=== PATIENT | female | born 1970 | race Caucasian/White ===

== ENCOUNTER → 2018-03-03 11:11 | Outpatient (CLI) | payer MEDICAID, SELFPAY ==
[2018-03-03 12:26] LABS: Absolute Lymphocyte Count 2.77 X10^3/ul (0.83-4.51); Absolute Neutrophil Count 4.1 X10^3/uL (2.0-7.7); Basophil# 0.03 X10^3/uL; Basophil% 0.4 % (0-1); Eosinophils% 2.6 % (0-5); Hematocrit 44.7 % (37-47); Lymphocyte # 2.77 X10^3/ul (4.0); Mean Corp Hgb Conc 33.6 g/gl (32-36); Mean Corpuscular Hgb 34.4 pg (27.0-32.0); Mean Corpuscular Volume 102.5 fL (81-99); Mean Platelet Vol. 11.5 fl (6.2-12.0); Monocyte# 0.61 X10^3/uL; Monocyte% 7.9 % (0-10); Neutrophil # 4.08 X10^3/uL (2.7-7.7); Platelet Count 214 K/mm3 (150-450); RBC Distribution Width CV 12.7 % (11.6-14.6); RBC Distribution Width SD 47.1 fl (35.1-43.9); Red Blood Count 4.36 M/mm3 (4.2-5.4); White Blood Count 7.7 K/mm3 (4.4-11.0)
[2018-03-03 12:33] LABS: POSITIVE COUNT NO; POSITIVE DIFFERENTIAL NO; POSITIVE MORPHOLOGY NO
[2018-03-03 12:40] LABS: Color, Urine Yellow (Yellow); Glucose, Dipstick Normal (Normal); Ketone-Dipstick Negative (Negative); Leukocyte Esterase-Dipstick 25 /ul (Negative); Nitrite-Dipstick Negative (Negative); Occult Blood-Urine 10 /ul (Negative); Protein-Dipstick 15 mg/dl (Negative); Urine Bilirubin Dipstick Negative (Negative); Urine Clarity Clear (Clear); Urine Urobilinogen Normal (Normal); Urine pH 6.5 (5.0 - 8.0)
[2018-03-03 12:42] LABS: ALB/GLOB Ratio 0.9 RATIO (0.9-2.4); AST(SGOT) 17 U/L (15-37); Alanine Aminotransfer ALT/SGPT 16 U/L (13-56); Albumin, Serum 3.7 g/dL (3.2-5.0); Alkaline Phosphatase 80 U/L (45-117); Anion Gap 7 (5-15); BUN 15 mg/dL (7-18); Calcium,Total 9.1 mg/dL (8.5-10.1); Chloride 106 mmol/L (98-107); Cholesterol 137 mg/dL (200); EST Glomerular Filtration Rate 63 mL/min (>60); Est Glom Filt Rate - Afr Amer 76 mL/min (>60); Glucose 70 mg/dL (74-106); High Density Lipoprotein 46 mg/dL; Potassium 3.8 mmol/L (3.5-5.1); Protein, Total 7.7 g/dL (6.4-8.2); Sodium Level 142 mmol/L (136-145); Triglycerides 150 mg/dL; Very Low Density Lipoprotein 30 mg/dL (5-40)
[2018-03-03 14:18] LABS: Chlamydia Trachomatis by PCR Negative (Negative); Neisserai gonorrhoeae by PCR Negative (Negative); Probe Check PASS; Sample Adequacy Control PASS; Specimen Processing Control PASS
[2018-03-04 08:13] LABS: HEPATITIS B SURFACE AG Negative (Negative); Hepatitis A AB, Total Negative (Negative); Hepatitis A IgM Antibody Negative (Negative); Hepatitis B Core AB IgM Negative (Negative); Hepatitis B Core Ab Total Positive (Negative); Hepatitis C Ab <0.1 s/co ratio (0.0-0.9)
[2018-03-04 08:40] LABS: Hep B Surface Antibodies Reactive (.)
[2018-03-10 03:58] LABS: Rapid Plasmin Reagin (RPR) NONREACTIVE (NONREACTIVE)
== END ==
PROVIDERS: Family Provider Internal Medicine Infectious Disease; PCP Internal Medicine Infectious Disease; Visit Provider Internal Medicine Infectious Disease
DX: E78.5 Hyperlipidemia, unspecified (principal); B20 Human immunodeficiency virus [HIV] disease
CPT/HCPCS: 36415; 80053; 80061; 81002; 85025; 86592; 86704; 86705; 86706; 86708; 86709; 86803; 87340; 87491; 87536; 87591

== ENCOUNTER 2018-09-16 10:51 | Emergency (ER) | payer MEDICAID, SELFPAY ==
[2018-09-16 10:52] VITALS: BP 101/75; PULSE 96; RESP 14; TEMP 37.9; O2SAT 98
--- NOTE | 2018-09-16 11:05 | EKG12_ITS ---
Test Reason : NAUSEA Blood Pressure : / mmHG Vent. Rate : 112 BPM Atrial Rate : 112 BPM P-R Int : 130 ms QRS Dur : 076 ms QT Int : 324 ms P-R-T Axes : 086 091 090 degrees QTc Int : 442 ms Sinus tachycardia Rightward axis Borderline ECG Confirmed by VINNY CHAUDHRY, ISABELLE ([id number]), fan mail editor LEIDY FRANKLIN ([id number]) on 09/18/2018 2:12:20 PM Referred By: Confirmed By:ISABELLE CASILLAS MD
--- NOTE | 2018-09-16 11:05 | RAD_ITS ---
STUDY: X-RAY CHEST REASON FOR EXAM: Female, 48 years old. Cough TECHNIQUE: Single AP portable view of the chest. COMPARISON: None. FINDINGS: The lungs are clear but hyper expanded. There is no demonstrated pleural abnormality. Normal size heart. Normal mediastinum and vianey. Normal visualized pulmonary arteries. Normal visualized aortic arch and descending thoracic aorta. Normal visualized thoracic spine. Normal visualized ribs, clavicles, and shoulders. There is no demonstrated abnormality of the visualized soft tissue structures of the upper abdomen. RAD/Chest 1 View (Portable) IMPRESSION: No airspace consolidation or pleural effusion. Hyperinflation can suggest chronic obstructive airway disease. Electronically Signed: Dharmesh Cho MD at 11:38 EST , Service support ,
--- NOTE | 2018-09-16 11:07 | ED.VISSUMM ---
- ER Visit Summary Date of Service: 09/16/18 Chief Complaint: Flulike symptoms History of Present Illness: The patient is a 48 F presenting with flulike symptoms. Patient states she has been ill since Tuesday. She has had subjective fever, chills. She has a productive cough. She has nausea with no vomiting. She has diffuse myalgias. She denies shortness of breath. She has chest pain only when she coughs. She also complains of right ear pain. She does have sick contacts. She is HIV positive with undetectable viral load per patient. Physical Examination: Vitals are stable. Temperature 100.3. Alert no acute distress. HEENT exam is unremarkable. TMs obscured by cerumen bilaterally Neck is supple. No meningismus Lungs are clear and equal bilaterally. Heart is regular rate and rhythm. Abdomen is soft nontender nondistended. Extremities are unremarkable. Skin is warm and dry. No rash Remainder of exam is unremarkable. Emergency Department Course and Treatment: Patient was given IV fluids, Zofran, Tylenol. EKG sinus tachycardia rate of 112. CBC normal except white count 3.8, platelet 102. Patient is advised of this finding and need for follow-up. Chemistries unremarkable. Troponin negative. Chest x-ray shows no airspace consolidation or pleural effusion. Hyperinflation can suggest chronic obstructive airway disease. Influenza A positive. On reevaluation, patient is resting comfortably. She is given a prescription for Tessalon Perles. She is advised to follow-up with her primary care physician. Advised return to ED if worsening complaints. Disposition: Discharge home Impression: Influenza This note was generated with [employer] dictation software. It may contain incorrect words, spelling, and punctuation that were not noted in review of the chart prior to signing ED Disposition - Plan for ED Patient: Instructions: ED Flu Prescriptions: Benzonatate [Tessalon Perle] 200 mg PO TID PRN PRN #20 capsule PRN Reason: Cough Referrals: Epi Mcdonald MD [Primary Care Provider] -
[2018-09-16] MEDS: 0.9% Normal Saline 1,000 ML 1000 ML IV (11:16)
[2018-09-16] MEDS: Ondansetron 4 MG/2 ML Vial IV (11:17)
[2018-09-16] MEDS: Ibuprofen 600 MG Tablet PO (11:43)
[2018-09-16 11:44] LABS: Absolute Neutrophil Count 2.8 X10^3/uL (2.0-7.7); Basophil# 0.01 X10^3/uL; Basophil% 0.3 % (0-1); Eosinophil# 0.02 X10^3/uL; Eosinophils% 0.5 % (0-5); Hematocrit 44.7 % (37-47); Hemoglobin 14.7 g/dl (12.0-15.0); Lymphocyte % 15.9 % (19-41); Mean Corp Hgb Conc 32.9 g/gl (32-36); Mean Corpuscular Hgb 33.9 pg (27.0-32.0); Monocyte% 10.6 % (0-10); Neutrophil # 2.75 X10^3/uL (2.7-7.7); Neutrophil % 72.7 % (47-70); Platelet Count 102 K/mm3 (150-450); RBC Distribution Width CV 13.4 % (11.6-14.6); RBC Distribution Width SD 50.4 fl (35.1-43.9); Red Blood Count 4.34 M/mm3 (4.2-5.4); White Blood Count 3.8 K/mm3 (4.4-11.0)
[2018-09-16 11:45] LABS: Differential Indicated SCAN CRITERIA MET; POSITIVE COUNT NO; POSITIVE DIFFERENTIAL YES; POSITIVE MORPHOLOGY NO
[2018-09-16 11:50] LABS: Anion Gap 6 (5-15); BUN 19 mg/dL (7-18); BUN/Creat Ratio 19.3 RATIO (10-20); Calcium,Total 8.1 mg/dL (8.5-10.1); Chloride 109 mmol/L (98-107); Creatinine, Serum 0.98 mg/dL (0.55-1.02); EST Glomerular Filtration Rate 63 mL/min (>60); Est Glom Filt Rate - Afr Amer 77 mL/min (>60); Estimated Creatinine Clearance 57.57 ml/min; Glucose 93 mg/dL (74-106); Potassium 3.8 mmol/L (3.5-5.1); Sodium Level 138 mmol/L (136-145)
[2018-09-16 11:53] LABS: Differential Comment SCANNED
--- NOTE | 2018-09-16 11:56 | ED.RN ---
pos flu a called from the lab. dr tripp aware
--- NOTE | 2018-09-16 12:06 | ED.DEP ---
ED Disposition - Plan for ED Patient: Instructions: ED Flu Prescriptions: Benzonatate [Tessalon Perle] 200 mg PO TID PRN PRN #20 capsule PRN Reason: Cough Referrals: Epi Mcdonald MD [Primary Care Provider] -
[2018-09-16 12:31] VITALS: BP 102/66; PULSE 100; PULSE 101; RESP 16; TEMP 37.6; O2SAT 97; O2SAT 98
== END 2018-09-16 12:35 | disposition home or self-care (01) ==
PROVIDERS: Emergency Provider Emergency Medicine; Family Provider Internal Medicine Infectious Disease; PCP Internal Medicine Infectious Disease
DX: J11.1 Influenza due to unidentified influenza virus with other respiratory manifestations (principal); Z72.0 Tobacco use; Z21 Asymptomatic human immunodeficiency virus [HIV] infection status
CPT/HCPCS: 71045; 80048; 84484; 85025; 87804; 93005; 96361; 96374; 99285; J7030; J2405

== ENCOUNTER 2018-11-25 13:11 | Emergency (ER) | payer MEDICAID, SELFPAY ==
[2018-11-25 13:12] VITALS: BP 105/80; PULSE 110; RESP 16; TEMP 36.7; O2SAT 100; BMI 19.2
--- NOTE | 2018-11-25 13:41 | RAD_ITS ---
STUDY: X-RAY - LEFT SHOULDER REASON FOR EXAM: Female, 48 years old. Fall. Pain and swelling. TECHNIQUE: 4 view(s) of the shoulder. COMPARISON: None. FINDINGS: Normal glenohumeral articulation. Normal acromioclavicular joint. Normal acromion. Normal humeral head and visualized proximal humerus. There is acute distal clavicle fracture with inferior angulation of the distal fragment. The soft tissue structures are unremarkable. Normal visualized pulmonary apex. RAD/Shoulder min 2 Views IMPRESSION: Distal clavicle fracture. Electronically Signed: Bruce Plummer MD at 15:07 EDT , Service support ,
--- NOTE | 2018-11-25 14:25 | ED.DCSUM_ITS ---
- ER Visit Summary Date of Service: 11/25/18 Chief Complaint: Fall History of Present Illness: The patient is a 48 F presenting after fall. Patient states this occurred last night. She states she tripped on uneven sidewalk and fell onto her left shoulder. She does not believe she hit her head or lost consciousness. She was drinking at the time. She tried no medications at home. She is not on anticoagulants. She denies headache. She complains of left shoulder pain that is worse with movement. Denies other complaints. Physical Examination: Vitals are stable. Patient is afebrile. Alert no acute distress. HEENT exam is unremarkable. No evidence of head trauma Neck is supple. Nontender Lungs are clear and equal bilaterally. Heart is regular rate and rhythm. Abdomen is soft nontender nondistended. Extremities left shoulder ecchymosis and painful range of motion. No deformity. NVID. Skin is warm and dry. No focal neurologic deficit. Remainder of exam is unremarkable. Emergency Department Course and Treatment: Left shoulder x-ray shows distal clavicle fracture. Patient was given a sling. She is given prescription for Naprosyn. Advised to follow-up with her primary care physician. Advised return to ED for worsening complaints Disposition: Discharge home Impression: Left distal clavicle fracture This note was generated with [employer] dictation software. It may contain incorrect words, spelling, and punctuation that were not noted in review of the chart prior to signing ED Disposition - Plan for ED Patient: Disposition: Home or Assisted Living Instructions: ED Fx Clavicle Prescriptions: Naproxen [Naprosyn] 500 mg PO BID PRN #20 tablet Referrals: Epi Mcdonald MD [Primary Care Provider] - Ranjith Thompson MD [STAFF PHYSICIAN] -
--- NOTE | 2018-11-25 15:06 | ED.DEP ---
ED Disposition - Plan for ED Patient: Instructions: ED Fx Clavicle Prescriptions: Naproxen [Naprosyn] 500 mg PO BID PRN #20 tablet Referrals: Epi Mcdonald MD [Primary Care Provider] -
--- NOTE | 2018-11-25 15:09 | ED.DEP ---
ED Disposition - Plan for ED Patient: Instructions: ED Fx Clavicle Prescriptions: Naproxen [Naprosyn] 500 mg PO BID PRN #20 tablet Referrals: Epi Mcdonald MD [Primary Care Provider] - Ranjith Thompson MD [STAFF PHYSICIAN] -
[2018-11-25 15:17] VITALS: RESP 18
== END 2018-11-25 15:18 | disposition home or self-care (01) ==
LOC: ED 14:05
PROVIDERS: Emergency Provider Emergency Medicine; Family Provider Internal Medicine Infectious Disease; PCP Internal Medicine Infectious Disease
DX: S42.032A Displaced fracture of lateral end of left clavicle, initial encounter for closed fracture (principal); W18.09XA Striking against other object with subsequent fall, initial encounter; Y93.9 Activity, unspecified; Y92.480 Sidewalk as the place of occurrence of the external cause; Y99.9 Unspecified external cause status; Z72.0 Tobacco use
CPT/HCPCS: 73030; 99283

== ENCOUNTER → 2019-01-24 10:10 | Outpatient (CLI) | payer MEDICAID, SELFPAY ==
[2019-01-24 11:29] LABS: Hematocrit 45.3 % (37-47); Hemoglobin 14.9 g/dl (12.0-15.0); Mean Corp Hgb Conc 32.9 g/gl (32-36); Mean Corpuscular Hgb 33.3 pg (27.0-32.0); Mean Corpuscular Volume 101.3 fL (81-99); Mean Platelet Vol. 11.5 fl (6.2-12.0); Platelet Count 174 K/mm3 (150-450); RBC Distribution Width CV 12.7 % (11.6-14.6); RBC Distribution Width SD 46.9 fl (35.1-43.9); Red Blood Count 4.47 M/mm3 (4.2-5.4); White Blood Count 4.8 K/mm3 (4.4-11.0)
[2019-01-24 11:31] LABS: Scan Indicated on CBC? Y/N NO
[2019-01-24 12:00] LABS: AST(SGOT) 20 U/L (15-37); Alanine Aminotransfer ALT/SGPT 16 U/L (13-56); Albumin, Serum 3.6 g/dL (3.2-5.0); Alkaline Phosphatase 76 U/L (45-117); Anion Gap 4 (5-15); BUN 11 mg/dL (7-18); BUN/Creat Ratio 10.1 RATIO (10-20); Bilirubin, Direct 0.07 mg/dL (0.00-0.30); Calcium,Total 8.9 mg/dL (8.5-10.1); Chloride 108 mmol/L (98-107); Creatinine, Serum 1.09 mg/dL (0.55-1.02); EST Glomerular Filtration Rate 56 mL/min (>60); Est Glom Filt Rate - Afr Amer 68 mL/min (>60); Globulin 3.8 g/dL (2.2-4.2); Glucose 62 mg/dL (74-106); Potassium 4.2 mmol/L (3.5-5.1); Protein, Total 7.4 g/dL (6.4-8.2); Sodium Level 141 mmol/L (136-145)
[2019-01-26 18:10] LABS: HIV-1 RNA by PCR, Quant. < 20 copies/mL (.)
[2019-01-27 08:13] LABS: Absolute CD4 Helper 846 /uL (359-1519); Basophils (Absolute) 0 x10E3/uL (0.0-0.2); CD4/CD8 Ratio 1.61 (0.92-3.72); Eosinophils 3 % (Not Estab.); Eosinophils (Absolute) 0.1 x10E3/uL (0.0-0.4); Hematocrit 43.9 % (34.0-46.6); Immature Granulocytes 0 % (Not Estab.); Immature Granulocytes Absolute 0 x10E3/uL (0.0-0.1); Lymphs 40 % (Not Estab.); Lymphs (Absolute) 1.8 x10E3/uL (0.7-3.1); MCH 34.4 pg (26.6-33.0); MCHC 34.2 g/dL (31.5-35.7); MCV 101 fL (79-97); Monocytes 8 % (Not Estab.); Monocytes (Absolute) 0.4 x10E3/uL (0.1-0.9); Neutrophils 49 % (Not Estab.); Neutrophils (Absolute) 2.2 x10E3/uL (1.4-7.0); Percent % CD8 Pos. Lymph. 29.2 % (12.0-35.5); Platelets 217 x10E3/uL (150-450); QNTFERON TB Mitogen Value > 10.00 IU/mL (.); QNTFERON TB Nil Value 0.05 IU/mL (.); QNTFERON TB1+ Ag Value 0.03 IU/mL (.); QNTFERON TB2+ Ag Value 0.02 IU/mL (.); RBC Count 4.36 x10E6/uL (3.77-5.28); RDW 13.1 % (12.3-15.4); WBC Count 4.6 x10E3/uL (3.4-10.8)
[2019-01-28 14:00] LABS: QNTIFERON TB Positive Criteria Negative (Negative)
== END ==
PROVIDERS: Family Provider Internal Medicine Infectious Disease; PCP Internal Medicine Infectious Disease; Referring Provider Internal Medicine Infectious Disease; Visit Provider Internal Medicine Infectious Disease
DX: B20 Human immunodeficiency virus [HIV] disease (principal)
CPT/HCPCS: 36415; 80048; 80076; 85027; 86360; 86480; 87536

== ENCOUNTER 2019-05-15 11:37 | Emergency (ER) | payer MEDICAID, SELFPAY ==
[2019-05-15 11:38] VITALS: BP 106/82; PULSE 89; RESP 16; TEMP 36.6; O2SAT 99; BMI 21.0
--- NOTE | 2019-05-15 12:13 | EKG12_ITS ---
Test Reason : GEN ILLNESS Blood Pressure : / mmHG Vent. Rate : 070 BPM Atrial Rate : 070 BPM P-R Int : 144 ms QRS Dur : 084 ms QT Int : 412 ms P-R-T Axes : 072 070 057 degrees QTc Int : 444 ms Normal sinus rhythm Normal ECG Confirmed by NELSON BLOUNT ([id number]), copy editor JASON MCCLENDON ([id number]) on 05/21/2019 8:56:51 AM Referred By: JOSUÉ Confirmed By:NELSON BLOUNT
--- NOTE | 2019-05-15 12:13 | ED.VIS.GEN ---
History of Present Illness Chief Complaint: General Illness Informant: Patient Onset: Today Timing: Continuous Current Severity: Moderate Maximum Severity: Moderate Narrative: Patient is HIV positive, she woke up this morning with a slight headache, she had dry mouth weak and felt slightly lightheaded. She denies any fever or chills, she has a chronic cough but she has no shortness of breath. She has no abdominal pain, nausea or vomiting. She denies any chest pain. She took ibuprofen and now her headache is gone but she still has dry mouth and wants this evaluated. Past Medical History - Allergies and Home Meds Allergies/Adverse Reactions: Allergies No Known Allergies Allergy (Verified 05/15/19 11:38) Primary Care Physician: Epi Mcdonald MD [STAFF PHYSICIAN] - Past Medical History: - - HIV Smoking Status: Current some day smoker Review of Systems All systems negative except as indicated General: Denies: Fever Eyes: Denies: Visual changes - left Cardiovascular: Denies: Chest pain Respiratory: Reports: Cough. Denies: Dyspnea, Sputum Gastrointestinal: Denies: Abdominal pain, Nausea, Vomiting Musculoskeletal: Denies: Myalgias, Neck pain Skin: Denies: Rash Neurological: Reports: - - Headache which is now gone Hematologic: Denies: Easy bruising Physical Exam Vital Signs/Narrative: Vital Signs Temp Pulse Resp BP Pulse Ox 05/15/19 11:38 97.8 F 89 16 106/82 H 99 General: Well nourished Eyes: Perrl, EOMI ENT: Moist mucous membranes Cardiovascular: Regular rate, Regular rhythm Respiratory: No distress, CTA bilaterally Abdomen: Soft, Nontender Back: Nontender, Normal Inspection Extremities: Nontender, No edema Skin: Normal color Neurological: Alert, Oriented x3, Cranial nerves II-XII grossly intact, Normal Strength, Normal Sensation Diagnostic/Tx/Re-eval - Rhythm Strip Rhythm Strip: Sinus Rhythm Rate: 70 Ectopy: None - EKG Initial EKG Interpretation: Sinus Rhythm, No Acute Injury Pattern, - - Normal NE normal QTC intervals. No ischemic changes Interpreted by emergency doctor - Medical Decision Making She has a normal work-up she is hydrated. I reevaluated her, initially she did not tell me about this and I did not evaluate her mouth but after I did does have widespread decay, she has some gingivitis. I encouraged brushing I do not see a reason for antibiotics. Discharge stable condition ED Disposition - Plan for ED Patient: Disposition: Home or Assisted Living Diagnosis: Dehydration Instructions: Dehydration Referrals: Epi Mcdonald MD [STAFF PHYSICIAN] - 3-5 Days
--- NOTE | 2019-05-15 12:15 | RAD_ITS ---
STUDY: X-RAY CHEST REASON FOR EXAM: Female, 49 years old. Cough TECHNIQUE: Single AP portable view of the chest. COMPARISON: 09/16/2018 FINDINGS: The lungs are clear and expanded. There is no demonstrated pleural abnormality. Normal size heart. Normal mediastinum and vianey. Normal visualized pulmonary arteries. Normal visualized aortic arch and descending thoracic aorta. Normal visualized thoracic spine. Normal visualized ribs, clavicles, and shoulders. There is no demonstrated abnormality of the visualized soft tissue structures of the upper abdomen. RAD/Chest 1 View (Portable) IMPRESSION: Normal x-ray examination of the chest. Electronically Signed: Maldonado Maynard MD at 12:42 EDT Tel , Service support ,
[2019-05-15] MEDS: 0.9% Normal Saline 1,000 ML 1000 ML IV (12:39)
[2019-05-15 12:41] LABS: Absolute Lymphocyte Count 1.35 X10^3/uL (0.83-4.51); Absolute Neutrophil Count 4.1 X10^3/uL (2.0-7.7); Basophil# 0.04 X10^3/uL; Basophil% 0.7 % (0-1); Eosinophil# 0.09 X10^3/uL; Eosinophils% 1.5 % (0-5); Hemoglobin 13.5 g/dL (12.0-15.0); Lymphocyte # 1.35 X10^3/ul (4.0); Lymphocyte % 22.8 % (19-41); Mean Corp Hgb Conc 32.9 g/dL (32-36); Mean Corpuscular Volume 103.3 fL (81-99); Mean Platelet Vol. 10.9 fl (6.2-12.0); Monocyte# 0.28 X10^3/uL; Monocyte% 4.7 % (0-10); NRBC Flagged by Analyzer 0 % (0-5); Neutrophil # 4.13 X10^3/uL (2.7-7.7); Platelet Count 153 K/mm3 (150-450); RBC Distribution Width CV 12.4 % (11.6-14.6); RBC Distribution Width SD 47.2 fl (35.1-43.9); Red Blood Count 3.97 M/mm3 (4.2-5.4); White Blood Count 5.9 K/mm3 (4.4-11.0)
[2019-05-15 12:58] LABS: AST(SGOT) 17 U/L (15-37); Alanine Aminotransfer ALT/SGPT 17 U/L (13-56); Albumin, Serum 3.7 g/dL (3.2-5.0); Alkaline Phosphatase 75 U/L (45-117); Anion Gap 7 (5-15); BUN 12 mg/dL (7-18); BUN/Creat Ratio 13.8 RATIO (10-20); Calcium,Total 8.9 mg/dL (8.5-10.1); Chloride 104 mmol/L (98-107); Creatinine, Serum 0.87 mg/dL (0.55-1.02); EST Glomerular Filtration Rate 73 mL/min (>60); Est Glom Filt Rate - Afr Amer 88 mL/min (>60); Estimated Creatinine Clearance 60.51 ml/min; Globulin 3.6 g/dL (2.2-4.2); Glucose 97 mg/dL (74-106); Potassium 3.6 mmol/L (3.5-5.1); Protein, Total 7.3 g/dL (6.4-8.2); Sodium Level 140 mmol/L (136-145)
[2019-05-15 13:38] VITALS: RESP 16
== END 2019-05-15 14:10 | disposition home or self-care (01) ==
PROVIDERS: Emergency Provider Emergency Medicine; Family Provider Nurse Practitioner Primary Care; PCP Nurse Practitioner Primary Care
DX: E86.0 Dehydration (principal); Z21 Asymptomatic human immunodeficiency virus [HIV] infection status; F17.200 Nicotine dependence, unspecified, uncomplicated
CPT/HCPCS: 71045; 80053; 84484; 85025; 93005; 99283; J7030; A4216

== ENCOUNTER → 2019-08-17 13:26 | Outpatient (CLI) | payer MEDICAID, SELFPAY ==
[2019-08-17 14:28] LABS: Hematocrit 42.6 % (37-47); Hemoglobin 14.2 g/dL (12.0-15.0); Mean Corp Hgb Conc 33.3 g/dL (32-36); Mean Corpuscular Hgb 34.3 pg (27.0-32.0); Mean Corpuscular Volume 102.9 fL (81-99); Mean Platelet Vol. 10.9 fl (6.2-12.0); Platelet Count 203 K/mm3 (150-450); RBC Distribution Width CV 11.9 % (11.6-14.6); RBC Distribution Width SD 45.8 fl (35.1-43.9); Red Blood Count 4.14 M/mm3 (4.2-5.4); White Blood Count 5.3 K/mm3 (4.4-11.0)
[2019-08-17 14:47] LABS: Color, Urine Yellow (Yellow); Glucose, Dipstick Normal (Normal); Ketone-Dipstick Negative (Negative); Leukocyte Esterase-Dipstick Negative /ul (Negative); Nitrite-Dipstick Negative (Negative); Occult Blood-Urine 10 /ul (Negative); Protein-Dipstick 15 mg/dl (Negative); Specific Gravity, Urine 1.015 (1.002-1.030); Urine Bilirubin Dipstick Negative (Negative); Urine Clarity Clear (Clear); Urine Urobilinogen Normal (Normal)
[2019-08-17 15:00] LABS: AST(SGOT) 20 U/L (15-37); Alanine Aminotransfer ALT/SGPT 19 U/L (13-56); Albumin, Serum 3.8 g/dL (3.2-5.0); Alkaline Phosphatase 91 U/L (45-117); Anion Gap 3 (5-15); BUN 16 mg/dL (7-18); Bilirubin, Direct 0.13 mg/dL (0.00-0.30); Calcium,Total 9.1 mg/dL (8.5-10.1); Chloride 107 mmol/L (98-107); Creatinine, Serum 1.07 mg/dL (0.55-1.02); EST Glomerular Filtration Rate 57 mL/min (>60); Est Glom Filt Rate - Afr Amer 69 mL/min (>60); Globulin 3.5 g/dL (2.2-4.2); Glucose 87 mg/dL (74-106); Potassium 3.9 mmol/L (3.5-5.1); Protein, Total 7.3 g/dL (6.4-8.2); Sodium Level 139 mmol/L (136-145)
[2019-08-18 12:07] LABS: Absolute CD4 Helper 941 /uL (359-1519); Basophils (Absolute) 0.1 x10E3/uL (0.0-0.2); Eosinophils 2 % (Not Estab.); Eosinophils (Absolute) 0.1 x10E3/uL (0.0-0.4); Hematocrit 43.1 % (34.0-46.6); Hemoglobin 13.8 g/dL (11.1-15.9); Immature Granulocytes 0 % (Not Estab.); Lymphs 36 % (Not Estab.); Lymphs (Absolute) 1.9 x10E3/uL (0.7-3.1); MCH 32.5 pg (26.6-33.0); MCV 102 fL (79-97); Monocytes 7 % (Not Estab.); Monocytes (Absolute) 0.3 x10E3/uL (0.1-0.9); Neutrophils 54 % (Not Estab.); Neutrophils (Absolute) 2.8 x10E3/uL (1.4-7.0); Percent % CD4 Pos. Lymph. 49.5 % (30.8-58.5); Platelets 212 x10E3/uL (150-450); RBC Count 4.24 x10E6/uL (3.77-5.28); RDW 11.8 % (11.7-15.4); WBC Count 5.1 x10E3/uL (3.4-10.8)
[2019-08-18 17:44] LABS: Immature Granulocytes Absolute 0 x10E3/uL (0.0-0.1)
[2019-08-22 13:53] LABS: HIV-1 RNA by PCR, Quant. < 20 copies/mL (.)
== END ==
PROVIDERS: PCP Nurse Practitioner Primary Care; Referring Provider Internal Medicine Infectious Disease; Visit Provider Internal Medicine Infectious Disease
DX: B20 Human immunodeficiency virus [HIV] disease (principal)
CPT/HCPCS: 36415; 80048; 80076; 81002; 85027; 86361; 87536

== ENCOUNTER → 2020-09-24 12:28 | Outpatient (CLI) | payer MEDICAID, SELFPAY ==
[2020-09-24 13:45] LABS: Hematocrit 43.7 % (37-47); Hemoglobin 14.4 g/dL (12.0-15.0); Mean Corpuscular Hgb 34.7 pg (27.0-32.0); Mean Corpuscular Volume 105.3 fL (81-99); Mean Platelet Vol. 11.6 fl (6.2-12.0); Platelet Count 212 K/mm3 (150-450); RBC Distribution Width CV 12.2 % (11.6-14.6); RBC Distribution Width SD 48.2 fl (35.1-43.9); Red Blood Count 4.15 M/mm3 (4.2-5.4); White Blood Count 5.6 K/mm3 (4.4-11.0)
[2020-09-24 14:06] LABS: Anion Gap 4 (5-15); BUN 8 mg/dL (7-18); BUN/Creat Ratio 8.3 RATIO (10-20); Calcium,Total 8.9 mg/dL (8.5-10.1); Chloride 109 mmol/L (98-107); Creatinine, Serum 0.96 mg/dL (0.55-1.02); EST Glomerular Filtration Rate 64 mL/min (>60); Est Glom Filt Rate - Afr Amer 78 mL/min (>60); Glucose 88 mg/dL (74-106); Potassium 3.5 mmol/L (3.5-5.1); Sodium Level 144 mmol/L (136-145)
[2020-09-26 16:09] LABS: Absolute CD4 Helper 823 /uL (359-1519); Basophils (Absolute) 0.1 x10E3/uL (0.0-0.2); Eosinophils 2 % (Not Estab.); Eosinophils (Absolute) 0.1 x10E3/uL (0.0-0.4); Hematocrit 43.6 % (34.0-46.6); Hemoglobin 14.5 g/dL (11.1-15.9); Immature Granulocytes 0 % (Not Estab.); Immature Granulocytes Absolute 0 x10E3/uL (0.0-0.1); Lymphs 31 % (Not Estab.); Lymphs (Absolute) 1.7 x10E3/uL (0.7-3.1); MCH 34.4 pg (26.6-33.0); MCHC 33.3 g/dL (31.5-35.7); MCV 103 fL (79-97); Monocytes 7 % (Not Estab.); Monocytes (Absolute) 0.4 x10E3/uL (0.1-0.9); Neutrophils 59 % (Not Estab.); Neutrophils (Absolute) 3.2 x10E3/uL (1.4-7.0); Percent % CD4 Pos. Lymph. 48.4 % (30.8-58.5); Platelets 211 x10E3/uL (150-450); RBC Count 4.22 x10E6/uL (3.77-5.28); RDW 12.2 % (11.7-15.4); WBC Count 5.5 x10E3/uL (3.4-10.8)
[2020-09-27 14:45] LABS: HIV-1 RNA by PCR, Quant. < 20 copies/mL (.)
== END ==
PROVIDERS: PCP Family Medicine; Visit Provider Internal Medicine Infectious Disease
DX: B20 Human immunodeficiency virus [HIV] disease (principal)
CPT/HCPCS: 36415; 80048; 85027; 86361; 87536

== ENCOUNTER → 2022-01-26 | Outpatient (CLI) | payer MEDICAID, SELFPAY ==
[2022-01-26 13:15] LABS: AST(SGOT) 16 U/L (15-37); Alanine Aminotransfer ALT/SGPT 18 U/L (13-56); Albumin, Serum 3.6 g/dL (3.2-5.0); Alkaline Phosphatase 58 U/L (45-117); Anion Gap 5 (5-15); BUN 10 mg/dL (7-18); Calcium,Total 8.8 mg/dL (8.5-10.1); Chloride 107 mmol/L (98-107); Cholesterol 137 mg/dL (200); EST Glomerular Filtration Rate 62 mL/min (>60); Est Glom Filt Rate - Afr Amer 74 mL/min (>60); Globulin 3.5 g/dL (2.2-4.2); Glucose 73 mg/dL (74-106); High Density Lipoprotein 59 mg/dL; Potassium 3.9 mmol/L (3.5-5.1); Protein, Total 7.1 g/dL (6.4-8.2); Sodium Level 140 mmol/L (136-145); Triglycerides 112 mg/dL; Very Low Density Lipoprotein 22 mg/dL (5-40)
[2022-01-26 14:58] LABS: Absolute Lymphocyte Count 2.67 X10^3/uL (0.83-4.51); Absolute Neutrophil Count 3.9 X10^3/uL (2.0-7.7); Basophil# 0.05 X10^3/uL; Basophil% 0.7 % (0-1); Eosinophil# 0.24 X10^3/uL; Eosinophils% 3.3 % (0-5); Hematocrit 40.5 % (37-47); Hemoglobin 13.6 g/dL (12.0-15.0); Lymphocyte # 2.67 X10^3/ul (0.83-4.51); Lymphocyte % 36.6 % (19-41); Mean Corp Hgb Conc 33.6 g/dL (32-36); Mean Corpuscular Hgb 35.2 pg (27.0-32.0); Mean Corpuscular Volume 104.9 fL (81-99); Mean Platelet Vol. 11.2 fl (6.2-12.0); Monocyte% 5.5 % (0-10); NRBC Flagged by Analyzer 0 % (0-5); Neutrophil # 3.91 X10^3/uL (2.7-7.7); Neutrophil % 53.6 % (47-70); Platelet Count 213 K/mm3 (150-450); RBC Distribution Width CV 12.8 % (11.6-14.6); RBC Distribution Width SD 49.5 fl (35.1-43.9); Red Blood Count 3.86 M/mm3 (4.2-5.4); White Blood Count 7.3 K/mm3 (4.4-11.0)
[2022-01-26 20:06] LABS: Chlamydia Trachomatis by PCR Negative (Negative); Neisserai gonorrhoeae by PCR Negative (Negative); Probe Check PASS; Sample Adequacy Control PASS; Specimen Processing Control PASS
[2022-01-27 08:20] LABS: Hepatitis C Antibody Non-Reactive (Nonreactive); Syphilis Antibodies Non-reactive
[2022-01-29 20:23] LABS: HIV-1 RNA by PCR, Quant. < 20 copies/mL (.)
== END | disposition home or self-care (01) ==
PROVIDERS: PCP Family Medicine; Visit Provider Internal Medicine Infectious Disease
DX: B20 Human immunodeficiency virus [HIV] disease (principal)
CPT/HCPCS: 36415; 80053; 80061; 85025; 86780; 86803; 87491; 87536; 87591

== ENCOUNTER 2022-03-18 09:48 | Emergency (ER) | payer MEDICAID, SELFPAY ==
[2022-03-18 09:48] VITALS: BP 150/89; PULSE 90; RESP 18; TEMP 36.6; O2SAT 100
--- NOTE | 2022-03-18 09:59 | EDS_ITS ---
HPI History of Present Illness Chief Complaint: Cold Sx Detail of Chief Complaint: Cough and cold symptoms for 3 days Informant: patient Narrative Narrative: Patient presents the emergency department complaint of cough and congestion for the last 3 days. Cough is productive of green sputum at times. She denies fever although she has had sweats. Patient complains of some body aches. She denies headache. She did have a sore throat but that is now resolved. Patient has had the COVID-vaccine and 2 boosters. 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 She denies chest pain or dyspnea. Prior similar symptoms: Yes [facility] Medical History (Updated 03/18/22 @ 11:[address] Chris Castillo, DO) HIV (human immunodeficiency virus infection) Home Medications naproxen 500 mg tablet 500 mg PO BID PRN #20 tabs 11/25/18 [Rx Last Taken Unknown] doxycycline monohydrate 100 mg capsule 100 mg PO BID #20 CAPSULES 03/18/22 [Rx Last Taken Unknown] Allergy/AdvReac Type Severity Reaction Status Date / Time house dust Allergy Shortness Verified 03/18/22 09:52 of breath Social History Smoking Status: Current every day smoker tobacco type: cigarettes ROS ROS ED Review of Systems ROS Unobtainable: other Constitutional Constitutional ED: Reports lethargy; Denies chills, fever(s), sweats or weight loss Eyes Eyes: Denies blurry vision, change in vision or diplopia ENT ENT ED: Denies rhinorrhea or sore throat Cardiovascular Cardiovascular: Denies chest pain, orthopnea or racing heartbeat Respiratory/Chest Respiratory/Chest: Reports cough and sputum; Denies dyspnea, dyspnea on exertion or orthopnea Gastrointestinal Gastrointestinal: Denies abdominal pain, diarrhea, nausea or vomiting Genitourinary Genitourinary ED: Denies dysuria, hematuria or urinary frequency Musculoskeletal Musculoskeletal: Reports myalgias; Denies arthralgias, back pain or neck pain Integumentary Denies abscess, Abrasions or rash Neurologic Neurologic: Denies headache(s) or weakness Psychiatric Psychiatric: Denies anxiety, depression or suicidal thoughts Endocrine Endocrinology: Denies polydipsia, polyphagia or polyuria Hematologic/Lymphatic Hematologic/Lymphatic: Denies easy bleeding, easy bruising or lymphadenopathy Allergic/Immunologic Allergic/Immunologic ED: Denies mouth swelling, tongue swelling or urticaria EXAM Physical Exam Const Vital Signs: 03/18/22 09:48 03/18/22 10:14 Temperature 97.9 F Temperature Source Temporal Pulse Rate 90 Respiratory Rate 18 Respiratory Pattern Normal Blood Pressure 150/89 H Blood Pressure Mean 109 Pulse Ox 100 Oxygen Delivery Method Room Air Positive well nourished and well developed General Appearance ED: well developed and NAD HEENT Reports TM's clear and moist mucous membranes normocephalic and atraumatic; Negative for trauma or tenderness Tympanic Membrane ED: Yes TM's clear Eyes PERRL and EOMs intact bilaterally General Eye ED: Negative for pale conjunctiva or scleral icterus Neck no lymphadenopathy, supple and no JVD General: Negative for tenderness Chest Wall inspection of chest normal and palpation of chest normal Chest: Negative for tenderness Resp normal respiratory effort and clear to auscultation bilaterally Effort and Inspection: Negative for respiratory distress or pain with movement Auscultation: Negative for rhonchi, wheezes or diminished lung sounds Cardio regular rate, regular rhythm, S1 normal heart sound, S2 normal heart sound and no murmurs Peripheral Pulses: pulses 2+ throughout GI normal to inspection, nondistended, normoactive bowel sounds, soft to palpation, non-tender, non-distended and no masses Back/Spine no CVA tenderness and no thoracic nor lumbar tenderness Extremity normal to inspection General Extremety ED: Negative for edema General Extremity: Negative for edema Neuro oriented x3, CN's II-XII intact bilaterally, no sensory deficits noted and gait normal Sensorium / Orientation: awake, alert, oriented to person, oriented to place and oriented to time Motor Exam: strength 5/5 throughout and strength abnormal Psych mental status grossly normal Skin no rashes or lesions noted and no wounds MDM MDM MDM Narrative Medical decision making narrative: Patient had a COVID-19 test that was negative. At this point given that she is got colored sputum and cough with history of smoking will cover with doxycycline for 10 days. Patient advised to follow-up with primary care physician in 3 to 5 days. She is to return if increasing shortness of breath or condition worsen anyway. Lab Data Attestation: I reviewed the patient's lab results. Radiography Diagnostic Testing: Clinical Impression(s) from Imaging Studies Chest X-Ray 03/18/22 10:20 IMPRESSION: Hyperinflation. Electronically Signed: Elier Meyer MD at 11:00 EDT , Chest x-ray obtained interpreted by myself as no acute disease process. Radiology in agreement. Discharge Plan Triage Chief Complaint: Cold Sx ED Provider: Chris Castillo Dx/Rx/DC Orders Clinical Impression: Bronchitis Instructions: ED Upper Resp Infec Abx Tx Prescriptions: New doxycycline monohydrate 100 mg capsule 100 mg PO BID Qty: 20 0RF No Action naproxen 500 MG tablet 500 mg PO BID PRN Qty: 20 0RF Primary Care Provider: Segundo Pedro Referrals: Segundo Pedro MD [Primary Care Provider] - 3-5 Days Disposition Disposition: Home, Self Care
--- NOTE | 2022-03-18 10:20 | RAD_ITS ---
STUDY: X-RAY CHEST REASON FOR EXAM: Female, 52 years old. Cough and chest congestion for 2 months. TECHNIQUE: Single AP portable view of the chest. COMPARISON: Comparison is made with prior study dated 05/15/2019. FINDINGS: Hyperinflation. The lungs are clear. There is no demonstrated pleural abnormality. Normal size heart. Normal mediastinum and vianey. Normal visualized pulmonary arteries. Normal visualized aortic arch and descending thoracic aorta. Normal visualized thoracic spine. Normal visualized ribs, clavicles, and shoulders. There is no demonstrated abnormality of the visualized soft tissue structures of the upper abdomen. RAD/Chest 1 View (Portable) IMPRESSION: Hyperinflation. Electronically Signed: Elier Meyer MD at 11:00 EDT ,
[2022-03-18 11:26] VITALS: BP 127/69; PULSE 81; RESP 15; O2SAT 98
== END 2022-03-18 11:28 | disposition home or self-care (01) ==
PROVIDERS: Emergency Provider Emergency Medicine; PCP Family Medicine; Visit Provider Emergency Medicine
DX: J40 Bronchitis, not specified as acute or chronic (principal); Z21 Asymptomatic human immunodeficiency virus [HIV] infection status; F17.210 Nicotine dependence, cigarettes, uncomplicated
CPT/HCPCS: 71045; 87811; 99282

== ENCOUNTER → 2022-08-24 | Outpatient (CLI) | payer MEDICAID, SELFPAY ==
--- NOTE | 2022-08-24 13:25 | CT_ITS ---
STUDY: LOW DOSE CT LUNG CANCER SCREENING REASON FOR EXAM: Female, 52 years old. Lung cancer screening -- and gt;20 pk yr hx;current smoker;asymptomatic. COPD. RADIATION DOSAGE (If Supplied By Facility): CTDIvol = ( 2.34 ) mGy, DLP = ( 80.19 ) mGycm TECHNIQUE: No contrast was administered. Low dose technique was utilized (average mAS-38 and kVp 120). 1.25 mm axial source images with a slice interval of 1.25-mm were reconstructed in lung windows. 2.5 mm axial source images with a slice interval of 2.5-mm were reconstructed in lung windows. 5.0 mm axial source images with a slice interval of 5.0-mm were reconstructed in soft tissue windows. COMPARISON: None. Bilateral breast implants. NODULES: No suspicious nodules are seen. Emphysema: Hyperinflation. Emphysematous changes. Mild degree of linear scarring in the anterior medial aspect of the right middle lobe and lingular segment of the left upper lobe. Mild linear scarring at the lung bases. Endobronchial lesion: Unremarkable. Aorta: Mild atherosclerotic plaque formation of the aortic arch. CORONARY ARTERIES: Coronary artery calcification is not seen. Heart: Unremarkable Pulmonary artery: Unremarkable Mediastinal nodes: Unremarkable Other chest and abdominal findings: CT/Low Dose CT Lung Screening IMPRESSION: Lung-RADS category 2 - Continue annual screening with LDCT in 12 months. IMPORTANT NOTES FOR USE: ACR Lung-RADS Version 1.1 Assessment Categories Release Date: 2018 Category: Coded 0-4 bases on nodule(s) with highest degree of suspicion. Negative screen is defined as categories 1 and 2; a positive screen is defined as categories 3 and 4. Category 3 and 4A nodules that are unchanged on interval CT should be coded as category 2, and individuals returned to screening in 12 months. Category 4X: Category 3 or 4 nodules with additional imaging findings that increase the suspicion of lung cancer, such as spiculation, GGN that doubles in size in 1 year, enlarged lymph notes, etc. Category Modifiers: S (significant finding unrelated to lung cancer) Electronically Signed: Elier Meyer MD at 14:27 EST ,
== END | disposition home or self-care (01) ==
LOC: CT 13:24
PROVIDERS: PCP Family Medicine; Referring Provider Nurse Practitioner Family; Visit Provider Nurse Practitioner Family
DX: Z12.2 Encounter for screening for malignant neoplasm of respiratory organs (principal); Z87.891 Personal history of nicotine dependence
CPT/HCPCS: 71271

== ENCOUNTER → 2022-08-25 | Outpatient (CLI) | payer MEDICAID, SELFPAY ==
[2022-08-25 16:40] LABS: Syphilis Antibodies Non-reactive
[2022-08-25 16:45] LABS: Chlamydia Trachomatis by PCR Negative (Negative); Neisserai gonorrhoeae by PCR Negative (Negative); Probe Check PASS; Sample Adequacy Control PASS; Specimen Processing Control PASS
[2022-08-27 14:09] LABS: Absolute CD4 Helper 1469 /uL (359-1519); Basophils (Absolute) 0.1 x10E3/uL (0.0-0.2); Eosinophils 2 % (Not Estab.); Eosinophils (Absolute) 0.1 x10E3/uL (0.0-0.4); Hematocrit 40.8 % (34.0-46.6); Hemoglobin 13.8 g/dL (11.1-15.9); Immature Granulocytes 0 % (Not Estab.); Lymphs 40 % (Not Estab.); Lymphs (Absolute) 2.7 x10E3/uL (0.7-3.1); MCH 34.3 pg (26.6-33.0); MCHC 33.8 g/dL (31.5-35.7); MCV 102 fL (79-97); Monocytes 5 % (Not Estab.); Monocytes (Absolute) 0.3 x10E3/uL (0.1-0.9); Neutrophils 52 % (Not Estab.); Neutrophils (Absolute) 3.5 x10E3/uL (1.4-7.0); Percent % CD4 Pos. Lymph. 54.4 % (30.8-58.5); Platelets 192 x10E3/uL (150-450); RBC Count 4.02 x10E6/uL (3.77-5.28); RDW 12.3 % (11.7-15.4); WBC Count 6.7 x10E3/uL (3.4-10.8)
[2022-08-27 18:09] LABS: Immature Granulocytes Absolute 0 x10E3/uL (0.0-0.1)
[2022-08-29 10:37] LABS: HIV-1 RNA by PCR, Quant. < 20 copies/mL (.)
== END | disposition home or self-care (01) ==
LOC: PAVLAB 14:41
PROVIDERS: PCP Family Medicine; Referring Provider Internal Medicine Infectious Disease; Visit Provider Internal Medicine Infectious Disease
DX: B20 Human immunodeficiency virus [HIV] disease (principal)
CPT/HCPCS: 36415; 86361; 86780; 87491; 87536; 87591

== ENCOUNTER → 2023-08-23 | Outpatient (CLI) | payer MEDICAID, SELFPAY ==
[2023-08-23 14:45] LABS: Syphilis Antibodies Non-reactive
--- OUTSIDE RECORDS SUMMARY | 2023-08-23 16:11 | XMS RPT_ITS | CCD ---
Author Name Unknown Address [address] [place] [address] Organization [facility] Care Team Providers Care Design Engineer Agricultural Equipment Name Role Phone Prudencio Pedro MD Primary Care Provider JACQUELYN LERMA Referring Unavailable BRUCE HUGO Attending Unavailable PRUDENCIO PEDRO Primary Care Unavailab PRUDENCIO Pineda Primary Care Unavailab BRUCE Jaime Referring Unavailable PRUDENCIO PEDRO Primary Care Unavailab PRUDENCIO Pineda Primary Care Unavailab PRUDENCIO Pineda Referring Unavailab PRUDENCIO Pineda Primary Care Unavailab PRUDENCIO Pineda Primary Care Unavailab PRUDENCIO Pineda Referring Unavailab PRUDENCIO Pineda Primary Care Unavailab JUDITH Hernandez Attending Unavailable PRUDENCIO PEDRO Primary Care Unavailab PRUDENCIO Pineda Referring Unavailab JUDITH Hernandez Referring Unavailable PRUDENCIO PEDRO Primary Care Unavailab PRUDENCIO Pineda Primary Care Unavailab PRUDENCIO Pineda Referring Unavailab PRUDENCIO Pineda Primary Care Unavailab PRUDENCIO Pineda Attending Unavailab PRUDENCIO Pineda Primary Care Unavailab JUDITH Hernandez Attending Unavailable PRUDENCIO PEDRO Primary Care Unavailab PRUDENCIO Pineda Primary Care Unavailab PRUDENCIO Pineda Referring Unavailab PRUDENCIO Pineda Primary Care Unavailab PRUDENCIO Pineda Referring Unavailab PRUDENCIO Pineda Primary Care Unavailab PRUDENCIO Pineda Primary Care Unavailab PRUDENCIO Pineda Primary Care Unavailab PRUDENCIO Pineda Referring Unavailab PRUDENCIO Pineda Primary Care Unavailab PRUDENCIO Pineda Primary Care Unavailab PRUDENCIO iPneda Primary Care Unavailab le PODLOGYUMIKO, DIAMOND Referring Unavailable PRUDENCIO PEDRO Primary Care Unavailab le PLOTMICHAEL ANNEL Attending Unavailable PRUDENCIO PEDRO Primary Care Unavailab PRUDENCIO Pineda Primary Care Unavailab le PODLOGAR, DIAMOND Attending Unavailable PRUDENCIO PEDRO Primary Care Unavailab le PODLOGAR, DIAMOND Attending Unavailable PRUDENCIO PEDRO Primary Care Unavailab PRUDENCIO Pineda Attending Unavailab PRUDENCIO Pineda Primary Care Unavailab PRUDENCIO Pineda Attending Unavailab PRUDENCIO Pineda Primary Care Unavailab le KNOBLEJACQUELYN Attending Unavailable PRUDENCIO PEDRO Primary Care Unavailab le KNOBLEJACQUELYN Referring Unavailable PRUDENCIO PEDRO Primary Care Unavailab le Allergies Allergy Classification Reported Allergen(s) Allergy Type Date of Onset Reaction(s) Facility (20 sources) House Dust Mite; Translations: [HOUSE DUST MITE] Propensity to adverse reactions to drug 1 Other: See Comments [facility] (20 sources) montelukast; Translations: [MONTELUKAST] Drug Allergy 2 Other: See Comments [facility] Work Phone: Medications Current Medications Medication Drug Class(es) Dates Sig (Normalized) Sig (Original) [id number] 200 actuat albuterol 0.09 mg/actuat metered dose inhaler (20 sources) beta2-Adrenergic Agonist Start: 02-18-2022 End: 09-22-2023 take 2 puff(s) by inhalation every four hours as needed albuterol HFA (VENTOLIN HFA) 90 mcg/actuation inhaler Indications: Persistent cough , Suspected COVID-19 virus infection Inhale 2 Puffs as instructed every 4 hours as needed. 1 Each 3 06/24/2023 09/22/2023 Active Completed/Discontinued Medications Medication Drug Class(es) Dates Sig (Normalized) Sig (Original) 8 hr acetaminophen 650 mg extended release oral tablet (10 sources) Start: 04-20-2023 take 1 tablet by mouth every eight hours as needed acetaminophen (TYLENOL 8 HOUR) 650 mg CR tablet Take 1 tablet by mouth every 8 hours as needed. 90 Each 0 04/20/2023 Active Problems Active Problems Problem Classification Problem Date Documented Da te Episodic/Chronic Anxiety disorders (20 sources) Anxiety; Translations: [Anxiety disorder, unspecified] 11-06-2019 Chronic Chronic obstructive pulmonary disease and bronchiectasis (20 sources) Chronic obstructive lung disease; Translations: [Chronic obstructive pulmonary disease, unspecified] Onset: 3 Chronic Coma; stupor; and brain damage (1 source) Daytime somnolence; Translations: [Somnolence] Episodic Disorders of teeth and jaw (1 source) Gingivitis; Translations: [Chronic gingivitis, plaque induced] Chronic Genitourinary symptoms and ill-defined conditions (2 sources) Polyuria; Translations: [Polyuria] Episodic HIV infection (20 sources) Human immunodeficiency virus infection; Translations: [Human immunodeficiency virus [HIV] disease] Onset: 0 12-05-2020 Chronic Immunizations and screening for infectious disease (5 sources) Suspected disease caused by 2019-nCoV; Translations: [Suspected COVID-19 virus infection] Episodic Inflammatory diseases of female pelvic organs (1 source) Bacterial vaginosis; Translations: [Acute vaginitis] Episodic Malaise and fatigue (1 source) Fatigue; Translations: [Other fatigue] Episodic Nutritional deficiencies (3 sources) Vitamin D deficiency; Translations: [Vitamin D deficiency, unspecified] Onset: 3 Chronic Other circulatory disease (1 source) Respiratory symptom; Translations: [Other specified symptoms and signs involving the circulatory and respiratory systems] Episodic Other eye disorders (1 source) Discharge from eye; Translations: [Other specified disorders of eye and adnexa] Episodic Other female genital disorders (3 sources) Vaginal discharge; Translations: [Other specified noninflammatory disorders of vagina] Episodic Other female genital disorders (1 source) Pruritus of vagina; Translations: [Other specified noninflammatory disorders of vagina] 03-14-2023 Episodic Other gastrointestinal disorders (2 sources) Loose stool; Translations: [Other fecal abnormalities] Episodic Other injuries and conditions due to external causes (1 source) Abrasion and/or friction burn of multiple sites; Translations: [Unspecified multiple injuries, initial encounter] Episodic Other lower respiratory disease (3 sources) Persistent cough; Translations: [Persistent cough] Episodic Other non-traumatic joint disorders (2 sources) Pain of left wrist; Translations: [Pain in left wrist] 05-09-2023 Episodic Other non-traumatic joint disorders (2 sources) Pain in left shoulder; Translations: [Pain in joint, shoulder region] Onset: 3 06-13-2023 Episodic Other nutritional; endocrine; and metabolic disorders (1 source) Excessive thirst; Translations: [Polydipsia] Episodic Other screening for suspected conditions (not mental disorders or infectious disease) (14 sources) Patient encounter status; Translations: [Encounter for screening mammogram for malignant neoplasm of breast] Onset: 3 Episodic Other upper respiratory disease (2 sources) Seasonal allergy; Translations: [Other seasonal allergic rhinitis] Chronic Residual codes; unclassified (4 sources) Tobacco use and exposure - finding; Translations: [Tobacco use] Episodic Residual codes; unclassified (1 source) Lack of access to transportation; Translations: [Lack of access to transportation] Episodic Spondylosis; intervertebral disc disorders; other back problems (1 source) Acute back pain with sciatica; Translations: [Lumbago with sciatica, right side] Episodic Substance-related disorders (20 sources) Smoker; Translations: [Nicotine dependence, unspecified, uncomplicated] Onset: 3 Chronic Viral infection (2 sources) Viral disease; Translations: [Viral infection, unspecified] Episodic Past or Other Problems Problem Classification Problem Date Documented Da te Episodic/Chronic Chronic obstructive pulmonary disease and bronchiectasis (20 sources) Bronchitis; Translations: [Bronchitis, not specified as acute or chronic] Onset: 09-02-2022 09-02-2022 Episodic E Codes: Fall (1 source) Unspecified fall, initial encounter; Translations: [Fall, initial encounter] Onset: 04-18-2023 Episodic E Codes: Natural/environment (8 sources) Cat bite - wound; Translations: [Bitten by cat, initial encounter] Onset: 09-02-2022 Episodic Fluid and electrolyte disorders (20 sources) Dehydration; Translations: [Dehydration] Onset: 09-02-2022 09-02-2022 Episodic Fracture of upper limb (2 sources) Closed fracture of left wrist; Translations: [Fracture of unspecified carpal bone, left wrist, initial encounter for closed fracture] Onset: 05-09-2023 05-09-2023 Episodic Other injuries and conditions due to external causes (1 source) Unspecified injury of left wrist, hand and finger(s), initial encounter; Translations: [Injury of left wrist, initial encounter] Onset: 04-18-2023 Episodic Other lower respiratory disease (20 sources) Cough; Translations: [Acute cough] Onset: 03-24-2022 Episodic Other lower respiratory disease (2 sources) Productive cough ; Translations: [Productive cough] Onset: 04-13-2023 05-31-2023 Episodic Other lower respiratory disease (1 source) Pleurodynia; Translations: [Rib pain on left side] Onset: 04-18-2023 Episodic Other non-traumatic joint disorders (1 source) Pain in left wrist; Translations: [Pain in left wrist] Onset: 05-09-2023 Episodic Other skin disorders (1 source) Rash and other nonspecific skin eruption; Translations: [Rash of both hands] Onset: 03-01-2023 Episodic Other upper respiratory disease (1 source) Nasal congestion; Translations: [Sinus congestion] Onset: 04-13-2023 Episodic Residual codes; unclassified (1 source) Contact with and (suspected) exposure to other hazardous, chiefly nonmedicinal, chemicals; Translations: [Chemical exposure] Onset: 03-01-2023 Episodic Residual codes; unclassified (1 source) Tobacco use; Translations: [Tobacco use] Onset: 09-02-2022 Episodic Results Test Name Value Interpretation Reference Range Facil ity Vital Signs Date Time Vital Sign Value Performing Clinician [facility] 06-13-2023 10:03-0500 Body temperature 97.3 [degF] Louie MANNING Work Phone: [facility] 06-13-2023 10:03-0500 Body weight 54.88 kg Louie MANNING Work Phone: [facility] 06-13-2023 10:03-0500 Diastolic blood pressure 78 mm[Hg] Louie MANNING Work Phone: [facility] 06-13-2023 10:03-0500 Heart rate 77 /min Krislyn Aberegg PA Work Phone: [facility] 06-13-2023 10:03-0500 Respiratory rate 18 /min Krislyn Aberegg PA Work Phone: [facility] 06-13-2023 10:03-0500 SaO2% (BldA) [Mass fraction] 100 % Krislyn Aberegg PA Work Phone: [facility] 06-13-2023 10:03-0500 Systolic blood pressure 106 mm[Hg] Krislyjacqui Aberegg PA Work Phone: [facility] 03-30-2023 15:34-0400 Body temperature 98.71 [degF] Rob Pendlebury FLAT CUTTER.FLAT BREAKDOWN PROCESSOR Work Phone: [facility] 03-30-2023 15:34-0400 Body weight 54.07 kg [facility] FLAT CUTTER.FLAT BREAKDOWN PROCESSOR Work Phone: [facility] 03-30-2023 15:34-0400 Diastolic blood pressure 88 mm[Hg] Rob Pendlebury FLAT CUTTER.FLAT BREAKDOWN PROCESSOR Work Phone: [facility] 03-30-2023 15:34-0400 Heart rate 84 /min Rob Pendlebury FLAT CUTTER.FLAT BREAKDOWN PROCESSOR Work Phone: [facility] 03-30-2023 15:34-0400 Respiratory rate 18 /min Rob Pendlebury FLAT CUTTER.FLAT BREAKDOWN PROCESSOR Work Phone: [facility] 03-30-2023 15:34-0400 SaO2% (BldA) [Mass fraction] 100 % Rob [facility] FLAT CUTTER.FLAT BREAKDOWN PROCESSOR Work Phone: [facility] 03-30-2023 15:34-0400 Systolic blood pressure 125 mm[Hg] Rob Pendlebury FLAT CUTTER.FLAT BREAKDOWN PROCESSOR Work Phone: [facility] 03-14-2023 11:35-0400 Body weight 54.88 kg Judith Cassidy MD Work Phone: [facility] 03-14-2023 11:35-0400 Diastolic blood pressure 80 mm[Hg] Judith Cassidy MD Work Phone: [facility] 03-14-2023 11:35-0400 Heart rate 66 /min Judith Cassidy MD Work Phone: [facility] 03-14-2023 11:35-0400 Respiratory rate 15 /min Judith Cassidy MD Work Phone: [facility] 03-14-2023 11:35-0400 SaO2% (BldA) [Mass fraction] 100 % Judith Cassidy MD Work Phone: [facility] 03-14-2023 11:35-0400 Systolic blood pressure 122 mm[Hg] Judith Cassidy MD Work Phone: [facility] 02-16-2023 14:34-0400 Body temperature 97.39 [degF] Pam Athy PA-C Work Phone: [facility] 02-16-2023 14:34-0400 Body weight 55.25 kg Pam Athy PA-C Work Phone: [facility] 02-16-2023 14:34-0400 Diastolic blood pressure 64 mm[Hg] Pam Athy PA-C Work Phone: [facility] 02-16-2023 14:34-0400 Heart rate 87 /min Pam Athy PA-C Work Phone: [facility] 02-16-2023 14:34-0400 Respiratory rate 18 /min Pam Athy PA-C Work Phone: [facility] 02-16-2023 14:34-0400 SaO2% (BldA) [Mass fraction] 99 % Pam Athy PA-C Work Phone: [facility] 02-16-2023 14:34-0400 Systolic blood pressure 100 mm[Hg] Pam Athy PA-C Work Phone: [facility] 11-17-2022 14:32-0400 Body weight 56.97 kg Diamond Bright APRN.CNP Work Phone: [facility] 11-17-2022 14:32-0400 Diastolic blood pressure 88 mm[Hg] Diamond Podlogar FLAT CUTTER.FLAT BREAKDOWN PROCESSOR Work Phone: [facility] 11-17-2022 14:32-0400 Heart rate 86 /min Diamond Podlogar FLAT CUTTER.FLAT BREAKDOWN PROCESSOR Work Phone: [facility] 11-17-2022 14:32-0400 Respiratory rate 18 /min Diamond Podlogar FLAT CUTTER.FLAT BREAKDOWN PROCESSOR Work Phone: [facility] 11-17-2022 14:32-0400 SaO2% (BldA) [Mass fraction] 100 % Diamond Podlogar FLAT CUTTER.FLAT BREAKDOWN PROCESSOR Work Phone: [facility] 11-17-2022 14:32-0400 Systolic blood pressure 128 mm[Hg] Diamond Podlogar FLAT CUTTER.FLAT BREAKDOWN PROCESSOR Work Phone: [facility] 11-05-2022 14:29-0400 Body temperature 98.6 [degF] Mana Praisler-Wood FLAT CUTTER.FLAT BREAKDOWN PROCESSOR Work Phone: [facility] 11-05-2022 14:29-0400 Body weight 56.06 kg Mana Praisler-Wood FLAT CUTTER.FLAT BREAKDOWN PROCESSOR Work Phone: [facility] 11-05-2022 14:29-0400 Diastolic blood pressure 72 mm[Hg] Mana Praisler-Wood FLAT CUTTER.FLAT BREAKDOWN PROCESSOR Work Phone: [facility] 11-05-2022 14:29-0400 Heart rate 84 /min Mana Praisler-Wood FLAT CUTTER.FLAT BREAKDOWN PROCESSOR Work Phone: [facility] 11-05-2022 14:29-0400 Respiratory rate 18 /min Mana Praisler-Wood FLAT CUTTER.FLAT BREAKDOWN PROCESSOR Work Phone: [facility] 11-05-2022 14:29-0400 SaO2% (BldA) [Mass fraction] 97 % Mana Praisler-Wood FLAT CUTTER.FLAT BREAKDOWN PROCESSOR Work Phone: [facility] 11-05-2022 14:29-0400 Systolic blood pressure 112 mm[Hg] Mana Ribeiro FLAT CUTTER.FLAT BREAKDOWN PROCESSOR Work Phone: [facility] 11-01-2022 13:25-0400 Body temperature 97 [degF] Pam Athy PA-C Work Phone: [facility] 11-01-2022 13:25-0400 Body weight 58.24 kg Pam Athy PA-C Work Phone: [facility] 11-01-2022 13:25-0400 Diastolic blood pressure 80 mm[Hg] Pam Athy PA-C Work Phone: [facility] 11-01-2022 13:25-0400 Heart rate 85 /min Pam Athy PA-C Work Phone: [facility] 11-01-2022 13:25-0400 Respiratory rate 21 /min Pam Athy PA-C Work Phone: [facility] 11-01-2022 13:25-0400 SaO2% (BldA) [Mass fraction] 97 % Pam Athy PA-C Work Phone: [facility] 11-01-2022 13:25-0400 Systolic blood pressure 122 mm[Hg] Pam Athy PA-C Work Phone: [facility] 09-07-2022 11:48-0500 Body temperature 97 [degF] Rob Pendlynne FLAT CUTTER.FLAT BREAKDOWN PROCESSOR Work Phone: [facility] 09-07-2022 11:48-0500 Body weight 56.52 kg Robjessica Chirinos FLAT CUTTER.FLAT BREAKDOWN PROCESSOR Work Phone: [facility] 09-07-2022 11:48-0500 Diastolic blood pressure 80 mm[Hg] Rob Pendlebury FLAT CUTTER.FLAT BREAKDOWN PROCESSOR Work Phone: [facility] 09-07-2022 11:48-0500 Heart rate 90 /min Rob Pendlebury FLAT CUTTER.FLAT BREAKDOWN PROCESSOR Work Phone: [facility] 09-07-2022 11:48-0500 Respiratory rate 18 /min Rob Pendlebury FLAT CUTTER.FLAT BREAKDOWN PROCESSOR Work Phone: [facility] 09-07-2022 11:48-0500 SaO2% (BldA) [Mass fraction] 98 % Rob Chirinos FLAT CUTTER.FLAT BREAKDOWN PROCESSOR Work Phone: [facility] 09-07-2022 11:48-0500 Systolic blood pressure 122 mm[Hg] Rob Chirinos FLAT CUTTER.FLAT BREAKDOWN PROCESSOR Work Phone: [facility] 09-02-2022 14:53-0500 Body height 154.9 cm Prudencio Pedro MD Work Phone: [facility] 09-02-2022 14:53-0500 Body temperature 97 [degF] Prudencio Pedro MD Work Phone: [facility] 09-02-2022 14:53-0500 Body weight 56.97 kg Prudencio Pedro MD Work Phone: [facility] 09-02-2022 14:53-0500 Diastolic blood pressure 82 mm[Hg] Prudencio Pedro MD Work Phone: [facility] 09-02-2022 14:53-0500 Heart rate 90 /min Prudencio Pedro MD Work Phone: [facility] 09-02-2022 14:53-0500 Systolic blood pressure 104 mm[Hg] Prudencio Pedro MD Work Phone: [facility] 08-18-2022 09:17-0500 Body temperature 98.1 [degF] Diamond Ojedalogyumiko FLAT CUTTER.FLAT BREAKDOWN PROCESSOR Work Phone: [facility] 08-18-2022 09:17-0500 Body weight 57.15 kg Diamond Podlogyumiko FLAT CUTTER.FLAT BREAKDOWN PROCESSOR Work Phone: [facility] 08-18-2022 09:17-0500 Diastolic blood pressure 82 mm[Hg] Diamond Podlogar FLAT CUTTER.FLAT BREAKDOWN PROCESSOR Work Phone: [facility] 08-18-2022 09:17-0500 Heart rate 83 /min Diamond Ojedalogyumiko FLAT CUTTER.FLAT BREAKDOWN PROCESSOR Work Phone: [facility] 08-18-2022 09:17-0500 Respiratory rate 18 /min Diamond Podlogar FLAT CUTTER.FLAT BREAKDOWN PROCESSOR Work Phone: [facility] 08-18-2022 09:17-0500 SaO2% (BldA) [Mass fraction] 100 % Diamond Podlogar FLAT CUTTER.FLAT BREAKDOWN PROCESSOR Work Phone: [facility] 08-18-2022 09:17-0500 Systolic blood pressure 116 mm[Hg] Diamond Podlogar FLAT CUTTER.FLAT BREAKDOWN PROCESSOR Work Phone: [facility] 08-09-2022 09:21-0500 Body weight 56.34 kg Gem Wilder FLAT CUTTER.CNM Work Phone: [facility] 08-09-2022 09:21-0500 Diastolic blood pressure 60 mm[Hg] Gem Wilder FLAT CUTTER.CNM Work Phone: [facility] 08-09-2022 09:21-0500 Systolic blood pressure 90 mm[Hg] Gem Wilder FLAT CUTTER.CNM Work Phone: [facility] 08-02-2022 09:39-0500 Body height 157.4 cm Diamond Podlogar FLAT CUTTER.FLAT BREAKDOWN PROCESSOR Work Phone: [facility] 08-02-2022 09:39-0500 Body weight 56.79 kg Diamond Podlogar FLAT CUTTER.FLAT BREAKDOWN PROCESSOR Work Phone: [facility] 08-02-2022 09:39-0500 Diastolic blood pressure 78 mm[Hg] Diamond Podlogar FLAT CUTTER.FLAT BREAKDOWN PROCESSOR Work Phone: [facility] 08-02-2022 09:39-0500 Heart rate 70 /min Diamond Podlogar FLAT CUTTER.FLAT BREAKDOWN PROCESSOR Work Phone: [facility] 08-02-2022 09:39-0500 Respiratory rate 16 /min Diamond Podlogar FLAT CUTTER.FLAT BREAKDOWN PROCESSOR Work Phone: [facility] 08-02-2022 09:39-0500 SaO2% (BldA) [Mass fraction] 100 % Diamond Podlogar FLAT CUTTER.FLAT BREAKDOWN PROCESSOR Work Phone: [facility] 08-02-2022 09:39-0500 Systolic blood pressure 124 mm[Hg] Diamond Bright APRN.FLAT BREAKDOWN PROCESSOR Work Phone: [facility] 07-30-2022 08:21-0500 Body temperature 97.11 [degF] Sulma Lane APRN.FLAT BREAKDOWN PROCESSOR Work Phone: [facility] 07-30-2022 08:21-0500 Body weight 56.[address] APRN.FLAT BREAKDOWN PROCESSOR Work Phone: [facility] 07-30-2022 08:21-0500 Diastolic blood pressure 72 mm[Hg] Sulma Lane APRN.FLAT BREAKDOWN PROCESSOR Work Phone: [facility] 07-30-2022 08:21-0500 Heart rate 90 /min Sulma Lane APRN.FLAT BREAKDOWN PROCESSOR Work Phone: [facility] 07-30-2022 08:21-0500 Respiratory rate 18 /min Sulma Lane APRN.FLAT BREAKDOWN PROCESSOR Work Phone: [facility] 07-30-2022 08:21-0500 SaO2% (BldA) [Mass fraction] 98 % Sulma Lane APRN.FLAT BREAKDOWN PROCESSOR Work Phone: [facility] 07-30-2022 08:21-0500 Systolic blood pressure 114 mm[Hg] Sulma Lane APRN.FLAT BREAKDOWN PROCESSOR Work Phone: [facility] 07-20-2022 09:15-0500 Body height 160 cm Pulm Wstr Work Phone: [facility] 07-20-2022 09:15-0500 Body weight 55.79 kg Pulm Wstr Work Phone: [facility] 07-20-2022 09:15-0500 Heart rate 90 /min Pulm Wstr Work Phone: [facility] 07-20-2022 09:15-0500 Respiratory rate 14 /min Pulm Wstr Work Phone: [facility] 07-20-2022 09:15-0500 SaO2% (BldA) [Mass fraction] 100 % Pulm Wstr Work Phone: [facility] 07-06-2022 16:29-0500 Body temperature 97.39 [degF] Prasanth Pablo FLAT CUTTER.FLAT BREAKDOWN PROCESSOR Work Phone: [facility] 07-06-2022 16:29-0500 Body weight 56.25 kg Prasanth Pablo FLAT CUTTER.FLAT BREAKDOWN PROCESSOR Work Phone: [facility] 07-06-2022 16:29-0500 Diastolic blood pressure 68 mm[Hg] Prasanth Pablo FLAT CUTTER.FLAT BREAKDOWN PROCESSOR Work Phone: [facility] 07-06-2022 16:29-0500 Heart rate 96 /min Prasanth Pablo FLAT CUTTER.FLAT BREAKDOWN PROCESSOR Work Phone: [facility] 07-06-2022 16:29-0500 Respiratory rate 16 /min Prasanth Pablo FLAT CUTTER.FLAT BREAKDOWN PROCESSOR Work Phone: [facility] 07-06-2022 16:29-0500 SaO2% (BldA) [Mass fraction] 98 % Prasanth Pablo FLAT CUTTER.FLAT BREAKDOWN PROCESSOR Work Phone: [facility] 07-06-2022 16:29-0500 Systolic blood pressure 110 mm[Hg] Prasanth Pablo FLAT CUTTER.FLAT BREAKDOWN PROCESSOR Work Phone: [facility] 07-05-2022 12:06-0500 Body temperature 98.01 [degF] Diamond Podlogar FLAT CUTTER.FLAT BREAKDOWN PROCESSOR Work Phone: [facility] 07-05-2022 12:06-0500 Body weight 56.25 kg Diamond Podlogar FLAT CUTTER.FLAT BREAKDOWN PROCESSOR Work Phone: [facility] 07-05-2022 12:06-0500 Diastolic blood pressure 92 mm[Hg] Diamond Podlogar FLAT CUTTER.FLAT BREAKDOWN PROCESSOR Work Phone: [facility] 07-05-2022 12:06-0500 Heart rate 97 /min Diamond Podlogar FLAT CUTTER.FLAT BREAKDOWN PROCESSOR Work Phone: [facility] 07-05-2022 12:06-0500 Respiratory rate 16 /min Diamond Podlogar FLAT CUTTER.FLAT BREAKDOWN PROCESSOR Work Phone: [facility] 07-05-2022 12:06-0500 SaO2% (BldA) [Mass fraction] 98 % Diamond Podlogar FLAT CUTTER.FLAT BREAKDOWN PROCESSOR Work Phone: [facility] 07-05-2022 12:06-0500 Systolic blood pressure 118 mm[Hg] Diamond Podlogar FLAT CUTTER.FLAT BREAKDOWN PROCESSOR Work Phone: [facility] 06-29-2022 16:05-0500 Body temperature 96.8 [degF] Prudencio Pedro MD Work Phone: [facility] 06-29-2022 16:05-0500 Body weight 56.16 kg Prudencio Pedro MD Work Phone: [facility] 06-29-2022 16:05-0500 Diastolic blood pressure 66 mm[Hg] Prudecnio Pedro MD Work Phone: [facility] 06-29-2022 16:05-0500 Heart rate 90 /min Prudencio Pedro MD Work Phone: [facility] 06-29-2022 16:05-0500 Respiratory rate 16 /min Prudencio Pedro MD Work Phone: [facility] 06-29-2022 16:05-0500 SaO2% (BldA) [Mass fraction] 99 % Prudencio Pedro MD Work Phone: [facility] 06-29-2022 16:05-0500 Systolic blood pressure 104 mm[Hg] Prudencio Pedro MD Work Phone: [facility] 04-09-2022 11:39-0400 Body temperature 97.59 [degF] Diamond Podlogar FLAT CUTTER.FLAT BREAKDOWN PROCESSOR Work Phone: [facility] 04-09-2022 11:39-0400 Body weight 53.71 kg Diamond Podlogar FLAT CUTTER.FLAT BREAKDOWN PROCESSOR Work Phone: [facility] 04-09-2022 11:39-0400 Diastolic blood pressure 90 mm[Hg] Diamond Podlogar FLAT CUTTER.FLAT BREAKDOWN PROCESSOR Work Phone: [facility] 04-09-2022 11:39-0400 Heart rate 92 /min Diamond Podlogar FLAT CUTTER.FLAT BREAKDOWN PROCESSOR Work Phone: [facility] 04-09-2022 11:39-0400 Respiratory rate 18 /min Diamond Podlogar FLAT CUTTER.FLAT BREAKDOWN PROCESSOR Work Phone: [facility] 04-09-2022 11:39-0400 SaO2% (BldA) [Mass fraction] 100 % Diamond Podlogar FLAT CUTTER.FLAT BREAKDOWN PROCESSOR Work Phone: [facility] 04-09-2022 11:39-0400 Systolic blood pressure 112 mm[Hg] Diamond Podlogar FLAT CUTTER.FLAT BREAKDOWN PROCESSOR Work Phone: [facility] 02-18-2022 10:00-0400 Body weight 53.16 kg Prudencio Pedro MD Work Phone: [facility] 02-18-2022 10:00-0400 Diastolic blood pressure 76 mm[Hg] Prudencio Pedro MD Work Phone: [facility] 02-18-2022 10:00-0400 Heart rate 94 /min Prudencio Pedro MD Work Phone: [facility] 02-18-2022 10:00-0400 Respiratory rate 18 /min Prudencio Pedro MD Work Phone: [facility] 02-18-2022 10:00-0400 SaO2% (BldA) [Mass fraction] 100 % Prudencio Pedro MD Work Phone: [facility] 02-18-2022 10:00-0400 Systolic blood pressure 116 mm[Hg] Prudencio Pedro MD Work Phone: [facility] 01-26-2022 11:03-0400 Body temperature 97.9 [degF] Diamond Podlogar FLAT CUTTER.FLAT BREAKDOWN PROCESSOR Work Phone: [facility] 01-26-2022 11:03-0400 Body weight 52.44 kg Diamond Podlogar FLAT CUTTER.FLAT BREAKDOWN PROCESSOR Work Phone: [facility] 01-26-2022 11:03-0400 Diastolic blood pressure 86 mm[Hg] Diamond Podlogar FLAT CUTTER.FLAT BREAKDOWN PROCESSOR Work Phone: [facility] 01-26-2022 11:03-0400 Heart rate 85 /min Diamond Podlogar FLAT CUTTER.FLAT BREAKDOWN PROCESSOR Work Phone: [facility] 01-26-2022 11:03-0400 Respiratory rate 16 /min Diamond Podlogar FLAT CUTTER.FLAT BREAKDOWN PROCESSOR Work Phone: [facility] 01-26-2022 11:03-0400 SaO2% (BldA) [Mass fraction] 97 % Diamond Podlogar FLAT CUTTER.FLAT BREAKDOWN PROCESSOR Work Phone: [facility] 01-26-2022 11:03-0400 Systolic blood pressure 104 mm[Hg] Diamond Podlogar FLAT CUTTER.FLAT BREAKDOWN PROCESSOR Work Phone: [facility] Encounters Encounter Date Encounter Type Care Provider Facility Start: 06-27-2023 Refill Prudencio Pedro MD Work Phone: [facility] Procedures Date Procedure Procedure Detail Performing Clinician Start: 05-17-2023 Digital breast tomosynthesis unilateral Prudencio Pedro MD Work Phone: Start: 05-17-2023 Us breast uni real t matteo with image limited Prudencio Pedro MD Work Phone: Start: 05-09-2023 Radex wrist complete minimum 3 views Bruce Hugo MD Work Phone: Start: 03-30-2023 COVID & INFLUENZA A/ B NAAT, ROUTINE Rob Chirinos FLAT CUTTER.FLAT BREAKDOWN PROCESSOR Work Phone: Start: 02-16-2023 Urnls dip stick/tabl et rgnt auto w/o microscopy Pam Garibay PA-C Work Phone: Start: 02-16-2023 BACTERIAL VAGINOSIS NAAT Pam Garibay PA-C Work Phone: Start: 02-16-2023 Iadna trichomonas vaginalis amplified probe tech Pam Garibay PA-C Work Phone: Start: 10-19-2022 Us breast uni real t matteo with image limited Prudencio Pedro MD Work Phone: Start: 10-19-2022 Digital breast tomosynthesis unilateral Prudencio Pedro MD Work Phone: Start: 09-13-2022 End: 09-13-2022 Mammography Bulk Order Provider Start: 07-20-2022 Brncdilat rspse spmt ry pre&post-brncdilat admn Prudencio Pedro MD Work Phone: Start: 06-29-2022 PFIZER-BIONTECH COVI D-19 BIVALENT BOOSTER VACCINE, AGE 12+ YR Prudencio Pedro MD Work Phone: Start: 06-29-2022 Urnls dip stick/tabl et rgnt auto w/o microscopy Prudencio Pedro MD Work Phone: Start: 01-26-2022 Lipid 1996 panel - S david or Plasma Rob Chirinos APRN.FLAT BREAKDOWN PROCESSOR Work Phone: Start: 05-10-2019 Adult depression scr eening assessment Prudencio Pedro MD Work Phone: Start: 03-12-2019 Mammography Segundo Pedro MD Work Phone: Plan of Treatment Date Care Activity Detail Author Start: 07-06-2032 Urine microalbumin profile [facility] Start: 01-26-2027 Lipid 1996 panel - S david or Plasma Lipid Screening [facility] Start: 01-26-2027 LIPID SCREEN LIPID SCREEN [facility] Start: 08-02-2025 DIABETES SCREEN DIABETES SCREEN [facility] Start: 08-02-2025 Diabetes Screening Diabetes Screenin g [facility] Start: 04-18-2024 Annual PCP Team [employer] reginald Disease Visit Annual PCP Team Chronic Disease Visit [facility] Start: 03-12-2024 HPV TESTING HPV TESTING [facility] Start: 03-12-2024 PAP TESTING PAP TESTING [facility] Start: 03-01-2024 ANNUAL PCP TEAM SEASONING SPRAYER REGINALD DISEASE VISIT ANNUAL PCP TEAM CHRONIC DISEASE VISIT [facility] Start: 11-18-2023 ANNUAL PCP TEAM SEASONING SPRAYER REGINALD DISEASE VISIT ANNUAL PCP TEAM CHRONIC DISEASE VISIT [facility] Start: 09-13-2023 Mammography [facility] Start: 09-02-2023 ANNUAL PCP TEAM SEASONING SPRAYER REGINALD DISEASE VISIT ANNUAL PCP TEAM CHRONIC DISEASE VISIT [facility] Start: 04-20-2023 End: 11-18-2023 ANALAI DIAGNOSTIC RIGHT ANALIA DIAGNOSTIC RIGHT Radiology Routine Abnormal mammogram Expected: 04/20/2023, Expires: 11/18/2023 [facility] Work Phone: Immunizations Immunization Date Immunization Notes Care Provider Fa steven 08-02-2022 pneumococcal (PCV20) vaccine, 20 valent (PREVNAR 20) Diamond Ojedalogyumiko FLAT CUTTER.FLAT BREAKDOWN PROCESSOR Work Phone: [facility] 08-02-2022 pneumococcal Conjuga te, unspecified formulation Diamond Ojedalogyumiko FLAT CUTTER.FLAT BREAKDOWN PROCESSOR Work Phone: [facility] Work Phone: 07-06-2022 tetanus toxoid, redu maximus diphtheria toxoid, and acellular pertussis vaccine, adsorbed Prasanth Shah FLAT CUTTER.FLAT BREAKDOWN PROCESSOR Work Phone: [facility] Work Phone: 06-29-2022 COVID-19 booster vaccine, age 12+ yr, bivalent ([employer]ER[employer]ION[employer] [place]) Prudencio Pedro MD Work Phone: [facility] 05-28-2022 influenza, injectabl e, quadrivalent, preservative free [address]ma [address] FLAT CUTTER.FLAT BREAKDOWN PROCESSOR Work Phone: [facility] 05-28-2022 influenza virus vaccine, unspecified formulation Rob Chirinos FLAT CUTTER.FLAT BREAKDOWN PROCESSOR Work Phone: [facility] 04-22-2021 influenza, injectabl e, quadrivalent, preservative free [address]ma [address] FLAT CUTTER.FLAT BREAKDOWN PROCESSOR Work Phone: [facility] 04-24-2020 influenza, injectabl e, quadrivalent, preservative free Prudencio Pedro MD Work Phone: [facility] Work Phone: 04-24-2020 pneumococcal conjuga te vaccine, 13 theresa Pedro MD Work Phone: [facility] Work Phone: 05-10-2019 influenza, injectabl e, quadrivalent, contains preservative Prudencio Pedro MD Work Phone: [facility] 12-26-2014 pneumococcal polysaccharide vaccine, 23 theresa Pedro MD Work Phone: [facility] Payers Date Payer Category Payer Medicaid [employer] [place] [id number] 2017-Present [phone] [address] [address] [place] [address] Medicaid [id number] 2017 Medicaid [id number] 2017 Medicaid [id number] Social History Date Type Detail Facility Start: 11-12-2017 End: 05-09-2023 Tobacco smoking status NMIS Smokes tobacco daily [facility] Start: 11-12-2017 End: 11-17-2022 Cigarettes smoked current (pack per day) - Reported 1 [facility] Work Phone: Start: 11-12-2017 End: 05-09-2023 Tobacco use and exposure Smokeless tobacco non-user [facility] Start: 02-20-2020 End: 06-13-2023 Alcohol intake Ex-drinker (finding) [facility] Start: 1970 Sex Assigned At Not on file [facility] Start: 01-16-2022 End: 02-18-2022 Exposure to SARS-CoV-2 (event) Not sure [facility] History of tobacco use Cigarette Smoker [facility] Work Phone: Start: 03-28-2022 End: 04-07-2022 Exposure to SARS-CoV-2 (event) Yes [facility] Start: 09-09-2022 Tobacco Comment Currently smok ing approx 0.5 PPD [facility] Start: 11-17-2022 End: 02-16-2023 Tobacco use panel [facility] Work Phone: Adult Depression Screening Assessment 0 [facility] Work Phone: Clinical Notes 01-26-2022 to 06-27-2023 Telephone Encounter - Maximino Barroso APRN.CNP - 06/27/2023 10:12 AM ESTTelephone Encounter - Paula Boston RN - 06/27/2023 9:09 AM Louie Yang PA - 06/13/2023 10:11 AM EST Note Date & Type Note Facility 06-27-2023 Miscellaneous Notes The following approved medication requests have been transmitted electronically. Requested Prescriptions Pending Prescriptions Disp Refills cetirizine (ZYRTEC) 10 mg tablet 30 tablet 2 Sig: Take 1 tablet by mouth once daily. Maximino Barroso APRN.CNP Patient has been identified by name and date of : Yes, Provider Dr Pedro Date 06/27/23 Time 0910. Patient phones for refill(s): Requested Prescriptions Pending Prescriptions Disp Refills cetirizine (ZYRTEC) 10 mg tablet 30 tablet 2 Sig: Take 1 tablet by mouth once daily. Date of last office visit in primary care: 04/18/2023 Date of next office visit in primary care: 08/02/2023 Last 2 Encounter Wt Readings: Date: Wt: 06/13/2023 54.9 kg (121 lb) 04/18/2023 51.7 kg (114 lb) Previous labs/tests for medication: Blood Pressure: BUN (mg/dL) Date Value 08/02/2022 13 Sodium (mmol/L) Date Value 08/02/2022 140 Last 1 Encounter BP Readings: Date: BP: 06/13/2023 106/78 Liver Function: ALT (U/L) Date Value 08/02/2022 9 AST (U/L) Date Value 08/02/2022 19 Please advise. Thank you. Paula Boston, EDWARD. documented in this encounter [facility] 06-24-2023 Miscellaneous Notes EUGENE 03/14/23 Patient phones requesting refills as follows: Requested Prescriptions Pending Prescriptions Disp Refills albuterol HFA (VENTOLIN HFA) 90 mcg/actuation inhaler 1 Each 3 Sig: Inhale 2 Puffs as instructed every 4 hours as needed. Please review and advise. Elba Bass LPN documented in this encounter [facility] 06-13-2023 Note HNO ID: [id number] Author: Lidia Mi RT(R) Service: Radiology Author Type: Technologist Type: Progress Notes Filed: 06/13/2023 10:56 AM Note Text: Radiology Service Progress Note PATIENT NAME: Tracy Vazquez DATE OF SERVICE: June 13, 2023 TIME: 10:45 AM PATIENT IDENTITY VERIFICATION COMPLETED USING TWO (2) IDENTIFIERS: Name and Date of confirmed by patient verbally. FALL SCREENING: Has the patient had 2 falls in the last year or 1 fall with injury or currently using an Ambulatory Assistive Device (Walker, Cane, Wheelchair, Crutches, etc.)? No PATIENT GENDER DATA: Female. status: : No status: NO. PATIENT RELEVANT IMPLANT DATA REVIEWED: Yes RADIOLOGY DEPARTMENT: General X-ray: Exam(s) Completed: Upper Extremity X-Ray(s): Shoulder, AP / TRUE AP / AXILLARY left PERIPHERAL IV DATA: Not applicable SIGNED BY: RT Penny(R) June 13, 2023 10:45 AM [facility] 06-13-2023 Note HNO ID: [id number] Author: Louie Monzon PA Service: ? Author Type: Physician Revenue Integrity Analyst Type: Progress Notes Filed: 06/13/2023 11:23 AM Note Text: This note was created using NoteWriter. Subjective Tracy Vazquez is a 53 year old female. HPI 53-year-old female presents for left shoulder pain. Patient has been having left shoulder pain for the past month and a half after a fall. She states that she tripped and fell on 04/18/2023. She fell onto her left side. She had a broken wrist. States that her her shoulder has been hurting since then, but she has never had it evaluated. No initial XRs were done of the shoulder. Pain is worse with movement. She states she has injured and dislocated the shoulder in the past. She has never had surgery on the shoulder. No numbness or tingling in the arm. Still able to move it. Khube-ykod-napigdot. She has been taking Tylenol. She does not like to take NSAIDs due to her HIV medication. 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 Mcdonald-ID Persistent cough 07/2022 Tobacco use disorder PAST SURGICAL HISTORY Procedure Laterality Date BREAST AUGMENTATION W/PROSTHETIC IMPLANT Bilateral 1995 under the muscle ALLERGIES House Dust Mite and Singulair [Montelukast] MEDICATIONS guaiFENesin (MUCINEX) 600 mg 12 hr tablet Take 1 tablet by mouth two times a day. acetaminophen (TYLENOL 8 HOUR) 650 mg CR tablet Take 1 tablet by mouth every 8 hours as needed. cholecalciferol (VITAMIN D-3) 50 mcg (2,000 unit) tablet Take 2,000 Units by mouth once daily. buPROPion SR (WELLBUTRIN SR) 150 mg 12 hr tablet Take 1 tablet by mouth twice daily. (Patient not taking: Reported on 03/01/2023) lansoprazole (PREVACID) 15 mg capsule Take 1 capsule by mouth daily before breakfast. 1/2 hr before meal. (Patient not taking: Reported on 05/09/2023) albuterol HFA (VENTOLIN HFA) 90 mcg/actuation inhaler Inhale 2 Puffs as instructed every 4 hours as needed. efygyvamhyq-ojwnmyyxsnlss-tzfwcc vir alafenamide (BIKTARVY) 50-200-25 mg per tablet Take 1 tablet by mouth once daily. FAMILY HISTORY Problem Relation Age of Onset Emphysema Mother other (lung cancer) Mother Cancer Father prostate Breast Cancer Maternal Aunt Bipolar disorder Sister other (mental health) Maternal Grandmother No Known Problems Maternal Grandfather Breast Cancer Paternal Grandmother Social History Tobacco Use Smoking status: Every Day Packs/day: 1.00 Years: 38.00 Additional pack years: 0.00 Total pack years: 38.00 Types: Cigarettes Smokeless tobacco: Never Vaping Use Vaping Use: Never used Substance Use Topics Alcohol use: Not Currently Drug use: Not Currently Types: Marijuana, LSD, Crack Cocaine Comment: past hx Review of Systems Constitutional: Negative for chills and fever. HENT: Negative for congestion, ear pain and sore throat. Respiratory: Negative for cough and shortness of breath. Cardiovascular: Negative for chest pain. Gastrointestinal: Negative for diarrhea and vomiting. Musculoskeletal: Positive for arthralgias. Objective BP 106/78 Pulse 77 Temp 36.3 ?C (97.3 ?F) Resp 18 Wt 54.9 kg (121 lb) SpO2 100% BMI 22.86 kg/m? Physical Exam Vitals and nursing note reviewed. Constitutional: General: She is not in acute distress. Appearance: Normal appearance. She is not toxic-appearing. HENT: Nose: Nose normal. Mouth/Throat: Mouth: Mucous membranes are moist. Eyes: Conjunctiva/sclera: Conjunctivae normal. Cardiovascular: Rate and Rhythm: Normal rate and regular rhythm. Pulmonary: Effort: Pulmonary effort is normal. Breath sounds: Normal breath sounds. Musculoskeletal: Left shoulder: Tenderness and bony tenderness present. No swelling or deformity. Decreased range of motion. Normal pulse. Comments: Forward flexion to approximately 120 degrees with pain. Abduction to 90 degrees with pain. Tenderness over glenohumeral joint and posterior left shoulder. Normal sensation left upper extremity. Normal ROM elbow, wrist. Pulses intact. Skin: General: Skin is warm and dry. Neurological: Mental Status: She is alert. Assessment and Plan ASSESSMENT/PLAN: 1. Acute pain of left shoulder - ICD9: 719.41, ICD10: M25.512 - XR SHOULDER GENERAL 3V OR MORE AP/TRUE AP/OTHER LEFT -XR reveals no acute radiographic abnormality. -Discussed with patient possible rotator cuff injury. Recommend follow-up with orthopedics. Continue Tylenol, rest, ice. - CONSULT TO ORTHOPAEDICS Diagnosis and treatment plan were discussed and questions were answered to the patient's satisfaction. Pt acknowledged understanding of concepts and follow up plan. Specific signs and symptom (more content not included)... [facility] 06-13-2023 History of Presen t illness Narrative This note was created using Healthrageousriter. Subjective Tracy Vazquez is a 53 year old female. HPI 53-year-old female presents for left shoulder pain. Patient has been having left shoulder pain for the past month and a half after a fall. She states that she tripped and fell on 04/18/2023. She fell onto her left side. She had a broken wrist. States that her her shoulder has been hurting since then, but she has never had it evaluated. No initial XRs were done of the shoulder. Pain is worse with movement. She states she has injured and dislocated the shoulder in the past. She has never had surgery on the shoulder. No numbness or tingling in the arm. Still able to move it. Stfzp-qlmz-qcwxxpwb. She has been taking Tylenol. She does not like to take NSAIDs due to her HIV medication. PAST MEDICAL HISTORY Diagnosis Date Allergies On immunotherapy Anxiety Brain aneurysm Reprots from taking LSD- no surgery for this Emphysema lung (HCC) GERD (gastroesophageal reflux disease) Hepatitis B reports she is clear HIV (human immunodeficiency virus infection) (HCC) 2009 Dr. Mcdonald-ID Persistent cough 07/2022 Tobacco use disorder PAST SURGICAL HISTORY Procedure Laterality Date BREAST AUGMENTATION W/PROSTHETIC IMPLANT Bilateral 1995 under the muscle ALLERGIES House Dust Mite and Singulair [Montelukast] MEDICATIONS guaiFENesin (MUCINEX) 600 mg 12 hr tablet Take 1 tablet by mouth two times a day. acetaminophen (TYLENOL 8 HOUR) 650 mg CR tablet Take 1 tablet by mouth every 8 hours as needed. cholecalciferol (VITAMIN D-3) 50 mcg (2,000 unit) tablet Take 2,000 Units by mouth once daily. buPROPion SR (WELLBUTRIN SR) 150 mg 12 hr tablet Take 1 tablet by mouth twice daily. (Patient not taking: Reported on 03/01/2023) lansoprazole (PREVACID) 15 mg capsule Take 1 capsule by mouth daily before breakfast. 1/2 hr before meal. (Patient not taking: Reported on 05/09/2023) albuterol HFA (VENTOLIN HFA) 90 mcg/actuation inhaler Inhale 2 Puffs as instructed every 4 hours as needed. evxaahjppto-pyatjjzaaomzp-iaakat vir alafenamide (BIKTARVY) 50-200-25 mg per tablet Take 1 tablet by mouth once daily. FAMILY HISTORY Problem Relation Age of Onset Emphysema Mother other (lung cancer) Mother Cancer Father prostate Breast Cancer Maternal Aunt Bipolar disorder Sister other (mental health) Maternal Grandmother No Known Problems Maternal Grandfather Breast Cancer Paternal Grandmother Social History Tobacco Use Smoking status: Every Day Packs/day: 1.00 Years: 38.00 Additional pack years: 0.00 Total pack years: 38.00 Types: Cigarettes Smokeless tobacco: Never Vaping Use Vaping Use: Never used Substance Use Topics Alcohol use: Not Currently Drug use: Not Currently Types: Marijuana, LSD, Crack Cocaine Comment: past hx Review of Systems Constitutional: Negative for chills and fever. HENT: Negative for congestion, ear pain and sore throat. Respiratory: Negative for cough and shortness of breath. Cardiovascular: Negative for chest pain. Gastrointestinal: Negative for diarrhea and vomiting. Musculoskeletal: Positive for arthralgias. Objective BP 106/78 Pulse 77 Temp 36.3 C (97.3 F) Resp 18 Wt 54.9 kg (121 lb) SpO2 100% BMI 22.86 kg/m Physical Exam Vitals and nursing note reviewed. Constitutional: General: She is not in acute distress. Appearance: Normal appearance. She is not toxic-appearing. HENT: Nose: Nose normal. Mouth/Throat: Mouth: Mucous membranes are moist. Eyes: Conjunctiva/sclera: Conjunctivae normal. Cardiovascular: Rate and Rhythm: Normal rate and regular rhythm. Pulmonary: Effort: Pulmonary effort is normal. Breath sounds: Normal breath sounds. Musculoskeletal: Left shoulder: Tenderness and bony tenderness present. No swelling or deformity. Decreased range of motion. Normal pulse. Comments: Forward flexion to approximately 120 degrees with pain. Abduction to 90 degrees with pain. Tenderness over glenohumeral joint and posterior left shoulder. Normal sensation left upper extremity. Normal ROM elbow, wrist. Pulses intact. Skin: General: Skin is warm and dry. Neurological: Mental Status: She is alert. Assessment and Plan ASSESSMENT/PLAN: 1. Acute pain of left shoulder - ICD9: 719.41, ICD10: M25.512 - XR SHOULDER GENERAL 3V OR MORE AP/TRUE AP/OTHER LEFT -XR reveals no acute radiographic abnormality. -Discussed with patient possible rotator cuff injury. Recommend follow-up with orthopedics. Continue Tylenol, rest, ice. - CONSULT TO ORTHOPAEDICS Diagnosis and treatment plan were discussed and questions were answered to the patient's satisfaction. Pt acknowledged understanding of concepts and follow up plan. Specific signs and symptoms that would indicate the need for higher level of care were discussed in detail warranting prompt ER evaluation. KERRI Fragoso documented in this encounter [facility] 05-31-2023 Miscellaneous Notes Patient called stating pharmacy does not have her prescription yet. Advised patient that refill request has been routed to Dr. Cassidy. Dr. Cassidy is seeing patients and will fill medication at her earliest convenience. Patient verbalized understanding. Donna Cassidy LPN Patient has been identified by name and date of : Yes Requested Prescriptions Pending Prescriptions Disp Refills guaiFENesin (MUCINEX) 600 mg 12 hr tablet 40 tablet 0 Sig: Take 2 tablets by mouth two times a day for 10 days. RX INSTRUCTIONS: Patient aware RX will be sent to pharmacy. No need to notify patient. Venecia Gusman MA documented in this encounter [facility] 05-18-2023 Miscellaneous Notes Pt was notified of results & instructions from provider, pt voiced understanding. Pt was transferred to scheduling. Abigail August LPN Patient telephoned. Message left for patient to call office back and ask for triage nurse. Shraddha Cuevas LPN Mammogram and US shows <0.5 cm irregular lesion in right breast which is probably benign. Recommend repeat diagnostic mammogram and US in 6 months to monitor progression. documented in this encounter [facility] 05-17-2023 Note HNO ID: [id number] Author: Gem Saxena RDMS Service: ? Author Type: Retail Banker Type: Progress Notes Filed: 05/17/2023 2:55 PM Note Text: Radiology Service Progress Note PATIENT NAME: Tracy Vazquez DATE OF SERVICE: May 17, 2023 TIME: 2:55 PM PATIENT IDENTITY VERIFICATION COMPLETED USING TWO (2) IDENTIFIERS: Name and Date of confirmed by patient verbally. FALL SCREENING: Has the patient had 2 falls in the last year or 1 fall with injury or currently using an Ambulatory Assistive Device (Walker, Cane, Wheelchair, Crutches, etc.)? No PATIENT GENDER DATA: Female PATIENT RELEVANT IMPLANT DATA REVIEWED: Not Applicable RADIOLOGY DEPARTMENT: Ultrasound PERIPHERAL IV DATA: Not applicable SIGNED BY: Gem Saxena RDMS RVT May 17, 2023 2:55 PM [facility] 05-17-2023 Note HNO ID: [id number] Author: Maria Del Carmen Mendez Mammo Tech Service: ? Author Type: Mortar Carrier Type: Progress Notes Filed: 05/17/2023 9:18 AM Note Text: Radiology Service Progress Note PATIENT NAME: Tracy Vazquez DATE OF SERVICE: May 17, 2023 TIME: 8:53 AM PATIENT IDENTITY VERIFICATION COMPLETED USING TWO (2) IDENTIFIERS: Name and Date of confirmed by patient verbally. FALL SCREENING: Has the patient had 2 falls in the last year or 1 fall with injury or currently using an Ambulatory Assistive Device (Walker, Cane, Wheelchair, Crutches, etc.)? No PATIENT GENDER DATA: Female. status: : No status: NO. PATIENT RELEVANT IMPLANT DATA REVIEWED: Not Applicable RADIOLOGY DEPARTMENT: Mammography PERIPHERAL IV DATA: Not applicable SIGNED BY: Gabino Tan May 17, 2023 8:53 AM [facility] 05-17-2023 History of Presen t illness Narrative Radiology Service Progress Note PATIENT NAME: Tracy Vazquez DATE OF SERVICE: May 17, 2023 TIME: 2:55 PM PATIENT IDENTITY VERIFICATION COMPLETED USING TWO (2) IDENTIFIERS: Name and Date of confirmed by patient verbally. FALL SCREENING: Has the patient had 2 falls in the last year or 1 fall with injury or currently using an Ambulatory Assistive Device (Walker, Cane, Wheelchair, Crutches, etc.)? No PATIENT GENDER DATA: Female PATIENT RELEVANT IMPLANT DATA REVIEWED: Not Applicable RADIOLOGY DEPARTMENT: Ultrasound PERIPHERAL IV DATA: Not applicable SIGNED BY: Gem Saxena RDMS RVT May 17, 2023 2:55 PM documented in this encounter [facility] 05-17-2023 History of Presen t illness Narrative Radiology Service Progress Note PATIENT NAME: Tracy Vazquez DATE OF SERVICE: May 17, 2023 TIME: 8:53 AM PATIENT IDENTITY VERIFICATION COMPLETED USING TWO (2) IDENTIFIERS: Name and Date of confirmed by patient verbally. FALL SCREENING: Has the patient had 2 falls in the last year or 1 fall with injury or currently using an Ambulatory Assistive Device (Walker, Cane, Wheelchair, Crutches, etc.)? No PATIENT GENDER DATA: Female. status: : No status: NO. PATIENT RELEVANT IMPLANT DATA REVIEWED: Not Applicable RADIOLOGY DEPARTMENT: Mammography PERIPHERAL IV DATA: Not applicable SIGNED BY: Gabino Tan May 17, 2023 8:53 AM documented in this encounter [facility] 05-09-2023 Note HNO ID: [id number] Author: Bruce Hugo MD Service: ? Author Type: Physician Type: Progress Notes Filed: 05/24/2023 4:36 PM Note Text: Bruce Hugo MD Department of Orthopaedics Orthopaedics [address] [facility] [address] Dept: [phone] Dept May 09, 2023 CHIEF COMPLAINT: New and Fracture of the Left Wrist HPI Patient here today for a left wrist fracture. Injury happened 3 weeks ago when she tripped on the sidewalk while walking to the store. She denies any pain today. Arrives with brace on the wrist. She is right hand dominant. 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 ASSESSMENT: M25.532 Left wrist pain (primary encounter diagnosis) S62.102A Closed fracture of left wrist, initial encounter PLAN: Her original images are suggestive of a small cortical break. She has some mild tenderness in that location but otherwise is doing well. Follow-up films difficult to tell any signs of fracture. I would let her participate in activities as tolerated and yet use her brace if and when she feels necessary. FOLLOW UP INSTRUCTIONS: As needed OBJECTIVE: Ms. Tracy Vazquez is a pleasant 53 year old in no apparent distress. Gen:There were no vitals taken for this visit. nl development, non obese, no deformities ENT: Normocephalic, normal hearing, moist mucosa CV: Pulses:Radial= 2+ and symmetric, capillary refill < 2 secs, no peripheral edema/varicosities Skin: no rash, bruising or lesions. Good turgor. Psych: cooperative and appropriate, alert and oriented x 3, good mood and affect. Musculoskeletal: No swelling. Very mild tenderness over the radial styloid/metaphysis. Good range of motion. IMAGING: IMPRESSION: No acute osseous abnormality. Product Craftsman: REJI Transcribe Date/Time: May 11 2023 12:02P Dictated by : DEMETRIUS COYLE DO This examination was interpreted and the report reviewed and electronically signed by: DEMETRIUS COYLE DO on May 11 2023 12:06PM EST Results-Findings * * *Final Report* * * DATE OF EXAM: May 09 2023 1:22PM WRX [id number] - XR WRIST 3V PA/LAT/OBL LT / PROCEDURE REASON: Pain in left wrist * * * * Physician Interpretation * * * * EXAMINATION: XR WRIST 3V PA/LAT/OBL LT PATIENT/TECHNOLOGIST PROVIDED HISTORY: Follow up after left wrist injury. CLINICAL INFORMATION: 53 years old Female with Pain in left wrist TECHNIQUE: XR WRIST 3V PA/LAT/OBL LT Laterality: LEFT Number of different views (projections): 3 COMPARISON: Radiographs 04/18/2023 RESULT: Previously reported fracture along the lateral radial metaphysis is not visualized on the current exam. No other fracture identified. Osteopenia. Mild degenerative change 1st CMC joint. Joint spaces are otherwise maintained. 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 Mcdonald-ID Persistent cough 07/2022 Tobacco use disorder Past Surgical History: PAST SURGICAL HISTORY Procedure Laterality Date BREAST AUGMENTATION W/PROSTHETIC IMPLANT Bilateral 1995 under the muscle Family History: FAMILY HISTORY Problem Relation Age of Onset Emphysema Mother other (lung cancer) Mother Cancer Father prostate Breast Cancer Maternal Aunt Bipolar disorder Sister other (mental health) Maternal Grandmother No Known Problems Maternal Grandfather Breast Cancer Paternal Grandmother Social History: Social History Tobacco Use Smoking status: Every Day Packs/day: 1.00 Years: 38.00 Additional pack years: 0.00 Total pack years: 38.00 Types: Cigarettes Smokeless tobacco: Never Vaping Use Vaping Use: Never used Substance Use Topics Alcohol use: Not Currently Drug use: Not Currently Types: Marijuana, LSD, Crack Cocaine Comment: past hx Medications: Current Outpatient Medications Medication Sig acetaminophen (TYLENOL 8 HOUR) 650 mg CR tablet Take 1 tablet by mouth every 8 hours as needed. cholecalciferol (VITAMIN D-3) 50 mcg (2,000 unit) tablet Take 2,000 Units by mouth once daily. cetirizine (ZYRTEC) 10 mg tablet Take 1 tablet by mouth once daily. albuterol HFA (VENTOLIN HFA) 90 mcg/actuation inhaler Inhale 2 Puffs as instructed every 4 hours as needed. lonzsthkpbp-bplapufmgmvrj-tlbbyn vir alafenamide (BIKTARVY) 50-200-25 mg per tablet Take 1 tablet by mouth once daily. buPROPion SR (WELLBUTRIN SR) 150 mg 12 hr tablet Take 1 tablet by mouth twice daily. (Patient not taking: Reported on 03/01/2023) lansoprazole (PREVACID) 15 mg capsule Take 1 capsule by mouth daily before breakfast. 1/2 hr before meal. (Patient not taking: Reported on 05/09/2023) No current facility-admin (more content not included)... [facility] 05-09-2023 Note HNO ID: [id number] Author: Glenis Wick RT(R) Service: ? Author Type: Mortar Carrier Type: Progress Notes Filed: 05/09/2023 1:20 PM Note Text: Radiology Service Progress Note PATIENT NAME: Tracy Vazquez DATE OF SERVICE: May 09, 2023 TIME: 1:12 PM PATIENT IDENTITY VERIFICATION COMPLETED USING TWO (2) IDENTIFIERS: Name and Date of confirmed by patient verbally. FALL SCREENING: Has the patient had 2 falls in the last year or 1 fall with injury or currently using an Ambulatory Assistive Device (Walker, Cane, Wheelchair, Crutches, etc.)? No PATIENT GENDER DATA: Female. status: : No status: NO. PATIENT RELEVANT IMPLANT DATA REVIEWED: Yes RADIOLOGY DEPARTMENT: General X-ray: Exam(s) Completed: Upper Extremity X-Ray(s): Wrist, left PERIPHERAL IV DATA: Not applicable SIGNED BY: RT Mayra(R) May 09, 2023 1:12 PM [facility] 05-09-2023 History of Presen t illness Narrative Bruce Hugo MD Department of Orthopaedics Orthopaedics [address] [place] [address] Dept: [phone] Dept May 09, 2023 CHIEF COMPLAINT: New and Fracture of the Left Wrist HPI Patient here today for a left wrist fracture. Injury happened 3 weeks ago when she tripped on the sidewalk while walking to the store. She denies any pain today. Arrives with brace on the wrist. She is right hand dominant. 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 ASSESSMENT: M25.532 Left wrist pain (primary encounter diagnosis) S62.102A Closed fracture of left wrist, initial encounter PLAN: Her original images are suggestive of a small cortical break. She has some mild tenderness in that location but otherwise is doing well. Follow-up films difficult to tell any signs of fracture. I would let her participate in activities as tolerated and yet use her brace if and when she feels necessary. FOLLOW UP INSTRUCTIONS: As needed OBJECTIVE: Ms. Tracy Vazquez is a pleasant 53 year old in no apparent distress. Gen:There were no vitals taken for this visit. nl development, non obese, no deformities ENT: Normocephalic, normal hearing, moist mucosa CV: Pulses:Radial= 2+ and symmetric, capillary refill < 2 secs, no peripheral edema/varicosities Skin: no rash, bruising or lesions. Good turgor. Psych: cooperative and appropriate, alert and oriented x 3, good mood and affect. Musculoskeletal: No swelling. Very mild tenderness over the radial styloid/metaphysis. Good range of motion. IMAGING: IMPRESSION: No acute osseous abnormality. Product Craftsman: REJI Transcribe Date/Time: May 11 2023 12:02P Dictated by : DEMETRIUS COYLE DO This examination was interpreted and the report reviewed and electronically signed by: DEMETRIUS COYLE DO on May 11 2023 12:06PM EST Results-Findings * * *Final Report* * * DATE OF EXAM: May 09 2023 1:22PM WRX [id number] - XR WRIST 3V PA/LAT/OBL LT / PROCEDURE REASON: Pain in left wrist * * * * Physician Interpretation * * * * EXAMINATION: XR WRIST 3V PA/LAT/OBL LT PATIENT/TECHNOLOGIST PROVIDED HISTORY: Follow up after left wrist injury. CLINICAL INFORMATION: 53 years old Female with Pain in left wrist TECHNIQUE: XR WRIST 3V PA/LAT/OBL LT Laterality: LEFT Number of different views (projections): 3 COMPARISON: Radiographs 04/18/2023 RESULT: Previously reported fracture along the lateral radial metaphysis is not visualized on the current exam. No other fracture identified. Osteopenia. Mild degenerative change 1st CMC joint. Joint spaces are otherwise maintained. 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 Mcdonald-ID Persistent cough 07/2022 Tobacco use disorder Past Surgical History: PAST SURGICAL HISTORY Procedure Laterality Date BREAST AUGMENTATION W/PROSTHETIC IMPLANT Bilateral 1995 under the muscle Family History: FAMILY HISTORY Problem Relation Age of Onset Emphysema Mother other (lung cancer) Mother Cancer Father prostate Breast Cancer Maternal Aunt Bipolar disorder Sister other (mental health) Maternal Grandmother No Known Problems Maternal Grandfather Breast Cancer Paternal Grandmother Social History: Social History Tobacco Use Smoking status: Every Day Packs/day: 1.00 Years: 38.00 Additional pack years: 0.00 Total pack years: 38.00 Types: Cigarettes Smokeless tobacco: Never Vaping Use Vaping Use: Never used Substance Use Topics Alcohol use: Not Currently Drug use: Not Currently Types: Marijuana, LSD, Crack Cocaine Comment: past hx Medications: Current Outpatient Medications Medication Sig acetaminophen (TYLENOL 8 HOUR) 650 mg CR tablet Take 1 tablet by mouth every 8 hours as needed. cholecalciferol (VITAMIN D-3) 50 mcg (2,000 unit) tablet Take 2,000 Units by mouth once daily. cetirizine (ZYRTEC) 10 mg tablet Take 1 tablet by mouth once daily. albuterol HFA (VENTOLIN HFA) 90 mcg/actuation inhaler Inhale 2 Puffs as instructed every 4 hours as needed. djlwouzryrk-vsxdayisvfdsn-lutoha vir alafenamide (BIKTARVY) 50-200-25 mg per tablet Take 1 tablet by mouth once daily. buPROPion SR (WELLBUTRIN SR) 150 mg 12 hr tablet Take 1 tablet by mouth twice daily. (Patient not taking: Reported on 03/01/2023) lansoprazole (PREVACID) 15 mg capsule Take 1 capsule by mouth daily before breakfast. 1/2 hr before meal. (Patient not taking: Reported on 05/09/2023) No current facility-administered medications for this visit. Allergies: House Dust Mite and Singulair [Montelukast] ROS: General (negative for fatigue, malaise, weight loss/gain) HEENT (negative for headache, earache, recent vision changes, sinus pain, sore throat) Respiratory (no recent shortness of breath, hemoptysis) CV (negative for chest tightness, palpitations) Musculoskeletal (see HPI) Psych (no depression, anxiety) REFERRING PHYSICIAN: Consultation requested by Jacquelyn Lerma for an opinion regarding wrist injury. My final recommendations will be communicated back to the requesting physician by way of shared Medical record or letter to requesting physician via [place] mail. Jacquelyn Lerma [address] [id number] Prudencio Pedro MD [address] [facility] [address] Bruce Hugo MD documented in this encounter [facility] 04-18-2023 Note HNO ID: [id number] Author: Glenis Wick RT(R) Service: ? Author Type: Mortar Carrier Type: Progress Notes Filed: 04/18/2023 9:36 AM Note Text: Radiology Service Progress Note PATIENT NAME: Tracy Vazquez DATE OF SERVICE: April 18, 2023 TIME: 9:22 AM PATIENT IDENTITY VERIFICATION COMPLETED USING TWO (2) IDENTIFIERS: Name and Date of confirmed by patient verbally. FALL SCREENING: Has the patient had 2 falls in the last year or 1 fall with injury or currently using an Ambulatory Assistive Device (Walker, Cane, Wheelchair, Crutches, etc.)? No PATIENT GENDER DATA: Female. status: : No status: NO. PATIENT RELEVANT IMPLANT DATA REVIEWED: Yes RADIOLOGY DEPARTMENT: General X-ray: Exam(s) Completed: Rib X-Ray: Left Upper Extremity X-Ray(s): Wrist, left PERIPHERAL IV DATA: Not applicable SIGNED BY: RT Mayra(R) April 18, 2023 9:22 AM [facility] 04-18-2023 Note HNO ID: [id number] Author: Jacquelyn Lerma APRN.FLAT BREAKDOWN PROCESSOR Service: ? Author Type: Nurse Practitioner Type: Progress Notes Filed: 04/18/2023 11:57 AM Note Text: Chief Complaint Patient presents with: Wrist Pain: Left wrist X 2 days after fall rib pain: X 2 days after fall HPI Tracy Vazquez is a 53 year old female who presents here today for Above Complaints.. Patient presents for fall. Patient tripped on elevated sidewalk on Tuesday and landed on her left side. Patient reports left rib and wrist pain. Patient reports hitting her head but had no LOC and denies headache, dizziness, changes in vision. Past medical history, appointments, medications, allergies reviewed. Previous Medical History PAST MEDICAL HISTORY Diagnosis Date Allergies On immunotherapy Anxiety Brain aneurysm Reprots from taking LSD- no surgery for this Emphysema lung (HCC) GERD (gastroesophageal reflux disease) Hepatitis B reports she is clear HIV (human immunodeficiency virus infection) ([facility]) 2009 Dr. Mcdonald-ID Persistent cough 07/2022 Tobacco use disorder Previous Surgical History PAST SURGICAL HISTORY Procedure Laterality Date BREAST AUGMENTATION W/PROSTHETIC IMPLANT Bilateral 1995 under the muscle Family History FAMILY HISTORY Problem Relation Age of Onset Emphysema Mother other (lung cancer) Mother Cancer Father prostate Breast Cancer Maternal Aunt Bipolar disorder Sister other (mental health) Maternal Grandmother No Known Problems Maternal Grandfather Breast Cancer Paternal Grandmother Patient Allergies ALLERGIES Allergen Reactions House Dust Mite Other: See Comments Itchy eyes Singulair [Monteluk* Other: See Comments Had nightmares Current Medications Current Outpatient Medications on File Prior to Visit Medication Sig cholecalciferol (VITAMIN D-3) 50 mcg (2,000 unit) tablet Take 2,000 Units by mouth once daily. cetirizine (ZYRTEC) 10 mg tablet Take 1 tablet by mouth once daily. buPROPion SR (WELLBUTRIN SR) 150 mg 12 hr tablet Take 1 tablet by mouth twice daily. (Patient not taking: Reported on 03/01/2023) lansoprazole (PREVACID) 15 mg capsule Take 1 capsule by mouth daily before breakfast. 1/2 hr before meal. albuterol HFA (VENTOLIN HFA) 90 mcg/actuation inhaler Inhale 2 Puffs as instructed every 4 hours as needed. ancvxcijryv-dezuwkgqkrzet-bpzgpg vir alafenamide (BIKTARVY) 50-200-25 mg per tablet Take 1 tablet by mouth once daily. No current facility-administered medications on file prior to visit. Social History Social History Tobacco Use Smoking status: Every Day Packs/day: 2.00 Years: 38.00 Additional pack years: 0.00 Total pack years: 76.00 Types: Cigarettes Smokeless tobacco: Never Tobacco comments: Currently smoking approx 0.5 PPD Substance Use Topics Alcohol use: Not Currently Drug use: Not Currently Types: Marijuana, LSD, Crack Cocaine Comment: past hx Review of Symptoms REVIEW OF SYSTEMS SEE HPI EXAM: BP 110/76 Pulse 76 Resp 16 Wt 51.7 kg (114 lb) BMI 21.54 kg/m? General Appearance: Well appearing, alert, in no acute distress, well-hydrated, well nourished.. Head: Normocephalic, no masses, lesions, tenderness or abnormalities. Extremities: Positive findings: joint location: on left wrist pain, swelling, painful movement, and loss of ROM. Pain with making fist. Health Maintenance List Hepatitis B Vaccine(1 of 3 - 3-dose series) Never done Meningococcal Conjugate Vaccine(1 - Risk 2-dose series) Never done Hepatitis A Vaccine(1 of 2 - Risk 2-dose series) Never done Shingrix Vaccine(1 of 2) Never done Colorectal Cancer Screening Never done Lung Cancer Screening Never done Covid-19 Vaccine(6 - Pfizer risk series) due on 08/24/2022 Influenza Vaccine(1) due on 03/18/2023 Mammogram Screening due on 09/13/2023 Pap Testing due on 03/12/2024 HPV Testing due on 03/12/2024 Annual PCP Team Chronic Disease Visit due on 04/13/2024 Diabetes Screening due on 08/02/2025 Lipid Screening due on 01/26/2027 DTaP,Tdap,Td Vaccine(2 - Td or Tdap) due on 07/06/2032 Alpha-1 Antitrypsin Deficiency Screening Completed Spirometry Completed Depression Assessment Completed Hepatitis C Screening Completed Pneumococcal Vaccine Completed HPV Vaccine Aged Out MMR Vaccine Discontinued ASSESSMENT/PLAN: 1. Fall, initial encounter - ICD9: E888.9, ICD10: W19.XXXA (primary diagnosis) - XR WRIST GENERAL 3V PA/LAT/OBL LEFT - XR RIBS 2V AP/OBL LEFT - XR RIBS 2V AP/OBL LEFT - XR WRIST GENERAL 3V PA/LAT/OBL LEFT 2. Rib pain on left side - ICD9: 786.50, ICD10: R07.81 - Chest X-ray today. - XR RIBS 2V AP/OBL LEFT - XR RIBS 2V AP/OBL LEFT 3. Injury of left wrist, initial encounter - ICD9: 959.3, ICD10: S69.92XA - XR WRIST GENERAL 3V PA/LAT/OBL LEFT - XR WRIST GENERAL 3V PA/LAT/OBL LEFT Jacquelyn Lerma, DARIUS.FLAT BREAKDOWN PROCESSOR Patient was notified to return to office as her xray showed a left wrist fr (more content not included)... [facility] 04-13-2023 Note HNO ID: [id number] Author: Glenis Wick RT(R) Service: ? Author Type: Mortar Carrier Type: Progress Notes Filed: 04/13/2023 5:07 PM Note Text: Radiology Service Progress Note PATIENT NAME: Tracy Vazquez DATE OF SERVICE: April 13, 2023 TIME: 4:58 PM PATIENT IDENTITY VERIFICATION COMPLETED USING TWO (2) IDENTIFIERS: Name and Date of confirmed by patient verbally. FALL SCREENING: Has the patient had 2 falls in the last year or 1 fall with injury or currently using an Ambulatory Assistive Device (Walker, Cane, Wheelchair, Crutches, etc.)? No PATIENT GENDER DATA: Female. status: : No status: NO. PATIENT RELEVANT IMPLANT DATA REVIEWED: Yes RADIOLOGY DEPARTMENT: General X-ray: Exam(s) Completed: Chest X-Ray PERIPHERAL IV DATA: Not applicable SIGNED BY: RT Mayra(R) April 13, 2023 4:58 PM [facility] 04-13-2023 Note HNO ID: [id number] Author: Prudencio Pedro MD Service: ? Author Type: Physician Type: Progress Notes Filed: 04/14/2023 11:29 AM Note Text: Chief Complaint Patient presents with: Cough: HPI Tracy Vazquez is a 53 year old female who presents here today for Above Complaints.. Patient has been evaluated by pulmonology and in on 03/14 and 02/27 for bronchitis and viral illness. Treated with Z pack and then with 7 days of levaquin which she finished 2 days ago. Since finishing her 2nd round of abx her fatigue has improved and is coughing less, but still brings up clear sputum with her cough. Phlegm production increased. Taking nyquil and dayquil OTC for symptoms. Using albuterol inhaler about once per week for wheezing. Admits to chest congestion and chest pain with coughing, ear pain, frontal sinus pressure. Denies fever/chills, SOB, sore throat, lymphadenopathy. Still smoking 1/2 pack per day. Not ready to quit smoking. Past medical history, appointments, medications, allergies reviewed. Previous Medical History PAST MEDICAL HISTORY Diagnosis Date Allergies On immunotherapy Anxiety Brain aneurysm Reprots from taking LSD- no surgery for this Emphysema lung (HCC) GERD (gastroesophageal reflux disease) Hepatitis B reports she is clear HIV (human immunodeficiency virus infection) ([facility]) 2009 Dr. Mcdonald-ID Persistent cough 07/2022 Tobacco use disorder Previous Surgical History PAST SURGICAL HISTORY Procedure Laterality Date BREAST AUGMENTATION W/PROSTHETIC IMPLANT Bilateral 1995 under the muscle Family History FAMILY HISTORY Problem Relation Age of Onset Emphysema Mother other (lung cancer) Mother Cancer Father prostate Breast Cancer Maternal Aunt Bipolar disorder Sister other (mental health) Maternal Grandmother No Known Problems Maternal Grandfather Breast Cancer Paternal Grandmother Patient Allergies ALLERGIES Allergen Reactions House Dust Mite Other: See Comments Itchy eyes Singulair [Monteluk* Other: See Comments Had nightmares Current Medications Current Outpatient Medications on File Prior to Visit Medication Sig azithromycin (ZITHROMAX) 250 mg tablet Take 2 tablets on first day then one daily for 4 more days (Patient not taking: Reported on 03/30/2023) cholecalciferol (VITAMIN D-3) 50 mcg (2,000 unit) tablet Take 2,000 Units by mouth once daily. cetirizine (ZYRTEC) 10 mg tablet Take 1 tablet by mouth once daily. nicotine (NICODERM) 21 mg/24 hr Apply 1 Patch as directed every 24 hours. (Patient not taking: Reported on 01/04/2023) Lactobacillus acidophilus (FLORAJEN ACIDOPHILUS) 20 billion cell cap Take 1 capsule by mouth once daily. (Patient not taking: Reported on 11/01/2022) buPROPion SR (WELLBUTRIN SR) 150 mg 12 hr tablet Take 1 tablet by mouth twice daily. (Patient not taking: Reported on 03/01/2023) cholecalciferol, Vitamin D3, (VITAMIN D3) 1,250 mcg (50,000 unit) cap capsule Take 1 capsule by mouth one time a week. (Patient not taking: Reported on 03/01/2023) lansoprazole (PREVACID) 15 mg capsule Take 1 capsule by mouth daily before breakfast. 1/2 hr before meal. albuterol HFA (VENTOLIN HFA) 90 mcg/actuation inhaler Inhale 2 Puffs as instructed every 4 hours as needed. tbhwxisxjgj-fwzajxwdcxfgf-vptnio vir alafenamide (BIKTARVY) 50-200-25 mg per tablet Take 1 tablet by mouth once daily. No current facility-administered medications on file prior to visit. Social History Social History Tobacco Use Smoking status: Every Day Packs/day: 2.00 Years: 38.00 Additional pack years: 0.00 Total pack years: 76.00 Types: Cigarettes Smokeless tobacco: Never Tobacco comments: Currently smoking approx 0.5 PPD Substance Use Topics Alcohol use: Not Currently Drug use: Not Currently Types: Marijuana, LSD, Crack Cocaine Comment: past hx Review of Symptoms REVIEW OF SYSTEMS GENERAL: No weight loss, malaise or fevers RESPIRATORY: See HPI CARDIOVASCULAR: Negative for chest pain, leg swelling, hypertension, CHF or palpitations GI: No nausea, vomiting, or diarrhea SKIN: Negative for lesions, rash, and itching EXAM: BP 100/78 Pulse 79 Temp 36.4 ?C (97.6 ?F) Resp 16 Wt 54.4 kg (120 lb) SpO2 98% BMI 22.67 kg/m? General Appearance: Well appearing, alert, in no acute distress, well-hydrated, well nourished.. Skin: Skin color, texture, turgor normal, no suspicious rashes or lesions. Head: Normocephalic, no masses, lesions, tenderness or abnormalities. Eyes: Anicteric sclera. Pupils are equally round and reactive to light. Extraocular movements are intact. . Ears: External ears normal, canals clear. Oropharynx: Lips, mucosa, and tongue normal, teeth and gums normal, oropharynx normal. Neck: Supple, no adenopathy; thyroid symmetric, normal size, no bruits. Lungs: Lungs clear to auscultation. No wheezing, rhonchi, rales.. Heart: RRR without murmur, gallop, or rubs. (more content not included)... [facility] 04-05-2023 Miscellaneous Notes Patient calling and states Z pack given at [facility] 03/14 was not helpful. She was seen in on 03/30 and viral panel negative. She does not have a fever. Cough is productive of thick whitish sputum and she c/o of chest discomfort from forceful coughing. Asking if an additional course of ATB could be called to [facility] [place]? Elba Bass LPN documented in this encounter [facility] 03-31-2023 Miscellaneous Notes Pt notified of results with verbalizes understanding. Ephraim Lara LPN Left message for patient to return call. Azalea Betancourt LPN ----- Message from Mana Ribeiro APRN.FLAT BREAKDOWN PROCESSOR sent at 03/31/2023 7:11 AM EDT ----- Please advise patient the COVID and flu test was negative. documented in this encounter [facility] 03-30-2023 Note HNO ID: [id number] Author: Rob Chirinos APRN.FLAT BREAKDOWN PROCESSOR Service: ? Author Type: Nurse Practitioner Type: Progress Notes Filed: 03/30/2023 3:59 PM Note Text: Subjective HPI Nontoxic-appearing female presents urgent care chief complaint loose stools. Duration of symptoms 5 days. Associated symptoms loose stool in the morning. States she does have some transient nausea and cramping throughout the day. This did resolve. Presents today due to loose stools for the last 5 days in the morning. Has not taken any OTC medication. States only 1 loose stool a day. No blood. Overall feels well. 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 Denies any fever cough chest pain shortness of breath pleuritic pain hemoptysis or rashes. Past medical history prescription medications allergies reviewed. .Patient presents with: Nausea: With diarrhea x5 days PAST MEDICAL HISTORY Diagnosis Date Allergies On immunotherapy Anxiety Brain aneurysm Reprots from taking LSD- no surgery for this Emphysema lung (HCC) GERD (gastroesophageal reflux disease) Hepatitis B reports she is clear HIV (human immunodeficiency virus infection) (HCC) 2009 Dr. Mcdonald-ID Persistent cough 07/2022 Tobacco use disorder PAST SURGICAL HISTORY Procedure Laterality Date BREAST AUGMENTATION W/PROSTHETIC IMPLANT Bilateral 1995 under the muscle ALLERGIES House Dust Mite and Singulair [Montelukast] MEDICATIONS cholecalciferol (VITAMIN D-3) 50 mcg (2,000 unit) tablet Take 2,000 Units by mouth once daily. cetirizine (ZYRTEC) 10 mg tablet Take 1 tablet by mouth once daily. albuterol HFA (VENTOLIN HFA) 90 mcg/actuation inhaler Inhale 2 Puffs as instructed every 4 hours as needed. vhszqpbjpkc-okjlbbfoonhih-iuayqp vir alafenamide (BIKTARVY) 50-200-25 mg per tablet Take 1 tablet by mouth once daily. azithromycin (ZITHROMAX) 250 mg tablet Take 2 tablets on first day then one daily for 4 more days (Patient not taking: Reported on 03/30/2023) nicotine (NICODERM) 21 mg/24 hr Apply 1 Patch as directed every 24 hours. (Patient not taking: Reported on 01/04/2023) Lactobacillus acidophilus (FLORAJEN ACIDOPHILUS) 20 billion cell cap Take 1 capsule by mouth once daily. (Patient not taking: Reported on 11/01/2022) buPROPion SR (WELLBUTRIN SR) 150 mg 12 hr tablet Take 1 tablet by mouth twice daily. (Patient not taking: Reported on 03/01/2023) cholecalciferol, Vitamin D3, (VITAMIN D3) 1,250 mcg (50,000 unit) cap capsule Take 1 capsule by mouth one time a week. (Patient not taking: Reported on 03/01/2023) lansoprazole (PREVACID) 15 mg capsule Take 1 capsule by mouth daily before breakfast. 1/2 hr before meal. FAMILY HISTORY Problem Relation Age of Onset Emphysema Mother other (lung cancer) Mother Cancer Father prostate Breast Cancer Maternal Aunt Bipolar disorder Sister other (mental health) Maternal Grandmother No Known Problems Maternal Grandfather Breast Cancer Paternal Grandmother Social History Tobacco Use Smoking status: Every Day Packs/day: 2.00 Years: 38.00 Additional pack years: 0.00 Total pack years: 76.00 Types: Cigarettes Smokeless tobacco: Never Tobacco comments: Currently smoking approx 0.5 PPD Substance Use Topics Alcohol use: Not Currently Drug use: Not Currently Types: Marijuana, LSD, Crack Cocaine Comment: past hx BP 125/88 Pulse 84 Temp 37.1 ?C (98.7 ?F) Resp 18 Wt 54.1 kg (119 lb 3.2 oz) SpO2 100% BMI 22.52 kg/m? Review of Systems Constitutional: Negative for chills, fever and malaise/fatigue. HENT: Negative for congestion, ear discharge, ear pain, sinus pain and sore throat. Eyes: Negative for blurred vision, pain, discharge and redness. Respiratory: Negative for cough, hemoptysis, sputum production, shortness of breath, wheezing and stridor. Cardiovascular: Negative for chest pain. Gastrointestinal: Positive for diarrhea and nausea. Negative for abdominal pain and vomiting. Musculoskeletal: Negative for myalgias. Skin: Negative for itching and rash. Neurological: Negative for dizziness and headaches. Objective Physical Exam Constitutional: General: She is not in acute distress. Appearance: She is not diaphoretic. HENT: Head: Normocephalic. Jaw: No trismus, tenderness, swelling or pain on movement. Mouth/Throat: Mouth: Mucous membranes are moist. Pharynx: Oropharynx is clear. Uvula midline. No pharyngeal swelling, oropharyngeal exudate, posterior oropharyngeal erythema or uvula swelling. Eyes: Conjunctiva/sclera: Conjunctivae normal. Pupils: Pupils are equal, round, and reactive to light. Cardiovascular: Rate and Rhythm: Normal rate and regular rhythm. Heart sounds: Normal heart sounds. Pulmonary: Effort: Pulmonary effort is normal. No tachypnea, accessory muscle usage or respiratory distress. Breath sounds: Normal breath sounds. No stridor. No wheezing, rhonchi or rales. Abdominal: General: There is no distens (more content not included)... [facility] 03-30-2023 History of Presen t illness Narrative Subjective HPI Nontoxic-appearing female presents urgent care chief complaint loose stools. Duration of symptoms 5 days. Associated symptoms loose stool in the morning. States she does have some transient nausea and cramping throughout the day. This did resolve. Presents today due to loose stools for the last 5 days in the morning. Has not taken any OTC medication. States only 1 loose stool a day. No blood. Overall feels well. 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 Denies any fever cough chest pain shortness of breath pleuritic pain hemoptysis or rashes. Past medical history prescription medications allergies reviewed. .Patient presents with: Nausea: With diarrhea x5 days PAST MEDICAL HISTORY Diagnosis Date Allergies On immunotherapy Anxiety Brain aneurysm Reprots from taking LSD- no surgery for this Emphysema lung (HCC) GERD (gastroesophageal reflux disease) Hepatitis B reports she is clear HIV (human immunodeficiency virus infection) ([facility]) 2009 Dr. Mcdonald-ID Persistent cough 07/2022 Tobacco use disorder PAST SURGICAL HISTORY Procedure Laterality Date BREAST AUGMENTATION W/PROSTHETIC IMPLANT Bilateral 1995 under the muscle ALLERGIES House Dust Mite and Singulair [Montelukast] MEDICATIONS cholecalciferol (VITAMIN D-3) 50 mcg (2,000 unit) tablet Take 2,000 Units by mouth once daily. cetirizine (ZYRTEC) 10 mg tablet Take 1 tablet by mouth once daily. albuterol HFA (VENTOLIN HFA) 90 mcg/actuation inhaler Inhale 2 Puffs as instructed every 4 hours as needed. zcfdfqckldy-bazfpuqkgroyd-lihrnw vir alafenamide (BIKTARVY) 50-200-25 mg per tablet Take 1 tablet by mouth once daily. azithromycin (ZITHROMAX) 250 mg tablet Take 2 tablets on first day then one daily for 4 more days (Patient not taking: Reported on 03/30/2023) nicotine (NICODERM) 21 mg/24 hr Apply 1 Patch as directed every 24 hours. (Patient not taking: Reported on 01/04/2023) Lactobacillus acidophilus (FLORAJEN ACIDOPHILUS) 20 billion cell cap Take 1 capsule by mouth once daily. (Patient not taking: Reported on 11/01/2022) buPROPion SR (WELLBUTRIN SR) 150 mg 12 hr tablet Take 1 tablet by mouth twice daily. (Patient not taking: Reported on 03/01/2023) cholecalciferol, Vitamin D3, (VITAMIN D3) 1,250 mcg (50,000 unit) cap capsule Take 1 capsule by mouth one time a week. (Patient not taking: Reported on 03/01/2023) lansoprazole (PREVACID) 15 mg capsule Take 1 capsule by mouth daily before breakfast. 1/2 hr before meal. FAMILY HISTORY Problem Relation Age of Onset Emphysema Mother other (lung cancer) Mother Cancer Father prostate Breast Cancer Maternal Aunt Bipolar disorder Sister other (mental health) Maternal Grandmother No Known Problems Maternal Grandfather Breast Cancer Paternal Grandmother Social History Tobacco Use Smoking status: Every Day Packs/day: 2.00 Years: 38.00 Additional pack years: 0.00 Total pack years: 76.00 Types: Cigarettes Smokeless tobacco: Never Tobacco comments: Currently smoking approx 0.5 PPD Substance Use Topics Alcohol use: Not Currently Drug use: Not Currently Types: Marijuana, LSD, Crack Cocaine Comment: past hx BP 125/88 Pulse 84 Temp 37.1 C (98.7 F) Resp 18 Wt 54.1 kg (119 lb 3.2 oz) SpO2 100% BMI 22.52 kg/m Review of Systems Constitutional: Negative for chills, fever and malaise/fatigue. HENT: Negative for congestion, ear discharge, ear pain, sinus pain and sore throat. Eyes: Negative for blurred vision, pain, discharge and redness. Respiratory: Negative for cough, hemoptysis, sputum production, shortness of breath, wheezing and stridor. Cardiovascular: Negative for chest pain. Gastrointestinal: Positive for diarrhea and nausea. Negative for abdominal pain and vomiting. Musculoskeletal: Negative for myalgias. Skin: Negative for itching and rash. Neurological: Negative for dizziness and headaches. Objective Physical Exam Constitutional: General: She is not in acute distress. Appearance: She is not diaphoretic. HENT: Head: Normocephalic. Jaw: No trismus, tenderness, swelling or pain on movement. Mouth/Throat: Mouth: Mucous membranes are moist. Pharynx: Oropharynx is clear. Uvula midline. No pharyngeal swelling, oropharyngeal exudate, posterior oropharyngeal erythema or uvula swelling. Eyes: Conjunctiva/sclera: Conjunctivae normal. Pupils: Pupils are equal, round, and reactive to light. Cardiovascular: Rate and Rhythm: Normal rate and regular rhythm. Heart sounds: Normal heart sounds. Pulmonary: Effort: Pulmonary effort is normal. No tachypnea, accessory muscle usage or respiratory distress. Breath sounds: Normal breath sounds. No stridor. No wheezing, rhonchi or rales. Abdominal: General: There is no distension. Palpations: Abdomen is soft. Tenderness: There is no abdominal tenderness. There is no guarding or rebound. Musculoskeletal: Cervical back: Normal range of motion and neck supple. No edema, erythema, rigidity or tenderness. No pain with movement. Normal range of motion. Lymphadenopathy: Cervical: No cervical adenopathy. Skin: General: Skin is warm and dry. Neurological: Mental Status: She is alert and oriented to person, place, and time. ASSESSMENT/PLAN: 1. Viral illness - ICD9: 079.99, ICD10: B34.9 (primary diagnosis) - COVID & INFLUENZA A/B NAAT, ROUTINE 2. Loose stools - ICD9: 787.7, ICD10: R19.5 Patient diagnosed with loose stools. Suspicious of viral etiology at this time. No evidence of acute abdomen. Treat conservatively at this time. Patient was educated on supportive therapies. Patient will follow up with primary care provider as needed. Patient was instructed to immediately proceed to emergency room for any new, worsening, or symptoms lasting longer than anticipated. The patient's clinical presentation is otherwise unremarkable at this time. Based on exam and clinical finding, the patient is stable for discharge. Plan of care was discussed with patient. Patient verbalizes understanding and agrees to plan of care. This note was generated using [employer] software. It may contain errors in wording, punctuation, or spelling. Rob Chirinos APRN.ANALILIA documented in this encounter [facility] 03-14-2023 Miscellaneous Notes Left detailed message on identified voicemail. The following approved medication requests have been transmitted electronically. Requested Prescriptions Signed Prescriptions Disp Refills miconazole (MONISTAT) 2 % vaginal cream 54 g 0 Sig: Use 1 Applicator vaginally daily at bedtime for 7 days. Authorizing Provider: ILIANA ALBARADO Pharmacy Information Pharmacy Address [phone] [place] [address] Rx sent To be evaluated in office if symptoms worsen or do not improve Pt stopped in the office and reports that she was treated for BV through [facility] on 02/17/23 and is now on another antibiotic for bronchitis. Pt is now having yeast sxs for the past couple days and does not have money to purchase Monistat 7. She is asking that something be sent into her pharmacy. [facility]. Please advise. Frances Armijo LPN documented in this encounter [facility] 03-14-2023 Note HNO ID: [id number] Author: Judith Cassidy MD Service: ? Author Type: Physician Type: Progress Notes Filed: 03/14/2023 5:07 PM Note Text: . [facility] [place] Note Patient name: Tracy Vazquez PCP: Prudencio Pedro MD CC: follow-up COPD HPI: Tracy Vazquez 53 year old female current 40 pack year smoker with PMH significant for HIV, GERD, Hep B, history of crack cocaine use, atopy on IT and emphysema. PFTs only significant for small airways obstruction that responds to albuterol. Current therapy with as needed albuterol. She has chronic bronchitis. Tends to cough up phlegm more in the mornings. It is thick and difficult to expectorate. She has been using liquid Mucinex. Sputum is normally clear in color but more recently has noted some discoloration. No fevers or chills. No chest pain. No significant shortness of breath or wheezing. She continues to smoke about a pack a day. She did not tolerate nicotine patches as it caused dizziness. No recent ED visits or hospitalization. Had more trouble with her allergies this season. She continues on immunotherapy and has been using vbph-nmj-qdyeuqu antihistamine but she has not been using her nasal spray. DATA: Labs: Component Ref Range AND Units 6 mo ago Alpha 1 Antitrypsin 90 - 200 mg/dL 134 PAST MEDICAL HISTORY Diagnosis Date Allergies On immunotherapy Anxiety Brain aneurysm Reprots from taking LSD- no surgery for this Emphysema lung (HCC) GERD (gastroesophageal reflux disease) Hepatitis B reports she is clear HIV (human immunodeficiency virus infection) ([facility]) 2009 Dr. Mcdonald-ID Persistent cough 07/2022 Tobacco use disorder ALLERGIES Allergen Reactions House Dust Mite Other: See Comments Itchy eyes Singulair [Monteluk* Other: See Comments Had nightmares azithromycin (ZITHROMAX) 250 mg tablet Take 2 tablets on first day then one daily for 4 more days cholecalciferol (VITAMIN D-3) 50 mcg (2,000 unit) tablet Take 2,000 Units by mouth once daily. triamcinolone acetonide (KENALOG) 0.1 % cream Apply 1 application to affected area twice daily for 14 days. Apply sparingly to area for rash/itching. cetirizine (ZYRTEC) 10 mg tablet Take 1 tablet by mouth once daily. nicotine (NICODERM) 21 mg/24 hr Apply 1 Patch as directed every 24 hours. (Patient not taking: Reported on 01/04/2023) Lactobacillus acidophilus (FLORAJEN ACIDOPHILUS) 20 billion cell cap Take 1 capsule by mouth once daily. (Patient not taking: Reported on 11/01/2022) buPROPion SR (WELLBUTRIN SR) 150 mg 12 hr tablet Take 1 tablet by mouth twice daily. (Patient not taking: Reported on 03/01/2023) cholecalciferol, Vitamin D3, (VITAMIN D3) 1,250 mcg (50,000 unit) cap capsule Take 1 capsule by mouth one time a week. (Patient not taking: Reported on 03/01/2023) lansoprazole (PREVACID) 15 mg capsule Take 1 capsule by mouth daily before breakfast. 1/2 hr before meal. albuterol HFA (VENTOLIN HFA) 90 mcg/actuation inhaler Inhale 2 Puffs as instructed every 4 hours as needed. phtpchzlkom-bmeizqnuxnfkf-buemuy vir alafenamide (BIKTARVY) 50-200-25 mg per tablet Take 1 tablet by mouth once daily. Social History Tobacco Use Smoking status: Every Day Packs/day: 2.00 Years: 38.00 Additional pack years: 0.00 Total pack years: 76.00 Types: Cigarettes Smokeless tobacco: Never Tobacco comments: Currently smoking approx 0.5 PPD Substance Use Topics Alcohol use: Not Currently Drug use: Not Currently Types: Marijuana, LSD, Crack Cocaine Comment: past hx FAMILY HISTORY Problem Relation Age of Onset Emphysema Mother other (lung cancer) Mother Cancer Father prostate Breast Cancer Maternal Aunt Bipolar disorder Sister other (mental health) Maternal Grandmother No Known Problems Maternal Grandfather Breast Cancer Paternal Grandmother PAST SURGICAL HISTORY Procedure Laterality Date BREAST AUGMENTATION W/PROSTHETIC IMPLANT Bilateral 1995 under the muscle [facility], Social history, family history and surgical history reviewed and updated in EMR REVIEW OF SYSTEMS: CONSTITUTIONAL: No fevers, chills, nightsweats, unintended weight loss HEENT: Positive nasal congestion/sinus symptoms, problematic allergy problems. CARDIOVASCULAR: No chest pain, dyspnea, palpitations, orthopnea, PND, edema. PULM: See HPI GI: No dysphagia/odynophagia, problematic reflux NEURO: No new balance problems, peripheral weakness/paresthesias or numbness of concern. PSY: No concerns regarding depression, anxiety INTEGUMENTARY: No new skin changes, rashes, eczema PHYSICAL EXAMINATION: BP 122/80 Pulse 66 Resp 15 Wt 121 lb (54.9kg) SpO2 100% General Appearance: Appears older than actual age, NAD. Skin: Skin color, texture, turgor normal, no suspicious rashes or lesions. Head: Normocephalic, no masses, lesions, tenderness or abnormalities. Eyes: Sclera, conjunctiva normal. Oropharynx: Po (more content not included)... [facility] 03-14-2023 History of Presen t illness Narrative Images from the original note were not included. . [facility] [place] Note Patient name: Tracy Vazquez PCP: Prudencio Pedro MD CC: follow-up COPD HPI: Tracy Vazquez 53 year old female current 40 pack year smoker with PMH significant for HIV, GERD, Hep B, history of crack cocaine use, atopy on IT and emphysema. PFTs only significant for small airways obstruction that responds to albuterol. Current therapy with as needed albuterol. She has chronic bronchitis. Tends to cough up phlegm more in the mornings. It is thick and difficult to expectorate. She has been using liquid Mucinex. Sputum is normally clear in color but more recently has noted some discoloration. No fevers or chills. No chest pain. No significant shortness of breath or wheezing. She continues to smoke about a pack a day. She did not tolerate nicotine patches as it caused dizziness. No recent ED visits or hospitalization. Had more trouble with her allergies this season. She continues on immunotherapy and has been using ztnc-ryi-vfwdzos antihistamine but she has not been using her nasal spray. DATA: Labs: Component Ref Range & Units 6 mo ago Alpha 1 Antitrypsin 90 - 200 mg/dL 134 PAST MEDICAL HISTORY Diagnosis Date Allergies On immunotherapy Anxiety Brain aneurysm Reprots from taking LSD- no surgery for this Emphysema lung (HCC) GERD (gastroesophageal reflux disease) Hepatitis B reports she is clear HIV (human immunodeficiency virus infection) ([facility]) 2009 Dr. Mcdonald-ID Persistent cough 07/2022 Tobacco use disorder ALLERGIES Allergen Reactions House Dust Mite Other: See Comments Itchy eyes Singulair [Monteluk* Other: See Comments Had nightmares azithromycin (ZITHROMAX) 250 mg tablet Take 2 tablets on first day then one daily for 4 more days cholecalciferol (VITAMIN D-3) 50 mcg (2,000 unit) tablet Take 2,000 Units by mouth once daily. triamcinolone acetonide (KENALOG) 0.1 % cream Apply 1 application to affected area twice daily for 14 days. Apply sparingly to area for rash/itching. cetirizine (ZYRTEC) 10 mg tablet Take 1 tablet by mouth once daily. nicotine (NICODERM) 21 mg/24 hr Apply 1 Patch as directed every 24 hours. (Patient not taking: Reported on 01/04/2023) Lactobacillus acidophilus (FLORAJEN ACIDOPHILUS) 20 billion cell cap Take 1 capsule by mouth once daily. (Patient not taking: Reported on 11/01/2022) buPROPion SR (WELLBUTRIN SR) 150 mg 12 hr tablet Take 1 tablet by mouth twice daily. (Patient not taking: Reported on 03/01/2023) cholecalciferol, Vitamin D3, (VITAMIN D3) 1,250 mcg (50,000 unit) cap capsule Take 1 capsule by mouth one time a week. (Patient not taking: Reported on 03/01/2023) lansoprazole (PREVACID) 15 mg capsule Take 1 capsule by mouth daily before breakfast. 1/2 hr before meal. albuterol HFA (VENTOLIN HFA) 90 mcg/actuation inhaler Inhale 2 Puffs as instructed every 4 hours as needed. rxpdyfpcjyv-uxrfdbzrlvwuv-vwpibh vir alafenamide (BIKTARVY) 50-200-25 mg per tablet Take 1 tablet by mouth once daily. Social History Tobacco Use Smoking status: Every Day Packs/day: 2.00 Years: 38.00 Additional pack years: 0.00 Total pack years: 76.00 Types: Cigarettes Smokeless tobacco: Never Tobacco comments: Currently smoking approx 0.5 PPD Substance Use Topics Alcohol use: Not Currently Drug use: Not Currently Types: Marijuana, LSD, Crack Cocaine Comment: past hx FAMILY HISTORY Problem Relation Age of Onset Emphysema Mother other (lung cancer) Mother Cancer Father prostate Breast Cancer Maternal Aunt Bipolar disorder Sister other (mental health) Maternal Grandmother No Known Problems Maternal Grandfather Breast Cancer Paternal Grandmother PAST SURGICAL HISTORY Procedure Laterality Date BREAST AUGMENTATION W/PROSTHETIC IMPLANT Bilateral 1995 under the muscle PMH, Social history, family history and surgical history reviewed and updated in EMR REVIEW OF SYSTEMS: CONSTITUTIONAL: No fevers, chills, nightsweats, unintended weight loss HEENT: Positive nasal congestion/sinus symptoms, problematic allergy problems. CARDIOVASCULAR: No chest pain, dyspnea, palpitations, orthopnea, PND, edema. PULM: See HPI GI: No dysphagia/odynophagia, problematic reflux NEURO: No new balance problems, peripheral weakness/paresthesias or numbness of concern. PSY: No concerns regarding depression, anxiety INTEGUMENTARY: No new skin changes, rashes, eczema PHYSICAL EXAMINATION: BP 122/80 Pulse 66 Resp 15 Wt 121 lb (54.9kg) SpO2 100% General Appearance: Appears older than actual age, NAD. Skin: Skin color, texture, turgor normal, no suspicious rashes or lesions. Head: Normocephalic, no masses, lesions, tenderness or abnormalities. Eyes: Sclera, conjunctiva normal. Oropharynx: Poor dentition, no thrush. Lungs: Not labored, normal to percussion, no wheezes or crackles. Heart: RRR, no murmur. Extremities: No edema, no clubbing. Assessment/Plan: Chronic bronchitis -Chronic bronchitis related to her persistent smoking, allergies -Recent change in character of phlegm may be related to acute bronchitis. Symptoms prescription for antibiotic but she does not need oral steroids at this time Emphysema, centrilobular -Smoking cessation strongly encouraged -Continue albuterol as needed -Update pulmonary function testing at next visit Cigarette smoker -Current smoker with sequelae of emphysema -Smoking cessation strongly encouraged -Patient enrolled in lung cancer screening program through [facility]. Due for CT in August Judith Cassidy MD [facility] [place] documented in this encounter [facility] 03-01-2023 Note HNO ID: [id number] Author: Prudencio Pedro MD Service: ? Author Type: Physician Type: Progress Notes Filed: 03/02/2023 8:20 AM Note Text: Chief Complaint Patient presents with: Derm Problem: Patient c/o irritation, burning and peeeling skin to Bilateral hands due to chemicals used at work. Reports Rx medications aren't helping and angelo. Reports [facility] had prescribed something that had helped unsure what it was. HPI Tracy Vazquez is a 53 year old female who presents here today for Above Complaints.. Patient here today for complaint of itching/burning rash on backs of her hands which started about 5 days ago. 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 Has tried trimacinolone lotion and ammonium lactate lotion prescribed at previous OV without much improvement. Had similar rash back in 02/2020 which was related to using bleach to clean around her home and frequent hand washing. Still washing hands frequently with palmolive dish soap. Denies use of alcohol to clean her hands. Past medical history, appointments, medications, allergies reviewed. Previous Medical History PAST MEDICAL HISTORY Diagnosis Date Allergies On immunotherapy Anxiety Brain aneurysm Reprots from taking LSD- no surgery for this Emphysema lung (HCC) GERD (gastroesophageal reflux disease) Hepatitis B reports she is clear HIV (human immunodeficiency virus infection) ([facility]) 2009 Dr. Mcdonald-ID Persistent cough 07/2022 Tobacco use disorder Previous Surgical History PAST SURGICAL HISTORY Procedure Laterality Date BREAST AUGMENTATION W/PROSTHETIC IMPLANT Bilateral 1995 under the muscle Family History FAMILY HISTORY Problem Relation Age of Onset Emphysema Mother other (lung cancer) Mother Cancer Father prostate Breast Cancer Maternal Aunt Bipolar disorder Sister other (mental health) Maternal Grandmother No Known Problems Maternal Grandfather Breast Cancer Paternal Grandmother Patient Allergies ALLERGIES Allergen Reactions House Dust Mite Other: See Comments Itchy eyes Singulair [Monteluk* Other: See Comments Had nightmares Current Medications Current Outpatient Medications on File Prior to Visit Medication Sig cholecalciferol (VITAMIN D-3) 50 mcg (2,000 unit) tablet Take 2,000 Units by mouth once daily. cetirizine (ZYRTEC) 10 mg tablet Take 1 tablet by mouth once daily. albuterol HFA (VENTOLIN HFA) 90 mcg/actuation inhaler Inhale 2 Puffs as instructed every 4 hours as needed. alxsujbjgsw-olmxqrcawioxs-krlkuj vir alafenamide (BIKTARVY) 50-200-25 mg per tablet Take 1 tablet by mouth once daily. clotrimazole (LOTRIMIN) 1 % cream Apply to affected area twice daily for 14 days. (Patient not taking: Reported on 03/01/2023) nicotine (NICODERM) 21 mg/24 hr Apply 1 Patch as directed every 24 hours. (Patient not taking: Reported on 01/04/2023) Lactobacillus acidophilus (FLORAJEN ACIDOPHILUS) 20 billion cell cap Take 1 capsule by mouth once daily. (Patient not taking: Reported on 11/01/2022) buPROPion SR (WELLBUTRIN SR) 150 mg 12 hr tablet Take 1 tablet by mouth twice daily. (Patient not taking: Reported on 03/01/2023) cholecalciferol, Vitamin D3, (VITAMIN D3) 1,250 mcg (50,000 unit) cap capsule Take 1 capsule by mouth one time a week. (Patient not taking: Reported on 03/01/2023) lansoprazole (PREVACID) 15 mg capsule Take 1 capsule by mouth daily before breakfast. 1/2 hr before meal. No current facility-administered medications on file prior to visit. Social History Social History Tobacco Use Smoking status: Every Day Packs/day: 2.00 Years: 38.00 Additional pack years: 0.00 Total pack years: 76.00 Types: Cigarettes Smokeless tobacco: Never Tobacco comments: Currently smoking approx 0.5 PPD Substance Use Topics Alcohol use: Not Currently Drug use: Not Currently Types: Marijuana, LSD, Crack Cocaine Comment: past hx Review of Symptoms REVIEW OF SYSTEMS GENERAL: No weight loss, malaise or fevers SKIN: See HPI EXAM: BP 110/64 Pulse (!) 57 Resp 16 Wt 55 kg (121 lb 3.2 oz) SpO2 97% BMI 22.90 kg/m? General Appearance: Well appearing, alert, in no acute distress, well-hydrated, well nourished.. Skin: dorsum of hands and wrists appear dry/cracked without bleeding. Faint red macular rash present as well. Health Maintenance List HEPATITIS B(1 of 3 - 3-dose series) Never done MENINGOCOCCAL CONJUGATE(1 - Risk 2-dose series) Never done HEPATITIS A(1 of 2 - Risk 2-dose series) Never done SHINGRIX VACCINE(1 of 2) Never done COLORECTAL CANCER SCREENING Never done LUNG CANCER SCREENING Never done COVID-19 VACCINE(6 - Pfizer risk series) due on 08/24/2022 INFLUENZA(1) due on 03/18/2023 MAMMOGRAM due on 09/13/2023 ANNUAL PCP TEAM CHRONIC DISEASE VISIT due on 11/18/2023 PAP TESTING due on 03/12/2024 HPV TESTING due on 03/12/2024 DIABET (more content not included)... [facility] 02-21-2023 Miscellaneous Notes EUGENE 11/17/22 NOV 08/02/22 Roxane Lan MA Patient has been identified by name and date of : Yes Last office visit in this department: 11/17/2022 RX INSTRUCTIONS: Patient aware RX will be sent to pharmacy. No need to notify patient. Patient phones requesting refills as follows: Requested Prescriptions Pending Prescriptions Disp Refills cetirizine (ZYRTEC) 10 mg tablet 30 tablet 2 Sig: Take 1 tablet by mouth once daily. Please review and advise. Stephenie Lafleur documented in this encounter [facility] 02-17-2023 Miscellaneous Notes Pt made aware. Azalea Betancourt LPN Please let patient know she tested positive for bacterial vaginosis. This is not an STD. It is an overgrowth of bacteria. Metronidazole sent to [facility] [place]. Please take all of this medication. Do not drink alcohol while taking this medication. documented in this encounter [facility] 02-16-2023 Note HNO ID: [id number] Author: Pam Garibay PA-C Service: ? Author Type: Physician Revenue Integrity Analyst Type: Progress Notes Filed: 02/16/2023 3:51 PM Note Text: This note was created using Healthrageousriter. Subjective Tracy Vazquez is a 53 year old female. HPI Presents with vaginal discharge over the past 2 weeks. She states she has had thin watery malodorous discharge. She has had some creamy or white discharge the past couple days. Having some pain vaginally. She is having some urinary frequency and urgency. Review of Systems Gastrointestinal: Negative. Genitourinary: Positive for frequency, vaginal discharge and vaginal pain. Negative for dysuria, hematuria and vaginal bleeding. Musculoskeletal: Negative. All other systems reviewed and are negative. PAST MEDICAL HISTORY Diagnosis Date Allergies On immunotherapy Anxiety Brain aneurysm Reprots from taking LSD- no surgery for this Emphysema lung ([facility]) GERD (gastroesophageal reflux disease) Hepatitis B reports she is clear HIV (human immunodeficiency virus infection) ([facility]) 2009 Dr. Mcdonald-ID Persistent cough 07/2022 Tobacco use disorder Current Outpatient Medications Medication Sig Dispense Refill clotrimazole (LOTRIMIN) 1 % cream Apply to affected area twice daily for 14 days. 12 g 0 nicotine (NICODERM) 21 mg/24 hr Apply 1 Patch as directed every 24 hours. (Patient not taking: Reported on 01/04/2023) 42 Patch 0 Lactobacillus acidophilus (FLORAJEN ACIDOPHILUS) 20 billion cell cap Take 1 capsule by mouth once daily. (Patient not taking: Reported on 11/01/2022) 30 capsule 0 buPROPion SR (WELLBUTRIN SR) 150 mg 12 hr tablet Take 1 tablet by mouth twice daily. 60 tablet 2 cholecalciferol, Vitamin D3, (VITAMIN D3) 1,250 mcg (50,000 unit) cap capsule Take 1 capsule by mouth one time a week. 12 capsule 0 lansoprazole (PREVACID) 15 mg capsule Take 1 capsule by mouth daily before breakfast. 1/2 hr before meal. 30 capsule 2 albuterol HFA (VENTOLIN HFA) 90 mcg/actuation inhaler Inhale 2 Puffs as instructed every 4 hours as needed. 1 Inhaler 1 ldqvgqwzavf-igvhomjbtberw-yxryup vir alafenamide (BIKTARVY) 50-200-25 mg per tablet Take 1 tablet by mouth once daily. No current facility-administered medications for this visit. PAST SURGICAL HISTORY Procedure Laterality Date BREAST AUGMENTATION W/PROSTHETIC IMPLANT Bilateral 1995 under the muscle FAMILY HISTORY Problem Relation Age of Onset Emphysema Mother other (lung cancer) Mother Cancer Father prostate Breast Cancer Maternal Aunt Bipolar disorder Sister other (mental health) Maternal Grandmother No Known Problems Maternal Grandfather Breast Cancer Paternal Grandmother Social History Tobacco Use Smoking status: Every Day Packs/day: 2.00 Years: 38.00 Total pack years: 76.00 Types: Cigarettes Smokeless tobacco: Never Tobacco comments: Currently smoking approx 0.5 PPD Substance Use Topics Alcohol use: Not Currently Drug use: Not Currently Types: Marijuana, LSD, Crack Cocaine Comment: past hx Objective BP 100/64 Pulse 87 Temp 36.3 ?C (97.4 ?F) Resp 18 Wt 55.2 kg (121 lb 12.8 oz) SpO2 99% BMI 23.01 kg/m? Physical Exam Vitals reviewed. Constitutional: Appearance: Normal appearance. HENT: Head: Normocephalic and atraumatic. Abdominal: General: Abdomen is flat. Palpations: Abdomen is soft. Tenderness: There is no abdominal tenderness. There is no right CVA tenderness or left CVA tenderness. Skin: General: Skin is warm and dry. Neurological: Mental Status: She is alert. Assessment and Plan ASSESSMENT/PLAN: 1. Vaginal discharge - ICD9: 623.5, ICD10: N89.8 (primary diagnosis) Self swab obtained for BV and yeast. We will treat as indicated. - BACTERIAL VAGINOSIS NAAT - DESTINEE/TRICHOMONAS NAAT 2. Urinary frequency - ICD9: 788.41, ICD10: R35.0 Trace blood present, will send for culture. - UA DIP, URINE (POC) - URINE CULTURE Pam Garibay PA-C [facility] 02-16-2023 History of Presen t illness Narrative This note was created using NoteWriter. Subjective Tracy Vazquez is a 53 year old female. HPI Presents with vaginal discharge over the past 2 weeks. She states she has had thin watery malodorous discharge. She has had some creamy or white discharge the past couple days. Having some pain vaginally. She is having some urinary frequency and urgency. Review of Systems Gastrointestinal: Negative. Genitourinary: Positive for frequency, vaginal discharge and vaginal pain. Negative for dysuria, hematuria and vaginal bleeding. Musculoskeletal: Negative. All other systems reviewed and are negative. PAST MEDICAL HISTORY Diagnosis Date Allergies On immunotherapy Anxiety Brain aneurysm Reprots from taking LSD- no surgery for this Emphysema lung ([facility]) GERD (gastroesophageal reflux disease) Hepatitis B reports she is clear HIV (human immunodeficiency virus infection) ([facility]) 2009 Dr. Mcdonald-ID Persistent cough 07/2022 Tobacco use disorder Current Outpatient Medications Medication Sig Dispense Refill clotrimazole (LOTRIMIN) 1 % cream Apply to affected area twice daily for 14 days. 12 g 0 nicotine (NICODERM) 21 mg/24 hr Apply 1 Patch as directed every 24 hours. (Patient not taking: Reported on 01/04/2023) 42 Patch 0 Lactobacillus acidophilus (FLORAJEN ACIDOPHILUS) 20 billion cell cap Take 1 capsule by mouth once daily. (Patient not taking: Reported on 11/01/2022) 30 capsule 0 buPROPion SR (WELLBUTRIN SR) 150 mg 12 hr tablet Take 1 tablet by mouth twice daily. 60 tablet 2 cholecalciferol, Vitamin D3, (VITAMIN D3) 1,250 mcg (50,000 unit) cap capsule Take 1 capsule by mouth one time a week. 12 capsule 0 lansoprazole (PREVACID) 15 mg capsule Take 1 capsule by mouth daily before breakfast. 1/2 hr before meal. 30 capsule 2 albuterol HFA (VENTOLIN HFA) 90 mcg/actuation inhaler Inhale 2 Puffs as instructed every 4 hours as needed. 1 Inhaler 1 wolexrryyog-ntsxcrpqjsrlo-ixxqgg vir alafenamide (BIKTARVY) 50-200-25 mg per tablet Take 1 tablet by mouth once daily. No current facility-administered medications for this visit. PAST SURGICAL HISTORY Procedure Laterality Date BREAST AUGMENTATION W/PROSTHETIC IMPLANT Bilateral 1995 under the muscle FAMILY HISTORY Problem Relation Age of Onset Emphysema Mother other (lung cancer) Mother Cancer Father prostate Breast Cancer Maternal Aunt Bipolar disorder Sister other (mental health) Maternal Grandmother No Known Problems Maternal Grandfather Breast Cancer Paternal Grandmother Social History Tobacco Use Smoking status: Every Day Packs/day: 2.00 Years: 38.00 Total pack years: 76.00 Types: Cigarettes Smokeless tobacco: Never Tobacco comments: Currently smoking approx 0.5 PPD Substance Use Topics Alcohol use: Not Currently Drug use: Not Currently Types: Marijuana, LSD, Crack Cocaine Comment: past hx Objective BP 100/64 Pulse 87 Temp 36.3 C (97.4 F) Resp 18 Wt 55.2 kg (121 lb 12.8 oz) SpO2 99% BMI 23.01 kg/m Physical Exam Vitals reviewed. Constitutional: Appearance: Normal appearance. HENT: Head: Normocephalic and atraumatic. Abdominal: General: Abdomen is flat. Palpations: Abdomen is soft. Tenderness: There is no abdominal tenderness. There is no right CVA tenderness or left CVA tenderness. Skin: General: Skin is warm and dry. Neurological: Mental Status: She is alert. Assessment and Plan ASSESSMENT/PLAN: 1. Vaginal discharge - ICD9: 623.5, ICD10: N89.8 (primary diagnosis) Self swab obtained for BV and yeast. We will treat as indicated. - BACTERIAL VAGINOSIS NAAT - DESTINEE/TRICHOMONAS NAAT 2. Urinary frequency - ICD9: 788.41, ICD10: R35.0 Trace blood present, will send for culture. - UA DIP, URINE (POC) - URINE CULTURE Pam Garibay PA-C documented in this encounter [facility] 02-15-2023 Note HNO ID: [id number] Author: Louie Monzon PA Service: ? Author Type: Physician Revenue Integrity Analyst Type: Progress Notes Filed: 02/15/2023 1:57 PM Note Text: This note was created using Healthrageousriter. Subjective Tracy Vazquez is a 53 year old female. HPI 53-year-old female presents for rash on right arm. Patient states that she noticed a small ringlike rash on her right arm this morning. She is unsure if she slept wrong and has a ring) or is ringworm. She states that her cat had ringworm a few months ago. She denies any fevers. She states the rash does not itch or burn. No pain. No fevers. No rash anywhere else. No other complaints PAST MEDICAL HISTORY Diagnosis Date Allergies On immunotherapy Anxiety Brain aneurysm Reprots from taking LSD- no surgery for this Emphysema lung ([facility]) GERD (gastroesophageal reflux disease) Hepatitis B reports she is clear HIV (human immunodeficiency virus infection) (HCC) 2009 Dr. Mcdonald-ID Persistent cough 07/2022 Tobacco use disorder PAST SURGICAL HISTORY Procedure Laterality Date BREAST AUGMENTATION W/PROSTHETIC IMPLANT Bilateral 1995 under the muscle ALLERGIES House Dust Mite and Singulair [Montelukast] MEDICATIONS cholecalciferol, Vitamin D3, (VITAMIN D3) 1,250 mcg (50,000 unit) cap capsule Take 1 capsule by mouth one time a week. lansoprazole (PREVACID) 15 mg capsule Take 1 capsule by mouth daily before breakfast. 1/2 hr before meal. albuterol HFA (VENTOLIN HFA) 90 mcg/actuation inhaler Inhale 2 Puffs as instructed every 4 hours as needed. zucxmvljkwv-ejquqjlkplilf-gkflbw vir alafenamide (BIKTARVY) 50-200-25 mg per tablet Take 1 tablet by mouth once daily. clotrimazole (LOTRIMIN) 1 % cream Apply to affected area twice daily for 7 days. nicotine (NICODERM) 21 mg/24 hr Apply 1 Patch as directed every 24 hours. (Patient not taking: Reported on 01/04/2023) Lactobacillus acidophilus (FLORAJEN ACIDOPHILUS) 20 billion cell cap Take 1 capsule by mouth once daily. (Patient not taking: Reported on 11/01/2022) buPROPion SR (WELLBUTRIN SR) 150 mg 12 hr tablet Take 1 tablet by mouth twice daily. FAMILY HISTORY Problem Relation Age of Onset Emphysema Mother other (lung cancer) Mother Cancer Father prostate Breast Cancer Maternal Aunt Bipolar disorder Sister other (mental health) Maternal Grandmother No Known Problems Maternal Grandfather Breast Cancer Paternal Grandmother Social History Tobacco Use Smoking status: Every Day Packs/day: 2.00 Years: 38.00 Total pack years: 76.00 Types: Cigarettes Smokeless tobacco: Never Tobacco comments: Currently smoking approx 0.5 PPD Substance Use Topics Alcohol use: Not Currently Drug use: Not Currently Types: Marijuana, LSD, Crack Cocaine Comment: past hx Review of Systems Constitutional: Negative for chills and fever. HENT: Negative for congestion, ear pain and sore throat. Respiratory: Negative for cough and shortness of breath. Cardiovascular: Negative for chest pain. Gastrointestinal: Negative for diarrhea and vomiting. Skin: Positive for rash. Objective BP 110/76 Pulse 89 Temp 36.6 ?C (97.9 ?F) (Tympanic) Resp 18 Wt 55.4 kg (122 lb 3.2 oz) SpO2 97% BMI 23.09 kg/m? Physical Exam Vitals and nursing note reviewed. Constitutional: General: She is not in acute distress. Appearance: Normal appearance. She is not toxic-appearing. Cardiovascular: Rate and Rhythm: Normal rate and regular rhythm. Pulmonary: Effort: Pulmonary effort is normal. Breath sounds: Normal breath sounds. Skin: General: Skin is warm and dry. Findings: Rash present. Comments: Small ringlike erythematous rash over right upper arm. No fluctuance or abscess. Neurological: Mental Status: She is alert. Assessment and Plan ASSESSMENT/PLAN: 1. Rash - ICD9: 782.1, ICD10: R21 -Suspect tinea corporis. -Rx for clotrimazole. Diagnosis and treatment plan were discussed and questions were answered to the patient's satisfaction. Pt acknowledged understanding of concepts and follow up plan. Specific signs and symptoms that would indicate the need for higher level of care were discussed in detail warranting prompt ER evaluation. KERRI Fragoso [facility] 01-05-2023 Miscellaneous Notes PATIENT NOTIFIED OF SAME. Please notify of negative covid test. Continue comfort measures for symptoms as you would for a cold. Any worsening symptoms follow up with PCP or ER. Mara Kaiser APRN.CNP documented in this encounter [facility] 01-04-2023 Note HNO ID: [id number] Author: Pam Garibay PA-C Service: ? Author Type: Physician Revenue Integrity Analyst Type: Progress Notes Filed: 01/04/2023 11:28 AM Note Text: This note was created using Healthrageousriter. Subjective Tracy Vazquez is a 52 year old female. HPI Patient presents with 2 days of chest congestion and postnasal drip. She denies a fever. No chest pain. Denies any wheezing. She does have a history of emphysema. Has felt short of breath off and on, none now. No diarrhea or vomiting. No ear pain. She would like to be tested for COVID and flu. Denies body aches or chills. Her sputum has been clear. She has a history of HIV. Review of Systems Constitutional: Negative. HENT: Positive for congestion, postnasal drip and rhinorrhea. Negative for ear pain and sore throat. Respiratory: Positive for cough. Negative for chest tightness and wheezing. Cardiovascular: Negative for chest pain. Gastrointestinal: Negative. Genitourinary: Negative. Musculoskeletal: Negative. All other systems reviewed and are negative. 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 Mcdonald-ID Persistent cough 07/2022 Tobacco use disorder Current Outpatient Medications Medication Sig Dispense Refill cetirizine (ZYRTEC) 10 mg tablet Take 1 tablet by mouth once daily. 30 tablet 2 cholecalciferol, Vitamin D3, (VITAMIN D3) 1,250 mcg (50,000 unit) cap capsule Take 1 capsule by mouth one time a week. 12 capsule 0 albuterol HFA (VENTOLIN HFA) 90 mcg/actuation inhaler Inhale 2 Puffs as instructed every 4 hours as needed. 1 Inhaler 1 stjtpjpslol-deyngrulsaeqo-lidylb vir alafenamide (BIKTARVY) 50-200-25 mg per tablet Take 1 tablet by mouth once daily. nicotine (NICODERM) 21 mg/24 hr Apply 1 Patch as directed every 24 hours. (Patient not taking: Reported on 01/04/2023) 42 Patch 0 Lactobacillus acidophilus (FLORAJEN ACIDOPHILUS) 20 billion cell cap Take 1 capsule by mouth once daily. (Patient not taking: Reported on 11/01/2022) 30 capsule 0 buPROPion SR (WELLBUTRIN SR) 150 mg 12 hr tablet Take 1 tablet by mouth twice daily. 60 tablet 2 lansoprazole (PREVACID) 15 mg capsule Take 1 capsule by mouth daily before breakfast. 1/2 hr before meal. 30 capsule 2 No current facility-administered medications for this visit. PAST SURGICAL HISTORY Procedure Laterality Date BREAST AUGMENTATION W/PROSTHETIC IMPLANT Bilateral 1995 under the muscle FAMILY HISTORY Problem Relation Age of Onset Emphysema Mother other (lung cancer) Mother Cancer Father prostate Breast Cancer Maternal Aunt Bipolar disorder Sister other (mental health) Maternal Grandmother No Known Problems Maternal Grandfather Breast Cancer Paternal Grandmother Social History Tobacco Use Smoking status: Every Day Packs/day: 2.00 Years: 38.00 Pack years: 76.00 Types: Cigarettes Smokeless tobacco: Never Tobacco comments: Currently smoking approx 0.5 PPD Substance Use Topics Alcohol use: Not Currently Drug use: Not Currently Types: Marijuana, LSD, Crack Cocaine Comment: past hx Objective BP 120/70 Pulse 93 Temp 36.6 ?C (97.8 ?F) (Tympanic) Resp 18 Wt 55.7 kg (122 lb 12.8 oz) SpO2 99% BMI 23.20 kg/m? Physical Exam Vitals reviewed. Constitutional: Appearance: Normal appearance. HENT: Head: Normocephalic and atraumatic. Right Ear: Tympanic membrane, ear canal and external ear normal. Left Ear: Tympanic membrane, ear canal and external ear normal. Nose: Congestion present. Mouth/Throat: Mouth: Mucous membranes are moist. Pharynx: Oropharynx is clear. Cardiovascular: Rate and Rhythm: Normal rate and regular rhythm. Heart sounds: Normal heart sounds. Pulmonary: Effort: Pulmonary effort is normal. No respiratory distress. Breath sounds: Normal breath sounds. No wheezing, rhonchi or rales. Musculoskeletal: Cervical back: Neck supple. Skin: General: Skin is warm and dry. Neurological: Mental Status: She is alert. Assessment and Plan ASSESSMENT/PLAN: 1. Viral URI - ICD9: 465.9, ICD10: J06.9 - Discussed viral etiology and rationale for treatment. - Symptomatic treatment with prn analgesia - Supportive care with fluids and rest - Follow up in 3-5 days if symptoms persist or sooner if worsening of symptoms -Discussed using Mucinex drxr-xum-wxfyawp as well as nasal spray. If not improving follow-up with PCP. - COVID WITH FLUA+B, ROUTINE Pam Garibay PA-C [facility] 11-27-2022 Miscellaneous Notes Left detailed vm on identified vm with provider's message below. I would not be concerned with ringworm from this injury. Continue current regimen. Treat with triple abx ointment and call with spreading redness, warmth, or drainage. Patient calls to report a tiny puncture wound from cat claw. Nurse triage completed. Protocol recommends home care. Patient's concern is that cat is being treating with fluconazole and topical cortisone for ringworm to head, ears, and nose since 11/15/2022. Patient concerned and asking if she should be concerned with developing ring worm from the injury. Vet told patient she might not see symptoms for two weeks in herself from exposure to cat. Patient reports area is closed with no redness, warmth or drainage. Afebrile. Reason for Disposition Minor cut or scratch Answer Assessment - Initial Assessment Questions 1. APPEARANCE of INJURY: Pinpoint puncture wound from cat claw. 2. SIZE: Pinpoint 3. BLEEDING: Bleeding controlled 4. LOCATION: Finger 5. ONSET: Today 6. MECHANISM: Patient had gloves on and was tending to ring worm areas of cat on head, ears, and nose when cat clawed patient's finger through her glove. 7. TETANUS: 07/06/2022 8. : No Protocols used: Skin [id number] documented in this encounter [facility] 11-19-2022 Miscellaneous Notes Patient returned call and given provider's message below with verbalized understanding. Message left for patient to call office back and ask for triage nurse for update. Shraddha Cuevas LPN ----- Message from Diamond Bright APRN.CNP sent at 11/19/2022 7:16 AM EDT ----- Vitamin D level in normal range. Diamond Bright APRN.CNP documented in this encounter [facility] 11-19-2022 Miscellaneous Notes Images from the original note were not included. Patient calling asking for lab results. VITAMIN D 25 HYDROXY Order: [id number] Status: Final result Visible to patient: No (inaccessible in MyChart) Dx: Vitamin D deficiency 1 Result Note Component Ref Range & Units 2 d ago 3 mo ago Vitamin D 25 Hydroxy 31.0 - 80.0 ng/mL 68.2 17.4 Low CM Resulting Agency [facility] CCM Specimen Collected: 11/17/22 2:56 PM EDT Last Resulted: 11/18/22 9:54 PM EDT Lab Flowsheet Order Details View Encounter Lab and Collection Details Routing Result History View Encounter Conversation CM=Additional comments Result Care Coordination Result Notes Diamond Bright APRN.CNP 11/19/2022 7:16 AM EDT Back to Top Vitamin D level in normal range. Diamond Bright APRN.CNP Patient Communication Add Comments Not seen Back to Top Went over results from Diamond Bright DIALYSIS NURSE with understanding. documented in this encounter [facility] 11-17-2022 Note HNO ID: [id number] Author: Diamond Bright APRN.CNP Service: ? Author Type: Nurse Practitioner Type: Progress Notes Filed: 11/17/2022 4:09 PM Note Text: 11/17/2022 Patient presents with: Acute Visit: Wants vitamin D checked Nicotine Dependence: Wants to talk about smoking cessation SUBJECTIVE: This is a 52 year old that is here today for Above Complaints.. Would like her vitamin D rechecked. Finished her 14056 units.Feels tired. Want to stop smoking. Does not want to take a pill. Smokes a pack a day for about 32 years. Motivated to quit. Has never tried anything to stop. 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 Mcdonald-ID Persistent cough 07/2022 Tobacco use disorder ALLERGIES House Dust Mite and Singulair [Montelukast] MEDICATIONS Current Outpatient Medications Medication Sig cetirizine (ZYRTEC) 10 mg tablet Take 1 tablet by mouth once daily. Lactobacillus acidophilus (FLORAJEN ACIDOPHILUS) 20 billion cell cap Take 1 capsule by mouth once daily. (Patient not taking: Reported on 11/01/2022) buPROPion SR (WELLBUTRIN SR) 150 mg 12 hr tablet Take 1 tablet by mouth twice daily. cholecalciferol, Vitamin D3, (VITAMIN D3) 1,250 mcg (50,000 unit) cap capsule Take 1 capsule by mouth one time a week. lansoprazole (PREVACID) 15 mg capsule Take 1 capsule by mouth daily before breakfast. 1/2 hr before meal. albuterol HFA (VENTOLIN HFA) 90 mcg/actuation inhaler Inhale 2 Puffs as instructed every 4 hours as needed. bjfwvcxwame-bdcfizjvvbrcn-jlzkev vir alafenamide (BIKTARVY) 50-200-25 mg per tablet Take 1 tablet by mouth once daily. No current facility-administered medications for this visit. Medications and allergies reviewed by this provider. SOCIAL HISTORY Social History Tobacco Use Smoking status: Every Day Packs/day: 2.00 Years: 38.00 Pack years: 76.00 Types: Cigarettes Smokeless tobacco: Never Tobacco comments: Currently smoking approx 0.5 PPD Substance Use Topics Alcohol use: Not Currently Drug use: Not Currently Types: Marijuana, LSD, Crack Cocaine Comment: past hx REVIEW OF SYSTEMS All other reviewed and negative other than HPI. OBJECTIVE: BP 128/88 Pulse 86 Resp 18 Wt 57 kg (125 lb 9.6 oz) SpO2 100% BMI 23.73 kg/m? . Vital signs reviewed by this provider. APPEARANCE Well appearing, alert, in no acute distress, well-hydrated, well nourished. HEPATITIS B(1 of 3 - 3-dose series) Never done HEPATITIS A(1 of 2 - Risk 2-dose series) Never done MENINGOCOCCAL CONJUGATE(1 - Risk 2-dose series) Never done SHINGRIX VACCINE(1 of 2) Never done COLORECTAL CANCER SCREENING Never done LUNG CANCER SCREENING Never done MAMMOGRAM due on 09/13/2023 ANNUAL PCP TEAM CHRONIC DISEASE VISIT due on 11/18/2023 PAP TESTING due on 03/12/2024 HPV TESTING due on 03/12/2024 DIABETES SCREEN due on 08/02/2025 LIPID SCREEN due on 01/26/2027 DTAP,TDAP,TD(2 - Td or Tdap) due on 07/06/2032 ALPHA-1 ANTITRYPSIN DEFICIENCY SCREENING Completed SPIROMETRY Completed INFLUENZA Completed DEPRESSION ASSESSMENT Completed HEPATITIS C SCREENING Completed COVID-19 VACCINE Completed PNEUMOCOCCAL Completed HPV VACCINE Aged Out MMR Discontinued ASSESSMENT/PLAN: 1. Vitamin D deficiency - ICD9: 268.9, ICD10: E55.9 (primary diagnosis) - may start taking vitamin D 2000 units OTC daily - VITAMIN D 25 HYDROXY 2. Smoking - ICD9: 305.1, ICD10: F17.200 - Cessation encouraged. - Physiologic and physical aspects of tobacco addiction as well as strategies for quitting were discussed. - Counseling was given focusing on the harmful effects of this addiction especially given the patient's medical condition(s) which will be worsened because of the chemicals in tobacco. - Counseling was given 3-4 minutes. - Prescription for nicotine patches given - NICOTINE 21 MG/24 HR DAILY TRANSDERMAL PATCH Diamond Bright, FLAT CUTTER.FLAT BREAKDOWN PROCESSOR Prescription instructions reviewed with patient as applicable. Patient advised if symptoms do not improve or if symptoms worsen sooner, to contact their primary care physician. Potential red flag symptoms discussed with the patient. Reviewed appropriate action plan to take if red flag symptoms occur. Patient agreeable to treatment plan. I spent a total of 20 minutes on the date of the service which included preparing to see the patient, [id number] patient care, completing clinical documentation, obtaining and/or reviewing separately obtained history, performing a medically appropriate examination, counseling and educating the patient/family/caregiver, and ordering medications, tests, or procedures. [facility] 11-17-2022 History of Presen t illness Narrative 11/17/2022 Patient presents with: Acute Visit: Wants vitamin D checked Nicotine Dependence: Wants to talk about smoking cessation SUBJECTIVE: This is a 52 year old that is here today for Above Complaints.. Would like her vitamin D rechecked. Finished her 68652 units.Feels tired. Want to stop smoking. Does not want to take a pill. Smokes a pack a day for about 32 years. Motivated to quit. Has never tried anything to stop. 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 Mcdonald-ID Persistent cough 07/2022 Tobacco use disorder ALLERGIES House Dust Mite and Singulair [Montelukast] MEDICATIONS Current Outpatient Medications Medication Sig cetirizine (ZYRTEC) 10 mg tablet Take 1 tablet by mouth once daily. Lactobacillus acidophilus (FLORAJEN ACIDOPHILUS) 20 billion cell cap Take 1 capsule by mouth once daily. (Patient not taking: Reported on 11/01/2022) buPROPion SR (WELLBUTRIN SR) 150 mg 12 hr tablet Take 1 tablet by mouth twice daily. cholecalciferol, Vitamin D3, (VITAMIN D3) 1,250 mcg (50,000 unit) cap capsule Take 1 capsule by mouth one time a week. lansoprazole (PREVACID) 15 mg capsule Take 1 capsule by mouth daily before breakfast. 1/2 hr before meal. albuterol HFA (VENTOLIN HFA) 90 mcg/actuation inhaler Inhale 2 Puffs as instructed every 4 hours as needed. babrbhccoxb-gcbbuevipclco-mbdgrh vir alafenamide (BIKTARVY) 50-200-25 mg per tablet Take 1 tablet by mouth once daily. No current facility-administered medications for this visit. Medications and allergies reviewed by this provider. SOCIAL HISTORY Social History Tobacco Use Smoking status: Every Day Packs/day: 2.00 Years: 38.00 Pack years: 76.00 Types: Cigarettes Smokeless tobacco: Never Tobacco comments: Currently smoking approx 0.5 PPD Substance Use Topics Alcohol use: Not Currently Drug use: Not Currently Types: Marijuana, LSD, Crack Cocaine Comment: past hx REVIEW OF SYSTEMS All other reviewed and negative other than HPI. OBJECTIVE: BP 128/88 Pulse 86 Resp 18 Wt 57 kg (125 lb 9.6 oz) SpO2 100% BMI 23.73 kg/m . Vital signs reviewed by this provider. APPEARANCE Well appearing, alert, in no acute distress, well-hydrated, well nourished. HEPATITIS B(1 of 3 - 3-dose series) Never done HEPATITIS A(1 of 2 - Risk 2-dose series) Never done MENINGOCOCCAL CONJUGATE(1 - Risk 2-dose series) Never done SHINGRIX VACCINE(1 of 2) Never done COLORECTAL CANCER SCREENING Never done LUNG CANCER SCREENING Never done MAMMOGRAM due on 09/13/2023 ANNUAL PCP TEAM CHRONIC DISEASE VISIT due on 11/18/2023 PAP TESTING due on 03/12/2024 HPV TESTING due on 03/12/2024 DIABETES SCREEN due on 08/02/2025 LIPID SCREEN due on 01/26/2027 DTAP,TDAP,TD(2 - Td or Tdap) due on 07/06/2032 ALPHA-1 ANTITRYPSIN DEFICIENCY SCREENING Completed SPIROMETRY Completed INFLUENZA Completed DEPRESSION ASSESSMENT Completed HEPATITIS C SCREENING Completed COVID-19 VACCINE Completed PNEUMOCOCCAL Completed HPV VACCINE Aged Out MMR Discontinued ASSESSMENT/PLAN: 1. Vitamin D deficiency - ICD9: 268.9, ICD10: E55.9 (primary diagnosis) - may start taking vitamin D 2000 units OTC daily - VITAMIN D 25 HYDROXY 2. Smoking - ICD9: 305.1, ICD10: F17.200 - Cessation encouraged. - Physiologic and physical aspects of tobacco addiction as well as strategies for quitting were discussed. - Counseling was given focusing on the harmful effects of this addiction especially given the patient's medical condition(s) which will be worsened because of the chemicals in tobacco. - Counseling was given 3-4 minutes. - Prescription for nicotine patches given - NICOTINE 21 MG/24 HR DAILY TRANSDERMAL PATCH Diamond Bright APRN.CNP Prescription instructions reviewed with patient as applicable. Patient advised if symptoms do not improve or if symptoms worsen sooner, to contact their primary care physician. Potential red flag symptoms discussed with the patient. Reviewed appropriate action plan to take if red flag symptoms occur. Patient agreeable to treatment plan. I spent a total of 20 minutes on the date of the service which included preparing to see the patient, [id number] patient care, completing clinical documentation, obtaining and/or reviewing separately obtained history, performing a medically appropriate examination, counseling and educating the patient/family/caregiver, and ordering medications, tests, or procedures. documented in this encounter [facility] 11-08-2022 Miscellaneous Notes EUGENE: 09/02/22 with PCP NOV: 11/15/22 with TREMAINE Last refill: 08/05/22 With 30 and 2 refills Milagros Abdullahi MA Patient has been identified by name and date of : Yes Last office visit in this department: 09/02/2022 RX INSTRUCTIONS: Patient aware RX will be sent to pharmacy. No need to notify patient. Patient phones requesting refills as follows: Requested Prescriptions Pending Prescriptions Disp Refills cetirizine (ZYRTEC) 10 mg tablet 30 tablet 2 Sig: Take 1 tablet by mouth once daily. Please review and advise. Abigail Rich documented in this encounter [facility] 11-05-2022 Note HNO ID: [id number] Author: Mana Ribeiro APRN.FLAT BREAKDOWN PROCESSOR Service: ? Author Type: Nurse Practitioner Type: Progress Notes Filed: 11/05/2022 2:49 PM Note Text: Subjective Animal Bite Tracy Vazquez is a 52 year old female who presents with multiple scratches from her cat. This is her emotional support animal and we have seen her here in [facility] 3 times this year for injuries sustained by this cat. Most recently she was treated with Augmentin on 11/01 for 5 days for a cat bite. She has one more day of Augmentin left. She states she was getting a laundry basket when the cat freaked out and scratched her on her right thigh and bilateral hands. She has not had any pain in the areas. She has not had a fever. PMH significant for HIV. Review of Systems Constitutional: Negative for chills, fever and malaise/fatigue. Respiratory: Negative. Cardiovascular: Negative. Musculoskeletal: Negative for myalgias. Skin: Negative for itching and rash. BP 112/72 Pulse 84 Temp 37 ?C (98.6 ?F) (Tympanic) Resp 18 Wt 56.1 kg (123 lb 9.6 oz) SpO2 97% BMI 23.35 kg/m? 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 Mcdonald-ID Persistent cough 07/2022 Tobacco use disorder PAST SURGICAL HISTORY Procedure Laterality Date BREAST AUGMENTATION W/PROSTHETIC IMPLANT Bilateral 1995 under the muscle ALLERGIES House Dust Mite and Singulair [Montelukast] MEDICATIONS amoxicillin-clavulanic acid (AUGMENTIN) 875-125 mg per tablet Take 1 tablet by mouth twice daily for 5 days. albuterol HFA (VENTOLIN HFA) 90 mcg/actuation inhaler Inhale 2 Puffs as instructed every 4 hours as needed. cstmqabduqj-hkxtkbrgujkyh-ryfela vir alafenamide (BIKTARVY) 50-200-25 mg per tablet Take 1 tablet by mouth once daily. mupirocin (BACTROBAN) 2 % ointment Apply 1 application to affected area twice daily for 10 days. Lactobacillus acidophilus (FLORAJEN ACIDOPHILUS) 20 billion cell cap Take 1 capsule by mouth once daily. (Patient not taking: Reported on 11/01/2022) buPROPion SR (WELLBUTRIN SR) 150 mg 12 hr tablet Take 1 tablet by mouth twice daily. cholecalciferol, Vitamin D3, (VITAMIN D3) 1,250 mcg (50,000 unit) cap capsule Take 1 capsule by mouth one time a week. lansoprazole (PREVACID) 15 mg capsule Take 1 capsule by mouth daily before breakfast. 1/2 hr before meal. FAMILY HISTORY Problem Relation Age of Onset Emphysema Mother other (lung cancer) Mother Cancer Father prostate Breast Cancer Maternal Aunt Bipolar disorder Sister other (mental health) Maternal Grandmother No Known Problems Maternal Grandfather Breast Cancer Paternal Grandmother Social History Tobacco Use Smoking status: Every Day Packs/day: 2.00 Years: 38.00 Pack years: 76.00 Types: Cigarettes Smokeless tobacco: Never Tobacco comments: Currently smoking approx 0.5 PPD Substance Use Topics Alcohol use: Not Currently Drug use: Not Currently Types: Marijuana, LSD, Crack Cocaine Comment: past hx Objective Physical Exam Vitals and nursing note reviewed. Constitutional: Appearance: Normal appearance. Cardiovascular: Rate and Rhythm: Normal rate. Pulmonary: Effort: Pulmonary effort is normal. Skin: General: Skin is warm and dry. Capillary Refill: Capillary refill takes less than 2 seconds. Findings: Bruising present. No erythema or rash. Neurological: Mental Status: She is alert. ASSESSMENT/PLAN: 1. Multiple abrasions - ICD9: 919.0, ICD10: T07.XXXA - MUPIROCIN 2 % TOPICAL OINTMENT - Follow-up with your PCP in 3-5 days if symptoms have not improved or sooner if symptoms worsen - Discussed red flags and need for immediate medical evaluation if any occur. - Discussed supportive care treatment with fluids, rest and analgesia. - Discussed expected course of illness Mana Ribeiro APRN.[facility] 11-05-2022 History of Presen t illness Narrative Images from the original note were not included. Subjective Animal Bite Tracy Vazquez is a 52 year old female who presents with multiple scratches from her cat. This is her emotional support animal and we have seen her here in [facility] 3 times this year for injuries sustained by this cat. Most recently she was treated with Augmentin on 11/01 for 5 days for a cat bite. She has one more day of Augmentin left. She states she was getting a laundry basket when the cat freaked out and scratched her on her right thigh and bilateral hands. She has not had any pain in the areas. She has not had a fever. PMH significant for HIV. Review of Systems Constitutional: Negative for chills, fever and malaise/fatigue. Respiratory: Negative. Cardiovascular: Negative. Musculoskeletal: Negative for myalgias. Skin: Negative for itching and rash. 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 Mcdonald-ID Persistent cough 07/2022 Tobacco use disorder PAST SURGICAL HISTORY Procedure Laterality Date BREAST AUGMENTATION W/PROSTHETIC IMPLANT Bilateral 1995 under the muscle ALLERGIES House Dust Mite and Singulair [Montelukast] MEDICATIONS amoxicillin-clavulanic acid (AUGMENTIN) 875-125 mg per tablet Take 1 tablet by mouth twice daily for 5 days. albuterol HFA (VENTOLIN HFA) 90 mcg/actuation inhaler Inhale 2 Puffs as instructed every 4 hours as needed. zwmvavvcxoz-hwdzyxexnfjoz-mnaynk vir alafenamide (BIKTARVY) 50-200-25 mg per tablet Take 1 tablet by mouth once daily. mupirocin (BACTROBAN) 2 % ointment Apply 1 application to affected area twice daily for 10 days. Lactobacillus acidophilus (FLORAJEN ACIDOPHILUS) 20 billion cell cap Take 1 capsule by mouth once daily. (Patient not taking: Reported on 11/01/2022) buPROPion SR (WELLBUTRIN SR) 150 mg 12 hr tablet Take 1 tablet by mouth twice daily. cholecalciferol, Vitamin D3, (VITAMIN D3) 1,250 mcg (50,000 unit) cap capsule Take 1 capsule by mouth one time a week. lansoprazole (PREVACID) 15 mg capsule Take 1 capsule by mouth daily before breakfast. 1/2 hr before meal. FAMILY HISTORY Problem Relation Age of Onset Emphysema Mother other (lung cancer) Mother Cancer Father prostate Breast Cancer Maternal Aunt Bipolar disorder Sister other (mental health) Maternal Grandmother No Known Problems Maternal Grandfather Breast Cancer Paternal Grandmother Social History Tobacco Use Smoking status: Every Day Packs/day: 2.00 Years: 38.00 Pack years: 76.00 Types: Cigarettes Smokeless tobacco: Never Tobacco comments: Currently smoking approx 0.5 PPD Substance Use Topics Alcohol use: Not Currently Drug use: Not Currently Types: Marijuana, LSD, Crack Cocaine Comment: past hx Objective Physical Exam Vitals and nursing note reviewed. Constitutional: Appearance: Normal appearance. Cardiovascular: Rate and Rhythm: Normal rate. Pulmonary: Effort: Pulmonary effort is normal. Skin: General: Skin is warm and dry. Capillary Refill: Capillary refill takes less than 2 seconds. Findings: Bruising present. No erythema or rash. Neurological: Mental Status: She is alert. ASSESSMENT/PLAN: 1. Multiple abrasions - ICD9: 919.0, ICD10: T07.XXXA - MUPIROCIN 2 % TOPICAL OINTMENT - Follow-up with your PCP in 3-5 days if symptoms have not improved or sooner if symptoms worsen - Discussed red flags and need for immediate medical evaluation if any occur. - Discussed supportive care treatment with fluids, rest and analgesia. - Discussed expected course of illness Mana Ribeiro APRN.CNP documented in this encounter [facility] 11-05-2022 Instructions Mana Ribeiro APRN.CNP - 11/05/2022 2:35 PM EDT ASSESSMENT/PLAN: 1. Multiple abrasions - ICD9: 919.0, ICD10: T07.XXXA - MUPIROCIN 2 % TOPICAL OINTMENT - Follow-up with your PCP in 3-5 days if symptoms have not improved or sooner if symptoms worsen - Discussed red flags and need for immediate medical evaluation if any occur. - Discussed supportive care treatment with fluids, rest and analgesia. - Discussed expected course of illness Mana Ribeiro APRN.CNP documented in this encounter [facility] 11-01-2022 Note HNO ID: [id number] Author: Pam Garibay PA-C Service: ? Author Type: Physician Revenue Integrity Analyst Type: Progress Notes Filed: 11/08/2022 7:16 AM Note Text: This note was created using [employer]. Subjective Tracy Vazquez is a 52 year old female. HPI Patient presents with a chief complaint of a cat bite. She states her cat bit her right forearm this morning. She states it may have scratched her as well she is not sure. The cat has done this 2-3 times previously. She is thinking about getting rid of the cat but it is her emotional support animal. No redness or swelling to the bites. History of HIV. Review of Systems Musculoskeletal: Cat bites left forearm All other systems reviewed and are negative. PAST MEDICAL HISTORY Diagnosis Date Allergies On immunotherapy Anxiety Brain aneurysm Reprots from taking LSD- no surgery for this Emphysema lung (HCC) GERD (gastroesophageal reflux disease) Hepatitis B reports she is clear HIV (human immunodeficiency virus infection) (HCC) 2009 Dr. Mcdonald-ID Persistent cough 07/2022 Tobacco use disorder Current Outpatient Medications Medication Sig Dispense Refill cetirizine (ZYRTEC) 10 mg tablet Take 1 tablet by mouth once daily. 30 tablet 2 cholecalciferol, Vitamin D3, (VITAMIN D3) 1,250 mcg (50,000 unit) cap capsule Take 1 capsule by mouth one time a week. 12 capsule 0 albuterol HFA (VENTOLIN HFA) 90 mcg/actuation inhaler Inhale 2 Puffs as instructed every 4 hours as needed. 1 Inhaler 1 sibdiwmwefe-rcgnaodkokuee-dkqvqz vir alafenamide (BIKTARVY) 50-200-25 mg per tablet Take 1 tablet by mouth once daily. amoxicillin-clavulanic acid (AUGMENTIN) 875-125 mg per tablet Take 1 tablet by mouth twice daily for 5 days. 10 tablet 0 Lactobacillus acidophilus (FLORAJEN ACIDOPHILUS) 20 billion cell cap Take 1 capsule by mouth once daily. (Patient not taking: Reported on 11/01/2022) 30 capsule 0 buPROPion SR (WELLBUTRIN SR) 150 mg 12 hr tablet Take 1 tablet by mouth twice daily. 60 tablet 2 lansoprazole (PREVACID) 15 mg capsule Take 1 capsule by mouth daily before breakfast. 1/2 hr before meal. 30 capsule 2 No current facility-administered medications for this visit. PAST SURGICAL HISTORY Procedure Laterality Date BREAST AUGMENTATION W/PROSTHETIC IMPLANT Bilateral 1995 under the muscle FAMILY HISTORY Problem Relation Age of Onset Emphysema Mother other (lung cancer) Mother Cancer Father prostate Breast Cancer Maternal Aunt Bipolar disorder Sister other (mental health) Maternal Grandmother No Known Problems Maternal Grandfather Breast Cancer Paternal Grandmother Social History Tobacco Use Smoking status: Every Day Packs/day: 2.00 Years: 38.00 Pack years: 76.00 Types: Cigarettes Smokeless tobacco: Never Tobacco comments: Currently smoking approx 0.5 PPD Substance Use Topics Alcohol use: Not Currently Drug use: Not Currently Types: Marijuana, LSD, Crack Cocaine Comment: past hx Objective BP 122/80 Pulse 85 Temp 36.1 ?C (97 ?F) Resp 21 Wt 58.2 kg (128 lb 6.4 oz) SpO2 97% BMI 24.26 kg/m? Physical Exam Vitals reviewed. HENT: Head: Normocephalic and atraumatic. Skin: General: Skin is warm and dry. Comments: Small superficial scratches to the right forearm. No redness, warmth, swelling noted. No drainage. No foreign body noted. Assessment and Plan ASSESSMENT/PLAN: 1. Wound of upper extremity, unspecified laterality, initial encounter - ICD9: 884.0, ICD10: S41.109A (primary diagnosis) Augmentin x 5 days. Tdap up to date. 2. Cat bite, initial encounter - ICD9: 879.8, E906.3, ICD10: W55.01XA Pam Garibay PA-C [facility] 11-01-2022 History of Presen t illness Narrative This note was created using [employer]. Subjective Tracy Vazquez is a 52 year old female. HPI Patient presents with a chief complaint of a cat bite. She states her cat bit her right forearm this morning. She states it may have scratched her as well she is not sure. The cat has done this 2-3 times previously. She is thinking about getting rid of the cat but it is her emotional support animal. No redness or swelling to the bites. History of HIV. Review of Systems Musculoskeletal: Cat bites left forearm All other systems reviewed and are negative. 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 Mcdonald-ID Persistent cough 07/2022 Tobacco use disorder Current Outpatient Medications Medication Sig Dispense Refill cetirizine (ZYRTEC) 10 mg tablet Take 1 tablet by mouth once daily. 30 tablet 2 cholecalciferol, Vitamin D3, (VITAMIN D3) 1,250 mcg (50,000 unit) cap capsule Take 1 capsule by mouth one time a week. 12 capsule 0 albuterol HFA (VENTOLIN HFA) 90 mcg/actuation inhaler Inhale 2 Puffs as instructed every 4 hours as needed. 1 Inhaler 1 dnwvmsnpouo-ctedwdagkeeeh-kesflw vir alafenamide (BIKTARVY) 50-200-25 mg per tablet Take 1 tablet by mouth once daily. amoxicillin-clavulanic acid (AUGMENTIN) 875-125 mg per tablet Take 1 tablet by mouth twice daily for 5 days. 10 tablet 0 Lactobacillus acidophilus (FLORAJEN ACIDOPHILUS) 20 billion cell cap Take 1 capsule by mouth once daily. (Patient not taking: Reported on 11/01/2022) 30 capsule 0 buPROPion SR (WELLBUTRIN SR) 150 mg 12 hr tablet Take 1 tablet by mouth twice daily. 60 tablet 2 lansoprazole (PREVACID) 15 mg capsule Take 1 capsule by mouth daily before breakfast. 1/2 hr before meal. 30 capsule 2 No current facility-administered medications for this visit. PAST SURGICAL HISTORY Procedure Laterality Date BREAST AUGMENTATION W/PROSTHETIC IMPLANT Bilateral 1995 under the muscle FAMILY HISTORY Problem Relation Age of Onset Emphysema Mother other (lung cancer) Mother Cancer Father prostate Breast Cancer Maternal Aunt Bipolar disorder Sister other (mental health) Maternal Grandmother No Known Problems Maternal Grandfather Breast Cancer Paternal Grandmother Social History Tobacco Use Smoking status: Every Day Packs/day: 2.00 Years: 38.00 Pack years: 76.00 Types: Cigarettes Smokeless tobacco: Never Tobacco comments: Currently smoking approx 0.5 PPD Substance Use Topics Alcohol use: Not Currently Drug use: Not Currently Types: Marijuana, LSD, Crack Cocaine Comment: past hx Objective BP 122/80 Pulse 85 Temp 36.1 C (97 F) Resp 21 Wt 58.2 kg (128 lb 6.4 oz) SpO2 97% BMI 24.26 kg/m Physical Exam Vitals reviewed. HENT: Head: Normocephalic and atraumatic. Skin: General: Skin is warm and dry. Comments: Small superficial scratches to the right forearm. No redness, warmth, swelling noted. No drainage. No foreign body noted. Assessment and Plan ASSESSMENT/PLAN: 1. Cat bite, initial encounter - ICD9: 879.8, E906.3, ICD10: W55.01XA 5 days of augmentin sent for prophylaxis. Tdap UTD. Pam Garibay PA-C documented in this encounter [facility] 10-19-2022 Miscellaneous Notes Patient returned call, given below results/recommendations. She is currently at work, will call in to scheduled repeat in 6 months. Mattie Serrano LPN Left vm for patient to return call to nurse for provider message. Diagnostic mammogram and US show likely benign asymmmetry in the right breast. No need for biopsy at this time. Recommend repeat mammogram and US in 6 months to monitor closely. documented in this encounter [facility] 10-19-2022 Note HNO ID: [id number] Author: Angela Raymundo RDMS Service: ? Author Type: Mortar Carrier Type: Progress Notes Filed: 10/19/2022 12:00 PM Note Text: Radiology Service Progress Note PATIENT NAME: Tracy Vazquez DATE OF SERVICE: October 19, 2022 TIME: 11:59 AM PATIENT IDENTITY VERIFICATION COMPLETED USING TWO (2) IDENTIFIERS: Name and Date of confirmed by patient verbally. FALL SCREENING: Has the patient had 2 falls in the last year or 1 fall with injury or currently using an Ambulatory Assistive Device (Walker, Cane, Wheelchair, Crutches, etc.)? No PATIENT GENDER DATA: Female. status: : No status: NO. PATIENT RELEVANT IMPLANT DATA REVIEWED: Not Applicable RADIOLOGY DEPARTMENT: Ultrasound PERIPHERAL IV DATA: Not applicable SIGNED BY: Angela Raymundo RDMS October 19, 2022 11:59 AM [facility] 10-19-2022 Note HNO ID: [id number] Author: RT Jill(Yung) Service: ? Author Type: Technologist Type: Progress Notes Filed: 10/19/2022 10:57 AM Note Text: Radiology Service Progress Note PATIENT NAME: Tracy Vazquez DATE OF SERVICE: October 19, 2022 TIME: 10:56 AM PATIENT IDENTITY VERIFICATION COMPLETED USING TWO (2) IDENTIFIERS: Name and Date of confirmed by patient verbally. FALL SCREENING: Has the patient had 2 falls in the last year or 1 fall with injury or currently using an Ambulatory Assistive Device (Walker, Cane, Wheelchair, Crutches, etc.)? No PATIENT GENDER DATA: Female. status: : No status: NO. PATIENT RELEVANT IMPLANT DATA REVIEWED: Not Applicable RADIOLOGY DEPARTMENT: Mammography PERIPHERAL IV DATA: Not applicable SIGNED BY: RT Jill(R) October 19, 2022 10:56 AM [facility] 10-19-2022 History of Presen t illness Narrative Radiology Service Progress Note PATIENT NAME: Tracy Vazquez DATE OF SERVICE: October 19, 2022 TIME: 11:59 AM PATIENT IDENTITY VERIFICATION COMPLETED USING TWO (2) IDENTIFIERS: Name and Date of confirmed by patient verbally. FALL SCREENING: Has the patient had 2 falls in the last year or 1 fall with injury or currently using an Ambulatory Assistive Device (Walker, Cane, Wheelchair, Crutches, etc.)? No PATIENT GENDER DATA: Female. status: : No status: NO. PATIENT RELEVANT IMPLANT DATA REVIEWED: Not Applicable RADIOLOGY DEPARTMENT: Ultrasound PERIPHERAL IV DATA: Not applicable SIGNED BY: Angela Raymundo RDMS October 19, 2022 11:59 AM documented in this encounter [facility] 10-19-2022 History of Presen t illness Narrative Radiology Service Progress Note PATIENT NAME: Tracy Vazquez DATE OF SERVICE: October 19, 2022 TIME: 10:56 AM PATIENT IDENTITY VERIFICATION COMPLETED USING TWO (2) IDENTIFIERS: Name and Date of confirmed by patient verbally. FALL SCREENING: Has the patient had 2 falls in the last year or 1 fall with injury or currently using an Ambulatory Assistive Device (Walker, Cane, Wheelchair, Crutches, etc.)? No PATIENT GENDER DATA: Female. status: : No status: NO. PATIENT RELEVANT IMPLANT DATA REVIEWED: Not Applicable RADIOLOGY DEPARTMENT: Mammography PERIPHERAL IV DATA: Not applicable SIGNED BY: RT Jill(R) October 19, 2022 10:56 AM documented in this encounter [facility] 09-20-2022 Miscellaneous Notes Spoke with patient. Given message from provider's office. Patient verbalizes understanding. Transferred to [facility] for appointment. Kamryn Fontana RN VM left for pt to call PCP office for provider's message below. Coretta Fierro RN Please make her an appt in [facility] office Leo Cheatham DO Triage protocol recommends: See provider within 3 days for evaluation. Pt asking if she needs to make OV with PCP, or other specialist, or wait for scheduled diagnostic mammogram and US to be completed on 10/19? Please advise patient. Will send message to [facility] provider due to PCP team out of office. Reason for Disposition Change in shape or appearance of breast Answer Assessment - Initial Assessment Questions Pt reports intermittent mild pains/aches to bilateral breast that began approximately 3 days ago. Denies any recent trauma or injury. Has breast implants. 1. SYMPTOM: as above 2. LOCATION: left and right breasts 3. ONSET:3 days ago 4. PRIOR HISTORY: see history 5. CAUSE: patient not sure 6. OTHER SYMPTOMS: Denies fever, lumps, bumps, nipple discharge, fever, rash, or redness. Does not experience breast discomfort when lying down, only when up and moving. Reports when she lays down, her right breast appears more asymmetrical from the left. Pt states she's not sure if right implant is deflating . States a couple months ago she was involved in incident where her right arm got injured from a car door-pt unsure if this is a contributing factor or not. Pt has US of breast and diagnostic mammogram scheduled for 10/19 and is on waiting list if there is a cancellation. 7. -: no Protocols used: Breast [id number] documented in this encounter [facility] 09-14-2022 Miscellaneous Notes September 15, 2022 PID: [id number] Tracy Vazquez [address] [place] [address] Dear Irina Vazquez, Your recent breast imaging exam on 09/13/2022 showed a possible finding that requires additional imaging studies for a complete evaluation. Most such findings are probably benign (not cancer). If you have a healthcare provider who ordered/prescribed your screening mammogram: Please call [phone] or [phone]: [phone] to schedule an appointment for your additional imaging (if you have not already done so). If you DO NOT have a healthcare provider (ie you did not have an order/prescription for your screening mammogram): Please call to schedule an appointment for your additional imaging (if you have not already done so). You must have an order/prescription from your physician when calling to schedule your appointment. If your order/prescription is not electronic, you must bring the hard copy with you on the day of your exam to avoid delays. Your imaging studies and reports are kept on file at [facility] as part of your permanent medical record, and are available for your continuing care. Thank you for allowing us to help in meeting your health care needs. Sincerely, Dr. Quispe Interpreting Radiologist [facility] (Additional imaging) documented in this encounter [facility] 09-10-2022 Miscellaneous Notes Patient notified Alpha-1 result normal. Elba Bass LPN Pt calling in asking for results of lab tests done yesterday 09/09/22. Please advise. Pt is going to work soon, so if does not answer callback okay to leave VM per pt Roxane Evans RN documented in this encounter [facility] 09-09-2022 Note HNO ID: [id number] Author: Judith Cassidy MD Service: ? Author Type: Physician Type: Progress Notes Filed: 09/09/2022 5:17 PM Note Text: . Respiratory [place] Note Patient name: Tracy Vazquez PCP: Prudencio Pedro MD Referring Physician: Same Consultation requested by Dr. Pedro for an opinion regarding COPD. My final recommendations will be communicated back to the requesting physician by way of shared Medical record or letter to requesting physician via [place] mail. CC: Emphysema HPI: Tracy Vazquez 52 year old female current [id number] smoker with PMH significant for GERD, HIV, hepatitis B, allergies on immunotherapy who presents for evaluation of new diagnosis of emphysema. Patient had low-dose chest CT for cancer screening performed at [facility] which was notable for mild upper lobe centrilobular emphysema and no suspicious lesions. She has a past history of drug abuse including crack cocaine, LSD and marijuana. No injectable drugs. From a respiratory standpoint she denies significant shortness of breath, wheezing, chest pain. She does have a morning cough productive of clear to yellow phlegm. She also has sinus disease with postnasal drip related to her allergies. She is currently receiving immunotherapy for her allergies. No significant weight loss. No history of recurrent bronchitis or pneumonia. DATA: PFT 07/2022: Review of pulmonary function test show mild small airways obstruction that improves with bronchodilators and normal lung capacity Labs: Component Ref Range AND Units 1 mo ago WBC 3.70 - 11.00 k/uL 6.16 RBC 3.90 - 5.20 m/uL 4.45 Hemoglobin 11.5 - 15.5 g/dL 15.3 Hematocrit 36.0 - 46.0 % 46.1 High MCV 80.0 - 100.0 fL 103.6 High MCH 26.0 - 34.0 pg 34.4 High MCHC 30.5 - 36.0 g/dL 33.2 RDW-CV 11.5 - 15.0 % 12.4 Platelet Count 150 - 400 k/uL 224 MPV 9.0 - 12.7 fL 11.7 Absolute nRBC <0.01 k/uL <0.01 Imaging / Diagnostic Studies: Low-dose CT cancer screening 08/2022 [facility]: I personally reviewed the images which shows no suspicious lesions and emphysema. PAST MEDICAL HISTORY Diagnosis Date Allergies On immunotherapy Anxiety Brain aneurysm Reprots from taking LSD- no surgery for this Emphysema lung (HCC) GERD (gastroesophageal reflux disease) Hepatitis B reports she is clear HIV (human immunodeficiency virus infection) (HCC) 2009 Dr. Mcdonald-ID Persistent cough 07/2022 Tobacco use disorder ALLERGIES Allergen Reactions House Dust Mite Other: See Comments Itchy eyes Singulair [Monteluk* Other: See Comments Had nightmares Lactobacillus acidophilus (FLORAJEN ACIDOPHILUS) 20 billion cell cap Take 1 capsule by mouth once daily. cetirizine (ZYRTEC) 10 mg tablet Take 1 tablet by mouth once daily. cholecalciferol, Vitamin D3, (VITAMIN D3) 1,250 mcg (50,000 unit) cap capsule Take 1 capsule by mouth one time a week. lansoprazole (PREVACID) 15 mg capsule Take 1 capsule by mouth daily before breakfast. 1/2 hr before meal. albuterol HFA (VENTOLIN HFA) 90 mcg/actuation inhaler Inhale 2 Puffs as instructed every 4 hours as needed. ejprsrmbshk-ijmlqifqotdij-crnpuv vir alafenamide (BIKTARVY) 50-200-25 mg per tablet Take 1 tablet by mouth once daily. buPROPion SR (WELLBUTRIN SR) 150 mg 12 hr tablet Take 1 tablet by mouth twice daily. 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: Cat FAMILY HISTORY Problem Relation Age of Onset Emphysema Mother other (lung cancer) Mother Cancer Father prostate Breast Cancer Maternal Aunt Bipolar disorder Sister other (mental health) Maternal Grandmother No Known Problems Maternal Grandfather Breast Cancer Paternal Grandmother PAST SURGICAL HISTORY Procedure Laterality Date BREAST AUGMENTATION W/PROSTHETIC IMPLANT Bilateral 1995 under the muscle PMH, Social history, family history and surgical history reviewed and updated in EMR REVIEW OF SYSTEMS: CONSTITUTIONAL: No fevers, chills, nightsweats, unintended weight loss, or fatigue HEENT: Denies positive nasal congestion/sinus symptoms, allergy problems. Posterior drainage EYES: No diplopia or blurry vision. CARDIOVASCULAR: No chest pain, dyspnea, palpitations, orthopnea, PND, edema. PULM: See HPI GI: No dysphagia/odynophagia,constipati on, diarrhea. Known GERD but not symptomatic at this time : No new urinary complaints, including dysuria, gross hematuria or pyuria. NEURO: No balance problems, peripheral weakness/paresthesias or numbness of concern. MUSC-SKEL: No joint pain, s (more content not included)... [facility] 09-08-2022 Miscellaneous Notes Patient calls and notified of results and providers instructions. Patient verbalizes understanding with no further testing. Gely Estrada RN COVID-19, influenza A, and influenza B PCR test are negative. Continue supportive therapies as discussed during visit. Follow-up with PCP if symptoms are not improving. Rob Chirinos APRN.ANALILIA documented in this encounter [facility] 09-07-2022 Note HNO ID: [id number] Author: Rob Chirinos APRN.CNP Service: ? Author Type: Nurse Practitioner Type: Progress Notes Filed: 09/07/2022 12:34 PM Note Text: Subjective HPI Nontoxic-appearing female presents urgent care chief plaint headache nasal congestion loose stools. Loose stools has been past 2 to 3 days. Headache and nasal congestion for the last few days. Presents today for evaluation. Is currently on Augmentin for a cat bite. No known sick contacts. No OTC medications. Denies any fever body aches chills productive cough chest pain shortness of breath pleuritic pain hemoptysis nausea vomiting abdominal pain change in bowel or bladder habits. Past medical history prescription medication use and allergies reviewed. .Patient presents with: Headache: LUCIO, diarrhea and nasal congestion x 3 days PAST MEDICAL HISTORY Diagnosis Date Anxiety Brain aneurysm Reprots from taking LSD- no surgery for this GERD (gastroesophageal reflux disease) Hepatitis B reports she is clear HIV (human immunodeficiency virus infection) ([facility]) 2009 Dr. Mcdonald-ID Persistent cough 07/2022 Tobacco use disorder PAST SURGICAL HISTORY Procedure Laterality Date BREAST AUGMENTATION W/PROSTHETIC IMPLANT Bilateral 1995 under the muscle ALLERGIES House Dust Mite and Singulair [Montelukast] MEDICATIONS Lactobacillus acidophilus (FLORAJEN ACIDOPHILUS) 20 billion cell cap Take 1 capsule by mouth once daily. buPROPion SR (WELLBUTRIN SR) 150 mg 12 hr tablet Take 1 tablet by mouth twice daily. amoxicillin-clavulanic acid (AUGMENTIN) 875-125 mg per tablet Take 1 tablet by mouth twice daily for 10 days. cetirizine (ZYRTEC) 10 mg tablet Take 1 tablet by mouth once daily. cholecalciferol, Vitamin D3, (VITAMIN D3) 1,250 mcg (50,000 unit) cap capsule Take 1 capsule by mouth one time a week. lansoprazole (PREVACID) 15 mg capsule Take 1 capsule by mouth daily before breakfast. 1/2 hr before meal. albuterol HFA (VENTOLIN HFA) 90 mcg/actuation inhaler Inhale 2 Puffs as instructed every 4 hours as needed. ymnvdxzxmgp-iqwsxvjheaydp-oecqvs vir alafenamide (BIKTARVY) 50-200-25 mg per tablet Take 1 tablet by mouth once daily. FAMILY HISTORY Problem Relation Age of Onset Emphysema Mother other (lung cancer) Mother Cancer Father prostate Breast Cancer Maternal Aunt Bipolar disorder Sister other (mental health) Maternal Grandmother No Known Problems Maternal Grandfather Breast Cancer Paternal Grandmother Social History Tobacco Use Smoking status: Every Day Packs/day: 1.00 Years: 38.00 Pack years: 38.00 Types: Cigarettes Smokeless tobacco: Never Substance Use Topics Alcohol use: Not Currently Drug use: Never Comment: past hx BP 122/80 Pulse 90 Temp 36.1 ?C (97 ?F) (Tympanic) Resp 18 Wt 56.5 kg (124 lb 9.6 oz) SpO2 98% BMI 23.54 kg/m? Review of Systems Constitutional: Negative for chills, fever and malaise/fatigue. HENT: Positive for congestion. Negative for ear discharge, ear pain, sinus pain and sore throat. Eyes: Negative for blurred vision, pain, discharge and redness. Respiratory: Negative for cough, hemoptysis, sputum production, shortness of breath, wheezing and stridor. Cardiovascular: Negative for chest pain. Gastrointestinal: Positive for diarrhea. Negative for abdominal pain, nausea and vomiting. Musculoskeletal: Negative for myalgias. Skin: Negative for itching and rash. Neurological: Positive for headaches. Negative for dizziness. Objective Physical Exam Constitutional: General: She is not in acute distress. Appearance: She is not diaphoretic. HENT: Head: Normocephalic. Mouth/Throat: Mouth: Mucous membranes are moist. Pharynx: Oropharynx is clear. No oropharyngeal exudate or posterior oropharyngeal erythema. Eyes: Conjunctiva/sclera: Conjunctivae normal. Pupils: Pupils are equal, round, and reactive to light. Cardiovascular: Rate and Rhythm: Normal rate and regular rhythm. Heart sounds: Normal heart sounds. Pulmonary: Effort: Pulmonary effort is normal. No tachypnea, accessory muscle usage or respiratory distress. Breath sounds: Normal breath sounds. No stridor. No wheezing, rhonchi or rales. Abdominal: General: There is no distension. Palpations: Abdomen is soft. Tenderness: There is no abdominal tenderness. There is no guarding or rebound. Musculoskeletal: Cervical back: Normal range of motion and neck supple. No rigidity or tenderness. Lymphadenopathy: Cervical: No cervical adenopathy. Skin: General: Skin is warm and dry. Neurological: Mental Status: She is alert and oriented to person, place, and time. ASSESSMENT/PLAN: 1. Viral illness - ICD9: 079.99, ICD10: B34.9 (primary diagnosis) - Discussed viral etiology and rationale for treatment. - Symptomatic treatment with prn analgesia - Supportive care with fluids and rest - COVID WITH FLUA+B, ROUTINE 2. Loose stools - ICD9: 787.7, (more content not included)... [facility] 09-07-2022 Instructions Rob Chirinos APRN.[facility] - 09/07/2022 11:58 AM EST How to Manage Common Symptoms Associated with COVID for Adults Fever- Fever is a temperature over 100.4 F and can occur when the body is fighting an infection. To help treat a fever: Drink plenty of fluids and stay well hydrated. Eat small amounts of easy to digest food. Rest. Your body needs rest to recover, but getting up and moving around the house frequently is a good idea. You should try to continue doing your normal daily activities (bathing, toileting, grooming, cooking), though you will probably feel tired, and need to rest often. Avoid any heavy activity or exercise, as this will increase your body temperature. Dress in light clothing and stay covered in a light sheet. Keep the room temperature cool. Take a slightly warm (not cold or cool) bath, or apply damp washcloths to the forehead and wrists. Cough- Cough is a common symptom associated with COVID and can be bothersome. To help treat a cough: Stay well hydrated. Try warm water or tea with lemon and/or honey to help soothe the cough. Use a humidifier to add moisture to the air. Try a product with menthol, like a cough drop or a rub for your chest such as Vicks, which can help reduce cough. Try cough drops. Avoid smoking and other strong odors or perfumes. Try breathing exercises to keep your lungs open and clear. Take a big deep breath through your nose and hold for 5 seconds before slowly releasing. Repeat frequently, while you are awake. Congestion- Runny nose or nasal congestion can occur with COVID. Treatment can help relieve symptoms: Try OTC nasal saline spray, or nasal saline rinse to relieve mucus congestion. Nasal strips can help keep nasal passages open, to increase airflow. Elevating your head with an extra pillow in bed can help reduce congestion. Using a humidifier can increase moisture in the air, and make breathing easier. Sore Throat- Another common symptom with COVID, can be managed at home by: Stay well hydrated. Gargle with salt water - mix teaspoon salt with 1 cup of warm water and gargle. This helps to loosen mucus in the back of the throat and may reduce discomfort. Try ice chips, popsicles or lozenges to soothe the throat. Nausea/Vomiting/Diarrhea- These are common symptoms, and staying hydrated is most important. If you are nauseous or vomiting, start with small sips of water every 10-15 minutes and increase as tolerated. You can try sucking an ice cube too. If tolerating, you can try pedialyte or Gatorade, or flat sprite or adelfo-rogers. Start slowly and increase as you are able to. Instead of meals, try smaller, more frequent snacks. Try eating bland foods like crackers, toast, rice, and applesauce. Avoid spicy, greasy or fried foods and dairy containing foods. Even if you aren't feeling hungry due to lack of smell or taste, it is important to try to take in some food when you are able. After drinking and eating, rest in an upright position for up to two hours as needed to help decrease nauseous feelings. Try closing your eyes, avoid moving and watching TV. Avoid strong odors that can make you feel more nauseated. When to seek emergency medical attention Look for emergency warning signs for COVID-19. If having any of these symptoms, seek emergency medical care immediately: Trouble breathing Persistent pain or pressure in the chest New confusion Inability to wake or stay awake Bluish lips or face *This list is not all possible symptoms. Please call your medical provider for any other symptoms that are severe or concerning to you. documented in this encounter [facility] 09-07-2022 History of Presen t illness Narrative Subjective HPI Nontoxic-appearing female presents urgent care chief plaint headache nasal congestion loose stools. Loose stools has been past 2 to 3 days. Headache and nasal congestion for the last few days. Presents today for evaluation. Is currently on Augmentin for a cat bite. No known sick contacts. No OTC medications. Denies any fever body aches chills productive cough chest pain shortness of breath pleuritic pain hemoptysis nausea vomiting abdominal pain change in bowel or bladder habits. Past medical history prescription medication use and allergies reviewed. .Patient presents with: Headache: LUCIO, diarrhea and nasal congestion x 3 days PAST MEDICAL HISTORY Diagnosis Date Anxiety Brain aneurysm Reprots from taking LSD- no surgery for this GERD (gastroesophageal reflux disease) Hepatitis B reports she is clear HIV (human immunodeficiency virus infection) (HCC) 2009 Dr. Mcdonald-ID Persistent cough 07/2022 Tobacco use disorder PAST SURGICAL HISTORY Procedure Laterality Date BREAST AUGMENTATION W/PROSTHETIC IMPLANT Bilateral 1995 under the muscle ALLERGIES House Dust Mite and Singulair [Montelukast] MEDICATIONS Lactobacillus acidophilus (FLORAJEN ACIDOPHILUS) 20 billion cell cap Take 1 capsule by mouth once daily. buPROPion SR (WELLBUTRIN SR) 150 mg 12 hr tablet Take 1 tablet by mouth twice daily. amoxicillin-clavulanic acid (AUGMENTIN) 875-125 mg per tablet Take 1 tablet by mouth twice daily for 10 days. cetirizine (ZYRTEC) 10 mg tablet Take 1 tablet by mouth once daily. cholecalciferol, Vitamin D3, (VITAMIN D3) 1,250 mcg (50,000 unit) cap capsule Take 1 capsule by mouth one time a week. lansoprazole (PREVACID) 15 mg capsule Take 1 capsule by mouth daily before breakfast. 1/2 hr before meal. albuterol HFA (VENTOLIN HFA) 90 mcg/actuation inhaler Inhale 2 Puffs as instructed every 4 hours as needed. paslbembqap-wsscpdfaxkxxy-fnxrox vir alafenamide (BIKTARVY) 50-200-25 mg per tablet Take 1 tablet by mouth once daily. FAMILY HISTORY Problem Relation Age of Onset Emphysema Mother other (lung cancer) Mother Cancer Father prostate Breast Cancer Maternal Aunt Bipolar disorder Sister other (mental health) Maternal Grandmother No Known Problems Maternal Grandfather Breast Cancer Paternal Grandmother Social History Tobacco Use Smoking status: Every Day Packs/day: 1.00 Years: 38.00 Pack years: 38.00 Types: Cigarettes Smokeless tobacco: Never Substance Use Topics Alcohol use: Not Currently Drug use: Never Comment: past hx BP 122/80 Pulse 90 Temp 36.1 C (97 F) (Tympanic) Resp 18 Wt 56.5 kg (124 lb 9.6 oz) SpO2 98% BMI 23.54 kg/m Review of Systems Constitutional: Negative for chills, fever and malaise/fatigue. HENT: Positive for congestion. Negative for ear discharge, ear pain, sinus pain and sore throat. Eyes: Negative for blurred vision, pain, discharge and redness. Respiratory: Negative for cough, hemoptysis, sputum production, shortness of breath, wheezing and stridor. Cardiovascular: Negative for chest pain. Gastrointestinal: Positive for diarrhea. Negative for abdominal pain, nausea and vomiting. Musculoskeletal: Negative for myalgias. Skin: Negative for itching and rash. Neurological: Positive for headaches. Negative for dizziness. Objective Physical Exam Constitutional: General: She is not in acute distress. Appearance: She is not diaphoretic. HENT: Head: Normocephalic. Mouth/Throat: Mouth: Mucous membranes are moist. Pharynx: Oropharynx is clear. No oropharyngeal exudate or posterior oropharyngeal erythema. Eyes: Conjunctiva/sclera: Conjunctivae normal. Pupils: Pupils are equal, round, and reactive to light. Cardiovascular: Rate and Rhythm: Normal rate and regular rhythm. Heart sounds: Normal heart sounds. Pulmonary: Effort: Pulmonary effort is normal. No tachypnea, accessory muscle usage or respiratory distress. Breath sounds: Normal breath sounds. No stridor. No wheezing, rhonchi or rales. Abdominal: General: There is no distension. Palpations: Abdomen is soft. Tenderness: There is no abdominal tenderness. There is no guarding or rebound. Musculoskeletal: Cervical back: Normal range of motion and neck supple. No rigidity or tenderness. Lymphadenopathy: Cervical: No cervical adenopathy. Skin: General: Skin is warm and dry. Neurological: Mental Status: She is alert and oriented to person, place, and time. ASSESSMENT/PLAN: 1. Viral illness - ICD9: 079.99, ICD10: B34.9 (primary diagnosis) - Discussed viral etiology and rationale for treatment. - Symptomatic treatment with prn analgesia - Supportive care with fluids and rest - COVID WITH FLUA+B, ROUTINE 2. Loose stools - ICD9: 787.7, ICD10: R19.5 Suspicious loose stool from antibiotics. States 1-2 loose stools today. No blood. Patient will follow up with primary care provider as needed. Patient was instructed to immediately proceed to emergency room for any new, worsening, or symptoms lasting longer than anticipated. The patient's clinical presentation is otherwise unremarkable at this time. Based on exam and clinical finding, the patient is stable for discharge. Plan of care was discussed with patient. Patient verbalizes understanding and agrees to plan of care. This note was generated using [employer] software. It may contain errors in wording, punctuation, or spelling. Rob Chirinos APRN.FLAT BREAKDOWN PROCESSOR documented in this encounter [facility] 09-06-2022 Miscellaneous Notes Pt called and is notified of providers message and instructions. Pt voices understanding. Paula Boston RN Addended by: PRUDENCIO PEDRO on: 09/06/2022 04:16 PM Modules accepted: Orders Rx sent for Florajen as requested. If diarrhea does not improve or worsens with more than 5 episodes per day would test for C diff. Patient asking if Dr. Pedro would order the probiotic, Florajen, for her? She states this was ordered for her after seeing an OB provider in the past and she is almost out. [facility]ses [facility]. Please call pt with update. Thank you. Pt called and is notified of providers message and instructions. Pt voices understanding. Pt states she has only been having diarrhea once in the morning, but it has had mucus in it and smells bad. Paula Boston RN Probiotic is available over the counter. I would have her olive picker a lactobacillus or acidophilus at local pharmacy. Please call with more than 5 BMs per day with mucous and foul odor or abdominal pain. Pt called in and reports provider put her on an antibiotic for a cat bite. She states she has diarrhea from it and is asking if the provider will send in a probiotic for her. Please call and advise. Patient has been identified by name and date of : Yes, Provider Dr Pedro Date 09/06/22 Time 0957. Patient phones for refill(s): Requested Prescriptions Pending Prescriptions Disp Refills Lactobacillus acidophilus (FLORAJEN ACIDOPHILUS) 20 billion cell cap 30 capsule 0 Sig: Take 1 capsule by mouth once daily. Date of last office visit in primary care: 09/02/22 Future appointment: 12/06/22 Last 2 Encounter Wt Readings: Date: Wt: 09/02/2022 57 kg (125 lb 9.6 oz) 08/18/2022 57.2 kg (126 lb) Previous labs/tests for medication: Blood Pressure: BUN (mg/dL) Date Value 08/02/2022 13 Sodium (mmol/L) Date Value 08/02/2022 140 Last 1 Encounter BP Readings: Date: BP: 09/02/2022 104/82 Liver Function: ALT (U/L) Date Value 08/02/2022 9 AST (U/L) Date Value 08/02/2022 19 Please advise. Thank you. Paula Boston RN documented in this encounter [facility] 09-02-2022 Note HNO ID: [id number] Author: Prudencio Pedro MD Service: ? Author Type: Physician Type: Progress Notes Filed: 09/03/2022 10:37 AM Note Text: Chief Complaint Patient presents with: Smoking Cessation: Trying to quit smoking. Currently smoking about 5 cigarettes a day Abrasion: Cat scratch on upper right thigh HPI Tracy Vazquez is a 52 year old female who presents here today for Above Complaints. Patient states that she is tried to quit cold turkey and has been unable to. Smoking about 5 cigarettes per day. Has not tried anything else in the past. Would like to try Wellbutrin. Refusing patch and gum. Her own cat scratched her on the right lateral thigh last night and bit her on her hamstring. Treated with alcohol, neosporin, and soap and water. Patient without pain in this area today. Denies fever/chills, spreading erythema, or drainage. Cat up to date on vaccinations. Past medical history, appointments, medications, allergies reviewed. 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 Mcdonald-ID Persistent cough 07/2022 Tobacco use disorder Previous Surgical History PAST SURGICAL HISTORY Procedure Laterality Date BREAST AUGMENTATION W/PROSTHETIC IMPLANT Bilateral 1995 under the muscle Family History FAMILY HISTORY Problem Relation Age of Onset Emphysema Mother other (lung cancer) Mother Cancer Father prostate Breast Cancer Maternal Aunt Bipolar disorder Sister other (mental health) Maternal Grandmother No Known Problems Maternal Grandfather Breast Cancer Paternal Grandmother Patient Allergies ALLERGIES Allergen Reactions House Dust Mite Other: See Comments Itchy eyes Singulair [[place]* Other: See Comments Had nightmares Current Medications Current Outpatient Medications on File Prior to Visit Medication Sig Lactobacillus acidophilus (FLORAJEN ACIDOPHILUS) 20 billion cell cap Take 1 capsule by mouth once daily. cetirizine (ZYRTEC) 10 mg tablet Take 1 tablet by mouth once daily. cholecalciferol, Vitamin D3, (VITAMIN D3) 1,250 mcg (50,000 unit) cap capsule Take 1 capsule by mouth one time a week. lansoprazole (PREVACID) 15 mg capsule Take 1 capsule by mouth daily before breakfast. 1/2 hr before meal. albuterol HFA (VENTOLIN HFA) 90 mcg/actuation inhaler Inhale 2 Puffs as instructed every 4 hours as needed. bubeeamzurw-pkzjfmrbytlky-fjjizm vir alafenamide (BIKTARVY) 50-200-25 mg per tablet Take 1 tablet by mouth once daily. No current facility-administered medications on file prior to visit. Social History Social History Tobacco Use Smoking status: Every Day Packs/day: 1.00 Years: 38.00 Pack years: 38.00 Types: Cigarettes Smokeless tobacco: Never Substance Use Topics Alcohol use: Not Currently Drug use: Never Comment: past hx Review of Symptoms REVIEW OF SYSTEMS See HPI EXAM: BP 104/82 Pulse 90 Temp 36.1 ?C (97 ?F) Ht 154.9 cm (5' 1 ) Wt 57 kg (125 lb 9.6 oz) BMI 23.73 kg/m? General Appearance: Well appearing, alert, in no acute distress, well-hydrated, well nourished.. Skin: multiple scratches over right anterior and posterior thigh without cellulits or purulent drainage. Possible puncture wound on right posterior thigh. Health Maintenance List HEPATITIS B(1 of 3 - 3-dose series) Never done HEPATITIS A(1 of 2 - Risk 2-dose series) Never done MENINGOCOCCAL CONJUGATE(1 - Risk 2-dose series) Never done SHINGRIX VACCINE(1 of 2) Never done COLORECTAL CANCER SCREENING Never done LUNG CANCER SCREENING Never done MAMMOGRAM due on 03/12/2020 PAP TESTING due on 03/12/2024 HPV TESTING due on 03/12/2024 DIABETES SCREEN due on 08/02/2025 LIPID SCREEN due on 01/26/2027 DTAP,TDAP,TD(2 - Td or Tdap) due on 07/06/2032 INFLUENZA Completed DEPRESSION ASSESSMENT Completed HEPATITIS C SCREENING Completed COVID-19 VACCINE Completed PNEUMOCOCCAL Completed HPV VACCINE Aged Out MMR Discontinued ASSESSMENT/PLAN: 1. Tobacco use - ICD9: 305.1, ICD10: Z72.0 (primary diagnosis) - Cessation encouraged. - Physiologic and physical aspects of tobacco addiction as well as strategies for quitting were discussed. - Counseling was given focusing on the harmful effects of this addiction especially given the patient's medical condition(s) which will be worsened because of the chemicals in tobacco. - Recommended to called 1-800-QUIT NOW - Prescription for bupropion (Wellbutrin) given - BUPROPION HCL SR 150 MG TABLET,12 HR SUSTAINED-RELEASE 2. Cat scratch - ICD9: 919.0, E906.8, ICD10: W55.03XA Start Augmentin for prophylaxis. Discussed wound care. Up to date on tetanus booster. Red flags for re-assessment reviewed with patient in detail. 3. Cat bite, initia (more content not included)... [facility] 09-02-2022 History of Presen t illness Narrative Chief Complaint Patient presents with: Smoking Cessation: Trying to quit smoking. Currently smoking about 5 cigarettes a day Abrasion: Cat scratch on upper right thigh HPI Tracy Vazquez is a 52 year old female who presents here today for Above Complaints. Patient states that she is tried to quit cold turkey and has been unable to. Smoking about 5 cigarettes per day. Has not tried anything else in the past. Would like to try Wellbutrin. Refusing patch and gum. Her own cat scratched her on the right lateral thigh last night and bit her on her hamstring. Treated with alcohol, neosporin, and soap and water. Patient without pain in this area today. Denies fever/chills, spreading erythema, or drainage. Cat up to date on vaccinations. Past medical history, appointments, medications, allergies reviewed. 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 Mcdonald-ID Persistent cough 07/2022 Tobacco use disorder Previous Surgical History PAST SURGICAL HISTORY Procedure Laterality Date BREAST AUGMENTATION W/PROSTHETIC IMPLANT Bilateral 1995 under the muscle Family History FAMILY HISTORY Problem Relation Age of Onset Emphysema Mother other (lung cancer) Mother Cancer Father prostate Breast Cancer Maternal Aunt Bipolar disorder Sister other (mental health) Maternal Grandmother No Known Problems Maternal Grandfather Breast Cancer Paternal Grandmother Patient Allergies ALLERGIES Allergen Reactions House Dust Mite Other: See Comments Itchy eyes Singulair [Monteluk* Other: See Comments Had nightmares Current Medications Current Outpatient Medications on File Prior to Visit Medication Sig Lactobacillus acidophilus (FLORAJEN ACIDOPHILUS) 20 billion cell cap Take 1 capsule by mouth once daily. cetirizine (ZYRTEC) 10 mg tablet Take 1 tablet by mouth once daily. cholecalciferol, Vitamin D3, (VITAMIN D3) 1,250 mcg (50,000 unit) cap capsule Take 1 capsule by mouth one time a week. lansoprazole (PREVACID) 15 mg capsule Take 1 capsule by mouth daily before breakfast. 1/2 hr before meal. albuterol HFA (VENTOLIN HFA) 90 mcg/actuation inhaler Inhale 2 Puffs as instructed every 4 hours as needed. fnxlgazjcqp-wcjfmxjhkcelz-qnhfnz vir alafenamide (BIKTARVY) 50-200-25 mg per tablet Take 1 tablet by mouth once daily. No current facility-administered medications on file prior to visit. Social History Social History Tobacco Use Smoking status: Every Day Packs/day: 1.00 Years: 38.00 Pack years: 38.00 Types: Cigarettes Smokeless tobacco: Never Substance Use Topics Alcohol use: Not Currently Drug use: Never Comment: past hx Review of Symptoms REVIEW OF SYSTEMS See HPI EXAM: BP 104/82 Pulse 90 Temp 36.1 C (97 F) Ht 154.9 cm (5' 1 ) Wt 57 kg (125 lb 9.6 oz) BMI 23.73 kg/m General Appearance: Well appearing, alert, in no acute distress, well-hydrated, well nourished.. Skin: multiple scratches over right anterior and posterior thigh without cellulits or purulent drainage. Possible puncture wound on right posterior thigh. Health Maintenance List HEPATITIS B(1 of 3 - 3-dose series) Never done HEPATITIS A(1 of 2 - Risk 2-dose series) Never done MENINGOCOCCAL CONJUGATE(1 - Risk 2-dose series) Never done SHINGRIX VACCINE(1 of 2) Never done COLORECTAL CANCER SCREENING Never done LUNG CANCER SCREENING Never done MAMMOGRAM due on 03/12/2020 PAP TESTING due on 03/12/2024 HPV TESTING due on 03/12/2024 DIABETES SCREEN due on 08/02/2025 LIPID SCREEN due on 01/26/2027 DTAP,TDAP,TD(2 - Td or Tdap) due on 07/06/2032 INFLUENZA Completed DEPRESSION ASSESSMENT Completed HEPATITIS C SCREENING Completed COVID-19 VACCINE Completed PNEUMOCOCCAL Completed HPV VACCINE Aged Out MMR Discontinued ASSESSMENT/PLAN: 1. Tobacco use - ICD9: 305.1, ICD10: Z72.0 (primary diagnosis) - Cessation encouraged. - Physiologic and physical aspects of tobacco addiction as well as strategies for quitting were discussed. - Counseling was given focusing on the harmful effects of this addiction especially given the patient's medical condition(s) which will be worsened because of the chemicals in tobacco. - Recommended to called 1-800-QUIT NOW - Prescription for bupropion (Wellbutrin) given - BUPROPION HCL SR 150 MG TABLET,12 HR SUSTAINED-RELEASE 2. Cat scratch - ICD9: 919.0, E906.8, ICD10: W55.03XA Start Augmentin for prophylaxis. Discussed wound care. Up to date on tetanus booster. Red flags for re-assessment reviewed with patient in detail. 3. Cat bite, initial encounter - ICD9: 879.8, E906.3, ICD10: W55.01XA Start Augmentin for prophylaxis. Discussed wound care. Up to date on tetanus booster. Red flags for re-assessment reviewed with patient in detail. Prudencio Pedro MD documented in this encounter [facility] 09-02-2022 Miscellaneous Notes Agree. Patient scheduled with Dr. Pedro for tomorrow. Shraddha Cuevas LPN Recommends appointment to discuss options. Diamond Bright APRN.FLAT BREAKDOWN PROCESSOR t called back today and wanted you to know she broke down today 09-01-22 and she is back smoking. She has had 3 cigs today. Pt asking for help. Please advise. Reviewed. Stopped on the . Was smoking a pack and a half a day. She has an appointment with professor of environmental science on the . States she currently doesn't need anything at this time and that quitting cold turkey is going ok. Shraddha Cuevas LPN How much is she smoking now? Does she have something in mind she would like to try, or does she want OV to discuss cessation options? Patient was recently diagnosed with emphysema and states she is ready to quit smoking and asking for a script to help with this. documented in this encounter [facility] 08-25-2022 Miscellaneous Notes Spoke with patient. Given message from provider's office. Patient verbalizes understanding. Kamryn Fontana RN Message left for patient to call back for update. Shraddha Cuevas LPN No nodules. Changes consistent with emphysema. Follow-up in one year. Diamond Bright APRN.FLAT BREAKDOWN PROCESSOR Patient calls and states that she had lung screening done at [facility]. Patient had CT Scan done. Patient asking for provider to review and advise. Patient was referred to [facility] pulmonology by Namrata Cho DIALYSIS NURSE. Please review and advise, Zeny Aquino RN documented in this encounter [facility] 08-25-2022 Miscellaneous Notes Patient calling regarding returning call to go over results . Conferenced to Kamryn in Dr. Pedro's office at phone number ([phone]) for assistance. Kacey Narayanan LPN documented in this encounter [facility] 08-18-2022 Note HNO ID: [id number] Author: Diamond Bright APRN.ANALILIA Service: ? Author Type: Nurse Practitioner Type: Progress Notes Filed: 08/18/2022 9:37 AM Note Text: 08/18/2022 Patient presents with: Animal Bite: Cat bite last night to back of right knee SUBJECTIVE: This is a 52 year old that is here today for Above Complaints.. Last night got bit by her domesticated indoor cat back of right knee. Patient reports this is her third time being bit by this cat. Denies surrounding redness, swelling, excessive, warmth, drainage, or red streaking Wants to complete iFobt instead of cologuard as she can not get to [employer] to ship cologuard test. 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 Mcdonald-ID Persistent cough 07/2022 Tobacco use disorder ALLERGIES House Dust Mite and Singulair [Montelukast] MEDICATIONS Current Outpatient Medications Medication Sig Lactobacillus acidophilus (FLORAJEN ACIDOPHILUS) 20 billion cell cap Take 1 capsule by mouth once daily. cetirizine (ZYRTEC) 10 mg tablet Take 1 tablet by mouth once daily. cholecalciferol, Vitamin D3, (VITAMIN D3) 1,250 mcg (50,000 unit) cap capsule Take 1 capsule by mouth one time a week. ammonium lactate (LAC-HYDRIN) 12 % lotion Apply to affected area as needed. lansoprazole (PREVACID) 15 mg capsule Take 1 capsule by mouth daily before breakfast. 1/2 hr before meal. albuterol HFA (VENTOLIN HFA) 90 mcg/actuation inhaler Inhale 2 Puffs as instructed every 4 hours as needed. ppihexuqrnz-menveqzujspko-gydyjc vir alafenamide (BIKTARVY) 50-200-25 mg per tablet Take 1 tablet by mouth once daily. No current facility-administered medications for this visit. Medications and allergies reviewed by this provider. SOCIAL HISTORY Social History Tobacco Use Smoking status: Every Day Packs/day: 1.00 Years: 38.00 Pack years: 38.00 Types: Cigarettes Smokeless tobacco: Never Substance Use Topics Alcohol use: Not Currently Drug use: Never Comment: past hx REVIEW OF SYSTEMS All other reviewed and negative other than HPI. OBJECTIVE: BP 116/82 Pulse 83 Temp 36.7 ?C (98.1 ?F) Resp 18 Wt 57.2 kg (126 lb) SpO2 100% BMI 23.07 kg/m? . Vital signs reviewed by this provider. APPEARANCE Well appearing, alert, in no acute distress, well-hydrated, well nourished. SKIN Less than 1 cm linear scabbed area right posterior knee without surrounding erythema, edema, excessive warmth, drainage or red streaking. HEPATITIS B(1 of 3 - 3-dose series) Never done HEPATITIS A(1 of 2 - Risk 2-dose series) Never done MENINGOCOCCAL CONJUGATE(1 - Risk 2-dose series) Never done SHINGRIX VACCINE(1 of 2) Never done COLORECTAL CANCER SCREENING Never done LUNG CANCER SCREENING Never done MAMMOGRAM due on 03/12/2020 PAP TESTING due on 03/12/2024 HPV TESTING due on 03/12/2024 DIABETES SCREEN due on 08/02/2025 LIPID SCREEN due on 01/26/2027 DTAP,TDAP,TD(2 - Td or Tdap) due on 07/06/2032 INFLUENZA Completed DEPRESSION ASSESSMENT Completed HEPATITIS C SCREENING Completed COVID-19 VACCINE Completed PNEUMOCOCCAL Completed HPV VACCINE Aged Out MMR Discontinued ASSESSMENT/PLAN: 1. Cat bite, initial encounter - ICD9: 879.8, E906.3, ICD10: W55.01XA (primary diagnosis) - no red flag symptoms or exam findings - red flag symptoms discussed, verbalizes understanding - tetanus up to date - keep area clean dry and covered - AMOXICILLIN 875 MG-POTASSIUM CLAVULANATE 125 MG TABLET - follow-up with discussed infectious symptoms to ER with red flag symptoms 2. Encounter for screening fecal occult blood testing - ICD9: V76.51, ICD10: Z12.11 - FECAL OCCULT BLOOD TEST Diamond Bright APRN.ANALILIA Prescription instructions reviewed with patient as applicable. Patient advised if symptoms do not improve or if symptoms worsen sooner, to contact their primary care physician. Potential red flag symptoms discussed with the patient. Reviewed appropriate action plan to take if red flag symptoms occur. Patient agreeable to treatment plan. I spent a total of 20 minutes on the date of the service which included preparing to see the patient, [id number] patient care, completing clinical documentation, obtaining and/or reviewing separately obtained history, performing a medically appropriate examination, counseling and educating the patient/family/caregiver, and ordering medications, tests, or procedures. [facility] 08-18-2022 Instructions Diamond Bright APRN.CNP - 08/18/2022 9:24 AM EST Keep area clean, dry and covered Watch area for surrounding redness, excessive warmth, drainage, fever or chills- return to office if this develops. Go to ER with red flag symptoms- which would be red streaking up the leg documented in this encounter [facility] 08-18-2022 History of Presen t illness Narrative 08/18/2022 Patient presents with: Animal Bite: Cat bite last night to back of right knee SUBJECTIVE: This is a 52 year old that is here today for Above Complaints.. Last night got bit by her domesticated indoor cat back of right knee. Patient reports this is her third time being bit by this cat. Denies surrounding redness, swelling, excessive, warmth, drainage, or red streaking Wants to complete iFobt instead of cologuard as she can not get to [employer] to ship cologuard test. 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 Mcdonald-ID Persistent cough 07/2022 Tobacco use disorder ALLERGIES House Dust Mite and Singulair [Montelukast] MEDICATIONS Current Outpatient Medications Medication Sig Lactobacillus acidophilus (FLORAJEN ACIDOPHILUS) 20 billion cell cap Take 1 capsule by mouth once daily. cetirizine (ZYRTEC) 10 mg tablet Take 1 tablet by mouth once daily. cholecalciferol, Vitamin D3, (VITAMIN D3) 1,250 mcg (50,000 unit) cap capsule Take 1 capsule by mouth one time a week. ammonium lactate (LAC-HYDRIN) 12 % lotion Apply to affected area as needed. lansoprazole (PREVACID) 15 mg capsule Take 1 capsule by mouth daily before breakfast. 1/2 hr before meal. albuterol HFA (VENTOLIN HFA) 90 mcg/actuation inhaler Inhale 2 Puffs as instructed every 4 hours as needed. jbnbhyfjyyj-spmouwgzlgzdx-dmivtd vir alafenamide (BIKTARVY) 50-200-25 mg per tablet Take 1 tablet by mouth once daily. No current facility-administered medications for this visit. Medications and allergies reviewed by this provider. SOCIAL HISTORY Social History Tobacco Use Smoking status: Every Day Packs/day: 1.00 Years: 38.00 Pack years: 38.00 Types: Cigarettes Smokeless tobacco: Never Substance Use Topics Alcohol use: Not Currently Drug use: Never Comment: past hx REVIEW OF SYSTEMS All other reviewed and negative other than HPI. OBJECTIVE: BP 116/82 Pulse 83 Temp 36.7 C (98.1 F) Resp 18 Wt 57.2 kg (126 lb) SpO2 100% BMI 23.07 kg/m . Vital signs reviewed by this provider. APPEARANCE Well appearing, alert, in no acute distress, well-hydrated, well nourished. SKIN Less than 1 cm linear scabbed area right posterior knee without surrounding erythema, edema, excessive warmth, drainage or red streaking. HEPATITIS B(1 of 3 - 3-dose series) Never done HEPATITIS A(1 of 2 - Risk 2-dose series) Never done MENINGOCOCCAL CONJUGATE(1 - Risk 2-dose series) Never done SHINGRIX VACCINE(1 of 2) Never done COLORECTAL CANCER SCREENING Never done LUNG CANCER SCREENING Never done MAMMOGRAM due on 03/12/2020 PAP TESTING due on 03/12/2024 HPV TESTING due on 03/12/2024 DIABETES SCREEN due on 08/02/2025 LIPID SCREEN due on 01/26/2027 DTAP,TDAP,TD(2 - Td or Tdap) due on 07/06/2032 INFLUENZA Completed DEPRESSION ASSESSMENT Completed HEPATITIS C SCREENING Completed COVID-19 VACCINE Completed PNEUMOCOCCAL Completed HPV VACCINE Aged Out MMR Discontinued ASSESSMENT/PLAN: 1. Cat bite, initial encounter - ICD9: 879.8, E906.3, ICD10: W55.01XA (primary diagnosis) - no red flag symptoms or exam findings - red flag symptoms discussed, verbalizes understanding - tetanus up to date - keep area clean dry and covered - AMOXICILLIN 875 MG-POTASSIUM CLAVULANATE 125 MG TABLET - follow-up with discussed infectious symptoms to ER with red flag symptoms 2. Encounter for screening fecal occult blood testing - ICD9: V76.51, ICD10: Z12.11 - FECAL OCCULT BLOOD TEST Diamond Bright APRN.FLAT BREAKDOWN PROCESSOR Prescription instructions reviewed with patient as applicable. Patient advised if symptoms do not improve or if symptoms worsen sooner, to contact their primary care physician. Potential red flag symptoms discussed with the patient. Reviewed appropriate action plan to take if red flag symptoms occur. Patient agreeable to treatment plan. I spent a total of 20 minutes on the date of the service which included preparing to see the patient, tgvs-vq-ruks patient care, completing clinical documentation, obtaining and/or reviewing separately obtained history, performing a medically appropriate examination, counseling and educating the patient/family/caregiver, and ordering medications, tests, or procedures. documented in this encounter [facility] 08-16-2022 Miscellaneous Notes Pt called and is notified of providers message and instructions. Pt voices understanding. Paula Boston RN We did not check a B12 level on her. Would recommend she take daily multivitamin OTC that contains B12. Pt called and is notified of providers message. Pt voices understanding, but states the area is healed up and she doesn't need to come in. Pt was asking about her labs that she had drawn, and providers had put her on D3. She was asking if they would recommend she take B12. Please call and advise. Paula Boston RN Agree. If she wants it looked at Diamond and I have openings today and tomorrow. Pt called in and reports she was in the shower and her cat was trying to get in and barely grazed her with it's tooth. She states there was a drop of blood and she washed it well with soap and water as she was in the shower. She report you can't even see where the spot was on her arm. Pt was told to watch for redness, red streak, warmth, swelling, fever, and area tender to the touch. Pt was told if she saw signs like these to go to EC or ER. Told Pt I would send to provider and have them get back to her if they had any other directions. documented in this encounter [facility] 08-09-2022 Miscellaneous Notes Addended by: GEM WILDER on: 08/09/2022 01:40 PM Modules accepted: Orders Addended by: PAULA CINTRON on: 08/09/2022 01:39 PM Modules accepted: Orders documented in this encounter [facility] 08-09-2022 Note HNO ID: [id number] Author: Gem Wilder APRN.CNM Service: ? Author Type: Pre Coder Type: Progress Notes Filed: 08/09/2022 1:22 PM Note Text: Tracy Vazquez is a 52 year old female who presents for vaginal discharge. Vaginal discharge: moderate amount, thick, and white. Itching: No Dyspareunia: N/A Fever/chills: No Abdominal pain: Yes, unrelated to current issues today. Seeing PCP Bladder: Negative for dysuria or frequency Bowel: No blood in stool, pain with BM, tarry stool, persistent diarrhea or constipation Any new sexual partners or concern for STD exposure: No Any history of STDs: HIV, chlamydia, and gonorrhea Does your partner have any new complaints: No Are you currently taking any medications to treat vaginitis: No Do you use feminine sprays, douches or deodorants: No Menstrual cycle: postmenopausal since 42 Contraception: menopausal Last pap: 2019, normal Past medical, surgical, social history, medications and allergies reviewed and updated. OBJECTIVE: Wt 124 lb 3.2 oz (56.3kg) BP 90/60 Wt 124 lb 3.2 oz (56.3 kg) BMI 22.74 kg/m? GENERAL: Well developed, well nourished in no apparent distress ABDOMEN: soft, non-tender, and no masses PELVIC: external genitalia normal, normal Bartholin's glands, urethra, [place]'s glands, no vulvar lesions, no cervical lesions, good vaginal support, physiologic discharge present, normal appearing perineal body and perianal region BIMANUAL: uterus normal size, shape and consistency, no adnexal masses, and non-tender. Small amount of yellow vaginal discharge. ASSESSMENT/PLAN: 1. Vaginal discharge - ICD9: 623.5, ICD10: N89.8 STD screening: Accepted STD check for Gonorrhea and Chlamydia. Any new medications given to the patient have been explained as to directions, reasons for prescribing and side effects. Perineal hygiene and safe sex were discussed with the patient. -To schedule mammogram and annual exam Gem Wilder APRN.CNM Medical Decision Making: Data: Unique test(s) ordered: 3+ Assessment requiring an independent historian(s) Risk: Low: Low risk from testing/treatment Medical Decision Making Level: 3 - Low [facility] 08-09-2022 History of Presen t illness Narrative Tracy Vazquez is a 52 year old female who presents for vaginal discharge. Vaginal discharge: moderate amount, thick, and white. Itching: No Dyspareunia: N/A Fever/chills: No Abdominal pain: Yes, unrelated to current issues today. Seeing PCP Bladder: Negative for dysuria or frequency Bowel: No blood in stool, pain with BM, tarry stool, persistent diarrhea or constipation Any new sexual partners or concern for STD exposure: No Any history of STDs: HIV, chlamydia, and gonorrhea Does your partner have any new complaints: No Are you currently taking any medications to treat vaginitis: No Do you use feminine sprays, douches or deodorants: No Menstrual cycle: postmenopausal since 42 Contraception: menopausal Last pap: 2019, normal Past medical, surgical, social history, medications and allergies reviewed and updated. OBJECTIVE: Wt 124 lb 3.2 oz (56.3kg) BP 90/60 Wt 124 lb 3.2 oz (56.3 kg) BMI 22.74 kg/m GENERAL: Well developed, well nourished in no apparent distress ABDOMEN: soft, non-tender, and no masses PELVIC: external genitalia normal, normal Bartholin's glands, urethra, [place]'s glands, no vulvar lesions, no cervical lesions, good vaginal support, physiologic discharge present, normal appearing perineal body and perianal region BIMANUAL: uterus normal size, shape and consistency, no adnexal masses, and non-tender. Small amount of yellow vaginal discharge. ASSESSMENT/PLAN: 1. Vaginal discharge - ICD9: 623.5, ICD10: N89.8 STD screening: Accepted STD check for Gonorrhea and Chlamydia. Any new medications given to the patient have been explained as to directions, reasons for prescribing and side effects. Perineal hygiene and safe sex were discussed with the patient. -To schedule mammogram and annual exam Gem Wilder APRN.CNM Medical Decision Making: Data: Unique test(s) ordered: 3+ Assessment requiring an independent historian(s) Risk: Low: Low risk from testing/treatment Medical Decision Making Level: 3 - Low documented in this encounter [facility] 08-05-2022 Miscellaneous Notes Phoned patient and message left. Rx sent Patient calls and states that she had allergy shot today. Patient was told that she is in maintenance stage and it will be couple months for it to kick in. Patient asking if provider can send in prescription for zyrtec? Patient's pharmacy is [facility]. Please review and advise, Zeny Aquino RN documented in this encounter [facility] 08-05-2022 Miscellaneous Notes Patient notified of results, verbalized understanding. Cassie Shipley MA Please let patient know COVID and flu negative. documented in this encounter [facility] 08-04-2022 Miscellaneous Notes Patient notified. Verbalized understanding. She may get the shingrix vaccine at any time. She should check with her insurance to see if they cover in the office or if she needs to go to the pharmacy. Diamond Bright APRN.ANALILIA Pt called and wanted to know the following: *when should she get the shingles vaccine. Please advise pt. *wanted you to know she is cancelling the home sleep study for now because she is low in vit D and will see how she does on vit D and see if this could be her problem. Venecia Davies LPN documented in this encounter [facility] 08-04-2022 Miscellaneous Notes Patient notified of results and provider's instructions. Patient verbalizes understanding. Zeny Aquino RN VM left for pt to call provider's office and ask for a nurse, for message below. Coretta Fierro RN Please call patient and let her know her vitamin D level is low. Recommend we treat with vitamin D ONE TABLET A WEEK for 12 weeks then recheck level one week after last dose. I have sent over prescription for her. Diamond Bright APRN.CNP Patient checking on Vit D results. Did advise vit d level is low and once provider advises on those results we will call her back. Patient reports she has a weakened immune system, and recently taking augmentin for cat bite, which has healed, but also having cold s/s: cough and congestion, and plans to go to today to have covid test. Reports she had covid in Mar, and worried she may have it again. Reports since she has hx of HIV always wears a mask and shield to protect the staff. Please advise and phone patient with reply. documented in this encounter [facility] 08-03-2022 Miscellaneous Notes Patient notified. Voices understanding. Shraddha Cuevas LPN Labs within acceptable limits. Vitamin D level still pending. Diamond Bright APRN.ANALILIA Pt called back and she is home now and can be reached at [phone]. Venecia Davies LPN We will call her when they are back. Patient calling for lab results from yesterday. documented in this encounter [facility] 08-03-2022 Miscellaneous Notes Pt calling and requesting Lung Cancer Screening referral be faxed to [facility] at [phone]. Faxed as requested. Coretta Fierro RN documented in this encounter [facility] 08-02-2022 Miscellaneous Notes Reviewed. Thanks, Diamond Bright APRN.ANALILIA Also faxed pulmonary testing to [facility]. Venecia Davies LPN Pt called back and reports she spoke with [facility] and they can do the Lung Cancer Screening at [facility]. Fax number [phone]. Faxed order/OV/face sheet. Done. Venecia Davies LPN This is not done locally, the closet is [place], or [place]. Diamond Bright APRN.ANALILIA Sw spoke with patient regarding transportation. Discussed [place] medicaid and transportation to medical appts by calling member services to schedule. Patient notes that she has transportation to local doctor appts. The out of town appts patients notes has trouble with getting to those appts. Sw reiterated calling member services to request assistance with scheduling rides to doctor appts. Patient asking if someone will be contacting her to schedule appt for lung cancer screening. Patient notes that she would prefer to stay local to have this done. Sw is not aware of this being able to be done local unless [facility] has this option. Sw will see what ARCI Fields has to say about where to best go for lung cancer screening. documented in this encounter [facility] 08-02-2022 History of Presen t illness Narrative 08/02/2022 Patient presents with: Yearly Exam SUBJECTIVE: This is a 52 year old that is here today for Above Complaints. Since last office appointment has been in good health without ER visits or hospitalizations. For three weeks mouth and throat are dry. Has noted increased thirst and urination. Would like checked for diabetes. Does not feel rested when she wakes up. Feels drowsy during the day. Reports a couple of year ago she has spirometry testing and it showed she may have sleep apnea. Unsure whether she snores or not as she lives alone. Follows with Dr. Mcdonald for hx of HIV. Taking biktarvy as prescribed Smokes about 1 PPD. 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 Mcdonald-ID Persistent cough 07/2022 Tobacco use disorder ALLERGIES House Dust Mite and Singulair [Montelukast] MEDICATIONS Current Outpatient Medications Medication Sig amoxicillin-clavulanic acid (AUGMENTIN) 875-125 mg per tablet Take 1 tablet by mouth twice daily for 5 days. triamcinolone (KENALOG) 0.025 % lotn Apply 1 application to affected area twice daily. lansoprazole (PREVACID) 15 mg capsule Take 1 capsule by mouth daily before breakfast. 1/2 hr before meal. dyideinecjj-yhsxgdwcbhqju-fasjty vir alafenamide (BIKTARVY) 50-200-25 mg per tablet Take 1 tablet by mouth once daily. albuterol HFA (VENTOLIN HFA) 90 mcg/actuation inhaler Inhale 2 Puffs as instructed every 4 hours as needed. No current facility-administered medications for this visit. Medications and allergies reviewed by this provider. SOCIAL HISTORY Social History Tobacco Use Smoking status: Every Day Packs/day: 1.00 Years: 38.00 Pack years: 38.00 Types: Cigarettes Smokeless tobacco: Never Substance Use Topics Alcohol use: Not Currently Drug use: Never Comment: past hx REVIEW OF SYSTEMS GENERAL: No weight loss or fevers HEENT: Negative for frequent or significant headaches, No changes in hearing or vision, no nose bleeds or other nasal problems NECK: Negative for lumps, goiter, pain and significant neck swelling RESPIRATORY: Negative for cough, hemoptysis, wheezing, COPD, dyspnea or shortness of breath CARDIOVASCULAR: Negative for chest pain, leg swelling, hypertension, CHF or palpitations GI: No nausea, vomiting, or diarrhea : No history of dysuria, frequency or incontinence METALSMITH HELPER: Negative for abnormal vaginal bleeding, abnormal vaginal discharge MUSCULOSKELETAL: Negative for joint pain or swelling, back pain or muscle pain SKIN: Negative for lesions, rash, and itching PSYCH: Negative for sleep disturbance, mood disorder and recent psychosocial stressors HEMATOLOGY/LYMPHOLOGY: Negative for prolonged bleeding, bruising easily or swollen nodes ENDOCRINE: Negative for cold or heat intolerance and goiter NEURO: No history of headaches, syncope, paralysis, seizures or tremors All other reviewed and negative other than HPI. OBJECTIVE: BP 124/78 Pulse 70 Resp 16 Ht 157.4 cm (5' 1.97 ) Wt 56.8 kg (125 lb 3.2 oz) SpO2 100% BMI 22.92 kg/m . Vital signs reviewed by this provider. APPEARANCE Well appearing, alert, in no acute distress, well-hydrated, well nourished. EYES conjunctiva and sclera normal. EARS External ears normal, canals clear NECK Supple, no adenopathy; thyroid symmetric, normal size, no bruits HEART RRR with normal S1 and S2, no murmurs, no gallops, no JVD appreciated LUNG clear to auscultation. No wheezes, rhonchi or rales ABDOMEN bowel sounds normoactive, no bruits, soft, non-tender, non-distended, without organomegaly or palpable masses EXTREMITIES Extremities normal, No deformities, No skin discoloration, and No edema SKIN Skin color, texture, turgor normal, no suspicious rashes or lesions to exposed skin HEPATITIS B(1 of 3 - 3-dose series) Never done MENINGOCOCCAL CONJUGATE(1 - Risk start 2-23 months series) Never done HEPATITIS A(1 of 2 - Risk 2-dose series) Never done HEPATITIS C SCREENING Never done SHINGRIX VACCINE(1 of 2) Never done DIABETES SCREEN Never done COLORECTAL CANCER SCREENING Never done LUNG CANCER SCREENING Never done MAMMOGRAM due on 03/12/2020 DEPRESSION ASSESSMENT Never done PAP TESTING due on 03/12/2024 HPV TESTING due on 03/12/2024 LIPID SCREEN due on 01/26/2027 DTAP,TDAP,TD(2 - Td or Tdap) due on 07/06/2032 INFLUENZA Completed COVID-19 VACCINE Completed PNEUMOCOCCAL Completed HPV VACCINE Aged Out MMR Discontinued ASSESSMENT/PLAN: 1. Routine physical examination - ICD9: V70.0, ICD10: Z00.00 (primary diagnosis) - Counseled on healthy diet and regular exercise - Calcium intake with supplements or by diet of 1000 mg/day for under 50, 3011-0660 mg/day for 50+ - Colorectal cancer screening recommended - agrees to Cologuard - Smoking cessation encouraged; discussed risks to health and quitting strategies. Patient is not ready to quit - Depression screening tool completed and reviewed with patient. Based on score and interview, patient is not at risk for depression and recommended no further intervention at this time. - Follow up for annual exam in one year - COMP METABOLIC PANEL - CBC 2. Fatigue, unspecified type - ICD9: 780.79, ICD10: R53.83 - consider anemia vs thryoid vs iron/vitamin D or b12 def vs SUNSHINE vs diabetes - HOME SLEEP APNEA TEST (HSAT) - VITAMIN D 25 HYDROXY - COMP METABOLIC PANEL - CBC - TSH BLD - FERRITIN BLD - IRON + TIBC - follow-up pending testing 3. Screening for colon cancer - ICD9: V76.51, ICD10: Z12.11 - COLOGUARD 4. Polyuria - ICD9: 788.42, ICD10: R35.89 - HGB A1C 5. Polydipsia - ICD9: 783.5, ICD10: R63.1 - HGB A1C 6. Daytime somnolence - ICD9: 780.54, ICD10: R40.0 - HOME SLEEP APNEA TEST (HSAT) 7. Encounter for screening for lung cancer - ICD9: V76.0, ICD10: Z12.2 - CONSULT LUNG CANCER SCREENING CLINIC 8. Lack of access to transportation - ICD9: V15.89, ICD10: Z59.82 - UNBUNDLER [CONSULT TO SOCIAL WORK] 9. Encounter for immunization - ICD9: V03.89, ICD10: Z23 - PNEUMOCOCCAL VACCINE (PREVNAR 20) 10. Special screening examination for viral disease - ICD9: V73.99, ICD10: Z11.59 - HEP C AB IA W/CONF SCRN 11. HIV infection, unspecified symptom status (HCC) - ICD9: V08, ICD10: B20 - follow-up with infectious disease as scheduled - continue current medications Diamond Bright APRN.FLAT BREAKDOWN PROCESSOR Prescription instructions reviewed with patient as applicable. Patient advised if symptoms do not improve or if symptoms worsen sooner, to contact their primary care physician. Potential red flag symptoms discussed with the patient. Reviewed appropriate action plan to take if red flag symptoms occur. Patient agreeable to treatment plan. documented in this encounter [facility] 07-30-2022 History of Presen t illness Narrative Images from the original note were not included. Subjective Patient came in with complaints of cat bite on left forearm. Patient says it is her own cat. Patient denies any fever chills nausea vomiting swelling redness. The history is provided by the patient. No historical interpreter was used. Animal Bite Review of Systems Constitutional: Negative. Skin: Negative. Objective Physical Exam Constitutional: Appearance: Normal appearance. Pulmonary: Effort: Pulmonary effort is normal. Skin: Comments: Patient has 2 puncture wounds in areas marked above. No erythema or edema noted. Neurological: Mental Status: She is alert. 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 Mcdonald-ID Persistent cough 07/2022 Tobacco use disorder PAST SURGICAL HISTORY Procedure Laterality Date BREAST AUGMENTATION W/PROSTHETIC IMPLANT Bilateral 1995 under the muscle ALLERGIES House Dust Mite and Singulair [Montelukast] MEDICATIONS amoxicillin-clavulanic acid (AUGMENTIN) 875-125 mg per tablet Take 1 tablet by mouth twice daily for 5 days. triamcinolone (KENALOG) 0.025 % lotn Apply 1 application to affected area twice daily. lansoprazole (PREVACID) 15 mg capsule Take 1 capsule by mouth daily before breakfast. 1/2 hr before meal. albuterol HFA (VENTOLIN HFA) 90 mcg/actuation inhaler Inhale 2 Puffs as instructed every 4 hours as needed. nfxtabgqsbm-fbpfohoaoqooi-oyyprp vir alafenamide (BIKTARVY) 50-200-25 mg per tablet Take 1 tablet by mouth once daily. FAMILY HISTORY Problem Relation Age of Onset Emphysema Mother other (lung cancer) Mother Cancer Father prostate Breast Cancer Maternal Aunt Bipolar disorder Sister other (mental health) Maternal Grandmother No Known Problems Maternal Grandfather Breast Cancer Paternal Grandmother Social History Tobacco Use Smoking status: Every Day Packs/day: 1.00 Years: 38.00 Pack years: 38.00 Types: Cigarettes Smokeless tobacco: Never Substance Use Topics Alcohol use: Not Currently Drug use: Never Comment: past hx ASSESSMENT/PLAN: 1. Cat bite, initial encounter - ICD9: 879.8, E906.3, ICD10: W55.01XA This time patient was placed on Augmentin twice a day for 5 days instructed about proper use of medication and supportive therapies. Patient was educated about signs to watch for such as redness swelling drainage fever chills nausea. If any of these symptoms occur patient will go to the emergency room. Patient was okay with this care plan. Did review medications in chart with patient. Sulma Lane APRN.CNP documented in this encounter [facility] 07-22-2022 Miscellaneous Notes Patient notified. Milagros Abdullahi MA This can be discussed at upcoming appointment. Diamond Bright APRN.CNP Patient is also asking if she can take over the counter Vitamin D please advise the patient. Pt has Physical Appt with Diamond Bright CNP on 08/02 and is asking if provider would like to order labs prior to appt? She requests labs to test her liver and kidneys . She also has request for more specific testing of fungus that comes from the soil and other lung and heart testing. Advised pt to discuss this with Diamond at upcoming appt to determine appropriate further testing. Please call pt with update. Thank you. documented in this encounter [facility] 07-20-2022 History of Presen t illness Narrative PULM FUNCTION SMARTBLOCK: Provider: Prudencio Pedro MD Assisting Tech: CHING Orellana Spirometry w/BD: 1 LV - Box: 1 documented in this encounter [facility] 07-07-2022 Miscellaneous Notes Follow-up call placed to patient. No answer. VM left to call PCP office if has not sought medical evaluation of issue below. Coretta Fierro RN Will need to be evaluated. Diamond Bright APRN.ANALILIA Patient calling her indoor cat had bitten her and scratched her today, cat has never done that to her before. Advised since no appt available at this time of the day to go to express care for evaluation, may need tetanus shot updated. documented in this encounter [facility] 07-06-2022 History of Presen t illness Narrative Images from the original note were not included. Subjective HPI HPI Tracy Vazquez is a 52 year old female who presents today for CC of multiple cat bites. This started 1 hour ago. Has tried cleansing with alcohol. This is her house cat, up to date on vaccinations aside of rabies. Unknown last tetanus vaccination. 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 Mcdonald-ID PAST SURGICAL HISTORY Procedure Laterality Date BREAST AUGMENTATION W/PROSTHETIC IMPLANT Bilateral 1995 under the muscle ALLERGIES House Dust Mite and Singulair [Montelukast] MEDICATIONS triamcinolone (KENALOG) 0.025 % lotn Apply 1 application to affected area twice daily. meloxicam (MOBIC) 15 mg tablet Take 1 tablet by mouth once daily. With food. lansoprazole (PREVACID) 15 mg capsule Take 1 capsule by mouth daily before breakfast. 1/2 hr before meal. albuterol HFA (VENTOLIN HFA) 90 mcg/actuation inhaler Inhale 2 Puffs as instructed every 4 hours as needed. pwteqrowweb-pjczvhqedfvrb-fzrqvt vir alafenamide (BIKTARVY) 50-200-25 mg per tablet Take 1 tablet by mouth once daily. amoxicillin-clavulanic acid (AUGMENTIN) 875-125 mg per tablet Take 1 tablet by mouth twice daily for 3 days. FAMILY HISTORY Problem Relation Age of Onset Emphysema Mother other (lung cancer) Mother Cancer Father prostate Breast Cancer Maternal Aunt Bipolar disorder Sister other (mental health) Maternal Grandmother No Known Problems Maternal Grandfather Breast Cancer Paternal Grandmother Social History Tobacco Use Smoking status: Every Day Packs/day: 1.00 Years: 38.00 Pack years: 38.00 Types: Cigarettes Smokeless tobacco: Never Substance Use Topics Alcohol use: Not Currently Drug use: Never Comment: past hx ROS Objective Blood pressure 110/68, pulse 96, temperature 36.3 C (97.4 F), resp. rate 16, weight 56.2 kg (124 lb), SpO2 98 %. Physical Exam Constitutional: General: She is not in acute distress. Appearance: She is not toxic-appearing or diaphoretic. HENT: Head: Normocephalic and atraumatic. Pulmonary: Effort: Pulmonary effort is normal. No accessory muscle usage or respiratory distress. Skin: Neurological: Mental Status: She is alert and oriented to person, place, and time. ASSESSMENT/PLAN: 1. Cat bite, initial encounter - ICD9: 879.8, E906.3, ICD10: W55.01XA (primary diagnosis) Keep clean and covered Augmentin ordered F/u for s/s infection - AMOXICILLIN 875 MG-POTASSIUM CLAVULANATE 125 MG TABLET 2. Need for tetanus booster - ICD9: V03.7, ICD10: Z23 - TDAP VACCINE AGE 7+ IM Updated. Prasanth Shah APRN.FLAT BREAKDOWN PROCESSOR documented in this encounter [facility] 07-05-2022 History of Presen t illness Narrative 07/05/2022 Patient presents with: Mouth/Lip Problem: Gum problem SUBJECTIVE: This is a 52 year old that is here today for Above Complaints.. Thinks she has gingivitis. Red when she pulls down her lip. Taking tylenol and gargling with salt water which is helping some. Denies sores to mouth, bleeding gums, painful chewing or change in medications. 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 Mcdonald-ID ALLERGIES House Dust Mite and Singulair [Montelukast] MEDICATIONS Current Outpatient Medications Medication Sig lansoprazole (PREVACID) 15 mg capsule Take 1 capsule by mouth daily before breakfast. 1/2 hr before meal. albuterol HFA (VENTOLIN HFA) 90 mcg/actuation inhaler Inhale 2 Puffs as instructed every 4 hours as needed. brmcncgjpnz-tsyhpmzxzrumf-radxjh vir alafenamide (BIKTARVY) 50-200-25 mg per tablet Take 1 tablet by mouth once daily. meloxicam (MOBIC) 15 mg tablet Take 1 tablet by mouth once daily. With food. No current facility-administered medications for this visit. Medications and allergies reviewed by this provider. SOCIAL HISTORY Social History Tobacco Use Smoking status: Every Day Packs/day: 1.00 Years: 38.00 Pack years: 38.00 Types: Cigarettes Smokeless tobacco: Never Substance Use Topics Alcohol use: Not Currently Drug use: Never Comment: past hx REVIEW OF SYSTEMS All other reviewed and negative other than HPI. OBJECTIVE: BP 118/92 Pulse 97 Temp 36.7 C (98 F) Resp 16 Wt 56.2 kg (124 lb) SpO2 98% BMI 22.32 kg/m . Vital signs reviewed by this provider. General appearance: Well appearing, alert, in no acute distress, well-hydrated, well nourished. Skin: Skin color, texture, turgor normal, no suspicious rashes or lesions Oropharynx: Lips and tongue normal, oropharynx normal and Positive findings: gums receding lower front with mild erythema. Teeth in ill repair. No mouth sores observed HEPATITIS B(1 of 3 - 3-dose series) Never done MENINGOCOCCAL CONJUGATE(1 - Risk start 2-23 months series) Never done HEPATITIS A(1 of 2 - Risk 2-dose series) Never done MMR(1 of 2 - Risk 2-dose series) Never done HEPATITIS C SCREENING Never done DTAP,TDAP,TD(1 - Tdap) Never done SHINGRIX VACCINE(1 of 2) Never done LIPID SCREEN Never done DIABETES SCREEN Never done COLORECTAL CANCER SCREENING Never done LUNG CANCER SCREENING Never done MAMMOGRAM due on 03/12/2020 PNEUMOCOCCAL(3 - PPSV23 if available, else PCV20) due on 04/24/2021 DEPRESSION ASSESSMENT Never done PAP TESTING due on 03/12/2024 HPV TESTING due on 03/12/2024 INFLUENZA Completed COVID-19 VACCINE Completed HPV VACCINE Aged Out ASSESSMENT/PLAN: 1. Gingivitis - ICD9: 523.10, ICD10: K05.10 - would recommend she see a dentist for further evaluation and treatment options. Diamond Bright APRN.CNP Prescription instructions reviewed with patient as applicable. Patient advised if symptoms do not improve or if symptoms worsen sooner, to contact their primary care physician. Potential red flag symptoms discussed with the patient. Reviewed appropriate action plan to take if red flag symptoms occur. Patient agreeable to treatment plan. I spent a total of 20 minutes on the date of the service which included preparing to see the patient, [id number] patient care, completing clinical documentation, obtaining and/or reviewing separately obtained history, performing a medically appropriate examination, and counseling and educating the patient/family/caregiver. documented in this encounter [facility] 06-30-2022 Miscellaneous Notes Reviewed. Diamond Bright APRN.ANALILIA Patient states she is allergic to dust and wonders if the symptoms are from her allergies. Noticed the symptoms started after she started receiving her allergy vaccines a few weeks ago . Wonders if she has a sinus infection since she is having pain to her face. Appointment scheduled for Tuesday07/06/22 with Diamond Bright. Shraddha Cuevas LPN Needs OV to discuss. Patient calls and states that for about a week now she has had a metal taste in her mouth. Patient has had headaches. She also has had facial and ear pain. Patient states that her gums are purple. Patient states that she knows that she has gingivitis and has been afraid to go to dentist. Patient asking what provider would advise. Please review and advise, Zeny Aquino RN documented in this encounter [facility] 06-29-2022 History of Presen t illness Narrative Chief Complaint Patient presents with: UTI: Flank and bladder pain x 3 days- has some incontinence with cough and fatigue HPI Tracy Vazquez is a 52 year old female who presents here today for Above Complaints. Patient complaining of today of pain which started in her right lower back/hip with radiation into her RLQ abdomen. Has been urinating more often, but also drinks a lot of liquid during the day. Treating with tylenol which helps temporarily with pain. Admits to history of kidney stones age 14. Denies dysuria, hematuria, urgency, fever, flank pain, abnormal vaginal bleeding/discharge, nausea, vomiting, fall/injury to back, loss of bowel/bladder control, saddle anesthesia, LE weakness. . Does a lot of repetitive bending/lifting at work. Past medical history, appointments, medications, allergies reviewed. 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 Mcdonald-ID Previous Surgical History PAST SURGICAL HISTORY Procedure Laterality Date BREAST AUGMENTATION W/PROSTHETIC IMPLANT Bilateral 1995 under the muscle Family History FAMILY HISTORY Problem Relation Age of Onset Emphysema Mother other (lung cancer) Mother Cancer Father prostate Breast Cancer Maternal Aunt Bipolar disorder Sister other (mental health) Maternal Grandmother No Known Problems Maternal Grandfather Breast Cancer Paternal Grandmother Patient Allergies ALLERGIES Allergen Reactions House Dust Mite Other: See Comments Itchy eyes Singulair [Monteluk* Other: See Comments Had nightmares Current Medications Current Outpatient Medications on File Prior to Visit Medication Sig lansoprazole (PREVACID) 15 mg capsule Take 1 capsule by mouth daily before breakfast. 1/2 hr before meal. albuterol HFA (VENTOLIN HFA) 90 mcg/actuation inhaler Inhale 2 Puffs as instructed every 4 hours as needed. suwttcrkoaw-rnwljrtjejqel-xkkyuf vir alafenamide (BIKTARVY) 50-200-25 mg per tablet Take 1 tablet by mouth once daily. No current facility-administered medications on file prior to visit. Social History Social History Tobacco Use Smoking status: Every Day Packs/day: 1.00 Years: 38.00 Pack years: 38.00 Types: Cigarettes Smokeless tobacco: Never Substance Use Topics Alcohol use: Not Currently Drug use: Never Comment: past hx Review of Symptoms REVIEW OF SYSTEMS See HPI EXAM: BP 104/66 Pulse 90 Temp 36 C (96.8 F) Resp 16 Wt 56.2 kg (123 lb 12.8 oz) SpO2 99% BMI 22.28 kg/m General Appearance: Well appearing, alert, in no acute distress, well-hydrated, well nourished.. Skin: Skin color, texture, turgor normal, no suspicious rashes or lesions. Back:no pain to palpation of vertebrae, good flexion and extension, good range of motion, reflexes are 2+ and symmetric, motor and sensory appear to be normal, negative SLR test, no evidence of scoliosis. TTP over right lumbar paraspinal muscles. Abdomen: Normal abdominal exam, Abdomen soft, non-tender. Bowel sounds normal. No masses, organomegaly, Negative CVA tenderness. Health Maintenance List HEPATITIS B(1 of 3 - 3-dose series) Never done MENINGOCOCCAL CONJUGATE(1 - Risk start 2-23 months series) Never done HEPATITIS A(1 of 2 - Risk 2-dose series) Never done MMR(1 of 2 - Risk 2-dose series) Never done HEPATITIS C SCREENING Never done DTAP,TDAP,TD(1 - Tdap) Never done SHINGRIX VACCINE(1 of 2) Never done LIPID SCREEN Never done DIABETES SCREEN Never done COLORECTAL CANCER SCREENING Never done LUNG CANCER SCREENING Never done MAMMOGRAM due on 03/12/2020 PNEUMOCOCCAL(3 - PPSV23 if available, else PCV20) due on 04/24/2021 DEPRESSION ASSESSMENT Never done COVID-19 VACCINE(5 - Booster for Pfizer series) due on 11/19/2021 PAP TESTING due on 03/12/2024 HPV TESTING due on 03/12/2024 INFLUENZA Completed HPV VACCINE Aged Out Data reviewed Component Latest Ref Rng & Units 06/29/2022 GLUCOSE UA (POCT) Negative mg/dL Negative BILIRUBIN UA (POCT) Negative Negative KETONE UA (POCT) Negative mg/dL Negative SPECIFIC GRAVITY UA (POCT) 1.005 - 1.030 1.010 HEMOGLOBIN/BLOOD UA (POCT) Negative Negative PH UA (POCT) 4.5 - 8.0 6.0 PROTEIN UA (POCT) Negative mg/dL Negative UROBILINOGEN UA (POCT) Normal E.U./dL 0.2 NITRITE UA (POCT) Negative Negative LEUKOCYTES UA (POCT) Negative Negative COLOR UA (POCT) Light yellow CLARITY UA (POCT) Slightly Cloudy ASSESSMENT/PLAN: 1. Acute right-sided low back pain with right-sided sciatica - ICD9: 724.2, 724.3, ICD10: M54.41 Sciatica - Ice for localized tenderness - Warm moist heat for 20 min three times a day - NSAIDS- see orders - Patient given instructions use of medications as ordered, intermittent rest, back care exercise program, weight loss, improved posture, proper lifting techniques, and intermittent use of heat 2. Need for COVID-19 vaccine - ICD9: V04.89, ICD10: Z23 - PFIZER-BIONTECH COVID-19 BIVALENT BOOSTER VACCINE, AGE 12+ YR Prudencio Pedro MD documented in this encounter [facility] 06-28-2022 Miscellaneous Notes Patient calls and notified of provider instructions. Patient voiced understanding. Zeny Aquino RN Message left for patient to return call for update. I would recommend she eat 3 healthy meals per day. Can take before dinner instead of breakfast. Patient calls and states that she does not eat breakfast or lunch. Patient states that she only eats one meal a day and it is at 6 pm. Patient asking when should she be taking prevacid since she does not eat breakfast? Patient states that she takes her HIV medicine at 9 pm. If she took Prevacid closer to her only meal would it be ok since she takes other medication at 9 pm? Please review and advise, Zeny Aquino RN documented in this encounter [facility] 06-21-2022 Miscellaneous Notes Left detailed message on secure VM regarding provider's message. 3 month rx for prevacid sent to pharmacy. Call if not improving symptoms in 1-2 weeks. Tracy Vazquez is calling Prudencio Pedro MD today to request a prescription for GERD, medication to be sent to [facility] in [place], if provider agrees to restarting this medication. Patient is stating it was prevacid Patient has been identified by name and birthdate. Duration of symptoms: N/A Person calling: self Call patient at: at home [phone] (home) Was an appointment scheduled: No Closing statement: Results or non-symptom based questions: Thank you for calling [facility], your call will be returned within the next business day. Mariangel Connors [employer] Electronically signed by Mariangel Connors [facility] 06/21/2022 11:06 AM EST documented in this encounter [facility] 06-07-2022 Miscellaneous Notes Phone call placed to patient, patient voices understanding. NAMITA Pickens She can just stop medication. Diamond Bright APRN.ANALILIA Last OV: 04/09/22 Pt calls to report she was prescribed Singulair two months ago and it is not helping her. Pt reports she has nightmares because of medication also. Pt reports she does not want to take Singulair anymore and is asking if she should just stop medication or wean off of it. Please review and advise. Leda Burdick LPN documented in this encounter [facility] 06-01-2022 Miscellaneous Notes Call placed to patient and scheduled annual physical for July 2022 per patient request. Gely Estrada RN I would have her schedule an annual physical appointment sometime in the first quarter of the new year and check labs at that time. Patient calling to state she does not believe she has had recent lab work to check her kidneys and liver. Asking provider if she is due for these labs anytime soon? Please advise. Thank you. documented in this encounter [facility] 06-01-2022 Miscellaneous Notes Thank you. FYI: Pt called in with an update on her ENT apt. Pt is highly allergic to dust and dust mites, slightly allergic to cats, cows, horses and pollen. PT will be starting allergy shots in 2 weeks. Venecia Davies LPN documented in this encounter [facility] 05-28-2022 Miscellaneous Notes Patient returned call and given provider's message below with verbalized understanding. Called and left a voicemail for the Patient to call back and ask for a nurse to receive the providers message. Paula Boston RN Without possible exposure or coughing up blood, would not recommend checking TB for new onset cough otherwise. Patient asking pcp to order her a TB blood test. Reports she has a cough, and just wants to test to be on the safe side. Has not been exposed to TB that she knows of. Reports she had covid a month ago and read somewhere that a lot of people who get covid also get TB. Please advise patient. documented in this encounter [facility] 05-26-2022 Miscellaneous Notes Agree. Pt called back and information listed below given. Pt states she can not take Flonase if makes her nose bleed. Pt was instructed to take Singulair and saline spray. Pt instructed not to take jessica, benadryl, Claritin, Zyrtec, Tylenol PM, Tylenol Sinus, Sleep aides, Hydroxyzine, Aze Lasting, Xydal ,robitussin D , Sudafed D, Nyquil , Midol and Echinacea 1 week before testing. Pt will keep apt with ENT next week. Venecia Davies LPN Left message for patient to return call to office Milagros Chen Cma I would recommend continuing with Singulair and take Zyrtec or Jessica OTC along with flonase daily. Follow up with ENT for further testing and will await their recommendations. Pt reports that even with taking the Singular her allergies are still horrible when she wakes up in the morning. She said it helps at night when she takes it, but in the morning she wakes up coughing up all this mucus. She states she has to drink coffee and that makes it worse, and the coughing wears her out. She states she went to the ENT and they told her she has a lot of mucus at the bottom of her nose. She is going back next Tuesday to do another allergy skin test to see if she is allergic to anything other than dust. Pt reports, I hope I'm not allergic to smoke. . I told her the provider would probably wait to see if the ENT recommends anything before he would want to try changing medications. documented in this encounter [facility] 05-17-2022 Miscellaneous Notes Pt called and notified of message below, verbalized understanding. Rut Darnell Ma I would recommend she get the influenza vaccine like she has in years past. Patient reports she wants to get the flu shot, but unsure if she should. Reports she is HIV+ (no issues going on with that) and tested positive for covid on 04-09-22 and is fully vaccinated. Reports she never had covid s/s. Reports she has allegies and always has runny nose in the morning, but clears a couple hours after waking up. Asking provider if she is safe to get the flu shot? documented in this encounter [facility] 05-03-2022 Miscellaneous Notes Patient telephoned and made aware. Shraddha Cuevas LPN I have sent over order for Singulair 10 mg- this pill she needs to swallow it is not chewable. Take one tablet at bedtime Diamond Bright APRN.ANALILIA Patient calls to ask if her Singulair dose could be bumped up a little ? She reports that the Singulair 5 mg pill is helping but she is still waking up every morning with a bunch of clear thick mucus that takes atleast an hour to clear. If provider agrees she would like new prescription sent to [facility]. Gely Estrada RN documented in this encounter [facility] 04-14-2022 Miscellaneous Notes Pt called and is notified of providers message. Pt voices understanding, states she will probably wait until next week to get it. Paula Boston RN I recommend she get it when she if feeling improved after her COVID-19 infection. Diamond Bright APRN.ANALILIA Patient calls and is asking when she can get the flu shot. Patient states she was told at the pharmacy 2- 4 weeks since she tested positive for Covid. 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 Please review and advise, Zeny Aquino RN documented in this encounter [facility] 04-14-2022 Miscellaneous Notes Patient called and made aware. Voices understanding. Declines flonase due to it causing nose bleeds in the past but states she may try the saline spray. Shraddha Cuevas LPN She just started th Singulair so it takes time to start working fully. She can use saline nasal spray hourly to help nasal congestion. She could also try Flonase nasal spray two sprays each nares, rinse out mouth after use. Diamond Bright APRN.CNP Pt calling to ask about returning to work after having covid. Pt states she has a cold sore between her nose & mouth. Pt told her mask will cover cold sore. Pt states she is coughing mucus up & is taking mucinex but reports it upsets her stomach. Pt states sudefed was more helpful but she was instructed not to take it. Pt asking what else she can try? Pt also states she is taking singulair at for allergies & that it is helpful at night but not during the day. Reports she has nasal drip & a productive cough. Asking if she should take something different? Please advise. Abigail August LPN documented in this encounter [facility] 04-12-2022 Miscellaneous Notes Patient telephoned. Message below given. Voices understanding. Shraddha Cuevas LPN She had had 8 days of symptoms when she was in the office Tuesday. CDC says to isolate for 5 days and as long as you are fever free for 24 hours or more without fever reducers and improved symptoms may go back to work but needs to wear a mask for five more days. No reason she needed to miss her appointment. Diamond Bright APRN.ANALILIA Patient telephoned and message below given, voices understanding. Missed appointment with job and family today. Requesting a letter about being covid positive for that and for work. Shraddha Cuevas LPN She said her symptoms started eight days ago so she is past the window for paxlovid or monoclonal antibodies. Diamond Bright APRN.ANALILIA Patient calling said her COVID test results came back positive. She also is HIV positive since 2009, she was asking for Paxlovid rx. Aware DIALYSIS NURSE and PCP are both out of office today. Patient said her symptoms began 2.5 months ago with coughing. Patient said she can not do virtual visit does not know how to do that. Aware can not schedule phone visit. Advised to go to [facility] express care for evaluation. Patient said her transportation will not pick her up since she has COVID, she is afraid of passing to her friend. Advised to wear double mask if friend brings her express care. Patient said she will decide what she is going to do. documented in this encounter [facility] 04-09-2022 History of Presen t illness Narrative Covid 04/09/2022 Patient presents with: ER F/U: [facility] on Mar 18 for bronchitis SUBJECTIVE: This is a 52 year old that is here today for Above Complaints. HOSPITAL/ER FOLLOW UP: Reason for visit: cough and congestion Which facility: [facility] Date of visit: 03/18/2022 Diagnosis: cold symptoms Testing done: chest xray Treatment given: doxycycline Current symptoms: hacking cough Completed course of doxycyline without side effects. Reports sputum color has returned to clear but still with hacking cough which is worse in the morning. Using OTC robitussin and mucinex which helps some. Continues to smoke cigarettes but is trying to cut back. Has not completed pulmonary function testing as recommend at last office visit on 02/18/2022. Reports ears feel clogged at times and eye can be watery. Reports seasonal allergies. Has been using OTC jessica and has tired Claritin and zyrtec in the past without relief. Admits to some rhinorrhea, nasal congestion, fatigue and sore throat for the last eight days. Denies fevers, chills, muscle aches, headaches, SOB, dyspnea, wheezing, loss of taste or smell, nausea vomiting or diarrhea ER records reviewed PAST MEDICAL HISTORY Diagnosis Date Anxiety Brain aneurysm Reprots from taking LSD- no surgery for this GERD (gastroesophageal reflux disease) Hepatitis B reports she is clear HIV (human immunodeficiency virus infection) (HCC) [address] Dr[address] Mcdonald-ID ALLERGIES House Dust Mite MEDICATIONS Current Outpatient Medications Medication Sig albuterol HFA (VENTOLIN HFA) 90 mcg/actuation inhaler Inhale 2 Puffs as instructed every 4 hours as needed. muavzggnrbq-vurwurefveqom-ajlcnk vir alafenamide (BIKTARVY) 50-200-25 mg per tablet Take 1 tablet by mouth once daily. No current facility-administered medications for this visit. Medications and allergies reviewed by this provider. SOCIAL HISTORY Social History Tobacco Use Smoking status: Every Day Packs/day: 1.00 Years: 38.00 Pack years: 38.00 Types: Cigarettes Smokeless tobacco: Never Substance Use Topics Alcohol use: Not Currently Drug use: Never Comment: past hx REVIEW OF SYSTEMS All other reviewed and negative other than HPI. OBJECTIVE: BP 112/90 Pulse 92 Temp 36.4 C (97.6 F) Resp 18 Wt 53.7 kg (118 lb 6.4 oz) SpO2 100% BMI 21.31 kg/m . Vital signs reviewed by this provider. APPEARANCE Well appearing, alert, in no acute distress, well-hydrated, well nourished. EYES conjunctiva and sclera normal. EARS External ears normal, canals clear THROAT normal, no erythema NECK Supple, no adenopathy; thyroid symmetric, normal size, no bruits HEART RRR with normal S1 and S2, no murmurs, no gallops, no JVD appreciated LUNG clear to auscultation. No wheezes, rhonchi, or rales SKIN Skin color, texture, turgor normal, no suspicious rashes or lesions to exposed skin HEPATITIS B(1 of 3 - 3-dose series) Never done MENINGOCOCCAL CONJUGATE(1 - Risk start 2-23 months series) Never done HEPATITIS A(1 of 2 - Risk 2-dose series) Never done MMR(1 of 2 - Risk 2-dose series) Never done HEPATITIS C SCREENING Never done DTAP,TDAP,TD(1 - Tdap) Never done SHINGRIX VACCINE(1 of 2) Never done LIPID SCREEN Never done DIABETES SCREEN Never done COLORECTAL CANCER SCREENING Never done LUNG CANCER SCREENING Never done MAMMOGRAM due on 03/12/2020 DEPRESSION SCREENING due on 05/10/2020 PNEUMOCOCCAL(3 - PPSV23 or PCV20) due on 04/24/2021 COVID-19 VACCINE(5 - Booster for Pfizer series) due on 11/19/2021 INFLUENZA(1) due on 03/18/2022 PAP TESTING due on 03/12/2024 HPV TESTING due on 03/12/2024 HPV VACCINE Aged Out ASSESSMENT/PLAN: 1. Cough, unspecified type - ICD9: 786.2, ICD10: R05.9 (primary diagnosis) - has been ongoing- likely related to continued smoking - no red flag symptoms or exam findings - red flag symptoms discussed, verbalizes understanding - continue OTC medications - smoking cessation highly encouraged - COVID WITH FLUA+B, ROUTINE - 2019 CORONAVIRUS - complete PFT's, to ER with red flag symptoms 2. Symptoms of upper respiratory infection (URI) - ICD9: 786.09, ICD10: R09.89 - believe her symptoms or more related to her smoking and seasonal allergies - COVID WITH FLUA+B, ROUTINE - 2019 CORONAVIRUS 3. Tobacco use - ICD9: 305.1, ICD10: Z72.0 - Cessation encouraged. - Physiologic and physical aspects of tobacco addiction as well as strategies for quitting were discussed. - Counseling was given focusing on the harmful effects of this addiction especially given the patient's medical condition(s) which will be worsened because of the chemicals in tobacco. 4. Seasonal allergies - ICD9: 477.9, ICD10: J30.2 - MONTELUKAST 5 MG CHEWABLE TABLET- common side effects discussed, verbalizes understanding Diamond Bright, DARIUS.[employer]AKDOWN PROCESSOR Prescription instructions reviewed with patient as applicable. Patient advised if symptoms do not improve or if symptoms worsen sooner, to contact their primary care physician. Potential red flag symptoms discussed with the patient. Reviewed appropriate action plan to take if red flag symptoms occur. Patient agreeable to treatment plan. I spent a total of 30 minutes on the date of the service which included preparing to see the patient, cmzg-ph-gjem patient care, completing clinical documentation, obtaining and/or reviewing separately obtained history, performing a medically appropriate examination, counseling and educating the patient/family/caregiver, and ordering medications, tests, or procedures. . documented in this encounter [facility] 04-05-2022 Miscellaneous Notes Spoke with pt and information listed below given. Pt verbalizes understanding. Venecia Davies LPN Two pills of doxycycline sent as requested. Diamond Bright APRN.ANALILIA Pt called and states she dropped the last 2 pills she was to take today Doxycycline 100 mg. She can not take since they were on the floor. Pt states the floor is dirty. Pt requesting to 2 pills be sent to her pharmacy. Please advise pt when this has been done or if there is a problem. Venecia Davies LPN documented in this encounter [facility] 04-01-2022 Miscellaneous Notes Message left for pt to call back. Kacey Schneider MA I can give her a little more. If continues, needs seen-even if it is urgent care for continued cough. Patient is calling for medication doxycycline 100 mg taking it twice daily, this is an antibiotic that she received from the [facility] ER on 03/18/2022. She complains today of that cough lingering and believes she needs more of this. I did offer her an appointment however she has to work and can not come in, will not do virtual appointment and per patient she works seven days a week. Please call patient to advise if she can have an RX sent to [facility] in [place]. Or what else she can do for the lingering cough. Her phone number is [phone] Patient said she was told she had a bacterial infection in the bronchial tubes. This was two weeks ago. documented in this encounter [facility] 02-18-2022 History of Presen t illness Narrative Chief Complaint Patient presents with: Follow Up: cough continues- medication she was Given caused stomach pain HPI Tracy Vazquez is a 52 year old female who is HIV positive who presents here today for Above Complaints. Patient evaluated by Diamond Podlogar on 01/26 for complaint of persistent cough in the morning which started a couple months ago with following HPI: When gets up in the morning hacks . Reports bringing up clear sputum. Patient does smoke. Takes mucinex which calms it down. Also admit to runny nose. Reports allergies to dust. Has not taken her jessica for a few years. Also reports drainage from eyes when she wakes up and occasionally during the day. She reports drainage is yellowish. Uses warm compresses which helps. Denies fevers, chills, eye pain, visual changes, ear pain, sore throat, nasal congestion cough, wheezing, SOB,or dyspnea. Patient was prescribed fexofenadine and Mucinex D for possible post nasal drip. Obtained CXR which was negative for acute process. Recommended smoking cessation. Today, she states that she was just told that her boyfriend's brother tested positive for COVID. Has not been around this person, but has been around her boyfriend who went to to be tested today. Has been taking the fexofenadine and Mucinex, but stopped after 10 days because they upset her stomach. States that the Mucinex did seem to help with her symptoms. Symptoms stable. Admits to fatigue, rhinorrhea. Denies: fever/chills, headache, SOB, wheezing, sore throat, myalgias, nasal congestion, nausea, vomiting, diarrhea, chest pain, heartburn. Still smoking about 1 pack per day. Not ready to quit today. Past medical history, appointments, medications, allergies reviewed. 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 Mcdonald-CARLOS Previous Surgical History PAST SURGICAL HISTORY Procedure Laterality Date BREAST AUGMENTATION W/PROSTHETIC IMPLANT Bilateral 1995 under the muscle Family History FAMILY HISTORY Problem Relation Age of Onset Emphysema Mother other (lung cancer) Mother Cancer Father prostate Breast Cancer Maternal Aunt Bipolar disorder Sister other (mental health) Maternal Grandmother No Known Problems Maternal Grandfather Breast Cancer Paternal Grandmother Patient Allergies ALLERGIES Allergen Reactions House Dust Mite Other: See Comments Itchy eyes Current Medications Current Outpatient Medications on File Prior to Visit Medication Sig fexofenadine (JESSICA ALLERGY) 60 mg tablet Take 1 tablet by mouth once daily. pseudoephedrine-guaiFENesin (MUCINEX D) 60-600 mg per tablet Take 1 tablet by mouth every 12 hours. hzwujnbrfjm-iplqordyhglnq-pnnpqd vir alafenamide (BIKTARVY) 50-200-25 mg per tablet Take 1 tablet by mouth once daily. No current facility-administered medications on file prior to visit. Social History Social History Tobacco Use Smoking status: Current Every Day Smoker Packs/day: 1.00 Years: 38.00 Pack years: 38.00 Smokeless tobacco: Never Used Substance Use Topics Alcohol use: Not Currently Drug use: Never Comment: past hx Review of Symptoms REVIEW OF SYSTEMS See HPI EXAM: BP 116/76 Pulse 94 Resp 18 Wt 53.2 kg (117 lb 3.2 oz) SpO2 100% BMI 21.09 kg/m General Appearance: Well appearing, alert, in no acute distress, well-hydrated, well nourished.. Skin: Skin color, texture, turgor normal, no suspicious rashes or lesions. Ears: External ears normal, canals clear. Neck: Supple, no adenopathy; thyroid symmetric, normal size, no bruits. Lungs: Lungs clear to auscultation. No wheezing, rhonchi, rales.. Heart: RRR without murmur, gallop, or rubs. No ectopy. Health Maintenance List MENINGOCOCCAL CONJUGATE(1 - Risk start 2-23 months series) Never done HEPATITIS A(1 of 2 - Risk 2-dose series) Never done MMR(1 of 2 - Risk 2-dose series) Never done HEPATITIS C SCREENING Never done DTAP,TDAP,TD(1 - Tdap) Never done HEPATITIS B(1 of 3 - Risk 3-dose series) Never done SHINGRIX VACCINE(1 of 2) Never done LIPID SCREEN Never done DIABETES SCREEN Never done COLORECTAL CANCER SCREENING Never done LUNG CANCER SCREENING Never done MAMMOGRAM due on 03/12/2020 DEPRESSION SCREENING due on 05/10/2020 PNEUMOCOCCAL(3 - PPSV23 or PCV20) due on 04/24/2021 COVID-19 VACCINE(5 - Booster for Pfizer series) due on 01/24/2022 INFLUENZA(1) due on 03/18/2022 PAP TESTING due on 03/12/2024 HPV TESTING due on 03/12/2024 HPV VACCINE Aged Out ASSESSMENT/PLAN: 1. Persistent cough - ICD9: 786.2, ICD10: R05.3 (primary diagnosis) I suspect this is 2/2 her tobacco use for nearly 40 years. Will obtain PFTs for COPD and start abluterol PRN. Discussed use of mucinex, delsym or robitussin OTC for symptoms. Offered help with smoking cessation which she is refusing. Red flags for re-assessment reviewed with patient in detail. - SPIROMETRY - BASELINE AND POST DILATOR - LUNG VOLUMES - ALBUTEROL SULFATE HFA 90 MCG/ACTUATION AEROSOL INHALER 2. Suspected COVID-19 virus infection - ICD9: V01.79, ICD10: Z20.822 Possible exposure. Will test today and call tomorrow with results. Advised to isolate while we are waiting on results. - COVID WITH FLUA+B, ROUTINE - ALBUTEROL SULFATE HFA 90 MCG/ACTUATION AEROSOL INHALER 3. Tobacco use - ICD9: 305.1, ICD10: Z72.0 - Cessation encouraged. - Physiologic and physical aspects of tobacco addiction as well as strategies for quitting were discussed. - Counseling was given focusing on the harmful effects of this addiction especially given the patient's medical condition(s) which will be worsened because of the chemicals in tobacco. - SPIROMETRY - BASELINE AND POST DILATOR - LUNG VOLUMES Prudencio Pedro MD documented in this encounter [facility] 01-27-2022 Miscellaneous Notes PA approved, left message on confidential vm Judith Perez Ma PA submitted through [facility] will wait for response Judith Perez Ma Tracy wants office to be aware that fexofenadine (jessica) will need to have a PA. Generic Mucinex is covered and Patient was able to pickup. Patient did not ask how much pseudoephedrin-guaifenesin was out of pocket. Mattie Serrano LPN documented in this encounter [facility] 01-26-2022 Miscellaneous Notes Patient notified and verbalized understanding Milagros Chen Cma Normal chest xray. Continue with treatment as discussed in office Diamond Marin APRN.ANALILIA documented in this encounter [facility] 01-26-2022 History of Presen t illness Narrative 01/26/2022 Patient presents with: Cough: x1 month Eye Problem: dry drainage every AM x1 month SUBJECTIVE: This is a 52 year old that is here today for Above Complaints.. When gets up in the morning hacks . Reports bringing up clear sputum. Patient does smoke. Takes mucinex which calms it down. Also admit to runny nose. Reports allergies to dust. Has not taken her jessica for a few years. Also reports drainage from eyes when she wakes up and occasionally during the day. She reports drainage is yellowish. Uses warm compresses which helps. Denies fevers, chills, eye pain, visual changes, ear pain, sore throat, nasal congestion cough, wheezing, SOB,or dyspnea. 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 Mcdonald-ID ALLERGIES House Dust Mite MEDICATIONS Current Outpatient Medications Medication Sig tsmyfjynpht-rkckgcqbkefow-tpnnwc vir alafenamide (BIKTARVY) 50-200-25 mg per tablet Take 1 tablet by mouth once daily. No current facility-administered medications for this visit. Medications and allergies reviewed by this provider. SOCIAL HISTORY Social History Tobacco Use Smoking status: Current Every Day Smoker Packs/day: 1.00 Years: 38.00 Pack years: 38.00 Smokeless tobacco: Never Used Substance Use Topics Alcohol use: Not Currently Drug use: Never Comment: past hx REVIEW OF SYSTEMS All other reviewed and negative other than HPI. OBJECTIVE: BP 104/86 Pulse 85 Temp 36.6 C (97.9 F) Resp 16 Wt 52.4 kg (115 lb 9.6 oz) SpO2 97% BMI 20.81 kg/m . Vital signs reviewed by this provider. APPEARANCE Well appearing, alert, in no acute distress, well-hydrated, well nourished. EYES PERRLA, conjunctiva and sclera normal. EARS External ears normal, canals clear Nose/Sinuses: Positive findings: mucosa erythematous and swollen, clear rhinorrhea THROAT normal, no erythema NECK Supple, no adenopathy; thyroid symmetric, normal size, no bruits HEART RRR with normal S1 and S2, no murmurs, no gallops, no JVD appreciated LUNG clear to auscultation. No wheezes, rhonchi or rales SKIN Skin color, texture, turgor normal, no suspicious rashes or lesions MENINGOCOCCAL CONJUGATE(1 - Risk start 2-23 months series) Never done HEPATITIS A(1 of 2 - Risk 2-dose series) Never done MMR(1 of 2 - Risk 2-dose series) Never done HEPATITIS C SCREENING Never done DTAP,TDAP,TD(1 - Tdap) Never done HEPATITIS B(1 of 3 - Risk 3-dose series) Never done SHINGRIX VACCINE(1 of 2) Never done LIPID SCREEN Never done DIABETES SCREEN Never done COLORECTAL CANCER SCREENING Never done LUNG CANCER SCREENING Never done MAMMOGRAM due on 03/12/2020 DEPRESSION SCREENING due on 05/10/2020 PNEUMOCOCCAL(3 - PPSV23 or PCV20) due on 04/24/2021 COVID-19 VACCINE(5 - Booster for Pfizer series) due on 01/24/2022 INFLUENZA(1) due on 03/18/2022 PAP TESTING due on 03/12/2024 HPV TESTING due on 03/12/2024 HPV VACCINE Aged Out ASSESSMENT/PLAN: 1. Acute cough - ICD9: 786.2, ICD10: R05.1 (primary diagnosis) - consider PND, vs related to smoking - no red flag symptoms or exam findings - red flag symptoms discussed, verbalizes understanding - XR CHEST 2V FRONTAL/LAT - FEXOFENADINE 60 MG TABLET - PSEUDOEPHEDRINE-GUAIFENESIN ER 60 MG-600 MG TABLET,EXTEND RELEASE 12HR - recommend smoking cessation - offered prescription for Flonase, patient declines - follow-up if symptoms fail to improve, to ER with red flag symptoms 2. Eye drainage - ICD9: 379.93, ICD10: H57.89 - no drainage or redness on exam - offered allergy eye drops- declines - may continue to use warm compresses - follow-up if symptoms persist 3. Smoking - ICD9: 305.1, ICD10: F17.200 - Cessation encouraged. - Physiologic and physical aspects of tobacco addiction as well as strategies for quitting were discussed. - Counseling was given focusing on the harmful effects of this addiction especially given the patient's medical condition(s) which will be worsened because of the chemicals in tobacco. - Counseling was given 3-4 minutes. Diamond Bright APRN.CNP Prescription instructions reviewed with patient as applicable. Patient advised if symptoms do not improve or if symptoms worsen sooner, to contact their primary care physician. Potential red flag symptoms discussed with the patient. Reviewed appropriate action plan to take if red flag symptoms occur. Patient agreeable to treatment plan. documented [facility] this [facility] Acute cough- Primary Eye drainage Redness or discharge of eye Smoking Tobacco use disorder [facility] Diagnosis Persistent cough- Primary Cough Suspected COVID-19 virus infection Tobacco use Tobacco use disorder [facility] Diagnosis Cough, unspecified type- Primary Symptoms of upper respiratory infection (URI) Tobacco use Tobacco use disorder Seasonal allergies Allergic rhinitis, cause unspecified [facility] Diagnosis Seasonal allergies Allergic rhinitis, cause unspecified [facility] Diagnosis Acute right-sided low back pain with right-sided sciatica- Primary Need for COVID-19 vaccine [facility]* Diagnosis Gingivitis- Primary Chronic gingivitis, plaque induced [facility] Diagnosis Cat bite, initial encounter- Primary Need for tetanus booster Need for prophylactic vaccination with tetanus toxoid alone [facility] Diagnosis Persistent cough Cough Tobacco use Tobacco use disorder [facility] Diagnosis Cat bite, initial encounter- Primary [facility] Diagnosis Routine physical examination- Primary Routine general medical examination at a health care facility Fatigue, unspecified type Screening for colon cancer Special screening for malignant neoplasms, colon Polyuria Polydipsia Daytime somnolence Hypersomnia, unspecified Encounter for screening for lung cancer Lack of access to transportation Encounter for immunization Need for other specified prophylactic vaccination against single bacterial disease Special screening examination for viral disease Special screening examination for unspecified viral disease HIV infection, unspecified symptom status (HCC) [facility] Diagnosis Vitamin D deficiency- Primary Unspecified vitamin D deficiency [facility] Diagnosis Vaginal discharge- Primary Leukorrhea, not specified as infective [facility]* Diagnosis Cat bite, initial encounter- Primary Encounter for screening fecal occult blood testing Special screening for malignant neoplasms, colon [facility] Diagnosis Chronic obstructive pulmonary disease, unspecified COPD type (HCC)- Primary [facility] Diagnosis Tobacco use- Primary Tobacco use disorder Cat scratch Other and unspecified superficial injury of other, multiple, and unspecified sites, without mention of infection Cat bite, initial encounter [facility] Diagnosis Vaginal discharge Leukorrhea, not specified as infective Bacterial vaginosis Vaginitis and vulvovaginitis, unspecified [facility] Diagnosis Viral illness- Primary Unspecified viral infection, in conditions classified elsewhere and of unspecified site Loose stools Abnormal feces [facility] Diagnosis Cat bite, initial encounter- Primary [facility] Diagnosis Multiple abrasions- Primary Abrasion or friction burn of other, multiple, and unspecified sites, without mention of infection [facility] Diagnosis Vitamin D deficiency- Primary Unspecified vitamin D deficiency Smoking Tobacco use disorder [facility] Diagnosis Abnormal mammogram- Primary Abnormal mammogram, unspecified [facility] Diagnosis Vaginal discharge- Primary Leukorrhea, not specified as infective Urinary frequency [facility] Diagnosis Vaginal itching- Primary Pruritus of genital organs [facility] Diagnosis Simple chronic bronchitis (HCC)- Primary Simple chronic bronchitis Centrilobular emphysema (HCC) Other emphysema Cigarette smoker Tobacco use disorder [facility] Diagnosis Viral illness- Primary Unspecified viral infection, in conditions classified elsewhere and of unspecified site Loose stools Abnormal feces [facility] Diagnosis Abnormal mammogram- Primary Abnormal mammogram, unspecified [facility] Diagnosis Pain in left wrist Pain in joint, forearm [facility] Diagnosis Abnormal mammogram Abnormal mammogram, unspecified [facility] Diagnosis Encounter for screening mammogram for breast cancer [facility] Diagnosis Abnormal mammogram Abnormal mammogram, unspecified [facility] Diagnosis Abnormal mammogram Abnormal mammogram, unspecified [facility] Diagnosis Abnormal mammogram Abnormal mammogram, unspecified [facility] Diagnosis Left wrist pain- Primary Pain in joint, forearm Closed fracture of left wrist, initial encounter [facility] Diagnosis Productive cough Cough [facility] Diagnosis Acute pain of left shoulder- Primary [facility] Diagnosis Persistent cough Cough Suspected COVID-19 virus infection documented in this encounter [facility] for referral (narrative)* Diagnostic Procedure Only (Routine) - Pending Review Specialty Diagnoses / Procedures Referred By Xi manning Referred To Contact [facility] Diagnoses Encounter for screening mammogram for breast cancer Procedures ANALIA SCREENING SCREENING MAMMOGRAPHY BI 2-VIEW [place] [address] [place] [address] [facility] [address] [place] [id number] Referral ID Status Reason Start Date Expiration Date Visits Requested Visits Authorized [id number] Pending Review Auto-Generat ed Referral 01/20/2022 02/19/2023 1 1 [facility] for referral (narrative)* Outpatient Procedure (Routine) - Pending Review Specialty Diagnoses / Procedures Referred By Xi manning Referred To Contact [facility] Diagnoses Persistent cough Tobacco use Procedures LUNG VOLUMES Prudencio Pedro MD [address] [place] [address] [facility] [place] [address] [place] [address] Referral ID Status Reason Start Date Expiration Date Visits Requested Visits Authorized [id number] Pending Review Auto-Generat ed Referral 02/18/2022 03/20/2023 1 1 * Outpatient Procedure (Routine) - Authorized Specialty Diagnoses / Procedures Referred By Xi manning Referred To [facility] Diagnoses Persistent cough Tobacco use Procedures SPIROMETRY - BASELINE AND POST DILATOR BRNCDILAT RSPSE SPMTRY PRE&POST-BR[place]CDIL[place] [address] [place] [address] [facility] [place] [address] [address] Referral ID Status Reason Start Date Expiration Date Visits Requested Visits Authorized [id number] Authorized Auto-Generat ed Referral 02/18/2022 03/20/2023 1 1 [facility] for referral (narrative)* Diagnostic Procedure Only (Routine) - Pending Review Specialty Diagnoses / Procedures [facility]erred To [facility] Diagnoses Fatigue, unspecified type Daytime somnolence Procedures HOME SLEEP APNEA TEST (HSAT) SLEEP STD AIRFLOW HRT RATE&O2 SAT EFFORT UNATT Diamond Bright APRN.CNP [address] [place] [address] [address] Referral ID Status Reason Start Date Expiration Date Visits Requested Visits Authorized [id number] Pending Review Auto-Generat ed Referral 08/02/2022 08/02/2023 1 1 [facility] for referral (narrative)* Outpatient Procedure (Routine) - Pending Review Specialty Diagnoses / Procedures Referred By [facility] Referred To Contact [facility] Diagnoses Chronic obstructive pulmonary disease, unspecified COPD type (HCC) Procedures SPIROMETRY WITH DILATOR IF OBSTRUCTED BRNCDILAT RSPSE SPMTRY PRE&POST-BRNCDILAT Judith Saleh MD [address] [place] [address] Respiratory [place] [address] [place], [place] [id number] Referral ID Status Reason Start Date Expiration Date Visits Requested Visits Authorized [id number] Pending Review Auto-Generat ed Referral 08/27/2022 09/25/2023 1 1 [facility] for referral (narrative)* Diagnostic Procedure Only (Routine) - Pending Review Specialty Diagnoses / Procedures Referred By [facility] Referred To Contact BR IMAGING Diagnoses Abnormal mammogram Procedures US BREAST LTD RIGHT US BREAST UNI REAL TIME WITH IMAGE LIMITED Prudencio Pedro MD [address] [place] [address] [facility] Imaging [address] [place] [address] Referral ID Status Reason Start Date Expiration Date Visits Requested Visits Authorized [id number] Pending Review Auto-Generat ed Referral 04/20/2023 11/18/2023 1 1 * Diagnostic Procedure Only (Routine) - Authorized Specialty Diagnoses / Procedures Referred By Contac t Referred To Contact BR IMAGING Diagnoses Abnormal mammogram Procedures ANALIA DIAGNOSTIC RIGHT DIAGNOSTIC MAMMOGRAPHY COMPUTER-AIDED DETCJ Prudencio Campoverde MD [address] [place] [address] [facility] [address] [place] [address] Referral ID Status Reason Start Date Expiration Date Visits Requested Visits Authorized [id number] Authorized Auto-Generat ed Referral 04/20/2023 11/18/2023 1 1 [facility] for referral (narrative)* Outpatient Procedure (Routine) - Authorized Specialty Diagnoses / Procedures [facility] Diagnoses Centrilobular emphysema (HCC) Procedures SPIROMETRY WITH DILATOR IF OBSTRUCTED BRNCDILAT RSPSE SPMTRY PRE&POST-BRNCDILAT Judith Saleh MD [address] [place] [address] Respiratory [place] [address] [place] [address] Referral ID Status Reason Start Date Expiration Date Visits Requested Visits Authorized [id number] Authorized Auto-Generat ed Referral 03/14/2023 04/12/2024 1 1 [facility] for referral (narrative)* Diagnostic Procedure Only (Routine) - Authorized Specialty Diagnoses / Procedures Referred By Contac t Referred To Contact BR IMAGING Diagnoses Abnormal mammogram Procedures ANALIA DIAGNOSTIC RIGHT DIAGNOSTIC MAMMOGRAPHY COMPUTER-AIDED [place] [address] [place] [address] [facility] [address] [place] [address] Referral ID Status Reason Start Date Expiration Date Visits Requested Visits Authorized [id number] Authorized Auto-Generat ed Referral 05/18/2023 06/16/2024 1 1 * Diagnostic Procedure Only (Routine) - Pending Review Specialty Diagnoses / Procedures Referred By Contac t Referred To Contact BR IMAGING Diagnoses Abnormal mammogram Procedures US BREAST LTD RIGHT US BREAST UNI REAL TIME WITH IMAGE LIMITED Prudencio Pedro MD [address] [place] [address] [facility] [address] [place] [address] Referral ID Status Reason Start Date Expiration Date Visits Requested Visits Authorized [id number] Pending Review Auto-Generat ed Referral 05/18/2023 06/16/2024 1 1 [facility] for referral (narrative)* Diagnostic Procedure Only (Routine) - Closed Specialty Diagnoses / Procedures [facility] Referred To Contact XR IMAGING Diagnoses Pain in left wrist Procedures XR WRIST GENERAL 3V PA/LAT/OBL LEFT RADEX WRIST COMPLETE MINIMUM 3 VIEWS Bruce Hugo MD [address] [facility] [place] [address] [place] [address] Referral ID Status Reason Start Date Expiration Date V isits Requested Visits Authorized [id number] Closed Auto-Generate d Referral 05/04/2023 06/02/2024 1 1 [facility] for referral (narrative)* Diagnostic Procedure Only (Routine) - Closed Specialty Diagnoses / Procedures Referred By Contac t Referred To Contact BR IMAGING Diagnoses Abnormal mammogram Procedures US BREAST LTD RT US BREAST UNI REAL TIME WITH IMAGE LIMITED Prudencio Pedro MD [address] [place] [address] [facility] Imaging [address] [place] [address] Referral ID Status Reason Start Date Expiration Date V isits Requested Visits Authorized [id number] Closed Auto-Generate d Referral 09/15/2022 10/15/2023 1 1 [facility] for referral (narrative)* Diagnostic Procedure Only (Routine) - Closed Specialty Diagnoses / Procedures Referred By Mireyaac t Referred To Contact BR IMAGING Diagnoses Encounter for screening mammogram for breast cancer Procedures ANALIA SCREENING SCREENING MAMMOGRAPHY BI 2-VIEW BREAST INC CAD Prudencio Pedro MD [address] [place] [address] Br Imaging [address] [place] [address] Referral ID Status Reason Start Date Expiration Date V isits Requested Visits Authorized [id number] Closed Auto-Generate d Referral 01/20/2022 02/19/2023 1 1 [facility] for referral (narrative)* Diagnostic Procedure Only (Routine) - Closed Specialty Diagnoses / Procedures Referred By Xi manning Referred To Contact BR IMAGING Diagnoses Abnormal mammogram Procedures US BREAST LTD RIGHT US BREAST UNI REAL TIME WITH IMAGE LIMITED Prudencio Pedro MD [address] [place] [address] [facility] Imaging [address] [place] [address] Referral ID Status Reason Start Date Expiration Date V isits Requested Visits Authorized [id number] Closed Auto-Generate d Referral 04/20/2023 11/18/2023 1 1 T [facility] for visit Narrative* Diagnostic Procedure Only (Routine) - Closed Specialty Diagnoses / Procedures Referred By Xi manning Referred To Contact XR IMAGING Diagnoses Pain in left wrist Procedures XR WRIST GENERAL 3V PA/LAT/OBL LEFT RADEX WRIST COMPLETE MINIMUM 3 VIEWS Bruce Hugo MD [address] [place] [address] [place] [address] Referral ID Status Reason Start Date Expiration Date V isits Requested Visits Authorized [id number] Closed Auto-Generate d Referral 05/04/2023 06/02/2024 1 1 [facility] for visit Narrative* Diagnostic Procedure Only (Routine) - Closed Specialty Diagnoses / Procedures Referred By Xi t Referred To Contact BR IMAGING Diagnoses Encounter for screening mammogram for breast cancer Procedures ANALIA SCREENING SCREENING MAMMOGRAPHY BI 2-VIEW BREAST INC CAD Prudencio Pedro MD [address] [place] [address] [facility] Imaging [address] [address] Referral ID Status Reason Start Date Expiration Date V isits Requested Visits Authorized [id number] Closed Auto-Generate d Referral 01/20/2022 02/19/2023 1 1 [facility] for visit Narrative* Diagnostic Procedure Only (Routine) - Closed Specialty Diagnoses / Procedures Referred By Xi t Referred To Contact BR IMAGING Diagnoses Abnormal mammogram Procedures ANALIA DIAGNOSTIC RIGHT DIAGNOSTIC MAMMOGRAPHY COMPUTER-AIDED DETCJ Prudencio Campoverde MD [address] [place] [address] [facility] Imaging [address] [address] Referral ID Status Reason Start Date Expiration Date V isits Requested Visits Authorized [id number] Closed Auto-Generate d Referral 04/20/2023 11/18/2023 1 1 [facility] for visit Narrative* Diagnostic Procedure Only (Routine) - Closed Specialty Diagnoses / Procedures Referred By Xi t Referred To Contact BR IMAGING Diagnoses Abnormal mammogram Procedures ANALIA DIAGNOSTIC RT DIAGNOSTIC MAMMOGRAPHY COMPUTER-AIDED DETCJ Prudencio Campoverde MD [address] [place] [address] [facility] Imaging [address] [address] Referral ID Status Reason Start Date Expiration Date V isits Requested Visits Authorized [id number] Closed Auto-Generate d Referral 09/15/2022 10/15/2023 1 1 [facility] Reason for Referral Specialty Diagnoses / Procedures Referred By Contac t Referred To Contact Diagnoses Acute cough Podlogar, Diamond, FLAT CUTTER.FLAT BREAKDOWN PROCESSOR [address] [place] [address] Referral ID Status Reason Start Date Expiration Date Visits Re quested Visits Authorized [id number] Closed 1 1 Specialty Diagnoses / Procedures Referred By Contac t Referred To Contact Orthopedics Diagnoses Acute pain of left shoulder Procedures CONSULT TO ORTHOPAEDICS OFFICE/OUTPATIENT NEW HIGH MDM 60-74 MINUTES [facility] [address] [place] [address] Referral ID Status Reason Start Date Expiration Date Visits Requested Visits Authorized [id number] Authorized PCP Requested Referral 06/12/2024 1 1 Specialty Diagnoses / Procedures Referred By Contac t Referred To Contact XR IMAGING Diagnoses Acute pain of left shoulder Procedures XR SHOULDER GENERAL 3V OR MORE AP/TRUE AP/OTHER LEFT RADEX SHOULDER COMPLETE MINIMUM 2 VIEWS [facility] [address] [place] [address] [place] [address] Referral ID Status Reason Start Date Expiration Date V isits Requested Visits Authorized [id number] Closed Auto-Generate d Referral 06/13/2023 07/12/2024 1 1 Health Concerns Infection Onset Date Last Indicated Resolved Time COVID-19 Confirmed 04/09/2022 04/09/2022 Infection Onset Date Last Indicated Resolved Time COVID-19 Rule-Out 09/07/2022 09/07/2022 Infection Onset Date Last Indicated Resolved Time COVID-19 Rule-Out 09/07/2022 09/07/2022 09/07/2022 11:36 PM EST Infection Onset Date Last Indicated Resolved Time COVID-19 Rule-Out 01/04/2023 01/04/2023 01/05/2023 12:41 AM EDT Infection Onset Date Last Indicated Resolved Time COVID-19 Rule-Out 03/30/2023 03/30/2023 03/31/2023 1:33 AM EDT Summary Purpose Family History No Family History Records Found Advance Directives No Advanced Directives Records Found Additional Source Comments Source Comments (unrecognize d section and content) In the event this informatio n is protected by the Federal Confidentiality of Alcohol and Drug Abuse Patient Records regulations: The Federal rules restrict any use of the information to criminally investigate or prosecute any alcohol or drug abuse patient.[facility] the event this information is protected by the Federal Confidentiality of Alcohol and Drug Abuse Patient Records regulations: The Federal rules restrict any use of the information to criminally investigate or prosecute any alcohol or drug abuse patient.[facility]ima[facility] the event this information is protected by the Federal Confidentiality of Alcohol and Drug Abuse Patient Records regulations: The Federal rules restrict any use of the information to criminally investigate or prosecute any alcohol or drug abuse patient.[facility] the event this information is protected by the Federal Confidentiality of Alcohol and Drug Abuse Patient Records regulations: The Federal rules restrict any use of the information to criminally investigate or prosecute any alcohol or drug abuse patient.[facility]ima[facility] the event this information is protected by the Federal Confidentiality of Alcohol and Drug Abuse Patient Records regulations: The Federal rules restrict any use of the information to criminally investigate or prosecute any alcohol or drug abuse patient.[facility] the event this information is protected by the Federal Confidentiality of Alcohol and Drug Abuse Patient Records regulations: The Federal rules restrict any use of the information to criminally investigate or prosecute any alcohol or drug abuse patient.[facility]imaIn the event this information is protected by the Federal Confidentiality of Alcohol and Drug Abuse Patient Records regulations: The Federal rules restrict any use of the information to criminally investigate or prosecute any alcohol or drug abuse patient.[facility]imaIn the event this information is protected by the Federal Confidentiality of Alcohol and Drug Abuse Patient Records regulations: The Federal rules restrict any use of the information to criminally investigate or prosecute any alcohol or drug abuse patient.[facility]imaIn the event this information is protected by the Federal Confidentiality of Alcohol and Drug Abuse Patient Records regulations: The Federal rules restrict any use of the information to criminally investigate or prosecute any alcohol or drug abuse patient.[facility]imaIn the event this information is protected by the Federal Confidentiality of Alcohol and Drug Abuse Patient Records regulations: The Federal rules restrict any use of the information to criminally investigate or prosecute any alcohol or drug abuse patient.[facility]ima[facility] the event this information is protected by the Federal Confidentiality of Alcohol and Drug Abuse Patient Records regulations: The Federal rules restrict any use of the information to criminally investigate or prosecute any alcohol or drug abuse patient.[facility]ima[facility] the event this information is protected by the Federal Confidentiality of Alcohol and Drug Abuse Patient Records regulations: The Federal rules restrict any use of the information to criminally investigate or prosecute any alcohol or drug abuse patient.[facility]imaIn the event this information is protected by the Federal Confidentiality of Alcohol and Drug Abuse Patient Records regulations: The Federal rules restrict any use of the information to criminally investigate or prosecute any alcohol or drug abuse patient.[facility]imaIn the event this information is protected by the Federal Confidentiality of Alcohol and Drug Abuse Patient Records regulations: The Federal rules restrict any use of the information to criminally investigate or prosecute any alcohol or drug abuse patient.[facility]imaIn the event this information is protected by the Federal Confidentiality of Alcohol and Drug Abuse Patient Records regulations: The Federal rules restrict any use of the information to criminally investigate or prosecute any alcohol or drug abuse patient.[facility]imaIn the event this information is protected by the Federal Confidentiality of Alcohol and Drug Abuse Patient Records regulations: The Federal rules restrict any use of the information to criminally investigate or prosecute any alcohol or drug abuse patient.[facility]imaIn the event this information is protected by the Federal Confidentiality of Alcohol and Drug Abuse Patient Records regulations: The Federal rules restrict any use of the information to criminally investigate or prosecute any alcohol or drug abuse patient.[facility]imaIn the event this information is protected by the Federal Confidentiality of Alcohol and Drug Abuse Patient Records regulations: The Federal rules restrict any use of the information to criminally investigate or prosecute any alcohol or drug abuse patient.[facility]imaIn the event this information is protected by the Federal Confidentiality of Alcohol and Drug Abuse Patient Records regulations: The Federal rules restrict any use of the information to criminally investigate or prosecute any alcohol or drug abuse patient.[facility]imaIn the event this information is protected by the Federal Confidentiality of Alcohol and Drug Abuse Patient Records regulations: The Federal rules restrict any use of the information to criminally investigate or prosecute any alcohol or drug abuse patient.[facility]imaIn the event this information is protected by the Federal Confidentiality of Alcohol and Drug Abuse Patient Records regulations: The Federal rules restrict any use of the information to criminally investigate or prosecute any alcohol or drug abuse patient.[facility]imaIn the event this information is protected by the Federal Confidentiality of Alcohol and Drug Abuse Patient Records regulations: The Federal rules restrict any use of the information to criminally investigate or prosecute any alcohol or drug abuse patient.[facility]imaIn the event this information is protected by the Federal Confidentiality of Alcohol and Drug Abuse Patient Records regulations: The Federal rules restrict any use of the information to criminally investigate or prosecute any alcohol or drug abuse patient.[facility]imaIn the event this information is protected by the Federal Confidentiality of Alcohol and Drug Abuse Patient Records regulations: The Federal rules restrict any use of the information to criminally investigate or prosecute any alcohol or drug abuse patient.[facility]imaIn the event this information is protected by the Federal Confidentiality of Alcohol and Drug Abuse Patient Records regulations: The Federal rules restrict any use of the information to criminally investigate or prosecute any alcohol or drug abuse patient.[facility]imaIn the event this information is protected by the Federal Confidentiality of Alcohol and Drug Abuse Patient Records regulations: The Federal rules restrict any use of the information to criminally investigate or prosecute any alcohol or drug abuse patient.[facility]imaIn the event this information is protected by the Federal Confidentiality of Alcohol and Drug Abuse Patient Records regulations: The Federal rules restrict any use of the information to criminally investigate or prosecute any alcohol or drug abuse patient.[facility]imaIn the event this information is protected by the Federal Confidentiality of Alcohol and Drug Abuse Patient Records regulations: The Federal rules restrict any use of the information to criminally investigate or prosecute any alcohol or drug abuse patient.[facility]imaIn the event this information is protected by the Federal Confidentiality of Alcohol and Drug Abuse Patient Records regulations: The Federal rules restrict any use of the information to criminally investigate or prosecute any alcohol or drug abuse patient.[facility]imaIn the event this information is protected by the Federal Confidentiality of Alcohol and Drug Abuse Patient Records regulations: The Federal rules restrict any use of the information to criminally investigate or prosecute any alcohol or drug abuse patient.[facility]imaIn the event this information is protected by the Federal Confidentiality of Alcohol and Drug Abuse Patient Records regulations: The Federal rules restrict any use of the information to criminally investigate or prosecute any alcohol or drug abuse patient.[facility]In the event this information is protected by the Federal Confidentiality of Alcohol and Drug Abuse Patient Records regulations: The Federal rules restrict any use of the information to criminally investigate or prosecute any alcohol or drug abuse patient.[facility]imaIn the event this information is protected by the Federal Confidentiality of Alcohol and Drug Abuse Patient Records regulations: The Federal rules restrict any use of the information to criminally investigate or prosecute any alcohol or drug abuse patient.[facility]imaIn the event this information is protected by the Federal Confidentiality of Alcohol and Drug Abuse Patient Records regulations: The Federal rules restrict any use of the information to criminally investigate or prosecute any alcohol or drug abuse patient.[facility]imaIn the event this information is protected by the Federal Confidentiality of Alcohol and Drug Abuse Patient Records regulations: The Federal rules restrict any use of the information to criminally investigate or prosecute any alcohol or drug abuse patient.[facility]imaIn the event this information is protected by the Federal Confidentiality of Alcohol and Drug Abuse Patient Records regulations: The Federal rules restrict any use of the information to criminally investigate or prosecute any alcohol or drug abuse patient.[facility]imaIn the event this information is protected by the Federal Confidentiality of Alcohol and Drug Abuse Patient Records regulations: The Federal rules restrict any use of the information to criminally investigate or prosecute any alcohol or drug abuse patient.[facility]imaIn the event this information is protected by the Federal Confidentiality of Alcohol and Drug Abuse Patient Records regulations: The Federal rules restrict any use of the information to criminally investigate or prosecute any alcohol or drug abuse patient.[facility]imaIn the event this information is protected by the Federal Confidentiality of Alcohol and Drug Abuse Patient Records regulations: The Federal rules restrict any use of the information to criminally investigate or prosecute any alcohol or drug abuse patient.[facility]imaIn the event this information is protected by the Federal Confidentiality of Alcohol and Drug Abuse Patient Records regulations: The Federal rules restrict any use of the information to criminally investigate or prosecute any alcohol or drug abuse patient.[facility]imaIn the event this information is protected by the Federal Confidentiality of Alcohol and Drug Abuse Patient Records regulations: The Federal rules restrict any use of the information to criminally investigate or prosecute any alcohol or drug abuse patient.[facility]imaIn the event this information is protected by the Federal Confidentiality of Alcohol and Drug Abuse Patient Records regulations: The Federal rules restrict any use of the information to criminally investigate or prosecute any alcohol or drug abuse patient.[facility]imaIn the event this information is protected by the Federal Confidentiality of Alcohol and Drug Abuse Patient Records regulations: The Federal rules restrict any use of the information to criminally investigate or prosecute any alcohol or drug abuse patient.[facility]imaIn the event this information is protected by the Federal Confidentiality of Alcohol and Drug Abuse Patient Records regulations: The Federal rules restrict any use of the information to criminally investigate or prosecute any alcohol or drug abuse patient.[facility]imaIn the event this information is protected by the Federal Confidentiality of Alcohol and Drug Abuse Patient Records regulations: The Federal rules restrict any use of the information to criminally investigate or prosecute any alcohol or drug abuse patient.[facility]imaIn the event this information is protected by the Federal Confidentiality of Alcohol and Drug Abuse Patient Records regulations: The Federal rules restrict any use of the information to criminally investigate or prosecute any alcohol or drug abuse patient.[facility]imaIn the event this information is protected by the Federal Confidentiality of Alcohol and Drug Abuse Patient Records regulations: The Federal rules restrict any use of the information to criminally investigate or prosecute any alcohol or drug abuse patient.[facility]imaIn the event this information is protected by the Federal Confidentiality of Alcohol and Drug Abuse Patient Records regulations: The Federal rules restrict any use of the information to criminally investigate or prosecute any alcohol or drug abuse patient.[facility]imaIn the event this information is protected by the Federal Confidentiality of Alcohol and Drug Abuse Patient Records regulations: The Federal rules restrict any use of the information to criminally investigate or prosecute any alcohol or drug abuse patient.[facility]imaIn the event this information is protected by the Federal Confidentiality of Alcohol and Drug Abuse Patient Records regulations: The Federal rules restrict any use of the information to criminally investigate or prosecute any alcohol or drug abuse patient.[facility]imaIn the event this information is protected by the Federal Confidentiality of Alcohol and Drug Abuse Patient Records regulations: The Federal rules restrict any use of the information to criminally investigate or prosecute any alcohol or drug abuse patient.[facility]imaIn the event this information is protected by the Federal Confidentiality of Alcohol and Drug Abuse Patient Records regulations: The Federal rules restrict any use of the information to criminally investigate or prosecute any alcohol or drug abuse patient.[facility]imaIn the event this information is protected by the Federal Confidentiality of Alcohol and Drug Abuse Patient Records regulations: The Federal rules restrict any use of the information to criminally investigate or prosecute any alcohol or drug abuse patient.[facility]imaIn the event this information is protected by the Federal Confidentiality of Alcohol and Drug Abuse Patient Records regulations: The Federal rules restrict any use of the information to criminally investigate or prosecute any alcohol or drug abuse patient.[facility]imaIn the event this information is protected by the Federal Confidentiality of Alcohol and Drug Abuse Patient Records regulations: The Federal rules restrict any use of the information to criminally investigate or prosecute any alcohol or drug abuse patient.[facility]imaIn the event this information is protected by the Federal Confidentiality of Alcohol and Drug Abuse Patient Records regulations: The Federal rules restrict any use of the information to criminally investigate or prosecute any alcohol or drug abuse patient.[facility]imaIn the event this information is protected by the Federal Confidentiality of Alcohol and Drug Abuse Patient Records regulations: The Federal rules restrict any use of the information to criminally investigate or prosecute any alcohol or drug abuse patient.[facility]imaIn the event this information is protected by the Federal Confidentiality of Alcohol and Drug Abuse Patient Records regulations: The Federal rules restrict any use of the information to criminally investigate or prosecute any alcohol or drug abuse patient.[facility]imaIn the event this information is protected by the Federal Confidentiality of Alcohol and Drug Abuse Patient Records regulations: The Federal rules restrict any use of the information to criminally investigate or prosecute any alcohol or drug abuse patient.[facility]imaIn the event this information is protected by the Federal Confidentiality of Alcohol and Drug Abuse Patient Records regulations: The Federal rules restrict any use of the information to criminally investigate or prosecute any alcohol or drug abuse patient.[facility]imaIn the event this information is protected by the Federal Confidentiality of Alcohol and Drug Abuse Patient Records regulations: The Federal rules restrict any use of the information to criminally investigate or prosecute any alcohol or drug abuse patient.[facility]imaIn the event this information is protected by the Federal Confidentiality of Alcohol and Drug Abuse Patient Records regulations: The Federal rules restrict any use of the information to criminally investigate or prosecute any alcohol or drug abuse patient.[facility]imaIn the event this information is protected by the Federal Confidentiality of Alcohol and Drug Abuse Patient Records regulations: The Federal rules restrict any use of the information to criminally investigate or prosecute any alcohol or drug abuse patient.[facility]imaIn the event this information is protected by the Federal Confidentiality of Alcohol and Drug Abuse Patient Records regulations: The Federal rules restrict any use of the information to criminally investigate or prosecute any alcohol or drug abuse patient.[facility]imaIn the event this information is protected by the Federal Confidentiality of Alcohol and Drug Abuse Patient Records regulations: The Federal rules restrict any use of the information to criminally investigate or prosecute any alcohol or drug abuse patient.[facility]imaIn the event this information is protected by the Federal Confidentiality of Alcohol and Drug Abuse Patient Records regulations: The Federal rules restrict any use of the information to criminally investigate or prosecute any alcohol or drug abuse patient.[facility]imaIn the event this information is protected by the Federal Confidentiality of Alcohol and Drug Abuse Patient Records regulations: The Federal rules restrict any use of the information to criminally investigate or prosecute any alcohol or drug abuse patient.[facility]imaIn the event this information is protected by the Federal Confidentiality of Alcohol and Drug Abuse Patient Records regulations: The Federal rules restrict any use of the information to criminally investigate or prosecute any alcohol or drug abuse patient.[facility]imaIn the event this information is protected by the Federal Confidentiality of Alcohol and Drug Abuse Patient Records regulations: The Federal rules restrict any use of the information to criminally investigate or prosecute any alcohol or drug abuse patient.[facility]imaIn the event this information is protected by the Federal Confidentiality of Alcohol and Drug Abuse Patient Records regulations: The Federal rules restrict any use of the information to criminally investigate or prosecute any alcohol or drug abuse patient.[facility]imaIn the event this information is protected by the Federal Confidentiality of Alcohol and Drug Abuse Patient Records regulations: The Federal rules restrict any use of the information to criminally investigate or prosecute any alcohol or drug abuse patient.[facility]imaIn the event this information is protected by the Federal Confidentiality of Alcohol and Drug Abuse Patient Records regulations: The Federal rules restrict any use of the information to criminally investigate or prosecute any alcohol or drug abuse patient.[facility]imaIn the event this information is protected by the Federal Confidentiality of Alcohol and Drug Abuse Patient Records regulations: The Federal rules restrict any use of the information to criminally investigate or prosecute any alcohol or drug abuse patient.[facility]imaIn the event this information is protected by the Federal Confidentiality of Alcohol and Drug Abuse Patient Records regulations: The Federal rules restrict any use of the information to criminally investigate or prosecute any alcohol or drug abuse patient.[facility]imaIn the event this information is protected by the Federal Confidentiality of Alcohol and Drug Abuse Patient Records regulations: The Federal rules restrict any use of the information to criminally investigate or prosecute any alcohol or drug abuse patient.[facility]imaIn the event this information is protected by the Federal Confidentiality of Alcohol and Drug Abuse Patient Records regulations: The Federal rules restrict any use of the information to criminally investigate or prosecute any alcohol or drug abuse patient.[facility]imaIn the event this information is protected by the Federal Confidentiality of Alcohol and Drug Abuse Patient Records regulations: The Federal rules restrict any use of the information to criminally investigate or prosecute any alcohol or drug abuse patient.[facility]imaIn the event this information is protected by the Federal Confidentiality of Alcohol and Drug Abuse Patient Records regulations: The Federal rules restrict any use of the information to criminally investigate or prosecute any alcohol or drug abuse patient.[facility]imaIn the event this information is protected by the Federal Confidentiality of Alcohol and Drug Abuse Patient Records regulations: The Federal rules restrict any use of the information to criminally investigate or prosecute any alcohol or drug abuse patient.[facility]imaIn the event this information is protected by the Federal Confidentiality of Alcohol and Drug Abuse Patient Records regulations: The Federal rules restrict any use of the information to criminally investigate or prosecute any alcohol or drug abuse patient.[facility] Care Teams (unrecognized sec tion and content) Design Engineer [employer] Equipment Relationship Specialty Start Date End Date Prudencio Pedro MD [address] [place], [place] [id number] PCP - General Family Practice 05/10/19 Design Engineer Agricultural Equipment Relationship Specialty Start Date End Date Prudencio Pedro MD [address], [place] [id number] PCP - General Family Practice 05/10/19 Design Engineer Agricultural Equipment Relationship Specialty Start Date End Date Prudencio Pedro MD [address] [place] [address] PCP - General Family Practice 05/10/19 Design Engineer Agricultural Equipment Relationship Specialty Start Date End Date Prudencio Pedro MD [address] [place] [address] PCP - General Family Practice 05/10/19 Design Engineer Agricultural Equipment Relationship Specialty Start Date End Date Prudencio Pedro MD [address] [place] [address] PCP - General Family Medicine 05/10/19 Design Engineer Agricultural Equipment Relationship Specialty Start Date End Date Prudencio Pedro MD [address] [place] [address] PCP - General Family Medicine 05/10/19 Design Engineer Agricultural Equipment Relationship Specialty Start Date End Date Prudencio Pedro MD [address] [place] [address] PCP - General Family Medicine 05/10/19 Design Engineer Agricultural Equipment Relationship Specialty Start Date End Date Prudencio Pedro MD [address] [place] [address] PCP - General Family Medicine 05/10/19 Design Engineer Agricultural Equipment Relationship Specialty Start Date End Date Prudencio Pedro MD [address] [place] [address] PCP - General Family Medicine 05/10/19 Design Engineer Agricultural Equipment Relationship Specialty Start Date End Date Prudencio Pedro MD [address] [place] [address] PCP - General Family Medicine 05/10/19 Design Engineer Agricultural Equipment Relationship Specialty Start Date End Date Prudencio Pedro MD [address] [place] [address] PCP - General Family Medicine 05/10/19 Design Engineer Agricultural Equipment Relationship Specialty Start Date End Date Prudencio Pedro MD [address] [place] [address] PCP - General Family Medicine 05/10/19 Design Engineer Agricultural Equipment Relationship Specialty Start Date End Date Prudencio Pedro MD [address] [place] [address] PCP - General Family Medicine 05/10/19 Design Engineer Agricultural Equipment Relationship Specialty Start Date End Date Prudencio Pedro MD [address] [place] [address] PCP - General Family Medicine 05/10/19 Design Engineer Agricultural Equipment Relationship Specialty Start Date End Date Prudencio Pedro MD [address] [place] [address] PCP - General Family Medicine 05/10/19 Design Engineer Agricultural Equipment Relationship Specialty Start Date End Date Prudencio Pedro MD [address] [place] [address] PCP - General Family Medicine 05/10/19 Design Engineer Agricultural Equipment Relationship Specialty Start Date End Date Prudencio Pedro MD [address] [place] [address] PCP - General Family Medicine 05/10/19 Design Engineer Agricultural Equipment Relationship Specialty Start Date End Date Prudencio Pedro MD [address] [place] [address] PCP - General Family Medicine 05/10/19 Design Engineer Agricultural Equipment Relationship Specialty Start Date End Date Prudencio Pedro MD [address] [place] [address] PCP - General Family Medicine 05/10/19 Design Engineer Agricultural Equipment Relationship Specialty Start Date End Date Prudencio Pedro MD [address] [place] [address] PCP - General Family Medicine 05/10/19 Design Engineer Agricultural Equipment Relationship Specialty Start Date End Date Prudencio Pedro MD [address] [place] [address] PCP - General Family Medicine 05/10/19 Design Engineer Agricultural Equipment Relationship Specialty Start Date End Date Prudencio Pedro MD [address] [place] [address] PCP - General Family Medicine 05/10/19 Design Engineer Agricultural Equipment Relationship Specialty Start Date End Date Prudencio Pedro MD [address] [place] [address], [place] [address] PCP - General Family Medicine 05/10/19 Design Engineer Agricultural Equipment Relationship Specialty Start Date End Date Prudencio Pedro MD [facility] [place] [address] PCP - General Family Medicine 05/10/19 Design Engineer Agricultural Equipment Relationship Specialty Start Date End Date Prudencio Pedro MD [facility] [place] [address] PCP - General Family Medicine 05/10/19 Design Engineer Agricultural Equipment Relationship Specialty Start Date End Date Prudencio Pedro MD [facility] [place] [address] PCP - General Family Medicine 05/10/19 Design Engineer Agricultural Equipment Relationship Specialty Start Date End Date Prudencio Pedro MD [facility] [place] [address] PCP - General Family Medicine 05/10/19 Design Engineer Agricultural Equipment Relationship Specialty Start Date End Date Prudencio Pedro MD [facility] [place] [address] PCP - General Family Medicine 05/10/19 Design Engineer Agricultural Equipment Relationship Specialty Start Date End Date Prudencio Pedro MD [address] [place] [address] PCP - General Family Medicine 05/10/19 Design Engineer Agricultural Equipment Relationship Specialty Start Date End Date Prudencio Pedro MD [address] [place] [address] PCP - General Family Medicine 05/10/19 Design Engineer Agricultural Equipment Relationship Specialty Start Date End Date Prudencio Pedro MD [address] [place] [address] PCP - General Family Medicine 05/10/19 Design Engineer Agricultural Equipment Relationship Specialty Start Date End Date Prudencio Pedro MD [address] [place] [address] PCP - General Family Medicine 05/10/19 Design Engineer Agricultural Equipment Relationship Specialty Start Date End Date Prudencio Pedro MD [address] [place] [address] PCP - General Family Medicine 05/10/19 Design Engineer Agricultural Equipment Relationship Specialty Start Date End Date Prudencio Pedro MD [address] [place] [address] PCP - General Family Medicine 05/10/19 Design Engineer Agricultural Equipment Relationship Specialty Start Date End Date Prudencio Pedro MD [address] [place] [address] PCP - General Family Medicine 05/10/19 Design Engineer Agricultural Equipment Relationship Specialty Start Date End Date Prudencio Pedro MD [address] [place] [address] PCP - General Family Medicine 05/10/19 Design Engineer Agricultural Equipment Relationship Specialty Start Date End Date Prudencio Pedro MD [address] [place] [address] PCP - General Family Medicine 05/10/19 Design Engineer Agricultural Equipment Relationship Specialty Start Date End Date Prudencio Pedro MD [address] [place] [address] PCP - General Family Medicine 05/10/19 Design Engineer Agricultural Equipment Relationship Specialty Start Date End Date Prudencio Pedro MD [address] [place] [address] PCP - General Family Medicine 05/10/19 Design Engineer Agricultural Equipment Relationship Specialty Start Date End Date Prudencio Pedro MD [address] [place] [address] PCP - General Family Medicine 05/10/19 Design Engineer Agricultural Equipment Relationship Specialty Start Date End Date Prudencio Pedro MD [address] [place] [address] PCP - General Family Medicine 05/10/19 Design Engineer Agricultural Equipment Relationship Specialty Start Date End Date Prudencio Pedro MD [address] [place] [address] PCP - General Family Medicine 05/10/19 Design Engineer Agricultural Equipment Relationship Specialty Start Date End Date Prudencio Pedro MD [address] [place] [address] PCP - General Family Medicine 05/10/19 Design Engineer Agricultural Equipment Relationship Specialty Start Date End Date Prudencio Pedro MD [address] [place] [address] PCP - General Family Medicine 05/10/19 Design Engineer Agricultural Equipment Relationship Specialty Start Date End Date Prudencio Pedro MD [address] [address], [place] [address] PCP - General Family Medicine 05/10/19 Design Engineer Agricultural Equipment Relationship Specialty Start Date End Date Prudencio Pedro MD [address] [facility], [place] [address] PCP - General Family Medicine 05/10/19 Design Engineer Agricultural Equipment Relationship Specialty Start Date End Date Prudencio Pedro MD [address] [facility], [place] [address] PCP - General Family Medicine 05/10/19 Design Engineer Agricultural Equipment Relationship Specialty Start Date End Date Prudencio Pedro MD [address] [facility], [place] [address] PCP - General Family Medicine 05/10/19 Design Engineer Agricultural Equipment Relationship Specialty Start Date End Date Prudencio Pedro MD [address] [facility], [place] [address] PCP - General Family Medicine 05/10/19 Reason for Visit (unrecogniz ed section and content) Reason Comments Results Reason Comments Insurance Authorization Reason Comments Follow Up cough continues- med ication she was Given caused stomach pain Reason Comments Patient Question Reason Comments Medication Problem Reason Comments ER F/U [facility] on Mar 18 for bronchitis Reason Comments Allergies Reason Comments Patient Update Reason Comments Flu vaccine question Reason Comments Lab order request Reason Comments patient update on ENT apt FYI-No Action Needed Reason Comments UTI Flank and bladder pa in x 3 days- has some incontinence with cough and fatigue Reason Comments Mouth/Lip Problem Gum problem Reason Comments Cat Bite or scratch x 30 mins , right forearm Reason Comments Spirometry Specialty Diagnoses / Procedures Referred By Contac t Referred To Contact [facility] Diagnoses Persistent cough Tobacco use Procedures SPIROMETRY - BASELINE AND POST DILATOR BRNCDILAT RSPSE SPMTRY PRE&POST-BRNCDILAT ADMN Prudencio Pedro MD [address] [place] [address] [facility] [place] [address] [place] [id number] Referral ID Status Reason Start Date Expiration Date V isits Requested Visits Authorized [id number] Closed Auto-Generate d Referral 02/18/2022 03/20/2023 1 1 Reason Comments Lab Order Request Reason Comments Animal Bite Cat bite L forearm x last night Reason Comments Yearly Exam Reason Comments Patient Question Reason Comments Patient Request Reason Comments Vaginal Problem Reason Comments Animal Bite Cat bite last night to back of right knee Reason Onset Date Comments Results 08/25/2022 Reason Comments Smoking Cessation Trying to quit smoki ng. Currently smoking about 5 cigarettes a day Abrasion Cat scratch on upper right thigh Reason Comments Headache LUCIO, diarrhea and radha al congestion x 3 days Reason Comments Nicotine Dependence Reason Comments Breast Problem Reason Comments Animal Bite cat bite/scratches o n right arm x 1 day Reason Comments Animal Bite Pt reported cat bite (RT) leg denied pain, x2 days. Reason Onset Date Comments Refill Request 11/08/2022 Reason Comments Acute Visit Wants vitamin D chec ked Nicotine Dependence Wants to talk about smoking cessation Reason Comments Results Reason Comments Patient Question skin injury Reason Comments Vaginal Problem Possible BV x2.5 wee ks Reason Comments Refill Request Reason Comments Established Patient 6 month follow up em physema Reason Comments Nausea With diarrhea x5 day s Reason Comments Cough Reason Comments Radiology US Specialty Diagnoses / Procedures Referred By Xi t Referred To Contact [facility] Diagnoses Abnormal mammogram Procedures US BREAST LTD RT US BREAST UNI REAL TIME WITH IMAGE LIMITED Prudencio Pedro MD [address] [place] [address] [facility] [address] [place] [address] Referral ID Status Reason Start Date Expiration Date V isits Requested Visits Authorized [id number] Closed Auto-Generate d Referral 09/15/2022 10/15/2023 1 1 Specialty Diagnoses / Procedures Referred By Xi manning Referred To Contact [facility] Diagnoses Abnormal mammogram Procedures US BREAST LTD RIGHT US BREAST UNI REAL TIME WITH IMAGE LIMITED Prudencio Pedro MD [address] [place] [address] [facility] [address] [place] [address] Referral ID Status Reason Start Date Expiration Date V isits Requested Visits Authorized [id number] Closed Auto-Generate d Referral 04/20/2023 11/18/2023 1 1 Reason Comments New Fracture Specialty Diagnoses / Procedures Referred By Contac t Referred To Contact Orthopedics Diagnoses Closed fracture of left wrist, initial encounter Procedures CONSULT TO ORTHOPAEDICS OFFICE/OUTPATIENT NEW HIGH MDM 60-74 MINUTES Jacquelyn Lerma APRN.[employer] PROCESSOR [address] [place] [address] Bruce Hugo MD [address] [place] [address] Referral ID Status Reason Start Date Expiration Date V isits Requested Visits Authorized [id number] Closed PCP Requested Referral 04/18/2023 04/17/2024 1 1 Reason Onset Date Comments Refill Request 05/31/2023 Reason Comments Pain (Shoulder Pain) L shoulder pain x1 month Reason Onset Date Comments Refill Request 06/24/2023 Reason Onset Date Comments Refill Request 06/27/2023 INFORMATION SOURCE (unrecogn ized section and content) FOR RECORDS PERTAINING TO PATIENTS WHO ARE OR HAVE BEEN ENROLLED IN A CHEMICAL DEPENDENCY/SUBSTANCEABUSE PROGRAM, SOME INFORMATION MAY BE OMITTED. This clinical summary was aggregated from multiple sources. Caution should be exercised in using it in the provision of clinical care. This summary normalizes information from multiple sources, and as a consequence, information in this document may materially change the coding, format and clinical context of patient data. In addition, data may be omitted in some cases. CLINICAL DECISIONS SHOULD BE BASED ON THE PRIMARY CLINICAL RECORDS. [employer] provides no warranty or guarantee of the accuracy or completeness of information in this document.
[2023-08-25 14:09] LABS: Absolute CD4 Helper 950 /uL (359-1519); Basophils (Absolute) 0 x10E3/uL (0.0-0.2); Eosinophils 2 % (Not Estab.); Eosinophils (Absolute) 0.1 x10E3/uL (0.0-0.4); Hematocrit 44.3 % (34.0-46.6); Hemoglobin 14.6 g/dL (11.1-15.9); Immature Granulocytes 0 % (Not Estab.); Immature Granulocytes Absolute 0 x10E3/uL (0.0-0.1); Lymphs 31 % (Not Estab.); Lymphs (Absolute) 1.9 x10E3/uL (0.7-3.1); MCH 33.2 pg (26.6-33.0); MCV 101 fL (79-97); Monocytes 6 % (Not Estab.); Monocytes (Absolute) 0.4 x10E3/uL (0.1-0.9); Neutrophils 60 % (Not Estab.); Neutrophils (Absolute) 3.7 x10E3/uL (1.4-7.0); Platelets 211 x10E3/uL (150-450); RDW 11.9 % (11.7-15.4); WBC Count 6.2 x10E3/uL (3.4-10.8)
[2023-08-26 04:07] LABS: HIV-1 RNA by PCR, Quant. < 20 copies/mL (.)
== END | disposition home or self-care (01) ==
LOC: LAB 11:59
PROVIDERS: PCP Family Medicine; Referring Provider Internal Medicine Infectious Disease; Visit Provider Internal Medicine Infectious Disease
DX: B20 Human immunodeficiency virus [HIV] disease (principal)
CPT/HCPCS: 36415; 86361; 86780; 87491; 87536; 87591

== ENCOUNTER → 2023-08-30 | Outpatient (CLI) | payer MEDICAID, SELFPAY ==
--- NOTE | 2023-08-30 12:35 | CT_ITS ---
STUDY: LOW DOSE CT LUNG CANCER SCREENING REASON FOR EXAM: Female, 53 years old. Lung cancer screening -- and gt;20 pk yr hx;current smoker;asymptomatic RADIATION DOSAGE (If Supplied By Facility): CTDIvol = ( 2.01 ) mGy, DLP = ( 67.46 ) mGycm TECHNIQUE: No contrast was administered. Low dose technique was utilized (average mAS-38 and kVp 120). 1.25 mm axial source images with a slice interval of 1.25-mm were reconstructed in lung windows. 2.5 mm axial source images with a slice interval of 2.5-mm were reconstructed in lung windows. 5.0 mm axial source images with a slice interval of 5.0-mm were reconstructed in soft tissue windows. COMPARISON: Comparison is made with prior examination of August 24, 2022. NODULES: Stable 4.9 mm pleural-based nodule in the right upper lobe as seen on axial image #36. Emphysema: Hyperinflation. Emphysematous changes. This is more prominent in the upper lobes. Stable mild degree of linear scarring in the anterior aspect of the right middle lobe and medial segment of the left upper lobe Endobronchial lesion: None Aorta: Mild plaque formation of the aortic arch. CORONARY ARTERIES: Coronary artery calcification is not seen. Heart: Unremarkable Pulmonary artery: Unremarkable Mediastinal nodes: Unremarkable Other chest and abdominal findings: Bilateral breast implants. CT/Low Dose CT Lung Screening IMPRESSION: Lung-RADS category 2 - Continue annual screening with LDCT in 12 months. IMPORTANT NOTES FOR USE: ACR Lung-RADS Version 1.1 Assessment Categories Release Date: 2018 Category: Coded 0-4 bases on nodule(s) with highest degree of suspicion. Negative screen is defined as categories 1 and 2; a positive screen is defined as categories 3 and 4. Category 3 and 4A nodules that are unchanged on interval CT should be coded as category 2, and individuals returned to screening in 12 months. Category 4X: Category 3 or 4 nodules with additional imaging findings that increase the suspicion of lung cancer, such as spiculation, GGN that doubles in size in 1 year, enlarged lymph notes, etc. Category Modifiers: S (significant finding unrelated to lung cancer) Electronically Signed: Elier Meyer MD at 12:59 EST ,
== END | disposition home or self-care (01) ==
LOC: CT 12:33
PROVIDERS: PCP Family Medicine; Referring Provider Nurse Practitioner Family; Visit Provider Nurse Practitioner Family
DX: Z12.2 Encounter for screening for malignant neoplasm of respiratory organs (principal); Z87.891 Personal history of nicotine dependence
CPT/HCPCS: 71271

== ENCOUNTER 2024-02-03 22:13 | Emergency (ER) | payer OTHER, MEDICAID, SELFPAY ==
[2024-02-03 22:15] VITALS: BP 161/87; PULSE 80; RESP 20; TEMP 36.2; O2SAT 100; BMI 22.0
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
[2024-02-03] MEDS: HYDROmorphone 1 MG/ML Syringe IV (22:45)
[2024-02-03] MEDS: Ondansetron 4 MG/2 ML Vial IV (22:45)
[2024-02-03] MEDS: Silver Sulfadiazine 1% Crm 50 gm Bottle 1 APPLIC TOPICAL (23:03)
[2024-02-03 23:14] VITALS: BP 142/110
[2024-02-04 00:09] VITALS: BP 133/97; PULSE 80; RESP 18; TEMP 36.9; O2SAT 97
== END 2024-02-04 00:15 | disposition home or self-care (01) ==
LOC: ED 22:52
PROVIDERS: Emergency Provider Emergency Medicine; PCP Family Medicine; Visit Provider Emergency Medicine
DX: T25.211A Burn of second degree of right ankle, initial encounter (principal); B20 Human immunodeficiency virus [HIV] disease; T25.221A Burn of second degree of right foot, initial encounter; X12.XXXA Contact with other hot fluids, initial encounter; Y93.89 Activity, other specified; Y99.0 Civilian activity done for income or pay; Y92.511 Restaurant or cafe as the place of occurrence of the external cause; F17.210 Nicotine dependence, cigarettes, uncomplicated
CPT/HCPCS: 96374; 96375; 99282; J2405

== ENCOUNTER 2024-02-19 16:05 | Inpatient (IN) | payer OTHER, MEDICAID, SELFPAY ==
[2024-02-19 16:06] VITALS: BP 138/99; PULSE 96; PULSE 97; RESP 16; TEMP 35.5; TEMP 36.1; O2SAT 97; BMI 21.1
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
[2024-02-19 16:48] LABS: Absolute Neutrophil Count 4.4 X10^3/uL (2.0-7.7); Basophil# 0.05 X10^3/uL; Basophil% 0.7 % (0-1); Eosinophils% 1.4 % (0-5); Hematocrit 38.6 % (37-47); Hemoglobin 12.7 g/dL (12.0-15.0); Lymphocyte % 32.4 % (19-41); Mean Corp Hgb Conc 32.9 g/dL (32-36); Mean Corpuscular Hgb 33.3 pg (27.0-32.0); Mean Corpuscular Volume 101.3 fL (81-99); Mean Platelet Vol. 10.6 fl (6.2-12.0); Monocyte# 0.42 X10^3/uL; Monocyte% 5.7 % (0-10); NRBC Flagged by Analyzer 0 % (0-5); Neutrophil % 59.4 % (47-70); Platelet Count 275 K/mm3 (150-450); RBC Distribution Width CV 12.6 % (11.6-14.6); RBC Distribution Width SD 47.6 fl (35.1-43.9); Red Blood Count 3.81 M/mm3 (4.2-5.4); White Blood Count 7.4 K/mm3 (4.4-11.0)
[2024-02-19] MEDS: levoFLOXacin IV 750 MG/150 ML BAG 100 MG IV (16:57)
[2024-02-19] MEDS: 0.9% Normal Saline (1000mL) 1,000 ML 150 ML IV ×2 (16:57→22:24)
[2024-02-19 17:05] LABS: Anion Gap 4 (5-15); BUN 11 mg/dL (7-18); BUN/Creat Ratio 11.2 RATIO (10-20); Chloride 108 mmol/L (98-107); Creatinine, Serum 0.98 mg/dL (0.55-1.02); EST Glomerular Filtration Rate 62 mL/min (>60); Est Glom Filt Rate - Afr Amer 76 mL/min (>60); Estimated Creatinine Clearance 55.35 ml/min; Glucose 91 mg/dL (74-106); Potassium 3.5 mmol/L (3.5-5.1); Sodium Level 141 mmol/L (136-145)
[2024-02-19 17:06] VITALS: BP 132/94; PULSE 92; RESP 18; TEMP 36.3; O2SAT 98
[2024-02-19 17:08] LABS: Lactic Acid 0.7 mmol/L (0.4-1.9)
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
[2024-02-19 18:00] VITALS: BP 122/93; PULSE 81; RESP 16; TEMP 35.9; O2SAT 100
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
[2024-02-19 19:41] VITALS: BMI 20.7
[2024-02-19 19:45] VITALS: BP 144/100; PULSE 63; RESP 16; TEMP 36.6; O2SAT 100
[2024-02-19 20:00] VITALS: BP 144/100; PULSE 63; RESP 16; TEMP 36.6; O2SAT 100
[2024-02-19 22:21] VITALS: BP 113/87; PULSE 83; RESP 16; TEMP 36.9; O2SAT 100
[2024-02-19] MEDS: MELATONIN 3 MG TABLET PO (22:22)
[2024-02-19] MEDS: Acetaminophen 325 MG Tablet 650 MG PO (22:22)
[2024-02-20 03:36] VITALS: BP 104/68; PULSE 70; RESP 16; TEMP 36.8; O2SAT 95
[2024-02-20] MEDS: 0.9% Normal Saline (1000mL) 1,000 ML 150 ML IV (04:45)
[2024-02-20 06:26] LABS: Absolute Lymphocyte Count 1.72 X10^3/uL (0.83-4.51); Absolute Neutrophil Count 2.8 X10^3/uL (2.0-7.7); Basophil# 0.04 X10^3/uL; Basophil% 0.8 % (0-1); Hematocrit 36.5 % (37-47); Hemoglobin 11.9 g/dL (12.0-15.0); Lymphocyte # 1.72 X10^3/ul (0.83-4.51); Mean Corp Hgb Conc 32.6 g/dL (32-36); Mean Corpuscular Hgb 33.4 pg (27.0-32.0); Mean Corpuscular Volume 102.5 fL (81-99); Mean Platelet Vol. 10.7 fl (6.2-12.0); Monocyte# 0.42 X10^3/uL; Monocyte% 8.3 % (0-10); NRBC Flagged by Analyzer 0 % (0-5); Neutrophil # 2.77 X10^3/uL (2.7-7.7); Neutrophil % 54.7 % (47-70); Platelet Count 218 K/mm3 (150-450); RBC Distribution Width CV 12.5 % (11.6-14.6); RBC Distribution Width SD 47.6 fl (35.1-43.9); Red Blood Count 3.56 M/mm3 (4.2-5.4); White Blood Count 5.1 K/mm3 (4.4-11.0)
[2024-02-20] MEDS: Acetaminophen 325 MG Tablet 650 MG PO ×3 (07:01→21:55)
[2024-02-20 07:06] LABS: ALB/GLOB Ratio 0.8 RATIO (0.9-2.4); AST(SGOT) 12 U/L (15-37); Alanine Aminotransfer ALT/SGPT 8 U/L (13-56); Albumin, Serum 2.6 g/dL (3.2-5.0); Alkaline Phosphatase 69 U/L (45-117); Anion Gap 3 (5-15); BUN 10 mg/dL (7-18); BUN/Creat Ratio 11.9 RATIO (10-20); Calcium,Total 8.5 mg/dL (8.5-10.1); Chloride 114 mmol/L (98-107); Creatinine, Serum 0.84 mg/dL (0.55-1.02); EST Glomerular Filtration Rate 75 mL/min (>60); Est Glom Filt Rate - Afr Amer 90 mL/min (>60); Estimated Creatinine Clearance 64.58 ml/min; Globulin 3.3 g/dL (2.2-4.2); Glucose 90 mg/dL (74-106); Potassium 3.7 mmol/L (3.5-5.1); Protein, Total 5.9 g/dL (6.4-8.2); Sodium Level 142 mmol/L (136-145)
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
--- NOTE | 2024-02-20 08:34 | WOUNDNOTE ---
wound photo: right foot
--- NOTE | 2024-02-20 08:35 | WOUNDNOTE ---
wound photo: right foot
[2024-02-20 08:45] VITALS: BP 114/80; PULSE 76; RESP 18; TEMP 36.9; O2SAT 98
[2024-02-20] MEDS: levoFLOXacin IV 750 MG/150 ML BAG 100 MG IV (09:38)
[2024-02-20] MEDS: Enoxaparin 40 MG/0.4 ML Syringe SC (09:40)
[2024-02-20] MEDS: Ketorolac 30 MG/ML Syringe IV ×2 (11:43→19:44)
[2024-02-20] MEDS: 0.9% Saline Lock 10 ML Syringe IV ×2 (11:44→19:45)
[2024-02-20 15:00] VITALS: BP 126/96; PULSE 94; RESP 18; TEMP 37; O2SAT 97
--- NOTE | 2024-02-20 15:04 | CHAPLAIN ---
Type of Pastoral Visit _x__ Initial Visit ___ Follow-up Visit ___ On-call Visit ___ General Patient Visit ___ Spiritual Assessment ___ Family Conference ___ Bereavement ___ Rapid Response ___ Code Blue ___ Other (describe below) Pastoral Care Referral From _x__ Patient ___ Family ___ Nurse ___ Physician ___ Lead Former ___ Leather Coater ___ Other (describe below) Sacrament/Intervention _x__ Active listening ___ Anointing ___ Alevism ___ Bereavement ___ Communion ___ Rosa exploration ___ ___ Life review _x__ Prayer ___ Reconciliation ___ Sacrament of Sick _x__ Supportive presence ___ Wedding ___ Other (describe below) Pastoral Comments patient had an injury at work and just wants to get back to work; patient asked for prayer
[2024-02-20 19:56] VITALS: BP 128/90; PULSE 78; RESP 16; TEMP 37; O2SAT 96
[2024-02-20] MEDS: MELATONIN 3 MG TABLET PO (21:52)
[2024-02-21] MEDS: Acetaminophen 325 MG Tablet 650 MG PO ×2 (03:16→09:39)
[2024-02-21] MEDS: Calcium Carbonate 500 MG Tablet 1000 MG PO (03:16)
[2024-02-21 03:20] VITALS: BP 125/83; PULSE 67; RESP 16; TEMP 37; O2SAT 96
[2024-02-21 09:00] VITALS: BP 124/95; PULSE 75; RESP 16; TEMP 36.7; O2SAT 98
[2024-02-21 09:03] LABS: Absolute Lymphocyte Count 1.84 X10^3/uL (0.83-4.51); Absolute Neutrophil Count 5.6 X10^3/uL (2.0-7.7); Basophil# 0.03 X10^3/uL; Basophil% 0.4 % (0-1); Eosinophil# 0.15 X10^3/uL; Eosinophils% 1.8 % (0-5); Hemoglobin 13.1 g/dL (12.0-15.0); Lymphocyte # 1.84 X10^3/ul (0.83-4.51); Lymphocyte % 22.7 % (19-41); Mean Corp Hgb Conc 33.6 g/dL (32-36); Mean Corpuscular Hgb 33.6 pg (27.0-32.0); Mean Platelet Vol. 10.7 fl (6.2-12.0); Monocyte# 0.52 X10^3/uL; Monocyte% 6.4 % (0-10); NRBC Flagged by Analyzer 0 % (0-5); Neutrophil # 5.55 X10^3/uL (2.7-7.7); Neutrophil % 68.3 % (47-70); Platelet Count 249 K/mm3 (150-450); RBC Distribution Width CV 12.3 % (11.6-14.6); RBC Distribution Width SD 45.6 fl (35.1-43.9); White Blood Count 8.1 K/mm3 (4.4-11.0)
[2024-02-21] MEDS: levoFLOXacin IV 750 MG/150 ML BAG 100 MG IV (09:21)
[2024-02-21] MEDS: 0.9% Saline Lock 10 ML Syringe IV (09:21)
[2024-02-21] MEDS: Silver Sulfadiazine 1% Crm 50 gm Bottle 1 APPLIC TOPICAL (09:24)
[2024-02-21 09:29] LABS: Anion Gap 6 (5-15); BUN 14 mg/dL (7-18); BUN/Creat Ratio 14.8 RATIO (10-20); Chloride 112 mmol/L (98-107); Creatinine, Serum 0.95 mg/dL (0.55-1.02); EST Glomerular Filtration Rate 65 mL/min (>60); Est Glom Filt Rate - Afr Amer 78 mL/min (>60); Glucose 95 mg/dL (74-106); Potassium 3.9 mmol/L (3.5-5.1); Sodium Level 142 mmol/L (136-145)
--- NOTE | 2024-02-21 10:10 | CASEMGMT ---
EDWARD LIM Assessment Face to Face with patient for initial transition planning/care coordination assessment. EDWARD LIM introduced self and role at [facility], pt voices understanding. Pt is A&Ox4 and is resting comfortably in bed and is calm. Care providers, pharmacy, and demographics verified. Admitting dx: Rt Foot Cellulitis PCP: Paige Pedro Specialists: Denies. Dr. Anaya (Podiatry) is seeing the pt during stay Preferred Pharmacy: [facility] Insurance: [employer] Prescription Benefit: Yes LNOK: Medina Chambers (Sister) Living Arrangements: Pt lives alone in an upstairs apartment with a flight of steps to manage with a handrail. Pt states that she was able to and will still be able to manage the flight of steps after DC ADLs/IADLs: Ind Transportation: Pt drives self. Pt states that her sister is currently in rehab and is unavailable for assistance. Pt states that she feels that she can drive herself home from the hospital once she is discharged. Pt states I have a cat at home that need fed and I will be discharging today. DME: Denies all DME uses or needs HHC/SNF: Denies history or needs Pt?s goal: Home Plan: Home independently and to f/u with the Wound Center. Pt states that she has enough supplies and is able to care for her wound per herself. Pt states that she plans to call the wound center to schedule an appt. 6-Click is 24. Pt denies further needs at this time and is wanting to DC home today. Narendra Thompson RN, CM
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
[2024-02-21 14:49] VITALS: BP 141/94; PULSE 88; RESP 16; TEMP 36.8; O2SAT 99
== END 2024-02-21 14:45 | disposition home or self-care (01) | DRG 572 ==
LOC: ED 17:33 → MS3 18:10
PROVIDERS: Admitting Provider Internal Medicine; Emergency Provider Emergency Medicine; PCP Family Medicine; Visit Provider Student in an Organized Health Care Education/Training Program
DX: L03.115 Cellulitis of right lower limb (principal); L97.511 Non-pressure chronic ulcer of other part of right foot limited to breakdown of skin; J44.9 Chronic obstructive pulmonary disease, unspecified; Z21 Asymptomatic human immunodeficiency virus [HIV] infection status; F17.210 Nicotine dependence, cigarettes, uncomplicated; J30.9 Allergic rhinitis, unspecified; J43.9 Emphysema, unspecified; T25.621D Corrosion of second degree of right foot, subsequent encounter; B96.5 Pseudomonas (aeruginosa) (mallei) (pseudomallei) as the cause of diseases classified elsewhere; T25.221D Burn of second degree of right foot, subsequent encounter; R91.1 Solitary pulmonary nodule; X12.XXXD Contact with other hot fluids, subsequent encounter
CPT/HCPCS: 36415; 73630; 80048; 80053; 83605; 85025; 87070; 87205; 97802; 99283; 99406; J7030; A4216

== ENCOUNTER 2024-03-03 11:00 | Emergency (ER) | payer OTHER, MEDICAID, SELFPAY ==
[2024-03-03 11:00] VITALS: BP 111/93; PULSE 112; RESP 18; TEMP 36.6; O2SAT 98
[2024-03-03 11:09] VITALS: BMI 21.1
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
== END 2024-03-03 12:51 | disposition home or self-care (01) ==
PROVIDERS: Emergency Provider Emergency Medicine; PCP Family Medicine; Visit Provider Emergency Medicine
DX: T25.221D Burn of second degree of right foot, subsequent encounter (principal); J44.9 Chronic obstructive pulmonary disease, unspecified; Z21 Asymptomatic human immunodeficiency virus [HIV] infection status; F17.210 Nicotine dependence, cigarettes, uncomplicated; Z51.89 Encounter for other specified aftercare; Z79.899 Other long term (current) drug therapy; X08.8XXA Exposure to other specified smoke, fire and flames, initial encounter
CPT/HCPCS: 96372; 99282

== ENCOUNTER 2024-03-14 09:45 | Outpatient (RCR) | payer OTHER, SELFPAY ==
[2024-02-23 11:09] VITALS: BP 114/70; PULSE 102; RESP 18; TEMP 35.7
--- NOTE | 2024-02-23 12:01 | PCM.WC.HP ---
History of Present Illness Date of Service: 02/23/24 Chief Complaint: Right foot burn injury History of Wound: Ms. Vazquez is a 54-year-old who was referred to the wound center following recent hospital stay. Recently admitted and managed for right foot cellulitis and second-degree burn. Sustained injury following hot water burn at work. Had bedside debridement by podiatry during her hospital stay with recommendation for Silvadene and Adaptic dressing. She states that she was initially doing it twice a day but lately, has been doing it daily. Denies significant drainage. Also has 5 more days of antibiotics. She believes that the wound size/irritation is improving. Still has some pain but is otherwise doing well. [facility] Medical History (Updated 02/23/24 @ 12:[address] Aman Iraheta MD) Work related injury Gum disease GERD (gastroesophageal reflux disease) Dust allergy COPD (chronic obstructive pulmonary disease) Emphysema lung Tobacco use disorder, continuous Encounter for screening for malignant neoplasm of lung HIV (human immunodeficiency virus infection) Home Medications ?Medication ?Instructions ?Recorded ?Last Taken ?Type Allergy Shots IM QWEEK allergies 08/30/23 02/17/24 History cetirizine 10 mg tablet 10 mg PO DAILY allergies 08/30/23 02/19/24 History bictegravir 50 mg-emtricitabine 1 tab PO DAILY hiv 02/19/24 02/18/24 History 200 mg-tenofovir alafenam 25 mg tablet (Biktarvy) guaifenesin 600 mg tablet, 600 mg PO DAILY copd 02/19/24 02/19/24 History extended release 12 hr (Mucinex) silver sulfadiazine 1 % topical 1 applic topical BID burn 02/19/24 02/19/24 History cream levofloxacin 750 mg tablet 750 mg PO DAILY #7 tabs 02/21/24 Unknown Rx Allergy/AdvReac Type Severity Reaction Status Date / Time house dust Allergy Shortness Verified 02/19/24 16:59 of breath montelukast (From Singulair) Allergy PT UNSURE Verified 02/23/24 10:55 OF REACTION Surgical History H/O breast augmentation Social History Smoking Status: Current every day smoker tobacco type: cigarettes Tobacco: How many years used: 40 ROS Constitutional Constitutional: Denies body ache(s), chills, fever(s) or weakness Eyes Eyes: Denies diplopia, eye pain or loss of vision ENT HEENT: Denies dysphagia, rhinorrhea or sore throat Cardiovascular Cardiovascular: Denies chest pain, claudication or palpitations Respiratory/Chest Respiratory/Chest: Denies cough, dyspnea or shortness of breath at rest Gastrointestinal Gastrointestinal: Denies anorexia, constipation, diarrhea, nausea or vomiting Genitourinary Genitourinary: Denies dysuria, hematuria or urinary urgency Musculoskeletal Musculoskeletal: Denies joint pain, joint stiffness or joint swelling Integumentary Integumentary: Denies lesions, pruritus or rash Neurologic Neurologic: Denies dizziness, numbness or seizures Psychiatric Psychiatric: Denies anxiety or depression Endocrine Endocrinology: Denies cold intolerance, heat intolerance, polydipsia or polyphagia Hematologic/Lymphatic Hematologic/Lymphatic: Denies easy bleeding or easy bruising Allergic/Immunologic Allergic/Immunologic: Denies wheezing Vital Signs Vital Signs Vital Signs: 02/23/24 11:09 Temperature 96.2 F L Temperature Source Temporal Pulse Rate 102 H Respiratory Rate 18 Blood Pressure 114/70 Blood Pressure Mean 84 Blood Pressure Source Monitor Blood Pressure Position Sitting Blood Pressure Location Left Arm Oxygen Delivery Method Room Air Physical Exam Const alert, oriented x3 and no apparent distress General Appearance: cooperative and comfortable HEENT normocephalic and head/scalp atraumatic Head and Scalp: normal to inspection Eyes EOMs intact bilaterally General Eye: normal appearance of both eyes Neck full ROM and supple General: normal visual inspection Resp normal respiratory effort and normal air movement Effort and Inspection: able to speak in complete sentences Cardio regular rate, regular rhythm, S1 normal heart sound and S2 normal heart sound GI soft to palpation, non-tender and non-distended Extremity General Extremity: edema Skin Wounds: wounds noted bed granulating well, yellow and with slough, drainage, margins, no odor, open and surrounding erythema Neuro oriented x3, CN's II-XII intact bilaterally, moves all extremities and no focal motor deficits Psych mental status grossly normal, thought process normal, cooperative and affect normal Debridement Note Debridement Note Wound debrided: Right foot Type of Debridement: Excisional debridement Anesthesia Used: 4% Lidocaine Solution Depth: Down to and including healthy tissue and in the subcutaneous layer Percentage of wound debrided: 100 Instrument Used: 5mm curette Tissue Removed: Slough and devitalized tissue Severity: Fat Layer Exposed Amount of bleeding with debridement: Mild Bleeding Controlled with: Pressure Patient tolerated procedure: Patient tolerated procedure well Post-Debridement Measurements and Additional Note: Post-Debridement Measurements/Treatment WC - Nurse 1 - General Ulcer Assessment Start: 02/23/24 10:50 Freq: Status: Active Protocol: LEMUEL Activity Type Activity Date Activity User E-sign Co-sign Detail Recorded Client Recorded Date Recorded By Document 02/23/24 11:09 KW [facility] 02/23/24 11:13 KW 02/23/24 11:09 - Today's Visit Information Type of service Initial Visit Arrival Mode Wheelchair Patient Identification Verified (Name & Yes ) Vital Signs Temperature (97.8 F-99.1 F) 96.2 F L Temperature Source Temporal Pulse Rate (60-100) 102 H Pulse Location Monitor Respiratory Rate (12-18) 18 Respiratory rate source Observation Oxygen Delivery Method Room Air Blood Pressure (90/60-120/80) 114/70 Blood Pressure Mean 84 Source Monitor Position Sitting Blood Pressure Location Left Arm History Since Last Visit- (Skip if this is Patient's initial visit) Left Footwear Regular Shoe Right Footwear Regular Shoe Pain Scale: 0-10 Numeric Is Patient Pain Free? No RT FOOT -Description Throbbing, Burning -Intensity 5 -Alleviating Factors/Interventions Medication, Medicate when due Communication Assessment Preferred language Dominican Soil Surveyor Required No Able to Read Yes Able to Write Yes Communication Tools None Caregiver Communication Skills No Impairment Impairment Right Hearing Abillity Normal Left Hearing Abillity Normal Visual Assistive Devices Glasses Teaching Assessment Preferences Verbal,Written, Demonstration Barriers to Learning None Readiness To Learn Excellent Willingness to Engage in Self Management High Activies Readiness to Engage in Self Management High Activities Anxiety Level Calm Cooperation Cooperative Perception Coherent Interest in Health Problem Asks Questions Education Importance Acknowledges Need Does Patient Smoke tobacco or other Yes substances Smoking Status Current every day smoker Is Patient Diabetic No Functional Assessment Recent Decline in Ability to Perform Denies Any Declines Culture/Yarsani/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 Entry Level Automotive Technician to contact place of denominational No JESSICA - Nurse 1 - General Ulcer Measurement Start: 02/23/24 10:50 Freq: Status: Active Protocol: Activity Type Activity Date Activity User E-sign Co-sign Detail Recorded Client Recorded Date Recorded By Document 02/23/24 11:09 KW [facility] 02/23/24 11:13 KW 02/23/24 11:09 Wound Center Nurse 1 #1 RT DORSAL FT -Current Size (cm) - Length 17 -Current Size (cm) - Width 9 -Current Size (cm) - Depth 0.1 -Total Square Cm 153 -Date of Last Picture (Recall this 02/23/24 field) -Exudate Amt Small -Exudate Type Serosanguineous -Wound Margin Distinct, Outline Attached -Granulation Amt Small (1-33%) -Granulation Quality Red -Necrosis Amt Large (67-100%) -Necrotic Tissue Type Adherent Slough -Texture (Gaby-wound Skin Appearance) Assessed -Moisture (Gaby-wound Skin Appearance) Assessed -Color (Gaby-wound Skin Appearance) Assessed, Erythema -Temperature (Gaby-wound Skin No Abnormality Appearance) (Pt Warm) -Tenderness on Palpation (Gaby-wound No Skin Appearance) -Ulcer Cleansing Soap and Water -Foul Odor after Cleansing No -Anesthetic Used 4% Lidocaine Solution WC - Nurse 2 - General Ulcer CM Notes Start: 02/23/24 10:50 Freq: Status: Active Protocol: Activity Type Activity Date Activity User E-sign Co-sign Detail Recorded Client Recorded Date Recorded By Document 02/23/24 11:24 GM 02/23/24 11:30 02/23/24 11:24 Wound Center Nurse 2 -Time 11:24 -Correct Patient Yes -Correct Side, Site, Position Yes -Correct Procedure Yes -Procedure Performed Yes -Type of Procedure Debridement -Clinical Debridement Subcutaneous -Tissue Removed Subcutaneous -Post Debridement (cm) - Length 16.0 -Post Debridement (cm) - Width 10.5 -Post Debridement (cm) - Depth 0.1 -Total Square (Post) (cm) 168.00 -Area of Debridement (cm) - Length 16.0 -Area of Debridement (cm) - Width 10.5 -Total Square (Area) (cm) 168.00 -Tunneling No -Undermining/Tunneling No -Circular Undermining No -Wound/Ulcer Outcome Not Healed -Ulcer Cleansing Rinsed/ Irrigated with Saline -Foul Odor after Cleansing No -Bioengineered Tissue No -Bleeding Controlled with Pressure -Treatment Response Procedure Tolerated Well -Debridement - Subq, 1st 20sq cm Yes Pain Scale: 0-10 Numeric Is Patient Pain Free? Yes Charges/Coding Visit Charges Office Visits / Consults: 16287 OV L3 Est 20min Procedures Integumentary [id number]: [id number] Nancy subq tissue 20 sq cm/< Assessment/Plan Assessment/Plan (1) Burn of foot, right, second degree: CODE(S): T25.221A - Burn of second degree of right foot, initial encounter (2) Pain in right foot: CODE(S): M79.671 - Pain in right foot (3) Cellulitis of right foot: CODE(S): L03.115 - Cellulitis of right lower limb (4) Tobacco use disorder, continuous: CODE(S): F17.209 - Nicotine dependence, unspecified, with unspecified nicotine-induced disorders (5) Work related injury: CODE(S): Y99.0 - Civilian activity done for income or pay (6) HIV (human immunodeficiency virus infection): CODE(S): B20 - Human immunodeficiency virus [HIV] disease PLAN: Plan Debridement done as documented above, procedure was well-tolerated. As above, she states that it has improved since hospital stay/discharge. We do not have measurements for comparison. Has been using Silvadene daily. Continue Silvadene daily to twice daily. Cover with Adaptic and gauze. Single-layer Tubigrip for edema management. Complete antibiotic as prescribed, no indication for culture at this time. Will have her come in for a courtesy visit next week and follow-up with me in 2 weeks. Samples of Taras given. Optimal protein intake, leg elevation and exercise as tolerated. New postop shoes given. Recommend smoking cessation. Her questions were answered and she was advised to let us know if she has any questions or concerns, she voiced understanding. This note was generated with [employer] dictation software. It may contain incorrect words, spelling, and punctuation that were not noted in checking the note before signing.
[2024-02-29 09:39] VITALS: BP 114/92; PULSE 95; RESP 18; TEMP 36.3
--- NOTE | 2024-02-29 10:33 | PCM.WC.HP ---
History of Present Illness Date of Service: 02/29/24 Chief Complaint: Right foot burn injury History of Wound: Ms. Vazquez is a 54-year-old who was referred to the wound center following recent hospital stay. Recently admitted and managed for right foot cellulitis and second-degree burn. Sustained injury following hot water burn at work. Had bedside debridement by podiatry during her hospital stay with recommendation for Silvadene and Adaptic dressing. She states that she was initially doing it twice a day but lately, has been doing it daily. Denies significant drainage. Also has 5 more days of antibiotics. She believes that the wound size/irritation is improving. Still has some pain but is otherwise doing well. Progress of Wound: Ms. Vazquez is a 54-year-old female seen at the wound care center today follow-up evaluation of right foot ulceration secondary to hot water burn while at work. Patient has been compliant with dressing changes consisting of Silvadene, Adaptic and dry sterile dressing and compression wrap. She has completed her antibiotics. She admits to some pain especially with touch and weightbearing. She denies any constitutional symptoms. No other pedal complaints at this time. [facility] Medical History Pain in right foot Burn of foot, right, second degree Non-pressure chronic ulcer of other part of right foot limited to breakdown of skin Second degree burn Cellulitis of right foot Work related injury Gum disease GERD (gastroesophageal reflux disease) Dust allergy COPD (chronic obstructive pulmonary disease) Emphysema lung Tobacco use disorder, continuous Encounter for screening for malignant neoplasm of lung HIV (human immunodeficiency virus infection) Home Medications ?Medication ?Instructions ?Recorded ?Last Taken ?Type Allergy Shots IM QWEEK allergies 08/30/23 02/17/24 History cetirizine 10 mg tablet 10 mg PO DAILY allergies 08/30/23 02/19/24 History bictegravir 50 mg-emtricitabine 1 tab PO DAILY hiv 02/19/24 02/18/24 History 200 mg-tenofovir alafenam 25 mg tablet (Biktarvy) guaifenesin 600 mg tablet, 600 mg PO DAILY copd 02/19/24 02/19/24 History extended release 12 hr (Mucinex) silver sulfadiazine 1 % topical 1 applic topical BID burn 02/19/24 02/19/24 History cream levofloxacin 750 mg tablet 750 mg PO DAILY #7 tabs 02/21/24 Unknown Rx Allergy/AdvReac Type Severity Reaction Status Date / Time house dust Allergy Shortness Verified 02/19/24 16:59 of breath montelukast (From Singulair) Allergy PT UNSURE Verified 02/23/24 10:55 OF REACTION Surgical History H/O breast augmentation Social History Smoking Status: Current every day smoker tobacco type: cigarettes Tobacco: How many years used: 40 Vital Signs Vital Signs Vital Signs: 02/29/24 09:39 Temperature 97.3 F L Temperature Source Temporal Pulse Rate 95 Respiratory Rate 18 Blood Pressure 114/92 H Blood Pressure Mean 99 Blood Pressure Source Monitor Blood Pressure Position Semi-Fowlers Blood Pressure Location Left Arm Oxygen Delivery Method Room Air Physical Exam Narrative Vascular: DP and PT pulses are palpable. CFT is brisk. Blanchable erythema appreciated to the right foot. Evidence of secondary burn. Skin temperature is warm to warm from proximal ankle to distal digit. Evidence of focal increase of the right foot. Neurological: Light touch intact. Patient response to painful stimuli. Dermatological: Secondary burn to the right dorsal foot with ulceration measuring 11.5 x 10.2 x 0.1 cm. Wound base is fibrogranular nature. No drainage. No malodor. No probe to bone. No exposed tendons. No sign of infection at this time. Excisional debridement down to and including subcutaneous tissue with a number 5 mm dermal curette to the dorsal aspect of the right foot without incident. Predebridement measurement was 11.0 x 10.0 x 0.1 cm. Postdebridement measurement is 11.5 x 10.2 x 0.1 cm. Musculoskeletal: Muscle strength deferred. Pain on palpation to the right foot. No pain with calf pressure. Debridement Note Debridement Note Debridement Free Text: Excisional debridement down to and including subcutaneous tissue with a number 5 mm dermal curette to the dorsal aspect of the right foot without incident. Predebridement measurement was 11.0 x 10.0 x 0.1 cm. Postdebridement measurement is 11.5 x 10.2 x 0.1 cm. Post-Debridement Measurements and Additional Note: Post-Debridement Measurements/Treatment - Nurse 1 - General Ulcer Assessment Start: 02/23/24 10:50 Freq: Status: Active Protocol: LEMUEL Activity Type Activity Date Activity User E-sign Co-sign Detail Recorded Client Recorded Date Recorded By Document 02/23/24 11:09 KW xfh 02/23/24 11:13 KW Document 02/29/24 09:39 KW asfd 02/29/24 09:44 KW 02/23/24 02/29/24 11:09 09:39 - Today's Visit Information Type of service Initial Visit Follow-up Visit (Physician/JEWELRY BEARING MAKER ) Arrival Mode Wheelchair Ambulatory Patient Identification Verified (Name & Yes Yes ) Vital Signs Temperature (97.8 F-99.1 F) 96.2 F L 97.3 F L Temperature Source Temporal Temporal Pulse Rate (60-100) 102 H 95 Pulse Location Monitor Monitor Respiratory Rate (12-18) 18 18 Respiratory rate source Observation Observation Oxygen Delivery Method Room Air Room Air Blood Pressure (90/60-120/80) 114/70 114/92 H Blood Pressure Mean 84 99 Source Monitor Monitor Position Sitting Semi-Fowlers Blood Pressure Location Left Arm Left Arm History Since Last Visit- (Skip if this is Patient's initial visit) Have you changed medications since your No last visit? Any new allergies or adverse reactions No Had a fall/change in ADL's that may No increase risk of falls Signs or symptoms of abuse and/or No neglect since last visit Have you been in the hospital since your No last visit? Has dressing in place as prescribed Yes Has compression in place as prescribed Yes Has offloadiing in place as prescribed Yes Experienced any changes in pain level or No management Left Footwear Regular Shoe Regular Shoe Right Footwear Regular Shoe Surgical Shoe with pressure relief insole Pain Scale: 0-10 Numeric Is Patient Pain Free? No No RT FOOT -Description Throbbing, Sharp,Burning Burning -Intensity 5 -Alleviating Factors/Interventions Medication, Medication Medicate when due Communication Assessment Preferred language Bahraini Mixing Tank Operator Required No Able to Read Yes Able to Write Yes Communication Tools None Caregiver Communication Skills No Impairment Impairment Right Hearing Abillity Normal Left Hearing Abillity Normal Visual Assistive Devices Glasses Teaching Assessment Preferences Verbal,Written, Demonstration Barriers to Learning None Readiness To Learn Excellent Willingness to Engage in Self Management High Activies Readiness to Engage in Self Management High Activities Anxiety Level Calm Cooperation Cooperative Perception Coherent Interest in Health Problem Asks Questions Education Importance Acknowledges Need Does Patient Smoke tobacco or other Yes substances Smoking Status Current every day smoker Is Patient Diabetic No Functional Assessment Recent Decline in Ability to Perform Denies Any Declines Culture/Uatsdin/Painter And Paperhanger Apprentice Cultural/Uatsdin Needs that may affect No Treatment Plan Would you allow our hospital leather piece inspector to No meet you for the purpose of spiritual/ emotional support? Painter And Paperhanger Apprentice to contact place of sabianism No WC - Nurse 1 - General Ulcer Measurement Start: 02/23/24 10:50 Freq: Status: Active Protocol: Activity Type Activity Date Activity User E-sign Co-sign Detail Recorded Client Recorded Date Recorded By Document 02/23/24 11:09 KW xfh 02/23/24 11:13 KW Document 02/29/24 09:39 KW asfd 02/29/24 09:44 KW 02/23/24 02/29/24 11:09 09:39 Wound Center Nurse 1 #1 RT DORSAL FT -Current Size (cm) - Length 17 10.8 -Current Size (cm) - Width 9 8 -Current Size (cm) - Depth 0.1 0.1 -Total Square Cm 153 86.4 -Date of Last Picture (Recall this 02/23/24 field) -Exudate Amt Small Medium -Exudate Type Serosanguineous Serosanguineous -Wound Margin Distinct, Distinct, Outline Outline Attached Attached -Granulation Amt Small (1-33%) Small (1-33%) -Granulation Quality [place] -Necrosis Amt Large (67-100%) Large (67-100%) -Necrotic Tissue Type Adherent Slough Adherent Slough -Texture (Gaby-wound Skin Appearance) Assessed Assessed -Moisture (Gaby-wound Skin Appearance) Assessed Assessed -Color (Gaby-wound Skin Appearance) Assessed, Assessed, Erythema Erythema -Temperature (Gaby-wound Skin No Abnormality No Abnormality Appearance) (Pt Warm) (Pt Warm) -Tenderness on Palpation (Gaby-wound No No Skin Appearance) -Ulcer Cleansing Soap and Water Soap and Water -Foul Odor after Cleansing No No -Anesthetic Used 4% Lidocaine 4% Lidocaine Solution Solution WC - Nurse 2 - General Ulcer CM Notes Start: 02/23/24 10:50 Freq: Status: Active Protocol: Activity Type Activity Date Activity User E-sign Co-sign Detail Recorded Client Recorded Date Recorded By Document 02/23/24 11:24 GM wc 02/23/24 11:30 GM Edit Result 02/23/24 11:24 GM (1) [id number] 02/29/24 07:28 GM Document 02/29/24 09:58 JF 0000 02/29/24 09:59 JF (1) #1 RT DORSAL FT - Debridement, SubQ, ea addt'l 20sq cm => 8 or part thereof 02/23/24 02/29/24 11:24 09:58 Wound Center Nurse 2 #1 RT DORSAL FT -Time 11:24 09:58 -Correct Patient Yes Yes -Correct Side, Site, Position Yes Yes -Correct Procedure Yes Yes -Procedure Performed Yes Yes -Type of Procedure Debridement Debridement -Clinical Debridement Subcutaneous Subcutaneous -Tissue Removed Subcutaneous Subcutaneous -Post Debridement (cm) - Length 16.0 11.5 -Post Debridement (cm) - Width 10.5 10.2 -Post Debridement (cm) - Depth 0.1 0.1 -Total Square (Post) (cm) 168.00 117.30 -Area of Debridement (cm) - Length 16.0 11.5 -Area of Debridement (cm) - Width 10.5 10.2 -Total Square (Area) (cm) 168.00 117.30 -Tunneling No No -Undermining/Tunneling No No -Circular Undermining No No -Wound/Ulcer Outcome Not Healed Not Healed -Ulcer Cleansing Rinsed/ Rinsed/ Irrigated with Irrigated with Saline Saline -Foul Odor after Cleansing No No -Bioengineered Tissue No No -Bleeding Controlled with Pressure Pressure -Treatment Response Procedure Procedure Tolerated Well Tolerated Well -Offloading No -Debridement - Subq, 1st 20sq cm Yes Yes -Debridement, SubQ, ea addt'l 20sq cm 8 5 or part thereof Pain Scale: 0-10 Numeric Is Patient Pain Free? Yes Yes - Nurse 3 - General Ulcer D/C NN Start: 02/23/24 10:50 Freq: Status: Active Protocol: Activity Type Activity Date Activity User E-sign Co-sign Detail Recorded Client Recorded Date Recorded By Document 02/23/24 12:08 KW xfh 02/23/24 12:10 KW Document 02/29/24 10:08 KW asfd 02/29/24 10:09 KW 02/23/24 02/29/24 12:08 10:08 Wound Care Center Nurse 3 #1 RT DORSAL FT -Primary Dressing Applied NonAdherent Contact Layer -Other Dressing SILVER CREAM betadine -Primary Dressing Covered/Secured with Dry Gauze & Dry Gauze & Roll Gauze, Roll Gauze, Secured with Secured with Tape Tape Right -Tubular Bandage Single Layer Single Layer -Size of Tubigrip Used Size D Size E -Size D ($) 1 -Size E ($) 1 Pain Scale: 0-10 Numeric Is Patient Pain Free? Yes Yes WC - Visit Discharge Discharge Condition Stable Stable Ambulatory Status Ambulatory Ambulatory Transportation Private Auto Private Auto Medication Reconcilliation completed & No No provided to patient/care provider Clinical Summary of Care Provided Yes Yes Assessment/Plan Assessment/Plan (1) Burn of second degree of right foot, initial encounter: CODE(S): T25.221A - Burn of second degree of right foot, initial encounter PLAN: Patient was examined and evaluated. All findings were discussed with the patient. All questions were answered to the patient's satisfaction. Excision debridement down to and including subcutaneous tissue with a number 5 mm dermal curette to the dorsal aspect of the right foot without incident. Predebridement measurement was 11.0 x 10.0 x 0.1 cm. Postdebridement measurement is 11.5 x 10.2 x 0.1 cm. The right lower extremities are clean and patted dry. No attempt of culture was taken due to no concern for infection. The patient is finished all her antibiotics that she was discharged on on the hospital. The ulceration was dressed with Betadine soaked gauze dry sterile dressing and compression wrap. Patient will perform daily dressing changes. It was educated to the patient that there may be some discomfort when changing her dressing and she is to get the gauze moist before removing which she was understanding of. Did talk with the patient that if she is having continued pain with the dressing changes she can go back to the Silvadene cream, Adaptic and dry sterile dressing. Will begin authorization for C9 to take the patient the operating room to clean up the burn to apply skin graft substitute. CPT: 41520, surgical skin graft site prep, right foot CPT: 49497, application of skin graft substitute, right foot Follow-up at the wound care center with Dr. Valladares in 1 week.
--- NOTE | 2024-03-05 15:31 | WC ---
Pt called and reported she had gone into the [facility] ED d/t increase pain and burning. It was advised for her to stop betadine and stop dressing changes until seen. She did report that her drainage is seeping through today, this nurse advised that she cleanses and redress foot with clean dry gauze with adaptic.
[2024-03-07 09:49] VITALS: BP 125/84; PULSE 89; RESP 18; TEMP 36.6
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
--- NOTE | 2024-03-08 09:12 | WC ---
Patient called complaining of pain to her ulcer, states the betadine is causing burning and cramping of foot and isn't sleeping. She also said it makes her nauseated. She is using the adaptic that we started yesterday but the pain is bad enough that she was going to go to the ER. Patient states she still has silvadene and never had issues with that and it didn't cause pain. Told her to use that for now and notified Dr Valladares via backline. If any new orders come thru, I will call patient back directly. She provided the [facility] contact info, Mercedes at [phone]. Called and left a voicemail message with Mercedes requesting the approved C-9.
--- NOTE | 2024-03-08 10:19 | WC ---
PHOTO 02/23/24 RIGHT DORSAL FOOT
[2024-03-14 10:01] VITALS: BP 115/84; PULSE 84; RESP 18; TEMP 35.8
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
== END 2024-03-17 23:59 | disposition home or self-care (01) ==
LOC: WC 09:45
PROVIDERS: PCP Family Medicine; Referring Provider Family Medicine; Visit Provider Podiatrist Foot & Ankle Surgery
DX: L97.512 Non-pressure chronic ulcer of other part of right foot with fat layer exposed (principal); J43.9 Emphysema, unspecified; B20 Human immunodeficiency virus [HIV] disease; T25.221S Burn of second degree of right foot, sequela; X12.XXXS Contact with other hot fluids, sequela; L03.115 Cellulitis of right lower limb; F17.219 Nicotine dependence, cigarettes, with unspecified nicotine-induced disorders; Y99.0 Civilian activity done for income or pay; Z79.82 Long term (current) use of aspirin; Z79.899 Other long term (current) drug therapy
CPT/HCPCS: 11042; 11045; 99213; G0463

== ENCOUNTER → 2024-03-14 | Outpatient (CLI) | payer MEDICAID, SELFPAY ==
[2024-03-14 17:52] LABS: Syphilis Antibodies Non-reactive
[2024-03-16 13:08] LABS: Absolute CD4 Helper 1250 /uL (359-1519); Basophils (Absolute) 0 x10E3/uL (0.0-0.2); Eosinophils 2 % (Not Estab.); Eosinophils (Absolute) 0.1 x10E3/uL (0.0-0.4); Hemoglobin 13.3 g/dL (11.1-15.9); Immature Granulocytes 0 % (Not Estab.); Immature Granulocytes Absolute 0 x10E3/uL (0.0-0.1); Lymphs 32 % (Not Estab.); Lymphs (Absolute) 2.2 x10E3/uL (0.7-3.1); MCH 33.3 pg (26.6-33.0); MCHC 31.7 g/dL (31.5-35.7); MCV 105 fL (79-97); Monocytes 7 % (Not Estab.); Monocytes (Absolute) 0.5 x10E3/uL (0.1-0.9); Neutrophils 58 % (Not Estab.); Neutrophils (Absolute) 4.2 x10E3/uL (1.4-7.0); Percent % CD4 Pos. Lymph. 56.8 % (30.8-58.5); Platelets 223 x10E3/uL (150-450); RDW 12.4 % (11.7-15.4); WBC Count 7.1 x10E3/uL (3.4-10.8)
[2024-03-17 04:07] LABS: HIV-1 RNA by PCR, Quant. < 20 copies/mL (.)
== END | disposition home or self-care (01) ==
LOC: LAB 15:55
PROVIDERS: PCP Family Medicine; Referring Provider Internal Medicine Infectious Disease; Visit Provider Internal Medicine Infectious Disease
DX: Z21 Asymptomatic human immunodeficiency virus [HIV] infection status (principal)
CPT/HCPCS: 36415; 86361; 86780; 87491; 87536; 87591

== ENCOUNTER 2024-03-23 09:02 | Day surgery (SDC) | payer OTHER, SELFPAY ==
[2024-03-23] VITALS (8 sets, daily range): BP systolic 92–124; BP diastolic 62–86; PULSE 71–87; RESP 16–18; TEMP 36.3–36.6; O2SAT 93–100; BMI 20.8
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
[2024-03-23] MEDS: Lactated Ringers 1,000 ML 15 ML IV (09:30)
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
[2024-03-23] MEDS: Cefazolin 2 GM in 0.9% Normal Saline (100mL Bag) 100 ML IV (11:31)
[2024-03-23] MEDS: Bupivacaine Mpf 0.5% 30 ML VIAL (12:02)
--- NOTE | 2024-03-23 12:12 | PCM.POST.ANE ---
Anesthesia: Postop Eval I Current Vital Signs Temperature: 98 F Pulse Rate: 79 Blood Pressure: 92/62 Respiratory Rate: 16 Pulse Ox: 94 Oxygen Delivery Method: Room Air Assessment Airway patent: Yes Spontaneous unlabored respirations: Yes Mental status: Awake nausea: No Vomiting: No Anesthesia Complication: No Fluid Hydration Crystalloid volume administer (ml): 800 Total IV fluid infused: 800 Progress Note Anesthesia document: Postop Eval 1 completed: Yes
--- NOTE | 2024-03-23 15:51 | POSTOPAN2_ITS ---
Anesthesia Postop Eval I Sum Postop Eval Completion status Anesthesia document: Postop Eval 1 completed: Yes Anesthesia Postop Eval I Summary Anesthesia Postop Eval I Summary: Anesthesia Postop Eval I: Assessment Summary Airway patent Yes 03/23/24 12:13 TIE MILL [email or web address].MDOT Spontaneous unlabored Yes 03/23/24 12:13 TIE MILL OPERATOR.MDOT respirations Mental status Awake 03/23/24 12:13 TIE MILL [email or web address].MDOT nausea No 03/23/24 12:13 TIE MILL OPERATOR.MDOT Vomiting No 03/23/24 12:13 TIE MILL [email or web address].MDOT Anesthesia Postop Eval I: Fluid Summary Crystalloid volume administer 800 03/23/24 12:13 TIE MILL OPERATOR.MDOT (ml) Colloids volume administered ( ml) Blood Product volume administered (ml) Total IV fluid infused 800 03/23/24 12:13 TIE MILL [email or web address].MDOT Anesthesia Postop Eval I: Summary Notes Anesthesia Complication No 03/23/24 12:13 TIE MILL OPERATOR.MDOT Anesthesia Complication Comment: Post-operative progress note Anesthesia: Postop Eval II Evaluation Mental status: Awake and Calm Pain Level: 1 nausea: No Vomiting: No Complications Anesthesia Complication: No
--- NOTE | 2024-03-23 15:51 | PCM.POSTANE2 ---
Anesthesia Postop Eval I Sum Postop Eval Completion status Anesthesia document: Postop Eval 1 completed: Yes Anesthesia Postop Eval I Summary Anesthesia Postop Eval I Summary: Anesthesia Postop Eval I: Assessment Summary Airway patent Yes 03/23/24 12:13 [email or web address].MDOT Spontaneous unlabored Yes 03/23/24 12:13 ENGINEERING [email or web address].MDOT respirations Mental status Awake 03/23/24 12:13 ENGINEERING [email or web address].MDOT nausea No 03/23/24 12:13 ENGINEERING DESIGNER.MDOT Vomiting No 03/23/24 12:13 ENGINEERING [email or web address].MDOT Anesthesia Postop Eval I: Fluid Summary Crystalloid volume administer 800 03/23/24 12:13 ENGINEERING [email or web address].MDOT (ml) Colloids volume administered ( ml) Blood Product volume administered (ml) Total IV fluid infused 800 03/23/24 12:13 ENGINEERING [email or web address].MDOT Anesthesia Postop Eval I: Summary Notes Anesthesia Complication No 03/23/24 12:13 ENGINEERING [email or web address].MDOT Anesthesia Complication Comment: Post-operative progress note Anesthesia: Postop Eval II Evaluation Mental status: Awake and Calm Pain Level: 1 nausea: No Vomiting: No Complications Anesthesia Complication: No
== END 2024-03-23 13:20 | disposition home or self-care (01) ==
LOC: SDC 09:04 → AC 09:07
PROVIDERS: PCP Family Medicine; Referring Provider Podiatrist Foot & Ankle Surgery; Visit Provider Podiatrist Foot & Ankle Surgery
PROC: (CPT 15275; principal; 2024-03-23 10:45)
DX: T25.221A Burn of second degree of right foot, initial encounter (principal); J44.1 Chronic obstructive pulmonary disease with (acute) exacerbation; B20 Human immunodeficiency virus [HIV] disease; Y99.0 Civilian activity done for income or pay; F17.210 Nicotine dependence, cigarettes, uncomplicated; Z79.899 Other long term (current) drug therapy
CPT/HCPCS: 15275; 15004; 00400; J7120; J2405

== ENCOUNTER 2024-04-11 10:00 | Outpatient (RCR) | payer OTHER, SELFPAY ==
[2024-03-18 00:39] VITALS: BP 115/84; PULSE 84; RESP 18; TEMP 35.8
[2024-03-21 09:51] VITALS: BP 158/78; PULSE 89; RESP 16; TEMP 37
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
[2024-03-28 10:35] VITALS: BP 118/96; PULSE 83; RESP 18; TEMP 36.1
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
[2024-04-02 11:01] VITALS: BP 139/94; PULSE 85; RESP 18; TEMP 36.8
[2024-04-04 09:47] VITALS: BP 116/83; PULSE 87; RESP 16; TEMP 35.9
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
[2024-04-11 09:52] VITALS: BP 130/92; PULSE 71; RESP 18; TEMP 36.3
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
== END 2024-04-16 23:59 | disposition home or self-care (01) ==
LOC: WC 10:00
PROVIDERS: PCP Family Medicine; Referring Provider Family Medicine; Visit Provider Podiatrist Foot & Ankle Surgery
DX: L97.519 Non-pressure chronic ulcer of other part of right foot with unspecified severity (principal); T25.221S Burn of second degree of right foot, sequela; X12.XXXS Contact with other hot fluids, sequela; Y99.0 Civilian activity done for income or pay
CPT/HCPCS: 11042; 11043; 11045; 11046; 99211; 99213; G0463

== ENCOUNTER 2024-05-09 09:45 | Outpatient (RCR) | payer OTHER, SELFPAY ==
[2024-04-17 00:18] VITALS: BP 115/84; PULSE 84; RESP 18; TEMP 35.8
[2024-04-18 10:00] VITALS: BP 113/83; RESP 18; TEMP 36.8
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
--- NOTE | 2024-04-19 08:15 | WC ---
PHOTO 04/18/24 RIGHT DORSAL FOOT
[2024-04-25 10:17] VITALS: BP 109/75; PULSE 85; RESP 18
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
--- NOTE | 2024-04-26 09:31 | WC ---
PHOTO 04/25/24 RIGHT DORSAL FOOT
[2024-05-02 09:42] VITALS: BP 117/77; PULSE 85; RESP 18; TEMP 35.8
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
--- NOTE | 2024-05-02 14:39 | WC ---
Left a voicemail message with a Elvira/MCO with [facility] at [phone] to discuss case and coverage with her since I have left previous messages with a Mercedes who was the previous MCO who would never call back to discuss outstanding C-9's. I would also like to submit a new [employer] and would like a new fax number. Will wait on a return call.
--- NOTE | 2024-05-03 11:10 | WC ---
PHOTO 05/02/24 RIGHT DORSAL FOOT
[2024-05-09 09:50] VITALS: BP 101/78; PULSE 83; RESP 18; TEMP 36.2
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
--- NOTE | 2024-05-11 10:20 | WC ---
PHOTO 05/09/24 RIGHT DORSAL FOOT
== END 2024-05-09 16:30 | disposition home or self-care (01) ==
LOC: WC 09:45
PROVIDERS: PCP Family Medicine; Referring Provider Family Medicine; Visit Provider Podiatrist Foot & Ankle Surgery
DX: T25.221A Burn of second degree of right foot, initial encounter (principal); X12.XXXA Contact with other hot fluids, initial encounter; Y99.0 Civilian activity done for income or pay; Z79.82 Long term (current) use of aspirin; Z79.899 Other long term (current) drug therapy
CPT/HCPCS: 11042; 99213; G0463

== ENCOUNTER 2024-08-01 15:35 | Emergency (ER) | payer MEDICAID, SELFPAY ==
[2024-08-01 15:35] VITALS: BP 126/92; PULSE 86; RESP 16; TEMP 35.9; O2SAT 99; BMI 21.4
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
== END 2024-08-01 16:14 | disposition home or self-care (01) ==
PROVIDERS: Emergency Provider Emergency Medicine; PCP Internal Medicine; Referring Provider Emergency Medicine; Visit Provider Emergency Medicine
DX: F07.81 Postconcussional syndrome (principal); J43.9 Emphysema, unspecified; B20 Human immunodeficiency virus [HIV] disease; G44.309 Post-traumatic headache, unspecified, not intractable; F17.210 Nicotine dependence, cigarettes, uncomplicated; Z79.52 Long term (current) use of systemic steroids; Z79.82 Long term (current) use of aspirin; Z79.899 Other long term (current) drug therapy
CPT/HCPCS: 99282

== ENCOUNTER → 2024-08-13 | Outpatient (CLI) | payer MEDICAID, SELFPAY ==
[2024-08-13 12:09] LABS: Absolute Lymphocyte Count 2.19 X10^3/uL (0.83-4.51); Absolute Neutrophil Count 3.4 X10^3/uL (2.0-7.7); Basophil# 0.05 X10^3/uL; Basophil% 0.8 % (0-1); Eosinophil# 0.09 X10^3/uL; Eosinophils% 1.5 % (0-5); Hematocrit 43.7 % (37-47); Hemoglobin 14.2 g/dL (12.0-15.0); Lymphocyte # 2.19 X10^3/ul (0.83-4.51); Lymphocyte % 35.7 % (19-41); Mean Corp Hgb Conc 32.5 g/dL (32-36); Mean Corpuscular Hgb 33.6 pg (27.0-32.0); Mean Corpuscular Volume 103.3 fL (81-99); Mean Platelet Vol. 11.2 fl (6.2-12.0); Monocyte# 0.37 X10^3/uL; NRBC Flagged by Analyzer 0 % (0-5); Neutrophil # 3.42 X10^3/uL (2.7-7.7); Neutrophil % 55.7 % (47-70); Platelet Count 250 K/mm3 (150-450); RBC Distribution Width CV 12.4 % (11.6-14.6); RBC Distribution Width SD 47.4 fl (35.1-43.9); Red Blood Count 4.23 M/mm3 (4.2-5.4); White Blood Count 6.1 K/mm3 (4.4-11.0)
[2024-08-13 12:57] LABS: ALB/GLOB Ratio 0.9 RATIO (0.9-2.4); AST(SGOT) 10 U/L (15-37); Alanine Aminotransfer ALT/SGPT 13 U/L (13-56); Albumin, Serum 3.7 g/dL (3.2-5.0); Alkaline Phosphatase 92 U/L (45-117); Anion Gap 5 (5-15); BUN 13 mg/dL (7-18); BUN/Creat Ratio 12.1 RATIO (10-20); Calcium,Total 9.5 mg/dL (8.5-10.1); Chloride 108 mmol/L (98-107); Cholesterol 129 mg/dL (200); Creatinine, Serum 1.07 mg/dL (0.55-1.02); EST Glomerular Filtration Rate 56 mL/min (>60); Est Glom Filt Rate - Afr Amer 68 mL/min (>60); Globulin 3.9 g/dL (2.2-4.2); Glucose 93 mg/dL (74-106); High Density Lipoprotein 55 mg/dL; Potassium 4.5 mmol/L (3.5-5.1); Protein, Total 7.6 g/dL (6.4-8.2); Sodium Level 141 mmol/L (136-145); Triglycerides 130 mg/dL; Very Low Density Lipoprotein 26 mg/dL (5-40)
== END | disposition home or self-care (01) ==
LOC: BIMLAB 11:02
PROVIDERS: PCP Internal Medicine; Referring Provider Internal Medicine; Visit Provider Internal Medicine
DX: Z00.00 Encounter for general adult medical examination without abnormal findings (principal)
CPT/HCPCS: 36415; 80053; 80061; 85025

== ENCOUNTER → 2024-09-11 | Outpatient (CLI) | payer MEDICAID, SELFPAY ==
--- NOTE | 2024-09-11 12:24 | CT_ITS ---
PROCEDURE: LOW DOSE CT LUNG SCREENING REASON FOR EXAM: Patient has smoked between 1-4 packs per day for 44 years. TECHNIQUE: Low Dose CT Lung Screening without contrast COMPARISON: Comparison is made with prior study dated August 30, 2023. FINDINGS: Bilateral breast implants. Nodules described below are on series 1 unless otherwise specified. Pulmonary Nodules: Stable 4.5 mm pleural-based nodule in the posterior aspect of the right upper lobe as seen on axial image number 39 Hardware:None Lymph Nodes:No mediastinal hilar or axillary lymphadenopathy. Heart and Vasculature:Normal heart size. No pericardial effusion.Atherosclerotic calcifications of the thoracic aorta. Thoracic aorta and pulmonary arteries have normal contours; noncontrast technique limits evaluation. Coronary Artery Calcifications: Absent Lungs and Airways: Mild emphysematous changes are present. Pleura:No pleural effusion. No pneumothorax. Upper Abdomen:Visualized portions of the upper abdominal viscera are unremarkable. Bones:Degenerative changes of the thoracic spine. CT/Low Dose CT Lung Screening IMPRESSION: 1. BASED ON THE ACR LUNG RADS FOR THE MOST SUSPICIOUS NODULE (IF ANY) DESCRIBE D IN THIS REPORT, THE OVERALL LUNG RADS SCORE IS 2.2 - BENIGN (BASED ON IMAGING FEATURES OR INDOLENT BEHAVIOR). RECOMMEND 12-MON TH SCREENING LDCT.. 2. SMOKING CESSATION COUNSELING IS RECOMMENDED IF THE PATIENT IS STILL SMOKING . 3. OTHER SIGNIFICANT FINDINGSNone. One or more dose reduction techniques were used (e.g., Automated exposure contr ol, adjustment of the mA and/or kV according to patient size, use of iterative reconstruction technique). The following information is provided for reference:Lung-RADS 2021 Assessment C ategories. Additional information involving Lung-RADS is available at www.acr.org. 0-INCOMPLETE 1-NEGATIVE:No nodules or definitely benign nodules. Complete, central, popcorn , or centric ring calcifications OR fat containing 2-BENIGN APPEARANCE (based on imaging features or indolent behavior). Juxtaple ural nodule: < 10mm AND solid; smooth margins; oval, entiform, or triangular shape Solid nodule: <6mm at baseline or new< 4mm Part solid Nodule: < 6mm total mean diameter at baseline Nonsolid nodule:(GGN) < 30mm OR >=30mm stable or slowly growing Airway nodule, subsegmental at baseline, new, or stable Category 3 nodule stabl e or decreased in size at 6-month follow-up CT or Category 3 or 4A nodules that resolve on follow-up OR category 4B findings prov en to be benign following diagnotic work up. 3 - Probably Benign (Based on imaging features or behavior) Solid Nodule: >= 6 to <8mm at baseline OR new 4 to <6mm Part-solid nodule: >= 6mm toal mean diam. with solid component <6mm at baseline OR new < 6mm total mean diam. Non-solid nodule: GGN >= 30mm at baseline or new Atypical pulmonary cyst: Growing cystic component (mean diam.) of thick-walled cyst Category 4A nodule stable or decreased in size at 3-month follow-up CT (excl.ai rway). 4A - Suspicious Solid nodule: >=8 to < 15mm at baseline OR growing < 8mm OR new 6 to < 8mm Part solid nodule: >= 6mm total mean diam. w/ solid component >=6mm to < 8mm at baseline OR new or growing < 4mm solid component Airway nodule, segmental or more proximal at baseline or new Atypical pulmonary cyst: Thick-walled OR multilocular at baseline OR becomes mu ltilocular 4B - Very Suspicious Airway nodule, segmental or more proximal, and stable or growing Solid nodule: >= 15mm at baseline OR new or growing >= 8mm Part solid nodule: Solid component >= 8mm OR new or growing >= 4mm solid compon ent Atypical pulmonary cyst: Thick-walled with growing wall thickness/nodularity OR Growing multilocular (mean diam.) OR Multilocular with increased loculation or new/increased opacity Slow-growing solid or part solid nodule w/ growth over multiple screening exams 4X - Very Suspicious Category 3 or 4 nodules with additional features that increase the suspicion fo r lung cancer. S - Clinically Significant or potentially significant findings (non-lung cancer ) 3. OTHER SIGNIFICANT FINDINGSNone. One or more dose reduction techniques were used (e.g., Automated exposure contr ol, adjustment of the mA and/or kV according to patient size, use of iterative reconstruction technique). The following information is provided for reference:Lung-RADS 2021 Assessment C ategories. Additional information involving Lung-RADS is available at www.acr.org. 0-INCOMPLETE 1-NEGATIVE:No nodules or definitely benign nodules. Complete, central, popcorn , or centric ring calcifications OR fat containing 2-BENIGN APPEARANCE (based on imaging features or indolent behavior). Juxtaple ural nodule: < 10mm AND solid; smooth margins; oval, entiform, or triangular shape Solid nodule: <6mm at baseline or new< 4mm Part solid Nodule: < 6mm total mean diameter at baseline Nonsolid nodule:(GGN) < 30mm OR >=30mm stable or slowly growing Airway nodule, subsegmental at baseline, new, or stable Category 3 nodule stabl e or decreased in size at 6-month follow-up CT or Category 3 or 4A nodules that resolve on follow-up OR category 4B findings prov en to be benign following diagnotic work up. 3 - Probably Benign (Based on imaging features or behavior) Solid Nodule: >= 6 to <8mm at baseline OR new 4 to <6mm Part-solid nodule: >= 6mm toal mean diam. with solid component <6mm at baseline OR new < 6mm total mean diam. Non-solid nodule: GGN >= 30mm at baseline or new Atypical pulmonary cyst: Growing cystic component (mean diam.) of thick-walled cyst Category 4A nodule stable or decreased in size at 3-month follow-up CT (excl.ai rway). 4A - Suspicious Solid nodule: >=8 to < 15mm at baseline OR growing < 8mm OR new 6 to < 8mm Part solid nodule: >= 6mm total mean diam. w/ solid component >=6mm to < 8mm at baseline OR new or growing < 4mm solid component Airway nodule, segmental or more proximal at baseline or new Atypical pulmonary cyst: Thick-walled OR multilocular at baseline OR becomes mu ltilocular 4B - Very Suspicious Airway nodule, segmental or more proximal, and stable or growing Solid nodule: >= 15mm at baseline OR new or growing >= 8mm Part solid nodule: Solid component >= 8mm OR new or growing >= 4mm solid compon ent Atypical pulmonary cyst: Thick-walled with growing wall thickness/nodularity OR Growing multilocular (mean diam.) OR Multilocular with increased loculation or new/increased opacity Slow-growing solid or part solid nodule w/ growth over multiple screening exams 4X - Very Suspicious Category 3 or 4 nodules with additional features that increase the suspicion fo r lung cancer. S - Clinically Significant or potentially significant findings (non-lung cancer ) Reading Location: [id number]
== END | disposition home or self-care (01) ==
LOC: CT 12:24
PROVIDERS: PCP Internal Medicine; Referring Provider Nurse Practitioner Family; Visit Provider Nurse Practitioner Family
DX: Z12.2 Encounter for screening for malignant neoplasm of respiratory organs (principal); Z87.891 Personal history of nicotine dependence
CPT/HCPCS: 71271

== ENCOUNTER → 2024-09-12 | Outpatient (CLI) | payer MEDICAID, SELFPAY ==
[2024-09-12 13:08] LABS: Anion Gap 11 (5-15); BUN 15 mg/dL (4-19); BUN/Creat Ratio 13.1 RATIO (10-20); Calcium 9.4 mg/dL (7.6-11.0); Carbon Dioxide 25.3 mmol/L (22.0-29.0); Chloride 103 mmol/L (96-108); Creatinine, Serum 1.2 mg/dL (0.6-1.0); EST Glomerular Filtration Rate 55 (>60); Glucose 96 mg/dL (70-99); Potassium 4.4 mmol/L (3.3-5.1); Sodium Level 140 mmol/L (133-145)
== END | disposition home or self-care (01) ==
LOC: BIMLAB 10:40
PROVIDERS: PCP Internal Medicine; Referring Provider Internal Medicine; Visit Provider Internal Medicine
DX: N28.9 Disorder of kidney and ureter, unspecified (principal)
CPT/HCPCS: 36415; 80048

== ENCOUNTER → 2024-09-14 | Outpatient (CLI) | payer MEDICAID, SELFPAY ==
--- NOTE | 2024-09-14 11:40 | RAD_ITS ---
PROCEDURE: L/S SPINE MIN 4 VIEWS REASON FOR EXAM: Low back pain TECHNIQUE: AP lateral and oblique views of the lumbar spine COMPARISON: None. FINDINGS: Normal vertebral heights. No evidence of fracture. Mild multilevel disc space narrowing. Mild facet arthropathy. Normal alignment. No spondylolisthesis. RAD/L/S Spine Min 4 Views IMPRESSION: Multilevel degenerative changes of the lumbar spine with no acute osseous abnor mality. Reading Location: [place]
== END | disposition home or self-care (01) ==
LOC: RAD 11:25
PROVIDERS: PCP Internal Medicine; Referring Provider Internal Medicine; Visit Provider Internal Medicine
DX: M54.50 Low back pain, unspecified (principal); G89.29 Other chronic pain
CPT/HCPCS: 72110

== ENCOUNTER 2024-09-25 16:40 | Emergency (ER) | payer MEDICAID, SELFPAY ==
[2024-09-25 16:41] VITALS: BP 123/100; PULSE 73; RESP 18; TEMP 36.1; O2SAT 100; BMI 22.1
--- NOTE | 2024-09-25 19:29 | ED.RN ---
pt upset about wait time. demanding to speak to a duct layer supervisor. informed pt that ed director is not here at the moment, but can get with zinc furnace charger to discuss pt concerns. Regina Peoples RN out to discuss with pt about wait time. I have bone disease and I need to know if i have a fracture states she is patient but wait time is ridiculous. This RN and zinc furnace charger discussed ED protocols, and ED bed assignment is based on pt severity. Informed pt that she is able to leave at any point if she feels she needs to do so. Pt back to waiting room.
[2024-09-25 20:41] VITALS: BP 122/89; PULSE 67; RESP 18; O2SAT 98
--- NOTE | 2024-09-25 21:01 | CT_ITS ---
EXAM: CT brain without IV contrast CLINICAL HISTORY: HEAD INJURY COMPARISON: None TECHNIQUE: Multiple contiguous axial images of the brain were obtained without the administration of intravenous contrast. Two-dimensional coronal and sagittal reformatted images were reconstructed. Low-dose imaging technique was utilized. FINDINGS: Asymmetric generalized left cerebral atrophy. No evidence of acute intracranial hemorrhage, midline shift or mass effect. No definite CT evidence of acute territorial cortical infarction. No hydrocephalus. Calvarium is intact. Paranasal sinuses and mastoid air cells are clear. CT/Brain/Head without Contrast IMPRESSION: No acute intracranial abnormality. Asymmetric left cerebral atrophy. Reading Location: [facility]
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
[2024-09-25 21:49] VITALS: BP 114/89; PULSE 75; RESP 18; TEMP 36.8; O2SAT 98
== END 2024-09-25 21:57 | disposition home or self-care (01) ==
PROVIDERS: Emergency Provider Emergency Medicine; PCP Internal Medicine; Visit Provider Emergency Medicine
DX: S09.90XA Unspecified injury of head, initial encounter (principal); B20 Human immunodeficiency virus [HIV] disease; W22.09XA Striking against other stationary object, initial encounter; M81.0 Age-related osteoporosis without current pathological fracture; F17.210 Nicotine dependence, cigarettes, uncomplicated; Z79.899 Other long term (current) drug therapy
CPT/HCPCS: 36415; 70450; 77080; 80048; 82607; 85027; 86361; 87536; 99282

== ENCOUNTER → 2024-09-25 | Outpatient (CLI) | payer MEDICAID, SELFPAY ==
[2024-09-25 10:31] LABS: Hematocrit 41.7 % (37-47); Hemoglobin 14.1 g/dL (12.0-15.0); Mean Corp Hgb Conc 33.8 g/dL (32-36); Mean Corpuscular Hgb 34.1 pg (27.0-32.0); Mean Corpuscular Volume 100.7 fL (81-99); Mean Platelet Vol. 10.9 fl (6.2-12.0); Platelet Count 222 K/mm3 (150-450); RBC Distribution Width CV 12.7 % (11.6-14.6); RBC Distribution Width SD 47.7 fl (35.1-43.9); Red Blood Count 4.14 M/mm3 (4.2-5.4)
[2024-09-25 12:01] LABS: Anion Gap 11 (5-15); BUN 11 mg/dL (4-19); BUN/Creat Ratio 10.4 RATIO (10-20); Calcium,Total 9.4 mg/dL (7.6-11.0); Carbon Dioxide 23.2 mmol/L (21.0-32.0); Chloride 105 mmol/L (98-108); Creatinine, Serum 1.05 mg/dL (0.70-1.20); EST Glomerular Filtration Rate 62 (>60); Glucose 83 mg/dL (70-99); Potassium 4.4 mmol/L (3.3-5.1); Sodium Level 139 mmol/L (133-145)
[2024-09-25 23:18] LABS: Vitamin B12 280 pg/mL (180-914)
[2024-09-26 18:08] LABS: Absolute CD4 Helper 1083 /uL (359-1519); Basophils (Absolute) 0.1 x10E3/uL (0.0-0.2); Eosinophils 2 % (Not Estab.); Eosinophils (Absolute) 0.2 x10E3/uL (0.0-0.4); Hemoglobin 14.4 g/dL (11.1-15.9); Immature Granulocytes 0 % (Not Estab.); Immature Granulocytes Absolute 0 x10E3/uL (0.0-0.1); Lymphs 29 % (Not Estab.); Lymphs (Absolute) 2.3 x10E3/uL (0.7-3.1); MCH 33.9 pg (26.6-33.0); MCHC 32.7 g/dL (31.5-35.7); MCV 104 fL (79-97); Monocytes 6 % (Not Estab.); Monocytes (Absolute) 0.5 x10E3/uL (0.1-0.9); Neutrophils 62 % (Not Estab.); Percent % CD4 Pos. Lymph. 47.1 % (30.8-58.5); Platelets 231 x10E3/uL (150-450); RBC Count 4.25 x10E6/uL (3.77-5.28); RDW 12.4 % (11.7-15.4); WBC Count 8.1 x10E3/uL (3.4-10.8)
[2024-09-27 07:07] LABS: HIV-1 RNA by PCR, Quant. < 20 copies/mL (.)
== END | disposition home or self-care (01) ==
LOC: LAB 09:47
PROVIDERS: PCP Internal Medicine; Referring Provider Internal Medicine Infectious Disease; Visit Provider Internal Medicine Infectious Disease
DX: Z21 Asymptomatic human immunodeficiency virus [HIV] infection status (principal); D75.89 Other specified diseases of blood and blood-forming organs
CPT/HCPCS: 36415; 80048; 82607; 85027; 86361; 87536

== ENCOUNTER → 2024-09-25 | Outpatient (CLI) | payer MEDICAID, SELFPAY ==
--- NOTE | 2024-09-25 09:21 | BD_ITS ---
PROCEDURE: DEXA BONE DENSITY STUDY REASON FOR EXAM: SCREENING FOR OSTEOPOROSIS F, age 54 y/o . Postmenopausal. TECHNIQUE: DEXA scan of the lumbar spine and both hips. COMPARISON: None. FINDINGS: Lumbar Spine (L1-L4): g/cm2 (0.762)/T-score (-2.6)/Z-score (-1.4) findings are suggestive of osteoporotic with a high fracture risk. Left Femur Total: g/cm2 (0.682)/T-score (-2.1)/Z-score (-1.4) Left Femoral Neck: g/cm2 (0.545)/T-score (-2.7)/Z-score (-1.6) Right Femur Total: g/cm2 (0.611)/T-score (-2.7)/Z-score (-1.9) Right Femoral Neck: g/cm2 (0.506)/T-score (-3.1)/Z-score (-2.0) BD/Dexa Bone Density Study IMPRESSION: The patient is considered osteoporotic as outlined below according to [employer] Hea [employer] (WHO) criteria with a high fracture risk. Reading Location: [place] [id number]
== END | disposition home or self-care (01) ==
PROVIDERS: PCP Internal Medicine; Referring Provider Internal Medicine; Visit Provider Internal Medicine
DX: Z13.820 Encounter for screening for osteoporosis (principal); Z78.0 Asymptomatic menopausal state
CPT/HCPCS: 77080

== ENCOUNTER → 2024-10-04 | Outpatient (CLI) | payer MEDICAID, SELFPAY | END | disposition home or self-care (01) | LOC: LAB 10:51 | PROVIDERS: PCP Internal Medicine; Referring Provider Otolaryngology Otolaryngology/Facial Plastic Surgery; Visit Provider Otolaryngology Otolaryngology/Facial Plastic Surgery | DX: T78.40XA Allergy, unspecified, initial encounter (principal) | CPT/HCPCS: 36415; 86003; 86005 ==

== ENCOUNTER → 2024-11-05 | Outpatient (CLI) | payer MEDICAID, SELFPAY ==
--- NOTE | 2024-11-05 09:07 | BI_ITS ---
EXAM: DIAG MAMM W/CAD, BILAT N/A CLINICAL HISTORY: F, Age 54 y/o , ABNORMAL SCREENING MAMMOGRAM. Right breast mass. Short-term follow-up exam. Evaluate. Document stability. Patient has bilateral breast implants. Routine yearly screening mammography left breast. TECHNIQUE: Bilateral Diagnostic digital breast tomosynthesis with 2D and 3D images. Pushback Fernando CC and pushback Fernando MLO views of the right and left breast were also performed. Computer aided detection. COMPARISON: Prior mammogram exam(s) dated 05/17/2023 and 09/13/2022. A right breast ultrasound dated 05/17/2023 was also reviewed.. FINDINGS: TISSUE DENSITY: The breast tissue is composed of scattered area of fibroglandular density. Bilateral Breast Mammographic Findings: There is a stable 1 cm mass in the inferior medial aspect of the right breast. The patient has also been scheduled for an ultrasound examination for further evaluation of the mass. Please see that report. The right breast implant appears to be intact. The left breast implant appears to be intact. There are no suspicious masses, suspicious clusters of microcalcifications, architectural distortion or secondary signs of malignancy identified in the left breast. BI/DIAG MAMM W/CAD, BILAT IMPRESSION: OVERALL FINAL ASSESSMENT: BIRADS 0 Incomplete: Need additional imaging evaluati on and/or prior mammograms for comparison.. RECOMMENDATION: Ultrasound. A letter with findings and recommendations will be mailed to the patient. Reading Location: [id number]
--- NOTE | 2024-11-05 09:07 | US_ITS ---
PROCEDURE: BREAST LIMITED UNILATERAL 11/05/2024 REASON FOR EXAM: ABNORMAL SCREENING MAMMOGRAM right breast mass. Short-term follow-up exam. Evaluate. Document stability. TECHNIQUE: Targeted left breast ultrasound. COMPARISON: Mammogram studies dated 11/05/2024 FINDINGS: There is a stable solid hypoechoic mass identified in the right breast at the 4 o'clock, 3 cm from the nipple position measuring 5 x 4 x 2 mm. This mass is wider than it is tall it does not produce any posterior shadowing. It does correlate to the mass seen on the mammogram. Incidentally noted while scanning of the right breast is a benign-appearing tubular hypoechoic masslike structure at the 1 o'clock, 2 cm from the nipple position measuring 8 x 8 x 2 mm. This mass is wider than it is tall and does not produce any posterior shadowing. Short-term six-month follow-up ultrasound is recommended to document stability. US/Breast Limited Unilateral IMPRESSION: Impression: There is a stable mass in the right breast at the 4 o'clock positio n. There is also a additional mass seen which has primarily benign features. Short-term six-month follow-up ultrasound of the ma ss at the 1 o'clock position is recommended to document stability. Birads: BI-RADS 3: PROBABLY BENIGN. Reading Location: [id number]
== END | disposition home or self-care (01) ==
LOC: OPBI 09:06
PROVIDERS: PCP Internal Medicine; Referring Provider Internal Medicine; Visit Provider Internal Medicine
DX: R92.8 Other abnormal and inconclusive findings on diagnostic imaging of breast (principal)
CPT/HCPCS: 77062; 76642; 77066; G0279

== ENCOUNTER 2024-11-26 07:02 | Emergency (ER) | payer MEDICAID, SELFPAY ==
[2024-11-26 07:02] VITALS: BP 128/97; PULSE 65; RESP 13; TEMP 36.8; O2SAT 100; BMI 22.1
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
--- NOTE | 2024-11-26 07:37 | RAD_ITS ---
PROCEDURE: CHEST PA AND LATERAL 11/26/2024 REASON FOR EXAM: COUGH History of emphysema. TECHNIQUE: Frontal and lateral views of the chest. COMPARISON: Comparison is made with prior study dated March 18, 2022. FINDINGS: Hardware: EKG electrodes are seen. Heart: The heart is not enlarged. Mediastinum: Unremarkable Lungs: There are chronic-appearing changes of both lungs. Hyperinflation and emphysematous changes. Bones: Osteopenia of the thoracic vertebrae. RAD/Chest PA and Lateral IMPRESSION: Hyperinflation and COPD. No acute abnormality is seen. Reading Location: [id number]
[2024-11-26] MEDS: Ipratropium/Albuterol Sulfate 3 ML AMPUL.NEB INHALATION (07:46)
[2024-11-26 07:47] VITALS: PULSE 60; RESP 16
[2024-11-26] MEDS: 0.9% Normal Saline (1000mL) 1,000 ML 1000 ML IV (07:50)
[2024-11-26 08:00] LABS: Absolute Lymphocyte Count 2.03 X10^3/uL (0.83-4.51); Absolute Neutrophil Count 3.4 X10^3/uL (2.0-7.7); Basophil# 0.05 X10^3/uL; Basophil% 0.8 % (0-1); Eosinophil# 0.13 X10^3/uL; Eosinophils% 2.2 % (0-5); Hematocrit 39.9 % (37-47); Hemoglobin 13.7 g/dL (12.0-15.0); Lymphocyte # 2.03 X10^3/ul (0.83-4.51); Lymphocyte % 33.7 % (19-41); Mean Corp Hgb Conc 34.3 g/dL (32-36); Mean Corpuscular Hgb 34.8 pg (27.0-32.0); Mean Corpuscular Volume 101.3 fL (81-99); Monocyte# 0.38 X10^3/uL; Monocyte% 6.3 % (0-10); NRBC Flagged by Analyzer 0 % (0-5); Neutrophil # 3.43 X10^3/uL (2.7-7.7); Neutrophil % 56.8 % (47-70); Platelet Count 207 K/mm3 (150-450); RBC Distribution Width CV 12.6 % (11.6-14.6); RBC Distribution Width SD 47.6 fl (35.1-43.9); Red Blood Count 3.94 M/mm3 (4.2-5.4)
[2024-11-26 08:02] VITALS: BP 113/80; PULSE 71; RESP 16; O2SAT 99
[2024-11-26 08:28] LABS: Anion Gap 9 (5-15); BUN 12 mg/dL (4-19); BUN/Creat Ratio 11.4 RATIO (10-20); Carbon Dioxide 24.4 mmol/L (21.0-32.0); Chloride 107 mmol/L (98-108); Creatinine, Serum 1.06 mg/dL (0.70-1.20); EST Glomerular Filtration Rate 62 (>60); Estimated Creatinine Clearance 46.87 ml/min (50-250); Glucose 89 mg/dL (70-99); Potassium 3.9 mmol/L (3.3-5.1); Sodium Level 140 mmol/L (133-145)
[2024-11-26 09:00] VITALS: BP 120/87; PULSE 82; RESP 16; O2SAT 98
[2024-11-26 10:21] VITALS: BP 100/63; PULSE 60; RESP 16; O2SAT 100
[2024-11-26 10:49] VITALS: BP 94/68; PULSE 68; RESP 15; TEMP 36.6; O2SAT 99
== END 2024-11-26 10:50 | disposition home or self-care (01) ==
PROVIDERS: Emergency Provider Emergency Medicine; PCP Internal Medicine; Visit Provider Emergency Medicine
DX: J44.9 Chronic obstructive pulmonary disease, unspecified (principal); Z21 Asymptomatic human immunodeficiency virus [HIV] infection status; J06.9 Acute upper respiratory infection, unspecified; F17.210 Nicotine dependence, cigarettes, uncomplicated
CPT/HCPCS: 71046; 80048; 85025; 87631; 94640; 96360; 96361; 99284; A4216

== ENCOUNTER 2025-02-07 11:09 | Emergency (ER) | payer OTHER, MEDICAID, SELFPAY ==
[2025-02-07 11:10] VITALS: BP 114/83; PULSE 90; RESP 18; TEMP 36.1; O2SAT 99; BMI 22.3
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
[2025-02-07 12:00] VITALS: BP 114/83; PULSE 90; RESP 18; TEMP 36.1; O2SAT 99
== END 2025-02-07 12:05 | disposition home or self-care (01) ==
PROVIDERS: Emergency Provider Emergency Medicine; PCP Internal Medicine; Visit Provider Emergency Medicine
DX: S06.0X0A Concussion without loss of consciousness, initial encounter (principal); B20 Human immunodeficiency virus [HIV] disease; F17.210 Nicotine dependence, cigarettes, uncomplicated; W22.09XA Striking against other stationary object, initial encounter; Y93.89 Activity, other specified; Y99.0 Civilian activity done for income or pay; Y92.511 Restaurant or cafe as the place of occurrence of the external cause; Z79.899 Other long term (current) drug therapy
CPT/HCPCS: 99282

== ENCOUNTER 2025-03-08 08:40 | Emergency (ER) | payer MEDICAID, SELFPAY ==
[2025-03-08 08:41] VITALS: BP 135/99; PULSE 56; RESP 18; TEMP 36.8; O2SAT 100; BMI 22.4
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
[2025-03-08] MEDS: 0.9% Normal Saline (1000mL) 1,000 ML 999 ML IV (09:16)
[2025-03-08 09:32] LABS: Hematocrit 39.9 % (37-47); Hemoglobin 13.7 g/dL (12.0-15.0); Immature Granulocytes Count 0.010 X10^3/uL (0.0-0.0); Mean Corp Hgb Conc 34.3 g/dL (32-36); Mean Corpuscular Volume 99.8 fL (81-99); Mean Platelet Vol. 10.7 fl (6.2-12.0); NRBC Flagged by Analyzer 0 % (0-5); Platelet Count 198 K/mm3 (150-450); RBC Distribution Width CV 12.4 % (11.6-14.6); RBC Distribution Width SD 45.2 fl (35.1-43.9); Red Blood Count 4.00 M/mm3 (4.2-5.4); White Blood Count 5.8 K/mm3 (4.4-11.0)
[2025-03-08 09:38] LABS: AST(SGOT) 19 U/L (<=31); Alanine Aminotransfer ALT/SGPT 7 U/L (<=34); Albumin, Serum 4.2 g/dL (3.5-5.0); Alkaline Phosphatase 74 U/L (35-104); Anion Gap 11 (5-15); BUN 9 mg/dL (4-19); BUN/Creat Ratio 9.2 RATIO (10-20); Calcium,Total 8.9 mg/dL (7.6-11.0); Carbon Dioxide 24.5 mmol/L (21.0-32.0); Chloride 106 mmol/L (98-108); Estimated Creatinine Clearance 52.22 ml/min (50-250); Globulin 2.4 g/dL (2.2-4.2); Glucose 94 mg/dL (70-99); Lipase 22 U/L (13-75); Potassium 3.8 mmol/L (3.3-5.1)
[2025-03-08 09:48] LABS: Mucous, Urine 0 SEEN /hpf (<or=2+); Red Blood Cells-Urine 0 SEEN /hpf (0-5)
[2025-03-08 09:55] LABS: Color, Urine Yellow (Yellow); Glucose, Dipstick Normal (Normal); Ketone-Dipstick Negative (Negative); Leukocyte Esterase-Dipstick Negative /ul (Negative); Nitrite-Dipstick Negative (Negative); Occult Blood-Urine Negative /ul (Negative); Protein-Dipstick Negative (Negative); Specific Gravity, Urine 1.010 (1.002-1.030); Urine Bilirubin Dipstick Negative (Negative)
[2025-03-08 10:01] LABS: Squamous Epithelial Cells - UA 0-5 SEEN /hpf (5-10)
--- NOTE | 2025-03-08 10:05 | CT_ITS ---
PROCEDURE: ABDOMEN/PELVIS W IV CONT ONLY 03/08/2025 REASON FOR EXAM: ABDOMINAL PAIN TECHNIQUE: ABDOMEN/PELVIS W IV CONT ONLY Coronal and Sagittal reconstruction series were provided. CONTRAST: Isovue 370 VOLUME: 100 mL One or more dose reduction techniques were used (e.g., Automated exposure control, adjustment of the mA and/or kV according to patient size, use of iterative reconstruction technique. RADIATION DOSE SUMMARY: CTDlvol: 28 mGy DLP: 328 mGycm COMPARISON: None FINDINGS: Lung bases: Subsegmental atelectasis medial segment right middle lobe. Liver: Small cysts segment 2 of the liver is benign. Gallbladder: Mild circumferential thickening and enhancement of the gallbladder near the fundus. No cystic spaces seen. No calculi are present. No pericholecystic fluid identified. Common bile duct is mildly dilated to 8.4 mm. No filling defects seen. Spleen: Normal. Pancreas: No pancreas divisum is seen. No main duct dilation. No glandular atrophy or mass. Adrenals: Normal Kidneys: Water density cysts at the superior pole kidney is 5.9 cm round. Smaller cyst at the superior pole right kidney is a proximally 1.4 x 1.2 cm. No collecting system dilation or calculus present. Bladder: Normal Reproductive Organs: Uterus is anteverted. Right ovary is normal. Thin, incomplete rim calcification is seen associated with a right left ovarian cyst measuring 1.8 x 1.8 x 1.3 cm. Bowel: Normal Appendix: Normal Lymph nodes: None appear enlarged. Vasculature: Moderate atherosclerotic plaque without aneurysm. Peritoneum / Retroperitoneum: No free air, free fluid or mass. Bones: Osteoarthritis of the right hip. Mild lower lumbar facet hypertrophy. CT/Abdomen/Pelvis W IV Cont ONLY IMPRESSION: 1. Mild circumferential thickening involving the gallbladder near the fundus. Adenomyomatosis versus neoplasia. Nonemergent ultrasound could be performed the show wall thickening and the potential for cy stic spaces that are more characteristic of adenomyomatosis. No calculus seen. Stability from an outside exam may also be helpful. Mild dilation common bile duct. No choledocholithiasis. Correlate with laboratory indices. 2. Complex left ovarian cyst. Nonemergent pelvic ultrasound or MRI may be hel pful to fully characterize. 3. Simple bilateral renal cysts with the largest at the left upper pole. Bosn iak 1. No follow-up required. 4. No acute abnormality. Reading Location: [id number]
[2025-03-08 10:59] VITALS: BP 105/69; PULSE 56; RESP 15; O2SAT 99
[2025-03-08 11:30] VITALS: BP 141/79; PULSE 60; RESP 16; TEMP 36.6; O2SAT 100
== END 2025-03-08 11:32 | disposition home or self-care (01) ==
PROVIDERS: Emergency Provider Emergency Medicine; PCP Internal Medicine; Visit Provider Emergency Medicine
DX: R10.9 Unspecified abdominal pain (principal); J43.9 Emphysema, unspecified; Z21 Asymptomatic human immunodeficiency virus [HIV] infection status; R11.2 Nausea with vomiting, unspecified; F17.210 Nicotine dependence, cigarettes, uncomplicated; M54.9 Dorsalgia, unspecified; R07.89 Other chest pain; Z79.899 Other long term (current) drug therapy
CPT/HCPCS: 74177; 80053; 81001; 83690; 85025; 96361; 96374; 99283; Q9967; A4216; J2405

== ENCOUNTER 2025-03-15 15:38 | Emergency (ER) | payer MEDICAID, SELFPAY ==
[2025-03-15 15:40] VITALS: BP 117/93; PULSE 86; RESP 16; TEMP 36.8; O2SAT 100; BMI 22.4
== END 2025-03-15 16:10 | disposition left against medical advice (07) ==
LOC: ED 16:12
PROVIDERS: PCP Internal Medicine
DX: R11.0 Nausea (principal)

== ENCOUNTER 2025-03-15 17:05 | Emergency (ER) | payer MEDICAID, SELFPAY ==
[2025-03-15 17:06] VITALS: BP 111/88; PULSE 87; RESP 18; TEMP 37.1; O2SAT 99; BMI 22.4
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
--- OUTSIDE RECORDS SUMMARY | 2025-03-15 19:03 | XMS RPT_ITS | CCD ---
Author Organization [facility] CliniSyfl Care Team Providers Care Heel Lining Paster Name Role Phone Prudencio Pedro MD Primary Care Provider Dr. Segundo Pedro Primary Care Provider Taylor MACHINE CARTON MARKER, MACHINE CARTON MARKER-C Nam[place] Attending Provider Taylor MACHINE CARTON MARKER, MACHINE CARTON MARKER-C [place] Referring Provider Prudencio Pedro MD Primary Care Provider Dr. Segundo Newell Referring Provider Taylor MACHINE CARTON MARKER, MACHINE CARTON MARKER-C [place] Attending Provider Dr. Segundo Pedro Primary Care Provider Prudencio Pedro MD Primary Care Provider Prudencio Pedro MD Primary Care Provider Unavailable Primary Care Provider Aman Moser MD Primary Care Provider Dr. Hung Cai MD Attending Provider Dr. Hung Cai MD Referring Provider Dr. Hung Cai MD Emergency Provider Dr. Aman Iraheta MD Primary Care Provider Dr. Segundo Pedro MD Referring Provider Dr. Aman Iraheta MD Attending Provider Dr. Aman Iraheta MD Referring Provider Taylor MACHINE CARTON MARKER-C, [place] Attending Provider Taylor MACHINE CARTON MARKER-C, [place] Referring Provider Tamara CHAUDHRY, Dr. Chowdary Attending Provider Tamara CHAUDHRY, Dr. Chowdary Referring Provider Dr. Joselito Nichols DO Emergency Provider Niru CHAUDHRY, Dr. Lucas Serna Attending Provider Niru CHAUDHRY, Dr. Lucas Serna Referring Provider Lawrence Nieves Attending Provider Dr. Joselito Nichols DO Attending Provider Taylor MACHINE CARTON MARKER-C, [place] Referring Provider Dr. Saturnino Mix DO Emergency Provider Myrtle CHAUDHRY, Dr. Newton Primary Care Provider Myrtle CHAUDHRY, Dr. Newton Attending Provider Myrtle CHAUDHRY, Dr. Newton Referring Provider Dr. Saturnino Mix DO Attending Provider Lawrence Nieves Attending Provider Dr. Bella Luciano DO Emergency Provider Lalo Dorantes Attending Provider Myrtle CHAUDHRY, Dr. Newton Primary Care Provider Myrtle CHAUDHRY, Dr. Newton Referring Provider Dr. Bella Luciano DO Attending Provider Myrtle CHAUDHRY, Dr. Newton Attending Provider JULIETA POOLE Attending Unavailable OLEGHE, EFEWONGBE B Primary Care Unavailable PODLOGAR DIAMOND Referring Unavailable OLEGHE, EFEWONGBE B Primary Care Unavailable PODLOGARDIAMOND Referring Unavailable ANAIS METCALF Referring Unavailable OLEGHE, EFEWONGBE B Primary Care Unavailable ANAIS METCALF Referring Unavailable OLEGHE, EFEWONGBE B Primary Care Unavailable PRUDENCIO PEDRO Attending Unavailab le OLEGHE, EFEWONGBE B Primary Care Unavailable MANA RIBEIRO Attending Unavailable OLEGHE, EFEWONGBE B Primary Care Unavailable OLEGHE, EFEWONGBE B Primary Care Unavailable CHANTEL SHAH Attending Unavailable THEODORESUSANGINNY Attending Unavailable OLEGHE, EFEWONGBE B Primary Care Unavailable JOSEP TYSON Attending Unavailable OLEGHE, EFEWONGBE B Primary Care Unavailable ANAIS METCALF Referring Unavailable OLEGHE, EFEWONGBE B Primary Care Unavailable CLICKANAIS M Referring Unavailable OLEGHE, EFEWONGBE B Primary Care Unavailable CLICKANAIS M Attending Unavailable OLEGHE, EFEWONGBE B Primary Care Unavailable Authorizing Provider: ILIANA ALBARADO Pharmacy Information Pharmacy Address [phone] [place] [address] * Telephone Encounter - Iliana Albarado MD - 03/14/2023 3:42 PM EDT Rx sent To be evaluated in office if symptoms worsen or do not improve * Telephone Encounter - Frances Armijo LPN - 03/14/2023 1:22 PM EDT Pt stopped in the office and reports that she was treated for BV through [facility] on 02/17/23 andis now on another antibiotic for bronchitis. Pt is now having yeast sxs for the past couple days and does not have money to purchase Monistat 7. She is asking that something be sent into her pharmacy. [facility]. Please advise. Frances Armijo LPN documented in this encounterKettering [facility]08-28-2023 History of Present illness Narrative* Judith Cassidy MD - 03/14/2023 11:45 AM EDT Images from the original note were not included. . [facility] [place] Note Patient name: Tracy Vazquez PCP: Prudencio [...] No chest pain. No significant shortness of breathor wheezing. She continues to smoke about a pack a day. She did not tolerate nicotine patches as itcaused dizziness. No recent ED visits or hospitalization. Had more trouble with her allergies this season. She continues on immunotherapy and has been using qfph-fgo-hbxbszk antihistamine but she hasnot been using her nasal spray. 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 Mcdonald-ID Persistent cough 07/2022 Tobacco [...] by mouth daily before breakfast. 1/2 hr beforemeal. albuterol HFA (VENTOLIN HFA) 90 mcg/actuation inhaler Inhale 2 Puffs as instructed every 4 hours asneeded. hyfzhqlryfd-etezmllosmgvb-kwhmdcrjp alafenamide (BIKTARVY) 50-200-25 mg per tablet Take 1 tablet bymouth once daily. Social History Tobacco Use Smoking [...] W/PROSTHETIC IMPLANT Bilateral 1995 under the muscle PM, Social history, family history and surgical history [...] be related to acute bronchitis. Symptoms prescription forantibiotic but she does not need oral steroids at this time Emphysema, centrilobular -Smoking cessation strongly encouraged -Continue albuterol as needed -Update pulmonary function testing at next visit Cigarette smoker -Current smoker with sequelae of emphysema -Smoking cessation strongly encouraged -Patient enrolled in lung cancer screening program through [facility]. Due for CT in August Judith Cassidy MD [facility] [place] documented in this encounterKettering [facility]08-07-2023 Miscellaneous Notes* Telephone Encounter - Roxane Lan MA - 02/21/2023 10:50 AM EDT EUGENE 11/17/22 NOV 08/02/22 Roxane Lan MA * Telephone Encounter - Stephenie Lafleur - 02/21/2023 10:18 AM EDT Patient has been identified by name and [...] and advise. Stephenie Lafleur documented in this encounterKettering Health [facility] Center08-03-2023 Miscellaneous Notes* Telephone Encounter - Azalea Betancourt LPN - 02/17/2023 7:20 AM EDT Pt made aware. Azalea Betancourt LPN * Telephone Encounter - Josep Tyson PA - 02/17/2023 7:14 AM EDT Please let patient know she tested positive for bacterial vaginosis. This is not an STD. It is an overgrowth of bacteria. Metronidazole sent to [facility]. Please take all of this medication.Do not drink alcohol while taking this medication. documented in this encounterKettering Health [facility] Center08-02-2023 History of Present illness Narrative* Pam Garibay PA-C - 02/16/2023 3:24 PM EDT This note was created using [employer]. Subjective Tracy Vazquez is a 53 year [...] is clear HIV (human immunodeficiency virus infection) ([facility]) [address] Dr. Mcdonald-ID Persistent cough 07/2022 Tobacco [...] by mouth daily before breakfast. 1/2 hr beforemeal. 30 capsule 2 albuterol HFA (VENTOLIN HFA) 90 mcg/actuation inhaler Inhale 2 Puffs as instructed every 4 hours asneeded. 1 Inhaler 1 wlgxlxhglqs-zgjnhuracxdsn-zpdxwawhz alafenamide (BIKTARVY) 50-200-25 mg per tablet Take 1 tablet bymouth once daily. No current facility-administered medications for [...] CULTURE Pam Garibay PA-C documented in this encounterKettering Health Behavior[facility] Center06-21-2023 Miscellaneous Notes* Telephone Encounter - Jes Harry LPN - 01/05/2023 8:02 AM EDT PATIENT NOTIFIED OF SAME. * Telephone Encounter - Mara Kaiser APRN.CNP - 01/05/2023 7:12 AM EDT Please notify of negative covid test. Continue comfort measures for symptoms as you would for a cold. Any worsening symptoms follow up with PCP or ER. Mara Kaiser APRN.CNP documented in this encounterKettering [facility]05-13-2023 Miscellaneous Notes* Telephone Encounter - Mitzi Ibarra RN - 11/27/2022 8:19 AM EDT Left detailed vm on identified vm with provider's message below. * Telephone Encounter - Prudencio Pedro MD - 11/27/2022 7:59 AM EDT I would not be concerned with ringworm from this injury. Continue current regimen. Treat with triple abx ointment and call with spreading redness, warmth, or drainage. * Telephone Encounter - Gely Estrada RN - 11/26/2022 4:57 PM EDT Patient calls to report a tiny puncture [...] 07/06/2022 8. : No Protocols used: Skin Gwswfc-OMVMW-KV documented in this encounterKettering [facility] Center05-05-2023 Miscellaneous Notes* Telephone Encounter - Mitzi Ibarra RN - 11/19/2022 2:01 PM EDT Patient returned call and given provider's message below with verbalized understanding. * Telephone Encounter - Shraddha Cuevas LPN - 11/19/2022 9:34 AM EDT Message left for patient to call office back and ask for triage nurse for update. Shraddha Cuevas LPN * Telephone Encounter - Shraddha Cuevas LPN - 11/19/2022 9:34 AM EDT ----- Message from Diamond Bright APRN.CNP sent at 11/19/2022 7:16 AM EDT ----- Vitamin D level in normal range. Diamond Bright APRN.CNP documented in this encounterKettering [facility] Center05-05-2023 Miscellaneous Notes* Telephone Encounter - Blanca Rojo LPN - 11/19/2022 8:02 AM EDT Images from the original note were not included. Patient calling asking for lab results. VITAMIN D 25 HYDROXY Order: [id number] Status: Final result Visible to patient: No (inaccessible in MyChart) Dx: Vitamin D deficiency 1 Result Note Component Ref Range & Units 2 d ago 3 mo ago Vitamin D 25 Hydroxy 31.0 - 80.0 ng/mL 68.2 17.4 Low CM Resulting Agency [facility]CM Specimen Collected: 11/17/22 2:56 PM EDT [...] Top Went over results from Diamond Bright MACHINE CARTON MARKER with understanding. documented in this encounterKettering Health [facility] Center05-03-2023 History of Present illness Narrative* Diamond Bright APRN.CNP - 11/17/2022 2:44 PM EDT 11/17/2022 Patient presents with: Acute Visit: Wants vitamin D checked Nicotine Dependence: Wants to talk about smoking cessation SUBJECTIVE: This is a 52 year old that is here today for Above Complaints.. Would like her vitamin D rechecked. Finished her 01543 units.Feels tired. Want to stop smoking. Does [...] is clear HIV (human immunodeficiency virus infection) ([facility]) [address] Dr. Mcdonald-ID Persistent cough 07/2022 Tobacco [...] by mouth daily before breakfast. 1/2 hr beforemeal. albuterol HFA (VENTOLIN HFA) 90 mcg/actuation inhaler Inhale 2 Puffs as instructed every 4 hours asneeded. yoknwheqope-bdbrlmssctlss-ozkdofgld alafenamide (BIKTARVY) 50-200-25 mg per tablet Take 1 tablet bymouth once daily. No current facility-administered medications for [...] which included preparing to see the patient, anjn-hu-jivg patient care, completing clinical documentation, obtaining and/or reviewing separately obtained history, performing a medically appropriate examination, counseling and educating the pat ient/family/caregiver, and ordering medications, tests, or procedures. documented in this encounterKettering [facility]04-24-2023 Miscellaneous Notes* Telephone Encounter - Milagros Abdullahi MA - 11/08/2022 11:13 AM EDT EUGENE: 09/02/22 with PCP NOV: 11/15/22 with TREMAINE Last refill: 08/05/22 With 30 and 2 refills Milagros Abdullahi MA * Telephone Encounter - Abigail Rich - 11/08/2022 10:27 AM EDT Patient has been identified by name and [...] and advise. Abigail Rich documented in this encounterKettering Health [facility] Center04-21-2023 History of Present illness Narrative* Mana Ribeiro APRN.ANALILIA - 11/05/2022 2:36 PM EDT Images from the original note were not included. Subjective Animal Bite Tracy Vazquez is a 52 year old female who presents with multiple scratches from her cat. This is her emotional support animal and we have seen her here in [facility] 3 times this year for injuries sustained by this cat. Most recently she was treated with Augmentin on 11/01 for 5 days for a cat bite. She has one more day of Augmentin left. She states she was getting a laundry basket whenthe cat freaked out and scratched her on her right thigh and bilateral hands. She has not had anypain in the areas. She has not had [...] is clear HIV (human immunodeficiency virus infection) ([facility]) 2009 Dr. Mcdonald-ID Persistent cough 07/2022 Tobacco [...] 2 Puffs as instructed every 4 hours asneeded. ufkosowrqog-jfaisxgqfhegn-eilkdzgqt alafenamide (BIKTARVY) 50-200-25 mg per tablet Take 1 tablet bymouth once daily. mupirocin (BACTROBAN) 2 % ointment [...] by mouth daily before breakfast. 1/2 hr beforemeal. FAMILY HISTORY Problem Relation Age of Onset [...] illness Mana Ribeiro APRN.CNP documented in this encounterKettering Health [facility]04-21-2023 Instructions* Patient Instructions* Mana Ribeiro APRN.CNP - 11/05/2022 2:35 PM [...] illness Mana Ribeiro APRN.CNP documented in this encounterKettering Health [facility] Center04-17-2023 History of Present illness Narrative* Pam Garibay PA-C - 11/01/2022 1:52 PM EDT This note was created using [employer]. Subjective Tracy Vazquez is a 52 year [...] LSD- no surgery for this Emphysema lung ([facility]) GERD (gastroesophageal reflux disease) Hepatitis B reports she is clear HIV (human immunodeficiency virus infection) ([facility]) 2009 Dr. Mcdonald-ID Persistent cough 07/2022 Tobacco [...] 2 Puffs as instructed every 4 hours asneeded. 1 Inhaler 1 gsudwccpevi-dlyaoqzjvyjvq-vsrfdpevs alafenamide (BIKTARVY) 50-200-25 mg per tablet Take 1 tablet bymouth once daily. amoxicillin-clavulanic acid (AUGMENTIN) 875-125 mg [...] by mouth daily before breakfast. 1/2 hr beforemeal. 30 capsule 2 No current facility-administered medications [...] UTD. Pam Garibay PA-C documented in this encounterKettering [facility]04-04-2023 Miscellaneous Notes* Telephone Encounter - Mattie Serrano LPN - 10/19/2022 2:14 PM EDT Patient returned call, given below results/recommendations. She is currently at work, will call in to scheduled repeat in 6 months. Mattie Serrano LPN * Telephone Encounter - Mitzi Ibarra RN - 10/19/2022 2:12 PM EDT Left vm for patient to return call to nurse for provider message. * Telephone Encounter - Prudencio Pedro MD - 10/19/2022 1:19 PM EDT Diagnostic mammogram and US show likely benign asymmmetry in the right breast. No need for biopsy at this time. Recommend repeat mammogram and US in 6 months to monitor closely. documented in this encounterKettering Health [facility] Center04-04-2023 History of Present illness Narrative* Angela Raymundo RDMS - 10/19/2022 11:30 AM EDT Radiology Service Progress Note PATIENT NAME: Tracy Vazquez DATE OF SERVICE: October 19, 2022 TIME: 11:59 AM PATIENT IDENTITY VERIFICATION COMPLETED USING TWO (2) IDENTIFIERS: Name and Date of confirmedby patient verbally. FALL SCREENING: Has the patient [...] 19, 2022 11:59 AM documented in this encounterKettering Health [facility] Center04-04-2023 History of Present illness Narrative* Aliyah Peng RT(Yung) - 10/19/2022 11:00 AM EDT Radiology Service Progress Note PATIENT NAME: Tracy Vazquez DATE OF SERVICE: October 19, 2022 TIME: 10:56 AM PATIENT IDENTITY VERIFICATION COMPLETED USING TWO (2) IDENTIFIERS: Name and Date of confirmedby patient verbally. FALL SCREENING: Has the patient had 2 falls in the last year or 1 fall with injury or currently using an Ambulatory Assistive Device (Walker, Cane, Wheelchair, Crutches, etc.)? No PATIENT GENDER DATA: Female. status: : No status: NO. PATIENT RELEVANT IMPLANT DATA REVIEWED: Not Applicable RADIOLOGY DEPARTMENT: Mammography PERIPHERAL IV DATA: Not applicable SIGNED BY: RT Jill(Yung) October 19, 2022 10:56 AM documented in this encounterKettering Health [facility] Center03-06-2023 Miscellaneous Notes* Telephone Encounter - Kamryn Fontana RN - 09/20/2022 4:58 PM EST Spoke with patient. Given message from provider's office. Patient verbalizes understanding. Transferred to [facility] for appointment. Kamryn Fontana RN * Telephone Encounter - Coretta Fierro RN - 09/20/2022 4:50 PM EST VM left for pt to call PCP office for provider's message below. Coretta Fierro RN * Telephone Encounter - Leo Cheatham DO - 09/20/2022 4:15 PM EST Please make her an appt in [facility] office Leo Cheatham DO * Telephone Encounter - Coretta Fierro RN - 09/20/2022 1:18 PM EST Triage protocol recommends: See provider within 3 [...] she's not sure if right implant is deflating. States a couple months ago she was involved in incident where her right arm got injured from a car door-pt unsure if this is a contributing factor or not. Pt has US of breast and diagnostic mammogram scheduled for 10/19 and is on waiting list if there is a cancellation. 7. -: no Protocols used: Breast Lkobbpyi-PCOZU-KP documented in this encounterKettering Health [facility] Center02-28-2023 Miscellaneous Notes* Letter - Mammography Coordinator - 09/14/2022 4:50 PM EST September 15, 2022 PID: [id number] Tracy Vazquez [address] [place] [address] Dear Ms. Vazquez, Your recent breast imaging exam on 09/13/2022 showed a possible finding that requires additional imaging studies for a complete evaluation. Most such findings are probably benign (not cancer). If you have a healthcare provider who ordered/prescribed your screening mammogram: Please call [phone] or [phone] to schedule an appointment for your additional imaging (if youhave not already done so). If you DO [...] and reports are [facility] as part of your permanent medical record, and are available for your continuing care. Thank you for allowing us to help in meeting your health care needs. Sincerely, Dr. Quispe Interpreting Radiologist [facility] (Additional imaging) documented in this encounterCleveland [id number] Miscellaneous Notes* Telephone Encounter - Elba Bass LPN - 09/10/2022 8:53 AM EST Patient notified Alpha-1 result normal. Elba Bass LPN * Telephone Encounter - Roxane Evans RN - 09/10/2022 8:24 AM EST Pt calling in asking for results of lab tests done yesterday 09/09/22. Please advise. Pt is going towork soon, so if does not answer callback okay to leave VM per pt Roxane Evans RN documented in this encounterKettering Health [facility] Center02-22-2023 Miscellaneous Notes* Telephone Encounter - Gely Estrada RN - 09/08/2022 8:07 AM EST Patient calls and notified of results and providers instructions. Patient verbalizes understanding with no further testing. Gely Estrada RN * Telephone Encounter - Rob Chirinos APRN.CNP - 09/08/2022 7:51 AM EST COVID-19, influenza A, and influenza B PCR test are negative. Continue supportive therapies as discussed during visit. Follow-up with PCP if symptoms are not improving. Rob Chirinos APRN.ANALILIA documented in this encounterKettering Health Behavioral [facility] Center02-21-2023 Instructions* Patient Instructions* Rob Chirinos APRN.CNP - 09/07/2022 11:58 AM EST How to Manage Common Symptoms Associated with COVID for Adults Fever- Fever is a temperature over 100.4 F and can occur when the body is fighting an infection. Tohelp treat a fever: Drink plenty of fluids [...] your chest such as Vicks, which can helpreduce cough. Try cough drops. Avoid smoking and other strong odors or perfumes. Try breathing exercises to keep your lungs open and clear. Take a big deep breath through your noseand hold for 5 seconds before slowly releasing. [...] of water every 10-15 minutes and increase astolerated. You can try sucking an ice cube [...] or concerning to you. documented in this encounterKettering Health [facility] Center02-21-2023 History of Present illness Narrative* Rob Chirinos APRN.CNP - 09/07/2022 11:57 AM EST Subjective HPI Nontoxic-appearing female presents urgent care chief plaint headache nasal congestion loose stools.Loose stools has been past 2 to 3 days. Headache and nasal congestion for the last few days. Presents today for evaluation. Is currently on Augmentin for a cat bite. No known sick contacts. No OTC med ications. Denies any fever body aches chills productive cough chest pain shortness of breath pleuritic pain hemoptysis nausea vomiting abdominal pain change in bowel or bladder habits. Past medical history prescription medication use and allergies reviewed. .Patient presents with: Headache: LCUIO, diarrhea and nasal congestion x 3 days [...] by mouth daily before breakfast. 1/2 hr beforemeal. albuterol HFA (VENTOLIN HFA) 90 mcg/actuation inhaler Inhale 2 Puffs as instructed every 4 hours asneeded. uctpfqyqogd-tfqtvebwqqfuu-eqsgqqygd alafenamide (BIKTARVY) 50-200-25 mg per tablet Take 1 tablet bymouth once daily. FAMILY HISTORY Problem Relation Age [...] of care. This note was generated using [employer] software. It may contain errors in wording, punctuation, or spelling. Rob Chirinos APRN.ANALILIA documented in this encounterKettering Health Behavioral [facility] Center02-20-2023 Miscellaneous Notes* Telephone Encounter - Paual Boston RN - 09/06/2022 4:30 PM EST Pt called and is notified of providers message and instructions. Pt voices understanding. Paula Boston RN * Addendum Note - Prudencio Pedro MD - 09/06/2022 4:16 PM ESTAddended by: PRUDENCIO PEDRO on: 09/06/2022 04:16 PM Modules accepted: Orders * Telephone Encounter - Prudencio Pedro MD - 09/06/2022 4:15 PM EST Rx sent for Florajen as requested. If diarrhea does not improve or worsens with more than 5 episodes per day would test for C diff. * Telephone Encounter - Coretta Fierro RN - 09/06/2022 10:53 AM EST Patient asking if Dr. Pedro would order the probiotic, Florajen, for her? She states this was ordered for her after seeing an OB provider in the past and she is almost out. Uses [facility] [place]. Please call pt with update. Thank you. * Telephone Encounter - Paula Boston RN - 09/06/2022 10:37 AM EST Pt called and is notified of providers message and instructions. Pt voices understanding. Pt statesshalvaro has only been having diarrhea once in the morning, but it has had mucus in it and smells bad. Paula Boston RN * Telephone Encounter - Prudencio Pedro MD - 09/06/2022 10:10 AM EST Probiotic is available over the counter. I would have her molded goods spot picker a lactobacillus or acidophilus atlocal pharmacy. Please call with more than 5 BMs per day with mucous and foul odor or abdominal pain. * Telephone Encounter - Paula Boston RN - 09/06/2022 9:56 AM EST Pt called in and reports provider put [...] you. Paula Boston RN documented in this encounterKettering Health Behavioral [facility] Center02-16-2023 History of Present illness Narrative* Prudencio Pedro MD - 09/02/2022 2:58 PM EST Chief Complaint Patient presents with: Smoking Cessation: [...] by mouth daily before breakfast. 1/2 hr beforemeal. albuterol HFA (VENTOLIN HFA) 90 mcg/actuation inhaler Inhale 2 Puffs as instructed every 4 hours asneeded. bolwftmpmla-dgetubllfimnb-kedvoncwe alafenamide (BIKTARVY) 50-200-25 mg per tablet Take 1 tablet bymouth once daily. No current facility-administered medications on [...] C (97 F) Ht 154.9 cm (5' 1) Wt 57 kg (125 lb 9.6 oz) [...] to date on tetanus booster. Red flags forre-assessment reviewed with patient in detail. 3. Cat bite, initial encounter - ICD9: 879.8, E906.3, ICD10: W55.01XA Start Augmentin for prophylaxis. Discussed wound care. Up to date on tetanus booster. Red flags forre-assessment reviewed with patient in detail. Prudencio Pedro MD documented in this encounterKettering Health [facility]al [facility] Center02-16-2023 Miscellaneous Notes* Telephone Encounter - Prudencio Pedro MD - 09/02/2022 9:41 AM EST Agree. * Telephone Encounter - Shraddha Cuevas LPN - 09/01/2022 4:49 PM EST Patient scheduled with Dr. Pedro for tomorrow. Shraddha Cuevas LPN * Telephone Encounter - Diamond Bright APRN.CNP - 09/01/2022 3:36 PM EST Recommends appointment to discuss options. Diamond Bright APRN.ANALILIA * Telephone Encounter - Venecia Davies LPN - 09/01/2022 3:28 PM EST t called back today and wanted you to know she broke down today 09-01-22 and she is back smoking. She has had 3 cigs today. Pt asking for help. Please advise. * Telephone Encounter - Prudencio Pedro MD - 08/30/2022 11:38 AM EST Reviewed. * Telephone Encounter - Shraddha Cuevas LPN - 08/30/2022 11:29 AM EST Stopped on the . Was smoking a pack and a half a day. She has an appointment with pulmonologiston the . States she currently doesn't need anything at this time and that quitting cold turkey is going ok. Shraddha Cuevas LPN * Telephone Encounter - Prudencio Pedro MD - 08/30/2022 8:30 AM EST How much is she smoking now? Does she have something in mind she would like to try, or does she want OV to discuss cessation options? * Telephone Encounter - Jes Harry LPN - 08/27/2022 3:04 PM EST Patient was recently diagnosed with emphysema and states she is ready to quit smoking and asking for a script to help with this. documented in this encounterK[facility]02-08-2023 Miscellaneous Notes* Telephone Encounter - Kamryn Fontana RN - 08/25/2022 5:27 PM EST Spoke with patient. Given message from provider's office. Patient verbalizes understanding. Kamryn Fontana RN * Telephone Encounter - Shraddha Cuevas LPN - 08/25/2022 5:16 PM EST Message left for patient to call back for update. Shraddha Cuevas LPN * Telephone Encounter - Diamond Bright APRN.ANALILIA - 08/25/2022 4:02 PM EST No nodules. Changes consistent with emphysema. Follow-up in one year. Diamond Bright APRN.ANALILIA * Telephone Encounter - Zeny Aquino RN - 08/25/2022 3:52 PM EST Patient calls and states that she had lung screening done at [facility]. Patient had CT Scan done. Patientasking for provider to review and advise. Patient was referred to [facility] pulmonology by Namrata Cho NP. Please review and advise, Zeny Aquino RN documented in this encounterKettering [facility]02-08-2023 Miscellaneous Notes* Telephone Encounter - Kacey Narayanan LPN - 08/25/2022 5:23 PM EST Patient calling regarding returning call to go over results . Conferenced to Kamryn in Dr. Killian at phone number ([phone]) for assistance. Kacey Narayanan LPN documented in this encounterKettering [facility]02-01-2023 Instructions* Patient Instructions* Diamond Bright APRN.CNP - 08/18/2022 9:24 AM EST Keep area clean, dry and covered Watch area for surrounding redness, excessive warmth, drainage, fever or chills- return to office if this develops. Go to ER with red flag symptoms- which would be red streaking up the leg documented in this encounterKettering [facility]02-01-2023 History of Present illness Narrative* Diamond Bright APRN.CNP - 08/18/2022 9:16 AM EST 08/18/2022 Patient presents with: Animal Bite: Cat [...] is clear HIV (human immunodeficiency virus infection) ([facility]) [address] Dr. Mcdonald-ID Persistent cough 07/2022 Tobacco [...] by mouth daily before breakfast. 1/2 hr beforemeal. albuterol HFA (VENTOLIN HFA) 90 mcg/actuation inhaler Inhale 2 Puffs as instructed every 4 hours asneeded. pgbjhnffxmi-bhpotuldhzqbg-aidzvospx alafenamide (BIKTARVY) 50-200-25 mg per tablet Take 1 tablet bycouth once daily. No current facility-administered medications for [...] 57.2 kg (126 lb) SpO2 100% BMI 23.07kg/m . Vital signs reviewed by this provider. [...] - FECAL OCCULT BLOOD TEST Diamond Bright APRN.CNP Prescription instructions reviewed with [...] which included preparing to see the patient, ejqp-dq-[id number] patient care, completing clinical documentation, obtaining and/or reviewing separately obtained history, performing a medically appropriate examination, counseling and educating the pat ient/family/caregiver, and ordering medications, tests, or procedures. documented in this encounterKet[facility]01-30-2023 Miscellaneous Notes* Telephone Encounter - Paula Boston RN - 08/16/2022 10:14 AM EST Pt called and is notified of providers message and instructions. Pt voices understanding. Paula Boston RN * Telephone Encounter - Prudencio Pedro MD - 08/16/2022 8:33 AM EST We did not check a B12 level on her. Would recommend she take daily multivitamin OTC that contains B12. * Telephone Encounter - Paula Boston RN - 08/16/2022 8:20 AM EST Pt called and is notified of providers message. Pt voices understanding, but states the area is healed up and she doesn't need to come in. Pt was asking about her labs that she had drawn, and providers had put her on D3. She was asking if they would recommend she take B12. Please call and advise. Paula Boston RN * Telephone Encounter - Prudencio Pedro MD - 08/16/2022 8:06 AM EST Agree. If she wants it looked at Diamond and I have openings today and tomorrow. * Telephone Encounter - Paula Boston RN - 08/13/2022 4:47 PM EST Pt called in and reports she was [...] tender to the touch. Pt was told i f she saw signs like these to go to EC or ER. Told Pt I would send to provider and have them get back to her if they had any other directions. documented in this encounterKet[facility]01-23-2023 Miscellaneous Notes* Addendum Note - Gem Wilder APRN.CNM - 08/09/2022 1:40 PM ESTAddended by: GEM WILDER on: 08/09/2022 01:40 PM Modules accepted: Orders * Addendum Note - Paula Cintron MA - 08/09/2022 1:39 PM ESTAddended by: PAULA CINTRON on: 08/09/2022 01:39 PM Modules accepted: Orders documented in this encounterKet[facility]01-23-2023 History of Present illness Narrative* Gem Wilder APRN.CNM - 08/09/2022 9:20 AM EST Tracy Vazquez is a 52 year old [...] external genitalia normal, normal Bartholin's glands, urethra, [place]'s glands, no vulvar lesions, no cervical lesions, good vaginal support, physiologic discharge present, normal appearing perineal body and perianal region BIMANUAL: uterus normal size, shape and consistency, no adnexal masses, and non- tender. Small amount of yellow vaginal discharge. ASSESSMENT/PLAN: [...] Level: 3 - Low documented in this encounterKettering [facility]01-19-2023 Miscellaneous Notes* Telephone Encounter - Abigail William LPN - 08/05/2022 5:03 PM EST Phoned patient and message left. * Telephone Encounter - Prudencio Pedro MD - 08/05/2022 4:57 PM EST Rx sent * Telephone Encounter - Zeny Aquino RN - 08/05/2022 12:11 PM EST Patient calls and states that she had allergy shot today. Patient was told that she is in maintenance stage and it will be couple months for it to kick in. Patient asking if provider can send in prescription for zyrtec? Patient's pharmacy is [facility]. Please review and advise, Zeny Aquino RN documented in this encounterKettering [facility]01-19-2023 Miscellaneous Notes* Telephone Encounter - Cassie Shipley MA - 08/05/2022 8:14 AM EST Patient notified of results, verbalized understanding. Cassie Shipley MA * Telephone Encounter - KERRI Fragoso - 08/05/2022 7:37 AM EST Please let patient know COVID and flu negative. documented in this encounterKettering [facility]01-18-2023 Miscellaneous Notes* Telephone Encounter - Tracy Rausch LPN - 08/04/2022 4:09 PM EST Patient notified. Verbalized understanding. * Telephone Encounter - Dimaond Bright APRN.CNP - 08/04/2022 4:01 PM EST She may get the shingrix vaccine at any time. She should check with her insurance to see if they cover in the office or if she needs to go to the pharmacy. Diamond Bright APRN.CNP * Telephone Encounter - Venecia Davies LPN - 08/04/2022 10:15 AM EST Pt called and wanted to know the following: *when should she get the shingles vaccine. Please advise pt. *wanted you to know she is cancelling the home sleep study for now because she is low in vit D and will see how she does on vit D and see if this could be her problem. Venecia Davies LPN documented in this encounterKet[facility]01-18-2023 Miscellaneous Notes* Telephone Encounter - Zeny Aquino RN - 08/04/2022 9:13 AM EST Patient notified of results and provider's instructions. Patient verbalizes understanding. Zeny Aquino RN * Telephone Encounter - Coretta Fierro RN - 08/04/2022 9:05 AM EST VM left for pt to call provider's office and ask for a nurse, for message below. Coretta Fierro RN * Telephone Encounter - Diamond Bright APRN.CNP - 08/04/2022 8:41 AM EST Please call patient and let her know her vitamin D level is low. Recommend we treat with vitamin D ONE TABLET A WEEK for 12 weeks then recheck level one week after last dose. I have sent over prescription for her. Diamond Bright APRN.ANALILIA * Telephone Encounter - Mitzi Ibarra RN - 08/04/2022 8:21 AM EST Patient checking on Vit D results. Did advise vit d level is low and once provider advises on thoseresults we will call her back. Patient reports [...] phone patient with reply. documented in this encounterKet[facility]01-17-2023 Miscellaneous Notes* Telephone Encounter - Shraddha Cuevas LPN - 08/03/2022 4:01 PM EST Patient notified. Voices understanding. Shraddha Cuevas LPN * Telephone Encounter - Diamond Bright APRN.ANALILIA - 08/03/2022 3:34 PM EST Labs within acceptable limits. Vitamin D level still pending. Diamond Bright APRN.STEEL DIVISION SUPERVISOR * Telephone Encounter - Venecia Davies LPN - 08/03/2022 3:30 PM EST Pt called back and she is home now and can be reached at [phone]. Venecia Davies LPN * Telephone Encounter - Prudencio Pedro MD - 08/03/2022 3:18 PM EST We will call her when they are back. * Telephone Encounter - Stephanie Rich - 08/03/2022 2:07 PM EST Patient calling for lab results from yesterday. documented in this encounterKet[facility]01-17-2023 Miscellaneous Notes* Telephone Encounter - Coretta Fierro RN - 08/03/2022 3:19 PM EST Pt calling and requesting Lung Cancer Screening referral be faxed to [facility] at [phone]. Faxed as requested. Coretta Fierro, RN documented in this encounterKettering [facility]01-16-2023 Miscellaneous Notes* Telephone Encounter - Diamond Bright APRN.CNP - 08/02/2022 2:58 PM EST Reviewed. Thanks, Diamond Bright APRN.CNP * Telephone Encounter - Venecia Davies LPN - 08/02/2022 2:37 PM EST Also faxed pulmonary testing to [facility]. Venecia Davies LPN * Telephone Encounter - Venecia Davies LPN - 08/02/2022 2:17 PM EST Pt called back and reports she spoke with [facility] and they can do the Lung Cancer Screening at [facility]. Faxnumber [phone]. Faxed order/OV/face sheet. Done. Venecia Davies LPN * Telephone Encounter - Diamond Bright APRN.CNP - 08/02/2022 2:12 PM EST This is not done locally, the closet is [facility] [place], or [place]. Diamond Bright APRN.CNP * Telephone Encounter - LINDA Leyva - 08/02/2022 2:05 PM EST Sw spoke with patient regarding transportation. Discussed [...] is not aware of this being able daniela done local unless [facility] has this option. Mitch will see what ARIC Fields has to say about where to best go for lung cancer screening. documented in this encounterKettering [facility]01-16-2023 History of Present illness Narrative* Diamond Bright APRN.STEEL DIVISION SUPERVISOR - 08/02/2022 9:59 AM EST 08/02/2022 Patient presents with: Yearly Exam SUBJECTIVE: [...] by mouth daily before breakfast. 1/2 hr beforemeal. awmiitlucnv-ringfytvlgbty-kaxzvignm alafenamide (BIKTARVY) 50-200-25 mg per tablet [facility]. albuterol HFA (VENTOLIN HFA) 90 mcg/actuation inhaler Inhale 2 Puffs as instructed every 4 hours asneeded. No current facility-administered medications for this visit. [...] No history of dysuria, frequency or incontinence WORKING SECOND HAND: Negative for abnormal vaginal bleeding, abnormal vaginal [...] 70 Resp 16 Ht 157.4 cm (5' 1.97) Wt 56.8 kg (125 lb 3.2 oz) [...] diet of 1000 mg/day for under 50, 1200- 1500 mg/day for 50+ - Colorectal cancer screening [...] transportation - ICD9: V15.89, ICD10: Z59.82 - PROGRAM EVALUATOR [CONSULT TO SOCIAL WORK] 9. Encounter for immunization - ICD9: V03.89, ICD10: Z23 - PNEUMOCOCCAL VACCINE (PREVNAR 20) 10. Special screening examination for viral disease - ICD9: V73.99, ICD10: Z11.59 - HEP C AB IA W/CONF SCRN 11. HIV infection, unspecified symptom status (HCC) - ICD9: V08, ICD10: B20 - follow-up with infectious disease as scheduled - continue current medications Diamond Bright APRN.ANALILIA Prescription instructions reviewed with patient as applicable. Patient advised if symptoms do not improve or if symptoms worsen sooner, to contact their primary care physician. Potential red flag symptoms discussed with the patient. Reviewed appropriate action plan to take if red flag symptoms occur. Patient agreeable to treatment plan. documented in this encounterKet[facility]01-13-2023 History of Present illness Narrative* Sulma Lane APRN.CNP - 07/30/2022 8:32 AM EST Images from the original note were not included. Subjective Patient came in with complaints of cat bite on left forearm. Patient says it is her own cat. Patient denies any fever chills nausea vomiting swelling redness. The history is provided by the patient. No farm machinery mechanic was used. Animal Bite Review of Systems [...] by mouth daily before breakfast. 1/2 hr beforemeal. albuterol HFA (VENTOLIN HFA) 90 mcg/actuation inhaler Inhale 2 Puffs as instructed every 4 hours asneeded. ouruwbpebdg-qflbsftzrffvg-lsphrdeqt alafenamide (BIKTARVY) 50-200-25 mg per tablet Take 1 tablet bymouth once daily. FAMILY HISTORY Problem Relation Age [...] medications in chart with patient. Sulma Lane APRN.ANALILIA documented in this encounterKettering [facility]01-05-2023 Miscellaneous Notes* Telephone Encounter - Milagros Abdullahi MA - 07/22/2022 9:22 AM EST Patient notified. Milagros Abdullahi MA * Telephone Encounter - Diamond Bright APRN.CNP - 07/22/2022 9:03 AM EST This can be discussed at upcoming appointment. Diamond Bright APRN.CNP * Telephone Encounter - Coretta Rich - 07/22/2022 8:58 AM EST Patient is also asking if she can take over the counter Vitamin D please advise the patient. * Telephone Encounter - Coretta Fierro RN - 07/22/2022 8:14 AM EST Pt has Physical Appt with Diamond Bright CNP on 08/02 and is asking if provider would like to orderlabs prior to appt? She requests labs to test her liver and kidneys. She also has request for more specific testing of fungus that comes from the soil and other lung and heart testing. Advised pt to discuss this with Diamond at upcoming appt to determine appropriate further testing. Please call pt with update. Thank you. documented in this encounterKettering [facility]01-03-2023 History of Present illness Narrative* CHING Orellana - 07/20/2022 9:15 AM EST PULM FUNCTION SMARTBLOCK: Provider: Prudencio Pedro MD Assisting Tech: CHING Orellana Spirometry w/BD: 1 LV - Box: 1 documented in this encounterKettering [facility] Center12-21-2022 Miscellaneous Notes* Telephone Encounter - Coretta Fierro RN - 07/07/2022 9:09 AM EST Follow-up call placed to patient. No answer. VM left to call PCP office if has not sought medical evaluation of issue below. Coretta Fierro RN * Telephone Encounter - Diamond Bright APRN.CNP - 07/07/2022 8:54 AM EST Will need to be evaluated. Diamond Bright APRN.CNP * Telephone Encounter - Blanca Rojo LPN - 07/06/2022 4:09 PM EST Patient calling her indoor cat had bitten her and scratched her today, cat has never done that to her before. Advised since no appt available at this time of the day to go to express care for evaluation, may need tetanus shot updated. documented in this encounterKettering [facility] Center12-20-2022 History of Present illness Narrative* Chantel Shah APRN.ANALILIA - 07/06/2022 4:41 PM EST Images from the original note were not [...] immunodeficiency virus infection) (HCC) 2009 Dr. Mcdonald-ID PAST SURGICAL HISTORY Procedure [...] by mouth daily before breakfast. 1/2 hr beforemeal. albuterol HFA (VENTOLIN HFA) 90 mcg/actuation inhaler Inhale 2 Puffs as instructed every 4 hours asneeded. nzflwxsvvzw-dgzofdxjxtdok-cgewssjlt alafenamide (BIKTARVY) 50-200-25 mg per tablet Take 1 tablet bymouth once daily. amoxicillin-clavulanic acid (AUGMENTIN) 875-125 mg [...] - TDAP VACCINE AGE 7+ IM Updated. Chantel Shah APRN.STEEL DIVISION SUPERVISOR documented in this encounterKettering Health [facility] Center12-19-2022 History of Present illness Narrative* Diamond Bright APRN.ANALILIA - 07/05/2022 12:22 PM EST 07/05/2022 Patient presents with: Mouth/Lip Problem: Gum [...] is clear HIV (human immunodeficiency virus infection) ([facility]) [address] Dr. Mcdonald-ID ALLERGIES House Dust Mite and Singulair [Montelukast] MEDICATIONS Current Outpatient Medications Medication Sig lansoprazole (PREVACID) 15 mg capsule Take 1 capsule by mouth daily before breakfast. 1/2 hr beforemeal. albuterol HFA (VENTOLIN HFA) 90 mcg/actuation inhaler Inhale 2 Puffs as instructed every 4 hours asneeded. vssnrxnnslx-bsivasaqbcerq-pnbkpsoyg alafenamide (BIKTARVY) 50-200-25 mg per tablet Take 1 tablet bymouth once daily. meloxicam (MOBIC) 15 mg tablet [...] which included preparing to see the patient, ozpo-eo-cejr patient care, completing clinical documentation, obtaining and/or reviewing separately obtained history, performing a medically appropriate examination, and counseling and educating the patient/family/caregiver. documented in this encounterKet[facility] Center12-14-2022 Miscellaneous Notes* Telephone Encounter - Diamond Bright APRN.CNP - 06/30/2022 4:49 PM EST Reviewed. Diamond Bright APRN.CNP * Telephone Encounter - Shraddha Cuevas LPN - 06/30/2022 4:38 PM EST Patient states she is allergic to dust and wonders if the symptoms are from her allergies. Noticed the symptoms started after she started receiving her allergy vaccines a few weeks ago . Wonders if she has a sinus infection since she is having pain to her face. Appointment scheduled for Tuesday07/06/22 with Diamond Bright. Shraddha Cuevas LPN * Telephone Encounter - Prudencio Pedro MD - 06/30/2022 3:45 PM EST Needs OV to discuss. * Telephone Encounter - Zeny Aquino RN - 06/30/2022 3:25 PM EST Patient calls and states that for about [...] advise, Zeny Aquino RN documented in this encounterKettering [facility] Center12-13-2022 History of Present illness Narrative* Prudencio Pedro MD - 06/29/2022 4:12 PM EST Chief Complaint Patient presents with: UTI: Flank [...] is clear HIV (human immunodeficiency virus infection) ([facility]) 2009 Dr. Mcdonald-ID Previous Surgical History PAST [...] by mouth daily before breakfast. 1/2 hr beforemeal. albuterol HFA (VENTOLIN HFA) 90 mcg/actuation inhaler Inhale 2 Puffs as instructed every 4 hours asneeded. dbarlzrgqgk-expgndyrklwsx-hdlnntazd alafenamide (BIKTARVY) 50-200-25 mg per tablet Take 1 tablet bymouth once daily. No current facility-administered medications on [...] YR Prudencio Pedro MD documented in this encounterKettering Health [facility] Center12-12-2022 Miscellaneous Notes* Telephone Encounter - Zeny Aquino RN - 06/28/2022 1:01 PM EST Patient calls and notified of provider instructions. Patient voiced understanding. Zeny Aquino RN * Telephone Encounter - Abigail William LPN - 06/28/2022 12:55 PM EST Message left for patient to return call for update. * Telephone Encounter - Prudencio Pedro MD - 06/28/2022 10:31 AM EST I would recommend she eat 3 healthy meals per day. Can take before dinner instead of breakfast. * Telephone Encounter - Zeny Aquino RN - 06/28/2022 10:20 AM EST Patient calls and states that she does not eat breakfast or lunch. Patient states that she only eats one meal a day and it is at 6 pm. Patient asking when should she be taking prevacid since she doesnot eat breakfast? Patient states that she takes her HIV medicine at 9 pm. If she took Prevacid closer to her only meal would it be ok since she takes other medication at 9 pm? Please review and advise, Zeny Aquino RN documented in this encounterKettering [facility] Center12-05-2022 Miscellaneous Notes* Telephone Encounter - Abigail William LPN - 06/21/2022 2:47 PM EST Left detailed message on secure VM regarding provider's message. * Telephone Encounter - Prudencio Pedro MD - 06/21/2022 12:01 PM EST 3 month rx for prevacid sent to pharmacy. Call if not improving symptoms in 1-2 weeks. * Telephone Encounter - Mariangel Connors [facility] - 06/21/2022 11:04 AM EST Tracy Vazquez is calling Prudencio Pedro MD today to request a prescription for GERD,medication to be sent to [facility] in [place], if provider agrees to restarting this medication. Patient is stating it was prevacid Patient has been identified by name and birthdate. Duration of symptoms: N/A Person calling: self Call patient at: at home [phone] (home) Was an appointment scheduled: No Closing statement: Results or non-symptom based questions: Thank you for [facility], your call will be returned within the next business day. Mariangel Connors [facility] documented in this encounterKettering Health Behavior[facility] Center11-21-2022 Miscellaneous Notes* Telephone Encounter - NAMITA Pickens - 06/07/2022 3:19 PM EST Phone call placed to patient, patient voices understanding. NAMITA Pickens * Telephone Encounter - Diamond Bright APRN.CNP - 06/07/2022 3:05 PM EST She can just stop medication. Diamond Bright APRN.CNP * Telephone Encounter - Leda Biron LPN - 06/07/2022 2:58 PM EST Last OV: 04/09/22 Pt calls to report she was prescribed Singulair two months ago and it is not helping her. Pt reports she has nightmares because of medication also. Pt reports she does not want to take Singulair anymore and is asking if she should just stop medication or wean off of it. Please review and advise. Leda Burdick LPN documented in this encounterKettering Health [facility] Center11-15-2022 Miscellaneous Notes* Telephone Encounter - Gely Estrada RN - 06/01/2022 12:41 PM EST Call placed to patient and scheduled annual physical for July 2022 per patient request. Gely Estrada RN * Telephone Encounter - Prudencio Pedro MD - 06/01/2022 11:21 AM EST I would have her schedule an annual physical appointment sometime in the first quarter of the new year and check labs at that time. * Telephone Encounter - Coretta Fierro RN - 06/01/2022 10:57 AM EST Patient calling to state she does not believe she has had recent lab work to check her kidneys and liver. Asking provider if she is due for these labs anytime soon? Please advise. Thank you. documented in this encounterKettering Health [facility] Center11-15-2022 Miscellaneous Notes* Telephone Encounter - Prudencio Pedro MD - 06/01/2022 10:37 AM EST Thank you. * Telephone Encounter - Venecia Davies LPN - 06/01/2022 10:28 AM EST FYI: Pt called in with an update on her ENT apt. Pt is highly allergic to dust and dust mites, slightly allergic to cats, cows, horses and pollen. PT will be starting allergy shots in 2 weeks. Venecia Davies LPN documented in this encounterKettering Health Behavior[facility] Center11-11-2022 Miscellaneous Notes* Telephone Encounter - Mitzi Ibarra RN - 05/28/2022 1:11 PM EST Patient returned call and given provider's message below with verbalized understanding. * Telephone Encounter - Paula Boston RN - 05/28/2022 12:19 PM EST Called and left a voicemail for the Patient to call back and ask for a nurse to receive the providers message. Paula Boston RN * Telephone Encounter - Prudencio Pedro MD - 05/28/2022 11:56 AM EST Without possible exposure or coughing up blood, would not recommend checking TB for new onset coughotherwise. * Telephone Encounter - Mitzi Ibarra RN - 05/28/2022 11:44 AM EST Patient asking pcp to order her a TB blood test. Reports she has a cough, and just wants to test daniela on the safe side. Has not been exposed to TB that she knows of. Reports she had covid a month ago and read somewhere that a lot of people who get covid also get TB. Please advise patient. documented in this encounterK[facility]22 Miscellaneous Notes* Telephone Encounter - Prudencio Pedro MD - 05/26/2022 2:55 PM EST Agree. * Telephone Encounter - Venecai Davies LPN - 05/26/2022 2:30 PM EST Pt called back and information listed below given. Pt states she can not take Flonase if makes her nose bleed. Pt was instructed to take Singulair and saline spray. Pt instructed not to take jessica,benadryl, Claritin, Zyrtec, Tylenol PM, Tylenol Sinus, Sleep aides, Hydroxyzine, Aze Lasting, Xydal,robitussin D , Sudafed D, Nyquil , Midol and Echinacea 1 week before testing. Pt will keep apt with ENT next week. Venecia Davies LPN * Telephone Encounter - Milagros Chen Cma - 05/26/2022 9:03 AM EST Left message for patient to return call to office Milagros Chen Cma * Telephone Encounter - Prudencio Pedro MD - 05/26/2022 8:38 AM EST I would recommend continuing with Singulair and take Zyrtec or Jessica OTC along with flonase daily. Follow up with ENT for further testing and will await their recommendations. * Telephone Encounter - Paula Boston RN - 05/26/2022 8:13 AM EST Pt reports that even with taking the Singular her allergies are still horrible when she wakes up inthe morning. She said it helps at night when she takes it, but in the morning she wakes up coughingup all this mucus. She states she has to drink coffee and that makes it worse, and the coughing wears her out. She states she went to the ENT and they told her she has a lot of mucus at the bottom ofher nose. She is going back next Tuesday to do another allergy skin test to see if she is allergic to anything other than dust. Pt reports, I hope I'm not allergic to smoke.. I told her the provider would probably wait to see if the ENT recommends anything before he would want to try changing medications. documented in this encounterK[facility]10-31-2022 Miscellaneous Notes* Telephone Encounter - Rut Darnell Ma - 05/17/2022 12:45 PM EDT Pt called and notified of message below, verbalized understanding. Rut Darnell Ma * Telephone Encounter - Prudencio Pedro MD - 05/17/2022 10:51 AM EDT I would recommend she get the influenza vaccine like she has in years past. * Telephone Encounter - Mitzi Ibarra RN - 05/17/2022 10:33 AM EDT Patient reports she wants to get the [...] get the flu shot? documented in this encounterK[facility]10-17-2022 Miscellaneous Notes* Telephone Encounter - Shraddha Cuevas LPN - 05/03/2022 1:40 PM EDT Patient telephoned and made aware. Shraddha Cuevas LPN * Telephone Encounter - Diamond Bright APRN.CNP - 05/03/2022 12:53 PM EDT I have sent over order for Singulair 10 mg- this pill she needs to swallow it is not chewable. Takeone tablet at bedtime Diamond Bright APRN.ANALILIA * Telephone Encounter - Gely Estrada RN - 05/03/2022 12:41 PM EDT Patient calls to ask if her Singulair dose could be bumped up a little? She reports that the Singulair 5 mg pill is helping but she is still waking up every morning with a bunch of clear thick mucus that takes atleast an hour to clear. If provider agrees she would like new prescription sent to [facility]. Gely Estrada RN documented in this encounterK[facility]09-28-2022 Miscellaneous Notes* Telephone Encounter - Paula Boston RN - 04/14/2022 3:40 PM EDT Pt called and is notified of providers message. Pt voices understanding, states she will probably wait until next week to get it. Paula Boston RN * Telephone Encounter - Diamond Bright APRN.CNP - 04/14/2022 3:34 PM EDT I recommend she get it when she if feeling improved after her COVID-19 infection. Diamond Bright APRN.CNP * Telephone Encounter - Zeny Aquino RN - 04/14/2022 3:27 PM EDT Patient calls and is asking when she can get the flu shot. Patient states she was told at the pharmacy 2- 4 weeks since she tested positive for Covid. Patient is very anxious about waiting due to herbeing immunocompromised and that she works at a [employer]. Please review and advise, Zeny Aquino RN documented in this encounterK[facility]09-28-2022 Miscellaneous Notes* Telephone Encounter - Shraddha Cuevas LPN - 04/14/2022 1:18 PM EDT Patient called and made aware. Voices understanding. Declines flonase due to it causing nose bleedsin the past but states she may try the saline spray. Shraddha Cuevas LPN * Telephone Encounter - Diamond Bright APRN.CNP - 04/14/2022 11:49 AM EDT She just started th Singulair so it takes time to start working fully. She can use saline nasal spray hourly to help nasal congestion. She could also try Flonase nasal spray two sprays each nares, rinse out mouth after use. Diamond Bright APRN.ANALILIA * Telephone Encounter - Abigail August LPN - 04/14/2022 11:05 AM EDT Pt calling to ask about returning to work after having covid. Pt states she has a cold sore betweenher nose & mouth. Pt told her mask [...] advise. Abigail August LPN documented in this encounterK[facility]09-26-2022 Miscellaneous Notes* Telephone Encounter - Shraddha Cuevas LPN - 04/12/2022 12:04 PM EDT Patient telephoned. Message below given. Voices understanding. Shraddha Cuevas LPN * Telephone Encounter - Diamond Bright APRN.CNP - 04/12/2022 11:38 AM EDT She had had 8 days of symptoms [...] to miss her appointment. Diamond Bright APRN.ANALILIA * Telephone Encounter - Shraddha Cuevas LPN - 04/12/2022 10:11 AM EDT Patient telephoned and message below given, voices understanding. Missed appointment with job and family today. Requesting a letter about being covid positive for that and for work. Shraddha Cuevas LPN * Telephone Encounter - Diamond Bright APRN.CNP - 04/10/2022 6:15 PM EDT She said her symptoms started eight days ago so she is past the window for paxlovid or monoclonal antibodies. Diamond Bright APRN.ANALILIA * Telephone Encounter - Blanca Rojo LPN - 04/10/2022 9:53 AM EDT Patient calling said her COVID test results came back positive. She also is HIV positive since 2009, she was asking for Paxlovid rx. Aware MACHINE CARTON MARKER and PCP are both out of office today. Patient said her symptoms began 2.5 months ago with coughing. Patient said she can not do virtual visit does not know how to do that. Aware can not schedule phone visit. Advised to go to [facility] for evaluation.Patient said her transportation will not pick her up since she has COVID, she is afraid of passing to her friend. Advised to wear double mask if friend brings her express care. Patient said she will decide what she is going to do. documented in this encounterK[facility]09-23-2022 History of Present illness Narrative* Diamond Bright APRN.CNP - 04/09/2022 11:49 AM EDT Covid 04/09/2022 Patient presents with: ER F/U: [facility] on Mar 18 for bronchitis SUBJECTIVE: This is a 52 year old that is here today for Above Complaints. HOSPITAL/ER FOLLOW UP: Reason for visit: cough and congestion Which facility: [facility] Date of visit: 03/18/2022 Diagnosis: cold symptoms Testing done: chest xray Treatment given: doxycycline Current symptoms: hacking cough Completed course of doxycyline without side effects. Reports sputum color has returned to clear butstill with hacking cough which is worse in [...] is clear HIV (human immunodeficiency virus infection) ([facility]) 2009 Dr. Mcdonald-ID ALLERGIES House Dust Mite MEDICATIONS Current Outpatient Medications Medication Sig albuterol HFA (VENTOLIN HFA) 90 mcg/actuation inhaler Inhale 2 Puffs as instructed every 4 hours asneeded. qjpbcoitgfj-hdayrzbzgciyv-vckaxyoqx alafenamide (BIKTARVY) 50-200-25 mg per tablet Take 1 tablet bymouth once daily. No current facility-administered medications for [...] common side effects discussed, verbalizes understanding Diamond Bright APRN.[employer] SUPERVISOR Prescription instructions reviewed with patient as applicable. [...] which included preparing to see the patient, lihb-jx-qcvx patient care, completing clinical documentation, obtaining and/or reviewing separately obtained history, performing a medically appropriate examination, counseling and educating the pat ient/family/caregiver, and ordering medications, tests, or procedures. . documented in this encounterK[facility]09-19-2022 Miscellaneous Notes* Telephone Encounter - Venecia Davies LPN - 04/05/2022 10:16 AM EDT Spoke with pt and information listed below given. Pt verbalizes understanding. Venecia Davies LPN * Telephone Encounter - Diamond Bright APRN.CNP - 04/05/2022 9:00 AM EDT Two pills of doxycycline sent as requested. Diamond Bright APRN.CNP * Telephone Encounter - Venecia Davies LPN - 04/05/2022 8:49 AM EDT Pt called and states she dropped the last 2 pills she was to take today Doxycycline 100 mg. She cannot take since they were on the floor. Pt states the floor is dirty. Pt requesting to 2 pills be sent to her pharmacy. Please advise pt when this has been done or if there is a problem. Venecia Davies LPN documented in this encounterK[facility]09-15-2022 Miscellaneous Notes* Telephone Encounter - Kacey Schneider Ma - 04/01/2022 11:47 AM EDT Message left for pt to call back. aKcey Schneider MA * Telephone Encounter - Puneet Montiel MD - 04/01/2022 9:54 AM EDT I can give her a little more. If continues, needs seen-even if it is urgent care for continued cough. * Telephone Encounter - Mariangel Connors [facility] - 04/01/2022 8:48 AM EDT Patient is calling for medication doxycycline 100 mg taking it twice daily, this is an antibiotic that she received from the [facility] ER on 03/18/2022. She complains today of that cough lingering and believes she needs more of this. I did offer her an appointment however she has to work and can not come in, will not do virtual appointment and per patient she works seven days a week. Please call patient to advise if she can have an RX sent to [facility] in [place]. Or what else she can do for the lingering cough. Her phone number is [phone] Patient said she was told she had a bacterial infection in the bronchial tubes. This was two weeks ago. Electronically signed by Mariangel [facility] at 04/01/2022 8:56 AM EDT documented in this encounterK[facility]08-04-2022 History of Present illness Narrative* Prudencio Pedro MD - 02/18/2022 9:55 AM EDT Chief Complaint Patient presents with: Follow Up: [...] HPI: When gets up in the morning hacks. Reports bringing up clear sputum. Patient does smoke. Takes mucinex which calms it down. Also admit to runny nose. Reports allergies to dust. Has not taken her jessica for a few years. Also reports drainage from eyes when she wakes up and occasionally during theday. She reports drainage is yellowish. Uses warm [...] immunodeficiency virus infection) (HCC) 2009 Dr. Mcdonald-ID Previous Surgical History PAST [...] 1 tablet by mouth every 12 hours. pujocjjnvic-hwaediqcyocyq-paktwvtcn alafenamide (BIKTARVY) 50-200-25 mg per tablet Take 1 tablet bymouth once daily. No current facility-administered medications on [...] VOLUMES Prudencio Pedro MD documented in this encounterK[facility]07-13-2022 Miscellaneous Notes* Telephone Encounter - Judith Perez Ma - 01/27/2022 12:09 PM EDT PA approved, left message on confidential vm Judith Perez Ma * Telephone Encounter - Judith Perez Ma - 01/26/2022 4:18 PM EDT PA submitted through [employer] will wait for response Judith Perez Ma * Telephone Encounter - Mattie Serrano LPN - 01/26/2022 2:24 PM EDT Tracy wants office to be aware that fexofenadine (jessica) will need to have a PA. Generic Mucinex is covered and Patient was able to pickup. Patient did not ask how much pseudoephedrin-guaifenesin was out of pocket. Mattie Serrano LPN documented in this encounterKet[facility]07-12-2022 Miscellaneous Notes* Telephone Encounter - Milagros Chen Cma - 01/26/2022 2:22 PM EDT Patient notified and verbalized understanding Milagros Chen Cma * Telephone Encounter - Diamond Bright APRN.CNP - 01/26/2022 12:17 PM EDT Normal chest xray. Continue with treatment as discussed in office ThanksDiamond APRN.CNP documented in this encounterKettering [facility] Center07-12-2022 History of Present illness Narrative* Diamond Bright APRN.CNP - 01/26/2022 11:05 AM EDT 01/26/2022 Patient presents with: Cough: x1 month Eye Problem: dry drainage every AM x1 month SUBJECTIVE: This is a 52 year old that is here today for Above Complaints.. When gets up in the morning hacks. Reports bringing up clear sputum. Patient does smoke. Takes mucinex which calms it down. Also admit to runny nose. Reports allergies to dust. Has not taken her jessica for a few years. Also reports drainage from eyes when she wakes up and occasionally during theday. She reports drainage is yellowish. Uses warm [...] Mite MEDICATIONS Current Outpatient Medications Medication Sig ufmqyuvoobl-yanicszsurqlz-oqoxdhkgy alafenamide (BIKTARVY) 50-200-25 mg per tablet Take 1 tablet bycouth once daily. No current facility-administered medications for [...] kg (115 lb 9.6 oz) SpO2 97% BMI20.81 kg/m . Vital signs reviewed by this [...] Counseling was given 3-4 minutes. Diamond Bright APRN.ANALILIA Prescription instructions reviewed with patient as applicable. Patient advised if symptoms do not improve or if symptoms worsen sooner, to contact their primary care physician. Potential red flag symptoms discussed with the patient. Reviewed appropriate action plan to take if red flag symptoms occur. Patient agreeable to treatment plan. [facility]* Diagnosis Encounter for screening mammogram for breast cancer documented in this encounter [facility]* Diagnosis Acute cough- Primary Eye drainage Redness or discharge of eye Smoking Tobacco use disorder documented in this encounter [facility] noteNo assessment information availableWWood County Hospital Work Phone: Evaluation note* Diagnosis Persistent cough- Primary Cough Suspected COVID-19 virus infection Tobacco use Tobacco use disorder documented in this encounter [facility]* Diagnosis Cough, unspecified type- Primary Symptoms of upper respiratory infection (URI) Tobacco use Tobacco use disorder Seasonal allergies Allergic rhinitis, cause unspecified documented in this encounter [facility]* Diagnosis Seasonal allergies Allergic rhinitis, cause unspecified documented in this encounter [facility] note* Diagnosis Acute right-sided low back pain with right-sided sciatica- Primary Need for COVID-19 vaccine documented in this encounter [facility]* Diagnosis Gingivitis- Primary Chronic gingivitis, plaque induced documented in this encounter [facility]* Diagnosis Cat bite, initial encounter- Primary Need for tetanus booster Need for prophylactic vaccination with tetanus toxoid alone [facility]* Diagnosis Persistent cough Cough Tobacco use Tobacco use disorder documented in this encounter [facility]* Diagnosis Cat bite, initial encounter- Primary documented in [facility]* Diagnosis Routine physical examination- [...] symptom status (HCC) [facility]* Diagnosis Vitamin D deficiency- Primary Unspecified vitamin D deficiency [facility]* Diagnosis Vaginal discharge- Primary Leukorrhea, not specified as infective documented in this encounter [facility]* Diagnosis Cat bite, initial encounter- Primary Encounter for screening fecal occult blood testing Special screening for malignant neoplasms, colon documented in this encounter [facility]* Diagnosis Chronic obstructive pulmonary disease, unspecified COPD type (HCC)- Primary [facility]* Diagnosis Onset Date Resolution Status Encounter for screening for malignant neoplasm of lung acute Tobacco use disorder, continuous acute [facility] Work Phone: Evaluation note* Diagnosis Tobacco use- Primary Tobacco use disorder Cat scratch Other and unspecified superficial injury of other, multiple, and unspecified sites, without mention of infection Cat bite, initial encounter documented in this encounter [facility]* Diagnosis Vaginal discharge Leukorrhea, not specified as infective Bacterial vaginosis Vaginitis and vulvovaginitis, unspecified documented in this encounter [facility]* Diagnosis Viral illness- Primary Unspecified viral infection, in conditions classified elsewhere and of unspecified site Loose stools Abnormal feces documented [facility]* Diagnosis Cat bite, initial encounter- Primary documented in this [facility]* Diagnosis Multiple abrasions- Primary Abrasion or friction burn of other, multiple, and unspecified sites, without mention of infection documented [facility] this [facility]* Diagnosis Vitamin D deficiency- Primary Unspecified vitamin D deficiency Smoking Tobacco use disorder documented [facility] this [facility]* Diagnosis Abnormal mammogram- Primary Abnormal mammogram, unspecified documented in this encounter [facility]* Diagnosis Vaginal discharge- Primary Leukorrhea, not specified as infective Urinary frequency [facility]* Diagnosis Vaginal itching- Primary Pruritus of genital organs documented [facility] this encounter [facility]* Diagnosis Simple chronic bronchitis (HCC)- Primary Simple chronic bronchitis Centrilobular emphysema (HCC) Other emphysema Cigarette smoker Tobacco use disorder documented in this encounter [facility]* Diagnosis Viral illness- Primary Unspecified viral infection, in conditions classified elsewhere and of unspecified site Loose stools Abnormal feces documented in this [facility]* Diagnosis Abnormal mammogram- Primary Abnormal mammogram, unspecified documented [facility] this [facility]* Diagnosis Pain in left wrist Pain in joint, forearm documented in this encounter [facility]* Diagnosis Abnormal mammogram Abnormal mammogram, unspecified documented [facility] encounter [facility]* Diagnosis Encounter for screening mammogram for breast cancer documented in this encounter [facility]* Diagnosis Abnormal mammogram Abnormal mammogram, unspecified documented in this encounter [facility]* Diagnosis Abnormal mammogram Abnormal mammogram, unspecified documented in this encounter [facility]* Diagnosis Abnormal mammogram Abnormal mammogram, unspecified documented in this encounter [facility]* Diagnosis Left wrist pain- Primary Pain in joint, forearm Closed fracture of left wrist, initial encounter documented in this encounter [facility]* Diagnosis Productive cough Cough documented in this encounter [facility]* Diagnosis Acute pain of left shoulder- Primary documented [facility]* Diagnosis Persistent cough Cough Suspected COVID-19 virus infection documented [facility] this encounter [facility]* Diagnosis Annual physical exam- Primary Routine general medical examination at a health care facility Screening for colon cancer Special screening for malignant neoplasms, colon Depression screening Screening for depression Abnormal mammogram Abnormal mammogram, unspecified Tobacco use disorder, continuous Tobacco use disorder Centrilobular emphysema (HCC) Other emphysema HIV infection, unspecified symptom status (HCC) documented in this encounter [facility]* Diagnosis Productive cough Cough [facility]* Diagnosis Encounter for screening mammogram for breast cancer documented in this encounter [facility]* Diagnosis Nausea and vomiting, unspecified vomiting type- Primary documented in this encounter [facility]* Diagnosis Abnormal mammogram- Primary Abnormal mammogram, unspecified documented [facility] this encounter [facility]* Diagnosis Centrilobular emphysema (HCC) Other emphysema documented [facility]* Diagnosis Centrilobular emphysema (HCC)- Primary Other emphysema Chronic bronchitis, unspecified chronic bronchitis type (HCC) Cigarette smoker Tobacco use disorder documented [facility] this encounter [facility]* Diagnosis Nausea- Primary Nausea alone History of vomiting Personal history of other specified diseases documented in this encounter [facility]* Diagnosis Acute sinusitis, recurrence not specified, unspecified location- Primary documented in this encounter [facility]* Diagnosis Encounter related to worker's compensation claim- Primary Other general medical examination for administrative purposes documented in this encounter [facility] Diagnosis Partial thickness burn of right foot, initial encounter- Primary documented in this encounter [facility] Diagnosis Partial thickness burn of right foot, initial encounter [facility] Diagnosis Partial thickness burn of right foot, initial encounter- Primary Centrilobular emphysema (HCC)- Primary Other emphysema Current smoker Tobacco use disorder [facility] this [facility] Diagnosis Partial thickness burn of right foot, initial encounter- Primary Cellulitis of skin Cellulitis and abscess of unspecified site documented in this encounter [facility] Diagnosis Partial thickness burn of right foot, sequela- Primary documented in this encounter [facility] Diagnosis Visit for wound check- Primary Encounter for other specified aftercare [facility] Diagnosis Preop examination- Primary Preoperative examination, unspecified documented [facility] this encounter [facility] Diagnosis Viral URI with cough- Primary Acute upper respiratory infections of unspecified site COPD with exacerbation (HCC) Obstructive chronic bronchitis with exacerbation Persistent cough Cough Suspected COVID-19 virus infection documented [facility] this [facility] Diagnosis Pre-op evaluation- Primary Preoperative examination, unspecified Partial thickness burn of right foot, subsequent encounter COPD with exacerbation (HCC) Obstructive chronic bronchitis with exacerbation 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 [facility] Diagnosis Procedure not carried out- Primary Procedure not carried out for other reasons documented [facility] this encounter [facility] Diagnosis Acute pain of left shoulder documented in this [facility] Diagnosis Productive cough Cough documented in this encounter [facility] Diagnosis Fall, initial encounter Rib pain on left side Chest pain, unspecified Injury of left wrist, initial encounter [facility] Diagnosis Productive cough Cough [facility] Diagnosis Acute cough [facility] in this [facility] Diagnosis Visit for wound check- Primary Encounter for other specified aftercare [facility] Diagnosis Respiratory infection- Primary Other diseases of respiratory system, not elsewhere classified [facility] Diagnosis Cat scratch- Primary Other and unspecified superficial injury of other, multiple, and unspecified sites, without mention of infection Phlegm in throat Abnormal sputum [facility]* Diagnosis Centrilobular emphysema (HCC)- Primary Other emphysema Simple chronic bronchitis (HCC) Simple chronic bronchitis Cigarette smoker Tobacco use disorder Productive cough Cough Gastroesophageal reflux disease, unspecified whether esophagitis present Productive cough Cough documented [facility] this encounter [facility] Diagnosis Vaginal discharge- Primary Leukorrhea, not specified as infective Urinary frequency [facility] Diagnosis Productive cough Cough documented in this [facility] Diagnosis Impacted cerumen of right ear- Primary Impacted cerumen documented in this encounter [facility]* Diagnosis Pulmonary emphysema, unspecified emphysema type (HCC)- Primary [facility]* Diagnosis Abnormal mammogram Abnormal mammogram, unspecified documented in this encounter [facility] Diagnosis URI, acute- Primary Acute upper respiratory infections of unspecified site [facility]* Diagnosis Viral URI- Primary Acute upper respiratory infections of unspecified site Paresthesias in right hand Disturbance of skin sensation [facility] Diagnosis Chronic obstructive pulmonary disease with (acute) exacerbation (HCC) Acute upper respiratory infection Acute upper respiratory infections of unspecified site documented in this encounter [facility] note* Diagnosis COPD with exacerbation (HCC)- Primary Obstructive chronic bronchitis with exacerbation Tobacco use Tobacco use disorder documented in this encounter [facility] note* Diagnosis Mouth pain- Primary Other and unspecified diseases of the oral soft tissues documented [facility] this [facility] Diagnosis Cough with sputum- Primary Cough Right lower quadrant abdominal pain Abdominal pain, right lower quadrant [facility] Dis[facility] instructions Additional Instructions CT head negative. Use Tylenol as needed. Follow-up your doctor.[facility] Work Phone: Hospital Discharge instructionsAmbulatory Orders* Dermatology Location: None Selected [facility] Work Phone: Hospital Discharge instructionsAdditional Instructions Take Tylenol every 6 hours as needed. If you feel your symptoms are worsening such as severe headache, vomiting, vision changes or trouble moving your arms and legs etc. come back to the emergency room.[facility] Work Phone: Hospital Discharge instructionsAmbulatory Orders* Gastroenterology Location: None Selected [facility] Work Phone: Reason for referral (narrative)* Diagnostic Procedure Only (Routine) - Pending Review Specialty Diagnoses / Procedures Referred By Xi manning Referred To Contact [facility] Diagnoses Encounter for screening mammogram for breast cancer Procedures ANALIA SCREENING SCREENING MAMMOGRAPHY BI 2-VIEW BREAST INC CAD Prudencio Pedro MD [address] [place] [address] [facility] Imaging [address] [place] [address] Referral ID Status Reason Start Date Expiration Date Visits Requested Visits Authorized [id number] Pending Review Auto-Generat ed Referral 01/20/2022 02/19/2023 1 1 [facility] for referral (narrative)* Outpatient Procedure (Routine) - Pending Review Specialty Diagnoses / Procedures Referred By Contac t Referred To Contact [facility] [place] Diagnoses Persistent cough Tobacco use Procedures LUNG VOLUMES Prudencio Pedro MD [address] [place] [address] [address] Referral ID Status Reason Start Date Expiration Date Visits Requested Visits Authorized [id number] Pending Review Auto-Generat ed Referral 02/18/2022 03/20/2023 1 1 * Outpatient Procedure (Routine) - Authorized Specialty Diagnoses / Procedures Referred By Contac t Referred To Contact [facility] [place] Diagnoses Persistent cough Tobacco use Procedures SPIROMETRY - BASELINE AND POST DILATOR BRNCDILAT RSPSE SPMTRY PRE&POST-BRNCDILAT ADMN Prudencio Pedro MD [address] [place] [address] [place] [id number] Referral ID Status Reason Start Date Expiration Date Visits Requested Visits Authorized [id number] Authorized Auto-Generat ed Referral 02/18/2022 03/20/2023 1 1 [facility] for referral (narrative)* Diagnostic Procedure Only (Routine) - Pending Review Specialty Diagnoses / Procedures Referred By Contac t Referred To Contact [facility] [place] Diagnoses Fatigue, unspecified type Daytime somnolence Procedures HOME SLEEP APNEA TEST (HSAT) SLEEP STD AIRFLOW HRT RATE&O2 SAT EFFORT UNADiamond Trivedi APRN.CNP [address] [place] [address] [place] [address] Referral ID Status Reason Start Date Expiration Date Visits Requested Visits Authorized [id number] Pending Review Auto-Generat ed Referral 08/02/2022 08/02/2023 1 1 [facility] for referral (narrative)* Outpatient Procedure (Routine) - Pending Review Specialty Diagnoses / Procedures Referred By Xi manning Referred To [facility] Diagnoses Chronic obstructive pulmonary disease, unspecified COPD type (HCC) Procedures SPIROMETRY WITH DILATOR IF OBSTRUCTED BRNCDILAT RSPSE SPMTRY PRE&POST-BRNCDILAT Judith Saleh MD [address] [place] [address] [facility] [place] [address] [place] [address] Referral ID Status Reason Start Date Expiration Date Visits Requested Visits Authorized [id number] Pending Review Auto-Generat ed Referral 08/27/2022 09/25/2023 1 1 [facility] for referral (narrative)* Diagnostic Procedure Only (Routine) - Pending Review Specialty Diagnoses / Procedures Referred By Xi manning Referred To Contact [facility] Diagnoses Abnormal mammogram Procedures US BREAST LTD RIGHT US BREAST UNI REAL TIME WITH IMAGE LIMITED Prudencio Pedro MD [address] [place] [address] [facility] [address] [place] [address] Referral ID Status Reason Start Date Expiration Date Visits Requested Visits Authorized [id number] Pending Review Auto-Generat ed Referral 04/20/2023 11/18/2023 1 1 * Diagnostic Procedure Only (Routine) - Authorized Specialty Diagnoses / Procedures Referred By Xi manning Referred To Contact [facility] Diagnoses Abnormal mammogram Procedures ANALIA DIAGNOSTIC RIGHT DIAGNOSTIC MAMMOGRAPHY COMPUTER-AIDED DETCJ UNI Prudencio Pedro MD [address] [place] [address] [facility] Imaging [address] [place] [address] Referral ID Status Reason Start Date Expiration Date Visits Requested Visits Authorized [id number] Authorized Auto-Generat ed Referral 04/20/2023 11/18/2023 1 1 [facility] for referral (narrative)* Outpatient Procedure (Routine) - Authorized Specialty Diagnoses / Procedures [facility] Diagnoses Centrilobular emphysema (HCC) Procedures SPIROMETRY WITH DILATOR IF OBSTRUCTED BRNCDILAT RSPSE SPMTRY PRE&POST-BRNCDILAT ADMJudith Alfonso MD [address] [facility] [place] [address] [facility] [place] [address] [place] [address] Referral ID Status Reason Start Date Expiration Date Visits Requested Visits Authorized [id number] Authorized Auto-Generat ed Referral 03/14/2023 04/12/2024 1 1 [facility] for referral (narrative)* Diagnostic Procedure Only (Routine) - Authorized Specialty Diagnoses / Procedures [facility] Referred To Contact [facility] Diagnoses Abnormal mammogram Procedures ANALIA DIAGNOSTIC RIGHT DIAGNOSTIC MAMMOGRAPHY COMPUTER-AIDED DETCJ UNI Prudencio Pedro MD [address] [place] [address] [facility] [address] [place] [address] Referral ID Status Reason Start Date Expiration Date Visits Requested Visits Authorized [id number] Authorized Auto-Generat ed Referral 05/18/2023 06/16/2024 1 1 * Diagnostic Procedure Only (Routine) - Pending Review Specialty Diagnoses / Procedures [facility] Referred To Contact [facility] Diagnoses Abnormal mammogram Procedures US BREAST LTD RIGHT US BREAST UNI REAL TIME WITH IMAGE LIMITED Prudencio Pedro MD [address] [place] [address] [facility] Imaging [address] [place] [address] Referral ID Status Reason Start Date Expiration Date Visits Requested Visits Authorized [id number] Pending Review Auto-Generat ed Referral 05/18/2023 06/16/2024 1 1 [facility] for referral (narrative)* Diagnostic Procedure Only (Routine) - Closed Specialty Diagnoses / Procedures Referred By Mireyaac t Referred To Contact XR IMAGING Diagnoses Pain in left wrist Procedures XR WRIST GENERAL 3V PA/LAT/OBL LEFT RADEX WRIST COMPLETE MINIMUM 3 VIEWS Bruce Wilson MD [address] [place] [address] Xr Imaging [facility]95 Referral ID Status Reason Start Date Expiration Date V isits Requested Visits Authorized [id number] Closed Auto-Generate d Referral 05/04/2023 06/02/2024 1 1 [facility] for referral (narrative)* Diagnostic Procedure Only (Routine) - Closed Specialty Diagnoses / Procedures Referred By Xi t Referred To Contact [facility] IM[facility] Diagnoses Abnormal mammogram Procedures US BREAST LTD RT US BREAST UNI REAL TIME WITH IMAGE LIMITED Prudencio Pedro MD [address] [place] [address] Br Imaging [address] [place] [address] Referral ID Status Reason Start Date Expiration Date V isits Requested Visits Authorized [id number] Closed Auto-Generate d Referral 09/15/2022 10/15/2023 1 1 T [facility] for referral (narrative)* Diagnostic Procedure Only (Routine) - Closed Specialty Diagnoses / Procedures Referred By Contac t Referred To Contact [facility] IM[facility] Diagnoses Encounter for screening mammogram for breast cancer Procedures ANALIA SCREENING SCREENING MAMMOGRAPHY BI 2-VIEW BREAST INC CAD Prudencio Pedro MD [address] [place] [address] [facility] Imaging [address] [facility] [place] [address] Referral ID Status Reason Start Date Expiration Date V isits Requested Visits Authorized [id number] Closed Auto-Generate d Referral 01/20/2022 02/19/2023 1 1 [facility] for referral (narrative)* Diagnostic Procedure Only (Routine) - Closed Specialty Diagnoses / Procedures Referred By Xi manning Referred To Contact [facility] Diagnoses Abnormal mammogram Procedures US BREAST LTD RIGHT US BREAST UNI REAL TIME WITH IMAGE LIMITED Prudencio Pedro MD [address] [place] [address] Br Imaging [address] [place] [address] Referral ID Status Reason Start Date Expiration Date V isits Requested Visits Authorized [id number] Closed Auto-Generate d Referral 04/20/2023 11/18/2023 1 1 [facility] for referral (narrative)* Outpatient Procedure (Routine) - Authorized Specialty Diagnoses / Procedures Referred By Xi manning Referred To Contact [facility] Diagnoses Screening for colon cancer Procedures COLONOSCOPY SCREENING COLONOSCOPY FLX DX W/COLLJ SPEC WHEN PFRMD Diamond Bright APRN.CNP [address] [place] [address] [facility] [place] [facility] [place] [address] Referral ID Status Reason Start Date Expiration Date Visits Requested Visits Authorized [id number] Authorized Auto-Generat ed Referral 09/07/2023 09/07/2024 1 1 [facility] for referral (narrative)* Diagnostic Procedure Only (Routine) - Pending Review Specialty Diagnoses / Procedures Referred By Xi manning Referred To Contact [facility] Diagnoses Encounter for screening mammogram for breast cancer Procedures ANALIA SCREENING SCREENING MAMMOGRAPHY BI 2-VIEW BREAST INC CAD Prudencio Pedro MD [address] [place] [address] Br Imaging [address] [place] [address] Referral ID Status Reason Start Date Expiration Date Visits Requested Visits Authorized [id number] Pending Review Auto-Generat ed Referral 10/19/2023 11/17/2024 1 1 [facility] for referral (narrative)* Diagnostic Procedure Only (Routine) - Pending Review Specialty Diagnoses / Procedures Referred By Contac t Referred To Contact [facility] Diagnoses Abnormal mammogram Procedures ANALIA DIAGNOSTIC BILATERAL DIAGNOSTIC MAMMOGRAPHY COMPUTER-AIDED DETCJ BI Diamond Bright APRN.[employer] DIV[employer] SUPERVISOR [address] [place] [address] Br Imaging [address] [place] [address] Referral ID Status Reason Start Date Expiration Date Visits Requested Visits Authorized [id number] Pending Review Auto-Generat ed Referral 11/01/2023 11/30/2024 1 1 [facility] for referral (narrative)* Outpatient Procedure (Routine) - New Request Specialty Diagnoses / Procedures [facility] Diagnoses Pre-op evaluation Procedures ECG COMPLETE ECG ROUTINE ECG W/LEAST 12 LDS W/I&R Prudencio Pedro MD [address] [place] [address] [facility] [place] [address] [place] [address] Referral ID Status Reason Start Date Expiration Date Visits Requested Visits Authorized [id number] New Request Auto-Generat ed Referral 03/21/2024 03/21/2025 1 1 [facility] for referral (narrative)* Diagnostic Procedure Only (Urgent) - Closed Specialty Diagnoses / Procedures Referred By Contac t Referred To Contact XR IMAGING Diagnoses Acute pain of left shoulder Procedures XR SHOULDER GENERAL 3V OR MORE AP/TRUE AP/OTHER LEFT RADEX SHOULDER COMPLETE MINIMUM [address] [facility] [address] [place] [address] [place] [address] Referral ID Status Reason Start Date Expiration Date V isits Requested Visits Authorized [id number] Closed Auto-Generate d Referral 06/13/2023 07/12/2024 1 1 [facility] for referral (narrative)* Diagnostic Procedure Only (Routine) - Closed Specialty Diagnoses / Procedures Referred By Contac t Referred To Contact XR IMAGING Diagnoses Fall, initial encounter Injury of left wrist, initial encounter Procedures XR WRIST GENERAL 3V PA/LAT/OBL LEFT RADEX WRIST COMPLETE MINIMUM 3 VIEWS Aliyah Araujo APRN.[employer] SUPERVISOR [address] [place] [address] [place] [address] Referral ID Status Reason Start Date Expiration Date V isits Requested Visits Authorized [id number] Closed Auto-Generate d Referral 04/18/2023 05/17/2024 1 1 * Diagnostic Procedure Only (Routine) - Closed Specialty Diagnoses / Procedures Referred By Contac t Referred To Contact XR IMAGING Diagnoses Fall, initial encounter Rib pain on left side Procedures XR RIBS 2V AP/OBL LEFT RADEX RIBS UNILATERAL 2 VIEWS Aliyah Araujo APRN.[employer] SUPERVISOR [address] [place] [address] [place] [address] Referral ID Status Reason Start Date Expiration Date V isits Requested Visits Authorized [id number] Closed Auto-Generate d Referral 04/18/2023 05/17/2024 1 1 [facility] for referral (narrative)* Outpatient Procedure (Routine) - New Request Specialty Diagnoses / Procedures Referred By Contac t Referred To Contact [facility] Diagnoses Pulmonary emphysema, unspecified emphysema type (HCC) Procedures LUNG VOLUMES Anais Metcalf APRN.[employer] SUPERVISOR [address] [place] [address] [facility] [place] [address] [place] [id number] Referral ID Status Reason Start Date Expiration Date Visits Requested Visits Authorized [id number] New Request Auto-Generat ed Referral 08/22/2024 09/21/2025 1 1 * Outpatient Procedure (Routine) - New Request Specialty Diagnoses / Procedures Referred By Xi manning Referred To [facility] Diagnoses Pulmonary emphysema, unspecified emphysema type (HCC) Procedures SPIROMETRY WITH DILATOR IF OBSTRUCTED BRNCDILAT RSPSE SPMTRY PRE&POST-BRNCDILAT ADMN Anais Metcalf APRN.ANALILIA [address] [place] [id number] [facility] [place] [address] [place] [id number] Referral ID Status Reason Start Date Expiration Date Visits Requested Visits Authorized [id number] New Request Auto-Generat ed Referral 08/22/2024 09/21/2025 1 1 [facility])No reason for referral information availableWWood County Hospital Work Phone: Reason for visit Narrative* Diagnostic Procedure Only (Routine) - Closed Specialty Diagnoses / Procedures Referred By Xi manning Referred To Contact XR IMAGING Diagnoses Pain in left wrist Procedures XR WRIST GENERAL 3V PA/LAT/OBL LEFT RADEX WRIST COMPLETE MINIMUM 3 VIEWS Bruce Wilson MD [address] [place] [address] Xr Imaging [place] [address] Referral ID Status Reason Start Date Expiration Date V isits Requested Visits Authorized [id number] Closed Auto-Generate d Referral 05/04/2023 06/02/2024 1 1 [facility] for visit Narrative* Diagnostic Procedure Only (Routine) - Closed Specialty Diagnoses / Procedures Referred By Xi manning Referred To Contact [facility] IM[facility] Diagnoses Encounter for screening mammogram for breast cancer Procedures ANALIA SCREENING SCREENING MAMMOGRAPHY BI 2-VIEW BREAST INC CAD Prudencio Pedro MD [address] [place] [address] Br Imaging [address] [place] [address] Referral ID Status Reason Start Date Expiration Date V isits Requested Visits Authorized [id number] Closed Auto-Generate d Referral 01/20/2022 02/19/2023 1 1 [facility] for visit Narrative* Diagnostic Procedure Only (Routine) - Closed Specialty Diagnoses / Procedures Referred By Contac t Referred To Contact BR IMAG[facility] Diagnoses Abnormal mammogram Procedures ANALIA DIAGNOSTIC RIGHT DIAGNOSTIC MAMMOGRAPHY COMPUTER-AIDED DETCJ Prudencio Campoverde MD [address] [place] [address] Br Imaging [address] [place] [address] Referral ID Status Reason Start Date Expiration Date V isits Requested Visits Authorized [id number] Closed Auto-Generate d Referral 04/20/2023 11/18/2023 1 1 [facility] for visit Narrative* Diagnostic Procedure Only (Routine) - Closed Specialty Diagnoses / Procedures Referred By Contac t Referred To Contact [facility] IMAG[facility] Diagnoses Abnormal mammogram Procedures ANALIA DIAGNOSTIC RT DIAGNOSTIC MAMMOGRAPHY COMPUTER-AIDED DETCJ Purdencio Campoverde MD [address] [place] [address] Br Imaging [address] [place] [address] Referral ID Status Reason Start Date Expiration Date V isits Requested Visits Authorized [id number] Closed Auto-Generate d Referral 09/15/2022 10/15/2023 1 1 [facility] for visit Narrative* Diagnostic Procedure Only (Urgent) - Closed Specialty Diagnoses / Procedures Referred By Contac t Referred To Contact XR IMAGING Diagnoses Acute pain of left shoulder Procedures XR SHOULDER GENERAL 3V OR MORE AP/TRUE AP/OTHER LEFT RADEX SHOULDER COMPLETE MINIMUM 2 VIEWS [facility] [address] [place] [address] [place] [address] Referral ID Status Reason Start Date Expiration Date V isits Requested Visits Authorized [id number] Closed Auto-Generate d Referral 06/13/2023 07/12/2024 1 1 [facility] for visit Narrative* Diagnostic Procedure Only (Routine) - Closed Specialty Diagnoses / Procedures Referred By Contac t Referred To Contact XR IMAGING Diagnoses Fall, initial encounter Injury of left wrist, initial encounter Procedures XR WRIST GENERAL 3V PA/LAT/OBL LEFT RADEX WRIST COMPLETE MINIMUM 3 VIEWS Aliyah Araujo, ESL TUTOR.[employer] SUPERVISOR [address] [place] [address] [place] [address] Referral ID Status Reason Start Date Expiration Date V isits Requested Visits Authorized [id number] Closed Auto-Generate d Referral 04/18/2023 05/17/2024 1 1 [facility] Reason for Referral Specialty Diagnoses / Procedures Referred By Contac t Referred To Contact Diagnoses Acute cough Podlogar, Diamond, ESL TUTOR.[employer] SUPERVISOR [address] [place] [address] Referral ID Status Reason Start Date Expiration Date Visits Re quested Visits Authorized [id number] Closed 1 1 Specialty Diagnoses / Procedures Referred By Contac t Referred To Contact Orthopedics Diagnoses Acute pain of left shoulder Procedures CONSULT TO ORTHOPAEDICS OFFICE/OUTPATIENT [facility] 60-74 MINUTES [facility] [address] [place] [address] Referral ID Status Reason Start Date Expiration Date Visits Requested Visits Authorized [id number] Authorized PCP Requested Referral 06/12/2024 1 1 Specialty Diagnoses / Procedures Referred By Contac t Referred To Contact XR IMAGING Diagnoses Acute pain of left shoulder Procedures XR SHOULDER GENERAL 3V OR MORE AP/TRUE AP/OTHER LEFT RADEX SHOULDER COMPLETE MINIMUM 2 VIEWS [facility] [address] [place] [address] [place] [address] Referral ID Status Reason Start Date Expiration Date V isits Requested Visits Authorized [id number] Closed Auto-Generate d Referral 06/13/2023 07/12/2024 1 1 Advance Directives Advance Directive Response Recorded Date/ Time Living Will No May 15 11:48am Power of Recycle Coordinator No May 15, 2019 11:48am Advance Directive Response Recorded Date/ Time Living Will No March 18 10:15am Power of Recycle Coordinator No March 18, 2022 10:15am Advance Directive Response Recorded Date/ Time Living Will No March 18 9:15am Power of Recycle Coordinator No March 18, 2022 9:15am Advance Directive Response Recorded Date/ Time Living Will No March 03 11:10am Power of Recycle Coordinator No March 03 11:10am Living Will No August 01 5:09pm Power of Recycle Coordinator No August 01, 2024 5:09pm Advance Directive Response Recorded Date/ Time Living Will No March 03 11:10am Power of Recycle Coordinator No March 03 11:10am Living Will No September 25, 2024 8:37pm Power of Recycle Coordinator No September 25 8:37pm Living Will No August 01 5:09pm Power of Recycle Coordinator No August 01, 2024 5:09pm Advance Directive Response Recorded Date/ Time Living Will No March 03 11:10am Do you have a Healthcare Power of Recycle Coordinator? No March 03, 2024 11:10am Living Will No September 25, 2024 8:37pm Do you have a Healthcare Power of Recycle Coordinator? No September 25, 2024 8:37pm Living Will No August 01 5:09pm Do you have a Healthcare Power of Recycle Coordinator? No August 01, 2024 5:09pm Advance Directive Response Recorded Date/ Time Living Will No March 03 11:10am Do you have a Healthcare Power of Recycle Coordinator? No March 03, 2024 11:10am Living Will No September 25, 2024 8:37pm Do you have a Healthcare Power of Recycle Coordinator? No September 25, 2024 8:37pm Do you have a Healthcare Power of Recycle Coordinator? No November 26, 2024 7:02am Living Will No August 01 5:09pm Do you have a Healthcare Power of Recycle Coordinator? No August 01, 2024 5:09pm Advance Directive Response Recorded Date/ Time Do you have a Healthcare Power of Recycle Coordinator? No November 26, 2024 7:02am Do you have a Healthcare Power of Recycle Coordinator? No February 07, 2025 11:25am Advance Directive Response Recorded Date/ Time Do you have a Healthcare Power of Recycle Coordinator? No November 26, 2024 7:02am Do you have a Healthcare Power of Recycle Coordinator? No February 07, 2025 11:25am Do you have a Healthcare Power of Recycle Coordinator? 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 - PPW SENT August 13 9:26am Lung Cancer Screening September 11 11:29am SCREENING September 11, 2024 12:21pm EARS AND HEAD INJURY ISSUES August 9:30am E-ORDER September 14, 2024 11:23am Reason for Visit Admit Date Cerumen impaction August 13, 2024 9 :26am Encounter to establish care July 9:26am HIV (human immunodeficiency virus infect ion) August 13, 2024 9:26am Preventative health care August 13 9:26am COPD (chronic obstructive pulmonary dise ase) August 13, 2024 9:26am Encounter for screening for malignant ne oplasm of lung September 11, 2024 11:29am Tobacco use disorder, continuous Februar 2024 11:29am Acute pain of both ears September 14 025 9:30am Tinnitus September 14, 2024 9:30am Chronic back pain September 14, 2024 9:30am Headache September 14, 2024 9:30am Pain, dental September 14, 2024 9:30am Chief Complaint Admit Date headache August 01, 2024 3 :35pm 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 August 13 9:26am Lung Cancer Screening September 11 11:29am SCREENING September 11, 2024 12:21pm EARS AND HEAD INJURY ISSUES August 9:30am E-ORDER September 14, 2024 11:23am SCREENING September 25, 2024 9:1 7am HEAD INJURY September 25, 2024 4:4 0pm ACUTE FU FROM BONE DENSITY-OK PER DR JANUARY WEINER October 04, 2024 12:46pm Reason for Visit Admit Date Cerumen impaction August 13, 2024 9 :26am Encounter to establish care July 9:26am HIV (human immunodeficiency virus infect ion) August 13, 2024 9:26am Preventative health care August 13, 025 9:26am COPD (chronic obstructive pulmonary dise ase) August 13, 2024 9:26am Encounter for screening for malignant ne oplasm of lung September 11, 2024 11:29am Tobacco use disorder, continuous Februar 2024 11:29am Acute pain of both ears September 14, 025 9:30am Tinnitus September 14, 2024 9:30am Chronic back pain September 14, 2024 9:30am Headache September 14, 2024 9:30am Pain, dental September 14, 2024 9:30am Drug-induced pruritus October 04, 2024 1 2:46pm Osteoporosis October 04, 2024 12: 46pm Pigmented skin lesion of uncertain behav ior of torso October 04, 2024 12:46pm Chief Complaint Admit Date headache August 01, 2024 3 :35pm 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 August 13 9:26am Lung Cancer Screening September 11 11:29am SCREENING September 11, 2024 12:21pm EARS AND HEAD INJURY ISSUES August 9:30am E-ORDER September 14, 2024 11:23am SCREENING September 25, 2024 9:1 7am HEAD INJURY September 25, 2024 4:4 0pm ACUTE FU FROM BONE DENSITY-OK PER DR JANUARY WEINER October 04, 2024 12:46pm RIGHT BREAST November 05, 2024 9:0 5am sob November 26, 2024 7:02a m ACUTE [facility] FU-LEAVE 60 MIN November 28, 2024 2:47pm Chief Complaint Admit Date RIGHT BREAST November 05, 2024 9:0 5am sob November 26, 2024 7:02a m ACUTE [facility] FU-LEAVE 60 MIN November 28, 2024 2:47pm head injury February 07, 2025 11:0 9am Reason for Visit Admit Date Tobacco use disorder, continuous November 2:47pm Chronic pain November 28, 2024 2:47p m Viral upper respiratory tract infection with cough November 28, 2024 2:47pm Chief Complaint Admit Date RIGHT BREAST November 05, 2024 9:0 5am sob November 26, 2024 7:02a m ACUTE [facility] FU-LEAVE 60 MIN November 28, 2024 2:47pm head injury February 07, 2025 11:0 9am 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, 2025 12:31pm Chief Complaint Admit Date RIGHT BREAST November 05, 2024 9:0 5am sob November 26, 2024 7:02a m ACUTE [facility] FU-LEAVE 60 MIN November 28, 2024 2:47pm head injury February 07, 2025 11:0 9am 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, 2025 12:31pm 6 M FU February 15, 2025 10: 07am Chief Complaint Admit Date sob November 26, 2024 7:02a m ACUTE [facility] FU-LEAVE 60 MIN November 28, 2024 2:47pm head injury February 07, 2025 11:0 9am 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, 2025 12:31pm 6 M FU February 15, 2025 10: 07am abd pain, mucus March 08, 2025 8: 40am Reason for Visit Admit Date Tobacco use disorder, continuous November 2:47pm Chronic pain November 28, 2024 2:47p m Viral upper respiratory tract infection with cough November 28, 2024 2:47pm Abnormal kidney function February 15 10:07am Muscle cramps February 15, 2025 10: 07am Tobacco use disorder, continuous February 15, 2025 10:07am COPD (chronic obstructive pulmonary dise ase) February 15, 2025 10:07am HIV (human immunodeficiency virus infect ion) February 15, 2025 10:07am Osteoporosis February 15, 2025 10: 07am Rhinitis February 15, 2025 10: 07am Chief Complaint Admit Date sob November 26, 2024 7:02a m ACUTE [facility] FU-LEAVE 60 MIN November 28, 2024 2:47pm head injury February 07, 2025 11:0 9am 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, 2025 12:31pm 6 M FU February 15, 2025 10: 07am abd pain, mucus March 08, 2025 8: 40am Hospital Follow Up ([facility]) March 11 8:36am Reason for Visit Admit Date Tobacco use disorder, continuous November 2:47pm Chronic pain November 28, 2024 2:47p m Viral upper respiratory tract infection with cough November 28, 2024 2:47pm Abnormal kidney function February 15 10:07am Muscle cramps February 15, 2025 10: 07am Tobacco use disorder, continuous February 15, 2025 10:07am COPD (chronic obstructive pulmonary dise ase) February 15, 2025 10:07am HIV (human immunodeficiency virus infect ion) February 15, 2025 10:07am Osteoporosis February 15, 2025 10: 07am Rhinitis February 15, 2025 10: 07am Abdominal pain March 11, 2025 8: 36am Thickening of wall of gallbladder March 11, 2025 8:36am Chief Complaint Admit Date sob November 26, 2024 7:02a m ACUTE [facility] FU-LEAVE 60 MIN November 28, 2024 2:47pm head injury February 07, 2025 11:0 9am 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, 2025 12:31pm 6 M FU February 15, 2025 10: 07am abd pain, mucus March 08, 2025 8: 40am Hospital Follow Up ([facility]) March 11 8:36am [employer] March 15, 2025 3: 38pm Health Concerns Infection Onset Date Last Indicated [...] Rule-Out 03/30/2023 03/30/2023 03/31/2023 1:33 AM EDT Family History Relationship Condition Age at Onset Recorded Date/T matteo mother Alcoholism Unknown Arthritis Unknown Malignant neoplasm Unknown Osteoporosis Unknown father Alcoholism Unknown Angina at rest Unknown Diabetes mellitus Unknown Hypertension Unknown sister Alcoholism Unknown Blood clot in leg Unknown Mental disorder Unknown Attempted suicide Unknown aunt Malignant neoplasm of breast Unknown Summary Purpose Additional Source Comments Source Comments (unrecognize d section and content) In the event this informatio n is protected by the Federal Confidentiality of Alcohol and Drug Abuse Patient Records regulations: The Federal rules restrict any use of the information to criminally investigate or prosecute any alcohol or drug abuse patient.[facility] CenterIn the event this information is protected by the Federal Confidentiality of Alcohol and Drug Abuse Patient Records regulations: The Federal rules restrict any use of the information to criminally investigate or prosecute any alcohol or drug abuse patient.[facility] CenterIn the event this information is protected by the Federal Confidentiality of Alcohol and Drug Abuse Patient Records regulations: The Federal rules restrict any use of the information to criminally investigate or prosecute any alcohol or drug abuse patient.[facility] CenterIn the event this information is protected by the Federal Confidentiality of Alcohol and Drug Abuse Patient Records regulations: The Federal rules restrict any use of the information to criminally investigate or prosecute any alcohol or drug abuse patient.[facility] CenterIn the event this information is protected by the Federal Confidentiality of Alcohol and Drug Abuse Patient Records regulations: The Federal rules restrict any use of the information to criminally investigate or prosecute any alcohol or drug abuse patient.[facility] CenterIn the event this information is protected by the Federal Confidentiality of Alcohol and Drug Abuse Patient Records regulations: The Federal rules restrict any use of the information to criminally investigate or prosecute any alcohol or drug abuse patient.[facility] CenterIn the event this information is protected by the Federal Confidentiality of Alcohol and Drug Abuse Patient Records regulations: The Federal rules restrict any use of the information to criminally investigate or prosecute any alcohol or drug abuse patient.[facility] CenterIn the event this information is protected by the Federal Confidentiality of Alcohol and Drug Abuse Patient Records regulations: The Federal rules restrict any use of the information to criminally investigate or prosecute any alcohol or drug abuse patient.[facility] CenterIn the event this information is protected by the Federal Confidentiality of Alcohol and Drug Abuse Patient Records regulations: The Federal rules restrict any use of the information to criminally investigate or prosecute any alcohol or drug abuse patient.[facility] CenterIn the event this information is protected by the Federal Confidentiality of Alcohol and Drug Abuse Patient Records regulations: The Federal rules restrict any use of the information to criminally investigate or prosecute any alcohol or drug abuse patient.[facility] CenterIn the event this information is protected by the Federal Confidentiality of Alcohol and Drug Abuse Patient Records regulations: The Federal rules restrict any use of the information to criminally investigate or prosecute any alcohol or drug abuse patient.[facility] CenterIn the event this information is protected by the Federal Confidentiality of Alcohol and Drug Abuse Patient Records regulations: The Federal rules restrict any use of the information to criminally investigate or prosecute any alcohol or drug abuse patient.[facility] CenterIn the event this information is protected by the Federal Confidentiality of Alcohol and Drug Abuse Patient Records regulations: The Federal rules restrict any use of the information to criminally investigate or prosecute any alcohol or drug abuse patient.[facility] CenterIn the event this information is protected by the Federal Confidentiality of Alcohol and Drug Abuse Patient Records regulations: The Federal rules restrict any use of the information to criminally investigate or prosecute any alcohol or drug abuse patient.[facility] CenterIn the event this information is protected by the Federal Confidentiality of Alcohol and Drug Abuse Patient Records regulations: The Federal rules restrict any use of the information to criminally investigate or prosecute any alcohol or drug abuse patient.[facility] CenterIn the event this information is protected by the Federal Confidentiality of Alcohol and Drug Abuse Patient Records regulations: The Federal rules restrict any use of the information to criminally investigate or prosecute any alcohol or drug abuse patient.[facility] CenterIn the event this information is protected by the Federal Confidentiality of Alcohol and Drug Abuse Patient Records regulations: The Federal rules restrict any use of the information to criminally investigate or prosecute any alcohol or drug abuse patient.[facility] CenterIn the event this information is protected by the Federal Confidentiality of Alcohol and Drug Abuse Patient Records regulations: The Federal rules restrict any use of the information to criminally investigate or prosecute any alcohol or drug abuse patient.[facility] CenterIn the event this information is protected by the Federal Confidentiality of Alcohol and Drug Abuse Patient Records regulations: The Federal rules restrict any use of the information to criminally investigate or prosecute any alcohol or drug abuse patient.[facility] CenterIn the event this information is protected by the Federal Confidentiality of Alcohol and Drug Abuse Patient Records regulations: The Federal rules restrict any use of the information to criminally investigate or prosecute any alcohol or drug abuse patient.[facility] CenterIn the event this information is protected by the Federal Confidentiality of Alcohol and Drug Abuse Patient Records regulations: The Federal rules restrict any use of the information to criminally investigate or prosecute any alcohol or drug abuse patient.[facility] CenterIn the event this information is protected by the Federal Confidentiality of Alcohol and Drug Abuse Patient Records regulations: The Federal rules restrict any use of the information to criminally investigate or prosecute any alcohol or drug abuse patient.[facility] CenterIn the event this information is protected by the Federal Confidentiality of Alcohol and Drug Abuse Patient Records regulations: The Federal rules restrict any use of the information to criminally investigate or prosecute any alcohol or drug abuse patient.[facility] CenterIn the event this information is protected by the Federal Confidentiality of Alcohol and Drug Abuse Patient Records regulations: The Federal rules restrict any use of the information to criminally investigate or prosecute any alcohol or drug abuse patient.[facility] CenterIn the event this information is protected by the Federal Confidentiality of Alcohol and Drug Abuse Patient Records regulations: The Federal rules restrict any use of the information to criminally investigate or prosecute any alcohol or drug abuse patient.[facility] CenterIn the event this information is protected by the Federal Confidentiality of Alcohol and Drug Abuse Patient Records regulations: The Federal rules restrict any use of the information to criminally investigate or prosecute any alcohol or drug abuse patient.[facility] CenterIn the event this information is protected by the Federal Confidentiality of Alcohol and Drug Abuse Patient Records regulations: The Federal rules restrict any use of the information to criminally investigate or prosecute any alcohol or drug abuse patient.[facility] CenterIn the event this information is protected by the Federal Confidentiality of Alcohol and Drug Abuse Patient Records regulations: The Federal rules restrict any use of the information to criminally investigate or prosecute any alcohol or drug abuse patient.[facility] CenterIn the event this information is protected by the Federal Confidentiality of Alcohol and Drug Abuse Patient Records regulations: The Federal rules restrict any use of the information to criminally investigate or prosecute any alcohol or drug abuse patient.[facility] CenterIn the event this information is protected by the Federal Confidentiality of Alcohol and Drug Abuse Patient Records regulations: The Federal rules restrict any use of the information to criminally investigate or prosecute any alcohol or drug abuse patient.[facility] CenterIn the event this information is protected by the Federal Confidentiality of Alcohol and Drug Abuse Patient Records regulations: The Federal rules restrict any use of the information to criminally investigate or prosecute any alcohol or drug abuse patient.[facility] CenterIn the event this information is protected by the Federal Confidentiality of Alcohol and Drug Abuse Patient Records regulations: The Federal rules restrict any use of the information to criminally investigate or prosecute any alcohol or drug abuse patient.[facility] CenterIn the event this information is protected by the Federal Confidentiality of Alcohol and Drug Abuse Patient Records regulations: The Federal rules restrict any use of the information to criminally investigate or prosecute any alcohol or drug abuse patient.[facility] CenterIn the event this information is protected by the Federal Confidentiality of Alcohol and Drug Abuse Patient Records regulations: The Federal rules restrict any use of the information to criminally investigate or prosecute any alcohol or drug abuse patient.[facility] CenterIn the event this information is protected by the Federal Confidentiality of Alcohol and Drug Abuse Patient Records regulations: The Federal rules restrict any use of the information to criminally investigate or prosecute any alcohol or drug abuse patient.[facility] CenterIn the event this information is protected by the Federal Confidentiality of Alcohol and Drug Abuse Patient Records regulations: The Federal rules restrict any use of the information to criminally investigate or prosecute any alcohol or drug abuse patient.[facility] CenterIn the event this information is protected by the Federal Confidentiality of Alcohol and Drug Abuse Patient Records regulations: The Federal rules restrict any use of the information to criminally investigate or prosecute any alcohol or drug abuse patient.[facility] CenterIn the event this information is protected by the Federal Confidentiality of Alcohol and Drug Abuse Patient Records regulations: The Federal rules restrict any use of the information to criminally investigate or prosecute any alcohol or drug abuse patient.[facility] CenterIn the event this information is protected by the Federal Confidentiality of Alcohol and Drug Abuse Patient Records regulations: The Federal rules restrict any use of the information to criminally investigate or prosecute any alcohol or drug abuse patient.[facility] CenterIn the event this information is protected by the Federal Confidentiality of Alcohol and Drug Abuse Patient Records regulations: The Federal rules restrict any use of the information to criminally investigate or prosecute any alcohol or drug abuse patient.[facility] CenterIn the event this information is protected by the Federal Confidentiality of Alcohol and Drug Abuse Patient Records regulations: The Federal rules restrict any use of the information to criminally investigate or prosecute any alcohol or drug abuse patient.[facility] CenterIn the event this information is protected by the Federal Confidentiality of Alcohol and Drug Abuse Patient Records regulations: The Federal rules restrict any use of the information to criminally investigate or prosecute any alcohol or drug abuse patient.[facility] CenterIn the event this information is protected by the Federal Confidentiality of Alcohol and Drug Abuse Patient Records regulations: The Federal rules restrict any use of the information to criminally investigate or prosecute any alcohol or drug abuse patient.[facility] CenterIn the event this information is protected by the Federal Confidentiality of Alcohol and Drug Abuse Patient Records regulations: The Federal rules restrict any use of the information to criminally investigate or prosecute any alcohol or drug abuse patient.[facility] CenterIn the event this information is protected by the Federal Confidentiality of Alcohol and Drug Abuse Patient Records regulations: The Federal rules restrict any use of the information to criminally investigate or prosecute any alcohol or drug abuse patient.[facility] CenterIn the event this information is protected by the Federal Confidentiality of Alcohol and Drug Abuse Patient Records regulations: The Federal rules restrict any use of the information to criminally investigate or prosecute any alcohol or drug abuse patient.[facility] CenterIn the event this information is protected by the Federal Confidentiality of Alcohol and Drug Abuse Patient Records regulations: The Federal rules restrict any use of the information to criminally investigate or prosecute any alcohol or drug abuse patient.[facility] CenterIn the event this information is protected by the Federal Confidentiality of Alcohol and Drug Abuse Patient Records regulations: The Federal rules restrict any use of the information to criminally investigate or prosecute any alcohol or drug abuse patient.[facility] CenterIn the event this information is protected by the Federal Confidentiality of Alcohol and Drug Abuse Patient Records regulations: The Federal rules restrict any use of the information to criminally investigate or prosecute any alcohol or drug abuse patient.[facility] CenterIn the event this information is protected by the Federal Confidentiality of Alcohol and Drug Abuse Patient Records regulations: The Federal rules restrict any use of the information to criminally investigate or prosecute any alcohol or drug abuse patient.[facility] CenterIn the event this information is protected by the Federal Confidentiality of Alcohol and Drug Abuse Patient Records regulations: The Federal rules restrict any use of the information to criminally investigate or prosecute any alcohol or drug abuse patient.[facility] CenterIn the event this information is protected by the Federal Confidentiality of Alcohol and Drug Abuse Patient Records regulations: The Federal rules restrict any use of the information to criminally investigate or prosecute any alcohol or drug abuse patient.[facility] CenterIn the event this information is protected by the Federal Confidentiality of Alcohol and Drug Abuse Patient Records regulations: The Federal rules restrict any use of the information to criminally investigate or prosecute any alcohol or drug abuse patient.[facility] CenterIn the event this information is protected by the Federal Confidentiality of Alcohol and Drug Abuse Patient Records regulations: The Federal rules restrict any use of the information to criminally investigate or prosecute any alcohol or drug abuse patient.[facility] CenterIn the event this information is protected by the Federal Confidentiality of Alcohol and Drug Abuse Patient Records regulations: The Federal rules restrict any use of the information to criminally investigate or prosecute any alcohol or drug abuse patient.[facility] CenterIn the event this information is protected by the Federal Confidentiality of Alcohol and Drug Abuse Patient Records regulations: The Federal rules restrict any use of the information to criminally investigate or prosecute any alcohol or drug abuse patient.[facility] CenterIn the event this information is protected by the Federal Confidentiality of Alcohol and Drug Abuse Patient Records regulations: The Federal rules restrict any use of the information to criminally investigate or prosecute any alcohol or drug abuse patient.[facility] CenterIn the event this information is protected by the Federal Confidentiality of Alcohol and Drug Abuse Patient Records regulations: The Federal rules restrict any use of the information to criminally investigate or prosecute any alcohol or drug abuse patient.[facility] CenterIn the event this information is protected by the Federal Confidentiality of Alcohol and Drug Abuse Patient Records regulations: The Federal rules restrict any use of the information to criminally investigate or prosecute any alcohol or drug abuse patient.[facility] CenterIn the event this information is protected by the Federal Confidentiality of Alcohol and Drug Abuse Patient Records regulations: The Federal rules restrict any use of the information to criminally investigate or prosecute any alcohol or drug abuse patient.[facility] CenterIn the event this information is protected by the Federal Confidentiality of Alcohol and Drug Abuse Patient Records regulations: The Federal rules restrict any use of the information to criminally investigate or prosecute any alcohol or drug abuse patient.[facility] CenterIn the event this information is protected by the Federal Confidentiality of Alcohol and Drug Abuse Patient Records regulations: The Federal rules restrict any use of the information to criminally investigate or prosecute any alcohol or drug abuse patient.[facility] CenterIn the event this information is protected by the Federal Confidentiality of Alcohol and Drug Abuse Patient Records regulations: The Federal rules restrict any use of the information to criminally investigate or prosecute any alcohol or drug abuse patient.[facility] CenterIn the event this information is protected by the Federal Confidentiality of Alcohol and Drug Abuse Patient Records regulations: The Federal rules restrict any use of the information to criminally investigate or prosecute any alcohol or drug abuse patient.[facility] CenterIn the event this information is protected by the Federal Confidentiality of Alcohol and Drug Abuse Patient Records regulations: The Federal rules restrict any use of the information to criminally investigate or prosecute any alcohol or drug abuse patient.[facility] CenterIn the event this information is protected by the Federal Confidentiality of Alcohol and Drug Abuse Patient Records regulations: The Federal rules restrict any use of the information to criminally investigate or prosecute any alcohol or drug abuse patient.[facility] CenterIn the event this information is protected by the Federal Confidentiality of Alcohol and Drug Abuse Patient Records regulations: The Federal rules restrict any use of the information to criminally investigate or prosecute any alcohol or drug abuse patient.[facility] CenterIn the event this information is protected by the Federal Confidentiality of Alcohol and Drug Abuse Patient Records regulations: The Federal rules restrict any use of the information to criminally investigate or prosecute any alcohol or drug abuse patient.[facility] CenterIn the event this information is protected by the Federal Confidentiality of Alcohol and Drug Abuse Patient Records regulations: The Federal rules restrict any use of the information to criminally investigate or prosecute any alcohol or drug abuse patient.[facility] CenterIn the event this information is protected by the Federal Confidentiality of Alcohol and Drug Abuse Patient Records regulations: The Federal rules restrict any use of the information to criminally investigate or prosecute any alcohol or drug abuse patient.[facility] CenterIn the event this information is protected by the Federal Confidentiality of Alcohol and Drug Abuse Patient Records regulations: The Federal rules restrict any use of the information to criminally investigate or prosecute any alcohol or drug abuse patient.[facility] CenterIn the event this information is protected by the Federal Confidentiality of Alcohol and Drug Abuse Patient Records regulations: The Federal rules restrict any use of the information to criminally investigate or prosecute any alcohol or drug abuse patient.[facility] CenterIn the event this information is protected by the Federal Confidentiality of Alcohol and Drug Abuse Patient Records regulations: The Federal rules restrict any use of the information to criminally investigate or prosecute any alcohol or drug abuse patient.[facility] CenterIn the event this information is protected by the Federal Confidentiality of Alcohol and Drug Abuse Patient Records regulations: The Federal rules restrict any use of the information to criminally investigate or prosecute any alcohol or drug abuse patient.[facility] CenterIn the event this information is protected by the Federal Confidentiality of Alcohol and Drug Abuse Patient Records regulations: The Federal rules restrict any use of the information to criminally investigate or prosecute any alcohol or drug abuse patient.[facility] CenterIn the event this information is protected by the Federal Confidentiality of Alcohol and Drug Abuse Patient Records regulations: The Federal rules restrict any use of the information to criminally investigate or prosecute any alcohol or drug abuse patient.[facility] CenterIn the event this information is protected by the Federal Confidentiality of Alcohol and Drug Abuse Patient Records regulations: The Federal rules restrict any use of the information to criminally investigate or prosecute any alcohol or drug abuse patient.[facility] CenterIn the event this information is protected by the Federal Confidentiality of Alcohol and Drug Abuse Patient Records regulations: The Federal rules restrict any use of the information to criminally investigate or prosecute any alcohol or drug abuse patient.[facility] CenterIn the event this information is protected by the Federal Confidentiality of Alcohol and Drug Abuse Patient Records regulations: The Federal rules restrict any use of the information to criminally investigate or prosecute any alcohol or drug abuse patient.[facility] CenterIn the event this information is protected by the Federal Confidentiality of Alcohol and Drug Abuse Patient Records regulations: The Federal rules restrict any use of the information to criminally investigate or prosecute any alcohol or drug abuse patient.[facility] CenterIn the event this information is protected by the Federal Confidentiality of Alcohol and Drug Abuse Patient Records regulations: The Federal rules restrict any use of the information to criminally investigate or prosecute any alcohol or drug abuse patient.[facility] CenterIn the event this information is protected by the Federal Confidentiality of Alcohol and Drug Abuse Patient Records regulations: The Federal rules restrict any use of the information to criminally investigate or prosecute any alcohol or drug abuse patient.[facility] CenterIn the event this information is protected by the Federal Confidentiality of Alcohol and Drug Abuse Patient Records regulations: The Federal rules restrict any use of the information to criminally investigate or prosecute any alcohol or drug abuse patient.[facility] CenterIn the event this information is protected by the Federal Confidentiality of Alcohol and Drug Abuse Patient Records regulations: The Federal rules restrict any use of the information to criminally investigate or prosecute any alcohol or drug abuse patient.[facility] CenterIn the event this information is protected by the Federal Confidentiality of Alcohol and Drug Abuse Patient Records regulations: The Federal rules restrict any use of the information to criminally investigate or prosecute any alcohol or drug abuse patient.[facility] CenterIn the event this information is protected by the Federal Confidentiality of Alcohol and Drug Abuse Patient Records regulations: The Federal rules restrict any use of the information to criminally investigate or prosecute any alcohol or drug abuse patient.[facility] CenterIn the event this information is protected by the Federal Confidentiality of Alcohol and Drug Abuse Patient Records regulations: The Federal rules restrict any use of the information to criminally investigate or prosecute any alcohol or drug abuse patient.[facility] CenterIn the event this information is protected by the Federal Confidentiality of Alcohol and Drug Abuse Patient Records regulations: The Federal rules restrict any use of the information to criminally investigate or prosecute any alcohol or drug abuse patient.[facility] CenterIn the event this information is protected by the Federal Confidentiality of Alcohol and Drug Abuse Patient Records regulations: The Federal rules restrict any use of the information to criminally investigate or prosecute any alcohol or drug abuse patient.[facility] CenterIn the event this information is protected by the Federal Confidentiality of Alcohol and Drug Abuse Patient Records regulations: The Federal rules restrict any use of the information to criminally investigate or prosecute any alcohol or drug abuse patient.[facility] CenterIn the event this information is protected by the Federal Confidentiality of Alcohol and Drug Abuse Patient Records regulations: The Federal rules restrict any use of the information to criminally investigate or prosecute any alcohol or drug abuse patient.[facility] CenterIn the event this information is protected by the Federal Confidentiality of Alcohol and Drug Abuse Patient Records regulations: The Federal rules restrict any use of the information to criminally investigate or prosecute any alcohol or drug abuse patient.[facility] CenterIn the event this information is protected by the Federal Confidentiality of Alcohol and Drug Abuse Patient Records regulations: The Federal rules restrict any use of the information to criminally investigate or prosecute any alcohol or drug abuse patient.[facility] CenterIn the event this information is protected by the Federal Confidentiality of Alcohol and Drug Abuse Patient Records regulations: The Federal rules restrict any use of the information to criminally investigate or prosecute any alcohol or drug abuse patient.[facility] CenterIn the event this information is protected by the Federal Confidentiality of Alcohol and Drug Abuse Patient Records regulations: The Federal rules restrict any use of the information to criminally investigate or prosecute any alcohol or drug abuse patient.[facility] CenterIn the event this information is protected by the Federal Confidentiality of Alcohol and Drug Abuse Patient Records regulations: The Federal rules restrict any use of the information to criminally investigate or prosecute any alcohol or drug abuse patient.[facility] CenterIn the event this information is protected by the Federal Confidentiality of Alcohol and Drug Abuse Patient Records regulations: The Federal rules restrict any use of the information to criminally investigate or prosecute any alcohol or drug abuse patient.[facility] CenterIn the event this information is protected by the Federal Confidentiality of Alcohol and Drug Abuse Patient Records regulations: The Federal rules restrict any use of the information to criminally investigate or prosecute any alcohol or drug abuse patient.[facility] CenterIn the event this information is protected by the Federal Confidentiality of Alcohol and Drug Abuse Patient Records regulations: The Federal rules restrict any use of the information to criminally investigate or prosecute any alcohol or drug abuse patient.[facility] CenterIn the event this information is protected by the Federal Confidentiality of Alcohol and Drug Abuse Patient Records regulations: The Federal rules restrict any use of the information to criminally investigate or prosecute any alcohol or drug abuse patient.[facility] CenterIn the event this information is protected by the Federal Confidentiality of Alcohol and Drug Abuse Patient Records regulations: The Federal rules restrict any use of the information to criminally investigate or prosecute any alcohol or drug abuse patient.[facility] CenterIn the event this information is protected by the Federal Confidentiality of Alcohol and Drug Abuse Patient Records regulations: The Federal rules restrict any use of the information to criminally investigate or prosecute any alcohol or drug abuse patient.[facility] CenterIn the event this information is protected by the Federal Confidentiality of Alcohol and Drug Abuse Patient Records regulations: The Federal rules restrict any use of the information to criminally investigate or prosecute any alcohol or drug abuse patient.[facility] CenterIn the event this information is protected by the Federal Confidentiality of Alcohol and Drug Abuse Patient Records regulations: The Federal rules restrict any use of the information to criminally investigate or prosecute any alcohol or drug abuse patient.[facility] CenterIn the event this information is protected by the Federal Confidentiality of Alcohol and Drug Abuse Patient Records regulations: The Federal rules restrict any use of the information to criminally investigate or prosecute any alcohol or drug abuse patient.[facility] CenterIn the event this information is protected by the Federal Confidentiality of Alcohol and Drug Abuse Patient Records regulations: The Federal rules restrict any use of the information to criminally investigate or prosecute any alcohol or drug abuse patient.[facility] CenterIn the event this information is protected by the Federal Confidentiality of Alcohol and Drug Abuse Patient Records regulations: The Federal rules restrict any use of the information to criminally investigate or prosecute any alcohol or drug abuse patient.[facility] CenterIn the event this information is protected by the Federal Confidentiality of Alcohol and Drug Abuse Patient Records regulations: The Federal rules restrict any use of the information to criminally investigate or prosecute any alcohol or drug abuse patient.[facility] CenterIn the event this information is protected by the Federal Confidentiality of Alcohol and Drug Abuse Patient Records regulations: The Federal rules restrict any use of the information to criminally investigate or prosecute any alcohol or drug abuse patient.[facility] CenterIn the event this information is protected by the Federal Confidentiality of Alcohol and Drug Abuse Patient Records regulations: The Federal rules restrict any use of the information to criminally investigate or prosecute any alcohol or drug abuse patient.[facility] CenterIn the event this information is protected by the Federal Confidentiality of Alcohol and Drug Abuse Patient Records regulations: The Federal rules restrict any use of the information to criminally investigate or prosecute any alcohol or drug abuse patient.[facility] CenterIn the event this information is protected by the Federal Confidentiality of Alcohol and Drug Abuse Patient Records regulations: The Federal rules restrict any use of the information to criminally investigate or prosecute any alcohol or drug abuse patient.[facility] CenterIn the event this information is protected by the Federal Confidentiality of Alcohol and Drug Abuse Patient Records regulations: The Federal rules restrict any use of the information to criminally investigate or prosecute any alcohol or drug abuse patient.[facility] CenterIn the event this information is protected by the Federal Confidentiality of Alcohol and Drug Abuse Patient Records regulations: The Federal rules restrict any use of the information to criminally investigate or prosecute any alcohol or drug abuse patient.[facility] CenterIn the event this information is protected by the Federal Confidentiality of Alcohol and Drug Abuse Patient Records regulations: The Federal rules restrict any use of the information to criminally investigate or prosecute any alcohol or drug abuse patient.[facility] CenterIn the event this information is protected by the Federal Confidentiality of Alcohol and Drug Abuse Patient Records regulations: The Federal rules restrict any use of the information to criminally investigate or prosecute any alcohol or drug abuse patient.[facility] CenterIn the event this information is protected by the Federal Confidentiality of Alcohol and Drug Abuse Patient Records regulations: The Federal rules restrict any use of the information to criminally investigate or prosecute any alcohol or drug abuse patient.[facility] CenterIn the event this information is protected by the Federal Confidentiality of Alcohol and Drug Abuse Patient Records regulations: The Federal rules restrict any use of the information to criminally investigate or prosecute any alcohol or drug abuse patient.[facility] CenterIn the event this information is protected by the Federal Confidentiality of Alcohol and Drug Abuse Patient Records regulations: The Federal rules restrict any use of the information to criminally investigate or prosecute any alcohol or drug abuse patient.[facility] CenterIn the event this information is protected by the Federal Confidentiality of Alcohol and Drug Abuse Patient Records regulations: The Federal rules restrict any use of the information to criminally investigate or prosecute any alcohol or drug abuse patient.[facility] CenterIn the event this information is protected by the Federal Confidentiality of Alcohol and Drug Abuse Patient Records regulations: The Federal rules restrict any use of the information to criminally investigate or prosecute any alcohol or drug abuse patient.[facility] CenterIn the event this information is protected by the Federal Confidentiality of Alcohol and Drug Abuse Patient Records regulations: The Federal rules restrict any use of the information to criminally investigate or prosecute any alcohol or drug abuse patient.[facility] CenterIn the event this information is protected by the Federal Confidentiality of Alcohol and Drug Abuse Patient Records regulations: The Federal rules restrict any use of the information to criminally investigate or prosecute any alcohol or drug abuse patient.[facility] CenterIn the event this information is protected by the Federal Confidentiality of Alcohol and Drug Abuse Patient Records regulations: The Federal rules restrict any use of the information to criminally investigate or prosecute any alcohol or drug abuse patient.[facility] CenterIn the event this information is protected by the Federal Confidentiality of Alcohol and Drug Abuse Patient Records regulations: The Federal rules restrict any use of the information to criminally investigate or prosecute any alcohol or drug abuse patient.[facility] CenterIn the event this information is protected by the Federal Confidentiality of Alcohol and Drug Abuse Patient Records regulations: The Federal rules restrict any use of the information to criminally investigate or prosecute any alcohol or drug abuse patient.[facility] CenterIn the event this information is protected by the Federal Confidentiality of Alcohol and Drug Abuse Patient Records regulations: The Federal rules restrict any use of the information to criminally investigate or prosecute any alcohol or drug abuse patient.[facility] CenterIn the event this information is protected by the Federal Confidentiality of Alcohol and Drug Abuse Patient Records regulations: The Federal rules restrict any use of the information to criminally investigate or prosecute any alcohol or drug abuse patient.[facility] CenterIn the event this information is protected by the Federal Confidentiality of Alcohol and Drug Abuse Patient Records regulations: The Federal rules restrict any use of the information to criminally investigate or prosecute any alcohol or drug abuse patient.[facility] CenterIn the event this information is protected by the Federal Confidentiality of Alcohol and Drug Abuse Patient Records regulations: The Federal rules restrict any use of the information to criminally investigate or prosecute any alcohol or drug abuse patient.[facility] CenterIn the event this information is protected by the Federal Confidentiality of Alcohol and Drug Abuse Patient Records regulations: The Federal rules restrict any use of the information to criminally investigate or prosecute any alcohol or drug abuse patient.[facility] CenterIn the event this information is protected by the Federal Confidentiality of Alcohol and Drug Abuse Patient Records regulations: The Federal rules restrict any use of the information to criminally investigate or prosecute any alcohol or drug abuse patient.[facility] CenterIn the event this information is protected by the Federal Confidentiality of Alcohol and Drug Abuse Patient Records regulations: The Federal rules restrict any use of the information to criminally investigate or prosecute any alcohol or drug abuse patient.[facility] CenterIn the event this information is protected by the Federal Confidentiality of Alcohol and Drug Abuse Patient Records regulations: The Federal rules restrict any use of the information to criminally investigate or prosecute any alcohol or drug abuse patient.[facility] CenterIn the event this information is protected by the Federal Confidentiality of Alcohol and Drug Abuse Patient Records regulations: The Federal rules restrict any use of the information to criminally investigate or prosecute any alcohol or drug abuse patient.[facility] CenterIn the event this information is protected by the Federal Confidentiality of Alcohol and Drug Abuse Patient Records regulations: The Federal rules restrict any use of the information to criminally investigate or prosecute any alcohol or drug abuse patient.[facility] CenterIn the event this information is protected by the Federal Confidentiality of Alcohol and Drug Abuse Patient Records regulations: The Federal rules restrict any use of the information to criminally investigate or prosecute any alcohol or drug abuse patient.[facility] CenterIn the event this information is protected by the Federal Confidentiality of Alcohol and Drug Abuse Patient Records regulations: The Federal rules restrict any use of the information to criminally investigate or prosecute any alcohol or drug abuse patient.[facility] CenterIn the event this information is protected by the Federal Confidentiality of Alcohol and Drug Abuse Patient Records regulations: The Federal rules restrict any use of the information to criminally investigate or prosecute any alcohol or drug abuse patient.[facility] CenterIn the event this information is protected by the Federal Confidentiality of Alcohol and Drug Abuse Patient Records regulations: The Federal rules restrict any use of the information to criminally investigate or prosecute any alcohol or drug abuse patient.[facility] CenterIn the event this information is protected by the Federal Confidentiality of Alcohol and Drug Abuse Patient Records regulations: The Federal rules restrict any use of the information to criminally investigate or prosecute any alcohol or drug abuse patient.[facility] CenterIn the event this information is protected by the Federal Confidentiality of Alcohol and Drug Abuse Patient Records regulations: The Federal rules restrict any use of the information to criminally investigate or prosecute any alcohol or drug abuse patient.[facility] CenterIn the event this information is protected by the Federal Confidentiality of Alcohol and Drug Abuse Patient Records regulations: The Federal rules restrict any use of the information to criminally investigate or prosecute any alcohol or drug abuse patient.[facility] CenterIn the event this information is protected by the Federal Confidentiality of Alcohol and Drug Abuse Patient Records regulations: The Federal rules restrict any use of the information to criminally investigate or prosecute any alcohol or drug abuse patient.[facility] CenterIn the event this information is protected by the Federal Confidentiality of Alcohol and Drug Abuse Patient Records regulations: The Federal rules restrict any use of the information to criminally investigate or prosecute any alcohol or drug abuse patient.[facility] CenterIn the event this information is protected by the Federal Confidentiality of Alcohol and Drug Abuse Patient Records regulations: The Federal rules restrict any use of the information to criminally investigate or prosecute any alcohol or drug abuse patient.[facility] CenterIn the event this information is protected by the Federal Confidentiality of Alcohol and Drug Abuse Patient Records regulations: The Federal rules restrict any use of the information to criminally investigate or prosecute any alcohol or drug abuse patient.[facility] CenterIn the event this information is protected by the Federal Confidentiality of Alcohol and Drug Abuse Patient Records regulations: The Federal rules restrict any use of the information to criminally investigate or prosecute any alcohol or drug abuse patient.[facility] CenterIn the event this information is protected by the Federal Confidentiality of Alcohol and Drug Abuse Patient Records regulations: The Federal rules restrict any use of the information to criminally investigate or prosecute any alcohol or drug abuse patient.[facility] CenterIn the event this information is protected by the Federal Confidentiality of Alcohol and Drug Abuse Patient Records regulations: The Federal rules restrict any use of the information to criminally investigate or prosecute any alcohol or drug abuse patient.[facility] CenterIn the event this information is protected by the Federal Confidentiality of Alcohol and Drug Abuse Patient Records regulations: The Federal rules restrict any use of the information to criminally investigate or prosecute any alcohol or drug abuse patient.[facility] CenterIn the event this information is protected by the Federal Confidentiality of Alcohol and Drug Abuse Patient Records regulations: The Federal rules restrict any use of the information to criminally investigate or prosecute any alcohol or drug abuse patient.[facility] CenterIn the event this information is protected by the Federal Confidentiality of Alcohol and Drug Abuse Patient Records regulations: The Federal rules restrict any use of the information to criminally investigate or prosecute any alcohol or drug abuse patient.[facility] CenterIn the event this information is protected by the Federal Confidentiality of Alcohol and Drug Abuse Patient Records regulations: The Federal rules restrict any use of the information to criminally investigate or prosecute any alcohol or drug abuse patient.[facility] CenterIn the event this information is protected by the Federal Confidentiality of Alcohol and Drug Abuse Patient Records regulations: The Federal rules restrict any use of the information to criminally investigate or prosecute any alcohol or drug abuse patient.[facility] CenterIn the event this information is protected by the Federal Confidentiality of Alcohol and Drug Abuse Patient Records regulations: The Federal rules restrict any use of the information to criminally investigate or prosecute any alcohol or drug abuse patient.[facility] CenterIn the event this information is protected by the Federal Confidentiality of Alcohol and Drug Abuse Patient Records regulations: The Federal rules restrict any use of the information to criminally investigate or prosecute any alcohol or drug abuse patient.[facility] CenterIn the event this information is protected by the Federal Confidentiality of Alcohol and Drug Abuse Patient Records regulations: The Federal rules restrict any use of the information to criminally investigate or prosecute any alcohol or drug abuse patient.[facility] CenterIn the event this information is protected by the Federal Confidentiality of Alcohol and Drug Abuse Patient Records regulations: The Federal rules restrict any use of the information to criminally investigate or prosecute any alcohol or drug abuse patient.[facility] CenterIn the event this information is protected by the Federal Confidentiality of Alcohol and Drug Abuse Patient Records regulations: The Federal rules restrict any use of the information to criminally investigate or prosecute any alcohol or drug abuse patient.[facility] CenterIn the event this information is protected by the Federal Confidentiality of Alcohol and Drug Abuse Patient Records regulations: The Federal rules restrict any use of the information to criminally investigate or prosecute any alcohol or drug abuse patient.[facility] CenterIn the event this information is protected by the Federal Confidentiality of Alcohol and Drug Abuse Patient Records regulations: The Federal rules restrict any use of the information to criminally investigate or prosecute any alcohol or drug abuse patient.[facility] CenterIn the event this information is protected by the Federal Confidentiality of Alcohol and Drug Abuse Patient Records regulations: The Federal rules restrict any use of the information to criminally investigate or prosecute any alcohol or drug abuse patient.[facility] CenterIn the event this information is protected by the Federal Confidentiality of Alcohol and Drug Abuse Patient Records regulations: The Federal rules restrict any use of the information to criminally investigate or prosecute any alcohol or drug abuse patient.[facility] CenterIn the event this information is protected by the Federal Confidentiality of Alcohol and Drug Abuse Patient Records regulations: The Federal rules restrict any use of the information to criminally investigate or prosecute any alcohol or drug abuse patient.[facility] Care Teams (unrecognized sec tion and content) Heel Lining Paster Relationship Specialty Start Date End Date Prudencio Pedro MD [address] [place], [place] [id number] PCP - General Family Practice 05/10/19 Heel Lining Paster Relationship Specialty Start Date End Date Prudencio Pedro MD [address] [place], [place] [id number] PCP - General Family Practice 05/10/19 Heel Lining Paster Relationship Specialty Start Date End Date Prudencio Pedro MD [address] [place] [address] PCP - General Family Practice 05/10/19 Heel Lining Paster Relationship Specialty Start Date End Date Prudencio Pedro MD [address] [place] [address] PCP - General Family Practice 05/10/19 Heel Lining Paster Relationship Specialty Start Date End Date Prudencio Pedro MD [address] [place] [address] PCP - General Family Practice 05/10/19 Heel Lining Paster Relationship Specialty Start Date End Date Prudencio Pedro MD [facility] [place] [address] PCP - General Family Medicine 05/10/19 Heel Lining Paster Relationship Specialty Start Date End Date Prudencio Pedro MD [facility] [place] [address] PCP - General Family Medicine 05/10/19 Heel Lining Paster Relationship Specialty Start Date End Date Prudencio Pedro MD [facility] [place] [address] PCP - General Family Medicine 05/10/19 Heel Lining Paster Relationship Specialty Start Date End Date Prudencio Pedro MD [facility] [place] [address] PCP - General Family Medicine 05/10/19 Heel Lining Paster Relationship Specialty Start Date End Date Prudencio Pedro MD [facility] [place] [address] PCP - General Family Medicine 05/10/19 Heel Lining Paster Relationship Specialty Start Date End Date Prudencio Pedro MD [facility] [place] [address] PCP - General Family Medicine 05/10/19 Heel Lining Paster Relationship Specialty Start Date End Date Prudencio Pedro MD [address] [facility] [place] [address] PCP - General Family Medicine 05/10/19 Heel Lining Paster Relationship Specialty Start Date End Date Prudencio Pedro MD [address] [place] [address] PCP - General Family Medicine 05/10/19 Heel Lining Paster Relationship Specialty Start Date End Date Prudencio Pedro MD [address] [place] [address] PCP - General Family Medicine 05/10/19 Heel Lining Paster Relationship Specialty Start Date End Date Prudencio Pedro MD [address] [place] [address] PCP - General Family Medicine 05/10/19 Heel Lining Paster Relationship Specialty Start Date End Date Prudencio Pedro MD [address] [place] [address] PCP - General Family Medicine 05/10/19 Heel Lining Paster Relationship Specialty Start Date End Date Prudencio Pedro MD [address] [place] [address] PCP - General Family Medicine 05/10/19 Heel Lining Paster Relationship Specialty Start Date End Date Prudencio Pedro MD [address] [place] [address] PCP - General Family Medicine 05/10/19 Heel Lining Paster Relationship Specialty Start Date End Date Prudencio Pedro MD [address] [place] [address] PCP - General Family Medicine 05/10/19 Heel Lining Paster Relationship Specialty Start Date End Date Prudencio Pedro MD [address] [place] [address] PCP - General Family Medicine 05/10/19 Heel Lining Paster Relationship Specialty Start Date End Date Prudencio Pedro MD [address] [place] [address] PCP - General Family Medicine 05/10/19 Heel Lining Paster Relationship Specialty Start Date End Date Prudencio Pedro MD [address] [place] [address] PCP - General Family Medicine 05/10/19 Heel Lining Paster Relationship Specialty Start Date End Date Prudencio Pedro MD [address] [place] [address] PCP - General Family Medicine 05/10/19 Team Status: Active Member Role Status Dates Diamond Bright MACHINE CARTON MARKER, MACHINE CARTON MARKER-C Family Provider Active Dr. Segundo Pedro MD Primary Care Provider Acti ve Team Status: Inactive Member Role Status Dates Dr. Segundo Pedro MD Primary Care Provider Acti ve Namrata Vazquez MACHINE CARTON MARKER, MACHINE CARTON MARKER-C Attending Provider, Referring Provider Active Team Status: Active Member Role Status Dates Dr. Segundo Pedro MD Primary Care Provider Acti ve Dr. Epi Mcdonald MD Attending Provider, Referrin g Provider Active Team Status: Inactive Member Role Status Dates Dr. Segundo Pedro MD Primary Care Provider Acti ve Dr. Epi Mcdonald MD Attending Provider, Referrin g Provider Active Heel Lining Paster Relationship Specialty Start Date End Date Prudencio Pedro MD [address] [facility] [place] [address] PCP - General Family Medicine 05/10/19 Heel Lining Paster Relationship Specialty Start Date End Date Prudencio Pedro MD [address] [facility] [place] [address] PCP - General Family Medicine 05/10/19 Heel Lining Paster Relationship Specialty Start Date End Date Prudencio Pedro MD [address] [place] [address] PCP - General Family Medicine 05/10/19 Heel Lining Paster Relationship Specialty Start Date End Date Prudencio Pedro MD [address] [place] [address] PCP - General Family Medicine 05/10/19 Heel Lining Paster Relationship Specialty Start Date End Date Prudencio Pedro MD [address] [place] [address] PCP - General Family Medicine 05/10/19 Heel Lining Paster Relationship Specialty Start Date End Date Prudencio Pedro MD [address] [place] [address] PCP - General Family Medicine 05/10/19 Heel Lining Paster Relationship Specialty Start Date End Date Prudencio Pedro MD [address] [place] [address] PCP - General Family Medicine 05/10/19 Heel Lining Paster Relationship Specialty Start Date End Date Prudencio ePdro MD [address] [place] [address] PCP - General Family Medicine 05/10/19 Heel Lining Paster Relationship Specialty Start Date End Date Prudencio Pedro MD [address] [place] [address] PCP - General Family Medicine 05/10/19 Heel Lining Paster Relationship Specialty Start Date End Date Prudencio Pedro MD [address] [facility] [place] [address] PCP - General Family Medicine 05/10/19 Heel Lining Paster Relationship Specialty Start Date End Date Prudencio Pedro MD [address] [facility] [place] [address] PCP - General Family Medicine 05/10/19 Heel Lining Paster Relationship Specialty Start Date End Date Prudencio Pedro MD [address] [place] [address] PCP - General Family Medicine 05/10/19 Heel Lining Paster Relationship Specialty Start Date End Date Prudencio Pedro MD [address] [place] [address] PCP - General Family Medicine 05/10/19 Heel Lining Paster Relationship Specialty Start Date End Date Prudencio Pedro MD [address] [place] [address] PCP - General Family Medicine 05/10/19 Heel Lining Paster Relationship Specialty Start Date End Date Prudencio Pedro MD [address] [place] [address] PCP - General Family Medicine 05/10/19 Heel Lining Paster Relationship Specialty Start Date End Date Prudencio Pedro MD [address] [place] [address] PCP - General Family Medicine 05/10/19 Heel Lining Paster Relationship Specialty Start Date End Date Prudencio Pedro MD [address] [place] [address] PCP - General Family Medicine 05/10/19 Heel Lining Paster Relationship Specialty Start Date End Date Prudencio Pedro MD [address] [place] [address] PCP - General Family Medicine 05/10/19 Heel Lining Paster Relationship Specialty Start Date End Date Prudencio Pedro MD [address] [place] [address] PCP - General Family Medicine 05/10/19 Heel Lining Paster Relationship Specialty Start Date End Date Prudencio Pedro MD [address] [place] [address] PCP - General Family Medicine 05/10/19 Heel Lining Paster Relationship Specialty Start Date End Date Prudencio Pedro MD [address] [place] [address] PCP - General Family Medicine 05/10/19 Heel Lining Paster Relationship Specialty Start Date End Date Prudencio Pedro MD [address] [place] [address] PCP - General Family Medicine 05/10/19 Heel Lining Paster Relationship Specialty Start Date End Date Prudencio Pedro MD [address] [place] [address] PCP - General Family Medicine 05/10/19 Heel Lining Paster Relationship Specialty Start Date End Date Prudencio Pedro MD [address] [place] [address] PCP - General Family Medicine 05/10/19 Heel Lining Paster Relationship Specialty Start Date End Date Prudencio Pedro MD [address] [place] [address] PCP - General Family Medicine 05/10/19 Heel Lining Paster Relationship Specialty Start Date End Date Prudencio Pedro MD [address] [place] [address] PCP - General Family Medicine 05/10/19 Heel Lining Paster Relationship Specialty Start Date End Date Prudencio Pedro MD [address] [place], [place] [address] PCP - General Family Medicine 05/10/19 Team Status: Inactive Member Role Status Dates Dr. Epi Mcdonald MD Attending Provider, Referrin g Provider Active Dr. Segundo Pedro MD Primary Care Provider Acti ve Team Status: Inactive Member Role Status Dates Dr. Segundo WILSON MD Referring Provider Acti ve Namrata Vazquez MACHINE CARTON MARKER, MACHINE CARTON MARKER-C Attending Provider Active Dr. Segundo Pedro MD Primary Care Provider Acti ve Team Status: Inactive Member Role Status Dates Namrata Vazquez MACHINE CARTON MARKER, MACHINE CARTON MARKER-C Attending Provider, Referring Provider Active Dr. Segundo Pedro MD Primary Care Provider Acti ve Heel Lining Paster Relationship Specialty Start Date End Date Prudencio Pedro MD [address] [place], [place] [address] PCP - General Family Medicine 05/10/19 Heel Lining Paster Relationship Specialty Start Date End Date Prudencio Pedro MD [address] [place], [place] [address] PCP - General Family Medicine 05/10/19 Heel Lining Paster Relationship Specialty Start Date End Date Prudencio Pedro MD [address] [place], [place] [address] PCP - General Family Medicine 05/10/19 Heel Lining Paster Relationship Specialty Start Date End Date Prudencio Pedro MD [address] [place], [place] [address] PCP - General Family Medicine 05/10/19 Heel Lining Paster Relationship Specialty Start Date End Date Prudencio Pedro MD [address] [place], [place] [address] PCP - General Family Medicine 05/10/19 Heel Lining Paster Relationship Specialty Start Date End Date Prudencio Pedro MD [address] [place] [address] PCP - General Family Medicine 05/10/19 Heel Lining Paster Relationship Specialty Start Date End Date Prudencio Pedro MD [address] [place] [address] PCP - General Family Medicine 05/10/19 Heel Lining Paster Relationship Specialty Start Date End Date Prudencio Pedro MD [address] [place] [address] PCP - General Family Medicine 05/10/19 Heel Lining Paster Relationship Specialty Start Date End Date Prudencio Pedro MD [address] [place] [address] PCP - General Family Medicine 05/10/19 Heel Lining Paster Relationship Specialty Start Date End Date Prudencio Pedro MD [address] [place] [address] PCP - General Family Medicine 05/10/19 Heel Lining Paster Relationship Specialty Start Date End Date Prudencio Pedro MD [address] [place] [address] PCP - General Family Medicine 05/10/19 Heel Lining Paster Relationship Specialty Start Date End Date Prudencio Pedro MD [address] [facility] [place] [address] PCP - General Family Medicine 05/10/19 Heel Lining Paster Relationship Specialty Start Date End Date Prudencio Pedro MD [address] [place] [address] PCP - General Family Medicine 05/10/19 03/02/24 Heel Lining Paster Relationship Specialty Start Date End Date Prudencio Pedro MD [address] [place] [address] PCP - General Family Medicine 05/10/19 03/02/24 Heel Lining Paster Relationship Specialty Start Date End Date Prudencio Pedro MD [address] [place] [address] PCP - General Family Medicine 05/10/19 03/02/24 Heel Lining Paster Relationship Specialty Start Date End Date Prudencio Pedro MD [address] [place] [address] PCP - General Family Medicine 05/10/19 03/02/24 Heel Lining Paster Relationship Specialty Start Date End Date Prudencio Pedro MD [address] [place] [address] PCP - General Family Medicine 05/10/19 03/02/24 Heel Lining Paster Relationship Specialty Start Date End Date Prudencio Pedro MD [address] [place] [address] PCP - General Family Medicine 05/10/19 03/02/24 Heel Lining Paster Relationship Specialty Start Date End Date Prudencio Pedro MD [address] [place] [address] PCP - General Family Medicine 05/10/19 03/02/24 Heel Lining Paster Relationship Specialty Start Date End Date Aman Iraheta MD [address] [place] [address] PCP - General Internal Medicine 06/03/24 Heel Lining Paster Relationship Specialty Start Date End Date Aman Iraheta MD [address] [place] [address] PCP - General Internal Medicine 06/03/24 Heel Lining Paster Relationship Specialty Start Date End Date Aman Iraheta MD [address] [place] [address] PCP - General Internal Medicine 06/03/24 Heel Lining Paster Relationship Specialty Start Date End Date Aman Iraheta MD [address] [place] [address] PCP - General Internal Medicine 06/03/24 Heel Lining Paster Relationship Specialty Start Date End Date Aman Iraheta MD [address] [place] [address] PCP - General Internal Medicine 06/03/24 Heel Lining Paster Relationship Specialty Start Date End Date Aman Iraheta MD [address] [place] [address] PCP - General Internal Medicine 06/03/24 Heel Lining Paster Relationship Specialty Start Date End Date Aman Iraheta MD [address] [place] [address] PCP - General Internal Medicine 06/03/24 Heel Lining Paster Relationship Specialty Start Date End Date Aman Iraheta MD [address] [place] [address] PCP - General Internal Medicine 06/03/24 Heel Lining Paster Relationship Specialty Start Date End Date Aman Iraheta MD [address] [place] [address] PCP - General Internal Medicine 06/03/24 Heel Lining Paster Relationship Specialty Start Date End Date Aman Iraheta MD [address] [place] [address] PCP - General Internal Medicine 06/03/24 Heel Lining Paster Relationship Specialty Start Date End Date Aman Iraheta MD [address] [place] [address] PCP - General Internal Medicine 06/03/24 Team Status: Active Member Role Status Dates Dr. Aman Iraheta MD Primary Care Provider Active Team Status: Inactive Member Role Status Dates Dr. Hung Cai MD Attending Provider Active Sta rt: August 01, 2024 End: August 01, 2024 Dr. Hung Cai MD Referring Provider Active Sta rt: August 01, 2024 End: August 01, 2024 Dr. Hung Cai MD Emergency Provider Active Sta rt: August 01, 2024 End: August 01, 2024 Dr. Aman Iraheta MD Primary Care Provider Active Start: August 01, 2024 End: August 01, 2024 Team Status: Inactive Member Role Status Dates Dr. Segundo Pedro MD Referring Provider Active Start: August 13, 2024 End: August 13, 2024 Dr. Aman Iraheta MD Primary Care Provider Active Start: August 13, 2024 End: August 13, 2024 Dr. Aman Iraheta MD Attending Provider Active Start: August 13, 2024 End: August 13, 2024 Team Status: Inactive Member Role Status Dates Dr. Aman Iraheta MD Primary Care Provider Active Start: August 13, 2024 End: August 13, 2024 Dr. Aman Iraheta MD Attending Provider Active Start: August 13, 2024 End: August 13, 2024 Dr. Aman Iraheta MD Referring Provider Active Start: August 13, 2024 End: August 13, 2024 Team Status: Inactive Member Role Status Dates Dr. Aman Iraheta MD Primary Care Provider Active Start: September 11, 2024 End: September 11, 2024 Dr. Aman Iraheta MD Referring Provider Active Start: September 11, 2024 End: September 11, 2024 Namrata Vazquez MACHINE CARTON MARKER, MACHINE CARTON MARKER-C Attending Provider Active Start: September 11, 2024 End: September 11, 2024 Team Status: Inactive Member Role Status Dates Dr. Aman Iraheta MD Primary Care Provider Active Start: September 11, 2024 End: September 11, 2024 Namratajeff Vazquez MACHINE CARTON MARKER, MACHINE CARTON MARKER-C Attending Provider Active Start: September 11, 2024 End: September 11, 2024 Namratajeff Vazquez MACHINE CARTON MARKER, MACHINE CARTON MARKER-C Referring Provider Active Start: September 11, 2024 End: September 11, 2024 Team Status: Active Member Role Status Dates Dr. Aman Iraheta MD Primary Care Provider Active Start: September 12, 2024 Dr. Aman Iraheta MD Attending Provider Active Start: September 12, 2024 Dr. Aman Iraheta MD Referring Provider Active Start: September 12, 2024 Team Status: Inactive Member Role Status Dates Dr. Aman Iraheta MD Primary Care Provider Active Start: September 14, 2024 End: September 14, 2024 Dr. Aman Iraheta MD Attending Provider Active Start: September 14, 2024 End: September 14, 2024 Dr. Aman Iraheta MD Referring Provider Active Start: September 14, 2024 End: September 14, 2024 Team Status: Active Member Role Status Dates Dr. Aman Iraheta MD Primary Care Provider Active Start: September 14, 2024 Dr. Aman Iraheta MD Attending Provider Active Start: September 14, 2024 Dr. Aman Iraheta MD Referring Provider Active Start: September 14, 2024 Team Status: Inactive Member Role Status Dates Dr. Aman Iraheta MD Primary Care Provider Active Start: September 12, 2024 End: September 12, 2024 Dr. Aman Iraheta MD Attending Provider Active Start: September 12, 2024 End: September 12, 2024 Dr. Aman Iraheta MD Referring Provider Active Start: September 12, 2024 End: September 12, 2024 Team Status: Active Member Role Status Dates Dr. Aman Iraheta MD Primary Care Provider Active Start: September 25, 2024 Dr. Aman Iraheta MD Attending Provider Active Start: September 25, 2024 Dr. Aman Iraheta MD Referring Provider Active Start: September 25, 2024 Team Status: Active Member Role Status Dates Dr. Aman Iraheta MD Primary Care Provider Active Start: September 25, 2024 Dr. Epi Mcdonald MD Attending Provider Active Start: September 25, 2024 Dr. Epi Mcdonald MD Referring Provider Active Start: September 25, 2024 Team Status: Inactive Member Role Status Dates Dr. Aman Irahtea MD Primary Care Provider Active Start: September 25, 2024 End: September 25, 2024 Dr. Joselito Nichols DO Emergency Provider Active Start : September 25, 2024 End: September 25, 2024 Team Status: Inactive Member Role Status Dates Dr. Aman Iraheta MD Primary Care Provider Active Start: September 25, 2024 End: September 25, 2024 Dr. Aman Iraheta MD Attending Provider Active Start: September 25, 2024 End: September 25, 2024 Dr. Aman Iraheta MD Referring Provider Active Start: September 25, 2024 End: September 25, 2024 Team Status: Active Member Role Status Dates Dr. Aman Iraheta MD Primary Care Provider Active Start: October 04, 2024 Dr. Lucas Marrufo MD Attending Provider Active Start: October 04, 2024 Dr. Lucas Marrufo MD Referring Provider Active Start: October 04, 2024 Team Status: Inactive Member Role Status Dates Dr. Aman Iraheta MD Primary Care Provider Active Start: October 04, 2024 End: October 04, 2024 Dr. Aman Iraheta MD Referring Provider Active Start: October 04, 2024 End: October 04, 2024 KERRI Saravia Attending Provider Active St art: October 04, 2024 End: October 04, 2024 Team Status: Inactive Member Role Status Dates Dr. Aman Iraheta MD Primary Care Provider Active Start: September 25, 2024 End: September 25, 2024 Dr. Epi Mcdonald MD Attending Provider Active Start: September 25, 2024 End: September 25, 2024 Dr. Epi Mcdonald MD Referring Provider Active Start: September 25, 2024 End: September 25, 2024 Team Status: Inactive Member Role Status Dates Dr. Aman Iraheta MD Primary Care Provider Active Start: September 25, 2024 End: September 25, 2024 Dr. Joselito Nichols DO Attending Provider Active Start : September 25, 2024 End: September 25, 2024 Dr. Joselito Nichols DO Emergency Provider Active Start : September 25, 2024 End: September 25, 2024 Team Status: Inactive Member Role Status Dates Dr. Aman Iraheta MD Primary Care Provider Active Start: October 04, 2024 End: October 04, 2024 Dr. Lucas Marrufo MD Attending Provider Active Start: October 04, 2024 End: October 04, 2024 Dr. Lucas Marrufo MD Referring Provider Active Start: October 04, 2024 End: October 04, 2024 Heel Lining Paster Relationship Specialty Start Date End Date Aman Iraheta MD [address] [facility] [address] [place] [phone] PCP - General Internal Medicine 06/03/24 Team Status: Inactive Member Role Status Dates Dr. Aman Iraheta MD Primary Care Provider Active Start: November 05, 2024 End: November 05, 2024 Dr. Aman Iraheta MD Attending Provider Active Start: November 05, 2024 End: November 05, 2024 Dr. Aman Iraheta MD Referring Provider Active Start: November 05, 2024 End: November 05, 2024 Team Status: Inactive Member Role Status Dates Dr. Aman Iraheta MD Primary Care Provider Active Start: November 26, 2024 End: November 26, 2024 Dr. Saturnino Mix DO Emergency Provider Active Start: November 26, 2024 End: November 26, 2024 Team Status: Inactive Member Role Status Dates Dr. Aman Iraheta MD Primary Care Provider Active Start: November 28, 2024 End: November 28, 2024 Dr. Aman Iraheta MD Referring Provider Active Start: November 28, 2024 End: November 28, 2024 Lawrence MANNING PA Attending Provider Active St art: November 28, 2024 End: November 28, 2024 Heel Lining Paster Relationship Specialty Start Date End Date Aman Iraheta MD [address] [place] [id number] PCP - General Internal Medicine 06/03/24 Heel Lining Paster Relationship Specialty Start Date End Date Aman Iraheta MD [address] [place] [address] PCP - General Internal Medicine 06/03/24 Heel Lining Paster Relationship Specialty Start Date End Date Aman Iraheta MD [address] [place] [address] PCP - General Internal Medicine 06/03/24 Team Status: Active Member Role/Relationship Status Dates Dr. Aman Iraheta MD Primary Care Provider Active Team Status: Inactive Member Role/Relationship Status Dates Dr. Aman Iraheta MD Primary Care Provider Active Start: November 05, 2024 End: November 05, 2024 Dr. Aman Iraheta MD Attending Provider Active Start: November 05, 2024 End: November 05, 2024 Dr. Aman Iraheta MD Referring Provider Active Start: November 05, 2024 End: November 05, 2024 Team Status: Inactive Member Role/Relationship Status Dates Dr. Aman Iraheta MD Primary Care Provider Active Start: November 26, 2024 End: November 26, 2024 Dr. Saturnino Mix DO Attending Provider Active Start: November 26, 2024 End: November 26, 2024 Dr. Saturnino Mix DO Emergency Provider Active Start: November 26, 2024 End: November 26, 2024 Team Status: Inactive Member Role/Relationship Status Dates Dr. Aman Iraheta MD Primary Care Provider Active Start: November 28, 2024 End: November 28, 2024 Dr. Aman Iraheta MD Referring Provider Active Start: November 28, 2024 End: November 28, 2024 KERRI Saravia Attending Provider Active St art: November 28, 2024 End: November 28, 2024 Team Status: Inactive Member Role/Relationship Status Dates Dr. Aman Iraheta MD Primary Care Provider Active Start: February 07, 2025 End: February 07, 2025 Dr. Bella Luciano DO Emergency Provider Active Start: February 07, 2025 End: February 07, 2025 Team Status: Inactive Member Role/Relationship Status Dates Dr. Aman Iraheta MD Primary Care Provider Active Start: February 07, 2025 End: February 07, 2025 Dr. Aman Iraheta MD Referring Provider Active Start: February 07, 2025 End: February 07, 2025 Lalo MANNING PA Attending Provider Active Sta rt: February 07, 2025 End: February 07, 2025 Team Status: Inactive Member Role/Relationship Status Dates Dr. Aman Iraheta MD Primary Care Provider Active Start: February 15, 2025 End: February 15, 2025 Dr. Aman Iraheta MD Attending Provider Active Start: February 15, 2025 End: February 15, 2025 Dr. Aman Iraheta MD Referring Provider Active Start: February 15, 2025 End: February 15, 2025 Team Status: Inactive Member Role/Relationship Status Dates Dr. Aman Iraheta MD Primary Care Provider Active Start: November 26, 2024 End: November 26, 2024 Dr. Saturnino Mix DO Attending Provider Active Start: November 26, 2024 End: November 26, 2024 Dr. Saturnino Mix DO Emergency Provider Active Start: November 26, 2024 End: November 26, 2024 Team Status: Inactive Member Role/Relationship Status Dates Dr. Aman Iraheta MD Primary Care Provider Active Start: November 28, 2024 End: November 28, 2024 Dr. Aman Iraheta MD Referring Provider Active Start: November 28, 2024 End: November 28, 2024 KERRI Saravia Attending Provider Active St art: November 28, 2024 End: November 28, 2024 Team Status: Inactive Member Role/Relationship Status Dates Dr. Aman Iraheta MD Primary Care Provider Active Start: February 07, 2025 End: February 07, 2025 Dr. Bella Luciano DO Attending Provider Active Start: February 07, 2025 End: February 07, 2025 Dr. Bella Luciano DO Emergency Provider Active Start: February 07, 2025 End: February 07, 2025 Team Status: Inactive Member Role/Relationship Status Dates Dr. Aman Iraheta MD Primary Care Provider Active Start: February 07, 2025 End: February 07, 2025 Dr. Aman Iraheta MD Referring Provider Active Start: February 07, 2025 End: February 07, 2025 KERRI Gomez Attending Provider Active Sta rt: February 07, 2025 End: February 07, 2025 Team Status: Inactive Member Role/Relationship Status Dates Dr. Aman Iraheta MD Primary Care Provider Active Start: February 15, 2025 End: February 15, 2025 Dr. Aman Iraheta MD Attending Provider Active Start: February 15, 2025 End: February 15, 2025 Dr. Aman Iraheta MD Referring Provider Active Start: February 15, 2025 End: February 15, 2025 Team Status: Inactive Member Role/Relationship Status Dates Dr. Aman Iraheta MD Primary Care Provider Active Start: March 08, 2025 End: March 08, 2025 Dr. Saturnino Mix DO Emergency Provider Active Start: March 08, 2025 End: March 08, 2025 Heel Lining Paster Relationship Specialty Start Date End Date Aman Iraheta MD [address] [facility] [address] [place] [phone] PCP - General Internal Medicine 06/03/24 Team Status: Inactive Member Role/Relationship Status Dates Dr. Aman Iraheta MD Primary Care Provider Active Start: March 11, 2025 End: March 11, 2025 Dr. Aman Iraheta MD Referring Provider Active Start: March 11, 2025 End: March 11, 2025 TOMI FerrisC Attending Provider Active Start: March 11, 2025 End: March 11, 2025 Team Status: Inactive Member Role/Relationship Status Dates Dr. Aman Iraheta MD Primary Care Provider Active Start: March 08, 2025 End: March 08, 2025 Dr. Saturnino Mix DO Attending Provider Active Start: March 08, 2025 End: March 08, 2025 Dr. Saturnino Mix DO Emergency Provider Active Start: March 08, 2025 End: March 08, 2025 Team Status: Inactive Member Role/Relationship Status Dates Dr. Aman Iraheta MD Primary Care Provider Active Start: March 15, 2025 End: March 15, 2025 Ed Physician Provider Emergency Provider Active Start: March 15, 2025 End: March 15, 2025 Reason for Visit (unrecogniz ed section and content) Reason Comments Cough x1 month Eye Problem dry drainage every A M x1 month Reason Comments Results Reason Comments Insurance Authorization Reason Comments Follow Up cough continues- med ication she was Given caused stomach pain Reason Comments Patient Question Reason Comments Medication Problem Reason Comments ER F/U WC on Mar 18 for bronchitis Reason Comments [...] Spirometry Specialty Diagnoses / Procedures Referred By Xi manning Ref[facility] Diagnoses Persistent cough Tobacco use Procedures SPIROMETRY - BASELINE AND POST DILATOR BRNCDILAT RSPSE SPMTRY PRE&POST-BRNCDILAT ADMN Prudencio Pedro MD [address] [place] [address] [facility] [place] [address] [place] [address] Referral ID Status Reason Start Date Expiration Date V isits Requested Visits Authorized [id number] Closed Auto-Generate d Referral 02/18/2022 03/20/2023 1 [...] Reason Comments Smoking Cessation Trying to quit diallo ng. Currently smoking about 5 cigarettes a [...] TIME WITH IMAGE LIMITED Prudencio Pedro MD [address] [place] [address] [facility] [address] [place] [address] Referral ID Status Reason Start Date Expiration Date V isits Requested Visits Authorized [id number] Closed Auto-Generate d Referral 09/15/2022 10/15/2023 1 1 Specialty Diagnoses / Procedures Referred By Contac t Referred To Contact [facility] Diagnoses Abnormal mammogram Procedures US BREAST LTD RIGHT US BREAST UNI REAL TIME WITH IMAGE LIMITED Prudencio Pedro MD [address] [place] [address] [facility] [address] [place] [address] Referral ID Status Reason Start Date Expiration Date V isits Requested Visits Authorized [id number] Closed Auto-Generate d Referral 04/20/2023 11/18/2023 1 1 Reason Comments New Fracture Specialty Diagnoses / Procedures Referred By Contac t Referred To Contact Orthopedics Diagnoses Closed fracture of left wrist, initial encounter Procedures CONSULT TO ORTHOPAEDICS OFFICE/OUTPATIENT NEW HIGH MDM 60-74 MINUTES Aliyah Araujo APRN.[facility] [address] [place] [address] Bruce Wilson MD [address] [place] [phone] Referral ID Status Reason Start Date Expiration Date V isits Requested Visits Authorized [id number] Closed PCP Requested Referral 04/18/2023 04/17/2024 1 1 Reason Onset Date Comments Refill Request 05/31/2023 Reason Comments Pain (Shoulder Pain) L shoulder pain x1 month Reason Onset Date Comments Refill Request 06/24/2023 Reason Onset Date Comments Refill Request 06/27/2023 Reason Comments Rx refill; discontinued medication Reason Comments Physical Reason Onset Date Comments Refill Request 09/14/2023 Reason Comments Patient Question Dropped last pill Reason Comments Nausea & Vomiting Nausea and vomiting x 2 days Reason Onset Date Comments Refill Request 11/03/2023 Specialty Diagnoses / Procedures Referred By Contac t Referred [facility] Diagnoses Centrilobular emphysema (HCC) Procedures SPIROMETRY WITH DILATOR IF OBSTRUCTED BRNCDILAT RSPSE SPMTRY PRE&POST-BRNCDILAT ADMJudith Alfonso MD [address] [place] [phone] [facility] [place] [address] [place] [address] Referral ID Status Reason Start Date Expiration Date V isits Requested Visits Authorized [id number] Closed Auto-Generate d Referral 03/14/2023 04/12/2024 1 1 Reason Comments Established Patient Reason Comments Abdominal Pain Stomach hurts and vo miting x 1 day Reason Comments Clinical Update Reason Comments Orders Reason Comments ER F/U Patient has no dress ing supplies and reports no money Reason Onset Date Comments Refill Request 02/10/2024 Reason Comments Follow Up Right foot wound fol low up; has NOT seen wound care Reason Comments [facility] Wound Center requesting records Reason Onset Date Comments Refill Request 02/13/2024 Reason Comments Medication Request Reason Comments [facility] paperwork Reason Comments Paperwork Question Reason Comments Hospital F/U Discharged 02/21/24 from [facility] Reason Comments Burn Reason Comments Patient Update Patient Question Reason Comments Work Letter Request Reason Comments Pre-op clearance Results Reason Comments Nasal Congestion drainage x 4-5 days Reason Onset Date Comments Refill Request 03/20/2024 Reason Comments Question Reason Comments Pre-Op Exam Right foot skin deidra t surgery Reason Comments surgical clearance form Reason Onset Date Comments Refill Request 04/06/2024 Reason Comments C9 approval for Wound Center Reason Comments Chest Congestion Cough x3 days 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 Reason Comments Patient Question Inhaler use Reason Comments Established Patient Emphysema Reason Comments Problem Visit Reason Comments Medication Question Reason Comments Ear Problem R ear pain and clogg ed x 1 weeks Reason Comments Patient Question Reason Comments Head Congestion Nasal, post nasal dr ainage, stomach pain and vomiting x 2 daysNauseated Reason Onset Date Comments Results 09/28/2024 Reason Comments Chest Congestion sinus pressure, dizz iness x couple days, right hand numbness x 3 hours Reason Comments Nasal Congestion drainage, chest pat estion, cough x 2 days Reason Comments Cough Chest congestion, ea r pain, tip of tongue sore x months Reason Comments Mouth/Lip Problem Black spot on roof o f mouth x last night, painful Reason Comments Abdominal Pain Nausea, Gerd, headac he, vomiting, cough, RLQ abd pain x 2 days Goals (unrecognized section and content) Goals may be documented in a n alternate sectionGoals may be documented in an alternate sectionGoals may be documented in an alternate sectionGoals may be documented in an alternate sectionGoals may be documented in an alternate sectionGoals may be documented in an alternate sectionGoals may be documented in an alternate sectionGoals may be documented in an alternate sectionGoals may be documented in an alternate sectionGoals may be documented in an alternate sectionGoals may be documented in an alternate sectionGoals may be documented in an alternate sectionGoals may be documented in an alternate sectionGoals may be documented in an alternate sectionGoals may be documented in an alternate sectionGoals may be documented in an alternate sectionGoals may be documented in an alternate sectionGoals may be documented in an alternate sectionGoals may be documented in an alternate sectionGoals may be documented in an alternate sectionGoals may be documented in an alternate section INFORMATION SOURCE (unrecogn ized section and content) DATE CREATED AUTHOR 03/10/2025 [facility] DATE CREATED AUTHOR AUTHOR'S JOSE DAVID DEE 03/15/2025 [facility] FOR RECORDS PERTAINING TO PATIENTS WHO ARE [...] BE BASED ON THE PRIMARY CLINICAL RECORDS. [employer] [facility]. provides no warranty or guarantee of the accuracy or completeness of information in this document.
[2025-03-15 19:08] LABS: Hematocrit 44.8 % (37-47); Hemoglobin 15.5 g/dL (12.0-15.0); Immature Granulocytes Count 0.030 X10^3/uL (0.0-0.0); Mean Corp Hgb Conc 34.6 g/dL (32-36); Mean Corpuscular Volume 99.8 fL (81-99); Mean Platelet Vol. 10.7 fl (6.2-12.0); NRBC Flagged by Analyzer 0 % (0-5); Platelet Count 243 K/mm3 (150-450); RBC Distribution Width CV 12.6 % (11.6-14.6); RBC Distribution Width SD 46.5 fl (35.1-43.9); Red Blood Count 4.49 M/mm3 (4.2-5.4); White Blood Count 8.8 K/mm3 (4.4-11.0)
[2025-03-15 19:33] VITALS: BP 105/67; PULSE 69; RESP 19; O2SAT 94
[2025-03-15 19:38] LABS: AST(SGOT) 17 U/L (<=31); Alanine Aminotransfer ALT/SGPT 13 U/L (<=34); Albumin, Serum 4.5 g/dL (3.5-5.0); Alkaline Phosphatase 80 U/L (35-104); Anion Gap 12 (5-15); BUN 9 mg/dL (4-19); BUN/Creat Ratio 9.3 RATIO (10-20); Calcium,Total 9.7 mg/dL (7.6-11.0); Carbon Dioxide 28.3 mmol/L (21.0-32.0); Chloride 101 mmol/L (98-108); Estimated Creatinine Clearance 48.60 ml/min (50-250); Globulin 2.9 g/dL (2.2-4.2); Glucose 75 mg/dL (70-99); Lipase 19 U/L (13-75); Potassium 3.7 mmol/L (3.3-5.1)
[2025-03-15 20:08] VITALS: BP 118/80; PULSE 76; RESP 18; TEMP 36.6; O2SAT 96
== END 2025-03-15 20:11 | disposition home or self-care (01) ==
PROVIDERS: Physician Assistant; Emergency Provider Emergency Medicine; PCP Internal Medicine; Visit Provider Emergency Medicine
DX: R10.9 Unspecified abdominal pain (principal); J44.9 Chronic obstructive pulmonary disease, unspecified; F17.210 Nicotine dependence, cigarettes, uncomplicated; K21.9 Gastro-esophageal reflux disease without esophagitis; Z79.899 Other long term (current) drug therapy
CPT/HCPCS: 80053; 83690; 85025; 99283; A4216

== ENCOUNTER → 2025-04-18 | Outpatient (CLI) | payer MEDICAID, SELFPAY ==
--- NOTE | 2025-04-18 08:55 | US_ITS ---
PROCEDURE: ABDOMEN LIMITED 04/18/2025 REASON FOR EXAM: RUQ PAIN, RECOMMENDED BY CT TECHNIQUE: Procedure Code: USABDL Modality: US Procedure: ABDOMEN LIMITED COMPARISON: 03/08/2025 CT. FINDINGS: The liver measures 14.0 cm in length. Echogenicity is within normal limits. No hepatic cyst or mass is identified. Intrahepatic and extrahepatic bile ducts are within normal limits in caliber. Portal venous flow is hepatopetal. Hepatic color Doppler demonstrates normal flow. The gallbladder measures 6.4 cm in length. The gallbladder is contracted. Gallbladder wall thickness is 4 mm. Multiple echogenic foci with posterior acoustic shadowing are seen consistent with gallstones. Associated sludge and gravel are present. No pericholecystic fluid is identified. Common bile duct measures 7 mm in diameter. Ordonez's sign is negative. The pancreas is visualized and appears within normal limits in echogenicity. No pancreatic ductal dilatation is seen. The right kidney measures 9.8 x 4.2 x 4.5 cm. Cortical thickness is 1.4 cm. Cortical echogenicity is within normal limits. An echogenic focus measuring 0.6 x 0.2 x 0.7 cm is identified, consistent with a nonobstructing calculus. A simple cyst is present measuring 1.0 x 1.1 x 1.3 cm. No hydronephrosis is identified. US/Abdomen Limited IMPRESSION: Contracted gallbladder with multiple calculi and sludge. Gallbladder wall is mi ldly thickened at 4 mm. No pericholecystic fluid. Findings could reflect chronic cholecystitis in the appropriate clinical settin g. Common bile duct measures 7 mm, upper limits of normal. Correlate with LFTs. Normal liver and pancreas. Right kidney with a nonobstructing calculus and a simple cyst measuring up to 1 .3 cm. No hydronephrosis. Reading Location: [id number]
== END | disposition home or self-care (01) ==
LOC: US 08:52
PROVIDERS: PCP Internal Medicine; Referring Provider Nurse Practitioner Family; Visit Provider Nurse Practitioner Family
DX: R10.11 Right upper quadrant pain (principal)
CPT/HCPCS: 76705

== ENCOUNTER → 2025-05-13 | Outpatient (CLI) | payer MEDICAID, SELFPAY | END | disposition home or self-care (01) | PROVIDERS: PCP Internal Medicine; Referring Provider Nurse Practitioner Family; Visit Provider Nurse Practitioner Family | DX: M25.552 Pain in left hip (principal); B20 Human immunodeficiency virus [HIV] disease; M25.562 Pain in left knee | CPT/HCPCS: 36415; 73502; 73564; 80053; 82465; 84478; 85025; 86361; 87536 ==

== ENCOUNTER → 2025-05-13 | Outpatient (CLI) | payer MEDICAID, SELFPAY ==
[2025-05-13 12:21] LABS: Hematocrit 43.9 % (37-47); Hemoglobin 14.8 g/dL (12.0-15.0); Immature Granulocytes Count 0.010 X10^3/uL (0.0-0.0); Mean Corp Hgb Conc 33.7 g/dL (32-36); Mean Corpuscular Volume 101.4 fL (81-99); Mean Platelet Vol. 11.0 fl (6.2-12.0); NRBC Flagged by Analyzer 0 % (0-5); Platelet Count 234 K/mm3 (150-450); RBC Distribution Width CV 12.3 % (11.6-14.6); RBC Distribution Width SD 46.7 fl (35.1-43.9); Red Blood Count 4.33 M/mm3 (4.2-5.4); White Blood Count 6.3 K/mm3 (4.4-11.0)
[2025-05-13 13:02] LABS: AST(SGOT) 22 U/L (<=31); Alanine Aminotransfer ALT/SGPT 11 U/L (<=34); Albumin, Serum 4.3 g/dL (3.5-5.0); Alkaline Phosphatase 76 U/L (35-104); Anion Gap 8 (5-15); BUN 11 mg/dL (4-19); BUN/Creat Ratio 10.6 RATIO (10-20); Calcium,Total 9.5 mg/dL (7.6-11.0); Carbon Dioxide 27.7 mmol/L (21.0-32.0); Chloride 105 mmol/L (98-108); Cholesterol 144 mg/dL (<=200); Globulin 2.8 g/dL (2.2-4.2); Glucose 94 mg/dL (70-99); Potassium 4.6 mmol/L (3.3-5.1); Triglycerides 177 mg/dL
[2025-05-14 15:08] LABS: Hematocrit 45.2 % (34.0-46.6); Hemoglobin 15.1 g/dL (11.1-15.9); MCH 34.4 pg (26.6-33.0); MCHC 33.4 g/dL (31.5-35.7); MCV 103 fL (79-97); Percent % CD4 Pos. Lymph. 51.4 % (30.8-58.5); RDW 12.4 % (11.7-15.4)
[2025-05-15 04:07] LABS: HIV-1 RNA by PCR, Quant. < 20 copies/mL (.)
== END | disposition home or self-care (01) ==
LOC: LAB 11:45
PROVIDERS: PCP Internal Medicine; Referring Provider Internal Medicine Infectious Disease; Visit Provider Internal Medicine Infectious Disease
DX: B20 Human immunodeficiency virus [HIV] disease (principal)
CPT/HCPCS: 36415; 80053; 82465; 84478; 85025; 86361; 87536

== ENCOUNTER 2025-05-27 09:23 | Day surgery (SDC) | payer MEDICAID, SELFPAY ==
[2025-05-27] VITALS (10 sets, daily range): BP systolic 101–131; BP diastolic 68–92; PULSE 66–86; RESP 16–18; TEMP 36.2–36.7; O2SAT 94–99; BMI 21.7
--- NOTE | 2025-05-27 10:13 | EKG12_ITS ---
Test Reason : PRE-OP
[2025-05-27] MEDS: Lactated Ringers 1,000 ML 15 ML IV (10:20)
[2025-05-27] MEDS: INDOCYANINE GREEN 3.75 MG in Syringe 1.5 ML 999 MG IV (10:20)
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
--- NOTE | 2025-05-27 11:30 | GALL_PTH ---
PATIENT: KRISSY SIMPSON LOC: [facility] [place] U#:[id number] AGE/SX: 55/F ROOM: RE05/27/[address]: Dr. Juvencio Colon MD : [id number] BED: DIS: 05/27/2025 SPEC #: [id number] RECD: 05/28/25 07:20 STATUS: JHONNY KIRKLAND #: [id number] REILLY: 05/27/25 11:[address]: Juvencio Colon DEPT: SURGICAL PATHOLOGY RECD BY: Pedrito Nunn ENTERED: 05/28/25 10:22 SP TYPE: PILO OLMSTEAD DR: Dr. Aman Iraheta MD Tissues: A - Gallbladder, NOS Procedures: Surgery Specimen Level III HEADER OPERATION: Robotic cholecystectomy PRE-OP DIAGNOSIS: Cholelithiasis TISSUE SUBMITTED: A- Gallbladder MICROSCOPIC DIAGNOSIS A. Gallbladder, robotic cholecystectomy: - Chronic cholecystitis with goblet cell metaplasia. - Cholelithiasis. MICROSCOPIC DESCRIPTION Slides are reviewed. GROSS DESCRIPTION A. Received in formalin labeled with the patient's name and date of . Designated as gallbladder is a 8.2 x 3.2 x 3.1 cm green, intact and distended gallbladder with attached patent cystic duct (inked black, shaved). A lymph node is not present. Opening reveals dark green, tenacious bile and innumerable yellow, bosselated choleliths, ranging <0.1 cm to 1.3 cm. The mucosa is dark green and granular with a maximum wall thickness of 0.2 cm. Cholesterolosis is not present. Mobile Marketing Manager sections are submitted in 1 cassette. [place] 05/28/2025 CPT:60933
--- NOTE | 2025-05-27 13:43 | HP.PCM_ITS ---
History and Physical
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
--- NOTE | 2025-05-27 15:26 | OP.PCM_ITS ---
Operative Report (Standard)
--- NOTE | 2025-05-27 15:26 | PCM.OPRPT ---
Operative Report (Standard) Operative Information Date of Procedure: 05/27/25 Pre-Operative Diagnosis: Cholelithiasis Post-Operative Diagnosis: Same Surgery/Procedure Performed: Robotic assisted laparoscopic cholecystectomy distribution designer: Yes Community Living Specialist: Latoya Craft Tasks completed by communication assistant: Opening & closing and Retracting Type of Anesthesia: General/Regional RN Documented Start/Stop Times: Operation Date: 05/27/25 11:30 Case Time Into Pre-Op 05/27/25 10:07 Out of Pre-Op 05/27/25 14:09 Anesthesia Start 05/27/25 14:18 Into Room 05/27/25 14:18 Procedure Start 05/27/25 14:39 Procedure Start Time: 14:39 Procedure Stop Time: 15:35 Select all DRAINS/GRAFTS/IMPLANTS that apply: None Estimated Blood Loss: 10 Specimen collected: Yes Description of specimen(s) removed: Gallbladder Description of surgery: Patient was brought to the operating room and general anesthesia was induced. The abdomen was prepped and draped in usual sterile fashion. A midline incision was made superior to the umbilicus and deepened to the fascia which was incised and elevated. A port was placed into the abdomen and the abdomen was insufflated to 15 mmHg. Under direct visualization an 8 mm ports placed in the right upper quadrant and two 8 mm ports were placed in the left upper quadrant and the patient was placed in reverse Trendelenburg position and the robot was docked. The gallbladder was grasped and retracted cephalad. The infundibulum was grasped and retracted laterally. The portal vein was tightly adherent to the cystic duct. The cystic duct was identified and dissected free of the portal vein and the cystic artery was dissected free as well. 3 clips were placed on the artery and it was divided. The cystic duct was carefully dissected off of the portal vein and clipped. It was divided. Next the gallbladder was taken off of the gallbladder fossa using electrocautery hook. There was good hemostasis. Next the gallbladder was placed into a bag. The robotic arms were removed and the abdomen was allowed to desufflate. The bag was removed through the umbilical incision. The umbilical fascia was closed with interrupted 0 Vicryl sutures. The skin incisions were injected with local anesthetic and closed with interrupted 4-0 Monocryl sutures. Steri-Strips and bandages were applied. Patient was awoken and taken to PACU in stable condition and tolerated the procedure well. Surgical Findings: None Complications Complications: No Admit VTE Documentation VTE Mechan Device Prophylaxis: SCD's
--- NOTE | 2025-05-27 15:32 | DCINST_ITS ---
Discharge Instructions
--- NOTE | 2025-05-27 15:32 | EX.PCM.DISCH ---
Discharge Instructions Procedure Gallbladder Diet Discharge Diet: Light diet - advance as tolerated Activity Discharge Activity: May Not Drive (for 2-3 days or while taking narcotic pain medications.) and - (Do not drive, work heavy equipment or sign legal documents for 24 hours.) May shower in (days): 1 Lifting Restrictions: 20 lbs for 2 weeks Additional Activity Instructions:: Pain medication may cause nausea. You should typically eat light foods as you take your pain medications. Pain medication may also cause constipation. If this is a problem for you, please discuss with your doctor. Alternate ibuprofen and Tylenol for pain control, oxycodone for breakthrough pain Dressing / Incision Call your doctor if your incision/area has: Continuous Slow Oozing, Sudden Increased Bleeding, Increased Pain/ Swelling, Increased Redness and Foul Smelling Discharge Call your doctor if you observe: Fever of 101 or Higher Suture Line Care: Avoid Pulling/Pushing and Avoid Pinching/Bending Remove Dressing in: 2 days Additional Dressing/Incision Instructions:: Leave operative bandaids on for 2 days. When you remove dressing, leave Steri-Strips on until your follow-up appointment, or until the Steri-Strips fall off on their own. Follow Up Care Please Follow Up With: Juvencio Colon MD When: Please call to schedule 2 week follow up appointment. [phone] Test Results: Test results from this visit will be discussed in further detail at your follow-up appointment, if applicable. Discharge Plan Admission Attending Provider: Juvencio Colon Primary Care Provider: Aman Iraheta Instructions Print Language: Polish Discharge Orders/Prescriptions Prescriptions: New oxycodone 5 mg Tablet 5 - 10 mg PO Q4H PRN PRN (Reason: Pain Score 4-10) 5 Days Qty: 14 0RF No Action cetirizine 10 mg tablet 10 mg PO DAILY PRN (Reason: allergies) Patient Comments: TAKE 1 TABLET BY MOUTH ONCE DAILY ondansetron 4 mg tablet,disintegrating 4 mg PO Q8H PRN PRN (Reason: Nausea) Qty: 10 0RF albuterol sulfate 90 mcg/actuation HFA aerosol inhaler 2 puff inhalation Q6H PRN (Reason: shortness of breath or wheezing) cyclobenzaprine 10 mg tablet 10 mg PO TID PRN (Reason: muscle spasm) Biktarvy 50-200-25 mg tablet 1 tab PO DAILY Patient Comments: TAKE 1 TABLET BY MOUTH DAILY guaifenesin [Mucinex] 600 mg tablet extended release 12hr 600 mg PO DAILY PRN (Reason: copd) mecobalamin (vitamin B12) 1,000 mcg tablet,disintegrating 1,000 mcg sublingual QDAY Qty: 90 1RF Rx Instructions: place tablet under tongue and allow to dissolve for at least30 secs before swallowing calcium carbonate-vitamin D3 500 mg-15 mcg (600 unit) tablet 1 tab PO DAILY 90 Days Qty: 90 0RF Referrals / Follow Up: Aman Iraheta MD [Primary Care Provider, Internal Medicine] Disposition Disposition (needs filled in before D/C Order can be placed): Home, Self Care
--- NOTE | 2025-05-27 15:44 | POSTOP.ANE_ITS ---
Anesthesia: Postop Eval I
--- NOTE | 2025-05-27 15:44 | PCM.POST.ANE ---
Anesthesia: Postop Eval I Current Vital Signs Temperature: 97.2 F Pulse Rate: 80 Blood Pressure: 111/81 Respiratory Rate: 16 Pulse Ox: 96 Oxygen Delivery Method: Room Air Assessment Airway patent: Yes Spontaneous unlabored respirations: Yes Mental status: Awake and Calm nausea: No Vomiting: No Anesthesia Complication: No Fluid Hydration Crystalloid volume administer (ml): 1,100 Total IV fluid infused: 1,100 Progress Note Anesthesia document: Postop Eval 1 completed: Yes
--- NOTE | 2025-05-27 16:37 | POSTOPAN2_ITS ---
Anesthesia Postop Eval I Sum
--- NOTE | 2025-05-27 16:37 | PCM.POSTANE2 ---
Anesthesia Postop Eval I Sum Postop Eval Completion status Anesthesia document: Postop Eval 1 completed: Yes Anesthesia Postop Eval I Summary Anesthesia Postop Eval I Summary: Anesthesia Postop Eval I: Assessment Summary Airway patent Yes 05/27/25 15:45 [email or web address] Spontaneous unlabored Yes 05/27/25 15:45 [email or web address] respirations Mental status Awake,Calm 05/27/25 15:45 [email or web address] nausea No 05/27/25 15:45 [email or web address] [email or web address] Vomiting No 05/27/25 15:45 [email or web address] Anesthesia Postop Eval I: Fluid Summary Crystalloid volume administer 1,100 05/27/25 15:45 [email or web address] (ml) Colloids volume administered ( ml) Blood Product volume administered (ml) Total IV fluid infused 1,100 05/27/25 15:45 [email or web address] Anesthesia Postop Eval I: Summary Notes Anesthesia Complication No 05/27/25 15:45 [email or web address] Anesthesia Complication Comment: Post-operative progress note Anesthesia: Postop Eval II Evaluation Mental status: Awake Pain Level: 0 nausea: No Vomiting: No Complications Anesthesia Complication: No
--- NOTE | 2025-05-27 18:25 | SUR.PHASEII ---
assitsed pt with getting dressed, had another small emesis. given warm blanket and offered queese ease- she didn't want this pt taken out to car-
== END 2025-05-27 18:26 | disposition home or self-care (01) ==
LOC: SDC 09:26 → AC 09:27
PROVIDERS: PCP Internal Medicine; Referring Provider Surgery; Visit Provider Surgery
PROC: 0FT44ZZ Resection of Gallbladder, Percutaneous Endoscopic Approach (ICD-10-PCS; CPT 47562; principal; 2025-05-27 11:10)
DX: K80.10 Calculus of gallbladder with chronic cholecystitis without obstruction (principal); J43.9 Emphysema, unspecified; K21.9 Gastro-esophageal reflux disease without esophagitis; F17.210 Nicotine dependence, cigarettes, uncomplicated
CPT/HCPCS: 47562; S2900; 00790; 88304; 93005; 94640; J0525; J2405

== ENCOUNTER 2025-06-29 13:24 | Emergency (ER) | payer MEDICAID, SELFPAY ==
[2025-06-29 13:25] VITALS: BP 126/87; PULSE 97; RESP 16; TEMP 36.2; O2SAT 99; BMI 22.0
[2025-06-29 13:34] VITALS: BMI 21.9
--- NOTE | 2025-06-29 13:50 | CT_ITS ---
PROCEDURE: BRAIN/HEAD WITHOUT CONTRAST 06/29/2025 REASON FOR EXAM: HISTORY OF ANEURYSM, LEFT VISION CHANGES TECHNIQUE: Procedure Code: CTBR Modality: CT Procedure: BRAIN/HEAD WITHOUT CONTRAST Coronal and Sagittal reconstruction series were provided. One or more dose reduction techniques were used (e.g., Automated exposure control, adjustment of the mA and/or kV according to patient size, use of iterative reconstruction technique. RADIATION DOSE SUMMARY: CTDlvol: 45 mGy DLP: 830 mGycm COMPARISON: September 25, 2024 FINDINGS: Brain: Similar to prior exam there is asymmetric volume loss on the left cerebral hemisphere. No hemorrhage or ischemia seen. Hypodensity near the head of the caudate on the left from prior ischemia. No change. CSF Spaces: No hydrocephalus. Sinuses/Mastoids: Clear Bones: No fracture CT/Brain/Head without Contrast IMPRESSION: No new acute abnormality. Asymmetric volume loss in the left cerebral hemisphe re is unchanged. Reading Location: [id number]
--- OUTSIDE RECORDS SUMMARY | 2025-06-29 13:51 | XMS RPT_ITS | CCD ---
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 Translations: [Procedure and treatment not carried out, unspecified reason] 03-27-2024 Episodic Residual codes; unclassified (1 source) Illness, unspecified; Translations: [Illness, unspecified] Onset: 5 Episodic Skin and subcutaneous tissue infections (19 sources) Cellulitis of skin; Translations: [Cellulitis, unspecified] 02-27-2024 Episodic Substance-related disorders (20 sources) Smoker; Translations: [Nicotine dependence, unspecified, uncomplicated] Onset: Chronic Unclassified (19 sources) Pruritus caused by drug; Translations: [Drug-induced pruritus] 10-04-2024 Episodic Unclassified (10 sources) Pigmented skin lesion of uncertain behavior of torso; Translations: [L81.9 - Disorder of pigmentation, unspecified] Unclassified (3 sources) Thickening of wall of gallbladder Unclassified (5 sources) R10.9 - Unspecified abdominal pain,K82.8 - Other specified diseases of gallbladder Unclassified (1 source) Cough with sputum; Translations: [Cough with sputum] Onset: 5 Unclassified (2 sources) Finding of measures of gallbladder Unclassified (1 source) Low back pain, unspecified; Translations: [Low back pain, unspecified] Onset: 5 Viral infection (2 sources) Viral disease; Translations: [Viral infection, unspecified] Episodic Past or Other Problems Problem Classification Problem Date Documented Da te Episodic/Chronic Allergic reactions (2 sources) Other allergy status, other than to drugs and biological substances; Translations: [Allergy, unspecified, initial encounter] Onset: 08-16-2024 Episodic Diseases of mouth; excluding dental (2 sources) Painful mouth; Translations: [Other lesions of oral mucosa] Onset: 12-28-2024 12-28-2024 Episodic Other diseases of kidney and ureters (1 source) Disorder of kidney and ureter, unspecified; Translations: [Disorder of kidney and ureter, unspecified] Onset: 09-25-2024 Episodic Other injuries and conditions due to external causes (1 source) Unspecified injury of head, initial encounter; Translations: [Unspecified injury of head, initial encounter] Onset: 02-22-2025 Episodic Other lower respiratory disease (20 sources) Cough; Translations: [Acute cough] Onset: 03-24-2022 Episodic Other lower respiratory disease (8 sources) Productive cough ; Translations: [Productive cough] Onset: 07-31-2024 05-31-2023 Episodic Other lower respiratory disease (1 source) Shortness of breath; Translations: [Shortness of breath] Onset: 11-30-2024 Episodic Other nervous system disorders (1 source) Paresthesia of skin; Translations: [Paresthesias in right hand] Onset: 11-07-2024 Episodic Other screening for suspected conditions (not mental disorders or infectious disease) (20 sources) Patient encounter status; Translations: [Encounter for screening mammogram for malignant neoplasm of breast] Onset: 09-18-2024 Episodic Residual codes; unclassified (1 source) Tobacco use; Translations: [Tobacco use] Onset: 12-13-2024 Episodic Spondylosis; intervertebral disc disorders; other back problems (20 sources) Acute back pain with sciatica; Translations: [Lumbago with sciatica, right side] Onset: 09-14-2024 Episodic Results Test Name Value Interpretation Reference Range Facility 12 Lead EKGon 05-27-2025 12 Lead EKG [facility] Cardiovascular Services [address] [place] [address] 12 Lead EKG 05/27/25 1001 MR#: [id number] Acct: [id number] Name: TRACY VAZQUEZ Rep #: [id number] : 1970 55 From: Rubina Rodriguez MD Attending Dr: Dr. Juvencio Colon MD Status: REG [facility] Ordering Dr: Uziel Kendrick MD Date: 05/27/25 Location: Sex: F C Admitted: Test Reason : PRE-OP Blood Pressure : */* mmHG Vent. Rate : 77 BPM Atrial Rate : 77 BPM P-R Int : 160 ms QRS Dur : 82 ms QT Int : 398 ms P-R-T Axes : 75 68 66 degrees QTcB Int : 450 ms Normal sinus rhythm Normal ECG When compared with ECG of 15-May-2019 12:23, No significant change was found Confirmed by Rubina Rodriguez ([id number]), city editor DULCE LOPEZ ([id number]) on 05/27/2025 1:11:11 PM Referred By: Juvencio Colon Confirmed By: Rubina Rodriguez 05/27/25 1311 Date Rubina Rodriguez MD CC: Dr. Uziel Kendrick MD; Dr. Juvencio Colon MD; Dr. Fina Iraheta MD Signed Normal [facility] Discharge Instructionon 05-18 Discharge Instruction [facility] Medical Records Department [address] [place] [address] Instructions for Home/Discharge Instructions 05/27/25 1532 MR#: [id number] Acct: [id number] Name: TRACY VAZQUEZ Rep #: [id number] : 1970 55 From: Juvencio Colon MD PCP: Dr. Fina Iraheta MD Status:REG [facility] Discharge Instructions Procedure Gallbladder Diet Discharge Diet: Light diet - advance as tolerated Activity Discharge Activity: May Not Drive (for 2-3 days or while taking narcotic pain medications.) and - (Do not drive, work heavy equipment or sign legal documents for 24 hours.) May shower in (days): 1 Lifting Restrictions: 20 lbs for 2 weeks Additional Activity Instructions:: Pain medication may cause nausea. You should typically eat light foods as you take your pain medications. Pain medication may also cause constipation. If this is a problem for you, please discuss with your doctor. Alternate ibuprofen and Tylenol for pain control, oxycodone for breakthrough pain Dressing / Incision Call your doctor if your incision/area has: Continuous Slow Oozing, Sudden Increased Bleeding, Increased Pain/ Swelling, Increased Redness and Foul Smelling Discharge Call your doctor if you observe: Fever of 101 or Higher Suture Line Care: Avoid Pulling/Pushing and Avoid Pinching/Bending Remove Dressing in: 2 days Additional Dressing/Incision Instructions:: Leave operative bandaids on for 2 days. When you remove dressing, leave Steri-Strips on until your follow-up appointment, or until the Steri-Strips fall off on their own. Follow Up Care Please Follow Up With: Juvencio Colon MD When: Please call to schedule 2 week follow up appointment. [phone] Test Results: Test results from this visit will be discussed in further detail at your follow-up appointment, if applicable. Discharge Plan Admission Attending Provider: Juvencio Colon Primary Care Provider: Fina Iraheta Instructions Print Language: Nepali Discharge Orders/Prescriptions Prescriptions: New oxycodone 5 mg Tablet 5 - 10 mg PO Q4H PRN PRN (Reason: Pain Score 4-10) 5 Days Qty: 14 0RF No Action cetirizine 10 mg tablet 10 mg PO DAILY PRN (Reason: allergies) Patient Comments: TAKE 1 TABLET BY MOUTH ONCE DAILY ondansetron 4 mg tablet,disintegrating 4 mg PO Q8H PRN PRN (Reason: Nausea) Qty: 10 0RF albuterol sulfate 90 mcg/actuation HFA aerosol inhaler 2 puff inhalation Q6H PRN (Reason: shortness of breath or wheezing) cyclobenzaprine 10 mg tablet 10 mg PO TID PRN (Reason: muscle spasm) Biktarvy 50-200-25 mg tablet 1 tab PO DAILY Patient Comments: TAKE 1 TABLET BY MOUTH DAILY guaifenesin [Mucinex] 600 mg tablet extended release 12hr 600 mg PO DAILY PRN (Reason: copd) mecobalamin (vitamin B12) 1,000 mcg tablet,disintegrating 1,000 mcg sublingual QDAY Qty: 90 1RF Rx Instructions: place tablet under tongue and allow to dissolve for at least30 secs before swallowing calcium carbonate-vitamin D3 500 mg-15 mcg (600 unit) tablet 1 tab PO DAILY 90 Days Qty: 90 0RF Referrals / Follow Up: Fina Iraheta MD [Primary Care Provider, Internal Medicine] Disposition Disposition (needs filled in before D/C Order can be placed): Home, Self Care 05/27/25 1539 Juvencio Colon MD CC: Dr. Fina Iraheta MD Signed Normal [facility] MR/POSTOP.Julio 05-27-2025 MR/POSTOP.[facility] Medical Records Department [address] [place] [address] Anesthesia Postop Eval I 05/27/25 1544 MR#: [id number] Acct: [id number] Name: TRACY VAZQUEZ Rep #: [id number] : 1970 55 From: Alpa Morales WELDING MACHINE OPERATOR ARC PCP: Dr. Fina Iraheta MD Status:REG SDC Y Race: C Location: [place] [address] Anesthesia: Postop Eval I Current Vital Signs Temperature: 97.2 F Pulse Rate: 80 Blood Pressure: 111/81 Respiratory Rate: 16 Pulse Ox: 96 Oxygen Delivery Method: Room Air Assessment Airway patent: Yes Spontaneous unlabored respirations: Yes Mental status: Awake and Calm nausea: No Vomiting: No Anesthesia Complication: No Fluid Hydration Crystalloid volume administer (ml): 1,100 Total IV fluid infused: 1,100 Progress Note Anesthesia document: Postop Eval 1 completed: Yes 05/27/25 1545 Date Alpa Morales WELDING MACHINE OPERATOR ARC Cosigner Signature: Date CC: Signed Normal [facility] MR/[id number] 05-27-2025 [facility] Medical Records Department [address] [place] [address] Anesthesia Postop Eval II 05/27/25 1637 MR#: [id number] Acct: [id number] Name: ELIZABETH VAZQUEZQUELINE JUAN Rep #: [id number] : 1970 55 From: Jorge Alanis MD PCP: Dr. Fina Iraheta MD Status:REG SD Y Race: C Location: [place] [address] Anesthesia Postop Eval I Sum Postop Eval Completion status Anesthesia document: Postop Eval 1 completed: Yes Anesthesia Postop Eval I Summary Anesthesia Postop Eval I Summary: Anesthesia Postop Eval I: Assessment Summary Airway patent Yes 05/27/25 15:45 WELDING MACHINE OPERATOR ARC.JDEF Spontaneous unlabored Yes 05/27/25 15:45 WELDING MACHINE OPERATOR ARC.JDEF respirations Mental status Awake,Calm 05/27/25 15:45 WELDING MACHINE OPERATOR ARC.JDEF nausea No 05/27/25 15:45 WELDING MACHINE OPERATOR ARC.JDEF Vomiting No 05/27/25 15:45 WELDING MACHINE OPERATOR ARC.JDEF Anesthesia Postop Eval I: Fluid Summary Crystalloid volume administer 05/27/25 15:45 WELDING MACHINE OPERATOR ARC.JDEF (ml) Colloids volume administered ( ml) Blood Product volume administered (ml) Total IV fluid infused ,05/27/25 15:45 WELDING MACHINE OPERATOR ARC.JDEF Anesthesia Postop Eval I: Summary Notes Anesthesia Complication No 05/27/25 15:45 WELDING MACHINE OPERATOR ARC.JDEF Anesthesia Complication Comment: Post-operative progress note Anesthesia: Postop Eval II Evaluation Mental status: Awake Pain Level: 0 nausea: No Vomiting: No Complications Anesthesia Complication: No 05/27/25 1637 Date Jorge Alanis MD Cosigner Signature: Date CC: Signed Normal [facility] Operative Reporton 5 Operative Report [facility] Medical Records Department [address] [place] [address] Operative Report 05/27/25 1526 MR#: [id number] Acct: [id number] Name: TRACY VAZQUEZ Rep #: [id number] : 1970 55 From: Juvencio Colon MD PCP: Dr. Fina Iraheta MD Status:[facility] Location: [place] [address] Operative Report (Standard) Operative Information Date of Procedure: 05/27/25 Pre-Operative Diagnosis: Cholelithiasis Post-Operative Diagnosis: Same Surgery/Procedure Performed: Robotic assisted laparoscopic cholecystectomy mail order clerk: Yes Dry Can Tender: Latoya Craft Tasks completed by surgical first assistant: Opening closing and Retracting Type of Anesthesia: General/Regional RN Documented Start/Stop Times: Operation Date: 05/27/25 11:30 Case Time Into Pre-Op 05/27/25 10:07 Out of Pre-Op 05/27/25 14:09 Anesthesia Start 05/27/25 14:18 Into Room 05/27/25 14:18 Procedure Start 05/27/25 14:39 Procedure Start Time: 14:39 Procedure Stop Time: 15:35 Select all DRAINS/GRAFTS/IMPLANTS that apply: None Estimated Blood Loss: 10 Specimen collected: Yes Description of specimen(s) removed: Gallbladder Description of surgery: Patient was brought to the operating room and general anesthesia was induced. The abdomen was prepped and draped in usual sterile fashion. A midline incision was made superior to the umbilicus and deepened to the fascia which was incised and elevated. A port was placed into the abdomen and the abdomen was insufflated to 15 mmHg. Under direct visualization an 8 mm ports placed in the right upper quadrant and two 8 mm ports were placed in the left upper quadrant and the patient was placed in reverse Trendelenburg position and the robot was docked. The gallbladder was grasped and retracted cephalad. The infundibulum was grasped and retracted laterally. The portal vein was tightly adherent to the cystic duct. The cystic duct was identified and dissected free of the portal vein and the cystic artery was dissected free as well. 3 clips were placed on the artery and it was divided. The cystic duct was carefully dissected off of the portal vein and clipped. It was divided. Next the gallbladder was taken off of the gallbladder fossa using electrocautery hook. There was good hemostasis. Next the gallbladder was placed into a bag. The robotic arms were removed and the abdomen was allowed to desufflate. The bag was removed through the umbilical incision. The umbilical fascia was closed with interrupted 0 Vicryl sutures. The skin incisions were injected with local anesthetic and closed with interrupted 4-0 Monocryl sutures. Steri-Strips and bandages were applied. Patient was awoken and taken to PACU in stable condition and tolerated the procedure well. Surgical Findings: None Complications Complications: No Admit VTE Documentation VTE Mechan Device Prophylaxis: SCD's 05/27/251531 Cosigner Signature (if applicable): CC: Dr. Juvencio Colon MD; Dr. Fina Iraheta MD Signed Normal [facility] HIV Viral Load Quanton 05-15 HIV-1 RNA, PCR < 20 Normal . [facility] Comment on above: Result Comment: HIV- 1 RNA not detected The reportable range for this assay is 20 to 10,000,000 copies HIV-1 RNA/mL. Performed By: #### L 500.4050, L501.2450, L100.0100 #### [facility] Laboratory [address] [place], [address] log10 HIV-1 RNA TNP Normal . [facility] Comment on above: Result Comment: Resu lt Units: [id number]/mL Unable to calculate result since non-numeric result obtained for component test. Performed at: [address] [id number] Marketing Producer: Trevin Anguiano MD, Phone: [phone] Performed By: #### L 500.4050, L501.2450, L100.0100 #### [facility] [address] [place], [address] CD4, T Lymph Monona Counton 05-14-2024 % CD4 POS.LYMPH 51.4 Normal 30.8-58.5 [facility] Comment on above: Performed By: #### L 500.4050, L501.2450, L100.0100 #### [facility] [address] [place], [address] ABSOLUTE CD4 1131 /uL Normal 359-1519 [facility] Comment on above: Performed By: #### L 500.4050, L501.2450, L100.0100 #### [facility] [address] [place], [address] Basophils 1 Normal Not Estab. [facility] Comment on above: Performed By: #### L 500.4050, L501.2450, L100.0100 #### [facility] [address] [place], [address] Basos Absolute 0.1 x10E3/uL Normal 0.0-0.2 [facility] Comment on above: Performed By: #### L 500.4050, L501.2450, L100.0100 #### [facility] [address] [place], [address] Eos Absolute 0.1 x10E3/uL Normal 0.0-0.4 [facility] Comment on above: Performed By: #### L 500.4050, L501.2450, L100.0100 #### [facility] [address] [place], [address] Eosinophils 2 Normal Not Estab. [facility] Comment on above: Performed By: #### L 500.4050, L501.2450, L100.0100 #### [facility] [address] [place], [address] Erythrocyte distribution width (RBC) [Ratio] 12.4 % Normal 11.7-15.4 [facility] Comment on above: Performed By: #### L 500.4050, L501.2450, L100.0100 #### [facility] [address] [place], [address] Hematocrit (Bld) [Volume fraction] 45.2 % Normal 34.0-46.6 [facility] Comment on above: Performed By: #### L 500.4050, L501.2450, L100.0100 #### [facility] [address] [place], [address] Heme Comment TNP Normal . [facility] Comment on above: Performed By: #### L 500.4050, L501.2450, L100.0100 #### [facility] [address] [place], [address] Hemoglobin (Bld) [Mass/Vol] 15.1 g/dL Normal 11.1-15.9 [facility] Comment on above: Performed By: #### L 500.4050, L501.2450, L100.0100 #### [facility] [address] [place], [address] Imm Grans Abs 0 x10E3/uL Normal 0.0-0.1 [facility] Comment on above: Result Comment: Perf ormed at: [facility] [address] [id number] Marketing Producer: Leonard Chester PhD, Phone: [phone] Performed By: #### L 500.4050, L501.2450, L100.0100 #### [facility] [address] [place], [address] Immature Cells TNP Normal . [facility] Comment on above: Performed By: #### L 500.4050, L501.2450, L100.0100 #### [facility] [address] [place], [address] Immature Grans 0 Normal Not Estab. [facility] Comment on above: Performed By: #### L 500.4050, L501.2450, L100.0100 #### [facility] [address] [place], [address] Lymphocytes 35 Normal Not Estab. [facility] Comment on above: Performed By: #### L 500.4050, L501.2450, L100.0100 #### [facility] [address] [place], [address] Lymphocytes (Bld) [#/Vol] 2.2 10*3/uL Normal 0.7-3.1 [facility] Comment on above: Performed By: #### L 500.4050, L501.2450, L100.0100 #### [facility] [address] [place], [address] MCH (RBC) [Entitic mass] 34.4 pg High 26.6-33.0 [facility] Comment on above: Performed By: #### L 500.4050, L501.2450, L100.0100 #### [facility] [address] [place], [address] MCHC (RBC) [Mass/Vol] 33.4 g/dL Normal 31.5-35.7 [facility] Comment on above: Performed By: #### L 500.4050, L501.2450, L100.0100 #### [facility] [address] [place], [address] MCV (RBC) [Entitic vol] 103 fL High 79-97 [facility] Comment on above: Performed By: #### L 500.4050, L501.2450, L100.0100 #### [facility] [address] [place], [address] Monocytes 6 Normal Not Estab. [facility] Comment on above: Performed By: #### L 500.4050, L501.2450, L100.0100 #### [facility] [address] [place], [address] Monos Absolute 0.4 x10E3/uL Normal 0.1-0.9 [facility] Comment on above: Performed By: #### L 500.4050, L501.2450, L100.0100 #### [facility] [address] [place], [address] Neutro Absolute 3.4 x10E3/uL Normal 1.4-7.0 [facility] Comment on above: Performed By: #### L 500.4050, L501.2450, L100.0100 #### [facility] [address] [place], [address] Neutrophils 56 Normal Not Estab. [facility] Comment on above: Performed By: #### L 500.4050, L501.2450, L100.0100 #### [facility] [address] [place], [address] NRBC Count TNP Normal . [facility] Comment on above: Performed By: #### L 500.4050, L501.2450, L100.0100 #### [facility] [address] [place], [address] Platelets (Bld) [#/Vol] 227 10*3/uL Normal 150-450 [facility] Comment on above: Performed By: #### L 500.4050, L501.2450, L100.0100 #### [facility] [address] [place], [address] RBC (Bld) [#/Vol] 4.39 10*6/uL Normal 3.77-5.28 [facility] Comment on above: Performed By: #### L 500.4050, L501.2450, L100.0100 #### [facility] [address] [place], [address] WBC (Bld) [#/Vol] 6.2 10*3/uL Normal 3.4-10.8 [facility] Comment on above: Performed By: #### L 500.4050, L501.2450, L100.0100 #### [facility] [address] [place], [address] Absolute lymphocyte countOrd ered By: Epi Mcdoanld on 05-13-2025 Lymphocytes Auto (Unsp spec) [#/Vol] 2.24 10*3/uL 0.83-4.51 [facility] Absolute neutrophil countOrd ered By: Epi Mcdonald on 05-13-2025 Neutrophils (Bld) [#/Vol] 3.5 10*3/uL 2.0-7.7 [facility] Anion gap in Serum or Plasma Ordered By: Epi Mcdonald on 05-13-2025 Anion gap [Moles/Vol] 8 mmol/L 5-15 [facility] Automated lymphocyte count a s percentage of total leukocytesOrdered By: Epi Mcdonald on 05-13-2025 Lymphocytes/100 WBC Auto (Unsp spec) 35.4 % [facility] BUN/creatinine ratioOrdered By: Epi Mcdonald on 05-13-2025 Urea nitrogen/Creatinine [Mass ratio] 10.6 mg/mg - [facility] Basophil percentageOrdered B y: Epi Mcdonald on 05-13-2025 Basophils/100 WBC (Bld) 1.1 % High 0-1 [facility] Bilirubin, totalOrdered By: Epi Mcdonald on 05-13-2025 Bilirubin [Mass/Vol] 0.36 mg/dL 0.00-1.30 [facility] CBC W/Diff, Automatedon 04-18 Absolute Lymph 2.24 X10 3/uL Normal 0.83-4.51 [facility] Comment on above: Performed By: #### L 500.4050, L501.2450, L100.0100 #### [facility] [address] [place], [address] Absolute Neut 3.5 X10 3/uL Normal 2.0-7.7 [facility] Comment on above: Performed By: #### L 500.4050, L501.2450, L100.0100 #### [facility] [address] [place], [address] Basophils/100 WBC (Bld) 1.1 % High 0-1 [facility] Comment on above: Performed By: #### L 500.4050, L501.2450, L100.0100 #### [facility] [address] [place], [address] Eosinophils/100 WBC (Bld) 2.4 % Normal 0-5 [facility] Comment on above: Performed By: #### L 500.4050, L501.2450, L100.0100 #### [facility] [address] [place], [address] Erythrocyte distribution width (RBC) [Ratio] 12.3 % Normal 11.6-14.6 [facility] Comment on above: Performed By: #### L 500.4050, L501.2450, L100.0100 #### [facility] [address] [place], [address] Hematocrit (Bld) [Volume fraction] 43.9 % Normal 37-47 [facility] Comment on above: Performed By: #### L 500.4050, L501.2450, L100.0100 #### [facility] [address] [place], [address] Hemoglobin (Bld) [Mass/Vol] 14.8 g/dL Normal 12.0-15.0 [facility] Comment on above: Performed By: #### L 500.4050, L501.2450, L100.0100 #### [facility] [address] [place], [address] IG% 0.200 Normal 0.0-0.9 [facility] Comment on above: Result Comment: IG% - Immature Granulocytes (promyelocytes, myelocytes and metamyelocytes) > 1% indicates that a LEFT SHIFT is Present. Performed By: #### L 500.4050, L501.2450, L100.0100 #### [facility] [address] [place], [address] Lymphocytes/100 WBC (Bld) 35.4 % Normal 19-41 [facility] Comment on above: Performed By: #### L 500.4050, L501.2450, L100.0100 #### [facility] [address] [place], [address] MCH (RBC) [Entitic mass] 34.2 pg High 27.0-32.0 [facility] Comment on above: Performed By: #### L 500.4050, L501.2450, L100.0100 #### [facility] [address] [place], [address] MCHC (RBC) [Mass/Vol] 33.7 g/dL Normal 32-36 [facility] Comment on above: Performed By: #### L 500.4050, L501.2450, L100.0100 #### [facility] [address] [place], [address] MCV (RBC) [Entitic vol] 101.4 fL High 81-99 [facility] Comment on above: Performed By: #### L 500.4050, L501.2450, L100.0100 #### [facility] [address] [place], [address] Monocytes/100 WBC (Bld) 5.4 % Normal 0-10 [facility] Comment on above: Performed By: #### L 500.4050, L501.2450, L100.0100 #### [facility] [address] [place], [address] Neutrophils/100 WBC (Bld) 55.5 % Normal 47-70 [facility] Comment on above: Performed By: #### L 500.4050, L501.2450, L100.0100 #### [facility] [address] [place], [address] Nucleated RBC (Bld) [#/Vol] 0 10*3/uL Normal 0-5 [facility] Comment on above: Performed By: #### L 500.4050, L501.2450, L100.0100 #### [facility] [address] [place], [address] Platelet mean volume (Bld) [Entitic vol] 11.0 fL Normal 6.2-12.0 [facility] Comment on above: Performed By: #### L 500.4050, L501.2450, L100.0100 #### [facility] [address] [place], [address] Platelets (Bld) [#/Vol] 234 10*3/uL Normal 150-450 [facility] Comment on above: Performed By: #### L 500.4050, L501.2450, L100.0100 #### [facility] [address] [place], [address] RBC (Bld) [#/Vol] 4.33 10*6/uL Normal 4.2-5.4 [facility] Comment on above: Performed By: #### L 500.4050, L501.2450, L100.0100 #### [facility] [address] [place], [address] RDW SD 46.7 fl High 35.1-43.9 [facility] Comment on above: Performed By: #### L 500.4050, L501.2450, L100.0100 #### [facility] [address] [place], [address] WBC (Bld) [#/Vol] 6.3 10*3/uL Normal 4.4-11.0 [facility] Comment on above: Performed By: #### L 500.4050, L501.2450, L100.0100 #### [facility] [address] [place], [address] Carbon dioxide, total [Moles /volume] in Central venous bloodOrdered By: Epi Mcdonald on 05-13-2025 CO2 [Moles/Vol] 27.7 mmol/L 21.0-32.0 [facility] Chloride assayOrdered By: Sue Mcdonald on 05-13-2025 Chloride [Moles/Vol] 105 mmol/L 98-108 [facility] Cholesterolon 05-13-2025 Cholesterol [Mass/Vol] 144 mg/dL Normal <=200 [facility] Comment on above: Result Comment: Chol esterol level, Desirable <200 mg/dL Borderline high cholesterol 200-239 mg/dL High cholesterol >=240 mg/dL Recommendations of the NCEP Adult Treatment Panel for the following risk-cutoff thresholds for the [place] population. Performed By: #### L 500.4050, L501.2450, L100.0100 #### [facility] [address] [place], [address] Comprehensive Metabolic [facility] ilon 05-13-2025 Albumin [Mass/Vol] 4.3 g/dL Normal 3.5-5.0 [facility] Comment on above: Performed By: #### L 500.4050, L501.2450, L100.0100 #### [facility] [address] [place], [address] Albumin/Globulin [Mass ratio] 1.5 {ratio} Normal 0.9-2.4 [facility] Comment on above: Performed By: #### L 500.4050, L501.2450, L100.0100 #### [facility] [address] [place], [address] ALK PHOS 76 U/L Normal 35-104 [facility] Comment on above: Performed By: #### L 500.4050, L501.2450, L100.0100 #### [facility] [address] [place], [address] ALT [Catalytic activity/Vol] 11 U/L Normal <=34 [facility] Comment on above: Performed By: #### L 500.4050, L501.2450, L100.0100 #### [facility] [address] [place], [address] AST [Catalytic activity/Vol] 22 U/L Normal <=31 [facility] Comment on above: Performed By: #### L 500.4050,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 Triglycerides Reference Interval Normal <150 mg/dL Borderline high 150 - 199 mg/dL High 200 - 499 mg/dL Very High > or = 500 mg/dL Blood erythrocytes count (nu mber/volume)on 01-26-2022 RBC (Bld) [#/Vol] 3.86 10*6/uL 4.2-5.4 [facility] Work Phone: Blood hemoglobin measurement (mass/volume)on 01-26-2022 Hemoglobin (Bld) [Mass/Vol] 13.6 g/dL 12.0-15.0 [facility] Work Phone: Blood lymphocytes/100 leukoc yteson 01-26-2022 Lymphocytes/100 WBC (Bld) 36.6 % 19-41 [facility] Work Phone: Blood monocytes/100 leukocyt eson 01-26-2022 Monocytes/100 WBC (Bld) 5.5 % 0-10 [facility] Work Phone: Blood platelet mean volumeon 01-26-2022 Platelet mean volume (Bld) [Entitic vol] 11.2 fL 6.2-12.0 [facility] Work Phone: Determination of erythrocyte mean corpuscular volume (MCV)on 01-26-2022 MCV (RBC) [Entitic vol] 104.9 fL 81-99 [facility] Work Phone: [phone] Hematocrit Auto (Bld) [Volum e fraction]on 01-26-2022 Hematocrit (Bld) [Volume fraction] 40.5 % 37-47 [facility] Work Phone: [phone] Laboratory - Chemistry and C hemistry - challengeon 01-26-2022 ALP [Catalytic activity/Vol] 58 U/L 45-117 [facility] Work Phone: [phone] ALT [Catalytic activity/Vol] 18 U/L 13-56 [facility] Work Phone: [phone] CO2 [Moles/Vol] 28.0 mmol/L 21.0-32.0 [facility] Work Phone: [phone] Globulin (S) [Mass/Vol] 3.5 g/dL 2.2-4.2 [facility] Work Phone: [phone] Urea nitrogen/Creatinine [Mass ratio] 10.0 mg/mg 10-20 [facility] Work Phone: [phone] Laboratory - Hematology and Cell countson 01-26-2022 Erythrocyte distribution width (RBC) [Entitic vol] 49.5 fL 35.1-43.9 [facility] Work Phone: [phone] Erythrocyte distribution width (RBC) [Ratio] 12.8 % 11.6-14.6 [facility] Work Phone: [phone] Immature granulocytes/100 WBC (Bld) 0.300 % 0.0-0.9 [facility] Work Phone: Comment on above: IG% - Immature Granu locytes (promyelocytes, myelocytes and metamyelocytes) > 1% indicates that a LEFT SHIFT is Present. MCH (RBC) [Entitic mass] 35.2 pg 27.0-32.0 [facility] Work Phone: [phone] Nucleated RBC/100 WBC (Bld) [Ratio] 0 % 0-5 [facility] Work Phone: MCHC Auto (RBC) [Mass/Vol]on 01-26-2022 MCHC (RBC) [Mass/Vol] 33.6 g/dL 32-36 [facility] Work Phone: Neisseria gonorrhoeae detect ion by PCRon 01-26-2022 N. gonorrhoeae DNA TESHA+probe Ql (Cervical mucus) Negative Negative [facility] Work Phone: No Panel Informationon 01-26 Hepatitis C Antibody Non-Reactive Nonreactive W [facility] Work Phone: Comment on above: Non Reactive: < 0.8 Equivocal: >/= 0.8 to < 1.0 Reactive: >/= 1.0The CDC recommends that a reactive/equivocal HCV antibody result be followed up by the HCV Nucleic Acid Amplificationtest (629234) HIV-1 RNA Ultraquantitative (PCR) < 20 copies/mL . [facility] Work Phone: Comment on above: HIV-1 RNA not detect edThe reportable range for this assay is 20 to 10,000,000copies HIV-1 RNA/mL. Miscellaneous Test See comment [facility] Work Phone: Comment on above: TEST RESULT LIMITST- Cell Activation, CD8 SubsetsAbsolute CD 3 2101 /uL 622-2402% CD 3 Pos. Lymph. 80.8 % 57.5-86.2Absolute CD 4 [place] 1404 /uL 359-1519% CD 4 Pos. Lymph. 54.0 % 30.8-58.5Absolute CD 8 (Supp) 681 /uL 109-897% CD 8 Pos. Lymph. 26.2 % 12.0-35.5CD4/CD8 Ratio 2.06 0.92-3.72Abs.CD8+HLA-DR+Lymph 94 /uL 0-117This test was developed and its performance characteristicsdetermined by [employer]. It has not been cleared or approvedby the Food and Drug Administration.% CD8+HLA-DR+ Lymphs 3.6 % 0.0-4.9This test was developed and its performance characteristicsdetermined by [employer]). It has not been cleared or approvedby the Food and Drug Administration.% CD3+CD25+ Lymphs 37.3 High % 4.9-25.9This test was developed and its performance characteristicsdetermined by [employer]). It has not been cleared or approvedby the Food and Drug Administration.Abs.CD3+CD25+ Lymphs 970 High /uL 79-535This test was developed and its performance characteristicsdetermined by [facility]. It has not been cleared or approvedby the Food and Drug Administration.% CD8+CD38+ Lymphs 4.7 % 0.0-17.7This test was developed and its performance characteristicsdetermined by [employer]). It has not been cleared or approvedby the Food and Drug Administration.Abs.CD8+CD38+ Lymphs 122 /uL 0-381This test was developed and its performance characteristicsdetermined by [employer]). It has not been cleared or approvedby the Food and Drug Administration.WBC 6.9 x10E3/uL 3.4-10.8RBC 3.99 x10E6/uL 3.77-5.28Hemoglobin 13.6 g/dL 11.1-15.9Hematocrit 41.8 % 34.0-46.6MCV 105 High fL 79-97MCH 34.1 High pg 26.6-33.0MCHC 32.5 g/dL 31.5-35.7RDW 12.4 % 11.7-15.4Platelets 222 x10E3/uL 150-450Neutrophils 53 % Not Estab.Lymphs 37 % Not Estab.Monocytes 6 % Not Estab.Eos 3 % Not Estab.Basos 1 % Not Estab.Neutrophils (Absolute) 3.7 x10E3/uL 1.4-7.0Lymphs (Absolute) 2.6 x10E3/uL 0.7-3.1Monocytes(Absolute) 0.4 x10E3/uL 0.1-0.9Eos (Absolute) 0.2 x10E3/uL 0.0-0.4Baso (Absolute) 0.1 x10E3/uL 0.0-0.2Immature Granulocytes 0 % Not Estab.Immature Grans (Abs) 0.0 x10E3/uL 0.0-0.1 TESTING PERFORMED AT [facility]. ORIGINAL REPORT ON FILE IN LAB CONTAINS ADDITIONAL TEST SITE INFORMATION. Estimated GFR (MDRD) Amer 74 mL/min >60 [facility] Work Phone: Comment on above: GFR Calc Estimated GFR (MDRD) Non-Af Amer 62 mL/min >60 [facility] Work Phone: Comment on above: Non- GFR Calc Plasma HIV 1 RNA viral load by probe and target amplification method (log number/voluon 01-26-2022 HIV 1 RNA TESHA+probe [Log #/Vol] TNP [facility] Work Phone: Comment on above: Test not performedRe sult Units: [id number]/mLUnable to calculate result since non-numeric resultobtained for component test.Performed at: [address] [id number] Director: Trevin Anguiano MD, Phone: [phone] Platelets bldon 01-26-2022 Platelets (Bld) [#/Vol] 213 10*3/uL 150-450 [facility] Work Phone: Serum Treponema species anti body detectionon 01-26-2022 Treponema sp Ab Ql (S) Non-Reactive [facility] Work Phone: Serum or plasma albumin hortensia urement (mass/volume)on 01-26-2022 Albumin [Mass/Vol] 3.6 g/dL 3.2-5.0 [facility] Work Phone: Serum or plasma albumin/glob ulin mass ratioon 01-26-2022 Albumin/Globulin [Mass ratio] 1.0 {ratio} 0.9-2.4 [facility] Work Phone: Serum or plasma calcium hortensia urement (mass/volume)on 01-26-2022 Calcium [Mass/Vol] 8.8 mg/dL 8.5-10.1 [facility] Work Phone: Serum or plasma cholesterol in HDL measurement (mass/volume)on 01-26-2022 Cholesterol in HDL [Mass/Vol] 59 mg/dL >40 [facility] Work Phone: Comment on above: The drugs N-Acetylcy steine and Metamizole may falsely depress this assay. Reference Range HDL <40 mg/dL Low HDL Cholesterol HDL >or= 60 mg/dL High HDL Cholesterol Serum or plasma cholesterol in VLDL measurement (mass/volume)on 01-26-2022 Cholesterol in VLDL [Mass/Vol] 22 mg/dL 5-40 [facility] Work Phone: Serum or plasma creatinine m easurement (mass/volume)on 01-26-2022 Creatinine [Mass/Vol] 1.00 mg/dL 0.55-1.02 [facility] Work Phone: Comment on above: The validity of the calculated GFR & GFRAA in patients over 70 years has not been determined. Clinical correlation is essential. Serum or plasma low density lipoprotein (LDL) cholesterol measurement (mass/volume)on 01-26-2022 Cholesterol in LDL [Mass/Vol] 56 mg/dL 0-130 [facility] Work Phone: Serum or plasma urea nitroge n measurement (mass/volume)on 01-26-2022 Urea nitrogen [Mass/Vol] 10 mg/dL 7-18 [facility] Work Phone: Thin prep Papanicolaou smear with manual screeningon 01-26-2022 Thin prep Papanicolaou smear with manual screening 16 U/L 15-37 [facility] Work Phone: Thin prep Papanicolaou smear with manual screening 5 5-15 [facility] Work Phone: XR CHEST 2V FRONTAL/LATon [facility] XR Chest PA and Lateralon IMPRESSION: No acute radiographic abnormality. Supervisor Mapping: REJI Transcribe Date/Time: Jan 26 2022 12:04P Dictated by : KENDELL GREY MD This examination was interpreted and the report reviewed and electronically signed by: KENDELL GREY MD on Jan 26 2022 12:05PM EST ZZZ_DO_NOT _USE_DIVIS ION OF RADIOLOGY * * *Final Report* * * DATE OF EXAM: Jan 26 2022 11:30AM [id number] - XR CHEST 2V FRONTAL/LAT / PROCEDURE REASON: Acute cough * * * * Physician Interpretation * * * * EXAMINATION: CHEST RADIOGRAPH (2 VIEW FRONTAL & LATERAL) CLINICAL HISTORY: Acute cough MQ: XC2_6 EXAM DATE/TIME: 01/26/2022 11:30 AM COMPARISON: 05/02/2019 RESULT: Lines, tubes, and devices: None. Lungs and pleura: No consolidation. No lung mass. No pleural effusion. No pneumothorax. No persistent significant atelectasis Cardiomediastinal silhouette: Normal cardiomediastinal silhouette. Bones and soft tissues: Unremarkable. ZZZ_DO_NOT _USE_DIVIS ION OF RADIOLOGY Provider, Ryan Perera - 01/26/2022 * * *Final Report* * * DATE OF EXAM: Jan 26 2022 11:30AM [id number] - XR CHEST 2V FRONTAL/LAT / PROCEDURE REASON: Acute cough * * * * Physician Interpretation * * * * EXAMINATION: CHEST RADIOGRAPH (2 VIEW FRONTAL & LATERAL) CLINICAL HISTORY: Acute cough MQ: XC2_6 EXAM DATE/TIME: 01/26/2022 11:30 AM COMPARISON: 05/02/2019 RESULT: Lines, tubes, and devices: None. Lungs and pleura: No consolidation. No lung mass. No pleural effusion. No pneumothorax. No persistent significant atelectasis Cardiomediastinal silhouette: Normal cardiomediastinal silhouette. Bones and soft tissues: Unremarkable. IMPRESSION IMPRESSION: No acute radiographic abnormality. Supervisor Mapping: [facility] Transcribe Date/Time: Jan 26 2022 12:04P Dictated by : KENDELL GREY MD This examination was interpreted and the report reviewed and electronically signed by: KENDELL GREY MD on Jan 26 2022 12:05PM EST [facility] Radiology Study observation (narrative) [facility] XR Chest PA and LateralOrder ed By: [facility] Provider on 01-26-2022 [facility] Vital Signs Date Time Vital Sign Value Performing Clinician Coco house 05-13-2025 10:43-0400 Body height 157.[address] Fina Iraheta MD Work Phone: [facility] 05-13-2025 10:43-0400 Body mass index (BMI) [Ratio] 22.3 kg/m2 Dr. Fina Iraheta MD Work Phone: [facility] 05-13-2025 10:43-0400 Body temperature 98 [degF] Dr. Fina Iraheta MD Work Phone: [facility] 05-13-2025 10:43-0400 Body weight 55.[address] Fina Iraheta MD Work Phone: [facility] 05-13-2025 10:43-0400 Diastolic blood pressure 54 mm[Hg] Dr. Fina Iraheta MD Work Phone: [facility] 05-13-2025 10:43-0400 Heart rate 80 /min Dr. Fina Iraheta MD Work Phone: [facility] 05-13-2025 10:43-0400 Respiratory rate 18 /min Dr. iFna Iraheta MD Work Phone: [facility] 05-13-2025 10:43-0400 SaO2% (BldA) [Mass fraction] 97 % Dr. Fina Iraheta MD Work Phone: [facility] 05-13-2025 10:43-0400 Systolic blood pressure 102 mm[Hg] Dr. Fina Iraheta MD Work Phone: [facility] 05-02-2025 09:59-0400 Body mass index (BMI) [Ratio] 22.2 kg/m2 Dr. Fina Iraheta MD Work Phone: [facility] 05-02-2025 09:59-0400 Body temperature 97.5 [degF] Dr. Fina Iraheta MD Work Phone: [facility] 05-02-2025 09:59-0400 Body weight 55.[address] Fina Iraheta MD Work Phone: [facility] 05-02-2025 09:59-0400 Diastolic blood pressure 83 mm[Hg] Dr. Fina Iraheta MD Work Phone: [facility] 05-02-2025 09:59-0400 Heart rate 67 /min Dr. Fina Iraheta MD Work Phone: [facility] 05-02-2025 09:59-0400 Respiratory rate 18 /min Dr. Fina Iraheta MD Work Phone: [facility] 05-02-2025 09:59-0400 SaO2% (BldA) [Mass fraction] 96 % Dr. Fina Iraheta MD Work Phone: [facility] 05-02-2025 09:59-0400 Systolic blood pressure 116 mm[Hg] Dr. Fina Iraheta MD Work Phone: [facility] 03-15-2025 20:08-0400 Body temperature 98 [degF] Dr. Fina Iraheta MD Work Phone: [facility] 03-15-2025 20:08-0400 Diastolic blood pressure 80 mm[Hg] Dr. Fina Iraheta MD Work Phone: [facility] 03-15-2025 20:08-0400 Heart rate 76 /min Dr. Fina Iraheta MD Work Phone: [facility] 03-15-2025 20:08-0400 Respiratory rate 18 /min Dr. Fina Iraheta MD Work Phone: [facility] 03-15-2025 20:08-0400 SaO2% (BldA) [Mass fraction] 96 % Dr. Fina Iraheta MD Work Phone: [facility] 03-15-2025 20:08-0400 Systolic blood pressure 118 mm[Hg] Dr. Fina Iraheta MD Work Phone: [facility] 03-15-2025 17:06-0400 Body height 157.[address] Fina Iraheta MD Work Phone: [facility] 03-15-2025 17:06-0400 Body mass index (BMI) [Ratio] 22.4 kg/m2 Dr. Fina Iraheta MD Work Phone: [facility] 03-15-2025 17:06-0400 Body weight 55.[address] Fina Iraheta MD Work Phone: [facility] 03-15-2025 15:40-0400 Body height 157.[address] Fina Iraheta MD Work Phone: [facility] 03-15-2025 15:40-0400 Body mass index (BMI) [Ratio] 22.4 kg/m2 Dr. Fina Iraheta MD Work Phone: [facility] 03-15-2025 15:40-0400 Body temperature 98.2 [degF] Dr. Fina Iraheta MD Work Phone: [facility] 03-15-2025 15:40-0400 Body weight 55.[address] Fina Iraheta MD Work Phone: [facility] 03-15-2025 15:40-0400 Diastolic blood pressure 93 mm[Hg] Dr. Fina Iraheta MD Work Phone: [facility] 03-15-2025 15:40-0400 Heart rate 86 /min Dr. Fina Iraheta MD Work Phone: [facility] 03-15-2025 15:40-0400 Respiratory rate 16 /min Dr. Fina Iraheta MD Work Phone: [facility] 03-15-2025 15:40-0400 SaO2% (BldA) [Mass fraction] 100 % Dr. Fina Iraheta MD Work Phone: [facility] 03-15-2025 15:40-0400 Systolic blood pressure 117 mm[Hg] Dr. Fina Iraheta MD Work Phone: [facility] 03-15-2025 14:56-0400 Body mass index (BMI) [Ratio] 22.7 kg/m2 Rubina Campos MD Work Phone: [facility] 03-15-2025 14:56-0400 Body temperature 98.91 [degF] Rubina Campos MD Work Phone: [facility] 03-15-2025 14:56-0400 Body weight 56.3 kg Rubina Campos MD Work Phone: [facility] 03-15-2025 14:56-0400 Diastolic blood pressure 70 mm[Hg] Rubina Campos MD Work Phone: [facility] 03-15-2025 14:56-0400 Heart rate 94 /min Rubina Campos MD Work Phone: [facility] 03-15-2025 14:56-0400 Respiratory rate 16 /min Rubina Campos MD Work Phone: [facility] 03-15-2025 14:56-0400 SaO2% (BldA) [Mass fraction] 98 % Rubina Campos MD Work Phone: [facility] 03-15-2025 14:56-0400 Systolic blood pressure 118 mm[Hg] Rubina Campos MD Work Phone: [facility] 03-08-2025 13:28-0400 Body height 157.[address] Fina Iraheta MD Work Phone: [facility] 03-08-2025 13:28-0400 Body mass index (BMI) [Ratio] 22.8 kg/m2 Dr. Fina Iraheta MD Work Phone: [facility] 03-08-2025 13:28-0400 Body temperature 97.7 [degF] Dr. Fina Iraheta MD Work Phone: [facility] 03-08-2025 13:28-0400 Body weight 56.[address] Fina Iraheta MD Work Phone: [facility] 03-08-2025 13:28-0400 Diastolic blood pressure 84 mm[Hg] Dr. Fina Iraheta MD Work Phone: [facility] 03-08-2025 13:28-0400 Heart rate 64 /min Dr. Fina Iraheta MD Work Phone: [facility] 03-08-2025 13:28-0400 Respiratory rate 18 /min Dr. Fina Iraheta MD Work Phone: [facility] 03-08-2025 13:28-0400 SaO2% (BldA) [Mass fraction] 99 % Dr. Fina Iraheta MD Work Phone: [facility] 03-08-2025 13:28-0400 Systolic blood pressure 132 mm[Hg] Dr. Fina Iraheta MD Work Phone: [facility] 03-08-2025 11:30-0400 Body temperature 98 [degF] Dr. Fina Iraheta MD Work Phone: [facility] 03-08-2025 11:30-0400 Diastolic blood pressure 79 mm[Hg] Dr. Fina Iraheta MD Work Phone: [facility] 03-08-2025 11:30-0400 Heart rate 60 /min Dr. Fina Iraheta MD Work Phone: [facility] 03-08-2025 11:30-0400 Respiratory rate 16 /min Dr. Fina Iraheta MD Work Phone: [facility] 03-08-2025 11:30-0400 SaO2% (BldA) [Mass fraction] 100 % Dr. Fina Iraheta MD Work Phone: [facility] 03-08-2025 11:30-0400 Systolic blood pressure 141 mm[Hg] Dr. Fina Iraheta MD Work Phone: [facility] 03-08-2025 08:41-0400 Body height 157.[address] Fina Iraheta MD Work Phone: [facility] 03-08-2025 08:41-0400 Body mass index (BMI) [Ratio] 22.4 kg/m2 Dr. Fina Iraheta MD Work Phone: [facility] 03-08-2025 08:41-0400 Body weight 55.[address] Fina Iraheta MD Work Phone: [facility] 03-08-2025 08:16-0400 Body mass index (BMI) [Ratio] 22.57 kg/m2 Ginny Swank PHOTOGRAPHY PROFESSOR.NURSING TEACHER Work Phone: [facility] 03-08-2025 08:16-0400 Body temperature 96.69 [degF] Ginny Swank PHOTOGRAPHY PROFESSOR.NURSING TEACHER Work Phone: [facility] 03-08-2025 08:16-0400 Body weight 56 kg Ginny Swank PHOTOGRAPHY PROFESSOR.NURSING TEACHER Work Phone: [facility] 03-08-2025 08:16-0400 Diastolic blood pressure 87 mm[Hg] Ginny Swank PHOTOGRAPHY PROFESSOR.NURSING TEACHER Work Phone: [facility] 03-08-2025 08:16-0400 Heart rate 63 /min Ginny Swank PHOTOGRAPHY PROFESSOR.NURSING TEACHER Work Phone: [facility] 03-08-2025 08:16-0400 Respiratory rate 22 /min Ginny Swank PHOTOGRAPHY PROFESSOR.NURSING TEACHER Work Phone: [facility] 03-08-2025 08:16-0400 SaO2% (BldA) [Mass fraction] 99 % Ginny Swank PHOTOGRAPHY PROFESSOR.NURSING TEACHER Work Phone: [facility] 03-08-2025 08:16-0400 Systolic blood pressure 121 mm[Hg] Ginny Swank PHOTOGRAPHY PROFESSOR.NURSING TEACHER Work Phone: [facility] 02-15-2025 10:24-0400 Body height 157.[address] Fina Iraheta MD Work Phone: [facility] 02-15-2025 10:24-0400 Body mass index (BMI) [Ratio] 22.4 kg/m2 Dr. Fina Iraheta MD Work Phone: [facility] 02-15-2025 10:24-0400 Body temperature 97.5 [degF] Dr. Fina Iraheta MD Work Phone: [facility] 02-15-2025 10:24-0400 Body weight 55.[address] Fina Iraheta MD Work Phone: [facility] 02-15-2025 10:24-0400 Diastolic blood pressure 60 mm[Hg] Dr. Fina Iraheta MD Work Phone: [facility] 02-15-2025 10:24-0400 Heart rate 92 /min Dr. Fina Iraheta MD Work Phone: [facility] 02-15-2025 10:24-0400 Respiratory rate 16 /min Dr. Fina Iraheta MD Work Phone: [facility] 02-15-2025 10:24-0400 SaO2% (BldA) [Mass fraction] 91 % Dr. Fina Iraheta MD Work Phone: [facility] 02-15-2025 10:24-0400 Systolic blood pressure 120 mm[Hg] Dr. Fina Iraheta MD Work Phone: [facility] 02-07-2025 12:29-0400 Body height 157.[address] Fina Iraheta MD Work Phone: [facility] 02-07-2025 12:00-0400 Body temperature 97 [degF] Dr. Fina Iraheta MD Work Phone: [facility] 02-07-2025 12:00-0400 Diastolic blood pressure 83 mm[Hg] Dr. Fina Iraheta MD Work Phone: [facility] 02-07-2025 12:00-0400 Heart rate 90 /min Dr. Fina Iraheta MD Work Phone: [facility] 02-07-2025 12:00-0400 Respiratory rate 18 /min Dr. Fina Iraheta MD Work Phone: [facility] 02-07-2025 12:00-0400 SaO2% (BldA) [Mass fraction] 99 % Dr. Fina Iraheta MD Work Phone: [facility] 02-07-2025 12:00-0400 Systolic blood pressure 114 mm[Hg] Dr. Fina Iraheta MD Work Phone: [facility] 02-07-2025 11:10-0400 Body height 157.[address] Fina Iraheta MD Work Phone: [facility] 02-07-2025 11:10-0400 Body mass index (BMI) [Ratio] 22.3 kg/m2 Dr. Fina Iraheta MD Work Phone: [facility] 02-07-2025 11:10-0400 Body weight 55.[address] Fina Iraheta MD Work Phone: [facility] 12-28-2024 12:28-0400 Body mass index (BMI) [Ratio] 21.85 kg/m2 Chantel Pablo PHOTOGRAPHY PROFESSOR.NURSING TEACHER Work Phone: [facility] 12-28-2024 12:28-0400 Body temperature 97.39 [degF] Chantel Pablo PHOTOGRAPHY PROFESSOR.NURSING TEACHER Work Phone: [facility] 12-28-2024 12:28-0400 Body weight 54.2 kg Chantel Shah PHOTOGRAPHY PROFESSOR.NURSING TEACHER Work Phone: [facility] 12-28-2024 12:28-0400 Diastolic blood pressure 86 mm[Hg] Chantel Pablo PHOTOGRAPHY PROFESSOR.NURSING TEACHER Work Phone: [facility] 12-28-2024 12:28-0400 Heart rate 85 /min Chantel Shah PHOTOGRAPHY PROFESSOR.NURSING TEACHER Work Phone: [facility] 12-28-2024 12:28-0400 Respiratory rate 18 /min Chantel Shah PHOTOGRAPHY PROFESSOR.NURSING TEACHER Work Phone: [facility] 12-28-2024 12:28-0400 SaO2% (BldA) [Mass fraction] 100 % Chantel Shah PHOTOGRAPHY PROFESSOR.NURSING TEACHER Work Phone: [facility] 12-28-2024 12:28-0400 Systolic blood pressure 115 mm[Hg] Chantel Shah PHOTOGRAPHY PROFESSOR.NURSING TEACHER Work Phone: [facility] 12-13-2024 09:54-0400 Body mass index (BMI) [Ratio] 21.77 kg/m2 Meagan Jeterler-Stanley PHOTOGRAPHY PROFESSOR.NURSING TEACHER Work Phone: [facility] 12-13-2024 09:54-0400 Body temperature 97.5 [degF] Meagan Praisler-Wood PHOTOGRAPHY PROFESSOR.NURSING TEACHER Work Phone: [facility] 12-13-2024 09:54-0400 Body weight 54 kg Meagan Praisler-Wood PHOTOGRAPHY PROFESSOR.NURSING TEACHER Work Phone: [facility] 12-13-2024 09:54-0400 Diastolic blood pressure 79 mm[Hg] Meagan Praisler-Wood PHOTOGRAPHY PROFESSOR.NURSING TEACHER Work Phone: [facility] 12-13-2024 09:54-0400 Heart rate 99 /min Meagan Praisler-Wood PHOTOGRAPHY PROFESSOR.NURSING TEACHER Work Phone: [facility] 12-13-2024 09:54-0400 Respiratory rate 22 /min Meagan Praisler-Wood PHOTOGRAPHY PROFESSOR.NURSING TEACHER Work Phone: [facility] 12-13-2024 09:54-0400 SaO2% (BldA) [Mass fraction] 97 % Meagan Praisler-Wood PHOTOGRAPHY PROFESSOR.NURSING TEACHER Work Phone: [facility] 12-13-2024 09:54-0400 Systolic blood pressure 108 mm[Hg] Meagan Praisler-Wood PHOTOGRAPHY PROFESSOR.NURSING TEACHER Work Phone: [facility] 12-04-2024 08:52-0400 Body mass index (BMI) [Ratio] 22.09 kg/m2 Krislyn Aberegg PA Work Phone: [facility] 12-04-2024 08:52-0400 Body temperature 97 [degF] Krislyn Aberegg PA Work Phone: [facility] 12-04-2024 08:52-0400 Body weight 54.8 kg Krislyn Aberegg PA Work Phone: [facility] 12-04-2024 08:52-0400 Diastolic blood pressure 62 mm[Hg] Krislyn Aberegg PA Work Phone: [facility] 12-04-2024 08:52-0400 Heart rate 90 /min Krislyn Aberegg PA Work Phone: [facility] 12-04-2024 08:52-0400 Respiratory rate 16 /min Krislyn Aberegg PA Work Phone: [facility] 12-04-2024 08:52-0400 SaO2% (BldA) [Mass fraction] 97 % Krislyn Aberegg PA Work Phone: [facility] 12-04-2024 08:52-0400 Systolic blood pressure 106 mm[Hg] Louie MANNING Work Phone: [facility] 11-28-2024 15:07-0400 Body height 157.[address] Hung Cai MD Work Phone: [facility] 11-28-2024 15:07-0400 Body mass index (BMI) [Ratio] 22.1 kg/m2 Dr. Hung Cai MD Work Phone: 9(841)154-468736 [place] [address] 11-28-2024 15:07-0400 Body temperature 98.9 [degF] Dr. Hung Cai MD Work Phone: 9(026)437-691623 [place] [address] 11-28-2024 15:07-0400 Body weight 54.[address] Hung Cai MD Work Phone: 3(001)306-656482 [address] 11-28-2024 15:07-0400 Diastolic blood pressure 72 mm[Hg] Dr. Hung Cai MD Work Phone: 2(097)917-651482 [address] 11-28-2024 15:07-0400 Heart rate 92 /min Dr. Hung Cai MD Work Phone: 6(495)469-682123 [place] [address] 11-28-2024 15:07-0400 Respiratory rate 16 /min Dr. Hung Cai MD Work Phone: 4(723)575-695082 [address] 11-28-2024 15:07-0400 SaO2% (BldA) [Mass fraction] 98 % Dr. Hung Cai MD Work Phone: 5(215)547-077636 [place] [address] 11-28-2024 15:07-0400 Systolic blood pressure 124 mm[Hg] Dr. Hung Cai MD Work Phone: 4(309)896-842523 [place] [address] 11-26-2024 10:49-0400 Body temperature 97.8 [degF] Dr. Hung Cai MD Work Phone: 5(072)881-657936 [place] [address] 11-26-2024 10:49-0400 Diastolic blood pressure 68 mm[Hg] Dr. Hung Cai MD Work Phone: 6(813)140-970036 [place] [address] 11-26-2024 10:49-0400 Heart rate 68 /min Dr. Hung Cai MD Work Phone: [facility] 11-26-2024 10:49-0400 Respiratory rate 15 /min Dr. Hung Cai MD Work Phone: [facility] 11-26-2024 10:49-0400 SaO2% (BldA) [Mass fraction] 99 % Dr. Hung Cai MD Work Phone: 6(200)600-733336 [place] [address] 11-26-2024 10:49-0400 Systolic blood pressure 94 mm[Hg] Dr. Hung Cai MD Work Phone: 9(573)059-843782 [address] 11-26-2024 07:02-0400 Body height 157.[address] Hung Cai MD Work Phone: 5(148)541-949023 [place] [address] 11-26-2024 07:02-0400 Body mass index (BMI) [Ratio] 22.1 kg/m2 Dr. Hung Cai MD Work Phone: [facility] 11-26-2024 07:02-0400 Body weight 54.[address] Hung Cai MD Work Phone: [facility] 11-07-2024 10:37-0400 Body mass index (BMI) [Ratio] 22.13 kg/m2 Julieta Moomaw PHOTOGRAPHY PROFESSOR.NURSING TEACHER Work Phone: [facility] 11-07-2024 10:37-0400 Body temperature 98.2 [degF] Julieta Moomaw PHOTOGRAPHY PROFESSOR.NURSING TEACHER Work Phone: [facility] 11-07-2024 10:37-0400 Body weight 54.9 kg Julieta Moomaw PHOTOGRAPHY PROFESSOR.NURSING TEACHER Work Phone: [facility] 11-07-2024 10:37-0400 Diastolic blood pressure 64 mm[Hg] Julieta Moomaw PHOTOGRAPHY PROFESSOR.NURSING TEACHER Work Phone: [facility] 11-07-2024 10:37-0400 Heart rate 82 /min Julieta Moomaw PHOTOGRAPHY PROFESSOR.NURSING TEACHER Work Phone: [facility] 11-07-2024 10:37-0400 Respiratory rate 16 /min Julieta Moomaw PHOTOGRAPHY PROFESSOR.NURSING TEACHER Work Phone: [facility] 11-07-2024 10:37-0400 SaO2% (BldA) [Mass fraction] 99 % Julieta Moomaw PHOTOGRAPHY PROFESSOR.NURSING TEACHER Work Phone: [facility] 11-07-2024 10:37-0400 Systolic blood pressure 110 mm[Hg] Julieta Moomaw PHOTOGRAPHY PROFESSOR.NURSING TEACHER Work Phone: [facility] 10-04-2024 13:02-0400 Body height 157.[address] Hung Cai MD Work Phone: 2(897)192-985036 [place] [address] 10-04-2024 13:02-0400 Body mass index (BMI) [Ratio] 22.1 kg/m2 Dr. Hung Cai MD Work Phone: 4(244)133-493236 [place] [address] 10-04-2024 13:02-0400 Body temperature 97.1 [degF] Dr. Hung Cai MD Work Phone: 4(769)519-962136 [place] [address] 10-04-2024 13:02-0400 Body weight 54.[address] Hung Cai MD Work Phone: 0(001)130-304736 [place] [address] 10-04-2024 13:02-0400 Diastolic blood pressure 84 mm[Hg] Dr. Hung Cai MD Work Phone: 6(558)455-188636 [place] [address] 10-04-2024 13:02-0400 Heart rate 76 /min Dr. Hung Cai MD Work Phone: 7(157)853-958336 [place] [address] 10-04-2024 13:02-0400 Respiratory rate 16 /min Dr. Hung Cai MD Work Phone: 8(404)773-930636 [place] [address] 10-04-2024 13:02-0400 SaO2% (BldA) [Mass fraction] 97 % Dr. Hung Cai MD Work Phone: [facility] 10-04-2024 13:02-0400 Systolic blood pressure 132 mm[Hg] Dr. Hung Cai MD Work Phone: [facility] 09-27-2024 13:06-0400 Body mass index (BMI) [Ratio] 22.17 kg/m2 Krislyn Aberegg PA Work Phone: [facility] 09-27-2024 13:06-0400 Body temperature 97.39 [degF] Krislyn Aberegg PA Work Phone: [facility] 09-27-2024 13:06-0400 Body weight 55 kg Krislyn Aberegg PA Work Phone: [facility] 09-27-2024 13:06-0400 Diastolic blood pressure 88 mm[Hg] Krislyn Aberegg PA Work Phone: [facility] 09-27-2024 13:06-0400 Heart rate 69 /min Krislyn Aberegg PA Work Phone: [facility] 09-27-2024 13:06-0400 Respiratory rate 20 /min Krislyn Aberegg PA Work Phone: [facility] 09-27-2024 13:06-0400 SaO2% (BldA) [Mass fraction] 99 % Krislyn Aberegg PA Work Phone: [facility] 09-27-2024 13:06-0400 Systolic blood pressure 124 mm[Hg] Krislyn Aberegg PA Work Phone: [facility] 09-25-2024 21:49-0400 Body temperature 98.2 [degF] Dr. Hung Cai MD Work Phone: [facility] 09-25-2024 21:49-0400 Diastolic blood pressure 89 mm[Hg] Dr. Hung Cai MD Work Phone: [facility] 09-25-2024 21:49-0400 Heart rate 75 /min Dr. Hung Cai MD Work Phone: [facility] 09-25-2024 21:49-0400 Respiratory rate 18 /min Dr. Hung Cai MD Work Phone: 7(606)598-260823 [place] [address] 09-25-2024 21:49-0400 SaO2% (BldA) [Mass fraction] 98 % Dr. Hung Cai MD Work Phone: 4(699)097-689923 [place] [address] 09-25-2024 21:49-0400 Systolic blood pressure 114 mm[Hg] Dr. Hung Cai MD Work Phone: 6(947)640-340923 [place] [address] 09-25-2024 16:41-0400 Body height 157.[address] Hung Cai MD Work Phone: 8(010)254-070723 [place] [address] 09-25-2024 16:41-0400 Body mass index (BMI) [Ratio] 22.1 kg/m2 Dr. Hung Cai MD Work Phone: 2(659)788-127023 [place] [address] 09-25-2024 16:41-0400 Body weight [address] Hung Cai MD Work Phone: 4(516)935-464023 [place] [address] 09-14-2024 09:41-0500 Body height 162.[address] Hung Cai MD Work Phone: 3(866)085-074723 [place] [address] 09-14-2024 09:41-0500 Body mass index (BMI) [Ratio] 21.2 kg/m2 Dr. Hung Cai MD Work Phone: 1(203)819-991923 [place] [address] 09-14-2024 09:41-0500 Body temperature 98 [degF] Dr. Hung Cai MD Work Phone: 5(359)780-640923 [place] [address] 09-14-2024 09:41-0500 Body weight 56.[address] Hung Cai MD Work Phone: 4(311)433-245323 [place] [address] 09-14-2024 09:41-0500 Diastolic blood pressure 64 mm[Hg] Dr. Hung Cai MD Work Phone: 6(099)592-059323 [place] [address] 09-14-2024 09:41-0500 Heart rate 78 /min Dr. Hung Cai MD Work Phone: 3(042)781-581223 [place] [address] 09-14-2024 09:41-0500 Respiratory rate 19 /min Dr. Hung Cai MD Work Phone: 9(069)649-682336 [place] [address] 09-14-2024 09:41-0500 SaO2% (BldA) [Mass fraction] 97 % Dr. Hung Cai MD Work Phone: 4(851)302-704036 [place] [address] 09-14-2024 09:41-0500 Systolic blood pressure 112 mm[Hg] Dr. Hung Cai MD Work Phone: 6(753)308-549623 [place] [address] 09-11-2024 11:47-0500 Body mass index (BMI) [Ratio] 21.1 kg/m2 Dr. Hung Cai MD Work Phone: 5(654)476-084023 [place] [address] 09-11-2024 11:47-0500 Body temperature 97 [degF] Dr. Hung Cai MD Work Phone: 5(023)736-509023 [place] [address] 09-11-2024 11:47-0500 Body weight 55.[address] Hung Cai MD Work Phone: 5(019)037-601423 [place] [address] 09-11-2024 11:47-0500 Diastolic blood pressure 78 mm[Hg] Dr. Hung Cai MD Work Phone: 2(260)382-524282 [address] 09-11-2024 11:47-0500 Heart rate 93 /min Dr. Hung Cai MD Work Phone: 9(134)332-109582 [address] 09-11-2024 11:47-0500 Respiratory rate 16 /min Dr. Hung Cai MD Work Phone: 4(075)754-239782 [address] 09-11-2024 11:47-0500 SaO2% (BldA) [Mass fraction] 99 % Dr. Hung Cai MD Work Phone: 1(788)988-068882 [address] 09-11-2024 11:47-0500 Systolic blood pressure 99 mm[Hg] Dr. Hung Cai MD Work Phone: 8(541)145-891182 [address] 08-17-2024 12:06-0500 Body mass index (BMI) [Ratio] 22.57 kg/m2 Julieta Poole APRN.CNP Work Phone: [facility] 08-17-2024 12:06-0500 Body temperature 97 [degF] Julieta Moomaw PHOTOGRAPHY PROFESSOR.NURSING TEACHER Work Phone: [facility] 08-17-2024 12:06-0500 Body weight 56 kg Julieta Moomaw PHOTOGRAPHY PROFESSOR.NURSING TEACHER Work Phone: [facility] 08-17-2024 12:06-0500 Diastolic blood pressure 84 mm[Hg] Julieta Moomaw PHOTOGRAPHY PROFESSOR.NURSING TEACHER Work Phone: [facility] 08-17-2024 12:06-0500 Heart rate 86 /min Julieta Moomaw PHOTOGRAPHY PROFESSOR.NURSING TEACHER Work Phone: [facility] 08-17-2024 12:06-0500 Respiratory rate 20 /min Julieta Moomaw PHOTOGRAPHY PROFESSOR.NURSING TEACHER Work Phone: [facility] 08-17-2024 12:06-0500 SaO2% (BldA) [Mass fraction] 99 % Julieta Moomaw PHOTOGRAPHY PROFESSOR.NURSING TEACHER Work Phone: [facility] 08-17-2024 12:06-0500 Systolic blood pressure 114 mm[Hg] Julieta Moomaw PHOTOGRAPHY PROFESSOR.NURSING TEACHER Work Phone: [facility] 08-13-2024 10:12-0500 Body mass index (BMI) [Ratio] 21.8 kg/m2 Dr. Hung Cai MD Work Phone: [facility] 08-13-2024 10:12-0500 Body temperature 98.3 [degF] Dr. Hung Cai MD Work Phone: [facility] 08-13-2024 10:12-0500 Body weight 57.[address] Hung Cai MD Work Phone: [facility] 08-13-2024 10:12-0500 Diastolic blood pressure 80 mm[Hg] Dr. Hung Cai MD Work Phone: [facility] 08-13-2024 10:12-0500 Heart rate 68 /min Dr. Hung Cai MD Work Phone: [facility] 08-13-2024 10:12-0500 Respiratory rate 16 /min Dr. Hung Cai MD Work Phone: 5(477)268-109423 [place] [address] 08-13-2024 10:12-0500 SaO2% (BldA) [Mass fraction] 97 % Dr. Hung Cai MD Work Phone: 4(659)687-110223 [place] [address] 08-13-2024 10:12-0500 Systolic blood pressure 110 mm[Hg] Dr. Hung Cai MD Work Phone: 2(869)731-327023 [place] [address] 08-01-2024 15:35-0500 Body mass index (BMI) [Ratio] 21.4 kg/m2 Dr. Hung Cai MD Work Phone: 4(597)754-113723 [place] [address] 08-01-2024 15:35-0500 Body temperature 96.6 [degF] Dr. Hung Cai MD Work Phone: 0(711)083-467623 [place] [address] 08-01-2024 15:35-0500 Body weight 56.[address] Hung Cai MD Work Phone: 1(086)456-868623 [place] [address] 08-01-2024 15:35-0500 Diastolic blood pressure 92 mm[Hg] Dr. Hung Cai MD Work Phone: 6(059)079-302823 [place] [address] 08-01-2024 15:35-0500 Heart rate 86 /min Dr. Hung Cai MD Work Phone: 8(544)521-905523 [place] [address] 08-01-2024 15:35-0500 Respiratory rate 16 /min Dr. Hung Cai MD Work Phone: 7(300)263-596823 [place] [address] 08-01-2024 15:35-0500 SaO2% (BldA) [Mass fraction] 99 % Dr. Hung Cai MD Work Phone: 8(791)959-207923 [place] [address] 08-01-2024 15:35-0500 Systolic blood pressure 126 mm[Hg] Dr. Hung Cai MD Work Phone: 0(047)697-530323 [place] [address] 07-31-2024 09:08-0500 Body mass index (BMI) [Ratio] 22.97 kg/m2 Mone Eduardo PHOTOGRAPHY PROFESSOR.NURSING TEACHER Work Phone: [facility] 07-31-2024 09:08-0500 Body weight 56.97 kg Mone Eduardo PHOTOGRAPHY PROFESSOR.NURSING TEACHER Work Phone: [facility] 07-31-2024 09:08-0500 Diastolic blood pressure 62 mm[Hg] Mone Eduardo PHOTOGRAPHY PROFESSOR.NURSING TEACHER Work Phone: [facility] 07-31-2024 09:08-0500 Systolic blood pressure 110 mm[Hg] Mone Eduardo PHOTOGRAPHY PROFESSOR.NURSING TEACHER Work Phone: [facility] 06-03-2024 10:27-0500 Body mass index (BMI) [Ratio] 23.7 kg/m2 Meagan Praisler-Wood PHOTOGRAPHY PROFESSOR.NURSING TEACHER Work Phone: [facility] 06-03-2024 10:27-0500 Body temperature 97.7 [degF] Meagan Praisler-Wood PHOTOGRAPHY PROFESSOR.NURSING TEACHER Work Phone: [facility] 06-03-2024 10:27-0500 Body weight 58.8 kg Meagan Praisler-Wood PHOTOGRAPHY PROFESSOR.NURSING TEACHER Work Phone: [facility] 06-03-2024 10:27-0500 Diastolic blood pressure 84 mm[Hg] Meagan Praisler-Wood PHOTOGRAPHY PROFESSOR.NURSING TEACHER Work Phone: [facility] 06-03-2024 10:27-0500 Heart rate 72 /min Meagan Praisler-Wood PHOTOGRAPHY PROFESSOR.NURSING TEACHER Work Phone: [facility] 06-03-2024 10:27-0500 Respiratory rate 16 /min Meagan Praisler-Wood PHOTOGRAPHY PROFESSOR.NURSING TEACHER Work Phone: [facility] 06-03-2024 10:27-0500 SaO2% (BldA) [Mass fraction] 100 % Meagan Praisler-Wood PHOTOGRAPHY PROFESSOR.NURSING TEACHER Work Phone: [facility] 06-03-2024 10:27-0500 Systolic blood pressure 118 mm[Hg] Meagan Praisler-Wood PHOTOGRAPHY PROFESSOR.NURSING TEACHER Work Phone: [facility] 05-27-2024 12:12-0500 Body mass index (BMI) [Ratio] 23.26 kg/m2 Gem Reilly PHOTOGRAPHY PROFESSOR.NURSING TEACHER Work Phone: [facility] 05-27-2024 12:12-0500 Body temperature 97.11 [degF] Gem Reilly PHOTOGRAPHY PROFESSOR.NURSING TEACHER Work Phone: [facility] 05-27-2024 12:12-0500 Body weight 57.7 kg Gem Reilly PHOTOGRAPHY PROFESSOR.NURSING TEACHER Work Phone: [facility] 05-27-2024 12:12-0500 Diastolic blood pressure 83 mm[Hg] Gem Reilly PHOTOGRAPHY PROFESSOR.NURSING TEACHER Work Phone: [facility] 05-27-2024 12:12-0500 Heart rate 79 /min Gem Reilly PHOTOGRAPHY PROFESSOR.NURSING TEACHER Work Phone: [facility] 05-27-2024 12:12-0500 Respiratory rate 18 /min Gem Reilly PHOTOGRAPHY PROFESSOR.NURSING TEACHER Work Phone: [facility] 05-27-2024 12:12-0500 SaO2% (BldA) [Mass fraction] 99 % Gem Reilly PHOTOGRAPHY PROFESSOR.NURSING TEACHER Work Phone: [facility] 05-27-2024 12:12-0500 Systolic blood pressure 112 mm[Hg] Gem Reilly PHOTOGRAPHY PROFESSOR.NURSING TEACHER Work Phone: [facility] 03-21-2024 11:43-0400 Body mass index (BMI) [Ratio] 22.16 kg/m2 Prudencio Pedro MD Work Phone: [facility] 03-21-2024 11:43-0400 Body temperature 97.3 [degF] Prudencio Pedro MD Work Phone: [facility] 03-21-2024 11:43-0400 Body weight 54.98 kg Prudencio Pedro MD Work Phone: [facility] 03-21-2024 11:43-0400 Diastolic blood pressure 86 mm[Hg] Prudencio Pedro MD Work Phone: [facility] 03-21-2024 11:43-0400 Heart rate 68 /min Prudencio Pedro MD Work Phone: [facility] 03-21-2024 11:43-0400 Respiratory rate 18 /min Prudencio Pedro MD Work Phone: [facility] 03-21-2024 11:43-0400 SaO2% (BldA) [Mass fraction] 96 % Prudencio Pedro MD Work Phone: [facility] 03-21-2024 11:43-0400 Systolic blood pressure 122 mm[Hg] Prudencio Pedro MD Work Phone: [facility] 03-20-2024 09:54-0400 Body mass index (BMI) [Ratio] 22.25 kg/m2 Marcy Pan PHOTOGRAPHY PROFESSOR.NURSING TEACHER Work Phone: [facility] 03-20-2024 09:54-0400 Body temperature 96.91 [degF] Marcy Pan PHOTOGRAPHY PROFESSOR.NURSING TEACHER Work Phone: [facility] 03-20-2024 09:54-0400 Body weight 55.2 kg Marcy Pan PHOTOGRAPHY PROFESSOR.NURSING TEACHER Work Phone: [facility] 03-20-2024 09:54-0400 Diastolic blood pressure 60 mm[Hg] Marcy Pan PHOTOGRAPHY PROFESSOR.NURSING TEACHER Work Phone: [facility] 03-20-2024 09:54-0400 Heart rate 86 /min Marcy Pan PHOTOGRAPHY PROFESSOR.NURSING TEACHER Work Phone: [facility] 03-20-2024 09:54-0400 Respiratory rate 16 /min Marcy Pan PHOTOGRAPHY PROFESSOR.NURSING TEACHER Work Phone: [facility] 03-20-2024 09:54-0400 SaO2% (BldA) [Mass fraction] 99 % Marcy Pan PHOTOGRAPHY PROFESSOR.NURSING TEACHER Work Phone: [facility] 03-20-2024 09:54-0400 Systolic blood pressure 102 mm[Hg] Marcy Pan PHOTOGRAPHY PROFESSOR.NURSING TEACHER Work Phone: [facility] 02-27-2024 10:58-0400 Body mass index (BMI) [Ratio] 22.33 kg/m2 Prudencio Pedro MD Work Phone: [facility] 02-27-2024 10:58-0400 Body temperature 97.81 [degF] Prudencio Pedro MD Work Phone: [facility] 02-27-2024 10:58-0400 Body weight 55.4 kg Prudencio Pedro MD Work Phone: [facility] 02-27-2024 10:58-0400 Diastolic blood pressure 64 mm[Hg] Prudencio Pedro MD Work Phone: [facility] 02-27-2024 10:58-0400 Heart rate 101 /min Prudencio Pedro MD Work Phone: [facility] 02-27-2024 10:58-0400 Respiratory rate 18 /min Prudencio Pedro MD Work Phone: [facility] 02-27-2024 10:58-0400 SaO2% (BldA) [Mass fraction] 98 % Prudencio Pedro MD Work Phone: [facility] 02-27-2024 10:58-0400 Systolic blood pressure 110 mm[Hg] Prudencio Pedro MD Work Phone: [facility] 02-13-2024 08:50-0400 Body temperature 97.7 [degF] Diamond Podlogar PHOTOGRAPHY PROFESSOR.NURSING TEACHER Work Phone: [facility] 02-13-2024 08:50-0400 Diastolic blood pressure 78 mm[Hg] Diamond Podlogar PHOTOGRAPHY PROFESSOR.NURSING TEACHER Work Phone: [facility] 02-13-2024 08:50-0400 Heart rate 111 /min Diamond Podlogar PHOTOGRAPHY PROFESSOR.NURSING TEACHER Work Phone: [facility] 02-13-2024 08:50-0400 Respiratory rate 18 /min Diamond Podlogar PHOTOGRAPHY PROFESSOR.NURSING TEACHER Work Phone: [facility] 02-13-2024 08:50-0400 SaO2% (BldA) [Mass fraction] 97 % Diamond Bright APRN.NURSING TEACHER Work Phone: [facility] 02-13-2024 08:50-0400 Systolic blood pressure 108 mm[Hg] Diamond Bright APRN.NURSING TEACHER Work Phone: [facility] 02-06-2024 09:43-0400 Body mass index (BMI) [Ratio] 22.2 kg/m2 Prudencio Pedro MD Work Phone: [facility] 02-06-2024 09:43-0400 Body temperature 97.3 [degF] Prudencio Pedro MD Work Phone: [facility] 02-06-2024 09:43-0400 Body weight 55.07 kg Prudencio Pedro MD Work Phone: [facility] 02-06-2024 09:43-0400 Diastolic blood pressure 70 mm[Hg] Prudencio Pedro MD Work Phone: [facility] 02-06-2024 09:43-0400 Heart rate 96 /min Prudencio Pedro MD Work Phone: [facility] 02-06-2024 09:43-0400 Respiratory rate 18 /min Prudencio Pedro MD Work Phone: [facility] 02-06-2024 09:43-0400 SaO2% (BldA) [Mass fraction] 97 % Prudencio Pedro MD Work Phone: [facility] 02-06-2024 09:43-0400 Systolic blood pressure 110 mm[Hg] Prudencio Pedro MD Work Phone: [facility] 11-22-2023 14:55-0400 Body mass index (BMI) [Ratio] 22.13 kg/m2 Meagan Ribeiro APRN.NURSING TEACHER Work Phone: [facility] 11-22-2023 14:55-0400 Body temperature 97.39 [degF] Meagan Praisler-Wood PHOTOGRAPHY PROFESSOR.NURSING TEACHER Work Phone: [facility] 11-22-2023 14:55-0400 Body weight 54.9 kg Meagan Praisler-Wood PHOTOGRAPHY PROFESSOR.NURSING TEACHER Work Phone: [facility] 11-22-2023 14:55-0400 Diastolic blood pressure 82 mm[Hg] Meagan Praisler-Wood PHOTOGRAPHY PROFESSOR.NURSING TEACHER Work Phone: [facility] 11-22-2023 14:55-0400 Heart rate 81 /min Meagan Praisler-Wood PHOTOGRAPHY PROFESSOR.NURSING TEACHER Work Phone: [facility] 11-22-2023 14:55-0400 Respiratory rate 18 /min Meagan Praisler-Wood PHOTOGRAPHY PROFESSOR.NURSING TEACHER Work Phone: [facility] 11-22-2023 14:55-0400 SaO2% (BldA) [Mass fraction] 98 % Meagan Praisler-Wood PHOTOGRAPHY PROFESSOR.NURSING TEACHER Work Phone: [facility] 11-22-2023 14:55-0400 Systolic blood pressure 128 mm[Hg] Meagan Praisler-Wood PHOTOGRAPHY PROFESSOR.NURSING TEACHER Work Phone: [facility] 11-09-2023 09:55-0400 Body height 157.5 cm Pulm Wstr Work Phone: [facility] 11-09-2023 09:55-0400 Body mass index (BMI) [Ratio] 22.86 kg/m2 Pulm Wstr Work Phone: [facility] 11-09-2023 09:55-0400 Body weight 56.7 kg Pulm Wstr Work Phone: [facility] 11-09-2023 09:55-0400 Heart rate 79 /min Pulm Wstr Work Phone: [facility] 11-09-2023 09:55-0400 Respiratory rate 17 /min Pulm Wstr Work Phone: [facility] 11-09-2023 09:55-0400 SaO2% (BldA) [Mass fraction] 99 % Pulm Wstr Work Phone: [facility] 11-09-2023 09:22-0400 Body mass index (BMI) [Ratio] 22.92 kg/m2 Stephenie Fariha PA-C Work Phone: [facility] 11-09-2023 09:22-0400 Body weight 56.7 kg Stephenie Fariha PA-C Work Phone: [facility] 11-09-2023 09:22-0400 Diastolic blood pressure 72 mm[Hg] Stephenie Fariha PA-C Work Phone: [facility] 11-09-2023 09:22-0400 Heart rate 79 /min Stephenie Fariha PA-C Work Phone: [facility] 11-09-2023 09:22-0400 Respiratory rate 17 /min Stephenie Fariha PA-C Work Phone: [facility] 11-09-2023 09:22-0400 SaO2% (BldA) [Mass fraction] 99 % Stephenie Fariha PA-C Work Phone: [facility] 11-09-2023 09:22-0400 Systolic blood pressure 104 mm[Hg] Stephenie Fariha PA-C Work Phone: [facility] 10-24-2023 11:18-0400 Body temperature 97.5 [degF] Pam Athy PA-C Work Phone: [facility] 10-24-2023 11:18-0400 Body weight 55.5 kg Pam Athy PA-C Work Phone: [facility] 10-24-2023 11:18-0400 Diastolic blood pressure 74 mm[Hg] Pam Athy PA-C Work Phone: [facility] 10-24-2023 11:18-0400 Heart rate 98 /min Pam Athy PA-C Work Phone: [facility] 10-24-2023 11:18-0400 Respiratory rate 18 /min Pam Athy PA-C Work Phone: [facility] 10-24-2023 11:18-0400 SaO2% (BldA) [Mass fraction] 97 % Pam Leggettsiena PA-C Work Phone: [facility] 10-24-2023 11:18-0400 Systolic blood pressure 118 mm[Hg] Pam Leggettsiena PA-C Work Phone: [facility] 09-07-2023 10:04-0500 Body height 157.3 cm Diamond Podlogar PHOTOGRAPHY PROFESSOR.NURSING TEACHER Work Phone: [facility] 09-07-2023 10:04-0500 Body weight 55.97 kg Diamond Podlogar PHOTOGRAPHY PROFESSOR.NURSING TEACHER Work Phone: [facility] 09-07-2023 10:04-0500 Diastolic blood pressure 64 mm[Hg] Diamond Podlogar PHOTOGRAPHY PROFESSOR.NURSING TEACHER Work Phone: [facility] 09-07-2023 10:04-0500 Heart rate 62 /min Diamond Podlogar PHOTOGRAPHY PROFESSOR.NURSING TEACHER Work Phone: [facility] 09-07-2023 10:04-0500 Respiratory rate 18 /min Diamond Podlogar PHOTOGRAPHY PROFESSOR.NURSING TEACHER Work Phone: [facility] 09-07-2023 10:04-0500 SaO2% (BldA) [Mass fraction] 98 % Diamond Podlogar PHOTOGRAPHY PROFESSOR.NURSING TEACHER Work Phone: [facility] 09-07-2023 10:04-0500 Systolic blood pressure 100 mm[Hg] Diamond Podlogar PHOTOGRAPHY PROFESSOR.NURSING TEACHER Work Phone: [facility] 08-30-2023 12:03-0500 Body height 162.[address] Segundo WILSON Work Phone: [facility] 08-30-2023 12:03-0500 Body mass index (BMI) [Ratio] 21.4 kg/m2 Dr. Segundo WILSON Work Phone: [facility] 08-30-2023 12:03-0500 Body temperature 97 [degF] Dr. Segundo WILSON Work Phone: [facility] 08-30-2023 12:03-0500 Body weight 56.[address] Segundo WILSON Work Phone: [facility] 08-30-2023 12:03-0500 Diastolic blood pressure 85 mm[Hg] Dr. Segundo WILSON Work Phone: [facility] 08-30-2023 12:03-0500 Heart rate 97 /min Dr. Segundo WILSON Work Phone: [facility] 08-30-2023 12:03-0500 Respiratory rate 18 /min Dr. Segundo WILSON Work Phone: [facility] 08-30-2023 12:03-0500 SaO2% (BldA) [Mass fraction] 98 % Dr. Segundo WILSON Work Phone: [facility] 08-30-2023 12:03-0500 Systolic blood pressure 120 mm[Hg] Dr. Segundo WILSON Work Phone: [facility] 06-13-2023 10:03-0500 Body temperature 97.3 [degF] Krislyn Aberegg PA Work Phone: [facility] 06-13-2023 10:03-0500 Body weight 54.88 kg Krislyn Aberegg PA Work Phone: [facility] 06-13-2023 10:03-0500 Diastolic blood pressure 78 mm[Hg] Krislyn Aberegg PA Work Phone: [facility] 06-13-2023 10:03-0500 Heart rate 77 /min Krislyn Aberegg PA Work Phone: [facility] 06-13-2023 10:03-0500 Respiratory rate 18 /min Krislyn Aberegg PA Work Phone: [facility] 06-13-2023 10:03-0500 SaO2% (BldA) [Mass fraction] 100 % Louie MANNING Work Phone: [facility] 06-13-2023 10:03-0500 Systolic blood pressure 106 mm[Hg] Louie MANNING Work Phone: [facility] 03-30-2023 15:34-0400 Body temperature 98.71 [degF] Rob Pendlebury PHOTOGRAPHY PROFESSOR.NURSING TEACHER Work Phone: [facility] 03-30-2023 15:34-0400 Body weight 54.07 kg [facility] PHOTOGRAPHY PROFESSOR.NURSING TEACHER Work Phone: [facility] 03-30-2023 15:34-0400 Diastolic blood pressure 88 mm[Hg] Rob Pendlebury PHOTOGRAPHY PROFESSOR.NURSING TEACHER Work Phone: [facility] 03-30-2023 15:34-0400 Heart rate 84 /min Rob Pendlebury PHOTOGRAPHY PROFESSOR.NURSING TEACHER Work Phone: [facility] 03-30-2023 15:34-0400 Respiratory rate 18 /min Rob Pendlebury PHOTOGRAPHY PROFESSOR.NURSING TEACHER Work Phone: [facility] 03-30-2023 15:34-0400 SaO2% (BldA) [Mass fraction] 100 % [facility] PHOTOGRAPHY PROFESSOR.NURSING TEACHER Work Phone: [facility] 03-30-2023 15:34-0400 Systolic blood pressure 125 mm[Hg] Rob Pendlebury PHOTOGRAPHY PROFESSOR.NURSING TEACHER Work Phone: [facility] 03-14-2023 11:35-0400 Body weight 54.88 kg David Brown MD Work Phone: [facility] 03-14-2023 11:35-0400 Diastolic blood pressure 80 mm[Hg] David Brown MD Work Phone: [facility] 03-14-2023 11:35-0400 Heart rate 66 /min David Brown MD Work Phone: [facility] 03-14-2023 11:35-0400 Respiratory rate 15 /min David Brown MD Work Phone: [facility] 03-14-2023 11:35-0400 SaO2% (BldA) [Mass fraction] 100 % David Brown MD Work Phone: [facility] 03-14-2023 11:35-0400 Systolic blood pressure 122 mm[Hg] David Brown MD Work Phone: [facility] 02-16-2023 14:34-0400 Body temperature 97.39 [degF] Pam Athy PA-C Work Phone: [facility] 02-16-2023 14:34-0400 Body weight 55.25 kg Pam Athy PA-C Work Phone: [facility] 02-16-2023 14:34-0400 Diastolic blood pressure 64 mm[Hg] Pam Athy PA-C Work Phone: [facility] 02-16-2023 14:34-0400 Heart rate 87 /min Pam Athy PA-C Work Phone: [facility] 02-16-2023 14:34-0400 Respiratory rate 18 /min Pam Athy PA-C Work Phone: [facility] 02-16-2023 14:34-0400 SaO2% (BldA) [Mass fraction] 99 % Pam Athy PA-C Work Phone: [facility] 02-16-2023 14:34-0400 Systolic blood pressure 100 mm[Hg] Pam Athy PA-C Work Phone: [facility] 11-17-2022 14:32-0400 Body weight 56.97 kg Diamond Bright APRN.NURSING TEACHER Work Phone: [facility] 11-17-2022 14:32-0400 Diastolic blood pressure 88 mm[Hg] Diamond Bright APRN.NURSING TEACHER Work Phone: [facility] 11-17-2022 14:32-0400 Heart rate 86 /min Diamond Podlogar PHOTOGRAPHY PROFESSOR.NURSING TEACHER Work Phone: [facility] 11-17-2022 14:32-0400 Respiratory rate 18 /min Diamond Podlogar PHOTOGRAPHY PROFESSOR.NURSING TEACHER Work Phone: [facility] 11-17-2022 14:32-0400 SaO2% (BldA) [Mass fraction] 100 % Diamond Podlogar PHOTOGRAPHY PROFESSOR.NURSING TEACHER Work Phone: [facility] 11-17-2022 14:32-0400 Systolic blood pressure 128 mm[Hg] Diamond Podlogar PHOTOGRAPHY PROFESSOR.NURSING TEACHER Work Phone: [facility] 11-05-2022 14:29-0400 Body temperature 98.6 [degF] Meagan Praisler-Wood PHOTOGRAPHY PROFESSOR.NURSING TEACHER Work Phone: [facility] 11-05-2022 14:29-0400 Body weight 56.06 kg Meagan Praisler-Wood PHOTOGRAPHY PROFESSOR.NURSING TEACHER Work Phone: [facility] 11-05-2022 14:29-0400 Diastolic blood pressure 72 mm[Hg] Meagan Praisler-Wood PHOTOGRAPHY PROFESSOR.NURSING TEACHER Work Phone: [facility] 11-05-2022 14:29-0400 Heart rate 84 /min Meagan Praisler-Wood PHOTOGRAPHY PROFESSOR.NURSING TEACHER Work Phone: [facility] 11-05-2022 14:29-0400 Respiratory rate 18 /min Meagan Praisler-Wood PHOTOGRAPHY PROFESSOR.NURSING TEACHER Work Phone: [facility] 11-05-2022 14:29-0400 SaO2% (BldA) [Mass fraction] 97 % Meagan Praisler-Wood PHOTOGRAPHY PROFESSOR.NURSING TEACHER Work Phone: [facility] 11-05-2022 14:29-0400 Systolic blood pressure 112 mm[Hg] Meagan Praisler-Wood PHOTOGRAPHY PROFESSOR.NURSING TEACHER Work Phone: [facility] 11-01-2022 13:25-0400 Body temperature 97 [degF] Pam Garibay PA-C Work Phone: [facility] 11-01-2022 13:25-0400 Body weight 58.24 kg Pam Athy PA-C Work Phone: [facility] 11-01-2022 13:25-0400 Diastolic blood pressure 80 mm[Hg] Pam Athy PA-C Work Phone: [facility] 11-01-2022 13:25-0400 Heart rate 85 /min Pam Athy PA-C Work Phone: [facility] 11-01-2022 13:25-0400 Respiratory rate 21 /min Pam Athy PA-C Work Phone: [facility] 11-01-2022 13:25-0400 SaO2% (BldA) [Mass fraction] 97 % Pam Athy PA-C Work Phone: [facility] 11-01-2022 13:25-0400 Systolic blood pressure 122 mm[Hg] Pam Athy PA-C Work Phone: [facility] 09-07-2022 11:48-0500 Body temperature 97 [degF] Rob Pendlebury PHOTOGRAPHY PROFESSOR.NURSING TEACHER Work Phone: [facility] 09-07-2022 11:48-0500 Body weight 56.52 kg Rob Pendlebury PHOTOGRAPHY PROFESSOR.NURSING TEACHER Work Phone: [facility] 09-07-2022 11:48-0500 Diastolic blood pressure 80 mm[Hg] Rob Pendlebury PHOTOGRAPHY PROFESSOR.NURSING TEACHER Work Phone: [facility] 09-07-2022 11:48-0500 Heart rate 90 /min Rob Pendlebury PHOTOGRAPHY PROFESSOR.NURSING TEACHER Work Phone: [facility] 09-07-2022 11:48-0500 Respiratory rate 18 /min Rob Pendlebury PHOTOGRAPHY PROFESSOR.NURSING TEACHER Work Phone: [facility] 09-07-2022 11:48-0500 SaO2% (BldA) [Mass fraction] 98 % Rob Pendlebury PHOTOGRAPHY PROFESSOR.NURSING TEACHER Work Phone: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 Segundo Pedro MD Work Phone: [facility] [place] Comment on above: Paperwork Question Start: 02-17-2024 Nurse Triage Trista Centeno RN NURSE ACCOUNTING PRACTICE MANAGER Comment on above: Refill Request Insurance Authorizat ion Start: 02-16-2024 Telephone encounter Segundo Pedro MD Work Phone: [facility] [place] Comment on above: Patient Question Start: 02-15-2024 Telephone encounter Segundo Pedro MD Work Phone: [facility] Comment on above: Medication Request Start: 02-13-2024 End: 02-13-2024 Patient encounter procedure Diamond Bright APRN.NURSING TEACHER Work Phone: [facility] Comment on above: Partial thickness bu rn of right foot, initial encounter (Primary Dx) Refill Request Start: 02-13-2024 End: 04-17-2024 Telephone encounter Prudencio Pedro MD Work Phone: [facility] Comment on above: [facility] Wound Center req uesting records [facility] paperwork C9 approval for Woun d Center Start: 02-10-2024 Telephone encounter Segundo Pedro MD Work Phone: [facility] Comment on above: Patient Request Refill Request Start: 02-06-2024 Telephone encounter Segundo Pedro MD Work Phone: [facility] [place] Comment on above: Orders Start: 02-06-2024 End: 02-06-2024 Patient encounter procedure Prudencio Pedro MD Work Phone: [facility] [place] Comment on above: Partial thickness bu rn of right foot, initial encounter (Primary Dx) Start: 02-04-2024 ambulatory Tracie heath RN NURSE ACCOUNTING PRACTICE MANAGER Start: 02-04-2024 End: 02-04-2024 Patient encounter procedure Tracie Ford RN NURSE ACCOUNTING PRACTICE MANAGER Comment on above: Clinical Update Encounter related to worker's compensation claim (Primary Dx) Start: 12-07-2023 Telephone encounter David Brown MD Work Phone: Pulmonary Medicine Comment on above: Cough Start: 11-22-2023 End: 11-22-2023 Patient encounter procedure Meagan Ribeiro APRN.NURSING TEACHER Work Phone: [facility] Comment on above: Nausea (Primary Dx); History of vomiting Start: 11-09-2023 End: 11-09-2023 ambulatory Pulm Lab [facility] Work Phone: PULM LAB [facility] Comment on above: Spirometry Start: 11-09-2023 End: 11-09-2023 Patient encounter procedure Pulm Lab [facility] Work Phone: PUL LAB [facility] Comment on above: Centrilobular emphys jeremy (HCC) (Primary Dx); Chronic bronchitis, unspecified chronic bronchitis type (HCC); Cigarette smoker Start: 11-03-2023 Refill Prudencio Pedro MD Work Phone: [facility] Comment on above: Refill Request Start: 11-01-2023 Telephone encounter Segundo Pedro MD Work Phone: Mammogram Start: 10-24-2023 End: 10-24-2023 Patient encounter procedure Pam Garibay PA-C Work Phone: [facility] Comment on above: Nausea and vomiting, unspecified vomiting type (Primary Dx) Start: 10-19-2023 ambulatory Prudencio Pedro MD Work Phone: Internal Medicine [facility] [place] Start: 10-04-2023 Telephone encounter David Brown MD Work Phone: Pulmonary Medicine Comment on above: Patient Question (Dr phillip last pill) Start: 09-22-2023 Telephone encounter David Brown MD Work Phone: Podiatry Start: 09-14-2023 Refill David Brown MD Work Phone: Pulmonary Medicine Comment on above: Refill Request Start: 09-07-2023 End: 09-07-2023 Patient encounter procedure Diamond Bright APRN.NURSING TEACHER Work Phone: [facility] Comment on above: Annual physical exam (Primary Dx); Screening for colon cancer; Depression screening; Abnormal mammogram; Tobacco use disorder, continuous; Centrilobular emphysema (HCC); HIV infection, unspecified symptom status (HCC) Start: 08-30-2023 End: 08-30-[address] Segundo WILSON Work Phone: [facility] Work Phone: Start: 08-30-2023 End: 08-30-[address] Segundo WILSON Work Phone: [facility] Work Phone: Start: 08-29-2023 Telephone encounter Segundo Pedro MD Work Phone: [facility] Comment on above: Rx refill; discontin ued medication Start: 08-23-2023 End: 08-23-2023 ambulatory [facility] Work Phone: Start: 08-23-2023 End: 08-23-2023 Patient encounter procedure [facility]-Laboratory Work Phone: Start: 06-27-2023 Refill Prudencio Pedro MD Work Phone: [facility] Comment on above: Refill Request Start: 06-24-2023 Refill David Brown MD Work Phone: Pulmonary Medicine Comment on above: Refill Request Start: 06-13-2023 End: 06-13-2023 Subsequent hospital visit by physician Xr [facility] Work Phone: Radiology Comment on above: Acute pain of left s honilda [M25.512] Start: 06-13-2023 End: 06-13-2023 Patient encounter procedure Louie MANNING Work Phone: [facility] Comment on above: Acute pain of left s honilda (Primary Dx) Start: 05-31-2023 Refill David Brown MD Work Phone: Pulmonary Medicine Comment on above: Refill Request Start: 05-18-2023 Telephone encounter Segundo Pedro MD Work Phone: [facility] Comment on above: Results Start: 05-17-2023 End: 05-17-2023 Subsequent hospital visit by physician Diagnostic Mammo [facility] Mammogram Comment on above: Abnormal mammogram [ R92.8] Start: 05-09-2023 End: 05-09-2023 Patient encounter procedure Bruce Wilson MD Work Phone: Orthopaedics Comment on above: Left wrist pain (Lora steph Dx); Closed fracture of left wrist, initial encounter Start: 05-09-2023 End: 05-09-2023 Subsequent hospital visit by physician Codey [facility] Gonzales Work Phone: Radiology Comment on above: Pain in left wrist [ M25.532] Start: 04-18-2023 End: 04-18-2023 Subsequent hospital visit by physician Xr [facility] Work Phone: Radiology Comment on above: Fall, initial encoun ter [W19.XXXA] Start: 04-13-2023 End: 04-13-2023 Subsequent hospital visit by physician Xr [facility] [place] Work Phone: Radiology Comment on above: Productive cough [R0 5.8] Start: 04-05-2023 Telephone encounter David Brown MD Work Phone: Pulmonary Medicine Comment on above: Cough Start: 03-31-2023 Telephone encounter Meagan Sandoval PHOTOGRAPHY PROFESSOR.NURSING TEACHER Work Phone: [facility] Comment on above: Results Start: 03-30-2023 End: 03-30-2023 Office outpatient visit 15 minutes Rob Chirinos PHOTOGRAPHY PROFESSOR.NURSING TEACHER Work Phone: [facility] Comment on above: Viral illness (Prima ry Dx); Loose stools Start: 03-14-2023 Telephone encounter Iliana cope MD Work Phone: OB/Gynecology Start: 03-14-2023 End: 03-14-2023 Patient encounter procedure David Brown MD Work Phone: Pulmonary Medicine Comment on above: Simple chronic bronc hitis (HCC) (Primary Dx); Centrilobular emphysema (HCC); Cigarette smoker Start: 02-21-2023 Refill Prudencio Pedro MD Work Phone: [facility] Comment on above: Refill Request Start: 02-17-2023 Telephone encounter Louie MANNING Work Phone: [facility] Comment on above: Results Start: 02-16-2023 End: 02-16-2023 Patient encounter procedure Pam Garibay PA-C Work Phone: [facility] Comment on above: Vaginal discharge (P rimary Dx); Urinary frequency Start: 01-05-2023 Telephone encounter Mara Kaiser APRN.NURSING TEACHER Work Phone: [facility] Comment on above: Results Start: 11-26-2022 ambulatory Prudencio Pedro MD Work Phone: [facility] [place] Comment on above: Patient Question; sk in injury Start: 11-19-2022 Telephone encounter Diamond alvarado APRN.NURSING TEACHER Work Phone: [facility] [place] Comment on above: Results Start: 11-17-2022 End: 11-17-2022 Patient encounter procedure Diamond Bright APRN.NURSING TEACHER Work Phone: [facility] [place] Comment on above: Vitamin D deficiency (Primary Dx); Smoking Start: 11-08-2022 Refill Prudencio Pedro MD Work Phone: [facility] Comment on above: Refill Request Start: 11-05-2022 End: 11-05-2022 Patient encounter procedure Meagan Ribeiro APRN.NURSING TEACHER Work Phone: [facility] Comment on above: Multiple abrasions ( Primary Dx) Start: 11-01-2022 End: 11-01-2022 Patient encounter procedure Pam Garibay PA-C Work Phone: [facility] Comment on above: Cat bite, initial en counter (Primary Dx) Start: 10-19-2022 Telephone encounter Segundo Pedro MD Work Phone: [facility] [place] Comment on above: Results Start: 10-19-2022 End: 10-19-2022 Subsequent hospital visit by physician [facility] Work Phone: Radiology Comment on above: Abnormal mammogram [ R92.8] Start: 09-20-2022 ambulatory Prudencio Pedro MD Work Phone: [facility] Comment on above: Breast Problem Start: 09-14-2022 Documentation procedure Mammog chong Coordinator [facility] Start: 09-14-2022 Letter encounter Mammography Coordinator [facility] Department Start: 09-13-2022 End: 09-13-2022 Subsequent hospital visit by physician Screen Mammo [facility] Mammogram Comment on above: Encounter for screen ing mammogram for breast cancer [Z12.31] Start: 09-10-2022 Telephone encounter David Brown MD Work Phone: Pulmonary Medicine Comment on above: Results Start: 09-08-2022 Telephone encounter Rob dinh APRN.NURSING TEACHER Work Phone: [facility] Comment on above: Results Start: 09-07-2022 End: 09-07-2022 Office outpatient visit 15 minutes Rob Chirinos PHOTOGRAPHY PROFESSOR.NURSING TEACHER Work Phone: [facility] Comment on above: Viral illness (Prima ry Dx); Loose stools Start: 09-06-2022 Telephone encounter Segundo Pedro MD Work Phone: [facility] Comment on above: Patient Question Start: 09-02-2022 End: 09-02-2022 Patient encounter procedure Prudencio Pedro MD Work Phone: [facility] Comment on above: Tobacco use (Primary Dx); Cat scratch; Cat bite, initial encounter Start: 08-27-2022 Telephone encounter Segundo Pedro MD Work Phone: [facility] Comment on above: Nicotine Dependence Start: 08-26-2022 Orders Only David Brown MD Work Phone: Appointment Center Comment on above: Chronic obstructive pulmonary disease, unspecified COPD type (HCC) (Primary Dx) Start: 08-25-2022 End: 08-25-[address] Segundo Pedro Work Phone: [facility]Laboratory, [facility] Start: 08-25-2022 End: 08-25-2022 ambulatory Kacey Narayanan LPN NURSE ACCOUNTING PRACTICE MANAGER Comment on above: Results Start: 08-25-2022 Telephone encounter Segundo Pedro MD Work Phone: [facility] Comment on above: Results Start: 08-24-2022 End: 08-24-[address] Segundo Pedro Work Phone: [facility] Work Phone: Start: 08-24-2022 End: 08-24-[address] Segundo Pedro Work Phone: [facility] Start: 08-18-2022 End: 08-18-2022 Patient encounter procedure Diamond Bright APRN.NURSING TEACHER Work Phone: [facility] Comment on above: Cat bite, initial en counter (Primary Dx); Encounter for screening fecal occult blood testing Start: 08-13-2022 Telephone encounter Segundo Pedro MD Work Phone: [facility] Comment on above: Patient Update Start: 08-09-2022 End: 08-09-2022 Office outpatient visit 15 minutes Gem Wilder APRN.CNM Work Phone: OB/Gynecology Comment on above: Vaginal discharge (P rimary Dx) Start: 08-05-2022 Telephone encounter Louie MANNING Work Phone: [facility] Comment on above: Results Patient Question Start: 08-04-2022 Telephone encounter Segundo Pedro MD Work Phone: [facility] Comment on above: Results Patient Question Start: 08-03-2022 Telephone encounter Segundo Pedro MD Work Phone: [facility] Comment on above: Patient Request Results Start: 08-02-2022 Telephone encounter Barbara Cartagena [facility] Comment on above: Transportation; Lucy ent Question Start: 08-02-2022 End: 08-02-2022 Patient encounter procedure Diamond Bright APRN.NURSING TEACHER Work Phone: [facility] Comment on above: Routine physical exa mination (Primary Dx); Fatigue, unspecified type; Screening for colon cancer; Polyuria; Polydipsia; Daytime somnolence; Encounter for screening for lung cancer; Lack of access to transportation; Encounter for immunization; Special screening examination for viral disease; HIV infection, unspecified symptom status (HCC) Start: 08-02-2022 End: 08-02-2022 Physical examination Diamond Bright APRN.NURSING TEACHER Work Phone: [facility] Start: 07-30-2022 End: 07-30-2022 Patient encounter procedure Kathleen Domingo PHOTOGRAPHY PROFESSOR.NURSING TEACHER Work Phone: [facility] Comment on above: Cat bite, initial en counter (Primary Dx) Start: 07-22-2022 Telephone encounter Segundo Pedro MD Work Phone: [facility] Comment on above: Lab Order Request Start: 07-20-2022 End: 07-20-2022 ambulatory Pulm Lab [facility] Work Phone: PULM LAB [facility] Comment on above: Spirometry Start: 07-20-2022 End: 07-20-2022 Patient encounter procedure Pulm Lab [facility] Work Phone: [facility] [place] Start: 07-06-2022 End: 07-06-2022 Patient encounter procedure Chantel Pablo PHOTOGRAPHY PROFESSOR.NURSING TEACHER Work Phone: [facility] Comment on above: Cat bite, initial en counter (Primary Dx); Need for tetanus booster Start: 07-06-2022 Telephone encounter Diamond alvarado PHOTOGRAPHY PROFESSOR.NURSING TEACHER Work Phone: [facility] [place] Comment on above: Patient Update Start: 07-05-2022 End: 07-05-2022 Patient encounter procedure Diamond Bright PHOTOGRAPHY PROFESSOR.NURSING TEACHER Work Phone: [facility] [place] Comment on above: Gingivitis (Primary Dx) Start: 06-30-2022 Telephone encounter Segundo Pedro MD Work Phone: [facility] [place] Comment on above: Patient Update Start: 06-29-2022 End: 06-29-2022 Patient encounter procedure Prudencio Pedro MD Work Phone: [facility] Comment on above: Acute right-sided lo w back pain with right-sided sciatica (Primary Dx); Need for COVID-19 vaccine Start: 06-28-2022 Telephone encounter Segundo Pedro MD Work Phone: [facility] Comment on above: Patient Question Start: 06-21-2022 Telephone encounter Segundo Pedro MD Work Phone: [facility] Comment on above: Patient Question Start: 06-07-2022 Telephone encounter Diamond alvarado APRN.NURSING TEACHER Work Phone: [facility] [place] Comment on above: Medication Problem Start: 06-01-2022 Telephone encounter Segundo Pedro MD Work Phone: [facility] [place] Comment on above: Patient Question patient update on EN T apt; FYI-No Action Needed Start: 05-28-2022 Telephone encounter Segundo Pedro MD Work Phone: [facility] [place] Comment on above: Lab order request Start: 05-26-2022 Telephone encounter Segundo Pedro MD Work Phone: [facility] Comment on above: Patient Update Start: 05-17-2022 Telephone encounter Segundo Pedro MD Work Phone: [facility] [place] Comment on above: Flu vaccine question Start: 05-03-2022 Telephone encounter Diamond alvarado PHOTOGRAPHY PROFESSOR.NURSING TEACHER Work Phone: [facility] [place] Comment on above: Patient Question Start: 04-14-2022 Telephone encounter Diamond alvarado APRN.NURSING TEACHER Work Phone: [facility] [place] Comment on above: Allergies Patient Question Start: 04-10-2022 Telephone encounter Diamond alvarado APRN.NURSING TEACHER Work Phone: [facility] [place] Comment on above: Patient Update Start: 04-09-2022 End: 04-09-2022 Patient encounter procedure Diamond Connellyar PHOTOGRAPHY PROFESSOR.NURSING TEACHER Work Phone: [facility] [place] Comment on above: Cough, unspecified t ype (Primary Dx); Symptoms of upper respiratory infection (URI); Tobacco use; Seasonal allergies Start: 04-05-2022 Telephone encounter Segundo Pedro MD Work Phone: [facility] Comment on above: Medication Problem Start: 04-01-2022 Telephone encounter Segundo Pedro MD Work Phone: [facility] Comment on above: Patient Question Start: 03-18-2022 End: 03-18-2022 [facility] Start: 02-18-2022 End: 02-18-2022 Patient encounter procedure Prudencio Pedro MD Work Phone: [facility] Comment on above: Persistent cough (Pr imary Dx); Suspected COVID-19 virus infection; Tobacco use Start: 01-26-2022 Telephone encounter Diamond alvarado PHOTOGRAPHY PROFESSOR.NURSING TEACHER Work Phone: [facility] Comment on above: Results Insurance Authorizat ion Start: 01-26-2022 End: 01-26-2022 Subsequent hospital visit by physician Xr [facility] Work Phone: Radiology Comment on above: Acute cough [R05.1] Start: 01-26-2022 End: 01-26-2022 Patient encounter procedure Diamond Bright APRN.NURSING TEACHER Work Phone: [facility] Comment on above: Acute cough (Primary Dx); Eye drainage; Smoking Start: 01-20-2022 ambulatory Prudencio Pedro MD Work Phone: Internal Medicine [facility] Procedures Date Procedure Procedure Detail Performing Clinician Start: 04-18-[address] Fina Iraheta MD Work Phone: Start: 03-15-[address] Fina Iraheta MD Work Phone: Start: 03-08-2025 Computed tomography of abdomen and pelvis with intravenous contrast Dr. Fina Iraheta MD Work Phone: Start: 03-08-2025 Urnls dip stick/tabl et reagent auto microscopy Dr. Fina Iraheta MD Work Phone: Start: 03-08-[address] Fina Iraheta MD Work Phone: Start: 11-26-2024 SARS-CoV-2, Influenz a & RSV (PCR) Dr. Hung Cai MD Work Phone: Start: 11-26-[address] Hung Cai MD Work Phone: Start: 11-26-2024 X-ray of chest, PA a nd lateral views Dr. Hung Cai MD Work Phone: Start: 11-05-2024 Bilateral mammography D lindsay Cai MD Work Phone: Start: 11-05-[address] Hung Cai MD Work Phone: Start: 10-04-[address] Hung Cai MD Work Phone: Start: 10-04-[address] Hung ness MD Work Phone: Start: 10-04-[address] Hung ness MD Work Phone: Start: 09-25-2024 CT of head without contrast Dr. Hung Cai MD Work Phone: Start: 09-25-2024 PCR test for HIV 1 Dr. Hung Cai MD Work Phone: Comment on above: HIV-1 RNA not detect edThe reportable range for this assay is 20 to 10,000,000copies HIV-1 RNA/mL. Start: 09-25-2024 Dual energy X-ray absorptiometry Dr. Hung Cai MD Work Phone: Start: 09-14-2024 X-ray of lumbosacral spine Dr. Hung Cai MD Work Phone: Start: 09-11-[address] Hung ness MD Work Phone: Start: 08-13-2024 Measurement of renal function Dr. Hung Cai MD Work Phone: Comment on above: GFR Calc Start: 07-31-2024 Radiologic exam ches t 2 views Ayad Metcalf PHOTOGRAPHY PROFESSOR.NURSING TEACHER Work Phone: Start: 07-31-2024 Urnls dip stick/tabl et rgnt auto w/o microscopy Mone Palomocalf PHOTOGRAPHY PROFESSOR.NURSING TEACHER Work Phone: Start: 03-21-2024 Ecg routine ecg w/le ast 12 lds i&r only [facility] Provider Start: 11-09-2023 Brncdilat rspse spmt ry pre&post-brncdilat admn David Brown MD Work Phone: Start: 09-07-2023 Adult depression scr eening assessment Gem Reilly PHOTOGRAPHY PROFESSOR.NURSING TEACHER Work Phone: Start: 08-30-[address] Adonay WILSON Work Phone: Start: 08-23-2023 Bacterial nucleic ac id assay Start: 08-23-2023 Chlamydia trachomatis (PCR) Start: 06-13-2023 Radex shoulder compl ete minimum 2 views Louie MANNING Work Phone: Start: 05-17-2023 Digital breast tomosynthesis unilateral Prudencio Pedro MD Work Phone: Start: 05-17-2023 Us breast uni real t matteo with image limited Prudencio Pedro MD Work Phone: Start: 05-09-2023 Radex wrist complete minimum 3 views Bruce Wilson MD Work Phone: Start: 04-18-2023 Radex wrist complete minimum 3 views Aliyah Araujo PHOTOGRAPHY PROFESSOR.NURSING TEACHER Work Phone: Start: 04-13-2023 Radiologic exam ches t 2 views Prudencio Pedro MD Work Phone: Start: 03-30-2023 COVID & INFLUENZA A/ B NAAT, ROUTINE Rob Chirinos PHOTOGRAPHY PROFESSOR.NURSING TEACHER Work Phone: Start: 02-16-2023 Urnls dip stick/tabl et rgnt auto w/o microscopy Pam ESPITIAC Work Phone: Start: 02-16-2023 BACTERIAL VAGINOSIS NAAT Pam Garibay PA-C Work Phone: Start: 02-16-2023 Iadna trichomonas va ginalis amplified probe tech Pam Garibay PA-C Work Phone: Start: 10-19-2022 Us breast uni real t matteo with image limited Prudencio Pedro MD Work Phone: Start: 10-19-2022 Digital breast tomosynthesis unilateral Prudencio Pedro MD Work Phone: Start: 09-13-2022 End: 09-13-2022 Mammography Bulk Order Provider Start: 08-24-[address] Adonay Pedro Work Phone: Start: 07-20-2022 Brncdilat rspse spmt ry pre&post-brncdilat admn Prudencio Pedro MD Work Phone: Start: 06-29-2022 [facility] COVI D-19 BIVALENT BOOSTER VACCINE, AGE 12+ YR Prudencio Pedro MD Work Phone: Start: 06-29-2022 Urnls dip stick/tabl et rgnt auto w/o microscopy Prudencio Pedro MD Work Phone: Start: 03-18-2022 Plain chest X-ray Start: 01-26-2022 Radiologic exam ches t 2 views Diamond Ojedalogyumiko PHOTOGRAPHY PROFESSOR.NURSING TEACHER Work Phone: Start: 01-26-2022 Lipid 1996 panel - S david or Plasma Rob Chirinos PHOTOGRAPHY PROFESSOR.NURSING TEACHER Work Phone: Start: 05-10-2019 Adult depression scr eening assessment Prudencio Pedro MD Work Phone: Start: 03-12-2019 Mammography Segundo Pedro MD Work Phone: Viral antigen assay Plan of Treatment Date Care Activity Detail Author Start: 07-06-2032 Urine microalbumin profile [facility] Start: 03-14-2027 Diabetes Screening Diabetes Screenin g [facility] Start: 01-26-2027 Lipid 1996 panel - S david or Plasma Lipid Screening [facility] Start: 01-26-2027 Lipid panel Lipid Screening [facility] Start: 01-26-2027 LIPID SCREEN LIPID SCREEN [facility] Start: 08-02-2025 DIABETES SCREEN DIABETES SCREEN [facility] Start: 08-02-2025 Diabetes Screening Diabetes Screenin g [facility] Start: 05-13-2025 HIV viral load [facility] Start: 05-13-2025 Plain x-ray of pelvi s and lower extremity HIP, UNI W/ Pelvis 2-3 Views [facility] Start: 05-13-2025 Radiologic exam knee complete 4/more views Knee 4 or More Views [facility] Start: 05-13-2025 Patient encounter procedure Registered Clinical -Laboratory Work Phone: Start: 05-13-2025 End: 05-13-2025 Patient encounter procedure Left knee pain -[facility] Work Phone: Start: 04-10-2025 End: 04-10-2025 Patient encounter procedure 04/10/2025 1:30 PM EDT Office Visit Pulmonary Medicine [address] [place] [address] Ayad Metcalf APRN.NURSING TEACHER [address] [place] [address] COUGH F/U Pulmonary Medicine Comment on above: COUGH F/U Start: 03-21-2025 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 Visit Annual PCP Team Chronic Disease Visit [facility] Start: 03-19-2025 End: 03-19-2025 Patient encounter procedure 03/19/2025 8:30 AM EDT Office Visit Pulmonary Medicine [address] [place] [address] Ayad Metcalf, PHOTOGRAPHY PROFESSOR.NURSING TEACHER [address] [place] [address] Cough Pulmonary Medicine Comment on above: Cough Start: 03-18-2025 Influenza vaccination [facility] Start: 03-15-2025 [facility] Start: 03-08-2025 [facility] Start: 02-26-2025 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 Visit Annual PCP Team Chronic Disease Visit [facility] Start: 02-12-2025 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 Visit Annual PCP Team Chronic Disease Visit [facility] Start: 02-07-2025 [facility] Start: 02-05-2025 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 Visit Annual PCP Team Chronic Disease Visit [facility] Start: 01-29-2025 End: 01-29-2025 Patient encounter procedure Pulmonary Medicine Comment on above: 6 month f/u Start: 11-26-2024 [facility] Start: 11-13-2024 End: 11-13-2024 Patient encounter procedure Mammogram Comment on above: Abnormal mammogram [ R92.8] COMP Very very late CB due for bilat Start: 11-05-2024 Digital breast tomosynthesis bilateral BREAST TOMOSYNTHESIS BI [facility] Start: 10-04-2024 Patient referral [facility] Work Phone: Start: 10-04-2024 [facility] Start: 10-02-2024 End: 10-02-2024 ambulatory PULM LAB [facility] Comment on above: Pulmonary emphysema, unspecified emphysema type (HCC) [J43.9] Start: 09-26-2024 End: 09-26-2024 ambulatory [facility]ULM LAB [facility] Comment on above: Pulmonary emphysema, unspecified emphysema type (HCC) [J43.9] Start: 09-25-2024 [facility] Start: 09-25-2024 Basic metabolic pane l calcium total METABOLIC PANEL TOTAL CA [facility] Start: 09-25-2024 Blood count complete automated COMPLETE CBC AUTOMATED [facility] Start: 09-25-2024 Collection venous bl ood venipuncture REILLY VENOUS BLD VENIPUNCTURE [facility] Start: 09-25-2024 Cyanocobalamin vitam in b-12 VITAMIN B-12 [facility] Start: 09-25-2024 Dxa bone density henok dy 1/> sites axial skel DXA BONE DENSITY AXIAL [facility] Start: 09-25-2024 Iadna hiv-1 quant & reverse bill recapitulation clerk HIV-1 QUANT&REVRSE TRNSCRPJ [facility] Start: 09-25-2024 T cells absolute cd4 count T CELL ABSOLUTE COUNT [facility] Start: 09-25-2024 DXA Bone [Mass/Area] Bone density [facility] Start: 09-18-2024 End: 09-18-2024 Patient encounter procedure Mammogram Comment on above: ANALIA DIAGNOSTIC BILAT ERAL COMP VERY LATE 6 MO FU RIGHT/DUE FOR SHARMIN Start: 09-07-2024 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 Visit Annual PCP Team Chronic Disease Visit [facility] Start: 09-07-2024 Covid-19 Vaccine () Covid-19 Vaccine () [facility] Comment on above: Postponed from 03/18 (Declined at this time) Start: 09-07-2024 Depression Screening Depression Scre ening [facility] Start: 09-07-2024 End: 09-07-2024 Patient encounter procedure 09/07/2024 10:00 AM EST Office Visit [facility] [place] [address] [place] [address] Prudencio Pedro MD [address] [place] [address] Annual Exam/colonoscopy due LS [facility] [place] Comment on above: Annual Exam/colonosc opy due LS Start: 08-14-2024 End: 08-14-2024 Patient encounter procedure 08/14/2024 8:00 AM EST Office Visit Pulmonary Medicine [address] [place] [address] Ayad Metcalf, PHOTOGRAPHY PROFESSOR.NURSING TEACHER [address] [place] [address] Follow up Pulmonary Medicine Comment on above: Follow up Start: 08-01-2024 [facility] Start: 07-27-2024 End: 07-27-2024 Patient encounter procedure 07/27/2024 1:00 PM EST Office Visit Pulmonary Medicine [address] [place], [place] [id number] Ayad Metcalf APRN.NURSING TEACHER [address] [place] [address] Follow up Pulmonary Medicine Comment on above: Follow up Start: 07-04-2024 End: 07-04-2024 Patient encounter procedure 07/04/2024 3:30 PM EST Office Visit Pulmonary Medicine [address] [place] [address] Stephenie Arrieta, PA-C [address] [facility] [place] [address] 8 mo fu Pulmonary Medicine Comment on above: 8 mo fu Start: 05-01-2024 End: 05-01-2024 Patient encounter procedure 05/01/2024 11:40 AM EDT Office Visit [facility] [place] [address] [place] [address] Prudencio Pedro MD [address] [place] [address] 2 month follow up [facility] [place] Comment on above: 2 month follow up Start: 04-18-2024 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 Visit Annual PCP Team Chronic Disease Visit [facility] Start: 03-28-2024 End: 03-28-2024 Patient encounter procedure 03/28/2024 8:40 AM EDT Office Visit [facility] [place] [address] [place] [address] Prudencio Pedro MD [address] [place] [address] Pre Op [facility] [place] Comment on above: Pre Op Start: 03-18-2024 Covid-19 Vaccine ( season) Covid-19 Vaccine ( season) [facility] Start: 03-18-2024 Covid-19 Vaccine ( season) Covid-19 Vaccine ( season) [facility] Start: 03-18-2024 Influenza vaccination [facility] Start: 03-14-2024 End: 06-13-2024 CBC W Auto Differential panel - Blood [facility] Work Phone: Comment on above: Expected: 03/14/2024 , Expires: 06/13/2024 Start: 03-14-2024 End: 06-13-2024 Comprehensive metabolic 2000 panel - Serum or Plasma [facility] Comment on above: Expected: 03/14/2024 , Expires: 06/13/2024 Start: 03-12-2024 HPV TESTING HPV TESTING [facility] Start: 03-12-2024 PAP TESTING PAP TESTING [facility] Start: 03-12-2024 Screening for malign ant neoplasm of cervix [facility] Start: 03-02-2024 End: 03-02-2024 Patient encounter procedure 03/02/2024 9:40 AM EDT Office Visit [facility] [place] [address] [place] [id number] Prudencio Pedro MD [address] [place] [id number] wound dressing she can not do herself, to painful wet to dry dressing, and wound center closed until tuesday [facility] Comment on above: wound dressing she c an not do herself, to painful wet to dry dressing, and wound center closed until tuesday Start: 03-01-2024 ANNUAL PCP TEAM SNOW REMOVAL SUPERVISOR VIOLETTE DISEASE VISIT ANNUAL PCP TEAM CHRONIC DISEASE VISIT [facility] Start: 02-27-2024 End: 02-27-2024 Patient encounter procedure [facility] Comment on above: 2 week follow up/[facility] injury Hospital follow updi scharged 02/21/24 Start: 02-15-2024 End: 02-15-2024 Patient encounter procedure 02/15/2024 11:00 AM EDT Office Visit Pulmonary Medicine [address] [place] [id number] Stephenie Arrieta PA-C [address] [place] [id number] 3 mo fu Pulmonary Medicine Comment on above: 3 mo fu Start: 02-13-2024 End: 02-13-2024 Patient encounter procedure 02/13/2024 9:00 AM EDT Office Visit [facility] [place] [address] [place] [address] PodDiamond del toro APRN.NURSING TEACHER [address] [place] [address] follow up foot from 02/05 [facility] [place] Comment on above: follow up foot from 02/05 Start: 01-15-2024 Influenza vaccination Influenza Vacc ine (#1) [facility] Comment on above: Postponed from 03/18 (Declined at this time) Start: 11-22-2023 End: 11-22-2023 Patient encounter procedure Mammogram Comment on above: Comp- bilateral pt d ue for her screening also 6 mo call back from 05/18/2023 6 mo call back from 05/18/2023 Start: 11-18-2023 ANNUAL PCP TEAM SNOW REMOVAL SUPERVISOR VIOLETTE DISEASE VISIT ANNUAL PCP TEAM CHRONIC DISEASE VISIT [facility] Start: 11-14-2023 End: 11-14-2023 Patient encounter procedure 11/14/2023 10:30 AM EDT Appointment Ambulatory Surgery [address] [place] [address] Oskar Talyor MD [address] [place] [address] Screening for colon cancer [Z12.11] Ambulatory Surgery Comment on above: Screening for colon cancer [Z12.11] Start: 09-13-2023 Mammography [facility] Start: 09-13-2023 Screening for malign ant neoplasm of breast Mammogram Screening [facility] Start: 09-02-2023 ANNUAL PCP TEAM SNOW REMOVAL SUPERVISOR VIOLETTE DISEASE VISIT ANNUAL PCP TEAM CHRONIC DISEASE VISIT [facility] Start: 07-18-2023 Behavioral Health Screening Behavioral Health Screening [facility] Start: 07-18-2023 Depression Assessment Depression Ass essment [facility] Start: 07-18-2023 zzBehavioral Health Screening zzBehavioral Health Screening [facility] Start: 04-20-2023 End: 11-18-2023 ANALIA DIAGNOSTIC RIGHT ANALIA DIAGNOSTIC RIGHT Radiology Routine Abnormal mammogram Expected: 04/20/2023, Expires: 11/18/2023 [facility] Work Phone: Comment on above: Expected: 04/20/2023 , Expires: 11/18/2023 Start: 04-20-2023 End: 11-18-2023 US BREAST LTD RIGHT US BREAST LTD RIGHT Radiology Routine Abnormal mammogram Expected: 04/20/2023, Expires: 11/18/2023 [facility] Work Phone: Comment on above: Expected: 04/20/2023 , Expires: 11/18/2023 Start: 03-18-2023 Covid-19 Vaccine () Covid-19 Vaccine () [facility] Start: 03-18-2023 Influenza vaccination [facility] Start: 02-16-2023 End: 04-18-2023 Bacteria identified in Urine by Culture [facility] Work Phone: Comment on above: Expected: 02/16/2023 , Expires: 04/18/2023 Start: 11-17-2022 End: 01-17-2023 25-hydroxyvitamin D3 [Mass/volume] in Serum or Plasma [facility] Work Phone: Comment on above: Expected: 11/17/2022 , Expires: 01/17/2023 Start: 09-07-2022 End: 09-21-2022 Influenza virus A and B RNA and SARS-CoV-2 (COVID-19) N gene panel - Respiratory specimen by TESHA with probe detection [facility] Work Phone: Comment on above: Expected: 09/07/2022 , Expires: 09/21/2022 Start: 08-25-2022 Patient referral [facility] Work Phone: Start: 08-24-2022 COVID-19 VACCINE (6 - Pfizer risk series) COVID-19 VACCINE (6 - Pfizer risk series) [facility] Start: 08-04-2022 End: 10-04-2022 25-hydroxyvitamin D3 [Mass/volume] in Serum or Plasma VITAMIN D 25 HYDROXY Lab Routine Vitamin D deficiency Expected: 08/04/2022, Expires: 10/04/2022 [facility] Work Phone: Comment on above: Expected: 08/04/2022 , Expires: 10/04/2022 Start: 08-02-2022 End: 10-02-2022 25-hydroxyvitamin D3 [Mass/volume] in Serum or Plasma [facility] Work Phone: Comment on above: Expected: 08/02/2022 , Expires: 10/02/2022 Start: 08-02-2022 End: 10-02-2022 Comprehensive metabolic 2000 panel - Serum or Plasma [facility] Work Phone: Comment on above: Expected: 08/02/2022 , Expires: 10/02/2022 Start: 08-02-2022 End: 10-02-2022 Ferritin [Mass/volume] in Serum or Plasma [facility] Work Phone: Comment on above: Expected: 08/02/2022 , Expires: 10/02/2022 Start: 08-02-2022 End: 10-02-2022 Hemoglobin A1c in Blood [facility] Work Phone: Comment on above: Expected: 08/02/2022 , Expires: 10/02/2022 Start: 08-02-2022 End: 10-02-2022 Hepatitis C virus Ab [Presence] in Serum [facility] Work Phone: Comment on above: Expected: 08/02/2022 , Expires: 10/02/2022 Start: 08-02-2022 End: 10-02-2022 Iron and Iron binding capacity panel - Serum or Plasma [facility] Work Phone: Comment on above: Expected: 08/02/2022 , Expires: 10/02/2022 Start: 08-02-2022 End: 10-02-2022 Thyrotropin [Units/volume] in Serum or Plasma [facility] Work Phone: Comment on above: Expected: 08/02/2022 , Expires: 10/02/2022 Start: 07-18-2022 DEPRESSION ASSESSMENT DEPRESSION ASS ESSMENT [facility] Start: 03-18-2022 Influenza vaccination INFLUENZA (#1) [facility] Start: 01-26-2022 Procedure [facility] Work Phone: Start: 01-24-2022 COVID-19 VACCINE (5 - Booster for Pfizer series) COVID-19 VACCINE (5 - Booster for Pfizer series) [facility] Start: 11-19-2021 COVID-19 VACCINE (5 - Booster for Pfizer series) COVID-19 VACCINE (5 - Booster for Pfizer series) [facility] Start: 07-18-2021 DEPRESSION ASSESSMENT DEPRESSION ASS ESSMENT [facility] Start: 04-24-2021 PNEUMOCOCCAL (3 - PP SV23 if available, else PCV20) PNEUMOCOCCAL (3 - PPSV23 if available, else PCV20) [facility] Start: 04-24-2021 PNEUMOCOCCAL (3 - PP SV23 or PCV20) PNEUMOCOCCAL (3 - PPSV23 or PCV20) [facility] Start: 05-10-2020 Adult depression screening assessment DEPRESSION SCREENING [facility] Start: 03-12-2020 Mammography MAMMOGRAM [facility] Start: 03-12-2020 Screening for malign ant neoplasm of cervix Cervical Cancer Screening [facility] Start: 01-08-2018 Influenza vaccination LUNG CANCER SC REENING [facility] Start: 01-08-2018 Screening for malign ant neoplasm of lung Lung Cancer Screening [facility] Start: 01-08-2013 COLOGUARD (FIT-DNA) COLOGUARD (FIT-D NA) [facility] Start: 01-08-2013 Colonoscopy COLONOSCOPY [facility] Start: 01-08-2013 COLORECTAL CANCER SCREENING COLORECTAL CANCER SCREENING [facility] Start: 01-08-[address] COLONOGRAPHY [facility] Start: 01-08-2013 DIABETES SCREEN DIABETES SCREEN [facility] Start: 01-08-2013 FECAL OCCULT BLOOD FECAL OCCULT BLOO D [facility] Start: 01-08-2013 LIPID SCREEN LIPID SCREEN [facility] Start: 01-08-2013 Screening for malign ant neoplasm of colon [facility] Start: 01-08-2013 SIGMOIDOSCOPY SIGMOIDOSCOPY [facility] Start: 01-08-1998 Zoledronic acid therapy ALPHA- 1 ANTITRYPSIN DEFICIENCY SCREENING [facility] Start: 01-08-1987 HEPATITIS A (1 of 2 - Risk 2-dose series) HEPATITIS A (1 of 2 - Risk 2-dose series) [facility] Start: 01-08-1987 Hepatitis A Vaccine (1 of 2 - Risk 2-dose series) Hepatitis A Vaccine (1 of 2 - Risk 2-dose series) [facility] Start: 01-08-1987 HEPATITIS B (1 of 3 - Risk 3-dose series) HEPATITIS B (1 of 3 - Risk 3-dose series) [facility] Start: 01-08-1987 Hepatitis B Vaccine (1 of 3 - 19+ 3-dose series) Hepatitis B Vaccine (1 of 3 - 19+ 3-dose series) [facility] Start: 01-08-1987 SHINGRIX VACCINE (1 of 2) SHINGRIX VACCINE (1 of 2) [facility] Start: 01-08-1987 Urine microalbumin profile DTAP,TDAP,TD (1 - Tdap) [facility] Start: 01-08-1986 Depression Screening Depression Scre ening [facility] Start: 01-08-1986 HEPATITIS C SCREENING HEPATITIS C SC REENING [facility] Start: 01-08-1986 MMR (1 of 2 - Risk 2-dose series) MMR (1 of 2 - Risk 2-dose series) [facility] Start: 01-08-1973 COVID-19 VACCINE (#1) COVID-19 VACCI NE (#1) [facility] Start: 01-08-1970 MENINGOCOCCAL CONJUG ATE (1 - Risk 2-dose series) MENINGOCOCCAL CONJUGATE (1 - Risk 2-dose series) [facility] Start: 01-08-1970 Meningococcal Conjug ate Vaccine (1 - Risk 2-dose series) Meningococcal Conjugate Vaccine (1 - Risk 2-dose series) [facility] Start: 01-08-1969 HEPATITIS A (1 of 2 - Risk 2-dose series) HEPATITIS A (1 of 2 - Risk 2-dose series) [facility] Start: 1970 MENINGOCOCCAL CONJUG ATE (1 - Risk start 2-23 months series) MENINGOCOCCAL CONJUGATE (1 - Risk start 2-23 months series) [facility] Start: 1970 HEPATITIS B (1 of 3 - 3-dose series) HEPATITIS B (1 of 3 - 3-dose series) [facility] Start: 1970 Hepatitis B Vaccine (1 of 3 - 3-dose series) Hepatitis B Vaccine (1 of 3 - 3-dose series) [facility] Bacteria identified in Urine by Culture BACTERIAL CULTURE, URINE Microbiology Routine Urinary frequency 07/31/2024 9:42 AM EST [facility] BACTERIAL VAGINOSIS AMPLIFICATION BACTERIAL VAGINOSIS AMPLIFICATION Lab Routine Vaginal discharge 08/09/2022 1:42 PM [facility] Work Phone: BACTERIAL VAGINOSIS NAAT BACTERI AL VAGINOSIS NAAT Lab Routine Vaginal discharge 07/31/2024 9:42 AM [facility] Banana IgE Ab [Units/volume] in Serum [facility] Basophil count [facility] Basophil percent differential count [facility] Beef IgE Ab [Units/volume] in Serum [facility] DESTINEE / TRICHOMONA S AMPLIFICATION DESTINEE / TRICHOMONAS AMPLIFICATION Microbiology Routine Vaginal discharge 08/09/2022 1:42 PM EST [facility] Work Phone: DESTINEE/TRICHOMONAS NAAT DESTINEE /TRICHOMONAS NAAT Lab Routine Vaginal discharge 07/31/2024 9:42 AM [facility] Work Phone: CD3+CD4+ (T4 helper) cells [#/volume] in Blood [facility] Chlamydia trachomatis+Neisseria gonorrhoeae DNA [Presence] in Unspecified specimen by TESHA with probe detection GC/CHLAMYDIA DNA DET Lab Routine Vaginal discharge 08/09/2022 1:42 PM EST [facility] Work Phone: Chocolate IgE Ab [Units/volume] in Serum [facility] Cobalamin (Vitamin B 12) [Mass/volume] in Serum or Plasma [facility] Codfish IgE Ab [Units/volume] in Serum [facility] COLOGUARD COLOGUARD Lab Ro utine Screening for colon cancer Ordered: 08/02/2022 [facility] Work Phone: Comment on above: Ordered: 08/02/2022 [place] IgE Ab [Units/volume] in Serum [facility] COVID & INFLUENZA A/ B & RSV PCR, ROUTINE COVID & INFLUENZA A/B & RSV PCR, ROUTINE Microbiology Routine Viral URI with cough COPD with exacerbation (HCC) Suspected COVID-19 virus infection 03/20/2024 10:23 AM EDT [facility] Work Phone: COVID & INFLUENZA A/ B & RSV PCR, ROUTINE COVID & INFLUENZA A/B & RSV PCR, ROUTINE Microbiology Routine Respiratory infection Ordered: 05/27/2024 [facility] Work Phone: Comment on above: Ordered: 05/27/2024 COVID & INFLUENZA A/ B & RSV PCR, ROUTINE COVID & INFLUENZA A/B & RSV PCR, ROUTINE Microbiology Routine URI, acute Ordered: 09/27/2024 [facility] Work Phone: Comment on above: Ordered: 09/27/2024 Cow milk IgE Ab [Units/volume] in Serum [facility] CT Unspecified body region WO contrast [facility] ECG COMPLETE [facility] Work Phone: Comment on above: Ordered: 03/21/2024 Eosinophil percent differential count [facility] Eosinophils [#/volum e] in Blood [facility] Erythrocyte mean corpuscular volume determination [facility] Food RAST [facility] Granulocyte percent differential count [facility] Hematocrit [Volume Fraction] of Blood [facility] Hemoglobin [Mass/vol ume] in Blood [facility] Hemoglobin distribut ion, width determination [facility] Hemoglobin.gastroint conner nal.lower [Presence] in Stool by Immunoassay FECAL OCCULT BLOOD TEST Lab Routine Encounter for screening fecal occult blood testing Ordered: 08/18/2022 [facility] Work Phone: Comment on above: Ordered: 08/18/2022 HIV 1 RNA [#/volume] (viral load) in Unspecified specimen by TESHA with probe detection [facility] Work Phone: HIV 1 RNA [#/volume] (viral load) in Unspecified specimen by TESHA with probe detection [facility] HIV 1 RNA [#/volume] (viral load) in Unspecified specimen by TESHA with probe detection [facility] HIV 1 RNA [Log #/vol ume] (viral load) in Unspecified specimen by TESHA with probe detection [facility] Work Phone: HIV 1 RNA [Log #/vol ume] (viral load) in Unspecified specimen by TESHA with probe detection [facility] HIV 1 RNA [Log #/vol ume] (viral load) in Unspecified specimen by TESHA with probe detection [facility] End: 08-02-2023 HOME SLEEP APNEA TEST (HSAT) HOME SLEEP APNEA TEST (HSAT) Procedures Routine Fatigue, unspecified type Daytime somnolence 1 Occurrences starting 08/02/2022 until 08/02/2023 [facility] Work Phone: Comment on above: 1 Occurrences starti ng 08/02/2022 until 08/02/2023 Immature granulocyte s [#/volume] in Blood [facility] Influenza virus A an d B RNA and SARS-CoV-2 (COVID-19) N gene panel - Respiratory specimen by TESHA with probe detection COVID WITH FLUA+B, ROUTINE Microbiology Routine Suspected COVID-19 virus infection Ordered: 02/18/2022 [facility] Work Phone: Comment on above: Ordered: 02/18/2022 Influenza virus A an d B RNA and SARS-CoV-2 (COVID-19) N gene panel - Respiratory specimen by TESHA with probe detection COVID WITH FLUA+B, ROUTINE Microbiology Routine Symptoms of upper respiratory infection (URI) Cough, unspecified type 04/09/2022 12:10 PM EDT [facility] Work Phone: Leukocytes [#/volume ] in Blood [facility] End: 03-20-2023 LUNG VOLUMES LUNG VOLUMES PFT Routine Persistent cough Tobacco use 1 Occurrences starting 02/18/2022 until 03/20/2023 [facility] Work Phone: Comment on above: 1 Occurrences starti ng 02/18/2022 until 03/20/2023 End: 09-21-2025 LUNG VOLUMES LUNG VOLUMES PFT Routine Pulmonary emphysema, unspecified emphysema type (HCC) 1 Occurrences starting 08/22/2024 until 09/21/2025 [facility] Comment on above: 1 Occurrences starti ng 08/22/2024 until 09/21/2025 Lymphocyte count [facility] Lymphocyte percent differential count [facility] End: 06-16-2024 ANALIA DIAGNOSTIC RIGHT ANALIA DIAGNOSTIC RIGHT Radiology Routine Abnormal mammogram 1 Occurrences starting 05/18/2023 until 06/16/2024 [facility] Work Phone: Comment on above: 1 Occurrences starti ng 05/18/2023 until 06/16/2024 Mean corpuscular hemoglobin concentration determination [facility] Mean corpuscular hemoglobin determination [facility] End: 11-30-2024 MG Breast - bilateral Diagnostic ANALIA DIAGNOSTIC BILATERAL Radiology Routine Abnormal mammogram 1 Occurrences starting 11/01/2023 until 11/30/2024 [facility] Work Phone: Comment on above: 1 Occurrences starti ng 11/01/2023 until 11/30/2024 MG Breast - bilatera l Screening [facility] End: 11-17-2024 MG Breast Screening ANALIA SCREENING Radiology Routine Encounter for screening mammogram for breast cancer 1 Occurrences starting 10/19/2023 until 11/17/2024 [facility] Work Phone: Comment on above: 1 Occurrences starti ng 10/19/2023 until 11/17/2024 Monocyte count [facility] Monocyte percent differential count [facility] Neutrophil count [facility] Neutrophil percent differential count [facility] Nucleated red blood cell count procedure [facility] Patient Education [facility] Work Phone: Patient referral [facility] Work Phone: Peanut IgE Ab [Units/volume] in Serum [facility] Percentage CD4 (T4 cells) count [facility] Platelet count [facility] Pork IgE Ab [Units/volume] in Serum [facility] Procedure [facility] Work Phone: PT ED OBSTETRICS & GYNECOLOGY PT ED OBSTETRICS & GYNECOLOGY Other 07/30/2022 [facility] Work Phone: End: 09-25-2023 Radiologic exam chest 2 views XR CHEST 2V FRONTAL/LAT Radiology Routine Chronic obstructive pulmonary disease, unspecified COPD type (HCC) 1 Occurrences starting 08/27/2022 until 09/25/2023 [facility] Work Phone: Comment on above: 1 Occurrences starti ng 08/27/2022 until 09/25/2023 Red blood cell count [facility] Reticulocyte percent count [facility] [place] IgE Ab [Units/volume] in Serum [facility] SARS-CoV-2 (COVID-19 ) RNA [Presence] in Respiratory specimen by TESHA with probe detection 2019 CORONAVIRUS Microbiology Routine Symptoms of upper respiratory infection (URI) Cough, unspecified type Ordered: 04/09/2022 [facility] Work Phone: Comment on above: Ordered: 04/09/2022 End: 09-07-2024 Screening colonoscopy COLONOSCOPY SCREENING Endoscopy Routine Screening for colon cancer 1 Occurrences starting 09/07/2023 until 09/07/2024 [facility] Work Phone: Comment on above: 1 Occurrences starti ng 09/07/2023 until 09/07/2024 End: 02-19-2023 Screening mammography bi 2-view breast inc cad ANALIA SCREENING Radiology Routine Encounter for screening mammogram for breast cancer 1 Occurrences starting 01/20/2022 until 02/19/2023 [facility] Work Phone: Comment on above: 1 Occurrences starti ng 01/20/2022 until 02/19/2023 Shrimp IgE Ab [Units/volume] in Serum [facility] [place]oy[place] IgE Ab [Units/volume] in Serum [facility] End: 03-20-2023 SPIROMETRY - BASELINE AND POST DILATOR SPIROMETRY - BASELINE AND POST DILATOR PFT Routine Persistent cough Tobacco use 1 Occurrences starting 02/18/2022 until 03/20/2023 [facility] Work Phone: Comment on above: 1 Occurrences starti ng 02/18/2022 until 03/20/2023 End: 09-25-2023 SPIROMETRY WITH DILATOR IF OBSTRUCTED SPIROMETRY WITH DILATOR IF OBSTRUCTED PFT Routine Chronic obstructive pulmonary disease, unspecified COPD type (HCC) 1 Occurrences starting 08/27/2022 until 09/25/2023 [facility] Work Phone: Comment on above: 1 Occurrences starti ng 08/27/2022 until 09/25/2023 End: 04-12-2024 SPIROMETRY WITH DILATOR IF OBSTRUCTED SPIROMETRY WITH DILATOR IF OBSTRUCTED PFT Routine Centrilobular emphysema (HCC) 1 Occurrences starting 03/14/2023 until 04/12/2024 [facility] Work Phone: Comment on above: 1 Occurrences starti ng 03/14/2023 until 04/12/2024 SPIROMETRY WITH DILA TOR IF OBSTRUCTED SPIROMETRY WITH DILATOR IF OBSTRUCTED PFT Routine Centrilobular emphysema (HCC) 11/09/2023 9:58 AM EDT [facility] Work Phone: End: 09-21-2025 SPIROMETRY WITH DILATOR IF OBSTRUCTED SPIROMETRY WITH DILATOR IF OBSTRUCTED PFT Routine Pulmonary emphysema, unspecified emphysema type (HCC) 1 Occurrences starting 08/22/2024 until 09/21/2025 [facility] Work Phone: Comment on above: 1 Occurrences starti ng 08/22/2024 until 09/21/2025 Tuna IgE Ab [Units/volume] in Serum [facility] US Abdomen limited [facility] End: 06-16-2024 US BREAST LTD RIGHT US BREAST LTD RIGHT Radiology Routine Abnormal mammogram 1 Occurrences starting 05/18/2023 until 06/16/2024 [facility] Work Phone: Comment on above: 1 Occurrences starti ng 05/18/2023 until 06/16/2024 Wheat IgE Ab [Units/volume] in Serum [facility] Whole Egg IgE Ab [Units/volume] in Serum [facility] Immunizations Immunization Date Immunization Notes Care Provider Melita harris 04-16-2024 influenza, seasonal, injectable, preservative free Dr. Fina Iraheta MD Work Phone: [facility] 05-02-2023 influenza, injectabl e, quadrivalent, preservative free Dr. Fina Iraheta MD Work Phone: [facility] 08-02-2022 pneumococcal (PCV20) vaccine, 20 valent (PREVNAR 20) Diamond Bright PHOTOGRAPHY PROFESSOR.NURSING TEACHER Work Phone: [facility] 08-02-2022 pneumococcal Conjuga te, unspecified formulation Diamond Bright PHOTOGRAPHY PROFESSOR.NURSING TEACHER Work Phone: [facility] Work Phone: 07-06-2022 tetanus toxoid, redu maximus diphtheria toxoid, and acellular pertussis vaccine, adsorbed Chantel Pablo PHOTOGRAPHY PROFESSOR.NURSING TEACHER Work Phone: [facility] Work Phone: 06-29-2022 COVID-19 booster vaccine, age 12+ yr, bivalent (PFIZER-BIONTECH) Prudencio Pedro MD Work Phone: [facility] 05-28-2022 influenza, injectabl e, quadrivalent, preservative free Kathleen Maurice PHOTOGRAPHY PROFESSOR.NURSING TEACHER Work Phone: [facility] 05-28-2022 influenza virus vaccine, unspecified formulation Rob Chirinos PHOTOGRAPHY PROFESSOR.NURSING TEACHER Work Phone: [facility] 09-24-2021 Covid (Pfizer) Dr. Fina Iraheta MD Work Phone: [facility] 04-22-2021 influenza, injectabl e, quadrivalent, preservative free Kathleen Maurice PHOTOGRAPHY PROFESSOR.NURSING TEACHER Work Phone: [facility] 03-18-2021 Covid (Pfizer) Dr. Fina Iraheta MD Work Phone: [facility] 10-22-2020 Covid (Pfizer) Dr. Fina Iraheta MD Work Phone: [facility] 10-02-2020 Covid (Pfizer) Dr. Fina Iraheta MD Work Phone: [facility] 04-24-2020 influenza, injectabl e, quadrivalent, preservative free Prudencio Pedro MD Work Phone: [facility] Work Phone: 04-24-2020 pneumococcal conjuga te vaccine, 13 valent Prudencio Pedro MD Work Phone: [facility] Work Phone: 05-10-2019 influenza, injectabl e, quadrivalent, contains preservative Prudencio Pedro MD Work Phone: [facility] 05-10-2019 influenza, injectabl e, quadrivalent, preservative free Dr. Fina Iraheta MD Work Phone: [facility] 12-26-2014 pneumococcal polysaccharide vaccine, 23 valent Prudencio Pedro MD Work Phone: [facility] Payers Date Payer Category Payer Unknown [id number] 2024 Self-pay [id number] 2022 Unknown [id number] 2017 Medicaid [employer] [place] [id number] 2017-Present [phone] [address] [address] [place] [address] Medicaid [id number] 2017 Medicaid [id number]. [id number] Unknown [id number] [id number]2 Unknown [id number] 2.16.840.1.573723.3.579.2.462 Unknown [id number] 2.16.840.1.347311.3.579.2.462 Unknown [id number] 2.16.840.1.769539.3.579.2.462 Unknown [id number] 2.16.840.1.785401.3.579.2.462 Unknown [id number] 2.16.840.1.869575.3.579.2.462 Unknown [id number] 2.16.840.1.961901.3.579.2.462 Unknown [id number] 2.16.840.1.063533.3.579.2.462 Unknown [id number] 2.16.840.1.857764.3.579.2.462 Unknown [id number] 2.16.840.1.945840.3.579.2.462 Unknown [id number] 2.16.840.1.226609.3.579.2.462 Unknown [id number] 2.16.840.1.189535.3.579.2.462 Unknown [id number] 2.16.840.1.760463.3.579.2.462 Unknown [id number] 2.16.840.1.539467.3.579.2.462 Unknown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 clinic recommends and wether or not they will complete a letter for her. Abigail William LPN [facility]08-23-2024 Miscellaneous Notes* Telephone Encounter - Abigail William LPN - 03/09/2024 2:30 PM EDT Phoned patient and updated her on provider's message. Patient voiced understanding. She stated she will let our office know what wound clinic recommends and wether or not they will complete a letter for her. Abigail William LPN * Telephone Encounter - Prudencio Pedro MD - 03/09/2024 2:22 PM EDT I am out of the office this next week. I spoke with the nurse and wound care is planning on a woundgraft. I would have her discuss when she will be able to return to work with them next week since they are managing her wound. * Telephone Encounter - Abigail William LPN - 03/09/2024 2:16 PM EDT Records obtained. Please advise. Abigail William LPN * Telephone Encounter - Prudencio Pedro MD - 03/08/2024 12:16 PM EDT Can we get records from wound care this week to see how wound is progressing and check their recommendations? * Telephone Encounter - Coretta Fierro RN - 03/08/2024 11:22 AM EDT Patient reports will be seeing the [facility] Center for her wound on 03/14/24. Patient reports Dr. Pedro provided a work letter for her to be off of work until 03/16/24. The letter also indicated that this date could change. Patient asking if Dr. Pedro would write a letter for her to be off of work for additional time after 03/16. Requesting to be off of work until 04/05/24 and return on 04/06/24. Please call patient with reply. Thank you. documented in this encounterUniversity [facility]als [facility]08-23-[facility]24 Telephone encounter Note * Telephone Encounter - Prudencio Pedro MD - 03/09/2024 2:22 PM EDT I am out of the office this next week. I spoke with the nurse and wound care is planning on a woundgraft. I would have her discuss when she will be able to return to work with them next week since they are managing her wound. [facility]08-23-[facility]24 Telephone encounter Note* Telephone Encounter - Abigail William LPN - 03/09/2024 2:16 PM EDT Records obtained. Please advise. Abigail William LPN [facility]08-22-2024 Telephone encounter Note* Telephone Encounter - Prudencio Pedro MD - 03/08/2024 12:16 PM EDT Can we get records from wound care this week to see how wound is progressing and check their recommendations? [facility]08-22-[facility]24 Telephone encounter Note* Telephone Encounter - Coretta Fierro RN - 03/08/2024 11:22 AM EDT Patient reports will be seeing the W[facility] Center for her wound on 03/14/24. Patient reports Dr. Pedro provided a work letter for her to be off of work until 03/16/24. The letter also indicated that this date could change. Patient asking if Dr. Pedro would write a letter for her to be off of work for additional time after 03/16. Requesting to be off of work until 04/05/24 and return on 04/06/24. Please call patient with reply. Thank you. [facility]08-19-2024 Telephone encounter Note* Telephone Encounter - Abigail William LPN - 03/05/2024 2:52 PM EDT Phoned patient and reviewed message with her. She voiced understanding. Advised her that she could be seen in EC between providers if needed. She voiced understanding and stated Maybe it's a blessing I'm getting a new doctor. Abigail William LPN [facility]08-19-2024 Miscellaneous Notes* Telephone Encounter - Abigail William LPN - 03/05/2024 2:52 PM EDT Phoned patient and reviewed message with her. She voiced understanding. Advised her that she could be seen in EC between providers if needed. She voiced understanding and stated Maybe it's a blessing I'm getting a new doctor. Abigail William LPN * Telephone Encounter - Prudencio Pedro MD - 03/05/2024 2:09 PM EDT I will continue to provide her care for the next 30 days. Hopefully her wound will be well on the way to healed by the end of that time period and it will not be an issue. * Telephone Encounter - Abigail William LPN - 03/05/2024 1:42 PM EDT Phoned patient and she reports she has an appointment to establish with Dr Iraheta 05/18/24. Patientasking if Dr Pedro marifer continue to handle her [facility] claim? I advised the only thing I can advise ofis Dr Pedro will continue to provider care and refills on non-controlled medications until 30 days is up. * Telephone Encounter - Zeny Aquino RN - 03/05/2024 1:34 PM EDT Patient calls back and is requesting Abigail to give her a call back. States that if Abigail does not call her back then she will come to office to talk to Abigail. Patient also upset because of previous charting and accusing this nurse of costing her her doctor. Patient then hung up. Zeny Aquino RN * Telephone Encounter - Prudencio Pedro MD - 03/05/2024 10:16 AM EDT Reviewed. * Telephone Encounter - Abigail William LPN - 03/05/2024 9:31 AM EDT Phoned patient and reviewed both messages with her. Patient stated I told Zeny I was mad whenI said that, I don't know why she told him that. I explained to her that we document what is said in case anything should ever arise. Explained to patient that she had stated she was going to theo during one of her conversations with one of the nurses. She stated Well it was because I was mad and in pain! Explained to patient that you can't just say things in anger and expect people to know whether you mean it or not. She then stated So your telling me I don't have a doctor anymore and I'm going to of HIV? I stated Nova, I never once said that. I said Dr Pedro will continue to pro vide care and non controlled medications for the next 30 days while you look for a new physician. She asked if she could see Diamond. I advised her No, she works with Dr Pedro and she is not a physician. Advised her no physician at [facility] is taking new patients other than Dr Pedro at this time. Advised her so stary calling around to offices to see who is taking new patients. Toldher to try [facility], [facility] and [facility] as a few suggestions. Encouraged patient to begin looking as soon as possible to avoid a gap in her care. Sheasked what do I do if I don't have a doctor in 30 days? Reminded patient Dr Pedro will provide c are for 30 days and it is her responsibility to find a provider to take over her care after that. She said Ok and hung up. Abigail William LPN * Telephone Encounter - Prudencio Pedro MD - 03/05/2024 7:41 AM EDT Reviewed wound care's instructions. They noted It was educated to the patient that there may be some discomfort when changing her dressing and she is to get the gauze moist before removing which shewas understanding of. Did talk with patient that if she is having continued pain with the dressing changes she can go back to the Silvadene cream, adaptic and dry sterile dressing. I would have her follow these recommendations as they discussed with her and keep f/u with wound care. She may continue to use tramadol as prescribed for debridement while seeking new PCP. * Telephone Encounter - Abigail William LPN - 03/05/2024 7:12 AM EDT Records obtained and provided to Dr Pedro. Abigail William LPN * Telephone Encounter - Prudencio Pedro MD - 03/03/2024 4:33 PM EDT Reviewed. I will remove myself as her PCP. We will continue to provide her care for an additional 30 days while she is finding a new PCP and refill her non- controlled substances. She was given pain medication at her appointment for debridement as she had requested. As I noted previously, she was not complaining of pain that was uncontrolled when using tylenol at her appointment. She was also instructed to reach out to wound care about her pain during dressing changes to seeif there was something she could due to reduce her pain, like soaking the dressing. Please obtain records from wound care's appointment last week so we can review their recommendations. * Telephone Encounter - Zeny Aquino RN - 03/02/2024 12:17 PM EDT Patient calls and is upset that she has to do dressing changes and upset that she is not getting any pain medications. Patient states that she is filing a grievance against Dr. Pedro regarding thisand states that she wants to find a new PCP. Advised patient that if she did this she would not be able to see Dr. Pedro anymore and she would be removed as his patient. Patient apologizing and states that she really does not want to not have Dr. Pedro as PCP. Patient states that she is frustrated and mad. Patient states that Dr. Pedro has taken good care of her with her other diagnosis. Patient states that she is worried that her leg is going to become infected. Patient states that itlooks a little red but she also put betadine on wound. Patient denies that would is warm or hot to touch. Advised patient that she need to contact Wound Center about wound. Patient is frustrated because she has left many messages and they have not contacted her back. Patient states that she has wound center appointment on 03/07/2024. Patient states that she does not know where to go. Patient had also gone to [facility] which told her that they could not see her. Zeny Aquino RN documented in this encounterUniversity Hospitals [facility]08-19-2024 Telephone encounter Note * Telephone Encounter - Prudencio Pedro MD - 03/05/2024 2:09 PM EDT I will continue to provide her care for the next 30 days. Hopefully her wound will be well on the way to healed by the end of that time period and it will not be an issue. [facility]08-19-20[facility] Telephone encounter Note* Telephone Encounter - Abigail William LPN - 03/05/2024 1:42 PM EDT Phoned patient and she reports she has an appointment to establish with Dr Iraheta 05/18/24. Patientasking if Dr Pedro marifer continue to handle her [facility] claim? I advised the only thing I can advise ofis Dr Pedro will continue to provider care and refills on non-controlled medications until 30 days is up. [facility]08-19-2024 Telephone encounter Note* Telephone Encounter - Zeny Aquino RN - 03/05/2024 1:34 PM EDT Patient calls back and is requesting Abigail to give her a call back. States that if Abigail does not call her back then she will come to office to talk to Abigail. Patient also upset because of previous charting and accusing this nurse of costing her her doctor. Patient then hung up. Zeny Aquino, RN [facility]08-19-2024 Telephone encounter Note* Telephone Encounter - Prudencio Pedro MD - 03/05/2024 10:16 AM EDT Reviewed. [facility]08-19-[facility] Telephone encounter Note* Telephone Encounter - Abigail William LPN - 03/05/2024 9:31 AM EDT Phoned patient and reviewed both messages with her. Patient stated I told Zeny I was mad whenI said that, I don't know why she told him that. I explained to her that we document what is said in case anything should ever arise. Explained to patient that she had stated she was going to theo during one of her conversations with one of the nurses. She stated Well it was because I was mad and in pain! Explained to patient that you can't just say things in anger and expect people to know whether you mean it or not. She then stated So your telling me I don't have a doctor anymore and I'm going to of HIV? I stated Nova, I never once said that. I said Dr Pedro will continue to pro vide care and non controlled medications for the next 30 days while you look for a new physician. She asked if she could see Diamond. I advised her No, she works with Dr Pedro and she is not a physician. Advised her no physician at [facility] is taking new patients other than Dr Pedro at this time. Advised her so stary calling around to offices to see who is taking new patients. Toldher to try [facility], [facility] and [facility] as a few suggestions. Encouraged patient to begin looking as soon as possible to avoid a gap in her care. Sheasked what do I do if I don't have a doctor in 30 days? Reminded patient Dr Pedro will provide c are for 30 days and it is her responsibility to find a provider to take over her care after that. She said Ok and hung up. Abigail William LPN [facility]08-19-2024 Telephone encounter Note* Telephone Encounter - Prudencio Pedro MD - 03/05/2024 7:41 AM EDT Reviewed wound care's instructions. They noted It was educated to the patient that there may be some discomfort when changing her dressing and she is to get the gauze moist before removing which shewas understanding of. Did talk with patient that if she is having continued pain with the dressing changes she can go back to the Silvadene cream, adaptic and dry sterile dressing. I would have her follow these recommendations as they discussed with her and keep f/u with wound care. She may continue to use tramadol as prescribed for debridement while seeking new PCP. [facility]08-19-2024 Telephone encounter Note* Telephone Encounter - Abigail William LPN - 03/05/2024 7:12 AM EDT Records obtained and provided to Dr Pedro. Abigail William LPN [facility]08-17-2024 Telephone encounter Note* Telephone Encounter - Prudencio Pedro MD - 03/03/2024 4:33 PM EDT Reviewed. I will remove myself as her PCP. We will continue to provide her care for an additional 30 days while she is finding a new PCP and refill her non- controlled substances. She was given pain medication at her appointment for debridement as she had requested. As I noted previously, she was not complaining of pain that was uncontrolled when using tylenol at her appointment. She was also instructed to reach out to wound care about her pain during dressing changes to seeif there was something she could due to reduce her pain, like soaking the dressing. Please obtain records from wound care's appointment last week so we can review their recommendations. [facility]08-16-2024 Telephone encounter Note* Telephone Encounter - Abigail William LPN - 03/02/2024 2:08 PM EDT Phoned patient's [facility] atty's office and requested [employer] 31 form as to date nothing had been received. Abigail William LPN [facility]08-16-2024 Telephone encounter Note* Telephone Encounter - Zeny Aquino RN - 03/02/2024 12:17 PM EDT Patient calls and is upset that she has to do dressing changes and upset that she is not getting any pain medications. Patient states that she is filing a grievance against Dr. Pedro regarding thisand states that she wants to find a new PCP. Advised patient that if she did this she would not be able to see Dr. Pedro anymore and she would be removed as his patient. Patient apologizing and states that she really does not want to not have Dr. Pedro as PCP. Patient states that she is frustrated and mad. Patient states that Dr. Pedro has taken good care of her with her other diagnosis. Patient states that she is worried that her leg is going to become infected. Patient states that itlooks a little red but she also put betadine on wound. Patient denies that would is warm or hot to touch. Advised patient that she need to contact Wound Center about wound. Patient is frustrated because she has left many messages and they have not contacted her back. Patient states that she has wound center appointment on 03/07/2024. Patient states that she does not know where to go. Patient had also gone to [facility] which told her that they could not see her. Zeny Aquino RN [facility]08-16-2024 Telephone encounter Note* Telephone Encounter - Prudencio Pedro MD - 03/02/2024 11:45 AM EDT Reviewed. Emeirta notified. [facility]08-16-2024 Miscellaneous Notes* Telephone Encounter - Prudencio Pedro MD - 03/02/2024 11:45 AM EDT Reviewed. Emerita notified. * Telephone Encounter - Zeny Aquino RN - 03/02/2024 11:34 AM EDT Called Wound Center left message for Wound Center to call patient regarding dressing changes since patient has so many questions about dressing changes. Zeny Aquino RN * Telephone Encounter - Venecia Davies LPN - 03/02/2024 11:30 AM EDT Pt returned call and message below given. Instructed to contact Wound Center. Pt states I am suing someone pt hung up after this statement. Venecia Davies LPN * Telephone Encounter - Shraddha Cuevas LPN - 03/02/2024 11:20 AM EDT Patient telephoned, message left to call office back for update. Shraddha Cuevas LPN * Telephone Encounter - Prudencio Pedro MD - 03/02/2024 9:58 AM EDT I answered this question already in a previous message. She needs to reach out to wound care and see if she is allowed to soak dressing before removal to reduce pain. We discussed this in office and she was not complaining of pain with dressing changes then. I will not be calling in more narcotic medications for her. * Telephone Encounter - Zeny Aquino RN - 03/02/2024 9:27 AM EDT Patient calls and states that she had changed her dressing yesterday. Patient states that she was in excruciating pain for 5 hours. Patient had called nurse triage last night and was told to take 2 Advil at a time. Patient state that this upsets upsets her stomach. Patient states that she needs stronger for the pain. Asking provider if he can prescribe Tramadol for her to take prior to dressing changes? Patient has to do her dressing daily. Patient's pharmacy is [facility]. Please review and advise, Zeny Aquino RN documented in this encounterUniversity Hospitals [facility]08-16-2024 Telephone encounter Note * Telephone Encounter - Zeny Aquino RN - 03/02/2024 11:34 AM EDT Called Wound Center left message for Wound Center to call patient regarding dressing changes since patient has so many questions about dressing changes. Zeny Aquino RN [facility]08-16-2024 Telephone encounter Note* Telephone Encounter - Venecia Davies LPN - 03/02/2024 11:30 AM EDT Pt returned call and message below given. Instructed to contact Wound Center. Pt states I am suing someone pt hung up after this statement. Venecia Davies LPN [facility]08-16-2024 Telephone encounter Note* Telephone Encounter - Shraddha Cuevas LPN - 03/02/2024 11:20 AM EDT Patient telephoned, message left to call office back for update. Shraddha Cuevas LPN [facility]08-16-2024 Telephone encounter Note* Telephone Encounter - Prudencio Pedro MD - 03/02/2024 9:58 AM EDT I answered this question already in a previous message. She needs to reach out to wound care and see if she is allowed to soak dressing before removal to reduce pain. We discussed this in office and she was not complaining of pain with dressing changes then. I will not be calling in more narcotic medications for her. [facility]08-16-2024 Telephone encounter Note* Telephone Encounter - Zeny Aquino RN - 03/02/2024 9:27 AM EDT Patient calls and states that she had changed her dressing yesterday. Patient states that she was in excruciating pain for 5 hours. Patient had called nurse triage last night and was told to take 2 Advil at a time. Patient state that this upsets upsets her stomach. Patient states that she needs stronger for the pain. Asking provider if he can prescribe Tramadol for her to take prior to dressing changes? Patient has to do her dressing daily. Patient's pharmacy is [facility]. Please review and advise, Zeny Aquino RN [facility]08-15-2024 Telephone encounter Note* Telephone Encounter - Jody Garcia RN - 03/01/2024 8:38 PM EDT Reason for Call: right foot burn, pain with dressing change Outcome: Home care recommendation given. Care advice reviewed and voiced understanding. Advised to call back and update PCP when office open or send a [employer] message with update. Reason for Disposition Minor thermal burn Answer Assessment - Initial Assessment Questions 1. ONSET: 02/02 2. LOCATION: right foot pain / burn wound 3. BURN SIZE: entire top of foot 4. SEVERITY OF THE BURN: hot water burn, directly through shoe at work 5. MECHANISM: see above 6. PAIN: 7-8/10 Advil 1 tablet 3pm Advil 1 tablet 8pm 7. INHALATION INJURY:denies 8. OTHER SYMPTOMS: pain after changing dressing using Betadine solution Protocols used: Low - [id number] [facility]08-15-2024 Miscellaneous Notes* Telephone Encounter - Jody Garcia RN - 03/01/2024 8:38 PM EDT Reason for Call: right foot burn, pain with dressing change Outcome: Home care recommendation given. Care advice reviewed and voiced understanding. Advised to call back and update PCP when office open or send a [employer] message with update. Reason for Disposition Minor thermal burn Answer Assessment - Initial Assessment Questions 1. ONSET: 02/02 2. LOCATION: right foot pain / burn wound 3. BURN SIZE: entire top of foot 4. SEVERITY OF THE BURN: hot water burn, directly through shoe at work 5. MECHANISM: see above 6. PAIN: 7-8/10 Advil 1 tablet 3pm Advil 1 tablet 8pm 7. INHALATION INJURY:denies 8. OTHER SYMPTOMS: pain after changing dressing using Betadine solution Protocols used: Low - [id number] documented in this encounterUniversity Hospitals [facility]08-15-2024 Telephone encounter Note * Telephone Encounter - Zeny Aquino RN - 03/01/2024 1:54 PM EDT Patient called and notified of below. Patient unsure if she can do the dressing change on her own. Encouraged patient that she can do the dressing change that she just needs to follow the dressing change order. Patient reports that she has tried to call Wound Center today but they are closed till Tuesday. Patient voiced understanding. Zeny Aquino RN [place] [id number] Miscellaneous Notes* Telephone Encounter - Zeny Aquino RN - 03/01/2024 1:54 PM EDT Patient called and notified of below. Patient unsure if she can do the dressing change on her own. Encouraged patient that she can do the dressing change that she just needs to follow the dressing change order. Patient reports that she has tried to call Wound Center today but they are closed till Tuesday. Patient voiced understanding. Zeny Aquino RN * Telephone Encounter - Prudencio Pedro MD - 03/01/2024 1:08 PM EDT Patient needs to contact wound care for concerns regarding dressing changes. * Telephone Encounter - Zeny Aquino RN - 03/01/2024 10:45 AM EDT Patient had called [facility] because she as going to pass due to changing her dressing. Patient was seen in [facility] care and was told that they could not help her change dressing due to workman's comp. Called and spoke with patient. Patient states that wound center had started her on new dressing change of betadine and placing bandage directly on wound. Patient states that was told to just rip the bandage off. Patient states that she tried to take off bandage but could not do it because she is too worried about the pain. Patient states that she would pass out due to pain. Advised patient that if dressing seems to dry and that it is sticking to wound then she could moisten the dressing with normal saline and then slowly pull of the bandage. Patient would then follow wound center dressing changes. Patient voiced understanding. Patient state that she will do that and see how it goes. Zeny Aquino RN documented in this encounterUniversity Hospitals [facility]08-15-2024 Telephone encounter Note * Telephone Encounter - Prudencio Pedro MD - 03/01/2024 1:08 PM EDT Patient needs to contact wound care for concerns regarding dressing changes. [facility]08-15-2024 Telephone encounter Note* Telephone Encounter - Zeny Aquino RN - 03/01/2024 10:45 AM EDT Patient had called [facility] because she as going to pass due to changing her dressing. Patient was seen in [facility] care and was told that they could not help her change dressing due to workman's comp. Called and spoke with patient. Patient states that wound center had started her on new dressing change of betadine and placing bandage directly on wound. Patient states that was told to just rip the bandage off. Patient states that she tried to take off bandage but could not do it because she is too worried about the pain. Patient states that she would pass out due to pain. Advised patient that if dressing seems to dry and that it is sticking to wound then she could moisten the dressing with normal saline and then slowly pull of the bandage. Patient would then follow wound center dressing changes. Patient voiced understanding. Patient state that she will do that and see how it goes. Zeny Aquino RN [facility]08-15-2024 Telephone encounter Note* Telephone Encounter - Prudencio Pedro MD - 03/01/2024 8:15 AM EDT Will await forms. Continue use of tylenol PRN for pain and use tramadol for debridement like we discussed. [facility]08-15-2024 History of Present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 [facility]08-03-2024 Miscellaneous Notes* Telephone Encounter - Prudencio Pedro MD - 02/18/2024 12:18 PM EDT Reviewed. * Telephone Encounter - Ileana Barreto LPN - 02/17/2024 3:43 PM EDT Images from the original note were not included. * Telephone Encounter - Ileana Barreto LPN - 02/17/2024 2:29 PM EDT Covermymeds PA completed for workers comp for TRACY VAZQUEZ (Quesada: [id number]) - [id number] SM 8 Hour Pain Relief 650MG er tablets status: Sent to Plan Created: February 14, 2024 [id number] Sent: February 17, 2024 documented in this encounterUniversity Hospitals Tripoint Medical Center08-02-2024 Telephone encounter Note * Telephone Encounter - Trista Centeno RN - 02/17/2024 5:51 PM EDT Patient calling with medication/refill: Patient/caregiver requesting refill of Silvadene be called to [facility] [place] pharmacy at [phone]., Allergies reviewed: Yes, Medication and Dosage reviewed: Yes/No, Do you have enough medication to last until the office reopens? Yes. , and Have you contacted your pharmacy to ask for enough medication to get by until the office reopens? No. Patientdenies any new or worsening symptoms of which a provider is not aware:Yes Patient aware that she has a refill available. Patient encouraged to talk with Pharmacy about application is last tube was to be applied to affected area two times a day for 21 days. Patient reports the wound is too large for this little tube and it only lasts a couple of days. GO TO THE EMERGENCY ROOM OR CALL 911 IF: * You develop any new symptoms * Your condition worsens * You are concerned or anxious about your condition for any other reason. If you have any questions, you can call Nurse consultants intern back. Trista Centeno RN [facility]08-02-2024 Miscellaneous Notes* Telephone Encounter - Trista Centeno RN - 02/17/2024 5:51 PM EDT Patient calling with medication/refill: Patient/caregiver requesting refill of Silvadene be called to [facility] [place] pharmacy at [phone]., Allergies reviewed: Yes, Medication and Dosage reviewed: Yes/No, Do you have enough medication to last until the office reopens? Yes. , and Have you contacted your pharmacy to ask for enough medication to get by until the office reopens? No. Patientdenies any new or worsening symptoms of which a provider is not aware:Yes Patient aware that she has a refill available. Patient encouraged to talk with Pharmacy about application is last tube was to be applied to affected area two times a day for 21 days. Patient reports the wound is too large for this little tube and it only lasts a couple of days. GO TO THE EMERGENCY ROOM OR CALL 911 IF: * You develop any new symptoms * Your condition worsens * You are concerned or anxious about your condition for any other reason. If you have any questions, you can call Nurse consultants intern back. Trista Centeno RN documented in this encounterUniversity Hospitals Tripoint Medical Center08-02-2024 Telephone encounter Note * Telephone Encounter - Ileana Barreto LPN - 02/17/2024 3:43 PM EDT Images from the original note were not included. [facility]08-02-2024 Telephone encounter Note* Telephone Encounter - Ileana Barreto LPN - 02/17/2024 2:29 PM EDT Covermymeds PA completed for workers comp for TRACY VAZQUEZ (Quesada: [id number]) - [id number] SM 8 Hour Pain Relief 650MG er tablets status: Sent to Plan Created: February 14, 2024 [id number] Sent: February 17, 2024 [facility]08-02-2024 Telephone encounter Note* Telephone Encounter - Abigail William LPN - 02/17/2024 11:36 AM EDT As of 11:36 am we have received nothing via fax in regards to BWC/C9 form. Will continue to monitorfaxes for information. Abigail William LPN [facility]08-02-2024 Telephone encounter Note* Telephone Encounter - Zeny Aquino RN - 02/17/2024 9:35 AM EDT Patient calling and states that she had talked to someone from [employer] around 6 pm last evening. Patient reports that she was told that they were going to be faxing over approval to Wound Center. Patient reports that she had spoke with Sudha from [facility] this morning who reported that she did not get any fax from [employer] yet. Patient asking if office received information? Zeny Aquino RN [facility]08-02-2024 Telephone encounter Note* Telephone Encounter - Zeny Aquino RN - 02/17/2024 9:32 AM EDT Patient calls and notified of this. Patient voiced understanding. Zeny Aquino RN [facility]08-02-2024 Miscellaneous Notes* Telephone Encounter - Zeny Aquino RN - 02/17/2024 9:32 AM EDT Patient calls and notified of this. Patient voiced understanding. Zeny Aquino RN * Telephone Encounter - Prudencio Pedro MD - 02/16/2024 12:37 PM EDT Yes, she can take up to 1,000 mg of tylenol 3 times per day. * Telephone Encounter - Zeny Aquino RN - 02/16/2024 12:34 PM EDT Patient calls and states that she knows that provider sent in prescription for 650 mg tablets of Tylenol. Patient states that insurance will not cover this. Patient has 500 mg Tylenol over the counter. Patient asking if she can take 2 of these? Please review and advise, Zeny Aquino RN documented in this encounterUniversity Hospitals Tripoint Medical Center08-01-2024 Telephone encounter Note * Telephone Encounter - Venecia Davies LPN - 02/16/2024 2:18 PM EDT Sudha with the wound Center calling to check and see if we received a copy of the C-9 approval. Informed Sudha we have not received back yet. Venecia Davies LPN [facility]08-01-2024 Telephone encounter Note* Telephone Encounter - Prudencio Pedro MD - 02/16/2024 12:37 PM EDT Yes, she can take up to 1,000 mg of tylenol 3 times per day. [facility]08-01-2024 Telephone encounter Note* Telephone Encounter - Zeny Aquino RN - 02/16/2024 12:34 PM EDT Patient calls and states that she knows that provider sent in prescription for 650 mg tablets of Tylenol. Patient states that insurance will not cover this. Patient has 500 mg Tylenol over the counter. Patient asking if she can take 2 of these? Please review and advise, Zeny Aquino RN [facility]08-01-2024 Telephone encounter Note* Telephone Encounter - Gely Estrada RN - 02/16/2024 12:22 PM EDT Patient calls to verify the forms were faxed to Mathieu and the Wound Center so she can reschedulethe cancelled appointment with the Wound Center from yesterday. Gely Estrada RN [facility]07-31-2024 Telephone encounter Note* Telephone Encounter - Prudencio Pedro MD - 02/15/2024 1:56 PM EDT I have updated her chart with this information. Her forms were completed. [facility]07-31-[facility]24 Telephone encounter Note* Telephone Encounter - Shraddha Cuevas LPN - 02/15/2024 1:29 PM EDT Patient telephoned. States this happened at [employer]. She does not work at [employer]. Shraddha Cuevas LPN [facility]07-31-2024 Telephone encounter Note* Telephone Encounter - Prudencio Pedro MD - 02/15/2024 1:19 PM EDT Patient reported her injury occurred at [facility]. Is this not correct? If so, are her duties there the same? [facility]07-31-2024 Telephone encounter Note* Telephone Encounter - Cesia Gaxiola LPN - 02/15/2024 1:11 PM EDT Barbara psychiatric social worker stated that people to people is a good resource to help patient and she is goingto be calling them for assistance. Cesia Gaxiola LPN [facility]07-31-2024 Miscellaneous Notes* Telephone Encounter - Cesia Gaxiola LPN - 02/15/2024 1:11 PM EDT Barbara psychiatric social worker stated that people to people is a good resource to help patient and she is goingto be calling them for assistance. Cesia Gaxiola LPN * Telephone Encounter - Cesia Gaxiola LPN - 02/15/2024 12:39 PM EDT Patient notified of recommendations and patient stated that it is hard for her to afford to keep buying bandages. Advised to call people to people regarding drsgs. Also, sent a message to [place] psychiatric social worker about giving patient resources to help with purchasing bandages since insurance is not paying for these * Telephone Encounter - Prudencio Pedro MD - 02/15/2024 12:28 PM EDT She does not need to use this. I would recommend she continue the Silvadene and dressing changes asdiscussed in office. * Telephone Encounter - Abigail August LPN - 02/15/2024 10:07 AM EDT Pt is requesting an Rx for Advanced Wound Wash for burn on her foot, states it is the [facility] [place] brand. Wash is OTC but pt states she does not have any money to buy it & doesn't know when she'll get paid again. When call back is made to pt, please notify her that silvadene was already sent in to the pharmacy Please advise. Abigail August LPN documented in this encounterUniversity Hospitals Tripoint Medical Center07-31-2024 Telephone encounter Note * Telephone Encounter - Cesia Gaxiola LPN - 02/15/2024 12:39 PM EDT Patient notified of recommendations and patient stated that it is hard for her to afford to keep buying bandages. Advised to call people to people regarding drsgs. Also, sent a message to [place] psychiatric social worker about giving patient resources to help with purchasing bandages since insurance is not paying for these [facility]07-31-2024 Telephone encounter Note* Telephone Encounter - Prudencio Pedro MD - 02/15/2024 12:28 PM EDT She does not need to use this. I would recommend she continue the Silvadene and dressing changes asdiscussed in office. [facility]07-31-2024 Telephone encounter Note* Telephone Encounter - Mitzi Ibarra RN - 02/15/2024 11:14 AM EDT [employer] and [employer] office, states she is returning Abigail's call from yesterday. Advised per Abigail message, a request for explanation of job and duties so [employer]-14 form can be completed was needed from atty's office. 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 [facility]07-31-2024 Telephone encounter Note* Telephone Encounter - Abigail August LPN - 02/15/2024 10:07 AM EDT Pt is requesting an Rx for Advanced Wound Wash for burn on her foot, states it is the [facility] [place] brand. Wash is OTC but pt states she does not have any money to buy it & doesn't know when she'll get paid again. When call back is made to pt, please notify her that silvadene was already sent in to the pharmacy Please advise. Abigail August LPN [facility]07-31-2024 Telephone encounter Note* Telephone Encounter - Mitzi Ibarra RN - 02/15/2024 9:28 AM EDT Patient returned call and given provider's message below. Patient states she is aware of this. Patient reports C9 form needs to be faxed to attn: [facility] (ph# ). Phoned to get fax #. Recording states- First report of injury can be faxed to [phone], all other, fax to [phone]. [facility]07-31-2024 Telephone encounter Note* Telephone Encounter - Prudencio Pedro MD - 02/15/2024 8:17 AM EDT I completed her C9 form and it was faxed as noted in message below or in other TE. They need to approve her for wound care before she can go. [facility]07-31-2024 Telephone encounter Note* Telephone Encounter - Mitzi Ibarra RN - 02/15/2024 8:12 AM EDT Patient reports she is at the wound center, because she had a message on her phone last night telling her she had an appt with wound center this morning, but they are unable to see her b/c workmens comp has not been approved yet. Patient states her wound needs something done soon or it's going to get bad. Given messages below. Patient agreeable to try tylenol. Patient states she will call her power screwdriver operator for update on workmens comp. [facility]07-30-2024 Telephone encounter Note* Telephone Encounter - Prudencio Pedro MD - 02/14/2024 6:13 PM EDT Looks like she has been on tylenol CR in the past. Refill for this sent to her pharmacy. I would not have her take this at the same time as the [place] since they both contain tylenol. Let us know if pain is uncontrolled with this. 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 Patient voiced understanding and reports she will car pick up driver tomorrow morning due to already took [place] and doesn't want to drive. 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 Patient voiced understanding and reports she will car pick up driver tomorrow morning due to already took [place] and doesn't want to drive. Abigail William LPN * Telephone Encounter - Abigail William LPN - 02/14/2024 5:12 PM EDT Correct. Patient is right handed. Abigail William LPN * Telephone Encounter - Prudencio Pedro MD - 02/14/2024 5:02 PM EDT Letter printed and signed. Patient is right handed, correct? * Telephone Encounter - Mitzi Ibarra RN - 02/14/2024 11:26 AM EDT Phoned patient and given provider's message. Patient states she just needs a doctors excuse from pcp to let her lining caser know she cannot return to work.at this time. States it's really not about her rent assistance, it's about proof that she cannot return to work yet. * Telephone Encounter - Prudencio Pedro MD - 02/14/2024 10:59 AM EDT Typically there is paperwork that needs to be completed for rent assistance and a letter by itself would not be sufficient. She needs to have forms sent in for us to complete. * Telephone Encounter - Jason Boston RN - 02/14/2024 10:16 AM EDT Pt called in and reports she needs a letter from her PCP for her housing authority and lining caser to help get her rent for February as she has no money coming in. Pt reports Dr Pedro doesn'thave her returning to work until February 19 or probably later because she has a large burn. She states she isn't able to get [facility] the [facility] until the provider has the C-9 form done for Workers Comp. Pt states she has been having to spend her last paycheck on gauze wound dry cleaner presser/cream, non-stick pads. She reports she has all these receipts to bring to her power screwdriver operator. Pt is asking if providers office will call her so she can pick letter up once it has been written. * Telephone Encounter - Prudencio Pedro MD - 02/14/2024 8:01 AM EDT Reviewed and will complete. Please allow 5-7 business days. * Telephone Encounter - Abigail William LPN - 02/13/2024 11:52 AM EDT Type of form: [facility] Form received via walk in When form is completed, Fax form to [employer] [phone] Form has been forwarded to Physician Desk: Dr. Willis William LPN documented in this encounterUniversity Hospitals [facility]point [facility] Center07-30-2024 Telephone encounter Note * Telephone Encounter - Abigail William LPN - 02/14/2024 5:12 PM EDT Correct. Patient is right handed. Abigail William LPN [facility]07-30-2024 Telephone encounter Note* Telephone Encounter - Prudencio Pedro MD - 02/14/2024 5:02 PM EDT Letter printed and signed. Patient is right handed, correct? [facility]07-30-20[facility] Telephone encounter Note* Telephone Encounter - Abigail William LPN - 02/14/2024 4:53 PM EDT C9 form completed and due to multiple encounters unaware needed to go to [facility] to be filed. Sent C9 form to [facility] in error. Has since been routed to [facility] fax listed on C9 form. Abigail William LPN [facility]07-30-2024 Telephone encounter Note* Telephone Encounter - Coretta Fierro RN - 02/14/2024 4:50 PM EDT Sudha calling from [facility] and states they can not schedule pt for an appointment until they have an approved C-9 form. She states when it is approved, please fax it to them. FAX: [phone] For any questions, Sudha can be reached at [phone]. Coretta Fierro RN [facility]07-30-2024 Telephone encounter Note* Telephone Encounter - Shraddha Cuevas LPN - 02/14/2024 4:40 PM EDT Patient requesting OTC be prescribed for pain. Over the counters if a prescription is sent in she won't have to pay anything for them. Patient requesting if this can be done as she can not afford to buy OTC not prescribed. Shraddha Cuevas LPN [facility]07-30-2024 Telephone encounter Note* Telephone Encounter - Abigail William LPN - 02/14/2024 4:23 PM EDT Phoned patient and she is agreeable with OV 02/27/24 at 11am. She stated she is needing letter stating she is off until at least the 02/27/24 as current letter only says until 02/20/24. Patient advised PCP is aware of this but most important thing is getting her into wound clinic. Advised her C9 form being forwarded to [facility] wound clinic and her atty's office. Message left at atty's office requesting explanation of job and duties so [employer]-14 form can be completed as well. Abigail William LPN [facility]07-30-2024 Telephone encounter Note* Telephone Encounter - Prudencio Pedro MD - 02/14/2024 4:11 PM EDT I completed her C9 form. She needs OV with me 2 weeks from last OV with Diamond to recheck her foot. Future appointment should be with me for her [facility] claim. I do not have job description information for her [employer] 14 form. Can she or her employer fax this to our office? [facility]07-30-[facility] Telephone encounter Note* Telephone Encounter - Leda Burdick LPN - 02/14/2024 2:21 PM EDT Pt reports she is not taking any otc pain medication. Pt reports she was given [place] #16 at the ER and has 5 tabs left. Pt reports she needs C9 and letter for work manuel because she doesn't want to lose her job and house. Leda Burdick LPN [facility]07-30-2024 Telephone encounter Note* Telephone Encounter - Mitzi Ibarra, RN - 02/14/2024 11:26 AM EDT Phoned patient and given provider's message. Patient states she just needs a doctors excuse from pcp to let her lining caser know she cannot return to work.at this time. States it's really not about her rent assistance, it's about proof that she cannot return to work yet. [facility]-30-[facility] Telephone encounter Note* Telephone Encounter - Prudencio Pedro MD - 02/14/2024 11:18 AM EDT See update from Diamond. Is she taking anything OTC? [facility]07-30-2024 Telephone encounter Note* Telephone Encounter - Diamond Bright APRN.CNP - 02/14/2024 11:06 AM EDT She said she wasn't taking anything for pain because she did not like the way the pain medication made her feel. From what I recall she had not taken anything OTC. Diamond Bright APRN.NURSING TEACHER [facility]07-30-2024 Telephone encounter Note* Telephone Encounter - Prudencio Pedro MD - 02/14/2024 11:01 AM EDT Patient spoke with Diamond yesterday regarding her pain. Doesn't sound like she was taking the [place] regularly. Will forward to Diamond to review. Has patient taken anything OTC for pain? [facility]07-30-2024 Telephone encounter Note* Telephone Encounter - Prudencio Pedro MD - 02/14/2024 10:59 AM EDT Typically there is paperwork that needs to be completed for rent assistance and a letter by itself would not be sufficient. She needs to have forms sent in for us to complete. [facility]-30-[facility] Telephone encounter Note* Telephone Encounter - Jason Boston RN - 02/14/2024 10:16 AM EDT Pt called in and reports she needs a letter from her PCP for her housing authority and lining caser to help get her rent for February as she has no money coming in. Pt reports Dr Pedro doesn'thave her returning to work until February 19 or probably later because she has a large burn. She states she isn't able to get into the [facility] until the provider has the C-9 form done for Workers Comp. Pt states she has been having to spend her last paycheck on gauze wound dry cleaner presser/cream, non-stick pads. She reports she has all these receipts to bring to her power screwdriver operator. Pt is asking if providers office will call her so she can pick letter up once it has been written. [facility]07-30-2024 Telephone encounter Note* Telephone Encounter - Gely Estrada RN - 02/14/2024 9:13 AM EDT Patient calls back in to review below message. Reviewed. Patient asking what she is supposed to do about the pain. She reports that she only has 5 [place] left and she takes two a day for the pain and forgot to discuss at appointment yesterday. She reports the pain is unbearable and she is barely able to walk. Gely Estrada RN [facility]-30-2024 Telephone encounter Note* Telephone Encounter - Venecia Davies LPN - 02/14/2024 8:12 AM EDT Spoke with Sudha @ [facility] and they can not schedule pt for an apt till they have a copy of the C-9 form with approval. Once approved will need to be faxed to W[facility] Center. This is workers comp.Pt made aware of above. FAX: [phone] Venecia Davies LPN [facility]07-30-2024 Telephone encounter Note* Telephone Encounter - Prudencio Pedro MD - 02/14/2024 8:01 AM EDT Reviewed and will complete. Please allow 5-7 business days. [facility] [facility] Telephone encounter Note* Telephone Encounter - Venecia Davies LPN - 02/13/2024 4:34 PM EDT Spoke with pt and she wanted to make sure reason she can not return to work is she is not healed yet and has not seen the Wound Center yet. Venecia Davies LPN [facility]07-29-2024 Telephone encounter Note* Telephone Encounter - Zeny Aquino RN - 02/13/2024 4:19 PM EDT Patient calling back and asking if provider can write her a letter that would extend her time off of work longer than 02/20/2024. Patient did not say how long just that she needs to be off of work longer. Zeny Aquino RN [facility]07-29-2024 Telephone encounter Note* Telephone Encounter - Abigail William LPN - 02/13/2024 4:04 PM EDT C9 received and placed on provider's desk with [employer]-14 form. Abigail William LPN [facility]07-29-2024 Telephone encounter Note* Telephone Encounter - Abigail William LPN - 02/13/2024 3:20 PM EDT Contacted patient's [place] office and requested C9 form be forwarded to our office. [place] reports she will forward after completing their portion. Abigail William LPN [facility]07-29-2024 Telephone encounter Note* Telephone Encounter - Kelsey Helton - 02/13/2024 2:26 PM EDT Prescription Refill Information The patient has been identified by name and date of : Yes Caregiver verified no other encounters exist for this prescription request: Yes Caregiver confirmed with patient/requestor that no other refills are due, in the near future, with this provider at this time: Yes The last office visit in the department: 02-06-24 Does the patient have a future office visit with this provider/department: Yes Requested Prescriptions Pending Prescriptions Disp Refills silver sulfADIAZINE (SILVADENE) 1 % cream 50 g 1 Sig: Apply 1 application to affected area two times a day for 21 days. Patient asking for a bigger container of the medication. Kelsey Helton February 13, 2024 2:26 PM [facility]07-29-2024 Miscellaneous Notes* Telephone Encounter - Kelsey Helton - 02/13/2024 2:26 PM EDT Prescription Refill Information The patient has been identified by name and date of : Yes Caregiver verified no other encounters exist for this prescription request: Yes Caregiver confirmed with patient/requestor that no other refills are due, in the near future, with this provider at this time: Yes The last office visit in the department: 02-06-24 Does the patient have a future office visit with this provider/department: Yes Requested Prescriptions Pending Prescriptions Disp Refills silver sulfADIAZINE (SILVADENE) 1 % cream 50 g 1 Sig: Apply 1 application to affected area two times a day for 21 days. Patient asking for a bigger container of the medication. Kelsey Helton February 13, 2024 2:26 PM documented in this encounterUniversity Hospitals [facility]07-29-2024 Telephone encounter Note * Telephone Encounter - Prudencio Pedro MD - 02/13/2024 2:21 PM EDT She brought in [employer] 14 form. I do not have C9 form for her. She will need to get this from employer or traffic signal repairer for me to complete. [facility]07-29-2024 Telephone encounter Note* Telephone Encounter - Mitzi Ibarra RN - 02/13/2024 2:02 PM EDT Sudha- Wound Center [facility], reports patient wanted to schedule appt with them today for a wound on herright foot. Patient tells them it is workmens comp. Sudha reports they cannot see patient until pcp gets it approved through a C9 with workmens comp, for them to test and treat patient. [facility]07-29-2024 Telephone encounter Note* Telephone Encounter - Blanca Rojo LPN - 02/13/2024 2:02 PM EDT Sudha from [facility] Wound Center calling she received order but did not demographics or office visit notes faxed to [phone]. Printed what was requested and faxed. [facility]07-29-2024 Miscellaneous Notes* Telephone Encounter - Blanca Rojo LPN - 02/13/2024 2:02 PM EDT Sudha from [facility] W[facility] Center calling she received order but did not demographics or office visit notes faxed to [phone]. Printed what was requested and faxed. documented in this encounterUniversity Hospitals [facility] Center07-29-2024 Telephone encounter Note * Telephone Encounter - Abigail William LPN - 02/13/2024 11:52 AM EDT Type of form: [facility] Form received via walk in When form is completed, Fax form to [employer] [phone] Form has been forwarded to Physician Desk: Dr. Willis William LPN [facility]07-29-2024 Instructions* Patient Instructions* Diamond Bright APRN.CNP - 02/13/2024 9:05 AM EDT [facility] wound care will reach out to you today to schedule documented in this encounterUniversity Hospitals [facility]07-29-2024 History of Present illness Narrative* Diamond Bright APRN.CNP - 02/13/2024 8:46 AM EDT 02/13/2024 Patient presents with: Follow Up: Right foot wound follow up; has NOT seen wound care SUBJECTIVE: This is a 54 year old that is here today for Above Complaints. Had ER follow-up with PCP on 02/06/2024 for 1st and 2nd degree burn to right foot sustained while working at [employer]. Instructed on wound care at visit and referred to [facility] wound care. Since office visit has been washing twice a day with wound wash, applying Silvadene cream and wrapping. Reports she went to [facility] wound care center on Tuesday and was told they had not received referralyet. She is unsure if foot is infected or not. Denies fevers, chills, increasing redness, warmth, red streaking or purulent drainage. PAST MEDICAL HISTORY Diagnosis Date Allergies On immunotherapy Anxiety Brain aneurysm Reprots from taking LSD- no surgery for this Emphysema lung ([facility]) GERD (gastroesophageal reflux disease) Hepatitis B reports she is clear HIV (human immunodeficiency virus infection) ([facility]) [address] Dr[address] Mcdonald-ID Persistent cough 07/2022 Tobacco use disorder ALLERGIES House Dust Mite and Singulair [Montelukast] MEDICATIONS Current Outpatient Medications Medication Sig silver sulfADIAZINE (SILVADENE) 1 % cream Apply 1 application to affected area two times a day for 21 days. Non-Adherent Bandage 3 X 4 bndg Apply 2 application to affected area two times a day. HYDROcodone-acetaminophen (NORCO) 5-325 mg per tablet Take 1 tablet by mouth every 8 hours as needed for pain. Gauze Bandage bndg Apply 1 application to affected area two times a day. Adhesive Tape (PAPER TAPE) 1 X 10 -yard tape Apply 1 application to affected area two times a day. mupirocin (BACTROBAN) 2 % ointment Apply to affected area two times a day for 10 days. umeclidinium (INCRUSE ELLIPTA) 62.5 mcg/actuation inhaler Inhale 1 Puff as instructed once daily. guaiFENesin (MUCINEX) 600 mg 12 hr tablet Take 1 tablet by mouth two times a day. nicotine (NICODERM) 14 mg/24 hr Apply 1 Patch as directed every 24 hours. No smoking with patch. nicotine (NICODERM) 7 mg/24 hr Apply 1 Patch as directed every 24 hours for 14 days. nicotine (NICODERM) 21 mg/24 hr Apply 1 Patch as directed every 24 hours. Lactobacillus acidophilus (FLORAJEN ACIDOPHILUS) 20 billion cell capsule Take 1 capsule by mouth once daily. (Patient not taking: Reported on 11/09/2023) albuterol HFA (VENTOLIN HFA) 90 mcg/actuation inhaler Inhale 2 Puffs as instructed every 4 hours asneeded. cholecalciferol (VITAMIN D-3) 50 mcg (2,000 unit) tablet Take 1 tablet by mouth once daily. acetaminophen (TYLENOL 8 HOUR) 650 mg CR tablet Take 1 tablet by mouth every 8 hours as needed. qioklgivbkg-tffprkcnvyehz-qpzuvjvau alafenamide (BIKTARVY) 50-200-25 mg per tablet Take [...] and negative other than HPI. OBJECTIVE: BP 108/78 Pulse 111 Temp 36.5 C (97.7 F) Resp 18 SpO2 97% . Vital signs reviewed by this provider. APPEARANCE Well appearing, alert, in no acute distress, well-hydrated, well nourished. RIGHT FOOT: 2 nd degree burn encompassing dorsal foot extending to lateral ankle. Approximate 2 CM area of exposed dermis to upper dorsal area. Peeling skin around other areas. Small amount serous drainage on old dressing. Silvadene cream over entire wound. 2+ pedal pulse with cap refill WNL. Mild swelling to entire foot. No red streaking Meningococcal Conjugate Vaccine(1 - Risk 2-dose series) Never done Depression Screening Never done Hepatitis B Vaccine(1 of 3 - 19+ 3-dose series) Never done Hepatitis A Vaccine(1 of 2 - Risk 2-dose series) Never done Shingrix Vaccine(1 of 2) Never done Colorectal Cancer Screening Never done Lung Cancer Screening Never done Cervical Cancer Screening due on 03/12/2020 Mammogram Screening due on 09/13/2023 Covid-19 Vaccine(2022- season) due on 09/07/2024 Influenza Vaccine(1) due on 03/18/2024 Annual PCP Team Chronic Disease Visit due on 02/05/2025 Diabetes Screening due on 08/02/2025 Lipid Screening due on 01/26/2027 DTaP,Tdap,Td Vaccine(2 - Td or Tdap) due on 07/06/2032 Alpha-1 Antitrypsin Deficiency Screening Completed Spirometry Completed Hepatitis C Screening Completed Pneumococcal Vaccine Completed HPV Vaccine Aged Out MMR Vaccine Discontinued ASSESSMENT/PLAN: 1. Partial thickness burn of right foot, initial encounter - ICD9: 945.22, ICD10: T25.221A - call placed to [facility] wound care center- they say they have referral and will be calling patient to schedule this week - no signs or symptoms or infection - red flag symptoms discussed, verbalizes understanding - continue wound care as ordered and follow-up with wound care, to ER with red flag symptoms Diamond Bright APRN.NURSING TEACHER Prescription instructions reviewed with patient as applicable. Patient advised if symptoms do not improve or if symptoms worsen sooner, to contact their primary care physician. Potential red flag symptoms discussed with the patient. Reviewed appropriate action plan to take if red flag symptoms occur. Patient agreeable to treatment plan. Medical Decision Making: Problems: Moderate: Acute complicated injury Risk: Moderate: Moderate risk from testing/treatment Medical Decision Making Level: 4 - Moderate documented in this encounterUniversity Hospitals [facility] Center07-26-2024 Telephone encounter Note * Telephone Encounter - Zeny Aquino RN - 02/10/2024 12:43 PM EDT Patient calls and is asking where she is supposed to go for wound care. Patient notified that she is to go to [facility] Wound Center and she should call them to schedule. Patient voiced understanding. Zeny Aquino RN [facility]07-26-2024 Miscellaneous Notes* Telephone Encounter - Zeny Aquino RN - 02/10/2024 12:43 PM EDT Patient calls and is asking where she is supposed to go for wound care. Patient notified that she is to go to [facility] W[facility] Center and she should call them to schedule. Patient voiced understanding. Zeny Aquino RN * Telephone Encounter - Coretta Fierro RN - 02/10/2024 10:08 AM EDT Patient requesting her consult order to SKIN CARE TEAM be faxed to [facility]. Order has been faxed to [facility] Central Scheduling. Pt states she will contact [facility] later today to discuss appropriate scheduling of this. Coretta Fierro RN documented in this encounterUniversity Hospitals [facility] Center07-26-2024 Telephone encounter Note * Telephone Encounter - Margareth Maurice MA - 02/10/2024 11:47 AM EDT Prescription Refill Information The patient has been identified by name and date of : Yes Caregiver verified no other encounters exist for this prescription request: Yes Caregiver confirmed with patient/requestor that no other refills are due, in the near future, with this provider at this time: Yes The last office visit in the department: 01/2024 Does the patient have a future office visit with this provider/department: Yes 08/2024 Last refill: 02/06/2024 for foot injury. Patient has upcoming appointment 02/13/2024 for foot. Requested Prescriptions Pending Prescriptions Disp Refills silver sulfADIAZINE (SILVADENE) 1 % cream 50 g 1 Sig: Apply 1 application to affected area two times a day for 21 days. Non-Adherent Bandage 3 X 4 bndg 60 Each 1 Sig: Apply 2 application to affected area two times a day. Margareth Maurice MA February 10, 2024 11:47 AM [facility]07-26-2024 Miscellaneous Notes* Telephone Encounter - Margareth Maurice MA - 02/10/2024 11:47 AM EDT Prescription Refill Information The patient has been identified by name and date of : Yes Caregiver verified no other encounters exist for this prescription request: Yes Caregiver confirmed with patient/requestor that no other refills are due, in the near future, with this provider at this time: Yes The last office visit in the department: 01/2024 Does the patient have a future office visit with this provider/department: Yes 08/2024 Last refill: 02/06/2024 for foot injury. Patient has upcoming appointment 02/13/2024 for foot. Requested Prescriptions Pending Prescriptions Disp Refills silver sulfADIAZINE (SILVADENE) 1 % cream 50 g 1 Sig: Apply 1 application to affected area two times a day for 21 days. Non-Adherent Bandage 3 X 4 bndg 60 Each 1 Sig: Apply 2 application to affected area two times a day. Margareth Maurice MA February 10, 2024 11:47 AM * Telephone Encounter - Abigail Link - 02/10/2024 10:46 AM EDT Patient has been identified by name and date of : Yes Last office visit in this department: 02/06/2024 RX INSTRUCTIONS: Patient aware RX will be sent to pharmacy. No need to notify patient. Patient phones requesting refills as follows: Requested Prescriptions Pending Prescriptions Disp Refills silver sulfADIAZINE (SILVADENE) 1 % cream 50 g 1 Sig: Apply 1 application to affected area two times a day for 21 days. Please review and advise. Abigail Rich documented in this encounterUniversity Hospitals [facility] Center07-26-2024 Telephone encounter Note * Telephone Encounter - Abigail Link - 02/10/2024 10:46 AM EDT Patient has been identified by name and date of : Yes Last office visit in this department: 02/06/2024 RX INSTRUCTIONS: Patient aware RX will be sent to pharmacy. No need to notify patient. Patient phones requesting refills as follows: Requested Prescriptions Pending Prescriptions Disp Refills silver sulfADIAZINE (SILVADENE) 1 % cream 50 g 1 Sig: Apply 1 application to affected area two times a day for 21 days. Please review and advise. Abigail Rich [facility]07-26-2024 Telephone encounter Note* Telephone Encounter - Coretta Fierro RN - 02/10/2024 10:08 AM EDT Patient requesting her consult order to SKIN CARE TEAM be faxed to [facility]. Order has been faxed to [facility] Central Scheduling. Pt states she will contact [facility] later today to discuss appropriate scheduling of this. Coretta Fierro RN [facility]07-22-2024 Telephone encounter Note* Telephone Encounter - Abigail William LPN - 02/06/2024 3:33 PM EDT faxed to [facility]. Abigail William LPN [facility]07-22-2024 Miscellaneous Notes* Telephone Encounter - Abigail William LPN - 02/06/2024 3:33 PM EDT faxed to [facility]. Abigail William LPN * Telephone Encounter - Prudencio Pedro MD - 02/06/2024 3:01 PM EDT Completed. * Telephone Encounter - Abigail William LPN - 02/06/2024 2:38 PM EDT Form returned to PCP for completion. Abigail William LPN * Telephone Encounter - Leda Burdick LPN - 02/06/2024 1:17 PM EDT Steph with [facility] reports she received the form back in regards to pt's burn. Steph reports she see that signed, dated, and put NPI but the middle part needs filled out too. Steph needs to know the size of the low and the stages. Steph is asking for provider to fill out the middle section of form and re-fax. Leda Burdick LPN * Telephone Encounter - Prudencio Pedro MD - 02/06/2024 12:21 PM EDT I reordered the Silvadene. Everything else I sent during her office visit to [facility]. * Telephone Encounter - Zeny Aquino RN - 02/06/2024 12:04 PM EDT Patient calls and is asking if provider can send order to [facility] for gauze, tape, and dressing? Patient also states that she needs prescription for silvadene. Please review and advise, Zeny Aquino RN documented in this encounterUniversity Hospitals [facility] Center07-22-2024 Telephone encounter Note * Telephone Encounter - Prudencio Pedro MD - 02/06/2024 3:01 PM EDT Completed. [facility]07-22-2024 Telephone encounter Note* Telephone Encounter - Abigail William LPN - 02/06/2024 2:38 PM EDT Form returned to PCP for completion. Abigail William LPN [facility]07-22-2024 Telephone encounter Note* Telephone Encounter - Leda Burdick LPN - 02/06/2024 1:17 PM EDT Steph with [facility] reports she received the form back in regards to pt's burn. Steph reports she see that dr signed, dated, and put NPI but the middle part needs filled out too. Steph needs to know the size of the low and the stages. Steph is asking for provider to fill out the middle section of form and re-fax. Leda Burdick LPN [facility]07-22-2024 Telephone encounter Note* Telephone Encounter - Prudencio Pedro MD - 02/06/2024 12:21 PM EDT I reordered the Silvadene. Everything else I sent during her office visit to [facility]. [facility]07-22-2024 Telephone encounter Note* Telephone Encounter - Zeny Aquino RN - 02/06/2024 12:04 PM EDT Patient calls and is asking if provider can send order to [facility] for gauze, tape, and dressing? Patient also states that she needs prescription for silvadene. Please review and advise, Zeny Aquino RN [facility]07-22-2024 History of Present illness Narrative* Prudencio Pedro MD - 02/06/2024 9:56 AM EDT Chief Complaint Patient presents with: ER F/U: Patient has no dressing supplies and reports no money HPI Tracy Vazquez is a 54 year old female who presents here today for Above Complaints. Worker'scomp. Patient evalutaed at [facility] ED on for c/o 1st and 2nd degree burn to right foot which she sustained while working at [employer]. Was carrying pot of water and burned her foot. On their exam top of the right nakle and proximal half to 2/3 of the right foot had 1st and primarily 2nd degree low withblistering. Given IV dilaudid for pain. Wounds cleaned and silver sulfadiazine applied and dressed.Discharged home with motrin and 16 pills of norco for pain. Outpatient f/u with wound care recommended. Since discharge, patient states that she has been changing her dressings 2-3 times daily and then she spray the wound with wound wash from [facility] and applies silver sulfadiazine BID. States that blisters on the top of her foot have ruptured. Not taking [place] and is not having much pain. Wrapping with gauze and wearing a bag around her foot instead of wearing a shoe. Denies fever/chills, spreading erythema, purulent drainage, warmth to touch, streaking. Past medical history, appointments, medications, allergies reviewed. Previous Medical History PAST MEDICAL HISTORY Diagnosis Date Allergies On immunotherapy Anxiety Brain aneurysm Reprots from taking LSD- no surgery for this Emphysema lung (HCC) GERD (gastroesophageal reflux disease) Hepatitis B reports she is clear HIV (human immunodeficiency virus infection) ([facility]) [address] Dr[address] Mcdonald-ID Persistent cough 07/2022 Tobacco [...] on File Prior to Visit Medication Sig HYDROcodone-acetaminophen (NORCO) 5-325 mg per tablet Take 1 tablet by mouth every 8 hours as needed for pain. jbntzrdrezv-uygoroylxcsbe-vmjcvgzbr alafenamide (BIKTARVY) 50-200-25 mg per tablet Take 1 tablet bymouth once daily. umeclidinium (INCRUSE ELLIPTA) 62.5 mcg/actuation inhaler Inhale 1 Puff as instructed once daily. guaiFENesin (MUCINEX) 600 mg 12 hr tablet Take 1 tablet by mouth two times a day. nicotine (NICODERM) 14 mg/24 hr Apply 1 Patch as directed every 24 hours. No smoking with patch. nicotine (NICODERM) 7 mg/24 hr Apply 1 Patch as directed every 24 hours for 14 days. nicotine (NICODERM) 21 mg/24 hr Apply 1 Patch as directed every 24 hours. Lactobacillus acidophilus (FLORAJEN ACIDOPHILUS) 20 billion cell capsule Take 1 capsule by mouth once daily. (Patient not taking: Reported on 11/09/2023) albuterol HFA (VENTOLIN HFA) 90 mcg/actuation inhaler Inhale 2 Puffs as instructed every 4 hours asneeded. cholecalciferol (VITAMIN D-3) 50 mcg (2,000 unit) tablet Take 1 tablet by mouth once daily. acetaminophen (TYLENOL 8 HOUR) 650 mg CR tablet Take 1 tablet by mouth every 8 hours as needed. No current facility-administered medications on file prior [...] REVIEW OF SYSTEMS See HPI EXAM: BP 110/70 Pulse 96 Temp 36.3 C (97.3 F) Resp 18 Wt 55.1 kg (121 lb 6.4 oz) SpO2 97% BMI22.20 kg/m General Appearance: Well appearing, alert, in no acute distress, well-hydrated, well nourished.. Skin: 2nd degree burn encompassing top of her foot to her ankle with large blister on the lateral aspect without drainage. She has 1-2 cm area of exposed dermis on lateral portion of the top of her foot without cellulitis. Health Maintenance List Meningococcal Conjugate Vaccine(1 - Risk 2-dose series) Never done Hepatitis B Vaccine(1 of 3 - 19+ 3-dose series) Never done Hepatitis A Vaccine(1 of 2 - Risk 2-dose series) Never done Shingrix Vaccine(1 of 2) Never done Colorectal Cancer Screening Never done Lung Cancer Screening Never done Cervical Cancer Screening due on 03/12/2020 Behavioral Health Screening Never done Mammogram Screening due on 09/13/2023 Covid-19 Vaccine(2022-24 season) due on 09/07/2024 Influenza Vaccine(1) due on 03/18/2024 Annual PCP Team Chronic Disease Visit due on 09/07/2024 Diabetes Screening due on 08/02/2025 Lipid Screening due on 01/26/2027 DTaP,Tdap,Td Vaccine(2 - Td or Tdap) due on 07/06/2032 Alpha-1 Antitrypsin Deficiency Screening Completed Spirometry Completed Hepatitis C Screening Completed Pneumococcal Vaccine Completed HPV Vaccine Aged Out MMR Vaccine Discontinued ASSESSMENT/PLAN: 1. Partial thickness burn of right foot, initial encounter - ICD9: 945.22, ICD10: T25.221A 2nd degree burn on the top of her foot sustained while working after pot of boiling water fell ontothe ground. Given post op shoe today so she does not have to continue walking around with plastic bag wrapped around her foot. Dressing reapplied. Refill of silvadene sent to pharmacy along with supplies. Discussed wound care at home and instructed on dressing change at least daily. Will refer to wound care and f/u in 1 week if unable to get in to see them sooner. Red flags for re-assessment reviewed with patient in detail. - CONSULT TO SKIN CARE TEAM - POST - OP SHOE - NON-ADHERENT BANDAGE 3 X 4 Prudencio Pedro MD documented in this encounterUniversity Hospitals Tripoint [facility] Center07-20-2024 History of Present illness Narrative* Kathleen Maurice APRN.ANALILIA - 02/04/2024 9:11 AM EDT Patient was seen last night in the emergency room. Patient got burned at work. Patient was coming in to have her wound checked today. Did notify patient that we cannot do any Worker's Comp. follow-ups here. Patient seemed upset by this. Did instruct patient that she could go back to the ER. Patientshould follow-up with the proper Worker's Comp. protocol. documented in this encounterUniversity Hospitals [facility]point [facility] Center07-20-2024 Telephone encounter Note * Telephone Encounter - Prudencio Pedro MD - 02/04/2024 8:28 AM EDT Reviewed and agree. [facility]07-20-[facility]24 Miscellaneous Notes* Telephone Encounter - Prudencio Pedro MD - 02/04/2024 8:28 AM EDT Reviewed and agree. * Telephone Encounter - Tracie Ford RN - 02/04/2024 8:17 AM EDT Reason for Call: Patient calling with request for follow up from ER visit at non [facility] facility. Patient states she went yesterday for second degree low. Patient states she got dressing wet and needsassistance with new dressing. Advised visit with internal medicine today or express care or urgent care to assist with looking at burn and dressing. Patient denies any new or worsening symptoms of which a provider is not aware: Yes. Outcome: Advised to be seen today for assistance with dressing. Caller conferenced to [place] in appointment center for available appointment in office of PCP. Caller also given alternate options for care including [facility], emergency department for worsening symptoms. Tracie Ford RN GO TO THE EMERGENCY ROOM OR CALL 911 IF: * You develop any new symptoms * Your condition worsens * You are concerned or anxious about your condition for any other reason. If you have any questions, you can call Nurse consultants intern back. documented in this encounterUniversity Hospitals [facility]07-20-2024 Telephone encounter Note * Telephone Encounter - Tracie Ford RN - 02/04/2024 8:17 AM EDT Reason for Call: Patient calling with request for follow up from ER visit at non [facility] facility. Patient states she went yesterday for second degree low. Patient states she got dressing wet and needsassistance with new dressing. Advised visit with internal medicine today or express care or urgent care to assist with looking at burn and dressing. Patient denies any new or worsening symptoms of which a provider is not aware: Yes. Outcome: Advised to be seen today for assistance with dressing. Caller conferenced to [place] in appointment center for available appointment in office of PCP. Caller also given alternate options for care including [facility], emergency department for worsening symptoms. Tracie Ford RN GO TO THE EMERGENCY ROOM OR CALL 911 IF: * You develop any new symptoms * Your condition worsens * You are concerned or anxious about your condition for any other reason. If you have any questions, you can call Nurse consultants intern back. [facility]06-03-[facility]24 Telephone encounter Note* Telephone Encounter - Stephenie Arrieta PA-C - 12/19/2023 9:13 AM EDT Is sent a script for Augmentin to preferred pharmacy. Radha [facility]06-03-2024 Miscellaneous Notes* Telephone Encounter - Stephenie Arrieta PA-C - 12/19/2023 9:13 AM EDT Is sent a script for Augmentin to preferred pharmacy. Radha * Telephone Encounter - Tian Naylor LPN - 12/16/2023 12:30 PM EDT Called patient for further triage. Sx started approximately 10 days ago and c/o frontal headache, myalgias, yellow sinus drainage and increased cough with thick, clear sputum. She denies recent fever, sore throat, or severe dyspnea. Reports similar symptoms when she has sinusitis. Asking if ATB could be called to [facility] Ayoub? Advised that is out of the office currently, but would forward to covering providers. Tian Naylor LPN * Telephone Encounter - Chika Conde MA - 12/16/2023 9:11 AM EDT Patient called in again asking about a prescription for an antibiotic. States she is not feeling any better. * Telephone Encounter - Mitzi Ibarra RN - 12/09/2023 11:59 AM EDT Patient checking on reply. Did advise patient to EC for evaluation. Patient declined. * Telephone Encounter - Bambi Gonsalez RN - 12/07/2023 12:16 PM EDT Patient called asking about having an antibiotic and/or steroid ordered. Reports increased cough with thick, clear sputum. Bambi Gonsalez RN * Telephone Encounter - Lori Stokes RN - 12/07/2023 11:25 AM EDT Patient c/o productive cough. No fevers. Is using Mucinex but not helping. Patient asking if can send a prescription in for a stronger decongestant? documented in this encounterUniversity Hospitals [facility]05-31-2024 Telephone encounter Note * Telephone Encounter - Tian Naylor LPN - 12/16/2023 12:30 PM EDT Called patient for further triage. Sx started approximately 10 days ago and c/o frontal headache, myalgias, yellow sinus drainage and increased cough with thick, clear sputum. She denies recent fever, sore throat, or severe dyspnea. Reports similar symptoms when she has sinusitis. Asking if ATB could be called to Yadira Ayoub? Advised that is out of the office currently, but would forward to covering providers. Tian Naylor LPN [facility]05-31-2024 Telephone encounter Note* Telephone Encounter - Chika Conde MA - 12/16/2023 9:11 AM EDT Patient called in again asking about a prescription for an antibiotic. States she is not feeling any better. [facility]05-24-2024 Telephone encounter Note* Telephone Encounter - Mitzi Ibarra RN - 12/09/2023 11:59 AM EDT Patient checking on reply. Did advise patient to EC for evaluation. Patient declined. [facility]05-22-2024 Telephone encounter Note* Telephone Encounter - Bambi Gonsalez RN - 12/07/2023 12:16 PM EDT Patient called asking about having an antibiotic and/or steroid ordered. Reports increased cough with thick, clear sputum. Bambi Gonsalez RN [facility]05-22-2024 Telephone encounter Note* Telephone Encounter - Lori Stokes RN - 12/07/2023 11:25 AM EDT Patient c/o productive cough. No fevers. Is using Mucinex but not helping. Patient asking if can send a prescription in for a stronger decongestant? T [facility]05-07-2024 History of Present illness Narrative* Meagan Ribeiro APRN.NURSING TEACHER - 11/22/2023 3:05 PM EDT Subjective Abdominal Pain Associated symptoms include nausea and vomiting. Pertinent negatives include fever, diarrhea, headaches and myalgias. Tracy Vazquez is a 53 year old female who presents to [facility] care for a work excuse. She states she was sick yesterday and had nausea and vomiting. She denies fever or chills. No abdominal pain or diarrhea. She vomited for about 2 hours yesterday. Has not had any vomiting today. Has intermittent nausea. She took tylenol yesterday. Review of Systems Constitutional: Negative for chills, fever and malaise/fatigue. Respiratory: Negative. Cardiovascular: Negative. Gastrointestinal: Positive for nausea and vomiting. Negative for abdominal pain and diarrhea. Musculoskeletal: Negative for myalgias. Neurological: Negative for headaches. BP 128/82 Pulse 81 Temp 36.3 C (97.4 F) (Tympanic) Resp 18 Wt 54.9 kg (121 lb 0.5 oz) SpO2 98% BMI 22.13 kg/m PAST MEDICAL HISTORY Diagnosis Date Allergies On immunotherapy Anxiety Brain aneurysm Reprots from taking LSD- no surgery for this Emphysema lung (HCC) GERD (gastroesophageal reflux disease) Hepatitis B reports she is clear HIV (human immunodeficiency virus infection) (FORMERLY [facility] 2009 Dr. Mcdonald-ID Persistent cough 07/2022 Tobacco use disorder PAST SURGICAL HISTORY Procedure Laterality Date BREAST AUGMENTATION W/PROSTHETIC IMPLANT Bilateral 1995 under the muscle ALLERGIES House Dust Mite and Singulair [Montelukast] MEDICATIONS umeclidinium (INCRUSE ELLIPTA) 62.5 mcg/actuation inhaler Inhale 1 Puff as instructed once daily. guaiFENesin (MUCINEX) 600 mg 12 hr tablet Take 1 tablet by mouth two times a day. cetirizine (ZYRTEC) 10 mg tablet Take 1 tablet by mouth once daily. cholecalciferol (VITAMIN D-3) 50 mcg (2,000 unit) tablet Take 1 tablet by mouth once daily. acetaminophen (TYLENOL 8 HOUR) 650 mg CR tablet Take 1 tablet by mouth every 8 hours as needed. ycggbrpcbuh-owfdjmyehhbca-bcvydpmgm alafenamide (BIKTARVY) 50-200-25 mg per tablet Take 1 tablet bymouth once daily. nicotine (NICODERM) 14 mg/24 hr Apply 1 Patch as directed every 24 hours. No smoking with patch. nicotine (NICODERM) 7 mg/24 hr Apply 1 Patch as directed every 24 hours for 14 days. nicotine (NICODERM) 21 mg/24 hr Apply 1 Patch as directed every 24 hours. Lactobacillus acidophilus (FLORAJEN ACIDOPHILUS) 20 billion cell capsule Take 1 capsule by mouth once daily. (Patient not taking: Reported on 11/09/2023) albuterol HFA (VENTOLIN HFA) 90 mcg/actuation inhaler Inhale 2 Puffs as instructed every 4 hours asneeded. FAMILY HISTORY Problem Relation Age of Onset [...] nursing note reviewed. Constitutional: Appearance: Normal appearance. HENT: Mouth/Throat: Mouth: Mucous membranes are moist. Pharynx: Oropharynx is clear. No oropharyngeal exudate or posterior oropharyngeal erythema. Cardiovascular: Rate and Rhythm: Normal rate and regular rhythm. Heart sounds: Normal heart sounds. Pulmonary: Effort: Pulmonary effort is normal. No respiratory distress. Breath sounds: Normal breath sounds. No wheezing or rales. Abdominal: General: Bowel sounds are normal. There is no distension. Palpations: Abdomen is soft. There is no mass. Tenderness: There is no abdominal tenderness. There is no guarding. Skin: General: Skin is warm and dry. Findings: No erythema or rash. Neurological: Mental Status: She is alert. ASSESSMENT/PLAN: 1. Nausea - ICD9: 787.02, ICD10: R11.0 (primary diagnosis) -improving 2. History of vomiting - ICD9: V13.89, ICD10: Z87.898 -now resolved. - Follow-up with your PCP in 3-5 days if symptoms have not improved or sooner if symptoms worsen - Discussed red flags and need for immediate medical evaluation if any occur. - Discussed supportive care treatment with fluids, rest and analgesia. - Discussed expected course of illness Meagan Ribeiro APRN.NURSING TEACHER documented in this encounterUniversity Hospitals Tripoint [facility] Center05-07-2024 Instructions* Patient Instructions* Meagan Ribeiro APRN.CNP - 11/22/2023 3:05 PM EDT ASSESSMENT/PLAN: 1. Nausea - ICD9: 787.02, ICD10: R11.0 (primary diagnosis) -improving 2. History of vomiting - ICD9: V13.89, ICD10: Z87.898 -now resolved. - Follow-up with your PCP in 3-5 days if symptoms have not improved or sooner if symptoms worsen - Discussed red flags and need for immediate medical evaluation if any occur. - Discussed supportive care treatment with fluids, rest and analgesia. - Discussed expected course of illness Meagan Ribeiro APRN.CNP documented in this encounterUniversity Hospitals Tripoint [facility] Center04-24-2024 History of Present illness Narrative* Madelyn Bailey RPFT - 11/09/2023 10:29 AM EDT PULM FUNCTION SMARTBLOCK: Provider: David Brown MD Assisting Tech: Madelyn Bailey RPFT Spirometry: 1 documented in this encounterUniversity Hospitals Tripoint Medical Center04-24-2024 History of Present illness Narrative* Stephenie Arrieta PA-C - 11/09/2023 9:27 AM EDT Images from the original note were not included. Patient: Tracy Vazquez PCP: Prudencio Pedro MD CC: follow up HPI: Tracy Vazquez 53 year old female current 40 pack year smoker with PMH significant for HIV, GERD, Hep B, history of crack cocaine use, atopy on IT and emphysema.Current therapy with as needed albuterol. Today, patient denies cough. I just spit up thick stringy phlegm every morning. No hemoptysis. Occasionally wheezes. Exertional dyspnea with climbing multiples steps, carrying laundry/groceries, and walking inclines. No chest pain or palpitations. Some dizziness. Reports sinus congestion and post nasal drip. Receives weekly immunotherapy per [facility]. Has not been using Flonasesecondary to epistaxis. No lower extremity edema. No recent hospitalizations or ED visits or upper r espiratory infections. Currently smoking 1.5 ppd. 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 Mcdonald-ID Persistent cough 07/2022 Tobacco use disorder Allergies: House Dust Mite Other: See Comments Comment:Itchy eyes Singulair [[place]* Other: See Comments Comment:Had nightmares guaiFENesin (MUCINEX) 600 mg 12 hr tablet Take 1 tablet by mouth two times a day. cetirizine (ZYRTEC) 10 mg tablet Take 1 tablet by mouth once daily. cholecalciferol (VITAMIN D-3) 50 mcg (2,000 unit) tablet Take 1 tablet by mouth once daily. acetaminophen (TYLENOL 8 HOUR) 650 mg CR tablet Take 1 tablet by mouth every 8 hours as needed. xenvyrvwvry-ifczqnyncdfkg-xjmebvgqt alafenamide (BIKTARVY) 50-200-25 mg per tablet Take 1 tablet bymouth once daily. nicotine (NICODERM) 14 mg/24 hr Apply 1 Patch as directed every 24 hours. No smoking with patch. nicotine (NICODERM) 7 mg/24 hr Apply 1 Patch as directed every 24 hours for 14 days. nicotine (NICODERM) 21 mg/24 hr Apply 1 Patch as directed every 24 hours. Lactobacillus acidophilus (FLORAJEN ACIDOPHILUS) 20 billion cell capsule Take 1 capsule by mouth once daily. (Patient not taking: Reported on 11/09/2023) albuterol HFA (VENTOLIN HFA) 90 mcg/actuation inhaler Inhale 2 Puffs as instructed every 4 hours asneeded. lansoprazole (PREVACID) 15 mg capsule Take 1 capsule by mouth daily before breakfast. 1/2 hr beforemeal. (Patient not taking: Reported on 05/09/2023) Social History Tobacco Use Smoking status: Every Day Packs/day: 1.00 Years: 38.00 Additional pack years: 0.00 Total pack years: 38.00 Types: Cigarettes Smokeless tobacco: Never Vaping Use Vaping Use: Never used Substance Use Topics Alcohol use: Not Currently Drug use: Not Currently Types: Marijuana, LSD, Crack Cocaine Comment: past hx Family History Problem Relation Age of Onset Emphysema Mother other (lung cancer) Mother Cancer Father prostate Breast Cancer Maternal Aunt Bipolar disorder Sister other (mental health) Maternal Grandmother No Known Problems Maternal Grandfather Breast Cancer Paternal Grandmother PAST SURGICAL HISTORY Procedure Laterality Date BREAST AUGMENTATION W/PROSTHETIC IMPLANT Bilateral 1995 under the muscle I reviewed the past medical history, family history, social history and surgical history with changes noted above and updated in EMR. IMMUNIZATIONS Prevnar - 07/2022 Pneumovax - 2014 Influenza - xx COVID-19 - most recent 06/2022 ROS: CONSTITUTIONAL: No fevers, chills, nightsweats, unintended weight loss HEENT: Positive nasal congestion/sinus symptoms, problematic allergy problems. CARDIOVASCULAR: No chest pain, dyspnea, palpitations, orthopnea, PND, edema. PULM: See HPI GI: No dysphagia/odynophagia, problematic reflux NEURO: No new balance problems, peripheral weakness/paresthesias or numbness of concern. INTEGUMENTARY: No new skin changes, rashes, eczema PHYSICAL EXAMINATION: BP 104/72 (BP Site: Right Arm, BP Position: Sitting, BP Cuff Size: Regular Adult) Pulse 79 Resp17 Wt 56.7 kg (125 lb) SpO2 99% BMI 22.92 kg/m Gen: No acute distress. Cooperative with examination. HEENT: Normocephalic. Sclera, conjunctiva clear. Oral hygeine and dentition poor. No thrush. Resp: No stridor, accessory respiratory muscle use, supra-sternal or intercostal retractions. No wheezes, crackles. CV: Regular rythm. Heart tones normal. Radial pulses normal. Ext: Warm and well perfused. No clubbing, cyanosis, edema. Skin: No rash, ecchymoses. Neuro: Mental status normal. Affect normal. No tremor. DATA: PFT, 11/09/2023 CXR, 04/13/2023 IMPRESSION: No acute radiographic abnormality. COMPARISON: 01/26/2022 RESULT: Lines, tubes, and devices: None. Lungs and pleura: No consolidation. No lung mass. No pleural effusion. No pneumothorax. Cardiomediastinal silhouette: Normal cardiomediastinal silhouette. Bones and soft tissues: Unremarkable. Labs: Component Ref Range & Units 6 mo ago Alpha 1 Antitrypsin 90 - 200 mg/dL 134 ASSESSMENT/PLAN: 1. Centrilobular emphysema (HCC) - ICD9: 492.8, ICD10: J43.2 (primary diagnosis) Alpha-1 antitrypsin normal. Start Incruse daily. Albuterol HFA inhaler, 2 inhalations 10-15 minutes prior to activities associated with shortness ofbreath, and as needed for rescue relief of shortness of breath or wheezing, up to 4 times daily. Smoking cessation is critical. PFTs show no obstruction. - UMECLIDINIUM 62.5 MCG/ACTUATION BLISTER POWDER FOR INHALATION 2. Chronic bronchitis, unspecified chronic bronchitis type (HCC) - ICD9: 491.9, ICD10: J42 See #1. 3. Cigarette smoker - ICD9: 305.1, ICD10: F17.210 Cessation encouraged. Physiologic and physical aspects of tobacco addiction as well as strategies for quitting were discussed. Counseling was given focusing on the harmful effects of this addiction especially given the patient's medical condition(s) which will be worsened because of the chemicals in tobacco. Enrolled in lung cancer screening at [facility]. Portions of this documentation were copied and pasted from previous office visit notes in order to provide a cohesive continuity of the history. The note has been reviewed and edited and updated as necessary. Stephenie Arrieta PA-C documented in this encounterUniversity Hospitals Tripoint Medical Center04-18-2024 Miscellaneous Notes* Telephone Encounter - Stephenie Joseph - 11/03/2023 11:01 AM EDT Error documented in this encounterUniversity Hospitals Tripoint Medical Center04-16-2024 Miscellaneous Notes* Telephone Encounter - Thea Carrillo NoemyROXIMITY Kodi - 11/01/2023 2:57 PM EDT Could we have a new order? Bilateral Diagnostic mammogram. Pt due for her screening. Thanks a million documented in this encounterUniversity Hospitals Tripoint Medical Center04-08-2024 History of Present illness Narrative* Pam Garibay PA-C - 10/24/2023 11:29 AM EDT This note was created using [employer]. Subjective Tracy Vazquez is a 53 year old female. HPI Presents with a chief complaint of nausea and vomiting yesterday. She states she had to call off work yesterday and needs a note. Today she feels fine. She had eaten out at [employer] and had a steak and potato the evening before getting sick. She feels like this is what caused her to have the vomiting. She feels like her GERD may also be flared as she stopped her GERD medication. She denies fever or chills. She was having some abdominal pain yesterday but none today. No blood in vomit. No diarrhea. No cough or runny nose. No sore throat. Review of Systems HENT: Negative. Respiratory: Negative. Cardiovascular: Negative. Gastrointestinal: Positive for abdominal pain, nausea and vomiting. Negative for blood in stool anddiarrhea. Genitourinary: Negative. All other systems reviewed and are negative. PAST MEDICAL HISTORY Diagnosis Date Allergies On immunotherapy Anxiety Brain aneurysm Reprots from taking LSD- no surgery for this Emphysema lung (HCC) GERD (gastroesophageal reflux disease) Hepatitis B reports she is clear HIV (human immunodeficiency virus infection) (HCC) [address] Dr. Mcdonald-ID Persistent cough 07/2022 Tobacco use disorder Current Outpatient Medications Medication Sig Dispense Refill guaiFENesin (MUCINEX) 600 mg 12 hr tablet Take 1 tablet by mouth two times a day. 60 tablet 1 cetirizine (ZYRTEC) 10 mg tablet Take 1 tablet by mouth once daily. 30 tablet 2 Lactobacillus acidophilus (FLORAJEN ACIDOPHILUS) 20 billion cell capsule Take 1 capsule by mouth once daily. 30 capsule 0 cholecalciferol (VITAMIN D-3) 50 mcg (2,000 unit) tablet Take 1 tablet by mouth once daily. 90 tablet 1 acetaminophen (TYLENOL 8 HOUR) 650 mg CR tablet Take 1 tablet by mouth every 8 hours as needed. 90 Each 0 dirashsrtfa-qvlvppilrjane-qdravijkg alafenamide (BIKTARVY) 50-200-25 mg per tablet Take 1 tablet bymouth once daily. nicotine (NICODERM) 14 mg/24 hr Apply 1 Patch as directed every 24 hours. No smoking with patch. 42Patch 0 nicotine (NICODERM) 7 mg/24 hr Apply 1 Patch as directed every 24 hours for 14 days. 14 Patch 0 nicotine (NICODERM) 21 mg/24 hr Apply 1 Patch as directed every 24 hours. 42 Patch 0 albuterol HFA (VENTOLIN HFA) 90 mcg/actuation inhaler Inhale 2 Puffs as instructed every 4 hours asneeded. 1 Each 3 lansoprazole (PREVACID) 15 mg capsule Take 1 capsule by mouth daily before breakfast. 1/2 hr beforemeal. (Patient not taking: Reported on 05/09/2023) 30 capsule 2 No current facility-administered medications [...] Crack Cocaine Comment: past hx Objective BP 118/74 Pulse 98 Temp 36.4 C (97.5 F) (Tympanic) Resp 18 Wt 55.5 kg (122 lb 5.7 oz) SpO2 97% BMI 22.43 kg/m Physical Exam Vitals reviewed. Constitutional: Appearance: Normal appearance. HENT: Head: Normocephalic and atraumatic. Mouth/Throat: Mouth: Mucous membranes are moist. Pharynx: Oropharynx is clear. Cardiovascular: Rate and Rhythm: Normal rate and regular rhythm. Heart sounds: Normal heart sounds. Pulmonary: Effort: Pulmonary effort is normal. Breath sounds: Normal breath sounds. Abdominal: General: Abdomen is flat. Bowel sounds are normal. There is no distension. Palpations: Abdomen is soft. Tenderness: There is no abdominal tenderness. There is no guarding. Musculoskeletal: Cervical back: Neck supple. Skin: General: Skin is warm and dry. Neurological: Mental Status: She is alert. Assessment and Plan ASSESSMENT/PLAN: 1. Nausea and vomiting, unspecified vomiting type - ICD9: 787.01, ICD10: R11.2 Resolved at this point. Work note provided. Follow-up with PCP if recurs again. Pam Garibay PA-C documented in this encounterUniversity Hospitals Tripoint Medical Center03-20-2024 Miscellaneous Notes* Telephone Encounter - Venecia Gusman MA - 10/05/2023 4:12 PM EDT Pt notified and verbalizes understanding. Venecia Gusman MA * Telephone Encounter - Venecia Gusman MA - 10/04/2023 11:42 AM EDT Images from the original note were not included. David Brown MD No the last pill would not make that much of a difference. She is not currently a candidate for Dupixent from a lung standpoint. He lung function is not that bad and she needs to stop smoking. * Telephone Encounter - Donna Brown LPN - 10/04/2023 10:57 AM EDT Patient called, verified name and date of , regarding doxycycline. Patient stated she dropped last pill of doxycycline on the floor, she is not taking it. Wanted to know would this matter is she takes the last pill? Patient stated she did take the other pills as prescribed. Patient also states she wants to try a medication called Zufipent (spelling given by patient). She wants to know if this would work better for her. Please review and advise patient. Phone number verified. Donna Brown LPN October 04, 2023 10:59 AM documented in this encounterUniversity Hospitals Tripoint Medical Center03-07-2024 Miscellaneous Notes* Telephone Encounter - Donna Brown LPN - 09/22/2023 2:55 PM EST Patient called, verified name and date of , regarding message below. Advised patient does have patients in office today. Nurse will reroute message to pulmonary staff. Patient states she is headed to work now. Please review and advise patient. Donna Brown LPN September 22, 2023 2:57 PM * Telephone Encounter - Lori Stokes RN - 09/22/2023 11:23 AM EST Patient calls in requesting prescription be called into [facility] in [place]. States she feels likeshe has bronchitis. Reports body aches, increased congestion and mucus, trouble sleeping and fatigue x 3 days. Further states that she is gagging on mucus. Denies fever but states I'm sweating. Please advise. documented in this encounterUniversity Hospitals Tripoint Medical Center02-28-2024 Miscellaneous Notes* Telephone Encounter - Tian Naylor LPN - 09/14/2023 12:04 PM EST [place] 03/14/23 Patient was no show for appointment with Radha Arrieta today. * Telephone Encounter - Bambi Gonsalez RN - 09/14/2023 10:56 AM EST Patient phones requesting refills as follows: Requested Prescriptions Pending Prescriptions Disp Refills guaiFENesin (MUCINEX) 600 mg 12 hr tablet 60 tablet 1 Sig: Take 1 tablet by mouth two times a day. Please review and advise. Bamib Gonsalez RN documented in this encounterUniversity Hospitals Tripoint Medical Center02-21-2024 Instructions* Patient Instructions* Diamond Bright APRN.NURSING TEACHER - 09/07/2023 10:17 AM EST Images from the original note were not included. Bowel Preparation Instructions for: Miralax-Gatorade Preparations IF YOU DO NOT FOLLOW THESE DIRECTIONS, YOUR COLONOSCOPY WILL BE CANCELLED. [place] Instructions: Your bowel must be empty so that your doctor can clearly view your colon. Follow all of the instructions in this handout EXACTLY as they are written. Do NOT eat any solid food the ENTIRE day before your colonoscopy. Buy your bowel preparation at least 5 days before your colonoscopy. Four (4) Dulcolax laxative tablets containing 5mg of bisacodyl each (NOT Dulcolax stool softener) One (1) 8.3oz. bottle Miralax (238 grams) or generic equivalent 2 x 32oz. Bottles of Gatorade (NOT RED) Diabetic Patients: Use G2 (Gatorade 2) TRANSPORTATION on the Day of Your Exam A responsible adult MUST be present with you at Check In prior to your colonoscopy and REMAIN in the endoscopy area until you are discharged. You are NOT ALLOWED to drive, take a taxi or bus, or leave the Endoscopy Center ALONE. If you do not have a responsible dedicated regional driver (family member or friend) withyou to take you home, your exam cannot be done with sedation and will be cancelled. Please bring a list of all of your current medications, including any Uozq-fez-Tduogkk medications with you. Medications If you take insulin, diabetic medications or blood thinners such as Coumadin (warfarin), Plavix (clopidogrel), Ticlid (ticlopidine hydrochloride), Agrylin (anagrelide), Xarelto (Rivaroxaban), Pradaxa(Dabigatran), Eliquis (Apixaban), and Effient (Prasugrel). You MUST call the doctors who orders those medicines for instructions on altering the dosage before your colonoscopy. All other medications should be taken the day of the exam with a sip of water including ASPIRIN. Five (5) Days Before Your Colonoscopy Do NOT take medicines that stop diarrhea - such as Imodium, Kaopectate, or Pepto Bismol. Do NOT take fiber supplements - such as Metamucil, Citrucel, or Perdiem. Do NOT take products that contain iron - such as multi-vitamins (the label lists what is in the products). Three (3) Days Before Your Colonoscopy Do NOT eat high-fiber foods - such as popcorn, beans, seeds (flax, sunflower, quinoa), multigrain bread, nuts, salad/vegetables, or fresh and dried fruit. 1 Bowel Preparation Instructions for: Miralax-Gatorade Preparations One (1) Day Before Your Colonoscopy Only drink clear liquids the ENTIRE DAY before your colonoscopy. Do NOT eat any solid foods. Drink at least 8 ounces of clear liquids every hour after waking up. The clear liquids you can drink include: Clear Liquid (NO RED LIQUIDS) DO NOT DRINK Gatorade, Pedialyte or Powerade Clear broth or bouillon Coffee or tea (no milk or non-dairy creamer) Carbonated and non-carbonated soft drinks Yannick-Aid or other fruit flavored drinks Strained fruit juices (no pulp) Jell-O, popsicles, hard candy Water Alcohol Milk or non-dairy creamers Noodles or vegetables in soup Juice with pulp Liquid you cannot see through Do not use tobacco/vaping products Mix 1/2 of Miralax bottle (119 grams) in each 32 ounces of Gatorade bottle until dissolved. Keep cool in the refrigerator. DO NOT ADD ICE. The bowel preparation solution will be consumed in two parts. Part 1 5:00 PM - Evening before your colonoscopy Take 4 Dulcolax tablets. 6 PM - Evening before your colonoscopy Drink 32 oz. of the mixed solution. Drink an 8 oz. glass of bowel preparation every 15 minutes for a total of 4 glasses. Fifteen (15) minutes later, drink an 8 oz. glass of of clear liquids every 15 minutes for a total of 2 glasses. You may continue to drink clear liquids till midnight. Part 2 On the day of your colonoscopy you may drink clear liquids up to (three) 3 hours prior to procedure. 4 1/2 hours before your colonoscopy Take another 32 oz. bottle of mixed solution. Drink an 8 oz. glass of bowel prep every 15 minutes for a total of 4 glasses. Fifteen (15) minutes later, drink an 8 oz. glass of clear liquids every 15 minutes for a total of 2glasses. You may continue to drink clear liquids up to (three) 3 hours before your exam. 2 06/2019 documented in this encounterUniversity Hospitals Tripoint Medical Center02-21-2024 History of Present illness Narrative* Diamond Bright APRN.CNP - 09/07/2023 9:54 AM EST 09/07/2023 No chief complaint on file. SUBJECTIVE: This is a 53 year old that is here today for Above Complaints.. Sees dentist in September. Reports her teeth are hurting. She reports dentist said to talk about getting antibiotic prior to teeth cleaning Just started using nicotine patches two days ago. Has not smoked for the last two days. Had been smoking 1.5 packs a day GERD: Takes Prevacid occasionally. Taking Florajen which helps HIV: Follows with Dr. Vallejo, infections disease. No recent medication changes or fevers Follows with , [facility]. Lung cancer screening up to date PAST MEDICAL HISTORY Diagnosis Date Allergies On immunotherapy Anxiety Brain aneurysm Reprots from taking LSD- no surgery for this Emphysema lung (HCC) GERD (gastroesophageal reflux disease) Hepatitis B reports she is clear HIV (human immunodeficiency virus infection) (FORMERLY [facility]) [address] Dr. Mcdoanld-ID Persistent cough 07/2022 Tobacco use disorder ALLERGIES House Dust Mite and Singulair [Montelukast] MEDICATIONS Current Outpatient Medications Medication Sig nicotine (NICODERM) 14 mg/24 hr Apply 1 Patch as directed every 24 hours. No smoking with patch. nicotine (NICODERM) 7 mg/24 hr Apply 1 Patch as directed every 24 hours for 14 days. nicotine (NICODERM) 21 mg/24 hr Apply 1 Patch as directed every 24 hours. Lactobacillus acidophilus (FLORAJEN ACIDOPHILUS) 20 billion cell capsule Take 1 capsule by mouth once daily. cetirizine (ZYRTEC) 10 mg tablet Take 1 tablet by mouth once daily. albuterol HFA (VENTOLIN HFA) 90 mcg/actuation inhaler Inhale 2 Puffs as instructed every 4 hours asneeded. cholecalciferol (VITAMIN D-3) 50 mcg (2,000 unit) tablet Take 1 tablet by mouth once daily. guaiFENesin (MUCINEX) 600 mg 12 hr tablet Take 1 tablet by mouth two times a day. acetaminophen (TYLENOL 8 HOUR) 650 mg CR tablet Take 1 tablet by mouth every 8 hours as needed. buPROPion SR (WELLBUTRIN SR) 150 mg 12 hr tablet Take 1 tablet by mouth twice daily. (Patient not taking: Reported on 03/01/2023) lansoprazole (PREVACID) 15 mg capsule Take 1 capsule by mouth daily before breakfast. 1/2 hr beforemeal. (Patient not taking: Reported on 05/09/2023) nbpwgnabblo-vdzkjurosfhof-tupcptasv alafenamide (BIKTARVY) 50-200-25 mg per tablet Take [...] Cocaine Comment: past hx REVIEW OF SYSTEMS GENERAL: No weight loss, malaise or fevers HEENT: Negative for frequent or significant headaches, No changes in hearing or vision, no nose bleeds or other nasal problems NECK: Negative for lumps, goiter, pain and significant neck swelling RESPIRATORY: Negative for hemoptysis, wheezing, dyspnea or shortness of breat CARDIOVASCULAR: Negative for chest pain, leg swelling, hypertension, CHF or palpitations GI: No nausea, vomiting. Occasional diarrhea : No history of dysuria, frequency or incontinence MANAGER EDUCATIONAL: Negative for abnormal vaginal bleeding, abnormal vaginal discharge MUSCULOSKELETAL: Negative for joint pain or swelling, back pain or muscle pain SKIN: Negative for lesions, rash, and itching PSYCH: Negative for sleep disturbance, mood disorder and recent psychosocial stressors HEMATOLOGY/LYMPHOLOGY: Negative for prolonged bleeding, bruising easily or swollen nodes ENDOCRINE: Negative for cold or heat intolerance, polyuria, polydipsia and goiter NEURO: No history of headaches, syncope, paralysis, seizures or tremors All other reviewed and negative other than HPI. OBJECTIVE: BP 100/64 Pulse 62 Resp 18 Ht 157.3 cm (5' 1.93) Wt 56 kg (123 lb 6.4 oz) SpO2 98% BMI22.62 kg/m . Vital signs reviewed by this provider. APPEARANCE Well appearing, alert, in no acute distress, well-hydrated, well nourished. EYES PERRLA, conjunctiva and sclera normal. EARS External ears normal, canals clear THROAT normal, no erythema. Edentulous on the top. Six lower front teeth in poor repair. No abscessof gums NECK Supple, no adenopathy; thyroid symmetric, normal size HEART RRR with normal S1 and S2, no murmurs, no gallops, no JVD appreciated LUNG clear to auscultation. No wheezes, rhonchi or rales EXTREMITIES Extremities normal, No deformities, No skin discoloration, and No edema SKIN Skin color, texture, turgor normal, no suspicious rashes or lesions to exposed skin Hepatitis B Vaccine(1 of 3 - 3-dose series) Never done Meningococcal Conjugate Vaccine(1 - Risk 2-dose series) Never done Hepatitis A Vaccine(1 of 2 - Risk 2-dose series) Never done Shingrix Vaccine(1 of 2) Never done Colorectal Cancer Screening Never done Lung Cancer Screening Never done Mammogram Screening due on 09/13/2023 Influenza Vaccine(1) due on 01/15/2024 Covid-19 Vaccine( season) due on 09/07/2024 Pap Testing due on 03/12/2024 HPV Testing due on 03/12/2024 Annual PCP Team Chronic Disease Visit due on 09/07/2024 Diabetes Screening due on 08/02/2025 Lipid Screening due on 01/26/2027 DTaP,Tdap,Td Vaccine(2 - Td or Tdap) due on 07/06/2032 Alpha-1 Antitrypsin Deficiency Screening Completed Spirometry Completed Depression Assessment Completed Hepatitis C Screening Completed Pneumococcal Vaccine Completed HPV Vaccine Aged Out MMR Vaccine Discontinued ASSESSMENT/PLAN: 1. Annual physical exam - ICD9: V70.0, ICD10: Z00.00 (primary diagnosis) - Counseled on healthy diet and regular exercise - Calcium intake with supplements or by diet of 1000 mg/day for under 50, 1200- 1500 mg/day for 50+ - Depression screening tool completed and reviewed with patient. Based on score and interview, patient is not at risk for depression and recommended no further intervention at this time. - Follow up for annual exam in one year 2. Screening for colon cancer - ICD9: V76.51, ICD10: Z12.11 - COLONOSCOPY SCREENING 3. Depression screening - ICD9: V79.0, ICD10: Z13.31 - DEPRESSION SCREENING/ASSESSMENT 4. Abnormal mammogram - ICD9: 793.80, ICD10: R92.8 - complete repeat in October 5. Tobacco use disorder, continuous - ICD9: 305.1, ICD10: F17.209 - continue working on cessation 6. Centrilobular emphysema (HCC) - ICD9: 492.8, ICD10: J43.2 - stable - follow-up with pulmonology as scheduled 7. HIV infection, unspecified symptom status (HCC) - ICD9: V08, ICD10: B20 - follow-up with infectious disease as recommended Diamond Bright APRN.NURSING TEACHER Prescription instructions reviewed with patient as applicable. Patient advised if symptoms do not improve or if symptoms worsen sooner, to contact their primary care physician. Potential red flag symptoms discussed with the patient. Reviewed appropriate action plan to take if red flag symptoms occur. Patient agreeable to treatment plan. documented in this encounterUniversity Hospitals Tripoint Medical Center02-12-2024 Miscellaneous Notes* Telephone Encounter - Abigail William LPN - 08/29/2023 12:23 PM EST Phoned patient and reviewed provider's message with her. Patient voiced understanding. * Telephone Encounter - Prudencio Pedro MD - 08/29/2023 10:41 AM EST I'm happy to hear she is ready to quit smoking. I have sent all 3 steps for nicoderm to pharmacy. Start with step 1 as ordered for 6 weeks, then step 2 for 6 weeks, then step 3 for 2 weeks. Should only have one patch on at a time. Do not smoke with patches. * Telephone Encounter - Nga Hurt - 08/29/2023 10:33 AM EST Patient said she changed her mind and would like to try her Nicoderm patches again; showing as a discontinued med. Uses [facility] in [place]. documented in this encounterUniversity Hospitals Tripoint Medical Center12-11-2023 Miscellaneous Notes* Telephone Encounter - Maximino Barroso APRN.CNP - 06/27/2023 10:12 AM EST The following approved medication requests have been transmitted electronically. Requested Prescriptions Pending Prescriptions Disp Refills cetirizine (ZYRTEC) 10 mg tablet 30 tablet 2 Sig: Take 1 tablet by mouth once daily. Maximino Barroso APRN.ANALILIA * Telephone Encounter - Jason Boston RN - 06/27/2023 9:09 AM EST Patient has been identified by name and [...] Value 08/02/2022 19 Please advise. Thank you. Jason Boston RN. documented in this encounterUniversity Hospitals Tripoint Medical Center12-08-2023 Miscellaneous Notes* Telephone Encounter - Tian Naylor LPN - 06/24/2023 2:24 PM EST EUGENE 03/14/23 Patient phones requesting refills as follows: Requested Prescriptions Pending Prescriptions Disp Refills albuterol HFA (VENTOLIN HFA) 90 mcg/actuation inhaler 1 Each 3 Sig: Inhale 2 Puffs as instructed every 4 hours as needed. Please review and advise. Tian Naylor LPN documented in this encounterUniversity Hospitals Tripoint Medical Center11-27-2023 History of Present illness Narrative* Lidia Mi RT(R) - 06/13/2023 10:20 AM EST Radiology Service Progress Note PATIENT NAME: Tracy [...] DEPARTMENT: General X-ray: Exam(s) Completed: Upper Extremity X- Ray(s): Shoulder, AP / TRUE AP / AXILLARY left PERIPHERAL IV DATA: Not applicable SIGNED BY: RT Penny(R) June 13, 2023 10:45 AM documented in this encounterUniversity Hospitals Tripoint Medical Center11-27-2023 History of Present illness Narrative* Louie Tyson PA - 06/13/2023 10:11 AM EST This note was created using Rentablesriter. Subjective Tracy Vazquez is a 53 year [...] the arm. Still able to move it. Vyinh-ftoe-niveesdg. She has been taking Tylenol. She does [...] mouth daily before breakfast. 1/2 hr beforemeal. (Patient not taking: Reported on 05/09/2023) albuterol HFA (VENTOLIN HFA) 90 mcg/actuation inhaler Inhale 2 Puffs as instructed every 4 hours asneeded. pgdplwkrfgc-mejvqbdasibfy-ycqvxhvxq alafenamide (BIKTARVY) 50-200-25 mg per tablet Take [...] 54.9 kg (121 lb) SpO2 100% BMI 22.86kg/m Physical Exam Vitals and nursing note reviewed. [...] present. No swelling or deformity. Decreased range ofmotion. Normal pulse. Comments: Forward flexion to approximately [...] ER evaluation. KERRI Fragoso documented in this encounterUniversity Hospitals Tripoint Medical Center11-14-2023 Miscellaneous Notes* Telephone Encounter - Donna Brown LPN - 05/31/2023 2:30 PM EST Patient called stating pharmacy does not have her prescription yet. Advised patient that refill request has been routed to . is seeing patients and will fill medication at her earliest convenience. Patient verbalized understanding. Donna Brown LPN * Telephone Encounter - SOPHIA Gusman Laurie - 05/31/2023 10:23 AM EST Patient has been identified by name and date of : Yes Requested Prescriptions Pending Prescriptions Disp Refills guaiFENesin (MUCINEX) 600 mg 12 hr tablet 40 tablet 0 Sig: Take 2 tablets by mouth two times a day for 10 days. RX INSTRUCTIONS: Patient aware RX will be sent to pharmacy. No need to notify patient. Venecia Gusman MA documented in this encounterUniversity Hospitals Tripoint Medical Center11-01-2023 Miscellaneous Notes* Telephone Encounter - Abigail August LPN - 05/18/2023 9:42 AM EDT Pt was notified of results & instructions from provider, pt voiced understanding. Pt was transferred to scheduling. Abigail August LPN * Telephone Encounter - Shraddha Cuevas LPN - 05/18/2023 9:07 AM EDT Patient telephoned. Message left for patient to call office back and ask for triage nurse. Shraddha Cuevas LPN * Telephone Encounter - Prudencio Pedro MD - 05/18/2023 8:39 AM EDT Mammogram and US shows <0.5 cm irregular lesion in right breast which is probably benign. Recommend repeat diagnostic mammogram and US in 6 months to monitor progression. documented in this encounterUniversity Hospitals Tripoint Medical Center10-31-2023 History of Present illness Narrative* Gem Saxena RDMS - 05/17/2023 9:30 AM EDT Radiology Service Progress Note PATIENT [...] 17, 2023 2:55 PM documented in this encounterUniversity Hospitals Tripoint Medical Center10-31-2023 History of Present illness Narrative* Maria Del Carmen Mendez Mammo Tech - 05/17/2023 9:00 AM EDT Radiology Service Progress Note PATIENT [...] PERIPHERAL IV DATA: Not applicable SIGNED BY: Noemy TanROXIMITY Kodi May 17, 2023 8:53 AM documented in this encounterUniversity Hospitals Tripoint Medical Center10-23-2023 History of Present illness Narrative* Bruce Wilson MD - 05/09/2023 1:20 PM EDT Bruce Wilson MD Department of Orthopaedics Orthopaedics [address] [facility] [address] Dept: [phone] Dept May 09, 2023 CHIEF COMPLAINT: New and Fracture of the Left Wrist HPI Patient here today for a left wrist fracture. Injury happened 3 weeks ago when she tripped on the sidewalk while walking to the store. She denies any pain today. Arrives with brace on the wrist. She is right hand dominant. 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 ASSESSMENT: M25.532 Left wrist pain (primary encounter [...] motion. IMAGING: IMPRESSION: No acute osseous abnormality. Supervisor Mapping: REJI Transcribe Date/Time: May 11 2023 12:02P [...] is clear HIV (human immunodeficiency virus infection) (FORMERLY [facility]) 2009 Dr. Mcdonald-ID Persistent cough 07/2022 Tobacco [...] Puffs as instructed every 4 hours asneeded. gmcesyqjbrj-rdczeujorzuhp-azwdgbtws alafenamide (BIKTARVY) 50-200-25 mg per tablet Take 1 tablet bymouth once daily. buPROPion SR (WELLBUTRIN SR) 150 mg 12 hr tablet Take 1 tablet by mouth twice daily. (Patient not taking: Reported on 03/01/2023) lansoprazole (PREVACID) 15 mg capsule Take 1 capsule by mouth daily before breakfast. 1/2 hr beforemeal. (Patient not taking: Reported on 05/09/2023) No [...] depression, anxiety) REFERRING PHYSICIAN: Consultation requested by Aliyah Araujo for an opinion regarding wrist injury. My final recommendations will be communicated back to the requesting physician by way of shared Medical record or letter to requesting physician via [place] mail. Aliyah Arajuo [address] [phone] Prudencio Pedro MD [address] [phone] rBuce Wilson MD documented in this encounterUniversity Hospitals Tripoint Medical Center09-19-2023 Miscellaneous Notes* Telephone Encounter - Tian Naylor LPN - 04/05/2023 8:12 AM EDT Patient calling and states Z pack given at [facility] 03/14 was not helpful. She was seen in on 03/30 andviral panel negative. She does not have a fever. Cough is productive of thick whitish sputum and she c/o of chest discomfort from forceful coughing. Asking if an additional course of ATB could be called to [facility]? Tian Naylor LPN documented in this encounterUniversity Hospitals Tripoint Medical Center09-14-2023 Miscellaneous Notes* Telephone Encounter - Ephraim Lara LPN - 03/31/2023 8:46 AM EDT Pt notified of results with verbalizes understanding. Ephraim Lara LPN * Telephone Encounter - Azalea Betancourt LPN - 03/31/2023 8:37 AM EDT Left message for patient to return call. Azalea Betancourt LPN * Telephone Encounter - Grazyna Oh MA - 03/31/2023 8:33 AM EDT ----- Message from Meagan Ribeiro APRN.NURSING TEACHER sent at 03/31/2023 7:11 AM EDT ----- Please advise patient the COVID and flu test was negative. documented in this encounterUniversity Hospitals Tripoint Medical Center09-13-2023 History of Present illness Narrative* Rob Chirinos APRN.ANALILIA - 03/30/2023 3:37 PM EDT Subjective HPI Nontoxic-appearing female presents urgent care chief complaint loose stools. Duration of symptoms 5days. Associated symptoms loose stool in the morning. [...] is clear HIV (human immunodeficiency virus infection) (FORMERLY [facility]) [address] Dr. Mcdonald-ID Persistent cough 07/2022 Tobacco [...] Puffs as instructed every 4 hours asneeded. eyjddxwwxao-yybbipjuvhcny-wetethqof alafenamide (BIKTARVY) 50-200-25 mg per tablet Take 1 tablet bymouth once daily. azithromycin (ZITHROMAX) 250 mg tablet [...] of care. This note was generated using Figure 8 [employer] software. It may contain errors in wording, punctuation, or spelling. Rob Chirinos APRN.NURSING TEACHER documented in this encounterUniversity Hospitals Tripoint Medical Center08-28-2023 Miscellaneous Notes* Telephone Encounter - Jody Olivares RN - 03/14/2023 3:44 PM EDT Left detailed message on identified voicemail. The following approved medication requests have been transmitted electronically. Requested Prescriptions Signed Prescriptions Disp Refills miconazole (MONISTAT) 2 % vaginal cream 54 g 0 Sig: Use 1 Applicator vaginally daily at bedtime for 7 days. Authorizing Provider: ILIANA ALBARADO Pharmacy Information Pharmacy Address [phone] [place] [address] * Telephone Encounter - Iliana Albarado MD - 03/14/2023 3:42 PM EDT Rx sent To be evaluated in office if symptoms worsen or do not improve * Telephone Encounter - Frances Armijo LPN - 03/14/2023 1:22 PM EDT Pt stopped in the office and reports that she was treated for BV through [facility] on 02/17/23 andis now on another antibiotic for bronchitis. Pt is now having yeast sxs for the past couple days and does not have money to purchase Monistat 7. She is asking that something be sent into her pharmacy. [facility]. Please advise. Frances Armijo LPN documented in this encounterUniversity Hospitals Tripoint Medical Center08-28-2023 History of Present illness Narrative* David Brown MD - 03/14/2023 11:45 AM EDT Images from the original note were not included. . [facility] [place] Note Patient name: Tracy Vazquez PCP: Prudencio [...] continues on immunotherapy and has been using uxui-vkv-kdbmmhg antihistamine but she hasnot been using her nasal spray. 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 Mcdonald-ID Persistent cough 07/2022 Tobacco [...] Puffs as instructed every 4 hours asneeded. vznqhpywmwi-dzihufjotaqed-qolqavxiu alafenamide (BIKTARVY) 50-200-25 mg per tablet [facility]. Social History Tobacco Use Smoking [...] enrolled in lung cancer screening program through [facility]. Due for CT in August David Brown MD [facility] [place] documented in this encounterUniversity Hospitals Tripoint Medical Center08-07-2023 Miscellaneous Notes* Telephone Encounter - [...] and advise. Stephenie Lafleur documented in this encounterUniversity Hospitals Tripoint Medical Center08-03-2023 Miscellaneous Notes* Telephone Encounter - Azalea Betancourt LPN - 02/17/2023 7:20 AM EDT Pt made aware. Azalea Betancourt LPN * Telephone Encounter - Louie Tyson PA - 02/17/2023 7:14 AM EDT Please let patient know she tested positive for bacterial vaginosis. This is not an STD. It is an overgrowth of bacteria. Metronidazole sent to [facility]. Please take all of this medication.Do not drink alcohol while taking this medication. documented in this encounterUniversity Hospitals Tripoint Medical Center08-02-2023 History of Present illness Narrative* Pam Garibay PA-C - 02/16/2023 3:24 PM EDT This note was created using Rentablesriter. Subjective Tracy Vazquez is a 53 year [...] is clear HIV (human immunodeficiency virus infection) ([facility]) 2009 Dr. Mcdonald-ID Persistent cough 07/2022 Tobacco [...] every 4 hours asneeded. 1 Inhaler 1 njlqdnfqmas-lxzunqpmvwavl-yrtcdnlur alafenamide (BIKTARVY) 50-200-25 mg per tablet Take [...] CULTURE Pam Garibay PA-C documented in this encounterUniversity Hospitals Tripoint Medical Center06-21-2023 Miscellaneous Notes* Telephone Encounter - Jes Harry LPN - 01/05/2023 8:02 AM EDT PATIENT NOTIFIED OF SAME. * Telephone Encounter - Mara Kaiser APRN.CNP - 01/05/2023 7:12 AM EDT Please notify of negative covid test. Continue comfort measures for symptoms as you would for a cold. Any worsening symptoms follow up with PCP or ER. Mara Kaiser APRN.NURSING TEACHER documented in this encounterUniversity Hospitals Tripoint Medical Center05-13-2023 Miscellaneous Notes* Telephone Encounter - [...] 07/06/2022 8. : No Protocols used: Skin Hvknrm-GVRTY-OA documented in this encounterUniversity Hospitals Tripoint Medical Center05-05-2023 Miscellaneous Notes* Telephone Encounter - [...] range. Diamond Bright APRN.CNP documented in this encounterUniversity Hospitals Tripoint [facility] Center05-05-2023 Miscellaneous Notes* Telephone Encounter - Blanca Rojo LPN - 11/19/2022 8:02 AM EDT Images from the original note were not included. Patient calling asking for lab results. VITAMIN D 25 HYDROXY Order: [id number] Status: Final result Visible to patient: No (inaccessible in MyChart) Dx: Vitamin D deficiency 1 Result Note Component Ref Range & Units 2 d ago 3 mo ago Vitamin D 25 Hydroxy 31.0 - 80.0 ng/mL 68.2 17.4 Low CM Resulting Agency [facility] CCM Specimen Collected: 11/17/22 2:56 PM EDT [...] Top Went over results from Diamond Bright CARD FILER with understanding. documented in this encounterUniversity Hospitals Tripoint Medical Center05-03-2023 History of Present illness Narrative* Diamond Bright APRN.CNP - 11/17/2022 2:44 PM EDT 11/17/2022 Patient presents with: Acute Visit: Wants vitamin D checked Nicotine Dependence: Wants to talk about smoking cessation SUBJECTIVE: This is a 52 year old that is here today for Above Complaints.. Would like her vitamin D rechecked. Finished her 03479 units.Feels tired. Want to stop smoking. Does [...] Puffs as instructed every 4 hours asneeded. ecsjuirqhwm-zrtxhmndsibvh-xyljfsjwq alafenamide (BIKTARVY) 50-200-25 mg per tablet Take [...] MG/24 HR DAILY TRANSDERMAL PATCH Diamond Bright APRN.ANALILIA Prescription instructions reviewed with [...] which included preparing to see the patient, zxsq-uk-rdaw patient care, completing clinical documentation, obtaining and/or reviewing separately obtained history, performing a medically appropriate examination, counseling and educating the pat ient/family/caregiver, and ordering medications, tests, or procedures. documented in this encounterUniversity Hospitals Tripoint Medical Center04-24-2023 Miscellaneous Notes* Telephone Encounter - [...] and advise. Abigail Rich documented in this encounterUniversity Hospitals Tripoint Medical Center04-21-2023 History of Present illness Narrative* Meagan Ribeiro APRN.NURSING TEACHER - 11/05/2022 2:36 PM EDT Images from the original note were not included. Subjective Animal Bite Tracy Vazquez is a 52 year old female who presents with multiple scratches from her cat. This is her emotional support animal and we have seen her here in [facility] 3 times this year for [...] is clear HIV (human immunodeficiency virus infection) (FORMERLY [facility]) 2009 Dr. Mcdonald-ID Persistent cough 07/2022 Tobacco [...] Puffs as instructed every 4 hours asneeded. mhbggeaohhy-nbethtzhgalvi-dsaisrgps alafenamide (BIKTARVY) 50-200-25 mg per tablet Take [...] analgesia. - Discussed expected course of illness Meagan Praisler-Wood, PHOTOGRAPHY PROFESSOR.NURSING TEACHER documented in this encounterUniversity Hospitals Tripoint Medical Center04-21-2023 Instructions* Patient Instructions* Meagan Ribeiro APRN.CNP - 11/05/2022 2:35 PM EDT [...] analgesia. - Discussed expected course of illness Meagan Ribeiro APRN.CNP documented in this encounterUniversity Hospitals Tripoint Medical Center04-17-2023 History of Present illness Narrative* Pam Garibay PA-C - 11/01/2022 1:52 PM EDT This note was created using Rentablesriter. Subjective Tracy Vazquez is a 52 year [...] is clear HIV (human immunodeficiency virus infection) (FORMERLY [facility]) [address] Dr. Mcdonald-ID Persistent cough 07/2022 Tobacco [...] every 4 hours asneeded. 1 Inhaler 1 qnfaarlrpsv-ivixrzgorwnej-jaevyatsg alafenamide (BIKTARVY) 50-200-25 mg per tablet Take [...] UTD. Pam Garibay PA-C documented in this encounterUniversity Hospitals Tripoint Medical Center04-04-2023 Miscellaneous Notes* Telephone Encounter - Mattie Serrano LPN - 10/19/2022 2:14 PM EDT Patient returned call, given below results/recommendations. She is currently at work, will call in to scheduled repeat in 6 months. Mattie Serrano LPN * Telephone Encounter - iMtzi Ibarra RN - 10/19/2022 2:12 PM EDT [...] months to monitor closely. documented in this encounterUniversity Hospitals Tripoint Medical Center04-04-2023 History of Present illness Narrative* [...] 19, 2022 11:59 AM documented in this encounterUniversity Hospitals Tripoint Medical Center04-04-2023 History of Present illness Narrative* Aliyah Peng RT(R) - 10/19/2022 11:00 AM EDT Radiology Service [...] 19, 2022 10:56 AM documented in this encounterUniversity Hospitals Tripoint Medical Center03-06-2023 Miscellaneous Notes* Telephone Encounter - Kamryn Fontana RN - 09/20/2022 4:58 PM EST Spoke with patient. Given message from provider's office. Patient verbalizes understanding. Transferred to MANAGER EDUCATIONAL for appointment. Kamryn Fontana RN * Telephone Encounter - Coretta Fierro RN - 09/20/2022 4:50 PM EST VM left for pt to call PCP office for provider's message below. Coretta Fierro RN * Telephone Encounter - Leo Cheatham DO - 09/20/2022 4:15 PM EST Please make her an appt in MANAGER EDUCATIONAL office Leo Cheatham DO * Telephone Encounter [...] cancellation. 7. -: no Protocols used: Breast Svvfohuz-XNTIG-IQ documented in this encounterUniversity Hospitals Tripoint Medical Center02-28-2023 Miscellaneous Notes* Letter - Mammography Coordinator - 09/14/2022 4:50 PM EST September 15, 2022 PID: [id number] Tracy [address] [place] [address] Dear Ms. Vazquez, Your recent breast imaging exam on 09/13/2022 showed a possible finding that requires additional imaging studies for a complete evaluation. Most such findings are probably benign (not cancer). If you have a healthcare provider who ordered/prescribed your screening mammogram: Please call [phone] or [phone]: [phone] to schedule an appointment for your additional [...] and reports are kept on file at [facility] as part of your permanent medical record, and are available for your continuing care. Thank you for allowing us to help in meeting your health care needs. Sincerely, Dr. Quispe Interpreting Radiologist [facility] (Additional imaging) documented in this encounterUniversity Hospitals Tripoint Medical Center02-24-2023 Miscellaneous Notes* Telephone Encounter - Tian Naylor LPN - 09/10/2022 8:53 AM EST Patient notified Alpha-1 result normal. Tian Naylor LPN * Telephone Encounter - Roxane Evans RN - 09/10/2022 8:24 AM EST Pt calling in asking for results of lab tests done yesterday 09/09/22. Please advise. Pt is going towork soon, so if does not answer callback okay to leave VM per pt Roxane Evans RN documented in this encounterUniversity Hospitals Tripoint Medical Center02-22-2023 Miscellaneous Notes* Telephone Encounter - [...] if symptoms are not improving. Rob Chirinos APRN.CNP documented in this encounterUniversity Hospitals Tripoint Medical Center02-21-2023 Instructions* Patient Instructions* Rob Chirinos [...] or concerning to you. documented in this encounterUniversity Hospitals Tripoint Medical Center02-21-2023 History of Present illness Narrative* [...] Puffs as instructed every 4 hours asneeded. elejsipcjth-aoclsxaxriicj-yfjhuxclo alafenamide (BIKTARVY) 50-200-25 mg per tablet Take [...] of care. This note was generated using Figure [employer] software. It may contain errors in wording, punctuation, or spelling. Rob Chirinos APRN.NURSING TEACHER documented in this encounterUniversity Hospitals Tripoint Medical Center02-20-2023 Miscellaneous Notes* Telephone Encounter - Jason Boston RN - 09/06/2022 4:30 PM EST Pt called and is notified of providers message and instructions. Pt voices understanding. Jason Boston RN * Addendum Note - Prudencio [...] and she is almost out. Uses [facility] [place]. Please call pt with update. Thank you. * Telephone Encounter - Jason Boston RN - 09/06/2022 10:37 AM EST Pt called and is notified of providers message and instructions. Pt voices understanding. Pt statesshe has only been having diarrhea once in the morning, but it has had mucus in it and smells bad. Jason Boston RN * Telephone Encounter - Prudencio Pedro MD - 09/06/2022 10:10 AM EST Probiotic is available over the counter. I would have her car pick up driver a lactobacillus or acidophilus atlocal pharmacy. Please call with more than 5 BMs per day with mucous and foul odor or abdominal pain. * Telephone Encounter - Jason Boston RN - 09/06/2022 9:56 AM EST [...] Value 08/02/2022 19 Please advise. Thank you. Jason Boston RN documented in this encounterUniversity Hospitals Tripoint Medical Center02-16-2023 History of Present illness Narrative* [...] Puffs as instructed every 4 hours asneeded. gyfofxlwtwh-avplkcsiuadpc-wbouhlxnu alafenamide (BIKTARVY) 50-200-25 mg per tablet Take [...] detail. Prudencio Pedro MD documented in this encounterUniversity Hospitals Tripoint Medical Center02-16-2023 Miscellaneous Notes* Telephone Encounter - [...] to help with this. documented in this encounterUniversity Hospitals Tripoint Medical Center02-08-2023 Miscellaneous Notes* Telephone Encounter - Kamryn Fontana RN - 08/25/2022 5:27 PM EST Spoke with patient. Given message from provider's office. Patient verbalizes understanding. Kamryn Fontana RN * Telephone Encounter - Shraddha Cuevas LPN - 08/25/2022 5:16 PM EST Message left for patient to call back for update. Shraddha Cuevas LPN * Telephone Encounter - Diamond Bright APRN.CNP - 08/25/2022 4:02 PM EST No nodules. Changes consistent with emphysema. Follow-up in one year. Diamond Bright APRN.CNP * Telephone Encounter - Zeny Aquino RN - 08/25/2022 3:52 PM EST Patient calls and states that she had lung screening done at [facility]. Patient had CT Scan done. Patientasking for provider to review and advise. Patient was referred to [facility] pulmonology by Namrata Cho NP. Please review and advise, Zeny Aquino RN documented in this encounterUniversity Hospitals Tripoint Medical Center02-08-2023 Miscellaneous Notes* Telephone Encounter - Kacey Narayanan LPN - 08/25/2022 5:23 PM EST Patient calling regarding returning call to go over results . Conferenced to Kamryn in Dr. Killian at phone number ([phone]) for assistance. Kcaey Narayanan LPN documented in this encounterUniversity Hospitals Tripoint Medical Center02-01-2023 Instructions* Patient Instructions* Diamond Bright APRN.ANALILIA - 08/18/2022 9:24 AM EST Keep area clean, dry and covered Watch area for surrounding redness, excessive warmth, drainage, fever or chills- return to office if this develops. Go to ER with red flag symptoms- which would be red streaking up the leg documented in this encounterUniversity Hospitals Tripoint Medical Center02-01-2023 History of Present illness Narrative* Diamond Bright APRN.ANALILIA - 08/18/2022 9:16 AM EST 08/18/2022 Patient [...] Puffs as instructed every 4 hours asneeded. vdcqajxbqaj-nqpbppnccbagj-yzhgzfvgj alafenamide (BIKTARVY) 50-200-25 mg per tablet Take [...] - FECAL OCCULT BLOOD TEST Diamond Bright APRN.NURSING TEACHER Prescription instructions reviewed with patient as applicable. [...] which included preparing to see the patient, nrwr-sb-tlzv patient care, completing clinical documentation, obtaining and/or reviewing separately obtained history, performing a medically appropriate examination, counseling and educating the pat ient/family/caregiver, and ordering medications, tests, or procedures. documented in this encounterUniversity Hospitals Tripoint Medical Center01-30-2023 Miscellaneous Notes* Telephone Encounter - Jason Boston RN - 08/16/2022 10:14 AM EST Pt called and is notified of providers message and instructions. Pt voices understanding. Jason Boston RN * Telephone Encounter - Prudencio Pedro MD - 08/16/2022 8:33 AM EST We did not check a B12 level on her. Would recommend she take daily multivitamin OTC that contains B12. * Telephone Encounter - Jason Boston RN - 08/16/2022 8:20 AM EST Pt called and is notified of providers message. Pt voices understanding, but states the area is healed up and she doesn't need to come in. Pt was asking about her labs that she had drawn, and providers had put her on D3. She was asking if they would recommend she take B12. Please call and advise. Jason Boston RN * Telephone Encounter - Prudencio Pedro MD - 08/16/2022 8:06 AM EST Agree. If she wants it looked at Diamond and I have openings today and tomorrow. * Telephone Encounter - Jason Boston RN - 08/13/2022 4:47 PM EST [...] had any other directions. documented in this encounterUniversity Hospitals Tripoint Medical Center01-23-2023 Miscellaneous Notes* Addendum Note - Gem Wilder APRN.CNM - 08/09/2022 1:40 PM ESTAddended by: GEM WILDER on: 08/09/2022 01:40 PM Modules accepted: Orders * Addendum Note - Jason Cintron MA - 08/09/2022 1:39 PM ESTAddended by: JASON CINTRON on: 08/09/2022 01:39 PM Modules accepted: Orders documented in this encounterUniversity Hospitals Tripoint Medical Center01-23-2023 History of Present illness Narrative* [...] external genitalia normal, normal Bartholin's glands, urethra, [place]'s glands, no vulvar lesions, no cervical lesions, [...] Level: 3 - Low documented in this encounterUniversity Hospitals Tripoint Medical Center01-19-2023 Miscellaneous Notes* Telephone Encounter - Abigail William LPN - 08/05/2022 5:03 PM EST Phoned patient and message left. * Telephone Encounter - Prudenico Pedro MD - 08/05/2022 4:57 PM EST [...] in prescription for zyrtec? Patient's pharmacy is [facility]. Please review and advise, Zeny Aquino RN documented in this encounterUniversity Hospitals Tripoint Medical Center01-19-2023 Miscellaneous Notes* Telephone Encounter - Cassie Shipley MA - 08/05/2022 8:14 AM EST Patient notified of results, verbalized understanding. Cassie Shipley MA * Telephone Encounter - KERRI Fragoso - 08/05/2022 7:37 AM EST Please let patient know COVID and flu negative. documented in this encounterUniversity Hospitals Tripoint Medical Center01-18-2023 Miscellaneous Notes* Telephone Encounter - Tracy Rausch LPN - 08/04/2022 4:09 PM EST Patient notified. Verbalized understanding. * Telephone Encounter - Diamond Bright APRN.ANALILIA - 08/04/2022 4:01 PM EST She may get the shingrix vaccine at any time. She should check with her insurance to see if they cover in the office or if she needs to go to the pharmacy. Diamond Bright APRN.ANALILIA * Telephone Encounter - [...] problem. Venecia Davies LPN documented in this encounterUniversity Hospitals Tripoint Medical Center01-18-2023 Miscellaneous Notes* Telephone Encounter - [...] over prescription for her. Diamond Bright APRN.CNP * Telephone Encounter - Mitzi Ibarra RN [...] phone patient with reply. documented in this encounterUniversity Hospitals Tripoint Medical Center01-17-2023 Miscellaneous Notes* Telephone Encounter - Shraddha Cuevas LPN - 08/03/2022 4:01 PM EST Patient notified. Voices understanding. hSraddha Cuevas LPN * Telephone Encounter - Diamond Bright APRN.CNP - 08/03/2022 3:34 PM EST Labs within acceptable limits. Vitamin D level still pending. Diamond Bright APRN.CNP * Telephone Encounter - Venecia Davies LPN - 08/03/2022 3:30 PM EST Pt called back and she is home now and can be reached at [phone]. Venecia Davies LPN * Telephone Encounter - Prudencio Pedro MD - 08/03/2022 3:18 PM EST We will call her when they are back. * Telephone Encounter - Jimbo Pacheco Pss - 08/03/2022 2:07 PM EST Patient calling for lab results from yesterday. documented in this encounterUniversity Hospitals Tripoint Medical Center01-17-2023 Miscellaneous Notes* Telephone Encounter - Coretta Fierro RN - 08/03/2022 3:19 PM EST Pt calling and requesting Lung Cancer Screening referral be faxed to [facility] at [phone]. Faxed as requested. Coretta Fierro RN documented in this encounterUniversity Hospitals Tripoint Medical Center01-16-2023 Miscellaneous Notes* Telephone Encounter - Diamond Bright APRN.ANALILIA - 08/02/2022 2:58 PM EST Reviewed. Thanks, Diamond Bright APRN.ANALILIA * Telephone Encounter - Venecia Davies LPN - 08/02/2022 2:37 PM EST Also faxed pulmonary testing to [facility]. Venecia Davies LPN * Telephone Encounter - Venecia Davies LPN - 08/02/2022 2:17 PM EST Pt called back and reports she spoke with [facility] and they can do the Lung Cancer Screening at [facility]. Faxnumber [phone]. Faxed order/OV/face sheet. Done. Venecia Davies LPN * Telephone Encounter - Diamond Bright APRN.CNP - 08/02/2022 2:12 PM EST This is not done locally, the closet is [place], or [place]. Diamond Bright APRN.ANALILIA * Telephone Encounter - LINDA Leyva - 08/02/2022 2:05 PM EST Mitch spoke with patient regarding transportation. Discussed [place] [...] this being able daniela done local unless [facility] has this option. Mitch will see what ARIC Fields has to say about where to best go for lung cancer screening. documented in this encounterUniversity Hospitals Tripoint Medical Center01-16-2023 History of Present illness Narrative* Diamond Bright APRN.CNP - 08/02/2022 9:59 AM EST 08/02/2022 Patient [...] is clear HIV (human immunodeficiency virus infection) (FORMERLY [facility]) [address] Dr[address] Mcdonald-ID Persistent cough 07/2022 Tobacco [...] mouth daily before breakfast. 1/2 hr beforemeal. rqptahsbqax-qjrlreekmodat-cfbdweryw alafenamide (BIKTARVY) 50-200-25 mg per tablet Take 1 tablet bymouth once daily. albuterol HFA (VENTOLIN HFA) 90 [...] No history of dysuria, frequency or incontinence MANAGER EDUCATIONAL: Negative for abnormal vaginal bleeding, abnormal vaginal [...] transportation - ICD9: V15.89, ICD10: Z59.82 - FLAME GOUGER [CONSULT TO SOCIAL WORK] 9. Encounter for [...] agreeable to treatment plan. documented in this encounterUniversity Hospitals Tripoint Medical Center01-13-2023 History of Present illness Narrative* Kathleen Maurice APRN.ANALILIA - 07/30/2022 8:32 AM EST Images from the original note were not included. Subjective Patient came in with complaints of cat bite on left forearm. Patient says it is her own cat. Patient denies any fever chills nausea vomiting swelling redness. The history is provided by the patient. No network engineer administrator was used. Animal Bite Review of Systems [...] is clear HIV (human immunodeficiency virus infection) (FORMERLY [facility]) [address] Dr[address] Mcdonald-ID Persistent cough 07/2022 Tobacco [...] Puffs as instructed every 4 hours asneeded. ykyoibgcknu-xlmwdrcujioce-heguoopqb alafenamide (BIKTARVY) 50-200-25 mg per tablet Take [...] Did review medications in chart with patient. Kathleen Maurice APRN.CNP documented in this encounterUniversity Hospitals Tripoint Medical Center01-05-2023 Miscellaneous Notes* Telephone Encounter - [...] with update. Thank you. documented in this encounterUniversity Hospitals Tripoint Medical Center01-03-2023 History of Present illness Narrative* CHING Orellana - 07/20/2022 9:15 AM EST PULM FUNCTION SMARTBLOCK: Provider: Prudencio Pedro MD Assisting Tech: CHING Orellana Spirometry w/BD: 1 LV - Box: 1 documented in this encounterUniversity Hospitals Tripoint Medical Center12-21-2022 Miscellaneous Notes* Telephone Encounter - [...] need tetanus shot updated. documented in this encounterUniversity Hospitals Tripoint Medical Center12-20-2022 History of Present illness Narrative* Chantel Shah APRN.NURSING TEACHER - 07/06/2022 4:41 PM EST Images from [...] Puffs as instructed every 4 hours asneeded. lyiejarephb-vovmrxigvsvzk-uqzrwhaol alafenamide (BIKTARVY) 50-200-25 mg per tablet Take [...] VACCINE AGE 7+ IM Updated. Chantel Shah APRN.CNP documented in this encounterUniversity Hospitals Tripoint Medical Center12-19-2022 History of Present illness Narrative* Diamond Bright APRN.CNP - 07/05/2022 12:22 PM EST 07/05/2022 Patient [...] Puffs as instructed every 4 hours asneeded. sdkussztyjd-ajqyhbynrojzj-ondhphnyh alafenamide (BIKTARVY) 50-200-25 mg per tablet Take [...] which included preparing to see the patient, pqlz-vo-ohck patient care, completing clinical documentation, obtaining and/or reviewing separately obtained history, performing a medically appropriate examination, and counseling and educating the patient/family/caregiver. documented in this encounterUniversity Hospitals Tripoint Medical Center12-14-2022 Miscellaneous Notes* Telephone Encounter - [...] advise, Zeny Aquino RN documented in this encounterUniversity Hospitals Tripoint Medical Center12-13-2022 History of Present illness Narrative* [...] Puffs as instructed every 4 hours asneeded. zdiafscxomp-cdehjyvemmxqx-odfrdfivk alafenamide (BIKTARVY) 50-200-25 mg per tablet Take [...] YR Prudencio Pedro MD documented in this encounterUniversity Hospitals Tripoint Medical Center12-12-2022 Miscellaneous Notes* Telephone Encounter - [...] advise, Zeny Aquino RN documented in this encounterUniversity Hospitals Tripoint Medical Center12-05-2022 Miscellaneous Notes* Telephone Encounter - Abigail William LPN - 06/21/2022 2:47 PM EST Left detailed message on secure VM regarding provider's message. * Telephone Encounter - Prudencio Pedro MD - 06/21/2022 12:01 PM EST 3 month rx for prevacid sent to pharmacy. Call if not improving symptoms in 1-2 weeks. * Telephone Encounter - Mariangel Connors [facility] - 06/21/2022 11:04 AM EST Tracy Vazquez is calling Prudencio Pedro MD today to request a prescription for GERD,medication to be sent to [facility] in [place], if provider agrees to restarting this medication. Patient is stating it was prevacid Patient has been identified by name and birthdate. Duration of symptoms: N/A Person calling: self Call patient at: at home [phone] (home) Was an appointment scheduled: No Closing statement: Results or non-symptom based questions: Thank you for calling [facility], your call will be returned within the next business day. Mariangel Connors [employer] documented in this encounterUniversity Hospitals Tripoint Medical Center11-21-2022 Miscellaneous Notes* Telephone Encounter - NAMITA Pickens - 06/07/2022 3:19 PM EST Phone call placed to patient, patient voices understanding. NAMITA Pickens * Telephone Encounter - Diamond Bright APRN.CNP - 06/07/2022 3:05 PM EST She can just stop medication. Diamond Bright APRN.ANALILIA * Telephone Encounter - Leda Burdick LPN - 06/07/2022 2:58 PM EST Last [...] advise. Leda Burdick LPN documented in this encounterUniversity Hospitals Tripoint Medical Center11-15-2022 Miscellaneous Notes* Telephone Encounter - [...] Please advise. Thank you. documented in this encounterUniversity Hospitals Tripoint Medical Center11-15-2022 Miscellaneous Notes* Telephone Encounter - [...] weeks. Venecia Davies LPN documented in this encounterUniversity Hospitals Tripoint Medical Center11-11-2022 Miscellaneous Notes* Telephone Encounter - Mitzi Ibarra RN - 05/28/2022 1:11 PM EST Patient returned call and given provider's message below with verbalized understanding. * Telephone Encounter - Jason Boston RN - 05/28/2022 12:19 PM EST Called and left a voicemail for the Patient to call back and ask for a nurse to receive the providers message. Jason Boston RN * Telephone Encounter - Prudencio [...] TB. Please advise patient. documented in this encounterUniversity Hospitals Tripoint Medical Center11-09-2022 Miscellaneous Notes* Telephone Encounter - Prudencio Pedro MD - 05/26/2022 2:55 PM EST Agree. * Telephone Encounter - Venecia Davies LPN - 05/26/2022 2:30 PM EST Pt called back and information listed below given. Pt states she can not take Flonase if makes her nose bleed. Pt was instructed to take Singulair and saline spray. Pt instructed not to take xiao,benadryl, Claritin, Zyrtec, Tylenol PM, Tylenol Sinus, Sleep [...] continuing with Singulair and take Zyrtec or Xiao OTC along with flonase daily. Follow up with ENT for further testing and will await their recommendations. * Telephone Encounter - Jason Boston RN - 05/26/2022 8:13 AM EST [...] to try changing medications. documented in this encounterUniversity Hospitals Tripoint Medical Center10-31-2022 Miscellaneous Notes* Telephone Encounter - Rut Darnell Ma - 05/17/2022 12:45 PM EDT Pt called and notified of message below, verbalized understanding. Rutvivek Darnell Ma * Telephone Encounter - Prudencio [...] get the flu shot? documented in this encounterUniversity Hospitals [facility]point [facility] Center10-17-2022 Miscellaneous Notes* Telephone Encounter - [...] Ayoub. Gely Estrada RN documented in this encounterUniversity Hospitals Tripoint Medical Center09-28-2022 Miscellaneous Notes* Telephone Encounter - Jason Boston RN - 04/14/2022 3:40 PM EDT Pt called and is notified of providers message. Pt voices understanding, states she will probably wait until next week to get it. Jason Boston RN * Telephone Encounter - Diamond Bright APRN.CNP - 04/14/2022 3:34 PM EDT I recommend she get it when she if feeling improved after her COVID-19 infection. Diamond Bright APRN.ANALILIA * Telephone Encounter - Zeny Aquino RN - 04/14/2022 3:27 PM EDT Patient calls and is asking when she can get the flu shot. Patient states she was told at the pharmacy 2- 4 weeks since she tested positive for Covid. Patient is very anxious about waiting due to herbeing immunocompromised and that she works at a [employer]. Please review and advise, Zeny Aquino RN documented in this encounterUniversity Hospitals Tripoint Medical Center09-28-2022 Miscellaneous Notes* Telephone Encounter - Shraddha Cuevas LPN - 04/14/2022 1:18 PM EDT Patient called and made aware. Voices understanding. Declines flonase due to it causing nose bleedsin the past but states she may try the saline spray. Shraddha Cuevas LPN * Telephone Encounter - Diamond Bright APRN.ANALILIA - 04/14/2022 11:49 AM EDT She just [...] advise. Abigail August LPN documented in this encounterUniversity Hospitals Tripoint Medical Center09-26-2022 Miscellaneous Notes* Telephone Encounter - [...] needed to miss her appointment. Diamond Bright APRN.CNP * Telephone Encounter [...] for paxlovid or monoclonal antibodies. Diamond Bright APRN.CNP * Telephone Encounter - Blanca Rojo LPN - 04/10/2022 9:53 AM EDT Patient calling said her COVID test results came back positive. She also is HIV positive since 2009, she was asking for Paxlovid rx. Aware CARD FILER and PCP are both out of office today. Patient said her symptoms began 2.5 months ago with coughing. Patient said she can not do virtual visit does not know how to do that. Aware can not schedule phone visit. Advised to go to [facility] for evaluation.Patient said her transportation will not pick her up since she has COVID, she is afraid of passing to her friend. Advised to wear double mask if friend brings her express care. Patient said she will decide what she is going to do. documented in this encounterUniversity Hospitals Tripoint Medical Center09-23-2022 History of Present illness Narrative* Diamond Bright APRN.NURSING TEACHER - 04/09/2022 11:49 AM EDT Covid 04/09/2022 Patient presents with: ER F/U: [facility] on Mar 18 for bronchitis SUBJECTIVE: This is a 52 year old that is here today for Above Complaints. HOSPITAL/ER FOLLOW UP: Reason for visit: cough and congestion Which facility: [facility] Date of visit: 03/18/2022 Diagnosis: cold symptoms [...] Reports seasonal allergies. Has been using OTC xiao and has tired Claritin and zyrtec in [...] Puffs as instructed every 4 hours asneeded. vufdyxkabvq-fvuiprsrvkzws-cklzqvxap alafenamide (BIKTARVY) 50-200-25 mg per tablet Take 1 tablet bylauth once daily. No current facility-administered medications for [...] side effects discussed, verbalizes understanding Diamond Bright APRN.ANALILIA Prescription instructions reviewed with [...] which included preparing to see the patient, [id number] patient care, completing clinical documentation, obtaining and/or reviewing separately obtained history, performing a medically appropriate examination, counseling and educating the pat ient/family/caregiver, and ordering medications, tests, or procedures. . documented in this encounterUniversity Hospitals Tripoint Medical Center09-19-2022 Miscellaneous Notes* Telephone Encounter - [...] problem. Venecia Davies LPN documented in this encounterUniversity Hospitals Tripoint Medical Center09-15-2022 Miscellaneous Notes* Telephone Encounter - Kacey Schneider Ma - 04/01/2022 11:47 AM EDT Message left for pt to call back. Kacey Schneider MA * Telephone Encounter - Puneet Montiel MD - 04/01/2022 9:54 AM EDT I can give her a little more. If continues, needs seen-even if it is urgent care for continued cough. * Telephone Encounter - Mariangel Connors [facility] - 04/01/2022 8:48 AM EDT Patient is calling for medication doxycycline 100 mg taking it twice daily, this is an antibiotic that she received from the [facility] ER on 03/18/2022. She complains today of that cough lingering and believes she needs more of this. I did offer her an appointment however she has to work and can not come in, will not do virtual appointment and per patient she works seven days a week. Please call patient to advise if she can have an RX sent to [facility] in [place]. Or what else she can do for the lingering cough. Her phone number is [phone] Patient said she was told she had a bacterial infection in the bronchial tubes. This was two weeks ago. documented in this encounterUniversity Hospitals Tripoint Medical Center08-04-2022 History of Present illness Narrative* Prudencio Pedro MD - 02/18/2022 9:55 AM EDT Chief Complaint Patient presents with: Follow Up: cough continues- medication she was Given caused stomach pain HPI Tracy Vazquez is a 52 year old female who is HIV positive who presents here today for Above Complaints. Patient evaluated by Diamond Podlogyumiko on 01/26 for complaint of persistent cough in the morning which started a couple months ago with following HPI: When gets up in the morning hacks.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 03/20/2023 1 1 [facility] for referral (narrative)* Diagnostic Procedure Only (Routine) - Pending Review Specialty Diagnoses / Procedures [facility] Diagnoses Fatigue, unspecified type Daytime somnolence Procedures HOME SLEEP APNEA TEST (HSAT) SLEEP STD AIRFLOW HRT RATE&O2 SAT EFFORT Diamond Carney APRN.CNP [address] [place] [address] [place] [phone] Referral ID Status Reason Start Date Expiration Date Visits Requested Visits Authorized [id number] Pending Review Auto-Generat ed Referral 08/02/2022 08/02/2023 1 1 [facility] for referral (narrative)* Outpatient Procedure (Routine) - Pending Review Specialty Diagnoses / Procedures [facility] Diagnoses Chronic obstructive pulmonary disease, unspecified COPD type (HCC) Procedures SPIROMETRY WITH DILATOR IF OBSTRUCTED BRNCDILAT RSPSE SPMTRY PRE&POST-BRNCDILAT David Saleh MD [address] [place] [address] Res[facility] [place] [phone] Referral ID Status Reason Start Date Expiration Date Visits Requested Visits Authorized [id number] Pending Review Auto-Generat ed Referral 08/27/2022 09/25/2023 1 1 [facility] for referral (narrative)* Diagnostic Procedure Only (Routine) - Pending Review Specialty Diagnoses / Procedures [facility] Referred To Contact [facility] Diagnoses Abnormal mammogram Procedures US BREAST LTD RIGHT US BREAST UNI REAL TIME WITH IMAGE LIMITED Prudencio Pedro MD [address] [place] [address] [facility] Imaging [address] [place] [address] Referral ID Status Reason Start Date Expiration Date Visits Requested Visits Authorized [id number] Pending Review Auto-Generat ed Referral 04/20/2023 11/18/2023 1 1 * Diagnostic Procedure Only (Routine) - Authorized Specialty Diagnoses / Procedures Referred By Xi t Referred To Contact BR IMAGING Diagnoses Abnormal mammogram Procedures ANALIA DIAGNOSTIC RIGHT DIAGNOSTIC MAMMOGRAPHY COMPUTER-AIDED DETCJ UNI Prudencio Pedro MD [address] [place] [address] [facility] Imaging [address] [place] [address] Referral ID Status Reason Start Date Expiration Date Visits Requested Visits Authorized [id number] Authorized Auto-Generat ed Referral 04/20/2023 11/18/2023 1 1 [facility] for referral (narrative)* Outpatient Procedure (Routine) - Authorized Specialty Diagnoses / Procedures [facility] Ref[facility] Diagnoses Centrilobular emphysema (HCC) Procedures SPIROMETRY WITH DILATOR IF OBSTRUCTED BRNCDILAT RSPSE SPMTRY PRE&POST-BRNCDILAT David Saleh MD [address] [place] [address] [facility] [place] [address] [place] [address] Referral ID Status Reason Start Date Expiration Date Visits Requested Visits Authorized [id number] Authorized Auto-Generat ed Referral 03/14/2023 04/12/2024 1 1 [facility] for referral (narrative)* Diagnostic Procedure Only (Routine) - Authorized Specialty Diagnoses / Procedures [facility] Referred To Contact [facility] Diagnoses Abnormal mammogram Procedures ANALIA DIAGNOSTIC RIGHT DIAGNOSTIC MAMMOGRAPHY COMPUTER-AIDED DETCJ UNI Prudencio Pedro MD [address] [place] [address] [facility] [address] [place] [address] Referral ID Status Reason Start Date Expiration Date Visits Requested Visits Authorized [id number] Authorized Auto-Generat ed Referral 05/18/2023 06/16/2024 1 1 * Diagnostic Procedure Only (Routine) - Pending Review Specialty Diagnoses / Procedures Referred By Contac t Referred To Contact [facility] IM[facility] Diagnoses Abnormal mammogram Procedures US BREAST LTD RIGHT US BREAST UNI REAL TIME WITH IMAGE LIMITED Prudencio Pedro MD [address] [place] [address] [facility] [address] [place] [phone] Referral ID Status Reason Start Date Expiration Date Visits Requested Visits Authorized [id number] Pending Review Auto-Generat ed Referral 05/18/2023 06/16/2024 1 1 [facility] for referral (narrative)* Diagnostic Procedure Only (Routine) - Closed Specialty Diagnoses / Procedures Referred By Contac t Referred To Contact XR IMAGING Diagnoses Pain in left wrist Procedures XR WRIST GENERAL 3V PA/LAT/OBL LEFT RADEX WRIST COMPLETE MINIMUM 3 VIEWS Bruce Wilson MD [address] [place] [address] Xr Imaging [facility] Referral ID Status Reason Start Date Expiration Date V isits Requested Visits Authorized [id number] Closed Auto-Generate d Referral 05/04/2023 06/02/2024 1 1 [facility] for referral (narrative)* Diagnostic Procedure Only (Routine) - Closed Specialty Diagnoses / Procedures Referred By Contac t Referred To Contact BR IMAGING Diagnoses Abnormal mammogram Procedures US BREAST LTD RT US BREAST UNI REAL TIME WITH IMAGE LIMITED Prudencio Pedro MD [address] [place] [address] [facility] [address] [place] [address] Referral ID Status Reason Start Date Expiration Date V isits Requested Visits Authorized [id number] Closed Auto-Generate d Referral 09/15/2022 10/15/2023 1 1 [facility] for referral (narrative)* Diagnostic Procedure Only (Routine) - Closed Specialty Diagnoses / Procedures Referred By Xi manning Referred To Contact BR IMAGING Diagnoses Encounter for screening mammogram for breast cancer Procedures ANALIA SCREENING SCREENING MAMMOGRAPHY BI 2-VIEW BREAST INC CAD Prudencio Pedro MD [address] [place] [address] [facility] [place] [address] Referral ID Status Reason Start Date Expiration Date V isits Requested Visits Authorized [id number] Closed Auto-Generate d Referral 01/20/2022 02/19/2023 1 1 [facility] for referral (narrative)* Diagnostic Procedure Only (Routine) - Closed Specialty Diagnoses / Procedures Referred By Xi manning Referred To Contact [facility] IMAG[facility] Diagnoses Abnormal mammogram Procedures US BREAST LTD RIGHT US BREAST UNI REAL TIME WITH IMAGE LIMITED Prudencio Pedro MD [address] [place] [address] [facility] [address] [place] [address] Referral ID Status Reason Start Date Expiration Date V isits Requested Visits Authorized [id number] Closed Auto-Generate d Referral 04/20/2023 11/18/2023 1 1 T [facility] for referral (narrative)* Outpatient Procedure (Routine) - Authorized Specialty Diagnoses / Procedures Referred By Xi manning Referred To Contact [facility] Diagnoses Screening for colon cancer Procedures COLONOSCOPY SCREENING COLONOSCOPY FLX DX W/COLLJ SPEC WHEN PFRMD Diamond Bright APRN.NURSING TEACHER [address] [place] [address] [facility] [place] [address] [place] [address] Referral ID Status Reason Start Date Expiration Date Visits Requested Visits Authorized [id number] Authorized Auto-Generat ed Referral 09/07/2023 09/07/2024 1 1 [facility] for referral (narrative)* Diagnostic Procedure Only (Routine) - Pending Review Specialty Diagnoses / Procedures Referred By Xi manning Referred To Contact BR IMAGING Diagnoses Encounter for screening mammogram for breast cancer Procedures ANALIA SCREENING SCREENING MAMMOGRAPHY BI 2-VIEW BREAST INC CAD Prudencio Pedro MD [address] [place] [address] [facility] [address] [place] [address] Referral ID Status Reason Start Date Expiration Date Visits Requested Visits Authorized [id number] Pending Review Auto-Generat ed Referral 10/19/2023 11/17/2024 1 1 T [facility] for referral (narrative)* Diagnostic Procedure Only (Routine) - Pending Review Specialty Diagnoses / Procedures Referred By iX manning Referred To Contact [facility] IMAG[facility] Diagnoses Abnormal mammogram Procedures ANALIA DIAGNOSTIC BILATERAL DIAGNOSTIC MAMMOGRAPHY COMPUTER-AIDED DETCJ BI Diamond Bright APRN.NURSING TEACHER [address] [place] [address] [facility] [address] [place] [address] Referral ID Status Reason Start Date Expiration Date Visits Requested Visits Authorized [id number] Pending Review Auto-Generat ed Referral 11/01/2023 11/30/2024 1 1 [facility] for referral (narrative)* Outpatient Procedure (Routine) - New Request Specialty Diagnoses / Procedures Referred By Contac t Referred To Contact [facility] Diagnoses Pre-op evaluation Procedures ECG COMPLETE ECG ROUTINE ECG W/LEAST 12 LDS W/I&R Prudencio Pedro MD [address] [place] [address] [facility] [place] [address] [facility] [place] [address] Referral ID Status Reason Start Date Expiration Date Visits Requested Visits Authorized [id number] New Request Auto-Generat ed Referral 03/21/2024 03/21/2025 1 1 [facility] for referral (narrative)* Diagnostic Procedure Only (Urgent) - Closed Specialty Diagnoses / Procedures Referred By Contac t Referred To Contact XR IMAGING Diagnoses Acute pain of left shoulder Procedures XR SHOULDER GENERAL 3V OR MORE AP/TRUE AP/OTHER LEFT RADEX SHOULDER COMPLETE MINIMUM 2 VIEWS [facility] [address] [place] [address] Xr Imaging [facility] Referral ID Status Reason Start Date Expiration Date V isits Requested Visits Authorized [id number] Closed Auto-Generate d Referral 06/13/2023 07/12/2024 1 1 [facility] for referral (narrative)* Diagnostic Procedure Only (Routine) - Closed Specialty Diagnoses / Procedures Referred By Contac t Referred To Contact XR IMAGING Diagnoses Fall, initial encounter Injury of left wrist, initial encounter Procedures XR WRIST GENERAL 3V PA/LAT/OBL LEFT RADEX WRIST COMPLETE MINIMUM 3 VIEWS Aliyah Araujo, DARIUS.NURSING TEACHER [address] [place] [address] [place] [address] Referral ID Status Reason Start Date Expiration Date V isits Requested Visits Authorized [id number] Closed Auto-Generate d Referral 04/18/2023 05/17/2024 1 1 * Diagnostic Procedure Only (Routine) - Closed Specialty Diagnoses / Procedures Referred By Contac t Referred To Contact XR IMAGING Diagnoses Fall, initial encounter Rib pain on left side Procedures XR RIBS 2V AP/OBL LEFT RADEX RIBS UNILATERAL 2 VIEWS Aliyah Araujo APRN.NURSING TEACHER [address] [place] [address] Xr Imaging [facility] Referral ID Status Reason Start Date Expiration Date V isits Requested Visits Authorized [id number] Closed Auto-Generate d Referral 04/18/2023 05/17/2024 1 1 [facility] for referral (narrative)* Outpatient Procedure (Routine) - New Request Specialty Diagnoses / Procedures Referred By Contac t Referred To Contact [facility] Diagnoses Pulmonary emphysema, unspecified emphysema type (HCC) Procedures LUNG VOLUMES Ayad Metcalf APRN.ANALILIA [address] [facility] [place] [phone] [facility] [place] [address] [place] [address] Referral ID Status Reason Start Date Expiration Date Visits Requested Visits Authorized [id number] New Request Auto-Generat ed Referral 08/22/2024 09/21/2025 1 1 * Outpatient Procedure (Routine) - New Request Specialty Diagnoses / Procedures Referred By Contac t Referred To Contact [facility] Diagnoses Pulmonary emphysema, unspecified emphysema type (HCC) Procedures SPIROMETRY WITH DILATOR IF OBSTRUCTED BRNCDILAT RSPSE SPMTRY PRE&POST-BRNCDILAT ADMN Ayad Metcalf APRN.NURSING TEACHER [address] [facility] [place] [phone] [facility] [place] [address] [place] [phone] Referral ID Status Reason Start Date Expiration Date Visits Requested Visits Authorized [id number] New Request Auto-Generat ed Referral 08/22/2024 09/21/2025 1 1 [facility] for referral (narrative)No reason for referral information [facility]WThe [facility] Work Phone: Reason for visit Narrative* Diagnostic Procedure Only (Routine) - Closed Specialty Diagnoses / Procedures Referred By Contac t Referred To Contact XR IMAGING Diagnoses Pain in left wrist Procedures XR WRIST GENERAL 3V PA/LAT/OBL LEFT RADEX WRIST COMPLETE MINIMUM 3 VIEWS Bruce Wilson MD [address] [place] [address] [place] [address] Referral ID Status Reason Start Date Expiration Date V isits Requested Visits Authorized [id number] Closed Auto-Generate d Referral 05/04/2023 06/02/2024 1 1 [facility] for visit Narrative* Diagnostic Procedure Only (Routine) - Closed Specialty Diagnoses / Procedures Referred By Contac t Referred To Contact BR IMAGING Diagnoses Encounter for screening mammogram for breast cancer Procedures ANALIA SCREENING SCREENING MAMMOGRAPHY BI 2-VIEW BREAST INC CAD Prudencio Pedro MD [address] [place], [place] [id number] [facility] [address] [place] [address] Referral ID Status Reason Start Date Expiration Date V isits Requested Visits Authorized [id number] Closed Auto-Generate d Referral 01/20/2022 02/19/2023 1 1 [facility] for visit Narrative* Diagnostic Procedure Only (Routine) - Closed Specialty Diagnoses / Procedures Referred By Contac t Referred To Contact BR IMAGING Diagnoses Abnormal mammogram Procedures ANALIA DIAGNOSTIC RIGHT DIAGNOSTIC MAMMOGRAPHY COMPUTER-AIDED DETCJ Prudencio Campoverde MD [address] [place] [address] Br Imaging [address] [place] [address] Referral ID Status Reason Start Date Expiration Date V isits Requested Visits Authorized [id number] Closed Auto-Generate d Referral 04/20/2023 11/18/2023 1 1 [facility] for visit Narrative* Diagnostic Procedure Only (Routine) - Closed Specialty Diagnoses / Procedures Referred By Contac t Referred To Contact BR IMAGING Diagnoses Abnormal mammogram Procedures ANALIA DIAGNOSTIC RT DIAGNOSTIC MAMMOGRAPHY COMPUTER-AIDED DETCJ Prudencio Campoverde MD [address] [place] [address] Br Imaging [address] [place] [address] Referral ID Status Reason Start Date Expiration Date V isits Requested Visits Authorized [id number] Closed Auto-Generate d Referral 09/15/2022 10/15/2023 1 1 [facility] for visit Narrative* Diagnostic Procedure Only (Urgent) - Closed Specialty Diagnoses / Procedures Referred By Contac t Referred To Contact XR IMAGING Diagnoses Acute pain of left shoulder Procedures XR SHOULDER GENERAL 3V OR MORE AP/TRUE AP/OTHER LEFT RADEX SHOULDER COMPLETE MINIMUM 2 VIEWS [facility] [address] [place] [address] [place] [address] Referral ID Status Reason Start Date Expiration Date V isits Requested Visits Authorized [id number] Closed Auto-Generate d Referral 06/13/2023 07/12/2024 1 1 [facility] for visit Narrative* Diagnostic Procedure Only (Routine) - Closed Specialty Diagnoses / Procedures Referred By Contac t Referred To Contact XR IMAGING Diagnoses Fall, initial encounter Injury of left wrist, initial encounter Procedures XR WRIST GENERAL 3V PA/LAT/OBL LEFT RADEX WRIST COMPLETE MINIMUM 3 VIEWS Aliyah Araujo APRN.NURSING TEACHER [address] [place] [address] [place] [address] Referral ID Status Reason Start Date Expiration Date V isits Requested Visits Authorized [id number] Closed Auto-Generate d Referral 04/18/2023 05/17/2024 1 1 [facility] Reason for Referral Specialty Diagnoses / Procedures Referred By Contac t Referred To Contact Diagnoses Acute cough [employer]logarDiamond PHOTOGRAPHY PROFESSOR.NURSING TEACHER [address] [place] [address] Referral ID Status Reason Start Date Expiration Date Visits Re quested Visits Authorized [id number] Closed 1 1 Specialty Diagnoses / Procedures Referred By Contac t Referred To Contact Orthopedics Diagnoses Acute pain of left shoulder Procedures CONSULT TO ORTHOPAEDICS OFFICE/OUTPATIENT NEW HIGH MDM 60-74 MINUTES [facility] [address] [place] [address] Referral ID Status Reason Start Date Expiration Date Visits Requested Visits Authorized [id number] Authorized PCP Requested Referral 06/12/2024 1 1 Specialty Diagnoses / Procedures Referred By Xi t Referred To Contact XR IMAGING Diagnoses Acute pain of left shoulder Procedures XR SHOULDER GENERAL 3V OR MORE AP/TRUE AP/OTHER LEFT RADEX SHOULDER COMPLETE MINIMUM 2 VIEWS [facility] [address] [place] [place] [address] [place] [address] Referral ID Status Reason Start Date Expiration Date V isits Requested Visits Authorized [id number] Closed Auto-Generate d Referral 06/13/2023 07/12/2024 1 1 Advance Directives No Advanced Directives Records Found Advance Directive Response Recorded Date/ Time Living Will No May 15 11:48am Power of Forest Patrolman No May 15, 2019 11:48am Advance Directive Response Recorded Date/ Time Living Will No March 18 10:15am Power of Forest Patrolman No March 18, 2022 10:15am Advance Directive Response Recorded Date/ Time Living Will No March 18 9:15am Power of [employer] Patrolman No March 18, 2022 9:15am Advance Directive Response Recorded Date/ Time Living Will No March 03 11:10am Power of [employer] Patrolman No March 03 11:10am Living Will No August 01 5:09pm Power of [employer] Patrolman No August 01, 2024 5:09pm Advance Directive Response Recorded Date/ Time Living Will No March 03 11:10am Power of [employer] Patrolman No March 03 11:10am Living Will No September 25, 2024 8:37pm Power of [employer] Patrolman No September 25 8:37pm Living Will No August 01 5:09pm Power of [employer] Patrolman No August 01, 2024 5:09pm Advance Directive Response Recorded Date/ Time Living Will No March 03 11:10am Do you have a Healthcare Power of Forest Patrolman? No March 03, 2024 11:10am Living Will No September 25, 2024 8:37pm Do you have a Healthcare Power of Forest Patrolman? No September 25, 2024 8:37pm Living Will No August 01 5:09pm Do you have a Healthcare Power of Forest Patrolman? No August 01, 2024 5:09pm Advance Directive Response Recorded Date/ Time Living Will No March 03 11:10am Do you have a Healthcare Power of Forest Patrolman? No March 03, 2024 11:10am Living Will No September 25, 2024 8:37pm Do you have a Healthcare Power of Forest Patrolman? No September 25, 2024 8:37pm Do you have a Healthcare Power of Forest Patrolman? No November 26, 2024 7:02am Living Will No August 01 5:09pm Do you have a Healthcare Power of Forest Patrolman? No August 01, 2024 5:09pm Advance Directive Response Recorded Date/ Time Do you have a Healthcare Power of Forest Patrolman? No November 26, 2024 7:02am Do you have a Healthcare Power of Forest Patrolman? No February 07, 2025 11:25am Advance Directive Response Recorded Date/ Time Do you have a Healthcare Power of Forest Patrolman? No November 26, 2024 7:02am Do you have a Healthcare Power of Forest Patrolman? No February 07, 2025 11:25am Do you have a Healthcare Power of Forest Patrolman? No March 08, 2025 9:18am Advance Directive Response Recorded Date/ Time Do you have a Healthcare Power of Forest Patrolman? No November 26, 2024 7:02am Do you have a Healthcare Power of Forest Patrolman? No February 07, 2025 11:25am Do you have a Healthcare Power of Forest Patrolman? No March 08, 2025 9:18am Do you have a Healthcare Power of Forest Patrolman? No March 15, 2025 6:29pm Advance Directive Response Recorded Date/ Time Do you have a Healthcare Power of Forest Patrolman? No February 07, 2025 11:25am Do you have a Healthcare Power of Forest Patrolman? No March 08, 2025 9:18am Do you have a Healthcare Power of Forest Patrolman? No March 15, 2025 6:29pm Chief Complaint and Reason for Visit Chief [...] Date headache August 01, 2024 3 :35pm CARD FILER. EST CARE - PPW SENT August 13 [...] 11, 2024 11:29am Tobacco use disorder, continuous [email or web address] 11:29am Acute pain of both ears September 14 025 9:30am Tinnitus September 14, 2024 9:30am Chronic back pain September 14, 2024 9:30am Headache September 14, 2024 9:30am Pain, dental September 14, 2024 9:30am Chief Complaint Admit Date headache August 01, 2024 3 :35pm CARD FILER. EST CARE - PPW SENT August 13 9:26am Lung Cancer Screening September 11 11:29am SCREENING September 11, 2024 12:21pm EARS AND HEAD INJURY ISSUES August 9:30am E-ORDER September 14, 2024 11:23am SCREENING September 25, 2024 9:1 7am Chief Complaint Admit Date headache August 01, 2024 3 :35pm CARD FILER. EST CARE - PPW SENT August 13 9:26am Lung Cancer Screening September 11 11:29am SCREENING September 11, 2024 12:21pm EARS AND HEAD INJURY ISSUES August 9:30am E-ORDER September 14, 2024 11:23am SCREENING September 25, 2024 9:1 7am HEAD INJURY September 25, 2024 4:4 0pm Chief Complaint Admit Date headache August 01, 2024 3 :35pm CARD FILER. EST CARE - PPW SENT August 13 [...] 11, 2024 11:29am Tobacco use disorder, continuous [email or web address] 11:29am Acute pain of both ears September [...] Date headache August 01, 2024 3 :35pm CARD FILER. EST CARE - PPW SENT August 13 [...] Date headache August 01, 2024 3 :35pm CARD FILER. 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, 2025 12:31pm 6 M FU February 15, 2025 10: 07am abd pain, mucus March 08, 2025 8: 40am Hospital Follow Up ([facility]) March 11 8:36am NAUSEA,ITCHY FEET March 15, 2025 3: 38pm Chief Complaint Admit Date sob November 26, 2024 7:02a m ACUTE [facility] FU-LEAVE 60 MIN November 28, 2024 2:47pm head injury February 07, 2025 11:0 9am 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, 2025 12:31pm 6 M FU February 15, 2025 10: 07am abd pain, mucus March 08, 2025 8: 40am Hospital Follow Up ([facility]) March 11 8:36am NAUSEA,ITCHY FEET March 15, 2025 3: 38pm ITCHY FEET, NAUSEA March 15, 2025 5: 05pm Chief Complaint Admit Date head injury February 07, 2025 11:0 9am 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, 2025 12:31pm 6 M FU February 15, 2025 10: 07am abd pain, mucus March 08, 2025 8: 40am Hospital Follow Up ([facility]) March 11 8:36am NAUSEA,ITCHY FEET March 15, 2025 3: 38pm ITCHY FEET, NAUSEA March 15, 2025 5: 05pm RUQ PAIN April 18, 2025 8: 51am Reason for Visit Admit Date Abnormal kidney function February 15 10:07am Muscle cramps February 15, 2025 10: 07am Tobacco use disorder, continuous February 15, 2025 10:07am COPD (chronic obstructive pulmonary dise ase) February 15, 2025 10:07am HIV (human immunodeficiency virus infect ion) February 15, 2025 10:07am Osteoporosis February 15, 2025 10: 07am Rhinitis February 15, 2025 10: 07am Thickening of wall of gallbladder March 11, 2025 8:36am Abdominal pain March 11, 2025 8: 36am Chief Complaint Admit Date head injury February 07, 2025 11:0 9am 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, 2025 12:31pm 6 M FU February 15, 2025 10: 07am abd pain, mucus March 08, 2025 8: 40am Hospital Follow Up ([facility]) March 11 8:36am NAUSEA,ITCHY FEET March 15, 2025 3: 38pm ITCHY FEET, NAUSEA March 15, 2025 5: 05pm RUQ PAIN April 18, 2025 8: 51am GALLBLADDER May 02, 2025 9 :41am Leg pain May 13, 2025 1 0:22am E-ORDER May 13, 2025 1 1:25am Reason for Visit Admit Date Abnormal kidney function February 15 10:07am Muscle cramps February 15, 2025 10: 07am Tobacco use disorder, continuous February 15, 2025 10:07am COPD (chronic obstructive pulmonary dise ase) February 15, 2025 10:07am HIV (human immunodeficiency virus infect ion) February 15, 2025 10:07am Osteoporosis February 15, 2025 10: 07am Rhinitis February 15, 2025 10: 07am Thickening of wall of gallbladder March 11, 2025 8:36am Abdominal pain March 11, 2025 8: 36am Cholelithiasis May 02, 2025 9 :41am Thickening of wall of gallbladder Octobe r 2024 9:41am Left knee pain May 13, 2025 1 0:22am Health Concerns Infection Onset Date Last Indicated [...] 03/30/2023 03/31/2023 1:33 AM EDT Family History No Family History Records Found Relationship Condition Age at Onset Recorded Date/T [...] or prosecute any alcohol or drug abuse patient.[facility] the event this information is protected by the Federal Confidentiality of Alcohol and Drug Abuse Patient Records regulations: The Federal rules restrict any use of the information to criminally investigate or prosecute any alcohol or drug abuse patient.[facility] CenterIn the event this information is protected by the Federal Confidentiality of Alcohol and Drug Abuse Patient Records regulations: The Federal rules restrict any use of the information to criminally investigate or prosecute any alcohol or drug abuse patient.[facility] CenterIn the event this information is protected by the Federal Confidentiality of Alcohol and Drug Abuse Patient Records regulations: The Federal rules restrict any use of the information to criminally investigate or prosecute any alcohol or drug abuse patient.[facility] CenterIn the event this information is protected by the Federal Confidentiality of Alcohol and Drug Abuse Patient Records regulations: The Federal rules restrict any use of the information to criminally investigate or prosecute any alcohol or drug abuse patient.[facility] CenterIn the event this information is protected by the Federal Confidentiality of Alcohol and Drug Abuse Patient Records regulations: The Federal rules restrict any use of the information to criminally investigate or prosecute any alcohol or drug abuse patient.[facility] CenterIn the event this information is protected by the Federal Confidentiality of Alcohol and Drug Abuse Patient Records regulations: The Federal rules restrict any use of the information to criminally investigate or prosecute any alcohol or drug abuse patient.[facility] CenterIn the event this information is protected by the Federal Confidentiality of Alcohol and Drug Abuse Patient Records regulations: The Federal rules restrict any use of the information to criminally investigate or prosecute any alcohol or drug abuse patient.[facility] CenterIn the event this information is protected by the Federal Confidentiality of Alcohol and Drug Abuse Patient Records regulations: The Federal rules restrict any use of the information to criminally investigate or prosecute any alcohol or drug abuse patient.[facility] CenterIn the event this information is protected by the Federal Confidentiality of Alcohol and Drug Abuse Patient Records regulations: The Federal rules restrict any use of the information to criminally investigate or prosecute any alcohol or drug abuse patient.[facility] CenterIn the event this information is protected by the Federal Confidentiality of Alcohol and Drug Abuse Patient Records regulations: The Federal rules restrict any use of the information to criminally investigate or prosecute any alcohol or drug abuse patient.[facility] CenterIn the event this information is protected by the Federal Confidentiality of Alcohol and Drug Abuse Patient Records regulations: The Federal rules restrict any use of the information to criminally investigate or prosecute any alcohol or drug abuse patient.[facility] CenterIn the event this information is protected by the Federal Confidentiality of Alcohol and Drug Abuse Patient Records regulations: The Federal rules restrict any use of the information to criminally investigate or prosecute any alcohol or drug abuse patient.[facility] CenterIn the event this information is protected by the Federal Confidentiality of Alcohol and Drug Abuse Patient Records regulations: The Federal rules restrict any use of the information to criminally investigate or prosecute any alcohol or drug abuse patient.[facility] CenterIn the event this information is protected by the Federal Confidentiality of Alcohol and Drug Abuse Patient Records regulations: The Federal rules restrict any use of the information to criminally investigate or prosecute any alcohol or drug abuse patient.[facility] CenterIn the event this information is protected by the Federal Confidentiality of Alcohol and Drug Abuse Patient Records regulations: The Federal rules restrict any use of the information to criminally investigate or prosecute any alcohol or drug abuse patient.[facility] CenterIn the event this information is protected by the Federal Confidentiality of Alcohol and Drug Abuse Patient Records regulations: The Federal rules restrict any use of the information to criminally investigate or prosecute any alcohol or drug abuse patient.[facility] CenterIn the event this information is protected by the Federal Confidentiality of Alcohol and Drug Abuse Patient Records regulations: The Federal rules restrict any use of the information to criminally investigate or prosecute any alcohol or drug abuse patient.[facility] CenterIn the event this information is protected by the Federal Confidentiality of Alcohol and Drug Abuse Patient Records regulations: The Federal rules restrict any use of the information to criminally investigate or prosecute any alcohol or drug abuse patient.[facility] CenterIn the event this information is protected by the Federal Confidentiality of Alcohol and Drug Abuse Patient Records regulations: The Federal rules restrict any use of the information to criminally investigate or prosecute any alcohol or drug abuse patient.[facility] CenterIn the event this information is protected by the Federal Confidentiality of Alcohol and Drug Abuse Patient Records regulations: The Federal rules restrict any use of the information to criminally investigate or prosecute any alcohol or drug abuse patient.[facility] CenterIn the event this information is protected by the Federal Confidentiality of Alcohol and Drug Abuse Patient Records regulations: The Federal rules restrict any use of the information to criminally investigate or prosecute any alcohol or drug abuse patient.[facility] CenterIn the event this information is protected by the Federal Confidentiality of Alcohol and Drug Abuse Patient Records regulations: The Federal rules restrict any use of the information to criminally investigate or prosecute any alcohol or drug abuse patient.[facility] CenterIn the event this information is protected by the Federal Confidentiality of Alcohol and Drug Abuse Patient Records regulations: The Federal rules restrict any use of the information to criminally investigate or prosecute any alcohol or drug abuse patient.[facility] CenterIn the event this information is protected by the Federal Confidentiality of Alcohol and Drug Abuse Patient Records regulations: The Federal rules restrict any use of the information to criminally investigate or prosecute any alcohol or drug abuse patient.[facility] CenterIn the event this information is protected by the Federal Confidentiality of Alcohol and Drug Abuse Patient Records regulations: The Federal rules restrict any use of the information to criminally investigate or prosecute any alcohol or drug abuse patient.[facility] CenterIn the event this information is protected by the Federal Confidentiality of Alcohol and Drug Abuse Patient Records regulations: The Federal rules restrict any use of the information to criminally investigate or prosecute any alcohol or drug abuse patient.[facility] CenterIn the event this information is protected by the Federal Confidentiality of Alcohol and Drug Abuse Patient Records regulations: The Federal rules restrict any use of the information to criminally investigate or prosecute any alcohol or drug abuse patient.[facility] CenterIn the event this information is protected by the Federal Confidentiality of Alcohol and Drug Abuse Patient Records regulations: The Federal rules restrict any use of the information to criminally investigate or prosecute any alcohol or drug abuse patient.[facility] CenterIn the event this information is protected by the Federal Confidentiality of Alcohol and Drug Abuse Patient Records regulations: The Federal rules restrict any use of the information to criminally investigate or prosecute any alcohol or drug abuse patient.[facility] CenterIn the event this information is protected by the Federal Confidentiality of Alcohol and Drug Abuse Patient Records regulations: The Federal rules restrict any use of the information to criminally investigate or prosecute any alcohol or drug abuse patient.[facility] CenterIn the event this information is protected by the Federal Confidentiality of Alcohol and Drug Abuse Patient Records regulations: The Federal rules restrict any use of the information to criminally investigate or prosecute any alcohol or drug abuse patient.[facility] CenterIn the event this information is protected by the Federal Confidentiality of Alcohol and Drug Abuse Patient Records regulations: The Federal rules restrict any use of the information to criminally investigate or prosecute any alcohol or drug abuse patient.[facility] CenterIn the event this information is protected by the Federal Confidentiality of Alcohol and Drug Abuse Patient Records regulations: The Federal rules restrict any use of the information to criminally investigate or prosecute any alcohol or drug abuse patient.[facility] CenterIn the event this information is protected by the Federal Confidentiality of Alcohol and Drug Abuse Patient Records regulations: The Federal rules restrict any use of the information to criminally investigate or prosecute any alcohol or drug abuse patient.[facility] CenterIn the event this information is protected by the Federal Confidentiality of Alcohol and Drug Abuse Patient Records regulations: The Federal rules restrict any use of the information to criminally investigate or prosecute any alcohol or drug abuse patient.[facility] CenterIn the event this information is protected by the Federal Confidentiality of Alcohol and Drug Abuse Patient Records regulations: The Federal rules restrict any use of the information to criminally investigate or prosecute any alcohol or drug abuse patient.[facility] CenterIn the event this information is protected by the Federal Confidentiality of Alcohol and Drug Abuse Patient Records regulations: The Federal rules restrict any use of the information to criminally investigate or prosecute any alcohol or drug abuse patient.[facility] CenterIn the event this information is protected by the Federal Confidentiality of Alcohol and Drug Abuse Patient Records regulations: The Federal rules restrict any use of the information to criminally investigate or prosecute any alcohol or drug abuse patient.[facility] CenterIn the event this information is protected by the Federal Confidentiality of Alcohol and Drug Abuse Patient Records regulations: The Federal rules restrict any use of the information to criminally investigate or prosecute any alcohol or drug abuse patient.[facility] CenterIn the event this information is protected by the Federal Confidentiality of Alcohol and Drug Abuse Patient Records regulations: The Federal rules restrict any use of the information to criminally investigate or prosecute any alcohol or drug abuse patient.[facility] CenterIn the event this information is protected by the Federal Confidentiality of Alcohol and Drug Abuse Patient Records regulations: The Federal rules restrict any use of the information to criminally investigate or prosecute any alcohol or drug abuse patient.[facility] CenterIn the event this information is protected by the Federal Confidentiality of Alcohol and Drug Abuse Patient Records regulations: The Federal rules restrict any use of the information to criminally investigate or prosecute any alcohol or drug abuse patient.[facility] CenterIn the event this information is protected by the Federal Confidentiality of Alcohol and Drug Abuse Patient Records regulations: The Federal rules restrict any use of the information to criminally investigate or prosecute any alcohol or drug abuse patient.[facility] CenterIn the event this information is protected by the Federal Confidentiality of Alcohol and Drug Abuse Patient Records regulations: The Federal rules restrict any use of the information to criminally investigate or prosecute any alcohol or drug abuse patient.[facility] CenterIn the event this information is protected by the Federal Confidentiality of Alcohol and Drug Abuse Patient Records regulations: The Federal rules restrict any use of the information to criminally investigate or prosecute any alcohol or drug abuse patient.[facility] CenterIn the event this information is protected by the Federal Confidentiality of Alcohol and Drug Abuse Patient Records regulations: The Federal rules restrict any use of the information to criminally investigate or prosecute any alcohol or drug abuse patient.[facility] CenterIn the event this information is protected by the Federal Confidentiality of Alcohol and Drug Abuse Patient Records regulations: The Federal rules restrict any use of the information to criminally investigate or prosecute any alcohol or drug abuse patient.[facility] CenterIn the event this information is protected by the Federal Confidentiality of Alcohol and Drug Abuse Patient Records regulations: The Federal rules restrict any use of the information to criminally investigate or prosecute any alcohol or drug abuse patient.[facility] CenterIn the event this information is protected by the Federal Confidentiality of Alcohol and Drug Abuse Patient Records regulations: The Federal rules restrict any use of the information to criminally investigate or prosecute any alcohol or drug abuse patient.[facility] CenterIn the event this information is protected by the Federal Confidentiality of Alcohol and Drug Abuse Patient Records regulations: The Federal rules restrict any use of the information to criminally investigate or prosecute any alcohol or drug abuse patient.[facility] CenterIn the event this information is protected by the Federal Confidentiality of Alcohol and Drug Abuse Patient Records regulations: The Federal rules restrict any use of the information to criminally investigate or prosecute any alcohol or drug abuse patient.[facility] CenterIn the event this information is protected by the Federal Confidentiality of Alcohol and Drug Abuse Patient Records regulations: The Federal rules restrict any use of the information to criminally investigate or prosecute any alcohol or drug abuse patient.[facility] CenterIn the event this information is protected by the Federal Confidentiality of Alcohol and Drug Abuse Patient Records regulations: The Federal rules restrict any use of the information to criminally investigate or prosecute any alcohol or drug abuse patient.[facility] CenterIn the event this information is protected by the Federal Confidentiality of Alcohol and Drug Abuse Patient Records regulations: The Federal rules restrict any use of the information to criminally investigate or prosecute any alcohol or drug abuse patient.[facility] CenterIn the event this information is protected by the Federal Confidentiality of Alcohol and Drug Abuse Patient Records regulations: The Federal rules restrict any use of the information to criminally investigate or prosecute any alcohol or drug abuse patient.[facility] CenterIn the event this information is protected by the Federal Confidentiality of Alcohol and Drug Abuse Patient Records regulations: The Federal rules restrict any use of the information to criminally investigate or prosecute any alcohol or drug abuse patient.[facility] CenterIn the event this information is protected by the Federal Confidentiality of Alcohol and Drug Abuse Patient Records regulations: The Federal rules restrict any use of the information to criminally investigate or prosecute any alcohol or drug abuse patient.[facility] CenterIn the event this information is protected by the Federal Confidentiality of Alcohol and Drug Abuse Patient Records regulations: The Federal rules restrict any use of the information to criminally investigate or prosecute any alcohol or drug abuse patient.[facility] CenterIn the event this information is protected by the Federal Confidentiality of Alcohol and Drug Abuse Patient Records regulations: The Federal rules restrict any use of the information to criminally investigate or prosecute any alcohol or drug abuse patient.[facility] CenterIn the event this information is protected by the Federal Confidentiality of Alcohol and Drug Abuse Patient Records regulations: The Federal rules restrict any use of the information to criminally investigate or prosecute any alcohol or drug abuse patient.[facility] CenterIn the event this information is protected by the Federal Confidentiality of Alcohol and Drug Abuse Patient Records regulations: The Federal rules restrict any use of the information to criminally investigate or prosecute any alcohol or drug abuse patient.[facility] CenterIn the event this information is protected by the Federal Confidentiality of Alcohol and Drug Abuse Patient Records regulations: The Federal rules restrict any use of the information to criminally investigate or prosecute any alcohol or drug abuse patient.[facility] CenterIn the event this information is protected by the Federal Confidentiality of Alcohol and Drug Abuse Patient Records regulations: The Federal rules restrict any use of the information to criminally investigate or prosecute any alcohol or drug abuse patient.[facility] CenterIn the event this information is protected by the Federal Confidentiality of Alcohol and Drug Abuse Patient Records regulations: The Federal rules restrict any use of the information to criminally investigate or prosecute any alcohol or drug abuse patient.[facility] CenterIn the event this information is protected by the Federal Confidentiality of Alcohol and Drug Abuse Patient Records regulations: The Federal rules restrict any use of the information to criminally investigate or prosecute any alcohol or drug abuse patient.[facility] CenterIn the event this information is protected by the Federal Confidentiality of Alcohol and Drug Abuse Patient Records regulations: The Federal rules restrict any use of the information to criminally investigate or prosecute any alcohol or drug abuse patient.[facility] CenterIn the event this information is protected by the Federal Confidentiality of Alcohol and Drug Abuse Patient Records regulations: The Federal rules restrict any use of the information to criminally investigate or prosecute any alcohol or drug abuse patient.[facility] CenterIn the event this information is protected by the Federal Confidentiality of Alcohol and Drug Abuse Patient Records regulations: The Federal rules restrict any use of the information to criminally investigate or prosecute any alcohol or drug abuse patient.[facility] CenterIn the event this information is protected by the Federal Confidentiality of Alcohol and Drug Abuse Patient Records regulations: The Federal rules restrict any use of the information to criminally investigate or prosecute any alcohol or drug abuse patient.[facility] CenterIn the event this information is protected by the Federal Confidentiality of Alcohol and Drug Abuse Patient Records regulations: The Federal rules restrict any use of the information to criminally investigate or prosecute any alcohol or drug abuse patient.[facility] CenterIn the event this information is protected by the Federal Confidentiality of Alcohol and Drug Abuse Patient Records regulations: The Federal rules restrict any use of the information to criminally investigate or prosecute any alcohol or drug abuse patient.[facility] CenterIn the event this information is protected by the Federal Confidentiality of Alcohol and Drug Abuse Patient Records regulations: The Federal rules restrict any use of the information to criminally investigate or prosecute any alcohol or drug abuse patient.[facility] CenterIn the event this information is protected by the Federal Confidentiality of Alcohol and Drug Abuse Patient Records regulations: The Federal rules restrict any use of the information to criminally investigate or prosecute any alcohol or drug abuse patient.[facility] CenterIn the event this information is protected by the Federal Confidentiality of Alcohol and Drug Abuse Patient Records regulations: The Federal rules restrict any use of the information to criminally investigate or prosecute any alcohol or drug abuse patient.[facility] CenterIn the event this information is protected by the Federal Confidentiality of Alcohol and Drug Abuse Patient Records regulations: The Federal rules restrict any use of the information to criminally investigate or prosecute any alcohol or drug abuse patient.[facility] CenterIn the event this information is protected by the Federal Confidentiality of Alcohol and Drug Abuse Patient Records regulations: The Federal rules restrict any use of the information to criminally investigate or prosecute any alcohol or drug abuse patient.[facility] CenterIn the event this information is protected by the Federal Confidentiality of Alcohol and Drug Abuse Patient Records regulations: The Federal rules restrict any use of the information to criminally investigate or prosecute any alcohol or drug abuse patient.[facility] CenterIn the event this information is protected by the Federal Confidentiality of Alcohol and Drug Abuse Patient Records regulations: The Federal rules restrict any use of the information to criminally investigate or prosecute any alcohol or drug abuse patient.[facility] CenterIn the event this information is protected by the Federal Confidentiality of Alcohol and Drug Abuse Patient Records regulations: The Federal rules restrict any use of the information to criminally investigate or prosecute any alcohol or drug abuse patient.[facility] CenterIn the event this information is protected by the Federal Confidentiality of Alcohol and Drug Abuse Patient Records regulations: The Federal rules restrict any use of the information to criminally investigate or prosecute any alcohol or drug abuse patient.[facility] CenterIn the event this information is protected by the Federal Confidentiality of Alcohol and Drug Abuse Patient Records regulations: The Federal rules restrict any use of the information to criminally investigate or prosecute any alcohol or drug abuse patient.[facility] CenterIn the event this information is protected by the Federal Confidentiality of Alcohol and Drug Abuse Patient Records regulations: The Federal rules restrict any use of the information to criminally investigate or prosecute any alcohol or drug abuse patient.[facility] CenterIn the event this information is protected by the Federal Confidentiality of Alcohol and Drug Abuse Patient Records regulations: The Federal rules restrict any use of the information to criminally investigate or prosecute any alcohol or drug abuse patient.[facility] CenterIn the event this information is protected by the Federal Confidentiality of Alcohol and Drug Abuse Patient Records regulations: The Federal rules restrict any use of the information to criminally investigate or prosecute any alcohol or drug abuse patient.[facility] CenterIn the event this information is protected by the Federal Confidentiality of Alcohol and Drug Abuse Patient Records regulations: The Federal rules restrict any use of the information to criminally investigate or prosecute any alcohol or drug abuse patient.[facility] CenterIn the event this information is protected by the Federal Confidentiality of Alcohol and Drug Abuse Patient Records regulations: The Federal rules restrict any use of the information to criminally investigate or prosecute any alcohol or drug abuse patient.[facility] CenterIn the event this information is protected by the Federal Confidentiality of Alcohol and Drug Abuse Patient Records regulations: The Federal rules restrict any use of the information to criminally investigate or prosecute any alcohol or drug abuse patient.[facility] CenterIn the event this information is protected by the Federal Confidentiality of Alcohol and Drug Abuse Patient Records regulations: The Federal rules restrict any use of the information to criminally investigate or prosecute any alcohol or drug abuse patient.[facility] CenterIn the event this information is protected by the Federal Confidentiality of Alcohol and Drug Abuse Patient Records regulations: The Federal rules restrict any use of the information to criminally investigate or prosecute any alcohol or drug abuse patient.[facility] CenterIn the event this information is protected by the Federal Confidentiality of Alcohol and Drug Abuse Patient Records regulations: The Federal rules restrict any use of the information to criminally investigate or prosecute any alcohol or drug abuse patient.[facility] CenterIn the event this information is protected by the Federal Confidentiality of Alcohol and Drug Abuse Patient Records regulations: The Federal rules restrict any use of the information to criminally investigate or prosecute any alcohol or drug abuse patient.[facility] CenterIn the event this information is protected by the Federal Confidentiality of Alcohol and Drug Abuse Patient Records regulations: The Federal rules restrict any use of the information to criminally investigate or prosecute any alcohol or drug abuse patient.[facility] CenterIn the event this information is protected by the Federal Confidentiality of Alcohol and Drug Abuse Patient Records regulations: The Federal rules restrict any use of the information to criminally investigate or prosecute any alcohol or drug abuse patient.[facility] CenterIn the event this information is protected by the Federal Confidentiality of Alcohol and Drug Abuse Patient Records regulations: The Federal rules restrict any use of the information to criminally investigate or prosecute any alcohol or drug abuse patient.[facility] CenterIn the event this information is protected by the Federal Confidentiality of Alcohol and Drug Abuse Patient Records regulations: The Federal rules restrict any use of the information to criminally investigate or prosecute any alcohol or drug abuse patient.[facility] CenterIn the event this information is protected by the Federal Confidentiality of Alcohol and Drug Abuse Patient Records regulations: The Federal rules restrict any use of the information to criminally investigate or prosecute any alcohol or drug abuse patient.[facility] CenterIn the event this information is protected by the Federal Confidentiality of Alcohol and Drug Abuse Patient Records regulations: The Federal rules restrict any use of the information to criminally investigate or prosecute any alcohol or drug abuse patient.[facility] CenterIn the event this information is protected by the Federal Confidentiality of Alcohol and Drug Abuse Patient Records regulations: The Federal rules restrict any use of the information to criminally investigate or prosecute any alcohol or drug abuse patient.[facility] CenterIn the event this information is protected by the Federal Confidentiality of Alcohol and Drug Abuse Patient Records regulations: The Federal rules restrict any use of the information to criminally investigate or prosecute any alcohol or drug abuse patient.[facility] CenterIn the event this information is protected by the Federal Confidentiality of Alcohol and Drug Abuse Patient Records regulations: The Federal rules restrict any use of the information to criminally investigate or prosecute any alcohol or drug abuse patient.[facility] CenterIn the event this information is protected by the Federal Confidentiality of Alcohol and Drug Abuse Patient Records regulations: The Federal rules restrict any use of the information to criminally investigate or prosecute any alcohol or drug abuse patient.[facility] CenterIn the event this information is protected by the Federal Confidentiality of Alcohol and Drug Abuse Patient Records regulations: The Federal rules restrict any use of the information to criminally investigate or prosecute any alcohol or drug abuse patient.[facility] CenterIn the event this information is protected by the Federal Confidentiality of Alcohol and Drug Abuse Patient Records regulations: The Federal rules restrict any use of the information to criminally investigate or prosecute any alcohol or drug abuse patient.[facility] CenterIn the event this information is protected by the Federal Confidentiality of Alcohol and Drug Abuse Patient Records regulations: The Federal rules restrict any use of the information to criminally investigate or prosecute any alcohol or drug abuse patient.[facility] CenterIn the event this information is protected by the Federal Confidentiality of Alcohol and Drug Abuse Patient Records regulations: The Federal rules restrict any use of the information to criminally investigate or prosecute any alcohol or drug abuse patient.[facility] CenterIn the event this information is protected by the Federal Confidentiality of Alcohol and Drug Abuse Patient Records regulations: The Federal rules restrict any use of the information to criminally investigate or prosecute any alcohol or drug abuse patient.[facility] CenterIn the event this information is protected by the Federal Confidentiality of Alcohol and Drug Abuse Patient Records regulations: The Federal rules restrict any use of the information to criminally investigate or prosecute any alcohol or drug abuse patient.[facility] CenterIn the event this information is protected by the Federal Confidentiality of Alcohol and Drug Abuse Patient Records regulations: The Federal rules restrict any use of the information to criminally investigate or prosecute any alcohol or drug abuse patient.[facility] CenterIn the event this information is protected by the Federal Confidentiality of Alcohol and Drug Abuse Patient Records regulations: The Federal rules restrict any use of the information to criminally investigate or prosecute any alcohol or drug abuse patient.[facility] CenterIn the event this information is protected by the Federal Confidentiality of Alcohol and Drug Abuse Patient Records regulations: The Federal rules restrict any use of the information to criminally investigate or prosecute any alcohol or drug abuse patient.[facility] CenterIn the event this information is protected by the Federal Confidentiality of Alcohol and Drug Abuse Patient Records regulations: The Federal rules restrict any use of the information to criminally investigate or prosecute any alcohol or drug abuse patient.[facility] CenterIn the event this information is protected by the Federal Confidentiality of Alcohol and Drug Abuse Patient Records regulations: The Federal rules restrict any use of the information to criminally investigate or prosecute any alcohol or drug abuse patient.[facility] CenterIn the event this information is protected by the Federal Confidentiality of Alcohol and Drug Abuse Patient Records regulations: The Federal rules restrict any use of the information to criminally investigate or prosecute any alcohol or drug abuse patient.[facility] CenterIn the event this information is protected by the Federal Confidentiality of Alcohol and Drug Abuse Patient Records regulations: The Federal rules restrict any use of the information to criminally investigate or prosecute any alcohol or drug abuse patient.[facility] CenterIn the event this information is protected by the Federal Confidentiality of Alcohol and Drug Abuse Patient Records regulations: The Federal rules restrict any use of the information to criminally investigate or prosecute any alcohol or drug abuse patient.[facility] CenterIn the event this information is protected by the Federal Confidentiality of Alcohol and Drug Abuse Patient Records regulations: The Federal rules restrict any use of the information to criminally investigate or prosecute any alcohol or drug abuse patient.[facility] CenterIn the event this information is protected by the Federal Confidentiality of Alcohol and Drug Abuse Patient Records regulations: The Federal rules restrict any use of the information to criminally investigate or prosecute any alcohol or drug abuse patient.[facility] CenterIn the event this information is protected by the Federal Confidentiality of Alcohol and Drug Abuse Patient Records regulations: The Federal rules restrict any use of the information to criminally investigate or prosecute any alcohol or drug abuse patient.[facility] CenterIn the event this information is protected by the Federal Confidentiality of Alcohol and Drug Abuse Patient Records regulations: The Federal rules restrict any use of the information to criminally investigate or prosecute any alcohol or drug abuse patient.[facility] CenterIn the event this information is protected by the Federal Confidentiality of Alcohol and Drug Abuse Patient Records regulations: The Federal rules restrict any use of the information to criminally investigate or prosecute any alcohol or drug abuse patient.[facility] CenterIn the event this information is protected by the Federal Confidentiality of Alcohol and Drug Abuse Patient Records regulations: The Federal rules restrict any use of the information to criminally investigate or prosecute any alcohol or drug abuse patient.[facility] CenterIn the event this information is protected by the Federal Confidentiality of Alcohol and Drug Abuse Patient Records regulations: The Federal rules restrict any use of the information to criminally investigate or prosecute any alcohol or drug abuse patient.[facility] CenterIn the event this information is protected by the Federal Confidentiality of Alcohol and Drug Abuse Patient Records regulations: The Federal rules restrict any use of the information to criminally investigate or prosecute any alcohol or drug abuse patient.[facility] CenterIn the event this information is protected by the Federal Confidentiality of Alcohol and Drug Abuse Patient Records regulations: The Federal rules restrict any use of the information to criminally investigate or prosecute any alcohol or drug abuse patient.[facility] CenterIn the event this information is protected by the Federal Confidentiality of Alcohol and Drug Abuse Patient Records regulations: The Federal rules restrict any use of the information to criminally investigate or prosecute any alcohol or drug abuse patient.[facility] CenterIn the event this information is protected by the Federal Confidentiality of Alcohol and Drug Abuse Patient Records regulations: The Federal rules restrict any use of the information to criminally investigate or prosecute any alcohol or drug abuse patient.[facility] CenterIn the event this information is protected by the Federal Confidentiality of Alcohol and Drug Abuse Patient Records regulations: The Federal rules restrict any use of the information to criminally investigate or prosecute any alcohol or drug abuse patient.[facility] CenterIn the event this information is protected by the Federal Confidentiality of Alcohol and Drug Abuse Patient Records regulations: The Federal rules restrict any use of the information to criminally investigate or prosecute any alcohol or drug abuse patient.[facility] CenterIn the event this information is protected by the Federal Confidentiality of Alcohol and Drug Abuse Patient Records regulations: The Federal rules restrict any use of the information to criminally investigate or prosecute any alcohol or drug abuse patient.[facility] CenterIn the event this information is protected by the Federal Confidentiality of Alcohol and Drug Abuse Patient Records regulations: The Federal rules restrict any use of the information to criminally investigate or prosecute any alcohol or drug abuse patient.[facility] CenterIn the event this information is protected by the Federal Confidentiality of Alcohol and Drug Abuse Patient Records regulations: The Federal rules restrict any use of the information to criminally investigate or prosecute any alcohol or drug abuse patient.[facility] CenterIn the event this information is protected by the Federal Confidentiality of Alcohol and Drug Abuse Patient Records regulations: The Federal rules restrict any use of the information to criminally investigate or prosecute any alcohol or drug abuse patient.[facility] CenterIn the event this information is protected by the Federal Confidentiality of Alcohol and Drug Abuse Patient Records regulations: The Federal rules restrict any use of the information to criminally investigate or prosecute any alcohol or drug abuse patient.[facility] CenterIn the event this information is protected by the Federal Confidentiality of Alcohol and Drug Abuse Patient Records regulations: The Federal rules restrict any use of the information to criminally investigate or prosecute any alcohol or drug abuse patient.[facility] CenterIn the event this information is protected by the Federal Confidentiality of Alcohol and Drug Abuse Patient Records regulations: The Federal rules restrict any use of the information to criminally investigate or prosecute any alcohol or drug abuse patient.[facility] CenterIn the event this information is protected by the Federal Confidentiality of Alcohol and Drug Abuse Patient Records regulations: The Federal rules restrict any use of the information to criminally investigate or prosecute any alcohol or drug abuse patient.[facility] CenterIn the event this information is protected by the Federal Confidentiality of Alcohol and Drug Abuse Patient Records regulations: The Federal rules restrict any use of the information to criminally investigate or prosecute any alcohol or drug abuse patient.[facility] CenterIn the event this information is protected by the Federal Confidentiality of Alcohol and Drug Abuse Patient Records regulations: The Federal rules restrict any use of the information to criminally investigate or prosecute any alcohol or drug abuse patient.[facility] CenterIn the event this information is protected by the Federal Confidentiality of Alcohol and Drug Abuse Patient Records regulations: The Federal rules restrict any use of the information to criminally investigate or prosecute any alcohol or drug abuse patient.[facility] CenterIn the event this information is protected by the Federal Confidentiality of Alcohol and Drug Abuse Patient Records regulations: The Federal rules restrict any use of the information to criminally investigate or prosecute any alcohol or drug abuse patient.[facility] CenterIn the event this information is protected by the Federal Confidentiality of Alcohol and Drug Abuse Patient Records regulations: The Federal rules restrict any use of the information to criminally investigate or prosecute any alcohol or drug abuse patient.[facility] CenterIn the event this information is protected by the Federal Confidentiality of Alcohol and Drug Abuse Patient Records regulations: The Federal rules restrict any use of the information to criminally investigate or prosecute any alcohol or drug abuse patient.[facility] CenterIn the event this information is protected by the Federal Confidentiality of Alcohol and Drug Abuse Patient Records regulations: The Federal rules restrict any use of the information to criminally investigate or prosecute any alcohol or drug abuse patient.[facility] CenterIn the event this information is protected by the Federal Confidentiality of Alcohol and Drug Abuse Patient Records regulations: The Federal rules restrict any use of the information to criminally investigate or prosecute any alcohol or drug abuse patient.[facility] CenterIn the event this information is protected by the Federal Confidentiality of Alcohol and Drug Abuse Patient Records regulations: The Federal rules restrict any use of the information to criminally investigate or prosecute any alcohol or drug abuse patient.[facility] CenterIn the event this information is protected by the Federal Confidentiality of Alcohol and Drug Abuse Patient Records regulations: The Federal rules restrict any use of the information to criminally investigate or prosecute any alcohol or drug abuse patient.[facility] CenterIn the event this information is protected by the Federal Confidentiality of Alcohol and Drug Abuse Patient Records regulations: The Federal rules restrict any use of the information to criminally investigate or prosecute any alcohol or drug abuse patient.[facility] CenterIn the event this information is protected by the Federal Confidentiality of Alcohol and Drug Abuse Patient Records regulations: The Federal rules restrict any use of the information to criminally investigate or prosecute any alcohol or drug abuse patient.[facility] CenterIn the event this information is protected by the Federal Confidentiality of Alcohol and Drug Abuse Patient Records regulations: The Federal rules restrict any use of the information to criminally investigate or prosecute any alcohol or drug abuse patient.[facility] CenterIn the event this information is protected by the Federal Confidentiality of Alcohol and Drug Abuse Patient Records regulations: The Federal rules restrict any use of the information to criminally investigate or prosecute any alcohol or drug abuse patient.[facility] CenterIn the event this information is protected by the Federal Confidentiality of Alcohol and Drug Abuse Patient Records regulations: The Federal rules restrict any use of the information to criminally investigate or prosecute any alcohol or drug abuse patient.[facility] CenterIn the event this information is protected by the Federal Confidentiality of Alcohol and Drug Abuse Patient Records regulations: The Federal rules restrict any use of the information to criminally investigate or prosecute any alcohol or drug abuse patient.[facility] CenterIn the event this information is protected by the Federal Confidentiality of Alcohol and Drug Abuse Patient Records regulations: The Federal rules restrict any use of the information to criminally investigate or prosecute any alcohol or drug abuse patient.[facility] CenterIn the event this information is protected by the Federal Confidentiality of Alcohol and Drug Abuse Patient Records regulations: The Federal rules restrict any use of the information to criminally investigate or prosecute any alcohol or drug abuse patient.[facility] CenterIn the event this information is protected by the Federal Confidentiality of Alcohol and Drug Abuse Patient Records regulations: The Federal rules restrict any use of the information to criminally investigate or prosecute any alcohol or drug abuse patient.[facility] CenterIn the event this information is protected by the Federal Confidentiality of Alcohol and Drug Abuse Patient Records regulations: The Federal rules restrict any use of the information to criminally investigate or prosecute any alcohol or drug abuse patient.[facility] CenterIn the event this information is protected by the Federal Confidentiality of Alcohol and Drug Abuse Patient Records regulations: The Federal rules restrict any use of the information to criminally investigate or prosecute any alcohol or drug abuse patient.[facility] CenterIn the event this information is protected by the Federal Confidentiality of Alcohol and Drug Abuse Patient Records regulations: The Federal rules restrict any use of the information to criminally investigate or prosecute any alcohol or drug abuse patient.[facility] CenterIn the event this information is protected by the Federal Confidentiality of Alcohol and Drug Abuse Patient Records regulations: The Federal rules restrict any use of the information to criminally investigate or prosecute any alcohol or drug abuse patient.[facility] CenterIn the event this information is protected by the Federal Confidentiality of Alcohol and Drug Abuse Patient Records regulations: The Federal rules restrict any use of the information to criminally investigate or prosecute any alcohol or drug abuse patient.[facility] CenterIn the event this information is protected by the Federal Confidentiality of Alcohol and Drug Abuse Patient Records regulations: The Federal rules restrict any use of the information to criminally investigate or prosecute any alcohol or drug abuse patient.[facility] CenterIn the event this information is protected by the Federal Confidentiality of Alcohol and Drug Abuse Patient Records regulations: The Federal rules restrict any use of the information to criminally investigate or prosecute any alcohol or drug abuse patient.[facility] CenterIn the event this information is protected by the Federal Confidentiality of Alcohol and Drug Abuse Patient Records regulations: The Federal rules restrict any use of the information to criminally investigate or prosecute any alcohol or drug abuse patient.[facility] CenterIn the event this information is protected by the Federal Confidentiality of Alcohol and Drug Abuse Patient Records regulations: The Federal rules restrict any use of the information to criminally investigate or prosecute any alcohol or drug abuse patient.[facility] CenterIn the event this information is protected by the Federal Confidentiality of Alcohol and Drug Abuse Patient Records regulations: The Federal rules restrict any use of the information to criminally investigate or prosecute any alcohol or drug abuse patient.[facility] CenterIn the event this information is protected by the Federal Confidentiality of Alcohol and Drug Abuse Patient Records regulations: The Federal rules restrict any use of the information to criminally investigate or prosecute any alcohol or drug abuse patient.[facility] Care Teams (unrecognized sec tion and content) Chemical Laboratory Chief Relationship Specialty Start Date End Date Prudencio Pedro MD [address] [place], [place] [id number] PCP - General Family Practice 05/10/19 Chemical Laboratory Chief Relationship Specialty Start Date End Date Prudencio Pedro MD [address] [place] [address] PCP - General Family Practice 05/10/19 Chemical Laboratory Chief Relationship Specialty Start Date End Date Prudencio Pedro MD [address] [place] [address] PCP - General Family Practice 05/10/19 Chemical Laboratory Chief Relationship Specialty Start Date End Date Prudencio Pedro MD [address] [place] [address] PCP - General Family Practice 05/10/19 Chemical Laboratory Chief Relationship Specialty Start Date End Date Prudencio Pedro MD [address] [place] [place] [address] PCP - General Family Practice 05/10/19 Chemical Laboratory Chief Relationship Specialty Start Date End Date Prudencio Pedro MD [address] [facility] [place] [address] PCP - General Family Medicine 05/10/19 Chemical Laboratory Chief Relationship Specialty Start Date End Date Prudencio Pedro MD [address] [facility] [place] [address] PCP - General Family Medicine 05/10/19 Chemical Laboratory Chief Relationship Specialty Start Date End Date Prudencio Pedro MD [address] [place] [place] [address] PCP - General Family Medicine 05/10/19 Chemical Laboratory Chief Relationship Specialty Start Date End Date Prudencio Pedro MD [address] [place] [place] [address] PCP - General Family Medicine 05/10/19 Chemical Laboratory Chief Relationship Specialty Start Date End Date Prudencio Pedro MD [address] [place] [place] [address] PCP - General Family Medicine 05/10/19 Chemical Laboratory Chief Relationship Specialty Start Date End Date Prudencio Pedro MD [address] [place] [place] [address] PCP - General Family Medicine 05/10/19 Chemical Laboratory Chief Relationship Specialty Start Date End Date Prudencio Pedro MD [address] [place] [place] [address] PCP - General Family Medicine 05/10/19 Chemical Laboratory Chief Relationship Specialty Start Date End Date Prudencio Pedro MD [address] [place] [place] [address] PCP - General Family Medicine 05/10/19 Chemical Laboratory Chief Relationship Specialty Start Date End Date Prudencio Pedro MD [address] [facility] [place] [address] PCP - General Family Medicine 05/10/19 Chemical Laboratory Chief Relationship Specialty Start Date End Date Prudencio Pedro MD [address] [place] [place] [address] PCP - General Family Medicine 05/10/19 Chemical Laboratory Chief Relationship Specialty Start Date End Date Prudencio Pedro MD [address] [place] [place] [address] PCP - General Family Medicine 05/10/19 Chemical Laboratory Chief Relationship Specialty Start Date End Date Prudencio Pedro MD [address] [place] [place] [address] PCP - General Family Medicine 05/10/19 Chemical Laboratory Chief Relationship Specialty Start Date End Date Prudencio Pedro MD [address] [place] [place] [address] PCP - General Family Medicine 05/10/19 Chemical Laboratory Chief Relationship Specialty Start Date End Date Prudencio Pedro MD [address] [place] [place] [address] PCP - General Family Medicine 05/10/19 Chemical Laboratory Chief Relationship Specialty Start Date End Date Prudencio Pedro MD [address] [place] [address] PCP - General Family Medicine 05/10/19 Chemical Laboratory Chief Relationship Specialty Start Date End Date Prudencio Pedro MD [address] [place] [place] [address] PCP - General Family Medicine 05/10/19 Chemical Laboratory Chief Relationship Specialty Start Date End Date Prudencio Pedro MD [address] [place] [address] PCP - General Family Medicine 05/10/19 Chemical Laboratory Chief Relationship Specialty Start Date End Date Prudencio Pedro MD [address] [place] [address] PCP - General Family Medicine 05/10/19 Team Status: Active Member Role Status Dates Diamond Bright CARD FILER, CARD FILER-C Family Provider Active Dr. Segundo Pedro MD Primary Care Provider Acti ve Team Status: Inactive Member Role Status Dates Dr. Segundo Pedro MD Primary Care Provider Acti ve Namrata Vazquez CARD FILER, CARD FILER-C Attending Provider, Referring Provider Active Team Status: Active Member Role Status Dates Dr. Segundo Pedro MD Primary Care Provider Acti ve Dr. Epi Mcdonald MD Attending Provider, Referrin g Provider Active Team Status: Inactive Member Role Status Dates Dr. Segundo Pedro MD Primary Care Provider Acti ve Dr. Epi Mcdonald MD Attending Provider, Referrin g Provider Active Chemical Laboratory Chief Relationship Specialty Start Date End Date Prudencio Pedro MD [address] [place] [address] PCP - General Family Medicine 05/10/19 Chemical Laboratory Chief Relationship Specialty Start Date End Date Prudencio Pedro MD [address] [place] [address] PCP - General Family Medicine 05/10/19 Chemical Laboratory Chief Relationship Specialty Start Date End Date Prudencio Pedro MD [address] [place] [address] PCP - General Family Medicine 05/10/19 Chemical Laboratory Chief Relationship Specialty Start Date End Date Prudencio Pedro MD [address] [place] [address] PCP - General Family Medicine 05/10/19 Chemical Laboratory Chief Relationship Specialty Start Date End Date Prudencio Pedro MD [address] [place] [place] [address] PCP - General Family Medicine 05/10/19 Chemical Laboratory Chief Relationship Specialty Start Date End Date Prudencio Pedro MD [address] [facility] [place] [address] PCP - General Family Medicine 05/10/19 Chemical Laboratory Chief Relationship Specialty Start Date End Date Prudencio Pedro MD [address] [facility] [place] [address] PCP - General Family Medicine 05/10/19 Chemical Laboratory Chief Relationship Specialty Start Date End Date Prudencio Pedro MD [address] [place] [place] [address] PCP - General Family Medicine 05/10/19 Chemical Laboratory Chief Relationship Specialty Start Date End Date Prudencio Pedro MD [address] [facility] [place] [address] PCP - General Family Medicine 05/10/19 Chemical Laboratory Chief Relationship Specialty Start Date End Date Prudencio Pedro MD [address] [place] [address] PCP - General Family Medicine 05/10/19 Chemical Laboratory Chief Relationship Specialty Start Date End Date Prudencio Pedro MD [address] [place] [place] [address] PCP - General Family Medicine 05/10/19 Chemical Laboratory Chief Relationship Specialty Start Date End Date Prudnecio Pedro MD [address] [facility] [place] [address] PCP - General Family Medicine 05/10/19 Chemical Laboratory Chief Relationship Specialty Start Date End Date Prudencio Pedro MD [address] [place] [address] PCP - General Family Medicine 05/10/19 Chemical Laboratory Chief Relationship Specialty Start Date End Date Prudencio Pedro MD [address] [place] [place] [address] PCP - General Family Medicine 05/10/19 Chemical Laboratory Chief Relationship Specialty Start Date End Date Prudencio Pedro MD [address] [place] [place] [address] PCP - General Family Medicine 05/10/19 Chemical Laboratory Chief Relationship Specialty Start Date End Date Prudencio Pedro MD [address] [place] [place] [address] PCP - General Family Medicine 05/10/19 Chemical Laboratory Chief Relationship Specialty Start Date End Date Prudencio Pedro MD [address] [place] [place] [address] PCP - General Family Medicine 05/10/19 Chemical Laboratory Chief Relationship Specialty Start Date End Date Prudencio Pedro MD [address] [place] [address] PCP - General Family Medicine 05/10/19 Chemical Laboratory Chief Relationship Specialty Start Date End Date Prudencio Pedro MD [address] [place] [place] [address] PCP - General Family Medicine 05/10/19 Chemical Laboratory Chief Relationship Specialty Start Date End Date Prudencio Pedro MD [address] [place] [address] PCP - General Family Medicine 05/10/19 Chemical Laboratory Chief Relationship Specialty Start Date End Date Prudencio Pedro MD [address] [place] [address] PCP - General Family Medicine 05/10/19 Chemical Laboratory Chief Relationship Specialty Start Date End Date Prudencio Pedro MD [address] [place] [address] PCP - General Family Medicine 05/10/19 Chemical Laboratory Chief Relationship Specialty Start Date End Date Prudencio Pedro MD [address] [place] [address] PCP - General Family Medicine 05/10/19 Chemical Laboratory Chief Relationship Specialty Start Date End Date Prudencio Pedro MD [address] [place] [address] PCP - General Family Medicine 05/10/19 Chemical Laboratory Chief Relationship Specialty Start Date End Date Prudencio Pedro MD [address] [place] [address] PCP - General Family Medicine 05/10/19 Chemical Laboratory Chief Relationship Specialty Start Date End Date Prudencio Pedro MD [address] [place] [address] PCP - General Family Medicine 05/10/19 Chemical Laboratory Chief Relationship Specialty Start Date End Date Prudencio Pedro MD [address] [place] [address] PCP - General Family Medicine 05/10/19 Team Status: Inactive Member Role Status Dates Dr. Epi Mcdonald MD Attending Provider, [facility] Provider Active Dr. Segundo Pedro MD Primary Care Provider Acti ve Team Status: Inactive Member Role Status Dates Dr. Segundo WILSON MD Referring Provider Acti ve Namrata Vazquez CARD FILER, CARD FILER-C Attending Provider Active Dr. Segundo Pedro MD Primary Care Provider Acti ve Team Status: Inactive Member Role Status Dates Namrata Vazquez CARD FILER, CARD FILER-C Attending Provider, Referring Provider Active Dr. Segundo Pedro MD Primary Care Provider Acti ve Chemical Laboratory Chief Relationship Specialty Start Date End Date Prudencio Pedro MD [address] [facility] [place] [address] PCP - General Family Medicine 05/10/19 Chemical Laboratory Chief Relationship Specialty Start Date End Date Prudencio Pedro MD [address] [place] [place] [address] PCP - General Family Medicine 05/10/19 Chemical Laboratory Chief Relationship Specialty Start Date End Date Prudencio Pedro MD [address] [place] [address] PCP - General Family Medicine 05/10/19 Chemical Laboratory Chief Relationship Specialty Start Date End Date Prudencio Pedro MD [address] [place] [place] [address] PCP - General Family Medicine 05/10/19 Chemical Laboratory Chief Relationship Specialty Start Date End Date Prudencio Pedro MD [address] [place] [place] [address] PCP - General Family Medicine 05/10/19 Chemical Laboratory Chief Relationship Specialty Start Date End Date Prudencio Pedro MD [address] [place] [address] PCP - General Family Medicine 05/10/19 Chemical Laboratory Chief Relationship Specialty Start Date End Date Prudencio Pedro MD [address] [place] [place] [address] PCP - General Family Medicine 05/10/19 Chemical Laboratory Chief Relationship Specialty Start Date End Date Prudencio ePdro MD [address] [place] [place] [address] PCP - General Family Medicine 05/10/19 Chemical Laboratory Chief Relationship Specialty Start Date End Date Prudencio Pedro MD [address] [place] [place] [address] PCP - General Family Medicine 05/10/19 Chemical Laboratory Chief Relationship Specialty Start Date End Date Prudencio Pedro MD [address] [place] [address] PCP - General Family Medicine 05/10/19 Chemical Laboratory Chief Relationship Specialty Start Date End Date Prudencio Pedro MD [address] [place] [place] [address] PCP - General Family Medicine 05/10/19 Chemical Laboratory Chief Relationship Specialty Start Date End Date Prudencio Pedro MD [address] [place] [address] PCP - General Family Medicine 05/10/19 Chemical Laboratory Chief Relationship Specialty Start Date End Date Prudencio Pedro MD [address] [place] [address] PCP - General Family Medicine 05/10/19 03/02/24 Chemical Laboratory Chief Relationship Specialty Start Date End Date Prudencio Pedro MD [address] [facility] [id number] PCP - General Family Medicine 05/10/19 03/02/24 Chemical Laboratory Chief Relationship Specialty Start Date End Date Prudencio Pedro MD [address] [facility] [place] [address] PCP - General Family Medicine 05/10/19 03/02/24 Chemical Laboratory Chief Relationship Specialty Start Date End Date Prudencio Pedro MD [address] [facility] [place] [address] PCP - General Family Medicine 05/10/19 03/02/24 Chemical Laboratory Chief Relationship Specialty Start Date End Date Prudencio Pedro MD [address] [facility] [place] [address] PCP - General Family Medicine 05/10/19 03/02/24 Chemical Laboratory Chief Relationship Specialty Start Date End Date Prudencio Pedro MD [address] [facility] [place] [address] PCP - General Family Medicine 05/10/19 03/02/24 Chemical Laboratory Chief Relationship Specialty Start Date End Date Prudencio Pedro MD [address] [facility] [place] [address] PCP - General Family Medicine 05/10/19 03/02/24 Chemical Laboratory Chief Relationship Specialty Start Date End Date Fina Iraheta MD [address] [facility] [address] [place] [phone] PCP - General Internal Medicine 06/03/24 Chemical Laboratory Chief Relationship Specialty Start Date End Date Fina Iraheta MD [address] [facility] [address] [place] [address] PCP - General Internal Medicine 06/03/24 Chemical Laboratory Chief Relationship Specialty Start Date End Date Fina Iraheta MD [address] [place] [address] PCP - General Internal Medicine 06/03/24 Chemical Laboratory Chief Relationship Specialty Start Date End Date Fina Iraheta MD [address] [place] [address] PCP - General Internal Medicine 06/03/24 Chemical Laboratory Chief Relationship Specialty Start Date End Date Fina Iraheta MD [address] [place] [address] PCP - General Internal Medicine 06/03/24 Chemical Laboratory Chief Relationship Specialty Start Date End Date Fina Iraheta MD [address] [place] [address] PCP - General Internal Medicine 06/03/24 Chemical Laboratory Chief Relationship Specialty Start Date End Date Fina Iraheta MD [address] [place] [address] PCP - General Internal Medicine 06/03/24 Chemical Laboratory Chief Relationship Specialty Start Date End Date Fina Iraheta MD [address] [place] [address] PCP - General Internal Medicine 06/03/24 Chemical Laboratory Chief Relationship Specialty Start Date End Date Fina Iraheta MD [address] [place] [phone] PCP - General Internal Medicine 06/03/24 Chemical Laboratory Chief Relationship Specialty Start Date End Date Fina Iraheta MD [address] [place] [address] PCP - General Internal Medicine 06/03/24 Chemical Laboratory Chief Relationship Specialty Start Date End Date Fina Iraheta MD [address] [place] [address] PCP - General Internal Medicine 06/03/24 Team Status: Active Member Role Status Dates Dr. Fina Iraheta MD Primary Care Provider Active Team Status: Inactive Member Role Status Dates Dr. Hung Cai MD Attending Provider Active Sta rt: August 01, 2024 End: August 01, 2024 Dr. Hung Cai MD Referring Provider Active Sta rt: August 01, 2024 End: August 01, 2024 Dr. Hung Cai MD Emergency Provider Active Sta rt: August 01, 2024 End: August 01, 2024 Dr. Fina Iraheta MD Primary Care Provider Active Start: August 01, 2024 End: August 01, 2024 Team Status: Inactive Member Role Status Dates Dr. Segundo Pedro MD Referring Provider Active Start: August 13, 2024 End: August 13, 2024 Dr. Fina Iraheta MD Primary Care Provider Active Start: August 13, 2024 End: August 13, 2024 Dr. Fina Iraheta MD Attending Provider Active Start: August 13, 2024 End: August 13, 2024 Team Status: Inactive Member Role Status Dates Dr. Fina Iraheta MD Primary Care Provider Active Start: August 13, 2024 End: August 13, 2024 Dr. Fina Iraheta MD Attending Provider Active Start: August 13, 2024 End: August 13, 2024 Dr. Fina Iraheta MD Referring Provider Active Start: August 13, 2024 End: August 13, 2024 Team Status: Inactive Member Role Status Dates Dr. Fina Iraheta MD Primary Care Provider Active Start: September 11, 2024 End: September 11, 2024 Dr. Fina Iraheta MD Referring Provider Active Start: September 11, 2024 End: September 11, 2024 Namrata Vazquez CARD FILER, CARD FILER-C Attending Provider Active Start: September 11, 2024 End: September 11, 2024 Team Status: Inactive Member Role Status Dates Dr. Fina Iraheta MD Primary Care Provider Active Start: September 11, 2024 End: September 11, 2024 Namrata Vazquez CARD FILER, CARD FILER-C Attending Provider Active Start: September 11, 2024 End: September 11, 2024 Namrata Vazquez CARD FILER, CARD FILER-C Referring Provider Active Start: September 11, 2024 End: September 11, 2024 Team Status: Active Member Role Status Dates Dr. Fina Iraheta MD Primary Care Provider Active Start: September 12, 2024 Dr. Fina Iraheta MD Attending Provider Active Start: September 12, 2024 Dr. Fina Irhaeta MD Referring Provider Active Start: September 12, 2024 Team Status: Inactive Member Role Status Dates Dr. Fina Iraheta MD Primary Care Provider Active Start: September 14, 2024 End: September 14, 2024 Dr. Fina Iraheta MD Attending Provider Active Start: September 14, 2024 End: September 14, 2024 Dr. Fina Iraheta MD Referring Provider Active Start: September 14, 2024 End: September 14, 2024 Team Status: Active Member Role Status Dates Dr. Fina Iraheta MD Primary Care Provider Active Start: September 14, 2024 Dr. Fina Iraheta MD Attending Provider Active Start: September 14, 2024 Dr. Fina Iraheta MD Referring Provider Active Start: September 14, 2024 Team Status: Inactive Member Role Status Dates Dr. Fina Iraheta MD Primary Care Provider Active Start: September 12, 2024 End: September 12, 2024 Dr. Fina Iraheta MD Attending Provider Active Start: September 12, 2024 End: September 12, 2024 Dr. Fina Iraheta MD Referring Provider Active Start: September 12, 2024 End: September 12, 2024 Team Status: Active Member Role Status Dates Dr. Fina Iraheta MD Primary Care Provider Active Start: September 25, 2024 Dr. Fina Iraheta MD Attending Provider Active Start: September 25, 2024 Dr. Fina Iraheta MD Referring Provider Active Start: September 25, 2024 Team Status: Active Member Role Status Dates Dr. Fina Iraheta MD Primary Care Provider Active Start: September 25, 2024 Dr. Epi Mcdonald MD Attending Provider Active Start: September 25, 2024 Dr. Epi Mcdonald MD Referring Provider Active Start: September 25, 2024 Team Status: Inactive Member Role Status Dates Dr. Fina Iraheta MD Primary Care Provider Active Start: September 25, 2024 End: September 25, 2024 Dr. Joselito Nichols DO Emergency Provider Active Start : September 25, 2024 End: September 25, 2024 Team Status: Inactive Member Role Status Dates Dr. Fina Iraheta MD Primary Care Provider Active Start: September 25, 2024 End: September 25, 2024 Dr. Fina Iraheta MD Attending Provider Active Start: September 25, 2024 End: September 25, 2024 Dr. Fina Iraheta MD Referring Provider Active Start: September 25, 2024 End: September 25, 2024 Team Status: Active Member Role Status Dates Dr. Fina Iraheta MD Primary Care Provider Active Start: October 04, 2024 Dr. Lucas Marrufo MD Attending Provider Active Start: October 04, 2024 Dr. Lucas Marrufo MD Referring Provider Active Start: October 04, 2024 Team Status: Inactive Member Role Status Dates Dr. Fina Iraheta MD Primary Care Provider Active Start: October 04, 2024 End: October 04, 2024 Dr. Fina Iraheta MD Referring Provider Active Start: October 04, 2024 End: October 04, 2024 KERRI Saravia Attending Provider Active St art: October 04, 2024 End: October 04, 2024 Team Status: Inactive Member Role Status Dates Dr. Fina Iraheta MD Primary Care Provider Active Start: September 25, 2024 End: September 25, 2024 Dr. Epi Mcdonald MD Attending Provider Active Start: September 25, 2024 End: September 25, 2024 Dr. Epi Mcdonald MD Referring Provider Active Start: September 25, 2024 End: September 25, 2024 Team Status: Inactive Member Role Status Dates Dr. Fina Iraheta MD Primary Care Provider Active Start: September 25, 2024 End: September 25, 2024 Dr. Joselito Nichols DO Attending Provider Active Start : September 25, 2024 End: September 25, 2024 Dr. Joselito Nichols DO Emergency Provider Active Start : September 25, 2024 End: September 25, 2024 Team Status: Inactive Member Role Status Dates Dr. Fina Iraheta MD Primary Care Provider Active Start: October 04, 2024 End: October 04, 2024 Dr. Lucas Marrufo MD Attending Provider Active Start: October 04, 2024 End: October 04, 2024 Dr. Lucas Marrufo MD Referring Provider Active Start: October 04, 2024 End: October 04, 2024 Chemical Laboratory Chief Relationship Specialty Start Date End Date Fina Iraheta MD [address] [facility] [address] [place] [phone] PCP - General Internal Medicine 06/03/24 Team Status: Inactive Member Role Status Dates Dr. Fina Iraheta MD Primary Care Provider Active Start: November 05, 2024 End: November 05, 2024 Dr. Fina Iraheta MD Attending Provider Active Start: November 05, 2024 End: November 05, 2024 Dr. Fina Iraheta MD Referring Provider Active Start: November 05, 2024 End: November 05, 2024 Team Status: Inactive Member Role Status Dates Dr. Fina Iraheta MD Primary Care Provider Active Start: November 26, 2024 End: November 26, 2024 Dr. Saturnino Mix DO Emergency Provider Active Start: November 26, 2024 End: November 26, 2024 Team Status: Inactive Member Role Status Dates Dr. Fina Iraheta MD Primary Care Provider Active Start: November 28, 2024 End: November 28, 2024 Dr. Fina Iraheta MD Referring Provider Active Start: November 28, 2024 End: November 28, 2024 Lawrence MANNING, PA Attending Provider Active St art: November 28, 2024 End: November 28, 2024 Chemical Laboratory Chief Relationship Specialty Start Date End Date Fina Iraheta MD [address] [place] [phone] PCP - General Internal Medicine 06/03/24 Chemical Laboratory Chief Relationship Specialty Start Date End Date Fina Iraheta MD [address] [place] [address] PCP - General Internal Medicine 06/03/24 Chemical Laboratory Chief Relationship Specialty Start Date End Date Fina Iraheta MD [address] [place] [address] PCP - General Internal Medicine 06/03/24 Team Status: Active Member Role/Relationship Status Dates Dr. Fina Iraheta MD Primary Care Provider Active Team Status: Inactive Member Role/Relationship Status Dates Dr. Fina Iraheta MD Primary Care Provider Active Start: November 05, 2024 End: November 05, 2024 Dr. Fina Iraheta MD Attending Provider Active Start: November 05, 2024 End: November 05, 2024 Dr. Fina Iraheta MD Referring Provider Active Start: November 05, 2024 End: November 05, 2024 Team Status: Inactive Member Role/Relationship Status Dates Dr. Fina Iraheta MD Primary Care Provider Active Start: November 26, 2024 End: November 26, 2024 Dr. Saturnino Mix DO Attending Provider Active Start: November 26, 2024 End: November 26, 2024 Dr. Saturnino Mix DO Emergency Provider Active Start: November 26, 2024 End: November 26, 2024 Team Status: Inactive Member Role/Relationship Status Dates Dr. Fina Iraheta MD Primary Care Provider Active Start: November 28, 2024 End: November 28, 2024 Dr. Fina Iraheta MD Referring Provider Active Start: November 28, 2024 End: November 28, 2024 Lawrence MANNING PA Attending Provider Active St art: November 28, 2024 End: November 28, 2024 Team Status: Inactive Member Role/Relationship Status Dates Dr. Fina Iraheta MD Primary Care Provider Active Start: February 07, 2025 End: February 07, 2025 Dr. Bella Luciano DO Emergency Provider Active Start: February 07, 2025 End: February 07, 2025 Team Status: Inactive Member Role/Relationship Status Dates Dr. Fina Iraheta MD Primary Care Provider Active Start: February 07, 2025 End: February 07, 2025 Dr. Fina Iraheta MD Referring Provider Active Start: February 07, 2025 End: February 07, 2025 Lalo MANNING PA Attending Provider Active Sta rt: February 07, 2025 End: February 07, 2025 Team Status: Inactive Member Role/Relationship Status Dates Dr. Fina Iraheta MD Primary Care Provider Active Start: February 15, 2025 End: February 15, 2025 Dr. Fina Iraheta MD Attending Provider Active Start: February 15, 2025 End: February 15, 2025 Dr. Fina Iraheta MD Referring Provider Active Start: February 15, 2025 End: February 15, 2025 Team Status: Inactive Member Role/Relationship Status Dates Dr. Fina Iraheta MD Primary Care Provider Active Start: November 26, 2024 End: November 26, 2024 Dr. Saturnino Mix DO Attending Provider Active Start: November 26, 2024 End: November 26, 2024 Dr. Saturnino Mix DO Emergency Provider Active Start: November 26, 2024 End: November 26, 2024 Team Status: Inactive Member Role/Relationship Status Dates Dr. Fina Iraheta MD Primary Care Provider Active Start: November 28, 2024 End: November 28, 2024 Dr. Fina Iraheta MD Referring Provider Active Start: November 28, 2024 End: November 28, 2024 KERRI Saravia Attending Provider Active St art: November 28, 2024 End: November 28, 2024 Team Status: Inactive Member Role/Relationship Status Dates Dr. Fina Iraheta MD Primary Care Provider Active Start: February 07, 2025 End: February 07, 2025 Dr. Bella Luciano DO Attending Provider Active Start: February 07, 2025 End: February 07, 2025 Dr. Bella Luciano DO Emergency Provider Active Start: February 07, 2025 End: February 07, 2025 Team Status: Inactive Member Role/Relationship Status Dates Dr. Fina Iraheta MD Primary Care Provider Active Start: February 07, 2025 End: February 07, 2025 Dr. Fina Iraheta MD Referring Provider Active Start: February 07, 2025 End: February 07, 2025 KERRI Gomez Attending Provider Active Sta rt: February 07, 2025 End: February 07, 2025 Team Status: Inactive Member Role/Relationship Status Dates Dr. Fina Iraheta MD Primary Care Provider Active Start: February 15, 2025 End: February 15, 2025 Dr. Fina Iraheta MD Attending Provider Active Start: February 15, 2025 End: February 15, 2025 Dr. Fina Iraheta MD Referring Provider Active Start: February 15, 2025 End: February 15, 2025 Team Status: Inactive Member Role/Relationship Status Dates Dr. Fina Iraheta MD Primary Care Provider Active Start: March 08, 2025 End: March 08, 2025 Dr. Saturnino Mix DO Emergency Provider Active Start: March 08, 2025 End: March 08, 2025 Chemical Laboratory Chief Relationship Specialty Start Date End Date Fina Iraheta MD [facility] [address] [place] [phone] PCP - General Internal Medicine 06/03/24 Team Status: Inactive Member Role/Relationship Status Dates Dr. Fina Iraheta MD Primary Care Provider Active Start: March 11, 2025 End: March 11, 2025 Dr. Fina Iraheta MD Referring Provider Active Start: March 11, 2025 End: March 11, 2025 Gem Graves NP-C Attending Provider Active Start: March 11, 2025 End: March 11, 2025 Team Status: Inactive Member Role/Relationship Status Dates Dr. Fina Iraheta MD Primary Care Provider Active Start: March 08, 2025 End: March 08, 2025 Dr. Saturnino Mix DO Attending Provider Active Start: March 08, 2025 End: March 08, 2025 Dr. Saturnino Mix DO Emergency Provider Active Start: March 08, 2025 End: March 08, 2025 Team Status: Inactive Member Role/Relationship Status Dates Dr. Fina Iraheta MD Primary Care Provider Active Start: March 15, 2025 End: March 15, 2025 Ed Physician Provider Emergency Provider Active Start: March 15, 2025 End: March 15, 2025 Chemical Laboratory Chief Relationship Specialty Start Date End Date Fina Iraheta MD [address] [facility] [address] [place] [phone] PCP - General Internal Medicine 06/03/24 Team Status: Inactive Member Role/Relationship Status Dates Dr. Fina Iraheta MD Primary Care Provider Active Start: March 15, 2025 End: March 15, 2025 Dr. Herman Faust MD Emergency Provider Active S tart: March 15, 2025 End: March 15, 2025 Team Status: Active Member Role/Relationship Status Dates Dr. Fina Iraheta MD Primary care physician Activ e Team Status: Inactive Member Role/Relationship Status Dates Dr. Fina Iraheta MD Primary care physician Activ e Start: February 07, 2025 End: February 07, 2025 Dr. Bella Luciano , Attending physician Active Start: February 07, 2025 End: February 07, 2025 Dr. Bella Luciano , DO Emergency Departm ent Physician Active Start: February 07, 2025 End: February 07, 2025 Team Status: Inactive Member Role/Relationship Status Dates Dr. Fina Iraheta MD Primary care physician Activ e Start: February 07, 2025 End: February 07, 2025 Dr. Fina Iraheta MD Referring Provider Active Start: February 07, 2025 End: February 07, 2025 Lalo MANNING PA Attending physician Active St art: February 07, 2025 End: February 07, 2025 Team Status: Inactive Member Role/Relationship Status Dates Dr. Fina Iraheta MD Primary care physician Activ e Start: February 15, 2025 End: February 15, 2025 Dr. Fina Iraheta MD Attending physician

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
[2025-06-29 14:58] VITALS: BP 118/86; PULSE 72; RESP 11; O2SAT 97
[2025-06-29 16:14] VITALS: BP 119/88; PULSE 72; RESP 11; TEMP 36.2; O2SAT 97
== END 2025-06-29 16:15 | disposition left against medical advice (07) ==
PROVIDERS: Emergency Provider Student in an Organized Health Care Education/Training Program; PCP Internal Medicine; Visit Provider Student in an Organized Health Care Education/Training Program
DX: R20.2 Paresthesia of skin (principal); J44.9 Chronic obstructive pulmonary disease, unspecified; Z21 Asymptomatic human immunodeficiency virus [HIV] infection status; H53.8 Other visual disturbances; M81.0 Age-related osteoporosis without current pathological fracture; F17.210 Nicotine dependence, cigarettes, uncomplicated; Z53.29 Procedure and treatment not carried out because of patient's decision for other reasons; Z86.79 Personal history of other diseases of the circulatory system; Z79.899 Other long term (current) drug therapy
CPT/HCPCS: 70450; 99282

== ENCOUNTER 2025-06-30 14:39 | Emergency (ER) | payer MEDICAID, SELFPAY ==
[2025-06-30 14:40] VITALS: BP 101/81; PULSE 80; RESP 16; TEMP 35.9; O2SAT 100; BMI 22.2
--- NOTE | 2025-06-30 14:55 | CT_ITS ---
PROCEDURE: CTA HEAD AND NECK W/ CONTRAST 06/30/2025 REASON FOR EXAM: HX BRAIN ANEURSYM, VISION CHANGES Y TECHNIQUE: Procedure Code: CTCTA.HDNCK Modality: CT Procedure: CTA HEAD AND NECK W/ CONTRAST Multiplanar Sagittal and Coronal images were obtained. 3D post processing was performed CONTRAST: Isovue 370 VOLUME: 99 mL One or more dose reduction techniques were used (e.g., Automated exposure control, adjustment of the mA and/or kV according to patient size, use of iterative reconstruction technique). RADIATION DOSE SUMMARY: CTDlvol: 37 mGy DLP: 953 mGycm COMPARISON: September 25, 2024 FINDINGS: Aortic Arch: Normal size and branching pattern. Mild atherosclerotic plaque. Brachiocephalic and Subclavians: Mild atherosclerotic plaque without significant stenosis. RIGHT Carotid: Right CCA: Unremarkable. Right ICA: Normal appearance in the neck. The immediate supraclinoid portion shows an aneurysm measuring 4.5 x 3.0 mm. Maximum stenosis (NASCET): 0 % Right ECA: Unremarkable. LEFT Carotid: Left CCA: Unremarkable. Left ICA: Beyond the carotid bulb the caliber of the internal carotid artery is small throughout its length extending into the skull base, cavernous sinus and supraclinoid region. No significant atherosclerotic disease. Given the volume loss involving the left cerebral hemisphere this is likely chronic rather than vaso spasm. Maximum stenosis (NASCET): 0 % Left ECA: Unremarkable. Vertebrals: Codominant. Arise from the subclavians. Both vertebrals form the basilar. RIGHT Vertebral: Unremarkable. LEFT Vertebral: Unremarkable. Anatomy: Fidelity of [place] anatomy is normal. Widely patent anterior communicating artery. Aneurysm or avm: Right supraclinoid internal carotid artery as above. Anterior cerebral arteries: Unremarkable. Middle cerebral arteries: No large vessel occlusion. Slightly smaller caliber compared to the right MCA. Basilar artery: Unremarkable. Posterior cerebral arteries: Unremarkable. Other major branches of the posterior circulation: Unremarkable. Major venous structures: Unremarkable. Other findings: Neck: No lymphadenopathy. Lungs: Lung apices are clear. Bones: Bones are unremarkable. CT/CTA Head AND Neck W/ Contrast IMPRESSION: 1. Patent but small caliber left internal carotid artery. No significant athe rosclerotic disease. Widely patent anterior communicating artery. This is likely not an acute process given that there is asymmetric volume loss involving the left cerebral hemisphere that was present on the recent exam and prior exams. 2. 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 3. No atherosclerotic stenosis. Reading Location: [id number]
--- OUTSIDE RECORDS SUMMARY | 2025-06-30 15:09 | XMS RPT_ITS | CCD ---
Author Organization [facility] Care Team Providers Care Refractory Tile Helper Name Role Phone Prudencio Pedro MD Primary Care Provider Dr. Segundo Pedro Primary Care Provider Taylor [employer], [employer] [place] Attending Provider Taylor [employer], [employer] [place] Referring Provider Prudencio Pedro MD Primary Care Provider Dr. Segundo Newell Referring Provider Taylor [place], [employer] [place] Attending Provider Dr. Segundo Pedro Primary Care Provider Prudencio Pedro MD Primary Care Provider Prudencio Pedro MD Primary Care Provider Unavailable Primary Care Provider Fina Moser MD Primary Care Provider Dr. Hung Cai MD Attending Provider Dr. Hung Cai MD Referring Provider Dr. Hung Cai MD Emergency Provider Dr. Fina Iraheta MD Primary Care Provider Dr. Segundo Pedro MD Referring Provider Dr. Fina Iraheta MD Attending Provider Dr. Fina Iraheta MD Referring Provider Taylor [employer], [place] Attending Provider Taylor [employer], [place] Referring Provider Tamara CHAUDHRY, Dr. Chowdary Attending Provider Tamara CHAUDHRY, Dr. Chowdary Referring Provider Dr. Joselito Nichols DO Emergency Provider Niru CHAUDHRY, Dr. Lucas Serna Attending Provider Niru CHAUDHRY, Dr. Lucas Serna Referring Provider Lawrence Nieves Attending Provider Dr. Joselito Nichols DO Attending Provider Taylor [employer], [place] Referring Provider Dr. Saturnino Mix DO [...] Myrtle CHAUDHRY, Dr. Newton Attending Provider Ely [employer]-CGem Attending Provider Provider, Ed Physician Emergency Provider [...] Dr. Fina Iraheta MD Attending Physician [phone] Dr. Saturnino Mix DO Attending Physician Dr. Saturnino Mix DO Emergency Department Physi juan f Ungerer [employer], Gem Attending Physician Provider, Ed Physician Attending Physician Unava ilable Provider, Ed Physician Emergency Department Phys ician Unavailable Govind CHAUDHRY, Dr. Sutton Attending Physician [phone] Dr. Herman Faust MD Emergency Department Physici an Ungerer [employer], Gem Referring Provider [phone] Isaiah CHAUDHRY, Dr. Henning Attending Physician Dr. Epi Mcdonald MD Attending Physician Dr. Epi Mcdonald MD Referring Provider Oleghe, [...] Attending Unavailable Oleghe, Efewongbe Primary Care Unavailable Aci, Hung Attending Unavailable Cai, Hung Referring Unavailable Oleghe, Efewongbe Primary Care Unavailable Saturnino Mix Attending Unavailable Oleghe, Efewongbe Primary Care Unavailable Oleghe, Efewongbe Primary Care Unavailable Taylor [employer], [place] Attending Unavailable Taylor [employer], [place] Referring Unavailable Oleghe, Efewongbe Referring Unavailable [...] Unavailable Oleghe, Efewongbe Primary Care Unavailable Taylor [employer] [place] Attending Unavailable Taylor [employer], [place]rata Referring Unavailable Oleghe, Efewongbe Referring Unavailable Oleghe, Efewongbe Attending Unavailable Oleghe, Efewongbe Primary Care Unavailable Allergies Allergy Classification Reported Allergen(s) Allergy Type Date of Onset Reaction(s) Facility montelukast (2 sources) montelukast Drug Allergy 2 Other: See Comments [facility] Work Phone: (20 sources) House Dust Mite; Translations: [HOUSE DUST MITE] Propensity to adverse reactions to drug 1 Other: See Comments [facility] (20 sources) house dust allergenic extract Drug Allergy [address] [facility] (20 sources) montelukast; Translations: [MONTELUKAST] Drug Allergy 2 Other: See Comments [facility] Work Phone: (1 source) house dust allergenic extract Drug Allergy 5 [facility] Repository (1 source) montelukast Drug Allergy [address] [facility] Repository Medications Current Medications Medication Drug Class(es) [...] a day. 2 Each 2 02/06/2024 Active [id number] 200 actuat albuterol 0.09 mg/actuat metered dose [...] 1 day. [facility] day for 10 days. [...] mouth three times a day with meals. 71282 mL 1 04/18/2024 07/31/2024 Discontinued Start: 04-18-2024 take 237 mL by mouth three times daily at mealtime Food Supplement, Lactose-Free (ENSURE HIGH PROTEIN) liqd Take 237 mL by mouth three times a day with meals. 27252 mL 1 04/18/2024 Active Food Supplement, Lactose-Free (PROMOTE, OSMOLITE, TWO ARNULFO, ENSURE PLUS, ENLIVE) liqd (20 sources) Start: 02-28-2024 take 237 mL by mouth twice daily Food Supplement, Lactose-Free (PROMOTE, OSMOLITE, TWO ARNULFO, ENSURE PLUS, ENLIVE) liqd Take 237 mL by mouth two times a day. Preferred flavor: Chocolate 18038 mL 2 02/28/2024 Active Start: 02-28-2024 End: 05-28-2024 take 237 mL by mouth twice daily Food Supplement, Lactose-Free (PROMOTE, OSMOLITE, TWO ARNULFO, ENSURE PLUS, ENLIVE) liqd Take 237 mL by mouth two times a day. Preferred flavor: Chocolate 50989 mL 2 02/28/2024 05/28/2024 Active 12 hr [...] 2.5 ug by inhalation once daily Tiotropium [place] (Tiotropium [place] 2.5 Mcg/Actuation Mist For Inhalation) 2.5 mcg/actuation [...] oral solution (20 sources) alpha-Adrenergic Agonist, Uncompetitive E-alhwdt-O-aspartate Receptor Antagonist, Sigma-1 Agonist Start: 06-03-2024 End: 12-13-2024 take 5 mL by mouth four times daily as needed Iexqypxscoiukuu-Wgcftbnpf-UR (BROMFED DM) 2-30-10 mg/5 mL syrup Indications: [...] on above: Take 1 capsule by [facility] one time a week. Take 2,000 Units by mouth once daily. Take 1 tablet by [facility] once daily. docusate sodium 100 mg oral [...] Comment on above: Take 1 tablet by [facility] once daily. Gauze Bandage bndg (20 sources) [...] Comment on above: Take 1 tablet by [facility] every 12 hours. Inhalational Spacing Device (3 [...] Cell Capsule) 20 billion cell capsule Discontinued [id number] NMA PO DAILY August 01, 2024 1:00am September 11, 2024 12:46pm Start: 08-10-2022 End: 04-13-2023 take 1 capsule by mouth once daily Lactobacillus acidophilus (FLORAJEN ACIDOPHILUS) 20 billion cell cap Indications: Vaginal discharge , Bacterial vaginosis Take 1 capsule by mouth once daily. 30 capsule 0 09/06/2022 04/13/2023 Discontinued Comment on above: Take 1 capsule by [facility] once daily. lansoprazole 15 mg delayed release [...] on above: Take 1 capsule by [facility] daily before breakfast. 1/2 hr before meal. [...] 12 Lead EKGon 05-27-2025 12 Lead EKG [facility] Cardiovascular Services [address] [place] [address] 12 Lead EKG 05/27/25 1001 MR#: [id number] Acct: [id number] Name: TRACY VAZQUEZ Rep #: [id number] : 1970 55 From: Rubina Rodriguez MD Attending Dr: Dr. Juvencio Colon MD [place] [facility] [place]: Uziel Kendrick MD Date: 05/27/25 [...] was found Confirmed by Rubina Rodriguez ([id number]), editorial clerk DULCE LOPEZ ([id number]) on 05/27/2025 1:11:11 PM Referred By: Juvencio Colon Confirmed By: Rubina Rodriguez 05/27/25 1311 Date Rubina Rodriguez MD CC: Dr. Uziel Kendrick MD; Dr. Juvencio Colon MD; Dr. Fina Iraheta MD Signed Normal [facility] Discharge Instructionon 05-18 Discharge Instruction [facility] Medical Records Department [address] [place] [address] Instructions for Home/Discharge Instructions 05/27/25 1532 MR#: [id number] Acct: [id number] Name: TRACY VAZQUEZ Rep #: [id number] : 1970 55 From: Juvencio Colon MD PCP: Dr. Fina Iraheta MD [place] [facility] [place] Inst[place] Procedure Gallbladder Diet Discharge Diet: [...] to schedule 2 week follow up appointment. [phone] Test Results: Test results from this visit [...] can be placed): Home, Self Care 05/27/25 1530 Juvencio Colon MD CC: Dr. Fina Irahtea MD Signed Normal [facility] MR/POSTOP.Julio 05-27-2025 MR/POSTOP.[facility] Medical Records Department [address] [place] [address] Anesthesia Postop Eval I 05/27/25 1544 MR#: [id number] Acct: [id number] Name: TRACY VAZQUEZ Rep #: [id number] : 1970 55 From: Alpa Morales VENETIAN BLIND INSTALLER PCP: Dr. Fina Iraheta MD Status:REG SDC Y Race: C Location: [place] [address] Anesthesia: Postop Eval I Current Vital Signs [...] completed: Yes 05/27/25 1545 Date Alpa Morales [employer]EN[employer]IAN BLIND INSTALLER Cosigner Signature: Date CC: Signed Normal [facility] MR/LOJDHQHD2cq 05-27-2025 [facility] Medical Records Department [address] [place] [address] Anesthesia Postop Eval II 05/27/25 1637 MR#: [id number] Acct: [id number] Name: ELIZABETH VAZQUEZQUELINE JUAN Rep #: [id number] : 1970 55 From: Jorge Alanis MD PCP: Dr. Fina Iraheta MD Status:REG SD Y Race: C Location: [place] [address] Anesthesia Postop Eval I Sum Postop Eval Completion status Anesthesia document: Postop Eval 1 completed: Yes Anesthesia Postop Eval I Summary Anesthesia Postop Eval I Summary: Anesthesia Postop Eval I: Assessment Summary Airway patent Yes 05/27/25 15:45 VENETIAN BLIND INSTALLER.JDEF Spontaneous unlabored Yes 05/27/25 15:45 [employer]EN[employer]IAN BLIND INSTALLER.JDEF respirations Mental status Awake,Calm 05/27/25 15:45 [employer]ENETIAN BLIND INSTALLER.JDEF nausea No 05/27/25 15:45 VENETIAN BLIND INSTALLER.JDEF Vomiting No 05/27/25 15:45 VENETIAN BLIND INSTALLER.JDEF Anesthesia Postop Eval I: Fluid Summary Crystalloid volume administer 05/27/25 15:45 VENETIAN BLIND INSTALLER.JDEF (ml) Colloids volume administered ( ml) Blood Product volume administered (ml) Total IV fluid infused ,05/27/25 15:45 VENETIAN BLIND INSTALLER.JDEF Anesthesia Postop Eval I: Summary Notes Anesthesia Complication No 05/27/25 15:45 VENETIAN BLIND INSTALLER.JDEF Anesthesia Complication Comment: Post-operative progress note Anesthesia: Postop Eval II Evaluation Mental status: Awake Pain Level: 0 nausea: No Vomiting: No Complications Anesthesia Complication: No 05/27/25 1637 Date Jorge Alanis MD Cosigner Signature: Date CC: Signed Normal [facility] Operative Reporton 5 Operative Report [facility] Medical Records Department [address] [place] [address] Operative Report 05/27/25 1526 MR#: [id number] Acct: [id number] Name: TRACY VAZQUEZ Rep #: [id number] : 1970 55 From: Juvencio Colon MD PCP: Dr. Fina Iraheta MD Status:[facility] Location: [place] [address] Operative Report (Standard) Operative Information Date of Procedure: 05/27/25 Pre-Operative Diagnosis: Cholelithiasis Post-Operative Diagnosis: Same Surgery/Procedure Performed: Robotic assisted laparoscopic cholecystectomy senior sourcing manager: Yes [employer]: Latoya Craft Tasks completed by assistant county attorney: Opening closing and Retracting Type of Anesthesia: [...] MD; Dr. Fina Iraheta MD Signed Normal [facility] HIV Viral Load Quanton 05-15 HIV-1 RNA, PCR < [address] [facility] Comment on above: Result Comment: HIV- 1 RNA not detected The reportable range for this assay is 20 to 10,000,000 copies HIV-1 RNA/mL. Performed By: #### L 500.4050, L501.2450, L100.0100 #### [facility] Laboratory [address] [place], [address] log10 HIV-1 RNA TNP Normal . [facility] Comment on above: Result Comment: Resu lt Units: phs39zaks/mL Unable to calculate result since non-numeric result obtained for component test. Performed at: [address] [id number] Materials Associate: Trevin Anguiano MD, Phone: [phone] Performed By: #### L 500.4050, L501.2450, L100.0100 #### [facility] Laboratory [address] [place], [address] CD4, T Lymph [place] 05-14-2024 % CD4 POS.LYMPH 51.4 Normal 30.8-58.5 [facility] Comment on above: Performed By: #### L 500.4050, L501.2450, L100.0100 #### [facility] Laboratory [address] [place], [address] ABSOLUTE CD4 1131 /uL Normal 359-1519 [facility] Comment on above: Performed By: #### L 500.4050, L501.2450, L100.0100 #### [facility] Laboratory [address] [place], [address] Basophils [address] [facility] Comment on above: Performed By: #### L 500.4050, L501.2450, L100.0100 #### [facility] Laboratory [address] [place], [address] Basos Absolute 0.1 x10E3/uL Normal 0.0-0.2 [facility] Comment on above: Performed By: #### L 500.4050, L501.2450, L100.0100 #### [facility] Laboratory [address] [place], [address] Eos Absolute 0.1 x10E3/uL Normal 0.0-0.4 [facility] Comment on above: Performed By: #### L 500.4050, L501.2450, L100.0100 #### [facility] Laboratory [address] [place], [address] Eosinophils [address] [facility] Comment on above: Performed By: #### L 500.4050, L501.2450, L100.0100 #### [facility] Laboratory [address] [place], [address] Erythrocyte distribution width (RBC) [Ratio] 12.4 % Normal 11.7-15.4 [facility] Comment on above: Performed By: #### L 500.4050, L501.2450, L100.0100 #### [facility] Laboratory [address] [place], [address] Hematocrit (Bld) [Volume fraction] 45.2 % Normal 34.0-46.6 [facility] Comment on above: Performed By: #### L 500.4050, L501.2450, L100.0100 #### [facility] Laboratory [address] [place], [address] Heme Comment TNP Normal . [facility] Comment on above: Performed By: #### L 500.4050, L501.2450, L100.0100 #### [facility] Laboratory [address] [place], [address] Hemoglobin (Bld) [Mass/Vol] 15.1 g/dL Normal 11.1-15.9 [facility] Comment on above: Performed By: #### L 500.4050, L501.2450, L100.0100 #### [facility] Laboratory [address] [place], [address] Imm Grans Abs 0 x10E3/uL Normal 0.0-0.1 [facility] Comment on above: Result Comment: Perf ormed at: [facility] [address] [id number] Materials Associate: Leonard Chester PhD, Phone: [phone] Performed By: #### L 500.4050, L501.2450, L100.0100 #### [facility] Laboratory [address] [place], [address] Immature Cells TNP Normal . [facility] Comment on above: Performed By: #### L 500.4050, L501.2450, L100.0100 #### [facility] Laboratory [address] [place], [address] Immature Grans [address] [facility] Comment on above: Performed By: #### L 500.4050, L501.2450, L100.0100 #### [facility] Laboratory [address] [place], [address] Lymphocytes [address] Estab[address] [facility] Comment on above: Performed By: #### L 500.4050, L501.2450, L100.0100 #### [facility] Laboratory [address] [place], [address] Lymphocytes (Bld) [#/Vol] 2.2 10*3/uL Normal 0.7-3.1 [facility] Comment on above: Performed By: #### L 500.4050, L501.2450, L100.0100 #### [facility] Laboratory [address] [place], [address] MCH (RBC) [Entitic mass] 34.4 pg High 26.6-33.0 [facility] Comment on above: Performed By: #### L 500.4050, L501.2450, L100.0100 #### [facility] Laboratory [address] [place], [address] MCHC (RBC) [Mass/Vol] 33.4 g/dL Normal 31.5-35.7 [facility] Comment on above: Performed By: #### L 500.4050, L501.2450, L100.0100 #### [facility] Laboratory [address] [place], [address] MCV (RBC) [Entitic vol] 103 fL High 79-97 [facility] Comment on above: Performed By: #### L 500.4050, L501.2450, L100.0100 #### [facility] Laboratory [address] [place], [address] Monocytes 6 [address] Not Estab. [facility] Comment on above: Performed By: #### L 500.4050, L501.2450, L100.0100 #### [facility] [address] [place], [address] Monos Absolute 0.4 x10E3/uL Normal 0.1-0.9 [facility] Comment on above: Performed By: #### L 500.4050, L501.2450, L100.0100 #### [facility] [address] [place], [address] Neutro Absolute 3.4 x10E3/uL Normal 1.4-7.0 [facility] Comment on above: Performed By: #### L 500.4050, L501.2450, L100.0100 #### [facility] [address] [place], [address] Neutrophils 56 [address] Estab[address] [facility] Comment on above: Performed By: #### L 500.4050, L501.2450, L100.0100 #### [facility] [address] [place], [address] NRBC Count TNP Normal . [facility] Comment on above: Performed By: #### L 500.4050, L501.2450, L100.0100 #### [facility] [address] [place], [address] Platelets (Bld) [#/Vol] 227 10*3/uL Normal 150-450 [facility] Comment on above: Performed By: #### L 500.4050, L501.2450, L100.0100 #### [facility] [address] [place], [address] RBC (Bld) [#/Vol] 4.39 10*6/uL Normal 3.77-5.28 [facility] Comment on above: Performed By: #### L 500.4050, L501.2450, L100.0100 #### [facility] [address] [place], [address] WBC (Bld) [#/Vol] 6.2 10*3/uL Normal 3.4-10.8 [facility] Comment on above: Performed By: #### L 500.4050, L501.2450, L100.0100 #### [facility] [address] [place], [address] Absolute lymphocyte countOrd ered By: Epi Mcdonald on 05-13-2025 Lymphocytes Auto (Unsp spec) [#/Vol] 2.24 10*3/uL 0.83-4.51 [facility] Absolute neutrophil countOrd ered By: Epi Mcdonald on 05-13-2025 Neutrophils (Bld) [#/Vol] 3.5 10*3/uL 2.0-7.7 [facility] Anion gap in Serum or Plasma Ordered By: Epi Mcdonald on 05-13-2025 Anion gap [Moles/Vol] 8 mmol/L 5-15 [facility] Automated lymphocyte count a s percentage of total leukocytesOrdered By: Epi Mcdonald on 05-13-2025 Lymphocytes/100 WBC Auto (Unsp spec) 35.4 % [facility] BUN/creatinine ratioOrdered By: Epi Mcdonald on 05-13-2025 Urea nitrogen/Creatinine [Mass ratio] 10.6 mg/mg - [facility] Basophil percentageOrdered B y: Epi Mcdonald on 05-13-2025 Basophils/100 WBC (Bld) 1.1 % High 0-1 [facility] Bilirubin, totalOrdered By: Epi Mcdonald on 05-13-2025 Bilirubin [Mass/Vol] 0.36 mg/dL 0.00-1.30 [facility] CBC W/Diff, Automatedon 04-18 Absolute Lymph 2.24 X10 3/uL Normal 0.83-4.51 [facility] Comment on above: Performed By: #### L 500.4050, L501.2450, L100.0100 #### [facility] [address] [place], [address] Absolute Neut 3.5 X10 3/uL Normal 2.0-7.7 [facility] Comment on above: Performed By: #### L 500.4050, L501.2450, L100.0100 #### [facility] [address] [place], [address] Basophils/100 WBC (Bld) 1.1 % High 0-1 [facility] Comment on above: Performed By: #### L 500.4050, L501.2450, L100.0100 #### [facility] [address] [place], [address] Eosinophils/100 WBC (Bld) 2.4 % Normal 0-5 [facility] Comment on above: Performed By: #### L 500.4050, L501.2450, L100.0100 #### [facility] [address] [place], [address] Erythrocyte distribution width (RBC) [Ratio] 12.3 % Normal 11.6-14.6 [facility] Comment on above: Performed By: #### L 500.4050, L501.2450, L100.0100 #### [facility] [address] [place], [address] Hematocrit (Bld) [Volume fraction] 43.9 % Normal 37-47 [facility] Comment on above: Performed By: #### L 500.4050, L501.2450, L100.0100 #### [facility] [address] [place], [address] Hemoglobin (Bld) [Mass/Vol] 14.8 g/dL Normal 12.0-15.0 [facility] Comment on above: Performed By: #### L 500.4050, L501.2450, L100.0100 #### [facility] [address] [place], [address] IG% 0.200 Normal 0.0-0.9 [facility] Comment on above: Result Comment: IG% - Immature Granulocytes (promyelocytes, myelocytes and metamyelocytes) > 1% indicates that a LEFT SHIFT is Present. Performed By: #### L 500.4050, L501.2450, L100.0100 #### [facility] [address] [place], [address] Lymphocytes/100 WBC (Bld) 35.4 % Normal 19-41 [facility] Comment on above: Performed By: #### L 500.4050, L501.2450, L100.0100 #### [facility] [address] [place], [address] MCH (RBC) [Entitic mass] 34.2 pg High 27.0-32.0 [facility] Comment on above: Performed By: #### L 500.4050, L501.2450, L100.0100 #### [facility] [address] [place], [address] MCHC (RBC) [Mass/Vol] 33.7 g/dL Normal 32-36 [facility] Comment on above: Performed By: #### L 500.4050, L501.2450, L100.0100 #### [facility] [address] [place], [address] MCV (RBC) [Entitic vol] 101.4 fL High 81-99 [facility] Comment on above: Performed By: #### L 500.4050, L501.2450, L100.0100 #### [facility] [address] [place], [address] Monocytes/100 WBC (Bld) 5.4 % Normal 0-10 [facility] Comment on above: Performed By: #### L 500.4050, L501.2450, L100.0100 #### [facility] [address] [place], [address] Neutrophils/100 WBC (Bld) 55.5 % Normal 47-70 [facility] Comment on above: Performed By: #### L 500.4050, L501.2450, L100.0100 #### [facility] [address] [place], [address] Nucleated RBC (Bld) [#/Vol] 0 10*3/uL Normal 0-5 [facility] Comment on above: Performed By: #### L 500.4050, L501.2450, L100.0100 #### [facility] [address] [place], [address] Platelet mean volume (Bld) [Entitic vol] 11.0 fL Normal 6.2-12.0 [facility] Comment on above: Performed By: #### L 500.4050, L501.2450, L100.0100 #### [facility] [address] [place], [address] Platelets (Bld) [#/Vol] 234 10*3/uL Normal 150-450 [facility] Comment on above: Performed By: #### L 500.4050, L501.2450, L100.0100 #### [facility] [address] [place], [address] RBC (Bld) [#/Vol] 4.33 10*6/uL Normal 4.2-5.4 [facility] Comment on above: Performed By: #### L 500.4050, L501.2450, L100.0100 #### [facility] [address] [place], [address] RDW SD 46.7 fl High 35.1-43.9 [facility] Comment on above: Performed By: #### L 500.4050, L501.2450, L100.0100 #### [facility] [address] [place], [address] WBC (Bld) [#/Vol] 6.3 10*3/uL Normal 4.4-11.0 [facility] Comment on above: Performed By: #### L 500.4050, L501.2450, L100.0100 #### [facility] [address] [place], [address] Carbon dioxide, total [Moles /volume] in Central venous bloodOrdered By: Epi Mcdonald on 05-13-2025 CO2 [Moles/Vol] 27.7 mmol/L 21.0-32.0 [facility] Chloride assayOrdered By: Sue Mcdonald on 05-13-2025 Chloride [Moles/Vol] 105 mmol/L 98-108 [facility] Cholesterolon 05-13-2025 Cholesterol [Mass/Vol] 144 mg/dL Normal <=200 [facility] Comment on above: Result Comment: Chol esterol level, Desirable <200 mg/dL Borderline high cholesterol 200-239 mg/dL High cholesterol >=240 mg/dL Recommendations of the NCEP Adult Treatment Panel for the following risk-cutoff thresholds for the [place] population. Performed By: #### L 500.4050, L501.2450, L100.0100 #### [facility] [address] [place], [address] Comprehensive Metabolic [facility] ilon 05-13-2025 Albumin [Mass/Vol] 4.3 g/dL Normal 3.5-5.0 [facility] Comment on above: Performed By: #### L 500.4050, L501.2450, L100.0100 #### [facility] [address] [place], [address] Albumin/Globulin [Mass ratio] 1.5 {ratio} Normal 0.9-2.4 [facility] Comment on above: Performed By: #### L 500.4050, L501.2450, L100.0100 #### [facility] [address] [place], [address] ALK PHOS 76 U/L Normal 35-104 [facility] Comment on above: Performed By: #### L 500.4050, L501.2450, L100.0100 #### [facility] [address] [place], [address] ALT [Catalytic activity/Vol] 11 U/L Normal <=34 [facility] Comment on above: Performed By: #### L 500.4050, L501.2450, L100.0100 #### [facility] [address] [place], [address] AST [Catalytic activity/Vol] 22 U/L Normal <=31 [facility] Comment on above: Performed By: #### L 500.4050, L501.2450, L100.0100 #### [facility] [address] [place], [address] Bilirubin [Mass/Vol] 0.36 mg/dL Normal 0.00-1.30 [facility] Comment on above: Performed By: #### L 500.4050, L501.2450, L100.0100 #### [facility] [address] [place], [address] BUN/CRE 10.6 RATIO Normal 10-20 [facility] Comment on above: Performed By: #### L 500.4050, L501.2450, L100.0100 #### [facility] [address] [place], [address] Calcium [Mass/Vol] 9.5 mg/dL Normal 7.6-11.0 [facility] Comment on above: Performed By: #### L 500.4050, L501.2450, L100.0100 #### [facility] [address] [place], [address] Chloride [Moles/Vol] 105 mmol/L Normal 98-108 [facility] Comment on above: Performed By: #### L 500.4050, L501.2450, L100.0100 #### [facility] [address] [place], [address] CO2 [Moles/Vol] 27.7 mmol/L Normal 21.0-32.0 [facility] Comment on above: Performed By: #### L 500.4050, L501.2450, L100.0100 #### [facility] [address] [place], [address] Creatinine [Mass/Vol] 1.08 mg/dL Normal 0.70-1.20 [facility] Comment on above: Performed By: #### L 500.4050, L501.2450, L100.0100 #### [facility] [address] [place], [address] GAP 8 Normal 5-15 [facility] Comment on above: Performed By: #### L 500.4050, L501.2450, L100.0100 #### [facility] [address] [place], [address] GFR/1.73 sq M.predicted among non-blacks MDRD (S/P/Bld) [Vol rate/Area] 60 mL/min/{1.73_m2} Normal >60 [facility] Comment on above: Result Comment: mL/m in/1.73m2 CKD-EPI Creatinine Equation (2020) Performed By: #### L 500.4050, L501.2450, L100.0100 #### [facility] [address] [place], [address] Globulin (S) [Mass/Vol] 2.8 g/dL Normal 2.2-4.2 [facility] Comment on above: Performed By: #### L 500.4050, L501.2450, L100.0100 #### [facility] [address] [place], [address] Glucose [Mass/Vol] 94 mg/dL Normal 70-99 [facility] Comment on above: Performed By: #### L 500.4050, L501.2450, L100.0100 #### [facility] [address] [place], [address] Potassium [Moles/Vol] 4.6 mmol/L Normal 3.3-5.1 [facility] Comment on above: Performed By: #### L 500.4050, L501.2450, L100.0100 #### [facility] [address] [place], [address] Sodium [Moles/Vol] 140 mmol/L Normal 133-145 [facility] Comment on above: Performed By: #### L 500.4050, L501.2450, L100.0100 #### [facility] [address] [place], [address] T PROT 7.2 g/dL Normal 5.9-8.4 [facility] Comment on above: Performed By: #### L 500.4050, L501.2450, L100.0100 #### [facility] [address] [place], [address] Urea nitrogen [Mass/Vol] 11 mg/dL Normal 4-19 [facility] Comment on above: Performed By: #### L 500.4050, L501.2450, L100.0100 #### [facility] [address] [place], [address] Eosinophil percentageOrdered By: Epi Mcdonald on 05-13-2025 Eosinophils/100 WBC (Bld) 2.4 % 0-5 [facility] Erythrocyte distribution wid th ratioOrdered By: Epi Mcdonald on 05-13-2025 Erythrocyte distribution width (RBC) [Ratio] 12.3 % 11.6-14.6 [facility] Erythrocyte distribution wid th standard deviationOrdered By: Epi Mcdonald on 05-13-2025 Erythrocyte distribution width (RBC) [Ratio] 46.7 fl High 35.1-43.9 [facility] Glomerular filtration rate ( GFR) estimation/1.73 sq m using serum, plasma, or whole bOrdered By: Epi Mcdonald on 05-13-2025 GFR/1.73 sq M.predicted among non-blacks MDRD (S/P/Bld) [Vol rate/Area] 60 mL/min/{1.73_m2} >60 [facility] Comment on above: mL/min/1.73m2 CKD-EP I Creatinine Equation (2020) HIP, UNI W/ Pelvis 2-3 Views on 05-13-2025 HIP, UNI W/ Pelvis 2-3 Views [facility] Imaging Services [address] [place], [place] [address] HIP, UNI W/ Pelvis 2-3 Views MR#: [id number] Acct: [id number] Name: TRACY VAZQUEZ Rep #: [id number] : 1970 F 55 From: Levi Barrios PCP: Dr. Fina Iraheta MD Status: REG CLI Study: HIP, UNI W/ Pelvis 2-3 Views Date of Exam: Exam# [id number] Ordering Dr: Gem Graves PROCEDURE: HIP, UNI [...] out a currently occult fracture. Reading Location: [place] [address] CC: PRADEEP Graves; Dr. Fina Iraheta MD Computer Patternmaker: Signed Normal [facility] Hematocrit Auto (Bld) [Volum e fraction]Ordered By: Epi Mcdonald on 05-13-2025 Hematocrit (Bld) [Volume fraction] 43.9 % 37-47 [facility] Hemoglobin measurementOrdere d By: Epi Mcdonald on 05-13-2025 Hemoglobin (Bld) [Mass/Vol] 14.8 g/dL 12.0-15.0 [facility] Immature granulocytes/100 WB C Auto (Bld)Ordered By: Epi Mcdonald on 05-13-2025 Immature granulocytes/100 WBC (Bld) 0.200 % 0.0-0.9 [facility] Comment on above: IG% - Immature Granu locytes (promyelocytes, myelocytes and metamyelocytes) > 1% indicates that a LEFT SHIFT is Present. Internal Medicine Office Vis daryl 05-13-2025 Internal Medicine Office Visit [facility] Internal Medicine [facility] [place] [address] [place] [address] OFFICE VISIT Date of Service: 05/13/25 MR#: [id number] Acct: [id number] Name: TRACY VAZQUEZ Rep #: [id number] : 1970 Provider: PRADEEP klein Age/Sex: 55/F Location[facility] Status: Signed Intake Vital Signs 05/02/25 09:59 [...] room air Intake Visit Reasons: Leg pain Special Procedure Tech Required: No Is patient in pain?: No [...] and marifer lget up to an 02/24 [facility] Medical History (Updated 05/14/25 @ 12:39 [...] apartment current occupational status: employed current occupation: [employer] Smoking Status: Current every day smoker [...] who pres (more content not included)... Normal [facility] Knee 4 or More Viewson 05-13 Knee 4 or More Views [facility] Imaging Services [address] [place], [place] [id number] Knee 4 or More Views MR#: [id number] Acct: [id number] Name: TRACY VAZQUEZ Rep #: [id number] : 1970 F 55 From: Santiago Julien MD PCP: Dr. Fina Iraheta MD Status: REG CLI Study: Knee 4 or More Views Date of Exam: 05/13/25 Exam# [id number] Ordering Dr: Gem Graves PROCEDURE: KNEE 4 [...] abnormality of the left knee. Reading Location: [id number] CC: [employer]-Verenice Graves; Dr. Fina Iraheta MD Computer Patternmaker: Signed Normal [facility] - Chemistry and C hemistry - challengeOrdered By: Epi Mcdonald on 05-13-2025 AST [Catalytic activity/Vol] 22 U/L <32 [facility] MCV (mean corpuscular volume ) determinationOrdered By: Epi Mcdonald on 05-13-2025 MCV (RBC) [Entitic vol] 101.4 fL High 81-99 [facility] Mean corpuscular hemoglobin (MCH) determinationOrdered By: Epi Mcdonald on 05-13-2025 MCH (RBC) [Entitic mass] 34.2 pg High 27.0-32.0 [facility] Mean corpuscular hemoglobin concentration (MCHC) determinationOrdered By: Epi Mcdonald on 05-13-2025 MCHC (RBC) [Mass/Vol] 33.7 g/dL 32-36 [facility] Mean platelet volume determi nationOrdered By: Epi Mcdonald on 05-13-2025 Platelet mean volume (Bld) [Entitic vol] 11.0 fL 6.2-12.0 [facility] Monocyte percentageOrdered B y: Epi Mcdonald on 05-13-2025 Monocytes/100 WBC (Bld) 5.4 % 0-10 [facility] Neutrophil percentageOrdered By: Epi Mcdonald on 05-13-2025 Neutrophils/100 WBC (Bld) 55.5 % 47-70 [facility] Nucleated red blood cell per centageOrdered By: Epi Mcdonald on 05-13-2025 Nucleated RBC/100 WBC (Bld) [Ratio] 0 % 0-5 [facility] Platelet countOrdered By: Sue Mcdonald on 05-13-2025 Platelets (Bld) [#/Vol] 234 10*3/uL 150-450 [facility] Potassium measurement (mass/ volume)Ordered By: Epi Mcdonald on 05-13-2025 Potassium (Unsp spec) [Mass/Vol] 4.6 mmol/L 3.3-5.1 [facility] RBC Auto (Bld) [#/Vol]Ordere d By: Epi Mcdonald on 05-13-2025 RBC (Bld) [#/Vol] 4.33 10*6/uL 4.2-5.4 [facility] Serum creatinine measurement (mass/volume)Ordered By: Epi Mcdonald on 05-13-2025 Creatinine [Mass/Vol] 1.08 mg/dL 0.70-1.20 [facility] Serum globulin measurementOr dered By: Epi Mcdonald on 05-13-2025 Globulin (S) [Mass/Vol] 2.8 g/dL 2.2-4.2 [facility] Serum glucose measurement (m ass/volume)Ordered By: Epi Mcdonald on 05-13-2025 Glucose [Mass/Vol] 94 mg/dL 70-99 [facility] Serum or plasma alanine vizcaino otransferase (ALT) measurementOrdered By: Epi Mcdonald on 05-13-2025 ALT [Catalytic activity/Vol] 11 U/L <35 [facility] Serum or plasma albumin hortensia urement (mass/volume)Ordered By: Epi Mcdonald on 05-13-2025 Albumin [Mass/Vol] 4.3 g/dL 3.5-5.0 [facility] Serum or plasma albumin/glob ulin mass ratioOrdered By: Epi Mcdonald on 05-13-2025 Albumin/Globulin [Mass ratio] 1.5 {ratio} 0.9-2.4 [facility] Serum or plasma alkaline hubert sphatase measurementOrdered By: Epi Mcdonald on 05-13-2025 ALP [Catalytic activity/Vol] 76 U/L 35-104 [facility] Serum or plasma calcium hortensia urement (mass/volume)Ordered By: Epi Mcdonald on 05-13-2025 Calcium [Mass/Vol] 9.5 mg/dL 7.6-11.0 [facility] Serum or plasma cholesterol measurement (mass/volume)Ordered By: Epi Mcdonald on 05-13-2025 Cholesterol [Mass/Vol] 144 mg/dL <201 [facility] Comment on above: Cholesterol level, D esirable <200 mg/dLBorderline high cholesterol 200-239 mg/dLHigh cholesterol >=240 mg/dLRecommendations of the NCEP Adult Treatment Panel for the following risk-cutoff thresholds for the [place] population. Serum or plasma urea nitroge n measurement (mass/volume)Ordered By: Epi Mcdonald on 05-13-2025 Urea nitrogen [Mass/Vol] 11 mg/dL 4-19 [facility] Sodium levelOrdered By: Chester Mcdonald on 05-13-2025 Sodium [Moles/Vol] 140 mmol/L 133-145 [facility] Total proteinOrdered By: Anthony Mcdonald on 05-13-2025 Protein [Mass/Vol] 7.2 g/dL 5.9-8.4 [facility] Triglycerideson 05-13-2025 Triglyceride [Mass/Vol] 177 mg/dL Normal [facility] Comment on above: Result Comment: The drugs N-Acetylcysteine and Metamizole may falsely depress this assay. Normal range: <150 mg/dL Borderline High: 150-199 mg/dL High: 200-499 mg/dL Very High: >500 mg/dL Performed By: #### L 500.4050, L501.2450, L100.0100 #### [facility] [address] [place], [address] Triglycerides measurementOrd ered By: Epi Mcdonald on 05-13-2025 Triglyceride [Mass/Vol] 177 mg/dL <199 [facility] Comment on above: The drugs N-Acetylcy steine and Metamizole may falsely depress this assay. Normal range: <150 mg/dLBorderline High: 150-199 mg/dLHigh: 200-499 mg/dLVery High: >500 mg/dL White blood cell (WBC) count Ordered By: Epi Mcdonald on 05-13-2025 WBC (Bld) [#/Vol] 6.3 10*3/uL 4.4-11.0 [facility] Surgery Visit Reporton 05-02 Surgery Visit Report [facility] [address] [place], [place] [address] OFFICE VISIT Date of Service: 05/02/25 MR#: [id number] Acct: [id number] Name: TRACY VAZQUEZ Rep #: [id number] : 1970 Provider: Dr. Juvencio browne MD Age/Sex: 55/F Location: [facility] Status: Signed Intake Vital Signs 03/15/25 17:06 [...] carbonate)-vitamin D3 15 mcg (600 unit) tablet [facility] Medical History (Updated 05/02/25 @ 09:59 [...] apartment current occupational status: employed current occupation: [employer] Smoking Status: Current every day smoker [...] arthritis, go (more content not included)... Normal [facility] Abdomen Limitedon 04-18-2025 Abdomen Limited [facility] Imaging Services [address] [place] [address] Abdomen Limited MR#: [id number] Acct: [id number] Name: TRACY VAZQUEZ Rep #: [id number] : 1970 F 55 From: Lawrence Thakur MD PCP: Dr. Fina Iraheta MD Status: REG CLI Study: Abdomen Limited Date of Exam: 04/18/25 Exam# [id number] Ordering Dr: Gem Graves [employer]APEJennifer PROCEDURE: ABDOMEN LIMITED 04/18/2025 REASON FOR EXAM: [...] to 1.3 cm. No hydronephrosis. Reading Location: [id number] CC: PRADEEP Graves; Dr. Fina Iraheta MD Computer Patternmaker: Signed Normal [facility] Absolute lymphocyte countOrd ered By: Bozena Sol on 03-15-2025 Lymphocytes Auto (Unsp spec) [#/Vol] 3.13 10*3/uL 0.83-4.51 [facility] Absolute neutrophil countOrd ered By: Bozena Sol on 03-15-2025 Neutrophils (Bld) [#/Vol] 4.8 10*3/uL 2.0-7.7 [facility] Anion gap in Serum or Plasma Ordered By: Bozena Sol on 03-15-2025 Anion gap [Moles/Vol] 12 mmol/L 5-15 [facility] Automated lymphocyte count a s percentage of total leukocytesOrdered By: Bozena Sol on 03-15-2025 Lymphocytes/100 WBC Auto (Unsp spec) 35.4 % 19- [facility] BUN/creatinine ratioOrdered By: Bozena Sol on 03-15-2025 Urea nitrogen/Creatinine [Mass ratio] 9.3 mg/mg Low 10-20 [facility] Basophil percentageOrdered B y: Bozena Sol on 03-15-2025 Basophils/100 WBC (Bld) 0.7 % 0-1 [facility] Bilirubin, totalOrdered By: Bozena Sol on 03-15-2025 Bilirubin [Mass/Vol] 0.68 mg/dL 0.00-1.30 [facility] CBC W/Diff, Automatedon 02-16 Absolute Lymph 3.13 X10 3/uL Normal 0.83-4.51 [facility] Comment on above: Performed By: #### L 500.4050, L501.2450, L100.0100 #### [facility] [address] [place], [address] Absolute Neut 4.8 X10 3/uL Normal 2.0-7.7 [facility] Comment on above: Performed By: #### L 500.4050, L501.2450, L100.0100 #### [facility] [address] [place], [address] Basophils/100 WBC (Bld) 0.7 % Normal 0-1 [facility] Comment on above: Performed By: #### L 500.4050, L501.2450, L100.0100 #### [facility] [address] [place], [address] Eosinophils/100 WBC (Bld) 2.0 % Normal 0-5 [facility] Comment on above: Performed By: #### L 500.4050, L501.2450, L100.0100 #### [facility] [address] [place], [address] Erythrocyte distribution width (RBC) [Ratio] 12.6 % Normal 11.6-14.6 [facility] Comment on above: Performed By: #### L 500.4050, L501.2450, L100.0100 #### [facility] [address] [place], [address] Hematocrit (Bld) [Volume fraction] 44.8 % Normal 37-47 [facility] Comment on above: Performed By: #### L 500.4050, L501.2450, L100.0100 #### [facility] [address] [place], [address] Hemoglobin (Bld) [Mass/Vol] 15.5 g/dL High 12.0-15.0 [facility] Comment on above: Performed By: #### L 500.4050, L501.2450, L100.0100 #### [facility] [address] [place], [address] IG% 0.300 Normal 0.0-0.9 [facility] Comment on above: Result Comment: IG% - Immature Granulocytes (promyelocytes, myelocytes and metamyelocytes) > 1% indicates that a LEFT SHIFT is Present. Performed By: #### L 500.4050, L501.2450, L100.0100 #### [facility] [address] [place], [address] Lymphocytes/100 WBC (Bld) 35.4 % Normal 19-41 [facility] Comment on above: Performed By: #### L 500.4050, L501.2450, L100.0100 #### [facility] [address] [place], [address] MCH (RBC) [Entitic mass] 34.5 pg High 27.0-32.0 [facility] Comment on above: Performed By: #### L 500.4050, L501.2450, L100.0100 #### [facility] [address] [place], [address] MCHC (RBC) [Mass/Vol] 34.6 g/dL Normal 32-36 [facility] Comment on above: Performed By: #### L 500.4050, L501.2450, L100.0100 #### [facility] [address] [place], [address] MCV (RBC) [Entitic vol] 99.8 fL High 81-99 [facility] Comment on above: Performed By: #### L 500.4050, L501.2450, L100.0100 #### [facility] [address] [place], [address] Monocytes/100 WBC (Bld) 6.9 % Normal 0-10 [facility] Comment on above: Performed By: #### L 500.4050, L501.2450, L100.0100 #### [facility] [address] [place], [address] Neutrophils/100 WBC (Bld) 54.7 % Normal 47-70 [facility] Comment on above: Performed By: #### L 500.4050, L501.2450, L100.0100 #### [facility] [address] [place], [address] Nucleated RBC (Bld) [#/Vol] 0 10*3/uL Normal 0-5 [facility] Comment on above: Performed By: #### L 500.4050, L501.2450, L100.0100 #### [facility] [address] [place], [address] Platelet mean volume (Bld) [Entitic vol] 10.7 fL Normal 6.2-12.0 [facility] Comment on above: Performed By: #### L 500.4050, L501.2450, L100.0100 #### [facility] [address] [place], [address] Platelets (Bld) [#/Vol] 243 10*3/uL Normal 150-450 [facility] Comment on above: Performed By: #### L 500.4050, L501.2450, L100.0100 #### [facility] [address] [place], [address] RBC (Bld) [#/Vol] 4.49 10*6/uL Normal 4.2-5.4 [facility] Comment on above: Performed By: #### L 500.4050, L501.2450, L100.0100 #### [facility] [address] [place], [address] RDW SD 46.5 fl High 35.1-43.9 [facility] Comment on above: Performed By: #### L 500.4050, L501.2450, L100.0100 #### [facility] [address] [place], [address] WBC (Bld) [#/Vol] 8.8 10*3/uL Normal 4.4-11.0 [facility] Comment on above: Performed By: #### L 500.4050, L501.2450, L100.0100 #### [facility] [place], [address] CNOVon 03-15-2025 CNOV Office Visit ([facility]) ----- TRACY VAZQUEZ ([id number]) 1970 F Date Time Provider Department 03/15/25 [...] - Fully Assessed Reason for Visit: Itching [59866] Cmt: feet Gas [49] Nausea [70] Primary [...] 02/28/2024 Level of Service: OFFICE/OUTPATIENT ESTABLISHED HIGH [facility] 40 MIN [95997] Encounter Status:Closed by RUBINA CAMPOS on 03/15/25 Normal [facility] Carbon dioxide, total [Moles /volume] in Central venous bloodOrdered By: Bozena Sol on 03-15-2025 CO2 [Moles/Vol] 28.3 mmol/L 21.0-32.0 [facility] Chloride assayOrdered By: Chen Sol on 03-15-2025 Chloride [Moles/Vol] 101 mmol/L 98-108 [facility] Comprehensive Metabolic Prof ilon 03-15-2025 Albumin [Mass/Vol] 4.5 g/dL Normal 3.5-5.0 [facility] Comment on above: Performed By: #### L 500.4050, L501.2450, L100.0100 #### [facility] [facility] [address] [place], [address] Albumin/Globulin [Mass ratio] 1.6 {ratio} Normal 0.9-2.4 [facility] Comment on above: Performed By: #### L 500.4050, L501.2450, L100.0100 #### [facility] [address] [place], [address] ALK PHOS 80 U/L Normal 35-104 [facility] Comment on above: Performed By: #### L 500.4050, L501.2450, L100.0100 #### [facility] [address] [place], [address] ALT [Catalytic activity/Vol] 13 U/L Normal <=34 [facility] Comment on above: Performed By: #### L 500.4050, L501.2450, L100.0100 #### [facility] [address] [place], [address] AST [Catalytic activity/Vol] 17 U/L Normal <=31 [facility] Comment on above: Performed By: #### L 500.4050, L501.2450, L100.0100 #### [facility] [address] [place], [address] Bilirubin [Mass/Vol] 0.68 mg/dL Normal 0.00-1.30 [facility] Comment on above: Performed By: #### L 500.4050, L501.2450, L100.0100 #### [facility] [address] [place], [address] BUN/CRE 9.3 RATIO Low 10-20 [facility] Comment on above: Performed By: #### L 500.4050, L501.2450, L100.0100 #### [facility] [address] [place], [address] Calcium [Mass/Vol] 9.7 mg/dL Normal 7.6-11.0 [facility] Comment on above: Performed By: #### L 500.4050, L501.2450, L100.0100 #### [facility] [address] [place], [address] Chloride [Moles/Vol] 101 mmol/L Normal 98-108 [facility] Comment on above: Performed By: #### L 500.4050, L501.2450, L100.0100 #### [facility] [address] [place], [address] CO2 [Moles/Vol] 28.3 mmol/L Normal 21.0-32.0 [facility] Comment on above: Performed By: #### L 500.4050, L501.2450, L100.0100 #### [facility] [address] [place], [address] Creatinine [Mass/Vol] 1.01 mg/dL Normal 0.70-1.20 [facility] Comment on above: Performed By: #### L 500.4050, L501.2450, L100.0100 #### [facility] [address] [place], [address] ECRCL 48.60 ml/min Low 50-250 [facility] Comment on above: Performed By: #### L 500.4050, L501.2450, L100.0100 #### [facility] [address] [place], [address] GAP 12 Normal 5-15 [facility] Comment on above: Performed By: #### L 500.4050, L501.2450, L100.0100 #### [facility] [address] [place], [address] GFR/1.73 sq M.predicted among non-blacks MDRD (S/P/Bld) [Vol rate/Area] 65 mL/min/{1.73_m2} Normal >60 [facility] Comment on above: Result Comment: mL/m in/1.73m2 CKD-EPI Creatinine Equation (2020) Performed By: #### L 500.4050, L501.2450, L100.0100 #### [facility] [address] [place], [address] Globulin (S) [Mass/Vol] 2.9 g/dL Normal 2.2-4.2 [facility] Comment on above: Performed By: #### L 500.4050, L501.2450, L100.0100 #### [facility] [address] [place], [address] Glucose [Mass/Vol] 75 mg/dL Normal 70-99 [facility] Comment on above: Performed By: #### L 500.4050, L501.2450, L100.0100 #### [facility] [address] [place], [address] Potassium [Moles/Vol] 3.7 mmol/L Normal 3.3-5.1 [facility] Comment on above: Performed By: #### L 500.4050, L501.2450, L100.0100 #### [facility] [address] [place], [address] Sodium [Moles/Vol] 141 mmol/L Normal 133-145 [facility] Comment on above: Performed By: #### L 500.4050, L501.2450, L100.0100 #### [facility] [address] [place], [address] T PROT 7.4 g/dL Normal 5.9-8.4 [facility] Comment on above: Performed By: #### L 500.4050, L501.2450, L100.0100 #### [facility] [address] [place], [address] Urea nitrogen [Mass/Vol] 9 mg/dL Normal 4-19 [facility] Comment on above: Performed By: #### L 500.4050, L501.2450, L100.0100 #### [facility] [address] [place], [address] Emergency Department Summary on 03-15-2025 Emergency Department Summary [facility] Medical Records Department [address] [place] [address] Emergency Department Summary 03/15/25 MR#: [id number] Acct: [id number] Name: TRACY VAZQUEZ Rep #: [id number] : 1970 55 From: Herman Faust MD [...] or liver and recommended she come in. [facility] Medical History Muscle cramps Rhinitis Breast [...] apartment current occupational status: employed current occupation: [employer] Smoking Status: Current every day smoker [...] CONST: Patie (more content not included)... Normal [facility] Eosinophil percentageOrdered By: Bozena Sol on 03-15-2025 Eosinophils/100 WBC (Bld) 2.0 % 0-5 [facility] Erythrocyte distribution wid th ratioOrdered By: Bozena Sol on 03-15-2025 Erythrocyte distribution width (RBC) [Ratio] 12.6 % 11.6-14.6 [facility] Erythrocyte distribution wid th standard deviationOrdered By: Bozena Sol on 03-15-2025 Erythrocyte distribution width (RBC) [Ratio] 46.5 fl High 35.1-43.9 [facility] Glomerular filtration rate ( GFR) estimation/1.73 sq m using serum, plasma, or whole bOrdered By: Bozena Sol on 03-15-2025 GFR/1.73 sq M.predicted among non-blacks MDRD (S/P/Bld) [Vol rate/Area] 65 mL/min/{1.73_m2} >60 [facility] Comment on above: mL/min/1.73m2 CKD-EP I Creatinine Equation (2020) Hematocrit Auto (Bld) [Volum e fraction]Ordered By: Bozena Sol on 03-15-2025 Hematocrit (Bld) [Volume fraction] 44.8 % 37-47 [facility] Hemoglobin measurementOrdere d By: Bozena Sol on 03-15-2025 Hemoglobin (Bld) [Mass/Vol] 15.5 g/dL High 12.0-15.0 [facility] Immature granulocytes/100 WB C Auto (Bld)Ordered By: Bozena Sol on 03-15-2025 Immature granulocytes/100 WBC (Bld) 0.300 % 0.0-0.9 [facility] Comment on above: IG% - Immature Granu locytes (promyelocytes, myelocytes and metamyelocytes) > 1% indicates that a LEFT SHIFT is Present. Laboratory - Chemistry and C hemistry - challengeOrdered By: Bozena Sol on 03-15-2025 AST [Catalytic activity/Vol] 17 U/L <32 [facility] Lipaseon 03-15-2025 Lipase [Catalytic activity/Vol] 19 U/L Normal 13-75 [facility] Comment on above: Result Comment: Tye ku note: LIPASE revised reference range effective 22. New Lipase methodology. Expected to produce lower values than the previous assay method. NEW Reference Range: 13 - 75 U/L Performed By: #### L 500.4050, L501.2450, L100.0100 #### [facility] [place], [address] Lipase measurementOrdered By : Bozena Sol on 03-15-2025 Lipase [Catalytic activity/Vol] 19 U/L 13-75 [facility] Comment on above: Please note:LIPASE r evised reference range effective 22. New Lipase methodology. Expected to produce lower values than the previous assay method. NEW Reference Range: 13 - 75 U/L MCV (mean corpuscular volume ) determinationOrdered By: Bozena Sol on 03-15-2025 MCV (RBC) [Entitic vol] 99.8 fL High 81-99 [facility] Mean corpuscular hemoglobin (MCH) determinationOrdered By: Bozena Sol on 03-15-2025 MCH (RBC) [Entitic mass] 34.5 pg High 27.0-32.0 [facility] Mean corpuscular hemoglobin concentration (MCHC) determinationOrdered By: Bozena Sol on 03-15-2025 MCHC (RBC) [Mass/Vol] 34.6 g/dL 32-36 [facility] Mean platelet volume determi nationOrdered By: Bozena Sol on 03-15-2025 Platelet mean volume (Bld) [Entitic vol] 10.7 fL 6.2-12.0 [facility] Monocyte percentageOrdered B y: Bozena Sol on 03-15-2025 Monocytes/100 WBC (Bld) 6.9 % 0-10 [facility] Neutrophil percentageOrdered By: Bozena Sol on 03-15-2025 Neutrophils/100 WBC (Bld) 54.7 % 47-70 [facility] Nucleated red blood cell per centageOrdered By: Bozena Sol on 03-15-2025 Nucleated RBC/100 WBC (Bld) [Ratio] 0 % 0-5 [facility] Platelet countOrdered By: Chen Sol on 03-15-2025 Platelets (Bld) [#/Vol] 243 10*3/uL 150-450 [facility] Potassium measurement (mass/ volume)Ordered By: Bozena Sol on 03-15-2025 Potassium (Unsp spec) [Mass/Vol] 3.7 mmol/L 3.3-5.1 [facility] RBC Auto (Bld) [#/Vol]Ordere d By: Bozena Sol on 03-15-2025 RBC (Bld) [#/Vol] 4.49 10*6/uL 4.2-5.4 [facility] Serum creatinine measurement (mass/volume)Ordered By: Bozena Sol on 03-15-2025 Creatinine [Mass/Vol] 1.01 mg/dL 0.70-1.20 [facility] Serum globulin measurementOr dered By: Bozena Sol on 03-15-2025 Globulin (S) [Mass/Vol] 2.9 g/dL 2.2-4.2 [facility] Serum glucose measurement (m ass/volume)Ordered By: Bozena Sol on 03-15-2025 Glucose [Mass/Vol] 75 mg/dL 70-99 [facility] Serum or plasma alanine vizcaino otransferase (ALT) measurementOrdered By: Bozena Sol on 03-15-2025 ALT [Catalytic activity/Vol] 13 U/L <35 [facility] Serum or plasma albumin hortensia urement (mass/volume)Ordered By: Bozena Sol on 03-15-2025 Albumin [Mass/Vol] 4.5 g/dL 3.5-5.0 [facility] Serum or plasma albumin/glob ulin mass ratioOrdered By: Bozena Sol on 03-15-2025 Albumin/Globulin [Mass ratio] 1.6 {ratio} 0.9-2.4 [facility] Serum or plasma alkaline hubert sphatase measurementOrdered By: Bozena Sol on 03-15-2025 ALP [Catalytic activity/Vol] 80 U/L 35-104 [facility] Serum or plasma calcium hortensia urement (mass/volume)Ordered By: Bozena Sol on 03-15-2025 Calcium [Mass/Vol] 9.7 mg/dL 7.6-11.0 [facility] Serum or plasma urea nitroge n measurement (mass/volume)Ordered By: Bozena Sol on 03-15-2025 Urea nitrogen [Mass/Vol] 9 mg/dL 4-19 [facility] Sodium levelOrdered By: Bozena Sol on 03-15-2025 Sodium [Moles/Vol] 141 mmol/L 133-145 [facility] Total proteinOrdered By: Tori Sol on 03-15-2025 Protein [Mass/Vol] 7.4 g/dL 5.9-8.4 [facility] White blood cell (WBC) count Ordered By: Bozena Sol on 03-15-2025 WBC (Bld) [#/Vol] 8.8 10*3/uL 4.4-11.0 [facility] Internal Medicine Office Vis daryl 03-11-2025 Internal Medicine Office Visit [facility] [address] [place] [address] [address] [place], [place] [id number] OFFICE VISIT Date of Service: 03/11/25 MR#: [id number] Acct: [id number] Name: TRACY VAZQUEZ Rep #: [id number] : 1970 Provider: PRADEEP klein Age/Sex: 55/F Location[facility] Status: Signed Intake Vital Signs 03/08/25 08:41 [...] Up ([facility]) Chief Complaint: 6 M FU Special Procedure Tech Required: No Is patient in pain?: No [...] ears looked at as they feel clogged. [facility] Medical History Muscle cramps Rhinitis Breast [...] apartment current occupational status: employed current occupation: [employer] Smoking Status: Current every day smoker [...] Jordan Constituti (more content not included)... Normal [facility] Abdomen/Pelvis W IV Cont ONL Yon 03-08-2025 Abdomen/Pelvis W IV Cont ONLY [facility] Imaging Services [address] [place], [place] [address] Abdomen/Pelvis W IV Cont ONLY MR#: [id number] Acct: [id number] Name: TRACY VAZQUEZ Rep #: [id number] : 1970 F 55 From: Sarkis Castañeda MD PCP: Dr. Fina Iraheta MD Status: REG ER Study: Abdomen/Pelvis W IV Cont ONLY Date of Exam: Exam# [id number] Ordering Dr: Saturnino Mix DO PROCEDURE: ABDOMEN/PELVIS [...] required. 4. No acute abnormality. Reading Location: [id number] CC: Dr. Fina Iraheta MD; Dr. Saturnino Mix DO Computer Patternmaker: Signed Normal [facility] Absolute lymphocyte countOrd ered By: Saturnino Mix on 03-08-2025 Lymphocytes Auto (Unsp spec) [#/Vol] 1.78 10*3/uL 0.83-4.51 [facility] Absolute neutrophil countOrd ered By: Saturnino Mix on 03-08-2025 Neutrophils (Bld) [#/Vol] 3.5 10*3/uL 2.0-7.7 [facility] Anion gap in Serum or Plasma Ordered By: Saturnino Mix on 03-08-2025 Anion gap [Moles/Vol] 11 mmol/L 5-15 [facility] Automated lymphocyte count a s percentage of total leukocytesOrdered By: Saturnino Mix on 03-08-2025 Lymphocytes/100 WBC Auto (Unsp spec) 30.7 % 19-41 [facility] BUN/creatinine ratioOrdered By: Saturnino Mix on 03-08-2025 Urea nitrogen/Creatinine [Mass ratio] 9.2 mg/mg Low 10-20 [facility] Basophil percentageOrdered B y: Saturnino Mix on 03-08-2025 Basophils/100 WBC (Bld) 0.7 % 0-1 [facility] Bilirubin Test strip Ql (U)O rdered By: Saturnino Mix on 03-08-2025 Bilirubin Ql (U) Negative Negative [facility] Bilirubin, totalOrdered By: Saturnino Mix on 03-08-2025 Bilirubin [Mass/Vol] 0.58 mg/dL 0.00-1.30 [facility] CBC W/Diff, Automatedon 02-16 Absolute Lymph 1.78 X10 3/uL Normal 0.83-4.51 [facility] Comment on above: Performed By: #### L 100.0100, L501.2450, L500.4050 #### [facility] [address] [place], [address] Absolute Neut 3.5 X10 3/uL Normal 2.0-7.7 [facility] Comment on above: Performed By: #### L 100.0100, L501.2450, L500.4050 #### [facility] [address] [place], [address] Basophils/100 WBC (Bld) 0.7 % Normal 0-1 [facility] Comment on above: Performed By: #### L 100.0100, L501.2450, L500.4050 #### [facility] [address] [place], [address] Eosinophils/100 WBC (Bld) 2.1 % Normal 0-5 [facility] Comment on above: Performed By: #### L 100.0100, L501.2450, L500.4050 #### [facility] [address] [place], [address] Erythrocyte distribution width (RBC) [Ratio] 12.4 % Normal 11.6-14.6 [facility] Comment on above: Performed By: #### L 100.0100, L501.2450, L500.4050 #### [facility] [address] [place], [address] Hematocrit (Bld) [Volume fraction] 39.9 % Normal 37-47 [facility] Comment on above: Performed By: #### L 100.0100, L501.2450, L500.4050 #### [facility] [address] [place], [address] Hemoglobin (Bld) [Mass/Vol] 13.7 g/dL Normal 12.0-15.0 [facility] Comment on above: Performed By: #### L 100.0100, L501.2450, L500.4050 #### [facility] [address] [place], [address] IG% 0.200 Normal 0.0-0.9 [facility] Comment on above: Result Comment: IG% - Immature Granulocytes (promyelocytes, myelocytes and metamyelocytes) > 1% indicates that a LEFT SHIFT is Present. Performed By: #### L 100.0100, L501.2450, L500.4050 #### [facility] [address] [place], [address] Lymphocytes/100 WBC (Bld) 30.7 % Normal 19-41 [facility] Comment on above: Performed By: #### L 100.0100, L501.2450, L500.4050 #### [facility] [address] [place], [address] MCH (RBC) [Entitic mass] 34.3 pg High 27.0-32.0 [facility] Comment on above: Performed By: #### L 100.0100, L501.2450, L500.4050 #### [facility] [address] [place], [address] MCHC (RBC) [Mass/Vol] 34.3 g/dL Normal 32-36 [facility] Comment on above: Performed By: #### L 100.0100, L501.2450, L500.4050 #### [facility] [address] [place], [address] MCV (RBC) [Entitic vol] 99.8 fL High 81-99 [facility] Comment on above: Performed By: #### L 100.0100, L501.2450, L500.4050 #### [facility] [address] [place], [address] Monocytes/100 WBC (Bld) 6.7 % Normal 0-10 [facility] Comment on above: Performed By: #### L 100.0100, L501.2450, L500.4050 #### [facility] [address] [place], [address] Neutrophils/100 WBC (Bld) 59.6 % Normal 47-70 [facility] Comment on above: Performed By: #### L 100.0100, L501.2450, L500.4050 #### [facility] [address] [place], [address] Nucleated RBC (Bld) [#/Vol] 0 10*3/uL Normal 0-5 [facility] Comment on above: Performed By: #### L 100.0100, L501.2450, L500.4050 #### [facility] [address] [place], [address] Platelet mean volume (Bld) [Entitic vol] 10.7 fL Normal 6.2-12.0 [facility] Comment on above: Performed By: #### L 100.0100, L501.2450, L500.4050 #### [facility] [address] [place], [address] Platelets (Bld) [#/Vol] 198 10*3/uL Normal 150-450 [facility] Comment on above: Performed By: #### L 100.0100, L501.2450, L500.4050 #### [facility] [address] [place], [address] RBC (Bld) [#/Vol] 4.00 10*6/uL Low 4.2-5.4 [facility] Comment on above: Performed By: #### L 100.0100, L501.2450, L500.4050 #### [facility] [address] [place], [address] RDW SD 45.2 fl High 35.1-43.9 [facility] Comment on above: Performed By: #### L 100.0100, L501.2450, L500.4050 #### [facility] [address] [place], [address] WBC (Bld) [#/Vol] 5.8 10*3/uL Normal 4.4-11.0 [facility] Comment on above: Performed By: #### L 100.0100, L501.2450, L500.4050 #### [facility] [address] [place], [address] CNOVon 03-08-2025 CNOV Office Visit (WOLINDA) ----- TRACY VAZQUEZ ([id number]) 1970 F Date Time Provider Department 03/08/25 8:15 AM GINNY JAIMES During your visit today, we recorded the following information about you: Temperature Pulse Respiration Blood pressure 96.7 degrees 63/minute 22/minute 121/87 Weight 56 kg Ginny Jaimes APRN.FERTILIZING MACHINE OPERATOR 03/08/2025 8:43 AM Signed [facility] Subjective Tracy Vazquez is a 55 year old female. Patient presents with: Abdominal Pain: Nausea, Gerd, headache, vomiting, cough, RLQ abd pain x 2 days HPI Abdominal Pain: - Onset: Recent. - Location: RLQ. - Severity: Rates pain as 6/10, but is now keeping her up at night worsening. - Denies seeing a postpartum rn. Vomiting: - Vomiting mucus; describes it as thick and like gum. - Taking Mucinex. Headaches: - Took Tylenol 2.5 hours ago. GERD: - Previously managed with Pepcid AC; discontinued to improve B12 absorption. - Takes B12 tablets daily. - Describes typical GERD symptoms as chest and throat discomfort, not abdominal pain. Emphysema: - Managed by Dr. Metcalf, subsystems engineer; next appointment on the . - Reports [...] is clear HIV (human immunodeficiency virus infection) ([facility]) 2009 Dr. Mcdonald-ID Left posterior fascicular block [...] perform imaging (more content not included)... [facility] CNP[facility] Telephone (PULMWS) ----- TRACY VAZQUEZ ([id number]) 1970 F Date Time Provider Department 03/08/25 AYAD METCALF During your visit today, we recorded the following information about you: Kelly Durant 03/08/2025 2:21 PM Signed Patient calling in stating Ayad was going to call her in a prescription for Emphysema today to [facility]. Patient states she was over at our [place] facility and spoke to a nurse. Please [...] to reassess symptoms following treatment. Ayad Metcalf APRN.FERTILIZING MACHINE OPERATOR Allergies As of Date: 03/08/2025 Noted Allergy [...] Status:Closed by KELLY DURANT on 03/29/25 Normal [facility] Carbon dioxide, total [Moles /volume] in Central venous bloodOrdered By: Saturnino Mix on 03-08-2025 CO2 [Moles/Vol] 24.5 mmol/L 21.0-32.0 [facility] Chloride assayOrdered By: Roberto Mix on 03-08-2025 Chloride [Moles/Vol] 106 mmol/L 98-108 [facility] Comprehensive Metabolic Prof ilon 03-08-2025 Albumin [Mass/Vol] 4.2 g/dL Normal 3.5-5.0 [facility] Comment on above: Performed By: #### L 100.0100, L501.2450, L500.4050 #### [facility] [address] [place], [address] Albumin/Globulin [Mass ratio] 1.7 {ratio} Normal 0.9-2.4 [facility] Comment on above: Performed By: #### L 100.0100, L501.2450, L500.4050 #### [facility] [address] [place], [address] ALK PHOS 74 U/L Normal 35-104 [facility] Comment on above: Performed By: #### L 100.0100, L501.2450, L500.4050 #### [facility] [address] [place], [address] ALT [Catalytic activity/Vol] 7 U/L Normal <=34 [facility] Comment on above: Performed By: #### L 100.0100, L501.2450, L500.4050 #### [facility] [address] [place], [address] AST [Catalytic activity/Vol] 19 U/L Normal <=31 [facility] Comment on above: Performed By: #### L 100.0100, L501.2450, L500.4050 #### [facility] [address] [place], [address] Bilirubin [Mass/Vol] 0.58 mg/dL Normal 0.00-1.30 [facility] Comment on above: Performed By: #### L 100.0100, L501.2450, L500.4050 #### [facility] [address] [place], [address] BUN/CRE 9.2 RATIO Low 10-20 [facility] Comment on above: Performed By: #### L 100.0100, L501.2450, L500.4050 #### [facility] [address] [place], [address] Calcium [Mass/Vol] 8.9 mg/dL Normal 7.6-11.0 [facility] Comment on above: Performed By: #### L 100.0100, L501.2450, L500.4050 #### [facility] [address] [place], [address] Chloride [Moles/Vol] 106 mmol/L Normal 98-108 [facility] Comment on above: Performed By: #### L 100.0100, L501.2450, L500.4050 #### [facility] [address] [place], [address] CO2 [Moles/Vol] 24.5 mmol/L Normal 21.0-32.0 [facility] Comment on above: Performed By: #### L 100.0100, L501.2450, L500.4050 #### [facility] [address] [place], [address] Creatinine [Mass/Vol] 0.94 mg/dL Normal 0.70-1.20 [facility] Comment on above: Performed By: #### L 100.0100, L501.2450, L500.4050 #### [facility] [address] [place], [address] ECRCL 52.22 ml/min Normal 50-250 [facility] Comment on above: Performed By: #### L 100.0100, L501.2450, L500.4050 #### [facility] [address] [place], [address] GAP 11 Normal 5-15 [facility] Comment on above: Performed By: #### L 100.0100, L501.2450, L500.4050 #### [facility] [address] [place], [address] GFR/1.73 sq M.predicted among non-blacks MDRD (S/P/Bld) [Vol rate/Area] 71 mL/min/{1.73_m2} Normal >60 [facility] Comment on above: Result Comment: mL/m in/1.73m2 CKD-EPI Creatinine Equation (2020) Performed By: #### L 100.0100, L501.2450, L500.4050 #### [facility] [address] [place], [address] Globulin (S) [Mass/Vol] 2.4 g/dL Normal 2.2-4.2 [facility] Comment on above: Performed By: #### L 100.0100, L501.2450, L500.4050 #### [facility] [address] [place], [address] Glucose [Mass/Vol] 94 mg/dL Normal 70-99 [facility] Comment on above: Performed By: #### L 100.0100, L501.2450, L500.4050 #### [facility] [address] [place], [address] Potassium [Moles/Vol] 3.8 mmol/L Normal 3.3-5.1 [facility] Comment on above: Performed By: #### L 100.0100, L501.2450, L500.4050 #### [facility] [address] [place], [address] Sodium [Moles/Vol] 141 mmol/L Normal 133-145 [facility] Comment on above: Performed By: #### L 100.0100, L501.2450, L500.4050 #### [facility] [address] [place], [address] T PROT 6.6 g/dL Normal 5.9-8.4 [facility] Comment on above: Performed By: #### L 100.0100, L501.2450, L500.4050 #### [facility] [address] [place], [address] Urea nitrogen [Mass/Vol] 9 mg/dL Normal 4-19 [facility] Comment on above: Performed By: #### L 100.0100, L501.2450, L500.4050 #### [facility] [address] [place], [address] Emergency Department Summary on 03-08-2025 Emergency Department Summary [facility] Medical Records Department [address] [place] [address] Emergency Department Summary 03/08/25 MR#: [id number] Acct: [id number] Name: TRACY VAZQUEZ Rep #: [id number] : 1970 55 From: Saturnino Mix DO [...] has a history of COPD and HIV. [facility] Medical History Muscle cramps Rhinitis Breast [...] apartment current occupational status: employed current occupation: [employer] Smoking Status: Current every day smoker [...] Denies sore (more content not included)... Normal [facility] Eosinophil percentageOrdered By: Saturnino Mix on 03-08-2025 Eosinophils/100 WBC (Bld) 2.1 % 0-5 [facility] Erythrocyte distribution wid th ratioOrdered By: Saturnino Mix on 03-08-2025 Erythrocyte distribution width (RBC) [Ratio] 12.4 % 11.6-14.6 [facility] Erythrocyte distribution wid th standard deviationOrdered By: Saturnino Mix on 03-08-2025 Erythrocyte distribution width (RBC) [Ratio] 45.2 fl High 35.1-43.9 [facility] Glomerular filtration rate ( GFR) estimation/1.73 sq m using serum, plasma, or whole bOrdered By: Saturnino Mix on 03-08-2025 GFR/1.73 sq M.predicted among non-blacks MDRD (S/P/Bld) [Vol rate/Area] 71 mL/min/{1.73_m2} >60 [facility] Comment on above: mL/min/1.73m2 CKD-EP I Creatinine Equation (2020) Hematocrit Auto (Bld) [Volum e fraction]Ordered By: Saturnino Mix on 03-08-2025 Hematocrit (Bld) [Volume fraction] 39.9 % 37-47 [facility] Hemoglobin measurementOrdere d By: Saturnino Mix on 03-08-2025 Hemoglobin (Bld) [Mass/Vol] 13.7 g/dL 12.0-15.0 [facility] Immature granulocytes/100 WB C Auto (Bld)Ordered By: Saturnino Mix on 03-08-2025 Immature granulocytes/100 WBC (Bld) 0.200 % 0.0-0.9 [facility] Comment on above: IG% - Immature Granu locytes (promyelocytes, myelocytes and metamyelocytes) > 1% indicates that a LEFT SHIFT is Present. Ketones Test strip Ql (U)Ord ered By: Saturnino Mix on 03-08-2025 Ketones Ql (U) Negative Negative [facility] - Chemistry and C hemistry - challengeOrdered By: Saturnino Mix on 03-08-2025 AST [Catalytic activity/Vol] 19 U/L <32 [facility] Lipaseon 03-08-2025 Lipase [Catalytic activity/Vol] 22 U/L Normal 13-75 [facility] Comment on above: Result Comment: Tye ku note: LIPASE revised reference range effective 22. New Lipase methodology. Expected to produce lower values than the previous assay method. NEW Reference Range: 13 - 75 U/L Performed By: #### L 100.0100, L501.2450, L500.4050 #### [facility] [address] [place], [address] Lipase measurementOrdered By : Saturnino Mix on 03-08-2025 Lipase [Catalytic activity/Vol] 22 U/L 13-75 [facility] Comment on above: Please note:LIPASE r evised reference range effective 22. New Lipase methodology. Expected to produce lower values than the previous assay method. NEW Reference Range: 13 - 75 U/L MCV (mean corpuscular volume ) determinationOrdered By: Saturnino Mix on 03-08-2025 MCV (RBC) [Entitic vol] 99.8 fL High 81-99 [facility] Mean corpuscular hemoglobin (MCH) determinationOrdered By: Saturnino Mix on 03-08-2025 MCH (RBC) [Entitic mass] 34.3 pg High 27.0-32.0 [facility] Mean corpuscular hemoglobin concentration (MCHC) determinationOrdered By: Saturnino Mix on 03-08-2025 MCHC (RBC) [Mass/Vol] 34.3 g/dL 32-36 [facility] Mean platelet volume determi nationOrdered By: Saturnino Mix on 03-08-2025 Platelet mean volume (Bld) [Entitic vol] 10.7 fL 6.2-12.0 [facility] Microscopic analysis of urin e for red blood cells (RBC)Ordered By: Saturnino Mix on 03-08-2025 Microscopic analysis of urine for red blood cells (RBC) 0 SEEN /hpf 0-5 [facility] Monocyte percentageOrdered B y: Saturnino Mix on 03-08-2025 Monocytes/100 WBC (Bld) 6.7 % 0-10 [facility] Mucus LM Ql (Urine sed)Order ed By: Saturnino Mix on 03-08-2025 Mucus Ql (Urine sed) 0 SEEN /hpf [facility] Neutrophil percentageOrdered By: Saturnino Mix on 03-08-2025 Neutrophils/100 WBC (Bld) 59.6 % 47-70 [facility] Nitrite Test strip Ql (U)Ord ered By: Saturnino Mix on 03-08-2025 Nitrite Ql (U) Negative Negative [facility] Nucleated red blood cell per centageOrdered By: Saturnino Mix on 03-08-2025 Nucleated RBC/100 WBC (Bld) [Ratio] 0 % 0-5 [facility] Platelet countOrdered By: Roberto Mix on 03-08-2025 Platelets (Bld) [#/Vol] 198 10*3/uL 150-450 [facility] Potassium measurement (mass/ volume)Ordered By: Saturnino Mix on 03-08-2025 Potassium (Unsp spec) [Mass/Vol] 3.8 mmol/L 3.3-5.1 [facility] Protein Test strip Ql (U)Ord ered By: Saturnino Mix on 03-08-2025 Protein Ql (U) Negative Negative [facility] RBC Auto (Bld) [#/Vol]Ordere d By: Saturnino Mix on 03-08-2025 RBC (Bld) [#/Vol] 4.00 10*6/uL Low 4.2-5.4 [facility] Serum creatinine measurement (mass/volume)Ordered By: Saturnino Mix on 03-08-2025 Creatinine [Mass/Vol] 0.94 mg/dL 0.70-1.20 [facility] Serum globulin measurementOr dered By: Saturnino Mix on 03-08-2025 Globulin (S) [Mass/Vol] 2.4 g/dL 2.2-4.2 [facility] Serum glucose measurement (m ass/volume)Ordered By: Saturnino Mix on 03-08-2025 Glucose [Mass/Vol] 94 mg/dL 70-99 [facility] Serum or plasma alanine vizcaino otransferase (ALT) measurementOrdered By: Saturnino Mix on 03-08-2025 ALT [Catalytic activity/Vol] 7 U/L <35 [facility] Serum or plasma albumin hortensia urement (mass/volume)Ordered By: Saturnino Mix on 03-08-2025 Albumin [Mass/Vol] 4.2 g/dL 3.5-5.0 [facility] Serum or plasma albumin/glob ulin mass ratioOrdered By: Saturnino Mix on 03-08-2025 Albumin/Globulin [Mass ratio] 1.7 {ratio} 0.9-2.4 [facility] Serum or plasma alkaline hubert sphatase measurementOrdered By: Saturnino Mix on 03-08-2025 ALP [Catalytic activity/Vol] 74 U/L 35-104 [facility] Serum or plasma calcium hortensia urement (mass/volume)Ordered By: Saturnino Mix on 03-08-2025 Calcium [Mass/Vol] 8.9 mg/dL 7.6-11.0 [facility] Serum or plasma urea nitroge n measurement (mass/volume)Ordered By: Saturnino Mix on 03-08-2025 Urea nitrogen [Mass/Vol] 9 mg/dL 4-19 [facility] Sodium levelOrdered By: Saturnino Mix on 03-08-2025 Sodium [Moles/Vol] 141 mmol/L 133-145 [facility] Squamous epithelial cells de tection in urine sediment by light microscopyOrdered By: Saturnino Mix on 03-08-2025 Epithelial cells.squamous LM Ql (Urine sed) 0-5 SEEN /hpf 5-10 [facility] Total proteinOrdered By: Arpita Mix on 03-08-2025 Protein [Mass/Vol] 6.6 g/dL 5.9-8.4 [facility] Urinalysis, Completeon 03-08 EPI,SQUAMOUS 0-5 SEEN Normal 5-10 [facility] Comment on above: Order Comment: CLEAN CATCH Performed By: #### L 400.0001 ####[facility] [address] [place], [address] BACTERIA 0 SEEN Normal None Seen [facility] Comment on above: Order Comment: CLEAN CATCH Performed By: #### L 400.0001 ####[facility] [address] [place], [address] Mucus Ql (Urine sed) 0 SEEN Normal [facility] Comment on above: Order Comment: CLEAN CATCH Performed By: #### L 400.0001 ####[facility] [address] [place], [address] RBC 0 SEEN Normal 0-5 [facility] Comment on above: Order Comment: CLEAN CATCH Performed By: #### L 400.0001 ####[facility] [address] [place], [place], [address] WBC 0 SEEN Normal 0-5 [facility] Comment on above: Order Comment: CLEAN CATCH Performed By: #### L 400.0001 ####[facility] [address] [place], [place], [address] Urine clarityOrdered By: Arpita Mix on 03-08-2025 Clarity (U) Clear Clear [facility] Urine color determinationOrd ered By: Saturnino Mix on 03-08-2025 Color (U) Yellow Yellow [facility] Urine glucose detectionOrder ed By: Saturnino Mix on 03-08-2025 Glucose Ql (U) Normal mg/dl Normal [facility] Urine leukocyte esterase det ection by dipstickOrdered By: Saturnino Mix on 03-08-2025 Leukocyte esterase Test strip Ql (U) Negative Negative [facility] Urine pHOrdered By: Saturnino huerta on 03-08-2025 pH (U) 7.0 [pH] 5.0 - 8.0 [facility] Urine sediment bacteria coun t by microscopy (number/high power field)Ordered By: Saturnino Mix on 03-08-2025 Bacteria LM.HPF (Urine sed) [#/Area] 0 /[HPF] None Seen [facility] Urine specific gravity measu rementOrdered By: Saturnino Mix on 03-08-2025 Specific gravity (U) [Rel density] 1.010 1.002-1.030 [facility] Urine urobilinogen measureme ntOrdered By: Saturnino Mix on 03-08-2025 Urobilinogen Ql (U) Normal mg/dl Normal [facility] White blood cell (WBC) count Ordered By: Saturnino Mix on 03-08-2025 WBC (Bld) [#/Vol] 5.8 10*3/uL 4.4-11.0 [facility] White blood cell countOrdere d By: Saturnino Mix on 03-08-2025 White blood cell count 0 SEEN /hpf 0-5 [facility] Internal Medicine Office Vis iton 02-15-2025 Internal Medicine Office Visit [facility] [address] [place] [address] [address] [place], [place] [address] OFFICE VISIT Date of Service: 02/15/25 MR#: [id number] Acct: [id number] Name: TRACY VAZQUEZ Rep #: [id number] : 1970 Provider: Dr. Fina ravi MD Age/Sex: 55/F Location[place] [facility] Status: Signed Intake Vital Signs 08/13/24 10:12 [...] M FU Chief Complaint: 6 M FU Special Procedure Tech Required: No Accompanied by: Self Is patient [...] states that she is still smoking regularly. [facility] Medical History (Updated 02/15/25 @ 12:31 [...] apartment current occupational status: employed current occupation: [employer] Smoking Status: Current every day smoker [...] Does not (more content not included)... Normal [facility] Office Visit Reporton 2024 Office Visit Report [facility] [address] [place] [address] OFFICE VISIT Date of Service: 02/07/25 MR#: [id number] Acct: [id number] Patient: TRACY VAZQUEZ Rep #: [id number] : 1970 Provider: KERRI Rice Age/Sex: 55/F Location[place] [facility] Status: Signed Intake Vital Signs 02/07/25 11:10 [...] Patrick Signature: Date (if applicable) CC: Normal [facility] Emergency Department Summary on 02-07-2025 Emergency Department Summary [facility] Medical Records Department [address] [place] [address] Emergency Department Summary 02/07/25 MR#: [id number] Acct: [id number] Name: TRACY VAZQUEZ Rep #: [id number] : 1970 55 From: Bozena MANNING PCP: Dr. Fina Iraheta MD Status:DEP ER Location: ED HPI History of Present Illness Chief Complaint: Head Injury Narrative Narrative: 55-year-old female presents after head injury that occurred on February 05 while working at [employer] (2 days ago). She was bending [...] neck pain or extremity pain or paresthesias. [facility] Medical History Breast mass in female [...] apartment current occupational status: employed current occupation: [employer] Smoking Status: Current every day smoker [...] No mi (more content not included)... [facility] Office Visit ([facility] ) ----- TRACY VAZQUEZ ([id number]) 1970 F Date Time Provider Department 12/28/24 12:30 PM CHANTEL SHAH [facility] During your visit today, we recorded the following information about you: Temperature Pulse Respiration Blood pressure 97.4 degrees 85/minute 18/minute 115/86 Weight 54.2 kg Chantel Shah APRN.FERTILIZING MACHINE OPERATOR 12/28/2024 1:50 PM Signed [facility] Subjective HPI HPI Tracy Vazquez [...] is clear HIV (human immunodeficiency virus infection) ([facility]) 2009 Dr. Mcdonald-ID Left posterior fascicular block [...] 21.85 kg/m? Physical Exam HENT: Mouth/Throat: Lips: [place]. Mouth: Mucous membranes are moist. Cardiovascular: Rate and Rhythm: Regular rhythm. Lymphadenopathy: Cervical: No cervical adenopathy. Right cervical: No superficial cervical adenopathy. Left cervical: No superficial cervical adenopathy. {ASSESSMENT/PLAN: 1. Mouth pain - ICD9: 528.9, ICD10: K13.79 Treat with augmentin for possible puncture F/u with pcp next week if s/s persist. - AMOXICILLIN 875 MG-POTASSIUM CLAVULANATE 125 MG TABLET Chantel Shah APRN.FERTILIZING MACHINE OPERATOR History and Record Review External record(s) reviewed: prior outpatient record. Disposition The patient was discharged. Procedures Allergies As of Date: 12/28/2024 Noted Allergy Reaction HOUSE DUST MITE 12/05/2020 14 - Other: See Comments Comments: Itchy eyes SINGULAIR ([place]AST) 06/07/2022 14 - Other: See Comments Comments: Had nightmares Date Reviewed: 0 (more content not included)... Normal [facility] 12-13-2024 [facility] Office Visit ([facility] ) ----- TRACY VAZQUEZ ([id number]) 1970 F Date Time Provider Department 12/13/24 10:00 AM MEAGAN RIBEIRO [facility] During your visit today, we recorded the following information about you: Temperature Pulse Respiration Blood pressure 97.5 degrees 99/minute 22/minute 108/79 Weight 54 kg Meagan Ribeiro, DARIUS.[facility] 12/13/2024 10:26 AM Signed [facility] [...] pk-yrs) Types: (more content not included)... Normal [facility]OVon 12-04-2024 [facility] Office Visit ([facility] ) ----- TRACY VAZQUEZ ([id number]) 1970 F Date Time Provider Department 12/04/24 8:45 AM LOUIE TYSON [facility] During your visit today, we recorded the [...] sinus pain. - Denies fever. - No wiba-mmd-ayeyyqk medications taken for symptoms. COPD: - History [...] is clear HIV (human immunodeficiency virus infection) ([facility]) 2009 Dr. Mcdonald-ID Left posterior fascicular block [...] Resp: Lungs (more content not included)... Normal [facility] Internal Medicine Office Vis iton 11-28-2024 Internal Medicine Office Visit [facility] [address] [place] [address] OFFICE VISIT Date of Service: 11/28/24 MR#: [id number] Acct: [id number] Name: TRACY VAZQUEZ Rep #: [id number] : 1970 Provider: KERRI Tidwell Age/Sex: 54/F [place] [facility] Status: Signed Intake Vital Signs 11/26/24 07:02 [...] Method room air Intake Visit Reasons: [facility] FU-LEAVE 60 MIN Special Procedure Tech Required: No Is patient in pain?: Yes [...] pain that she uses heating pad for. [facility] Medical History Breast mass in female [...] Diabetes Mental (more content not included)... Normal [facility] Absolute lymphocyte countOrd ered By: Saturnino Mix on 11-26-2024 Lymphocytes Auto (Unsp spec) [#/Vol] 2.03 10*3/uL 0.83-4.51 [facility] Absolute neutrophil countOrd ered By: Saturnino Mix on 11-26-2024 Neutrophils (Bld) [#/Vol] 3.4 10*3/uL 2.0-7.7 [facility] Anion gap in Serum or Plasma Ordered By: Saturnino Mix on 11-26-2024 Anion gap [Moles/Vol] 9 mmol/L 5-15 [facility] Automated blood erythrocyte countOrdered By: Saturnino Mix on 11-26-2024 RBC (Bld) [#/Vol] 3.94 10*6/uL Low 4.2-5.4 [facility] Comment on above: Performed By: #### L 500.2500, L100.0100 #### [facility] [address] [place], [address] Automated blood hematocrit ( percentage)Ordered By: Saturnino Mix on 11-26-2024 Hematocrit (Bld) [Volume fraction] 39.9 % Normal 37-47 [facility] Comment on above: Performed By: #### L 500.2500, L100.0100 #### [facility] [address] [place], [address] Automated lymphocyte count a s percentage of total leukocytesOrdered By: Saturnino Mix on 11-26-2024 Lymphocytes/100 WBC Auto (Unsp spec) 33.7 % 19-41 [facility] BUN/creatinine ratioOrdered By: Saturnino Mix on 11-26-2024 Urea nitrogen/Creatinine [Mass ratio] 11.4 mg/mg 10-20 [facility] Basic Metabolic Profile (BMP )on 11-26-2024 BUN/CRE 11.4 RATIO Normal - [facility] Comment on above: Performed By: #### L 500.2500, L100.0100 ####[facility] [address] [place], [address] Calcium [Mass/Vol] 9.0 mg/dL Normal 7.6-11.0 [facility] Comment on above: Performed By: #### L 500.2500, L100.0100 ####[facility] [address] [place], [address] Chloride [Moles/Vol] 107 mmol/L Normal 98-108 [facility] Comment on above: Performed By: #### L 500.2500, L100.0100 ####[facility] [address] [place], [address] CO2 [Moles/Vol] 24.4 mmol/L Normal 21.0-32.0 [facility] Comment on above: Performed By: #### L 500.2500, L100.0100 ####[facility] [address] [place], [address] Creatinine [Mass/Vol] 1.06 mg/dL Normal 0.70-1.20 [facility] Comment on above: Performed By: #### L 500.2500, L100.0100 ####[facility] [address] [place], [address] ECRCL 46.87 ml/min Low 50-250 [facility] Comment on above: Performed By: #### L 500.2500, L100.0100 ####[facility] [address] [place], [address] GAP 9 Normal 5-15 [facility] Comment on above: Performed By: #### L 500.2500, L100.0100 ####[facility] [address] [place], [address] GFR/1.73 sq M.predicted among non-blacks MDRD (S/P/Bld) [Vol rate/Area] 62 mL/min/{1.73_m2} Normal >60 [facility] Comment on above: Result Comment: mL/m in/1.73m2 CKD-EPI Creatinine Equation (2020) Performed By: #### L 500.2500, L100.0100 ####[facility] [address] [place], [address] Glucose [Mass/Vol] 89 mg/dL Normal 70-99 [facility] Comment on above: Performed By: #### L 500.2500, L100.0100 ####[facility] [address] [place], [address] Potassium [Moles/Vol] 3.9 mmol/L Normal 3.3-5.1 [facility] Comment on above: Performed By: #### L 500.2500, L100.0100 ####[facility] [address] [place], [address] Sodium [Moles/Vol] 140 mmol/L Normal 133-145 [facility] Comment on above: Performed By: #### L 500.2500, L100.0100 ####[facility] [address] [place], [address] Urea nitrogen [Mass/Vol] 12 mg/dL Normal 4-19 [facility] Comment on above: Performed By: #### L 500.2500, L100.0100 ####[facility] [address] [place], [address] Basophil percentageOrdered B y: Saturnino Mix on 11-26-2024 Basophils/100 WBC (Bld) 0.8 % Normal 0-1 [facility] Comment on above: Performed By: #### L 500.2500, L100.0100 #### [facility] [address] [place], [address] CBC W/Diff, Automatedon 05-1 -2024 Absolute Lymph 2.03 X10 3/uL Normal 0.83-4.51 [facility] Comment on above: Performed By: #### L 500.2500, L100.0100 #### [facility] [address] [place], [address] Absolute Neut 3.4 X10 3/uL Normal 2.0-7.7 [facility] Comment on above: Performed By: #### L 500.2500, L100.0100 #### [facility] [address] [place], [address] IG% 0.200 Normal 0.0-0.9 [facility] Comment on above: Result Comment: IG% - Immature Granulocytes (promyelocytes, myelocytes and metamyelocytes) > 1% indicates that a LEFT SHIFT is Present. Performed By: #### L 500.2500, L100.0100 #### [facility] Laboratory [address] [place], [address] Lymphocytes/100 WBC (Bld) 33.7 % Normal 19-41 [facility] Comment on above: Performed By: #### L 500.2500, L100.0100 #### [facility] Laboratory [address] [place], [address] Nucleated RBC (Bld) [#/Vol] 0 10*3/uL Normal 0-5 [facility] Comment on above: Performed By: #### L 500.2500, L100.0100 #### [facility] Laboratory [address] [place], [address] RDW SD 47.6 fl High 35.1-43.9 [facility] Comment on above: Performed By: #### L 500.2500, L100.0100 #### [facility] Laboratory [address] [place], [address] Carbon dioxide, total [Moles /volume] in Central venous bloodOrdered By: Saturnino Mix on 11-26-2024 CO2 [Moles/Vol] 24.4 mmol/L 21.0-32.0 [facility] Chest PA and Lateralon 11-26 Chest PA and Lateral [facility] Imaging Services [address] [place] [address] Chest PA and Lateral MR#: [id number] Acct: [id number] Name: TRACY VAZQUEZ Rep #: [id number] : 1970 F 54 From: Elier brumfield MD PCP: Dr. Fina Iraheta MD Status: REG ER Study: Chest PA and Lateral Date of Exam: 11/26/24 Exam# [id number] Ordering Dr: Saturnino Mix DO PROCEDURE: CHEST [...] No acute abnormality is seen. Reading Location: [id number] CC: Dr. Fina Iraheta MD; Dr. Saturnino Mix DO Computer Patternmaker: Signed Normal [facility] Chloride assayOrdered By: Roberto Mix on 11-26-2024 Chloride [Moles/Vol] 107 mmol/L 98-108 [facility] Emergency Department Summary on 11-26-2024 Emergency Department Summary [facility] Medical Records Department [address] [place] [address] Emergency Department Summary 11/26/24 MR#: [id number] Acct: [id number] Name: TRACY VAZQUEZ Rep #: [id number] : 1970 54 From: Saturnino Mix DO PCP: Dr. Fina Iraheta MD Status:DEP ER Location: ED [facility] History of Present Illness Chief Complaint: Shortness [...] Recent immobilization, Recent surgery or Recent travel [facility] Medical History Breast mass in female [...] apartment current occupational status: employed current occupation: [employer] Smoking Status: Current every day smoker [...] sore throat (more content not included)... Normal [facility] Eosinophil percentageOrdered By: Saturnino Mix on 11-26-2024 Eosinophils/100 WBC (Bld) 2.2 % Normal 0-5 [facility] Comment on above: Performed By: #### L 500.2500, L100.0100 #### [facility] Laboratory [address] [place], [address] Erythrocyte distribution wid th ratioOrdered By: Saturnino Mix on 11-26-2024 Erythrocyte distribution width (RBC) [Ratio] 12.6 % Normal 11.6-14.6 [facility] Comment on above: Performed By: #### L 500.2500, L100.0100 #### [facility] Laboratory [address] [place], [address] Erythrocyte distribution wid th standard deviationOrdered By: Saturnino Mix on 11-26-2024 Erythrocyte distribution width (RBC) [Ratio] 47.6 fl High 35.1-43.9 [facility] Glomerular filtration rate ( GFR) estimation/1.73 sq m using serum, plasma, or whole bOrdered By: Saturnino Mix on 11-26-2024 GFR/1.73 sq M.predicted among non-blacks MDRD (S/P/Bld) [Vol rate/Area] 62 mL/min/{1.73_m2} >60 [facility] Comment on above: mL/min/1.73m2 CKD-EP I Creatinine Equation (2020) Hemoglobin measurementOrdere d By: Saturnino Mix on 11-26-2024 Hemoglobin (Bld) [Mass/Vol] 13.7 g/dL Normal 12.0-15.0 [facility] Comment on above: Performed By: #### L 500.2500, L100.0100 #### [facility] Laboratory [address] [place], [address] Immature granulocytes/100 WB C Auto (Bld)Ordered By: Saturnino Mix on 11-26-2024 Immature granulocytes/100 WBC (Bld) 0.200 % 0.0-0.9 [facility] Comment on above: IG% - Immature Granu locytes (promyelocytes, myelocytes and metamyelocytes) > 1% indicates that a LEFT SHIFT is Present. Influenza virus A and B and SARS-CoV-2 (COVID-19) and Respiratory syncytial virus RNAOrdered By: Saturnino Mix on 11-26-2024 SARS-CoV-2 (COVID-19) RNA TESHA+probe Ql (Unsp spec) [facility] M100.678on 11-26-2024 M100.678 Pending SARS-CoV-2 (COVID 19) Negative INFLUENZA A Negative INFLUENZA B Negative RSV PCR Negative Normal [facility] Comment on above: Performed By: #### M 100.678 ####[facility] [address] [place], [address] MCV (mean corpuscular volume ) determinationOrdered By: Saturnino Mix on 11-26-2024 MCV (RBC) [Entitic vol] 101.3 fL High 81-99 [facility] Comment on above: Performed By: #### L 500.2500, L100.0100 #### [facility] Laboratory [address] [place], [address] Mean corpuscular hemoglobin (MCH) determinationOrdered By: Saturnino Mix on 11-26-2024 MCH (RBC) [Entitic mass] 34.8 pg High 27.0-32.0 [facility] Comment on above: Performed By: #### L 500.2500, L100.0100 #### [facility] Laboratory [address] [place], [address] Mean corpuscular hemoglobin concentration (MCHC) determinationOrdered By: Saturnino Mix on 11-26-2024 MCHC (RBC) [Mass/Vol] 34.3 g/dL Normal 32-36 [facility] Comment on above: Performed By: #### L 500.2500, L100.0100 #### [facility] Laboratory [address] [place], [address] Mean platelet volume determi nationOrdered By: Saturnino Mix on 11-26-2024 Platelet mean volume (Bld) [Entitic vol] 11.0 fL Normal 6.2-12.0 [facility] Comment on above: Performed By: #### L 500.2500, L100.0100 #### [facility] Laboratory [address] [place], [address] Monocyte percentageOrdered B y: Saturnino Mix on 11-26-2024 Monocytes/100 WBC (Bld) 6.3 % Normal 0-10 [facility] Comment on above: Performed By: #### L 500.2500, L100.0100 #### [facility] Laboratory [address] [place], [address] Neutrophil percentageOrdered By: Saturnino Mix on 11-26-2024 Neutrophils/100 WBC (Bld) 56.8 % Normal 47-70 [facility] Comment on above: Performed By: #### L 500.2500, L100.0100 #### [facility] Laboratory [address] [place], [address] Nucleated red blood cell per centageOrdered By: Saturnino Mix on 11-26-2024 Nucleated RBC/100 WBC (Bld) [Ratio] 0 % 0-5 [facility] Platelet countOrdered By: Roberto Mix on 11-26-2024 Platelets (Bld) [#/Vol] 207 10*3/uL Normal 150-450 [facility] Comment on above: Performed By: #### L 500.2500, L100.0100 #### [facility] Laboratory [address] [place], [address] Potassium measurement (mass/ volume)Ordered By: Saturnino Mix on 11-26-2024 Potassium (Unsp spec) [Mass/Vol] 3.9 mmol/L 3.3-5.1 [facility] Serum creatinine measurement (mass/volume)Ordered By: Saturnino Mxi on 11-26-2024 Creatinine [Mass/Vol] 1.06 mg/dL 0.70-1.20 [facility] Serum glucose measurement (m ass/volume)Ordered By: Saturnino Mix on 11-26-2024 Glucose [Mass/Vol] 89 mg/dL 70-99 [facility] Serum or plasma calcium hortensia urement (mass/volume)Ordered By: Saturnino Mix on 11-26-2024 Calcium [Mass/Vol] 9.0 mg/dL 7.6-11.0 [facility] Serum or plasma urea nitroge n measurement (mass/volume)Ordered By: Saturnino Mix on 11-26-2024 Urea nitrogen [Mass/Vol] 12 mg/dL 4-19 [facility] Sodium levelOrdered By: Saturnino Mix on 11-26-2024 Sodium [Moles/Vol] 140 mmol/L 133-145 [facility] White blood cell (WBC) count Ordered By: Saturnino Mix on 11-26-2024 WBC (Bld) [#/Vol] 6.0 10*3/uL Normal 4.4-11.0 [facility] Comment on above: Performed By: #### L 500.2500, L100.0100 #### [facility] Laboratory [facility] [place], [address] CNOVon 11-07-2024 CNOV Office Visit ([facility] ) ----- TRACY VAZQUEZ ([id number]) 1970 F Date Time Provider Department 11/07/24 10:30 AM JULIETA POOLE During your visit today, we recorded the following information about you: Temperature Pulse Respiration Blood pressure 98.2 degrees 82/minute 16/minute 110/64 Weight 54.9 kg Julieta Poole APRN.FERTILIZING MACHINE OPERATOR 11/07/2024 10:55 AM Signed This note was created using Ask Ziggy. Subjective Tracy Vazquez is a 54 year [...] 1 capsule (more content not included)... Normal [facility] Breast Limited Unilateralon 11-05-2024 Breast Limited Unilateral [facility] Imaging Services [address] [place] [address] Breast Limited Unilateral MR#: [id number] Acct: [id number] Name: TRACY VAZQUEZ Rep #: [id number] : 1970 F 54 From: Dianne Grady PCP: Dr. Fina Iraheta MD Status: REG CLI Study: Breast Limited Unilateral Date of Exam: Exam# [id number] Ordering Dr: Fina Iraheta MD PROCEDURE: BREAST [...] Birads: BI-RADS 3: PROBABLY BENIGN. Reading Location: [id number] CC: Dr. Fina Iraheta MD Computer Patternmaker: Signed Normal [facility] DIAG MAMM W/CAD, BILATon DIAG MAMM W/CAD, BILAT [facility] Imaging Services [address] [place], [place] [address] DIAG MAMM W/CAD, BILAT MR#: [id number] Acct: [id number] Name: TRACY VAZQUEZ Rep #: [id number] : 1970 F 54 From: Dianne Grady PCP: Dr. Fina Iraheta MD Status: REG CLI Study: DIAG MAMM W/CAD, BILAT Date of Exam: 11/05/24 Exam# [id number] Ordering Dr: Fina Iraheta MD EXAM: DIAG [...] be mailed to the patient. Reading Location: [id number] CC: Dr. Fina Iraheta MD Computer Patternmaker: Signed Normal [facility] Bananaon 10-13-2024 BANANA <0.[address] [facility] Comment on above: Result Comment: Perf ormed at: [address] [id number] Materials Associate: Trevin Anguiano MD, Phone: [phone] Performed By: #### L 5500.0550, L5530.0089 ####[facility] [address] [facility] [id number] L5500.0550on 10-13-2024 BEEF <0.[address] [facility] Comment on above: Performed By: #### L 5500.0550, L5530.0089 ####[facility] [address] [place], [address] CHOCOLATE <0.[address] [facility] Comment on above: Performed By: #### L 5500.0550, L5530.0089 ####[facility] [address] [place], [address] CODFISH <0.[address] [facility] Comment on above: Performed By: #### L 5500.0550, L5530.0089 ####[facility] [address] [place], [place], [id number] COMMENT Comment Normal . [facility] Comment on above: Result Comment: Jonny sherman of Specific IgE Class Description of Class ----- < 0.10 0 Negative 0.10 - 0.31 0/I Equivocal/Low 0.32 - 0.55 I Low 0.56 - 1.40 II Moderate 1.41 - 3.90 III High 3.91 - 19.00 IV Very High 19.01 - 100.00 V Very High >100.00 Very High Performed By: #### L 5500.0550, L5530.0089 ####[facility] [address] [place], [address] CORN <0.[address] [facility] Comment on above: Performed By: #### L 5500.0550, L5530.0089 ####[facility] [address] [place], [address] EGG, WHOLE <0.[address] [facility] Comment on above: Performed By: #### L 5500.0550, L5530.0089 ####[facility] [address] [place], [address] MILK (COW) <0.[address] [facility] Comment on above: Performed By: #### L 5500.0550, L5530.0089 ####[facility] [address] [place], [address] MUSSELS <0.[address] [facility] Comment on above: Performed By: #### L 5500.0550, L5530.0089 ####[facility] [address] [place], [address] PEANUT <0.[address] [facility] Comment on above: Performed By: #### L 5500.0550, L5530.0089 ####[facility] [address] [place], [address] PORK <0.[address] [facility] Comment on above: Performed By: #### L 5500.0550, L5530.0089 ####[facility] [address] [place], [address] SALMON <0.[address] [facility] Comment on above: Performed By: #### L 5500.0550, L5530.0089 ####[facility] [address] [place], [address] SHRIMP <0.[address] [facility] Comment on above: Performed By: #### L 5500.0550, L5530.0089 ####[facility] [address] [place], [address] SOYBEAN <0.[address] [facility] Comment on above: Performed By: #### L 5500.0550, L5530.0089 ####[facility] [address] [place], [address] TUNA <0.[address] Class [address] [facility] Comment on above: Performed By: #### L 5500.0550, L5530.0089 ####[facility] [address] [place], [address] WHEAT <0.[address] [facility] Comment on above: Performed By: #### L 5500.0550, L5530.0089 ####[facility] [address] [place], [address] Internal Medicine Office Vis daryl 10-04-2024 Internal Medicine Office Visit [facility] [address] [place] [address] [place] [address] OFFICE VISIT Date of Service: 10/04/24 MR#: [id number] Acct: [id number] Name: TRACY VAZQUEZ Rep #: [id number] : 1970 Provider: KERRI Tidwell Age/Sex: 54/F [...] FU FROM BONE DENSITY-OK PER DR IRAHETA Special Procedure Tech Required: No Is patient in pain?: No [...] apartment current occupational status: employed current occupation: [employer] Smoking Status: Current every day smoker [...] or ma (more content not included)... Normal [facility] Laboratory - Miscellaneous t estsOrdered By: Lucas Marrufo on 10-04-2024 Service comment (Unsp spec) [Interp] Comment . [facility] Comment on above: Levels of Specific I [...] IgE Qn (S) <0.10 kU/L Class 0 [facility] Comment on above: Performed at: [address] [id number] Director: Trevin Anguiano MD, Phone: [phone] Serum beef IgE antibody assa y (units/volume)Ordered By: Lucas Marrufo on 10-04-2024 Beef IgE Qn (S) <0.10 kU/L Class 0 [facility] Beef IgE Qn (S) Not Reportable [facility] Serum codfish IgE antibody a ssay (units/volume)Ordered By: Lucas Marrufo on 10-04-2024 Codfish IgE Qn (S) <0.10 kU/L Class 0 [facility] Serum corn IgE antibody assa y (units/volume)Ordered By: Lucas Marrufo on 10-04-2024 [place] IgE Qn (S) <0.10 kU/L Class 0 [facility] Serum cow milk IgE antibody assay (units/volume)Ordered By: Lucas Marrufo on 10-04-2024 Cow milk IgE Qn (S) <0.10 kU/L Class 0 [facility] Serum peanut IgE antibody as say (units/volume)Ordered By: Lucas Marrufo on 10-04-2024 Peanut IgE Qn (S) <0.10 kU/L Class 0 [facility] Serum pork IgE antibody assa y (units/volume)Ordered By: Lucas Marrufo on 10-04-2024 Pork IgE Qn (S) <0.10 kU/L Class 0 [facility] Serum salmon IgE antibody as say (units/volume)Ordered By: Lucas Marrufo on 10-04-2024 [place] IgE Qn (S) <0.10 kU/L Class [address] [facility] Serum soybean IgE antibody a ssay (units/volume)Ordered By: Lucas Marrufo on 10-04-2024 Soybean IgE Qn (S) <0.10 kU/L Class 0 [facility] Serum tuna IgE antibody assa y (units/volume)Ordered By: Lucas Marrufo on 10-04-2024 Tuna IgE Qn (S) <0.10 kU/L Class [address] [facility] Serum wheat IgE antibody ass ay (units/volume)Ordered By: Lucas Marrufo on 10-04-2024 Wheat IgE Qn (S) <0.10 kU/L Class 0 [facility] Serum whole egg IgE antibody assay (units/volume)Ordered By: Lucas Marrufo on 10-04-2024 Whole Egg IgE Qn (S) <0.10 kU/L Class 0 [facility] CNOVon 09-27-2024 [facility] ----- TRACY VAZQUEZ ([id number]) 1970 F Date Time Provider Department 09/27/24 12:45 PM LOUIE TYSON [facility] During your visit today, we recorded the [...] is clear HIV (human immunodeficiency virus infection) ([facility]) 2009 Dr. Mcdonald-ID Left posterior fascicular block [...] 22.17 k (more content not included)... Normal [facility] HIV Viral Load Quanton 09-27 HIV-1 RNA, PCR < [address] [facility] Comment on above: Result Comment: HIV- 1 RNA not detected The reportable range for this assay is 20 to 10,000,000 copies HIV-1 RNA/mL. Performed By: #### L 100.0500, L500.2500, L3890.4000, L3890.0200 ####[facility] [address] [place], [place], [id number] log10 HIV-1 RNA TNP Normal . [facility] Comment on above: Result Comment: Resu lt Units: ytc31xgly/mL Unable to calculate result since non-numeric result obtained for component test. Performed at: [address] [id number] Materials Associate: Trevin Anguiano MD, Phone: [phone] Performed By: #### L 100.0500, L500.2500, L3890.4000, L3890.0200 ####[facility] [address] [place], [place], [address] CD4, T Lymph [place] 09-26-2024 % CD4 POS.LYMPH 47.1 Normal 30.8-58.5 [facility] Comment on above: Performed By: #### L 100.0500, L500.2500, L3890.4000, L3890.0200 ####[facility] [address] [place], [place], [id number] ABSOLUTE CD4 1083 /uL Normal 359-1519 [facility] Comment on above: Performed By: #### L 100.0500, L500.2500, L3890.4000, L3890.0200 ####[facility] [address] [place], [address] Basophils [address] [facility] Comment on above: Performed By: #### L 100.0500, L500.2500, L3890.4000, L3890.0200 ####[facility] [address] [place], [address] Basos Absolute 0.1 x10E3/uL Normal 0.0-0.2 [facility] Comment on above: Performed By: #### L 100.0500, L500.2500, L3890.4000, L3890.0200 ####[facility] [address] [place], [address] Eos Absolute 0.2 x10E3/uL Normal 0.0-0.4 [facility] Comment on above: Performed By: #### L 100.0500, L500.2500, L3890.4000, L3890.0200 ####[facility] [address] [place], [address] Eosinophils [address] [facility] Comment on above: Performed By: #### L 100.0500, L500.2500, L3890.4000, L3890.0200 ####[facility] [address] [place], [address] Erythrocyte distribution width (RBC) [Ratio] 12.4 % Normal 11.7-15.4 [facility] Comment on above: Performed By: #### L 100.0500, L500.2500, L3890.4000, L3890.0200 ####[facility] [address] [place], [address] Hematocrit (Bld) [Volume fraction] 44.0 % Normal 34.0-46.6 [facility] Comment on above: Performed By: #### L 100.0500, L500.2500, L3890.4000, L3890.0200 ####[facility] [address] [place], [place], [address] Heme Comment TNP Normal . [facility] Comment on above: Performed By: #### L 100.0500, L500.2500, L3890.4000, L3890.0200 ####[facility] [address] [place], [address] Hemoglobin (Bld) [Mass/Vol] 14.4 g/dL Normal 11.1-15.9 [facility] Comment on above: Performed By: #### L 100.0500, L500.2500, L3890.4000, L3890.0200 ####[facility] [address] [place], [address] Imm Grans Abs 0 x10E3/uL Normal 0.0-0.1 [facility] Comment on above: Result Comment: Perf ormed at: - [facility] [address] [id number] Materials Associate: Leonard Chester PhD, Phone: [phone] Performed By: #### L 100.0500, L500.2500, L3890.4000, L3890.0200 ####[facility] [address] [place], [address] Immature Cells TNP Normal . [facility] Comment on above: Performed By: #### L 100.0500, L500.2500, L3890.4000, L3890.0200 ####[facility] [address] [place], [place], [id number] Immature Grans [address] [facility] Comment on above: Performed By: #### L 100.0500, L500.2500, L3890.4000, L3890.0200 ####[facility] [address] [place], [address] Lymphocytes [address] [facility] Comment on above: Performed By: #### L 100.0500, L500.2500, L3890.4000, L3890.0200 ####[facility] [address] [place], [address] Lymphocytes (Bld) [#/Vol] 2.3 10*3/uL Normal 0.7-3.1 [facility] Comment on above: Performed By: #### L 100.0500, L500.2500, L3890.4000, L3890.0200 ####[facility] [address] [place], [address] MCH (RBC) [Entitic mass] 33.9 pg High 26.6-33.0 [facility] Comment on above: Performed By: #### L 100.0500, L500.2500, L3890.4000, L3890.0200 ####[facility] [address] [place], [address] MCHC (RBC) [Mass/Vol] 32.7 g/dL Normal 31.5-35.7 [facility] Comment on above: Performed By: #### L 100.0500, L500.2500, L3890.4000, L3890.0200 ####[facility] [address] [place], [address] MCV (RBC) [Entitic vol] 104 fL High 79-97 [facility] Comment on above: Performed By: #### L 100.0500, L500.2500, L3890.4000, L3890.0200 ####[facility] [address] [place], [address] Monocytes 6 [address] Not Estab[address] [facility] Comment on above: Performed By: #### L 100.0500, L500.2500, L3890.4000, L3890.0200 ####[facility] [address] [place], [address] Monos Absolute 0.5 x10E3/uL Normal 0.1-0.9 [facility] Comment on above: Performed By: #### L 100.0500, L500.2500, L3890.4000, L3890.0200 ####[facility] [address] [place], [address] Neutro Absolute 5.0 x10E3/uL Normal 1.4-7.0 [facility] Comment on above: Performed By: #### L 100.0500, L500.2500, L3890.4000, L3890.0200 ####[facility] [address] [place], [address] Neutrophils 62 [address] Not Estab. [facility] Comment on above: Performed By: #### L 100.0500, L500.2500, L3890.4000, L3890.0200 ####[facility] [address] [place], [address] NRBC Count TNP Normal . [facility] Comment on above: Performed By: #### L 100.0500, L500.2500, L3890.4000, L3890.0200 ####[facility] [address] [place], [address] Platelets (Bld) [#/Vol] 231 10*3/uL Normal 150-450 [facility] Comment on above: Performed By: #### L 100.0500, L500.2500, L3890.4000, L3890.0200 ####[facility] [address] [place], [address] RBC (Bld) [#/Vol] 4.25 10*6/uL Normal 3.77-5.28 [facility] Comment on above: Performed By: #### L 100.0500, L500.2500, L3890.4000, L3890.0200 ####[facility] [address] [place], [place], [address] WBC (Bld) [#/Vol] 8.1 10*3/uL Normal 3.4-10.8 [facility] Comment on above: Performed By: #### L 100.0500, L500.2500, L3890.4000, L3890.0200 ####[facility] [address] [place], [address] Absolute CD4 countOrdered By : Epi Mcdonald on 09-25-2024 CD3+CD4+ (T4 helper) cells (Bld) [#/Vol] 1083 /uL 359-7359 [facility] Absolute immature granulocyt e countOrdered By: Epi Mcdonald on 09-25-2024 Immature granulocytes (Bld) [#/Vol] 0 10*3/uL 0.0-0.1 [facility] Comment on above: Performed at: [place] [id number] Director: Leonard Chester PhD, Phone: [phone] Absolute lymphocyte countOrd ered By: Epi Mcdonald on 09-25-2024 Lymphocytes Auto (Unsp spec) [#/Vol] 2.3 10*3/uL 0.7-3.1 [facility] Absolute monocyte countOrder ed By: Epi Mcdonald on 09-25-2024 Monocytes (Bld) [#/Vol] 0.5 10*3/uL 0.1-0.9 [facility] Absolute neutrophil countOrd ered By: Epi Mcdonald on 09-25-2024 Neutrophils (Bld) [#/Vol] 5.0 10*3/uL 1.4-7.0 [facility] Anion gap in Serum or Plasma Ordered By: Epi Mcdonald on 09-25-2024 Anion gap [Moles/Vol] 11 mmol/L 5-15 [facility] BUN/creatinine ratioOrdered By: Epi Mcdonald on 09-25-2024 Urea nitrogen/Creatinine [Mass ratio] 10.4 mg/mg 10- [facility] Basic Metabolic Profile (BMP )on 09-25-2024 BUN/CRE 10.4 RATIO Normal -20 [facility] Comment on above: Performed By: #### L 100.0500, L500.2500, L3890.4000, L3890.0200 ####[facility] [address] [place], [address] Calcium [Mass/Vol] 9.4 mg/dL Normal 7.6-11.0 [facility] Comment on above: Performed By: #### L 100.0500, L500.2500, L3890.4000, L3890.0200 ####[facility] [address] [place], [address] Chloride [Moles/Vol] 105 mmol/L Normal 98-108 [facility] Comment on above: Performed By: #### L 100.0500, L500.2500, L3890.4000, L3890.0200 ####[facility] [address] [place], [address] CO2 [Moles/Vol] 23.2 mmol/L Normal 21.0-32.0 [facility] Comment on above: Performed By: #### L 100.0500, L500.2500, L3890.4000, L3890.0200 ####[facility] [address] [place], [address] Creatinine [Mass/Vol] 1.05 mg/dL Normal 0.70-1.20 [facility] Comment on above: Performed By: #### L 100.0500, L500.2500, L3890.4000, L3890.0200 ####[facility] [address] [place], [address] GAP 11 Normal 5-15 [facility] Comment on above: Performed By: #### L 100.0500, L500.2500, L3890.4000, L3890.0200 ####[facility] [address] [place], [address] GFR/1.73 sq M.predicted among non-blacks MDRD (S/P/Bld) [Vol rate/Area] 62 mL/min/{1.73_m2} Normal >60 [facility] Comment on above: Result Comment: mL/m in/1.73m2 CKD-EPI Creatinine Equation (2020) Performed By: #### L 100.0500, L500.2500, L3890.4000, L3890.0200 ####[facility] [address] [place], [address] Glucose [Mass/Vol] 83 mg/dL Normal 70-99 [facility] Comment on above: Performed By: #### L 100.0500, L500.2500, L3890.4000, L3890.0200 ####[facility] [address] [place], [address] Potassium [Moles/Vol] 4.4 mmol/L Normal 3.3-5.1 [facility] Comment on above: Performed By: #### L 100.0500, L500.2500, L3890.4000, L3890.0200 ####[facility] [address] [place], [address] Sodium [Moles/Vol] 139 mmol/L Normal 133-145 [facility] Comment on above: Performed By: #### L 100.0500, L500.2500, L3890.4000, L3890.0200 ####[facility] [address] [place], [address] Urea nitrogen [Mass/Vol] 11 mg/dL Normal 4-19 [facility] Comment on above: Performed By: #### L 100.0500, L500.2500, L3890.4000, L3890.0200 ####[facility] [address] [place], [address] Basophils/100 WBC Auto (Bld) Ordered By: Epi Mcdonald on 09-25-2024 Basophils/100 WBC (Bld) 1 % Not Estab. [facility] Blood basophils count (numbe r/volume)Ordered By: Epi Mcdonald on 09-25-2024 Basophils (Bld) [#/Vol] 0.1 10*3/uL 0.0-0.2 [facility] Blood eosinophils count (num tristin/volume)Ordered By: Epi Mcdonald on 09-25-2024 Eosinophils (Bld) [#/Vol] 0.2 10*3/uL 0.0-0.4 [facility] Blood hematocrit (volume fra ction)Ordered By: Epi Mcdonald on 09-25-2024 Hematocrit (Bld) [Volume fraction] 44.0 % 34.0-46.6 [facility] Blood immature cells/100 wes kocytesOrdered By: Epi Mcdonald on 09-25-2024 Immature cells/100 WBC (Bld) TNP [facility] Comment on above: Test not performed Blood immature granulocytes/ 100 leukocytesOrdered By: Epi Mcdonald on 09-25-2024 Immature granulocytes/100 WBC (Bld) 0 % Not Estab. [facility] Blood platelets count (numbe r/volume)Ordered By: Epi Mcdonald on 09-25-2024 Platelets (Bld) [#/Vol] 231 10*3/uL 150-450 [facility] Bone density reportOrdered B y: Elier Meyer on 09-25-2024 Study report Skeletal system DXA [facility] Imaging Services [address] [place], [place] [id number] Dexa Bone Density Study MR#: [id number] Acct: [id number] Name: TRACY VAZQUEZ Rep #: [id number] : 1970 F 54 From: Peter Meyer MD PCP: Dr. Fina Iraheta MD Status: R EG CLI Study:Dexa Bone Density Study Date of Exam: 09/25/24 Exam# [id number] Ordering Dr: Betty Iraheta MD PROCEDURE: DEXA [...] with a high fracture risk. Reading Location: [place] [address] CC: Dr. Fina Iraheta MD ~ Computer Patternmaker: Signed [facility] Brain/Head without Contrasto n 09-25-2024 Brain/Head without Contrast [facility] Imaging Services [address] [place] [address] 754341 Brain/Head without Contrast MR#: [id number] Acct: [id number] Name: TRACY VAZQUEZ Rep #: [id number] : 1970 F 54 From: Epi Grady PCP: Dr. Fina Iraheta MD Status: REG Study: Brain/Head without Contrast Date of Exam: 09/15 08/11 Exam# [id number] Ordering Dr: Joselito Nichols DO EXAM: CT [...] Fina Iraheta MD; Dr. Joselito Nichols DO Computer Patternmaker: Signed Normal [facility] CBC-Complete Blood Cnt No Di ffon 09-25-2024 Erythrocyte distribution width (RBC) [Ratio] 12.7 % Normal 11.6-14.6 [facility] Comment on above: Performed By: #### L 100.0500, L500.2500, L3890.4000, L3890.0200 ####[facility] [address] [place], [address] Hematocrit (Bld) [Volume fraction] 41.7 % Normal 37-47 [facility] Comment on above: Performed By: #### L 100.0500, L500.2500, L3890.4000, L3890.0200 ####[facility] [address] [place], [address] Hemoglobin (Bld) [Mass/Vol] 14.1 g/dL Normal 12.0-15.0 [facility] Comment on above: Performed By: #### L 100.0500, L500.2500, L3890.4000, L3890.0200 ####[facility] [address] [place], [address] MCH (RBC) [Entitic mass] 34.1 pg High 27.0-32.0 [facility] Comment on above: Performed By: #### L 100.0500, L500.2500, L3890.4000, L3890.0200 ####[facility] [address] [place], [address] MCHC (RBC) [Mass/Vol] 33.8 g/dL Normal 32-36 [facility] Comment on above: Performed By: #### L 100.0500, L500.2500, L3890.4000, L3890.0200 ####[facility] [address] [place], [address] MCV (RBC) [Entitic vol] 100.7 fL High 81-99 [facility] Comment on above: Performed By: #### L 100.0500, L500.2500, L3890.4000, L3890.0200 ####[facility] [address] [place], [address] Platelet mean volume (Bld) [Entitic vol] 10.9 fL Normal 6.2-12.0 [facility] Comment on above: Performed By: #### L 100.0500, L500.2500, L3890.4000, L3890.0200 ####[facility] [address] [place], [address] Platelets (Bld) [#/Vol] 222 10*3/uL Normal 150-450 [facility] Comment on above: Performed By: #### L 100.0500, L500.2500, L3890.4000, L3890.0200 ####[facility] [address] [place], [address] RBC (Bld) [#/Vol] 4.14 10*6/uL Low 4.2-5.4 [facility] Comment on above: Performed By: #### L 100.0500, L500.2500, L3890.4000, L3890.0200 ####[facility] [address] [place], [address] RDW SD 47.7 fl High 35.1-43.9 [facility] Comment on above: Performed By: #### L 100.0500, L500.2500, L3890.4000, L3890.0200 ####[facility] [address] [place], [address] WBC (Bld) [#/Vol] 8.0 10*3/uL Normal 4.4-11.0 [facility] Comment on above: Performed By: #### L 100.0500, L500.2500, L3890.4000, L3890.0200 ####[facility] [address] [place], [address] CD3+CD4+ (T4 helper) cells ( Bld) [#/Vol]Ordered By: Epi Mcdonald on 09-25-2024 Absolute CD4 Count 1083 /uL 359-1519 [facility] CD3+CD4+ (T4 helper) cells/1 00 cells (Unsp spec)Ordered By: Epi Mcdonald on 09-25-2024 Percent CD4 Cells 47.1 % 30.8-58.5 [facility] Carbon dioxide, total [Moles /volume] in Central venous bloodOrdered By: Epi Mcdonald on 09-25-2024 CO2 [Moles/Vol] 23.2 mmol/L 21.0-32.0 [facility] Chloride assayOrdered By: Sue Mcdonald on 09-25-2024 Chloride [Moles/Vol] 105 mmol/L 98-108 [facility] Determination of erythrocyte mean corpuscular volume (MCV)Ordered By: Epi Mcdonald on 09-25-2024 MCV (RBC) [Entitic vol] 104 fL High 79-97 [facility] Dexa Bone Density Studyon Dexa Bone Density Study [facility] Imaging Services [address] [place] [address] Dexa Bone Density Study MR#: [id number] Acct: [id number] Name: TRACY VAZQUEZ Rep #: [id number] : 1970 F 54 From: Elier brumfield MD PCP: Dr. Fina rIaheta MD Status: REG CLI Study: Dexa Bone Density Study Date of Exam: 09/25/24 Exam# [id number] Ordering Dr: Fina Iraheta MD PROCEDURE: DEXA [...] with a high fracture risk. Reading Location: [facility]- CC: Dr. Fina Iraheta MD Computer Patternmaker: Signed Normal [facility] Emergency Department Summary on 09-25-2024 Emergency Department Summary [facility] Medical Records Department [address] [place] [address] Emergency Department Summary 09/25/24 MR#: [id number] Acct: [id number] Name: TRACY VAZQUEZ Rep #: [id number] : 1970 54 From: Joselito Rush PCP: [...] nausea or vomiting. Prior similar symptoms: Yes [facility] Medical History Osteoporosis Macrocytosis Pain, dental [...] Verified 09/25/24 16:41 of breath montelukast (From [employer]) Allergy NIGHTMARES Verified 09/25/24 16:41 Family History Mother Alcoholism Arthritis Cancer LUNG Osteoporosis Father Alcoholism Angina at rest Cancer LUNG Diabetes Hypertension Sister Alcoholism Blood clot in leg Diabetes Mental disorder Suicide attempt Aunt Breast cancer Surgical History H/O foot surgery H/O breast augmentation Social History housing: apartment current occupational status: employed current occupation: [employer] Smoking Status: Current every day smoker [...] 09/25/24 21:49 (more content not included)... Normal [facility] Eosinophils/100 WBC Auto (Bl d)Ordered By: Epi Mcdonald on 09-25-2024 Eosinophils/100 WBC (Bld) 2 % Not Estab. [facility] Erythrocyte distribution wid th ratioOrdered By: Epi Mcdonald on 09-25-2024 Erythrocyte distribution width (RBC) [Ratio] 12.7 % 11.6-14.6 [facility] Erythrocyte distribution width (RBC) [Ratio] 12.4 % 11.7-15.4 [facility] Erythrocyte distribution wid th standard deviationOrdered By: Epi Mcdonald on 09-25-2024 Erythrocyte distribution width (RBC) [Entitic vol] 47.7 fL High 35.1-43.9 [facility] Erythrocyte distribution width (RBC) [Ratio] 47.7 fl High 35.1-43.9 [facility] GFR/1.73 sq M.predicted james g non-blacks MDRD (S/P/Bld) [Vol rate/Area]Ordered By: Epi Mcdonald on 09-25-2024 Estimated GFR (MDRD) Non-Af Amer [address] >60 [facility] Comment on above: mL/min/1.73m2 CKD-EP I Creatinine Equation (2020) Glomerular filtration rate ( GFR) estimation/1.73 sq m using serum, plasma, or whole bOrdered By: Epi Mcdonald on 09-25-2024 GFR/1.73 sq M.predicted among non-blacks MDRD (S/P/Bld) [Vol rate/Area] 62 mL/min/{1.73_m2} >60 [facility] Comment on above: mL/min/1.73m2 CKD-EP I Creatinine Equation (2020) HIV 1 RNA TESHA+probe [Log #/V ol]Ordered By: Epi Mcdonald on 09-25-2024 HIV-1 RNA (PCR) log10 [address] [facility] Comment on above: Test not performedRe sult Units: [id number]/mLUnable to calculate result since non-numeric resultobtained for component test.Performed at: - [facility] [id number] Director: Trevin Anguiano MD, Phone: [phone] Hematocrit Auto (Bld) [Volum e fraction]Ordered By: Epi Mcdonald on 09-25-2024 Hematocrit (Bld) [Volume fraction] 41.7 % 37-47 [facility] Hemoglobin measurementOrdere d By: Epi Mcdonald on 09-25-2024 Hemoglobin (Bld) [Mass/Vol] 14.1 g/dL 12.0-15.0 [facility] Immature cells/100 WBC (Bld) Ordered By: Epi Mcdonald on 09-25-2024 Immature Blood Cells [facility] Comment on above: Test not performed Interpretation of morphologi c examination of blood (narrative result)Ordered By: Epi Mcdonald on 09-25-2024 Morphology Elias (Bld) [Interp] [facility] Comment on above: Test not performed L503.0106on 09-25-2024 Cobalamin (Vitamin B12) [Mass/Vol] 280 pg/mL Normal 180-914 [facility] Comment on above: Performed By: #### L 503.0106 ####[facility] [address] [place], [address] Laboratory - Hematology and Cell countsOrdered By: Epi Mcdonald on 09-25-2024 MCH (RBC) [Entitic mass] 33.9 pg High 26.6-33.0 [facility] Lymphocytes Auto (Unsp spec) [#/Vol]Ordered By: Epi Mcdonald on 09-25-2024 Lymphocytes (Bld) [#/Vol] 2.3 10*3/uL 0.7-3.1 [facility] Lymphocytes/100 WBC Auto (Bl d)Ordered By: Epi Mcdonald on 09-25-2024 Lymphocytes/100 WBC (Bld) 29 % Not Estab. [facility] MCHC Auto (RBC) [Mass/Vol]Or dered By: Epi Mcdonald on 09-25-2024 MCHC (RBC) [Mass/Vol] 32.7 g/dL 31.5-35.7 [facility] MCV (mean corpuscular volume ) determinationOrdered By: Epi Mcdonald on 09-25-2024 MCV (RBC) [Entitic vol] 100.7 fL High 81-99 [facility] Mean corpuscular hemoglobin (MCH) determinationOrdered By: Epi Mcdonald on 09-25-2024 MCH (RBC) [Entitic mass] 34.1 pg High 27.0-32.0 [facility] Mean corpuscular hemoglobin concentration (MCHC) determinationOrdered By: Epi Mcdonald on 09-25-2024 MCHC (RBC) [Mass/Vol] 33.8 g/dL 32-36 [facility] Mean platelet volume determi nationOrdered By: Epi Mcdonald on 09-25-2024 Platelet mean volume (Bld) [Entitic vol] 10.9 fL 6.2-12.0 [facility] Monocyte detectionOrdered By : Epi Mcdonald on 09-25-2024 Monocytes/100 WBC (Bld) 6 % Not Estab. [facility] Morphology Elias (Bld) [Interp ]Ordered By: Epi Mcdonald on 09-25-2024 Hematology Comments [facility] Comment on above: Test not performed Neutrophil countOrdered By: Epi Mcdonald on 09-25-2024 Neutrophils/100 WBC (Bld) 62 % [facility] Nucleated RBC/100 WBC Auto ( Bld) [Ratio]Ordered By: Epi Mcdonald on 09-25-2024 Nucleated RBC/100 WBC (Bld) [Ratio] [facility] Comment on above: Test not performed Nucleated Red Blood Cells [facility] Comment on above: Test not performed Percent of cells positive fo r CD4 antigenOrdered By: Epi Mcdonald on 09-25-2024 CD3+CD4+ (T4 helper) cells/100 cells (Unsp spec) 47.1 % 30.8-58.5 [facility] Plasma HIV 1 RNA viral load by probe and target amplification method (log number/voluOrdered By: Epi Mcdonald on 09-25-2024 HIV 1 RNA TESHA+probe [Log #/Vol] [facility] Comment on above: Test not performedRe sult Units: [id number]/mLUnable to calculate result since non-numeric resultobtained for component test.Performed at: - [facility] [id number] Director: Trevin Anguiano MD, Phone: [phone] Platelet countOrdered By: Sue Mcdonald on 09-25-2024 Platelets (Bld) [#/Vol] 222 10*3/uL 150-450 [facility] Potassium (Unsp spec) [Mass/ Vol]Ordered By: Epi Mcdonald on 09-25-2024 Potassium [Moles/Vol] 4.4 mmol/L 3.3-5.1 [facility] Potassium measurement (mass/ volume)Ordered By: Epi Mcdonald on 09-25-2024 Potassium (Unsp spec) [Mass/Vol] 4.4 mmol/L 3.3-5.1 [facility] Quantitative HIV-1 RNA measu rement by PCROrdered By: Epi Mcdonald on 09-25-2024 HIV-1 RNA Ultraquantitative (PCR) < 20 copies/mL . [facility] Comment on above: HIV-1 RNA not detect edThe reportable range for this assay is 20 to 10,000,000copies HIV-1 RNA/mL. RBC Auto (Bld) [#/Vol]Ordere d By: Epi Mcdonald on 09-25-2024 RBC (Bld) [#/Vol] 4.14 10*6/uL Low 4.2-5.4 [facility] RBC (Bld) [#/Vol] 4.25 10*6/uL 3.77-5.28 [facility] Serum creatinine measurement (mass/volume)Ordered By: Epi Mcdonald on 09-25-2024 Creatinine [Mass/Vol] 1.05 mg/dL 0.70-1.20 [facility] Serum glucose measurement (m ass/volume)Ordered By: Epi Mcdonald on 09-25-2024 Glucose [Mass/Vol] 83 mg/dL 70-99 [facility] Serum or plasma calcium hortensia urement (mass/volume)Ordered By: Epi Mcdonald on 09-25-2024 Calcium [Mass/Vol] 9.4 mg/dL 7.6-11.0 [facility] Serum or plasma urea nitroge n measurement (mass/volume)Ordered By: Epi Mcdonald on 09-25-2024 Urea nitrogen [Mass/Vol] 11 mg/dL 4-19 [facility] Sodium levelOrdered By: Chester Mcdonald on 09-25-2024 Sodium [Moles/Vol] 139 mmol/L 133-145 [facility] Vitamin B12 ser/plasOrdered By: Fina Iraheta on 09-25-2024 Cobalamin (Vitamin B12) [Mass/Vol] 280 pg/mL 180-914 [facility] WBC countOrdered By: Epi Mcdonald on 09-25-2024 WBC (Bld) [#/Vol] 8.1 10*3/uL 3.4-10.8 [facility] White blood cell (WBC) count Ordered By: Epi Mcdonald on 09-25-2024 WBC (Bld) [#/Vol] 8.0 10*3/uL 4.4-11.0 [facility] Whole blood hemoglobin measu rement (mass/volume)Ordered By: Epi Mcdonald on 09-25-2024 Hemoglobin (Bld) [Mass/Vol] 14.4 g/dL 11.1-15.9 [facility] Internal Medicine Office Vis iton 09-14-2024 Internal Medicine Office Visit [facility] [address] [place] [address] [place] [address] OFFICE VISIT Date of Service: 09/14/24 MR#: [id number] Acct: [id number] Name: TRACY VAZQUEZ Rep #: [id number] : 1970 Provider: Dr. Fina ravi MD Age/Sex: 54/F [place] [facility] Status: Signed Intake Vital Signs 09/11/24 11:47 [...] past year?: Yes (reports 3 mos ago) [facility] Medical History (Updated 09/14/24 @ 12:[address] Fina rIaheta MD) Pain, dental Tinnitus Acute pain of [...] apartment current occupational status: employed current occupation: [employer] Smoking Status: Current every day smoker [...] fatigue, fever(s), (more content not included)... Normal [facility] L/S Spine Min 4 Viewson 08-19 L/S Spine Min 4 Views [facility] Imaging Services [address] [place], [place] [id number] L/S Spine Min 4 Views MR#: [id number] Acct: [id number] Name: TRACY VAZQUEZ Rep #: [id number] : 1970 F 54 From: Geoffrey Narayan MD PCP: Dr. Fina Iraheta MD Status: REG CLI Study: L/S Spine Min 4 Views Date of Exam: 09/14/24 Exam# [id number] Ordering Dr: Fina Iraheta MD PROCEDURE: L/S [...] Location: [place] CC: Dr. Fina Iraheta MD Computer Patternmaker: Signed Normal [facility] BUN/creatinine ratioOrdered By: Fina Iraheta on 09-12-2024 Urea nitrogen/Creatinine [Mass ratio] 13.1 mg/mg 10- [facility] Basic Metabolic Profile (BMP )on 09-12-2024 Anion gap [Moles/Vol] 11 mmol/L Normal 5-15 [facility] Comment on above: Performed By: #### L 500.4050, L501.2450, L100.0100 #### [facility] Laboratory [address] [place], [address] BUN/CRE 13.1 RATIO Normal - [facility] Comment on above: Performed By: #### L 500.4050, L501.2450, L100.0100 #### [facility] [address] [place], [address] Calcium [Mass/Vol] 9.4 mg/dL Normal 7.6-11.0 [facility] Comment on above: Performed By: #### L 500.4050, L501.2450, L100.0100 #### [facility] [address] [place], [address] Chloride [Moles/Vol] 103 mmol/L Normal 96-108 [facility] Comment on above: Performed By: #### L 500.4050, L501.2450, L100.0100 #### [facility] [address] [place], [address] CO2 [Moles/Vol] 25.3 mmol/L Normal 22.0-29.0 [facility] Comment on above: Performed By: #### L 500.4050, L501.2450, L100.0100 #### [facility] Laboratory [address] [place], [address] Creatinine [Mass/Vol] 1.2 mg/dL High 0.6-1.0 [facility] Comment on above: Performed By: #### L 500.4050, L501.2450, L100.0100 #### [facility] Laboratory [address] [place], [address] GFR/1.73 sq M.predicted among non-blacks MDRD (S/P/Bld) [Vol rate/Area] 55 mL/min/{1.73_m2} Low >60 [facility] Comment on above: Result Comment: mL/m in/1.73m2 CKD-EPI Creatinine Equation (2020) Performed By: #### L 500.4050, L501.2450, L100.0100 #### [facility] Laboratory [address] [place], [address] Glucose [Mass/Vol] 96 mg/dL Normal 70-99 [facility] Comment on above: Performed By: #### L 500.4050, L501.2450, L100.0100 #### [facility] Laboratory [address] [place], [address] Potassium [Moles/Vol] 4.4 mmol/L Normal 3.3-5.1 [facility] Comment on above: Performed By: #### L 500.4050, L501.2450, L100.0100 #### [facility] [address] [place], [address] Sodium [Moles/Vol] 140 mmol/L Normal 133-145 [facility] Comment on above: Performed By: #### L 500.4050, L501.2450, L100.0100 #### [facility] [address] [place], [address] Urea nitrogen [Mass/Vol] 15 mg/dL Normal 4-19 [facility] Comment on above: Performed By: #### L 500.4050, L501.2450, L100.0100 #### [facility] [address] [place], [address] Carbon dioxide measurementOr dered By: Fina Iraheta on 09-12-2024 CO2 [Moles/Vol] 25.3 mmol/L 22.0-29.0 [facility] Chloride measurementOrdered By: Fina Iraheta on 09-12-2024 Chloride [Moles/Vol] 103 mmol/L 96-108 [facility] Creatinine [Moles/Vol]Ordere d By: Fina Iraheta on 09-12-2024 Creatinine [Mass/Vol] 1.2 mg/dL High 0.6-1.0 [facility] GFR/1.73 sq M.predicted james g non-blacks MDRD (S/P/Bld) [Vol rate/Area]Ordered By: Fina Iraheta on 09-12-2024 Estimated GFR (MDRD) Non-Af Amer 55 Low >60 [facility] Comment on above: mL/min/1.73m2 CKD-EP I Creatinine Equation (2020) Glomerular filtration rate ( GFR) estimation/1.73 sq m using serum, plasma, or whole bOrdered By: Fina Iraheta on 09-12-2024 GFR/1.73 sq M.predicted among non-blacks MDRD (S/P/Bld) [Vol rate/Area] 55 mL/min/{1.73_m2} Low >60 [facility] Comment on above: mL/min/1.73m2 CKD-EP I Creatinine Equation (2020) Serum glucose measurement (m ass/volume)Ordered By: Fina Iraheta on 09-12-2024 Glucose [Mass/Vol] 96 mg/dL 70-99 [facility] Serum or plasma anion gap de termination (moles/volume)Ordered By: Fina Iraheta on 09-12-2024 Anion gap [Moles/Vol] 11 mmol/L 5-15 [facility] Serum or plasma calcium hortensia urement (mass/volume)Ordered By: Fina Iraheta on 09-12-2024 Calcium [Mass/Vol] 9.4 mg/dL 7.6-11.0 [facility] Serum or plasma creatinine m easurement (moles/volume)Ordered By: Fina Iraheta on 09-12-2024 Creatinine [Moles/Vol] 1.2 mg/dL High 0.6-1.0 [facility] Serum or plasma potassium me asurementOrdered By: Fina Iraheta on 09-12-2024 Potassium [Moles/Vol] 4.4 mmol/L 3.3-5.1 [facility] Serum or plasma sodium measu rement (moles/volume)Ordered By: Fina Iraheta on 09-12-2024 Sodium [Moles/Vol] 140 mmol/L 133-145 [facility] Serum or plasma urea nitroge n measurement (mass/volume)Ordered By: Fina Iraheta on 09-12-2024 Urea nitrogen [Mass/Vol] 15 mg/dL 4-19 [facility] Low Dose CT Lung Screeningon 09-11-[address] Lung Screening [facility] Imaging Services [address] [place] [address] Lung Screening MR#: [id number] Acct: [id number] Name: TRACY VAZQUEZ Rep #: [id number] : 1970 F 54 From: Elier brumfield MD PCP: Dr. Fina Iraheta MD Status: REG CLI Study: Low Dose CT Lung Screening Date of Exam: 09/11 Exam# [id number] Ordering Dr: Namrata Vazquez [employer] -C PROCEDURE: LOW DOSE CT LUNG SCREENING [...] Categories. Addit (more content not included)... Normal [facility] Oncology Visit Reporton 08-19 Oncology Visit Report [facility] [place] [address] OFFICE VISIT Date of Service: 09/11/24 1140 MR#: [id number] Acct: [id number] Name: TRACY VAZQUEZ Rep #: [id number] : 1970 From: Namrata Vazquez NP [employer] -C Age/Sex: 54/F [facility] [facility] Status: Signed HPI HPI Reviewed [...] Dust allergy (more content not included)... Normal [facility] CNPNon 08-22-2024 CNPN Telephone (PULMWS) ----- TRACY VAZQUEZ ([id number]) 1970 F Date Time Provider Department 08/22/24 [...] ear wax removed. EDWARD Magallon Christine M, BICYCLE COURIER.FERTILIZING MACHINE OPERATOR 08/22/2024 12:47 PM Signed Called to discuss [...] Has chest CT scheduled this month at [place] through their lung cancer screening program. Ayad Metcalf, BICYCLE COURIER.Maria Elena Huang RN 08/22/2024 3:49 PM Signed [...] Date Reviewed: 08/17/2024 Reviewed by: Julieta Poole APRN.FERTILIZING MACHINE OPERATOR - Fully Assessed Reason for Visit: Patient Question [1477] Primary Visit Diagnosis:Pulmonary emphysema, unspecified emphysema type (HCC) [J43.9] Order(s):SPIROMETRY WITH DILATOR IF OBSTRUCTED [9609918] Order #: [id number]: 1 FUTURE LUNG VOLUMES [0964245] Order #: [id number]: 1 FUTURE Prescriptions as of 08/22/2024 - [...] by AYAD METCALF on 08/22/24 [facility] 08-20-2024 CNPN Telephone (LEXAWS) ----- TRACY VAZQUEZ ([id number]) 1970 F Date Time Provider Department 08/20/24 AYAD METCALF During your visit today, we recorded the following information about you: Stephenie Bardales MA 08/20/2024 1:33 PM Signed Patient requesting a phone to review lab results. SOPHIA Robles Amy M, MA 08/21/2024 9:10 AM Signed Patient called again trying to obtain lab results. She can be reached back at [phone]. Stephenie Bardales MA 08/21/2024 11:12 AM Signed Patient phoned to reports symptoms increased today. She is taking mucinex and drinking a lot of water. She is vomiting mucus at this time.She is asking if she should start steroids? SOPHIA Robles Christine M, BICYCLE COURIER.FERTILIZING MACHINE OPERATOR 08/21/2024 11:14 AM Signed Called to discuss [...] Date Reviewed: 08/17/2024 Reviewed by: Julieta Poole APRN.FERTILIZING MACHINE OPERATOR - Fully Assessed Reason for Visit: Results [...] by CLICK, AYAD Cartagena on 08/21/24 Normal [facility] CNOVon 08-17-2024 CNOV Office Visit (UCWSTR ) ----- TRACY VAZQUEZ ([id number]) 1970 F Date Time Provider Department 08/17/24 12:30 PM JULIETA POOLE [facility] During your visit today, we recorded the following information about you: Temperature Pulse Respiration Blood pressure 97 degrees 86/minute 20/minute 114/84 Weight 56 kg Julieta Poole APRN.FERTILIZING MACHINE OPERATOR 08/17/2024 12:30 PM Signed This note was created using [email or web address]. Subjective Tracy Vzaquez is a 54 year old female. HPI [...] Date Reviewed: 08/17/2024 Reviewed by: Julieta Poole APRN.FERTILIZING MACHINE OPERATOR - Fully Assessed Reason for Visit: Ear [...] Encounter Status:Closed by JULIETA POOLE on 08/17/24 [facility] 08-16 Vietnamese house dust mite IgE Qn (S) 0.49 kU/l High <0.35 [facility] Comment on above: Order Comment: Speci men Type: BLOOD SPECIMENOrdering Facility: [facility] Address: [address] [place] [address] [place] [address] Performed By: #### G RTLKS ####[facility] LABCLIA [id number] [place] [address] [place] Vietnamese house dust mite IgE RAST class (S) Class 1 Abnormal Class 0 [facility] Comment on above: Order Comment: Speci men Type: BLOOD SPECIMENOrdering Facility: [facility] Address: [address] [place] [address] Performed By: #### G RTLKS ####[facility] LABCLIA [id number] [place] [address] [place] Cat dander IgE Qn (S) <0.35 Normal <0.35 [facility] Comment on above: Order Comment: Speci men Type: BLOOD SPECIMENOrdering Facility: [facility] Address: [address] [place] [address] Performed By: #### G RTLKS ####[facility] LABCLIA [id number] [place] [address] [place] Cat dander IgE RAST class (S) Class 0 Normal Class 0 [facility] Comment on above: Order Comment: Speci men Type: BLOOD SPECIMENOrdering Facility: [facility] Address: [address] [place] [address] Performed By: #### G RTLKS ####[facility] LABCLIA [id number] [place] [address] [place] Common Ragweed IgE Qn (S) <0.35 Normal <0.35 [facility] Comment on above: Order Comment: Speci men Type: BLOOD SPECIMENOrdering Facility: [facility] Address: [address] [place] [address] Performed By: #### G RTLKS ####[facility]CLIA [id number] [place] [address] [place] Common Ragweed IgE RAST class (S) Class 0 Normal Class 0 [facility] Comment on above: Order Comment: Speci men Type: BLOOD SPECIMENOrdering Facility: [facility] Address: [address] [place] [address] Performed By: #### G RTLKS ####[facility]CLIA [id number] [place] [address] [place] Dog dander IgE Qn (S) <0.35 Normal <0.35 [facility] Comment on above: Order Comment: Speci men Type: BLOOD SPECIMENOrdering Facility: [facility] Address: [address] [place] [address] Performed By: #### G RTLKS ####[facility]CLIA [id number] [place] [address] [place] Dog dander IgE RAST class (S) Class 0 Normal Class 0 [facility] Comment on above: Order Comment: Speci men Type: BLOOD SPECIMENOrdering Facility: [facility] Address: [address] [place] [address] Performed By: #### G RTLKS ####[facility]CLIA [id number] [place] [address] [place] Goosefoot IgE Qn (S) <0.35 Normal <0.35 [facility] Comment on above: Order Comment: Speci men Type: BLOOD SPECIMENOrdering Facility: [facility] Address: [address] [place] [address] Performed By: #### G RTLKS ####[facility] LABCLIA [id number] [address] [place] Goosefoot IgE RAST class (S) Class 0 Normal Class 0 [facility] Comment on above: Order Comment: Speci men Type: BLOOD SPECIMENOrdering Facility: [facility] Address: [address] [place] [address] Performed By: #### G RTLKS ####[facility]CLIA [id number] [place] [address] [place] Kentucky blue grass IgE Qn (S) <0.35 Normal <0.35 [facility] Comment on above: Order Comment: Speci men Type: BLOOD SPECIMENOrdering Facility: [facility] Address: [address] [place] [address] Performed By: #### G RTLKS ####[facility] LABCLIA [id number] [place] [address] [place] blue grass IgE RAST class (S) Class 0 Normal Class 0 [facility] Comment on above: Order Comment: Speci men Type: BLOOD SPECIMENOrdering Facility: [facility] Address: [address] [place] [address] Performed By: #### G RTLKS ####[facility] LABCLIA [id number] [place] [address] [place] Santiago IgE Qn (S) <0.35 Normal <0.35 [facility] Comment on above: Order Comment: Speci men Type: BLOOD SPECIMENOrdering Facility: [facility] Address: [address] [place] [address] Performed By: #### G RTLKS ####[facility] LABCLIA [id number] [place] [address] [place] Santiago IgE RAST class (S) Class 0 Normal Class 0 [facility] Comment on above: Order Comment: Speci men Type: BLOOD SPECIMENOrdering Facility: [facility] Address: [address] [place], [place] [id number] Performed By: #### G RTLKS ####[facility] LABCLIA [id number] [place] [address] [place] Dallas IgE Qn (S) <0.35 Normal <0.35 [facility] Comment on above: Order Comment: Speci men Type: BLOOD SPECIMENOrdering Facility: [facility] Address: [address] [place] [address] Performed By: #### G RTLKS ####[facility] LABCLIA [id number] [place] [address] [place] Dallas IgE RAST class (S) Class 0 Normal Class 0 [facility] Comment on above: Order Comment: Speci men Type: BLOOD SPECIMENOrdering Facility: [facility] Address: [address] [place] [address] Performed By: #### G RTLKS ####[facility] LABCLIA [id number] [place] [address] [place] ALGN MOLDS GROUPon 5 A. alternata IgE Qn (S) <0.35 Normal <0.35 [facility] Comment on above: Order Comment: Speci men Type: BLOOD SPECIMENOrdering Facility: [facility] Address: [address] [place] [address] Performed By: #### M OLDS ####[facility] LABCLIA [id number] [place] [address] [place] Performed By: #### G RTLKS ####[facility]CLIA [id number] [place] [address] [place] A. alternata IgE RAST class (S) Class 0 Normal Class 0 [facility] Comment on above: Order Comment: Speci men Type: BLOOD SPECIMENOrdering Facility: [facility] Address: [address] [place] [address] Performed By: #### M OLDS ####[facility] LABCLIA [id number] [place] [address] [place] Performed By: #### G RTLKS ####[facility] LABCLIA [id number] [place] [id number] [place] A. fumigatus IgE Qn (S) <0.35 Normal <0.35 [facility] Comment on above: Order Comment: Speci men Type: BLOOD SPECIMENOrdering Facility: [facility] Address: [address] [place] [address] Performed By: #### M EMRE ####[facility] LABCLIA [id number] [place] [address] [place] A. fumigatus IgE RAST class (S) Class 0 Normal Class 0 [facility] Comment on above: Order Comment: Speci men Type: BLOOD SPECIMENOrdering Facility: [facility] Address: [address] [place] [address] Performed By: #### M EMRE ####[facility] LABCLIA [id number] [place] [address] [place] C. albicans IgE Qn (S) <0.35 Normal <0.35 [facility] Comment on above: Order Comment: Speci men Type: BLOOD SPECIMENOrdering Facility: [facility] Address: [address] [place] [address] Performed By: #### M EMRE ####[facility] LABCLIA [id number] [place] [address] [place] C. albicans IgE RAST class (S) Class 0 Normal Class 0 [facility] Comment on above: Order Comment: Speci men Type: BLOOD SPECIMENOrdering Facility: [facility] Address: [address] [place] [address] Performed By: #### M EMRE ####[facility] LABCLIA [id number] [place] [address] [place] C. herbarum IgE Qn (S) <0.35 Normal <0.35 [facility] Comment on above: Order Comment: Speci men Type: BLOOD SPECIMENOrdering Facility: [facility] Address: [address] [place] [address] Performed By: #### M EMRE ####[facility] LABCLIA [id number] [address] Performed By: #### G RTLKS ####[facility]CLIA [id number] [address] [place] C. herbarum IgE RAST class (S) Class 0 Normal Class 0 [facility] Comment on above: Order Comment: Speci men Type: BLOOD SPECIMENOrdering Facility: [facility] Address: [address] [place] [address] Performed By: #### Mitzi ANDREA ####[facility] LABCLIA [id number] [address] Performed By: #### G RTLKS ####[facility] LABIA [id number] [address] [place] Mucor racemosus IgE Qn (S) <0.35 Normal <0.35 [facility] Comment on above: Order Comment: Speci men Type: BLOOD SPECIMENOrdering Facility: [facility] Address: [address] [place] [address] Performed By: ###Edward ANDREA ####[facility] LABIA [id number] [address] [place] Mucor racemosus IgE RAST class (S) Class 0 Normal Class 0 [facility] Comment on above: Order Comment: Speci men Type: BLOOD SPECIMENOrdering Facility: [facility] Address: [address] [place] [address] Performed By: #### Mitzi ANDREA ####[facility] [id number] [address] [place] Mauricio 08-16-2024 ANALILIAN Telephone (MELISAWS) ----- TRACY VAZQUEZ ([id number]) 1970 F Date Time Provider Department 08/16/24 [...] Encounter Status:Closed by MARIANNA [facility]OMEO [facility] TR[facility] VA[facility]QUEZ ([id number]) 1970 F Date Time Provider Department 08/16/24 [facility] During your visit today, we recorded the [...] Status:Closed by ENRIQUE PACHECO on 10/29/24 Normal [facility] IgE SerPl-aCncon 08-16-2024 IgE Qn 72.9 kU/l Normal <114.0 [facility] Comment on above: Order Comment: Speci men Type: BLOOD SPECIMENOrdering Facility: [facility] Address: [address] [place] [address] Performed By: #### 1 9113-0 ####[facility] LABCLIA [id number] [address] STATES OF [facility] Absolute lymphocyte countOrd ered By: Fina Iraheta on 08-13-2024 Lymphocytes Auto (Unsp spec) [#/Vol] 2.19 10*3/uL 0.83-4.51 [facility] Absolute neutrophil countOrd ered By: Fina Iraheta on 08-13-2024 Neutrophils (Bld) [#/Vol] 3.4 10*3/uL 2.0-7.7 [facility] Albumin to globulin ratioOrd ered By: Fina Iraheta on 08-13-2024 Albumin/Globulin [Mass ratio] 0.9 {ratio} 0.9-2.4 [facility] Automated lymphocyte count a s percentage of total leukocytesOrdered By: Fina Iraheta on 08-13-2024 Lymphocytes/100 WBC Auto (Unsp spec) 35.7 % 19-41 [facility] Basophil percentageOrdered B y: Fina Iraheta on 08-13-2024 Basophils/100 WBC (Bld) 0.8 % 0-1 [facility] Bilirubin, totalOrdered By: Fina Iraheta on 08-13-2024 Bilirubin [Mass/Vol] 0.30 mg/dL 0.20-1.00 [facility] Comment on above: For patients on eltr ombopag therapy, use of Dimension [place] TBIL is not recommended. Blood urea nitrogen (BUN)/cr eatinine ratioOrdered By: Fina Iraheta on 08-13-2024 Urea nitrogen/Creatinine [Mass ratio] 12.1 mg/mg 10-20 [facility] CBC W/Diff, Automatedon 07-19 Absolute Lymph 2.19 X10 3/uL Normal 0.83-4.51 [facility] Comment on above: Performed By: #### L 500.4100, L100.0100, L500.4050 ####[facility] [address] [place], [address] Absolute Neut 3.4 X10 3/uL Normal 2.0-7.7 [facility] Comment on above: Performed By: #### L 500.4100, L100.0100, L500.4050 ####[facility] [address] [place], [address] Basophils/100 WBC (Bld) 0.8 % Normal 0-1 [facility] Comment on above: Performed By: #### L 500.4100, L100.0100, L500.4050 ####[facility] [address] [place], [address] Eosinophils/100 WBC (Bld) 1.5 % Normal 0-5 [facility] Comment on above: Performed By: #### L 500.4100, L100.0100, L500.4050 ####[facility] [address] [place], [address] Erythrocyte distribution width (RBC) [Ratio] 12.4 % Normal 11.6-14.6 [facility] Comment on above: Performed By: #### L 500.4100, L100.0100, L500.4050 ####[facility] [address] [place], [address] Hematocrit (Bld) [Volume fraction] 43.7 % Normal 37-47 [facility] Comment on above: Performed By: #### L 500.4100, L100.0100, L500.4050 ####[facility] [address] [place], [address] Hemoglobin (Bld) [Mass/Vol] 14.2 g/dL Normal 12.0-15.0 [facility] Comment on above: Performed By: #### L 500.4100, L100.0100, L500.4050 ####[facility] [address] [place], [address] IG% 0.300 Normal 0.0-0.9 [facility] Comment on above: Result Comment: IG% - Immature Granulocytes (promyelocytes, myelocytes and metamyelocytes) > 1% indicates that a LEFT SHIFT is Present. Performed By: #### L 500.4100, L100.0100, L500.4050 ####[facility] [address] [place], [address] Lymphocytes/100 WBC (Bld) 35.7 % Normal 19-41 [facility] Comment on above: Performed By: #### L 500.4100, L100.0100, L500.4050 ####[facility] [address] [place], [address] MCH (RBC) [Entitic mass] 33.6 pg High 27.0-32.0 [facility] Comment on above: Performed By: #### L 500.4100, L100.0100, L500.4050 ####[facility] [address] [place], [address] MCHC (RBC) [Mass/Vol] 32.5 g/dL Normal 32-36 [facility] Comment on above: Performed By: #### L 500.4100, L100.0100, L500.4050 ####[facility] [address] [place], [address] MCV (RBC) [Entitic vol] 103.3 fL High 81-99 [facility] Comment on above: Performed By: #### L 500.4100, L100.0100, L500.4050 ####[facility] [address] [place], [address] Monocytes/100 WBC (Bld) 6.0 % Normal 0-10 [facility] Comment on above: Performed By: #### L 500.4100, L100.0100, L500.4050 ####[facility] [address] [place], [address] Neutrophils/100 WBC (Bld) 55.7 % Normal 47-70 [facility] Comment on above: Performed By: #### L 500.4100, L100.0100, L500.4050 ####[facility] [address] [place], [address] Nucleated RBC (Bld) [#/Vol] 0 10*3/uL Normal 0-5 [facility] Comment on above: Performed By: #### L 500.4100, L100.0100, L500.4050 ####[facility] [address] [place], [address] Platelet mean volume (Bld) [Entitic vol] 11.2 fL Normal 6.2-12.0 [facility] Comment on above: Performed By: #### L 500.4100, L100.0100, L500.4050 ####[facility] [address] [place], [address] Platelets (Bld) [#/Vol] 250 10*3/uL Normal 150-450 [facility] Comment on above: Performed By: #### L 500.4100, L100.0100, L500.4050 ####[facility] [address] [place], [address] RBC (Bld) [#/Vol] 4.23 10*6/uL Normal 4.2-5.4 [facility] Comment on above: Performed By: #### L 500.4100, L100.0100, L500.4050 ####[facility] [address] [place], [address] RDW SD 47.4 fl High 35.1-43.9 [facility] Comment on above: Performed By: #### L 500.4100, L100.0100, L500.4050 ####[facility] [address] [place], [address] WBC (Bld) [#/Vol] 6.1 10*3/uL Normal 4.4-11.0 [facility] Comment on above: Performed By: #### L 500.4100, L100.0100, L500.4050 ####[facility] [address] [place], [address] Carbon dioxide measurementOr dered By: Fina Iraheta on 08-13-2024 CO2 [Moles/Vol] 28.0 mmol/L 21.0-32.0 [facility] Chloride measurementOrdered By: Fina Iraheta on 08-13-2024 Chloride [Moles/Vol] 108 mmol/L High 98-107 [facility] Comprehensive Metabolic Prof ilon 08-13-2024 Albumin [Mass/Vol] 3.7 g/dL Normal 3.2-5.0 [facility] Comment on above: Performed By: #### L 500.4100, L100.0100, L500.4050 ####[facility] [address] [place], [address] Albumin/Globulin [Mass ratio] 0.9 {ratio} Normal 0.9-2.4 [facility] Comment on above: Performed By: #### L 500.4100, L100.0100, L500.4050 ####[facility] [address] [place], [address] ALK P 92 U/L Normal 45-117 [facility] Comment on above: Performed By: #### L 500.4100, L100.0100, L500.4050 ####[facility] [address] [place], [address] ALT [Catalytic activity/Vol] 13 U/L Normal 13-56 [facility] Comment on above: Performed By: #### L 500.4100, L100.0100, L500.4050 ####[facility] [address] [place], [address] AST [Catalytic activity/Vol] 10 U/L Low 15-37 [facility] Comment on above: Performed By: #### L 500.4100, L100.0100, L500.4050 ####[facility] [address] [place], [address] Bilirubin [Mass/Vol] 0.30 mg/dL Normal 0.20-1.00 [facility] Comment on above: Result Comment: For patients on eltrombopag therapy, use of Dimension Hornitos TBIL is not recommended. Performed By: #### L 500.4100, L100.0100, L500.4050 ####[facility] [address] [place], [address] BUN/CRE 12.1 RATIO Normal 10-20 [facility] Comment on above: Performed By: #### L 500.4100, L100.0100, L500.4050 ####[facility] [address] [place], [address] CA,Total 9.5 mg/dL Normal 8.5-10.1 [facility] Comment on above: Performed By: #### L 500.4100, L100.0100, L500.4050 ####[facility] [address] [place], [address] Chloride [Moles/Vol] 108 mmol/L High 98-107 [facility] Comment on above: Performed By: #### L 500.4100, L100.0100, L500.4050 ####[facility] [address] [place], [address] CO2 [Moles/Vol] 28.0 mmol/L Normal 21.0-32.0 [facility] Comment on above: Performed By: #### L 500.4100, L100.0100, L500.4050 ####[facility] [address] [place], [address] Creatinine [Mass/Vol] 1.07 mg/dL High 0.55-1.02 [facility] Comment on above: Result Comment: The validity of the calculated GFR GFRAA in patients over 70 years has not been determined. Clinical correlation is essential. Performed By: #### L 500.4100, L100.0100, L500.4050 ####[facility] [address] [place], [address] EST GFR - AA 68 mL/min Normal >60 [facility] Comment on above: Result Comment: Afri can Vietnamese GFR Calc Performed By: #### L 500.4100, L100.0100, L500.4050 ####[facility] [address] [place], [address] GAP 5 Normal 5-15 [facility] Comment on above: Performed By: #### L 500.4100, L100.0100, L500.4050 ####[facility] [address] [place], [address] GFR/1.73 sq M.predicted among non-blacks MDRD (S/P/Bld) [Vol rate/Area] 56 mL/min/{1.73_m2} Low >60 [facility] Comment on above: Result Comment: Non- GFR Calc Performed By: #### L 500.4100, L100.0100, L500.4050 ####[facility] [address] [place], [address] Globulin (S) [Mass/Vol] 3.9 g/dL Normal 2.2-4.2 [facility] Comment on above: Performed By: #### L 500.4100, L100.0100, L500.4050 ####[facility] [address] [place], [address] Glucose [Mass/Vol] 93 mg/dL Normal 74-106 [facility] Comment on above: Performed By: #### L 500.4100, L100.0100, L500.4050 ####[facility] [address] [place], [address] Potassium [Moles/Vol] 4.5 mmol/L Normal 3.5-5.1 [facility] Comment on above: Performed By: #### L 500.4100, L100.0100, L500.4050 ####[facility] [address] [place], [address] Sodium [Moles/Vol] 141 mmol/L Normal 136-145 [facility] Comment on above: Performed By: #### L 500.4100, L100.0100, L500.4050 ####[facility] [address] [place], [address] T PROT 7.6 g/dL Normal 6.4-8.2 [facility] Comment on above: Performed By: #### L 500.4100, L100.0100, L500.4050 ####[facility] [address] [place], [address] Urea nitrogen [Mass/Vol] 13 mg/dL Normal 7-18 [facility] Comment on above: Performed By: #### L 500.4100, L100.0100, L500.4050 ####[facility] [address] [place], [address] Eosinophil percentageOrdered By: Fina Iraheta on 08-13-2024 Eosinophils/100 WBC (Bld) 1.5 % 0-5 [facility] Erythrocyte distribution wid th ratioOrdered By: rubina Iraheta on 08-13-2024 Erythrocyte distribution width (RBC) [Ratio] 12.4 % 11.6-14.6 [facility] Erythrocyte distribution wid th standard deviationOrdered By: rubina Iraheta on 08-13-2024 Erythrocyte distribution width (RBC) [Entitic vol] 47.4 fL High 35.1-43.9 [facility] Erythrocyte distribution width (RBC) [Ratio] 47.4 fl High 35.1-43.9 [facility] Estimated glomerular filtrat ion rate (GFR) AmericanOrdered By: Fina Iraheta on 08-13-2024 Estimated GFR (MDRD) Amer 68 mL/min >60 [facility] Comment on above: GFR Calc Glomerular filtration rate ( GFR) estimationOrdered By: Fina Iraheta on 08-13-2024 Estimated GFR (MDRD) Non-Af Amer 56 mL/min Low >60 [facility] Comment on above: Non- GFR Calc GFR/1.73 sq M.predicted among non-blacks MDRD (S/P/Bld) [Vol rate/Area] 56 mL/min/{1.73_m2} Low >60 [facility] Comment on above: Non- GFR Calc Glucose measurementOrdered B y: Fina Iraheta on 08-13-2024 Glucose [Mass/Vol] 93 mg/dL 74-106 [facility] Hematocrit Auto (Bld) [Volum e fraction]Ordered By: Fina Iraheta on 08-13-2024 Hematocrit (Bld) [Volume fraction] 43.7 % 37-47 [facility] Hemoglobin measurementOrdere d By: Fina Iraheta on 08-13-2024 Hemoglobin (Bld) [Mass/Vol] 14.2 g/dL 12.0-15.0 [facility] High density lipoprotein (HD L) measurementOrdered By: Fina Iraheta on 08-13-2024 Cholesterol in HDL [Mass/Vol] 55 mg/dL >40 [facility] Comment on above: The drugs N-Acetylcy steine and Metamizole may falsely depress this assay. Reference Range HDL <40 mg/dL Low HDL Cholesterol HDL >or= 60 mg/dL High HDL Cholesterol Immature granulocytes/100 WB C Auto (Bld)Ordered By: Fina Iraheta on 08-13-2024 Immature granulocytes/100 WBC (Bld) 0.300 % 0.0-0.9 [facility] Comment on above: IG% - Immature Granu locytes (promyelocytes, myelocytes and metamyelocytes) > 1% indicates that a LEFT SHIFT is Present. Internal Medicine Office Vis iton 08-13-2024 Internal Medicine Office Visit [facility] [address] [place] [address] [place] [address] OFFICE VISIT Date of Service: 08/13/24 MR#: [id number] Acct: [id number] Name: TRACY VAZQUEZ Rep #: [id number] : 1970 Provider: Dr. Fina ravi MD Age/Sex: 54/F Location[place] [facility] Status: Signed Intake Vital Signs 03/03/24 11:00 [...] Delivery Method room air Intake Visit Reasons: [employer]. EST CARE - PPW SENT Chief Complaint: [employer]-ESTABLISH CARE Special Procedure Tech Required: No Accompanied by: Self Is patient [...] SNOW 1 MONTH AGO; RIGHT KNEE PAIN-RESOLVED) [facility] Medical History (Updated 08/13/24 @ 17:33 [...] apartment current occupational status: employed current occupation: [employer] Smoking Status: Current every day smoker tobacco type: cigarettes Tobacco: How many years used: 40 alcohol intake: former year quit: 2014 substance use type: former substance user and crack/cocaine what type of physical activity do you participate in: walking frequency: 3-4 times per week seatbelt use: always do you feel safe at home: Yes HPI HPI Chief Complaint: [employer]-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 No significant acute concerns. Chronic history of HIV, follows up with infectious disease. Currently on Biktarvy, she states that her levels are undetectable. Also history of COPD, follows up with pulmonary at the [facility]. Recently started on Spiriva which she has [...] pain on (more content not included)... Normal [facility] Laboratory - Chemistry and C hemistry - challengeOrdered By: Fina Iraheta on 08-13-2024 AST [Catalytic activity/Vol] 10 U/L Low 15-37 [facility] Lipid Profileon 08-13-2024 Cholesterol [Mass/Vol] 129 mg/dL Normal 200 [facility] Comment on above: Result Comment: <200 mg/dL Desirable 200-240 mg/dL Borderline >240 mg/dL High Risk Performed By: #### L 500.4100, L100.0100, L500.4050 ####[facility] [address] [place], [address] Cholesterol in HDL [Mass/Vol] 55 mg/dL Normal [facility] Comment on above: Result Comment: The drugs N-Acetylcysteine and Metamizole may falsely depress this assay. Reference Range HDL <40 mg/dL Low HDL Cholesterol HDL >or= 60 mg/dL High HDL Cholesterol Performed By: #### L 500.4100, L100.0100, L500.4050 ####[facility] [address] [place], [address] Cholesterol in LDL [Mass/Vol] 48 mg/dL Normal 0-130 [facility] Comment on above: Performed By: #### L 500.4100, L100.0100, L500.4050 ####[facility] [address] [place], [address] Cholesterol in VLDL [Mass/Vol] 26 mg/dL Normal 5-40 [facility] Comment on above: Performed By: #### L 500.4100, L100.0100, L500.4050 ####[facility] [address] [place], [address] Triglyceride [Mass/Vol] 130 mg/dL Normal [facility] Comment on above: Result Comment: The drugs N-Acetylcysteine and Metamizole may falsely depress this assay. Serum Triglycerides Reference Interval Normal <150 mg/dL Borderline high 150 - 199 mg/dL High 200 - 499 mg/dL Very High > or = 500 mg/dL Performed By: #### L 500.4100, L100.0100, L500.4050 ####[facility] [address] [place], [address] Low density lipoprotein (LDL ) cholesterol measurementOrdered By: Fina Iraheta on 08-13-2024 Cholesterol in LDL [Mass/Vol] 48 mg/dL 0-130 [facility] Lymphocytes Auto (Unsp spec) [#/Vol]Ordered By: Fina Iraheta on 08-13-2024 Lymphocytes (Bld) [#/Vol] 2.19 10*3/uL 0.83-4.51 [facility] Lymphocytes/100 WBC Auto (Un sp spec)Ordered By: Fina Iraheta on 08-13-2024 Lymphocytes/100 WBC (Bld) 35.7 % 19-41 [facility] MCV (mean corpuscular volume ) determinationOrdered By: Fina Iraheta on 08-13-2024 MCV (RBC) [Entitic vol] 103.3 fL High 81-99 [facility] Mean corpuscular hemoglobin (MCH) determinationOrdered By: Fina Iraheta on 08-13-2024 MCH (RBC) [Entitic mass] 33.6 pg High 27.0-32.0 [facility] Mean corpuscular hemoglobin concentration (MCHC) determinationOrdered By: Fina Iraheta on 08-13-2024 MCHC (RBC) [Mass/Vol] 32.5 g/dL 32-36 [facility] Mean platelet volume determi nationOrdered By: Fina Iraheta on 08-13-2024 Platelet mean volume (Bld) [Entitic vol] 11.2 fL 6.2-12.0 [facility] Monocyte percentageOrdered B y: Fina Iraheta on 08-13-2024 Monocytes/100 WBC (Bld) 6.0 % 0-10 [facility] Neutrophil percentageOrdered By: Fina Iraheta on 08-13-2024 Neutrophils/100 WBC (Bld) 55.7 % 47-70 [facility] Nucleated red blood cell per centageOrdered By: Fina Iraheta on 08-13-2024 Nucleated RBC/100 WBC (Bld) [Ratio] 0 % 0-5 [facility] Platelet countOrdered By: Migue Iraheta on 08-13-2024 Platelets (Bld) [#/Vol] 250 10*3/uL 150-450 [facility] Potassium measurementOrdered By: Fina Iraheta on 08-13-2024 Potassium [Moles/Vol] 4.5 mmol/L 3.5-5.1 [facility] RBC Auto (Bld) [#/Vol]Ordere d By: Fina Iraheta on 08-13-2024 RBC (Bld) [#/Vol] 4.23 10*6/uL 4.2-5.4 [facility] Serum anion gap measurementO rdered By: Fina Iraheta on 08-13-2024 Anion gap [Moles/Vol] 5 mmol/L 5-15 [facility] Serum globulin measurementOr dered By: Fina Iraheta on 08-13-2024 Globulin (S) [Mass/Vol] 3.9 g/dL 2.2-4.2 [facility] Serum or plasma alanine vizcaino otransferase (ALT) measurementOrdered By: Fina Iraheta on 08-13-2024 ALT [Catalytic activity/Vol] 13 U/L 13-56 [facility] Serum or plasma albumin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 CD3+CD4+ (T4 helper) cells/100 cells (Unsp spec) 54.4 % 30.8-58.5 [facility] Plasma HIV 1 RNA viral load by probe and target amplification method (log number/voluOrdered By: Dr. Mcdonald on 08-25-2022 HIV 1 RNA TESHA+probe [Log #/Vol] TNP [facility] Comment on above: Test not performedRe sult Units: [id number]/mLUnable to calculate result since non-numeric resultobtained for component test.Performed at: [facility] - [address] [id number] Director: Trevin Anguiano MD, Phone: [phone] Platelets bldOrdered By: Dr. Mcdonald on 08-25-2022 Platelets (Bld) [#/Vol] 192 10*3/uL 150-450 [facility] RBC Auto (Bld) [#/Vol]Ordere d By: Dr. Mcdonald on 08-25-2022 RBC (Bld) [#/Vol] 4.02 10*6/uL 3.77-5.28 [facility] Serum Treponema species anti body detectionOrdered By: Dr. Mcdonald on 08-25-2022 Treponema sp Ab Ql (S) Non-Reactive [facility] Thin prep Papanicolaou smear with manual screeningOrdered By: Dr. Mcdonald on 08-25-2022 Thin prep Papanicolaou smear with manual screening 34.3 pg 26.6-33.0 [facility] Thin prep Papanicolaou smear with manual screening 5 % Not Estab. [facility] CBC panel Auto (Bld)on 08-02 Erythrocyte distribution width (RBC) [Ratio] 12.4 % 11.5 - 15.0 % [facility] Hematocrit (Bld) [Volume fraction] 46.1 % High 36.0 - 46.0 % [facility] Hemoglobin (Bld) [Mass/Vol] 15.3 g/dL 11.5 - 15.5 g/dL [facility] MCH (RBC) [Entitic mass] 34.4 pg High 26.0 - 34.0 pg [facility] MCHC (RBC) [Mass/Vol] 33.2 g/dL 30.5 - 36.0 g/dL [facility] MCV (RBC) [Entitic vol] 103.6 fL High 80.0 - 100.0 fL [facility] Nucleated RBC (Bld) [#/Vol] <0.01 k/uL [facility] Platelet mean volume (Bld) [Entitic vol] 11.7 fL 9.0 - 12.7 fL [facility] Platelets (Bld) [#/Vol] 224 10*3/uL 150 - 400 k/uL [facility] RBC (Bld) [#/Vol] 4.45 10*6/uL 3.90 - 5.2 0 m/uL [facility] WBC (Bld) [#/Vol] 6.16 10*3/uL 3.70 - 11. 00 k/uL [facility] SPIROMETRY - BASELINE AND PO ST DILATORon 07-20-2022 ERV BOX (L) 1.28 L [facility] [id number]% POST (L/S) 1.80 L[facility] YFN90-86[facility] PRE (L/S) 1.24 L/S [facility] FEV1 PRE (L) 2.08 L [facility] FEV1/FVC POST (%) 75 % [facility] FEV1/FVC PRE (%) 69 % [facility] FEV1_POST (L) 2.25 L [facility] FRC Box (L) 2.96 L [facility] FVC POST (L) 3.02 L [facility] FVC PRE (L) 3.03 L [facility] IC BOX (L) 1.66 L [facility] PEF POST (L/S) 4.08 L/S [facility] PEF PRE (L/S) 4.14 L/S [facility] RV Box (L) 1.73 L [facility] RV/TLC Box (%) 36 % [facility] TLC Box (L) 4.76 L [facility] VC (L) BOX 3.10 L [facility] UA DIP, URINE (POC)on 2021 BILIRUBIN UA (POCT) Negative Negative [facility] CLARITY UA (POCT) Slightly Cloudy Cl [facility] COLOR UA (POCT) Light yellow [facility] GLUCOSE UA (POCT) Negative Negative mg/dL [facility] HEMOGLOBIN/BLOOD UA (POCT) Negative Negative [facility] KETONE UA (POCT) Negative Negative mg/dL [facility] LEUKOCYTES UA (POCT) Negative Negative [facility] NITRITE UA (POCT) Negative Negative [facility] PH UA (POCT) 6.0 4.5 - 8.0 [facility] Protein Ql (U) Negative Negative mg/dL [facility] SPECIFIC GRAVITY UA (POCT) 1.010 1.005 - 1.030 [facility] UROBILINOGEN UA (POCT) 0.2 E.U./dL Normal E.U./dL [facility] Absolute lymphocyte counton 01-26-2022 Lymphocytes Auto (Unsp spec) [#/Vol] 2.67 10*3/uL 0.83-4.51 [facility] Work Phone: [phone] Basophil percentageon 2021 Basophils/100 WBC (Bld) 0.7 % 0-1 [facility] Work Phone: [phone] C. trachomatis DNA TESHA+probe Ql (Unsp spec) Negative Negative [facility] Work Phone: Eosinophils/100 WBC (Bld) 3.3 % 0-5 [facility] Work Phone: Neutrophils (Bld) [#/Vol] 3.9 10*3/uL 2.0-7.7 [facility] Work Phone: Neutrophils/100 WBC (Bld) 53.6 % 47-70 [facility] Work Phone: WBC (Bld) [#/Vol] 7.3 10*3/uL 4.4-11.0 [facility] Work Phone: [phone] Bilirubin [Mass/Vol] 0.50 mg/dL 0.20-1.00 [facility] [facility] Work Phone: [phone] Comment on above: For patients on eltr ombopag therapy, use of Dimension [place] TBIL is not recommended. Chloride [Moles/Vol] 107 mmol/L 98-107 [facility] Work Phone: Cholesterol [Mass/Vol] 137 mg/dL <200 [facility] Work Phone: Comment on above: <200 mg/dL Desirable 200-240 mg/dL Borderline >240 mg/dL High Risk Glucose [Mass/Vol] 73 mg/dL 74-106 [facility] Work Phone: [phone] Potassium [Moles/Vol] 3.9 mmol/L 3.5-5.1 [facility] Work [facility]: [phone] Protein [Mass/Vol] 7.1 g/dL 6.4-8.2 [facility] Work Phone: [phone] Sodium [Moles/Vol] 140 mmol/L 136-145 [facility] Work Phone: [phone] Triglyceride [Mass/Vol] 112 mg/dL <199 [facility] Work Phone: Comment on above: The drugs N-Acetylcy steine and Metamizole may falsely depress this assay.Serum Triglycerides Reference Interval Normal <150 mg/dL Borderline high 150 - 199 mg/dL High 200 - 499 mg/dL Very High > or = 500 mg/dL Blood erythrocytes count (nu mber/volume)on 01-26-2022 RBC (Bld) [#/Vol] 3.86 10*6/uL 4.2-5.4 [facility] Work Phone: Blood hemoglobin measurement (mass/volume)on 01-26-2022 Hemoglobin (Bld) [Mass/Vol] 13.6 g/dL 12.0-15.0 [facility] Work Phone: Blood lymphocytes/100 leukoc yteson 01-26-2022 Lymphocytes/100 WBC (Bld) 36.6 % 19-41 [facility] Work Phone: Blood monocytes/100 leukocyt eson 01-26-2022 Monocytes/100 WBC (Bld) 5.5 % 0-10 [facility] Work Phone: Blood platelet mean volumeon 01-26-2022 Platelet mean volume (Bld) [Entitic vol] 11.2 fL 6.2-12.0 [facility] Work Phone: Determination of erythrocyte mean corpuscular volume (MCV)on 01-26-2022 MCV (RBC) [Entitic vol] 104.9 fL 81-99 [facility] Work Phone: [phone] Hematocrit Auto (Bld) [Volum e fraction]on 01-26-2022 Hematocrit (Bld) [Volume fraction] 40.5 % 37-47 [facility] Work Phone: [phone] Laboratory - Chemistry and C hemistry - challengeon 01-26-2022 ALP [Catalytic activity/Vol] 58 U/L 45-117 [facility] Work Phone: [phone] ALT [Catalytic activity/Vol] 18 U/L 13-56 [facility] Work Phone: [phone] CO2 [Moles/Vol] 28.0 mmol/L 21.0-32.0 [facility] Work Phone: [phone] Globulin (S) [Mass/Vol] 3.5 g/dL 2.2-4.2 [facility] Work Phone: [phone] Urea nitrogen/Creatinine [Mass ratio] 10.0 mg/mg 10-20 [facility] Work Phone: [phone] Laboratory - Hematology and Cell countson 01-26-2022 Erythrocyte distribution width (RBC) [Entitic vol] 49.5 fL 35.1-43.9 [facility] Work Phone: [phone] Erythrocyte distribution width (RBC) [Ratio] 12.8 % 11.6-14.6 [facility] Work Phone: [phone] Immature granulocytes/100 WBC (Bld) 0.300 % 0.0-0.9 [facility] Work Phone: Comment on above: IG% - Immature Granu locytes (promyelocytes, myelocytes and metamyelocytes) > 1% indicates that a LEFT SHIFT is Present. MCH (RBC) [Entitic mass] 35.2 pg 27.0-32.0 [facility] Work Phone: [phone] Nucleated RBC/100 WBC (Bld) [Ratio] 0 % 0-5 [facility] Work Phone: MCHC Auto (RBC) [Mass/Vol]on 01-26-2022 MCHC (RBC) [Mass/Vol] 33.6 g/dL 32-36 [facility] Work Phone: Neisseria gonorrhoeae detect ion by PCRon 01-26-2022 N. gonorrhoeae DNA TESHA+probe Ql (Cervical mucus) Negative Negative [facility] Work Phone: No Panel Informationon 01-26 Hepatitis C Antibody Non-Reactive Nonreactive [facility] Work Phone: Comment on above: Non Reactive: < 0.8 Equivocal: >/= 0.8 to < 1.0 Reactive: >/= 1.0The CDC recommends that a reactive/equivocal HCV antibody result be followed up by the HCV Nucleic Acid Amplificationtest (093202) HIV-1 RNA Ultraquantitative (PCR) < 20 copies/mL . [facility] Work Phone: Comment on above: HIV-1 RNA not detect edThe reportable range for this assay is 20 to 10,000,000copies HIV-1 RNA/mL. Miscellaneous Test See comment [facility] Work Phone: Comment on above: TEST RESULT LIMITST- Cell Activation, CD8 SubsetsAbsolute CD 3 2101 /uL 622-2402% CD 3 Pos. Lymph. 80.8 % 57.5-86.2Absolute CD 4 [place] 1404 /uL 359-1519% CD 4 Pos. Lymph. 54.0 % 30.8-58.5Absolute CD 8 (Supp) 681 /uL 109-897% CD 8 Pos. Lymph. 26.2 % 12.0-35.5CD4/CD8 Ratio 2.06 0.92-3.72Abs.CD8+HLA-DR+Lymph 94 /uL 0-117This test was developed and its performance characteristicsdetermined by [facility]. It has not been cleared or approvedby the Food and Drug Administration.% CD8+HLA-DR+ Lymphs 3.6 % 0.0-4.9This test was developed and its performance characteristicsdetermined by [facility]. It has not been cleared or approvedby the Food and Drug Administration.% CD3+CD25+ Lymphs 37.3 High % 4.9-25.9This test was developed and its performance characteristicsdetermined by [facility]. It has not been cleared or approvedby the Food and Drug Administration.Abs.CD3+CD25+ Lymphs 970 High /uL 79-535This test was developed and its performance characteristicsdetermined by [facility]. It has not been cleared or approvedby the Food and Drug Administration.% CD8+CD38+ Lymphs 4.7 % 0.0-17.7This test was developed and its performance characteristicsdetermined by [facility]. It has not been cleared or approvedby the Food and Drug Administration.Abs.CD8+CD38+ Lymphs 122 /uL 0-381This test was developed and its performance characteristicsdetermined by [facility]. It has not been cleared or approvedby [...] (Abs) 0.0 x10E3/uL 0.0-0.1 TESTING PERFORMED AT [facility]. ORIGINAL REPORT ON FILE IN LAB CONTAINS ADDITIONAL TEST SITE INFORMATION. Estimated GFR (MDRD) Amer 74 mL/min >60 [facility] Work Phone: Comment on above: GFR Calc Estimated GFR (MDRD) Non-Af Amer 62 mL/min >60 [facility] Work Phone: Comment on above: Non- GFR Calc Plasma HIV 1 RNA viral load by probe and target amplification method (log number/voluon 01-26-2022 HIV 1 RNA TESHA+probe [Log #/Vol] TNP [facility] Work Phone: Comment on above: Test not performedRe sult Units: nbf07ldks/mLUnable to calculate result since non-numeric resultobtained for component test.Performed at: [address] [id number] Director: Trevin Anguiano MD, Phone: [phone] Platelets bldon 01-26-2022 Platelets (Bld) [#/Vol] 213 10*3/uL 150-450 [facility] Work Phone: Serum Treponema species anti body detectionon 01-26-2022 Treponema sp Ab Ql (S) Non-Reactive [facility] Work Phone: Serum or plasma albumin hortensia urement (mass/volume)on 01-26-2022 Albumin [Mass/Vol] 3.6 g/dL 3.2-5.0 [facility] Work Phone: Serum or plasma albumin/glob ulin mass ratioon 01-26-2022 Albumin/Globulin [Mass ratio] 1.0 {ratio} 0.9-2.4 [facility] Work Phone: Serum or plasma calcium hortensia urement (mass/volume)on 01-26-2022 Calcium [Mass/Vol] 8.8 mg/dL 8.5-10.1 [facility] Work Phone: Serum or plasma cholesterol in HDL measurement (mass/volume)on 01-26-2022 Cholesterol in HDL [Mass/Vol] 59 mg/dL >40 [facility] Work Phone: Comment on above: The drugs N-Acetylcy steine and Metamizole may falsely depress this assay. Reference Range HDL <40 mg/dL Low HDL Cholesterol HDL >or= 60 mg/dL High HDL Cholesterol Serum or plasma cholesterol in VLDL measurement (mass/volume)on 01-26-2022 Cholesterol in VLDL [Mass/Vol] 22 mg/dL 5-40 [facility] Work Phone: Serum or plasma creatinine m easurement (mass/volume)on 01-26-2022 Creatinine [Mass/Vol] 1.00 mg/dL 0.55-1.02 [facility] Work Phone: Comment on above: The validity of the calculated GFR & GFRAA in patients over 70 years has not been determined. Clinical correlation is essential. Serum or plasma low density lipoprotein (LDL) cholesterol measurement (mass/volume)on 01-26-2022 Cholesterol in LDL [Mass/Vol] 56 mg/dL 0-130 [facility] Work Phone: Serum or plasma urea nitroge n measurement (mass/volume)on 01-26-2022 Urea nitrogen [Mass/Vol] 10 mg/dL 7-18 [facility] Work Phone: Thin prep Papanicolaou smear with manual screeningon 01-26-2022 Thin prep Papanicolaou smear with manual screening 16 U/L 15-37 [facility] Work Phone: Thin prep Papanicolaou smear with manual screening 5 5-15 [facility] Work Phone: XR CHEST 2V FRONTAL/LATon [facility] XR Chest PA and Lateralon IMPRESSION: No acute radiographic abnormality. Computer Patternmaker: REJI Transcribe Date/Time: Jan 26 2022 12:04P [...] Unremarkable. IMPRESSION IMPRESSION: No acute radiographic abnormality. Computer Patternmaker: [facility]OS[facility]ITAL[facility]rendra Transcribe Date/Time: Jan 26 2022 12:04P Dictated by : KENDELL GREY MD This examination was interpreted and the report reviewed and electronically signed by: KENDELL GREY MD on Jan 26 2022 12:05PM EST [facility] Radiology Study observation (narrative) [facility] XR Chest PA and LateralOrder ed By: [facility] Provider on 01-26-2022 [facility] Vital Signs Date Time Vital Sign Value Performing Clinician [facility] 05-13-2025 10:43-0400 Body height 157.[address] Fina Iraheta MD Work Phone: [facility] 05-13-2025 10:43-0400 Body mass index (BMI) [Ratio] 22.3 kg/m2 Dr. Fina Iraheta MD Work Phone: [facility] 05-13-2025 10:43-0400 Body temperature 98 [degF] Dr. Fina Iraheta MD Work Phone: [facility] 05-13-2025 10:43-0400 Body weight 55.[address] Fina Iraheta MD Work Phone: [facility] 05-13-2025 10:43-0400 Diastolic blood pressure 54 mm[Hg] Dr. Fina Iraheta MD Work Phone: [facility] 05-13-2025 10:43-0400 Heart rate 80 /min Dr. Fina Iraheta MD Work Phone: [facility] 05-13-2025 10:43-0400 Respiratory rate 18 /min Dr. Fina Iraheta MD Work Phone: [facility] 05-13-2025 10:43-0400 SaO2% (BldA) [Mass fraction] 97 % Dr. Fina Iraheta MD Work Phone: [facility] 05-13-2025 10:43-0400 Systolic blood pressure 102 mm[Hg] Dr. Fina Iraheta MD Work Phone: [facility] 05-02-2025 09:59-0400 Body mass index (BMI) [Ratio] 22.2 kg/m2 Dr. Fina Iraheta MD Work Phone: [facility] 05-02-2025 09:59-0400 Body temperature 97.5 [degF] Dr. Fina Iraheta MD Work Phone: [facility] 05-02-2025 09:59-0400 Body weight 55.[address] Fina Iraheta MD Work Phone: [facility] 05-02-2025 09:59-0400 Diastolic blood pressure 83 mm[Hg] Dr. Fina Iraheta MD Work Phone: [facility] 05-02-2025 09:59-0400 Heart rate 67 /min Dr. Fina Iraheta MD Work Phone: [facility] 05-02-2025 09:59-0400 Respiratory rate 18 /min Dr. Fina Iraheta MD Work Phone: [facility] 05-02-2025 09:59-0400 SaO2% (BldA) [Mass fraction] 96 % Dr. Fina Iraheta MD Work Phone: [facility] 05-02-2025 09:59-0400 Systolic blood pressure 116 mm[Hg] Dr. Fina Iraheta MD Work Phone: [facility] 03-15-2025 20:08-0400 Body temperature 98 [degF] Dr. Fina Iraheta MD Work Phone: [facility] 03-15-2025 20:08-0400 Diastolic blood pressure 80 mm[Hg] Dr. Fina Iraheta MD Work Phone: [facility] 03-15-2025 20:08-0400 Heart rate 76 /min Dr. Fina Iraheta MD Work Phone: [facility] 03-15-2025 20:08-0400 Respiratory rate 18 /min Dr. Fina Iraheta MD Work Phone: [facility] 03-15-2025 20:08-0400 SaO2% (BldA) [Mass fraction] 96 % Dr. Fina Iraheta MD Work Phone: [facility] 03-15-2025 20:08-0400 Systolic blood pressure 118 mm[Hg] Dr. Fina Iraheta MD Work Phone: [facility] 03-15-2025 17:06-0400 Body height 157.[address] Fina Iraheta MD Work Phone: [facility] 03-15-2025 17:06-0400 Body mass index (BMI) [Ratio] 22.4 kg/m2 Dr. Fina Iraheta MD Work Phone: [facility] 03-15-2025 17:06-0400 Body weight 55.[address] Fina Iraheta MD Work Phone: [facility] 03-15-2025 15:40-0400 Body height 157.[address] Fina Iraheta MD Work Phone: [facility] 03-15-2025 15:40-0400 Body mass index (BMI) [Ratio] 22.4 kg/m2 Dr. Fina Iraheta MD Work Phone: [facility] 03-15-2025 15:40-0400 Body temperature 98.2 [degF] Dr. Fina Iraheta MD Work Phone: [facility] 03-15-2025 15:40-0400 Body weight 55.[address] Fina Iraheta MD Work Phone: [facility] 03-15-2025 15:40-0400 Diastolic blood pressure 93 mm[Hg] Dr. Fina Iraheta MD Work Phone: [facility] 03-15-2025 15:40-0400 Heart rate 86 /min Dr. Fina Iraheta MD Work Phone: [facility] 03-15-2025 15:40-0400 Respiratory rate 16 /min Dr. Fina Iraheta MD Work Phone: [facility] 03-15-2025 15:40-0400 SaO2% (BldA) [Mass fraction] 100 % Dr. Fina Iraheta MD Work Phone: [facility] 03-15-2025 15:40-0400 Systolic blood pressure 117 mm[Hg] Dr. Fina Iraheta MD Work Phone: [facility] 03-15-2025 14:56-0400 Body mass index (BMI) [Ratio] 22.7 kg/m2 Rubina Campos MD Work Phone: [facility] 03-15-2025 14:56-0400 Body temperature 98.91 [degF] Rubina Campos MD Work Phone: [facility] 03-15-2025 14:56-0400 Body weight 56.3 kg Rubina Campos MD Work Phone: [facility] 03-15-2025 14:56-0400 Diastolic blood pressure 70 mm[Hg] Rubina Campos MD Work Phone: [facility] 03-15-2025 14:56-0400 Heart rate 94 /min Rubina Campos MD Work Phone: [facility] 03-15-2025 14:56-0400 Respiratory rate 16 /min Rubina Campos MD Work Phone: [facility] 03-15-2025 14:56-0400 SaO2% (BldA) [Mass fraction] 98 % Rubina Campos MD Work Phone: [facility] 03-15-2025 14:56-0400 Systolic blood pressure 118 mm[Hg] Rubina Campos MD Work Phone: [facility] 03-08-2025 13:28-0400 Body height 157.[address] Fina Iraheta MD Work Phone: [facility] 03-08-2025 13:28-0400 Body mass index (BMI) [Ratio] 22.8 kg/m2 Dr. Fina Iraheta MD Work Phone: [facility] 03-08-2025 13:28-0400 Body temperature 97.7 [degF] Dr. Fina Iraheta MD Work Phone: [facility] 03-08-2025 13:28-0400 Body weight 56.[address] Fina Iraheta MD Work Phone: [facility] 03-08-2025 13:28-0400 Diastolic blood pressure 84 mm[Hg] Dr. Fina Iraheta MD Work Phone: [facility] 03-08-2025 13:28-0400 Heart rate 64 /min Dr. Fina Iraheta MD Work Phone: [facility] 03-08-2025 13:28-0400 Respiratory rate 18 /min Dr. Fina Iraheta MD Work Phone: [facility] 03-08-2025 13:28-0400 SaO2% (BldA) [Mass fraction] 99 % Dr. Fina Iraheta MD Work Phone: [facility] 03-08-2025 13:28-0400 Systolic blood pressure 132 mm[Hg] Dr. Fina Iraheta MD Work Phone: [facility] 03-08-2025 11:30-0400 Body temperature 98 [degF] Dr. Fina Iraheta MD Work Phone: [facility] 03-08-2025 11:30-0400 Diastolic blood pressure 79 mm[Hg] Dr. Fina Iraheta MD Work Phone: [facility] 03-08-2025 11:30-0400 Heart rate 60 /min Dr. Fina Iraheta MD Work Phone: [facility] 03-08-2025 11:30-0400 Respiratory rate 16 /min Dr. Fina Iraheta MD Work Phone: [facility] 03-08-2025 11:30-0400 SaO2% (BldA) [Mass fraction] 100 % Dr. Fina Iraheta MD Work Phone: [facility] 03-08-2025 11:30-0400 Systolic blood pressure 141 mm[Hg] Dr. Fina Iraheta MD Work Phone: [facility] 03-08-2025 08:41-0400 Body height 157.[address] Fina Iraheta MD Work Phone: [facility] 03-08-2025 08:41-0400 Body mass index (BMI) [Ratio] 22.4 kg/m2 Dr. Fina Iraheta MD Work Phone: [facility] 03-08-2025 08:41-0400 Body weight 55.[address] Fina Iraheta MD Work Phone: [facility] 03-08-2025 08:16-0400 Body mass index (BMI) [Ratio] 22.57 kg/m2 Ginny Swank BICYCLE COURIER.FERTILIZING MACHINE OPERATOR Work Phone: [facility] 03-08-2025 08:16-0400 Body temperature 96.69 [degF] Ginny Swank BICYCLE COURIER.FERTILIZING MACHINE OPERATOR Work Phone: [facility] 03-08-2025 08:16-0400 Body weight 56 kg Ginny Swank BICYCLE COURIER.FERTILIZING MACHINE OPERATOR Work Phone: [facility] 03-08-2025 08:16-0400 Diastolic blood pressure 87 mm[Hg] Ginny Swank BICYCLE COURIER.FERTILIZING MACHINE OPERATOR Work Phone: [facility] 03-08-2025 08:16-0400 Heart rate 63 /min Ginny Swank BICYCLE COURIER.FERTILIZING MACHINE OPERATOR Work Phone: [facility] 03-08-2025 08:16-0400 Respiratory rate 22 /min Ginny Swank BICYCLE COURIER.FERTILIZING MACHINE OPERATOR Work Phone: [facility] 03-08-2025 08:16-0400 SaO2% (BldA) [Mass fraction] 99 % Ginny Swank BICYCLE COURIER.FERTILIZING MACHINE OPERATOR Work Phone: [facility] 03-08-2025 08:16-0400 Systolic blood pressure 121 mm[Hg] Ginny Swank BICYCLE COURIER.FERTILIZING MACHINE OPERATOR Work Phone: [facility] 02-15-2025 10:24-0400 Body height 157.[address] Fina Iraheta MD Work Phone: [facility] 02-15-2025 10:24-0400 Body mass index (BMI) [Ratio] 22.4 kg/m2 Dr. Fina Iraheta MD Work Phone: [facility] 02-15-2025 10:24-0400 Body temperature 97.5 [degF] Dr. Fina Iraheta MD Work Phone: [facility] 02-15-2025 10:24-0400 Body weight 55.[address] Fina Iraheta MD Work Phone: [facility] 02-15-2025 10:24-0400 Diastolic blood pressure 60 mm[Hg] Dr. Fina Iraheta MD Work Phone: [facility] 02-15-2025 10:24-0400 Heart rate 92 /min Dr. Fina Iraheta MD Work Phone: [facility] 02-15-2025 10:24-0400 Respiratory rate 16 /min Dr. Fina Iraheta MD Work Phone: [facility] 02-15-2025 10:24-0400 SaO2% (BldA) [Mass fraction] 91 % Dr. Fina Iraheta MD Work Phone: [facility] 02-15-2025 10:24-0400 Systolic blood pressure 120 mm[Hg] Dr. Fina Iraheta MD Work Phone: [facility] 02-07-2025 12:29-0400 Body height 157.[address] Fina Iraheta MD Work Phone: [facility] 02-07-2025 12:00-0400 Body temperature 97 [degF] Dr. Fina Iraheta MD Work Phone: [facility] 02-07-2025 12:00-0400 Diastolic blood pressure 83 mm[Hg] Dr. Fina Iraheta MD Work Phone: [facility] 02-07-2025 12:00-0400 Heart rate 90 /min Dr. Fina Irahtea MD Work Phone: [facility] 02-07-2025 12:00-0400 Respiratory rate 18 /min Dr. Fina Iraheta MD Work Phone: [facility] 02-07-2025 12:00-0400 SaO2% (BldA) [Mass fraction] 99 % Dr. Fina Iraheta MD Work Phone: [facility] 02-07-2025 12:00-0400 Systolic blood pressure 114 mm[Hg] Dr. Fina Iraheta MD Work Phone: [facility] 02-07-2025 11:10-0400 Body height 157.[address] Fina Iraheta MD Work Phone: [facility] 02-07-2025 11:10-0400 Body mass index (BMI) [Ratio] 22.3 kg/m2 Dr. Fina Iraheta MD Work Phone: [facility] 02-07-2025 11:10-0400 Body weight 55.[address] Fina Iraheta MD Work Phone: [facility] 12-28-2024 12:28-0400 Body mass index (BMI) [Ratio] 21.85 kg/m2 Chantel Pablo BICYCLE COURIER.FERTILIZING MACHINE OPERATOR Work Phone: [facility] 12-28-2024 12:28-0400 Body temperature 97.39 [degF] Chantel Pablo BICYCLE COURIER.FERTILIZING MACHINE OPERATOR Work Phone: [facility] 12-28-2024 12:28-0400 Body weight 54.2 kg Chantel Shah BICYCLE COURIER.FERTILIZING MACHINE OPERATOR Work Phone: [facility] 12-28-2024 12:28-0400 Diastolic blood pressure 86 mm[Hg] Chantel Pablo BICYCLE COURIER.FERTILIZING MACHINE OPERATOR Work Phone: [facility] 12-28-2024 12:28-0400 Heart rate 85 /min Chantel Shah BICYCLE COURIER.FERTILIZING MACHINE OPERATOR Work Phone: [facility] 12-28-2024 12:28-0400 Respiratory rate 18 /min Chantel Shah BICYCLE COURIER.FERTILIZING MACHINE OPERATOR Work Phone: [facility] 12-28-2024 12:28-0400 SaO2% (BldA) [Mass fraction] 100 % Chantel Shah BICYCLE COURIER.FERTILIZING MACHINE OPERATOR Work Phone: [facility] 12-28-2024 12:28-0400 Systolic blood pressure 115 mm[Hg] Chantel Shah BICYCLE COURIER.FERTILIZING MACHINE OPERATOR Work Phone: [facility] 12-13-2024 09:54-0400 Body mass index (BMI) [Ratio] 21.77 kg/m2 Meagan Jeterler-Stanley BICYCLE COURIER.FERTILIZING MACHINE OPERATOR Work Phone: [facility] 12-13-2024 09:54-0400 Body temperature 97.5 [degF] Meagan Praisler-Wood BICYCLE COURIER.FERTILIZING MACHINE OPERATOR Work Phone: [facility] 12-13-2024 09:54-0400 Body weight 54 kg Meagan Praisler-Wood BICYCLE COURIER.FERTILIZING MACHINE OPERATOR Work Phone: [facility] 12-13-2024 09:54-0400 Diastolic blood pressure 79 mm[Hg] Meagan Praisler-Wood BICYCLE COURIER.FERTILIZING MACHINE OPERATOR Work Phone: [facility] 12-13-2024 09:54-0400 Heart rate 99 /min Meagan Praisler-Wood BICYCLE COURIER.FERTILIZING MACHINE OPERATOR Work Phone: [facility] 12-13-2024 09:54-0400 Respiratory rate 22 /min Meagan Praisler-Wood BICYCLE COURIER.FERTILIZING MACHINE OPERATOR Work Phone: [facility] 12-13-2024 09:54-0400 SaO2% (BldA) [Mass fraction] 97 % Meagan Praisler-Wood BICYCLE COURIER.FERTILIZING MACHINE OPERATOR Work Phone: [facility] 12-13-2024 09:54-0400 Systolic blood pressure 108 mm[Hg] Meagan Praisler-Wood BICYCLE COURIER.FERTILIZING MACHINE OPERATOR Work Phone: [facility] 12-04-2024 08:52-0400 Body mass index (BMI) [Ratio] 22.09 kg/m2 Krislyn Aberegg PA Work Phone: [facility] 12-04-2024 08:52-0400 Body temperature 97 [degF] Krislyn Aberegg PA Work Phone: [facility] 12-04-2024 08:52-0400 Body weight 54.8 kg Krislyn Aberegg PA Work Phone: [facility] 12-04-2024 08:52-0400 Diastolic blood pressure 62 mm[Hg] Krislyn Aberegg PA Work Phone: [facility] 12-04-2024 08:52-0400 Heart rate 90 /min Krislyn Aberegg PA Work Phone: [facility] 12-04-2024 08:52-0400 Respiratory rate 16 /min Krislyn Aberegg PA Work Phone: [facility] 12-04-2024 08:52-0400 SaO2% (BldA) [Mass fraction] 97 % Krislyn Aberegg PA Work Phone: [facility] 12-04-2024 08:52-0400 Systolic blood pressure 106 mm[Hg] Louie MANNING Work Phone: [facility] 11-28-2024 15:07-0400 Body height 157.[address] Hung Cai MD Work Phone: [facility] 11-28-2024 15:07-0400 Body mass index (BMI) [Ratio] 22.1 kg/m2 Dr. Hung Cai MD Work Phone: 8(938)713-211148 [place] [address] 11-28-2024 15:07-0400 Body temperature 98.9 [degF] Dr. Hung Cai MD Work Phone: 2(158)624-379893 [place] [address] 11-28-2024 15:07-0400 Body weight 54.[address] Hung Cai MD Work Phone: 6(599)838-510489 [address] 11-28-2024 15:07-0400 Diastolic blood pressure 72 mm[Hg] Dr. Hung Cai MD Work Phone: 6(048)663-195689 [address] 11-28-2024 15:07-0400 Heart rate 92 /min Dr. Hung Cai MD Work Phone: 5(539)188-354393 [place] [address] 11-28-2024 15:07-0400 Respiratory rate 16 /min Dr. Hung Cai MD Work Phone: 5(067)579-671589 [address] 11-28-2024 15:07-0400 SaO2% (BldA) [Mass fraction] 98 % Dr. Hung Cai MD Work Phone: 2(011)794-914248 [place] [address] 11-28-2024 15:07-0400 Systolic blood pressure 124 mm[Hg] Dr. Hung Cai MD Work Phone: 9(977)616-050593 [place] [address] 11-26-2024 10:49-0400 Body temperature 97.8 [degF] Dr. Hung Cai MD Work Phone: 2(121)381-501548 [place] [address] 11-26-2024 10:49-0400 Diastolic blood pressure 68 mm[Hg] Dr. Hung Cai MD Work Phone: 4(859)910-495248 [place] [address] 11-26-2024 10:49-0400 Heart rate 68 /min Dr. Hung Cai MD Work Phone: [facility] 11-26-2024 10:49-0400 Respiratory rate 15 /min Dr. Hung Cai MD Work Phone: [facility] 11-26-2024 10:49-0400 SaO2% (BldA) [Mass fraction] 99 % Dr. Hung Cai MD Work Phone: 1(536)644-823848 [place] [address] 11-26-2024 10:49-0400 Systolic blood pressure 94 mm[Hg] Dr. Hung Cai MD Work Phone: 4(146)923-021489 [address] 11-26-2024 07:02-0400 Body height 157.[address] Hung Cai MD Work Phone: 4(057)307-380193 [place] [address] 11-26-2024 07:02-0400 Body mass index (BMI) [Ratio] 22.1 kg/m2 Dr. Hung Cai MD Work Phone: [facility] 11-26-2024 07:02-0400 Body weight 54.[address] Hung Cai MD Work Phone: [facility] 11-07-2024 10:37-0400 Body mass index (BMI) [Ratio] 22.13 kg/m2 Julieta Moomaw BICYCLE COURIER.FERTILIZING MACHINE OPERATOR Work Phone: [facility] 11-07-2024 10:37-0400 Body temperature 98.2 [degF] Julieta Moomaw BICYCLE COURIER.FERTILIZING MACHINE OPERATOR Work Phone: [facility] 11-07-2024 10:37-0400 Body weight 54.9 kg Julieta Moomaw BICYCLE COURIER.FERTILIZING MACHINE OPERATOR Work Phone: [facility] 11-07-2024 10:37-0400 Diastolic blood pressure 64 mm[Hg] Julieta Moomaw BICYCLE COURIER.FERTILIZING MACHINE OPERATOR Work Phone: [facility] 11-07-2024 10:37-0400 Heart rate 82 /min Julieta Moomaw BICYCLE COURIER.FERTILIZING MACHINE OPERATOR Work Phone: [facility] 11-07-2024 10:37-0400 Respiratory rate 16 /min Julieta Moomaw BICYCLE COURIER.FERTILIZING MACHINE OPERATOR Work Phone: [facility] 11-07-2024 10:37-0400 SaO2% (BldA) [Mass fraction] 99 % Julieta Moomaw BICYCLE COURIER.FERTILIZING MACHINE OPERATOR Work Phone: [facility] 11-07-2024 10:37-0400 Systolic blood pressure 110 mm[Hg] Julieta Moomaw BICYCLE COURIER.FERTILIZING MACHINE OPERATOR Work Phone: [facility] 10-04-2024 13:02-0400 Body height 157.[address] Hung Cai MD Work Phone: 2(847)297-102448 [place] [address] 10-04-2024 13:02-0400 Body mass index (BMI) [Ratio] 22.1 kg/m2 Dr. Hung Cai MD Work Phone: 3(063)695-002348 [place] [address] 10-04-2024 13:02-0400 Body temperature 97.1 [degF] Dr. Hung Cai MD Work Phone: 9(565)475-507148 [place] [address] 10-04-2024 13:02-0400 Body weight 54.[address] Hung Cai MD Work Phone: 6(680)168-197948 [place] [address] 10-04-2024 13:02-0400 Diastolic blood pressure 84 mm[Hg] Dr. Hung Cai MD Work Phone: 9(966)313-836648 [place] [address] 10-04-2024 13:02-0400 Heart rate 76 /min Dr. Hung Cai MD Work Phone: 8(216)281-843748 [place] [address] 10-04-2024 13:02-0400 Respiratory rate 16 /min Dr. Hung Cai MD Work Phone: 6(158)567-922448 [place] [address] 10-04-2024 13:02-0400 SaO2% (BldA) [Mass fraction] 97 % Dr. Hung Cai MD Work Phone: [facility] 10-04-2024 13:02-0400 Systolic blood pressure 132 mm[Hg] Dr. Hung Cai MD Work Phone: [facility] 09-27-2024 13:06-0400 Body mass index (BMI) [Ratio] 22.17 kg/m2 Krislyn Aberegg PA Work Phone: [facility] 09-27-2024 13:06-0400 Body temperature 97.39 [degF] Krislyn Aberegg PA Work Phone: [facility] 09-27-2024 13:06-0400 Body weight 55 kg Krislyn Aberegg PA Work Phone: [facility] 09-27-2024 13:06-0400 Diastolic blood pressure 88 mm[Hg] Krislyn Aberegg PA Work Phone: [facility] 09-27-2024 13:06-0400 Heart rate 69 /min Krislyn Aberegg PA Work Phone: [facility] 09-27-2024 13:06-0400 Respiratory rate 20 /min Krislyn Aberegg PA Work Phone: [facility] 09-27-2024 13:06-0400 SaO2% (BldA) [Mass fraction] 99 % Krislyn Aberegg PA Work Phone: [facility] 09-27-2024 13:06-0400 Systolic blood pressure 124 mm[Hg] Krislyn Aberegg PA Work Phone: [facility] 09-25-2024 21:49-0400 Body temperature 98.2 [degF] Dr. Hung Cai MD Work Phone: [facility] 09-25-2024 21:49-0400 Diastolic blood pressure 89 mm[Hg] Dr. Hung Cai MD Work Phone: [facility] 09-25-2024 21:49-0400 Heart rate 75 /min Dr. Hung Cia MD Work Phone: [facility] 09-25-2024 21:49-0400 Respiratory rate 18 /min Dr. Hung Cai MD Work Phone: 2(295)629-840393 [place] [address] 09-25-2024 21:49-0400 SaO2% (BldA) [Mass fraction] 98 % Dr. Hung Cai MD Work Phone: 1(991)116-783693 [place] [address] 09-25-2024 21:49-0400 Systolic blood pressure 114 mm[Hg] Dr. Hung Cai MD Work Phone: 5(568)114-438493 [place] [address] 09-25-2024 16:41-0400 Body height 157.[address] Hung Cai MD Work Phone: 4(679)246-385893 [place] [address] 09-25-2024 16:41-0400 Body mass index (BMI) [Ratio] 22.1 kg/m2 Dr. Hung Cai MD Work Phone: 0(094)202-233693 [place] [address] 09-25-2024 16:41-0400 Body weight [address] Hung Cai MD Work Phone: 4(891)718-782993 [place] [address] 09-14-2024 09:41-0500 Body height 162.[address] Hung Cai MD Work Phone: 5(931)619-743593 [place] [address] 09-14-2024 09:41-0500 Body mass index (BMI) [Ratio] 21.2 kg/m2 Dr. Hung Cai MD Work Phone: 3(314)179-782093 [place] [address] 09-14-2024 09:41-0500 Body temperature 98 [degF] Dr. Hung Cai MD Work Phone: 3(847)702-383693 [place] [address] 09-14-2024 09:41-0500 Body weight 56.[address] Hung Cai MD Work Phone: 0(353)995-131193 [place] [address] 09-14-2024 09:41-0500 Diastolic blood pressure 64 mm[Hg] Dr. Hung Cai MD Work Phone: 2(107)736-291093 [place] [address] 09-14-2024 09:41-0500 Heart rate 78 /min Dr. Hung Cai MD Work Phone: 9(746)402-235193 [place] [address] 09-14-2024 09:41-0500 Respiratory rate 19 /min Dr. Hung Cai MD Work Phone: 2(620)451-562448 [place] [address] 09-14-2024 09:41-0500 SaO2% (BldA) [Mass fraction] 97 % Dr. Hung Cai MD Work Phone: 1(774)576-130348 [place] [address] 09-14-2024 09:41-0500 Systolic blood pressure 112 mm[Hg] Dr. Hung Cai MD Work Phone: 2(568)281-551693 [place] [address] 09-11-2024 11:47-0500 Body mass index (BMI) [Ratio] 21.1 kg/m2 Dr. Hung Cai MD Work Phone: 4(636)787-802593 [place] [address] 09-11-2024 11:47-0500 Body temperature 97 [degF] Dr. Hung Cai MD Work Phone: 7(356)115-924693 [place] [address] 09-11-2024 11:47-0500 Body weight 55.[address] Hung Cai MD Work Phone: 0(819)649-822193 [place] [address] 09-11-2024 11:47-0500 Diastolic blood pressure 78 mm[Hg] Dr. Hung Cai MD Work Phone: 4(947)710-904289 [address] 09-11-2024 11:47-0500 Heart rate 93 /min Dr. Hung Cai MD Work Phone: 1(236)176-317689 [address] 09-11-2024 11:47-0500 Respiratory rate 16 /min Dr. Hung Cai MD Work Phone: 6(869)162-683789 [address] 09-11-2024 11:47-0500 SaO2% (BldA) [Mass fraction] 99 % Dr. Hung Cai MD Work Phone: 1(612)985-257789 [address] 09-11-2024 11:47-0500 Systolic blood pressure 99 mm[Hg] Dr. Hung Cai MD Work Phone: 2(202)578-528089 [address] 08-17-2024 12:06-0500 Body mass index (BMI) [Ratio] 22.57 kg/m2 Julieta Poole APRN.CNP Work Phone: [facility] 08-17-2024 12:06-0500 Body temperature 97 [degF] Julieta Moomaw BICYCLE COURIER.FERTILIZING MACHINE OPERATOR Work Phone: [facility] 08-17-2024 12:06-0500 Body weight 56 kg Julieta Moomaw BICYCLE COURIER.FERTILIZING MACHINE OPERATOR Work Phone: [facility] 08-17-2024 12:06-0500 Diastolic blood pressure 84 mm[Hg] Julieta Moomaw BICYCLE COURIER.FERTILIZING MACHINE OPERATOR Work Phone: [facility] 08-17-2024 12:06-0500 Heart rate 86 /min Julieta Moomaw BICYCLE COURIER.FERTILIZING MACHINE OPERATOR Work Phone: [facility] 08-17-2024 12:06-0500 Respiratory rate 20 /min Julieta Moomaw BICYCLE COURIER.FERTILIZING MACHINE OPERATOR Work Phone: [facility] 08-17-2024 12:06-0500 SaO2% (BldA) [Mass fraction] 99 % Julieta Moomaw BICYCLE COURIER.FERTILIZING MACHINE OPERATOR Work Phone: [facility] 08-17-2024 12:06-0500 Systolic blood pressure 114 mm[Hg] Julieta Moomaw BICYCLE COURIER.FERTILIZING MACHINE OPERATOR Work Phone: [facility] 08-13-2024 10:12-0500 Body mass index (BMI) [Ratio] 21.8 kg/m2 Dr. Hung Cai MD Work Phone: [facility] 08-13-2024 10:12-0500 Body temperature 98.3 [degF] Dr. Hung Cai MD Work Phone: [facility] 08-13-2024 10:12-0500 Body weight 57.[address] Hung Cai MD Work Phone: [facility] 08-13-2024 10:12-0500 Diastolic blood pressure 80 mm[Hg] Dr. Hung Cai MD Work Phone: [facility] 08-13-2024 10:12-0500 Heart rate 68 /min Dr. Hung Cai MD Work Phone: [facility] 08-13-2024 10:12-0500 Respiratory rate 16 /min Dr. Hung Cai MD Work Phone: 5(246)483-732693 [place] [address] 08-13-2024 10:12-0500 SaO2% (BldA) [Mass fraction] 97 % Dr. Hung Cai MD Work Phone: 4(719)957-594293 [place] [address] 08-13-2024 10:12-0500 Systolic blood pressure 110 mm[Hg] Dr. Hung Cai MD Work Phone: 7(543)696-839693 [place] [address] 08-01-2024 15:35-0500 Body mass index (BMI) [Ratio] 21.4 kg/m2 Dr. Hung Cia MD Work Phone: 9(973)165-122093 [place] [address] 08-01-2024 15:35-0500 Body temperature 96.6 [degF] Dr. Hung Cai MD Work Phone: 6(041)240-701293 [place] [address] 08-01-2024 15:35-0500 Body weight 56.[address] Hung Cai MD Work Phone: 7(706)290-204593 [place] [address] 08-01-2024 15:35-0500 Diastolic blood pressure 92 mm[Hg] Dr. Hung Cai MD Work Phone: 2(858)606-821393 [place] [address] 08-01-2024 15:35-0500 Heart rate 86 /min Dr. Hung Cai MD Work Phone: 2(599)912-168593 [place] [address] 08-01-2024 15:35-0500 Respiratory rate 16 /min Dr. Hung Cai MD Work Phone: 9(828)533-166393 [place] [address] 08-01-2024 15:35-0500 SaO2% (BldA) [Mass fraction] 99 % Dr. Hung Cai MD Work Phone: 2(461)261-303293 [place] [address] 08-01-2024 15:35-0500 Systolic blood pressure 126 mm[Hg] Dr. Hung Cai MD Work Phone: 1(507)747-260793 [place] [address] 07-31-2024 09:08-0500 Body mass index (BMI) [Ratio] 22.97 kg/m2 Mone Eduardo BICYCLE COURIER.FERTILIZING MACHINE OPERATOR Work Phone: [facility] 07-31-2024 09:08-0500 Body weight 56.97 kg Mone Eduardo BICYCLE COURIER.FERTILIZING MACHINE OPERATOR Work Phone: [facility] 07-31-2024 09:08-0500 Diastolic blood pressure 62 mm[Hg] Mone Eduardo BICYCLE COURIER.FERTILIZING MACHINE OPERATOR Work Phone: [facility] 07-31-2024 09:08-0500 Systolic blood pressure 110 mm[Hg] Mone Eduardo BICYCLE COURIER.FERTILIZING MACHINE OPERATOR Work Phone: [facility] 06-03-2024 10:27-0500 Body mass index (BMI) [Ratio] 23.7 kg/m2 Meagan Praisler-Wood BICYCLE COURIER.FERTILIZING MACHINE OPERATOR Work Phone: [facility] 06-03-2024 10:27-0500 Body temperature 97.7 [degF] Meagan Praisler-Wood BICYCLE COURIER.FERTILIZING MACHINE OPERATOR Work Phone: [facility] 06-03-2024 10:27-0500 Body weight 58.8 kg Meagan Praisler-Wood BICYCLE COURIER.FERTILIZING MACHINE OPERATOR Work Phone: [facility] 06-03-2024 10:27-0500 Diastolic blood pressure 84 mm[Hg] Meagan Praisler-Wood BICYCLE COURIER.FERTILIZING MACHINE OPERATOR Work Phone: [facility] 06-03-2024 10:27-0500 Heart rate 72 /min Meagan Praisler-Wood BICYCLE COURIER.FERTILIZING MACHINE OPERATOR Work Phone: [facility] 06-03-2024 10:27-0500 Respiratory rate 16 /min Meagan Praisler-Wood BICYCLE COURIER.FERTILIZING MACHINE OPERATOR Work Phone: [facility] 06-03-2024 10:27-0500 SaO2% (BldA) [Mass fraction] 100 % Meagan Praisler-Wood BICYCLE COURIER.FERTILIZING MACHINE OPERATOR Work Phone: [facility] 06-03-2024 10:27-0500 Systolic blood pressure 118 mm[Hg] Meagan Praisler-Wood BICYCLE COURIER.FERTILIZING MACHINE OPERATOR Work Phone: [facility] 05-27-2024 12:12-0500 Body mass index (BMI) [Ratio] 23.26 kg/m2 Gem Reilly BICYCLE COURIER.FERTILIZING MACHINE OPERATOR Work Phone: [facility] 05-27-2024 12:12-0500 Body temperature 97.11 [degF] Gem Reilly BICYCLE COURIER.FERTILIZING MACHINE OPERATOR Work Phone: [facility] 05-27-2024 12:12-0500 Body weight 57.7 kg Gem Reilly BICYCLE COURIER.FERTILIZING MACHINE OPERATOR Work Phone: [facility] 05-27-2024 12:12-0500 Diastolic blood pressure 83 mm[Hg] Gem Reilly BICYCLE COURIER.FERTILIZING MACHINE OPERATOR Work Phone: [facility] 05-27-2024 12:12-0500 Heart rate 79 /min Gem Reilly BICYCLE COURIER.FERTILIZING MACHINE OPERATOR Work Phone: [facility] 05-27-2024 12:12-0500 Respiratory rate 18 /min Gem Reilly BICYCLE COURIER.FERTILIZING MACHINE OPERATOR Work Phone: [facility] 05-27-2024 12:12-0500 SaO2% (BldA) [Mass fraction] 99 % Gem Reilly BICYCLE COURIER.FERTILIZING MACHINE OPERATOR Work Phone: [facility] 05-27-2024 12:12-0500 Systolic blood pressure 112 mm[Hg] Gem Reilly BICYCLE COURIER.FERTILIZING MACHINE OPERATOR Work Phone: [facility] 03-21-2024 11:43-0400 Body mass index (BMI) [Ratio] 22.16 kg/m2 Prudencio Pedro MD Work Phone: [facility] 03-21-2024 11:43-0400 Body temperature 97.3 [degF] Prudencio Pedro MD Work Phone: [facility] 03-21-2024 11:43-0400 Body weight 54.98 kg Prudencio Pedro MD Work Phone: [facility] 03-21-2024 11:43-0400 Diastolic blood pressure 86 mm[Hg] Prudencio Pedro MD Work Phone: [facility] 03-21-2024 11:43-0400 Heart rate 68 /min Prudencio Pedro MD Work Phone: [facility] 03-21-2024 11:43-0400 Respiratory rate 18 /min Prudencio Pedro MD Work Phone: [facility] 03-21-2024 11:43-0400 SaO2% (BldA) [Mass fraction] 96 % Prudencio Pedro MD Work Phone: [facility] 03-21-2024 11:43-0400 Systolic blood pressure 122 mm[Hg] Prudencio Pedro MD Work Phone: [facility] 03-20-2024 09:54-0400 Body mass index (BMI) [Ratio] 22.25 kg/m2 Marcy Pan BICYCLE COURIER.FERTILIZING MACHINE OPERATOR Work Phone: [facility] 03-20-2024 09:54-0400 Body temperature 96.91 [degF] Marcy Pan BICYCLE COURIER.FERTILIZING MACHINE OPERATOR Work Phone: [facility] 03-20-2024 09:54-0400 Body weight 55.2 kg Marcy Pan BICYCLE COURIER.FERTILIZING MACHINE OPERATOR Work Phone: [facility] 03-20-2024 09:54-0400 Diastolic blood pressure 60 mm[Hg] Marcy Pan BICYCLE COURIER.FERTILIZING MACHINE OPERATOR Work Phone: [facility] 03-20-2024 09:54-0400 Heart rate 86 /min Marcy Pan BICYCLE COURIER.FERTILIZING MACHINE OPERATOR Work Phone: [facility] 03-20-2024 09:54-0400 Respiratory rate 16 /min Marcy Pan BICYCLE COURIER.FERTILIZING MACHINE OPERATOR Work Phone: [facility] 03-20-2024 09:54-0400 SaO2% (BldA) [Mass fraction] 99 % Marcy Pan BICYCLE COURIER.FERTILIZING MACHINE OPERATOR Work Phone: [facility] 03-20-2024 09:54-0400 Systolic blood pressure 102 mm[Hg] Marcy Pan BICYCLE COURIER.FERTILIZING MACHINE OPERATOR Work Phone: [facility] 02-27-2024 10:58-0400 Body mass index (BMI) [Ratio] 22.33 kg/m2 Prudencio Pedro MD Work Phone: [facility] 02-27-2024 10:58-0400 Body temperature 97.81 [degF] Prudencio Pedro MD Work Phone: [facility] 02-27-2024 10:58-0400 Body weight 55.4 kg Prudencio Pedro MD Work Phone: [facility] 02-27-2024 10:58-0400 Diastolic blood pressure 64 mm[Hg] Prudencio Pedro MD Work Phone: [facility] 02-27-2024 10:58-0400 Heart rate 101 /min Prudencio Pedro MD Work Phone: [facility] 02-27-2024 10:58-0400 Respiratory rate 18 /min Prudencio Pedro MD Work Phone: [facility] 02-27-2024 10:58-0400 SaO2% (BldA) [Mass fraction] 98 % Prudencio Pedro MD Work Phone: [facility] 02-27-2024 10:58-0400 Systolic blood pressure 110 mm[Hg] Prudencio Pedro MD Work Phone: [facility] 02-13-2024 08:50-0400 Body temperature 97.7 [degF] Diamond Podlogar BICYCLE COURIER.FERTILIZING MACHINE OPERATOR Work Phone: [facility] 02-13-2024 08:50-0400 Diastolic blood pressure 78 mm[Hg] Diamond Podlogar BICYCLE COURIER.FERTILIZING MACHINE OPERATOR Work Phone: [facility] 02-13-2024 08:50-0400 Heart rate 111 /min Diamond Podlogar BICYCLE COURIER.FERTILIZING MACHINE OPERATOR Work Phone: [facility] 02-13-2024 08:50-0400 Respiratory rate 18 /min Diamond Podlogar BICYCLE COURIER.FERTILIZING MACHINE OPERATOR Work Phone: [facility] 02-13-2024 08:50-0400 SaO2% (BldA) [Mass fraction] 97 % Diamond Bright APRN.FERTILIZING MACHINE OPERATOR Work Phone: [facility] 02-13-2024 08:50-0400 Systolic blood pressure 108 mm[Hg] Diamond Bright APRN.FERTILIZING MACHINE OPERATOR Work Phone: [facility] 02-06-2024 09:43-0400 Body mass index (BMI) [Ratio] 22.2 kg/m2 Prudencio Pedro MD Work Phone: [facility] 02-06-2024 09:43-0400 Body temperature 97.3 [degF] Prudencio Pedro MD Work Phone: [facility] 02-06-2024 09:43-0400 Body weight 55.07 kg Prudencio Pedro MD Work Phone: [facility] 02-06-2024 09:43-0400 Diastolic blood pressure 70 mm[Hg] Prudencio Pedro MD Work Phone: [facility] 02-06-2024 09:43-0400 Heart rate 96 /min Prudencio Pedro MD Work Phone: [facility] 02-06-2024 09:43-0400 Respiratory rate 18 /min Prudencio Pedro MD Work Phone: [facility] 02-06-2024 09:43-0400 SaO2% (BldA) [Mass fraction] 97 % Prudencio Pedro MD Work Phone: [facility] 02-06-2024 09:43-0400 Systolic blood pressure 110 mm[Hg] Prudencio Pedro MD Work Phone: [facility] 11-22-2023 14:55-0400 Body mass index (BMI) [Ratio] 22.13 kg/m2 Meagan Ribeiro APRN.FERTILIZING MACHINE OPERATOR Work Phone: [facility] 11-22-2023 14:55-0400 Body temperature 97.39 [degF] Meagan Praisler-Wood BICYCLE COURIER.FERTILIZING MACHINE OPERATOR Work Phone: [facility] 11-22-2023 14:55-0400 Body weight 54.9 kg Meagan Praisler-Wood BICYCLE COURIER.FERTILIZING MACHINE OPERATOR Work Phone: [facility] 11-22-2023 14:55-0400 Diastolic blood pressure 82 mm[Hg] Meagan Praisler-Wood BICYCLE COURIER.FERTILIZING MACHINE OPERATOR Work Phone: [facility] 11-22-2023 14:55-0400 Heart rate 81 /min Meagan Praisler-Wood BICYCLE COURIER.FERTILIZING MACHINE OPERATOR Work Phone: [facility] 11-22-2023 14:55-0400 Respiratory rate 18 /min Meagan Praisler-Wood BICYCLE COURIER.FERTILIZING MACHINE OPERATOR Work Phone: [facility] 11-22-2023 14:55-0400 SaO2% (BldA) [Mass fraction] 98 % Meagan Praisler-Wood BICYCLE COURIER.FERTILIZING MACHINE OPERATOR Work Phone: [facility] 11-22-2023 14:55-0400 Systolic blood pressure 128 mm[Hg] Meagan Praisler-Wood BICYCLE COURIER.FERTILIZING MACHINE OPERATOR Work Phone: [facility] 11-09-2023 09:55-0400 Body height 157.5 cm Pulm Wstr Work Phone: [facility] 11-09-2023 09:55-0400 Body mass index (BMI) [Ratio] 22.86 kg/m2 Pulm Wstr Work Phone: [facility] 11-09-2023 09:55-0400 Body weight 56.7 kg Pulm Wstr Work Phone: [facility] 11-09-2023 09:55-0400 Heart rate 79 /min Pulm Wstr Work Phone: [facility] 11-09-2023 09:55-0400 Respiratory rate 17 /min Pulm Wstr Work Phone: [facility] 11-09-2023 09:55-0400 SaO2% (BldA) [Mass fraction] 99 % Pulm Wstr Work Phone: [facility] 11-09-2023 09:22-0400 Body mass index (BMI) [Ratio] 22.92 kg/m2 Stephenie Fariha PA-C Work Phone: [facility] 11-09-2023 09:22-0400 Body weight 56.7 kg Stephenie Fariha PA-C Work Phone: [facility] 11-09-2023 09:22-0400 Diastolic blood pressure 72 mm[Hg] Stephenie Fariha PA-C Work Phone: [facility] 11-09-2023 09:22-0400 Heart rate 79 /min Stephenie Fariha PA-C Work Phone: [facility] 11-09-2023 09:22-0400 Respiratory rate 17 /min Stephenie Fariha PA-C Work Phone: [facility] 11-09-2023 09:22-0400 SaO2% (BldA) [Mass fraction] 99 % Stephenie Fariha PA-C Work Phone: [facility] 11-09-2023 09:22-0400 Systolic blood pressure 104 mm[Hg] Stephenie Fariha PA-C Work Phone: [facility] 10-24-2023 11:18-0400 Body temperature 97.5 [degF] Pam Athy PA-C Work Phone: [facility] 10-24-2023 11:18-0400 Body weight 55.5 kg Pam Athy PA-C Work Phone: [facility] 10-24-2023 11:18-0400 Diastolic blood pressure 74 mm[Hg] Pam Athy PA-C Work Phone: [facility] 10-24-2023 11:18-0400 Heart rate 98 /min Pam Athy PA-C Work Phone: [facility] 10-24-2023 11:18-0400 Respiratory rate 18 /min Pam Athy PA-C Work Phone: [facility] 10-24-2023 11:18-0400 SaO2% (BldA) [Mass fraction] 97 % Pam Leggettsiena PA-C Work Phone: [facility] 10-24-2023 11:18-0400 Systolic blood pressure 118 mm[Hg] Pam Leggettsiena PA-C Work Phone: [facility] 09-07-2023 10:04-0500 Body height 157.3 cm Diamond [employer] BICYCLE COURIER.FERTILIZING MACHINE OPERATOR Work Phone: [place] [facility] 10:04-0500 Body weight 55.97 kg Diamond Podlogar BICYCLE COURIER.FERTILIZING MACHINE OPERATOR Work Phone: [facility] 09-07-2023 10:04-0500 Diastolic blood pressure 64 mm[Hg] Diamond Podlogar BICYCLE COURIER.FERTILIZING MACHINE OPERATOR Work Phone: [facility] 09-07-2023 10:04-0500 Heart rate 62 /min Diamond Podlogar BICYCLE COURIER.FERTILIZING MACHINE OPERATOR Work Phone: [facility] 09-07-2023 10:04-0500 Respiratory rate 18 /min Diamond Podlogar BICYCLE COURIER.FERTILIZING MACHINE OPERATOR Work Phone: [facility] 09-07-2023 10:04-0500 SaO2% (BldA) [Mass fraction] 98 % Diamond Podlogar BICYCLE COURIER.FERTILIZING MACHINE OPERATOR Work Phone: [facility] 09-07-2023 10:04-0500 Systolic blood pressure 100 mm[Hg] Diamond Podlogar BICYCLE COURIER.FERTILIZING MACHINE OPERATOR Work Phone: [facility] 08-30-2023 12:03-0500 Body height 162.[address] Segundo WILSON Work Phone: [facility] 08-30-2023 12:03-0500 Body mass index (BMI) [Ratio] 21.4 kg/m2 Dr. Segundo WILSON Work Phone: [facility] 08-30-2023 12:03-0500 Body temperature 97 [degF] Dr. Segundo WILSON Work Phone: [facility] 08-30-2023 12:03-0500 Body weight 56.[address] Segundo WILSON Work Phone: [facility] 08-30-2023 12:03-0500 Diastolic blood pressure 85 mm[Hg] Dr. Segundo WILSON Work Phone: [facility] 08-30-2023 12:03-0500 Heart rate 97 /min Dr. Segundo WILSON Work Phone: [facility] 08-30-2023 12:03-0500 Respiratory rate 18 /min Dr. Segundo WILSON Work Phone: [facility] 08-30-2023 12:03-0500 SaO2% (BldA) [Mass fraction] 98 % Dr. Segundo WILSON Work Phone: [facility] 08-30-2023 12:03-0500 Systolic blood pressure 120 mm[Hg] Dr. Segundo WILSON Work Phone: [facility] 06-13-2023 10:03-0500 Body temperature 97.3 [degF] Krislyn Aberegg PA Work Phone: [facility] 06-13-2023 10:03-0500 Body weight 54.88 kg Krislyn Aberegg PA Work Phone: [facility] 06-13-2023 10:03-0500 Diastolic blood pressure 78 mm[Hg] Krislyn Aberegg PA Work Phone: [facility] 06-13-2023 10:03-0500 Heart rate 77 /min Krislyn Aberegg PA Work Phone: [facility] 06-13-2023 10:03-0500 Respiratory rate 18 /min Krislyn Aberegg PA Work Phone: [facility] 06-13-2023 10:03-0500 SaO2% (BldA) [Mass fraction] 100 % Louie MANNING Work Phone: [facility] 06-13-2023 10:03-0500 Systolic blood pressure 106 mm[Hg] Louie MANNING Work Phone: [facility] 03-30-2023 15:34-0400 Body temperature 98.71 [degF] Rob Pendlebury BICYCLE COURIER.FERTILIZING MACHINE OPERATOR Work Phone: [facility] 03-30-2023 15:34-0400 Body weight 54.07 kg [facility] BICYCLE COURIER.FERTILIZING MACHINE OPERATOR Work Phone: [facility] 03-30-2023 15:34-0400 Diastolic blood pressure 88 mm[Hg] Rob Pendlebury BICYCLE COURIER.FERTILIZING MACHINE OPERATOR Work Phone: [facility] 03-30-2023 15:34-0400 Heart rate 84 /min Rob Pendlebury BICYCLE COURIER.FERTILIZING MACHINE OPERATOR Work Phone: [facility] 03-30-2023 15:34-0400 Respiratory rate 18 /min Rob Pendlebury BICYCLE COURIER.FERTILIZING MACHINE OPERATOR Work Phone: [facility] 03-30-2023 15:34-0400 SaO2% (BldA) [Mass fraction] 100 % [facility] BICYCLE COURIER.FERTILIZING MACHINE OPERATOR Work Phone: [facility] 03-30-2023 15:34-0400 Systolic blood pressure 125 mm[Hg] Rbo Pendlebury BICYCLE COURIER.FERTILIZING MACHINE OPERATOR Work Phone: [facility] 03-14-2023 11:35-0400 Body weight 54.88 kg David Brown MD Work Phone: [facility] 03-14-2023 11:35-0400 Diastolic blood pressure 80 mm[Hg] David Brown MD Work Phone: [facility] 03-14-2023 11:35-0400 Heart rate 66 /min David Brown MD Work Phone: [facility] 03-14-2023 11:35-0400 Respiratory rate 15 /min David Brown MD Work Phone: [facility] 03-14-2023 11:35-0400 SaO2% (BldA) [Mass fraction] 100 % David Brown MD Work Phone: [facility] 03-14-2023 11:35-0400 Systolic blood pressure 122 mm[Hg] David Brown MD Work Phone: [facility] 02-16-2023 14:34-0400 Body temperature 97.39 [degF] Pam Athy PA-C Work Phone: [facility] 02-16-2023 14:34-0400 Body weight 55.25 kg Pam Athy PA-C Work Phone: [facility] 02-16-2023 14:34-0400 Diastolic blood pressure 64 mm[Hg] Pam Athy PA-C Work Phone: [facility] 02-16-2023 14:34-0400 Heart rate 87 /min Pam Athy PA-C Work Phone: [facility] 02-16-2023 14:34-0400 Respiratory rate 18 /min Pam Athy PA-C Work Phone: [facility] 02-16-2023 14:34-0400 SaO2% (BldA) [Mass fraction] 99 % Pam Athy PA-C Work Phone: [facility] 02-16-2023 14:34-0400 Systolic blood pressure 100 mm[Hg] Pam Athy PA-C Work Phone: [facility] 11-17-2022 14:32-0400 Body weight 56.97 kg Diamond Bright APRN.FERTILIZING MACHINE OPERATOR Work Phone: [facility] 11-17-2022 14:32-0400 Diastolic blood pressure 88 mm[Hg] Diamond Bright APRN.FERTILIZING MACHINE OPERATOR Work Phone: [facility] 11-17-2022 14:32-0400 Heart rate 86 /min Diamond Podlogar BICYCLE COURIER.FERTILIZING MACHINE OPERATOR Work Phone: [facility] 11-17-2022 14:32-0400 Respiratory rate 18 /min Diamond Podlogar BICYCLE COURIER.FERTILIZING MACHINE OPERATOR Work Phone: [facility] 11-17-2022 14:32-0400 SaO2% (BldA) [Mass fraction] 100 % Diamond Podlogar BICYCLE COURIER.FERTILIZING MACHINE OPERATOR Work Phone: [facility] 11-17-2022 14:32-0400 Systolic blood pressure 128 mm[Hg] Diamond Podlogar BICYCLE COURIER.FERTILIZING MACHINE OPERATOR Work Phone: [facility] 11-05-2022 14:29-0400 Body temperature 98.6 [degF] Meagan Praisler-Wood BICYCLE COURIER.FERTILIZING MACHINE OPERATOR Work Phone: [facility] 11-05-2022 14:29-0400 Body weight 56.06 kg Meagan Praisler-Wood BICYCLE COURIER.FERTILIZING MACHINE OPERATOR Work Phone: [facility] 11-05-2022 14:29-0400 Diastolic blood pressure 72 mm[Hg] Meagan Praisler-Wood BICYCLE COURIER.FERTILIZING MACHINE OPERATOR Work Phone: [facility] 11-05-2022 14:29-0400 Heart rate 84 /min Meagan Praisler-Wood BICYCLE COURIER.FERTILIZING MACHINE OPERATOR Work Phone: [facility] 11-05-2022 14:29-0400 Respiratory rate 18 /min Meagan Praisler-Wood BICYCLE COURIER.FERTILIZING MACHINE OPERATOR Work Phone: [facility] 11-05-2022 14:29-0400 SaO2% (BldA) [Mass fraction] 97 % Meagan Praisler-Wood BICYCLE COURIER.FERTILIZING MACHINE OPERATOR Work Phone: [facility] 11-05-2022 14:29-0400 Systolic blood pressure 112 mm[Hg] Meagan Praisler-Wood BICYCLE COURIER.FERTILIZING MACHINE OPERATOR Work Phone: [facility] 11-01-2022 13:25-0400 Body temperature 97 [degF] Pam Garibay PA-C Work Phone: [facility] 11-01-2022 13:25-0400 Body weight 58.24 kg Pam Athy PA-C Work Phone: [facility] 11-01-2022 13:25-0400 Diastolic blood pressure 80 mm[Hg] Pam Athy PA-C Work Phone: [facility] 11-01-2022 13:25-0400 Heart rate 85 /min Pam Athy PA-C Work Phone: [facility] 11-01-2022 13:25-0400 Respiratory rate 21 /min Pam Athy PA-C Work Phone: [facility] 11-01-2022 13:25-0400 SaO2% (BldA) [Mass fraction] 97 % Pam Athy PA-C Work Phone: [facility] 11-01-2022 13:25-0400 Systolic blood pressure 122 mm[Hg] Pam Athy PA-C Work Phone: [facility] 09-07-2022 11:48-0500 Body temperature 97 [degF] Rob Pendlebury BICYCLE COURIER.FERTILIZING MACHINE OPERATOR Work Phone: [facility] 09-07-2022 11:48-0500 Body weight 56.52 kg Rob Pendlebury BICYCLE COURIER.FERTILIZING MACHINE OPERATOR Work Phone: [facility] 09-07-2022 11:48-0500 Diastolic blood pressure 80 mm[Hg] Rob Pendlebury BICYCLE COURIER.FERTILIZING MACHINE OPERATOR Work Phone: [facility] 09-07-2022 11:48-0500 Heart rate 90 /min Rob Pendlebury BICYCLE COURIER.FERTILIZING MACHINE OPERATOR Work Phone: [facility] 09-07-2022 11:48-0500 Respiratory rate 18 /min Rob Pendlebury BICYCLE COURIER.FERTILIZING MACHINE OPERATOR Work Phone: [facility] 09-07-2022 11:48-0500 SaO2% (BldA) [Mass fraction] 98 % Rob Pendlebury BICYCLE COURIER.FERTILIZING MACHINE OPERATOR Work Phone: [facility] 09-07-2022 11:48-0500 Systolic blood pressure 122 mm[Hg] Rob Chirinos APRN.CNP Work Phone: [facility] 09-02-2022 14:53-0500 Body height 154.9 cm Prudencio Pedro MD Work Phone: [facility] 09-02-2022 14:53-0500 Body temperature 97 [degF] Prudencio Pedro MD Work Phone: [facility] 09-02-2022 14:53-0500 Body weight 56.97 kg Prudencio Pedro MD Work Phone: [facility] 09-02-2022 14:53-0500 Diastolic blood pressure 82 mm[Hg] Prudencio Pedro MD Work Phone: [facility] 09-02-2022 14:53-0500 Heart rate 90 /min Prudencio Pedro MD Work Phone: [facility] 09-02-2022 14:53-0500 Systolic blood pressure 104 mm[Hg] Prudencio Pedro MD Work Phone: [facility] 08-24-2022 12:57-0500 Body height 162.[address] Segundo Pedro Work Phone: [facility] 08-24-2022 12:57-0500 Body mass index (BMI) [Ratio] 21.8 kg/m2 Dr. Segundo Pedro Work Phone: [facility] 08-24-2022 12:57-0500 Body temperature 98 [degF] Dr. Segundo Pedro Work Phone: [facility] 08-24-2022 12:57-0500 Body weight 57.[address] Segundo Pedro Work Phone: [facility] 08-24-2022 12:57-0500 Diastolic blood pressure 73 mm[Hg] Dr. Segundo Pedro Work Phone: [facility] 08-24-2022 12:57-0500 Heart rate 92 /min Dr. Segundo Pedro Work Phone: [facility] 08-24-2022 12:57-0500 Respiratory rate 16 /min Dr. Segundo Pedro Work Phone: [facility] 08-24-2022 12:57-0500 SaO2% (BldA) [Mass fraction] 98 % Dr. Segundo Pedro Work Phone: [facility] 08-24-2022 12:57-0500 Systolic blood pressure 108 mm[Hg] Dr. Segundo Pedro Work Phone: [facility] 08-18-2022 09:17-0500 Body temperature 98.1 [degF] Diamond Podlogar BICYCLE COURIER.FERTILIZING MACHINE OPERATOR Work Phone: [facility] 08-18-2022 09:17-0500 Body weight 57.15 kg Diamond Podlogar BICYCLE COURIER.FERTILIZING MACHINE OPERATOR Work Phone: [facility] 08-18-2022 09:17-0500 Diastolic blood pressure 82 mm[Hg] Diamond Podlogar BICYCLE COURIER.FERTILIZING MACHINE OPERATOR Work Phone: [facility] 08-18-2022 09:17-0500 Heart rate 83 /min Diamond Podlogar BICYCLE COURIER.FERTILIZING MACHINE OPERATOR Work Phone: [facility] 08-18-2022 09:17-0500 Respiratory rate 18 /min Diamond Podlogar BICYCLE COURIER.FERTILIZING MACHINE OPERATOR Work Phone: [facility] 08-18-2022 09:17-0500 SaO2% (BldA) [Mass fraction] 100 % Diamond Podlogar BICYCLE COURIER.FERTILIZING MACHINE OPERATOR Work Phone: [facility] 08-18-2022 09:17-0500 Systolic blood pressure 116 mm[Hg] Diamond Podlogar BICYCLE COURIER.FERTILIZING MACHINE OPERATOR Work Phone: [facility] 08-09-2022 09:21-0500 Body weight 56.34 kg Gem Wilder BICYCLE COURIER.CNM Work Phone: [facility] 08-09-2022 09:21-0500 Diastolic blood pressure 60 mm[Hg] Gem Wilder BICYCLE COURIER.CNM Work Phone: [facility] 08-09-2022 09:21-0500 Systolic blood pressure 90 mm[Hg] Gem Wilder BICYCLE COURIER.CNM Work Phone: [facility] 08-02-2022 09:39-0500 Body height 157.4 cm Diamond Podlogar BICYCLE COURIER.FERTILIZING MACHINE OPERATOR Work Phone: [facility] 08-02-2022 09:39-0500 Body weight 56.79 kg Diamond Podlogar BICYCLE COURIER.FERTILIZING MACHINE OPERATOR Work Phone: [facility] 08-02-2022 09:39-0500 Diastolic blood pressure 78 mm[Hg] Diamond Podlogar BICYCLE COURIER.FERTILIZING MACHINE OPERATOR Work Phone: [facility] 08-02-2022 09:39-0500 Heart rate 70 /min Diamond Podlogar BICYCLE COURIER.FERTILIZING MACHINE OPERATOR Work Phone: [facility] 08-02-2022 09:39-0500 Respiratory rate 16 /min Diamond Podlogar BICYCLE COURIER.FERTILIZING MACHINE OPERATOR Work Phone: [facility] 08-02-2022 09:39-0500 SaO2% (BldA) [Mass fraction] 100 % Diamond Podlogar BICYCLE COURIER.FERTILIZING MACHINE OPERATOR Work Phone: [facility] 08-02-2022 09:39-0500 Systolic blood pressure 124 mm[Hg] Diamond Podlogar BICYCLE COURIER.FERTILIZING MACHINE OPERATOR Work Phone: [facility] 07-30-2022 08:21-0500 Body temperature 97.11 [degF] Kathleen Maurice BICYCLE COURIER.FERTILIZING MACHINE OPERATOR Work Phone: [facility] 07-30-2022 08:21-0500 Body weight 56.97 kg Kathleen Maurice BICYCLE COURIER.FERTILIZING MACHINE OPERATOR Work Phone: [facility] 07-30-2022 08:21-0500 Diastolic blood pressure 72 mm[Hg] Kathleen Maurice BICYCLE COURIER.FERTILIZING MACHINE OPERATOR Work Phone: [facility] 07-30-2022 08:21-0500 Heart rate 90 /min Kathleen Maurice BICYCLE COURIER.FERTILIZING MACHINE OPERATOR Work Phone: [facility] 07-30-2022 08:21-0500 Respiratory rate 18 /min Kathleen Maurice BICYCLE COURIER.FERTILIZING MACHINE OPERATOR Work Phone: [facility] 07-30-2022 08:21-0500 SaO2% (BldA) [Mass fraction] 98 % Kathleen Maurice BICYCLE COURIER.FERTILIZING MACHINE OPERATOR Work Phone: [facility] 07-30-2022 08:21-0500 Systolic blood pressure 114 mm[Hg] Kathleen Maurice BICYCLE COURIER.FERTILIZING MACHINE OPERATOR Work Phone: [facility] 07-20-2022 09:15-0500 Body height 160 cm Pulm Wstr Work Phone: [facility] 07-20-2022 09:15-0500 Body weight 55.79 kg Pulm Wstr Work Phone: [facility] 07-20-2022 09:15-0500 Heart rate 90 /min Pulm Wstr Work Phone: [facility] 07-20-2022 09:15-0500 Respiratory rate 14 /min Pulm Wstr Work Phone: [facility] 07-20-2022 09:15-0500 SaO2% (BldA) [Mass fraction] 100 % Pulm Wstr Work Phone: [facility] 07-06-2022 16:29-0500 Body temperature 97.39 [degF] Chnatel Shah BICYCLE COURIER.FERTILIZING MACHINE OPERATOR Work Phone: [facility] 07-06-2022 16:29-0500 Body weight 56.25 kg Chantel Shah BICYCLE COURIER.FERTILIZING MACHINE OPERATOR Work Phone: [facility] 07-06-2022 16:29-0500 Diastolic blood pressure 68 mm[Hg] Chantel Shah BICYCLE COURIER.FERTILIZING MACHINE OPERATOR Work Phone: [facility] 07-06-2022 16:29-0500 Heart rate 96 /min Chantel Shah BICYCLE COURIER.FERTILIZING MACHINE OPERATOR Work Phone: [facility] 07-06-2022 16:29-0500 Respiratory rate 16 /min Chantel Shah BICYCLE COURIER.FERTILIZING MACHINE OPERATOR Work Phone: [facility] 07-06-2022 16:29-0500 SaO2% (BldA) [Mass fraction] 98 % Chantel Shah BICYCLE COURIER.FERTILIZING MACHINE OPERATOR Work Phone: [facility] 07-06-2022 16:29-0500 Systolic blood pressure 110 mm[Hg] Chantel Shah BICYCLE COURIER.FERTILIZING MACHINE OPERATOR Work Phone: [facility] 07-05-2022 12:06-0500 Body temperature 98.01 [degF] Diamond Podlogar BICYCLE COURIER.FERTILIZING MACHINE OPERATOR Work Phone: [facility] 07-05-2022 12:06-0500 Body weight 56.25 kg Diamond Podlogar BICYCLE COURIER.FERTILIZING MACHINE OPERATOR Work Phone: [facility] 07-05-2022 12:06-0500 Diastolic blood pressure 92 mm[Hg] Diamond Podlogar BICYCLE COURIER.FERTILIZING MACHINE OPERATOR Work Phone: [facility] 07-05-2022 12:06-0500 Heart rate 97 /min Diamond Podlogar BICYCLE COURIER.FERTILIZING MACHINE OPERATOR Work Phone: [facility] 07-05-2022 12:06-0500 Respiratory rate 16 /min Diamond Podlogar BICYCLE COURIER.FERTILIZING MACHINE OPERATOR Work Phone: [facility] 07-05-2022 12:06-0500 SaO2% (BldA) [Mass fraction] 98 % Diamond Podlogar BICYCLE COURIER.FERTILIZING MACHINE OPERATOR Work Phone: [facility] 07-05-2022 12:06-0500 Systolic blood pressure 118 mm[Hg] Diamond Podlogar BICYCLE COURIER.FERTILIZING MACHINE OPERATOR Work Phone: [facility] 06-29-2022 16:05-0500 Body temperature 96.8 [degF] Prudencio Pedro MD Work Phone: [facility] 06-29-2022 16:05-0500 Body weight 56.16 kg Prudencio Pedro MD Work Phone: [facility] 06-29-2022 16:05-0500 Diastolic blood pressure 66 mm[Hg] Prudencio Pedro MD Work Phone: [facility] 06-29-2022 16:05-0500 Heart rate 90 /min Prudencio Pedro MD Work Phone: [facility] 06-29-2022 16:05-0500 Respiratory rate 16 /min Prudencio Pedro MD Work Phone: [facility] 06-29-2022 16:05-0500 SaO2% (BldA) [Mass fraction] 99 % Prudencio Pedro MD Work Phone: [facility] 06-29-2022 16:05-0500 Systolic blood pressure 104 mm[Hg] Prudencio Pedro MD Work Phone: [facility] 04-09-2022 11:39-0400 Body temperature 97.59 [degF] Diamond Podlogar BICYCLE COURIER.FERTILIZING MACHINE OPERATOR Work Phone: [facility] 04-09-2022 11:39-0400 Body weight 53.71 kg Diamond Podlogar BICYCLE COURIER.FERTILIZING MACHINE OPERATOR Work Phone: [facility] 04-09-2022 11:39-0400 Diastolic blood pressure 90 mm[Hg] Diamond Podlogar BICYCLE COURIER.FERTILIZING MACHINE OPERATOR Work Phone: [facility] 04-09-2022 11:39-0400 Heart rate 92 /min Diamond Podlogar BICYCLE COURIER.FERTILIZING MACHINE OPERATOR Work Phone: [facility] 04-09-2022 11:39-0400 Respiratory rate 18 /min Diamond Podlogar BICYCLE COURIER.FERTILIZING MACHINE OPERATOR Work Phone: [facility] 04-09-2022 11:39-0400 SaO2% (BldA) [Mass fraction] 100 % Diamond Podlogar BICYCLE COURIER.FERTILIZING MACHINE OPERATOR Work Phone: [facility] 04-09-2022 11:39-0400 Systolic blood pressure 112 mm[Hg] Diamond Podlogar BICYCLE COURIER.FERTILIZING MACHINE OPERATOR Work Phone: [facility] 03-18-2022 11:26-0400 Diastolic blood pressure 69 mm[Hg] [facility] Work Phone: 03-18-2022 11:26-0400 Heart rate 81 /min [facility] Work Phone: 03-18-2022 11:26-0400 Respiratory rate 15 /min [facility] Work Phone: 03-18-2022 11:26-0400 SaO2% (BldA) [Mass fraction] 98 % [facility] Work Phone: 03-18-2022 11:26-0400 Systolic blood pressure 127 mm[Hg] [facility] Work Phone: 03-18-2022 09:48-0400 Body height 162.56 cm [facility] Work Phone: 03-18-2022 09:48-0400 Body mass index (BMI) [Ratio] 20 kg/m2 [facility] Work Phone: 03-18-2022 09:48-0400 Body temperature 97.9 [degF] [facility] Work Phone: 03-18-2022 09:48-0400 Body weight 53.07 kg [facility] Work Phone: 02-18-2022 10:00-0400 Body weight 53.16 kg Prudencio Pedro MD Work Phone: [facility] 02-18-2022 10:00-0400 Diastolic blood pressure 76 mm[Hg] Prudencio Pedro MD Work Phone: [facility] 02-18-2022 10:00-0400 Heart rate 94 /min Prudencio Pedro MD Work Phone: [facility] 02-18-2022 10:00-0400 Respiratory rate 18 /min Prudencio Pedro MD Work Phone: [facility] 02-18-2022 10:00-0400 SaO2% (BldA) [Mass fraction] 100 % Prudencio Pedro MD Work Phone: [facility] 02-18-2022 10:00-0400 Systolic blood pressure 116 mm[Hg] Prudencio Pedro MD Work Phone: [facility] 01-26-2022 11:03-0400 Body temperature 97.9 [degF] Diamond Podlogar BICYCLE COURIER.FERTILIZING MACHINE OPERATOR Work Phone: [facility] 01-26-2022 11:03-0400 Body weight 52.44 kg Diamond Podlogar BICYCLE COURIER.FERTILIZING MACHINE OPERATOR Work Phone: [facility] 01-26-2022 11:03-0400 Diastolic blood pressure 86 mm[Hg] Diamond Podlogar BICYCLE COURIER.FERTILIZING MACHINE OPERATOR Work Phone: [facility] 01-26-2022 11:03-0400 Heart rate 85 /min Diamond Podlogar BICYCLE COURIER.FERTILIZING MACHINE OPERATOR Work Phone: [facility] 01-26-2022 11:03-0400 Respiratory rate 16 /min Diamond Podlogar BICYCLE COURIER.FERTILIZING MACHINE OPERATOR Work Phone: [facility] 01-26-2022 11:03-0400 SaO2% (BldA) [Mass fraction] 97 % Diamond Podlogar BICYCLE COURIER.FERTILIZING MACHINE OPERATOR Work Phone: [facility] 01-26-2022 11:03-0400 Systolic blood pressure 104 mm[Hg] Diamond Podlogar BICYCLE COURIER.FERTILIZING MACHINE OPERATOR Work Phone: [facility] Encounters Encounter Date Encounter Type Care Provider Facility Start: 05-27-2025 ambulatory Juvencio Sepulveda [facility]ity[facility] Start: 05-27-2025 End: 05-27-2025 ambulatory Juvencio Colon Facility:[facility] Start: 05-13-2025 End: 05-13-2025 ambulatory Fina Iraheta [facility] Start: 05-13-2025 End: 05-13-2025 ambulatory Epi Mcdonald Facility:[facility] Start: 05-02-2025 End: 05-02-[address] Juvencio Colon MD -[facility] Work Phone: Start: 05-02-2025 End: 05-02-[address] Fina Iraheta MD Work Phone: -[facility] Start: 04-18-2025 End: 04-18-[address] Fina Iraheta MD Work Phone: -[facility] Start: 04-18-2025 End: 04-18-2025 Patient encounter procedure Gem Ungerer [employer] -[facility] Work Phone: Start: 04-18-2025 End: 04-18-2025 ambulatory Gem Ungerer Facility:[facility] Start: 04-04-2025 ambulatory Stephenie Blancas ty:[facility] Start: 03-15-2025 End: 03-15-2025 Emergency department patient visit Dr. Fina Iraheta MD Work Phone: -Emergency Department Work Phone: Start: 03-15-2025 End: 03-15-2025 Emergency department patient visit Dr. Fina Iraheta MD Work Phone: -Emergency Department Work Phone: Start: 03-15-2025 End: 03-15-2025 Office outpatient visit 40 minutes Rubina Campos MD Work Phone: [facility] Comment on above: Nausea (Primary Dx); Flatulence; Epigastric pain Start: 03-15-2025 End: 03-16-2025 ambulatory FINA IRAHETA Facility:[facility] Start: 03-11-2025 End: 03-11-2025 Patient encounter procedure Gem Vargaschasidyr [employer] -[facility] Work Phone: Start: 03-11-2025 End: 03-11-[address] Fina Iraheta MD Work Phone: -[facility] Start: 03-08-2025 End: 03-29-2025 Telephone encounter Ayad Metcalf BICYCLE COURIER.FERTILIZING MACHINE OPERATOR Work Phone: [facility] Comment on above: Refill Request Start: 03-08-2025 End: 03-08-2025 Emergency department patient visit Dr. Fina Iraheta MD Work Phone: -Emergency Department Work Phone: Start: 03-08-2025 End: 03-08-2025 Patient encounter procedure Ginny Jaimes BICYCLE COURIER.FERTILIZING MACHINE OPERATOR Work Phone: [facility] Comment on above: Cough with sputum (P rimary Dx); Right lower quadrant abdominal pain Start: 03-08-2025 End: 03-08-2025 ambulatory GINNY JAIMES Facility:[facility] Start: 02-15-2025 End: 02-15-[address] Fina Iraheta MD -[facility] Work Phone: Start: 02-15-2025 End: 02-15-[address] Fina Iraheta MD Work Phone: -[facility] Start: 02-07-2025 End: 02-07-2025 Patient encounter procedure Lalo Raucsh [place] -[facility] Work Phone: Start: 02-07-2025 End: 02-07-[address] Fina Iraheta MD Work Phone: -[facility] Start: 02-07-2025 End: 02-07-2025 Emergency department patient visit Dr. Fina Iraheta MD Work Phone: -Emergency Department Work Phone: Start: 12-28-2024 End: 12-28-2024 Patient encounter procedure Chantel Shah APRN.FERTILIZING MACHINE OPERATOR Work Phone: [facility] Comment on above: Mouth pain (Primary Dx) Start: 12-28-2024 End: 12-28-2024 ambulatory CHANTEL SHAH Facility:[facility] Start: 12-13-2024 End: 12-13-2024 Patient encounter procedure Meagan Ribeiro FERTILIZING MACHINE OPERATOR Work Phone: [facility] Comment on above: COPD with exacerbati on (HCC) (Primary Dx); Tobacco use Start: 12-13-2024 End: 12-13-2024 ambulatory MEAGAN RIBEIRO Facility:[facility] Start: 12-04-2024 End: 12-04-2024 Patient encounter procedure Louie MANNING Work Phone: [facility] Comment on above: Chronic obstructive pulmonary disease with (acute) exacerbation (HCC); Acute upper respiratory infection Start: 12-04-2024 End: 12-04-2024 ambulatory FINA IRAHETA Facility:[facility] Start: 11-28-2024 End: 11-28-2024 Patient encounter procedure aLwrence MANNING -[facility] Work Phone: Start: 11-28-2024 End: 11-28-[address] Hung Cai MD Work Phone: [facility] Work Phone: Start: 11-26-2024 End: 11-26-2024 Emergency department patient visit Dr. Hung Cai MD Work Phone: -Emergency Department Work Phone: Start: 11-19-2024 ambulatory Fina Verduzcoe Facili ty:[facility] Start: 11-07-2024 End: 11-07-2024 ambulatory FINA B MYRTLE Facility:[facility] Start: 11-07-2024 End: 11-07-2024 Patient encounter procedure Julieta Poole DARIUS.FERTILIZING MACHINE OPERATOR Work Phone: [facility] Comment on above: Viral URI (Primary D x); Paresthesias in right hand Start: 11-05-2024 End: 11-05-[address] Fina Iraheta MD -Outpatient Breast Imaging Work Phone: Start: 11-05-2024 End: 11-05-2024 ambulatory [facility] Facility:[facility] Start: 10-04-2024 End: 10-04-2024 Patient encounter procedure Lawrence MANNING -[facility] Work Phone: Start: 10-04-2024 End: 10-04-2024 ambulatory [facility] Start: 10-04-2024 End: 10-04-[address] Hung Cai MD Work Phone: [facility] Work Phone: Start: 10-04-2024 End: 10-04-[address] Lucas Marrufo MD -Laboratory Work Phone: Start: 10-04-2024 End: 10-04-2024 ambulatory [facility] Facility:[facility] Start: 09-28-2024 End: 09-28-2024 Follow-up encounter Julieta Poole APRN.[facility] Work Phone: [facility] Start: 09-27-2024 End: 09-27-2024 ambulatory [facility] Facility:[facility] Start: 09-27-2024 End: 09-27-2024 Patient encounter procedure Louie MANNING Work Phone: [facility] Comment on above: URI, acute (Primary Dx) Start: 09-25-2024 End: 09-25-2024 Emergency department patient visit Dr. Hung Cai MD Work Phone: -Emergency Department Work Phone: Start: 09-25-2024 End: 09-25-[address] Hung Cai MD Work Phone: [facility] Work Phone: Start: 09-25-2024 End: 09-25-[address] Epi Mcdonald MD -Laboratory Work Phone: Start: 09-25-2024 End: 09-25-2024 ambulatory Epi Mcdonald Facility:[facility] Start: 09-18-2024 End: 09-18-2024 Subsequent hospital visit by physician Diagnostic Mammo [facility] Mammogram Start: 09-18-2024 ambulatory FINA Sepulveda lity:[facility] Start: 09-14-2024 End: 09-14-[address] Hung Cai MD Work Phone: [facility] Work Phone: Start: 09-14-2024 End: 09-14-[address] Fina Iraheta MD -Radiology, [facility] Work Phone: Start: 09-14-2024 End: 09-14-[address] Fina Iraheta MD -[facility] Work Phone: Start: 09-14-2024 End: 09-14-2024 ambulatory [facility] Start: 09-14-2024 End: 09-14-2024 ambulatory [facility] Facility:[facility] Start: 09-12-2024 End: 09-12-[address] Hung Cai MD Work Phone: [facility] Work Phone: Start: 09-12-2024 End: 09-12-[address] Fina Iraheta MD -Laboratory, [place] Start: 09-11-2024 End: 09-11-2024 Patient encounter procedure Namrata FERNÁNDEZ -[facility] Work Phone: Start: 09-11-2024 End: 09-12-[address] Hung Cai MD Work Phone: [facility] Work Phone: Start: 09-11-2024 End: 09-11-2024 ambulatory [facility] Facility:[facility] Start: 08-29-2024 Encounter for genera l adult medical examination without abnormal findings [facility] Start: 08-22-2024 End: 08-22-2024 Orders Only Ayad Metcalf APRN.FERTILIZING MACHINE OPERATOR Work Phone: Pulmonary Medicine Comment on above: Patient Question Start: 08-20-2024 End: 08-21-2024 Telephone encounter Ayad Metcalf BICYCLE COURIER.FERTILIZING MACHINE OPERATOR Work Phone: Pulmonary Medicine Comment on above: Results Start: 08-17-2024 End: 08-17-2024 ambulatory [facility] Facility:[facility] Start: 08-17-2024 End: 08-17-2024 Patient encounter procedure Julieta Poole BICYCLE COURIER.FERTILIZING MACHINE OPERATOR Work Phone: [facility] Comment on above: Impacted cerumen of right ear (Primary Dx) Start: 08-16-2024 End: 01-25-2025 Telephone encounter Diamond Bright BICYCLE COURIER.FERTILIZING MACHINE OPERATOR Work Phone: [facility] [place] Comment on above: Orders Start: 08-16-2024 End: 08-16-2024 ambulatory [facility] Facility:[facility] Start: 08-13-2024 End: 08-13-[address] Fina Iraheta MD -Laboratory, [place] Start: 08-13-[address] Veronica Cai MD Work Phone: [facility] Start: 08-13-2024 End: 08-13-[address] Fina Iraheta MD -[facility] Work Phone: Start: 08-13-2024 End: 08-13-[address] Fina Iraheta MD [facility] Start: 08-13-2024 End: 08-13-2024 ambulatory [facility] Start: 08-13-2024 End: 08-13-2024 ambulatory [facility] Facility:[facility] Start: 08-07-2024 End: 08-07-2024 Telephone encounter Ayad Metcalf BICYCLE COURIER.FERTILIZING MACHINE OPERATOR Work Phone: Pulmonary Medicine Comment on above: Medication Question Start: 08-01-2024 End: 08-01-2024 Emergency department patient visit Dr. Hung Cai MD -Emergency Department Work Phone: Start: 08-01-2024 End: 08-01-2024 ambulatory Jody Garcia RN NURSE DAM TENDER ASSISTANT Comment on above: Medication Question Start: 07-31-2024 End: 07-31-2024 Subsequent hospital visit by physician Codey [facility] Work Phone: Radiology Comment on above: Productive cough [R0 5.8] Start: 07-31-2024 End: 07-31-2024 Patient encounter procedure Mone Boyle BICYCLE COURIER.FERTILIZING MACHINE OPERATOR Work Phone: OB/Gynecology Comment on above: Vaginal discharge (P rimary Dx); Urinary frequency Start: 07-31-2024 End: 07-31-2024 ambulatory SELF Facility:[facility] Start: 07-31-2024 End: 07-31-2024 Office outpatient visit 15 minutes Ayad Metcalf BICYCLE COURIER.FERTILIZING MACHINE OPERATOR Work Phone: Pulmonary Medicine Comment on above: [...] Update Start: 06-03-2024 End: 06-03-2024 ambulatory FINA IRAEHTA Facility:[facility] Start: 06-03-2024 End: 06-03-2024 Patient encounter procedure Meagan Ribeiro BICYCLE COURIER.FERTILIZING MACHINE OPERATOR Work Phone: [facility] Comment on above: Cat scratch (Primary Dx); Phlegm in throat Start: 05-28-2024 End: 05-28-2024 Telephone encounter Rob Chirinos APRN.FERTILIZING MACHINE OPERATOR Work Phone: [facility] Comment on above: Results Start: 05-27-2024 End: 05-27-2024 ambulatory FINA IRAHETA Facility:[facility] Start: 05-27-2024 End: 05-27-2024 Patient encounter procedure Gem Reilly BICYCLE COURIER.FERTILIZING MACHINE OPERATOR Work Phone: [facility] Comment on above: Respiratory infectio [...] End: 03-27-2024 Patient encounter procedure Rob Chirinos APRN.FERTILIZING MACHINE OPERATOR Work Phone: [facility] Comment on above: Procedure not celestina d out (Primary Dx) Start: 03-22-2024 End: 03-22-2024 Telephone encounter No Pcp BICYCLE COURIER [facility] Comment on above: Patient Question Start: 03-21-2024 End: 03-21-2024 Telephone encounter Prudencio Pedro MD Work Phone: [facility] Comment on above: Question Patient Question surgical clearance f orm Start: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 6 MO FU RIGHT/DUE FOR SHARMIN Start: 09-07-2024 Annual PCP Team Long Line Teamster violette Disease Visit Annual PCP Team Chronic Disease Visit [facility] Start: 09-07-2024 Covid-19 Vaccine () Covid-19 Vaccine () [facility] Comment on above: Postponed from 03/18 (Declined at this time) Start: 09-07-2024 Depression Screening Depression Scre ening [facility] Start: 09-07-2024 End: 09-07-2024 Patient encounter procedure 09/07/2024 10:00 AM EST Office Visit [facility] [place] [address] [place] [address] Prudencio Pedro MD [address] [place] [address] Annual Exam/colonoscopy due [facility] [place] Comment on above: Annual Exam/colonosc opy due LS Start: 08-14-2024 End: 08-14-2024 Patient encounter procedure 08/14/2024 8:00 AM EST Office Visit Pulmonary Medicine [address] [place] [address] Ayad Metcalf, BICYCLE COURIER.FERTILIZING MACHINE OPERATOR [address] [place] [address] Follow up Pulmonary Medicine Comment on above: Follow up Start: 08-01-2024 [facility] Start: 07-27-2024 End: 07-27-2024 Patient encounter procedure 07/27/2024 1:00 PM EST Office Visit Pulmonary Medicine [address] [place], [place] [address] Ayad Metcalf APRN.FERTILIZING MACHINE OPERATOR [address] [place] [address] Follow up Pulmonary Medicine Comment on above: Follow up Start: 07-04-2024 End: 07-04-2024 Patient encounter procedure 07/04/2024 3:30 PM EST Office Visit Pulmonary Medicine [address] [place] [address] Stephenie Arrieta, PA-C [address] [facility] [place] [address] 8 mo fu Pulmonary Medicine Comment on above: 8 mo fu Start: 05-01-2024 End: 05-01-2024 Patient encounter procedure 05/01/2024 11:40 AM EDT Office Visit [facility] [address] [place] [address] Prudencio Pedro MD [address] [place] [address] 2 month follow up [facility] Comment on above: 2 month follow up Start: 04-18-2024 Annual PCP Team Long Line Teamster violette Disease Visit Annual PCP Team Chronic Disease Visit [facility] Start: 03-28-2024 End: 03-28-2024 Patient encounter procedure 03/28/2024 8:40 AM EDT Office Visit [facility] [address] [place] [address] Prudencio Pedro MD [address] [place] [address] Pre Op [facility] Comment on above: Pre Op Start: 03-18-2024 Covid-19 Vaccine ( season) Covid-19 Vaccine ( season) [facility] Start: 03-18-2024 Covid-19 Vaccine ( season) Covid-19 Vaccine ( season) [facility] Start: 03-18-2024 Influenza vaccination [facility] Start: 03-14-2024 End: 06-13-2024 CBC W Auto Differential panel - Blood [facility] Work Phone: Comment on above: Expected: 03/14/2024 , Expires: 06/13/2024 Start: 03-14-2024 End: 06-13-2024 Comprehensive metabolic 2000 panel - Serum or Plasma [facility] Comment on above: Expected: 03/14/2024 , Expires: 06/13/2024 Start: 03-12-2024 HPV TESTING HPV TESTING [facility] Start: 03-12-2024 PAP TESTING PAP TESTING [facility] Start: 03-12-2024 Screening for malign ant neoplasm of cervix [facility] Start: 03-02-2024 End: 03-02-2024 Patient encounter procedure 03/02/2024 9:40 AM EDT Office Visit [facility] [address] [place] [id number] Prudencio Pedro MD [address] [place] [id number] wound dressing she can not do herself, to painful wet to dry dressing, and wound center closed until tuesday [facility] Comment on above: wound dressing she c an not do herself, to painful wet to dry dressing, and wound center closed until tuesday Start: 03-01-2024 ANNUAL PCP TEAM DRAPERY ROD ASSEMBLER VIOLETTE DISEASE VISIT ANNUAL PCP TEAM CHRONIC DISEASE VISIT [facility] Start: 02-27-2024 End: 02-27-2024 Patient encounter procedure [facility] Comment on above: 2 week follow up/[facility] injury Hospital follow updi scharged 02/21/24 Start: 02-15-2024 End: 02-15-2024 Patient encounter procedure 02/15/2024 11:00 AM EDT Office Visit Pulmonary Medicine [address] [place] [id number] Stephenie Arrieta PA-C [address] [place] [phone] 3 mo fu Pulmonary Medicine Comment on above: 3 mo fu Start: 02-13-2024 End: 02-13-2024 Patient encounter procedure 02/13/2024 9:00 AM EDT Office Visit [facility] [address] [place] [address] PodDiamond del toro APRN.FERTILIZING MACHINE OPERATOR [address] [place] [address] follow up foot from 02/05 [facility] [place] Comment on above: follow up foot from 02/05 Start: 01-15-2024 Influenza vaccination Influenza Vacc ine (#1) [facility] Comment on above: Postponed from 03/18 (Declined at this time) Start: 11-22-2023 End: 11-22-2023 Patient encounter procedure Mammogram Comment on above: Comp- bilateral pt d ue for her screening also 6 mo call back from 05/18/2023 6 mo call back from 05/18/2023 Start: 11-18-2023 ANNUAL PCP TEAM DRAPERY ROD ASSEMBLER VIOLETTE DISEASE VISIT ANNUAL PCP TEAM CHRONIC DISEASE VISIT [facility] Start: 11-14-2023 End: 11-14-2023 Patient encounter procedure 11/14/2023 10:30 AM EDT Appointment Ambulatory Surgery [address] [place] [address] Oskar Taylor MD [address] [place] [address] Screening for colon cancer [Z12.11] Ambulatory Surgery Comment on above: Screening for colon cancer [Z12.11] Start: 09-13-2023 Mammography [facility] Start: 09-13-2023 Screening for malign ant neoplasm of breast Mammogram Screening [facility] Start: 09-02-2023 ANNUAL PCP TEAM DRAPERY ROD ASSEMBLER VIOLETTE DISEASE VISIT ANNUAL PCP TEAM CHRONIC DISEASE VISIT [facility] Start: 07-18-2023 Behavioral Health Screening Behavioral Health Screening [facility] Start: 07-18-2023 Depression Assessment Depression Ass essment [facility] Start: 07-18-2023 zzBehavioral Health Screening zzBehavioral Health Screening [facility] Start: 04-20-2023 End: 11-18-2023 ANALIA DIAGNOSTIC RIGHT ANALIA DIAGNOSTIC RIGHT Radiology Routine Abnormal mammogram Expected: 04/20/2023, Expires: 11/18/2023 [facility] Work Phone: Comment on above: Expected: 04/20/2023 , Expires: 11/18/2023 Start: 04-20-2023 End: 11-18-2023 US BREAST LTD RIGHT US BREAST LTD RIGHT Radiology Routine Abnormal mammogram Expected: 04/20/2023, Expires: 11/18/2023 [facility] Work Phone: Comment on above: Expected: 04/20/2023 , Expires: 11/18/2023 Start: 03-18-2023 Covid-19 Vaccine () Covid-19 Vaccine () [facility] Start: 03-18-2023 Influenza vaccination [facility] Start: 02-16-2023 End: 04-18-2023 Bacteria identified in Urine by Culture [facility] Work Phone: Comment on above: Expected: 02/16/2023 , Expires: 04/18/2023 Start: 11-17-2022 End: 01-17-2023 25-hydroxyvitamin D3 [Mass/volume] in Serum or Plasma [facility] Work Phone: Comment on above: Expected: 11/17/2022 , Expires: 01/17/2023 Start: 09-07-2022 End: 09-21-2022 Influenza virus A and B RNA and SARS-CoV-2 (COVID-19) N gene panel - Respiratory specimen by TESHA with probe detection [facility] Work Phone: Comment on above: Expected: 09/07/2022 , Expires: 09/21/2022 Start: 08-25-2022 Patient referral [facility] Work Phone: Start: 08-24-2022 COVID-19 VACCINE (6 - Pfizer risk series) COVID-19 VACCINE (6 - Pfizer risk series) [facility] Start: 08-04-2022 End: 10-04-2022 25-hydroxyvitamin D3 [Mass/volume] in Serum or Plasma VITAMIN D 25 HYDROXY Lab Routine Vitamin D deficiency Expected: 08/04/2022, Expires: 10/04/2022 [facility] Work Phone: Comment on above: Expected: 08/04/2022 , Expires: 10/04/2022 Start: 08-02-2022 End: 10-02-2022 25-hydroxyvitamin D3 [Mass/volume] in Serum or Plasma [facility] Work Phone: Comment on above: Expected: 08/02/2022 , Expires: 10/02/2022 Start: 08-02-2022 End: 10-02-2022 Comprehensive metabolic 2000 panel - Serum or Plasma [facility] Work Phone: Comment on above: Expected: 08/02/2022 , Expires: 10/02/2022 Start: 08-02-2022 End: 10-02-2022 Ferritin [Mass/volume] in Serum or Plasma [facility] Work Phone: Comment on above: Expected: 08/02/2022 , Expires: 10/02/2022 Start: 08-02-2022 End: 10-02-2022 Hemoglobin A1c in Blood [facility] Work Phone: Comment on above: Expected: 08/02/2022 , Expires: 10/02/2022 Start: 08-02-2022 End: 10-02-2022 Hepatitis C virus Ab [Presence] in Serum [facility] Work Phone: Comment on above: Expected: 08/02/2022 , Expires: 10/02/2022 Start: 08-02-2022 End: 10-02-2022 Iron and Iron binding capacity panel - Serum or Plasma [facility] Work Phone: Comment on above: Expected: 08/02/2022 , Expires: 10/02/2022 Start: 08-02-2022 End: 10-02-2022 Thyrotropin [Units/volume] in Serum or Plasma [facility] Work Phone: Comment on above: Expected: 08/02/2022 , Expires: 10/02/2022 Start: 07-18-2022 DEPRESSION ASSESSMENT DEPRESSION ASS ESSMENT [facility] Start: 03-18-2022 Influenza vaccination INFLUENZA (#1) [facility] Start: 01-26-2022 Procedure [facility] Work Phone: Start: 01-24-2022 COVID-19 VACCINE (5 - Booster for Pfizer series) COVID-19 VACCINE (5 - Booster for Pfizer series) [facility] Start: 11-19-2021 COVID-19 VACCINE (5 - Booster for Pfizer series) COVID-19 VACCINE (5 - Booster for Pfizer series) [facility] Start: 07-18-2021 DEPRESSION ASSESSMENT DEPRESSION ASS ESSMENT [facility] Start: 04-24-2021 PNEUMOCOCCAL (3 - PP SV23 if available, else PCV20) PNEUMOCOCCAL (3 - PPSV23 if available, else PCV20) [facility] Start: 04-24-2021 PNEUMOCOCCAL (3 - PP SV23 or PCV20) PNEUMOCOCCAL (3 - PPSV23 or PCV20) [facility] Start: 05-10-2020 Adult depression screening assessment DEPRESSION SCREENING [facility] Start: 03-12-2020 Mammography MAMMOGRAM [facility] Start: 03-12-2020 Screening for malign ant neoplasm of cervix Cervical Cancer Screening [facility] Start: 01-08-2018 Influenza vaccination [facility] [facility] Start: 01-08-2018 Screening for malign ant neoplasm of lung Lung Cancer Screening [facility] Start: 01-08-2013 COLOGUARD (FIT-DNA) COLOGUARD (FIT-D NA) [facility] Start: 01-08-2013 Colonoscopy COLONOSCOPY [facility] Start: 01-08-2013 COLORECTAL CANCER SCREENING COLORECTAL CANCER SCREENING [facility] Start: 01-08-[address] COLONOGRAPHY [facility] Start: 01-08-2013 DIABETES SCREEN DIABETES SCREEN [facility] Start: 01-08-2013 FECAL OCCULT BLOOD FECAL OCCULT BLOO D [facility] Start: 01-08-2013 LIPID SCREEN LIPID SCREEN [facility] Start: 01-08-2013 Screening for malign ant neoplasm of colon [facility] Start: 01-08-2013 SIGMOIDOSCOPY SIGMOIDOSCOPY [facility] Start: 01-08-1998 Zoledronic acid therapy ALPHA- 1 ANTITRYPSIN DEFICIENCY SCREENING [facility] Start: 01-08-1987 HEPATITIS A (1 of 2 - Risk 2-dose series) HEPATITIS A (1 of 2 - Risk 2-dose series) [facility] Start: 01-08-1987 Hepatitis A Vaccine (1 of 2 - Risk 2-dose series) Hepatitis A Vaccine (1 of 2 - Risk 2-dose series) [facility] Start: 01-08-1987 HEPATITIS B (1 of 3 - Risk 3-dose series) HEPATITIS B (1 of 3 - Risk 3-dose series) [facility] Start: 01-08-1987 Hepatitis B Vaccine (1 of 3 - 19+ 3-dose series) Hepatitis B Vaccine (1 of 3 - 19+ 3-dose series) [facility] Start: 01-08-1987 SHINGRIX VACCINE (1 of 2) SHINGRIX VACCINE (1 of 2) [facility] Start: 01-08-1987 Urine microalbumin profile DTAP,TDAP,TD (1 - Tdap) [facility] Start: 01-08-1986 Depression Screening Depression Scre ening [facility] Start: 01-08-1986 HEPATITIS C SCREENING HEPATITIS C SC [facility] Start: 01-08-1986 MMR (1 of 2 - Risk 2-dose series) MMR (1 of 2 - Risk 2-dose series) [facility] Start: 01-08-1973 COVID-19 VACCINE (#1) COVID-19 VACCI NE (#1) [facility] Start: 01-08-1970 MENINGOCOCCAL CONJUG ATE (1 - Risk 2-dose series) MENINGOCOCCAL CONJUGATE (1 - Risk 2-dose series) [facility] Start: 01-08-1970 Meningococcal Conjug ate Vaccine (1 - Risk 2-dose series) Meningococcal Conjugate Vaccine (1 - Risk 2-dose series) [facility] Start: 01-08-1969 HEPATITIS A (1 of 2 - Risk 2-dose series) HEPATITIS A (1 of 2 - Risk 2-dose series) [facility] Start: 1970 MENINGOCOCCAL CONJUG ATE (1 - Risk start 2-23 months series) MENINGOCOCCAL CONJUGATE (1 - Risk start 2-23 months series) [facility] Start: 1970 HEPATITIS B (1 of 3 - 3-dose series) HEPATITIS B (1 of 3 - 3-dose series) [facility] Start: 1970 Hepatitis B Vaccine (1 of 3 - 3-dose series) Hepatitis B Vaccine (1 of 3 - 3-dose series) [facility] Bacteria identified in Urine by Culture BACTERIAL CULTURE, URINE Microbiology Routine Urinary frequency 07/31/2024 9:42 AM EST [facility] BACTERIAL VAGINOSIS AMPLIFICATION BACTERIAL VAGINOSIS AMPLIFICATION Lab Routine Vaginal discharge 08/09/2022 1:42 PM [facility] Work Phone: BACTERIAL VAGINOSIS NAAT BACTERI AL VAGINOSIS NAAT Lab Routine Vaginal discharge 07/31/2024 9:42 AM [facility] Banana IgE Ab [Units/volume] in Serum [facility] Basophil count [facility] Basophil percent differential count [facility] Beef IgE Ab [Units/volume] in Serum [facility] DESTINEE / TRICHOMONA S AMPLIFICATION DESTINEE / TRICHOMONAS AMPLIFICATION Microbiology Routine Vaginal discharge 08/09/2022 1:42 PM EST [facility] Work Phone: DESTINEE/TRICHOMONAS NAAT DESTINEE /TRICHOMONAS NAAT Lab Routine Vaginal discharge 07/31/2024 9:42 AM [facility] Work Phone: CD3+CD4+ (T4 helper) cells [#/volume] in Blood [facility] Chlamydia trachomatis+Neisseria gonorrhoeae DNA [Presence] in Unspecified specimen by TESHA with probe detection GC/CHLAMYDIA DNA DET Lab Routine Vaginal discharge 08/09/2022 1:42 PM EST [facility] Work Phone: Chocolate IgE Ab [Units/volume] in Serum [facility] Cobalamin (Vitamin B 12) [Mass/volume] in Serum or Plasma [facility] Codfish IgE Ab [Units/volume] in Serum [facility] COLOGUARD COLOGUARD Lab Ro utine Screening for colon cancer Ordered: 08/02/2022 [facility] Work Phone: Comment on above: Ordered: 08/02/2022 [place] IgE Ab [Units/volume] in Serum [facility] COVID & INFLUENZA A/ B & RSV PCR, ROUTINE COVID & INFLUENZA A/B & RSV PCR, ROUTINE Microbiology Routine Viral URI with cough COPD with exacerbation (HCC) Suspected COVID-19 virus infection 03/20/2024 10:23 AM EDT [facility] Work Phone: COVID & INFLUENZA A/ B & RSV PCR, ROUTINE COVID & INFLUENZA A/B & RSV PCR, ROUTINE Microbiology Routine Respiratory infection Ordered: 05/27/2024 [facility] Work Phone: Comment on above: Ordered: 05/27/2024 COVID & INFLUENZA A/ B & RSV PCR, ROUTINE COVID & INFLUENZA A/B & RSV PCR, ROUTINE Microbiology Routine URI, acute Ordered: 09/27/2024 [facility] Work Phone: Comment on above: Ordered: 09/27/2024 Cow milk IgE Ab [Units/volume] in Serum [facility] CT Unspecified body region WO contrast [facility] ECG COMPLETE [facility] Work Phone: Comment on above: Ordered: 03/21/2024 Eosinophil percent differential count [facility] Eosinophils [#/volum e] in Blood [facility] Erythrocyte mean corpuscular volume determination [facility] Food RAST [facility] Granulocyte percent differential count [facility] Hematocrit [Volume Fraction] of Blood [facility] Hemoglobin [Mass/vol ume] in Blood [facility] Hemoglobin distribut ion, width determination [facility] Hemoglobin.gastroint conner nal.lower [Presence] in Stool by Immunoassay FECAL OCCULT BLOOD TEST Lab Routine Encounter for screening fecal occult blood testing Ordered: 08/18/2022 [facility] Work Phone: Comment on above: Ordered: 08/18/2022 HIV 1 RNA [#/volume] (viral load) in Unspecified specimen by TESHA with probe detection [facility] Work Phone: HIV 1 RNA [#/volume] (viral load) in Unspecified specimen by TESHA with probe detection [facility] HIV 1 RNA [#/volume] (viral load) in Unspecified specimen by TESHA with probe detection [facility] HIV 1 RNA [Log #/vol ume] (viral load) in Unspecified specimen by TESHA with probe detection [facility] Work Phone: HIV 1 RNA [Log #/vol ume] (viral load) in Unspecified specimen by TESHA with probe detection [facility] HIV 1 RNA [Log #/vol ume] (viral load) in Unspecified specimen by TESHA with probe detection [facility] End: 08-02-2023 HOME SLEEP APNEA TEST (HSAT) HOME SLEEP APNEA TEST (HSAT) Procedures Routine Fatigue, unspecified type Daytime somnolence 1 Occurrences starting 08/02/2022 until 08/02/2023 [facility] Work Phone: Comment on above: 1 Occurrences starti ng 08/02/2022 until 08/02/2023 Immature granulocyte s [#/volume] in Blood [facility] Influenza virus A an d B RNA and SARS-CoV-2 (COVID-19) N gene panel - Respiratory specimen by TESHA with probe detection COVID WITH FLUA+B, ROUTINE Microbiology Routine Suspected COVID-19 virus infection Ordered: 02/18/2022 [facility] Work Phone: Comment on above: Ordered: 02/18/2022 Influenza virus A an d B RNA and SARS-CoV-2 (COVID-19) N gene panel - Respiratory specimen by TESHA with probe detection COVID WITH FLUA+B, ROUTINE Microbiology Routine Symptoms of upper respiratory infection (URI) Cough, unspecified type 04/09/2022 12:10 PM EDT [facility] Work Phone: Leukocytes [#/volume ] in Blood [facility] End: 03-20-2023 LUNG VOLUMES LUNG VOLUMES PFT Routine Persistent cough Tobacco use 1 Occurrences starting 02/18/2022 until 03/20/2023 [facility] Work Phone: Comment on above: 1 Occurrences starti ng 02/18/2022 until 03/20/2023 End: 09-21-2025 LUNG VOLUMES LUNG VOLUMES PFT Routine Pulmonary emphysema, unspecified emphysema type (HCC) 1 Occurrences starting 08/22/2024 until 09/21/2025 [facility] Comment on above: 1 Occurrences starti ng 08/22/2024 until 09/21/[address] [facility] Lymphocyte percent differential count [facility] End: 06-16-2024 ANALIA DIAGNOSTIC RIGHT ANALIA DIAGNOSTIC RIGHT Radiology Routine Abnormal mammogram 1 Occurrences starting 05/18/2023 until 06/16/2024 [facility] Work Phone: Comment on above: 1 Occurrences starti ng 05/18/2023 until 06/16/2024 Mean corpuscular hemoglobin concentration determination [facility] Mean corpuscular hemoglobin determination [facility] End: 11-30-2024 MG Breast - bilateral Diagnostic ANALIA DIAGNOSTIC BILATERAL Radiology Routine Abnormal mammogram 1 Occurrences starting 11/01/2023 until 11/30/2024 [facility] Work Phone: Comment on above: 1 Occurrences starti ng 11/01/2023 until 11/30/2024 MG Breast - bilatera l Screening [facility] End: 11-17-2024 MG Breast Screening ANALIA SCREENING Radiology Routine Encounter for screening mammogram for breast cancer 1 Occurrences starting 10/19/2023 until 11/17/2024 [facility] Work Phone: Comment on above: 1 Occurrences starti ng 10/19/2023 until 11/17/2024 Monocyte count [facility] Monocyte percent differential count [facility] Neutrophil count [facility] Neutrophil percent differential count [facility] Nucleated red blood cell count procedure [facility] Patient Education [facility] Work Phone: Patient referral [facility] Work Phone: Peanut IgE Ab [Units/volume] in Serum [facility] Percentage CD4 (T4 cells) count [facility] Platelet count [facility] Pork IgE Ab [Units/volume] in Serum [facility] Procedure [facility] Work Phone: PT ED OBSTETRICS & GYNECOLOGY PT ED OBSTETRICS & GYNECOLOGY Other 07/30/2022 [facility] Work Phone: End: 09-25-2023 Radiologic exam chest 2 views XR CHEST 2V FRONTAL/LAT Radiology Routine Chronic obstructive pulmonary disease, unspecified COPD type (HCC) 1 Occurrences starting 08/27/2022 until 09/25/2023 [facility] Work Phone: Comment on above: 1 Occurrences starti ng 08/27/2022 until 09/25/[address] cell [address] [facility] Reticulocyte percent count [facility] [place] IgE Ab [Units/volume] in Serum [facility] SARS-CoV-2 (COVID-19 ) RNA [Presence] in Respiratory specimen by TESHA with probe detection 2019 CORONAVIRUS Microbiology Routine Symptoms of upper respiratory infection (URI) Cough, unspecified type Ordered: 04/09/2022 [facility] Work Phone: Comment on above: Ordered: 04/09/2022 End: 09-07-2024 Screening colonoscopy COLONOSCOPY SCREENING Endoscopy Routine Screening for colon cancer 1 Occurrences starting 09/07/2023 until 09/07/2024 [facility] Work Phone: Comment on above: 1 Occurrences starti ng 09/07/2023 until 09/07/2024 End: 02-19-2023 Screening mammography bi 2-view breast inc cad ANALIA SCREENING Radiology Routine Encounter for screening mammogram for breast cancer 1 Occurrences starting 01/20/2022 until 02/19/2023 [facility] Work Phone: Comment on above: 1 Occurrences starti ng 01/20/2022 until 02/19/2023 Shrimp IgE Ab [Units/volume] in Serum [facility] Soybean IgE Ab [Units/volume] in Serum [facility] End: 03-20-2023 SPIROMETRY - BASELINE AND POST DILATOR SPIROMETRY - BASELINE AND POST DILATOR PFT Routine Persistent cough Tobacco use 1 Occurrences starting 02/18/2022 until 03/20/2023 [facility] Work Phone: Comment on above: 1 Occurrences starti ng 02/18/2022 until 03/20/2023 End: 09-25-2023 SPIROMETRY WITH DILATOR IF OBSTRUCTED SPIROMETRY WITH DILATOR IF OBSTRUCTED PFT Routine Chronic obstructive pulmonary disease, unspecified COPD type (HCC) 1 Occurrences starting 08/27/2022 until 09/25/2023 [facility] Work Phone: Comment on above: 1 Occurrences starti ng 08/27/2022 until 09/25/2023 End: 04-12-2024 SPIROMETRY WITH DILATOR IF OBSTRUCTED SPIROMETRY WITH DILATOR IF OBSTRUCTED PFT Routine Centrilobular emphysema (HCC) 1 Occurrences starting 03/14/2023 until 04/12/2024 [facility] Work Phone: Comment on above: 1 Occurrences starti ng 03/14/2023 until 04/12/2024 SPIROMETRY WITH DILA TOR IF OBSTRUCTED SPIROMETRY WITH DILATOR IF OBSTRUCTED PFT Routine Centrilobular emphysema (HCC) 11/09/2023 9:58 AM EDT [facility] Work Phone: End: 09-21-2025 SPIROMETRY WITH DILATOR IF OBSTRUCTED SPIROMETRY WITH DILATOR IF OBSTRUCTED PFT Routine Pulmonary emphysema, unspecified emphysema type (HCC) 1 Occurrences starting 08/22/2024 until 09/21/2025 [facility] Work Phone: Comment on above: 1 Occurrences starti ng 08/22/2024 until 09/21/2025 Tuna IgE Ab [Units/volume] in Serum [facility] US Abdomen limited [facility] End: 06-16-2024 US BREAST LTD RIGHT US BREAST LTD RIGHT Radiology Routine Abnormal mammogram 1 Occurrences starting 05/18/2023 until 06/16/2024 [facility] Work Phone: Comment on above: 1 Occurrences starti ng 05/18/2023 until 06/16/2024 [place] IgE Ab [Units/volume] in Serum [facility] Whole Egg IgE Ab [Units/volume] in Serum [facility] Immunizations Immunization Date Immunization Notes Care Provider Melita harris 04-16-2024 influenza, seasonal, injectable, preservative free Dr. Fina Iraheta MD Work Phone: [facility] 05-02-2023 influenza, injectabl e, quadrivalent, preservative free Dr. Fina Iraheta MD Work Phone: [facility] 08-02-2022 pneumococcal (PCV20) vaccine, 20 valent (PREVNAR 20) Diamond Bright BICYCLE COURIER.FERTILIZING MACHINE OPERATOR Work Phone: [facility] 08-02-2022 pneumococcal Conjuga te, unspecified formulation Diamond Bright BICYCLE COURIER.FERTILIZING MACHINE OPERATOR Work Phone: [facility] Work Phone: 07-06-2022 tetanus toxoid, redu maximus diphtheria toxoid, and acellular pertussis vaccine, adsorbed Chantel Pablo BICYCLE COURIER.FERTILIZING MACHINE OPERATOR Work Phone: [facility] Work Phone: 06-29-2022 COVID-19 booster vaccine, age 12+ yr, bivalent (PFIZER-BIONTECH) Prudencio Pedro MD Work Phone: [facility] 05-28-2022 influenza, injectabl e, quadrivalent, preservative free Kathleen Maurice BICYCLE COURIER.FERTILIZING MACHINE OPERATOR Work Phone: [facility] 05-28-2022 influenza virus vaccine, unspecified formulation Rob Chirinos BICYCLE COURIER.FERTILIZING MACHINE OPERATOR Work Phone: [facility] 09-24-2021 Covid (Pfizer) Dr. Fina Iraheta MD Work Phone: [facility] 04-22-2021 influenza, injectabl e, quadrivalent, preservative free Kathleen Maurice BICYCLE COURIER.FERTILIZING MACHINE OPERATOR Work Phone: [facility] 03-18-2021 Covid (Pfizer) Dr. Fina Iraheta MD Work Phone: [facility] 10-22-2020 Covid (Pfizer) Dr. Fina Iraheta MD Work Phone: [facility] 10-02-2020 Covid (Pfizer) Dr. Fina Iraheta MD Work Phone: [facility] 04-24-2020 influenza, injectabl e, quadrivalent, preservative free Prudencio Pedro MD Work Phone: [facility] Work Phone: 04-24-2020 pneumococcal conjuga te vaccine, 13 valent Prudencio Pedro MD Work Phone: [facility] Work Phone: 05-10-2019 influenza, injectabl e, quadrivalent, contains preservative Prudencio Pedro MD Work Phone: [facility] 05-10-2019 influenza, injectabl e, quadrivalent, preservative free Dr. Fina Iraheta MD Work Phone: [facility] 12-26-2014 pneumococcal polysaccharide vaccine, 23 valent Prudencio Pedro MD Work Phone: [facility] Payers Date Payer Category Payer Unknown [id number] 2024 Self-pay [id number] 2022 Unknown [id number] 2017 Medicaid [employer] [place] [id number] 2017-Present [phone] [address] [address] [place] [address] Medicaid [id number] 2017 Medicaid [id number]. [id number] Unknown [id number] [id number]2 Unknown [id number] 2.16.840.1.094582.3.579.2.462 Unknown [id number] 2.16.840.1.990526.3.579.2.462 Unknown [id number] 2.16.840.1.140640.3.579.2.462 Unknown [id number] 2.16.840.1.479923.3.579.2.462 Unknown [id number] 2.16.840.1.819353.3.579.2.462 Unknown [id number] 2.16.840.1.183141.3.579.2.462 Unknown [id number] 2.16.840.1.600190.3.579.2.462 Unknown [id number] 2.16.840.1.726018.3.579.2.462 Unknown [id number] 2.16.840.1.012312.3.579.2.462 Unknown [id number] 2.16.840.1.064745.3.579.2.462 Unknown [id number] 2.16.840.1.356817.3.579.2.462 Unknown [id number] 2.16.840.1.515070.3.579.2.462 Unknown [id number] 2.16.840.1.851932.3.579.2.462 Unknown [id number] 2.16.840.1.854868.3.579.2.462 Unknown [id number] 2.16.840.1.266321.3.579.2.462 Unknown [id number] 2.16.840.1.069753.3.579.2.462 Unknown [id number] 2.16.840.1.751005.3.579.2.462 Unknown [id number] 2.16.840.1.523859.3.579.2.462 Unknown [id number] 2.16.840.1.595469.3.579.2.462 Unknown [id number] 2.16.840.1.232861.3.579.2.462 Unknown [id number] 2.16.840.1.391761.3.579.2.462 Unknown [id number] 2.16.840.1.007293.3.579.2.462 Unknown [id number] 2.16.840.1.014597.3.579.2.462 Unknown [id number] 2.16.840.1.388788.3.579.2.462 Unknown [id number] 2.16.840.1.481488.3.579.2.462 Unknown [id number] 2.16.840.1.504411.3.579.2.462 Unknown [id number] 2.16.840.1.870394.3.579.2.462 Unknown [id number] 2.16.840.1.845220.3.579.2.462 Unknown [id number] 2.16.840.1.058140.3.579.2.462 Unknown [id number] 2.16.840.1.900050.3.579.2.462 Unknown [id number] 2.16.840.1.766831.3.579.2.462 Social History Date Type Detail Facility Start: 11-12-2017 End: 05-13-2025 Tobacco smoking status NHIS Smokes tobacco daily [facility] Start: 11-12-2017 End: 11-17-2022 Cigarettes smoked current (pack per day) - Reported 1 [facility] Work Phone: Start: 11-12-2017 End: 03-21-2024 Tobacco use and exposure Smokeless tobacco non-user [facility] Start: 02-20-2020 End: 03-08-2025 Alcohol intake Ex-drinker (finding) [facility] Start: 1970 Sex Assigned At Not on file [facility] Start: 01-16-2022 End: 02-18-2022 Exposure to SARS-CoV-2 (event) Not sure [facility] Start: 05-15-2019 End: 08-30-2023 Tobacco smoking status PAIS Unknown if ever smoked [facility] Start: 1970 Sex Assigned At Female [facility] History of tobacco use Cigarette Smoker [facility] Work Phone: Start: 03-28-2022 End: 04-07-2022 Exposure to SARS-CoV-2 (event) Yes [facility] Start: 09-09-2022 Tobacco Comment Currently smok ing approx 0.5 PPD [facility] Start: 11-17-2022 End: 02-16-2023 Tobacco use panel [facility] Work Phone: Start: 11-12-2017 Adult Depression Screening Assessment 0 [facility] Work Phone: Start: 09-23-2024 End: 10-12-2024 Sex Female (finding) [facility] Medical Equipment Procedure Code Equipment Code Equipment [...] Cognitive function Level Of Cons ciousness Awake;Alert;Appropriate [facility] Work Phone: 03-08-2025 Cognitive function Level Of Cons ciousness Awake;Alert;Appropriate;Follow s Commands [facility] Work Phone: 08-01-2024 Cognitive function Level Of Cons ciousness Awake;Alert;Appropriate [facility] Work Phone: 03-18-2022 Cognitive function Level Of Cons ciousness Awake;Alert;Appropriate [facility] Work Phone: Clinical Notes 01-26-2022 to 05-27-2025 Rbuina Campos MD - 03/15/2025 3:04 PM EDT Note Date & Type Note Facility 05-27-2025 Note [facility] Medical Records Department [address] [place] [address] History Physical Exam 05/27/25 1343 MR#: [id number] Acct: [id number] Name: TRACY VAZQUEZ Rep #: [id number] : 1970 55 From: Juvencio Colon MD PCP: Dr. Fina Iraheta MD Status:[facility] Location: [place] [address] History and Physical Date of Admission: 05/27/25 [...] carbonate)-vitamin D3 15 mcg (600 unit) tablet [facility] Medical History (Updated 05/02/25 @ 09:59 [...] apartment current occupational status: employed current occupation: [employer] Smoking Status: Current every day smoker [...] No back p (more content not included)... [facility] 05-02-2025 Progress note [facility] 04-18-2025 Radiology Diagnostic study note [facility] Imaging Services [address] [place], [place] [id number] Abdomen Limited MR#: [id number] Acct: [id number] Name: TRACY VZAQUEZ Rep #: [id number] : 1970 F 55 From: Yaya Thakur MD PCP: Dr. Fina Iraheta MD Status: R EG CLI Study:Abdomen Limited Date of Exam: 09/11 Exam# [id number] Ordering Dr: Gem Graves CO SUPERVISOR GROUNDS AND LANDSCAPEJennifer PROCEDURE: ABDOMEN LIMITED 04/18/2025 REASON FOR EXAM: [...] to 1.3 cm. No hydronephrosis. Reading Location: [id number] CC: PRADEEP Graves; Dr. Fina Iraheta MD ~ Computer Patternmaker: Signed [facility] 03-15-2025 Note HNO ID: [id number] Author: RUBINA CAMPOS MD Service: ? Author Type: Physician Type: Progress Notes Filed: 03/15/2025 15:07 Note Text: [facility] [place] Carl Vazquez is a 55 year old [...] HANDP Disposition The patient was discharged. Procedures [facility] 03-15-2025 History of Present illness [facility]ative [facility] Tracy Vazquez is a 55 year [...] was discharged. Procedures documented in this encounter [facility] 03-11-2025 Progress note [facility] 03-11-2025 Progress note Note Date/Time March 11, 2025 9:31am [facility] [facility] [address] [place] [address] [place] [address] OFFICE VISIT Date of Service: 03/11/25 MR#: [id number] Acct: [id number] Name: TRACY VAZQUEZ Rep # : [id number] : 1970 Provider: PRADEEP power Ungchasidyr Age/Sex: 55/F [place] [facility] Status: Signed Intake Vital Signs 03/08/25 08:41 03/08/25 13:28 Height 5 ft 2 in 5 ft 2 in Weight: 125 lb BMI 22.8 BP 132/84 H Blood Pressure Location Lt brachial Position Sitting Respiration 18 Pulse 64 Pulse Source Monitor Temp 97.7 F L Temp Source Temporal Pulse Oximetry (%) 99 Oxygen Delivery Method room air Intake Visit Reasons: Hospital Follow Up ([facility]) Chief Complaint: 6 M FU Special Procedure Tech Required: No Is patient in pain?: No [...] ears looked at as they feel clogged. [facility] Medical History Muscle cramps Rhinitis Breast [...] apartment current occupational status: employed current occupation: [employer] Smoking Status: Current every day smoker [...] well nourished Orientation: alert and oriented x3 [facility] Head: normal to inspection Ears: hearing grossly [...] Cosigner Signature: Date (if applicable) CC: ~ [employer] Work Phone: 1(442) 639-995708-22-2025 Telephone encounter Note* Telephone Encounter - Bubba, Ayad Cartagena APRN.FERTILIZING MACHINE OPERATOR - 03/08/2025 2:25 PM EDT Patient stopped [...] reassess symptoms following treatment. Ayad Metcalf APRN.CNP [facility]08-22-2025 Miscellaneous Notes* Telephone Encounter - [...] Patient states she was over at our [place] facility and spoke to a nurse. Please review and advise. Kelly Durant March 08, 2025 2:21 PM documented in this encounterAshtabula County Medical Center08-22-2025 Telephone encounter Note * Telephone Encounter - Kelly Durant - 03/08/2025 2:18 PM EDT Patient calling in stating Ayad was going to call her in a prescription for Emphysema today todrugmart. Patient states she was over at our [place] facility and spoke to a nurse. Please review and advise. Kelly Durant March 08, 2025 2:21 PM [facility]08-22-2025 Radiology Diagnostic study note [facility] Imaging Services [address] [place] [address] Abdomen/Pelvis W IV Cont ONLY MR#: [id number] Acct: [id number] Name: TRACY VAZQUEZ Rep #: [id number] : 1970 F 55 From: Edw jama Castañeda MD PCP: Dr. Fina Iraheta MD Status: R EG ER Study:Abdomen/Pelvis W IV Cont ONLY Date of E xam: 03/08/25 Exam# [id number] Ordering Dr: Saturnino Mix DO PROCEDURE: ABDOMEN/PELVIS [...] required. 4. No acute abnormality. Reading Location: [id number] CC: Dr. Fina Iraheta MD; Dr. Saturnino Mix, DO ~ Computer Patternmaker: Signed [facility]08-22-2025 NoteHNO ID: [id number] Author: GINNY JAIMES APRN.FERTILIZING MACHINE OPERATOR Service: ? Author Type: Nurse Practitioner Type: Progress Notes Filed: 03/08/2025 08:43 Note Text: URGENT CARE [facility] Tracy Vazquez is a 55 year old female. Patient presents with: Abdominal Pain: Nausea, Gerd, headache, vomiting, cough, RLQ abd pain x 2 days HPI Abdominal Pain: - Onset: Recent. - Location: RLQ. - Severity: Rates pain as 6/10, but is now keeping her up at night worsening. - Denies seeing a postpartum rn. Vomiting: - Vomiting mucus; describes it as thick and like gum. - Taking Mucinex. Headaches: - Took Tylenol 2.5 hours ago. GERD: - Previously managed with Pepcid AC; discontinued to improve B12 absorption. - Takes B12 tablets daily. - Describes typical GERD symptoms as chest and throat discomfort, not abdominal pain. Emphysema: - Managed by Dr. Metcalf, subsystems engineer; next appointment on the 1st. - Reports [...] is clear HIV (human immunodeficiency virus infection) ([facility]) 2009 Dr. Mcdonald-ID Left posterior fascicular block [...] Inhale 2 Puffs as instructed once daily. chobslshizz-vuznllbedotlr-pmqtilzur alafenamide (BIKTARVY) 50-200-25 mg per tablet Take [...] clinic to differentiate etiology. - Triage to [facility] for further workup, including imaging and labs. - Patient declines ER transport. 2. Cough with sputum (R05.8) - Chronic cough with thick sputum production; patient requests antibiotics. She sees pulmonoligst and was jus (more content not included)...[facility]08-22-2025 History of Present illness Narrative* Ginny Jaimes APRN.FERTILIZING MACHINE OPERATOR - 03/08/2025 8:25 AM EDT [facility] [place] Subjective Tracy Vazquez is a 55 year old female. Patient presents with: Abdominal Pain: Nausea, Gerd, headache, vomiting, cough, RLQ abd pain x 2 days HPI Abdominal Pain: - Onset: Recent. - Location: RLQ. - Severity: Rates pain as 6/10, but is now keeping her up at night worsening. - Denies seeing a postpartum rn. Vomiting: - Vomiting mucus; describes it as thick and like gum. - Taking Mucinex. Headaches: - Took Tylenol 2.5 hours ago. GERD: - Previously managed with Pepcid AC; discontinued to improve B12 absorption. - Takes B12 tablets daily. - Describes typical GERD symptoms as chest and throat discomfort, not abdominal pain. Emphysema: - Managed by Dr. Metcalf, subsystems engineer; next appointment on the . - Reports [...] is clear HIV (human immunodeficiency virus infection) ([facility]) 2009 Dr. Mcdonald-ID Left posterior fascicular block [...] Inhale 2 Puffs as instructed once daily. uawclztjnav-rvtwkwphpyotf-voacsqkac alafenamide (BIKTARVY) 50-200-25 mg per tablet Take [...] clinic to differentiate etiology. - Triage to [facility] for further workup, including imaging and labs. - Patient declines ER transport. 2. Cough with sputum (R05.8) - Chronic cough with thick sputum production; patient requests antibiotics. She sees pulmonoligst and was just on augmentin. - Triage to [facility] for further evaluation. and Recording using ambient [employer] software for draft documentation of the visit was discussed with the patient/authorized union contract representative; all questions welcomed and answered. Patient/authorized union contract representative agreed to proceed [1] Social History Tobacco Use Smoking status: Every Day Current packs/day: 1.00 Average packs/day: 1 pack/day for 38.0 years (38.0 ttl pk-yrs) Types: Cigarettes Smokeless tobacco: Never Vaping Use Vaping status: Never Used Substance Use Topics Alcohol use: Not Currently Drug use: Not Currently Types: Marijuana, LSD, Crack Cocaine Comment: past hx documented in this encounterAshtabula [facility] Center08-01-2025 Evaluation note* Diagnosis Onset Date [...] 11 8:36am Abdominal pain inactive February 8:36am [facility] Work Phone: 1(200) 915-587408-01-2025 Evaluation note* Diagnosis Onset Date Resolution Status [...] Left knee pain acute May 132024 10:22am [facility] Work Phone: 1(518) 559-310206-13-2025 NoteHNO ID: [id number] Author: CHANTEL SHAH APRN.FERTILIZING MACHINE OPERATOR Service: ? Author Type: Nurse Practitioner Type: [...] Inhale 2 Puffs as instructed once daily. zpctpnikggv-zikroghuzjuzq-lvloxugqe alafenamide (BIKTARVY) 50-200-25 mg per tablet Take [...] 21.85 kg/m? Physical Exam HENT: Mouth/Throat: Lips: [place]. Mouth: Mucous membranes are moist. Cardiovascular: Rate [...] outpatient record. Disposition The patient was discharged. [facility] History of Present illness Narrative* Chantel Shah [...] is clear HIV (human immunodeficiency virus infection) ([facility]) [address] Dr. Mcdonald-ID Left posterior fascicular block [...] Inhale 2 Puffs as instructed once daily. cdaucftrswt-ilcobybnsytrb-xdhnguwif alafenamide (BIKTARVY) 50-200-25 mg per tablet Take [...] 21.85 kg/m Physical Exam HENT: Mouth/Throat: Lips: [place]. Mouth: Mucous membranes are moist. Cardiovascular: Rate [...] patient was discharged. Procedures documented in this encounterAshtabula County Medical Center05-29-2025 Instructions* Patient Instructions* Meagan Ribeiro APRN.ANALILIA - 12/13/2024 10:25 AM EDT 1. COPD with exacerbation (HCC) (J44.1) - Persistent congestion and cough despite previous treatment with doxycycline. - Exam reveals ongoing nasal congestion - Prescribed Augmentin and a corticosteroid. - Discussed recent imaging, including a chest X-ray two weeks ago and a CT scan in August showingemphysema. - Stressed follow-up with subsystems engineer if symptoms do not improve. 2. Tobacco [...] after this treatment, follow up with your subsystems engineer as you have been seen three times recently in [facility] documented in this encounterCleveland [id number] NoteHNO ID: [id number] Author: MEAGAN RIBEIRO APRN.[facility] Service: ? Author Type: Nurse Practitioner Type: [...] Inhale 2 Puffs as instructed once daily. nqswlgmatdb-uxmfndzrytywp-wachqkode alafenamide (BIKTARVY) 50-200-25 mg per tablet Take [...] Constitutional: General: She is (more content not included)...[facility] 12-13-2024 History of Present illness Narrative* Meagan Ribeiro, DARIUS.[facility] - 12/13/2024 10:23 AM EDT [employer] [...] is clear HIV (human immunodeficiency virus infection) ([facility]) 2009 Dr. Mcdonald-ID Left posterior fascicular block [...] Inhale 2 Puffs as instructed once daily. gwwrmzdnsak-ocqyskoooxqxn-ekwkjppww alafenamide (BIKTARVY) 50-200-25 mg per tablet Take [...] in August showingemphysema. - Stressed follow-up with subsystems engineer if symptoms do not improve. 2. Tobacco [...] Discussed expected course of illness Meagan Ribeiro APRN.FERTILIZING MACHINE OPERATOR and Recording using [employer] software for draft documentation of the visit was discussed with thepatient/authorized union contract representative; all questions welcomed and answered. Patient/authorized union contract representative agreed to proceed Disposition The patient was discharged. Procedures documented in this encounterAshtabula County Medical Center05-20-2025 NoteHNO ID: [id number] Author: LOUIE TYSON PA Service: ? Author Type: Physician Volunteer Assistant Type: Progress Notes Filed: 12/04/2024 09:05 Note [...] sinus pain. - Denies fever. - No ibmv-ejf-jbmayvh medications taken for symptoms. COPD: - History [...] is clear HIV (human immunodeficiency virus infection) ([facility]) 2009 Dr. Mcdonald-ID Left posterior fascicular block [...] tablet Take two daily for 5 days. Xeqbiyznpzphtwi-Fkmuhvkhw-DN (BROMFED DM) 2-30-10 mg/5 mL syrup Take [...] Take 1 capsule by mouth once daily. mcgzyohhvtu-xbewaufizczye-fdysqpruy alafenamide (BIKTARVY) 50-200-25 mg per tablet Take [...] exam reveals clear lung (more content not included)...[facility]05-20-2025 History of Present illness Narrative* Louie Tyson [...] sinus pain. - Denies fever. - No sumd-ddm-zanxout medications taken for symptoms. COPD: - History [...] LSD- no surgery for this Emphysema lung ([facility]) GERD (gastroesophageal reflux disease) Hepatitis B reports she is clear HIV (human immunodeficiency virus infection) ([facility]) [address] Dr. Mcdonald-ID Left posterior fascicular block [...] tablet Take two daily for 5 days. Dexpemkqkkxtsnn-Cxsqgdszw-KS (BROMFED DM) 2-30-10 mg/5 mL syrup Take [...] Take 1 capsule by mouth once daily. hfyvhkczwjq-njvevzwwguvsb-gtfrkqphl alafenamide (BIKTARVY) 50-200-25 mg per tablet Take [...] with the treatment plan. and Recording using [employer] software for draft documentation of the visit was discussed with thepatient/authorized union contract representative; all questions welcomed and answered. Patient/authorized union contract representative agreed to proceed History and Record [...] patient was discharged. Procedures documented in this encounterAshtabula County Medical Center05-14-2025 Evaluation note* Diagnosis Onset Date Resolution Status Admit Date Tobacco use disorder, continuous acu te November 28, 2024 2:47pm Chronic pain chronic November 28 2:47pm Viral upper respiratory trac t infection with cough inactive November 28, 2 025 2:[address]pm [facility] Work Phone: 1(463) 130-550505-14-2025 Evaluation note* Diagnosis Onset Date Resolution Status [...] 2025 10:07am Rhinitis chronic February 15 10:07am [facility] Work Phone: 1([phone]) 647-636405-14-2025 Evaluation note* Diagnosis Onset Date Resolution Status [...] wall of gallbladder acute March 11 8:36am [facility] Work Phone: 1(609) 359-944205-12-2025 Radiology Diagnostic study note [facility] Imaging Services [address] [place] [address] Chest PA and Lateral MR#: [id number] Acct: [id number] Name: TRACY VAZQUEZ Rep #: [id number] : 1970 F 54 From: Peter Meyer MD PCP: Dr. Fina Iraheta MD Status: R EG ER Study:Chest PA and Lateral Date of Exam: 11/26/24 Exam# [id number] Ordering Dr: Saturnino Mix DO PROCEDURE: CHEST [...] No acute abnormality is seen. Reading Location: [facility] CC: Dr. Fina Iraheta MD; Dr. Saturnino Mix DO ~ Computer Patternmaker: Signed [facility]04-23-2025 NoteHNO ID: [id number] Author: JULIETA POOLE APRN.FERTILIZING MACHINE OPERATOR Service: ? Author Type: Nurse Practitioner Type: Progress Notes Filed: 11/07/2024 10:55 Note Text: This note was created using [email or web address]. Subjective Tracy Vazquez is a 54 year [...] any other concerning neurologic issues. Julieta Poole APRN.[facility]04-23-2025 History of Present illness Narrative* Julieta Poole APRN.ANALILIA - 11/07/2024 10:43 AM EDT This note was created using [email or web address]. Subjective Tracy Vazquez is a 54 year [...] any other concerning neurologic issues. Julieta Poole APRN.FERTILIZING MACHINE OPERATOR documented in this encounterAshtabula County Medical Center04-14-2025 Telephone encounter Note * Telephone Encounter - Enrique Pacheco - 10/29/2024 10:39 AM EDT Orders received. [facility]04-14-2025 Miscellaneous Notes* Telephone Encounter - [...] Please advise, thank you documented in this encounterAshtabula County Medical Center03-14-2025 Telephone encounter Note * Telephone Encounter - Blanca Rojo LPN - 09/28/2024 9:49 AM EDT Images from the original note were not included. Julieta Poole APRN.FERTILIZING MACHINE OPERATOR 09/28/24 6:57 AM Result Note Please inform patient that the influenza, COVID, RSV tests were negative. They should follow-up with their family doctor if symptoms are not improving. COVID & INFLUENZA A/B & RSV PCR, ROUTINE Patient calling asking for results, went over results, notes from express care provider with understanding. [facility]03-14-2025 Miscellaneous Notes* Telephone Encounter - Blanca Rojo LPN - 09/28/2024 9:49 AM EDT Images from the original note were not included. Julieta Poole APRN.FERTILIZING MACHINE OPERATOR 09/28/24 6:57 AM Result Note Please inform patient that the influenza, COVID, RSV tests were negative. They should follow-up with their family doctor if symptoms are not improving. COVID & INFLUENZA A/B & RSV PCR, ROUTINE Patient calling asking for results, went over results, notes from express care provider with understanding. documented in this encounterAshtabula County Medical Center03-13-2025 VnvfXOID-OWH-2 (AGENT OF COVID-19) RNA: Not detected INFLUENZA A RNA: Not detected INFLUENZA B RNA: Not detected RESPIRATORY SYNCYTIAL VIRUS (RSV) RNA: Not detectedKettering Health PrebleComment on above:Performed By: #### [id number] ####[facility] LABCLIA [id number] [address]03-13-2025 NoteHNO ID: [id number] Author: LOUIE TYSON PA Service: ? Author Type: Physician Volunteer Assistant Type: Progress Notes Filed: 09/27/2024 13:17 Note [...] is clear HIV (human immunodeficiency virus infection) ([facility]) 2009 Dr. Mcdonald-ID Left posterior fascicular block [...] days. (Patient not taking: Reported on 08/17/2024) Aaqoirwbhqekqkj-Zgqyclfpv-FM (BROMFED DM) 2-30-10 mg/5 mL syrup Take [...] daily. (Patient not taking: Reported on 09/27/2024) rqalwfoexji-eouozkksjwula-mdltdcleg alafenamide (BIKTARVY) 50-200-25 mg per tablet Take [...] canal normal. Nose: Co (more content not included)...[facility]03-13-2025 History of Present illness Narrative* Louie Tyson [...] is clear HIV (human immunodeficiency virus infection) ([facility]) [address] Dr. Mcdonald-ID Left posterior fascicular block [...] days. (Patient not taking: Reported on 08/17/2024) Lgslrfijveahvfj-Kdqscyhbo-UI (BROMFED DM) 2-30-10 mg/5 mL syrup Take [...] daily. (Patient not taking: Reported on 09/27/2024) puyrlxbltnf-bpeejrmdxmjmb-vrtzlbtta alafenamide (BIKTARVY) 50-200-25 mg per tablet Take [...] Mucinex as needed Procedures documented in this encounterAshtabula County Medical Center03-11-2025 Radiology Diagnostic study note [facility] Imaging Services [address] [place] [address] Brain/Head without Contrast MR#: [id number] Acct: [id number] Name: TRACY VAZQUEZ Rep #: [id number] : 1970 F 54 From: Anthony Brownlee DO PCP: Dr. Fina Iraheta MD Status: R EG ER Study:Brain/Head without Contrast Date of Exa m: 09/25/24 Exam# [id number] Ordering Dr: Joselito Nichols DO EXAM: CT [...] Iraheta MD; Dr. Joselito Nichols DO ~ Computer Patternmaker: Signed [facility]02-28-2025 Radiology Diagnostic study note [facility] Imaging Services [address] [place] [address] L/S Spine Min 4 Views MR#: [id number] Acct: [id number] Name: TRACY VAZQUEZ Rep #: : 1970 F 54 From: Shelly Narayan MD PCP: Dr. Fina Iraheta MD Status: R EG CLI Study:L/S Spine Min 4 Views Date of Exam: 09/14/24 Exam# [id number] Ordering Dr: Betty Iraheta MD PROCEDURE: L/S [...] [place] CC: Dr. Fina Iraheta MD ~ Computer Patternmaker: Signed [facility]02-25-2025 Radiology Diagnostic study note [facility] Imaging Services [address] [place] [address] Lung Screening MR#: [id number] Acct: [id number] Name: TRACY VAZQUEZ Rep #: [id number] : 1970 F 54 From: Peter Meyer MD PCP: Dr. Fina Iraheta MD Status: R EG CLI Study:Low Dose CT Lung Screening Date of Exam : 09/11/24 Exam# [id number] Ordering Dr: Namrata Romero NP [employer]-C PROCEDURE: LOW DOSE CT LUNG SCREENING REASON [...] OR fat containing 2- (more content not included)...[facility]02-05-2025 Telephone encounter Note* Telephone Encounter - Maria Elena Monroe RN - 08/22/2024 3:48 PM EST Routed the orders for 'lung volumes' and 'spirometry with dilator' to PSS team to contact Pt to schedule. Maria Elena Monroe RN August 22, 2024 3:49 PM [facility]02-05-2025 Miscellaneous Notes* Telephone Encounter - [...] testing. [facility] scheduled this month at [place] through their lung cancer screening program. Ayad Metcalf APRN.ANALILIA * Telephone Encounter - Bambi Gonsalez RN - 08/22/2024 10:26 AM EST Patient calling in asking for suggestions on what over the counter nasal sprays she can take for nasal congestion? Reports increased nasal congestion x1 week. States that she also saw the ENT and hadear wax removed. Bambi Gonsalez RN documented in this encounterAshtabula County Medical Center02-05-2025 Telephone encounter Note * Telephone [...] stages. Would like to update pulmonary testing. [facility] CT scheduled this month at [place] through their lung cancer screening program. Ayad Metcalf APRN.ANALILIA [facility]02-05-2025 Telephone encounter Note* Telephone Encounter - Bambi Gonsalez RN - 08/22/2024 10:26 AM EST Patient calling in asking for suggestions on what over the counter nasal sprays she can take for nasal congestion? Reports increased nasal congestion x1 week. States that she also saw the ENT and hadear wax removed. Bambi Gonsalez RN [facility]02-04-2025 Telephone encounter Note* Telephone Encounter - Ayad Metcalf APRN.CNP - 08/21/2024 11:13 AM EST Called to discuss lab results and went to . Left message. Labs positive for mild dust mite allergy. No allergy to mold or cats that she previously specifically asked about. [facility]02-04-2025 Miscellaneous Notes* Telephone Encounter - [...] results. She can be reached back at [phone]. * Telephone Encounter - Stephenie Bardales MA - 08/20/2024 1:32 PM EST Patient requesting a phone to review lab results. Stephenie Bardales MA documented in this encounterAshtabula County Medical Center02-04-2025 Telephone encounter Note * Telephone Encounter - Stephenie Bardales MA - 08/21/2024 11:06 AM EST Patient phoned to reports symptoms increased today. She is taking mucinex and drinking a lot of water. She is vomiting mucus at this time.She is asking if she should start steroids? Stephenie Bardales MA [facility]02-04-2025 Telephone encounter Note* Telephone Encounter - Chika Conde MA - 08/21/2024 9:09 AM EST Patient called again trying to obtain lab results. She can be reached back at [phone]. [facility]02-03-2025 Telephone encounter Note* Telephone Encounter - Stephenie Bardales MA - 08/20/2024 1:32 PM EST Patient requesting a phone to review lab results. Stephenie Bardales MA [facility]01-31-2025 NoteHNO ID: [id number] Author: JULIETA POOLE APRN.FERTILIZING MACHINE OPERATOR Service: ? Author Type: Nurse Practitioner Type: Progress Notes Filed: 08/17/2024 12:30 Note Text: This note was created using [email or web address]. Subjective Tracy Vazquez is a 54 year [...] follow-up with PCP as needed. Julieta Poole APRN.[facility]IAK[facility]01-31-2025 History of Present illness Narrative* Julieta Poole APRN.FERTILIZING MACHINE OPERATOR - 08/17/2024 12:09 PM EST This note [...] needed. Julieta Poole APRN.ANALILIA documented in this encounterAshtabula County Medical Center01-30-2025 Telephone encounter Note * Telephone Encounter - Milagros Abdullahi MA - 08/16/2024 2:23 PM EST Patient has changed PCP to outside of [facility]. New order will need to come from current overseeing PCP. Milagros Abdullahi MA [facility]01-30-2025 Telephone encounter Note* Telephone Encounter - Enrique Pacheco - 08/16/2024 12:39 PM EST Patient is needing a breast ultrasound order due to having a diagnostic mammogram on 09/18/2024. Please advise, thank you [facility]01-30-2025 Telephone encounter Note* Telephone Encounter - Marianna Romeo - 08/16/2024 12:07 PM EST Patient stopped in and has questions on how to use her Spiriva. She also wants to know what her labs was for. [facility] Work Phone: [phone]) [phone] Miscellaneous Notes* Telephone Encounter - Mraianna Romeo - 08/16/2024 12:07 PM EST Patient stopped in and has questions on how to use her Spiriva. She also wants to know what her labs was for. documented in this encounterAshtabula County Medical Center01-27-2025 Evaluation note* Diagnosis Onset Date [...] 2024 9:30am Pain, dental chronic August 9:30am [facility] Work Phone: 1(537) 617-474001-27-2025 Evaluation note* Diagnosis Onset Date Resolution Status [...] of torso acute [place] h 2024 12:46pm [facility] Work Phone: 1(657) 850-509001-21-2025 Telephone encounter Note* Telephone Encounter - Jason Salas RN - 08/07/2024 4:28 PM EST Patient called back, verified name and . She states that she does not know how to get into her mychart so she has not read the response from [place]. Read response to patient. She states that she had taken Zyrtec, Mucinex, and and Inhaler earlier and it helped for a few hours. Asked about Flonase use, she states that she does not use Flonase and has not for years as it caused nose bleeds. Patient has no further questions at this time. [facility]01-21-2025 Miscellaneous Notes* Telephone Encounter - [...] for once daily use. Will forward to FERTILIZING MACHINE OPERATOR for further advice. Tian Naylor LPN * Telephone Encounter - Tess Sevilla - 08/07/2024 2:24 PM EST Patient calling to report that she is experiencing increased phlegm today. She is wanting to know if she is able to take an additional dose of spireva (current sig 1X per day). Please contact patient to advise. documented in this encounterAs[facility]01-[facility] Telephone encounter Note * Telephone Encounter - Tian Naylor LPN - 08/07/2024 2:53 PM EST Spiriva is indicated for once daily use. Will forward to FERTILIZING MACHINE OPERATOR for further advice. Tian Naylor LPN [facility]01-21-2025 Telephone encounter Note* Telephone Encounter - Tess Sevilla - 08/07/2024 2:24 PM EST Patient calling to report that she is experiencing increased phlegm today. She is wanting to know if she is able to take an additional dose of spireva (current sig 1X per day). Please contact patient to advise. [facility]01-15-2025 Telephone encounter Note* Telephone Encounter [...] between administration of these medications, per http [email or web address]://advisor.[email or web address]/research executive/document.do?bid=6&qrs=0496189 Outcome: Caller voiced understanding, no further questions at this time. Reason for Disposition Caller has medicine question only, adult not sick, AND triager answers question Protocols used: Medication Question [id number] [facility]01-15-2025 Miscellaneous Notes* Telephone Encounter - [...] between administration of these medications, per http [email or web address]://advisor.[email or web address] [email or web address]/document.do?bid=6&yge=7974256 Outcome: Caller voiced understanding, no further questions at this time. Reason for Disposition Caller has medicine question only, adult not sick, AND triager answers question Protocols used: Medication Question [id number] documented in this encounterAshtabula [facility] Center01-14-2025 History of Present illness Narrative* [...] PATIENT PRESENTS WITH AN IMPLANTABLE OR ATTACHED PRODUCTION WELDER: No RADIOLOGY DEPARTMENT: General X-ray: Exam(s) Completed: Chest X-Ray PERIPHERAL IV DATA: Not applicable SIGNED BY: RT Hiren(Yung) July 31, 2024 11:06 AM documented in this encounterAshtabula County Medical Center01-14-2025 NoteHNO ID: [id number] Author: JIMBO MADRID RT(R) Service: ? Author [...] PATIENT PRESENTS WITH AN IMPLANTABLE OR ATTACHED PRODUCTION WELDER: No RADIOLOGY DEPARTMENT: General X-ray: Exam(s) Completed: Chest X-Ray PERIPHERAL IV DATA: Not applicable SIGNED BY: RT Hiren(R) July 31, 2024 11:06 [facility]01-14-2025 NoteHNO ID: [id number] Author: MONE BOYLE APRN.ANALILIA Service: ? Author Type: Nurse Practitioner Type: Progress Notes Filed: 07/31/2024 09:22 Note Text: Patient declined fugitive detective. Tracy Vazquez is a 54 year old female who presents for problem visit vaginal discharge, odor for 1 month(s). HPI: brownish discharge off/on. Some itching. Frequent urination with some low back pain and pelvic pain. Not sexually active. OB History T3 L3 SAB0 IAB0 Ectopic0 Multiple0 Live Births0 Executive Chef Assistant History LMP: Postmenopausal Age at Menarche: Age at First : Age at Menopause: Executive Chef Assistant History Comments: Sexual Activity: Not Currently; Male [...] Take 400 Units by mouth once daily. Brduwyxjvbiaeyp-Whjgxbhlf-YW (BROMFED DM) 2-30-10 mg/5 mL syrup Take 5 mL by mouth four times a day as needed. acetaminophen (TYLENOL 8 HOUR) 650 mg CR tablet Take 1 tablet by mouth every 8 hours as needed. Adhesive Tape (PAPER TAPE) 1 X 10 -yard tape Apply 1 application to affected area two times a day. mfqzaaxnkwr-pbzapxjfycmmm-ltjwwxgrx alafenamide (BIKTARVY) 50-200-25 mg per tablet Take [...] See Comments GLORIA CARTER (more content not included)...[facility] 07-31-2024 History of Present illness Narrative* Mone Boyle APRN.FERTILIZING MACHINE OPERATOR - 07/31/2024 8:52 AM EST Patient declined fugitive detective. Tracy Vazquez is a 54 year old female who presents for problem visit vaginal discharge, odorfor 1 month(s). HPI: brownish discharge off/on. Some itching. Frequent urination with some low back pain and pelvicpain. Not sexually active. OB History T3 L3 SAB0 IAB0 Ectopic0 Multiple0 Live Births0 Executive Chef Assistant History LMP: Postmenopausal Age at Menarche: Age at First : Age at Menopause: Executive Chef Assistant History Comments: Sexual Activity: Not Currently; Male [...] Take 400 Units by mouth once daily. Dkwhrkjkenoiikx-Nbmyuzvtr-GU (BROMFED DM) 2-30-10 mg/5 mL syrup Take 5 mL by mouth four times a dayas needed. acetaminophen (TYLENOL 8 HOUR) 650 mg CR tablet Take 1 tablet by mouth every 8 hours as needed. Adhesive Tape (PAPER TAPE) 1 X 10 -yard tape Apply 1 application to affected area two times a day. hcedggjyhug-ehmjyxomcyuoq-ngetpzxtm alafenamide (BIKTARVY) 50-200-25 mg per tablet Take [...] discussed with the Patient or Patient's Authorized Plaster Mixer. As applicable, any other physician, advance practice provider, medical student, or other health professional student that will be observing or involved in the sensitive examination for educational or training purposes was discussed with the Patient or Authorized Plaster Mixer. The Patient or Authorized Plaster Mixer has agreed to proceed with the sensitive examination. (Sensitive examination includes inspection and/or palpation of the breasts, pelvis, prostate and anorectal regions). EXAM: BP 110/62 Wt 125 lb 9.6 oz (57.0kg) GENERAL: pleasant, female in no apparent distress HEENT: Normocephalic, atraumatic, mucus membranes moist, and no lesions CHEST: Normal inspiratory effort PELVIC: external genitalia normal, normal Bartholin's glands, urethra, [place]'s glands, no vulvar lesions, no cervical lesions, [...] Level: 3 - Low documented in this encounterAshtabula [facility] Medical Center01-14-2025 Instructions* Patient Instructions* Ayad Metcalf APRN.CNP - 07/31/2024 8:46 AM EST Chest xray today. Stop using Incruse. Start Spiriva Respimat 2 sprays once daily. Recommend regular use of Mucinex. Albuterol as needed. Continue progress with smoking cessation. documented in this encounterAshtabula County Medical Center01-14-2025 NoteHNO ID: [id number] Author: AYAD METCALF APRN.CNP Service: ? Author [...] treated with multiple courses of steroids/antibiotics since [facility] for URI symptoms/productive cough. She most recently [...] is clear HIV (human immunodeficiency virus infection) ([facility]) 2009 Dr. Mcdonald-ID Left posterior fascicular block [...] BIKTARVY 50-200-25 mg per tablet Generic drug: hmcrolrefdm-wdownmzfwgvcd-xamvwuluq alafenamide Take 1 tablet by mouth once daily. Urkmsvnyxwrqnic-Uxvjrprxa-GW 2-30-10 mg/5 mL syrup Commonly known as: [...] analyzed all l (more content not included)... [facility]01-14-2025 History of Present illness Narrative* Bubba, Ayad Cartagena APRN.FERTILIZING MACHINE OPERATOR - 07/31/2024 8:14 AM EST Images from [...] been using Incruse, doesn't like the powder. [facility] 10/2023. PFT did not show obstruction. Reported productive cough, sinus congestion/PND and SOB. Started on Incruse. Has been treated with multiple courses of steroids/antibiotics since [facility] for URIsymptoms/productive cough. She most recently was [...] BIKTARVY 50-200-25 mg per tablet Generic drug: tfrokfjshwh-nsaekoknwddxl-psptcnpoq alafenamide Take 1 tablet by mouth once daily. Svrydrrekjwhxxm-Nmkbgpquy-TZ 2-30-10 mg/5 mL syrup Commonly known as: [...] Neut (k/uL) Date Value 03/14/2024 4.18 Abs Hickory (k/uL) Date Value 03/14/2024 0.47 Abs Eosin [...] patches encouraged. - follows with [facility] at [facility] - due for annual CT in [...] which included preparing to see the patient, qxlg-fk-klqp patient care, completing clinical documentation, performing a medically appropriate examination, counseling and educating the patient/family/caregiver, ordering medications, tests, or p rocedures, and communicating results to the patient/family/caregiver. documented in this encounterAshtabula [facility]01-07-2025 Telephone encounter Note * Telephone [...] instructions at that time. Stephenie Bardales MA [facility]01-07-2025 Miscellaneous Notes* Telephone Encounter - [...] was not any better. documented in this encounterAshtabula County [facility] Center01-07-2025 Telephone encounter Note * Telephone [...] in if she was not any better. [facility]12-27-20[facility] Telephone encounter Note* Telephone Encounter [...] up if not improving. Venecia Gusman MA [facility]12-27-2024 Miscellaneous Notes* Telephone Encounter - [...] 13, 2024 10:16 AM documented in this encounterAshtabula County Medical Center12-27-2024 Telephone encounter Note * Telephone [...] Kelly Durant July 13, 2024 10:16 AM [facility]11-21-2024 Telephone encounter Note* Telephone Encounter [...] we can schedule with DARIUS Naylor LPN [facility]11-21-2024 Miscellaneous Notes* Telephone Encounter - [...] advise. Venecia Gusman MA documented in this encounterAshtabula County Medical Center11-20-2024 Telephone encounter Note * Telephone [...] Please review and advise. Venecia Gusman MA [facility]11-17-2024 NoteHNO ID: [id number] Author: MEAGAN RIBEIRO APRN.FERTILIZING MACHINE OPERATOR Service: ? Author Type: Nurse Practitioner Type: [...] is clear HIV (human immunodeficiency virus infection) ([facility]) 2009 Dr. Mcdonald-ID Left posterior fascicular block [...] Inhale 1 Puff as instructed once daily. tkztixvauib-mtcmpldwjisxh-auiorbidd alafenamide (BIKTARVY) 50-200-25 mg per tablet Take 1 tablet by mouth once daily. amoxicillin-clavulanate potassium (AUGMENTIN) 875-125 mg per tablet Take 1 tablet by mouth two times a day for 7 days. Rqerllvwarpchgk-Gquqvgeqa-ZC (BROMFED DM) 2-30-10 mg/5 mL syrup Take [...] Alcohol use: Not Currently (more content not included)...[facility]11-17-2024 History of Present illness Narrative* Meagan Ribeiro APRN.FERTILIZING MACHINE OPERATOR - 06/03/2024 10:40 AM EST Images from [...] Inhale 1 Puff as instructed once daily. ferghxpbsao-cpgfhcwjuldjd-ccicacogh alafenamide (BIKTARVY) 50-200-25 mg per tablet Take 1 tablet bymouth once daily. amoxicillin-clavulanate potassium (AUGMENTIN) 875-125 mg per tablet Take 1 tablet by mouth two times a day for 7 days. Rzzyrehutwhsrhi-Mrmdalvzr-TE (BROMFED DM) 2-30-10 mg/5 mL syrup Take [...] throat - ICD9: 786.4, ICD10: R09.89 - BYGPZJFHCJKABKF-BEPTQOZQLUCIXFC-ZE 2 MG-30 MG-10 MG/5 ML ORAL SYRUP - Follow-up with your PCP in 3-5 days if symptoms have not improved or sooner if symptoms worsen - Discussed red flags and need for immediate medical evaluation if any occur. - Discussed supportive care treatment with fluids, rest and analgesia. - Discussed expected course of illness Meagan Ribeiro APRN.FERTILIZING MACHINE OPERATOR documented in this encounterAshtabula County Medical Center11-17-2024 Instructions* Patient Instructions* Meagan Ribeiro APRN.CNP - 06/03/2024 10:40 AM EST ASSESSMENT/PLAN: 1. Cat scratch - ICD9: 919.0, E906.8, ICD10: W55.03XA (primary diagnosis) - keep clean and dry. - AMOXICILLIN 875 MG-POTASSIUM CLAVULANATE 125 MG TABLET 2. Phlegm in throat - ICD9: 786.4, ICD10: R09.89 - VZMRSVOTZNZEFUS-SDFKLJVKPIAYBLI-FV 2 MG-30 MG-10 MG/5 ML ORAL SYRUP - Follow-up with your PCP in 3-5 days if symptoms have not improved or sooner if symptoms worsen - Discussed red flags and need for immediate medical evaluation if any occur. - Discussed supportive care treatment with fluids, rest and analgesia. - Discussed expected course of illness Meagan Ribeiro APRN.CNP documented in this encounterAshtabula County Medical Center11-11-2024 Telephone encounter Note * Telephone Encounter - Jimbo Luna MA - 05/28/2024 7:24 AM EST Patient given results and verbalized understanding of instructions given. Jimbo Luna MA [facility]11-11-2024 Miscellaneous Notes* Telephone Encounter - [...] improving. Rob Chirinos APRN.CNP documented in this encounterAshtabula County Medical Center11-11-2024 Telephone encounter Note * Telephone Encounter - Rob Chirinos APRN.CNP - 05/28/2024 7:12 AM EST COVID-19, influenza A, and influenza B PCR test are negative. Continue supportive therapies as discussed during visit. Follow-up with PCP if symptoms are not improving. Rob Chirinos APRN.FERTILIZING MACHINE OPERATOR [facility] Work Phone: 1(104) 951-370711-10-2024 Note* Addendum Note - Kathleen Maurice APRN.CNP - 05/27/2024 12:27 PM ESTAddended by: KATHLEEN MAURICE on: 05/27/2024 12:27 PM Modules accepted: Orders [facility]11-10-2024 Miscellaneous Notes* Addendum Note - Kathleen Maurice APRN.CNP - 05/27/2024 12:27 PM ESTAddended by: KATHLEEN MAURICE on: 05/27/2024 12:27 PM Modules accepted: Orders documented in this encounterAshtabula County Medical Center11-10-2024 NoteHNO ID: [id number] Author: KATHLEEN MAURICE APRN.CNP Service: ? Author Type: Nurse Practitioner Type: Progress Notes Filed: 05/27/2024 12:17 Note Text: CC: Patient presents with: Chest Congestion: Cough x3 days Laceration: L hand cut x4 days with animal caretaker HPI: Tracy Vazquez is a 54 year [...] Inhale 1 Puff as instructed once daily. ukhjpapfsxl-mapnhhrwwprxv-whtqqqxzk alafenamide (BIKTARVY) 50-200-25 mg per tablet Take [...] Not Currently Types: Leela (more content not included)...[facility]11-10-2024 History of Present illness Narrative* Kathleen Maurice APRN.FERTILIZING MACHINE OPERATOR - 05/27/2024 12:14 PM EST CC: Patient presents with: Chest Congestion: Cough x3 days Laceration: L hand cut x4 days with animal caretaker HPI: Tracy Vazquez is a 54 year [...] Inhale 1 Puff as instructed once daily. apixkxjhamk-peaoacwtmggpj-hqwpeuudd alafenamide (BIKTARVY) 50-200-25 mg per tablet Take [...] Patient agreeable to treatment plan. Kathleen Maurice APRN.FERTILIZING MACHINE OPERATOR documented in this encounterAshtabula County Medical Center10-25-2024 Telephone encounter Note * Telephone Encounter - Abigail William LPN - 05/11/2024 3:28 PM EDT Patient came in person to office and picked up documents. Copies made for patient chart. Abigail William LPN [facility]10-25-2024 Miscellaneous Notes* Telephone Encounter - [...] advise. Shraddha Cuevas LPN documented in this encounterAshtabula County Medical Center10-24-2024 Telephone encounter Note * Telephone [...] to do with paperwork. Abigail William LPN [facility]10-24-2024 Telephone encounter Note* Telephone Encounter - Prudencio Pedro MD - 05/10/2024 8:40 AM EDT Will review and complete. [facility]10-[facility] Telephone encounter Note* Telephone Encounter - Shraddha Cuevas LPN - 05/09/2024 7:12 PM EDT Wound notes printed. In inbox for review. Shraddha Cuevas LPN [facility]10-23-2024 Telephone encounter Note* Telephone Encounter - Prudencio Pedro MD - 05/09/2024 10:57 AM EDT I would need form to complete and records from wound care to confirm wound has healed since she is no longer in our care. 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 [facility]10-[facility] Telephone encounter Note* Telephone Encounter - Shraddha Cuevas LPN - 05/09/2024 10:19 AM EDT Patient dropped off wound center paperwork of healed wound. Placed in Dr. Singh inbox for review. Patient states she needs a sign off from Dr. Pedro for workers compensation. No workers comp forms brought with patient. Please advise. Shraddha Cuevas LPN [facility]09-23-2024 Telephone encounter Note* Telephone Encounter - Gem Polanco LPN - 04/09/2024 10:45 AM EDT Patient called in again this morning wondering if this was sent. Let patient know it has been sent to the provider. Gem Polanco LPN [facility]09-23-2024 Miscellaneous Notes* Telephone Encounter - [...] advise. Frances White LPN documented in this encounterAshtabula County Medical Center09-20-2024 Telephone encounter Note * Telephone Encounter - Gem Polanco LPN - 04/06/2024 3:53 PM EDT Patient called in wondering if this was sent. Let patient know it has been sent to the provider butit has not been sent yet. Gem Polanco LPN [facility]09-20-2024 Telephone encounter Note* Telephone Encounter - Tian Naylor LPN - 04/06/2024 1:45 PM EDT [facility] 11/09/23 RX pended. [facility]09-20-[facility] Telephone encounter Note* Telephone Encounter [...] Please review and advise. Frances White LPN [facility]09-11-2024 Telephone encounter Note* Telephone Encounter - Mahsa Marquez MA - 03/28/2024 3:44 PM EDT Patient returned call and given message below. Patient states it is easier said then done to stop smoking. She is asking if there are any smoking sensation classes to go to? [facility]09-11-2024 Miscellaneous Notes* Telephone Encounter - [...] will prevent further damage to lung tissue. [facility] Tian Naylor LPN * Telephone Encounter - Stephenie Lafleur - 03/28/2024 9:29 AM EDT Pt called to ask if there is a treatment for Emphysema. She has an upcoming appointment but not until 07/04/24. documented in this encounterAshtabula County Medical Center09-11-2024 Telephone encounter Note * Telephone Encounter - Tian Naylor LPN - 03/28/2024 9:40 AM EDT Patient is using Incruse, which helps relax the smooth muscles of the airway to assist in easier breathing. The best treatment for emphysema is to stop smoking, which will prevent further damage to lung tissue. [facility] Tian Naylor LPN [facility]09-11-2024 Telephone encounter Note* Telephone Encounter - Stephenie Lafleur - 03/28/2024 9:29 AM EDT Pt called to ask if there is a treatment for Emphysema. She has an upcoming appointment but not until 07/04/24. [facility] Work Phone: 1(825) 531-224409-10-2024 History of Present illness Narrative* Rob Chirinos [...] plan of care. Will be seen at [facility]. Rob Chirinos APRN.ANALILIA documented in this encounterAshtabula County Medical Center09-05-2024 Telephone encounter Note * Telephone Encounter - Coretta Fierro RN - 03/22/2024 10:05 AM EDT Detailed message left on patient's identified voicemail of provider's response below, and to call provider's office for any questions. Coretta Fierro RN [facility]09-05-2024 Miscellaneous Notes* Telephone Encounter - [...] Provider's reply. Thank you. documented in this encounterAshtabula County Medical Center09-05-2024 Telephone encounter Note * Telephone Encounter - Prudencio Pedro MD - 03/22/2024 9:53 AM EDT She can take tylenol. Yes she can take Prevacid. I do not think she needs a referral to cardiology at this time but can take this up with her new PCP at upcoming OV. [facility]09-05-2024 Telephone encounter Note* Telephone Encounter [...] call patient with Provider's reply. Thank you. [facility]09-04-2024 Telephone encounter Note* Telephone Encounter - Gely Estrada RN - 03/21/2024 3:10 PM EDT Enrique Cota with [facility] calls to report they have received everything needed except the signed surgical clearance form. Enrique requests that surgical clearance form be faxed back to ATTN: Enrique Cota because there are several Enrique's in the office at [phone]. Gely Estrada RN [facility]09-04-2024 Miscellaneous Notes* Telephone Encounter - Gely Estrada RN - 03/21/2024 3:10 PM EDT Enrique Cota with [facility] calls to report they have received everything needed except the signed surgical clearance form. Enrique requests that surgical clearance form be faxed back to ATTN: Enrique Cota because there are several Enrique's in the office at [phone]. Gely Estrada RN * Telephone Encounter - Coretta Fierro RN - 03/21/2024 1:25 PM EDT Patient calling to ask if her pre-op information was faxed to Dr. Hu's office today. Verified with provider's nurse that this was faxed today and patient updated. Coretta Fierro RN documented in this encounterAshtabula County Medical Center09-04-2024 Telephone encounter Note * Telephone Encounter - Coretta Fierro RN - 03/21/2024 1:25 PM EDT Patient calling to ask if her pre-op information was faxed to Dr. Hu's office today. Verified with provider's nurse that this was faxed today and patient updated. Coretta Fierro RN [facility]09-04-2024 Telephone encounter Note* Telephone Encounter [...] form. Patient voiced understanding. Zeny Aquino RN [facility]09-04-2024 Miscellaneous Notes* Telephone Encounter - [...] understanding. Zeny Aquino RN documented in this encounterAshtabula County Medical Center09-04-2024 History of Present illness Narrative* [...] was diagnosed with COPD exacerbation yesterday at [facility] after presenting with chest congestion and [...] daily. (Patient not taking: Reported on 03/20/2024) vnvcrcbsvku-idiscbohntkqr-myongfngv alafenamide (BIKTARVY) 50-200-25 mg per tablet Take [...] Abs Lymph 1.00 - 4.00 k/uL 2.49 Hickory% % 6.4 Abs Hickory <0.87 k/uL 0.47 Eosin% % 1.5 Abs [...] surgery. Prudencio Pedro MD documented in this encounterAshtabula County Medical Center09-04-2024 Miscellaneous Notes* Telephone Encounter - [...] take that. Please advise. documented in this encounterAshtabula County Medical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 [facility] (Additional imaging) documented in this encounterAshtabula County Medical Center02-24-2023 Miscellaneous Notes* Telephone Encounter - [...] pt Roxane Evans RN documented in this encounterAshtabula County Medical Center02-22-2023 Miscellaneous Notes* Telephone Encounter - [...] improving. Rob Chirinos APRN.CNP documented in this encounterAshtabula County Medical Center02-21-2023 Instructions* Patient Instructions* Rob Chirinos [...] or concerning to you. documented in this encounterAshtabula County Medical Center02-21-2023 History of Present illness Narrative* [...] Puffs as instructed every 4 hours asneeded. sjoioqeezhb-kylzjtbtcrbuw-jaquwzcxy alafenamide (BIKTARVY) 50-200-25 mg per tablet Take [...] of care. This note was generated using Param[employer] software. It may contain errors in wording, punctuation, or spelling. Rob Chirinos APRN.FERTILIZING MACHINE OPERATOR documented in this encounterAshtabula County Medical Center02-20-2023 Miscellaneous Notes* Telephone Encounter - [...] and she is almost out. [facility]ses [facility] [place]. Please call pt with update. Thank you. [...] over the counter. I would have her warehouse order picker a lactobacillus or acidophilus atlocal pharmacy. [...] you. Jason Boston RN documented in this encounterAshtabula County Medical Center02-16-2023 History of Present illness Narrative* [...] Puffs as instructed every 4 hours asneeded. wbuahiszdjx-hsdwawsexvkkt-vvkndlila alafenamide (BIKTARVY) 50-200-25 mg per tablet Take [...] detail. Prudencio Pedro MD documented in this encounterAshtabula County Medical Center02-16-2023 Miscellaneous Notes* Telephone Encounter - [...] to help with this. documented in this encounterAshtabula County Medical Center02-08-2023 Miscellaneous Notes* Telephone Encounter - [...] that she had lung screening done at [facility]. Patient had CT Scan done. Patientasking for provider to review and advise. Patient was referred to [facility] pulmonology by Namrata Cho NP. Please review and advise, Zeny Aquino RN documented in this encounterAshtabula County Medical Center02-08-2023 Miscellaneous Notes* Telephone Encounter - Kacey Narayanan LPN - 08/25/2022 5:23 PM EST Patient calling regarding returning call to go over results . Conferenced to Kamryn in Dr. Killian at phone number ([phone]) for assistance. Kacey Narayanan LPN documented in this encounterAshtabula County Medical Center02-01-2023 Instructions* Patient Instructions* Diamond Bright APRN.ANALILIA - 08/18/2022 9:24 AM EST Keep area clean, dry and covered Watch area for surrounding redness, excessive warmth, drainage, fever or chills- return to office if this develops. Go to ER with red flag symptoms- which would be red streaking up the leg documented in this encounterAshtabula County Medical Center02-01-2023 History of Present illness Narrative* [...] Puffs as instructed every 4 hours asneeded. qgajielvbmj-dclizmetdmlfg-ufnfmblml alafenamide (BIKTARVY) 50-200-25 mg per tablet Take [...] - FECAL OCCULT BLOOD TEST Diamond Bright APRN.FERTILIZING MACHINE OPERATOR Prescription instructions reviewed with patient as applicable. [...] which included preparing to see the patient, huas-eq-jypt patient care, completing clinical documentation, obtaining and/or reviewing separately obtained history, performing a medically appropriate examination, counseling and educating the pat ient/family/caregiver, and ordering medications, tests, or procedures. documented in this encounterAshtabula County Medical Center01-30-2023 Miscellaneous Notes* Telephone Encounter - [...] had any other directions. documented in this encounterAshtabula County Medical Center01-23-2023 Miscellaneous Notes* Addendum Note - Gem Wilder APRN.CNM - 08/09/2022 1:40 PM ESTAddended by: GEM WILDER on: 08/09/2022 01:40 PM Modules accepted: Orders * Addendum Note - Jason Cintron MA - 08/09/2022 1:39 PM ESTAddended by: JASON CINTRON on: 08/09/2022 01:39 PM Modules accepted: Orders documented in this encounterAshtabula County Medical Center01-23-2023 History of Present illness Narrative* [...] external genitalia normal, normal Bartholin's glands, urethra, [place]'s glands, no vulvar lesions, no cervical lesions, [...] Level: 3 - Low documented in this encounterAshtabula County Medical Center01-19-2023 Miscellaneous Notes* Telephone Encounter - [...] in prescription for zyrtec? [facility] Please review and advise, Zeny Aquino RN documented in this encounterAshtabula County Medical Center01-19-2023 Miscellaneous Notes* Telephone Encounter - Cassie Shipley MA - 08/05/2022 8:14 AM EST Patient notified of results, verbalized understanding. Cassie Shipley MA * Telephone Encounter - KERRI Fragoso - 08/05/2022 7:37 AM EST Please let patient know COVID and flu negative. documented in this encounterAshtabula County Medical Center01-18-2023 Miscellaneous Notes* Telephone Encounter - [...] problem. Venecia Davies LPN documented in this encounterAshtabula County Medical Center01-18-2023 Miscellaneous Notes* Telephone Encounter - [...] phone patient with reply. documented in this encounterAshtabula County Medical Center01-17-2023 Miscellaneous Notes* Telephone Encounter - [...] home now and can be reached at [phone]. Venecia Davies LPN * Telephone Encounter - Prudencio Pedro MD - 08/03/2022 3:18 PM EST We will call her when they are back. * Telephone Encounter - Jimbo Pacheco Pss - 08/03/2022 2:07 PM EST Patient calling for lab results from yesterday. documented in this encounterAshtabula County Medical Center01-17-2023 Miscellaneous Notes* Telephone Encounter - Coretta Fierro RN - 08/03/2022 3:19 PM EST Pt calling and requesting Lung Cancer Screening referral be faxed to [facility] at [phone]. Faxed as requested. Coretta Fierro RN documented in this encounterAshtabula County Medical Center01-16-2023 Miscellaneous Notes* Telephone Encounter - Diamond Bright APRN.ANALILIA - 08/02/2022 2:58 PM EST Reviewed. Thanks, Diamond Bright APRN.ANALILIA * Telephone Encounter - Venecia Davies LPN - 08/02/2022 2:37 PM EST Also faxed pulmonary testing to [facility]. Venecia Davies LPN * Telephone Encounter - Venecia Davies LPN - 08/02/2022 2:17 PM EST Pt called back and reports she spoke with [facility] and they can do the Lung Cancer Screening at [facility]. Faxnumber [phone]. Faxed order/OV/face sheet. Done. Venecia Davies LPN [...] this being able daniela done local unless [facility] has this option. Mitch will see what ARIC Fields has to say about where to best go for lung cancer screening. documented in this encounterAshtabula County Medical Center01-16-2023 History of Present illness Narrative* [...] is clear HIV (human immunodeficiency virus infection) ([facility]) [address] Dr. Mcdonald-ID Persistent cough 07/2022 Tobacco [...] mouth daily before breakfast. 1/2 hr beforemeal. qpwknogwjev-syxwhkkurchyd-jgruqybbt alafenamide (BIKTARVY) 50-200-25 mg per tablet Take [...] No history of dysuria, frequency or incontinence EDUCATIONAL SIGN LANGUAGE INTERPRETER: Negative for abnormal vaginal bleeding, abnormal vaginal [...] transportation - ICD9: V15.89, ICD10: Z59.82 - SURGERY TECHNICIAN [CONSULT TO SOCIAL WORK] 9. Encounter for [...] agreeable to treatment plan. documented in this encounterAshtabula County Medical Center01-13-2023 History of Present illness Narrative* Kathleen Maurice APRN.ANALILIA - 07/30/2022 8:32 AM EST Images from the original note were not included. Subjective Patient came in with complaints of cat bite on left forearm. Patient says it is her own cat. Patient denies any fever chills nausea vomiting swelling redness. The history is provided by the patient. No high school foreign language tutor was used. Animal Bite Review of Systems [...] is clear HIV (human immunodeficiency virus infection) ([facility]) [address] Dr[address] Mcdonald-ID Persistent cough 07/2022 Tobacco [...] Puffs as instructed every 4 hours asneeded. mwptwnjvwgy-vqzznmvnkmtyc-igcjvgvrm alafenamide (BIKTARVY) 50-200-25 mg per tablet Take [...] patient. Kathleen Maurice APRN.CNP documented in this encounterAshtabula County Medical Center01-05-2023 Miscellaneous Notes* Telephone Encounter - [...] with update. Thank you. documented in this encounterAshtabula County Medical Center01-03-2023 History of Present illness Narrative* CHING Orellana - 07/20/2022 9:15 AM EST PULM FUNCTION SMARTBLOCK: Provider: Prudencio Pedro MD Assisting Tech: CHING Orellana Spirometry w/BD: 1 LV - Box: 1 documented in this encounterAshtabula County Medical Center12-21-2022 Miscellaneous Notes* Telephone Encounter - [...] need tetanus shot updated. documented in this encounterAshtabula County Medical Center12-20-2022 History of Present illness Narrative* Chantel Shah APRN.FERTILIZING MACHINE OPERATOR - 07/06/2022 4:41 PM EST Images from [...] Puffs as instructed every 4 hours asneeded. qvfkvhkjktf-lxilbjfrdqfhi-euuktxjgk alafenamide (BIKTARVY) 50-200-25 mg per tablet Take [...] Updated. Chantel Shah APRN.CNP documented in this encounterAshtabula County Medical Center12-19-2022 History of Present illness Narrative* [...] Puffs as instructed every 4 hours asneeded. eirsbsnyhff-gzrvyoqplwpmr-wzrfdnohv alafenamide (BIKTARVY) 50-200-25 mg per tablet Take [...] which included preparing to see the patient, qpqz-ej-qqgd patient care, completing clinical documentation, obtaining and/or reviewing separately obtained history, performing a medically appropriate examination, and counseling and educating the patient/family/caregiver. documented in this encounterAshtabula County Medical Center12-14-2022 Miscellaneous Notes* Telephone Encounter - [...] provider would advise. Please review and advise, Zney Aquino RN documented in this encounterAshtabula County Medical Center12-13-2022 History of Present illness Narrative* [...] Puffs as instructed every 4 hours asneeded. lgcuwlvykju-pizynwnaieebb-nijjniiza alafenamide (BIKTARVY) 50-200-25 mg per tablet Take [...] YR Prudencio Pedro MD documented in this encounterAshtabula County Medical Center12-12-2022 Miscellaneous Notes* Telephone Encounter - [...] advise, Zeny Aquino RN documented in this encounterAshtabula County Medical Center12-05-2022 Miscellaneous Notes* Telephone Encounter - Abigail William LPN - 06/21/2022 2:47 PM EST Left detailed message on secure VM regarding provider's message. * Telephone Encounter - Prudencio Pedro MD - 06/21/2022 12:01 PM EST 3 month rx for prevacid sent to pharmacy. Call if not improving symptoms in 1-2 weeks. * Telephone Encounter - Mariangel Connors [facility] - 06/21/2022 11:04 AM EST Tracy Vazquez is calling Prudencio Pedro MD today to request a prescription for GERD,medication to be sent to [facility] in [place], if provider agrees to restarting this medication. Patient is stating it was prevacid Patient has been identified by name and birthdate. Duration of symptoms: N/A Person calling: self Call patient at: at home [phone] (home) Was an appointment scheduled: No Closing statement: Results or non-symptom based questions: Thank you for calling [facility], your call will be returned within the next business day. Mariangel Connors [employer] documented in this encounterAshtabula County Medical Center11-21-2022 Miscellaneous Notes* Telephone Encounter - [...] advise. Leda Burdick LPN documented in this encounterAshtabula County Medical Center11-15-2022 Miscellaneous Notes* Telephone Encounter - [...] Please advise. Thank you. documented in this encounterAshtabula County Medical Center11-15-2022 Miscellaneous Notes* Telephone Encounter - [...] weeks. Venecia Davies LPN documented in this encounterAshtabula County Medical Center11-11-2022 Miscellaneous Notes* Telephone Encounter - [...] a cough, and just wants to test dnaiela on the safe side. Has not been exposed to TB that she knows of. Reports she had covid a month ago and read somewhere that a lot of people who get covid also get TB. Please advise patient. documented in this encounterAshtabula County Medical Center11-09-2022 Miscellaneous Notes* Telephone Encounter - [...] to try changing medications. documented in this encounterAshtabula County Medical Center10-31-2022 Miscellaneous Notes* Telephone Encounter - [...] get the flu shot? documented in this encounterAshtabula County Medical Center10-17-2022 Miscellaneous Notes* Telephone Encounter - [...] Ayoub. 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 Please review and advise, Zeny Aquino RN documented in this encounterAshtabula County Medical Center09-28-2022 Miscellaneous Notes* Telephone Encounter - [...] advise. Abigail August LPN documented in this encounterAshtabula County Medical Center09-26-2022 Miscellaneous Notes* Telephone Encounter - [...] she was asking for Paxlovid rx. Aware CO [employer] and PCP are both out of office today. Patient said her symptoms began 2.5 months ago with coughing. Patient said she can not do virtual visit does not know how to do that. Aware can not schedule phone visit. Advised to go to [facility] for evaluation.Patient said her transportation will not pick her up since she has COVID, she is afraid of passing to her friend. Advised to wear double mask if friend brings her express care. Patient said she will decide what she is going to do. documented in this encounterAshtabula County Medical Center09-23-2022 History of Present illness Narrative* Diamond Bright APRN.FERTILIZING MACHINE OPERATOR - 04/09/2022 11:49 AM EDT Covid 04/09/2022 Patient presents with: ER F/U: [facility] on Mar 18 for bronchitis SUBJECTIVE: This is a 52 year old that is here today for Above Complaints. HOSPITAL/ER FOLLOW UP: Reason for visit: cough and congestion Which facility: [facility] Date of visit: 03/18/2022 Diagnosis: cold [...] Puffs as instructed every 4 hours asneeded. hqiybahhetl-jbqciyorlvocl-lyngmdcrf alafenamide (BIKTARVY) 50-200-25 mg per tablet Take 1 tablet bytxuth once daily. No current facility-administered medications for [...] which included preparing to see the patient, oauk-ft-wzwz patient care, completing clinical documentation, obtaining and/or reviewing separately obtained history, performing a medically appropriate examination, counseling and educating the pat ient/family/caregiver, and ordering medications, tests, or procedures. . documented in this encounterAshtabula County Medical Center09-19-2022 Miscellaneous Notes* Telephone Encounter - [...] problem. Venecia Davies LPN documented in this encounterAshtabula County Medical Center09-15-2022 Miscellaneous Notes* Telephone Encounter - Kacey Schneider Ma - 04/01/2022 11:47 AM EDT Message left for pt to call back. Kacey Schneider MA * Telephone Encounter - Puneet Montiel MD - 04/01/2022 9:54 AM EDT I can give her a little more. If continues, needs seen-even if it is urgent care for continued cough. * Telephone Encounter - Mariangel Connors [facility] - 04/01/2022 8:48 [...] she can have an RX sent to [facility] in [place]. Or what else she can do for the lingering cough. Her phone number is [phone] Patient said she was told she had a bacterial infection in the bronchial tubes. This was two weeks ago. documented in this encounterAshtabula County Medical Center08-04-2022 History of Present illness Narrative* [...] is clear HIV (human immunodeficiency virus infection) ([facility]) [address] Dr[address] Mcdonald-CARLOS Previous Surgical History PAST [...] 1 tablet by mouth every 12 hours. teukdbbbwqa-kbtijeosbwtto-jilrgellk alafenamide (BIKTARVY) 50-200-25 mg per tablet Take [...] VOLUMES Prudencio Pedro MD documented in this encounterAshtabula County Medical Center07-13-2022 Miscellaneous Notes* Telephone Encounter - David Perez Ma - 01/27/2022 12:09 PM EDT PA approved, left message on confidential vm David Perez Ma * Telephone Encounter - David Perez Ma - 01/26/2022 4:18 PM EDT PA submitted through [employer] will wait for response David Perez Ma * Telephone Encounter - Mattie Serrano LPN - 01/26/2022 2:24 PM EDT Tracy wants office to be aware that fexofenadine (xiao) will need to have a PA. Generic Mucinex is covered and Patient was able to pickup. Patient did not ask how much pseudoephedrin-guaifenesin was out of pocket. Mattie Serrano LPN documented in this encounterAshtabula County Medical Center07-12-2022 Miscellaneous Notes* Telephone Encounter - Milagros Chen Cma - 01/26/2022 2:22 PM EDT Patient notified and verbalized understanding Milagros Chen Cma * Telephone Encounter - Diamond Bright APRN.CNP - 01/26/2022 12:17 PM EDT Normal chest xray. Continue with treatment as discussed in office ThanksDiamond APRN.CNP documented in this encounterAshtabula County Medical Center07-12-2022 History of Present illness Narrative* Diamond Kaila, DARIUS.FERTILIZING MACHINE OPERATOR - 01/26/2022 11:05 AM EDT 01/26/2022 Patient [...] Mite MEDICATIONS Current Outpatient Medications Medication Sig ezatmhfeyre-bzriikpbkydtd-tmhiounxn alafenamide (BIKTARVY) 50-200-25 mg per tablet Take [...] [facility]. [facility] Encounter for screening mammogram for breast cancer documented in [facility]* Diagnosis Acute cough- Primary Eye drainage Redness or discharge of eye Smoking Tobacco use disorder documented in this [facility] noteNo assessment information availableWWayne Hospital Work Phone: Evaluation note* Diagnosis Persistent cough- Primary Cough Suspected COVID-19 virus infection Tobacco use Tobacco use disorder documented in this encounter [facility] note* Diagnosis Cough, unspecified type- Primary Symptoms of upper respiratory infection (URI) Tobacco use Tobacco use disorder Seasonal allergies Allergic rhinitis, cause unspecified documented in this encounter [facility]* Diagnosis Seasonal allergies Allergic rhinitis, cause unspecified documented in this encounter [facility] note* Diagnosis Acute right-sided low back pain with right-sided sciatica- Primary Need for COVID-19 vaccine documented in this encounter [facility]* Diagnosis Gingivitis- Primary Chronic gingivitis, plaque induced documented in this [facility]* Diagnosis Cat bite, initial encounter- Primary Need for tetanus booster Need for prophylactic vaccination with tetanus toxoid alone documented in [facility]* Diagnosis Persistent cough Cough Tobacco use Tobacco use disorder documented in this encounter [facility] note* Diagnosis Cat bite, initial encounter- Primary documented in this [facility]* Diagnosis Routine physical examination- Primary [...] symptom status (HCC) documented in this encounter [facility]* Diagnosis Vitamin D deficiency- Primary Unspecified vitamin D deficiency documented in this encounter [facility]* Diagnosis Vaginal discharge- Primary Leukorrhea, not specified as infective documented in this encounter [facility] [place] [facility]* Diagnosis Cat bite, initial encounter- Primary Encounter for screening fecal occult blood testing Special screening for malignant neoplasms, colon documented in this encounter [facility] [place] [facility]* Diagnosis Chronic obstructive pulmonary disease, unspecified COPD type (HCC)- Primary documented in this encounter [facility] [place] [facility]* Diagnosis Onset Date Resolution Status Encounter for screening for malignant neoplasm of lung acute Tobacco use disorder, continuous acute [facility] Work Phone: Evaluation note* Diagnosis Tobacco use- Primary Tobacco use disorder Cat scratch Other and unspecified superficial injury of other, multiple, and unspecified sites, without mention of infection Cat bite, initial encounter documented in this encounter [facility] [place] [facility]* Diagnosis Vaginal discharge Leukorrhea, not specified as infective Bacterial vaginosis Vaginitis and vulvovaginitis, unspecified documented in this encounter [facility]Eval[facility] [place] [facility]* Diagnosis Viral illness- Primary Unspecified viral infection, in conditions classified elsewhere and of unspecified site Loose stools Abnormal feces [facility] Cat bite, initial encounter- Primary documented [facility] encounter [facility]* Diagnosis Multiple abrasions- Primary Abrasion or friction burn of other, multiple, and unspecified sites, without mention of infection [facility]* Diagnosis Vitamin D deficiency- Primary Unspecified vitamin D deficiency Smoking Tobacco use disorder [facility]* Diagnosis Abnormal mammogram- Primary Abnormal mammogram, unspecified documented in this encounter [facility]* Diagnosis Vaginal discharge- Primary Leukorrhea, not specified as infective Urinary frequency [facility]* Diagnosis Vaginal itching- Primary Pruritus of genital organs documented in this encounter [facility]* Diagnosis Simple chronic bronchitis (HCC)- Primary Simple chronic bronchitis Centrilobular emphysema (HCC) Other emphysema Cigarette smoker Tobacco use disorder [facility] Viral illness- Primary Unspecified viral infection, in conditions classified elsewhere and of unspecified site Loose stools Abnormal feces documented in this encounter [facility] note* Diagnosis Abnormal mammogram- Primary Abnormal mammogram, unspecified documented in this encounter [facility] note* Diagnosis Pain in left wrist Pain in joint, forearm documented in this encounter [facility] note* Diagnosis Abnormal mammogram Abnormal mammogram, unspecified documented in this encounter [facility] note* Diagnosis Encounter for screening mammogram for breast cancer [facility] [place] [facility] Diagnosis Abnormal mammogram Abnormal mammogram, unspecified documented in this encounter [facility] note* Diagnosis Abnormal mammogram Abnormal mammogram, unspecified documented in this encounter [facility] note* Diagnosis Abnormal mammogram Abnormal mammogram, unspecified documented in this encounter [facility] note* Diagnosis Left wrist pain- Primary Pain in joint, forearm Closed fracture of left wrist, initial encounter documented in this encounter [facility] note* Diagnosis Productive cough Cough documented in this encounter [facility] note* Diagnosis Acute pain of left shoulder- Primary [facility] [place] [facility]* Diagnosis Persistent cough Cough Suspected COVID-19 virus infection documented in this encounter [facility] note* Diagnosis Annual physical exam- Primary Routine general medical examination at a [facility] Screening for colon cancer Special screening for malignant neoplasms, colon Depression screening Screening for depression Abnormal mammogram Abnormal mammogram, unspecified Tobacco use disorder, continuous Tobacco use disorder Centrilobular emphysema (HCC) Other emphysema HIV infection, unspecified symptom status (HCC) documented in this encounter [facility] note* Diagnosis Productive cough Cough [facility] [place] [facility]* Diagnosis Encounter for screening mammogram for breast cancer [facility] [place] [facility]* Diagnosis Nausea and vomiting, unspecified vomiting type- Primary [facility] [place] [facility]* Diagnosis Abnormal mammogram- Primary Abnormal mammogram, unspecified [facility] [place] [facility]* Diagnosis Centrilobular emphysema (HCC) Other emphysema [facility] [place] [facility]* Diagnosis Centrilobular emphysema (HCC)- Primary Other emphysema Chronic bronchitis, unspecified chronic bronchitis type (HCC) Cigarette smoker Tobacco use disorder [facility] [place] [facility] Diagnosis Nausea- Primary Nausea alone History of vomiting Personal history of other specified diseases [facility] this [facility] [place] [facility]* Diagnosis Acute sinusitis, recurrence not specified, unspecified location- Primary documented in this encounter [facility] [place] [facility]* Diagnosis Encounter related to worker's compensation claim- Primary Other general medical examination for administrative purposes documented [facility] this [facility] [place] [facility]* Diagnosis Partial thickness burn of right foot, initial encounter- Primary documented [facility] [place] [facility]* Diagnosis Partial thickness burn of right foot, initial encounter [facility] this [facility] [place] [facility]* Diagnosis Partial thickness burn of right foot, initial encounter- Primary Centrilobular emphysema (HCC)- Primary Other emphysema Current smoker Tobacco use disorder documented [facility] this [facility] [place] [facility]* Diagnosis Partial thickness burn of right foot, initial encounter- Primary Cellulitis of skin Cellulitis and abscess of unspecified site documented [facility] this [facility] [place] [facility]* Diagnosis Partial thickness burn of right foot, sequela- Primary documented in this [facility] [place] [facility]* Diagnosis Visit for wound check- Primary Encounter for other specified aftercare documented [facility] this [facility] [place] [facility]* Diagnosis Preop examination- Primary Preoperative examination, unspecified documented in this encounter [facility] [place] [facility]* Diagnosis Viral URI with cough- Primary Acute upper respiratory infections of unspecified site COPD with exacerbation (HCC) Obstructive chronic bronchitis with exacerbation Persistent cough Cough Suspected COVID-19 virus infection documented in this encounter [facility] [place] [facility]* Diagnosis Pre-op evaluation- Primary Preoperative examination, unspecified Partial thickness burn of right foot, subsequent encounter COPD with exacerbation (HCC) Obstructive chronic bronchitis with exacerbation 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 documented [facility] this [facility] [place] [facility]* Diagnosis Procedure not carried out- Primary Procedure not carried out for other reasons documented [facility] this [facility] [place] [facility]* Diagnosis Acute pain of left shoulder documented in this [facility] [place] [facility]* Diagnosis Productive cough Cough documented in this [facility] [place] [facility]* Diagnosis Fall, initial encounter Rib pain on left side Chest pain, unspecified Injury of left wrist, initial encounter documented in this encounter [facility] [place] [facility]* Diagnosis Productive cough Cough [facility] Diagnosis Acute cough documented in this [facility] [place] [facility]* Diagnosis Visit for wound check- Primary Encounter for other specified aftercare [facility]* Diagnosis Respiratory infection- Primary Other diseases of respiratory system, not elsewhere classified documented in this [facility] [place] [facility]* Diagnosis Cat scratch- Primary Other and unspecified superficial injury of other, multiple, and unspecified sites, without mention of infection Phlegm in throat Abnormal sputum documented [facility] this [facility] [place] [facility]* Diagnosis Centrilobular emphysema (HCC)- Primary Other emphysema Simple chronic bronchitis (HCC) Simple chronic bronchitis Cigarette smoker Tobacco use disorder Productive cough Cough Gastroesophageal reflux disease, unspecified whether esophagitis present Productive cough Cough documented [facility] this [facility] [place] [facility]* Diagnosis Vaginal discharge- Primary Leukorrhea, not specified as infective Urinary frequency documented in this [facility] [place] [facility]* Diagnosis Productive cough Cough documented in this [facility] [place] [facility]* Diagnosis Impacted cerumen of right ear- Primary Impacted cerumen documented in this [facility] [place] [facility]* Diagnosis Pulmonary emphysema, unspecified emphysema type (HCC)- Primary documented in this [facility] [place] [facility]* Diagnosis Abnormal mammogram Abnormal mammogram, unspecified documented in this [facility] [place] [facility]* Diagnosis URI, acute- Primary Acute upper respiratory infections of unspecified site documented in this encounter [facility] [place] [facility]* Diagnosis Viral URI- Primary Acute upper respiratory infections of unspecified site Paresthesias in right hand Disturbance of skin sensation documented in this [facility] [place] [facility]* Diagnosis Chronic obstructive pulmonary disease with (acute) exacerbation (HCC) Acute upper respiratory infection Acute upper respiratory infections of unspecified site [facility]* Diagnosis COPD with exacerbation (HCC)- Primary Obstructive chronic bronchitis with exacerbation Tobacco use Tobacco use disorder documented in this [facility] [place] [facility]* Diagnosis Mouth pain- Primary Other and unspecified diseases of the oral soft tissues [facility]* Diagnosis Cough with sputum- Primary Cough Right lower quadrant abdominal pain Abdominal pain, right lower quadrant documented in this [facility] [place] [facility]* Diagnosis Nausea- Primary Nausea alone Flatulence Flatulence, eructation, and gas pain Epigastric pain Abdominal pain, epigastric Centrilobular emphysema (HCC)- Primary Other emphysema Simple chronic bronchitis (HCC) Simple chronic bronchitis Cigarette smoker Tobacco use disorder [facility] Additional Instructions CT head negative. Use Tylenol as needed. Follow-up your doctor.[facility] Work Phone: Hospital Discharge instructionsAmbulatory Orders* Dermatology Location: None Selected [facility] Work Phone: Hospital Discharge instructionsAdditional Instructions Take Tylenol every 6 hours as needed. If you feel your symptoms are worsening such as severe headache, vomiting, vision changes or trouble moving your arms and legs etc. come back to the emergency room.[facility] Work Phone: Hospital Discharge instructionsAmbulatory Orders* Gastroenterology Location: None Selected [facility] Work Phone: Hospital Discharge instructionsAdditional Instructions Your blood test look normal. Follow-up for your abdominal ultrasound is scheduled.[facility] Work Phone: Progress note Author Juvencio Colon [facility] Note Date/Time May 02, 2025 1 0:13am [facility] [address] [place] [address] OFFICE VISIT Date of Service: 05/02/25 MR#: [id number] Acct: [id number] Name: TRACY VAZQUEZ Rep # : [id number] : 1970 Provider: Dr. Stefano Colon MD Age/Sex: 55/F Location: [facility] Status: Signed Intake Vital Signs 03/15/25 17:06 [...] carbonate)-vitamin D3 15 mcg (600 unit) tablet [facility] Medical History (Updated 05/02/25 @ 09:59 [...] apartment current occupational status: employed current occupation: [employer] Smoking Status: Current every day smoker [...] this [facility] Juvencio Colon MD Pager: [facility] [address] [place] [address], [address] [place] [address] Office: Coding Level of Care Code Off vis,new,level 4 Diagnoses Cholelithiasis K80.20 Thickening of wall of gallbladder K82.8 Clinical Quality Measures Smoking Screening Smoking Status: Current every day smoker Tobacco use cessation counseling not done: No 05/02/25 1022 <Electronically signed by Juvencio valverde MD> Date _ Juvencio Colon MD Cosigner Signature: Date (if applicable) CC: Dr. Fina Iraheta MD ~ [facility] [employer] Work Phone: [facility] for referral (narrative)* Diagnostic Procedure Only (Routine) - Pending Review Specialty Diagnoses / Procedures Referred By Contac t Referred To Contact [facility] Diagnoses Encounter for screening mammogram for breast cancer Procedures ANALIA SCREENING SCREENING MAMMOGRAPHY BI 2-VIEW BREAST INC CAD Prudencio Pedro MD [address] [place] [address] [facility] [address] [place] [phone] Referral ID Status Reason Start Date Expiration Date Visits Requested Visits Authorized [id number] Pending Review Auto-Generat ed Referral 01/20/2022 02/19/2023 1 1 [facility] for referral (narrative)* Outpatient Procedure (Routine) - Pending Review Specialty Diagnoses / Procedures Referred By Contac t Referred To [facility] Diagnoses Persistent cough Tobacco use Procedures LUNG VOLUMES Prudencio Pedro MD [address] [place] [address] [facility] [place] [address] [place] [address] Referral ID Status Reason Start Date Expiration Date Visits Requested Visits Authorized [id number] Pending Review Auto-Generat ed Referral 02/18/2022 03/20/2023 1 1 * Outpatient Procedure (Routine) - Authorized Specialty Diagnoses / Procedures Referred By Contac t Referred To [facility] Diagnoses Persistent cough Tobacco use Procedures SPIROMETRY - BASELINE AND POST DILATOR BRNCDILAT RSPSE SPMTRY PRE&POST-BRNCDILAT ADMN Prudencio Pedro MD [address] [place] [address] [facility] [place] [address] [place] [address] Referral ID Status Reason Start Date Expiration Date Visits Requested Visits Authorized [id number] Authorized Auto-Generat ed Referral 02/18/2022 03/20/2023 1 1 [facility] for referral (narrative)* Diagnostic Procedure Only (Routine) - Pending Review Specialty Diagnoses / Procedures [facility] Diagnoses Fatigue, unspecified type Daytime somnolence Procedures HOME SLEEP APNEA TEST (HSAT) SLEEP STD AIRFLOW HRT RATE&O2 SAT EFFORT Diamond Carney APRN.CNP [address] [place] [address] [place] [id number] Referral ID Status Reason Start Date Expiration Date Visits Requested Visits Authorized [id number] Pending Review Auto-Generat ed Referral 08/02/2022 08/02/2023 1 1 [facility] for referral (narrative)* Outpatient Procedure (Routine) - Pending Review Specialty Diagnoses / Procedures [facility] Diagnoses Chronic obstructive pulmonary disease, unspecified COPD type (HCC) Procedures SPIROMETRY WITH DILATOR IF OBSTRUCTED BRNCDILAT RSPSE SPMTRY PRE&POST-BRNCDILAT David Saleh MD [address] [place] [address] [facility] [place] [phone] Referral ID Status Reason Start Date Expiration Date Visits Requested Visits Authorized [id number] Pending Review Auto-Generat ed Referral 08/27/2022 09/25/2023 1 1 [facility] for referral (narrative)* Diagnostic Procedure Only (Routine) - Pending Review Specialty Diagnoses / Procedures [facility] Referred To Contact [facility] Diagnoses Abnormal mammogram Procedures US BREAST LTD RIGHT US BREAST UNI REAL TIME WITH IMAGE LIMITED Prudencio Pedro MD [address] [place] [address] [facility] [address] [place] [address] Referral ID Status Reason Start Date Expiration Date Visits Requested Visits Authorized [id number] Pending Review Auto-Generat ed Referral 04/20/2023 11/18/2023 1 1 * Diagnostic Procedure Only (Routine) - Authorized Specialty Diagnoses / Procedures Referred By Xi t Referred To Contact [facility] Diagnoses Abnormal mammogram Procedures ANALIA DIAGNOSTIC RIGHT DIAGNOSTIC MAMMOGRAPHY COMPUTER-AIDED DETCJ UNI Prudencio Pedro MD [address] [place] [address] [facility] [address] [place] [address] Referral ID Status Reason Start Date Expiration Date Visits Requested Visits Authorized [id number] Authorized Auto-Generat ed Referral 04/20/2023 11/18/2023 1 1 [facility] for referral (narrative)* Outpatient Procedure (Routine) - Authorized Specialty Diagnoses / Procedures [facility] Diagnoses Centrilobular emphysema (HCC) Procedures SPIROMETRY WITH DILATOR IF OBSTRUCTED BRNCDILAT RSPSE SPMTRY PRE&POST-BRNCDILAT David Saleh MD [address] [place] [address] [facility] [place] [address] [place] [address] Referral ID Status Reason Start Date Expiration Date Visits Requested Visits Authorized [id number] Authorized Auto-Generat ed Referral 03/14/2023 04/12/2024 1 1 [facility] for referral (narrative)* Diagnostic Procedure Only (Routine) - Authorized Specialty Diagnoses / Procedures [facility] Referred To Contact [facility] Diagnoses Abnormal mammogram Procedures ANALIA DIAGNOSTIC RIGHT DIAGNOSTIC MAMMOGRAPHY COMPUTER-AIDED DETCJ UNI Prudencio Pedro MD [address] [place] [address] [facility] [address] [place] [address] Referral ID Status Reason Start Date Expiration Date Visits Requested Visits Authorized [id number] Authorized Auto-Generat ed Referral 05/18/2023 06/16/2024 1 1 * Diagnostic Procedure Only (Routine) - Pending Review Specialty Diagnoses / Procedures Referred By Contac t Referred To Contact [facility] Diagnoses Abnormal mammogram Procedures US BREAST LTD RIGHT US BREAST UNI REAL TIME WITH IMAGE LIMITED Prudencio Pedro MD [address] [place] [address] [facility] [address] [place] [phone] Referral ID Status Reason Start Date Expiration Date Visits Requested Visits Authorized [id number] Pending Review Auto-Generat ed Referral 05/18/2023 06/16/2024 1 1 [facility] for referral (narrative)* Diagnostic Procedure Only (Routine) - Closed Specialty Diagnoses / Procedures Referred By Contac t Referred To Contact XR IMAGING Diagnoses Pain in left wrist Procedures XR WRIST GENERAL 3V PA/LAT/OBL LEFT RADEX WRIST COMPLETE MINIMUM 3 VIEWS Bruce Wilson MD [address] [place] [address] Xr Imaging [id number] Referral ID Status Reason Start Date Expiration Date V isits Requested Visits Authorized [id number] Closed Auto-Generate d Referral 05/04/2023 06/02/2024 1 1 [facility] for referral (narrative)* Diagnostic Procedure Only (Routine) - Closed Specialty Diagnoses / Procedures Referred By Contac t Referred To Contact [facility] Diagnoses Abnormal mammogram Procedures US BREAST LTD RT US BREAST UNI REAL TIME WITH IMAGE LIMITED Prudencio Pedro MD [address] [place] [address] [facility] [address] [place] [address] Referral ID Status Reason Start Date Expiration Date V isits Requested Visits Authorized [id number] Closed Auto-Generate d Referral 09/15/2022 10/15/2023 1 1 [facility] for referral (narrative)* Diagnostic Procedure Only (Routine) - Closed Specialty Diagnoses / Procedures Referred By Xi manning Referred To Contact [facility] Diagnoses Encounter for screening mammogram for breast cancer Procedures ANALIA SCREENING SCREENING MAMMOGRAPHY BI 2-VIEW BREAST INC CAD Prudencio Pedro MD [address] [place] [address] [place] [address] Referral ID Status Reason Start Date Expiration Date V isits Requested Visits Authorized [id number] Closed Auto-Generate d Referral 01/20/2022 02/19/2023 1 1 [facility] for referral (narrative)* Diagnostic Procedure Only (Routine) - Closed Specialty Diagnoses / Procedures Referred By Xi manning Referred To Contact [facility] Diagnoses Abnormal mammogram Procedures US BREAST LTD RIGHT US BREAST UNI REAL TIME WITH IMAGE LIMITED Prudencio Pedro MD [address] [place] [address] [facility] [address] [address] Referral ID Status Reason Start Date Expiration Date V isits Requested Visits Authorized [id number] Closed Auto-Generate d Referral 04/20/2023 11/18/2023 1 1 T [facility] for referral (narrative)* Outpatient Procedure (Routine) - Authorized Specialty Diagnoses / Procedures Referred By Xi manning Referred To Contact [facility] Diagnoses Screening for colon cancer Procedures COLONOSCOPY SCREENING COLONOSCOPY FLX DX W/COLLJ SPEC WHEN PFRMD Diamond Bright APRN.FERTILIZING MACHINE OPERATOR [address] [place] [address] [facility] [place] [address] [place] [address] Referral ID Status Reason Start Date Expiration Date Visits Requested Visits Authorized [id number] Authorized Auto-Generat ed Referral 09/07/2023 09/07/2024 1 1 [facility] for referral (narrative)* Diagnostic Procedure Only (Routine) - Pending Review Specialty Diagnoses / Procedures Referred By Xi manning Referred To Contact [facility] Diagnoses Encounter for screening mammogram for breast cancer Procedures ANALIA SCREENING SCREENING MAMMOGRAPHY BI 2-VIEW BREAST INC CAD Prudencio Pedro MD [address] [place] [address] [facility] [address] [place] [address] Referral ID Status Reason Start Date Expiration Date Visits Requested Visits Authorized [id number] Pending Review Auto-Generat ed Referral 10/19/2023 11/17/2024 1 1 T [facility] for referral (narrative)* Diagnostic Procedure Only (Routine) - Pending Review Specialty Diagnoses / Procedures Referred By Xi manning Referred To Contact [facility] Diagnoses Abnormal mammogram Procedures ANALIA DIAGNOSTIC BILATERAL DIAGNOSTIC MAMMOGRAPHY COMPUTER-AIDED DETCJ BI Diamond Bright APRN.FERTILIZING MACHINE OPERATOR [address] [place] [address] [facility] [address] [place] [address] Referral ID Status Reason Start Date Expiration Date Visits Requested Visits Authorized [id number] Pending Review Auto-Generat ed Referral 11/01/2023 11/30/2024 1 1 [facility] for referral (narrative)* Outpatient Procedure (Routine) - New Request Specialty Diagnoses / Procedures Referred By Contac t Referred To Contact [facility] Diagnoses Pre-op evaluation Procedures ECG COMPLETE ECG ROUTINE ECG W/LEAST 12 LDS W/I&R Prudencio Pedro MD [address] [place] [address] [facility] [place] [address] [facility] [place] [address] Referral ID Status Reason Start Date Expiration Date Visits Requested Visits Authorized [id number] New Request Auto-Generat ed Referral 03/21/2024 03/21/2025 1 1 [facility] for referral (narrative)* Diagnostic Procedure Only (Urgent) - Closed Specialty Diagnoses / Procedures Referred By Contac t Referred To Contact XR IMAGING Diagnoses Acute pain of left shoulder Procedures XR SHOULDER GENERAL 3V OR MORE AP/TRUE AP/OTHER LEFT RADEX SHOULDER COMPLETE MINIMUM 2 VIEWS [facility] [address] [place] [address] Xr Imaging [id number] Referral ID Status Reason Start Date Expiration Date V isits Requested Visits Authorized [id number] Closed Auto-Generate d Referral 06/13/2023 07/12/2024 1 1 [facility] for referral (narrative)* Diagnostic Procedure Only (Routine) - Closed Specialty Diagnoses / Procedures Referred By Contac t Referred To Contact XR IMAGING Diagnoses Fall, initial encounter Injury of left wrist, initial encounter Procedures XR WRIST GENERAL 3V PA/LAT/OBL LEFT RADEX WRIST COMPLETE MINIMUM 3 VIEWS Aliyah Araujo, DARIUS.FERTILIZING MACHINE OPERATOR [address] [place] [address] [place] [address] Referral ID Status Reason Start Date Expiration Date V isits Requested Visits Authorized [id number] Closed Auto-Generate d Referral 04/18/2023 05/17/2024 1 1 * Diagnostic Procedure Only (Routine) - Closed Specialty Diagnoses / Procedures Referred By Contac t Referred To Contact XR IMAGING Diagnoses Fall, initial encounter Rib pain on left side Procedures XR RIBS 2V AP/OBL LEFT RADEX RIBS UNILATERAL 2 VIEWS Aliyah Araujo APRN.FERTILIZING MACHINE OPERATOR [address] [place] [address] Xr Imaging [id number] Referral ID Status Reason Start Date Expiration Date V isits Requested Visits Authorized [id number] Closed Auto-Generate d Referral 04/18/2023 05/17/2024 1 1 [facility] for referral (narrative)* Outpatient Procedure (Routine) - New Request Specialty Diagnoses / Procedures Referred By Contac t Referred To Contact [facility] Diagnoses Pulmonary emphysema, unspecified emphysema type (HCC) Procedures LUNG VOLUMES Ayad Metcalf APRN.ANALILIA [address] [employer] [facility] [place] [id number] [facility] [place] [address] [place] [address] Referral ID Status Reason Start Date Expiration Date Visits Requested Visits Authorized [id number] New Request Auto-Generat ed Referral 08/22/2024 09/21/2025 1 1 * Outpatient Procedure (Routine) - New Request Specialty Diagnoses / Procedures Referred By Contac t Referred To Contact [facility] Diagnoses Pulmonary emphysema, unspecified emphysema type (HCC) Procedures SPIROMETRY WITH DILATOR IF OBSTRUCTED BRNCDILAT RSPSE SPMTRY PRE&POST-BRNCDILAT ADMN Ayad Metcalf APRN.FERTILIZING MACHINE OPERATOR [address] [employer] [address] [place] [id number] [facility] [place] [address] [place] [id number] Referral ID Status Reason Start Date Expiration Date Visits Requested Visits Authorized [id number] New Request Auto-Generat ed Referral 08/22/2024 09/21/2025 1 1 [facility] for referral (narrative)No reason for referral information availableWWayne [facility] Work Phone: Reason for visit Narrative* Diagnostic Procedure Only (Routine) - Closed Specialty Diagnoses / Procedures Referred By Contac t Referred To Contact XR IMAGING Diagnoses Pain in left wrist Procedures XR WRIST GENERAL 3V PA/LAT/OBL LEFT RADEX WRIST COMPLETE MINIMUM 3 VIEWS Bruce Wilson MD [address] [place] [address] [place] [address] Referral ID Status Reason Start Date Expiration Date V isits Requested Visits Authorized [id number] Closed Auto-Generate d Referral 05/04/2023 06/02/2024 1 1 [facility] for visit Narrative* Diagnostic Procedure Only (Routine) - Closed Specialty Diagnoses / Procedures Referred By Contac t Referred To Contact BR IMAGING Diagnoses Encounter for screening mammogram for breast cancer Procedures ANALIA SCREENING SCREENING MAMMOGRAPHY BI 2-VIEW BREAST INC CAD Prudencio Pedro MD [address] [place], [place] [id number] [facility] [address] [place] [address] Referral ID Status Reason Start Date Expiration Date V isits Requested Visits Authorized [id number] Closed Auto-Generate d Referral 01/20/2022 02/19/2023 1 1 [facility] for visit Narrative* Diagnostic Procedure Only (Routine) - Closed Specialty Diagnoses / Procedures Referred By Contac t Referred To Contact BR IMAGING Diagnoses Abnormal mammogram Procedures ANALIA DIAGNOSTIC RIGHT DIAGNOSTIC MAMMOGRAPHY COMPUTER-AIDED DETCJ Prudencio Campoverde MD [address] [place] [address] [facility] Imaging [address] [place] [address] Referral ID Status Reason Start Date Expiration Date V isits Requested Visits Authorized [id number] Closed Auto-Generate d Referral 04/20/2023 11/18/2023 1 1 [facility] for visit Narrative* Diagnostic Procedure Only (Routine) - Closed Specialty Diagnoses / Procedures Referred By Contac t Referred To Contact BR IMAGING Diagnoses Abnormal mammogram Procedures ANALIA DIAGNOSTIC RT DIAGNOSTIC MAMMOGRAPHY COMPUTER-AIDED DETCJ Prudencio Campoverde MD [address] [place] [address] [facility] [address] [place] [address] Referral ID Status Reason Start Date Expiration Date V isits Requested Visits Authorized [id number] Closed Auto-Generate d Referral 09/15/2022 10/15/2023 1 1 [facility] for visit Narrative* Diagnostic Procedure Only (Urgent) - Closed Specialty Diagnoses / Procedures Referred By Contac t Referred To Contact XR IMAGING Diagnoses Acute pain of left shoulder Procedures XR SHOULDER GENERAL 3V OR MORE AP/TRUE AP/OTHER LEFT RADEX SHOULDER COMPLETE MINIMUM 2 VIEWS Express [facility] [address] [place] [address] [place] [address] Referral ID Status Reason Start Date Expiration Date V isits Requested Visits Authorized [id number] Closed Auto-Generate d Referral 06/13/2023 07/12/2024 1 1 [facility] for visit Narrative* Diagnostic Procedure Only (Routine) - Closed Specialty Diagnoses / Procedures Referred By Contac t Referred To Contact XR IMAGING Diagnoses Fall, initial encounter Injury of left wrist, initial encounter Procedures XR WRIST GENERAL 3V PA/LAT/OBL LEFT RADEX WRIST COMPLETE MINIMUM 3 VIEWS Aliyah Araujo APRN.FERTILIZING MACHINE OPERATOR [address] [place] [address] [place] [address] Referral ID Status Reason Start Date Expiration Date V isits Requested Visits Authorized [id number] Closed Auto-Generate d Referral 04/18/2023 05/17/2024 1 1 [facility] Reason for Referral Specialty Diagnoses / Procedures Referred By Contac t Referred To Contact Diagnoses Acute cough PodlogarDiamond BICYCLE COURIER.FERTILIZING MACHINE OPERATOR [address] [place] [address] Referral ID Status Reason Start Date Expiration Date Visits Re quested Visits Authorized [id number] Closed 1 1 Specialty Diagnoses / Procedures Referred By Contac t Referred To Contact Orthopedics Diagnoses Acute pain of left shoulder Procedures CONSULT TO ORTHOPAEDICS OFFICE/OUTPATIENT NEW HIGH MDM 60-74 MINUTES [facility] [address] [place] [address] Referral ID Status Reason Start Date Expiration Date Visits Requested Visits Authorized [id number] Authorized PCP Requested Referral 06/12/2024 1 1 Specialty Diagnoses / Procedures Referred By Xi t Referred To Contact XR IMAGING Diagnoses Acute pain of left shoulder Procedures XR SHOULDER GENERAL 3V OR MORE AP/TRUE AP/OTHER LEFT RADEX SHOULDER COMPLETE MINIMUM 2 VIEWS [facility] [address] [place] [address] [place] [address] Referral ID Status Reason Start Date Expiration Date V isits Requested Visits Authorized [id number] Closed Auto-Generate d Referral 06/13/2023 07/12/2024 1 1 Advance Directives No Advanced Directives Records Found Advance Directive Response Recorded Date/ Time Living Will No May 15 11:48am Power of [place] No May 15, 2019 11:48am Advance Directive Response Recorded Date/ Time Living Will No March 18 10:15am Power of [place] No March 18, 2022 10:15am Advance Directive Response Recorded Date/ Time Living Will No March 18 9:15am Power of [place] No March 18, 2022 9:15am Advance Directive Response Recorded Date/ Time Living Will No March 03 11:10am Power of [place] No March 03 11:10am Living Will No August 01 5:09pm Power of [place] No August 01, 2024 5:09pm Advance Directive Response Recorded Date/ Time Living Will No March 03 11:10am Power of [place] No March 03 11:10am Living Will No September 25, 2024 8:37pm Power of [place] No September 25 8:37pm Living Will No August 01 5:09pm Power of [place] No August 01, 2024 5:09pm Advance Directive Response Recorded Date/ Time Living Will No March 03 11:10am Do you have a Healthcare Power of [place]? No March 03, 2024 11:10am Living Will No September 25, 2024 8:37pm Do you have a Healthcare Power of [place]? No September 25, 2024 8:37pm Living Will No August 01 5:09pm Do you have a Healthcare Power of [place]? No August 01, 2024 5:09pm Advance Directive Response Recorded Date/ Time Living Will No March 03 11:10am Do you have a Healthcare Power of [place]? No March 03, 2024 11:10am Living Will No September 25, 2024 8:37pm Do you have a Healthcare Power of [place]? No September 25, 2024 8:37pm Do you have a Healthcare Power of [place]? No November 26, 2024 7:02am Living Will No August 01 5:09pm Do you have a Healthcare Power of [place]? No August 01, 2024 5:09pm Advance Directive Response Recorded Date/ Time Do you have a Healthcare Power of [place]? No November 26, 2024 7:02am Do you have a Healthcare Power of [place]? No February 07, 2025 11:25am Advance Directive Response Recorded Date/ Time Do you have a Healthcare Power of [place]? No November 26, 2024 7:02am Do you have a Healthcare Power of [place]? No February 07, 2025 11:25am Do you have a Healthcare Power of [place]? No March 08, 2025 9:18am Advance Directive Response Recorded Date/ Time Do you have a Healthcare Power of [place]? No November 26, 2024 7:02am Do you have a Healthcare Power of [place]? No February 07, 2025 11:25am Do you have a Healthcare Power of [place]? No March 08, 2025 9:18am Do you have a Healthcare Power of [place]? No March 15, 2025 6:29pm Advance Directive Response Recorded Date/ Time Do you have a Healthcare Power of [place]? No February 07, 2025 11:25am Do you have a Healthcare Power of [place]? No March 08, 2025 9:18am Do you have a Healthcare Power of [place]? No March 15, 2025 6:29pm Chief Complaint [...] Date headache August 01, 2024 3 :35pm [employer]. 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 EST CARE - PPW SENT August 13 9:26am Lung Cancer Screening September 11 11:29am SCREENING September 11, 2024 12:21pm EARS AND HEAD INJURY ISSUES August 9:30am E-ORDER September 14, 2024 11:23am SCREENING September 25, 2024 9:1 7am Chief Complaint Admit Date headache August 01, 2024 3 :35pm [employer]. EST CARE - PPW SENT August 13 9:26am Lung Cancer Screening September 11 11:29am SCREENING September 11, 2024 12:21pm EARS AND HEAD INJURY ISSUES August 9:30am E-ORDER September 14, 2024 11:23am SCREENING September 25, 2024 9:1 7am HEAD INJURY September 25, 2024 4:4 0pm Chief Complaint Admit Date headache August 01, 2024 3 :35pm [employer] SU[employer]. 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, 2025 12:31pm 6 M FU February 15, 2025 10: 07am abd pain, mucus March 08, 2025 8: 40am Hospital Follow Up ([facility]) March 11 8:36am NAUSEA,ITCHY FEET March 15, 2025 3: 38pm Chief Complaint Admit Date sob November 26, 2024 7:02a m ACUTE [facility] FU-LEAVE 60 MIN November 28, 2024 2:47pm head injury February 07, 2025 11:0 9am 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, 2025 12:31pm 6 M FU February 15, 2025 10: 07am abd pain, mucus March 08, 2025 8: 40am Hospital Follow Up ([facility]) March 11 8:36am NAUSEA,ITCHY FEET March 15, 2025 3: 38pm ITCHY FEET, NAUSEA March 15, 2025 5: 05pm Chief Complaint Admit Date head injury February 07, 2025 11:0 9am 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, 2025 12:31pm 6 M FU February 15, 2025 10: 07am abd pain, mucus March 08, 2025 8: 40am Hospital Follow Up ([facility]) March 11 8:36am NAUSEA,ITCHY FEET March [...] or prosecute any alcohol or drug abuse patient.[facility] the event this information is protected by the Federal Confidentiality of Alcohol and Drug Abuse Patient Records regulations: The Federal rules restrict any use of the information to criminally investigate or prosecute any alcohol or drug abuse patient.[facility] Center[facility] the event this information is protected by the Federal Confidentiality of Alcohol and Drug Abuse Patient Records regulations: The Federal rules restrict any use of the information to criminally investigate or prosecute any alcohol or drug abuse patient.[facility] CenterIn the event this information is protected by the Federal Confidentiality of Alcohol and Drug Abuse Patient Records regulations: The Federal rules restrict any use of the information to criminally investigate or prosecute any alcohol or drug abuse patient.[facility] CenterIn the event this information is protected by the Federal Confidentiality of Alcohol and Drug Abuse Patient Records regulations: The Federal rules restrict any use of the information to criminally investigate or prosecute any alcohol or drug abuse patient.[facility] CenterIn the event this information is protected by the Federal Confidentiality of Alcohol and Drug Abuse Patient Records regulations: The Federal rules restrict any use of the information to criminally investigate or prosecute any alcohol or drug abuse patient.[facility] CenterIn the event this information is protected by the Federal Confidentiality of Alcohol and Drug Abuse Patient Records regulations: The Federal rules restrict any use of the information to criminally investigate or prosecute any alcohol or drug abuse patient.[facility] CenterIn the event this information is protected by the Federal Confidentiality of Alcohol and Drug Abuse Patient Records regulations: The Federal rules restrict any use of the information to criminally investigate or prosecute any alcohol or drug abuse patient.[facility] CenterIn the event this information is protected by the Federal Confidentiality of Alcohol and Drug Abuse Patient Records regulations: The Federal rules restrict any use of the information to criminally investigate or prosecute any alcohol or drug abuse patient.[facility] CenterIn the event this information is protected by the Federal Confidentiality of Alcohol and Drug Abuse Patient Records regulations: The Federal rules restrict any use of the information to criminally investigate or prosecute any alcohol or drug abuse patient.[facility] CenterIn the event this information is protected by the Federal Confidentiality of Alcohol and Drug Abuse Patient Records regulations: The Federal rules restrict any use of the information to criminally investigate or prosecute any alcohol or drug abuse patient.[facility] CenterIn the event this information is protected by the Federal Confidentiality of Alcohol and Drug Abuse Patient Records regulations: The Federal rules restrict any use of the information to criminally investigate or prosecute any alcohol or drug abuse patient.[facility] CenterIn the event this information is protected by the Federal Confidentiality of Alcohol and Drug Abuse Patient Records regulations: The Federal rules restrict any use of the information to criminally investigate or prosecute any alcohol or drug abuse patient.[facility] CenterIn the event this information is protected by the Federal Confidentiality of Alcohol and Drug Abuse Patient Records regulations: The Federal rules restrict any use of the information to criminally investigate or prosecute any alcohol or drug abuse patient.[facility] CenterIn the event this information is protected by the Federal Confidentiality of Alcohol and Drug Abuse Patient Records regulations: The Federal rules restrict any use of the information to criminally investigate or prosecute any alcohol or drug abuse patient.[facility] CenterIn the event this information is protected by the Federal Confidentiality of Alcohol and Drug Abuse Patient Records regulations: The Federal rules restrict any use of the information to criminally investigate or prosecute any alcohol or drug abuse patient.[facility] CenterIn the event this information is protected by the Federal Confidentiality of Alcohol and Drug Abuse Patient Records regulations: The Federal rules restrict any use of the information to criminally investigate or prosecute any alcohol or drug abuse patient.[facility] CenterIn the event this information is protected by the Federal Confidentiality of Alcohol and Drug Abuse Patient Records regulations: The Federal rules restrict any use of the information to criminally investigate or prosecute any alcohol or drug abuse patient.[facility] CenterIn the event this information is protected by the Federal Confidentiality of Alcohol and Drug Abuse Patient Records regulations: The Federal rules restrict any use of the information to criminally investigate or prosecute any alcohol or drug abuse patient.[facility] CenterIn the event this information is protected by the Federal Confidentiality of Alcohol and Drug Abuse Patient Records regulations: The Federal rules restrict any use of the information to criminally investigate or prosecute any alcohol or drug abuse patient.[facility] CenterIn the event this information is protected by the Federal Confidentiality of Alcohol and Drug Abuse Patient Records regulations: The Federal rules restrict any use of the information to criminally investigate or prosecute any alcohol or drug abuse patient.[facility] CenterIn the event this information is protected by the Federal Confidentiality of Alcohol and Drug Abuse Patient Records regulations: The Federal rules restrict any use of the information to criminally investigate or prosecute any alcohol or drug abuse patient.[facility] CenterIn the event this information is protected by the Federal Confidentiality of Alcohol and Drug Abuse Patient Records regulations: The Federal rules restrict any use of the information to criminally investigate or prosecute any alcohol or drug abuse patient.[facility] CenterIn the event this information is protected by the Federal Confidentiality of Alcohol and Drug Abuse Patient Records regulations: The Federal rules restrict any use of the information to criminally investigate or prosecute any alcohol or drug abuse patient.[facility] CenterIn the event this information is protected by the Federal Confidentiality of Alcohol and Drug Abuse Patient Records regulations: The Federal rules restrict any use of the information to criminally investigate or prosecute any alcohol or drug abuse patient.[facility] CenterIn the event this information is protected by the Federal Confidentiality of Alcohol and Drug Abuse Patient Records regulations: The Federal rules restrict any use of the information to criminally investigate or prosecute any alcohol or drug abuse patient.[facility] CenterIn the event this information is protected by the Federal Confidentiality of Alcohol and Drug Abuse Patient Records regulations: The Federal rules restrict any use of the information to criminally investigate or prosecute any alcohol or drug abuse patient.[facility] CenterIn the event this information is protected by the Federal Confidentiality of Alcohol and Drug Abuse Patient Records regulations: The Federal rules restrict any use of the information to criminally investigate or prosecute any alcohol or drug abuse patient.[facility] CenterIn the event this information is protected by the Federal Confidentiality of Alcohol and Drug Abuse Patient Records regulations: The Federal rules restrict any use of the information to criminally investigate or prosecute any alcohol or drug abuse patient.[facility] CenterIn the event this information is protected by the Federal Confidentiality of Alcohol and Drug Abuse Patient Records regulations: The Federal rules restrict any use of the information to criminally investigate or prosecute any alcohol or drug abuse patient.[facility] CenterIn the event this information is protected by the Federal Confidentiality of Alcohol and Drug Abuse Patient Records regulations: The Federal rules restrict any use of the information to criminally investigate or prosecute any alcohol or drug abuse patient.[facility] CenterIn the event this information is protected by the Federal Confidentiality of Alcohol and Drug Abuse Patient Records regulations: The Federal rules restrict any use of the information to criminally investigate or prosecute any alcohol or drug abuse patient.[facility] CenterIn the event this information is protected by the Federal Confidentiality of Alcohol and Drug Abuse Patient Records regulations: The Federal rules restrict any use of the information to criminally investigate or prosecute any alcohol or drug abuse patient.[facility] CenterIn the event this information is protected by the Federal Confidentiality of Alcohol and Drug Abuse Patient Records regulations: The Federal rules restrict any use of the information to criminally investigate or prosecute any alcohol or drug abuse patient.[facility] CenterIn the event this information is protected by the Federal Confidentiality of Alcohol and Drug Abuse Patient Records regulations: The Federal rules restrict any use of the information to criminally investigate or prosecute any alcohol or drug abuse patient.[facility] CenterIn the event this information is protected by the Federal Confidentiality of Alcohol and Drug Abuse Patient Records regulations: The Federal rules restrict any use of the information to criminally investigate or prosecute any alcohol or drug abuse patient.[facility] CenterIn the event this information is protected by the Federal Confidentiality of Alcohol and Drug Abuse Patient Records regulations: The Federal rules restrict any use of the information to criminally investigate or prosecute any alcohol or drug abuse patient.[facility] CenterIn the event this information is protected by the Federal Confidentiality of Alcohol and Drug Abuse Patient Records regulations: The Federal rules restrict any use of the information to criminally investigate or prosecute any alcohol or drug abuse patient.[facility] CenterIn the event this information is protected by the Federal Confidentiality of Alcohol and Drug Abuse Patient Records regulations: The Federal rules restrict any use of the information to criminally investigate or prosecute any alcohol or drug abuse patient.[facility] CenterIn the event this information is protected by the Federal Confidentiality of Alcohol and Drug Abuse Patient Records regulations: The Federal rules restrict any use of the information to criminally investigate or prosecute any alcohol or drug abuse patient.[facility] CenterIn the event this information is protected by the Federal Confidentiality of Alcohol and Drug Abuse Patient Records regulations: The Federal rules restrict any use of the information to criminally investigate or prosecute any alcohol or drug abuse patient.[facility] CenterIn the event this information is protected by the Federal Confidentiality of Alcohol and Drug Abuse Patient Records regulations: The Federal rules restrict any use of the information to criminally investigate or prosecute any alcohol or drug abuse patient.[facility] CenterIn the event this information is protected by the Federal Confidentiality of Alcohol and Drug Abuse Patient Records regulations: The Federal rules restrict any use of the information to criminally investigate or prosecute any alcohol or drug abuse patient.[facility] CenterIn the event this information is protected by the Federal Confidentiality of Alcohol and Drug Abuse Patient Records regulations: The Federal rules restrict any use of the information to criminally investigate or prosecute any alcohol or drug abuse patient.[facility] CenterIn the event this information is protected by the Federal Confidentiality of Alcohol and Drug Abuse Patient Records regulations: The Federal rules restrict any use of the information to criminally investigate or prosecute any alcohol or drug abuse patient.[facility] CenterIn the event this information is protected by the Federal Confidentiality of Alcohol and Drug Abuse Patient Records regulations: The Federal rules restrict any use of the information to criminally investigate or prosecute any alcohol or drug abuse patient.[facility] CenterIn the event this information is protected by the Federal Confidentiality of Alcohol and Drug Abuse Patient Records regulations: The Federal rules restrict any use of the information to criminally investigate or prosecute any alcohol or drug abuse patient.[facility] CenterIn the event this information is protected by the Federal Confidentiality of Alcohol and Drug Abuse Patient Records regulations: The Federal rules restrict any use of the information to criminally investigate or prosecute any alcohol or drug abuse patient.[facility] CenterIn the event this information is protected by the Federal Confidentiality of Alcohol and Drug Abuse Patient Records regulations: The Federal rules restrict any use of the information to criminally investigate or prosecute any alcohol or drug abuse patient.[facility] CenterIn the event this information is protected by the Federal Confidentiality of Alcohol and Drug Abuse Patient Records regulations: The Federal rules restrict any use of the information to criminally investigate or prosecute any alcohol or drug abuse patient.[facility] CenterIn the event this information is protected by the Federal Confidentiality of Alcohol and Drug Abuse Patient Records regulations: The Federal rules restrict any use of the information to criminally investigate or prosecute any alcohol or drug abuse patient.[facility] CenterIn the event this information is protected by the Federal Confidentiality of Alcohol and Drug Abuse Patient Records regulations: The Federal rules restrict any use of the information to criminally investigate or prosecute any alcohol or drug abuse patient.[facility] CenterIn the event this information is protected by the Federal Confidentiality of Alcohol and Drug Abuse Patient Records regulations: The Federal rules restrict any use of the information to criminally investigate or prosecute any alcohol or drug abuse patient.[facility] CenterIn the event this information is protected by the Federal Confidentiality of Alcohol and Drug Abuse Patient Records regulations: The Federal rules restrict any use of the information to criminally investigate or prosecute any alcohol or drug abuse patient.[facility] CenterIn the event this information is protected by the Federal Confidentiality of Alcohol and Drug Abuse Patient Records regulations: The Federal rules restrict any use of the information to criminally investigate or prosecute any alcohol or drug abuse patient.[facility] CenterIn the event this information is protected by the Federal Confidentiality of Alcohol and Drug Abuse Patient Records regulations: The Federal rules restrict any use of the information to criminally investigate or prosecute any alcohol or drug abuse patient.[facility] CenterIn the event this information is protected by the Federal Confidentiality of Alcohol and Drug Abuse Patient Records regulations: The Federal rules restrict any use of the information to criminally investigate or prosecute any alcohol or drug abuse patient.[facility] CenterIn the event this information is protected by the Federal Confidentiality of Alcohol and Drug Abuse Patient Records regulations: The Federal rules restrict any use of the information to criminally investigate or prosecute any alcohol or drug abuse patient.[facility] CenterIn the event this information is protected by the Federal Confidentiality of Alcohol and Drug Abuse Patient Records regulations: The Federal rules restrict any use of the information to criminally investigate or prosecute any alcohol or drug abuse patient.[facility] CenterIn the event this information is protected by the Federal Confidentiality of Alcohol and Drug Abuse Patient Records regulations: The Federal rules restrict any use of the information to criminally investigate or prosecute any alcohol or drug abuse patient.[facility] CenterIn the event this information is protected by the Federal Confidentiality of Alcohol and Drug Abuse Patient Records regulations: The Federal rules restrict any use of the information to criminally investigate or prosecute any alcohol or drug abuse patient.[facility] CenterIn the event this information is protected by the Federal Confidentiality of Alcohol and Drug Abuse Patient Records regulations: The Federal rules restrict any use of the information to criminally investigate or prosecute any alcohol or drug abuse patient.[facility] CenterIn the event this information is protected by the Federal Confidentiality of Alcohol and Drug Abuse Patient Records regulations: The Federal rules restrict any use of the information to criminally investigate or prosecute any alcohol or drug abuse patient.[facility] CenterIn the event this information is protected by the Federal Confidentiality of Alcohol and Drug Abuse Patient Records regulations: The Federal rules restrict any use of the information to criminally investigate or prosecute any alcohol or drug abuse patient.[facility] CenterIn the event this information is protected by the Federal Confidentiality of Alcohol and Drug Abuse Patient Records regulations: The Federal rules restrict any use of the information to criminally investigate or prosecute any alcohol or drug abuse patient.[facility] CenterIn the event this information is protected by the Federal Confidentiality of Alcohol and Drug Abuse Patient Records regulations: The Federal rules restrict any use of the information to criminally investigate or prosecute any alcohol or drug abuse patient.[facility] CenterIn the event this information is protected by the Federal Confidentiality of Alcohol and Drug Abuse Patient Records regulations: The Federal rules restrict any use of the information to criminally investigate or prosecute any alcohol or drug abuse patient.[facility] CenterIn the event this information is protected by the Federal Confidentiality of Alcohol and Drug Abuse Patient Records regulations: The Federal rules restrict any use of the information to criminally investigate or prosecute any alcohol or drug abuse patient.[facility] CenterIn the event this information is protected by the Federal Confidentiality of Alcohol and Drug Abuse Patient Records regulations: The Federal rules restrict any use of the information to criminally investigate or prosecute any alcohol or drug abuse patient.[facility] CenterIn the event this information is protected by the Federal Confidentiality of Alcohol and Drug Abuse Patient Records regulations: The Federal rules restrict any use of the information to criminally investigate or prosecute any alcohol or drug abuse patient.[facility] CenterIn the event this information is protected by the Federal Confidentiality of Alcohol and Drug Abuse Patient Records regulations: The Federal rules restrict any use of the information to criminally investigate or prosecute any alcohol or drug abuse patient.[facility] CenterIn the event this information is protected by the Federal Confidentiality of Alcohol and Drug Abuse Patient Records regulations: The Federal rules restrict any use of the information to criminally investigate or prosecute any alcohol or drug abuse patient.[facility] CenterIn the event this information is protected by the Federal Confidentiality of Alcohol and Drug Abuse Patient Records regulations: The Federal rules restrict any use of the information to criminally investigate or prosecute any alcohol or drug abuse patient.[facility]In the event this information is protected by the Federal Confidentiality of Alcohol and Drug Abuse Patient Records regulations: The Federal rules restrict any use of the information to criminally investigate or prosecute any alcohol or drug abuse patient.[facility] CenterIn the event this information is protected by the Federal Confidentiality of Alcohol and Drug Abuse Patient Records regulations: The Federal rules restrict any use of the information to criminally investigate or prosecute any alcohol or drug abuse patient.[facility] CenterIn the event this information is protected by the Federal Confidentiality of Alcohol and Drug Abuse Patient Records regulations: The Federal rules restrict any use of the information to criminally investigate or prosecute any alcohol or drug abuse patient.[facility]In the event this information is protected by the Federal Confidentiality of Alcohol and Drug Abuse Patient Records regulations: The Federal rules restrict any use of the information to criminally investigate or prosecute any alcohol or drug abuse patient.[facility] CenterIn the event this information is protected by the Federal Confidentiality of Alcohol and Drug Abuse Patient Records regulations: The Federal rules restrict any use of the information to criminally investigate or prosecute any alcohol or drug abuse patient.[facility] CenterIn the event this information is protected by the Federal Confidentiality of Alcohol and Drug Abuse Patient Records regulations: The Federal rules restrict any use of the information to criminally investigate or prosecute any alcohol or drug abuse patient.[facility]In the event this information is protected by the Federal Confidentiality of Alcohol and Drug Abuse Patient Records regulations: The Federal rules restrict any use of the information to criminally investigate or prosecute any alcohol or drug abuse patient.[facility]In the event this information is protected by the Federal Confidentiality of Alcohol and Drug Abuse Patient Records regulations: The Federal rules restrict any use of the information to criminally investigate or prosecute any alcohol or drug abuse patient.[facility]In the event this information is protected by the Federal Confidentiality of Alcohol and Drug Abuse Patient Records regulations: The Federal rules restrict any use of the information to criminally investigate or prosecute any alcohol or drug abuse patient.[facility]In the event this information is protected by the Federal Confidentiality of Alcohol and Drug Abuse Patient Records regulations: The Federal rules restrict any use of the information to criminally investigate or prosecute any alcohol or drug abuse patient.[facility] CenterIn the event this information is protected by the Federal Confidentiality of Alcohol and Drug Abuse Patient Records regulations: The Federal rules restrict any use of the information to criminally investigate or prosecute any alcohol or drug abuse patient.[facility]In the event this information is protected by the Federal Confidentiality of Alcohol and Drug Abuse Patient Records regulations: The Federal rules restrict any use of the information to criminally investigate or prosecute any alcohol or drug abuse patient.[facility]In the event this information is protected by the Federal Confidentiality of Alcohol and Drug Abuse Patient Records regulations: The Federal rules restrict any use of the information to criminally investigate or prosecute any alcohol or drug abuse patient.[facility] CenterIn the event this information is protected by the Federal Confidentiality of Alcohol and Drug Abuse Patient Records regulations: The Federal rules restrict any use of the information to criminally investigate or prosecute any alcohol or drug abuse patient.[facility]In the event this information is protected by the Federal Confidentiality of Alcohol and Drug Abuse Patient Records regulations: The Federal rules restrict any use of the information to criminally investigate or prosecute any alcohol or drug abuse patient.[facility]In the event this information is protected by the Federal Confidentiality of Alcohol and Drug Abuse Patient Records regulations: The Federal rules restrict any use of the information to criminally investigate or prosecute any alcohol or drug abuse patient.[facility]In the event this information is protected by the Federal Confidentiality of Alcohol and Drug Abuse Patient Records regulations: The Federal rules restrict any use of the information to criminally investigate or prosecute any alcohol or drug abuse patient.[facility]In the event this information is protected by the Federal Confidentiality of Alcohol and Drug Abuse Patient Records regulations: The Federal rules restrict any use of the information to criminally investigate or prosecute any alcohol or drug abuse patient.[facility]In the event this information is protected by the Federal Confidentiality of Alcohol and Drug Abuse Patient Records regulations: The Federal rules restrict any use of the information to criminally investigate or prosecute any alcohol or drug abuse patient.[facility]In the event this information is protected by the Federal Confidentiality of Alcohol and Drug Abuse Patient Records regulations: The Federal rules restrict any use of the information to criminally investigate or prosecute any alcohol or drug abuse patient.[facility]In the event this information is protected by the Federal Confidentiality of Alcohol and Drug Abuse Patient Records regulations: The Federal rules restrict any use of the information to criminally investigate or prosecute any alcohol or drug abuse patient.[facility]In the event this information is protected by the Federal Confidentiality of Alcohol and Drug Abuse Patient Records regulations: The Federal rules restrict any use of the information to criminally investigate or prosecute any alcohol or drug abuse patient.[facility]In the event this information is protected by the Federal Confidentiality of Alcohol and Drug Abuse Patient Records regulations: The Federal rules restrict any use of the information to criminally investigate or prosecute any alcohol or drug abuse patient.[facility]In the event this information is protected by the Federal Confidentiality of Alcohol and Drug Abuse Patient Records regulations: The Federal rules restrict any use of the information to criminally investigate or prosecute any alcohol or drug abuse patient.[facility]In the event this information is protected by the Federal Confidentiality of Alcohol and Drug Abuse Patient Records regulations: The Federal rules restrict any use of the information to criminally investigate or prosecute any alcohol or drug abuse patient.[facility]In the event this information is protected by the Federal Confidentiality of Alcohol and Drug Abuse Patient Records regulations: The Federal rules restrict any use of the information to criminally investigate or prosecute any alcohol or drug abuse patient.[facility]In the event this information is protected by the Federal Confidentiality of Alcohol and Drug Abuse Patient Records regulations: The Federal rules restrict any use of the information to criminally investigate or prosecute any alcohol or drug abuse patient.[facility]In the event this information is protected by the Federal Confidentiality of Alcohol and Drug Abuse Patient Records regulations: The Federal rules restrict any use of the information to criminally investigate or prosecute any alcohol or drug abuse patient.[facility]In the event this information is protected by the Federal Confidentiality of Alcohol and Drug Abuse Patient Records regulations: The Federal rules restrict any use of the information to criminally investigate or prosecute any alcohol or drug abuse patient.[facility]In the event this information is protected by the Federal Confidentiality of Alcohol and Drug Abuse Patient Records regulations: The Federal rules restrict any use of the information to criminally investigate or prosecute any alcohol or drug abuse patient.[facility]In the event this information is protected by the Federal Confidentiality of Alcohol and Drug Abuse Patient Records regulations: The Federal rules restrict any use of the information to criminally investigate or prosecute any alcohol or drug abuse patient.[facility]In the event this information is protected by the Federal Confidentiality of Alcohol and Drug Abuse Patient Records regulations: The Federal rules restrict any use of the information to criminally investigate or prosecute any alcohol or drug abuse patient.[facility]In the event this information is protected by the Federal Confidentiality of Alcohol and Drug Abuse Patient Records regulations: The Federal rules restrict any use of the information to criminally investigate or prosecute any alcohol or drug abuse patient.[facility]In the event this information is protected by the Federal Confidentiality of Alcohol and Drug Abuse Patient Records regulations: The Federal rules restrict any use of the information to criminally investigate or prosecute any alcohol or drug abuse patient.[facility]In the event this information is protected by the Federal Confidentiality of Alcohol and Drug Abuse Patient Records regulations: The Federal rules restrict any use of the information to criminally investigate or prosecute any alcohol or drug abuse patient.[facility]In the event this information is protected by the Federal Confidentiality of Alcohol and Drug Abuse Patient Records regulations: The Federal rules restrict any use of the information to criminally investigate or prosecute any alcohol or drug abuse patient.[facility]In the event this information is protected by the Federal Confidentiality of Alcohol and Drug Abuse Patient Records regulations: The Federal rules restrict any use of the information to criminally investigate or prosecute any alcohol or drug abuse patient.[facility]In the event this information is protected by the Federal Confidentiality of Alcohol and Drug Abuse Patient Records regulations: The Federal rules restrict any use of the information to criminally investigate or prosecute any alcohol or drug abuse patient.[facility]In the event this information is protected by the Federal Confidentiality of Alcohol and Drug Abuse Patient Records regulations: The Federal rules restrict any use of the information to criminally investigate or prosecute any alcohol or drug abuse patient.[facility]In the event this information is protected by the Federal Confidentiality of Alcohol and Drug Abuse Patient Records regulations: The Federal rules restrict any use of the information to criminally investigate or prosecute any alcohol or drug abuse patient.[facility]In the event this information is protected by the Federal Confidentiality of Alcohol and Drug Abuse Patient Records regulations: The Federal rules restrict any use of the information to criminally investigate or prosecute any alcohol or drug abuse patient.[facility]In the event this information is protected by the Federal Confidentiality of Alcohol and Drug Abuse Patient Records regulations: The Federal rules restrict any use of the information to criminally investigate or prosecute any alcohol or drug abuse patient.[facility]In the event this information is protected by the Federal Confidentiality of Alcohol and Drug Abuse Patient Records regulations: The Federal rules restrict any use of the information to criminally investigate or prosecute any alcohol or drug abuse patient.[facility]In the event this information is protected by the Federal Confidentiality of Alcohol and Drug Abuse Patient Records regulations: The Federal rules restrict any use of the information to criminally investigate or prosecute any alcohol or drug abuse patient.[facility]In the event this information is protected by the Federal Confidentiality of Alcohol and Drug Abuse Patient Records regulations: The Federal rules restrict any use of the information to criminally investigate or prosecute any alcohol or drug abuse patient.[facility]In the event this information is protected by the Federal Confidentiality of Alcohol and Drug Abuse Patient Records regulations: The Federal rules restrict any use of the information to criminally investigate or prosecute any alcohol or drug abuse patient.[facility]In the event this information is protected by the Federal Confidentiality of Alcohol and Drug Abuse Patient Records regulations: The Federal rules restrict any use of the information to criminally investigate or prosecute any alcohol or drug abuse patient.[facility]In the event this information is protected by the Federal Confidentiality of Alcohol and Drug Abuse Patient Records regulations: The Federal rules restrict any use of the information to criminally investigate or prosecute any alcohol or drug abuse patient.[facility] CenterIn the event this information is protected by the Federal Confidentiality of Alcohol and Drug Abuse Patient Records regulations: The Federal rules restrict any use of the information to criminally investigate or prosecute any alcohol or drug abuse patient.[facility] CenterIn the event this information is protected by the Federal Confidentiality of Alcohol and Drug Abuse Patient Records regulations: The Federal rules restrict any use of the information to criminally investigate or prosecute any alcohol or drug abuse patient.[facility] CenterIn the event this information is protected by the Federal Confidentiality of Alcohol and Drug Abuse Patient Records regulations: The Federal rules restrict any use of the information to criminally investigate or prosecute any alcohol or drug abuse patient.[facility] CenterIn the event this information is protected by the Federal Confidentiality of Alcohol and Drug Abuse Patient Records regulations: The Federal rules restrict any use of the information to criminally investigate or prosecute any alcohol or drug abuse patient.[facility] CenterIn the event this information is protected by the Federal Confidentiality of Alcohol and Drug Abuse Patient Records regulations: The Federal rules restrict any use of the information to criminally investigate or prosecute any alcohol or drug abuse patient.[facility] CenterIn the event this information is protected by the Federal Confidentiality of Alcohol and Drug Abuse Patient Records regulations: The Federal rules restrict any use of the information to criminally investigate or prosecute any alcohol or drug abuse patient.[facility] CenterIn the event this information is protected by the Federal Confidentiality of Alcohol and Drug Abuse Patient Records regulations: The Federal rules restrict any use of the information to criminally investigate or prosecute any alcohol or drug abuse patient.[facility] CenterIn the event this information is protected by the Federal Confidentiality of Alcohol and Drug Abuse Patient Records regulations: The Federal rules restrict any use of the information to criminally investigate or prosecute any alcohol or drug abuse patient.[facility] CenterIn the event this information is protected by the Federal Confidentiality of Alcohol and Drug Abuse Patient Records regulations: The Federal rules restrict any use of the information to criminally investigate or prosecute any alcohol or drug abuse patient.[facility] CenterIn the event this information is protected by the Federal Confidentiality of Alcohol and Drug Abuse Patient Records regulations: The Federal rules restrict any use of the information to criminally investigate or prosecute any alcohol or drug abuse patient.[facility] CenterIn the event this information is protected by the Federal Confidentiality of Alcohol and Drug Abuse Patient Records regulations: The Federal rules restrict any use of the information to criminally investigate or prosecute any alcohol or drug abuse patient.[facility] CenterIn the event this information is protected by the Federal Confidentiality of Alcohol and Drug Abuse Patient Records regulations: The Federal rules restrict any use of the information to criminally investigate or prosecute any alcohol or drug abuse patient.[facility] CenterIn the event this information is protected by the Federal Confidentiality of Alcohol and Drug Abuse Patient Records regulations: The Federal rules restrict any use of the information to criminally investigate or prosecute any alcohol or drug abuse patient.[facility] CenterIn the event this information is protected by the Federal Confidentiality of Alcohol and Drug Abuse Patient Records regulations: The Federal rules restrict any use of the information to criminally investigate or prosecute any alcohol or drug abuse patient.[facility] CenterIn the event this information is protected by the Federal Confidentiality of Alcohol and Drug Abuse Patient Records regulations: The Federal rules restrict any use of the information to criminally investigate or prosecute any alcohol or drug abuse patient.[facility] CenterIn the event this information is protected by the Federal Confidentiality of Alcohol and Drug Abuse Patient Records regulations: The Federal rules restrict any use of the information to criminally investigate or prosecute any alcohol or drug abuse patient.[facility] CenterIn the event this information is protected by the Federal Confidentiality of Alcohol and Drug Abuse Patient Records regulations: The Federal rules restrict any use of the information to criminally investigate or prosecute any alcohol or drug abuse patient.[facility] CenterIn the event this information is protected by the Federal Confidentiality of Alcohol and Drug Abuse Patient Records regulations: The Federal rules restrict any use of the information to criminally investigate or prosecute any alcohol or drug abuse patient.[facility] CenterIn the event this information is protected by the Federal Confidentiality of Alcohol and Drug Abuse Patient Records regulations: The Federal rules restrict any use of the information to criminally investigate or prosecute any alcohol or drug abuse patient.[facility] CenterIn the event this information is protected by the Federal Confidentiality of Alcohol and Drug Abuse Patient Records regulations: The Federal rules restrict any use of the information to criminally investigate or prosecute any alcohol or drug abuse patient.[facility] CenterIn the event this information is protected by the Federal Confidentiality of Alcohol and Drug Abuse Patient Records regulations: The Federal rules restrict any use of the information to criminally investigate or prosecute any alcohol or drug abuse patient.[facility] CenterIn the event this information is protected by the Federal Confidentiality of Alcohol and Drug Abuse Patient Records regulations: The Federal rules restrict any use of the information to criminally investigate or prosecute any alcohol or drug abuse patient.[facility] CenterIn the event this information is protected by the Federal Confidentiality of Alcohol and Drug Abuse Patient Records regulations: The Federal rules restrict any use of the information to criminally investigate or prosecute any alcohol or drug abuse patient.[facility] CenterIn the event this information is protected by the Federal Confidentiality of Alcohol and Drug Abuse Patient Records regulations: The Federal rules restrict any use of the information to criminally investigate or prosecute any alcohol or drug abuse patient.[facility] CenterIn the event this information is protected by the Federal Confidentiality of Alcohol and Drug Abuse Patient Records regulations: The Federal rules restrict any use of the information to criminally investigate or prosecute any alcohol or drug abuse patient.[facility] CenterIn the event this information is protected by the Federal Confidentiality of Alcohol and Drug Abuse Patient Records regulations: The Federal rules restrict any use of the information to criminally investigate or prosecute any alcohol or drug abuse patient.[facility] CenterIn the event this information is protected by the Federal Confidentiality of Alcohol and Drug Abuse Patient Records regulations: The Federal rules restrict any use of the information to criminally investigate or prosecute any alcohol or drug abuse patient.[facility] CenterIn the event this information is protected by the Federal Confidentiality of Alcohol and Drug Abuse Patient Records regulations: The Federal rules restrict any use of the information to criminally investigate or prosecute any alcohol or drug abuse patient.[facility] CenterIn the event this information is protected by the Federal Confidentiality of Alcohol and Drug Abuse Patient Records regulations: The Federal rules restrict any use of the information to criminally investigate or prosecute any alcohol or drug abuse patient.[facility] CenterIn the event this information is protected by the Federal Confidentiality of Alcohol and Drug Abuse Patient Records regulations: The Federal rules restrict any use of the information to criminally investigate or prosecute any alcohol or drug abuse patient.[facility] CenterIn the event this information is protected by the Federal Confidentiality of Alcohol and Drug Abuse Patient Records regulations: The Federal rules restrict any use of the information to criminally investigate or prosecute any alcohol or drug abuse patient.[facility] CenterIn the event this information is protected by the Federal Confidentiality of Alcohol and Drug Abuse Patient Records regulations: The Federal rules restrict any use of the information to criminally investigate or prosecute any alcohol or drug abuse patient.[facility] CenterIn the event this information is protected by the Federal Confidentiality of Alcohol and Drug Abuse Patient Records regulations: The Federal rules restrict any use of the information to criminally investigate or prosecute any alcohol or drug abuse patient.[facility] CenterIn the event this information is protected by the Federal Confidentiality of Alcohol and Drug Abuse Patient Records regulations: The Federal rules restrict any use of the information to criminally investigate or prosecute any alcohol or drug abuse patient.[facility] CenterIn the event this information is protected by the Federal Confidentiality of Alcohol and Drug Abuse Patient Records regulations: The Federal rules restrict any use of the information to criminally investigate or prosecute any alcohol or drug abuse patient.[facility] CenterIn the event this information is protected by the Federal Confidentiality of Alcohol and Drug Abuse Patient Records regulations: The Federal rules restrict any use of the information to criminally investigate or prosecute any alcohol or drug abuse patient.[facility] CenterIn the event this information is protected by the Federal Confidentiality of Alcohol and Drug Abuse Patient Records regulations: The Federal rules restrict any use of the information to criminally investigate or prosecute any alcohol or drug abuse patient.[facility] CenterIn the event this information is protected by the Federal Confidentiality of Alcohol and Drug Abuse Patient Records regulations: The Federal rules restrict any use of the information to criminally investigate or prosecute any alcohol or drug abuse patient.[facility] CenterIn the event this information is protected by the Federal Confidentiality of Alcohol and Drug Abuse Patient Records regulations: The Federal rules restrict any use of the information to criminally investigate or prosecute any alcohol or drug abuse patient.[facility] CenterIn the event this information is protected by the Federal Confidentiality of Alcohol and Drug Abuse Patient Records regulations: The Federal rules restrict any use of the information to criminally investigate or prosecute any alcohol or drug abuse patient.[facility] CenterIn the event this information is protected by the Federal Confidentiality of Alcohol and Drug Abuse Patient Records regulations: The Federal rules restrict any use of the information to criminally investigate or prosecute any alcohol or drug abuse patient.[facility] CenterIn the event this information is protected by the Federal Confidentiality of Alcohol and Drug Abuse Patient Records regulations: The Federal rules restrict any use of the information to criminally investigate or prosecute any alcohol or drug abuse patient.[facility] CenterIn the event this information is protected by the Federal Confidentiality of Alcohol and Drug Abuse Patient Records regulations: The Federal rules restrict any use of the information to criminally investigate or prosecute any alcohol or drug abuse patient.[facility] CenterIn the event this information is protected by the Federal Confidentiality of Alcohol and Drug Abuse Patient Records regulations: The Federal rules restrict any use of the information to criminally investigate or prosecute any alcohol or drug abuse patient.[facility] CenterIn the event this information is protected by the Federal Confidentiality of Alcohol and Drug Abuse Patient Records regulations: The Federal rules restrict any use of the information to criminally investigate or prosecute any alcohol or drug abuse patient.[facility] CenterIn the event this information is protected by the Federal Confidentiality of Alcohol and Drug Abuse Patient Records regulations: The Federal rules restrict any use of the information to criminally investigate or prosecute any alcohol or drug abuse patient.[facility] Care Teams (unrecognized sec tion and content) Refractory Tile Helper Relationship Specialty Start Date End Date Prudencio Pedro MD [address] [place], [place] [id number] PCP - General Family Practice 05/10/19 Refractory Tile Helper Relationship Specialty Start Date End Date Prudencio Pedro MD [address] [place] [address] PCP - General Family Practice 05/10/19 Refractory Tile Helper Relationship Specialty Start Date End Date Prudencio Pedro MD [address] [place] [address] PCP - General Family Practice 05/10/19 Refractory Tile Helper Relationship Specialty Start Date End Date Prudencio Pedro MD [address] [place] [address] PCP - General Family Practice 05/10/19 Refractory Tile Helper Relationship Specialty Start Date End Date Prudencio Pedro MD [address] [facility] [place] [address] PCP - General Family Practice 05/10/19 Refractory Tile Helper Relationship Specialty Start Date End Date Prudencio Pedro MD [address] [facility] [place] [address] PCP - General Family Medicine 05/10/19 Refractory Tile Helper Relationship Specialty Start Date End Date Prudencio Pedro MD [address] [facility] [place] [address] PCP - General Family Medicine 05/10/19 Refractory Tile Helper Relationship Specialty Start Date End Date Prudencio Pedro MD [address] [facility] [place] [address] PCP - General Family Medicine 05/10/19 Refractory Tile Helper Relationship Specialty Start Date End Date Prudencio Pedro MD [address] [facility] [place] [address] PCP - General Family Medicine 05/10/19 Refractory Tile Helper Relationship Specialty Start Date End Date Prudencio Pedro MD [address] [facility] [place] [address] PCP - General Family Medicine 05/10/19 Refractory Tile Helper Relationship Specialty Start Date End Date Prudencio Pedro MD [address] [facility] [place] [address] PCP - General Family Medicine 05/10/19 Refractory Tile Helper Relationship Specialty Start Date End Date Prudencio Pedro MD [address] [facility] [place] [address] PCP - General Family Medicine 05/10/19 Refractory Tile Helper Relationship Specialty Start Date End Date Prudencio Pedro MD [address] [facility] [place] [address] PCP - General Family Medicine 05/10/19 Refractory Tile Helper Relationship Specialty Start Date End Date Prudencio Pedro MD [address] [facility] [place] [address] PCP - General Family Medicine 05/10/19 Refractory Tile Helper Relationship Specialty Start Date End Date Prudencio Pedro MD [address] [facility] [place] [address] PCP - General Family Medicine 05/10/19 Refractory Tile Helper Relationship Specialty Start Date End Date Prudencio Pedro MD [address] [facility] [place] [address] PCP - General Family Medicine 05/10/19 Refractory Tile Helper Relationship Specialty Start Date End Date Prudencio Pedro MD [address] [facility] [place] [address] PCP - General Family Medicine 05/10/19 Refractory Tile Helper Relationship Specialty Start Date End Date Prudencio Pedro MD [address] [facility] [place] [address] PCP - General Family Medicine 05/10/19 Refractory Tile Helper Relationship Specialty Start Date End Date Prudencio Pedro MD [address] [facility] [place] [address] PCP - General Family Medicine 05/10/19 Refractory Tile Helper Relationship Specialty Start Date End Date Prudencio Pedro MD [address] [facility] [place] [address] PCP - General Family Medicine 05/10/19 Refractory Tile Helper Relationship Specialty Start Date End Date Prudencio Pedro MD [address] [facility] [place] [address] PCP - General Family Medicine 05/10/19 Refractory Tile Helper Relationship Specialty Start Date End Date Prudencio Pedro MD [address] [facility] [place] [address] PCP - General Family Medicine 05/10/19 Refractory Tile Helper Relationship Specialty Start Date End Date Prudencio Pedro MD [address] [place] [address] PCP - General Family Medicine 05/10/19 Team Status: Active Member Role Status Dates [employer] Family Provider Active Dr. Segundo Pedro MD Primary Care Provider Acti ve Team Status: Inactive Member Role Status Dates Dr. Segundo Pedro MD Primary Care Provider Acti ve [employer] Attending Provider, Referring Provider Active Team Status: Active Member Role Status Dates Dr. Segundo Pedro MD Primary Care Provider Acti ve Dr. Epi Mcdonald MD Attending Provider, Referrin g Provider Active Team Status: Inactive Member Role Status Dates Dr. Segundo Pedro MD Primary Care Provider Acti ve Dr. Epi Mcdonald MD Attending Provider, Referrin g Provider Active Refractory Tile Helper Relationship Specialty Start Date End Date Prudencio Pedro MD [address] [place] [address] PCP - General Family Medicine 05/10/19 Refractory Tile Helper Relationship Specialty Start Date End Date Prudencio Pedro MD [address] [place] [address] PCP - General Family Medicine 05/10/19 Refractory Tile Helper Relationship Specialty Start Date End Date Prudencio Pedro MD [address] [facility] [place] [address] PCP - General Family Medicine 05/10/19 Refractory Tile Helper Relationship Specialty Start Date End Date Prudencio Pedro MD [address] [place] [address] PCP - General Family Medicine 05/10/19 Refractory Tile Helper Relationship Specialty Start Date End Date Prudencio Pedro MD [address] [facility] [place] [address] PCP - General Family Medicine 05/10/19 Refractory Tile Helper Relationship Specialty Start Date End Date Prudencio Pedro MD [address] [facility] [place] [address] PCP - General Family Medicine 05/10/19 Refractory Tile Helper Relationship Specialty Start Date End Date Prudencio Pedro MD [address] [facility] [place] [address] PCP - General Family Medicine 05/10/19 Refractory Tile Helper Relationship Specialty Start Date End Date Prudencio Pedro MD [address] [facility] [place] [address] PCP - General Family Medicine 05/10/19 Refractory Tile Helper Relationship Specialty Start Date End Date Prudencio Pedro MD [address] [facility] [place] [address] PCP - General Family Medicine 05/10/19 Refractory Tile Helper Relationship Specialty Start Date End Date Prudencio Pedro MD [address] [facility] [place] [address] PCP - General Family Medicine 05/10/19 Refractory Tile Helper Relationship Specialty Start Date End Date Prudencio Pedro MD [address] [facility] [place] [address] PCP - General Family Medicine 05/10/19 Refractory Tile Helper Relationship Specialty Start Date End Date Prudencio Pedro MD [address] [facility] [place] [address] PCP - General Family Medicine 05/10/19 Refractory Tile Helper Relationship Specialty Start Date End Date Prudencio Pedro MD [address] [facility] [place] [address] PCP - General Family Medicine 05/10/19 Refractory Tile Helper Relationship Specialty Start Date End Date Prudencio Pedro MD [address] [facility] [place] [address] PCP - General Family Medicine 05/10/19 Refractory Tile Helper Relationship Specialty Start Date End Date Prudencio Pedro MD [address] [facility] [place] [address] PCP - General Family Medicine 05/10/19 Refractory Tile Helper Relationship Specialty Start Date End Date Prudencio Pedro MD [address] [facility] [place] [address] PCP - General Family Medicine 05/10/19 Refractory Tile Helper Relationship Specialty Start Date End Date Prudencio Pedro MD [address] [facility] [place] [address] PCP - General Family Medicine 05/10/19 Refractory Tile Helper Relationship Specialty Start Date End Date Prudencio Pedro MD [address] [facility] [place] [address] PCP - General Family Medicine 05/10/19 Refractory Tile Helper Relationship Specialty Start Date End Date Prudencio Pedro MD [address] [facility] [place] [address] PCP - General Family Medicine 05/10/19 Refractory Tile Helper Relationship Specialty Start Date End Date Prudencio Pedro MD [address] [facility] [place] [address] PCP - General Family Medicine 05/10/19 Refractory Tile Helper Relationship Specialty Start Date End Date Prudencio Pedro MD [address] [place] [address] PCP - General Family Medicine 05/10/19 Refractory Tile Helper Relationship Specialty Start Date End Date Prudencio Pedro MD [address] [place] [address] PCP - General Family Medicine 05/10/19 Refractory Tile Helper Relationship Specialty Start Date End Date Prudencio Pedro MD [address] [place] [address] PCP - General Family Medicine 05/10/19 Refractory Tile Helper Relationship Specialty Start Date End Date Prudencio Pedro MD [address] [place] [address] PCP - General Family Medicine 05/10/19 Refractory Tile Helper Relationship Specialty Start Date End Date Prudencio Pedro MD [address] [place] [address] PCP - General Family Medicine 05/10/19 Refractory Tile Helper Relationship Specialty Start Date End Date Prudencio Pedro MD [address] [place] [address] PCP - General Family Medicine 05/10/19 Refractory Tile Helper Relationship Specialty Start Date End Date Prudencio Pedro MD [address] [place] [address] PCP - General Family Medicine 05/10/19 Team Status: Inactive Member Role Status Dates Dr. Epi Mcdonald MD Attending Provider, [facility] Provider Active Dr. Segundo Pedro MD Primary Care Provider Acti ve Team Status: Inactive Member Role Status Dates Dr. Segundo WILSON MD Referring Provider Acti ve [employer] Attending Provider Active Dr. Segundo Pedro MD Primary Care Provider Acti ve Team Status: Inactive Member Role Status Dates [employer] Attending Provider, Referring Provider Active Dr. Segundo Pedro MD Primary Care Provider Acti ve Refractory Tile Helper Relationship Specialty Start Date End Date Prudencio Pedro MD [address] [facility] [place] [address] PCP - General Family Medicine 05/10/19 Refractory Tile Helper Relationship Specialty Start Date End Date Prudencio Pedro MD [address] [facility] [place] [address] PCP - General Family Medicine 05/10/19 Refractory Tile Helper Relationship Specialty Start Date End Date Prudencio Pedro MD [address] [facility] [place] [address] PCP - General Family Medicine 05/10/19 Refractory Tile Helper Relationship Specialty Start Date End Date Prudencio Pedro MD [address] [facility] [place] [address] PCP - General Family Medicine 05/10/19 Refractory Tile Helper Relationship Specialty Start Date End Date Prudencio Pedro MD [address] [facility] [place] [address] PCP - General Family Medicine 05/10/19 Refractory Tile Helper Relationship Specialty Start Date End Date Prudencio Pedro MD [address] [facility] [place] [id number] PCP - General Family Medicine 05/10/19 Refractory Tile Helper Relationship Specialty Start Date End Date Prudencio Pedro MD [address] [facility] [place] [address] PCP - General Family Medicine 05/10/19 Refractory Tile Helper Relationship Specialty Start Date End Date Prudencio Pedro MD [address] [facility] [place] [place] [address] PCP - General Family Medicine 05/10/19 Refractory Tile Helper Relationship Specialty Start Date End Date Prudencio Pedro MD [address] [facility] [place] [address] PCP - General Family Medicine 05/10/19 Refractory Tile Helper Relationship Specialty Start Date End Date Prudencio Pedro MD [address] [facility] [place] [place] [address] PCP - General Family Medicine 05/10/19 Refractory Tile Helper Relationship Specialty Start Date End Date Prudencio Pedro MD [address] [facility] [place] [address] PCP - General Family Medicine 05/10/19 Refractory Tile Helper Relationship Specialty Start Date End Date Prudencio Pedro MD [address] [facility] [place] [address] PCP - General Family Medicine 05/10/19 Refractory Tile Helper Relationship Specialty Start Date End Date Prudencio Pedro MD [address] [facility] [place] [address] PCP - General Family Medicine 05/10/19 03/02/24 Refractory Tile Helper Relationship Specialty Start Date End Date Prudencio Pedro MD [address] [facility] [place] [address] PCP - General Family Medicine 05/10/19 03/02/24 Refractory Tile Helper Relationship Specialty Start Date End Date Prudencio Pedro MD [address] [place] [address] PCP - General Family Medicine 05/10/19 03/02/24 Refractory Tile Helper Relationship Specialty Start Date End Date Prudencio Pedro MD [address] [facility] [place] [address] PCP - General Family Medicine 05/10/19 03/02/24 Refractory Tile Helper Relationship Specialty Start Date End Date Prudencio Pedro MD [address] [facility] [place] [address] PCP - General Family Medicine 05/10/19 03/02/24 Refractory Tile Helper Relationship Specialty Start Date End Date Prudencio Pedro MD [address] [facility] [place] [address] PCP - General Family Medicine 05/10/19 03/02/24 Refractory Tile Helper Relationship Specialty Start Date End Date Prudencio Pedro MD [address] [facility] [place] [address] PCP - General Family Medicine 05/10/19 03/02/24 Refractory Tile Helper Relationship Specialty Start Date End Date Fina Iraheta MD [address] [facility] [address] [place] [phone] PCP - General Internal Medicine 06/03/24 Refractory Tile Helper Relationship Specialty Start Date End Date Fina Iraheta MD [address] [facility] [address] [place] [address] PCP - General Internal Medicine 06/03/24 Refractory Tile Helper Relationship Specialty Start Date End Date Fina Iraheta MD [address] [place] [address] PCP - General Internal Medicine 06/03/24 Refractory Tile Helper Relationship Specialty Start Date End Date Fina Iraheta MD [address] [place] [address] PCP - General Internal Medicine 06/03/24 Refractory Tile Helper Relationship Specialty Start Date End Date iFna Iraheta MD [address] [place] [address] PCP - General Internal Medicine 06/03/24 Refractory Tile Helper Relationship Specialty Start Date End Date Fina Iraheta MD [address] [place] [address] PCP - General Internal Medicine 06/03/24 Refractory Tile Helper Relationship Specialty Start Date End Date Fina Iraheta MD [address] [place] [address] PCP - General Internal Medicine 06/03/24 Refractory Tile Helper Relationship Specialty Start Date End Date Fina Iraheta MD [address] [place] [address] PCP - General Internal Medicine 06/03/24 Refractory Tile Helper Relationship Specialty Start Date End Date Fina Iraheta MD [address] [place] [phone] PCP - General Internal Medicine 06/03/24 Refractory Tile Helper Relationship Specialty Start Date End Date Fina Iraheta MD [address] [place] [address] PCP - General Internal Medicine 06/03/24 Refractory Tile Helper Relationship Specialty Start Date End Date Fina Iraheta MD [address] [place] [address] PCP - General Internal Medicine 06/03/24 Team Status: Active Member Role Status Dates Dr. Fina Iraheta MD Primary Care Provider Active Team Status: Inactive Member Role Status Dates Dr. Hugn Cai MD Attending Provider Active Sta rt: [...] 2024 End: September 11, 2024 Namrata Vazquez [employer] Attending Provider Active Start: September 11, 2024 End: September 11, 2024 Team Status: Inactive Member Role Status Dates Dr. Fina Iraheta MD Primary Care Provider Active Start: September 11, 2024 End: September 11, 2024 Namrata Vazquez [employer] Attending Provider Active Start: September 11, 2024 End: September 11, 2024 Namrata Vazquez [employer] Referring Provider Active Start: September 11, 2024 [...] October 04, 2024 End: October 04, 2024 Refractory Tile Helper Relationship Specialty Start Date End Date Fina Iraheta MD [address] [facility] [address] [place] [phone] PCP - General Internal Medicine 06/03/24 Team [...] November 28, 2024 End: November 28, 2024 Refractory Tile Helper Relationship Specialty Start Date End Date Fina Iraheta MD [address] [place] [phone]- PCP - General Internal Medicine 06/03/24 Refractory Tile Helper Relationship Specialty Start Date End Date Fina Iraheta MD [address] [place] [address] PCP - General Internal Medicine 06/03/24 Refractory Tile Helper Relationship Specialty Start Date End Date Fina Iraheta MD [address] [place] [address] PCP - General Internal Medicine 06/03/24 Team [...] March 08, 2025 End: March 08, 2025 Refractory Tile Helper Relationship Specialty Start Date End Date Fina Iraheta MD Lg Hernández [facility] [address] [place] [phone] PCP - General Internal Medicine 06/03/24 Team [...] March 15, 2025 End: March 15, 2025 Refractory Tile Helper Relationship Specialty Start Date End Date Fina Iraheta MD [address] [facility] [address] [place] [phone] PCP - General Internal Medicine 06/03/24 Team [...] 2025 End: March 11, 2025 Dr. Fina rIaheta MD Referring Provider Active Start: March 11, [...] 18, 2025 End: April 18, 2025 Gem Graves [employer] Attending physician Active Start: April 18, 2025 End: April 18, 2025 Gemginette Graves , [employer] Referring Provider Active Start: April 18, 2025 [...] 2025 End: May 13, 2025 Gem Graves [employer] Attending physician Active Start: May 13, 2025 End: May 13, 2025 Team Status: Active Member Role/Relationship Status Dates Dr. Fina Iraheta MD Primary care physician Activ e Start: May 13, 2025 Gem Graves [employer] Attending physician Active Start: May 13, 2025 Gem Ungerer , [employer] Referring Provider Active Start: May 13, 2025 Team Status: Active Member Role/Relationship Status Dates Dr. Fina Iraheta MD Primary care physician Activ e Start: May 13, 2025 Dr. Epi Mcdonald MD Attending physician Active Start: May [...] RSPSE SPMTRY PRE&POST-BRNCDILAT ADMN Prudencio Pedro MD [facility] [place] [address] [facility] [place] [address] [place] [id number] Referral ID Status Reason Start Date Expiration Date V isits Requested Visits Authorized [id number] Closed Auto-Generate d Referral 02/18/2022 03/20/2023 1 [...] TIME WITH IMAGE LIMITED Prudencio Pedro MD [address] [place] [address] [facility] [address] [place] [address] Referral ID Status Reason Start Date Expiration Date V isits Requested Visits Authorized [id number] Closed Auto-Generate d Referral 09/15/2022 10/15/2023 1 1 Specialty Diagnoses / Procedures Referred By Contac t Referred To Contact [facility] Diagnoses Abnormal mammogram Procedures US BREAST LTD RIGHT US BREAST UNI REAL TIME WITH IMAGE LIMITED Prudencio Pedro MD [address] [place] [address] [facility] [address] [place] [phone] Referral ID Status Reason Start Date Expiration Date V isits Requested Visits Authorized [id number] Closed Auto-Generate d Referral 04/20/2023 11/18/2023 1 1 Reason Comments New Fracture Specialty Diagnoses / Procedures Referred By Contac t Referred To Contact Orthopedics Diagnoses Closed fracture of left wrist, initial encounter Procedures CONSULT TO ORTHOPAEDICS OFFICE/OUTPATIENT [facility] 60-74 MINUTES Aliyah Araujo APRN.FERTILIZING MACHINE OPERATOR [address] [place] [address] Bruce Wilson MD [address] [place] [address] Referral ID Status Reason Start Date Expiration Date V isits Requested Visits Authorized [id number] Closed PCP Requested Referral 04/18/2023 04/17/2024 1 [...] David Brown MD [address] [place] [address] [facility] [place] [address] [place] [address] Referral ID Status Reason Start Date Expiration Date V isits Requested Visits Authorized [id number] Closed Auto-Generate d Referral 03/14/2023 04/12/2024 1 [...] has NOT seen wound care Reason Comments [facility] Wound Center requesting records Reason Onset Date Comments Refill Request 02/13/2024 Reason Comments Medication Request Reason Comments [facility] paperwork Reason Comments Paperwork Question Reason Comments Hospital F/U Discharged 02/21/24 from [facility] Reason Comments Burn Reason Comments Patient [...] 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 [facility] [employer] [facility]. provides no warranty or guarantee of the accuracy or completeness of information in this document.
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
[2025-06-30 16:26] VITALS: BP 114/61; PULSE 74; RESP 16; TEMP 35.9; O2SAT 100
== END 2025-06-30 16:27 | disposition home or self-care (01) ==
PROVIDERS: Emergency Provider Student in an Organized Health Care Education/Training Program; PCP Internal Medicine; Visit Provider Student in an Organized Health Care Education/Training Program
DX: H53.8 Other visual disturbances (principal); I67.1 Cerebral aneurysm, nonruptured; F17.210 Nicotine dependence, cigarettes, uncomplicated
CPT/HCPCS: 70496; 70498; 99282; Q9967; A4216

== ENCOUNTER 2025-07-17 05:06 | Emergency (ER) | payer MEDICAID, SELFPAY ==
[2025-07-17 05:07] VITALS: BP 135/110; PULSE 84; RESP 18; TEMP 36.6; O2SAT 100; BMI 23.2
--- NOTE | 2025-07-17 05:20 | EKG12_ITS ---
Test Reason : COUGH Blood Pressure : */* mmHG Vent. Rate : 72 BPM Atrial Rate : 72 BPM P-R Int : 142 ms QRS Dur : 76 ms QT Int : 394 ms P-R-T Axes : 70 64 60 degrees QTcB Int : 431 ms Normal sinus rhythm Normal ECG Confirmed by Levi Geller ([id number]), supervising editor trailer DULCE LOPEZ ([id number]) on 07/22/2025 9:03:46 AM Referred By: Confirmed By: Levi Geller
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
--- OUTSIDE RECORDS SUMMARY | 2025-07-17 05:30 | XMS RPT_ITS | CCD ---
Author Organization [facility] CliniSyil Care Team Providers Care Client Partner Name Role Phone Prudencio Pedro MD Primary Care Provider Dr. Segundo Pedro Primary Care Provider [phone] Taylor STOCK ANALYST, STOCK ANALYST-C Namrata Attending Provider Taylor STOCK ANALYST, STOCK ANALYST-C [place]rata Referring Provider Prudencio Pedro MD Primary Care Provider Dr. Segundo Newell Referring Provider Taylor CORBETT, STOCK ANALYST-C [place] Attending Provider Dr. Segundo Pedro Primary Care Provider Prudencio Pedro MD Primary Care Provider Prudencio Pedro MD Primary Care Provider Unavailable Primary Care Provider Fina Moser MD Primary Care Provider Dr. Hung Cai MD Attending Provider Dr. Hung Cai MD Referring Provider Dr. Hung Cai MD Emergency Provider Dr. Fina Iraheta MD Primary Care Provider Dr. Segundo Pedro MD Referring Provider [phone] Dr. Fina Iraheta MD Attending Provider Dr. Fina Iraheta MD Referring Provider Taylor STOCK ANALYST-C, Namrata Attending Provider Taylor STOCK ANALYST-C, Namrata Referring Provider Tamara CHAUDHRY, Dr. Chowdary Attending Provider Tamara CHAUDHRY, Dr. Chowdary Referring Provider Dr. Joselito Nichols DO Emergency Provider Niru CHAUDHRY, Dr. Lucas Serna Attending Provider Niru CHAUDHRY, Dr. Lucas Serna Referring Provider Lawrence Nieves Attending Provider Dr. Joselito Nichols DO Attending Provider Taylor STOCK ANALYST-C, Namrata Referring Provider Dr. Saturnino Mix DO Emergency Provider Myrtle CHAUDHRY, Dr. Newton Primary Care Provider Myrtle CHAUDHRY, Dr. Newton Attending Provider Myrtle HCAUDHRY, Dr. Newton Referring Provider Dr. Saturnino Mix DO Attending Provider Lawrence Nieves Attending Provider Dr. Bella Luciano DO Emergency Provider Lalo Dorantes Attending Provider Myrtle CHAUDHRY, Dr. Newton Primary Care Provider Myrtle CHAUDHRY, Dr. Newton Referring Provider Dr. Bella Luciano DO Attending Provider Myrtle CHAUDHRY, Dr. Newton Attending Provider Ely STOCK ANALYST-CGem Attending Provider Provider, Ed Physician Emergency Provider [...] Dr. Fina Iraheta MD Attending Physician [phone] Dr. Saturnino Mix DO Attending Physician Dr. Saturnino Mix DO Emergency Department Physi juan f Ungerer STOCK ANALYST-C, Gem Attending Physician Provider, Ed Physician Attending Physician Unava ilable Provider, Ed Physician Emergency Department Phys ician Unavailable Govind CHAUDHRY, Dr. Sutton Attending Physician [phone] Dr. Herman Faust MD Emergency Department Physici an Ungerer STOCK ANALYST-C, Gem Referring Provider [phone] Isaiah CHAUDHRY, Dr. Henning Attending Physician Dr. Epi Mcdonald MD Attending Physician [phone] Dr. Epi Mcdonald MD Referring Provider Oleghe, Efewongbe Primary Care Unavailable Niru, Lucas K Attending Unavailable Niru, Lucas K Referring Unavailable Ungerer, Gem Attending Unavailable Ungerer, Gem Referring Unavailable Oleghe, Efewongbe Primary Care Unavailable UngererCristinaGem Attending Unavailable Ungerer, Gem Referring Unavailable Oleghe, Efewongbe Primary Care Unavailable Herman Fuast Attending Unavailable Oleghe, Efewongbe Primary Care Unavailable [...] Unavailable Oleghe, Efewongbe Primary Care Unavailable Taylor STOCK ANALYST, Namrata Attending Unavailable Taylor STOCK ANALYST, Namrata Referring Unavailable Oleghe, Efewongbe Referring Unavailable [...] Unavailable Oleghe, Efewongbe Primary Care Unavailable Taylor STOCK ANALYST Namrata Attending Unavailable Taylor STOCK ANALYST, Namrata Referring Unavailable Oleghe, Efewongbe Referring Unavailable Oleghe, Efewongbe Attending Unavailable Oleghe, Efewongbe Primary Care Unavailable Allergies Allergy Classification Reported Allergen(s) Allergy Type Date of Onset Reaction(s) Facility montelukast (2 sources) montelukast Drug Allergy 2 Other: See Comments [facility] Work Phone: (20 sources) House Dust Mite; Translations: [HOUSE DUST MITE] Propensity to adverse reactions to drug 1 Other: See Comments [facility] (20 sources) house dust allergenic extract Drug Allergy 2 Shortness of breath [facility] (20 sources) montelukast; Translations: [MONTELUKAST] Drug Allergy 2 Other: See Comments [facility] Work Phone: (1 source) house dust allergenic extract Drug Allergy 5 [facility] Repository (1 source) montelukast Drug Allergy 5 [facility] Medications Current Medications Medication Drug Class(es) [...] a day. 2 Each 2 02/06/2024 Active [id number] 200 actuat albuterol 0.09 mg/actuat metered dose [...] 1 day. Take 1 capsule by mo [facility] two times a day for 10 [...] mouth three times a day with meals. 98925 mL 1 04/18/2024 07/31/2024 Discontinued Start: 04-18-2024 take 237 mL by mouth three times daily at mealtime Food Supplement, Lactose-Free (ENSURE HIGH PROTEIN) liqd Take 237 mL by mouth three times a day with meals. 11579 mL 1 04/18/2024 Active Food Supplement, Lactose-Free (PROMOTE, OSMOLITE, TWO ARNULFO, ENSURE PLUS, ENLIVE) liqd (20 sources) Start: 02-28-2024 take 237 mL by mouth twice daily Food Supplement, Lactose-Free (PROMOTE, OSMOLITE, TWO ARNULFO, ENSURE PLUS, ENLIVE) liqd Take 237 mL by mouth two times a day. Preferred flavor: Chocolate 17512 mL 2 02/28/2024 Active Start: 02-28-2024 End: 05-28-2024 take 237 mL by mouth twice daily Food Supplement, Lactose-Free (PROMOTE, OSMOLITE, TWO ARNULFO, ENSURE PLUS, ENLIVE) liqd Take 237 mL by mouth two times a day. Preferred flavor: Chocolate 98263 mL 2 02/28/2024 05/28/2024 Active 12 hr [...] 2.5 ug by inhalation once daily Tiotropium [place] (Tiotropium [place] 2.5 Mcg/Actuation Mist For Inhalation) 2.5 mcg/actuation [...] oral solution (20 sources) alpha-Adrenergic Agonist, Uncompetitive K-ayebsk-N-aspartate Receptor Antagonist, Sigma-1 Agonist Start: 06-03-2024 End: 12-13-2024 take 5 mL by mouth four times daily as needed Lgkedphcppwepfl-Adcgjjmgd-KO (BROMFED DM) 2-30-10 mg/5 mL syrup Indications: [...] on above: Take 1 capsule by mo [facility] one time a week. Take 2,000 Units by mouth once daily. [facility]. docusate sodium 100 mg [...] 1 tablet by mouth once daily fexofenadine (IXAO ALLERGY) 60 mg tablet Indications: Acute cough Take 1 tablet by mouth once daily. 30 tablet 1 01/26/2022 02/18/2022 Discontinued Comment on above: Take [address] [facility] once daily. Gauze Bandage bndg (20 [...] Comment on above: Take [address] [facility] every 12 hours. Inhalational Spacing Device [...] Cell Capsule) 20 billion cell capsule Discontinued [id number] NMA PO DAILY August 01, 2024 1:00am September 11, 2024 12:46pm Start: 08-10-2022 End: 04-13-2023 take 1 capsule by mouth once daily Lactobacillus acidophilus (FLORAJEN ACIDOPHILUS) 20 billion cell cap Indications: Vaginal discharge , Bacterial vaginosis Take 1 capsule by mouth once daily. 30 capsule 0 09/06/2022 04/13/2023 Discontinued Comment on above: Take 1 capsule by [facility] once daily. lansoprazole 15 mg delayed [...] on above: Take 1 capsule by mo [facility] daily before breakfast. 1/2 hr before [...] 12 Lead EKGon 05-27-2025 12 Lead EKG [facility] Cardiovascular Services [address] [place] [address] 12 Lead EKG 05/27/25 1001 MR#: [id number] Acct: [id number] Name: TRACY VAZQUEZ Rep #: [id number] : 1970 55 From: Rubina Rodriguez MD Attending Dr: Dr. Juvencio Colon MD Status: REG [facility] Ordering Dr: Uziel Kendrick MD Date: 05/27/25 [...] was found Confirmed by Rubina Rodriguez ([id number]), editor dictionary DULCE LOPEZ ([id number]) on 05/27/2025 1:11:11 PM Referred By: Juvencio Colon Confirmed By: Rubina Rodriguez 05/27/25 1311 Date Rubina Rodriguez MD CC: Dr. Uziel Kendrick MD; Dr. Juvencio Colon MD; Dr. Fina Iraheta MD Signed Normal [facility] Discharge Instructionon 05-18 Discharge Instruction [facility] Medical Records Department [address] [place] [address] Instructions for Home/Discharge Instructions 05/27/25 1532 MR#: [id number] Acct: [id number] Name: TRACY VAZQUEZ Rep #: [id number] : 1970 55 From: Juvencio Colon MD PCP: Dr. Fina Iraheta MD Status:REG [facility] Discharge Instructions Procedure Gallbladder Diet Discharge Diet: [...] to schedule 2 week follow up appointment. [phone] Test Results: Test results from this visit will be discussed in further detail at your follow-up appointment, if applicable. Discharge Plan Admission Attending Provider: Juvencio Colon Primary Care Provider: Fina Iraheta Instructions Print Language: Mohawk Discharge Orders/Prescriptions Prescriptions: New oxycodone 5 mg [...] can be placed): Home, Self Care 05/27/25 1538 Juvencio Colon MD CC: Dr. Fina Iraheta MD Signed Normal [facility] MR/POSTOP.Julio 05-27-2025 MR/POSTOP.[facility] Medical Records Department [address] [place] [address] Anesthesia Postop Eval I 05/27/25 1544 MR#: [id number] Acct: [id number] Name: TRACY VAZQUEZ Rep #: [id number] : 1970 55 From: Alpa Morales MARKETING SALES REPRESENTATIVE PCP: Dr. Fina Iraheta MD Status:REG SDC Y Race: C Location: [place] [address] Anesthesia: Postop Eval I Current Vital Signs [...] completed: Yes 05/27/25 1545 Date Alpa Morales MARKETING SALES REPRESENTATIVE Cosigner Signature: Date CC: Signed Normal [facility] MR/[id number] [facility]-27-2025 [facility] Medical Records Department [address] [place] [address] Anesthesia Postop Eval II 05/27/25 1637 MR#: [id number] Acct: [id number] Name: ELIZABETH VAZQUEZQUELINE JUAN Rep #: [id number] : 1970 55 From: Jorge Alanis MD PCP: Dr. Fina Iraheta MD Status:REG SD Y Race: C Location: [place] [address] Anesthesia Postop Eval I Sum Postop Eval Completion status Anesthesia document: Postop Eval 1 completed: Yes Anesthesia Postop Eval I Summary Anesthesia Postop Eval I Summary: Anesthesia Postop Eval I: Assessment Summary Airway patent Yes 05/27/25 15:45 MARKETING SALES REPRESENTATIVE.JDEF Spontaneous unlabored Yes 05/27/25 15:45 MARKETING SALES REPRESENTATIVE.JDEF respirations Mental status Awake,Calm 05/27/25 15:45 MARKETING SALES REPRESENTATIVE.JDEF nausea No 05/27/25 15:45 MARKETING SALES REPRESENTATIVE.JDEF Vomiting No 05/27/25 15:45 MARKETING SALES REPRESENTATIVE.JDEF Anesthesia Postop Eval I: Fluid Summary Crystalloid volume administer 05/27/25 15:45 MARKETING SALES REPRESENTATIVE.JDEF (ml) Colloids volume administered ( ml) Blood Product volume administered (ml) Total IV fluid infused ,05/27/25 15:45 MARKETING SALES REPRESENTATIVE.JDEF Anesthesia Postop Eval I: Summary Notes Anesthesia Complication No 05/27/25 15:45 MARKETING SALES REPRESENTATIVE.JDEF Anesthesia Complication Comment: Post-operative progress note Anesthesia: Postop Eval II Evaluation Mental status: Awake Pain Level: 0 nausea: No Vomiting: No Complications Anesthesia Complication: No 05/27/25 1637 Date Jorge Alanis MD Cosigner Signature: Date CC: Signed Normal [facility] Operative Reporton 5 Operative Report [facility] Medical Records Department [address] [place] [address] Operative Report 05/27/25 1526 MR#: [id number] Acct: [id number] Name: TRACY VAZQUEZ Rep #: [id number] : 1970 55 From: Juvencio Colon MD PCP: Dr. Fina Iraheta MD Status:[facility] Location: [place] [address] Operative Report (Standard) Operative Information Date of Procedure: 05/27/25 Pre-Operative Diagnosis: Cholelithiasis Post-Operative Diagnosis: Same Surgery/Procedure Performed: Robotic assisted laparoscopic cholecystectomy stock analyst: Yes Drum Tender: Latoya Craft Tasks completed by assistant merchandise manager: Opening closing and Retracting Type of Anesthesia: [...] MD; Dr. Fina Iraheta MD Signed Normal [facility] HIV Viral Load Quanton 05-15 HIV-1 RNA, PCR < 20 Normal . [facility] Comment on above: Result Comment: HIV- 1 RNA not detected The reportable range for this assay is 20 to 10,000,000 copies HIV-1 RNA/mL. Performed By: #### L 500.4050, L501.2450, L100.0100 #### [facility] [address] [place], [address] log10 HIV-1 RNA TNP Normal . [facility] Comment on above: Result Comment: Resu lt Units: xdx67sdny/mL Unable to calculate result since non-numeric result obtained for component test. Performed at: [address] [id number] [place] Department Manager: Trevin Anguiano MD, Phone: [phone] Performed By: #### L 500.4050, L501.2450, L100.0100 #### [facility] [address] [place], [address] CD4, T Lymph Griffin Counton 05-14-2024 % CD4 POS.LYMPH 51.4 Normal 30.8-58.5 [facility] Comment on above: Performed By: #### L 500.4050, L501.2450, L100.0100 #### [facility] [address] [place], [address] ABSOLUTE CD4 1131 /uL Normal 359-1519 [facility] Comment on above: Performed By: #### L 500.4050, L501.2450, L100.0100 #### [facility] [address] [place], [address] Basophils 1 Normal Not Estab. [facility] Comment on above: Performed By: #### L 500.4050, L501.2450, L100.0100 #### [facility] [address] [place], [address] Basos Absolute 0.1 x10E3/uL Normal 0.0-0.2 [facility] Comment on above: Performed By: #### L 500.4050, L501.2450, L100.0100 #### [facility] [address] [place], [address] Eos Absolute 0.1 x10E3/uL Normal 0.0-0.4 [facility] Comment on above: Performed By: #### L 500.4050, L501.2450, L100.0100 #### [facility] [address] [place], [address] Eosinophils 2 Normal Not Estab. [facility] Comment on above: Performed By: #### L 500.4050, L501.2450, L100.0100 #### [facility] [address] [place], [address] Erythrocyte distribution width (RBC) [Ratio] 12.4 % Normal 11.7-15.4 [facility] Comment on above: Performed By: #### L 500.4050, L501.2450, L100.0100 #### [facility] [address] [place], [address] Hematocrit (Bld) [Volume fraction] 45.2 % Normal 34.0-46.6 [facility] Comment on above: Performed By: #### L 500.4050, L501.2450, L100.0100 #### [facility] [address] [place], [address] Heme Comment TNP Normal . [facility] Comment on above: Performed By: #### L 500.4050, L501.2450, L100.0100 #### [facility] [address] [place], [address] Hemoglobin (Bld) [Mass/Vol] 15.1 g/dL Normal 11.1-15.9 [facility] Comment on above: Performed By: #### L 500.4050, L501.2450, L100.0100 #### [facility] [address] [place], [address] Imm Grans Abs 0 x10E3/uL Normal 0.0-0.1 [facility] Comment on above: Result Comment: Perf ormed at: [facility] [address] [id number] [place] Department Manager: Leonard Chester PhD, Phone: [phone] Performed By: #### L 500.4050, L501.2450, L100.0100 #### [facility] [address] [place], [address] Immature Cells TNP Normal . [facility] Comment on above: Performed By: #### L 500.4050, L501.2450, L100.0100 #### [facility] [address] [place], [address] Immature Grans 0 Normal Not Estab. [facility] Comment on above: Performed By: #### L 500.4050, L501.2450, L100.0100 #### [facility] [address] [place], [address] Lymphocytes 35 Normal Not Estab. [facility] Comment on above: Performed By: #### L 500.4050, L501.2450, L100.0100 #### [facility] [address] [place], [address] Lymphocytes (Bld) [#/Vol] 2.2 10*3/uL Normal 0.7-3.1 [facility] Comment on above: Performed By: #### L 500.4050, L501.2450, L100.0100 #### [facility] [address] [place], [address] MCH (RBC) [Entitic mass] 34.4 pg High 26.6-33.0 [facility] Comment on above: Performed By: #### L 500.4050, L501.2450, L100.0100 #### [facility] [address] [place], [address] MCHC (RBC) [Mass/Vol] 33.4 g/dL Normal 31.5-35.7 [facility] Comment on above: Performed By: #### L 500.4050, L501.2450, L100.0100 #### [facility] [address] [place], [address] MCV (RBC) [Entitic vol] 103 fL High 79-97 [facility] Comment on above: Performed By: #### L 500.4050, L501.2450, L100.0100 #### [facility] [address] [place], [address] Monocytes 6 Normal Not Estab. [facility] Comment on above: Performed By: #### L 500.4050, L501.2450, L100.0100 #### [facility] [address] [place], [address] Monos Absolute 0.4 x10E3/uL Normal 0.1-0.9 [facility] Comment on above: Performed By: #### L 500.4050, L501.2450, L100.0100 #### [facility] [address] [place], [address] Neutro Absolute 3.4 x10E3/uL Normal 1.4-7.0 [facility] Comment on above: Performed By: #### L 500.4050, L501.2450, L100.0100 #### [facility] [address] [place], [address] Neutrophils 56 Normal Not Estab. [facility] Comment on above: Performed By: #### L 500.4050, L501.2450, L100.0100 #### [facility] [address] [place], [address] NRBC Count TNP Normal . [facility] Comment on above: Performed By: #### L 500.4050, L501.2450, L100.0100 #### [facility] [address] [place], [address] Platelets (Bld) [#/Vol] 227 10*3/uL Normal 150-450 [facility] Comment on above: Performed By: #### L 500.4050, L501.2450, L100.0100 #### [facility] [address] [place], [address] RBC (Bld) [#/Vol] 4.39 10*6/uL Normal 3.77-5.28 [facility] Comment on above: Performed By: #### L 500.4050, L501.2450, L100.0100 #### [facility] [address] [place], [address] WBC (Bld) [#/Vol] 6.2 10*3/uL Normal 3.4-10.8 [facility] Comment on above: Performed By: #### L 500.4050, L501.2450, L100.0100 #### [facility] [address] [place], [address] Absolute lymphocyte countOrd ered By: Epi Mcdonald on 05-13-2025 Lymphocytes Auto (Unsp spec) [#/Vol] 2.24 10*3/uL 0.83-4.51 [facility] Absolute neutrophil countOrd ered By: Epi Mcdonald on 05-13-2025 Neutrophils (Bld) [#/Vol] 3.5 10*3/uL 2.0-7.7 [facility] Anion gap in Serum or Plasma Ordered By: Epi Mcdonald on 05-13-2025 Anion gap [Moles/Vol] 8 mmol/L 5-15 [facility] Automated lymphocyte count a s percentage of total leukocytesOrdered By: Epi Mcdonald on 05-13-2025 Lymphocytes/100 WBC Auto (Unsp spec) 35.4 % [facility] BUN/creatinine ratioOrdered By: Epi Mcdonald on 05-13-2025 Urea nitrogen/Creatinine [Mass ratio] 10.6 mg/mg - [facility] Basophil percentageOrdered B y: Epi Mcdonald on 05-13-2025 Basophils/100 WBC (Bld) 1.1 % High 0-1 [facility] Bilirubin, totalOrdered By: Epi Mcdonald on 05-13-2025 Bilirubin [Mass/Vol] 0.36 mg/dL 0.00-1.30 [facility] CBC W/Diff, Automatedon 04-18 Absolute Lymph 2.24 X10 3/uL Normal 0.83-4.51 [facility] Comment on above: Performed By: #### L 500.4050, L501.2450, L100.0100 #### [facility] [address] [place], [address] Absolute Neut 3.5 X10 3/uL Normal 2.0-7.7 [facility] Comment on above: Performed By: #### L 500.4050, L501.2450, L100.0100 #### [facility] [address] [place], [address] Basophils/100 WBC (Bld) 1.1 % High 0-1 [facility] Comment on above: Performed By: #### L 500.4050, L501.2450, L100.0100 #### [facility] [address] [place], [address] Eosinophils/100 WBC (Bld) 2.4 % Normal 0-5 [facility] Comment on above: Performed By: #### L 500.4050, L501.2450, L100.0100 #### [facility] [address] [place], [address] Erythrocyte distribution width (RBC) [Ratio] 12.3 % Normal 11.6-14.6 [facility] Comment on above: Performed By: #### L 500.4050, L501.2450, L100.0100 #### [facility] [address] [place], [address] Hematocrit (Bld) [Volume fraction] 43.9 % Normal 37-47 [facility] Comment on above: Performed By: #### L 500.4050, L501.2450, L100.0100 #### [facility] [address] [place], [address] Hemoglobin (Bld) [Mass/Vol] 14.8 g/dL Normal 12.0-15.0 [facility] Comment on above: Performed By: #### L 500.4050, L501.2450, L100.0100 #### [facility] [address] [place], [address] IG% 0.200 Normal 0.0-0.9 [facility] Comment on above: Result Comment: IG% - Immature Granulocytes (promyelocytes, myelocytes and metamyelocytes) > 1% indicates that a LEFT SHIFT is Present. Performed By: #### L 500.4050, L501.2450, L100.0100 #### [facility] [address] [place], [address] Lymphocytes/100 WBC (Bld) 35.4 % Normal 19-41 [facility] Comment on above: Performed By: #### L 500.4050, L501.2450, L100.0100 #### [facility] [address] [place], [address] MCH (RBC) [Entitic mass] 34.2 pg High 27.0-32.0 [facility] Comment on above: Performed By: #### L 500.4050, L501.2450, L100.0100 #### [facility] [address] [place], [address] MCHC (RBC) [Mass/Vol] 33.7 g/dL Normal 32-36 [facility] Comment on above: Performed By: #### L 500.4050, L501.2450, L100.0100 #### [facility] [address] [place], [address] MCV (RBC) [Entitic vol] 101.4 fL High 81-99 [facility] Comment on above: Performed By: #### L 500.4050, L501.2450, L100.0100 #### [facility] [address] [place], [address] Monocytes/100 WBC (Bld) 5.4 % Normal 0-10 [facility] Comment on above: Performed By: #### L 500.4050, L501.2450, L100.0100 #### [facility] [address] [place], [address] Neutrophils/100 WBC (Bld) 55.5 % Normal 47-70 [facility] Comment on above: Performed By: #### L 500.4050, L501.2450, L100.0100 #### [facility] [address] [place], [address] Nucleated RBC (Bld) [#/Vol] 0 10*3/uL Normal 0-5 [facility] Comment on above: Performed By: #### L 500.4050, L501.2450, L100.0100 #### [facility] [address] [place], [address] Platelet mean volume (Bld) [Entitic vol] 11.0 fL Normal 6.2-12.0 [facility] Comment on above: Performed By: #### L 500.4050, L501.2450, L100.0100 #### [facility] [address] [place], [address] Platelets (Bld) [#/Vol] 234 10*3/uL Normal 150-450 [facility] Comment on above: Performed By: #### L 500.4050, L501.2450, L100.0100 #### [facility] [address] [place], [address] RBC (Bld) [#/Vol] 4.33 10*6/uL Normal 4.2-5.4 [facility] Comment on above: Performed By: #### L 500.4050, L501.2450, L100.0100 #### [facility] [address] [place], [address] RDW SD 46.7 fl High 35.1-43.9 [facility] Comment on above: Performed By: #### L 500.4050, L501.2450, L100.0100 #### [facility] [address] [place], [address] WBC (Bld) [#/Vol] 6.3 10*3/uL Normal 4.4-11.0 [facility] Comment on above: Performed By: #### L 500.4050, L501.2450, L100.0100 #### [facility] [address] [place], [address] Carbon dioxide, total [Moles /volume] in Central venous bloodOrdered By: Epi Mcdonald on 05-13-2025 CO2 [Moles/Vol] 27.7 mmol/L 21.0-32.0 [facility] Chloride assayOrdered By: Sue Mcdonald on 05-13-2025 Chloride [Moles/Vol] 105 mmol/L 98-108 [facility] Cholesterolon 05-13-2025 Cholesterol [Mass/Vol] 144 mg/dL Normal <=200 [facility] Comment on above: Result Comment: Chol esterol level, Desirable <200 mg/dL Borderline high cholesterol 200-239 mg/dL High cholesterol >=240 mg/dL Recommendations of the NCEP Adult Treatment Panel for the following risk-cutoff thresholds for the [place] population. Performed By: #### L 500.4050, L501.2450, L100.0100 #### [facility] [address] [place], [address] [facility] ilon 05-13-2025 Albumin [Mass/Vol] 4.3 g/dL Normal 3.5-5.0 [facility] Comment on above: Performed By: #### L 500.4050, L501.2450, L100.0100 #### [facility] [address] [place], [address] Albumin/Globulin [Mass ratio] 1.5 {ratio} Normal 0.9-2.4 [facility] Comment on above: Performed By: #### L 500.4050, L501.2450, L100.0100 #### [facility] [address] [place], [address] ALK PHOS 76 U/L Normal 35-104 [facility] Comment on above: Performed By: #### L 500.4050, L501.2450, L100.0100 #### [facility] [address] [place], [address] ALT [Catalytic activity/Vol] 11 U/L Normal <=34 [facility] Comment on above: Performed By: #### L 500.4050, L501.2450, L100.0100 #### [facility] [address] [place], [address] AST [Catalytic activity/Vol] 22 U/L Normal <=31 [facility] Comment on above: Performed By: #### L 500.4050, L501.2450, L100.0100 #### [facility] [address] [place], [address] Bilirubin [Mass/Vol] 0.36 mg/dL Normal 0.00-1.30 [facility] Comment on above: Performed By: #### L 500.4050, L501.2450, L100.0100 #### [facility] [address] [place], [address] BUN/CRE 10.6 RATIO Normal 10-20 [facility] Comment on above: Performed By: #### L 500.4050, L501.2450, L100.0100 #### [facility] [address] [place], [address] Calcium [Mass/Vol] 9.5 mg/dL Normal 7.6-11.0 [facility] Comment on above: Performed By: #### L 500.4050, L501.2450, L100.0100 #### [facility] [address] [place], [address] Chloride [Moles/Vol] 105 mmol/L Normal 98-108 [facility] Comment on above: Performed By: #### L 500.4050, L501.2450, L100.0100 #### [facility] [address] [place], [address] CO2 [Moles/Vol] 27.7 mmol/L Normal 21.0-32.0 [facility] Comment on above: Performed By: #### L 500.4050, L501.2450, L100.0100 #### [facility] [address] [place], [address] Creatinine [Mass/Vol] 1.08 mg/dL Normal 0.70-1.20 [facility] Comment on above: Performed By: #### L 500.4050, L501.2450, L100.0100 #### [facility] [address] [place], [address] GAP 8 Normal 5-15 [facility] Comment on above: Performed By: #### L 500.4050, L501.2450, L100.0100 #### [facility] [address] [place], [address] GFR/1.73 sq M.predicted among non-blacks MDRD (S/P/Bld) [Vol rate/Area] 60 mL/min/{1.73_m2} Normal >60 [facility] Comment on above: Result Comment: mL/m in/1.73m2 CKD-EPI Creatinine Equation (2020) Performed By: #### L 500.4050, L501.2450, L100.0100 #### [facility] [address] [place], [address] Globulin (S) [Mass/Vol] 2.8 g/dL Normal 2.2-4.2 [facility] Comment on above: Performed By: #### L 500.4050, L501.2450, L100.0100 #### [facility] [address] [place], [address] Glucose [Mass/Vol] 94 mg/dL Normal 70-99 [facility] Comment on above: Performed By: #### L 500.4050, L501.2450, L100.0100 #### [facility] [address] [place], [address] Potassium [Moles/Vol] 4.6 mmol/L Normal 3.3-5.1 [facility] Comment on above: Performed By: #### L 500.4050, L501.2450, L100.0100 #### [facility] [address] [place], [address] Sodium [Moles/Vol] 140 mmol/L Normal 133-145 [facility] Comment on above: Performed By: #### L 500.4050, L501.2450, L100.0100 #### [facility] [address] [place], [address] T PROT 7.2 g/dL Normal 5.9-8.4 [facility] Comment on above: Performed By: #### L 500.4050, L501.2450, L100.0100 #### [facility] [address] [place], [address] Urea nitrogen [Mass/Vol] 11 mg/dL Normal 4-19 [facility] Comment on above: Performed By: #### L 500.4050, L501.2450, L100.0100 #### [facility] [address] [place], [address] Eosinophil percentageOrdered By: Epi Mcdonald on 05-13-2025 Eosinophils/100 WBC (Bld) 2.4 % 0-5 [facility] Erythrocyte distribution wid th ratioOrdered By: Epi Mcdonald on 05-13-2025 Erythrocyte distribution width (RBC) [Ratio] 12.3 % 11.6-14.6 [facility] Erythrocyte distribution wid th standard deviationOrdered By: Epi Mcdonald on 05-13-2025 Erythrocyte distribution width (RBC) [Ratio] 46.7 fl High 35.1-43.9 [facility] Glomerular filtration rate ( GFR) estimation/1.73 sq m using serum, plasma, or whole bOrdered By: Epi Mcdonald on 05-13-2025 GFR/1.73 sq M.predicted among non-blacks MDRD (S/P/Bld) [Vol rate/Area] 60 mL/min/{1.73_m2} >60 [facility] Comment on above: mL/min/1.73m2 CKD-EP I Creatinine Equation (2020) HIP, UNI W/ Pelvis 2-3 Views on 05-13-2025 HIP, UNI W/ Pelvis 2-3 Views [facility] Imaging Services [address] [place], [place] [address] HIP, UNI W/ Pelvis 2-3 Views MR#: [id number] Acct: [id number] Name: TRACY VAZQUEZ Rep #: [id number] : 1970 F 55 From: Levi Barrios PCP: Dr. Fina Iraheta MD Status: REG CLI Study: HIP, UNI W/ Pelvis 2-3 Views Date of Exam: Exam# [id number] Ordering Dr: Gem Graves PROCEDURE: HIP, UNI [...] out a currently occult fracture. Reading Location: [place] [address] CC: PRADEEP Graves; Dr. Fina Iraheta MD Ice Cutter: Signed Normal [facility] Hematocrit Auto (Bld) [Volum e fraction]Ordered By: Epi Mcdonald on 05-13-2025 Hematocrit (Bld) [Volume fraction] 43.9 % 37-47 [facility] Hemoglobin measurementOrdere d By: Epi Mcdonald on 05-13-2025 Hemoglobin (Bld) [Mass/Vol] 14.8 g/dL 12.0-15.0 [facility] Immature granulocytes/100 WB C Auto (Bld)Ordered By: Epi Mcdonald on 05-13-2025 Immature granulocytes/100 WBC (Bld) 0.200 % 0.0-0.9 [facility] Comment on above: IG% - Immature Granu locytes (promyelocytes, myelocytes and metamyelocytes) > 1% indicates that a LEFT SHIFT is Present. Internal Medicine Office Vis daryl 05-13-2025 Internal Medicine Office Visit [facility] Internal Medicine [facility] [place] [address] [place] [address] OFFICE VISIT Date of Service: 05/13/25 MR#: [id number] Acct: [id number] Name: TRACY VAZQUEZ Rep #: [id number] : 1970 Provider: PRADEEP klein Age/Sex: 55/F Location: [facility] Status: Signed Intake Vital Signs 05/02/25 09:59 [...] room air Intake Visit Reasons: Leg pain Ob Gyn Required: No Is patient in pain?: No [...] and marifer lget up to an 02/24 [facility] Medical History (Updated 05/14/25 @ 12:39 [...] apartment current occupational status: employed current occupation: [employer] Smoking Status: Current every day smoker tobacco [...] who pres (more content not included)... Normal [facility] Knee 4 or More Viewson 05-13 Knee 4 or More Views [facility] Imaging Services [address] [place], [place] [id number] Knee 4 or More Views MR#: [id number] Acct: [id number] Name: TRACY VAZQUEZ Rep #: [id number] : 1970 F 55 From: Santiago Julien MD PCP: Dr. Fina Iraheta MD Status: REG CLI Study: Knee 4 or More Views Date of Exam: 05/13/25 Exam# [id number] Ordering Dr: Gem Graves PROCEDURE: KNEE 4 [...] abnormality of the left knee. Reading Location: [id number] CC: STOCK ANALYST-Verenice Graves; Dr. Fina Iraheta MD Ice Cutter: Signed Normal [facility] - Chemistry and C hemistry - challengeOrdered By: Epi Mcdonald on 05-13-2025 AST [Catalytic activity/Vol] 22 U/L <32 [facility] MCV (mean corpuscular volume ) determinationOrdered By: Epi Mcdonald on 05-13-2025 MCV (RBC) [Entitic vol] 101.4 fL High 81-99 [facility] Mean corpuscular hemoglobin (MCH) determinationOrdered By: Epi Mcdonald on 05-13-2025 MCH (RBC) [Entitic mass] 34.2 pg High 27.0-32.0 [facility] Mean corpuscular hemoglobin concentration (MCHC) determinationOrdered By: Epi Mcdonald on 05-13-2025 MCHC (RBC) [Mass/Vol] 33.7 g/dL 32-36 [facility] Mean platelet volume determi nationOrdered By: Epi Mcdonald on 05-13-2025 Platelet mean volume (Bld) [Entitic vol] 11.0 fL 6.2-12.0 [facility] Monocyte percentageOrdered B y: Epi Mcdonald on 05-13-2025 Monocytes/100 WBC (Bld) 5.4 % 0-10 [facility] Neutrophil percentageOrdered By: Epi Mcdonald on 05-13-2025 Neutrophils/100 WBC (Bld) 55.5 % 47-70 [facility] Nucleated red blood cell per centageOrdered By: Epi Mcdonald on 05-13-2025 Nucleated RBC/100 WBC (Bld) [Ratio] 0 % 0-5 [facility] Platelet countOrdered By: Sue Mcdonald on 05-13-2025 Platelets (Bld) [#/Vol] 234 10*3/uL 150-450 [facility] Potassium measurement (mass/ volume)Ordered By: Epi Mcdonald on 05-13-2025 Potassium (Unsp spec) [Mass/Vol] 4.6 mmol/L 3.3-5.1 [facility] RBC Auto (Bld) [#/Vol]Ordere d By: Epi Mcdonald on 05-13-2025 RBC (Bld) [#/Vol] 4.33 10*6/uL 4.2-5.4 [facility] Serum creatinine measurement (mass/volume)Ordered By: Epi Mcdonald on 05-13-2025 Creatinine [Mass/Vol] 1.08 mg/dL 0.70-1.20 [facility] Serum globulin measurementOr dered By: Epi Mcdonald on 05-13-2025 Globulin (S) [Mass/Vol] 2.8 g/dL 2.2-4.2 [facility] Serum glucose measurement (m ass/volume)Ordered By: Epi Mcdonald on 05-13-2025 Glucose [Mass/Vol] 94 mg/dL 70-99 [facility] Serum or plasma alanine vizcaino otransferase (ALT) measurementOrdered By: Epi Mcdonald on 05-13-2025 ALT [Catalytic activity/Vol] 11 U/L <35 [facility] Serum or plasma albumin hortensia urement (mass/volume)Ordered By: Epi Mcdonald on 05-13-2025 Albumin [Mass/Vol] 4.3 g/dL 3.5-5.0 [facility] Serum or plasma albumin/glob ulin mass ratioOrdered By: Epi Mcdonald on 05-13-2025 Albumin/Globulin [Mass ratio] 1.5 {ratio} 0.9-2.4 [facility] Serum or plasma alkaline hubert sphatase measurementOrdered By: Epi Mcdonald on 05-13-2025 ALP [Catalytic activity/Vol] 76 U/L 35-104 [facility] Serum or plasma calcium hortensia urement (mass/volume)Ordered By: Epi Mcdonald on 05-13-2025 Calcium [Mass/Vol] 9.5 mg/dL 7.6-11.0 [facility] Serum or plasma cholesterol measurement (mass/volume)Ordered By: Epi Mcdonald on 05-13-2025 Cholesterol [Mass/Vol] 144 mg/dL <201 [facility] Comment on above: Cholesterol level, D esirable <200 mg/dLBorderline high cholesterol 200-239 mg/dLHigh cholesterol >=240 mg/dLRecommendations of the NCEP Adult Treatment Panel for the following risk-cutoff thresholds for the [place] population. Serum or plasma urea nitroge n measurement (mass/volume)Ordered By: Epi Mcdonald on 05-13-2025 Urea nitrogen [Mass/Vol] 11 mg/dL 4-19 [facility] Sodium levelOrdered By: Chester Mcdonald on 05-13-2025 Sodium [Moles/Vol] 140 mmol/L 133-145 [facility] Total proteinOrdered By: Anthony Mcdonald on 05-13-2025 Protein [Mass/Vol] 7.2 g/dL 5.9-8.4 [facility] Triglycerideson 05-13-2025 Triglyceride [Mass/Vol] 177 mg/dL Normal [facility] Comment on above: Result Comment: The drugs N-Acetylcysteine and Metamizole may falsely depress this assay. Normal range: <150 mg/dL Borderline High: 150-199 mg/dL High: 200-499 mg/dL Very High: >500 mg/dL Performed By: #### L 500.4050, L501.2450, L100.0100 #### [facility] [address] [place], [address] Triglycerides measurementOrd ered By: Epi Mcdonald on 05-13-2025 Triglyceride [Mass/Vol] 177 mg/dL <199 [facility] Comment on above: The drugs N-Acetylcy steine and Metamizole may falsely depress this assay. Normal range: <150 mg/dLBorderline High: 150-199 mg/dLHigh: 200-499 mg/dLVery High: >500 mg/dL White blood cell (WBC) count Ordered By: Epi Mcdonald on 05-13-2025 WBC (Bld) [#/Vol] 6.3 10*3/uL 4.4-11.0 [facility] Surgery Visit Reporton 05-02 Surgery Visit Report [facility] [address] [place], [place] [address] OFFICE VISIT Date of Service: 05/02/25 MR#: [id number] Acct: [id number] Name: TRACY VAZQUEZ Rep #: [id number] : 1970 Provider: Dr. Juvencio browne MD Age/Sex: 55/F Location: [facility] Status: Signed Intake Vital Signs 03/15/25 [...] carbonate)-vitamin D3 15 mcg (600 unit) tablet [facility] Medical History (Updated 05/02/25 @ 09:59 [...] apartment current occupational status: employed current occupation: [employer] Smoking Status: Current every day smoker tobacco [...] arthritis, go (more content not included)... Normal [facility] Abdomen Limitedon 04-18-2025 Abdomen Limited [facility] Imaging Services [address] [place] [address] Abdomen Limited MR#: [id number] Acct: [id number] Name: TRACY VAZQUEZ Rep #: [id number] : 1970 F 55 From: Lawrence Thakur MD PCP: Dr. Fina Iraheta MD Status: REG CLI Study: Abdomen Limited Date of Exam: 04/18/25 Exam# [id number] Ordering Dr: Gem Graves STOCK ANALYSTJennifer PROCEDURE: ABDOMEN LIMITED 04/18/2025 REASON FOR EXAM: [...] to 1.3 cm. No hydronephrosis. Reading Location: [id number] CC: PRADEEP Graves; Dr. Fina Iraheta MD Ice Cutter: Signed Normal [facility] Absolute lymphocyte countOrd ered By: Bozena Sol on 03-15-2025 Lymphocytes Auto (Unsp spec) [#/Vol] 3.13 10*3/uL 0.83-4.51 [facility] Absolute neutrophil countOrd ered By: Bozena Sol on 03-15-2025 Neutrophils (Bld) [#/Vol] 4.8 10*3/uL 2.0-7.7 [facility] Anion gap in Serum or Plasma Ordered By: Bozena Sol on 03-15-2025 Anion gap [Moles/Vol] 12 mmol/L 5-15 [facility] Automated lymphocyte count a s percentage of total leukocytesOrdered By: Bozena Sol on 03-15-2025 Lymphocytes/100 WBC Auto (Unsp spec) 35.4 % 19- [facility] BUN/creatinine ratioOrdered By: Bozena Sol on 03-15-2025 Urea nitrogen/Creatinine [Mass ratio] 9.3 mg/mg Low 10-20 [facility] Basophil percentageOrdered B y: Bozena Sol on 03-15-2025 Basophils/100 WBC (Bld) 0.7 % 0-1 [facility] Bilirubin, totalOrdered By: Bozena Sol on 03-15-2025 Bilirubin [Mass/Vol] 0.68 mg/dL 0.00-1.30 [facility] CBC W/Diff, Automatedon 02-16 Absolute Lymph 3.13 X10 3/uL Normal 0.83-4.51 [facility] Comment on above: Performed By: #### L 500.4050, L501.2450, L100.0100 #### [facility] [address] [place], [address] Absolute Neut 4.8 X10 3/uL Normal 2.0-7.7 [facility] Comment on above: Performed By: #### L 500.4050, L501.2450, L100.0100 #### [facility] [address] [place], [address] Basophils/100 WBC (Bld) 0.7 % Normal 0-1 [facility] Comment on above: Performed By: #### L 500.4050, L501.2450, L100.0100 #### [facility] [address] [place], [address] Eosinophils/100 WBC (Bld) 2.0 % Normal 0-5 [facility] Comment on above: Performed By: #### L 500.4050, L501.2450, L100.0100 #### [facility] [address] [place], [address] Erythrocyte distribution width (RBC) [Ratio] 12.6 % Normal 11.6-14.6 [facility] Comment on above: Performed By: #### L 500.4050, L501.2450, L100.0100 #### [facility] [address] [place], [address] Hematocrit (Bld) [Volume fraction] 44.8 % Normal 37-47 [facility] Comment on above: Performed By: #### L 500.4050, L501.2450, L100.0100 #### [facility] [address] [place], [address] Hemoglobin (Bld) [Mass/Vol] 15.5 g/dL High 12.0-15.0 [facility] Comment on above: Performed By: #### L 500.4050, L501.2450, L100.0100 #### [facility] [address] [place], [address] IG% 0.300 Normal 0.0-0.9 [facility] Comment on above: Result Comment: IG% - Immature Granulocytes (promyelocytes, myelocytes and metamyelocytes) > 1% indicates that a LEFT SHIFT is Present. Performed By: #### L 500.4050, L501.2450, L100.0100 #### [facility] [address] [place], [address] Lymphocytes/100 WBC (Bld) 35.4 % Normal 19-41 [facility] Comment on above: Performed By: #### L 500.4050, L501.2450, L100.0100 #### [facility] [address] [place], [address] MCH (RBC) [Entitic mass] 34.5 pg High 27.0-32.0 [facility] Comment on above: Performed By: #### L 500.4050, L501.2450, L100.0100 #### [facility] [address] [place], [address] MCHC (RBC) [Mass/Vol] 34.6 g/dL Normal 32-36 [facility] Comment on above: Performed By: #### L 500.4050, L501.2450, L100.0100 #### [facility] [address] [place], [address] MCV (RBC) [Entitic vol] 99.8 fL High 81-99 [facility] Comment on above: Performed By: #### L 500.4050, L501.2450, L100.0100 #### [facility] [address] [place], [address] Monocytes/100 WBC (Bld) 6.9 % Normal 0-10 [facility] Comment on above: Performed By: #### L 500.4050, L501.2450, L100.0100 #### [facility] [address] [place], [address] Neutrophils/100 WBC (Bld) 54.7 % Normal 47-70 [facility] Comment on above: Performed By: #### L 500.4050, L501.2450, L100.0100 #### [facility] [address] [place], [address] Nucleated RBC (Bld) [#/Vol] 0 10*3/uL Normal 0-5 [facility] Comment on above: Performed By: #### L 500.4050, L501.2450, L100.0100 #### [facility] [address] [place], [address] Platelet mean volume (Bld) [Entitic vol] 10.7 fL Normal 6.2-12.0 [facility] Comment on above: Performed By: #### L 500.4050, L501.2450, L100.0100 #### [facility] [address] [place], [address] Platelets (Bld) [#/Vol] 243 10*3/uL Normal 150-450 [facility] Comment on above: Performed By: #### L 500.4050, L501.2450, L100.0100 #### [facility] [address] [place], [address] RBC (Bld) [#/Vol] 4.49 10*6/uL Normal 4.2-5.4 [facility] Comment on above: Performed By: #### L 500.4050, L501.2450, L100.0100 #### [facility] [address] [place], [address] RDW SD 46.5 fl High 35.1-43.9 [facility] Comment on above: Performed By: #### L 500.4050, L501.2450, L100.0100 #### [facility] [address] [place], [address] WBC (Bld) [#/Vol] 8.8 10*3/uL Normal 4.4-11.0 [facility] Comment on above: Performed By: #### L 500.4050, L501.2450, L100.0100 #### [facility] [place], [address] CNOVon 03-15-2025 CNOV Office Visit ([facility]) ----- TRACY VAZQUEZ ([id number]) 1970 F Date Time Provider Department 03/15/25 [...] - Fully Assessed Reason for Visit: Itching [02065] Cmt: feet Gas [49] Nausea [70] Primary [...] 02/28/2024 Level of Service: OFFICE/OUTPATIENT ESTABLISHED [facility] 40 MIN [80021] Encounter Status:Closed by RUBINA CAMPOS on 03/15/25 Normal [facility] Carbon dioxide, total [Moles /volume] in Central venous bloodOrdered By: Bozena Sol on 03-15-2025 CO2 [Moles/Vol] 28.3 mmol/L 21.0-32.0 [facility] Chloride assayOrdered By: Chen Sol on 03-15-2025 Chloride [Moles/Vol] 101 mmol/L 98-108 [facility] Comprehensive Metabolic Prof ilon 03-15-2025 Albumin [Mass/Vol] 4.5 g/dL Normal 3.5-5.0 [facility] Comment on above: Performed By: #### L 500.4050, L501.2450, L100.0100 #### [facility] [address] [place], [address] Albumin/Globulin [Mass ratio] 1.6 {ratio} Normal 0.9-2.4 [facility] Comment on above: Performed By: #### L 500.4050, L501.2450, L100.0100 #### [facility] [address] [place], [address] ALK PHOS 80 U/L Normal 35-104 [facility] Comment on above: Performed By: #### L 500.4050, L501.2450, L100.0100 #### [facility] [address] [place], [address] ALT [Catalytic activity/Vol] 13 U/L Normal <=34 [facility] Comment on above: Performed By: #### L 500.4050, L501.2450, L100.0100 #### [facility] [address] [place], [address] AST [Catalytic activity/Vol] 17 U/L Normal <=31 [facility] Comment on above: Performed By: #### L 500.4050, L501.2450, L100.0100 #### [facility] [address] [place], [address] Bilirubin [Mass/Vol] 0.68 mg/dL Normal 0.00-1.30 [facility] Comment on above: Performed By: #### L 500.4050, L501.2450, L100.0100 #### [facility] [address] [place], [address] BUN/CRE 9.3 RATIO Low 10-20 [facility] Comment on above: Performed By: #### L 500.4050, L501.2450, L100.0100 #### [facility] [address] [place], [address] Calcium [Mass/Vol] 9.7 mg/dL Normal 7.6-11.0 [facility] Comment on above: Performed By: #### L 500.4050, L501.2450, L100.0100 #### [facility] [address] [place], [address] Chloride [Moles/Vol] 101 mmol/L Normal 98-108 [facility] Comment on above: Performed By: #### L 500.4050, L501.2450, L100.0100 #### [facility] [address] [place], [address] CO2 [Moles/Vol] 28.3 mmol/L Normal 21.0-32.0 [facility] Comment on above: Performed By: #### L 500.4050, L501.2450, L100.0100 #### [facility] [address] [place], [address] Creatinine [Mass/Vol] 1.01 mg/dL Normal 0.70-1.20 [facility] Comment on above: Performed By: #### L 500.4050, L501.2450, L100.0100 #### [facility] [address] [place], [address] ECRCL 48.60 ml/min Low 50-250 [facility] Comment on above: Performed By: #### L 500.4050, L501.2450, L100.0100 #### [facility] [address] [place], [address] GAP 12 Normal 5-15 [facility] Comment on above: Performed By: #### L 500.4050, L501.2450, L100.0100 #### [facility] [address] [place], [address] GFR/1.73 sq M.predicted among non-blacks MDRD (S/P/Bld) [Vol rate/Area] 65 mL/min/{1.73_m2} Normal >60 [facility] Comment on above: Result Comment: mL/m in/1.73m2 CKD-EPI Creatinine Equation (2020) Performed By: #### L 500.4050, L501.2450, L100.0100 #### [facility] [address] [place], [address] Globulin (S) [Mass/Vol] 2.9 g/dL Normal 2.2-4.2 [facility] Comment on above: Performed By: #### L 500.4050, L501.2450, L100.0100 #### [facility] [address] [place], [address] Glucose [Mass/Vol] 75 mg/dL Normal 70-99 [facility] Comment on above: Performed By: #### L 500.4050, L501.2450, L100.0100 #### [facility] [address] [place], [address] Potassium [Moles/Vol] 3.7 mmol/L Normal 3.3-5.1 [facility] Comment on above: Performed By: #### L 500.4050, L501.2450, L100.0100 #### [facility] [address] [place], [address] Sodium [Moles/Vol] 141 mmol/L Normal 133-145 [facility] Comment on above: Performed By: #### L 500.4050, L501.2450, L100.0100 #### [facility] [address] [place], [address] T PROT 7.4 g/dL Normal 5.9-8.4 [facility] Comment on above: Performed By: #### L 500.4050, L501.2450, L100.0100 #### [facility] [address] [place], [address] Urea nitrogen [Mass/Vol] 9 mg/dL Normal 4-19 [facility] Comment on above: Performed By: #### L 500.4050, L501.2450, L100.0100 #### [facility] [address] [place], [address] Emergency Department Summary on 03-15-2025 Emergency Department Summary [facility] Medical Records Department [address] [place] [address] Emergency Department Summary 03/15/25 MR#: [id number] Acct: [id number] Name: TRACY VAZQUEZ Rep #: [id number] : 1970 55 From: Herman Faust MD [...] or liver and recommended she come in. [facility] Medical History Muscle cramps Rhinitis Breast mass [...] apartment current occupational status: employed current occupation: [employer] Smoking Status: Current every day smoker tobacco [...] CONST: Patie (more content not included)... Normal [facility] Eosinophil percentageOrdered By: Bozena Sol on 03-15-2025 Eosinophils/100 WBC (Bld) 2.0 % 0-5 [facility] Erythrocyte distribution wid th ratioOrdered By: Bozena Sol on 03-15-2025 Erythrocyte distribution width (RBC) [Ratio] 12.6 % 11.6-14.6 [facility] Erythrocyte distribution wid th standard deviationOrdered By: Bozena Sol on 03-15-2025 Erythrocyte distribution width (RBC) [Ratio] 46.5 fl High 35.1-43.9 [facility] Glomerular filtration rate ( GFR) estimation/1.73 sq m using serum, plasma, or whole bOrdered By: Bozena Sol on 03-15-2025 GFR/1.73 sq M.predicted among non-blacks MDRD (S/P/Bld) [Vol rate/Area] 65 mL/min/{1.73_m2} >60 [facility] Comment on above: mL/min/1.73m2 CKD-EP I Creatinine Equation (2020) Hematocrit Auto (Bld) [Volum e fraction]Ordered By: Bozena Sol on 03-15-2025 Hematocrit (Bld) [Volume fraction] 44.8 % 37-47 [facility] Hemoglobin measurementOrdere d By: Bozena oSl on 03-15-2025 Hemoglobin (Bld) [Mass/Vol] 15.5 g/dL High 12.0-15.0 [facility] Immature granulocytes/100 WB C Auto (Bld)Ordered By: Bozena Sol on 03-15-2025 Immature granulocytes/100 WBC (Bld) 0.300 % 0.0-0.9 [facility] Comment on above: IG% - Immature Granu locytes (promyelocytes, myelocytes and metamyelocytes) > 1% indicates that a LEFT SHIFT is Present. Laboratory - Chemistry and C hemistry - challengeOrdered By: Bozena Sol on 03-15-2025 AST [Catalytic activity/Vol] 17 U/L <32 [facility] Lipaseon 03-15-2025 Lipase [Catalytic activity/Vol] 19 U/L Normal 13-75 [facility] Comment on above: Result Comment: Tye ku note: LIPASE revised reference range effective 22. New Lipase methodology. Expected to produce lower values than the previous assay method. NEW Reference Range: 13 - 75 U/L Performed By: #### L 500.4050, L501.2450, L100.0100 #### [facility] [place], [address] Lipase measurementOrdered By : Bozena Sol on 03-15-2025 Lipase [Catalytic activity/Vol] 19 U/L 13-75 [facility] Comment on above: Please note:LIPASE r evised reference range effective 22. New Lipase methodology. Expected to produce lower values than the previous assay method. NEW Reference Range: 13 - 75 U/L MCV (mean corpuscular volume ) determinationOrdered By: Bozena Sol on 03-15-2025 MCV (RBC) [Entitic vol] 99.8 fL High 81-99 [facility] Mean corpuscular hemoglobin (MCH) determinationOrdered By: Bozena Sol on 03-15-2025 MCH (RBC) [Entitic mass] 34.5 pg High 27.0-32.0 [facility] Mean corpuscular hemoglobin concentration (MCHC) determinationOrdered By: Bozena Sol on 03-15-2025 MCHC (RBC) [Mass/Vol] 34.6 g/dL 32-36 [facility] Mean platelet volume determi nationOrdered By: Bozena Sol on 03-15-2025 Platelet mean volume (Bld) [Entitic vol] 10.7 fL 6.2-12.0 [facility] Monocyte percentageOrdered B y: Bozena Sol on 03-15-2025 Monocytes/100 WBC (Bld) 6.9 % 0-10 [facility] Neutrophil percentageOrdered By: Bozena Sol on 03-15-2025 Neutrophils/100 WBC (Bld) 54.7 % 47-70 [facility] Nucleated red blood cell per centageOrdered By: Bozena Sol on 03-15-2025 Nucleated RBC/100 WBC (Bld) [Ratio] 0 % 0-5 [facility] Platelet countOrdered By: Chen Sol on 03-15-2025 Platelets (Bld) [#/Vol] 243 10*3/uL 150-450 [facility] Potassium measurement (mass/ volume)Ordered By: Bozena Sol on 03-15-2025 Potassium (Unsp spec) [Mass/Vol] 3.7 mmol/L 3.3-5.1 [facility] RBC Auto (Bld) [#/Vol]Ordere d By: Bozena Sol on 03-15-2025 RBC (Bld) [#/Vol] 4.49 10*6/uL 4.2-5.4 [facility] Serum creatinine measurement (mass/volume)Ordered By: Bozena Sol on 03-15-2025 Creatinine [Mass/Vol] 1.01 mg/dL 0.70-1.20 [facility] Serum globulin measurementOr dered By: Bozena Sol on 03-15-2025 Globulin (S) [Mass/Vol] 2.9 g/dL 2.2-4.2 [facility] Serum glucose measurement (m ass/volume)Ordered By: Bozena Sol on 03-15-2025 Glucose [Mass/Vol] 75 mg/dL 70-99 [facility] Serum or plasma alanine vizcaino otransferase (ALT) measurementOrdered By: Bozena Sol on 03-15-2025 ALT [Catalytic activity/Vol] 13 U/L <35 [facility] Serum or plasma albumin hortensia urement (mass/volume)Ordered By: Bozena Sol on 03-15-2025 Albumin [Mass/Vol] 4.5 g/dL 3.5-5.0 [facility] Serum or plasma albumin/glob ulin mass ratioOrdered By: Bozena oSl on 03-15-2025 Albumin/Globulin [Mass ratio] 1.6 {ratio} 0.9-2.4 [facility] Serum or plasma alkaline hubert sphatase measurementOrdered By: Bozena Sol on 03-15-2025 ALP [Catalytic activity/Vol] 80 U/L 35-104 [facility] Serum or plasma calcium hortensia urement (mass/volume)Ordered By: Bozena Sol on 03-15-2025 Calcium [Mass/Vol] 9.7 mg/dL 7.6-11.0 [facility] Serum or plasma urea nitroge n measurement (mass/volume)Ordered By: Bozena Sol on 03-15-2025 Urea nitrogen [Mass/Vol] 9 mg/dL 4-19 [facility] Sodium levelOrdered By: Bozena Sol on 03-15-2025 Sodium [Moles/Vol] 141 mmol/L 133-145 [facility] Total proteinOrdered By: Tori Sol on 03-15-2025 Protein [Mass/Vol] 7.4 g/dL 5.9-8.4 [facility] White blood cell (WBC) count Ordered By: Bozena Sol on 03-15-2025 WBC (Bld) [#/Vol] 8.8 10*3/uL 4.4-11.0 [facility] Internal Medicine Office Vis daryl 03-11-2025 Internal Medicine Office Visit [facility] [address] [place] [address] [address] [place], [place] [id number] OFFICE VISIT Date of Service: 03/11/25 MR#: [id number] Acct: [id number] Name: TRACY VAZQUEZ Rep #: [id number] : 1970 Provider: PRADEEP klein Age/Sex: 55/F Location: [facility] Status: Signed Intake Vital Signs 03/08/25 08:41 [...] Up ([facility]) Chief Complaint: 6 M FU Ob Gyn Required: No Is patient in pain?: No [...] ears looked at as they feel clogged. [facility] Medical History Muscle cramps Rhinitis Breast [...] apartment current occupational status: employed current occupation: [employer] Smoking Status: Current every day smoker tobacco [...] Jordan Constituti (more content not included)... Normal [facility] Abdomen/Pelvis W IV Cont ONL Yon 03-08-2025 Abdomen/Pelvis W IV Cont ONLY [facility] Imaging Services [address] [place], [place] [address] Abdomen/Pelvis W IV Cont ONLY MR#: [id number] Acct: [id number] Name: TRACY VAZQUEZ Rep #: [id number] : 1970 F 55 From: Sarkis Castañeda MD PCP: Dr. Fina Iraheta MD Status: REG ER Study: Abdomen/Pelvis W IV Cont ONLY Date of Exam: Exam# [id number] Ordering Dr: Saturnino Mix DO PROCEDURE: ABDOMEN/PELVIS [...] required. 4. No acute abnormality. Reading Location: [id number] CC: Dr. Fina Iraheta MD; Dr. Saturnino Mix DO Ice Cutter: Signed Normal [facility] Absolute lymphocyte countOrd ered By: Saturnino Mix on 03-08-2025 Lymphocytes Auto (Unsp spec) [#/Vol] 1.78 10*3/uL 0.83-4.51 [facility] Absolute neutrophil countOrd ered By: Saturnino Mix on 03-08-2025 Neutrophils (Bld) [#/Vol] 3.5 10*3/uL 2.0-7.7 [facility] Anion gap in Serum or Plasma Ordered By: Saturnino Mix on 03-08-2025 Anion gap [Moles/Vol] 11 mmol/L 5-15 [facility] Automated lymphocyte count a s percentage of total leukocytesOrdered By: Saturnino Mix on 03-08-2025 Lymphocytes/100 WBC Auto (Unsp spec) 30.7 % 19-41 [facility] BUN/creatinine ratioOrdered By: Saturnino Mix on 03-08-2025 Urea nitrogen/Creatinine [Mass ratio] 9.2 mg/mg Low 10-20 [facility] Basophil percentageOrdered B y: Saturnino Mix on 03-08-2025 Basophils/100 WBC (Bld) 0.7 % 0-1 [facility] Bilirubin Test strip Ql (U)O rdered By: Saturnino Mix on 03-08-2025 Bilirubin Ql (U) Negative Negative [facility] Bilirubin, totalOrdered By: Saturnino Mix on 03-08-2025 Bilirubin [Mass/Vol] 0.58 mg/dL 0.00-1.30 [facility] CBC W/Diff, Automatedon 02-16 Absolute Lymph 1.78 X10 3/uL Normal 0.83-4.51 [facility] Comment on above: Performed By: #### L 100.0100, L501.2450, L500.4050 #### [facility] [address] [place], [address] Absolute Neut 3.5 X10 3/uL Normal 2.0-7.7 [facility] Comment on above: Performed By: #### L 100.0100, L501.2450, L500.4050 #### [facility] [address] [place], [address] Basophils/100 WBC (Bld) 0.7 % Normal 0-1 [facility] Comment on above: Performed By: #### L 100.0100, L501.2450, L500.4050 #### [facility] [address] [place], [address] Eosinophils/100 WBC (Bld) 2.1 % Normal 0-5 [facility] Comment on above: Performed By: #### L 100.0100, L501.2450, L500.4050 #### [facility] [address] [place], [address] Erythrocyte distribution width (RBC) [Ratio] 12.4 % Normal 11.6-14.6 [facility] Comment on above: Performed By: #### L 100.0100, L501.2450, L500.4050 #### [facility] [address] [place], [address] Hematocrit (Bld) [Volume fraction] 39.9 % Normal 37-47 [facility] Comment on above: Performed By: #### L 100.0100, L501.2450, L500.4050 #### [facility] [address] [place], [address] Hemoglobin (Bld) [Mass/Vol] 13.7 g/dL Normal 12.0-15.0 [facility] Comment on above: Performed By: #### L 100.0100, L501.2450, L500.4050 #### [facility] [address] [place], [address] IG% 0.200 Normal 0.0-0.9 [facility] Comment on above: Result Comment: IG% - Immature Granulocytes (promyelocytes, myelocytes and metamyelocytes) > 1% indicates that a LEFT SHIFT is Present. Performed By: #### L 100.0100, L501.2450, L500.4050 #### [facility] [address] [place], [address] Lymphocytes/100 WBC (Bld) 30.7 % Normal 19-41 [facility] Comment on above: Performed By: #### L 100.0100, L501.2450, L500.4050 #### [facility] [address] [place], [address] MCH (RBC) [Entitic mass] 34.3 pg High 27.0-32.0 [facility] Comment on above: Performed By: #### L 100.0100, L501.2450, L500.4050 #### [facility] [address] [place], [address] MCHC (RBC) [Mass/Vol] 34.3 g/dL Normal 32-36 [facility] Comment on above: Performed By: #### L 100.0100, L501.2450, L500.4050 #### [facility] [address] [place], [address] MCV (RBC) [Entitic vol] 99.8 fL High 81-99 [facility] Comment on above: Performed By: #### L 100.0100, L501.2450, L500.4050 #### [facility] [address] [place], [address] Monocytes/100 WBC (Bld) 6.7 % Normal 0-10 [facility] Comment on above: Performed By: #### L 100.0100, L501.2450, L500.4050 #### [facility] [address] [place], [address] Neutrophils/100 WBC (Bld) 59.6 % Normal 47-70 [facility] Comment on above: Performed By: #### L 100.0100, L501.2450, L500.4050 #### [facility] [address] [place], [address] Nucleated RBC (Bld) [#/Vol] 0 10*3/uL Normal 0-5 [facility] Comment on above: Performed By: #### L 100.0100, L501.2450, L500.4050 #### [facility] [address] [place], [address] Platelet mean volume (Bld) [Entitic vol] 10.7 fL Normal 6.2-12.0 [facility] Comment on above: Performed By: #### L 100.0100, L501.2450, L500.4050 #### [facility] [address] [place], [address] Platelets (Bld) [#/Vol] 198 10*3/uL Normal 150-450 [facility] Comment on above: Performed By: #### L 100.0100, L501.2450, L500.4050 #### [facility] [address] [place], [address] RBC (Bld) [#/Vol] 4.00 10*6/uL Low 4.2-5.4 [facility] Comment on above: Performed By: #### L 100.0100, L501.2450, L500.4050 #### [facility] [address] [place], [address] RDW SD 45.2 fl High 35.1-43.9 [facility] Comment on above: Performed By: #### L 100.0100, L501.2450, L500.4050 #### [facility] [address] [place], [address] WBC (Bld) [#/Vol] 5.8 10*3/uL Normal 4.4-11.0 [facility] Comment on above: Performed By: #### L 100.0100, L501.2450, L500.4050 #### [facility] [address] [place], [address] CNOVon 03-08-2025 CNOV Office Visit (WOLINDA) ----- TRACY VAZQUEZ ([id number]) 1970 F Date Time Provider Department 03/08/25 8:15 AM GINNY JAIMES During your visit today, we recorded the following information about you: Temperature Pulse Respiration Blood pressure 96.7 degrees 63/minute 22/minute 121/87 Weight 56 kg Ginny Jaimes APRN.TRANSPORTATION ENGINEERING TECHNICIAN 03/08/2025 8:43 AM Signed [facility] Subjective Tracy Vazquez is a 55 year old female. Patient presents with: Abdominal Pain: Nausea, Gerd, headache, vomiting, cough, RLQ abd pain x 2 days HPI Abdominal Pain: - Onset: Recent. - Location: RLQ. - Severity: Rates pain as 6/10, but is now keeping her up at night worsening. - Denies seeing a alum plant operator. Vomiting: - Vomiting mucus; describes it as thick and like gum. - Taking Mucinex. Headaches: - Took Tylenol 2.5 hours ago. GERD: - Previously managed with Pepcid AC; discontinued to improve B12 absorption. - Takes B12 tablets daily. - Describes typical GERD symptoms as chest and throat discomfort, not abdominal pain. Emphysema: - Managed by Dr. Metcalf, transportation attendant; next appointment on the . - Reports [...] clear HIV (human immunodeficiency virus infection) ([facility]) 2009 Dr. Mcdonald-ID Left posterior fascicular block [...] perform imaging (more content not included)... [facility] ----- TRACY VAZQUEZ ([id number]) 1970 F Date Time Provider Department 03/08/25 AYAD METCALF During your visit today, we recorded the following information about you: Kelly Durant 03/08/2025 2:21 PM Signed Patient calling in stating Ayad was going to call her in a prescription for Emphysema today to [facility]. Patient states she was over [facility] our [facility] and spoke to a nurse. Please [...] to reassess symptoms following treatment. Ayad Metcalf APRN.TRANSPORTATION ENGINEERING TECHNICIAN Allergies As of Date: 03/08/2025 Noted Allergy [...] Status:Closed by KELLY DURANT on 03/29/25 Normal [facility] Carbon dioxide, total [Moles /volume] in Central venous bloodOrdered By: Saturnino Mix on 03-08-2025 CO2 [Moles/Vol] 24.5 mmol/L 21.0-32.0 [facility] Chloride assayOrdered By: Roberto Mix on 03-08-2025 Chloride [Moles/Vol] 106 mmol/L 98-108 [facility] Comprehensive Metabolic Prof ilon 03-08-2025 Albumin [Mass/Vol] 4.2 g/dL Normal 3.5-5.0 [facility] Comment on above: Performed By: #### L 100.0100, L501.2450, L500.4050 #### [facility] [address] [place], [address] Albumin/Globulin [Mass ratio] 1.7 {ratio} Normal 0.9-2.4 [facility] Comment on above: Performed By: #### L 100.0100, L501.2450, L500.4050 #### [facility] [address] [place], [address] ALK PHOS 74 U/L Normal 35-104 [facility] Comment on above: Performed By: #### L 100.0100, L501.2450, L500.4050 #### [facility] [address] [place], [address] ALT [Catalytic activity/Vol] 7 U/L Normal <=34 [facility] Comment on above: Performed By: #### L 100.0100, L501.2450, L500.4050 #### [facility] [address] [place], [address] AST [Catalytic activity/Vol] 19 U/L Normal <=31 [facility] Comment on above: Performed By: #### L 100.0100, L501.2450, L500.4050 #### [facility] [address] [place], [address] Bilirubin [Mass/Vol] 0.58 mg/dL Normal 0.00-1.30 [facility] Comment on above: Performed By: #### L 100.0100, L501.2450, L500.4050 #### [facility] [address] [place], [address] BUN/CRE 9.2 RATIO Low 10-20 [facility] Comment on above: Performed By: #### L 100.0100, L501.2450, L500.4050 #### [facility] [address] [place], [address] Calcium [Mass/Vol] 8.9 mg/dL Normal 7.6-11.0 [facility] Comment on above: Performed By: #### L 100.0100, L501.2450, L500.4050 #### [facility] [address] [place], [address] Chloride [Moles/Vol] 106 mmol/L Normal 98-108 [facility] Comment on above: Performed By: #### L 100.0100, L501.2450, L500.4050 #### [facility] [address] [place], [address] CO2 [Moles/Vol] 24.5 mmol/L Normal 21.0-32.0 [facility] Comment on above: Performed By: #### L 100.0100, L501.2450, L500.4050 #### [facility] [address] [place], [address] Creatinine [Mass/Vol] 0.94 mg/dL Normal 0.70-1.20 [facility] Comment on above: Performed By: #### L 100.0100, L501.2450, L500.4050 #### [facility] [address] [place], [address] ECRCL 52.22 ml/min Normal 50-250 [facility] Comment on above: Performed By: #### L 100.0100, L501.2450, L500.4050 #### [facility] [address] [place], [address] GAP 11 Normal 5-15 [facility] Comment on above: Performed By: #### L 100.0100, L501.2450, L500.4050 #### [facility] [address] [place], [address] GFR/1.73 sq M.predicted among non-blacks MDRD (S/P/Bld) [Vol rate/Area] 71 mL/min/{1.73_m2} Normal >60 [facility] Comment on above: Result Comment: mL/m in/1.73m2 CKD-EPI Creatinine Equation (2020) Performed By: #### L 100.0100, L501.2450, L500.4050 #### [facility] [address] [place], [address] Globulin (S) [Mass/Vol] 2.4 g/dL Normal 2.2-4.2 [facility] Comment on above: Performed By: #### L 100.0100, L501.2450, L500.4050 #### [facility] [address] [place], [address] Glucose [Mass/Vol] 94 mg/dL Normal 70-99 [facility] Comment on above: Performed By: #### L 100.0100, L501.2450, L500.4050 #### [facility] [address] [place], [address] Potassium [Moles/Vol] 3.8 mmol/L Normal 3.3-5.1 [facility] Comment on above: Performed By: #### L 100.0100, L501.2450, L500.4050 #### [facility] [address] [place], [address] Sodium [Moles/Vol] 141 mmol/L Normal 133-145 [facility] Comment on above: Performed By: #### L 100.0100, L501.2450, L500.4050 #### [facility] [address] [place], [address] T PROT 6.6 g/dL Normal 5.9-8.4 [facility] Comment on above: Performed By: #### L 100.0100, L501.2450, L500.4050 #### [facility] [address] [place], [address] Urea nitrogen [Mass/Vol] 9 mg/dL Normal 4-19 [facility] Comment on above: Performed By: #### L 100.0100, L501.2450, L500.4050 #### [facility] [address] [place], [address] Emergency Department Summary on 03-08-2025 Emergency Department Summary [facility] Medical Records Department [address] [place] [address] Emergency Department Summary 03/08/25 MR#: [id number] Acct: [id number] Name: TRACY VAZQUEZ Rep #: [id number] : 1970 55 From: Saturnino Mix DO [...] has a history of COPD and HIV. [facility] Medical History Muscle cramps Rhinitis Breast mass [...] apartment current occupational status: employed current occupation: [employer] Smoking Status: Current every day smoker tobacco [...] Denies sore (more content not included)... Normal [facility] Eosinophil percentageOrdered By: Saturnino Mix on 03-08-2025 Eosinophils/100 WBC (Bld) 2.1 % 0-5 [facility] Erythrocyte distribution wid th ratioOrdered By: Saturnino Mix on 03-08-2025 Erythrocyte distribution width (RBC) [Ratio] 12.4 % 11.6-14.6 [facility] Erythrocyte distribution wid th standard deviationOrdered By: Saturnino Mix on 03-08-2025 Erythrocyte distribution width (RBC) [Ratio] 45.2 fl High 35.1-43.9 [facility] Glomerular filtration rate ( GFR) estimation/1.73 sq m using serum, plasma, or whole bOrdered By: Saturnino Mix on 03-08-2025 GFR/1.73 sq M.predicted among non-blacks MDRD (S/P/Bld) [Vol rate/Area] 71 mL/min/{1.73_m2} >60 [facility] Comment on above: mL/min/1.73m2 CKD-EP I Creatinine Equation (2020) Hematocrit Auto (Bld) [Volum e fraction]Ordered By: Saturnino Mix on 03-08-2025 Hematocrit (Bld) [Volume fraction] 39.9 % 37-47 [facility] Hemoglobin measurementOrdere d By: Saturnino Mix on 03-08-2025 Hemoglobin (Bld) [Mass/Vol] 13.7 g/dL 12.0-15.0 [facility] Immature granulocytes/100 WB C Auto (Bld)Ordered By: Saturnino Mix on 03-08-2025 Immature granulocytes/100 WBC (Bld) 0.200 % 0.0-0.9 [facility] Comment on above: IG% - Immature Granu locytes (promyelocytes, myelocytes and metamyelocytes) > 1% indicates that a LEFT SHIFT is Present. Ketones Test strip Ql (U)Ord ered By: Saturnino Mix on 03-08-2025 Ketones Ql (U) Negative Negative [facility] - Chemistry and C hemistry - challengeOrdered By: Saturnino Mix on 03-08-2025 AST [Catalytic activity/Vol] 19 U/L <32 [facility] Lipaseon 03-08-2025 Lipase [Catalytic activity/Vol] 22 U/L Normal 13-75 [facility] Comment on above: Result Comment: Tye ku note: LIPASE revised reference range effective 22. New Lipase methodology. Expected to produce lower values than the previous assay method. NEW Reference Range: 13 - 75 U/L Performed By: #### L 100.0100, L501.2450, L500.4050 #### [facility] [address] [place], [address] Lipase measurementOrdered By : Saturnino Mix on 03-08-2025 Lipase [Catalytic activity/Vol] 22 U/L 13-75 [facility] Comment on above: Please note:LIPASE r evised reference range effective 22. New Lipase methodology. Expected to produce lower values than the previous assay method. NEW Reference Range: 13 - 75 U/L MCV (mean corpuscular volume ) determinationOrdered By: Saturnino Mix on 03-08-2025 MCV (RBC) [Entitic vol] 99.8 fL High 81-99 [facility] Mean corpuscular hemoglobin (MCH) determinationOrdered By: Saturnino Mix on 03-08-2025 MCH (RBC) [Entitic mass] 34.3 pg High 27.0-32.0 [facility] Mean corpuscular hemoglobin concentration (MCHC) determinationOrdered By: Saturnino Mix on 03-08-2025 MCHC (RBC) [Mass/Vol] 34.3 g/dL 32-36 [facility] Mean platelet volume determi nationOrdered By: Saturnino Mix on 03-08-2025 Platelet mean volume (Bld) [Entitic vol] 10.7 fL 6.2-12.0 [facility] Microscopic analysis of urin e for red blood cells (RBC)Ordered By: Saturnino Mix on 03-08-2025 Microscopic analysis of urine for red blood cells (RBC) 0 SEEN /hpf 0-5 [facility] Monocyte percentageOrdered B y: Saturnino Mix on 03-08-2025 Monocytes/100 WBC (Bld) 6.7 % 0-10 [facility] Mucus LM Ql (Urine sed)Order ed By: Saturnino Mix on 03-08-2025 Mucus Ql (Urine sed) 0 SEEN /hpf [facility] Neutrophil percentageOrdered By: Saturnino Mix on 03-08-2025 Neutrophils/100 WBC (Bld) 59.6 % 47-70 [facility] Nitrite Test strip Ql (U)Ord ered By: Saturnino Mix on 03-08-2025 Nitrite Ql (U) Negative Negative [facility] Nucleated red blood cell per centageOrdered By: Saturnino Mix on 03-08-2025 Nucleated RBC/100 WBC (Bld) [Ratio] 0 % 0-5 [facility] Platelet countOrdered By: Roberto Mix on 03-08-2025 Platelets (Bld) [#/Vol] 198 10*3/uL 150-450 [facility] Potassium measurement (mass/ volume)Ordered By: Saturnino Mix on 03-08-2025 Potassium (Unsp spec) [Mass/Vol] 3.8 mmol/L 3.3-5.1 [facility] Protein Test strip Ql (U)Ord ered By: Saturnino Mix on 03-08-2025 Protein Ql (U) Negative Negative [facility] RBC Auto (Bld) [#/Vol]Ordere d By: Saturnino Mix on 03-08-2025 RBC (Bld) [#/Vol] 4.00 10*6/uL Low 4.2-5.4 [facility] Serum creatinine measurement (mass/volume)Ordered By: Saturnino Mix on 03-08-2025 Creatinine [Mass/Vol] 0.94 mg/dL 0.70-1.20 [facility] Serum globulin measurementOr dered By: Saturnino Mix on 03-08-2025 Globulin (S) [Mass/Vol] 2.4 g/dL 2.2-4.2 [facility] Serum glucose measurement (m ass/volume)Ordered By: Saturnino Mix on 03-08-2025 Glucose [Mass/Vol] 94 mg/dL 70-99 [facility] Serum or plasma alanine vizcaino otransferase (ALT) measurementOrdered By: Saturnino Mix on 03-08-2025 ALT [Catalytic activity/Vol] 7 U/L <35 [facility] Serum or plasma albumin hortensia urement (mass/volume)Ordered By: Saturnino Mix on 03-08-2025 Albumin [Mass/Vol] 4.2 g/dL 3.5-5.0 [facility] Serum or plasma albumin/glob ulin mass ratioOrdered By: Saturnino Mix on 03-08-2025 Albumin/Globulin [Mass ratio] 1.7 {ratio} 0.9-2.4 [facility] Serum or plasma alkaline hubert sphatase measurementOrdered By: Saturnino Mix on 03-08-2025 ALP [Catalytic activity/Vol] 74 U/L 35-104 [facility] Serum or plasma calcium hortensia urement (mass/volume)Ordered By: Saturnino Mix on 03-08-2025 Calcium [Mass/Vol] 8.9 mg/dL 7.6-11.0 [facility] Serum or plasma urea nitroge n measurement (mass/volume)Ordered By: Saturnino Mix on 03-08-2025 Urea nitrogen [Mass/Vol] 9 mg/dL 4-19 [facility] Sodium levelOrdered By: Saturnino Mix on 03-08-2025 Sodium [Moles/Vol] 141 mmol/L 133-145 [facility] Squamous epithelial cells de tection in urine sediment by light microscopyOrdered By: Saturnino Mix on 03-08-2025 Epithelial cells.squamous LM Ql (Urine sed) 0-5 SEEN /hpf 5-10 [facility] Total proteinOrdered By: Arpita Mix on 03-08-2025 Protein [Mass/Vol] 6.6 g/dL 5.9-8.4 [facility] Urinalysis, Completeon 03-08 EPI,SQUAMOUS 0-5 SEEN Normal 5-10 [facility] Comment on above: Order Comment: CLEAN CATCH Performed By: #### L 400.0001 ####[facility] [address] [place], [address] BACTERIA 0 SEEN Normal None Seen [facility] Comment on above: Order Comment: CLEAN CATCH Performed By: #### L 400.0001 ####[facility] [address] [place], [address] Mucus Ql (Urine sed) 0 SEEN Normal [facility] Comment on above: Order Comment: CLEAN CATCH Performed By: #### L 400.0001 ####[facility] [address] [place], [address] RBC 0 SEEN Normal 0-5 [facility] Comment on above: Order Comment: CLEAN CATCH Performed By: #### L 400.0001 ####[facility] [address] [place], [place], [address] WBC 0 SEEN Normal 0-5 [facility] Comment on above: Order Comment: CLEAN CATCH Performed By: #### L 400.0001 ####[facility] [address] [place], [place], [address] Urine clarityOrdered By: Arpita Mix on 03-08-2025 Clarity (U) Clear Clear [facility] Urine color determinationOrd ered By: Saturnino Mix on 03-08-2025 Color (U) Yellow Yellow [facility] Urine glucose detectionOrder ed By: Saturnino Mix on 03-08-2025 Glucose Ql (U) Normal mg/dl Normal [facility] Urine leukocyte esterase det ection by dipstickOrdered By: Saturnino Mix on 03-08-2025 Leukocyte esterase Test strip Ql (U) Negative Negative [facility] Urine pHOrdered By: Saturnino huerta on 03-08-2025 pH (U) 7.0 [pH] 5.0 - 8.0 [facility] Urine sediment bacteria coun t by microscopy (number/high power field)Ordered By: Saturnino Mix on 03-08-2025 Bacteria LM.HPF (Urine sed) [#/Area] 0 /[HPF] None Seen [facility] Urine specific gravity measu rementOrdered By: Saturnino Mix on 03-08-2025 Specific gravity (U) [Rel density] 1.010 1.002-1.030 [facility] Urine urobilinogen measureme ntOrdered By: Saturnino Mix on 03-08-2025 Urobilinogen Ql (U) Normal mg/dl Normal [facility] White blood cell (WBC) count Ordered By: Saturnino Mix on 03-08-2025 WBC (Bld) [#/Vol] 5.8 10*3/uL 4.4-11.0 [facility] White blood cell countOrdere d By: Saturnino Mix on 03-08-2025 White blood cell count 0 SEEN /hpf 0-5 [facility] Internal Medicine Office Vis iton 02-15-2025 Internal Medicine Office Visit [facility] [address] [place] [address] [address] [place], [place] [address] OFFICE VISIT Date of Service: 02/15/25 MR#: [id number] Acct: [id number] Name: TRACY VAZQUEZ Rep #: [id number] : 1970 Provider: Dr. Fina ravi MD Age/Sex: 55/F Location: [facility] Status: Signed Intake Vital Signs 08/13/24 10:12 [...] M FU Chief Complaint: 6 M FU Ob Gyn Required: No Accompanied by: Self Is patient [...] states that she is still smoking regularly. [facility] Medical History (Updated 02/15/25 @ 12:31 [...] apartment current occupational status: employed current occupation: [employer] Smoking Status: Current every day smoker tobacco [...] Does not (more content not included)... Normal [facility] Office Visit Reporton 2024 Office Visit Report [facility] [address] [place] [address] OFFICE VISIT Date of Service: 02/07/25 MR#: [id number] Acct: [id number] Patient: TRACY VAZQUEZ Rep #: [id number] : 1970 Provider: KERRI Rice Age/Sex: 55/F Location: [facility] Status: Signed Intake Vital Signs 02/07/25 11:10 [...] Patrick Signature: Date (if applicable) CC: Normal [facility] Emergency Department Summary on 02-07-2025 Emergency Department Summary [facility] Medical Records Department [address] [place] [address] Emergency Department Summary 02/07/25 MR#: [id number] Acct: [id number] Name: TRACY VAZQUEZ Rep #: [id number] : 1970 55 From: Bozena MANNING PCP: Dr. Fina Iraheta MD Status:DEP ER Location: ED HPI History of Present Illness Chief Complaint: Head Injury Narrative Narrative: 55-year-old female presents after head injury that occurred on February 05 while working at [employer] (2 days ago). She was bending over [...] neck pain or extremity pain or paresthesias. [facility] Medical History Breast mass in female Osteoporosis [...] apartment current occupational status: employed current occupation: [employer] Smoking Status: Current every day smoker tobacco [...] No mi (more content not included)... [facility] Office Visit ([facility] ) ----- TRACY VAZQUEZ ([id number]) 1970 F Date Time Provider Department 12/28/24 12:30 PM CHANTEL SHAH [facility] During your visit today, we recorded the following information about you: Temperature Pulse Respiration Blood pressure 97.4 degrees 85/minute 18/minute 115/86 Weight 54.2 kg Chantel Shah APRN.TRANSPORTATION ENGINEERING TECHNICIAN 12/28/2024 1:50 PM Signed [facility] Subjective HPI HPI Tracy Vazquez [...] clear HIV (human immunodeficiency virus infection) ([facility]) 2009 Dr. Mcdonald-ID Left posterior fascicular block [...] 21.85 kg/m? Physical Exam HENT: Mouth/Throat: Lips: [place]. Mouth: Mucous membranes are moist. Cardiovascular: Rate and Rhythm: Regular rhythm. Lymphadenopathy: Cervical: No cervical adenopathy. Right cervical: No superficial cervical adenopathy. Left cervical: No superficial cervical adenopathy. {ASSESSMENT/PLAN: 1. Mouth pain - ICD9: 528.9, ICD10: K13.79 Treat with augmentin for possible puncture F/u with pcp next week if s/s persist. - AMOXICILLIN 875 MG-POTASSIUM CLAVULANATE 125 MG TABLET Chantel Shah APRN.TRANSPORTATION ENGINEERING TECHNICIAN History and Record Review External record(s) reviewed: prior outpatient record. Disposition The patient was discharged. Procedures Allergies As of Date: 12/28/2024 Noted Allergy Reaction HOUSE DUST MITE 12/05/2020 14 - Other: See Comments Comments: Itchy eyes SINGULAIR (MONTEL[place]AST) 06/07/2022 14 - Other: See Comments Comments: Had nightmares Date Reviewed: 0 (more content not included)... Normal [facility] CNOVon 12-13-2024 CNOV Office Visit (UCWSTR ) ----- TRACY VAZQUEZ ([id number]) 1970 F Date Time Provider Department 12/13/24 10:00 AM MEAGAN RIBEIRO [facility] During your visit today, we recorded the following information about you: Temperature Pulse Respiration Blood pressure 97.5 degrees 99/minute 22/minute 108/79 Weight 54 kg Meagan Ribeiro, DARIUS.[facility] 12/13/2024 10:26 AM Signed [facility] [...] pk-yrs) Types: (more content not included)... Normal [facility] CNOVon 12-04-2024 CNOV Office Visit (UCWSTR ) ----- TRACY VAZQUEZ ([id number]) 1970 F Date Time Provider Department 12/04/24 8:45 AM LOUIE TYSON [facility] During your visit today, [...] sinus pain. - Denies fever. - No topj-gjn-ppyrkel medications taken for symptoms. COPD: - History [...] clear HIV (human immunodeficiency virus infection) ([facility]) 2009 Dr. Mcdonald-ID Left posterior fascicular block [...] Resp: Lungs (more content not included)... Normal [facility] Internal Medicine Office Vis iton 11-28-2024 Internal Medicine Office Visit [facility] [address] [place] [address] [place] [address] OFFICE VISIT Date of Service: 11/28/24 MR#: [id number] Acct: [id number] Name: TRACY VAZQUEZ Rep #: [id number] : 1970 Provider: KERRI Tidwell Age/Sex: 54/F Location: [facility] Status: Signed Intake Vital Signs 11/26/24 07:02 [...] Method room air Intake Visit Reasons: [facility]UTE [facility] FU-LEAVE 60 MIN Ob Gyn Required: No Is patient in pain?: Yes [...] pain that she uses heating pad for. [facility] Medical History Breast mass in female [...] Diabetes Mental (more content not included)... Normal [facility] Absolute lymphocyte countOrd ered By: Saturnino Mix on 11-26-2024 Lymphocytes Auto (Unsp spec) [#/Vol] 2.03 10*3/uL 0.83-4.51 [facility] Absolute neutrophil countOrd ered By: Saturnino Mix on 11-26-2024 Neutrophils (Bld) [#/Vol] 3.4 10*3/uL 2.0-7.7 [facility] Anion gap in Serum or Plasma Ordered By: Saturnino Mix on 11-26-2024 Anion gap [Moles/Vol] 9 mmol/L 5-15 [facility] Automated blood erythrocyte countOrdered By: Saturnino Mix on 11-26-2024 RBC (Bld) [#/Vol] 3.94 10*6/uL Low 4.2-5.4 [facility] Comment on above: Performed By: #### L 500.2500, L100.0100 #### [facility] [address] [place], [address] Automated blood hematocrit ( percentage)Ordered By: Saturnino Mix on 11-26-2024 Hematocrit (Bld) [Volume fraction] 39.9 % Normal 37-47 [facility] Comment on above: Performed By: #### L 500.2500, L100.0100 #### [facility] [address] [place], [address] Automated lymphocyte count a s percentage of total leukocytesOrdered By: Saturnino Mix on 11-26-2024 Lymphocytes/100 WBC Auto (Unsp spec) 33.7 % 19-41 [facility] BUN/creatinine ratioOrdered By: Saturnino Mix on 11-26-2024 Urea nitrogen/Creatinine [Mass ratio] 11.4 mg/mg 10-20 [facility] Basic Metabolic Profile (BMP )on 11-26-2024 BUN/CRE 11.4 RATIO Normal - [facility] Comment on above: Performed By: #### L 500.2500, L100.0100 ####[facility] [address] [place], [address] Calcium [Mass/Vol] 9.0 mg/dL Normal 7.6-11.0 [facility] Comment on above: Performed By: #### L 500.2500, L100.0100 ####[facility] [address] [place], [address] Chloride [Moles/Vol] 107 mmol/L Normal 98-108 [facility] Comment on above: Performed By: #### L 500.2500, L100.0100 ####[facility] [address] [place], [address] CO2 [Moles/Vol] 24.4 mmol/L Normal 21.0-32.0 [facility] Comment on above: Performed By: #### L 500.2500, L100.0100 ####[facility] [address] [place], [address] Creatinine [Mass/Vol] 1.06 mg/dL Normal 0.70-1.20 [facility] Comment on above: Performed By: #### L 500.2500, L100.0100 ####[facility] [address] [place], [address] ECRCL 46.87 ml/min Low 50-250 [facility] Comment on above: Performed By: #### L 500.2500, L100.0100 ####[facility] [address] [place], [address] GAP 9 Normal 5-15 [facility] Comment on above: Performed By: #### L 500.2500, L100.0100 ####[facility] [address] [place], [address] GFR/1.73 sq M.predicted among non-blacks MDRD (S/P/Bld) [Vol rate/Area] 62 mL/min/{1.73_m2} Normal >60 [facility] Comment on above: Result Comment: mL/m in/1.73m2 CKD-EPI Creatinine Equation (2020) Performed By: #### L 500.2500, L100.0100 ####[facility] [address] [place], [address] Glucose [Mass/Vol] 89 mg/dL Normal 70-99 [facility] Comment on above: Performed By: #### L 500.2500, L100.0100 ####[facility] [address] [place], [address] Potassium [Moles/Vol] 3.9 mmol/L Normal 3.3-5.1 [facility] Comment on above: Performed By: #### L 500.2500, L100.0100 ####[facility] [address] [place], [address] Sodium [Moles/Vol] 140 mmol/L Normal 133-145 [facility] Comment on above: Performed By: #### L 500.2500, L100.0100 ####[facility] [address] [place], [address] Urea nitrogen [Mass/Vol] 12 mg/dL Normal 4-19 [facility] Comment on above: Performed By: #### L 500.2500, L100.0100 ####[facility] [address] [place], [address] Basophil percentageOrdered B y: Saturnino Mix on 11-26-2024 Basophils/100 WBC (Bld) 0.8 % Normal 0-1 [facility] Comment on above: Performed By: #### L 500.2500, L100.0100 #### [facility] [address] [place], [address] CBC W/Diff, Automatedon 05-1 -2024 Absolute Lymph 2.03 X10 3/uL Normal 0.83-4.51 [facility] Comment on above: Performed By: #### L 500.2500, L100.0100 #### [facility] [address] [place], [address] Absolute Neut 3.4 X10 3/uL Normal 2.0-7.7 [facility] Comment on above: Performed By: #### L 500.2500, L100.0100 #### [facility] [address] [place], [address] IG% 0.200 Normal 0.0-0.9 [facility] Comment on above: Result Comment: IG% - Immature Granulocytes (promyelocytes, myelocytes and metamyelocytes) > 1% indicates that a LEFT SHIFT is Present. Performed By: #### L 500.2500, L100.0100 #### [facility] [address] [place], [address] Lymphocytes/100 WBC (Bld) 33.7 % Normal 19-41 [facility] Comment on above: Performed By: #### L 500.2500, L100.0100 #### [facility] [address] [place], [address] Nucleated RBC (Bld) [#/Vol] 0 10*3/uL Normal 0-5 [facility] Comment on above: Performed By: #### L 500.2500, L100.0100 #### [facility] [address] [place], [address] RDW SD 47.6 fl High 35.1-43.9 [facility] Comment on above: Performed By: #### L 500.2500, L100.0100 #### [facility] [address] [place], [address] Carbon dioxide, total [Moles /volume] in Central venous bloodOrdered By: Saturnino Mix on 11-26-2024 CO2 [Moles/Vol] 24.4 mmol/L 21.0-32.0 [facility] Chest PA and Lateralon 11-26 Chest PA and Lateral [facility] Imaging Services [address] [place] [address] Chest PA and Lateral MR#: [id number] Acct: [id number] Name: TRACY VAZQUEZ Rep #: [id number] : 1970 F 54 From: Elier brumfield MD PCP: Dr. Fina Iraheta MD Status: REG ER Study: Chest PA and Lateral Date of Exam: 11/26/24 Exam# [id number] Ordering Dr: Saturnino Mix DO PROCEDURE: CHEST [...] No acute abnormality is seen. Reading Location: [id number] CC: Dr. Fina Iraheta MD; Dr. Saturnino Mix DO Ice Cutter: Signed Normal [facility] Chloride assayOrdered By: Roberto Mix on 11-26-2024 Chloride [Moles/Vol] 107 mmol/L 98-108 [facility] Emergency Department Summary on 11-26-2024 Emergency Department Summary [facility] Medical Records Department [address] [place] [address] Emergency Department Summary 11/26/24 MR#: [id number] Acct: [id number] Name: TRACY VAZQUEZ Rep #: [id number] : 1970 54 From: Saturnino Mix DO PCP: Dr. Fina Iraheta MD Status:DEP ER Location: ED [facility] History of Present Illness Chief Complaint: [...] Recent immobilization, Recent surgery or Recent travel [facility] Medical History Breast mass in female Osteoporosis [...] apartment current occupational status: employed current occupation: [employer] Smoking Status: Current every day smoker tobacco [...] sore throat (more content not included)... Normal [facility] Eosinophil percentageOrdered By: Saturnino Mix on 11-26-2024 Eosinophils/100 WBC (Bld) 2.2 % Normal 0-5 [facility] Comment on above: Performed By: #### L 500.2500, L100.0100 #### [facility] [address] [place], [address] Erythrocyte distribution wid th ratioOrdered By: Saturnino Mix on 11-26-2024 Erythrocyte distribution width (RBC) [Ratio] 12.6 % Normal 11.6-14.6 [facility] Comment on above: Performed By: #### L 500.2500, L100.0100 #### [facility] [address] [place], [address] Erythrocyte distribution wid th standard deviationOrdered By: Saturnino Mix on 11-26-2024 Erythrocyte distribution width (RBC) [Ratio] 47.6 fl High 35.1-43.9 [facility] Glomerular filtration rate ( GFR) estimation/1.73 sq m using serum, plasma, or whole bOrdered By: Saturnino Mix on 11-26-2024 GFR/1.73 sq M.predicted among non-blacks MDRD (S/P/Bld) [Vol rate/Area] 62 mL/min/{1.73_m2} >60 [facility] Comment on above: mL/min/1.73m2 CKD-EP I Creatinine Equation (2020) Hemoglobin measurementOrdere d By: Saturnino Mix on 11-26-2024 Hemoglobin (Bld) [Mass/Vol] 13.7 g/dL Normal 12.0-15.0 [facility] Comment on above: Performed By: #### L 500.2500, L100.0100 #### [facility] [address] [place], [address] Immature granulocytes/100 WB C Auto (Bld)Ordered By: Saturnino Mix on 11-26-2024 Immature granulocytes/100 WBC (Bld) 0.200 % 0.0-0.9 [facility] Comment on above: IG% - Immature Granu locytes (promyelocytes, myelocytes and metamyelocytes) > 1% indicates that a LEFT SHIFT is Present. Influenza virus A and B and SARS-CoV-2 (COVID-19) and Respiratory syncytial virus RNAOrdered By: Saturnino Mix on 11-26-2024 SARS-CoV-2 (COVID-19) RNA TESHA+probe Ql (Unsp spec) [facility] M100.678on 11-26-2024 M100.678 Pending SARS-CoV-2 (COVID 19) Negative INFLUENZA A Negative INFLUENZA B Negative RSV PCR Negative Normal [facility] Comment on above: Performed By: #### M 100.678 ####[facility] [address] [place], [address] MCV (mean corpuscular volume ) determinationOrdered By: Saturnino Mix on 11-26-2024 MCV (RBC) [Entitic vol] 101.3 fL High 81-99 [facility] Comment on above: Performed By: #### L 500.2500, L100.0100 #### [facility] [address] [place], [address] Mean corpuscular hemoglobin (MCH) determinationOrdered By: Saturnino Mix on 11-26-2024 MCH (RBC) [Entitic mass] 34.8 pg High 27.0-32.0 [facility] Comment on above: Performed By: #### L 500.2500, L100.0100 #### [facility] [address] [place], [address] Mean corpuscular hemoglobin concentration (MCHC) determinationOrdered By: Saturnino Mix on 11-26-2024 MCHC (RBC) [Mass/Vol] 34.3 g/dL Normal 32-36 [facility] Comment on above: Performed By: #### L 500.2500, L100.0100 #### [facility] [address] [place], [address] Mean platelet volume determi nationOrdered By: Saturnino Mix on 11-26-2024 Platelet mean volume (Bld) [Entitic vol] 11.0 fL Normal 6.2-12.0 [facility] Comment on above: Performed By: #### L 500.2500, L100.0100 #### [facility] [address] [place], [address] Monocyte percentageOrdered B y: Saturnino Mix on 11-26-2024 Monocytes/100 WBC (Bld) 6.3 % Normal 0-10 [facility] Comment on above: Performed By: #### L 500.2500, L100.0100 #### [facility] [address] [place], [address] Neutrophil percentageOrdered By: Saturnino Mix on 11-26-2024 Neutrophils/100 WBC (Bld) 56.8 % Normal 47-70 [facility] Comment on above: Performed By: #### L 500.2500, L100.0100 #### [facility] [address] [place], [address] Nucleated red blood cell per centageOrdered By: Saturnino Mix on 11-26-2024 Nucleated RBC/100 WBC (Bld) [Ratio] 0 % 0-5 [facility] Platelet countOrdered By: Roberto Mix on 11-26-2024 Platelets (Bld) [#/Vol] 207 10*3/uL Normal 150-450 [facility] Comment on above: Performed By: #### L 500.2500, L100.0100 #### [facility] [address] [place], [address] Potassium measurement (mass/ volume)Ordered By: Saturnino Mix on 11-26-2024 Potassium (Unsp spec) [Mass/Vol] 3.9 mmol/L 3.3-5.1 [facility] Serum creatinine measurement (mass/volume)Ordered By: Saturnino Mix on 11-26-2024 Creatinine [Mass/Vol] 1.06 mg/dL 0.70-1.20 [facility] Serum glucose measurement (m ass/volume)Ordered By: Saturnino Mix on 11-26-2024 Glucose [Mass/Vol] 89 mg/dL 70-99 [facility] Serum or plasma calcium hortensia urement (mass/volume)Ordered By: Saturnino Mix on 11-26-2024 Calcium [Mass/Vol] 9.0 mg/dL 7.6-11.0 [facility] Serum or plasma urea nitroge n measurement (mass/volume)Ordered By: Saturnino Mix on 11-26-2024 Urea nitrogen [Mass/Vol] 12 mg/dL 4-19 [facility] Sodium levelOrdered By: Saturnino Mix on 11-26-2024 Sodium [Moles/Vol] 140 mmol/L 133-145 [facility] White blood cell (WBC) count Ordered By: Saturnino Mix on 11-26-2024 WBC (Bld) [#/Vol] 6.0 10*3/uL Normal 4.4-11.0 [facility] Comment on above: Performed By: #### L 500.2500, L100.0100 #### [facility] [place], [address] CNOVon 11-07-2024 CNOV Office Visit ([facility] ) ----- TRACY VAZQUEZ ([id number]) 1970 F Date Time Provider Department 11/07/24 10:30 AM JULIETA POOLE During your visit today, we recorded the following information about you: Temperature Pulse Respiration Blood pressure 98.2 degrees 82/minute 16/minute 110/64 Weight 54.9 kg Julieta Poole APRN.TRANSPORTATION ENGINEERING TECHNICIAN 11/07/2024 10:55 AM Signed This note was created using [employer]. Subjective Tracy Vazquez is a 54 year [...] 1 capsule (more content not included)... Normal [facility] Breast Limited Unilateralon 11-05-2024 Breast Limited Unilateral [facility] Imaging Services [address] [place] [address] Breast Limited Unilateral MR#: [id number] Acct: [id number] Name: TRACY VAZQUEZ Rep #: [id number] : 1970 F 54 From: Dianne Grady PCP: Dr. Fina Iraheta MD Status: REG CLI Study: Breast Limited Unilateral Date of Exam: Exam# [id number] Ordering Dr: Fina Iraheta MD PROCEDURE: BREAST [...] Birads: BI-RADS 3: PROBABLY BENIGN. Reading Location: [id number] CC: Dr. Fina Iraheta MD Ice Cutter: Signed Normal [facility] DIAG MAMM W/CAD, BILATon DIAG MAMM W/CAD, BILAT [facility] Imaging Services [address] [facility] [place], [place] [address] DIAG MAMM W/CAD, BILAT MR#: [id number] Acct: [id number] Name: TRACY VAZQUEZ Rep #: [id number] : 1970 F 54 From: Dianne Grady PCP: Dr. Fina Iraheta MD Status: REG CLI Study: DIAG MAMM W/CAD, BILAT Date of Exam: 11/05/24 Exam# [id number] Ordering Dr: Fina Iraheta MD EXAM: DIAG [...] be mailed to the patient. Reading Location: [id number] CC: Dr. Fina Iraheta MD Ice Cutter: Signed Normal [facility] Bananaon 10-13-2024 BANANA <0.10 Normal Class 0 [facility] Comment on above: Result Comment: Perf ormed at: [address] [id number] [employer] Department Manager: Trevin Anguiano MD, Phone: [phone] Performed By: #### L 5500.0550, L5530.0089 ####[facility] [address] [facility] [id number] L5500.0550on 10-13-2024 BEEF <0.10 Normal Class 0 [facility] Comment on above: Performed By: #### L 5500.0550, L5530.0089 ####[facility] [address] [place], [address] CHOCOLATE <0.10 Normal Class 0 [facility] Comment on above: Performed By: #### L 5500.0550, L5530.0089 ####[facility] [address] [place], [address] CODFISH <0.10 Normal Class 0 [facility] Comment on above: Performed By: #### L 5500.0550, L5530.0089 ####[facility] [address] [place], [place], [address] COMMENT Comment Normal . [facility] Comment on above: Result Comment: Jonny sherman of Specific IgE Class Description of Class ----- < 0.10 0 Negative 0.10 - 0.31 0/I Equivocal/Low 0.32 - 0.55 I Low 0.56 - 1.40 II Moderate 1.41 - 3.90 III High 3.91 - 19.00 IV Very High 19.01 - 100.00 V Very High >100.00 Very High Performed By: #### L 5500.0550, L5530.0089 ####[facility] [address] [place], [address] CORN <0.10 Normal Class 0 [facility] Comment on above: Performed By: #### L 5500.0550, L5530.0089 ####[facility] [address] [place], [address] EGG, WHOLE <0.10 Normal Class 0 [facility] Comment on above: Performed By: #### L 5500.0550, L5530.0089 ####[facility] [address] [place], [address] MILK (COW) <0.10 Normal Class 0 [facility] Comment on above: Performed By: #### L 5500.0550, L5530.0089 ####[facility] [address] [place], [address] MUSSELS <0.10 Normal Class 0 [facility] Comment on above: Performed By: #### L 5500.0550, L5530.0089 ####[facility] [address] [place], [address] PEANUT <0.10 Normal Class 0 [facility] Comment on above: Performed By: #### L 5500.0550, L5530.0089 ####[facility] [address] [place], [address] PORK <0.10 Normal Class 0 [facility] Comment on above: Performed By: #### L 5500.0550, L5530.0089 ####[facility] [address] [place], [address] SALMON <0.10 Normal Class 0 [facility] Comment on above: Performed By: #### L 5500.0550, L5530.0089 ####[facility] [address] [place], [address] SHRIMP <0.10 Normal Class 0 [facility] Comment on above: Performed By: #### L 5500.0550, L5530.0089 ####[facility] [address] [place], [address] SOYBEAN <0.10 Normal Class 0 [facility] Comment on above: Performed By: #### L 5500.0550, L5530.0089 ####[facility] [address] [place], [address] TUNA <0.10 Normal Class 0 [facility] Comment on above: Performed By: #### L 5500.0550, L5530.0089 ####[facility] [address] [place], [address] WHEAT <0.10 Normal Class 0 [facility] Comment on above: Performed By: #### L 5500.0550, L5530.0089 ####[facility] [address] [place], [address] Internal Medicine Office Vis daryl 10-04-2024 Internal Medicine Office Visit [facility] [address] [place] [address] [place] [address] OFFICE VISIT Date of Service: 10/04/24 MR#: [id number] Acct: [id number] Name: TRACY VAZQUEZ Rep #: [id number] : 1970 Provider: KERRI Tidwell Age/Sex: 54/F [...] FU FROM BONE DENSITY-OK PER DR IRAHETA Ob Gyn Required: No Is patient in pain?: No [...] apartment current occupational status: employed current occupation: [employer] Smoking Status: Current every day smoker tobacco [...] or ma (more content not included)... Normal [facility] Laboratory - Miscellaneous t estsOrdered By: Lucas Marrufo on 10-04-2024 Service comment (Unsp spec) [Interp] Comment . [facility] Comment on above: Levels of Specific I [...] IgE Qn (S) <0.10 kU/L Class 0 [facility] Comment on above: Performed at: [address] [id number] Director: Trevin Anguiano MD, Phone: [phone] Serum beef IgE antibody assa y (units/volume)Ordered By: Lucas Marrufo on 10-04-2024 Beef IgE Qn (S) <0.10 kU/L Class 0 [facility] Beef IgE Qn (S) Not Reportable [facility] Serum codfish IgE antibody a ssay (units/volume)Ordered By: Lucas Marrufo on 10-04-2024 Codfish IgE Qn (S) <0.10 kU/L Class 0 [facility] Serum corn IgE antibody assa y (units/volume)Ordered By: Lucas Marrufo on 10-04-2024 [place] IgE Qn (S) <0.10 kU/L Class 0 [facility] Serum cow milk IgE antibody assay (units/volume)Ordered By: Luacs Marrufo on 10-04-2024 Cow milk IgE Qn (S) <0.10 kU/L Class [address] [facility] Serum peanut IgE antibody as say (units/volume)Ordered By: Lucas Marrufo on 10-04-2024 Peanut IgE Qn (S) <0.10 kU/L Class 0 [facility] Serum pork IgE antibody assa y (units/volume)Ordered By: Lucas Marrufo on 10-04-2024 Pork IgE Qn (S) <0.10 kU/L Class 0 [facility] Serum salmon IgE antibody as say (units/volume)Ordered By: Lucas Marrufo on 10-04-2024 [place] IgE Qn (S) <0.10 kU/L Class 0 [facility] Serum soybean IgE antibody a ssay (units/volume)Ordered By: Lucas Marrufo on 10-04-2024 Soybean IgE Qn (S) <0.10 kU/L Class 0 [facility] Serum tuna IgE antibody assa y (units/volume)Ordered By: Lucas Marrufo on 10-04-2024 Tuna IgE Qn (S) <0.10 kU/L Class 0 [facility] Serum wheat IgE antibody ass ay (units/volume)Ordered By: Lucas Marrufo on 10-04-2024 Wheat IgE Qn (S) <0.10 kU/L Class 0 [facility] Serum whole egg IgE antibody assay (units/volume)Ordered By: Lucas Marrufo on 10-04-2024 Whole Egg IgE Qn (S) <0.10 kU/L Class 0 [facility] CNOVon 09-27-2024 [facility] ----- TRACY VAZQUEZ ([id number]) 1970 F Date Time Provider Department 09/27/24 12:45 PM LOUIE TYSON [facility] During your visit today, [...] clear HIV (human immunodeficiency virus infection) ([facility]) 2009 Dr. Mcdonald-ID Left posterior fascicular block [...] 22.17 k (more content not included)... Normal [facility] HIV Viral Load Quanton 09-27 HIV-1 RNA, PCR < 20 Normal . [facility] Comment on above: Result Comment: HIV- 1 RNA not detected The reportable range for this assay is 20 to 10,000,000 copies HIV-1 RNA/mL. Performed By: #### L 100.0500, L500.2500, L3890.4000, L3890.0200 ####[facility] [address] [place], [place], [address] log10 HIV-1 RNA TNP Normal . [facility] Comment on above: Result Comment: Resu lt Units: [id number]/mL Unable to calculate result since non-numeric result obtained for component test. Performed at: [address] [id number] Mill[employer] Department Manager: Trevin Anguiano MD, Phone: [phone] Performed By: #### L 100.0500, L500.2500, L3890.4000, L3890.0200 ####[facility] [address] [place], [place], [address] CD4, T Lymph Griffin Counton 09-26-2024 % CD4 POS.LYMPH 47.1 Normal 30.8-58.5 [facility] Comment on above: Performed By: #### L 100.0500, L500.2500, L3890.4000, L3890.0200 ####[facility] [address] [place], [place], [address] ABSOLUTE CD4 1083 /uL Normal 359-1519 [facility] Comment on above: Performed By: #### L 100.0500, L500.2500, L3890.4000, L3890.0200 ####[facility] [address] [place], [address] Basophils 1 Normal Not Estab. [facility] Comment on above: Performed By: #### L 100.0500, L500.2500, L3890.4000, L3890.0200 ####[facility] [address] [place], [address] Basos Absolute 0.1 x10E3/uL Normal 0.0-0.2 [facility] Comment on above: Performed By: #### L 100.0500, L500.2500, L3890.4000, L3890.0200 ####[facility] [address] [place], [address] Eos Absolute 0.2 x10E3/uL Normal 0.0-0.4 [facility] Comment on above: Performed By: #### L 100.0500, L500.2500, L3890.4000, L3890.0200 ####[facility] [address] [place], [address] Eosinophils 2 Normal Not Estab. [facility] Comment on above: Performed By: #### L 100.0500, L500.2500, L3890.4000, L3890.0200 ####[facility] [address] [place], [address] Erythrocyte distribution width (RBC) [Ratio] 12.4 % Normal 11.7-15.4 [facility] Comment on above: Performed By: #### L 100.0500, L500.2500, L3890.4000, L3890.0200 ####[facility] [address] [place], [address] Hematocrit (Bld) [Volume fraction] 44.0 % Normal 34.0-46.6 [facility] Comment on above: Performed By: #### L 100.0500, L500.2500, L3890.4000, L3890.0200 ####[facility] [address] [place], [place], [address] Heme Comment TNP Normal . [facility] Comment on above: Performed By: #### L 100.0500, L500.2500, L3890.4000, L3890.0200 ####[facility] [address] [place], [address] Hemoglobin (Bld) [Mass/Vol] 14.4 g/dL Normal 11.1-15.9 [facility] Comment on above: Performed By: #### L 100.0500, L500.2500, L3890.4000, L3890.0200 ####[facility] [address] [place], [address] Imm Grans Abs 0 x10E3/uL Normal 0.0-0.1 [facility] Comment on above: Result Comment: Perf ormed at: - [facility] [address] [id number] Millinery Department Manager: Leonard Chester PhD, Phone: [phone] Performed By: #### L 100.0500, L500.2500, L3890.4000, L3890.0200 ####[facility] [address] [place], [address] Immature Cells TNP Normal . [facility] Comment on above: Performed By: #### L 100.0500, L500.2500, L3890.4000, L3890.0200 ####[facility] [address] [place], [place], [address] Immature Grans 0 Normal Not Estab. [facility] Comment on above: Performed By: #### L 100.0500, L500.2500, L3890.4000, L3890.0200 ####[facility] [address] [place], [address] Lymphocytes 29 Normal Not Estab. [facility] Comment on above: Performed By: #### L 100.0500, L500.2500, L3890.4000, L3890.0200 ####[facility] [address] [place], [address] Lymphocytes (Bld) [#/Vol] 2.3 10*3/uL Normal 0.7-3.1 [facility] Comment on above: Performed By: #### L 100.0500, L500.2500, L3890.4000, L3890.0200 ####[facility] [address] [place], [address] MCH (RBC) [Entitic mass] 33.9 pg High 26.6-33.0 [facility] Comment on above: Performed By: #### L 100.0500, L500.2500, L3890.4000, L3890.0200 ####[facility] [address] [place], [address] MCHC (RBC) [Mass/Vol] 32.7 g/dL Normal 31.5-35.7 [facility] Comment on above: Performed By: #### L 100.0500, L500.2500, L3890.4000, L3890.0200 ####[facility] [address] [place], [address] MCV (RBC) [Entitic vol] 104 fL High 79-97 [facility] Comment on above: Performed By: #### L 100.0500, L500.2500, L3890.4000, L3890.0200 ####[facility] [address] [place], [address] Monocytes 6 Normal Not Estab. [facility] Comment on above: Performed By: #### L 100.0500, L500.2500, L3890.4000, L3890.0200 ####[facility] [address] [place], [address] Monos Absolute 0.5 x10E3/uL Normal 0.1-0.9 [facility] Comment on above: Performed By: #### L 100.0500, L500.2500, L3890.4000, L3890.0200 ####[facility] [address] [place], [address] Neutro Absolute 5.0 x10E3/uL Normal 1.4-7.0 [facility] Comment on above: Performed By: #### L 100.0500, L500.2500, L3890.4000, L3890.0200 ####[facility] [address] [place], [address] Neutrophils 62 Normal Not Estab. [facility] Comment on above: Performed By: #### L 100.0500, L500.2500, L3890.4000, L3890.0200 ####[facility] [address] [place], [address] NRBC Count TNP Normal . [facility] Comment on above: Performed By: #### L 100.0500, L500.2500, L3890.4000, L3890.0200 ####[facility] [address] [place], [address] Platelets (Bld) [#/Vol] 231 10*3/uL Normal 150-450 [facility] Comment on above: Performed By: #### L 100.0500, L500.2500, L3890.4000, L3890.0200 ####[facility] [address] [place], [address] RBC (Bld) [#/Vol] 4.25 10*6/uL Normal 3.77-5.28 [facility] Comment on above: Performed By: #### L 100.0500, L500.2500, L3890.4000, L3890.0200 ####[facility] [address] [place], [place], [address] WBC (Bld) [#/Vol] 8.1 10*3/uL Normal 3.4-10.8 [facility] Comment on above: Performed By: #### L 100.0500, L500.2500, L3890.4000, L3890.0200 ####[facility] [address] [place], [address] Absolute CD4 countOrdered By : Epi Mcdonald on 09-25-2024 CD3+CD4+ (T4 helper) cells (Bld) [#/Vol] 1083 /uL 359-7723 [facility] Absolute immature granulocyt e countOrdered By: Epi Mcdonald on 09-25-2024 Immature granulocytes (Bld) [#/Vol] 0 10*3/uL 0.0-0.1 [facility] Comment on above: Performed at: [place] [id number] Director: Leonard Chester PhD, Phone: [phone] Absolute lymphocyte countOrd ered By: Epi Mcdonald on 09-25-2024 Lymphocytes Auto (Unsp spec) [#/Vol] 2.3 10*3/uL 0.7-3.1 [facility] Absolute monocyte countOrder ed By: Epi Mcdonald on 09-25-2024 Monocytes (Bld) [#/Vol] 0.5 10*3/uL 0.1-0.9 [facility] Absolute neutrophil countOrd ered By: Epi Mcdonald on 09-25-2024 Neutrophils (Bld) [#/Vol] 5.0 10*3/uL 1.4-7.0 [facility] Anion gap in Serum or Plasma Ordered By: Epi Mcdonald on 09-25-2024 Anion gap [Moles/Vol] 11 mmol/L 5-15 [facility] BUN/creatinine ratioOrdered By: Epi Mcdonald on 09-25-2024 Urea nitrogen/Creatinine [Mass ratio] 10.4 mg/mg 10- [facility] Basic Metabolic Profile (BMP )on 09-25-2024 BUN/CRE 10.4 RATIO Normal -20 [facility] Comment on above: Performed By: #### L 100.0500, L500.2500, L3890.4000, L3890.0200 ####[facility] [address] [place], [address] Calcium [Mass/Vol] 9.4 mg/dL Normal 7.6-11.0 [facility] Comment on above: Performed By: #### L 100.0500, L500.2500, L3890.4000, L3890.0200 ####[facility] [address] [place], [address] Chloride [Moles/Vol] 105 mmol/L Normal 98-108 [facility] Comment on above: Performed By: #### L 100.0500, L500.2500, L3890.4000, L3890.0200 ####[facility] [address] [place], [address] CO2 [Moles/Vol] 23.2 mmol/L Normal 21.0-32.0 [facility] Comment on above: Performed By: #### L 100.0500, L500.2500, L3890.4000, L3890.0200 ####[facility] [address] [place], [address] Creatinine [Mass/Vol] 1.05 mg/dL Normal 0.70-1.20 [facility] Comment on above: Performed By: #### L 100.0500, L500.2500, L3890.4000, L3890.0200 ####[facility] [address] [place], [address] GAP 11 Normal 5-15 [facility] Comment on above: Performed By: #### L 100.0500, L500.2500, L3890.4000, L3890.0200 ####[facility] [address] [place], [address] GFR/1.73 sq M.predicted among non-blacks MDRD (S/P/Bld) [Vol rate/Area] 62 mL/min/{1.73_m2} Normal >60 [facility] Comment on above: Result Comment: mL/m in/1.73m2 CKD-EPI Creatinine Equation (2020) Performed By: #### L 100.0500, L500.2500, L3890.4000, L3890.0200 ####[facility] [address] [place], [address] Glucose [Mass/Vol] 83 mg/dL Normal 70-99 [facility] Comment on above: Performed By: #### L 100.0500, L500.2500, L3890.4000, L3890.0200 ####[facility] [address] [place], [address] Potassium [Moles/Vol] 4.4 mmol/L Normal 3.3-5.1 [facility] Comment on above: Performed By: #### L 100.0500, L500.2500, L3890.4000, L3890.0200 ####[facility] [address] [place], [address] Sodium [Moles/Vol] 139 mmol/L Normal 133-145 [facility] Comment on above: Performed By: #### L 100.0500, L500.2500, L3890.4000, L3890.0200 ####[facility] [address] [place], [address] Urea nitrogen [Mass/Vol] 11 mg/dL Normal 4-19 [facility] Comment on above: Performed By: #### L 100.0500, L500.2500, L3890.4000, L3890.0200 ####[facility] [address] [place], [address] Basophils/100 WBC Auto (Bld) Ordered By: Epi Mcdonald on 09-25-2024 Basophils/100 WBC (Bld) 1 % Not Estab. [facility] Blood basophils count (numbe r/volume)Ordered By: Epi Mcdonald on 09-25-2024 Basophils (Bld) [#/Vol] 0.1 10*3/uL 0.0-0.2 [facility] Blood eosinophils count (num tristin/volume)Ordered By: Epi Mcdonald on 09-25-2024 Eosinophils (Bld) [#/Vol] 0.2 10*3/uL 0.0-0.4 [facility] Blood hematocrit (volume fra ction)Ordered By: Epi Mcdonald on 09-25-2024 Hematocrit (Bld) [Volume fraction] 44.0 % 34.0-46.6 [facility] Blood immature cells/100 wes kocytesOrdered By: Epi Mcdonald on 09-25-2024 Immature cells/100 WBC (Bld) TNP [facility] Comment on above: Test not performed Blood immature granulocytes/ 100 leukocytesOrdered By: Epi Mcdonald on 09-25-2024 Immature granulocytes/100 WBC (Bld) 0 % Not Estab. [facility] Blood platelets count (numbe r/volume)Ordered By: Epi Mcdonald on 09-25-2024 Platelets (Bld) [#/Vol] 231 10*3/uL 150-450 [facility] Bone density reportOrdered B y: Elier Meyer on 09-25-2024 Study report Skeletal system DXA [facility] Imaging Services [address] [place], [place] [id number] Dexa Bone Density Study MR#: [id number] Acct: [id number] Name: TRACY VAZQUEZ Rep #: [id number] : 1970 F 54 From: Peter Meyer MD PCP: Dr. Fina Iraheta MD Status: R EG CLI Study:Dexa Bone Density Study Date of Exam: 09/25/24 Exam# [id number] Ordering Dr: Betty Iraheta MD PROCEDURE: DEXA [...] with a high fracture risk. Reading Location: [place] [address] CC: Dr. Fina Iraheta MD ~ Ice Cutter: Signed [facility] Brain/Head without Contrasto n 09-25-2024 Brain/Head without Contrast [facility] Imaging Services [address] [place] [id number] Brain/Head without Contrast MR#: [id number] Acct: [id number] Name: TRACY VAZQUEZ Rep #: [id number] : 1970 F 54 From: Epi Grady PCP: Dr. Fina Iraheta MD Status: REG Study: Brain/Head without Contrast Date of Exam: 09/15 08/11 Exam# [id number] Ordering Dr: Joselito Nichols DO EXAM: CT [...] Fina Iraheta MD; Dr. Joselito Nichols DO Ice Cutter: Signed Normal [facility] CBC-Complete Blood Cnt No Di ffon 09-25-2024 Erythrocyte distribution width (RBC) [Ratio] 12.7 % Normal 11.6-14.6 [facility] Comment on above: Performed By: #### L 100.0500, L500.2500, L3890.4000, L3890.0200 ####[facility] [address] [place], [address] Hematocrit (Bld) [Volume fraction] 41.7 % Normal 37-47 [facility] Comment on above: Performed By: #### L 100.0500, L500.2500, L3890.4000, L3890.0200 ####[facility] [address] [place], [address] Hemoglobin (Bld) [Mass/Vol] 14.1 g/dL Normal 12.0-15.0 [facility] Comment on above: Performed By: #### L 100.0500, L500.2500, L3890.4000, L3890.0200 ####[facility] [address] [place], [address] MCH (RBC) [Entitic mass] 34.1 pg High 27.0-32.0 [facility] Comment on above: Performed By: #### L 100.0500, L500.2500, L3890.4000, L3890.0200 ####[facility] [address] [place], [address] MCHC (RBC) [Mass/Vol] 33.8 g/dL Normal 32-36 [facility] Comment on above: Performed By: #### L 100.0500, L500.2500, L3890.4000, L3890.0200 ####[facility] [address] [place], [address] MCV (RBC) [Entitic vol] 100.7 fL High 81-99 [facility] Comment on above: Performed By: #### L 100.0500, L500.2500, L3890.4000, L3890.0200 ####[facility] [address] [place], [address] Platelet mean volume (Bld) [Entitic vol] 10.9 fL Normal 6.2-12.0 [facility] Comment on above: Performed By: #### L 100.0500, L500.2500, L3890.4000, L3890.0200 ####[facility] [address] [place], [address] Platelets (Bld) [#/Vol] 222 10*3/uL Normal 150-450 [facility] Comment on above: Performed By: #### L 100.0500, L500.2500, L3890.4000, L3890.0200 ####[facility] [address] [place], [address] RBC (Bld) [#/Vol] 4.14 10*6/uL Low 4.2-5.4 [facility] Comment on above: Performed By: #### L 100.0500, L500.2500, L3890.4000, L3890.0200 ####[facility] [address] [place], [address] RDW SD 47.7 fl High 35.1-43.9 [facility] Comment on above: Performed By: #### L 100.0500, L500.2500, L3890.4000, L3890.0200 ####[facility] [address] [place], [address] WBC (Bld) [#/Vol] 8.0 10*3/uL Normal 4.4-11.0 [facility] Comment on above: Performed By: #### L 100.0500, L500.2500, L3890.4000, L3890.0200 ####[facility] [address] [place], [address] CD3+CD4+ (T4 helper) cells ( Bld) [#/Vol]Ordered By: Epi Mcdonald on 09-25-2024 Absolute CD4 Count 1083 /uL [id number] [facility] CD3+CD4+ (T4 helper) cells/1 00 cells (Unsp spec)Ordered By: Epi Mcdonald on 09-25-2024 Percent CD4 Cells 47.1 % 30.8-58.5 [facility] Carbon dioxide, total [Moles /volume] in Central venous bloodOrdered By: Epi Mcdonald on 09-25-2024 CO2 [Moles/Vol] 23.2 mmol/L 21.0-32.0 [facility] Chloride assayOrdered By: Sue Mcdonald on 09-25-2024 Chloride [Moles/Vol] 105 mmol/L 98-108 [facility] Determination of erythrocyte mean corpuscular volume (MCV)Ordered By: Epi Mcdonald on 09-25-2024 MCV (RBC) [Entitic vol] 104 fL High 79-97 [facility] Dexa Bone Density Studyon Dexa Bone Density Study [facility] Imaging Services [address] [place] [address] Dexa Bone Density Study MR#: [id number] Acct: [id number] Name: TRACY VAZQUEZ Rep #: [id number] : 1970 F 54 From: Elier brumfield MD PCP: Dr. Fina Iraheta MD Status: REG CLI Study: Dexa Bone Density Study Date of Exam: 09/25/24 Exam# [id number] Ordering Dr: Fina Iraheta MD PROCEDURE: DEXA [...] with a high fracture risk. Reading Location: [facility]- CC: Dr. Fina Iraheta MD Ice Cutter: Signed Normal [facility] Emergency Department Summary on 09-25-2024 Emergency Department Summary [facility] Medical Records Department [address] [place] [address] Emergency Department Summary 09/25/24 MR#: [id number] Acct: [id number] Name: TRACY VAZQUEZ Rep #: [id number] : 1970 54 From: Joselito Rush PCP: [...] nausea or vomiting. [facility] similar [facility] Medical History Osteoporosis Macrocytosis Pain, dental [...] Verified 09/25/24 16:41 of breath montelukast (From CFX BATTERY) Allergy [place] Verified 09/25/24 16:41 Family History Mother Alcoholism Arthritis Cancer LUNG Osteoporosis Father Alcoholism Angina at rest Cancer LUNG Diabetes Hypertension Sister Alcoholism Blood clot in leg Diabetes Mental disorder Suicide attempt Aunt Breast cancer Surgical History H/O foot surgery H/O breast augmentation Social History housing: apartment current occupational status: employed current occupation: [employer] Smoking Status: Current every day smoker tobacco [...] 09/25/24 21:49 (more content not included)... Normal [facility] Eosinophils/100 WBC Auto (Bl d)Ordered By: Epi Mcdonald on 09-25-2024 Eosinophils/100 WBC (Bld) 2 % Not Estab. [facility] Erythrocyte distribution wid th ratioOrdered By: Epi Mcdonald on 09-25-2024 Erythrocyte distribution width (RBC) [Ratio] 12.7 % 11.6-14.6 [facility] Erythrocyte distribution width (RBC) [Ratio] 12.4 % 11.7-15.4 [facility] Erythrocyte distribution wid th standard deviationOrdered By: Epi Mcdonald on 09-25-2024 Erythrocyte distribution width (RBC) [Entitic vol] 47.7 fL High 35.1-43.9 [facility] Erythrocyte distribution width (RBC) [Ratio] 47.7 fl High 35.1-43.9 [facility] GFR/1.73 sq M.predicted james g non-blacks MDRD (S/P/Bld) [Vol rate/Area]Ordered By: Epi Mcdonald on 09-25-2024 Estimated GFR (MDRD) Non-Af Amer 62 >60 [facility] Comment on above: mL/min/1.73m2 CKD-EP I Creatinine Equation (2020) Glomerular filtration rate ( GFR) estimation/1.73 sq m using serum, plasma, or whole bOrdered By: Epi Mcdonald on 09-25-2024 GFR/1.73 sq M.predicted among non-blacks MDRD (S/P/Bld) [Vol rate/Area] 62 mL/min/{1.73_m2} >60 [facility] Comment on above: mL/min/1.73m2 CKD-EP I Creatinine Equation (2020) HIV 1 RNA TESHA+probe [Log #/V ol]Ordered By: Epi Mcdonald on 09-25-2024 HIV-1 RNA (PCR) log10 Value TNP [facility] Comment on above: Test not performedRe sult Units: phy67rtsq/mLUnable to calculate result since non-numeric resultobtained for component test.Performed at: - [address] [id number] Director: Trevin Anguiano MD, Phone: [phone] Hematocrit Auto (Bld) [Volum e fraction]Ordered By: Epi Mcdonald on 09-25-2024 Hematocrit (Bld) [Volume fraction] 41.7 % 37-47 [facility] Hemoglobin measurementOrdere d By: Epi Mcdonald on 09-25-2024 Hemoglobin (Bld) [Mass/Vol] 14.1 g/dL 12.0-15.0 [facility] Immature cells/100 WBC (Bld) Ordered By: Epi Mcdonald on 09-25-2024 Immature Blood Cells [facility] Comment on above: Test not performed Interpretation of morphologi c examination of blood (narrative result)Ordered By: Epi Mcdonald on 09-25-2024 Morphology Elias (Bld) [Interp] [facility] Comment on above: Test not performed L503.0106on 09-25-2024 Cobalamin (Vitamin B12) [Mass/Vol] 280 pg/mL Normal 180-914 [facility] Comment on above: Performed By: #### L 503.0106 ####[facility] [id number] [place], [address] Laboratory - Hematology and Cell countsOrdered By: Epi Mcdonald on 09-25-2024 MCH (RBC) [Entitic mass] 33.9 pg High 26.6-33.0 [facility] Lymphocytes Auto (Unsp spec) [#/Vol]Ordered By: Epi Mcdonald on 09-25-2024 Lymphocytes (Bld) [#/Vol] 2.3 10*3/uL 0.7-3.1 [facility] Lymphocytes/100 WBC Auto (Bl d)Ordered By: Epi Mcdonald on 09-25-2024 Lymphocytes/100 WBC (Bld) 29 % Not Estab. [facility] MCHC Auto (RBC) [Mass/Vol]Or dered By: Epi Mcdonald on 09-25-2024 MCHC (RBC) [Mass/Vol] 32.7 g/dL 31.5-35.7 [facility] MCV (mean corpuscular volume ) determinationOrdered By: Epi Mcdonald on 09-25-2024 MCV (RBC) [Entitic vol] 100.7 fL High 81-99 [facility] Mean corpuscular hemoglobin (MCH) determinationOrdered By: Epi Mcdonald on 09-25-2024 MCH (RBC) [Entitic mass] 34.1 pg High 27.0-32.0 [facility] Mean corpuscular hemoglobin concentration (MCHC) determinationOrdered By: Epi Mcdonald on 09-25-2024 MCHC (RBC) [Mass/Vol] 33.8 g/dL 32-36 [facility] Mean platelet volume determi nationOrdered By: Epi Mcdonald on 09-25-2024 Platelet mean volume (Bld) [Entitic vol] 10.9 fL 6.2-12.0 [facility] Monocyte detectionOrdered By : Epi Mcdonald on 09-25-2024 Monocytes/100 WBC (Bld) 6 % Not Estab. [facility] Morphology Elias (Bld) [Interp ]Ordered By: Epi Mcdonald on 09-25-2024 Hematology Comments [facility] Comment on above: Test not performed Neutrophil countOrdered By: Epi Mcdonald on 09-25-2024 Neutrophils/100 WBC (Bld) 62 % [facility] Nucleated RBC/100 WBC Auto ( Bld) [Ratio]Ordered By: Epi Mcdonald on 09-25-2024 Nucleated RBC/100 WBC (Bld) [Ratio] [facility] Comment on above: Test not performed Nucleated Red Blood Cells [facility] Comment on above: Test not performed Percent of cells positive fo r CD4 antigenOrdered By: Epi Mcdonald on 09-25-2024 CD3+CD4+ (T4 helper) cells/100 cells (Unsp spec) 47.1 % 30.8-58.5 [facility] Plasma HIV 1 RNA viral load by probe and target amplification method (log number/voluOrdered By: Epi Mcdonald on 09-25-2024 HIV 1 RNA TESHA+probe [Log #/Vol] [facility] Comment on above: Test not performedRe sult Units: [id number]/mLUnable to calculate result since non-numeric resultobtained for component test.Performed at: - [facility] [id number] Director: Trevin Anguiano MD, Phone: [phone] Platelet countOrdered By: Sue Mcdonald on 09-25-2024 Platelets (Bld) [#/Vol] 222 10*3/uL 150-450 [facility] Potassium (Unsp spec) [Mass/ Vol]Ordered By: Epi Mcdonald on 09-25-2024 Potassium [Moles/Vol] 4.4 mmol/L 3.3-5.1 [facility] Potassium measurement (mass/ volume)Ordered By: Epi Mcdonald on 09-25-2024 Potassium (Unsp spec) [Mass/Vol] 4.4 mmol/L 3.3-5.1 [facility] Quantitative HIV-1 RNA measu rement by PCROrdered By: Epi Mcdonald on 09-25-2024 HIV-1 RNA Ultraquantitative (PCR) < 20 copies/mL . [facility] Comment on above: HIV-1 RNA not detect edThe reportable range for this assay is 20 to 10,000,000copies HIV-1 RNA/mL. RBC Auto (Bld) [#/Vol]Ordere d By: Epi Mcdonald on 09-25-2024 RBC (Bld) [#/Vol] 4.14 10*6/uL Low 4.2-5.4 [facility] RBC (Bld) [#/Vol] 4.25 10*6/uL 3.77-5.28 [facility] Serum creatinine measurement (mass/volume)Ordered By: Epi Mcdonald on 09-25-2024 Creatinine [Mass/Vol] 1.05 mg/dL 0.70-1.20 [facility] Serum glucose measurement (m ass/volume)Ordered By: Epi Mcdonald on 09-25-2024 Glucose [Mass/Vol] 83 mg/dL 70-99 [facility] Serum or plasma calcium hortensia urement (mass/volume)Ordered By: Epi Mcdonald on 09-25-2024 Calcium [Mass/Vol] 9.4 mg/dL 7.6-11.0 [facility] Serum or plasma urea nitroge n measurement (mass/volume)Ordered By: Epi Mcdonald on 09-25-2024 Urea nitrogen [Mass/Vol] 11 mg/dL 4-19 [facility] Sodium levelOrdered By: Chester Mcdonald on 09-25-2024 Sodium [Moles/Vol] 139 mmol/L 133-145 [facility] Vitamin B12 ser/plasOrdered By: Fina Iraheta on 09-25-2024 Cobalamin (Vitamin B12) [Mass/Vol] 280 pg/mL 180-914 [facility] WBC countOrdered By: Epi Mcdonald on 09-25-2024 WBC (Bld) [#/Vol] 8.1 10*3/uL 3.4-10.8 [facility] White blood cell (WBC) count Ordered By: Epi Mcdonald on 09-25-2024 WBC (Bld) [#/Vol] 8.0 10*3/uL 4.4-11.0 [facility] Whole blood hemoglobin measu rement (mass/volume)Ordered By: Epi Mcdonald on 09-25-2024 Hemoglobin (Bld) [Mass/Vol] 14.4 g/dL 11.1-15.9 [facility] Internal Medicine Office Vis iton 09-14-2024 Internal Medicine Office Visit [facility] [address] [place] [address] [place] [address] OFFICE VISIT Date of Service: 09/14/24 MR#: [id number] Acct: [id number] Name: TRACY VAZQUEZ Rep #: [id number] : 1970 Provider: Dr. Fina ravi MD Age/Sex: 54/F Location: [facility] Status: Signed Intake Vital Signs 09/11/24 11:47 [...] past year?: Yes (reports 3 mos ago) [facility] Medical History (Updated 09/14/24 @ 12:43 [...] apartment current occupational status: employed current occupation: [employer] Smoking Status: Current every day smoker (1-1.5 [...] fatigue, fever(s), (more content not included)... Normal [facility] L/S Spine Min 4 Viewson 08-19 L/S Spine Min 4 Views [facility] Imaging Services [address], [place] [id number] L/S Spine Min 4 Views MR#: [id number] Acct: [id number] Name: TRACY VAZQUEZ Rep #: [id number] : 1970 F 54 From: Geoffrey Narayan MD PCP: Dr. Fina Iraheta MD Status: REG CLI Study: L/S Spine Min 4 Views Date of Exam: 09/14/24 Exam# [id number] Ordering Dr: Fina Iraheta MD PROCEDURE: L/S [...] Location: [place] CC: Dr. Fina Iraheta MD Ice Cutter: Signed Normal [facility] BUN/creatinine ratioOrdered By: Fina Iraheta on 09-12-2024 Urea nitrogen/Creatinine [Mass ratio] 13.1 mg/mg 10- [facility] Basic Metabolic Profile (BMP )on 09-12-2024 Anion gap [Moles/Vol] 11 mmol/L Normal 5-15 [facility] Comment on above: Performed By: #### L 500.4050, L501.2450, L100.0100 #### [facility] [address] [place], [address] BUN/CRE 13.1 RATIO Normal - [facility] Comment on above: Performed By: #### L 500.4050, L501.2450, L100.0100 #### [facility] [address] [place], [address] Calcium [Mass/Vol] 9.4 mg/dL Normal 7.6-11.0 [facility] Comment on above: Performed By: #### L 500.4050, L501.2450, L100.0100 #### [facility] [address] [place], [address] Chloride [Moles/Vol] 103 mmol/L Normal 96-108 [facility] Comment on above: Performed By: #### L 500.4050, L501.2450, L100.0100 #### [facility] [address] [place], [address] CO2 [Moles/Vol] 25.3 mmol/L Normal 22.0-29.0 [facility] Comment on above: Performed By: #### L 500.4050, L501.2450, L100.0100 #### [facility] [address] [place], [address] Creatinine [Mass/Vol] 1.2 mg/dL High 0.6-1.0 [facility] Comment on above: Performed By: #### L 500.4050, L501.2450, L100.0100 #### [facility] [address] [place], [address] GFR/1.73 sq M.predicted among non-blacks MDRD (S/P/Bld) [Vol rate/Area] 55 mL/min/{1.73_m2} Low >60 [facility] Comment on above: Result Comment: mL/m in/1.73m2 CKD-EPI Creatinine Equation (2020) Performed By: #### L 500.4050, L501.2450, L100.0100 #### [facility] [address] [place], [address] Glucose [Mass/Vol] 96 mg/dL Normal 70-99 [facility] Comment on above: Performed By: #### L 500.4050, L501.2450, L100.0100 #### [facility] [address] [place], [address] Potassium [Moles/Vol] 4.4 mmol/L Normal 3.3-5.1 [facility] Comment on above: Performed By: #### L 500.4050, L501.2450, L100.0100 #### [facility] [address] [place], [address] Sodium [Moles/Vol] 140 mmol/L Normal 133-145 [facility] Comment on above: Performed By: #### L 500.4050, L501.2450, L100.0100 #### [facility] [address] [place], [address] Urea nitrogen [Mass/Vol] 15 mg/dL Normal 4-19 [facility] Comment on above: Performed By: #### L 500.4050, L501.2450, L100.0100 #### [facility] [address] [place], [address] Carbon dioxide measurementOr dered By: Fina Iraheta on 09-12-2024 CO2 [Moles/Vol] 25.3 mmol/L 22.0-29.0 [facility] Chloride measurementOrdered By: Fina Iraheta on 09-12-2024 Chloride [Moles/Vol] 103 mmol/L 96-108 [facility] Creatinine [Moles/Vol]Ordere d By: Fina Iraheta on 09-12-2024 Creatinine [Mass/Vol] 1.2 mg/dL High 0.6-1.0 [facility] GFR/1.73 sq M.predicted james g non-blacks MDRD (S/P/Bld) [Vol rate/Area]Ordered By: Fina Iraheta on 09-12-2024 Estimated GFR (MDRD) Non-Af Amer 55 Low >60 [facility] Comment on above: mL/min/1.73m2 CKD-EP I Creatinine Equation (2020) Glomerular filtration rate ( GFR) estimation/1.73 sq m using serum, plasma, or whole bOrdered By: Fina Iraheta on 09-12-2024 GFR/1.73 sq M.predicted among non-blacks MDRD (S/P/Bld) [Vol rate/Area] 55 mL/min/{1.73_m2} Low >60 [facility] Comment on above: mL/min/1.73m2 CKD-EP I Creatinine Equation (2020) Serum glucose measurement (m ass/volume)Ordered By: Fina Iraheta on 09-12-2024 Glucose [Mass/Vol] 96 mg/dL 70-99 [facility] Serum or plasma anion gap de termination (moles/volume)Ordered By: Fina Iraheta on 09-12-2024 Anion gap [Moles/Vol] 11 mmol/L 5-15 [facility] Serum or plasma calcium hortensia urement (mass/volume)Ordered By: Fina Iraheta on 09-12-2024 Calcium [Mass/Vol] 9.4 mg/dL 7.6-11.0 [facility] Serum or plasma creatinine m easurement (moles/volume)Ordered By: Fina Iraheta on 09-12-2024 Creatinine [Moles/Vol] 1.2 mg/dL High 0.6-1.0 [facility] Serum or plasma potassium me asurementOrdered By: Fina Iraheta on 09-12-2024 Potassium [Moles/Vol] 4.4 mmol/L 3.3-5.1 [facility] Serum or plasma sodium measu rement (moles/volume)Ordered By: Fina Iraheta on 09-12-2024 Sodium [Moles/Vol] 140 mmol/L 133-145 [facility] Serum or plasma urea nitroge n measurement (mass/volume)Ordered By: Fina Iraheta on 09-12-2024 Urea nitrogen [Mass/Vol] 15 mg/dL 4-[address] [facility] Low Dose [address] Lung Screeningon 09-11-[address] Lung Screening [facility] Imaging Services [address] [place] [address] Lung Screening MR#: [id number] Acct: [id number] Name: TRACY VAZQUEZ Rep #: [id number] : 1970 F 54 From: Elier brumfield MD PCP: Dr. Fina Iraheta MD Status: REG CLI Study: Low Dose CT Lung Screening Date of Exam: 09/11 Exam# [id number] Ordering Dr: Namrata Vazquez STOCK ANALYST STOCK ANALYST -C PROCEDURE: LOW DOSE CT LUNG SCREENING [...] Categories. Addit (more content not included)... Normal [facility] Oncology Visit Reporton 08-19 Oncology Visit Report [facility] [place] [address] [address] [place] [address] OFFICE VISIT Date of Service: 09/11/24 1140 MR#: [id number] Acct: [id number] Name: TRACY VAZQUEZ Rep #: [id number] : 1970 From: Namrata Vazquez NP STOCK ANALYST -C Age/Sex: 54/F Location: [facility] Status: Signed HPI HPI Reviewed eligibility criteria: [...] Dust allergy (more content not included)... Normal [facility] CNPNon 08-22-2024 CNPN Telephone (PULMWS) ----- TRACY VAZQUEZ ([id number]) 1970 F Date Time Provider Department 08/22/24 [...] ear wax removed. EDWARD Magallon Christine M, MAINTENANCE PLANNER.TRANSPORTATION ENGINEERING TECHNICIAN 08/22/2024 12:47 PM Signed Called to discuss [...] Has chest CT scheduled this month at [place] through their lung cancer screening program. Ayad Metcalf, MAINTENANCE PLANNER.Maria Elena Huang RN 08/22/2024 3:49 PM Signed [...] Date Reviewed: 08/17/2024 Reviewed by: Julieta Poole APRN.TRANSPORTATION ENGINEERING TECHNICIAN - Fully Assessed Reason for Visit: Patient Question [1477] Primary Visit Diagnosis:Pulmonary emphysema, unspecified emphysema type (HCC) [J43.9] Order(s):SPIROMETRY WITH DILATOR IF OBSTRUCTED [5652905] Order #: [id number]: 1 FUTURE LUNG VOLUMES [5680670] Order #: [id number]: 1 FUTURE Prescriptions as of 08/22/2024 - [...] Encounter Status:Closed by AYAD METCALF on 08/22/24 [facility] 08-20-2024 CNPN Telephone (LEXAWS) ----- TRACY VAZQUEZ ([id number]) 1970 F Date Time Provider Department 08/20/24 AYAD METCALF During your visit today, we recorded the following information about you: Stephenie Bardales MA 08/20/2024 1:33 PM Signed Patient requesting a phone to review lab results. SOPHIA Robles Amy M, MA 08/21/2024 9:10 AM Signed Patient called again trying to obtain lab results. She can be reached back at [phone]. Stephenie Bardales MA 08/21/2024 11:12 AM Signed Patient phoned to reports symptoms increased today. She is taking mucinex and drinking a lot of water. She is vomiting mucus at this time.She is asking if she should start steroids? SOPHIA Robles Christine M, MAINTENANCE PLANNER.TRANSPORTATION ENGINEERING TECHNICIAN 08/21/2024 11:14 AM Signed Called to discuss [...] Date Reviewed: 08/17/2024 Reviewed by: Julieta Poole APRN.TRANSPORTATION ENGINEERING TECHNICIAN - Fully Assessed Reason for Visit: Results [...] by CLICK, AYAD Cartagena on 08/21/24 Normal [facility] CNOVon 08-17-2024 CNOV Office Visit (UCWSTR ) ----- TRACY VAZQUEZ ([id number]) 1970 F Date Time Provider Department 08/17/24 12:30 PM JULIETA POOLE [facility] During your visit today, we recorded the following information about you: Temperature Pulse Respiration Blood pressure 97 degrees 86/minute 20/minute 114/84 Weight 56 kg Julieta Poole APRN.TRANSPORTATION ENGINEERING TECHNICIAN 08/17/2024 12:30 PM Signed This note was created using [employer]pexPeakriter. Subjective Tracy Vazquez is a 54 year [...] Date Reviewed: 08/17/2024 Reviewed by: Julieta Poole APRN.TRANSPORTATION ENGINEERING TECHNICIAN - Fully Assessed Reason for Visit: Ear [...] Encounter Status:Closed by JULIETA POOLE on 08/17/24 [facility] 08-16 Bahraini house dust mite IgE Qn (S) 0.49 kU/l High <0.35 [facility] Comment on above: Order Comment: Speci men Type: BLOOD SPECIMENOrdering Facility: [facility] Address: [address] [place] [address] [place] [address] Performed By: #### G RTLKS ####[facility] LABCLIA [id number] [place] [address] [place] Bahraini house dust mite IgE RAST class (S) Class 1 Abnormal Class 0 [facility] Comment on above: Order Comment: Speci men Type: BLOOD SPECIMENOrdering Facility: [facility] Address: [address] [place] [address] Performed By: #### G RTLKS ####[facility] LABCLIA [id number] [place] [address] [place] Cat dander IgE Qn (S) <0.35 Normal <0.35 [facility] Comment on above: Order Comment: Speci men Type: BLOOD SPECIMENOrdering Facility: [facility] Address: [address] [place] [address] Performed By: #### G RTLKS ####[facility] LABCLIA [id number] [place] [address] [place] Cat dander IgE RAST class (S) Class 0 Normal Class 0 [facility] Comment on above: Order Comment: Speci men Type: BLOOD SPECIMENOrdering Facility: [facility] Address: [address] [place] [address] Performed By: #### G RTLKS ####[facility] LABCLIA [id number] [place] [address] [place] Common Ragweed IgE Qn (S) <0.35 Normal <0.35 [facility] Comment on above: Order Comment: Speci men Type: BLOOD SPECIMENOrdering Facility: [facility] Address: [address] [place] [address] Performed By: #### G RTLKS ####[facility] LABCLIA [id number] [place] [address] [place] Common Ragweed IgE RAST class (S) Class 0 Normal Class 0 [facility] Comment on above: Order Comment: Speci men Type: BLOOD SPECIMENOrdering Facility: [facility] Address: [address] [place] [address] Performed By: #### G RTLKS ####[facility] LABCLIA [id number] [place] [address] [place] Dog dander IgE Qn (S) <0.35 Normal <0.35 [facility] Comment on above: Order Comment: Speci men Type: BLOOD SPECIMENOrdering Facility: [facility] Address: [address] [place] [address] Performed By: #### G RTLKS ####[facility] LABCLIA [id number] [place] [address] [place] Dog dander IgE RAST class (S) Class 0 Normal Class 0 [facility] Comment on above: Order Comment: Speci men Type: BLOOD SPECIMENOrdering Facility: [facility] Address: [address] [place] [address] Performed By: #### G RTLKS ####[facility] LABCLIA [id number] [place] [address] [place] Goosefoot IgE Qn (S) <0.35 Normal <0.35 [facility] Comment on above: Order Comment: Speci men Type: BLOOD SPECIMENOrdering Facility: [facility] Address: [address] [place] [address] Performed By: #### G RTLKS ####[facility] LABCLIA [id number] [address] [place] Goosefoot IgE RAST class (S) Class 0 Normal Class 0 [facility] Comment on above: Order Comment: Speci men Type: BLOOD SPECIMENOrdering Facility: [facility] Address: [address] [place] [address] Performed By: #### G RTLKS ####[facility] LABCLIA [id number] [place] [address] [place] Kentucky blue grass IgE Qn (S) <0.35 Normal <0.35 [facility] Comment on above: Order Comment: Speci men Type: BLOOD SPECIMENOrdering Facility: [facility] Address: [address] [place] [address] Performed By: #### G RTLKS ####[facility] LABCLIA [id number] [place] [address] [place] blue grass IgE RAST class (S) Class 0 Normal Class 0 [facility] Comment on above: Order Comment: Speci men Type: BLOOD SPECIMENOrdering Facility: [facility] Address: [address] [place] [address] Performed By: #### G RTLKS ####[facility] LABCLIA [id number] [place] [address] [place] Santiago IgE Qn (S) <0.35 Normal <0.35 [facility] Comment on above: Order Comment: Speci men Type: BLOOD SPECIMENOrdering Facility: [facility] Address: [address] [place] [address] Performed By: #### G RTLKS ####[facility] LABCLIA [id number] [place] [address] [place] Santiago IgE RAST class (S) Class 0 Normal Class 0 [facility] Comment on above: Order Comment: Speci men Type: BLOOD SPECIMENOrdering Facility: [facility] Address: [address] [place], [place] [id number] Performed By: #### G RTLKS ####[facility] LABCLIA [id number] [place] [address] [place] IgE Qn (S) <0.35 Normal <0.35 [facility] Comment on above: Order Comment: Speci men Type: BLOOD SPECIMENOrdering Facility: [facility] Address: [address] [place] [address] Performed By: #### G RTLKS ####[facility] LABCLIA [id number] [place] [address] [place] IgE RAST class (S) Class 0 Normal Class 0 [facility] Comment on above: Order Comment: Speci men Type: BLOOD SPECIMENOrdering Facility: [facility] Address: [address] [place] [address] Performed By: #### G RTLKS ####[facility] LABCLIA [id number] [place] [address] [place] ALGN MOLDS GROUPon 5 A. alternata IgE Qn (S) <0.35 Normal <0.35 [facility] Comment on above: Order Comment: Speci men Type: BLOOD SPECIMENOrdering Facility: [facility] Address: [address] [place] [address] Performed By: #### M OLDS ####[facility] LABCLIA [id number] [place] [address] [place] Performed By: #### G RTLKS ####[facility] LABCLIA [id number] [place] [address] [place] A. alternata IgE RAST class (S) Class 0 Normal Class 0 [facility] Comment on above: Order Comment: Speci men Type: BLOOD SPECIMENOrdering Facility: [facility] Address: [address] [place] [address] Performed By: #### M OLDS ####[facility] LABCLIA [id number] [place] [address] [place] Performed By: #### G RTLKS ####[facility] LABCLIA [id number] [place] [id number] [place] A. fumigatus IgE Qn (S) <0.35 Normal <0.35 [facility] Comment on above: Order Comment: Speci men Type: BLOOD SPECIMENOrdering Facility: [facility] Address: [address] [place] [address] Performed By: #### M EMRE ####[facility] LABCLIA [id number] [place] [address] [place] A. fumigatus IgE RAST class (S) Class 0 Normal Class 0 [facility] Comment on above: Order Comment: Speci men Type: BLOOD SPECIMENOrdering Facility: [facility] Address: [address] [place] [address] Performed By: #### M EMRE ####[facility] LABCLIA [id number] [place] [address] [place] C. albicans IgE Qn (S) <0.35 Normal <0.35 [facility] Comment on above: Order Comment: Speci men Type: BLOOD SPECIMENOrdering Facility: [facility] Address: [address] [place] [address] Performed By: #### M EMRE ####[facility] LABCLIA [id number] [place] [address] [place] C. albicans IgE RAST class (S) Class 0 Normal Class 0 [facility] Comment on above: Order Comment: Speci men Type: BLOOD SPECIMENOrdering Facility: [facility] Address: [address] [place] [address] Performed By: #### M EMRE ####[facility] LABCLIA [id number] [place] [address] [place] C. herbarum IgE Qn (S) <0.35 Normal <0.35 [facility] Comment on above: Order Comment: Speci men Type: BLOOD SPECIMENOrdering Facility: [facility] Address: [address] [place] [address] Performed By: #### M EMRE ####[facility] LABCLIA [id number] [address] Performed By: #### G RTLKS ####[facility] LABCLIA [id number] [address] [place] C. herbarum IgE RAST class (S) Class 0 Normal Class 0 [facility] Comment on above: Order Comment: Speci men Type: BLOOD SPECIMENOrdering Facility: [facility] Address: [address] [place] [address] Performed By: #### Mitzi ANDREA ####[facility] LABCLIA [id number] [address] Performed By: #### G RTLKS ####[facility] LABIA [id number] [address] [place] Mucor racemosus IgE Qn (S) <0.35 Normal <0.35 [facility] Comment on above: Order Comment: Speci men Type: BLOOD SPECIMENOrdering Facility: [facility] Address: [address] [place] [address] Performed By: ###Edward ANDREA ####[facility] LABIA [id number] [address] OF [place] Mucor racemosus IgE RAST class (S) Class 0 Normal Class 0 [facility] Comment on above: Order Comment: Speci men Type: BLOOD SPECIMENOrdering Facility: [facility] Address: [address] [place] [address] Performed By: #### Mitzi ANDREA ####[facility] [id number] [address] [place] Mauricio 08-16-2024 ANALILIAN Telephone (MELISAWS) ----- TRACY VAZQUEZ ([id number]) 1970 F Date Time Provider Department 08/16/24 [...] Encounter Status:Closed by MARIANNA ROMEO [facility] ----- TRACY VAZQUEZ ([id number]) 1970 F Date Time Provider Department 08/16/24 [facility] During your visit today, we recorded [...] Status:Closed by ENRIQUE PACHECO on 10/29/24 Normal [facility] IgE SerPl-aCncon 08-16-2024 IgE Qn 72.9 kU/l Normal <114.0 [facility] Comment on above: Order Comment: Speci men Type: BLOOD SPECIMENOrdering Facility: [facility] Address: [address] [place] [address] Performed By: #### 1 9113-0 ####[facility] LABCLIA [id number] [address] STATES OF [facility] Absolute lymphocyte countOrd ered By: Fina Iraheta on 08-13-2024 Lymphocytes Auto (Unsp spec) [#/Vol] 2.19 10*3/uL 0.83-4.51 [facility] Absolute neutrophil countOrd ered By: Fina Iraheta on 08-13-2024 Neutrophils (Bld) [#/Vol] 3.4 10*3/uL 2.0-7.7 [facility] Albumin to globulin ratioOrd ered By: Fina Iraheta on 08-13-2024 Albumin/Globulin [Mass ratio] 0.9 {ratio} 0.9-2.4 [facility] Automated lymphocyte count a s percentage of total leukocytesOrdered By: Fina Iraheta on 08-13-2024 Lymphocytes/100 WBC Auto (Unsp spec) 35.7 % 19-41 [facility] Basophil percentageOrdered B y: Fina Iraheta on 08-13-2024 Basophils/100 WBC (Bld) 0.8 % 0-1 [facility] Bilirubin, totalOrdered By: Fina Iraheta on 08-13-2024 Bilirubin [Mass/Vol] 0.30 mg/dL 0.20-1.00 [facility] Comment on above: For patients on eltr ombopag therapy, use of Dimension [place] TBIL is not recommended. Blood urea nitrogen (BUN)/cr eatinine ratioOrdered By: Fina Iraheta on 08-13-2024 Urea nitrogen/Creatinine [Mass ratio] 12.1 mg/mg 10-20 [facility] CBC W/Diff, Automatedon 07-19 Absolute Lymph 2.19 X10 3/uL Normal 0.83-4.51 [facility] Comment on above: Performed By: #### L 500.4100, L100.0100, L500.4050 ####[facility] [address] [place], [address] Absolute Neut 3.4 X10 3/uL Normal 2.0-7.7 [facility] Comment on above: Performed By: #### L 500.4100, L100.0100, L500.4050 ####[facility] [address] [place], [address] Basophils/100 WBC (Bld) 0.8 % Normal 0-1 [facility] Comment on above: Performed By: #### L 500.4100, L100.0100, L500.4050 ####[facility] [address] [place], [address] Eosinophils/100 WBC (Bld) 1.5 % Normal 0-5 [facility] Comment on above: Performed By: #### L 500.4100, L100.0100, L500.4050 ####[facility] [address] [place], [address] Erythrocyte distribution width (RBC) [Ratio] 12.4 % Normal 11.6-14.6 [facility] Comment on above: Performed By: #### L 500.4100, L100.0100, L500.4050 ####[facility] [address] [place], [address] Hematocrit (Bld) [Volume fraction] 43.7 % Normal 37-47 [facility] Comment on above: Performed By: #### L 500.4100, L100.0100, L500.4050 ####[facility] [address] [place], [address] Hemoglobin (Bld) [Mass/Vol] 14.2 g/dL Normal 12.0-15.0 [facility] Comment on above: Performed By: #### L 500.4100, L100.0100, L500.4050 ####[facility] [address] [place], [address] IG% 0.300 Normal 0.0-0.9 [facility] Comment on above: Result Comment: IG% - Immature Granulocytes (promyelocytes, myelocytes and metamyelocytes) > 1% indicates that a LEFT SHIFT is Present. Performed By: #### L 500.4100, L100.0100, L500.4050 ####[facility] [address] [place], [address] Lymphocytes/100 WBC (Bld) 35.7 % Normal 19-41 [facility] Comment on above: Performed By: #### L 500.4100, L100.0100, L500.4050 ####[facility] [address] [place], [address] MCH (RBC) [Entitic mass] 33.6 pg High 27.0-32.0 [facility] Comment on above: Performed By: #### L 500.4100, L100.0100, L500.4050 ####[facility] [address] [place], [address] MCHC (RBC) [Mass/Vol] 32.5 g/dL Normal 32-36 [facility] Comment on above: Performed By: #### L 500.4100, L100.0100, L500.4050 ####[facility] [address] [place], [address] MCV (RBC) [Entitic vol] 103.3 fL High 81-99 [facility] Comment on above: Performed By: #### L 500.4100, L100.0100, L500.4050 ####[facility] [address] [place], [address] Monocytes/100 WBC (Bld) 6.0 % Normal 0-10 [facility] Comment on above: Performed By: #### L 500.4100, L100.0100, L500.4050 ####[facility] [address] [place], [address] Neutrophils/100 WBC (Bld) 55.7 % Normal 47-70 [facility] Comment on above: Performed By: #### L 500.4100, L100.0100, L500.4050 ####[facility] [address] [place], [address] Nucleated RBC (Bld) [#/Vol] 0 10*3/uL Normal 0-5 [facility] Comment on above: Performed By: #### L 500.4100, L100.0100, L500.4050 ####[facility] [address] [place], [address] Platelet mean volume (Bld) [Entitic vol] 11.2 fL Normal 6.2-12.0 [facility] Comment on above: Performed By: #### L 500.4100, L100.0100, L500.4050 ####[facility] [address] [place], [address] Platelets (Bld) [#/Vol] 250 10*3/uL Normal 150-450 [facility] Comment on above: Performed By: #### L 500.4100, L100.0100, L500.4050 ####[facility] [address] [place], [address] RBC (Bld) [#/Vol] 4.23 10*6/uL Normal 4.2-5.4 [facility] Comment on above: Performed By: #### L 500.4100, L100.0100, L500.4050 ####[facility] [address] [place], [address] RDW SD 47.4 fl High 35.1-43.9 [facility] Comment on above: Performed By: #### L 500.4100, L100.0100, L500.4050 ####[facility] [address] [place], [address] WBC (Bld) [#/Vol] 6.1 10*3/uL Normal 4.4-11.0 [facility] Comment on above: Performed By: #### L 500.4100, L100.0100, L500.4050 ####[facility] [address] [place], [address] Carbon dioxide measurementOr dered By: Fina Iraheta on 08-13-2024 CO2 [Moles/Vol] 28.0 mmol/L 21.0-32.0 [facility] Chloride measurementOrdered By: Fina Iraheta on 08-13-2024 Chloride [Moles/Vol] 108 mmol/L High 98-107 [facility] Comprehensive Metabolic Prof ilon 08-13-2024 Albumin [Mass/Vol] 3.7 g/dL Normal 3.2-5.0 [facility] Comment on above: Performed By: #### L 500.4100, L100.0100, L500.4050 ####[facility] [address] [place], [address] Albumin/Globulin [Mass ratio] 0.9 {ratio} Normal 0.9-2.4 [facility] Comment on above: Performed By: #### L 500.4100, L100.0100, L500.4050 ####[facility] [address] [place], [address] ALK P 92 U/L Normal 45-117 [facility] Comment on above: Performed By: #### L 500.4100, L100.0100, L500.4050 ####[facility] [address] [place], [address] ALT [Catalytic activity/Vol] 13 U/L Normal 13-56 [facility] Comment on above: Performed By: #### L 500.4100, L100.0100, L500.4050 ####[facility] [address] [place], [address] AST [Catalytic activity/Vol] 10 U/L Low 15-37 [facility] Comment on above: Performed By: #### L 500.4100, L100.0100, L500.4050 ####[facility] [address] [place], [address] Bilirubin [Mass/Vol] 0.30 mg/dL Normal 0.20-1.00 [facility] Comment on above: Result Comment: For patients on eltrombopag therapy, use of Dimension [place] TBIL is not recommended. Performed By: #### L 500.4100, L100.0100, L500.4050 ####[facility] [address] [place], [address] BUN/CRE 12.1 RATIO Normal 10-20 [facility] Comment on above: Performed By: #### L 500.4100, L100.0100, L500.4050 ####[facility] [address] [place], [address] CA,Total 9.5 mg/dL Normal 8.5-10.1 [facility] Comment on above: Performed By: #### L 500.4100, L100.0100, L500.4050 ####[facility] [address] [place], [address] Chloride [Moles/Vol] 108 mmol/L High 98-107 [facility] Comment on above: Performed By: #### L 500.4100, L100.0100, L500.4050 ####[facility] [address] [place], [address] CO2 [Moles/Vol] 28.0 mmol/L Normal 21.0-32.0 [facility] Comment on above: Performed By: #### L 500.4100, L100.0100, L500.4050 ####[facility] [address] [place], [address] Creatinine [Mass/Vol] 1.07 mg/dL High 0.55-1.02 [facility] Comment on above: Result Comment: The validity of the calculated GFR GFRAA in patients over 70 years has not been determined. Clinical correlation is essential. Performed By: #### L 500.4100, L100.0100, L500.4050 ####[facility] [address] [place], [address] EST GFR - AA 68 mL/min Normal >60 [facility] Comment on above: Result Comment: Afri can [place] GFR Calc Performed By: #### L 500.4100, L100.0100, L500.4050 ####[facility] [address] [place], [address] GAP 5 Normal 5-15 [facility] Comment on above: Performed By: #### L 500.4100, L100.0100, L500.4050 ####[facility] [address] [place], [address] GFR/1.73 sq M.predicted among non-blacks MDRD (S/P/Bld) [Vol rate/Area] 56 mL/min/{1.73_m2} Low >60 [facility] Comment on above: Result Comment: Non- GFR Calc Performed By: #### L 500.4100, L100.0100, L500.4050 ####[facility] [address] [place], [address] Globulin (S) [Mass/Vol] 3.9 g/dL Normal 2.2-4.2 [facility] Comment on above: Performed By: #### L 500.4100, L100.0100, L500.4050 ####[facility] [address] [place], [address] Glucose [Mass/Vol] 93 mg/dL Normal 74-106 [facility] Comment on above: Performed By: #### L 500.4100, L100.0100, L500.4050 ####[facility] [address] [place], [address] Potassium [Moles/Vol] 4.5 mmol/L Normal 3.5-5.1 [facility] Comment on above: Performed By: #### L 500.4100, L100.0100, L500.4050 ####[facility] [address] [place], [address] Sodium [Moles/Vol] 141 mmol/L Normal 136-145 [facility] Comment on above: Performed By: #### L 500.4100, L100.0100, L500.4050 ####[facility] [address] [place], [address] T PROT 7.6 g/dL Normal 6.4-8.2 [facility] Comment on above: Performed By: #### L 500.4100, L100.0100, L500.4050 ####[facility] [address] [place], [address] Urea nitrogen [Mass/Vol] 13 mg/dL Normal 7-18 [facility] Comment on above: Performed By: #### L 500.4100, L100.0100, L500.4050 ####[facility] [address] [place], [address] Eosinophil percentageOrdered By: Fina Iraheta on 08-13-2024 Eosinophils/100 WBC (Bld) 1.5 % 0-5 [facility] Erythrocyte distribution wid th ratioOrdered By: rubina Iraheta on 08-13-2024 Erythrocyte distribution width (RBC) [Ratio] 12.4 % 11.6-14.6 [facility] Erythrocyte distribution wid th standard deviationOrdered By: rubina Iraheta on 08-13-2024 Erythrocyte distribution width (RBC) [Entitic vol] 47.4 fL High 35.1-43.9 [facility] Erythrocyte distribution width (RBC) [Ratio] 47.4 fl High 35.1-43.9 [facility] Estimated glomerular filtrat ion rate (GFR) AmericanOrdered By: Fina Iraheta on 08-13-2024 Estimated GFR (MDRD) Amer 68 mL/min >60 [facility] Comment on above: GFR Calc Glomerular filtration rate ( GFR) estimationOrdered By: Fina Iraheta on 08-13-2024 Estimated GFR (MDRD) Non-Af Amer 56 mL/min Low >60 [facility] Comment on above: Non- GFR Calc GFR/1.73 sq M.predicted among non-blacks MDRD (S/P/Bld) [Vol rate/Area] 56 mL/min/{1.73_m2} Low >60 [facility] Comment on above: Non- GFR Calc Glucose measurementOrdered B y: Fina Iraheta on 08-13-2024 Glucose [Mass/Vol] 93 mg/dL 74-106 [facility] Hematocrit Auto (Bld) [Volum e fraction]Ordered By: Fina Iraheta on 08-13-2024 Hematocrit (Bld) [Volume fraction] 43.7 % 37-47 [facility] Hemoglobin measurementOrdere d By: Fina Iraheta on 08-13-2024 Hemoglobin (Bld) [Mass/Vol] 14.2 g/dL 12.0-15.0 [facility] High density lipoprotein (HD L) measurementOrdered By: Fina Iraheta on 08-13-2024 Cholesterol in HDL [Mass/Vol] 55 mg/dL >40 [facility] Comment on above: The drugs N-Acetylcy steine and Metamizole may falsely depress this assay. Reference Range HDL <40 mg/dL Low HDL Cholesterol HDL >or= 60 mg/dL High HDL Cholesterol Immature granulocytes/100 WB C Auto (Bld)Ordered By: Fina Iraheta on 08-13-2024 Immature granulocytes/100 WBC (Bld) 0.300 % 0.0-0.9 [facility] Comment on above: IG% - Immature Granu locytes (promyelocytes, myelocytes and metamyelocytes) > 1% indicates that a LEFT SHIFT is Present. Internal Medicine Office Vis iton 08-13-2024 Internal Medicine Office Visit [facility] [address] [place] [address] [place] [address] OFFICE VISIT Date of Service: 08/13/24 MR#: [id number] Acct: [id number] Name: TRACY VAZQUEZ Rep #: [id number] : 1970 Provider: Dr. 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 Ob Gyn Required: No Accompanied by: Self Is patient [...] SNOW 1 MONTH AGO; RIGHT KNEE PAIN-RESOLVED) [facility] Medical History (Updated 08/13/24 @ 17:33 [...] apartment current occupational status: employed current occupation: [employer] Smoking Status: Current every day smoker tobacco type: cigarettes Tobacco: How many years used: 40 alcohol intake: former year quit: 2014 substance use type: former substance user and crack/cocaine what type of physical activity do you participate in: walking frequency: 3-4 times per week seatbelt use: always do you feel safe at home: Yes HPI HPI 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 No significant acute concerns. Chronic history of HIV, follows up with infectious disease. Currently on Biktarvy, she states that her levels are undetectable. Also history of COPD, follows up with pulmonary at the [facility]. Recently started on Spiriva which she has [...] pain on (more content not included)... Normal [facility] Laboratory - Chemistry and C hemistry - challengeOrdered By: Fina Iraheta on 08-13-2024 AST [Catalytic activity/Vol] 10 U/L Low 15-37 [facility] Lipid Profileon 08-13-2024 Cholesterol [Mass/Vol] 129 mg/dL Normal 200 [facility] Comment on above: Result Comment: <200 mg/dL Desirable 200-240 mg/dL Borderline >240 mg/dL High Risk Performed By: #### L 500.4100, L100.0100, L500.4050 ####[facility] [address] [place], [address] Cholesterol in HDL [Mass/Vol] 55 mg/dL Normal [facility] Comment on above: Result Comment: The drugs N-Acetylcysteine and Metamizole may falsely depress this assay. Reference Range HDL <40 mg/dL Low HDL Cholesterol HDL >or= 60 mg/dL High HDL Cholesterol Performed By: #### L 500.4100, L100.0100, L500.4050 ####[facility] [address] [place], [address] Cholesterol in LDL [Mass/Vol] 48 mg/dL Normal 0-130 [facility] Comment on above: Performed By: #### L 500.4100, L100.0100, L500.4050 ####[facility] [address] [place], [address] Cholesterol in VLDL [Mass/Vol] 26 mg/dL Normal 5-40 [facility] Comment on above: Performed By: #### L 500.4100, L100.0100, L500.4050 ####[facility] [address] [place], [address] Triglyceride [Mass/Vol] 130 mg/dL Normal [facility] Comment on above: Result Comment: The drugs N-Acetylcysteine and Metamizole may falsely depress this assay. Serum Triglycerides Reference Interval Normal <150 mg/dL Borderline high 150 - 199 mg/dL High 200 - 499 mg/dL Very High > or = 500 mg/dL Performed By: #### L 500.4100, L100.0100, L500.4050 ####[facility] [address] [place], [address] Low density lipoprotein (LDL ) cholesterol measurementOrdered By: Fina Iraheta on 08-13-2024 Cholesterol in LDL [Mass/Vol] 48 mg/dL 0-130 [facility] Lymphocytes Auto (Unsp spec) [#/Vol]Ordered By: Fina Iraheta on 08-13-2024 Lymphocytes (Bld) [#/Vol] 2.19 10*3/uL 0.83-4.51 [facility] Lymphocytes/100 WBC Auto (Un sp spec)Ordered By: Fina Iraheta on 08-13-2024 Lymphocytes/100 WBC (Bld) 35.7 % 19-41 [facility] MCV (mean corpuscular volume ) determinationOrdered By: Fina Iraheta on 08-13-2024 MCV (RBC) [Entitic vol] 103.3 fL High 81-99 [facility] Mean corpuscular hemoglobin (MCH) determinationOrdered By: Fina Iraheta on 08-13-2024 MCH (RBC) [Entitic mass] 33.6 pg High 27.0-32.0 [facility] Mean corpuscular hemoglobin concentration (MCHC) determinationOrdered By: Fina Iraheta on 08-13-2024 MCHC (RBC) [Mass/Vol] 32.5 g/dL 32-36 [facility] Mean platelet volume determi nationOrdered By: Fnia Iraheta on 08-13-2024 Platelet mean volume (Bld) [Entitic vol] 11.2 fL 6.2-12.0 [facility] Monocyte percentageOrdered B y: Fina Iraheta on 08-13-2024 Monocytes/100 WBC (Bld) 6.0 % 0-10 [facility] Neutrophil percentageOrdered By: Fina Iraheta on 08-13-2024 Neutrophils/100 WBC (Bld) 55.7 % 47-70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 By: Dr. Mcdonald on 08-25-2022 N. gonorrhoeae DNA TESHA+probe Ql (Cervical mucus) Negative Negative [facility] No Panel InformationOrdered By: Dr. Mcdonald on 08-25-2022 HIV-1 RNA Ultraquantitative (PCR) < 20 copies/mL . [facility] Comment on above: HIV-1 RNA not detect edThe reportable range for this assay is 20 to 10,000,000copies HIV-1 RNA/mL. Nucleated RBC/100 WBC Auto ( Bld) [Ratio]Ordered By: Dr. Mcdonald on 08-25-2022 Nucleated RBC/100 WBC (Bld) [Ratio] TNP [facility] Comment on above: Test not performed Percent of cells positive fo r CD4 antigenOrdered By: Dr. Mcdonald on 08-25-2022 CD3+CD4+ (T4 helper) cells/100 cells (Unsp spec) 54.4 % 30.8-58.5 [facility] Plasma HIV 1 RNA viral load by probe and target amplification method (log number/voluOrdered By: Dr. Mcdonald on 08-25-2022 HIV 1 RNA TESHA+probe [Log #/Vol] TNP [facility] Comment on above: Test not performedRe sult Units: [id number]/mLUnable to calculate result since non-numeric resultobtained for component test.Performed at: [facility] - [facility] [id number] Director: Trevin Anguiano MD, Phone: [phone] Platelets bldOrdered By: Dr. Mcdonald on 08-25-2022 Platelets (Bld) [#/Vol] 192 10*3/uL 150-450 [facility] RBC Auto (Bld) [#/Vol]Ordere d By: Dr. Mcdonald on 08-25-2022 RBC (Bld) [#/Vol] 4.02 10*6/uL 3.77-5.28 [facility] Serum Treponema species anti body detectionOrdered By: Dr. Mcdonald on 08-25-2022 Treponema sp Ab Ql (S) Non-Reactive [facility] Thin prep Papanicolaou smear with manual screeningOrdered By: Dr. Mcdonald on 08-25-2022 Thin prep Papanicolaou smear with manual screening 34.3 pg 26.6-33.0 [facility] Thin prep Papanicolaou smear with manual screening 5 % Not Estab. [facility] CBC panel Auto (Bld)on 08-02 Erythrocyte distribution width (RBC) [Ratio] 12.4 % 11.5 - 15.0 % [facility] Hematocrit (Bld) [Volume fraction] 46.1 % High 36.0 - 46.0 % [facility] Hemoglobin (Bld) [Mass/Vol] 15.3 g/dL 11.5 - 15.5 g/dL [facility] MCH (RBC) [Entitic mass] 34.4 pg High 26.0 - 34.0 pg [facility] MCHC (RBC) [Mass/Vol] 33.2 g/dL 30.5 - 36.0 g/dL [facility] MCV (RBC) [Entitic vol] 103.6 fL High 80.0 - 100.0 fL [facility] Nucleated RBC (Bld) [#/Vol] <0.01 k/uL [facility] Platelet mean volume (Bld) [Entitic vol] 11.7 fL 9.0 - 12.7 fL [facility] Platelets (Bld) [#/Vol] 224 10*3/uL 150 - 400 k/uL [facility] RBC (Bld) [#/Vol] 4.45 10*6/uL 3.90 - 5.2 0 m/uL [facility] WBC (Bld) [#/Vol] 6.16 10*3/uL 3.70 - 11. 00 k/uL [facility] SPIROMETRY - BASELINE AND PO ST DILATORon 07-20-2022 ERV BOX (L) 1.28 L [facility] BCB46-89% POST (L/S) 1.80 L/S [facility] OJN48-97% PRE (L/S) 1.24 L/S [facility] FEV1 PRE (L) 2.08 L [facility] FEV1/FVC POST (%) 75 % [facility] FEV1/FVC PRE (%) 69 % [facility] FEV1_POST (L) 2.25 L [facility] FRC Box (L) 2.96 L [facility] FVC POST (L) 3.02 L [facility] FVC PRE (L) 3.03 L [facility] IC BOX (L) 1.66 L [facility] PEF POST (L/S) 4.08 L/S [facility] PEF PRE (L/S) 4.14 L/S [facility] RV Box (L) 1.73 L [facility] RV/TLC Box (%) 36 % [facility] TLC Box (L) 4.76 L [facility] VC (L) BOX 3.10 L [facility] UA DIP, URINE (POC)on 2021 BILIRUBIN UA (POCT) Negative Negative [facility] CLARITY UA (POCT) Slightly Cloudy Cl [facility] COLOR UA (POCT) Light yellow [facility] GLUCOSE UA (POCT) Negative Negative mg/dL [facility] HEMOGLOBIN/BLOOD UA (POCT) Negative Negative [facility] KETONE UA (POCT) Negative Negative mg/dL [facility] LEUKOCYTES UA (POCT) Negative Negative [facility] NITRITE UA (POCT) Negative Negative [facility] PH UA (POCT) 6.0 4.5 - 8.0 [facility] Protein Ql (U) Negative Negative mg/dL [facility] SPECIFIC GRAVITY UA (POCT) 1.010 1.005 - 1.030 [facility] UROBILINOGEN UA (POCT) 0.2 E.U./dL Normal E.U./dL [facility] Absolute lymphocyte counton 01-26-2022 Lymphocytes Auto (Unsp spec) [#/Vol] 2.67 10*3/uL 0.83-4.51 [facility] Work Phone: [phone] Basophil percentageon 2021 Basophils/100 WBC (Bld) 0.7 % 0-1 [facility] Work Phone: [phone] C. trachomatis DNA TESHA+probe Ql (Unsp spec) Negative Negative [facility] Work Phone: Eosinophils/100 WBC (Bld) 3.3 % 0-5 [facility] Work Phone: Neutrophils (Bld) [#/Vol] 3.9 10*3/uL 2.0-7.7 [facility] Work Phone: Neutrophils/100 WBC (Bld) 53.6 % 47-70 [facility] Work Phone: WBC (Bld) [#/Vol] 7.3 10*3/uL 4.4-11.0 [facility] Work Phone: [phone] Bilirubin [Mass/Vol] 0.50 mg/dL 0.20-1.00 [facility] Work Phone: [phone] Comment on above: For patients on eltr ombopag therapy, use of Dimension [place] TBIL is not recommended. Chloride [Moles/Vol] 107 mmol/L 98-107 [facility] Work Phone: Cholesterol [Mass/Vol] 137 mg/dL <200 [facility] Work Phone: Comment on above: <200 mg/dL Desirable 200-240 mg/dL Borderline >240 mg/dL High Risk Glucose [Mass/Vol] 73 mg/dL 74-106 [facility] Work Phone: [phone] Potassium [Moles/Vol] 3.9 mmol/L 3.5-5.1 [facility] Work Phone: [phone] Protein [Mass/Vol] 7.1 g/dL 6.4-8.2 [facility] Work Phone: [phone] Sodium [Moles/Vol] 140 mmol/L 136-145 [facility] Work Phone: [phone] Triglyceride [Mass/Vol] 112 mg/dL <199 [facility] Work Phone: Comment on above: The drugs N-Acetylcy steine and Metamizole may falsely depress this assay.Serum Triglycerides Reference Interval Normal <150 mg/dL Borderline high 150 - 199 mg/dL High 200 - 499 mg/dL Very High > or = 500 mg/dL Blood erythrocytes count (nu mber/volume)on 01-26-2022 RBC (Bld) [#/Vol] 3.86 10*6/uL 4.2-5.4 [facility] Work Phone: Blood hemoglobin measurement (mass/volume)on 01-26-2022 Hemoglobin (Bld) [Mass/Vol] 13.6 g/dL 12.0-15.0 [facility] Work Phone: Blood lymphocytes/100 leukoc yteson 01-26-2022 Lymphocytes/100 WBC (Bld) 36.6 % 19-41 [facility] Work Phone: Blood monocytes/100 leukocyt eson 01-26-2022 Monocytes/100 WBC (Bld) 5.5 % 0-10 [facility] Work Phone: Blood platelet mean volumeon 01-26-2022 Platelet mean volume (Bld) [Entitic vol] 11.2 fL 6.2-12.0 [facility] Work Phone: Determination of erythrocyte mean corpuscular volume (MCV)on 01-26-2022 MCV (RBC) [Entitic vol] 104.9 fL 81-99 [facility] Work Phone: [phone] Hematocrit Auto (Bld) [Volum e fraction]on 01-26-2022 Hematocrit (Bld) [Volume fraction] 40.5 % 37-47 [facility] Work Phone: [phone] Laboratory - Chemistry and C hemistry - challengeon 01-26-2022 ALP [Catalytic activity/Vol] 58 U/L 45-117 [facility] Work Phone: [phone] ALT [Catalytic activity/Vol] 18 U/L 13-56 [facility] Work Phone: [phone] CO2 [Moles/Vol] 28.0 mmol/L 21.0-32.0 [facility] Work Phone: [phone] Globulin (S) [Mass/Vol] 3.5 g/dL 2.2-4.2 [facility] Work Phone: [phone] Urea nitrogen/Creatinine [Mass ratio] 10.0 mg/mg 10-20 [facility] Work Phone: [phone] Laboratory - Hematology and Cell countson 01-26-2022 Erythrocyte distribution width (RBC) [Entitic vol] 49.5 fL 35.1-43.9 [facility] Work Phone: [phone] Erythrocyte distribution width (RBC) [Ratio] 12.8 % 11.6-14.6 [facility] Work Phone: [phone] Immature granulocytes/100 WBC (Bld) 0.300 % 0.0-0.9 [facility] Work Phone: Comment on above: IG% - Immature Granu locytes (promyelocytes, myelocytes and metamyelocytes) > 1% indicates that a LEFT SHIFT is Present. MCH (RBC) [Entitic mass] 35.2 pg 27.0-32.0 [facility] Work Phone: [phone] Nucleated RBC/100 WBC (Bld) [Ratio] 0 % 0-5 [facility] Work Phone: MCHC Auto (RBC) [Mass/Vol]on 01-26-2022 MCHC (RBC) [Mass/Vol] 33.6 g/dL 32-36 [facility] Work Phone: Neisseria gonorrhoeae detect ion by PCRon 01-26-2022 N. gonorrhoeae DNA TESHA+probe Ql (Cervical mucus) Negative Negative [facility] Work Phone: No Panel Informationon 01-26 Hepatitis C Antibody Non-Reactive Nonreactive [facility] Work Phone: Comment on above: Non Reactive: < 0.8 Equivocal: >/= 0.8 to < 1.0 Reactive: >/= 1.0The CDC recommends that a reactive/equivocal HCV antibody result be followed up by the HCV Nucleic Acid Amplificationtest (821056) HIV-1 RNA Ultraquantitative (PCR) < 20 copies/mL . [facility] Work Phone: Comment on above: HIV-1 RNA not detect edThe reportable range for this assay is 20 to 10,000,000copies HIV-1 RNA/mL. Miscellaneous Test See comment [facility] Work Phone: Comment on above: TEST RESULT LIMITST- Cell Activation, CD8 SubsetsAbsolute CD 3 2101 /uL 622-2402% CD 3 Pos. Lymph. 80.8 % 57.5-86.2Absolute CD 4 Griffin 1404 /uL 359-1519% CD 4 Pos. Lymph. 54.0 % 30.8-58.5Absolute CD 8 (Supp) 681 /uL 109-897% CD 8 Pos. Lymph. 26.2 % 12.0-35.5CD4/CD8 Ratio 2.06 0.92-3.72Abs.CD8+HLA-DR+Lymph 94 /uL 0-117This test was developed and its performance characteristicsdetermined by [facility]. It has not been cleared or approvedby the Food and Drug Administration.% CD8+HLA-DR+ Lymphs 3.6 % 0.0-4.9This test was developed and its performance characteristicsdetermined by [facility]. It has not been cleared or approvedby the Food and Drug Administration.% CD3+CD25+ Lymphs 37.3 High % 4.9-25.9This test was developed and its performance characteristicsdetermined by [facility]. It has not been cleared or approvedby the Food and Drug Administration.Abs.CD3+CD25+ Lymphs 970 High /uL 79-535This test was developed and its performance characteristicsdetermined by [facility]. It has not been cleared or approvedby the Food and Drug Administration.% CD8+CD38+ Lymphs 4.7 % 0.0-17.7This test was developed and its performance characteristicsdetermined by [facility]. It has not been cleared or approvedby the Food and Drug Administration.Abs.CD8+CD38+ Lymphs 122 /uL 0-381This test was developed and its performance characteristicsdetermined by [facility]. It has not been cleared or approvedby [...] (Abs) 0.0 x10E3/uL 0.0-0.1 TESTING PERFORMED AT [facility]. ORIGINAL REPORT ON FILE IN LAB CONTAINS ADDITIONAL TEST SITE INFORMATION. Estimated GFR (MDRD) Amer 74 mL/min >60 [facility] Work Phone: Comment on above: GFR Calc Estimated GFR (MDRD) Non-Af Amer 62 mL/min >60 [facility] Work Phone: Comment on above: Non- GFR Calc Plasma HIV 1 RNA viral load by probe and target amplification method (log number/voluon 01-26-2022 HIV 1 RNA TESAH+probe [Log #/Vol] TNP [facility] Work Phone: Comment on above: Test not performedRe sult Units: aun15xbyq/mLUnable to calculate result since non-numeric resultobtained for component test.Performed at: [address] [id number] Director: Trevin Anguiano MD, Phone: [phone] Platelets bldon 01-26-2022 Platelets (Bld) [#/Vol] 213 10*3/uL 150-450 [facility] Work Phone: Serum Treponema species anti body detectionon 01-26-2022 Treponema sp Ab Ql (S) Non-Reactive [facility] Work Phone: Serum or plasma albumin hortensia urement (mass/volume)on 01-26-2022 Albumin [Mass/Vol] 3.6 g/dL 3.2-5.0 [facility] Work Phone: Serum or plasma albumin/glob ulin mass ratioon 01-26-2022 Albumin/Globulin [Mass ratio] 1.0 {ratio} 0.9-2.4 [facility] Work Phone: Serum or plasma calcium hortensia urement (mass/volume)on 01-26-2022 Calcium [Mass/Vol] 8.8 mg/dL 8.5-10.1 [facility] Work Phone: Serum or plasma cholesterol in HDL measurement (mass/volume)on 01-26-2022 Cholesterol in HDL [Mass/Vol] 59 mg/dL >40 [facility] Work Phone: Comment on above: The drugs N-Acetylcy steine and Metamizole may falsely depress this assay. Reference Range HDL <40 mg/dL Low HDL Cholesterol HDL >or= 60 mg/dL High HDL Cholesterol Serum or plasma cholesterol in VLDL measurement (mass/volume)on 01-26-2022 Cholesterol in VLDL [Mass/Vol] 22 mg/dL 5-40 [facility] Work Phone: Serum or plasma creatinine m easurement (mass/volume)on 01-26-2022 Creatinine [Mass/Vol] 1.00 mg/dL 0.55-1.02 [facility] Work Phone: Comment on above: The validity of the calculated GFR & GFRAA in patients over 70 years has not been determined. Clinical correlation is essential. Serum or plasma low density lipoprotein (LDL) cholesterol measurement (mass/volume)on 01-26-2022 Cholesterol in LDL [Mass/Vol] 56 mg/dL 0-130 [facility] Work Phone: Serum or plasma urea nitroge n measurement (mass/volume)on 01-26-2022 Urea nitrogen [Mass/Vol] 10 mg/dL 7-18 [facility] Work Phone: Thin prep Papanicolaou smear with manual screeningon 01-26-2022 Thin prep Papanicolaou smear with manual screening 16 U/L 15-37 [facility] Work Phone: Thin prep Papanicolaou smear with manual screening 5 5-15 [facility] Work Phone: XR CHEST 2V FRONTAL/LATon [facility] XR Chest PA and Lateralon IMPRESSION: No acute radiographic abnormality. Ice Cutter: REJI Transcribe Date/Time: Jan 26 2022 12:04P [...] Unremarkable. IMPRESSION IMPRESSION: No acute radiographic abnormality. Ice Cutter: [facility] Transcribe Date/Time: Jan 26 2022 12:04P Dictated by : KENDELL GREY MD This examination was interpreted and the report reviewed and electronically signed by: KENDELL GREY MD on Jan 26 2022 12:05PM EST [facility] Radiology Study observation (narrative) [facility] XR Chest PA and LateralOrder ed By: [facility] Provider on 01-26-2022 [facility] Vital Signs Date Time Vital Sign Value Performing Clinician [facility] 05-13-2025 10:43-0400 Body height 157.[address] Fina Iraheta MD Work Phone: [facility] 05-13-2025 10:43-0400 Body mass index (BMI) [Ratio] 22.3 kg/m2 Dr. Fina Iraheta MD Work Phone: [facility] 05-13-2025 10:43-0400 Body temperature 98 [degF] Dr. Fina Iraheta MD Work Phone: [facility] 05-13-2025 10:43-0400 Body weight 55.[address] Fina Iraheta MD Work Phone: [facility] 05-13-2025 10:43-0400 Diastolic blood pressure 54 mm[Hg] Dr. Fina Iraheta MD Work Phone: [facility] 05-13-2025 10:43-0400 Heart rate 80 /min Dr. Fina Iraheta MD Work Phone: [facility] 05-13-2025 10:43-0400 Respiratory rate 18 /min Dr. Fina Iraheta MD Work Phone: [facility] 05-13-2025 10:43-0400 SaO2% (BldA) [Mass fraction] 97 % Dr. Fina Iraheta MD Work Phone: [facility] 05-13-2025 10:43-0400 Systolic blood pressure 102 mm[Hg] Dr. Fina Iraheta MD Work Phone: [facility] 05-02-2025 09:59-0400 Body mass index (BMI) [Ratio] 22.2 kg/m2 Dr. Fina Iraheta MD Work Phone: [facility] 05-02-2025 09:59-0400 Body temperature 97.5 [degF] Dr. Fina Iraheta MD Work Phone: [facility] 05-02-2025 09:59-0400 Body weight 55.[address] Fina Iraheta MD Work Phone: [facility] 05-02-2025 09:59-0400 Diastolic blood pressure 83 mm[Hg] Dr. Fina Iraheta MD Work Phone: [facility] 05-02-2025 09:59-0400 Heart rate 67 /min Dr. Fina Iraheta MD Work Phone: [facility] 05-02-2025 09:59-0400 Respiratory rate 18 /min Dr. Fina Iraheta MD Work Phone: [facility] 05-02-2025 09:59-0400 SaO2% (BldA) [Mass fraction] 96 % Dr. Fina Iraheta MD Work Phone: [facility] 05-02-2025 09:59-0400 Systolic blood pressure 116 mm[Hg] Dr. Fina Iraheta MD Work Phone: [facility] 03-15-2025 20:08-0400 Body temperature 98 [degF] Dr. Fina Iraheta MD Work Phone: [facility] 03-15-2025 20:08-0400 Diastolic blood pressure 80 mm[Hg] Dr. Fina Iraheta MD Work Phone: [facility] 03-15-2025 20:08-0400 Heart rate 76 /min Dr. Fina Iraheta MD Work Phone: [facility] 03-15-2025 20:08-0400 Respiratory rate 18 /min Dr. Fina Iraheta MD Work Phone: [facility] 03-15-2025 20:08-0400 SaO2% (BldA) [Mass fraction] 96 % Dr. Fina Iraheta MD Work Phone: [facility] 03-15-2025 20:08-0400 Systolic blood pressure 118 mm[Hg] Dr. Fina Iraheta MD Work Phone: [facility] 03-15-2025 17:06-0400 Body height 157.[address] Fina Iraheta MD Work Phone: [facility] 03-15-2025 17:06-0400 Body mass index (BMI) [Ratio] 22.4 kg/m2 Dr. Fina Iraheta MD Work Phone: [facility] 03-15-2025 17:06-0400 Body weight 55.[address] Fina Iraheta MD Work Phone: [facility] 03-15-2025 15:40-0400 Body height 157.[address] Fina Iraheta MD Work Phone: [facility] 03-15-2025 15:40-0400 Body mass index (BMI) [Ratio] 22.4 kg/m2 Dr. Fina Iraheta MD Work Phone: [facility] 03-15-2025 15:40-0400 Body temperature 98.2 [degF] Dr. Fina Iraheta MD Work Phone: [facility] 03-15-2025 15:40-0400 Body weight 55.[address] Fina Iraheta MD Work Phone: [facility] 03-15-2025 15:40-0400 Diastolic blood pressure 93 mm[Hg] Dr. Fina Iraheta MD Work Phone: [facility] 03-15-2025 15:40-0400 Heart rate 86 /min Dr. Fina Iraheta MD Work Phone: [facility] 03-15-2025 15:40-0400 Respiratory rate 16 /min Dr. Fina Iraheta MD Work Phone: [facility] 03-15-2025 15:40-0400 SaO2% (BldA) [Mass fraction] 100 % Dr. Fina Iraheta MD Work Phone: [facility] 03-15-2025 15:40-0400 Systolic blood pressure 117 mm[Hg] Dr. Fina Iraheta MD Work Phone: [facility] 03-15-2025 14:56-0400 Body mass index (BMI) [Ratio] 22.7 kg/m2 Rubina Campos MD Work Phone: [facility] 03-15-2025 14:56-0400 Body temperature 98.91 [degF] Rubina Campos MD Work Phone: [facility] 03-15-2025 14:56-0400 Body weight 56.3 kg Rubina Campos MD Work Phone: [facility] 03-15-2025 14:56-0400 Diastolic blood pressure 70 mm[Hg] Rbuina Campos MD Work Phone: [facility] 03-15-2025 14:56-0400 Heart rate 94 /min Rubina Campos MD Work Phone: [facility] 03-15-2025 14:56-0400 Respiratory rate 16 /min Rubina Campos MD Work Phone: [facility] 03-15-2025 14:56-0400 SaO2% (BldA) [Mass fraction] 98 % Rubina Campos MD Work Phone: [facility] 03-15-2025 14:56-0400 Systolic blood pressure 118 mm[Hg] Rubina Campos MD Work Phone: [facility] 03-08-2025 13:28-0400 Body height 157.[address] Fina Iraheta MD Work Phone: [facility] 03-08-2025 13:28-0400 Body mass index (BMI) [Ratio] 22.8 kg/m2 Dr. Fina Iraheta MD Work Phone: [facility] 03-08-2025 13:28-0400 Body temperature 97.7 [degF] Dr. Fina Iraheta MD Work Phone: [facility] 03-08-2025 13:28-0400 Body weight 56.[address] Fina Iraheta MD Work Phone: [facility] 03-08-2025 13:28-0400 Diastolic blood pressure 84 mm[Hg] Dr. Fina Iraheta MD Work Phone: [facility] 03-08-2025 13:28-0400 Heart rate 64 /min Dr. Fina Iraheta MD Work Phone: [facility] 03-08-2025 13:28-0400 Respiratory rate 18 /min Dr. Fina Iraheta MD Work Phone: [facility] 03-08-2025 13:28-0400 SaO2% (BldA) [Mass fraction] 99 % Dr. Fina Iraheta MD Work Phone: [facility] 03-08-2025 13:28-0400 Systolic blood pressure 132 mm[Hg] Dr. Fina Iraheta MD Work Phone: [facility] 03-08-2025 11:30-0400 Body temperature 98 [degF] Dr. Fina Iraheta MD Work Phone: [facility] 03-08-2025 11:30-0400 Diastolic blood pressure 79 mm[Hg] Dr. Fina Iraheta MD Work Phone: [facility] 03-08-2025 11:30-0400 Heart rate 60 /min Dr. Fina Iraheta MD Work Phone: [facility] 03-08-2025 11:30-0400 Respiratory rate 16 /min Dr. Fina Iraheta MD Work Phone: [facility] 03-08-2025 11:30-0400 SaO2% (BldA) [Mass fraction] 100 % Dr. Fina Iraheta MD Work Phone: [facility] 03-08-2025 11:30-0400 Systolic blood pressure 141 mm[Hg] Dr. Fina Iraheta MD Work Phone: [facility] 03-08-2025 08:41-0400 Body height 157.[address] Fina Iraheta MD Work Phone: [facility] 03-08-2025 08:41-0400 Body mass index (BMI) [Ratio] 22.4 kg/m2 Dr. Fina Iraheta MD Work Phone: [facility] 03-08-2025 08:41-0400 Body weight 55.[address] Fina Iraheta MD Work Phone: [facility] 03-08-2025 08:16-0400 Body mass index (BMI) [Ratio] 22.57 kg/m2 Ginny Swank MAINTENANCE PLANNER.TRANSPORTATION ENGINEERING TECHNICIAN Work Phone: [facility] 03-08-2025 08:16-0400 Body temperature 96.69 [degF] Ginny Swank MAINTENANCE PLANNER.TRANSPORTATION ENGINEERING TECHNICIAN Work Phone: [facility] 03-08-2025 08:16-0400 Body weight 56 kg Ginny Swank MAINTENANCE PLANNER.TRANSPORTATION ENGINEERING TECHNICIAN Work Phone: [facility] 03-08-2025 08:16-0400 Diastolic blood pressure 87 mm[Hg] Ginny Swank MAINTENANCE PLANNER.TRANSPORTATION ENGINEERING TECHNICIAN Work Phone: [facility] 03-08-2025 08:16-0400 Heart rate 63 /min Ginny Swank MAINTENANCE PLANNER.TRANSPORTATION ENGINEERING TECHNICIAN Work Phone: [facility] 03-08-2025 08:16-0400 Respiratory rate 22 /min Ginny Swank MAINTENANCE PLANNER.TRANSPORTATION ENGINEERING TECHNICIAN Work Phone: [facility] 03-08-2025 08:16-0400 SaO2% (BldA) [Mass fraction] 99 % Ginny Swank MAINTENANCE PLANNER.TRANSPORTATION ENGINEERING TECHNICIAN Work Phone: [facility] 03-08-2025 08:16-0400 Systolic blood pressure 121 mm[Hg] Ginny Swank MAINTENANCE PLANNER.TRANSPORTATION ENGINEERING TECHNICIAN Work Phone: [facility] 02-15-2025 10:24-0400 Body height 157.[address] Fina Iraheta MD Work Phone: [facility] 02-15-2025 10:24-0400 Body mass index (BMI) [Ratio] 22.4 kg/m2 Dr. Fina Iraheta MD Work Phone: [facility] 02-15-2025 10:24-0400 Body temperature 97.5 [degF] Dr. Fina Iraheta MD Work Phone: [facility] 02-15-2025 10:24-0400 Body weight 55.[address] Fina Iraheta MD Work Phone: [facility] 02-15-2025 10:24-0400 Diastolic blood pressure 60 mm[Hg] Dr. Fina Iraheta MD Work Phone: [facility] 02-15-2025 10:24-0400 Heart rate 92 /min Dr. Fina Iraheta MD Work Phone: [facility] 02-15-2025 10:24-0400 Respiratory rate 16 /min Dr. Fina Iraheta MD Work Phone: [facility] 02-15-2025 10:24-0400 SaO2% (BldA) [Mass fraction] 91 % Dr. Fina Iraheta MD Work Phone: [facility] 02-15-2025 10:24-0400 Systolic blood pressure 120 mm[Hg] Dr. Fina Iraheta MD Work Phone: [facility] 02-07-2025 12:29-0400 Body height 157.[address] Fina Iraheta MD Work Phone: [facility] 02-07-2025 12:00-0400 Body temperature 97 [degF] Dr. Fina Iraheta MD Work Phone: [facility] 02-07-2025 12:00-0400 Diastolic blood pressure 83 mm[Hg] Dr. Fina Iraheta MD Work Phone: [facility] 02-07-2025 12:00-0400 Heart rate 90 /min Dr. Fina Iraheta MD Work Phone: [facility] 02-07-2025 12:00-0400 Respiratory rate 18 /min Dr. Fina Iraheta MD Work Phone: [facility] 02-07-2025 12:00-0400 SaO2% (BldA) [Mass fraction] 99 % Dr. Fina Iraheta MD Work Phone: [facility] 02-07-2025 12:00-0400 Systolic blood pressure 114 mm[Hg] Dr. Fina Iraheta MD Work Phone: [facility] 02-07-2025 11:10-0400 Body height 157.[address] Fina Iraheta MD Work Phone: [facility] 02-07-2025 11:10-0400 Body mass index (BMI) [Ratio] 22.3 kg/m2 Dr. Fina Iraheta MD Work Phone: [facility] 02-07-2025 11:10-0400 Body weight 55.[address] Fina Iraheta MD Work Phone: [facility] 12-28-2024 12:28-0400 Body mass index (BMI) [Ratio] 21.85 kg/m2 Chantel Pablo MAINTENANCE PLANNER.TRANSPORTATION ENGINEERING TECHNICIAN Work Phone: [facility] 12-28-2024 12:28-0400 Body temperature 97.39 [degF] Chantel Pablo MAINTENANCE PLANNER.TRANSPORTATION ENGINEERING TECHNICIAN Work Phone: [facility] 12-28-2024 12:28-0400 Body weight 54.2 kg Chantel Shah MAINTENANCE PLANNER.TRANSPORTATION ENGINEERING TECHNICIAN Work Phone: [facility] 12-28-2024 12:28-0400 Diastolic blood pressure 86 mm[Hg] Chantel Pablo MAINTENANCE PLANNER.TRANSPORTATION ENGINEERING TECHNICIAN Work Phone: [facility] 12-28-2024 12:28-0400 Heart rate 85 /min Chantel Shah MAINTENANCE PLANNER.TRANSPORTATION ENGINEERING TECHNICIAN Work Phone: [facility] 12-28-2024 12:28-0400 Respiratory rate 18 /min Chantel Shah MAINTENANCE PLANNER.TRANSPORTATION ENGINEERING TECHNICIAN Work Phone: [facility] 12-28-2024 12:28-0400 SaO2% (BldA) [Mass fraction] 100 % Chantel Shah MAINTENANCE PLANNER.TRANSPORTATION ENGINEERING TECHNICIAN Work Phone: [facility] 12-28-2024 12:28-0400 Systolic blood pressure 115 mm[Hg] Chantel Shah MAINTENANCE PLANNER.TRANSPORTATION ENGINEERING TECHNICIAN Work Phone: [facility] 12-13-2024 09:54-0400 Body mass index (BMI) [Ratio] 21.77 kg/m2 Meagan Jeterler-Stanley MAINTENANCE PLANNER.TRANSPORTATION ENGINEERING TECHNICIAN Work Phone: [facility] 12-13-2024 09:54-0400 Body temperature 97.5 [degF] Maegan Praisler-Wood MAINTENANCE PLANNER.TRANSPORTATION ENGINEERING TECHNICIAN Work Phone: [facility] 12-13-2024 09:54-0400 Body weight 54 kg Meagan Praisler-Wood MAINTENANCE PLANNER.TRANSPORTATION ENGINEERING TECHNICIAN Work Phone: [facility] 12-13-2024 09:54-0400 Diastolic blood pressure 79 mm[Hg] Meagan Praisler-Wood MAINTENANCE PLANNER.TRANSPORTATION ENGINEERING TECHNICIAN Work Phone: [facility] 12-13-2024 09:54-0400 Heart rate 99 /min Meagan Praisler-Wood MAINTENANCE PLANNER.TRANSPORTATION ENGINEERING TECHNICIAN Work Phone: [facility] 12-13-2024 09:54-0400 Respiratory rate 22 /min Meagan Praisler-Wood MAINTENANCE PLANNER.TRANSPORTATION ENGINEERING TECHNICIAN Work Phone: [facility] 12-13-2024 09:54-0400 SaO2% (BldA) [Mass fraction] 97 % Meagan Praisler-Wood MAINTENANCE PLANNER.TRANSPORTATION ENGINEERING TECHNICIAN Work Phone: [facility] 12-13-2024 09:54-0400 Systolic blood pressure 108 mm[Hg] Meagan Praisler-Wood MAINTENANCE PLANNER.TRANSPORTATION ENGINEERING TECHNICIAN Work Phone: [facility] 12-04-2024 08:52-0400 Body mass index (BMI) [Ratio] 22.09 kg/m2 Krislyn Aberegg PA Work Phone: [facility] 12-04-2024 08:52-0400 Body temperature 97 [degF] Krislyn Aberegg PA Work Phone: [facility] 12-04-2024 08:52-0400 Body weight 54.8 kg Krislyn Aberegg PA Work Phone: [facility] 12-04-2024 08:52-0400 Diastolic blood pressure 62 mm[Hg] Krislyn Aberegg PA Work Phone: [facility] 12-04-2024 08:52-0400 Heart rate 90 /min Krislyn Aberegg PA Work Phone: [facility] 12-04-2024 08:52-0400 Respiratory rate 16 /min Krislyn Aberegg PA Work Phone: [facility] 12-04-2024 08:52-0400 SaO2% (BldA) [Mass fraction] 97 % Krislyn Aberegg PA Work Phone: [facility] 12-04-2024 08:52-0400 Systolic blood pressure 106 mm[Hg] Louie MANNING Work Phone: [facility] 11-28-2024 15:07-0400 Body height 157.[address] Hung Cai MD Work Phone: [facility] 11-28-2024 15:07-0400 Body mass index (BMI) [Ratio] 22.1 kg/m2 Dr. Hung Cai MD Work Phone: 8(981)304-250991 [place] [address] 11-28-2024 15:07-0400 Body temperature 98.9 [degF] Dr. Hung Cai MD Work Phone: 6(045)901-516788 [place] [address] 11-28-2024 15:07-0400 Body weight 54.[address] Hung Cai MD Work Phone: 0(395)391-220736 [address] 11-28-2024 15:07-0400 Diastolic blood pressure 72 mm[Hg] Dr. Hung Cai MD Work Phone: 2(614)761-435036 [address] 11-28-2024 15:07-0400 Heart rate 92 /min Dr. Hung Cai MD Work Phone: 2(505)499-997288 [place] [address] 11-28-2024 15:07-0400 Respiratory rate 16 /min Dr. Hung Cai MD Work Phone: 5(866)149-181236 [address] 11-28-2024 15:07-0400 SaO2% (BldA) [Mass fraction] 98 % Dr. Hung Cai MD Work Phone: 6(801)756-183491 [place] [address] 11-28-2024 15:07-0400 Systolic blood pressure 124 mm[Hg] Dr. Hugn Cai MD Work Phone: 7(991)954-434488 [place] [address] 11-26-2024 10:49-0400 Body temperature 97.8 [degF] Dr. Hung Cai MD Work Phone: 7(108)886-654291 [place] [address] 11-26-2024 10:49-0400 Diastolic blood pressure 68 mm[Hg] Dr. Hung Cai MD Work Phone: 9(083)961-219491 [place] [address] 11-26-2024 10:49-0400 Heart rate 68 /min Dr. Hung Cai MD Work Phone: [facility] 11-26-2024 10:49-0400 Respiratory rate 15 /min Dr. Hung Cai MD Work Phone: [facility] 11-26-2024 10:49-0400 SaO2% (BldA) [Mass fraction] 99 % Dr. Hung Cai MD Work Phone: 7(077)772-561391 [place] [address] 11-26-2024 10:49-0400 Systolic blood pressure 94 mm[Hg] Dr. Hung Cai MD Work Phone: 6(534)166-839836 [address] 11-26-2024 07:02-0400 Body height 157.[address] Hung Cai MD Work Phone: 5(795)067-569888 [place] [address] 11-26-2024 07:02-0400 Body mass index (BMI) [Ratio] 22.1 kg/m2 Dr. Hung Cai MD Work Phone: [facility] 11-26-2024 07:02-0400 Body weight 54.[address] Hung Cai MD Work Phone: [facility] 11-07-2024 10:37-0400 Body mass index (BMI) [Ratio] 22.13 kg/m2 Julieta Moomaw MAINTENANCE PLANNER.TRANSPORTATION ENGINEERING TECHNICIAN Work Phone: [facility] 11-07-2024 10:37-0400 Body temperature 98.2 [degF] Julieta Moomaw MAINTENANCE PLANNER.TRANSPORTATION ENGINEERING TECHNICIAN Work Phone: [facility] 11-07-2024 10:37-0400 Body weight 54.9 kg Julieta Moomaw MAINTENANCE PLANNER.TRANSPORTATION ENGINEERING TECHNICIAN Work Phone: [facility] 11-07-2024 10:37-0400 Diastolic blood pressure 64 mm[Hg] Julieta Moomaw MAINTENANCE PLANNER.TRANSPORTATION ENGINEERING TECHNICIAN Work Phone: [facility] 11-07-2024 10:37-0400 Heart rate 82 /min Julieta Moomaw MAINTENANCE PLANNER.TRANSPORTATION ENGINEERING TECHNICIAN Work Phone: [facility] 11-07-2024 10:37-0400 Respiratory rate 16 /min Julieta Moomaw MAINTENANCE PLANNER.TRANSPORTATION ENGINEERING TECHNICIAN Work Phone: [facility] 11-07-2024 10:37-0400 SaO2% (BldA) [Mass fraction] 99 % Julieta Moomaw MAINTENANCE PLANNER.TRANSPORTATION ENGINEERING TECHNICIAN Work Phone: [facility] 11-07-2024 10:37-0400 Systolic blood pressure 110 mm[Hg] Julieta Moomaw MAINTENANCE PLANNER.TRANSPORTATION ENGINEERING TECHNICIAN Work Phone: [facility] 10-04-2024 13:02-0400 Body height 157.[address] Hung Cai MD Work Phone: 4(830)114-659491 [place] [address] 10-04-2024 13:02-0400 Body mass index (BMI) [Ratio] 22.1 kg/m2 Dr. Hung Cai MD Work Phone: 7(268)650-950491 [place] [address] 10-04-2024 13:02-0400 Body temperature 97.1 [degF] Dr. Hung Cai MD Work Phone: 2(414)084-294991 [place] [address] 10-04-2024 13:02-0400 Body weight 54.[address] Hung Cai MD Work Phone: 4(918)811-734291 [place] [address] 10-04-2024 13:02-0400 Diastolic blood pressure 84 mm[Hg] Dr. Hung Cai MD Work Phone: 7(804)742-241591 [place] [address] 10-04-2024 13:02-0400 Heart rate 76 /min Dr. Hung Cai MD Work Phone: 8(270)897-619991 [place] [address] 10-04-2024 13:02-0400 Respiratory rate 16 /min Dr. Hung Cai MD Work Phone: 8(494)516-674091 [place] [address] 10-04-2024 13:02-0400 SaO2% (BldA) [Mass fraction] 97 % Dr. Hung Cai MD Work Phone: [facility] 10-04-2024 13:02-0400 Systolic blood pressure 132 mm[Hg] Dr. Hung Cai MD Work Phone: [facility] 09-27-2024 13:06-0400 Body mass index (BMI) [Ratio] 22.17 kg/m2 Krislyn Aberegg PA Work Phone: [facility] 09-27-2024 13:06-0400 Body temperature 97.39 [degF] Krislyn Aberegg PA Work Phone: [facility] 09-27-2024 13:06-0400 Body weight 55 kg Krislyn Aberegg PA Work Phone: [facility] 09-27-2024 13:06-0400 Diastolic blood pressure 88 mm[Hg] Krislyn Aberegg PA Work Phone: [facility] 09-27-2024 13:06-0400 Heart rate 69 /min Krislyn Aberegg PA Work Phone: [facility] 09-27-2024 13:06-0400 Respiratory rate 20 /min Krislyn Aberegg PA Work Phone: [facility] 09-27-2024 13:06-0400 SaO2% (BldA) [Mass fraction] 99 % Krislyn Aberegg PA Work Phone: [facility] 09-27-2024 13:06-0400 Systolic blood pressure 124 mm[Hg] Krislyn Aberegg PA Work Phone: [facility] 09-25-2024 21:49-0400 Body temperature 98.2 [degF] Dr. Hung Cai MD Work Phone: [facility] 09-25-2024 21:49-0400 Diastolic blood pressure 89 mm[Hg] Dr. Hung Cai MD Work Phone: [facility] 09-25-2024 21:49-0400 Heart rate 75 /min Dr. Hung Cai MD Work Phone: [facility] 09-25-2024 21:49-0400 Respiratory rate 18 /min Dr. Hung Cai MD Work Phone: 1(291)518-639588 [place] [address] 09-25-2024 21:49-0400 SaO2% (BldA) [Mass fraction] 98 % Dr. Hung Cia MD Work Phone: 7(650)547-421988 [place] [address] 09-25-2024 21:49-0400 Systolic blood pressure 114 mm[Hg] Dr. Hung Cai MD Work Phone: 5(302)426-516388 [place] [address] 09-25-2024 16:41-0400 Body height 157.[address] Hung Cai MD Work Phone: 2(439)430-467588 [place] [address] 09-25-2024 16:41-0400 Body mass index (BMI) [Ratio] 22.1 kg/m2 Dr. Hung Cai MD Work Phone: 0(368)737-061388 [place] [address] 09-25-2024 16:41-0400 Body weight [address] Hung Cai MD Work Phone: 6(644)524-967588 [place] [address] 09-14-2024 09:41-0500 Body height 162.[address] Hung Cai MD Work Phone: 2(385)427-312388 [place] [address] 09-14-2024 09:41-0500 Body mass index (BMI) [Ratio] 21.2 kg/m2 Dr. Hung Cai MD Work Phone: 7(581)382-721388 [place] [address] 09-14-2024 09:41-0500 Body temperature 98 [degF] Dr. Hung Cai MD Work Phone: 6(546)832-184488 [place] [address] 09-14-2024 09:41-0500 Body weight 56.[address] Hung Cai MD Work Phone: 9(095)267-863588 [place] [address] 09-14-2024 09:41-0500 Diastolic blood pressure 64 mm[Hg] Dr. Hung Cai MD Work Phone: 9(757)051-066088 [place] [address] 09-14-2024 09:41-0500 Heart rate 78 /min Dr. Hung Cai MD Work Phone: 9(714)451-316688 [place] [address] 09-14-2024 09:41-0500 Respiratory rate 19 /min Dr. Hung Cai MD Work Phone: 3(132)059-453591 [place] [address] 09-14-2024 09:41-0500 SaO2% (BldA) [Mass fraction] 97 % Dr. Hung Cai MD Work Phone: 0(926)755-560591 [place] [address] 09-14-2024 09:41-0500 Systolic blood pressure 112 mm[Hg] Dr. Hung Cai MD Work Phone: 5(447)916-231488 [place] [address] 09-11-2024 11:47-0500 Body mass index (BMI) [Ratio] 21.1 kg/m2 Dr. Hung Cai MD Work Phone: 6(639)344-498088 [place] [address] 09-11-2024 11:47-0500 Body temperature 97 [degF] Dr. Hung Cai MD Work Phone: 2(622)347-411988 [place] [address] 09-11-2024 11:47-0500 Body weight 55.[address] Hung Cai MD Work Phone: 7(568)208-345888 [place] [address] 09-11-2024 11:47-0500 Diastolic blood pressure 78 mm[Hg] Dr. Hung Cai MD Work Phone: 5(273)091-076936 [address] 09-11-2024 11:47-0500 Heart rate 93 /min Dr. Hung Cai MD Work Phone: 4(858)734-441136 [address] 09-11-2024 11:47-0500 Respiratory rate 16 /min Dr. Hung Cai MD Work Phone: 2(758)088-325136 [address] 09-11-2024 11:47-0500 SaO2% (BldA) [Mass fraction] 99 % Dr. Hung Cai MD Work Phone: 6(097)467-673036 [address] 09-11-2024 11:47-0500 Systolic blood pressure 99 mm[Hg] Dr. Hung Cai MD Work Phone: 7(087)962-085936 [address] 08-17-2024 12:06-0500 Body mass index (BMI) [Ratio] 22.57 kg/m2 Julieta Poole APRN.CNP Work Phone: [facility] 08-17-2024 12:06-0500 Body temperature 97 [degF] Julieta Moomaw MAINTENANCE PLANNER.TRANSPORTATION ENGINEERING TECHNICIAN Work Phone: [facility] 08-17-2024 12:06-0500 Body weight 56 kg Julieta Moomaw MAINTENANCE PLANNER.TRANSPORTATION ENGINEERING TECHNICIAN Work Phone: [facility] 08-17-2024 12:06-0500 Diastolic blood pressure 84 mm[Hg] Julieta Moomaw MAINTENANCE PLANNER.TRANSPORTATION ENGINEERING TECHNICIAN Work Phone: [facility] 08-17-2024 12:06-0500 Heart rate 86 /min Julieta Moomaw MAINTENANCE PLANNER.TRANSPORTATION ENGINEERING TECHNICIAN Work Phone: [facility] 08-17-2024 12:06-0500 Respiratory rate 20 /min Julieta Moomaw MAINTENANCE PLANNER.TRANSPORTATION ENGINEERING TECHNICIAN Work Phone: [facility] 08-17-2024 12:06-0500 SaO2% (BldA) [Mass fraction] 99 % Julieta Moomaw MAINTENANCE PLANNER.TRANSPORTATION ENGINEERING TECHNICIAN Work Phone: [facility] 08-17-2024 12:06-0500 Systolic blood pressure 114 mm[Hg] Julieta Moomaw MAINTENANCE PLANNER.TRANSPORTATION ENGINEERING TECHNICIAN Work Phone: [facility] 08-13-2024 10:12-0500 Body mass index (BMI) [Ratio] 21.8 kg/m2 Dr. Hung Cai MD Work Phone: [facility] 08-13-2024 10:12-0500 Body temperature 98.3 [degF] Dr. Hung Cai MD Work Phone: [facility] 08-13-2024 10:12-0500 Body weight 57.[address] Hung Cai MD Work Phone: [facility] 08-13-2024 10:12-0500 Diastolic blood pressure 80 mm[Hg] Dr. Hung Cai MD Work Phone: [facility] 08-13-2024 10:12-0500 Heart rate 68 /min Dr. Hung Cai MD Work Phone: [facility] 08-13-2024 10:12-0500 Respiratory rate 16 /min Dr. Hung Cai MD Work Phone: 8(800)062-445088 [place] [address] 08-13-2024 10:12-0500 SaO2% (BldA) [Mass fraction] 97 % Dr. Hung Cai MD Work Phone: 5(483)726-716088 [place] [address] 08-13-2024 10:12-0500 Systolic blood pressure 110 mm[Hg] Dr. Hung Cai MD Work Phone: 5(519)455-133588 [place] [address] 08-01-2024 15:35-0500 Body mass index (BMI) [Ratio] 21.4 kg/m2 Dr. Hung Cai MD Work Phone: 8(053)662-102288 [place] [address] 08-01-2024 15:35-0500 Body temperature 96.6 [degF] Dr. Hung Cai MD Work Phone: 1(693)283-915988 [place] [address] 08-01-2024 15:35-0500 Body weight 56.[address] Hung Cai MD Work Phone: 2(978)355-044488 [place] [address] 08-01-2024 15:35-0500 Diastolic blood pressure 92 mm[Hg] Dr. Hung Cai MD Work Phone: 0(987)944-846788 [place] [address] 08-01-2024 15:35-0500 Heart rate 86 /min Dr. Hung Cai MD Work Phone: 9(228)591-339088 [place] [address] 08-01-2024 15:35-0500 Respiratory rate 16 /min Dr. Hung Cai MD Work Phone: 7(524)292-602788 [place] [address] 08-01-2024 15:35-0500 SaO2% (BldA) [Mass fraction] 99 % Dr. Hung Cai MD Work Phone: 1(219)506-404888 [place] [address] 08-01-2024 15:35-0500 Systolic blood pressure 126 mm[Hg] Dr. Hung Cai MD Work Phone: 7(761)918-821488 [place] [address] 07-31-2024 09:08-0500 Body mass index (BMI) [Ratio] 22.97 kg/m2 Mone Eduardo MAINTENANCE PLANNER.TRANSPORTATION ENGINEERING TECHNICIAN Work Phone: [facility] 07-31-2024 09:08-0500 Body weight 56.97 kg Mone Eduardo MAINTENANCE PLANNER.TRANSPORTATION ENGINEERING TECHNICIAN Work Phone: [facility] 07-31-2024 09:08-0500 Diastolic blood pressure 62 mm[Hg] Mone Eduardo MAINTENANCE PLANNER.TRANSPORTATION ENGINEERING TECHNICIAN Work Phone: [facility] 07-31-2024 09:08-0500 Systolic blood pressure 110 mm[Hg] Mone Eduardo MAINTENANCE PLANNER.TRANSPORTATION ENGINEERING TECHNICIAN Work Phone: [facility] 06-03-2024 10:27-0500 Body mass index (BMI) [Ratio] 23.7 kg/m2 Meagan Praisler-Wood MAINTENANCE PLANNER.TRANSPORTATION ENGINEERING TECHNICIAN Work Phone: [facility] 06-03-2024 10:27-0500 Body temperature 97.7 [degF] Meagan Praisler-Wood MAINTENANCE PLANNER.TRANSPORTATION ENGINEERING TECHNICIAN Work Phone: [facility] 06-03-2024 10:27-0500 Body weight 58.8 kg Meagan Praisler-Wood MAINTENANCE PLANNER.TRANSPORTATION ENGINEERING TECHNICIAN Work Phone: [facility] 06-03-2024 10:27-0500 Diastolic blood pressure 84 mm[Hg] Meagan Praisler-Wood MAINTENANCE PLANNER.TRANSPORTATION ENGINEERING TECHNICIAN Work Phone: [facility] 06-03-2024 10:27-0500 Heart rate 72 /min Meagan Praisler-Wood MAINTENANCE PLANNER.TRANSPORTATION ENGINEERING TECHNICIAN Work Phone: [facility] 06-03-2024 10:27-0500 Respiratory rate 16 /min Meagan Praisler-Wood MAINTENANCE PLANNER.TRANSPORTATION ENGINEERING TECHNICIAN Work Phone: [facility] 06-03-2024 10:27-0500 SaO2% (BldA) [Mass fraction] 100 % Meagan Praisler-Wood MAINTENANCE PLANNER.TRANSPORTATION ENGINEERING TECHNICIAN Work Phone: [facility] 06-03-2024 10:27-0500 Systolic blood pressure 118 mm[Hg] Meagan Praisler-Wood MAINTENANCE PLANNER.TRANSPORTATION ENGINEERING TECHNICIAN Work Phone: [facility] 05-27-2024 12:12-0500 Body mass index (BMI) [Ratio] 23.26 kg/m2 Gem Reilly MAINTENANCE PLANNER.TRANSPORTATION ENGINEERING TECHNICIAN Work Phone: [facility] 05-27-2024 12:12-0500 Body temperature 97.11 [degF] Gem Reilly MAINTENANCE PLANNER.TRANSPORTATION ENGINEERING TECHNICIAN Work Phone: [facility] 05-27-2024 12:12-0500 Body weight 57.7 kg Gem Reilly MAINTENANCE PLANNER.TRANSPORTATION ENGINEERING TECHNICIAN Work Phone: [facility] 05-27-2024 12:12-0500 Diastolic blood pressure 83 mm[Hg] Gem Reilly MAINTENANCE PLANNER.TRANSPORTATION ENGINEERING TECHNICIAN Work Phone: [facility] 05-27-2024 12:12-0500 Heart rate 79 /min Gem Reilly MAINTENANCE PLANNER.TRANSPORTATION ENGINEERING TECHNICIAN Work Phone: [facility] 05-27-2024 12:12-0500 Respiratory rate 18 /min Gem Reilly MAINTENANCE PLANNER.TRANSPORTATION ENGINEERING TECHNICIAN Work Phone: [facility] 05-27-2024 12:12-0500 SaO2% (BldA) [Mass fraction] 99 % Gem Reilly MAINTENANCE PLANNER.TRANSPORTATION ENGINEERING TECHNICIAN Work Phone: [facility] 05-27-2024 12:12-0500 Systolic blood pressure 112 mm[Hg] Gem Reilly MAINTENANCE PLANNER.TRANSPORTATION ENGINEERING TECHNICIAN Work Phone: [facility] 03-21-2024 11:43-0400 Body mass index (BMI) [Ratio] 22.16 kg/m2 Prudencio Pedro MD Work Phone: [facility] 03-21-2024 11:43-0400 Body temperature 97.3 [degF] Prudencio Pedro MD Work Phone: [facility] 03-21-2024 11:43-0400 Body weight 54.98 kg Prudencio Pedro MD Work Phone: [facility] 03-21-2024 11:43-0400 Diastolic blood pressure 86 mm[Hg] Prudencio Pedro MD Work Phone: [facility] 03-21-2024 11:43-0400 Heart rate 68 /min Prudencio Pedro MD Work Phone: [facility] 03-21-2024 11:43-0400 Respiratory rate 18 /min Prudencio Pedro MD Work Phone: [facility] 03-21-2024 11:43-0400 SaO2% (BldA) [Mass fraction] 96 % Prudencio Pedro MD Work Phone: [facility] 03-21-2024 11:43-0400 Systolic blood pressure 122 mm[Hg] Prudencio Pedro MD Work Phone: [facility] 03-20-2024 09:54-0400 Body mass index (BMI) [Ratio] 22.25 kg/m2 Marcy Pan MAINTENANCE PLANNER.TRANSPORTATION ENGINEERING TECHNICIAN Work Phone: [facility] 03-20-2024 09:54-0400 Body temperature 96.91 [degF] Marcy Pan MAINTENANCE PLANNER.TRANSPORTATION ENGINEERING TECHNICIAN Work Phone: [facility] 03-20-2024 09:54-0400 Body weight 55.2 kg Marcy Pan MAINTENANCE PLANNER.TRANSPORTATION ENGINEERING TECHNICIAN Work Phone: [facility] 03-20-2024 09:54-0400 Diastolic blood pressure 60 mm[Hg] Marcy Pan MAINTENANCE PLANNER.TRANSPORTATION ENGINEERING TECHNICIAN Work Phone: [facility] 03-20-2024 09:54-0400 Heart rate 86 /min Marcy Pan MAINTENANCE PLANNER.TRANSPORTATION ENGINEERING TECHNICIAN Work Phone: [facility] 03-20-2024 09:54-0400 Respiratory rate 16 /min Marcy Pan MAINTENANCE PLANNER.TRANSPORTATION ENGINEERING TECHNICIAN Work Phone: [facility] 03-20-2024 09:54-0400 SaO2% (BldA) [Mass fraction] 99 % Marcy Pan MAINTENANCE PLANNER.TRANSPORTATION ENGINEERING TECHNICIAN Work Phone: [facility] 03-20-2024 09:54-0400 Systolic blood pressure 102 mm[Hg] Marcy Pan MAINTENANCE PLANNER.TRANSPORTATION ENGINEERING TECHNICIAN Work Phone: [facility] 02-27-2024 10:58-0400 Body mass index (BMI) [Ratio] 22.33 kg/m2 Prudencio Pedro MD Work Phone: [facility] 02-27-2024 10:58-0400 Body temperature 97.81 [degF] Prudencio Pedro MD Work Phone: [facility] 02-27-2024 10:58-0400 Body weight 55.4 kg Prudencio Pedro MD Work Phone: [facility] 02-27-2024 10:58-0400 Diastolic blood pressure 64 mm[Hg] Prudencio Pedro MD Work Phone: [facility] 02-27-2024 10:58-0400 Heart rate 101 /min Prudencio Pedro MD Work Phone: [facility] 02-27-2024 10:58-0400 Respiratory rate 18 /min Prudencio Pedro MD Work Phone: [facility] 02-27-2024 10:58-0400 SaO2% (BldA) [Mass fraction] 98 % Prudencio Pedro MD Work Phone: [facility] 02-27-2024 10:58-0400 Systolic blood pressure 110 mm[Hg] Prudencio Pedro MD Work Phone: [facility] 02-13-2024 08:50-0400 Body temperature 97.7 [degF] Diamond Podlogar MAINTENANCE PLANNER.TRANSPORTATION ENGINEERING TECHNICIAN Work Phone: [facility] 02-13-2024 08:50-0400 Diastolic blood pressure 78 mm[Hg] Diamond Podlogar MAINTENANCE PLANNER.TRANSPORTATION ENGINEERING TECHNICIAN Work Phone: [facility] 02-13-2024 08:50-0400 Heart rate 111 /min Diamond Podlogar MAINTENANCE PLANNER.TRANSPORTATION ENGINEERING TECHNICIAN Work Phone: [facility] 02-13-2024 08:50-0400 Respiratory rate 18 /min Diamond Podlogar MAINTENANCE PLANNER.TRANSPORTATION ENGINEERING TECHNICIAN Work Phone: [facility] 02-13-2024 08:50-0400 SaO2% (BldA) [Mass fraction] 97 % Diamond Bright APRN.TRANSPORTATION ENGINEERING TECHNICIAN Work Phone: [facility] 02-13-2024 08:50-0400 Systolic blood pressure 108 mm[Hg] Diamond Bright APRN.TRANSPORTATION ENGINEERING TECHNICIAN Work Phone: [facility] 02-06-2024 09:43-0400 Body mass index (BMI) [Ratio] 22.2 kg/m2 Prudencio Pedro MD Work Phone: [facility] 02-06-2024 09:43-0400 Body temperature 97.3 [degF] Prudencio Pedro MD Work Phone: [facility] [facility] 02-06-2024 09:43-0400 Body weight 55.07 kg Prudencio Pedro MD Work Phone: [facility] 02-06-2024 09:43-0400 Diastolic blood pressure 70 mm[Hg] Prudencio Pedro MD Work Phone: [facility] 02-06-2024 09:43-0400 Heart rate 96 /min Prudencio Pedro MD Work Phone: [facility] 02-06-2024 09:43-0400 Respiratory rate 18 /min Prudencio Pedro MD Work Phone: [facility] 02-06-2024 09:43-0400 SaO2% (BldA) [Mass fraction] 97 % Prudencio Pedro MD Work Phone: [facility] 02-06-2024 09:43-0400 Systolic blood pressure 110 mm[Hg] Prudencio Pedro MD Work Phone: [facility] 11-22-2023 14:55-0400 Body mass index (BMI) [Ratio] 22.13 kg/m2 Meagan Ribeiro APRN.TRANSPORTATION ENGINEERING TECHNICIAN Work Phone: [facility] 11-22-2023 14:55-0400 Body temperature 97.39 [degF] Meagan Praisler-Wood MAINTENANCE PLANNER.TRANSPORTATION ENGINEERING TECHNICIAN Work Phone: [facility] 11-22-2023 14:55-0400 Body weight 54.9 kg Meagan Praisler-Wood MAINTENANCE PLANNER.TRANSPORTATION ENGINEERING TECHNICIAN Work Phone: [facility] 11-22-2023 14:55-0400 Diastolic blood pressure 82 mm[Hg] Meagan Praisler-Wood MAINTENANCE PLANNER.TRANSPORTATION ENGINEERING TECHNICIAN Work Phone: [facility] 11-22-2023 14:55-0400 Heart rate 81 /min Meagan Praisler-Wood MAINTENANCE PLANNER.TRANSPORTATION ENGINEERING TECHNICIAN Work Phone: [facility] 11-22-2023 14:55-0400 Respiratory rate 18 /min Meagan Praisler-Wood MAINTENANCE PLANNER.TRANSPORTATION ENGINEERING TECHNICIAN Work Phone: [facility] 11-22-2023 14:55-0400 SaO2% (BldA) [Mass fraction] 98 % Meagan Praisler-Wood MAINTENANCE PLANNER.TRANSPORTATION ENGINEERING TECHNICIAN Work Phone: [facility] 11-22-2023 14:55-0400 Systolic blood pressure 128 mm[Hg] Meagan Praisler-Wood MAINTENANCE PLANNER.TRANSPORTATION ENGINEERING TECHNICIAN Work Phone: [facility] 11-09-2023 09:55-0400 Body height 157.5 cm Pulm Wstr Work Phone: [facility] 11-09-2023 09:55-0400 Body mass index (BMI) [Ratio] 22.86 kg/m2 Pulm Wstr Work Phone: [facility] 11-09-2023 09:55-0400 Body weight 56.7 kg Pulm Wstr Work Phone: [facility] 11-09-2023 09:55-0400 Heart rate 79 /min Pulm Wstr Work Phone: [facility] 11-09-2023 09:55-0400 Respiratory rate 17 /min Pulm Wstr Work Phone: [facility] 11-09-2023 09:55-0400 SaO2% (BldA) [Mass fraction] 99 % Pulm Wstr Work Phone: [facility] 11-09-2023 09:22-0400 Body mass index (BMI) [Ratio] 22.92 kg/m2 Stephenie Fariha PA-C Work Phone: [facility] 11-09-2023 09:22-0400 Body weight 56.7 kg Stephenie Fariha PA-C Work Phone: [facility] 11-09-2023 09:22-0400 Diastolic blood pressure 72 mm[Hg] Stephenie Fariha PA-C Work Phone: [facility] 11-09-2023 09:22-0400 Heart rate 79 /min Stephenie Fariha PA-C Work Phone: [facility] 11-09-2023 09:22-0400 Respiratory rate 17 /min Stephenie Fariha PA-C Work Phone: [facility] 11-09-2023 09:22-0400 SaO2% (BldA) [Mass fraction] 99 % Stephenie Fariha PA-C Work Phone: [facility] 11-09-2023 09:22-0400 Systolic blood pressure 104 mm[Hg] Stephenie Fariha PA-C Work Phone: [facility] 10-24-2023 11:18-0400 Body temperature 97.5 [degF] Pam Athy PA-C Work Phone: [facility] 10-24-2023 11:18-0400 Body weight 55.5 kg Pam Athy PA-C Work Phone: [facility] 10-24-2023 11:18-0400 Diastolic blood pressure 74 mm[Hg] Pam Athy PA-C Work Phone: [facility] 10-24-2023 11:18-0400 Heart rate 98 /min Pam Athy PA-C Work Phone: [facility] 10-24-2023 11:18-0400 Respiratory rate 18 /min Pam Athy PA-C Work Phone: [facility] 10-24-2023 11:18-0400 SaO2% (BldA) [Mass fraction] 97 % Pam Leggettsiena PA-C Work Phone: [facility] 10-24-2023 11:18-0400 Systolic blood pressure 118 mm[Hg] Pam Leggettsiena PA-C Work Phone: [facility] 09-07-2023 10:04-0500 Body height 157.3 cm Diamond Podlogar MAINTENANCE PLANNER.TRANSPORTATION ENGINEERING TECHNICIAN Work Phone: [facility] 09-07-2023 10:04-0500 Body weight 55.97 kg Diamond Podlogar MAINTENANCE PLANNER.TRANSPORTATION ENGINEERING TECHNICIAN Work Phone: [facility] 09-07-2023 10:04-0500 Diastolic blood pressure 64 mm[Hg] Diamond Podlogar MAINTENANCE PLANNER.TRANSPORTATION ENGINEERING TECHNICIAN Work Phone: [facility] 09-07-2023 10:04-0500 Heart rate 62 /min Diamond Podlogar MAINTENANCE PLANNER.TRANSPORTATION ENGINEERING TECHNICIAN Work Phone: [facility] 09-07-2023 10:04-0500 Respiratory rate 18 /min Diamond Podlogar MAINTENANCE PLANNER.TRANSPORTATION ENGINEERING TECHNICIAN Work Phone: [facility] 09-07-2023 10:04-0500 SaO2% (BldA) [Mass fraction] 98 % Diamond Podlogar MAINTENANCE PLANNER.TRANSPORTATION ENGINEERING TECHNICIAN Work Phone: [facility] 09-07-2023 10:04-0500 Systolic blood pressure 100 mm[Hg] Diamond Podlogar MAINTENANCE PLANNER.TRANSPORTATION ENGINEERING TECHNICIAN Work Phone: [facility] 08-30-2023 12:03-0500 Body height 162.[address] Segundo WILSON Work Phone: [facility] 08-30-2023 12:03-0500 Body mass index (BMI) [Ratio] 21.4 kg/m2 Dr. Segundo WILSON Work Phone: [facility] 08-30-2023 12:03-0500 Body temperature 97 [degF] Dr. Segundo WILSON Work Phone: [facility] 08-30-2023 12:03-0500 Body weight 56.[address] Segundo WILSON Work Phone: [facility] 08-30-2023 12:03-0500 Diastolic blood pressure 85 mm[Hg] Dr. Segundo WILSON Work Phone: [facility] 08-30-2023 12:03-0500 Heart rate 97 /min Dr. Segundo WILSON Work Phone: [facility] 08-30-2023 12:03-0500 Respiratory rate 18 /min Dr. Segundo WILSON Work Phone: [facility] 08-30-2023 12:03-0500 SaO2% (BldA) [Mass fraction] 98 % Dr. Segundo WILSON Work Phone: [facility] 08-30-2023 12:03-0500 Systolic blood pressure 120 mm[Hg] Dr. Segundo WILSON Work Phone: [facility] 06-13-2023 10:03-0500 Body temperature 97.3 [degF] Krislyn Aberegg PA Work Phone: [facility] 06-13-2023 10:03-0500 Body weight 54.88 kg Krislyn Aberegg PA Work Phone: [facility] 06-13-2023 10:03-0500 Diastolic blood pressure 78 mm[Hg] Krislyn Aberegg PA Work Phone: [facility] 06-13-2023 10:03-0500 Heart rate 77 /min Krislyn Aberegg PA Work Phone: [facility] 06-13-2023 10:03-0500 Respiratory rate 18 /min Krislyn Aberegg PA Work Phone: [facility] 06-13-2023 10:03-0500 SaO2% (BldA) [Mass fraction] 100 % Louie MANNING Work Phone: [facility] 06-13-2023 10:03-0500 Systolic blood pressure 106 mm[Hg] Louie MANNING Work Phone: [facility] 03-30-2023 15:34-0400 Body temperature 98.71 [degF] Rob Pendlebury MAINTENANCE PLANNER.TRANSPORTATION ENGINEERING TECHNICIAN Work Phone: [facility] 03-30-2023 15:34-0400 Body weight 54.07 [facility] MAINTENAN[facility]ANNER.TRANSPORTATION ENGINEERING TECHNICIAN Work Phone: [facility] 03-30-2023 15:34-0400 Diastolic blood pressure 88 mm[Hg] Rob Pendlebury MAINTENANCE PLANNER.TRANSPORTATION ENGINEERING TECHNICIAN Work Phone: [facility] 03-30-2023 15:34-0400 Heart rate 84 /min Rob Pendlebury MAINTENANCE PLANNER.TRANSPORTATION ENGINEERING TECHNICIAN Work Phone: [facility] 03-30-2023 15:34-0400 Respiratory rate 18 /min Rob Pendlebury MAINTENANCE PLANNER.TRANSPORTATION ENGINEERING TECHNICIAN Work Phone: [facility] 03-30-2023 15:34-0400 SaO2% (BldA) [Mass fraction] 100 % [facility] MAINTENANCE PLANNER.TRANSPORTATION ENGINEERING TECHNICIAN Work Phone: [facility] 03-30-2023 15:34-0400 Systolic blood pressure 125 mm[Hg] Rob Pendlebury MAINTENANCE PLANNER.TRANSPORTATION ENGINEERING TECHNICIAN Work Phone: [facility] 03-14-2023 11:35-0400 Body weight 54.88 kg David Brown MD Work Phone: [facility] 03-14-2023 11:35-0400 Diastolic blood pressure 80 mm[Hg] David Brown MD Work Phone: [facility] 03-14-2023 11:35-0400 Heart rate 66 /min David Brown MD Work Phone: [facility] 03-14-2023 11:35-0400 Respiratory rate 15 /min David Brown MD Work Phone: [facility] 03-14-2023 11:35-0400 SaO2% (BldA) [Mass fraction] 100 % David Brown MD Work Phone: [facility] 03-14-2023 11:35-0400 Systolic blood pressure 122 mm[Hg] David Brown MD Work Phone: [facility] 02-16-2023 14:34-0400 Body temperature 97.39 [degF] Pam Athy PA-C Work Phone: [facility] 02-16-2023 14:34-0400 Body weight 55.25 kg Pam Athy PA-C Work Phone: [facility] 02-16-2023 14:34-0400 Diastolic blood pressure 64 mm[Hg] Pam Athy PA-C Work Phone: [facility] 02-16-2023 14:34-0400 Heart rate 87 /min Apm Athy PA-C Work Phone: [facility] 02-16-2023 14:34-0400 Respiratory rate 18 /min Pam Athy PA-C Work Phone: [facility] 02-16-2023 14:34-0400 SaO2% (BldA) [Mass fraction] 99 % Pam Athy PA-C Work Phone: [facility] 02-16-2023 14:34-0400 Systolic blood pressure 100 mm[Hg] Pam Athy PA-C Work Phone: [facility] 11-17-2022 14:32-0400 Body weight 56.97 kg Diamond Bright APRN.TRANSPORTATION ENGINEERING TECHNICIAN Work Phone: [facility] 11-17-2022 14:32-0400 Diastolic blood pressure 88 mm[Hg] Diamond Bright APRN.TRANSPORTATION ENGINEERING TECHNICIAN Work Phone: [facility] 11-17-2022 14:32-0400 Heart rate 86 /min Diamond Podlogar MAINTENANCE PLANNER.TRANSPORTATION ENGINEERING TECHNICIAN Work Phone: [facility] 11-17-2022 14:32-0400 Respiratory rate 18 /min Diamond Podlogar MAINTENANCE PLANNER.TRANSPORTATION ENGINEERING TECHNICIAN Work Phone: [facility] 11-17-2022 14:32-0400 SaO2% (BldA) [Mass fraction] 100 % Diamond Podlogar MAINTENANCE PLANNER.TRANSPORTATION ENGINEERING TECHNICIAN Work Phone: [facility] 11-17-2022 14:32-0400 Systolic blood pressure 128 mm[Hg] Diamond Podlogar MAINTENANCE PLANNER.TRANSPORTATION ENGINEERING TECHNICIAN Work Phone: [facility] 11-05-2022 14:29-0400 Body temperature 98.6 [degF] Meagan Praisler-Wood MAINTENANCE PLANNER.TRANSPORTATION ENGINEERING TECHNICIAN Work Phone: [facility] 11-05-2022 14:29-0400 Body weight 56.06 kg Meagan Praisler-Wood MAINTENANCE PLANNER.TRANSPORTATION ENGINEERING TECHNICIAN Work Phone: [facility] 11-05-2022 14:29-0400 Diastolic blood pressure 72 mm[Hg] Meagan Praisler-Wood MAINTENANCE PLANNER.TRANSPORTATION ENGINEERING TECHNICIAN Work Phone: [facility] 11-05-2022 14:29-0400 Heart rate 84 /min Meagan Praisler-Wood MAINTENANCE PLANNER.TRANSPORTATION ENGINEERING TECHNICIAN Work Phone: [facility] 11-05-2022 14:29-0400 Respiratory rate 18 /min Meagan Praisler-Wood MAINTENANCE PLANNER.TRANSPORTATION ENGINEERING TECHNICIAN Work Phone: [facility] 11-05-2022 14:29-0400 SaO2% (BldA) [Mass fraction] 97 % Meagan Praisler-Wood MAINTENANCE PLANNER.TRANSPORTATION ENGINEERING TECHNICIAN Work Phone: [facility] 11-05-2022 14:29-0400 Systolic blood pressure 112 mm[Hg] Meagan Praisler-Wood MAINTENANCE PLANNER.TRANSPORTATION ENGINEERING TECHNICIAN Work Phone: [facility] 11-01-2022 13:25-0400 Body temperature 97 [degF] Pam Garibay PA-C Work Phone: [facility] 11-01-2022 13:25-0400 Body weight 58.24 kg Pam Athy PA-C Work Phone: [facility] 11-01-2022 13:25-0400 Diastolic blood pressure 80 mm[Hg] Pam Athy PA-C Work Phone: [facility] 11-01-2022 13:25-0400 Heart rate 85 /min Pam Athy PA-C Work Phone: [facility] 11-01-2022 13:25-0400 Respiratory rate 21 /min Pam Athy PA-C Work Phone: [facility] 11-01-2022 13:25-0400 SaO2% (BldA) [Mass fraction] 97 % Pam Athy PA-C Work Phone: [facility] 11-01-2022 13:25-0400 Systolic blood pressure 122 mm[Hg] Pam Athy PA-C Work Phone: [facility] 09-07-2022 11:48-0500 Body temperature 97 [degF] Rob Pendlebury MAINTENANCE PLANNER.TRANSPORTATION ENGINEERING TECHNICIAN Work Phone: [facility] 09-07-2022 11:48-0500 Body weight 56.52 kg Rob Pendlebury MAINTENANCE PLANNER.TRANSPORTATION ENGINEERING TECHNICIAN Work Phone: [facility] 09-07-2022 11:48-0500 Diastolic blood pressure 80 mm[Hg] Rob Pendlebury MAINTENANCE PLANNER.TRANSPORTATION ENGINEERING TECHNICIAN Work Phone: [facility] 09-07-2022 11:48-0500 Heart rate 90 /min Rob Pendlebury MAINTENANCE PLANNER.TRANSPORTATION ENGINEERING TECHNICIAN Work Phone: [facility] 09-07-2022 11:48-0500 Respiratory rate 18 /min Rob Pendlebury MAINTENANCE PLANNER.TRANSPORTATION ENGINEERING TECHNICIAN Work Phone: [facility] 09-07-2022 11:48-0500 SaO2% (BldA) [Mass fraction] 98 % Rob Pendlebury MAINTENANCE PLANNER.TRANSPORTATION ENGINEERING TECHNICIAN Work Phone: [facility] 09-07-2022 11:48-0500 Systolic blood pressure 122 mm[Hg] Rob Chirinos APRN.CNP Work Phone: [facility] 09-02-2022 14:53-0500 Body height 154.9 cm Prudencio Pedro MD Work Phone: [facility] 09-02-2022 14:53-0500 Body temperature 97 [degF] Prudencio Pedro MD Work Phone: [facility] 09-02-2022 14:53-0500 Body weight 56.97 kg Prudencio Pedro MD Work Phone: [facility] 09-02-2022 14:53-0500 Diastolic blood pressure 82 mm[Hg] Prudencio Pedro MD Work Phone: [facility] 09-02-2022 14:53-0500 Heart rate 90 /min Prudencio Pedro MD Work Phone: [facility] 09-02-2022 14:53-0500 Systolic blood pressure 104 mm[Hg] Prudencio Pedro MD Work Phone: [facility] 08-24-2022 12:57-0500 Body height 162.[address] Segundo Pedro Work Phone: [facility] 08-24-2022 12:57-0500 Body mass index (BMI) [Ratio] 21.8 kg/m2 Dr. Segundo Pedro Work Phone: [facility] 08-24-2022 12:57-0500 Body temperature 98 [degF] Dr. Segundo Pedro Work Phone: [facility] 08-24-2022 12:57-0500 Body weight 57.[address] Segundo Pedro Work Phone: [facility] 08-24-2022 12:57-0500 Diastolic blood pressure 73 mm[Hg] Dr. Segundo Pedro Work Phone: [facility] 08-24-2022 12:57-0500 Heart rate 92 /min Dr. Segundo Pedro Work Phone: [facility] 08-24-2022 12:57-0500 Respiratory rate 16 /min Dr. Segundo Pedro Work Phone: [facility] 08-24-2022 12:57-0500 SaO2% (BldA) [Mass fraction] 98 % Dr. Segundo Pedro Work Phone: [facility] 08-24-2022 12:57-0500 Systolic blood pressure 108 mm[Hg] Dr. Segundo Pedro Work Phone: [facility] 08-18-2022 09:17-0500 Body temperature 98.1 [degF] Diamond Podlogar MAINTENANCE PLANNER.TRANSPORTATION ENGINEERING TECHNICIAN Work Phone: [facility] 08-18-2022 09:17-0500 Body weight 57.15 kg Diamond Podlogar MAINTENANCE PLANNER.TRANSPORTATION ENGINEERING TECHNICIAN Work Phone: [facility] 08-18-2022 09:17-0500 Diastolic blood pressure 82 mm[Hg] Diamond Podlogar MAINTENANCE PLANNER.TRANSPORTATION ENGINEERING TECHNICIAN Work Phone: [facility] 08-18-2022 09:17-0500 Heart rate 83 /min Diamond Podlogar MAINTENANCE PLANNER.TRANSPORTATION ENGINEERING TECHNICIAN Work Phone: [facility] 08-18-2022 09:17-0500 Respiratory rate 18 /min Diamond Podlogar MAINTENANCE PLANNER.TRANSPORTATION ENGINEERING TECHNICIAN Work Phone: [facility] 08-18-2022 09:17-0500 SaO2% (BldA) [Mass fraction] 100 % Diamond Podlogar MAINTENANCE PLANNER.TRANSPORTATION ENGINEERING TECHNICIAN Work Phone: [facility] 08-18-2022 09:17-0500 Systolic blood pressure 116 mm[Hg] Diamond Podlogar MAINTENANCE PLANNER.TRANSPORTATION ENGINEERING TECHNICIAN Work Phone: [facility] 08-09-2022 09:21-0500 Body weight 56.34 kg Gem Wilder MAINTENANCE PLANNER.CNM Work Phone: [facility] 08-09-2022 09:21-0500 Diastolic blood pressure 60 mm[Hg] Gem Wilder MAINTENANCE PLANNER.CNM Work Phone: [facility] 08-09-2022 09:21-0500 Systolic blood pressure 90 mm[Hg] Gem Wilder MAINTENANCE PLANNER.CNM Work Phone: [facility] 08-02-2022 09:39-0500 Body height 157.4 cm Diamond Podlogar MAINTENANCE PLANNER.TRANSPORTATION ENGINEERING TECHNICIAN Work Phone: [facility] 08-02-2022 09:39-0500 Body weight 56.79 kg Diamond Podlogar MAINTENANCE PLANNER.TRANSPORTATION ENGINEERING TECHNICIAN Work Phone: [facility] 08-02-2022 09:39-0500 Diastolic blood pressure 78 mm[Hg] Diamond Podlogar MAINTENANCE PLANNER.TRANSPORTATION ENGINEERING TECHNICIAN Work Phone: [facility] 08-02-2022 09:39-0500 Heart rate 70 /min Diamond Podlogar MAINTENANCE PLANNER.TRANSPORTATION ENGINEERING TECHNICIAN Work Phone: [facility] 08-02-2022 09:39-0500 Respiratory rate 16 /min Diamond Podlogar MAINTENANCE PLANNER.TRANSPORTATION ENGINEERING TECHNICIAN Work Phone: [facility] 08-02-2022 09:39-0500 SaO2% (BldA) [Mass fraction] 100 % Diamond Podlogar MAINTENANCE PLANNER.TRANSPORTATION ENGINEERING TECHNICIAN Work Phone: [facility] 08-02-2022 09:39-0500 Systolic blood pressure 124 mm[Hg] Diamond Podlogar MAINTENANCE PLANNER.TRANSPORTATION ENGINEERING TECHNICIAN Work Phone: [facility] 07-30-2022 08:21-0500 Body temperature 97.11 [degF] Kathleen Maurice MAINTENANCE PLANNER.TRANSPORTATION ENGINEERING TECHNICIAN Work Phone: [facility] 07-30-2022 08:21-0500 Body weight 56.97 kg Kathleen Maurice MAINTENANCE PLANNER.TRANSPORTATION ENGINEERING TECHNICIAN Work Phone: [facility] 07-30-2022 08:21-0500 Diastolic blood pressure 72 mm[Hg] Kathleen Maurice MAINTENANCE PLANNER.TRANSPORTATION ENGINEERING TECHNICIAN Work Phone: [facility] 07-30-2022 08:21-0500 Heart rate 90 /min Kathleen Maurice MAINTENANCE PLANNER.TRANSPORTATION ENGINEERING TECHNICIAN Work Phone: [facility] 07-30-2022 08:21-0500 Respiratory rate 18 /min Kathleen Maurice MAINTENANCE PLANNER.TRANSPORTATION ENGINEERING TECHNICIAN Work Phone: [facility] 07-30-2022 08:21-0500 SaO2% (BldA) [Mass fraction] 98 % Kathleen Maurice MAINTENANCE PLANNER.TRANSPORTATION ENGINEERING TECHNICIAN Work Phone: [facility] 07-30-2022 08:21-0500 Systolic blood pressure 114 mm[Hg] Kathleen Maurice MAINTENANCE PLANNER.TRANSPORTATION ENGINEERING TECHNICIAN Work Phone: [facility] 07-20-2022 09:15-0500 Body height 160 cm Pulm Wstr Work Phone: [facility] 07-20-2022 09:15-0500 Body weight 55.79 kg Pulm Wstr Work Phone: [facility] 07-20-2022 09:15-0500 Heart rate 90 /min Pulm Wstr Work Phone: [facility] 07-20-2022 09:15-0500 Respiratory rate 14 /min Pulm Wstr Work Phone: [facility] 07-20-2022 09:15-0500 SaO2% (BldA) [Mass fraction] 100 % Pulm Wstr Work Phone: [facility] 07-06-2022 16:29-0500 Body temperature 97.39 [degF] Chantel Shah MAINTENANCE PLANNER.TRANSPORTATION ENGINEERING TECHNICIAN Work Phone: [facility] 07-06-2022 16:29-0500 Body weight 56.25 kg Chantel Shah MAINTENANCE PLANNER.TRANSPORTATION ENGINEERING TECHNICIAN Work Phone: [facility] 07-06-2022 16:29-0500 Diastolic blood pressure 68 mm[Hg] Chantel Shah MAINTENANCE PLANNER.TRANSPORTATION ENGINEERING TECHNICIAN Work Phone: [facility] 07-06-2022 16:29-0500 Heart rate 96 /min Chantel Shah MAINTENANCE PLANNER.TRANSPORTATION ENGINEERING TECHNICIAN Work Phone: [facility] 07-06-2022 16:29-0500 Respiratory rate 16 /min Chantel Shah MAINTENANCE PLANNER.TRANSPORTATION ENGINEERING TECHNICIAN Work Phone: [facility] 07-06-2022 16:29-0500 SaO2% (BldA) [Mass fraction] 98 % Chantel Shah MAINTENANCE PLANNER.TRANSPORTATION ENGINEERING TECHNICIAN Work Phone: [facility] 07-06-2022 16:29-0500 Systolic blood pressure 110 mm[Hg] Chantel Shah MAINTENANCE PLANNER.TRANSPORTATION ENGINEERING TECHNICIAN Work Phone: [facility] 07-05-2022 12:06-0500 Body temperature 98.01 [degF] Diamond Podlogar MAINTENANCE PLANNER.TRANSPORTATION ENGINEERING TECHNICIAN Work Phone: [facility] 07-05-2022 12:06-0500 Body weight 56.25 kg Diamond Podlogar MAINTENANCE PLANNER.TRANSPORTATION ENGINEERING TECHNICIAN Work Phone: [facility] 07-05-2022 12:06-0500 Diastolic blood pressure 92 mm[Hg] Diamond Podlogar MAINTENANCE PLANNER.TRANSPORTATION ENGINEERING TECHNICIAN Work Phone: [facility] 07-05-2022 12:06-0500 Heart rate 97 /min Diamond Podlogar MAINTENANCE PLANNER.TRANSPORTATION ENGINEERING TECHNICIAN Work Phone: [facility] 07-05-2022 12:06-0500 Respiratory rate 16 /min Diamond Podlogar MAINTENANCE PLANNER.TRANSPORTATION ENGINEERING TECHNICIAN Work Phone: [facility] 07-05-2022 12:06-0500 SaO2% (BldA) [Mass fraction] 98 % Diamond Podlogar MAINTENANCE PLANNER.TRANSPORTATION ENGINEERING TECHNICIAN Work Phone: [facility] 07-05-2022 12:06-0500 Systolic blood pressure 118 mm[Hg] Diamond Podlogar MAINTENANCE PLANNER.TRANSPORTATION ENGINEERING TECHNICIAN Work Phone: [facility] 06-29-2022 16:05-0500 Body temperature 96.8 [degF] Prudencio Pedro MD Work Phone: [facility] 06-29-2022 16:05-0500 Body weight 56.16 kg Prudencio Pedro MD Work Phone: [facility] 06-29-2022 16:05-0500 Diastolic blood pressure 66 mm[Hg] Prudencio Pedro MD Work Phone: [facility] 06-29-2022 16:05-0500 Heart rate 90 /min Prudencio Pedro MD Work Phone: [facility] 06-29-2022 16:05-0500 Respiratory rate 16 /min Prudencio Pedro MD Work Phone: [facility] 06-29-2022 16:05-0500 SaO2% (BldA) [Mass fraction] 99 % Prudencio Pedro MD Work Phone: [facility] 06-29-2022 16:05-0500 Systolic blood pressure 104 mm[Hg] Prudencio Pedro MD Work Phone: [facility] 04-09-2022 11:39-0400 Body temperature 97.59 [degF] Diamond Podlogar MAINTENANCE PLANNER.TRANSPORTATION ENGINEERING TECHNICIAN Work Phone: [facility] 04-09-2022 11:39-0400 Body weight 53.71 kg Diamond Podlogar MAINTENANCE PLANNER.TRANSPORTATION ENGINEERING TECHNICIAN Work Phone: [facility] 04-09-2022 11:39-0400 Diastolic blood pressure 90 mm[Hg] Diamond Podlogar MAINTENANCE PLANNER.TRANSPORTATION ENGINEERING TECHNICIAN Work Phone: [facility] 04-09-2022 11:39-0400 Heart rate 92 /min Diamond Podlogar MAINTENANCE PLANNER.TRANSPORTATION ENGINEERING TECHNICIAN Work Phone: [facility] 04-09-2022 11:39-0400 Respiratory rate 18 /min Diamond Podlogar MAINTENANCE PLANNER.TRANSPORTATION ENGINEERING TECHNICIAN Work Phone: [facility] 04-09-2022 11:39-0400 SaO2% (BldA) [Mass fraction] 100 % Diamond Podlogar MAINTENANCE PLANNER.TRANSPORTATION ENGINEERING TECHNICIAN Work Phone: [facility] 04-09-2022 11:39-0400 Systolic blood pressure 112 mm[Hg] Diamond Podlogar MAINTENANCE PLANNER.TRANSPORTATION ENGINEERING TECHNICIAN Work Phone: [facility] 03-18-2022 11:26-0400 Diastolic blood pressure 69 mm[Hg] [facility] Work Phone: 03-18-2022 11:26-0400 Heart rate 81 /min [facility] Work Phone: 03-18-2022 11:26-0400 Respiratory rate 15 /min [facility] Work Phone: 03-18-2022 11:26-0400 SaO2% (BldA) [Mass fraction] 98 % [facility] Work Phone: 03-18-2022 11:26-0400 Systolic blood pressure 127 mm[Hg] [facility] Work Phone: 03-18-2022 09:48-0400 Body height 162.56 cm [facility] Work Phone: 03-18-2022 09:48-0400 Body mass index (BMI) [Ratio] 20 kg/m2 [facility] Work Phone: 03-18-2022 09:48-0400 Body temperature 97.9 [degF] [facility] Work Phone: 03-18-2022 09:48-0400 Body weight 53.07 kg [facility] Work Phone: 02-18-2022 10:00-0400 Body weight 53.16 kg Prudencio Pedro MD Work Phone: [facility] 02-18-2022 10:00-0400 Diastolic blood pressure 76 mm[Hg] Prudencio Pedro MD Work Phone: [facility] 02-18-2022 10:00-0400 Heart rate 94 /min Prudencio Pedro MD Work Phone: [facility] 02-18-2022 10:00-0400 Respiratory rate 18 /min Prudencio Pedro MD Work Phone: [facility] 02-18-2022 10:00-0400 SaO2% (BldA) [Mass fraction] 100 % Prudencio Pedro MD Work Phone: [facility] 02-18-2022 10:00-0400 Systolic blood pressure 116 mm[Hg] Prudencio Pedro MD Work Phone: [facility] 01-26-2022 11:03-0400 Body temperature 97.9 [degF] Diamond Podlogar MAINTENANCE PLANNER.TRANSPORTATION ENGINEERING TECHNICIAN Work Phone: [facility] 01-26-2022 11:03-0400 Body weight 52.44 kg Diamond Podlogar MAINTENANCE PLANNER.TRANSPORTATION ENGINEERING TECHNICIAN Work Phone: [facility] 01-26-2022 11:03-0400 Diastolic blood pressure 86 mm[Hg] Diamond Podlogar MAINTENANCE PLANNER.TRANSPORTATION ENGINEERING TECHNICIAN Work Phone: [facility] 01-26-2022 11:03-0400 Heart rate 85 /min Diamond Podlogar MAINTENANCE PLANNER.TRANSPORTATION ENGINEERING TECHNICIAN Work Phone: [facility] 01-26-2022 11:03-0400 Respiratory rate 16 /min Diamond Podlogar MAINTENANCE PLANNER.TRANSPORTATION ENGINEERING TECHNICIAN Work Phone: [facility] 01-26-2022 11:03-0400 SaO2% (BldA) [Mass fraction] 97 % Diamond Podlogar MAINTENANCE PLANNER.TRANSPORTATION ENGINEERING TECHNICIAN Work Phone: [facility] 01-26-2022 11:03-0400 Systolic blood pressure 104 mm[Hg] Diamond Podlogar MAINTENANCE PLANNER.TRANSPORTATION ENGINEERING TECHNICIAN Work Phone: [facility] Encounters Encounter Date Encounter Type Care Provider Facility Start: 05-27-2025 ambulatory Juvencio Sepulveda lity:[facility] Start: 05-27-2025 End: 05-27-2025 ambulatory Juvencio Colon Facility:[facility] Start: 05-13-2025 End: 05-13-2025 ambulatory Fina Iraheta Facility:[facility] Start: 05-13-2025 End: 05-13-2025 ambulatory Epi Mcdonald Facility:[facility] Start: 05-02-2025 End: 05-02-[address] Juvencio Colon MD -[facility] Work Phone: Start: 05-02-2025 End: 05-02-[address] Fina Iraheta MD Work Phone: -[facility] Start: 04-18-2025 End: 04-18-[address] Fina Iraheta MD Work Phone: -Ultrasound [facility] Start: 04-18-2025 End: 04-18-2025 Patient encounter procedure Gem Ungerer STOCK ANALYST-C -Ultrasound [facility] Work Phone: Start: 04-18-2025 End: 04-18-2025 ambulatory Gem Ungerer Facility:[facility] Start: 04-04-2025 ambulatory Stephenie Blancas ty:[facility] Start: 03-15-2025 End: 03-15-2025 Emergency department patient visit Dr. Fina Iraheta MD Work Phone: -Emergency Department Work Phone: Start: 03-15-2025 End: 03-15-2025 Emergency department patient visit Dr. Fina Iraheta MD Work Phone: -Emergency Department Work Phone: Start: 03-15-2025 End: 03-15-2025 Office outpatient visit 40 minutes Rubina Campos MD Work Phone: [facility] Comment on above: Nausea (Primary Dx); Flatulence; Epigastric pain Start: 03-15-2025 End: 03-16-2025 ambulatory FINA IRAHETA Facility:[facility] Start: 03-11-2025 End: 03-11-2025 Patient encounter procedure Gem Vargaschasidyr STOCK ANALYST-C -[facility] Work Phone: Start: 03-11-2025 End: 03-11-[address] Fina Iraheta MD Work Phone: -[facility] Start: 03-08-2025 End: 03-29-2025 Telephone encounter Ayad Metcalf MAINTENANCE PLANNER.TRANSPORTATION ENGINEERING TECHNICIAN Work Phone: Pulmonary Medicine Comment on above: Refill Request Start: 03-08-2025 End: 03-08-2025 Emergency department patient visit Dr. Fina Iraheta MD Work Phone: -Emergency Department Work Phone: Start: 03-08-2025 End: 03-08-2025 Patient encounter procedure Ginny Jaimes MAINTENANCE PLANNER.TRANSPORTATION ENGINEERING TECHNICIAN Work Phone: [facility] Comment on above: Cough with sputum (P rimary Dx); Right lower quadrant abdominal pain Start: 03-08-2025 End: 03-08-2025 ambulatory GINNY JAIMES Facility:[facility] Start: 02-15-2025 End: 02-15-[address] Fina Iraheta MD -[facility] Work Phone: Start: 02-15-2025 End: 02-15-[address] Fina Iraheta MD Work Phone: -[facility] Start: 02-07-2025 End: 02-07-2025 Patient encounter procedure Lalo Rausch [place] -[facility] Work Phone: Start: 02-07-2025 End: 02-07-[address] Fina Irahtea MD Work Phone: -[facility] Start: 02-07-2025 End: 02-07-2025 Emergency department patient visit Dr. Fina Iraheta MD Work Phone: -Emergency Department Work Phone: Start: 12-28-2024 End: 12-28-2024 Patient encounter procedure Chantel Shah APRN.TRANSPORTATION ENGINEERING TECHNICIAN Work Phone: [facility] Comment on above: Mouth pain (Primary Dx) Start: 12-28-2024 End: 12-28-2024 ambulatory CHANTEL SHAH Facility:[facility] Start: 12-13-2024 End: 12-13-2024 Patient encounter procedure Meagan Ribeiro TRANSPORTATION ENGINEERING TECHNICIAN Work Phone: [facility] Comment on above: COPD with exacerbati on (HCC) (Primary Dx); Tobacco use Start: 12-13-2024 End: 12-13-2024 ambulatory MEAGAN RIBEIRO Facility:[facility] Start: 12-04-2024 End: 12-04-2024 Patient encounter procedure Louie MANNING Work Phone: [facility] Comment on above: Chronic obstructive pulmonary disease with (acute) exacerbation (HCC); Acute upper respiratory infection Start: 12-04-2024 End: 12-04-2024 ambulatory FINA IRAHETA Facility:[facility] Start: 11-28-2024 End: 11-28-2024 Patient encounter procedure Lawrence MANNING -[facility] Work Phone: Start: 11-28-2024 End: 11-28-[address] Hung Cai MD Work Phone: [facility] Work Phone: Start: 11-26-2024 End: 11-26-2024 Emergency department patient visit Dr. Hung Cai MD Work Phone: -Emergency Department Work Phone: Start: 11-19-2024 ambulatory Fina Verduzcoe Facili ty:[facility] Start: 11-07-2024 End: 11-07-2024 ambulatory FINA B MYRTLE Facility:[facility] Start: 11-07-2024 End: 11-07-2024 Patient encounter procedure Julieta Poole DARIUS.TRANSPORTATION ENGINEERING TECHNICIAN Work Phone: [facility] Comment on above: Viral URI (Primary D x); Paresthesias in right hand Start: 11-05-2024 End: 11-05-[address] Fina Iraheta MD -Outpatient [facility] Work Phone: Start: 11-05-2024 End: 11-05-2024 ambulatory [facility] Facility:[facility] Start: 10-04-2024 End: 10-04-2024 Patient encounter procedure Lawrence MANNING -[facility] Work Phone: Start: 10-04-2024 End: 10-04-2024 ambulatory [facility] Facility:[facility] Start: 10-04-2024 End: 10-04-[address] Hung Cai MD Work Phone: [facility] Work Phone: Start: 10-04-2024 End: 10-04-[address] Lucas Marrufo MD -Laboratory Work Phone: Start: 10-04-2024 End: 10-04-2024 ambulatory [facility] Facility:[facility] Start: 09-28-2024 End: 09-28-2024 Follow-up encounter Julieta Poole APRN.[facility] Work Phone: [facility] Start: 09-27-2024 End: 09-27-2024 ambulatory [facility] Facility:[facility] Start: 09-27-2024 End: 09-27-2024 Patient encounter procedure Louie MANNING Work Phone: [facility] Comment on above: URI, acute (Primary Dx) Start: 09-25-2024 End: 09-25-2024 Emergency department patient visit Dr. Hung Cai MD Work Phone: -Emergency Department Work Phone: Start: 09-25-2024 End: 09-25-[address] Hung Cai MD Work Phone: [facility] Work Phone: Start: 09-25-2024 End: 09-25-[address] Epi Mcdonald MD -Laboratory Work Phone: Start: 09-25-2024 End: 09-25-2024 ambulatory Epi Mcdonald Facility:[facility] Start: 09-18-2024 End: 09-18-2024 Subsequent hospital visit by physician Diagnostic Mammo [facility] Mammogram Start: 09-18-2024 ambulatory FINA Sepulveda lity:[facility] Start: 09-14-2024 End: 09-14-[address] Hung Cai MD Work Phone: [facility] Work Phone: Start: 09-14-2024 End: 09-14-[address] Fina Iraheta MD -Radiology, [facility] Work Phone: Start: 09-14-2024 End: 09-14-[address] Fina Iraheta MD -[facility] Work Phone: Start: 09-14-2024 End: 09-14-2024 ambulatory [facility] Facility:[facility] Start: 09-14-2024 End: 09-14-2024 ambulatory [facility] Facility:[facility] Start: 09-12-2024 End: 09-12-[address] Hung Cai MD Work Phone: [facility] Work Phone: Start: 09-12-2024 End: 09-12-[address] Fina Iraheta MD -Laboratory, [facility] Start: 09-11-2024 End: 09-11-2024 Patient encounter procedure Namrata FERNÁNDEZ -[facility] Work Phone: Start: 09-11-2024 End: 09-12-[address] Hung Cai MD Work Phone: [facility] Work Phone: Start: 09-11-2024 End: 09-11-2024 ambulatory [facility] Facility:[facility] Start: 08-29-2024 Encounter for genera l adult medical examination without abnormal findings [facility] Start: 08-22-2024 End: 08-22-2024 Orders Only Ayad Metcalf APRN.TRANSPORTATION ENGINEERING TECHNICIAN Work Phone: Pulmonary Medicine Comment on above: Patient Question Start: 08-20-2024 End: 08-21-2024 Telephone encounter Ayad Metcalf MAINTENANCE PLANNER.TRANSPORTATION ENGINEERING TECHNICIAN Work Phone: [facility] Medicine Comment on above: Results Start: 08-17-2024 End: 08-17-2024 ambulatory [facility] Facility:[facility] Start: 08-17-2024 End: 08-17-2024 Patient encounter procedure Julieta Poole MAINTENANCE PLANNER.TRANSPORTATION ENGINEERING TECHNICIAN Work Phone: [facility] Comment on above: Impacted cerumen of right ear (Primary Dx) Start: 08-16-2024 End: 01-25-2025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 Start: 05-13-2025 Radiologic exam knee complete 4/more views Knee 4 or More Views [facility] Start: 05-13-2025 Patient encounter procedure Registered Clinical -Laboratory Work Phone: Start: 05-13-2025 End: 05-13-2025 Patient encounter procedure Left knee pain -[facility] Work Phone: Start: 04-10-2025 End: 04-10-2025 Patient encounter procedure 04/10/2025 1:30 PM EDT Office Visit Pulmonary Medicine [address] [place] [address] Ayad Metcalf APRN.TRANSPORTATION ENGINEERING TECHNICIAN [address] [place] [address] COUGH F/U Pulmonary Medicine Comment on above: COUGH F/U Start: 03-21-2025 Annual PCP Team [employer] [facility] Disease Visit Annual PCP Team Chronic Disease Visit [facility] Start: 03-19-2025 End: 03-19-2025 Patient encounter procedure 03/19/2025 8:30 AM EDT Office Visit Pulmonary Medicine [address] [place] [address] Ayad Metcalf, MAINTENANCE PLANNER.TRANSPORTATION ENGINEERING TECHNICIAN [address] [place] [address] Cough Pulmonary Medicine Comment on above: Cough Start: 03-18-2025 Influenza vaccination [facility] Start: 03-15-2025 [facility] Start: 03-08-2025 [facility] Start: 02-26-2025 Annual PCP Team [employer] [facility] Disease Visit Annual PCP Team Chronic Disease Visit [facility] Start: 02-12-2025 Annual PCP Team [employer] [facility] [place] Disease Visit Annual PCP Team Chronic Disease Visit [facility] Start: 02-07-2025 [facility] Start: 02-05-2025 Annual PCP Team [employer] [facility] [place] Disease Visit Annual PCP Team Chronic Disease Visit [facility] Start: 01-29-2025 End: 01-29-2025 Patient encounter procedure Pulmonary Medicine Comment on above: 6 month f/u Start: 11-26-2024 [facility] Start: 11-13-2024 End: 11-13-2024 Patient encounter procedure Mammogram Comment on above: Abnormal mammogram [ R92.8] COMP Very very late CB due for bilat Start: 11-05-2024 Digital breast tomosynthesis bilateral BREAST TOMOSYNTHESIS BI [facility] Start: 10-04-2024 Patient referral [facility] Work Phone: Start: 10-04-2024 [facility] Start: 10-02-2024 End: 10-02-2024 ambulatory PULM LAB [facility] Comment on above: Pulmonary emphysema, unspecified emphysema type (HCC) [J43.9] Start: 09-26-2024 End: 09-26-2024 ambulatory PULM LAB [facility] Comment on above: Pulmonary emphysema, unspecified emphysema type (HCC) [J43.9] Start: 09-25-2024 [facility] Start: 09-25-2024 Basic metabolic pane l calcium total METABOLIC PANEL TOTAL CA [facility] Start: 09-25-2024 Blood count complete automated COMPLETE CBC AUTOMATED [facility] Start: 09-25-2024 Collection venous bl ood venipuncture REILLY VENOUS BLD VENIPUNCTURE [facility] Start: 09-25-2024 Cyanocobalamin vitam in b-12 VITAMIN B-12 [facility] Start: 09-25-2024 Dxa bone density henok dy 1/> sites axial skel DXA BONE DENSITY AXIAL [facility] Start: 09-25-2024 Iadna 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 HIV-1 QUANT&REVRSE TRNSCRPJ [facility] Start: 09-25-2024 T cells absolute cd4 count T CELL ABSOLUTE COUNT [facility] Start: 09-25-2024 DXA Bone [Mass/Area] Bone density [facility] Start: 09-18-2024 End: 09-18-2024 Patient encounter procedure Mammogram Comment on above: ANALIA DIAGNOSTIC BILAT ERAL COMP VERY LATE 6 MO FU RIGHT/DUE FOR SHARMIN Start: 09-07-2024 Annual PCP Team [employer] [facility] Disease Visit Annual PCP Team Chronic Disease Visit [facility] Start: 09-07-2024 Covid-19 Vaccine () Covid-19 Vaccine () [facility] Comment on above: Postponed from 03/18 (Declined at this time) Start: 09-07-2024 Depression Screening Depression Scre ening [facility] Start: 09-07-2024 End: 09-07-2024 Patient encounter procedure 09/07/2024 10:00 AM EST Office Visit [facility] [address] [place] [address] Prudencio Pedro MD [address] [place] [address] Annual Exam/colonoscopy due [facility] Comment on above: Annual Exam/colonosc opy due LS Start: 08-14-2024 End: 08-14-2024 Patient encounter procedure 08/14/2024 8:00 AM EST Office Visit Pulmonary Medicine [address] [place] [address] Ayad Metcalf, MAINTENANCE PLANNER.TRANSPORTATION ENGINEERING TECHNICIAN [address] [place] [address] Follow up Pulmonary Medicine Comment on above: Follow up Start: 08-01-2024 [facility] Start: 07-27-2024 End: 07-27-2024 Patient encounter procedure 07/27/2024 1:00 PM EST Office Visit Pulmonary Medicine [address] [place], [place] [id number] Ayad Metcalf APRN.TRANSPORTATION ENGINEERING TECHNICIAN [address] [place] [address] Follow up Pulmonary Medicine Comment on above: Follow up Start: 07-04-2024 End: 07-04-2024 Patient encounter procedure 07/04/2024 3:30 PM EST Office Visit Pulmonary Medicine [address] [place] [address] Stephenie Arrieta, PA-C [address] [facility] [place] [address] 8 mo fu Pulmonary Medicine Comment on above: 8 mo fu Start: 05-01-2024 End: 05-01-2024 Patient encounter procedure 05/01/2024 11:40 AM EDT Office Visit [facility] [address] [place] [address] Prudencio Pedro MD [address] [place] [address] 2 month follow up [facility] Comment on above: 2 month follow up Start: 04-18-2024 Annual PCP Team Taxic[employer] [facility] Disease Visit Annual PCP Team [facility] [facility] Start: 03-28-2024 End: 03-28-2024 Patient encounter procedure 03/28/2024 8:40 AM EDT Office Visit Family Medicine [facility] [address] [place] [address] Prudencio Pedro MD [address] [place] [address] Pre Op Family Medicine [facility] Comment on above: Pre Op Start: 03-18-2024 Covid-19 Vaccine ( season) Covid-19 Vaccine ( season) [facility] Start: 03-18-2024 Covid-19 Vaccine ( season) Covid-19 Vaccine ( season) [facility] Start: 03-18-2024 Influenza vaccination [facility] Start: 03-14-2024 End: 06-13-2024 CBC W Auto Differential panel - Blood [facility] Work Phone: Comment on above: Expected: 03/14/2024 , Expires: 06/13/2024 Start: 03-14-2024 End: 06-13-2024 Comprehensive metabolic 2000 panel - Serum or Plasma [facility] Comment on above: Expected: 03/14/2024 , Expires: 06/13/2024 Start: 03-12-2024 HPV TESTING HPV TESTING [facility] Start: 03-12-2024 PAP TESTING PAP TESTING [facility] Start: 03-12-2024 Screening for malign ant neoplasm of cervix [facility] Start: 03-02-2024 End: 03-02-2024 Patient encounter procedure 03/02/2024 9:40 AM EDT Office Visit Family [facility] [address] [place] [id number] Prudencio Pedro MD [address] [place] [id number] wound dressing she can not do herself, to painful wet to dry dressing, and wound center closed until tuesday Family [facility] Comment on above: wound dressing she c an not do herself, to painful wet to dry dressing, and wound center closed until tuesday Start: 03-01-2024 ANNUAL PCP TEAM FAGOTER VIOLETTE DISEASE VISIT ANNUAL PCP TEAM CHRONIC DISEASE VISIT [facility] Start: 02-27-2024 End: 02-27-2024 Patient encounter procedure Family [facility] Comment on above: 2 week follow up/[facility] injury Hospital follow updi scharged 02/21/24 Start: 02-15-2024 End: 02-15-2024 Patient encounter procedure 02/15/2024 11:00 AM EDT Office Visit Pulmonary Medicine [address] [place] [phone] Stephenie Arrieta PA-C [address] [place] [id number] 3 mo fu Pulmonary Medicine Comment on above: 3 mo fu Start: 02-13-2024 End: 02-13-2024 Patient encounter procedure 02/13/2024 9:00 AM EDT Office Visit Family Medicine [facility] [address] [place] [address] PodDi[employer] del toro APRN.TRANSPORTATION ENGINEERING TECHNICIAN [address] [place] [address] follow up foot from 02/05 [facility] [place] Comment on above: follow up foot from 02/05 Start: 01-15-2024 Influenza vaccination Influenza Vacc ine (#1) [facility] Comment on above: Postponed from 03/18 (Declined at this time) Start: 11-22-2023 End: 11-22-2023 Patient encounter procedure Mammogram Comment on above: Comp- bilateral pt d ue for her screening also 6 mo call back from 05/18/2023 6 mo call back from 05/18/2023 Start: 11-18-2023 ANNUAL PCP TEAM FAGOTER VIOLETTE DISEASE VISIT ANNUAL PCP TEAM CHRONIC DISEASE VISIT [facility] Start: 11-14-2023 End: 11-14-2023 Patient encounter procedure 11/14/2023 10:30 AM EDT Appointment Ambulatory Surgery [address] [place] [address] Oskar Taylor MD [address] [place] [address] Screening for colon cancer [Z12.11] Ambulatory Surgery Comment on above: Screening for colon cancer [Z12.11] Start: 09-13-2023 Mammography [facility] Start: 09-13-2023 Screening for malign ant neoplasm of breast Mammogram Screening [facility] Start: 09-02-2023 ANNUAL PCP TEAM FAGOTER VIOLETTE DISEASE VISIT ANNUAL PCP TEAM CHRONIC DISEASE VISIT [facility] Start: 07-18-2023 Behavioral Health Screening Behavioral Health Screening [facility] Start: 07-18-2023 Depression Assessment Depression Ass essment [facility] Start: 07-18-2023 zzBehavioral Health Screening zzBehavioral Health Screening [facility] Start: 04-20-2023 End: 11-18-2023 ANALIA DIAGNOSTIC RIGHT ANALIA DIAGNOSTIC RIGHT Radiology Routine Abnormal mammogram Expected: 04/20/2023, Expires: 11/18/2023 [facility] Work Phone: Comment on above: Expected: 04/20/2023 , Expires: 11/18/2023 Start: 04-20-2023 End: 11-18-2023 US BREAST LTD RIGHT US BREAST LTD RIGHT Radiology Routine Abnormal mammogram Expected: 04/20/2023, Expires: 11/18/2023 [facility] Work Phone: Comment on above: Expected: 04/20/2023 , Expires: 11/18/2023 Start: 03-18-2023 Covid-19 Vaccine () Covid-19 Vaccine () [facility] Start: 03-18-2023 Influenza vaccination [facility] Start: 02-16-2023 End: 04-18-2023 Bacteria identified in Urine by Culture [facility] Work Phone: Comment on above: Expected: 02/16/2023 , Expires: 04/18/2023 Start: 11-17-2022 End: 01-17-2023 25-hydroxyvitamin D3 [Mass/volume] in Serum or Plasma [facility] Work Phone: Comment on above: Expected: 11/17/2022 , Expires: 01/17/2023 Start: 09-07-2022 End: 09-21-2022 Influenza virus A and B RNA and SARS-CoV-2 (COVID-19) N gene panel - Respiratory specimen by TESHA with probe detection [facility] Work Phone: Comment on above: Expected: 09/07/2022 , Expires: 09/21/2022 Start: 08-25-2022 Patient referral [facility] Work Phone: Start: 08-24-2022 COVID-19 VACCINE (6 - Pfizer risk series) COVID-19 VACCINE (6 - Pfizer risk series) [facility] Start: 08-04-2022 End: 10-04-2022 25-hydroxyvitamin D3 [Mass/volume] in Serum or Plasma VITAMIN D 25 HYDROXY Lab Routine Vitamin D deficiency Expected: 08/04/2022, Expires: 10/04/2022 [facility] Work Phone: Comment on above: Expected: 08/04/2022 , Expires: 10/04/2022 Start: 08-02-2022 End: 10-02-2022 25-hydroxyvitamin D3 [Mass/volume] in Serum or Plasma [facility] Work Phone: Comment on above: Expected: 08/02/2022 , Expires: 10/02/2022 Start: 08-02-2022 End: 10-02-2022 Comprehensive metabolic 2000 panel - Serum or Plasma [facility] Work Phone: Comment on above: Expected: 08/02/2022 , Expires: 10/02/2022 Start: 08-02-2022 End: 10-02-2022 Ferritin [Mass/volume] in Serum or Plasma [facility] Work Phone: Comment on above: Expected: 08/02/2022 , Expires: 10/02/2022 Start: 08-02-2022 End: 10-02-2022 Hemoglobin A1c in Blood [facility] Work Phone: Comment on above: Expected: 08/02/2022 , Expires: 10/02/2022 Start: 08-02-2022 End: 10-02-2022 Hepatitis C virus Ab [Presence] in Serum [facility] Work Phone: Comment on above: Expected: 08/02/2022 , Expires: 10/02/2022 Start: 08-02-2022 End: 10-02-2022 Iron and Iron binding capacity panel - Serum or Plasma [facility] Work Phone: Comment on above: Expected: 08/02/2022 , Expires: 10/02/2022 Start: 08-02-2022 End: 10-02-2022 Thyrotropin [Units/volume] in Serum or Plasma [facility] Work Phone: Comment on above: Expected: 08/02/2022 , Expires: 10/02/2022 Start: 07-18-2022 DEPRESSION ASSESSMENT DEPRESSION ASS ESSMENT [facility] Start: 03-18-2022 Influenza vaccination INFLUENZA (#1) [facility] Start: 01-26-2022 Procedure [facility] Work Phone: Start: 01-24-2022 COVID-19 VACCINE (5 - Booster for Pfizer series) COVID-19 VACCINE (5 - Booster for Pfizer series) [facility] Start: 11-19-2021 COVID-19 VACCINE (5 - Booster for Pfizer series) COVID-19 VACCINE (5 - Booster for Pfizer series) [facility] Start: 07-18-2021 DEPRESSION ASSESSMENT DEPRESSION ASS ESSMENT [facility] Start: 04-24-2021 PNEUMOCOCCAL (3 - PP SV23 if available, else PCV20) PNEUMOCOCCAL (3 - PPSV23 if available, else PCV20) [facility] Start: 04-24-2021 PNEUMOCOCCAL (3 - PP SV23 or PCV20) PNEUMOCOCCAL (3 - PPSV23 or PCV20) [facility] Start: 05-10-2020 Adult depression screening assessment DEPRESSION SCREENING [facility] Start: 03-12-2020 Mammography MAMMOGRAM [facility] Start: 03-12-2020 Screening for malign ant neoplasm of cervix Cervical Cancer Screening [facility] Start: 01-08-2018 Influenza vaccination LUNG CANCER SC REENING [facility] Start: 01-08-2018 Screening for malign ant neoplasm of lung Lung Cancer Screening [facility] Start: 01-08-2013 COLOGUARD (FIT-DNA) COLOGUARD (FIT-D NA) [facility] Start: 01-08-2013 Colonoscopy COLONOSCOPY [facility] Start: 01-08-2013 COLORECTAL CANCER SCREENING COLORECTAL CANCER SCREENING [facility] Start: 01-08-[address] COLONOGRAPHY [facility] Start: 01-08-2013 DIABETES SCREEN DIABETES SCREEN [facility] Start: 01-08-2013 FECAL OCCULT BLOOD FECAL OCCULT BLOO D [facility] Start: 01-08-2013 LIPID SCREEN LIPID SCREEN [facility] Start: 01-08-2013 Screening for malign ant neoplasm of colon [facility] Start: 01-08-2013 SIGMOIDOSCOPY SIGMOIDOSCOPY [facility] Start: 01-08-1998 Zoledronic acid therapy ALPHA- 1 ANTITRYPSIN DEFICIENCY SCREENING [facility] Start: 01-08-1987 HEPATITIS A (1 of 2 - Risk 2-dose series) HEPATITIS A (1 of 2 - Risk 2-dose series) [facility] Start: 01-08-1987 Hepatitis A Vaccine (1 of 2 - Risk 2-dose series) Hepatitis A Vaccine (1 of 2 - Risk 2-dose series) [facility] Start: 01-08-1987 HEPATITIS B (1 of 3 - Risk 3-dose series) HEPATITIS B (1 of 3 - Risk 3-dose series) [facility] Start: 01-08-1987 Hepatitis B Vaccine (1 of 3 - 19+ 3-dose series) Hepatitis B Vaccine (1 of 3 - 19+ 3-dose series) [facility] Start: 01-08-1987 SHINGRIX VACCINE (1 of 2) SHINGRIX VACCINE (1 of 2) [facility] Start: 01-08-1987 Urine microalbumin profile DTAP,TDAP,TD (1 - Tdap) [facility] Start: 01-08-1986 Depression Screening Depression Scre ening [facility] Start: 01-08-1986 HEPATITIS C SCREENING HEPATITIS C SC REENING [facility] Start: 01-08-1986 MMR (1 of 2 - Risk 2-dose series) MMR (1 of 2 - Risk 2-dose series) [facility] Start: 01-08-1973 COVID-19 VACCINE (#1) COVID-19 VACCI NE (#1) [facility] Start: 01-08-1970 MENINGOCOCCAL CONJUG ATE (1 - Risk 2-dose series) MENINGOCOCCAL CONJUGATE (1 - Risk 2-dose series) [facility] Start: 01-08-1970 Meningococcal Conjug ate Vaccine (1 - Risk 2-dose series) Meningococcal Conjugate Vaccine (1 - Risk 2-dose series) [facility] Start: 01-08-1969 HEPATITIS A (1 of 2 - Risk 2-dose series) HEPATITIS A (1 of 2 - Risk 2-dose series) [facility] Start: 1968 MENINGOCOCCAL CONJUG ATE (1 - Risk start 2-23 months series) MENINGOCOCCAL CONJUGATE (1 - Risk start 2-23 months series) [facility] Start: 1968 HEPATITIS B (1 of 3 - 3-dose series) HEPATITIS B (1 of 3 - 3-dose series) [facility] Start: 1968 Hepatitis B Vaccine (1 of 3 - 3-dose series) Hepatitis B Vaccine (1 of 3 - 3-dose series) [facility] Bacteria identified in Urine by Culture BACTERIAL CULTURE, URINE Microbiology Routine Urinary frequency 07/31/2024 9:42 AM EST [facility] BACTERIAL VAGINOSIS AMPLIFICATION BACTERIAL VAGINOSIS AMPLIFICATION Lab Routine Vaginal discharge 08/09/2022 1:42 PM [facility] Work Phone: BACTERIAL VAGINOSIS NAAT BACTERI AL VAGINOSIS NAAT Lab Routine Vaginal discharge 07/31/2024 9:42 AM [facility] Banana IgE Ab [Units/volume] in Serum [facility] Basophil count [facility] Basophil percent differential count [facility] Beef IgE Ab [Units/volume] in Serum [facility] DESTINEE / TRICHOMONA S AMPLIFICATION DESTINEE / TRICHOMONAS AMPLIFICATION Microbiology Routine Vaginal discharge 08/09/2022 1:42 PM EST [facility] Work Phone: DESTINEE/TRICHOMONAS NAAT DESTINEE /TRICHOMONAS NAAT Lab Routine Vaginal discharge 07/31/2024 9:42 AM [facility] Work Phone: CD3+CD4+ (T4 helper) cells [#/volume] in Blood [facility] Chlamydia trachomatis+Neisseria gonorrhoeae DNA [Presence] in Unspecified specimen by TESHA with probe detection GC/CHLAMYDIA DNA DET Lab Routine Vaginal discharge 08/09/2022 1:42 PM EST [facility] Work Phone: Chocolate IgE Ab [Units/volume] in Serum [facility] Cobalamin (Vitamin B 12) [Mass/volume] in Serum or Plasma [facility] Codfish IgE Ab [Units/volume] in Serum [facility] COLOGUARD COLOGUARD Lab Ro utine Screening for colon cancer Ordered: 08/02/2022 [facility] Work Phone: Comment on above: Ordered: 08/02/2022 [place] IgE Ab [Units/volume] in Serum [facility] COVID & INFLUENZA A/ B & RSV PCR, ROUTINE COVID & INFLUENZA A/B & RSV PCR, ROUTINE Microbiology Routine Viral URI with cough COPD with exacerbation (HCC) Suspected COVID-19 virus infection 03/20/2024 10:23 AM EDT [facility] Work Phone: COVID & INFLUENZA A/ B & RSV PCR, ROUTINE COVID & INFLUENZA A/B & RSV PCR, ROUTINE Microbiology Routine Respiratory infection Ordered: 05/27/2024 [facility] Work Phone: Comment on above: Ordered: 05/27/2024 COVID & INFLUENZA A/ B & RSV PCR, ROUTINE COVID & INFLUENZA A/B & RSV PCR, ROUTINE Microbiology Routine URI, acute Ordered: 09/27/2024 [facility] Work Phone: Comment on above: Ordered: 09/27/2024 Cow milk IgE Ab [Units/volume] in Serum [facility] CT Unspecified body region WO contrast [facility] ECG COMPLETE [facility] Work Phone: Comment on above: Ordered: 03/21/2024 Eosinophil percent differential count [facility] Eosinophils [#/volum e] in Blood [facility] Erythrocyte mean corpuscular volume determination [facility] Food RAST [facility] Granulocyte percent differential count [facility] Hematocrit [Volume Fraction] of Blood [facility] Hemoglobin [Mass/vol ume] in Blood [facility] Hemoglobin distribut ion, width determination [facility] Hemoglobin.gastroint conner nal.lower [Presence] in Stool by Immunoassay FECAL OCCULT BLOOD TEST Lab Routine Encounter for screening fecal occult blood testing Ordered: 08/18/2022 [facility] Work Phone: Comment on above: Ordered: 08/18/2022 HIV 1 RNA [#/volume] (viral load) in Unspecified specimen by TESHA with probe detection [facility] Work Phone: HIV 1 RNA [#/volume] (viral load) in Unspecified specimen by TESHA with probe detection [facility] HIV 1 RNA [#/volume] (viral load) in Unspecified specimen by TESHA with probe detection [facility] HIV 1 RNA [Log #/vol ume] (viral load) in Unspecified specimen by TESHA with probe detection [facility] Work Phone: HIV 1 RNA [Log #/vol ume] (viral load) in Unspecified specimen by TESHA with probe detection [facility] HIV 1 RNA [Log #/vol ume] (viral load) in Unspecified specimen by TESHA with probe detection [facility] End: 08-02-2023 HOME SLEEP APNEA TEST (HSAT) HOME SLEEP APNEA TEST (HSAT) Procedures Routine Fatigue, unspecified type Daytime somnolence 1 Occurrences starting 08/02/2022 until 08/02/2023 [facility] Work Phone: Comment on above: 1 Occurrences starti ng 08/02/2022 until 08/02/2023 Immature granulocyte s [#/volume] in Blood [facility] Influenza virus A an d B RNA and SARS-CoV-2 (COVID-19) N gene panel - Respiratory specimen by TESHA with probe detection COVID WITH FLUA+B, ROUTINE Microbiology Routine Suspected COVID-19 virus infection Ordered: 02/18/2022 [facility] Work Phone: Comment on above: Ordered: 02/18/2022 Influenza virus A an d B RNA and SARS-CoV-2 (COVID-19) N gene panel - Respiratory specimen by TESHA with probe detection COVID WITH FLUA+B, ROUTINE Microbiology Routine Symptoms of upper respiratory infection (URI) Cough, unspecified type 04/09/2022 12:10 PM EDT [facility] Work Phone: Leukocytes [#/volume ] in Blood [facility] End: 03-20-2023 LUNG VOLUMES LUNG VOLUMES PFT Routine Persistent cough Tobacco use 1 Occurrences starting 02/18/2022 until 03/20/2023 [facility] Work Phone: Comment on above: 1 Occurrences starti ng 02/18/2022 until 03/20/2023 End: 09-21-2025 LUNG VOLUMES LUNG VOLUMES PFT Routine Pulmonary emphysema, unspecified emphysema type (HCC) 1 Occurrences starting 08/22/2024 until 09/21/2025 [facility] Comment on above: 1 Occurrences starti ng 08/22/2024 until 09/21/2025 Lymphocyte count [facility] Lymphocyte percent differential count [facility] End: 06-16-2024 ANALIA DIAGNOSTIC RIGHT ANALIA DIAGNOSTIC RIGHT Radiology Routine Abnormal mammogram 1 Occurrences starting 05/18/2023 until 06/16/2024 [facility] Work Phone: Comment on above: 1 Occurrences starti ng 05/18/2023 until 06/16/2024 Mean corpuscular hemoglobin concentration determination [facility] Mean corpuscular hemoglobin determination [facility] End: 11-30-2024 MG Breast - bilateral Diagnostic ANALIA DIAGNOSTIC BILATERAL Radiology Routine Abnormal mammogram 1 Occurrences starting 11/01/2023 until 11/30/2024 [facility] Work Phone: Comment on above: 1 Occurrences starti ng 11/01/2023 until 11/30/2024 MG Breast - bilatera l Screening [facility] End: 11-17-2024 MG Breast Screening ANALIA SCREENING Radiology Routine Encounter for screening mammogram for breast cancer 1 Occurrences starting 10/19/2023 until 11/17/2024 [facility] Work Phone: Comment on above: 1 Occurrences starti ng 10/19/2023 until 11/17/[address] [facility] Monocyte percent differential count [facility] Neutrophil count [facility] Neutrophil percent differential count [facility] Nucleated red blood cell count procedure [facility] Patient Education [facility] Work Phone: Patient referral [facility] Work Phone: Peanut IgE Ab [Units/volume] in Serum [facility] Percentage CD4 (T4 cells) count [facility] Platelet count [facility] Pork IgE Ab [Units/volume] in Serum [facility] Procedure [facility] Work Phone: PT ED OBSTETRICS & GYNECOLOGY PT ED OBSTETRICS & GYNECOLOGY Other 07/30/2022 [facility] Work Phone: End: 09-25-2023 Radiologic exam chest 2 views XR CHEST 2V FRONTAL/LAT Radiology Routine Chronic obstructive pulmonary disease, unspecified COPD type (HCC) 1 Occurrences starting 08/27/2022 until 09/25/2023 [facility] Work Phone: Comment on above: 1 Occurrences starti ng 08/27/2022 until 09/25/2023 Red blood cell count [facility] Reticulocyte percent count [facility] [place] IgE Ab [Units/volume] in Serum [facility] SARS-CoV-2 (COVID-19 ) RNA [Presence] in Respiratory specimen by TESHA with probe detection 2019 [facility] Microbiology Routine Symptoms of upper respiratory infection (URI) Cough, unspecified type Ordered: 04/09/2022 [facility] Work Phone: Comment on above: Ordered: 04/09/2022 End: 09-07-2024 Screening colonoscopy COLONOSCOPY SCREENING Endoscopy Routine Screening for colon cancer 1 Occurrences starting 09/07/2023 until 09/07/2024 [facility] Work Phone: Comment on above: 1 Occurrences starti ng 09/07/2023 until 09/07/2024 End: 02-19-2023 Screening mammography bi 2-view breast inc cad ANALIA SCREENING Radiology Routine Encounter for screening mammogram for breast cancer 1 Occurrences starting 01/20/2022 until 02/19/2023 [facility] Work Phone: Comment on above: 1 Occurrences starti ng 01/20/2022 until 02/19/2023 Shrimp IgE Ab [Units/volume] in Serum [facility] [place] IgE Ab [Units/volume] in Serum [facility] End: 03-20-2023 SPIROMETRY - BASELINE AND POST DILATOR SPIROMETRY - BASELINE AND POST DILATOR PFT Routine Persistent cough Tobacco use 1 Occurrences starting 02/18/2022 until 03/20/2023 [facility] Work Phone: Comment on above: 1 Occurrences starti ng 02/18/2022 until 03/20/2023 End: 09-25-2023 SPIROMETRY WITH DILATOR IF OBSTRUCTED SPIROMETRY WITH DILATOR IF OBSTRUCTED PFT Routine Chronic obstructive pulmonary disease, unspecified COPD type (HCC) 1 Occurrences starting 08/27/2022 until 09/25/2023 [facility] Work Phone: Comment on above: 1 Occurrences starti ng 08/27/2022 until 09/25/2023 End: 04-12-2024 SPIROMETRY WITH DILATOR IF OBSTRUCTED SPIROMETRY WITH DILATOR IF OBSTRUCTED PFT Routine Centrilobular emphysema (HCC) 1 Occurrences starting 03/14/2023 until 04/12/2024 [facility] Work Phone: Comment on above: 1 Occurrences starti ng 03/14/2023 until 04/12/2024 SPIROMETRY WITH DILA TOR IF OBSTRUCTED SPIROMETRY WITH DILATOR IF OBSTRUCTED PFT Routine Centrilobular emphysema (HCC) 11/09/2023 9:58 AM EDT [facility] Work Phone: End: 09-21-2025 SPIROMETRY WITH DILATOR IF OBSTRUCTED SPIROMETRY WITH DILATOR IF OBSTRUCTED PFT Routine Pulmonary emphysema, unspecified emphysema type (HCC) 1 Occurrences starting 08/22/2024 until 09/21/2025 [facility] Work Phone: Comment on above: 1 Occurrences starti ng 08/22/2024 until 09/21/2025 Tuna IgE Ab [Units/volume] in Serum [facility] US Abdomen limited [facility] End: 06-16-2024 US BREAST LTD RIGHT US BREAST LTD RIGHT Radiology Routine Abnormal mammogram 1 Occurrences starting 05/18/2023 until 06/16/2024 [facility] Work Phone: Comment on above: 1 Occurrences starti ng 05/18/2023 until 06/16/2024 Wheat IgE Ab [Units/volume] in Serum [facility] Whole Egg IgE Ab [Units/volume] in Serum [facility] Immunizations Immunization Date Immunization Notes Care Provider Melita harris 04-16-2024 influenza, seasonal, injectable, preservative free Dr. Fina Iraheta MD Work Phone: [facility] 05-02-2023 influenza, injectabl e, quadrivalent, preservative free Dr. Fina Iraheta MD Work Phone: [facility] 08-02-2022 pneumococcal (PCV20) vaccine, 20 valent (PREVNAR 20) Diamond Bright MAINTENANCE PLANNER.TRANSPORTATION ENGINEERING TECHNICIAN Work Phone: [facility] 08-02-2022 pneumococcal Conjuga te, unspecified formulation Diamond Bright MAINTENANCE PLANNER.TRANSPORTATION ENGINEERING TECHNICIAN Work Phone: [facility] Work Phone: 07-06-2022 tetanus toxoid, redu maximus diphtheria toxoid, and acellular pertussis vaccine, adsorbed Chantel Pablo MAINTENANCE PLANNER.TRANSPORTATION ENGINEERING TECHNICIAN Work Phone: [facility] Work Phone: 06-29-2022 COVID-19 booster vaccine, age 12+ yr, bivalent (PFIZER-BIONTECH) Prudencio Pedro MD Work Phone: [facility] 05-28-2022 influenza, injectabl e, quadrivalent, preservative free Kathleen Maurice MAINTENANCE PLANNER.TRANSPORTATION ENGINEERING TECHNICIAN Work Phone: [facility] 05-28-2022 influenza virus vaccine, unspecified formulation Rob Chirinos MAINTENANCE PLANNER.TRANSPORTATION ENGINEERING TECHNICIAN Work Phone: [facility] 09-24-2021 Covid (Pfizer) Dr. Fina Iraheta MD Work Phone: [facility] 04-22-2021 influenza, injectabl e, quadrivalent, preservative free Kathleen Maurice MAINTENANCE PLANNER.TRANSPORTATION ENGINEERING TECHNICIAN Work Phone: [facility] 03-18-2021 Covid (Pfizer) Dr. Fina Iraheta MD Work Phone: [facility] 10-22-2020 Covid (Pfizer) Dr. Fina Iraheta MD Work Phone: [facility] 10-02-2020 Covid (Pfizer) Dr. Fina Iraheta MD Work Phone: [facility] 04-24-2020 influenza, injectabl e, quadrivalent, preservative free Prudencio ePdro MD Work Phone: [facility] Work Phone: 04-24-2020 pneumococcal conjuga te vaccine, 13 valent Prudencio Pedro MD Work Phone: [facility] Work Phone: 05-10-2019 influenza, injectabl e, quadrivalent, contains preservative Prudencio Pedro MD Work Phone: [facility] 05-10-2019 influenza, injectabl e, quadrivalent, preservative free Dr. Fina Iraheta MD Work Phone: [facility] 12-26-2014 pneumococcal polysaccharide vaccine, 23 valent Prudnecio Pedro MD Work Phone: [facility] Payers Date Payer Category Payer Unknown [id number] 2024 Self-pay [id number] 2022 Unknown [id number] 2017 Medicaid [employer] [place] [id number] 2017-Present [phone] [address] [address] [place] [address] Medicaid [id number]. [id number] 2017 Medicaid [id number] 1.13.159.2.7.3. [id number] Unknown [id number] 2.16.840.1.074831.3.579.2.462 Unknown [id number] 2.16.840.1.513145.3.579.2.462 Unknown [id number] 2.16.840.1.132101.3.579.2.462 Unknown [id number] 2.16.840.1.860049.3.579.2.462 Unknown [id number] 2.16.840.1.636582.3.579.2.462 Unknown [id number] 2.16.840.1.811851.3.579.2.462 Unknown [id number] 2.16.840.1.407388.3.579.2.462 Unknown [id number] 2.16.840.1.128895.3.579.2.462 Unknown [id number] 2.16.840.1.072274.3.579.2.462 Unknown [id number] 2.16.840.1.500537.3.579.2.462 Unknown [id number] 2.16.840.1.027145.3.579.2.462 Unknown [id number] 2.16.840.1.531834.3.579.2.462 Unknown [id number] 2.16.840.1.762174.3.579.2.462 Unknown [id number] 2.16.840.1.898777.3.579.2.462 Unknown [id number] 2.16.840.1.605768.3.579.2.462 Unknown [id number] 2.16.840.1.139238.3.579.2.462 Unknown [id number] 2.16.840.1.766456.3.579.2.462 Unknown [id number] 2.16.840.1.441044.3.579.2.462 Unknown [id number] 2.16.840.1.169695.3.579.2.462 Unknown [id number] 2.16.840.1.016019.3.579.2.462 Unknown [id number] 2.16.840.1.852888.3.579.2.462 Unknown [id number] 2.16.840.1.637194.3.579.2.462 Unknown [id number] 2.16.840.1.932929.3.579.2.462 Unknown [id number] 2.16.840.1.021767.3.579.2.462 Unknown [id number] 2.16.840.1.344331.3.579.2.462 Unknown [id number] 2.16.840.1.532238.3.579.2.462 Unknown [id number] 2.16.840.1.258667.3.579.2.462 Unknown [id number] 2.16.840.1.020878.3.579.2.462 Unknown [id number] 2.16.840.1.587324.3.579.2.462 Unknown [id number] 2.16.840.1.654282.3.579.2.462 Unknown [id number] 2.16.840.1.505917.3.579.2.462 Unknown [id number] 2.16.840.1.381554.3.579.2.462 Social History Date Type Detail Facility Start: 11-12-2017 End: 05-13-2025 Tobacco smoking status NHIS Smokes tobacco daily [facility] Start: 11-12-2017 End: 11-17-2022 Cigarettes smoked current (pack per day) - Reported 1 [facility] Work Phone: Start: 11-12-2017 End: 03-21-2024 Tobacco use and exposure Smokeless tobacco non-user [facility] Start: 02-20-2020 End: 03-08-2025 Alcohol intake Ex-drinker (finding) [facility] Start: 1970 Sex Assigned At Not on file [facility] Start: 01-16-2022 End: 02-18-2022 Exposure to SARS-CoV-2 (event) Not sure [facility] Start: 05-15-2019 End: 08-30-2023 Tobacco smoking status KSIS Unknown if ever smoked [facility] Start: 1970 Sex Assigned At Female [facility] History of tobacco use Cigarette Smoker [facility] Work Phone: Start: 03-28-2022 End: 04-07-2022 Exposure to SARS-CoV-2 (event) Yes [facility] Start: 09-09-2022 Tobacco Comment Currently smok ing approx 0.5 PPD [facility] Start: 11-17-2022 End: 02-16-2023 Tobacco use panel [facility] Work Phone: Start: 11-12-2017 Adult Depression Screening Assessment 0 [facility] Work Phone: Start: 09-23-2024 End: 10-12-2024 Sex Female (finding) [facility] Medical Equipment Procedure Code Equipment Code Equipment [...] Cognitive function Level Of Cons ciousness Awake;Alert;Appropriate [facility] Work Phone: 03-08-2025 Cognitive function Level Of Cons ciousness Awake;Alert;Appropriate;Follow s Commands [facility] Work Phone: 08-01-2024 Cognitive function Level Of Cons ciousness Awake;Alert;Appropriate [facility] Work Phone: 03-18-2022 Cognitive function Level Of Cons ciousness Awake;Alert;Appropriate [facility] Work Phone: Clinical Notes 01-26-2022 to 05-27-2025 Rubina Campos MD - 03/15/2025 3:04 PM EDT Note Date & Type Note Facility 05-27-2025 Note [facility] Medical Records Department [address] [place] [address] History Physical Exam 05/27/25 1343 MR#: [id number] Acct: [id number] Name: TRACY VAZQUEZ Rep #: [id number] : 1970 55 From: Juvencio Colon MD PCP: Dr. Fina Iraheta MD Status:[facility] Location: [place] [address] History and Physical Date of Admission: 05/27/25 [...] carbonate)-vitamin D3 15 mcg (600 unit) tablet [facility] Medical History (Updated 05/02/25 @ 09:59 [...] apartment current occupational status: employed current occupation: [employer] Smoking Status: Current every day smoker tobacco [...] No back p (more content not included)... [facility] 05-02-2025 Progress note [facility] 04-18-2025 Radiology Diagnostic study note [facility] Imaging Services [address] [place], [place] [id number] Abdomen Limited MR#: [id number] Acct: [id number] Name: TRACY VAZQUEZ Rep #: [id number] : 1970 F 55 From: Yaya Thakur MD PCP: Dr. Fina Iraheta MD Status: R EG CLI Study:Abdomen Limited Date of Exam: 09/11 Exam# [id number] Ordering Dr: Gem Graves STOCK ANALYSTJennifer PROCEDURE: ABDOMEN LIMITED 04/18/2025 REASON FOR EXAM: [...] to 1.3 cm. No hydronephrosis. Reading Location: [id number] CC: PRADEEP Graves; Dr. Fina Iraheta MD ~ Ice Cutter: Signed [facility] 03-15-2025 Note HNO ID: [id number] Author: RUBINA CAMPOS MD Service: ? Author Type: Physician Type: Progress Notes Filed: 03/15/2025 15:07 Note Text: [facility] Carl Vazquez is a 55 year old [...] HANDP Disposition The patient was discharged. Procedures [facility] 03-15-2025 History of Present illness Narrative [facility] Tracy Vazquez is a 55 year [...] was discharged. Procedures documented in this encounter [facility] 03-11-2025 Progress note [facility] 03-11-2025 Progress note Note Date/Time March 11, 2025 9:31am [facility] [address] [place] [address] [place] [address] OFFICE VISIT Date of Service: 03/11/25 MR#: [id number] Acct: [id number] Name: TRACY VAZQUEZ Rep # : [id number] : 1970 Provider: PRADEEP power Ungchasidyr Age/Sex: 55/F Location: [facility] Status: Signed Intake Vital Signs 03/08/25 08:41 03/08/25 13:28 Height 5 ft 2 in 5 ft 2 in Weight: 125 lb BMI 22.8 BP 132/84 H Blood Pressure Location Lt brachial Position Sitting Respiration 18 Pulse 64 Pulse Source Monitor Temp 97.7 F L Temp Source Temporal Pulse Oximetry (%) 99 Oxygen Delivery Method room air Intake Visit Reasons: Hospital Follow Up ([facility]) Chief Complaint: 6 M FU Ob Gyn Required: No Is patient in pain?: No [...] ears looked at as they feel clogged. [facility] Medical History Muscle cramps Rhinitis Breast [...] apartment current occupational status: employed current occupation: [employer] Smoking Status: Current every day smoker tobacco [...] well nourished Orientation: alert and oriented x3 [facility] Head: normal to inspection Ears: hearing [...] Cosigner Signature: Date (if applicable) CC: ~ [facility] [employer] [facility] Work Phone: 1(202) 617-717808-22-2025 Telephone encounter Note* Telephone Encounter - Bubba, Ayad Cartagena APRN.TRANSPORTATION ENGINEERING TECHNICIAN - 03/08/2025 2:25 PM EDT Patient stopped [...] reassess symptoms following treatment. Ayad Metcalf APRN.CNP [facility]08-22-2025 Miscellaneous Notes* Telephone Encounter - Ayad Metcalf [...] Patient states she was over at our [facility] and spoke to a nurse. Please review and advise. Kelly Durant March 08, 2025 2:21 PM documented in this encounterGrand [facility]25 Telephone encounter Note * Telephone Encounter - Kelly Durant - 03/08/2025 2:18 PM EDT Patient calling in stating Ayad was going to call her in a prescription for Emphysema today todrugmart. Patient states she was over at our [facility] facility and spoke to a nurse. Please review and advise. Kelly Durant March 08, 2025 2:21 PM [facility]08-22-2025 Radiology Diagnostic study note [facility] Imaging Services [address] [place] [address] Abdomen/Pelvis W IV Cont ONLY MR#: [id number] Acct: [id number] Name: TRACY VAZQUEZ Rep #: [id number] : 1970 F 55 From: Edw jama Castañeda MD PCP: Dr. Fina Iraheta MD Status: R EG ER Study:Abdomen/Pelvis W IV Cont ONLY Date of E xam: 03/08/25 Exam# [id number] Ordering Dr: Saturnino Mix DO PROCEDURE: ABDOMEN/PELVIS [...] required. 4. No acute abnormality. Reading Location: [id number] CC: Dr. Fina Iraheta MD; Dr. Saturnino Mix, DO ~ Ice Cutter: Signed [facility]08-22-2025 NoteHNO ID: [id number] Author: GINNY JAIMES APRN.TRANSPORTATION ENGINEERING TECHNICIAN Service: ? Author Type: Nurse Practitioner Type: Progress Notes Filed: 03/08/2025 08:43 Note Text: URGENT CARE [facility] Tracy Vazquez is a 55 year old female. Patient presents with: Abdominal Pain: Nausea, Gerd, headache, vomiting, cough, RLQ abd pain x 2 days HPI Abdominal Pain: - Onset: Recent. - Location: RLQ. - Severity: Rates pain as 6/10, but is now keeping her up at night worsening. - Denies seeing a alum plant operator. Vomiting: - Vomiting mucus; describes it as thick and like gum. - Taking Mucinex. Headaches: - Took Tylenol 2.5 hours ago. GERD: - Previously managed with Pepcid AC; discontinued to improve B12 absorption. - Takes B12 tablets daily. - Describes typical GERD symptoms as chest and throat discomfort, not abdominal pain. Emphysema: - Managed by Dr. Metcalf, transportation attendant; next appointment on the 1st. - Reports [...] clear HIV (human immunodeficiency virus infection) ([facility]) 2009 Dr. Mcdonald-ID Left posterior fascicular block [...] Inhale 2 Puffs as instructed once daily. rhcdtjixxir-voqddlgdejndn-yhvnqedcn alafenamide (BIKTARVY) 50-200-25 mg per tablet Take [...] clinic to differentiate etiology. - Triage to [facility] for further workup, including imaging and labs. - Patient declines ER transport. 2. Cough with sputum (R05.8) - Chronic cough with thick sputum production; patient requests antibiotics. She sees pulmonoligst and was jus (more content not included)...[facility]08-22-2025 History of Present illness Narrative* Ginny Jaimes APRN.TRANSPORTATION ENGINEERING TECHNICIAN - 03/08/2025 8:25 AM EDT [facility] Subjective Tracy Vazquez is a 55 year old female. Patient presents with: Abdominal Pain: Nausea, Gerd, headache, vomiting, cough, RLQ abd pain x 2 days HPI Abdominal Pain: - Onset: Recent. - Location: RLQ. - Severity: Rates pain as 6/10, but is now keeping her up at night worsening. - Denies seeing a alum plant operator. Vomiting: - Vomiting mucus; describes it as thick and like gum. - Taking Mucinex. Headaches: - Took Tylenol 2.5 hours ago. GERD: - Previously managed with Pepcid AC; discontinued to improve B12 absorption. - Takes B12 tablets daily. - Describes typical GERD symptoms as chest and throat discomfort, not abdominal pain. Emphysema: - Managed by Dr. Metcalf, transportation attendant; next appointment on the . - Reports [...] clear HIV (human immunodeficiency virus infection) ([facility]) [address] Dr[address] Mcdonald-ID Left posterior fascicular block [...] Inhale 2 Puffs as instructed once daily. lbvargffrlp-oadvuvojisexm-jvnwdjmpj alafenamide (BIKTARVY) 50-200-25 mg per tablet Take [...] clinic to differentiate etiology. - Triage to [facility] for further workup, including imaging and labs. - Patient declines ER transport. 2. Cough with sputum (R05.8) - Chronic cough with thick sputum production; patient requests antibiotics. She sees pulmonoligst and was just on augmentin. - Triage to [facility] for further evaluation. and Recording using ambient Birdpost software for draft documentation of the visit was discussed with the patient/authorized medical service representative; all questions welcomed and answered. Patient/authorized medical service representative agreed to proceed [1] Social History Tobacco Use Smoking status: Every Day Current packs/day: 1.00 Average packs/day: 1 pack/day for 38.0 years (38.0 ttl pk-yrs) Types: Cigarettes Smokeless tobacco: Never Vaping Use Vaping status: Never Used Substance Use Topics Alcohol use: Not Currently Drug use: Not Currently Types: Marijuana, LSD, Crack Cocaine Comment: past hx documented in this encounterGrand [facility]08-[facility]-2025 Evaluation note* Diagnosis Onset Date Resolution Status [...] 11 8:36am Abdominal pain inactive February 8:36am [facility] Work Phone: 1(859) 513-524908-01-2025 Evaluation note* Diagnosis Onset Date Resolution Status [...] Left knee pain acute May 132024 10:22am [facility] Work Phone: 1(891) 173-114606-13-2025 NoteHNO ID: [id number] Author: CHANTEL SHAH APRN.TRANSPORTATION ENGINEERING TECHNICIAN Service: ? Author Type: Nurse Practitioner Type: [...] Inhale 2 Puffs as instructed once daily. wsaidwltnkr-ipjpxmvvzzghz-ehwunfdqw alafenamide (BIKTARVY) 50-200-25 mg per tablet Take [...] 21.85 kg/m? Physical Exam HENT: Mouth/Throat: Lips: [place]. Mouth: Mucous membranes are moist. Cardiovascular: Rate [...] outpatient record. Disposition [facility]. [facility] History of Present illness Narrative* Chantel Shah [...] clear HIV (human immunodeficiency virus infection) ([facility]) 2009 Dr. Mcdonald-ID Left posterior fascicular block [...] Inhale 2 Puffs as instructed once daily. xzlkfjmxycq-drnwbtdveolbi-tpfhdptyx alafenamide (BIKTARVY) 50-200-25 mg per tablet Take [...] 21.85 kg/m Physical Exam HENT: Mouth/Throat: Lips: [place]. Mouth: Mucous membranes are moist. Cardiovascular: Rate [...] patient was discharged. Procedures documented in this encounterGrand [facility]05-29-2025 Instructions* Patient Instructions* Meagan Ribeiro APRN.ANALILIA - 12/13/2024 10:25 AM EDT 1. COPD with exacerbation (HCC) (J44.1) - Persistent congestion and cough despite previous treatment with doxycycline. - Exam reveals ongoing nasal congestion - Prescribed Augmentin and a corticosteroid. - Discussed recent imaging, including a chest X-ray two weeks ago and a CT scan in August showingemphysema. - Stressed follow-up with transportation attendant if symptoms do not improve. 2. Tobacco [...] after this treatment, follow up with your transportation attendant as you have been seen three times recently in [facility] documented in this encounterCleveland [id number] NoteHNO ID: [id number] Author: MEAGAN RIBEIRO APRN.[facility] Service: ? Author Type: Nurse Practitioner Type: [...] Inhale 2 Puffs as instructed once daily. lguzatandnz-ohkqpulrehhun-xatwighas alafenamide (BIKTARVY) 50-200-25 mg per tablet Take [...] Constitutional: General: She is (more content not included)...[facility] 12-13-2024 History of Present illness Narrative* Meagan Ribeiro, DARIUS.[facility] - 12/13/2024 10:23 AM EDT [facility] [...] clear HIV (human immunodeficiency virus infection) ([facility]) 2009 Dr. Mcdonald-ID Left posterior fascicular block [...] Inhale 2 Puffs as instructed once daily. quaxukbewnr-gjnawtszuuybl-mnaeakral alafenamide (BIKTARVY) 50-200-25 mg per tablet Take [...] in August showingemphysema. - Stressed follow-up with transportation attendant if symptoms do not improve. 2. Tobacco [...] Discussed expected course of illness Meagan Ribeiro APRN.TRANSPORTATION ENGINEERING TECHNICIAN and Recording using DropShip software for draft documentation of the visit was discussed with thepatient/authorized medical service representative; all questions welcomed and answered. Patient/authorized medical service representative agreed to proceed Disposition The patient was discharged. Procedures documented in this encounterGrand Lake [facility]05-20-2025 NoteHNO ID: [id number] Author: LOUIE TYSON PA Service: ? Author Type: Physician Supervisor Beam Department Type: Progress Notes Filed: 12/04/2024 09:05 Note [...] sinus pain. - Denies fever. - No epsy-muk-rvzqlrm medications taken for symptoms. COPD: - History [...] clear HIV (human immunodeficiency virus infection) ([facility]) [address] Dr. Mcdonald-ID Left posterior fascicular block [...] tablet Take two daily for 5 days. Ffnyxoouaagofem-Lngnvsxwh-KF (BROMFED DM) 2-30-10 mg/5 mL syrup Take [...] Take 1 capsule by mouth once daily. rkelvszqxkn-obkmkoakhbnxj-tqxymxlng alafenamide (BIKTARVY) 50-200-25 mg per tablet Take [...] exam reveals clear lung (more content not included)...[facility]05-20-20[facility] History of Present illness Narrative* Louie Tyson [...] sinus pain. - Denies fever. - No vrms-lnw-bfozkbt medications taken for symptoms. COPD: - History [...] no surgery for this Emphysema lung ([facility]) GERD (gastroesophageal reflux disease) Hepatitis B reports she is clear HIV (human immunodeficiency virus infection) ([facility]) [address] Dr[address] Mcdonald-ID Left posterior fascicular block [...] tablet Take two daily for 5 days. Vuxoyihdrakphcb-Ftgquczjw-UI (BROMFED DM) 2-30-10 mg/5 mL syrup Take [...] Take 1 capsule by mouth once daily. moksxxqaasr-nsqugkasunqsj-dfaqputjg alafenamide (BIKTARVY) 50-200-25 mg per tablet Take [...] with the treatment plan. and Recording using DropShip software for draft documentation of the visit was discussed with thepatient/authorized medical service representative; all questions welcomed and answered. Patient/authorized medical service representative agreed to proceed History and Record [...] patient was discharged. Procedures documented in this encounterGrand Lake [facility]05-14-2025 Evaluation note* Diagnosis Onset Date Resolution Status Admit Date Tobacco use disorder, continuous acu te November 28, 2024 2:47pm Chronic pain chronic November 28 2:47pm Viral upper respiratory trac t infection with cough inactive November 28, 2 025 2:47pm [facility] Work Phone: 1(929) 812-979305-14-2025 Evaluation note* Diagnosis Onset Date Resolution Status [...] 2025 10:07am Rhinitis chronic February 15 10:07am [facility] Work Phone: 1(477) 649-779305-14-2025 Evaluation note* Diagnosis Onset Date Resolution Status [...] wall of gallbladder acute March 11 8:36am [facility] Work Phone: 1(832) 353-668805-12-2025 Radiology Diagnostic study note [facility] Imaging Services [address] [place] [id number] Chest PA and Lateral MR#: [id number] Acct: [id number] Name: TRACY VAZQUEZ Rep #: [id number] : 1970 F 54 From: Peter Meyer MD PCP: Dr. Fina Iraheta MD Status: R EG ER Study:Chest PA and Lateral Date of Exam: 11/26/24 Exam# [id number] Ordering Dr: Saturnino Mix DO PROCEDURE: CHEST [...] No acute abnormality is seen. Reading Location: [facility] CC: Dr. Fina Iraheta MD; Dr. Saturnino Mix DO ~ Ice Cutter: Signed [facility]04-23-2025 NoteHNO ID: [id number] Author: JULIETA POOLE APRN.TRANSPORTATION ENGINEERING TECHNICIAN Service: ? Author Type: Nurse Practitioner Type: Progress Notes Filed: 11/07/2024 10:55 Note Text: This note was created using ApexPeakriter. Subjective Tracy Vazquez is a 54 year [...] any other concerning neurologic issues. Julieta Poole APRN.[facility]04-23-2025 History of Present illness Narrative* Julieta Poole APRN.ANALILIA - 11/07/2024 10:43 AM EDT This note was created using ApexPeakriter. Subjective Tracy Vazquez is a 54 year [...] any other concerning neurologic issues. Julieta Poole APRN.TRANSPORTATION ENGINEERING TECHNICIAN documented in this encounterGrand Lake Joint [facility]04-14-2025 Telephone encounter Note * Telephone Encounter - Enrique Pacheco - 10/29/2024 10:39 AM EDT Orders received. [facility]04-14-2025 Miscellaneous Notes* Telephone Encounter - Enrique Pacheco [...] Please advise, thank you documented in this encounterGrand Lake Joint Township District [facility] Hospital03-14-2025 Telephone encounter Note * Telephone Encounter - Blanca Rojo LPN - 09/28/2024 9:49 AM EDT Images from the original note were not included. Julieta Poole APRN.TRANSPORTATION ENGINEERING TECHNICIAN 09/28/24 6:57 AM Result Note Please inform patient that the influenza, COVID, RSV tests were negative. They should follow-up with their family doctor if symptoms are not improving. COVID & INFLUENZA A/B & RSV PCR, ROUTINE Patient calling asking for results, went over results, notes from express care provider with understanding. [facility]03-14-2025 Miscellaneous Notes* Telephone Encounter - Blanca Rojo LPN - 09/28/2024 9:49 AM EDT Images from the original note were not included. Julieta Poole APRN.TRANSPORTATION ENGINEERING TECHNICIAN 09/28/24 6:57 AM Result Note Please inform patient that the influenza, COVID, RSV tests were negative. They should follow-up with their family doctor if symptoms are not improving. COVID & INFLUENZA A/B & RSV PCR, ROUTINE Patient calling asking for results, went over results, notes from express care provider with understanding. documented in this encounterGrand Lake Joint Township [facility] Hospital03-13-2025 QojtWKIN-HTG-7 (AGENT OF COVID-19) RNA: Not detected INFLUENZA A RNA: Not detected INFLUENZA B RNA: Not detected RESPIRATORY SYNCYTIAL VIRUS (RSV) RNA: Not detectedWood County HospitalComment on above:Performed By: #### [id number] ####[facility] LABCLIA [id number] [address]03-13-2025 NoteHNO ID: [id number] Author: LOUIE TYSON PA Service: ? Author Type: Physician Supervisor Beam Department Type: Progress Notes Filed: 09/27/2024 13:17 Note [...] clear HIV (human immunodeficiency virus infection) ([facility]) 2009 Dr. Mcdonald-ID Left posterior fascicular block [...] days. (Patient not taking: Reported on 08/17/2024) Ybjcvparyraodlq-Ecpnzgggt-PJ (BROMFED DM) 2-30-10 mg/5 mL syrup Take [...] daily. (Patient not taking: Reported on 09/27/2024) egnckuflczf-hedfmogenzzoq-yalupxzom alafenamide (BIKTARVY) 50-200-25 mg per tablet Take [...] canal normal. Nose: Co (more content not included)...[facility]03-13-2025 History of Present illness Narrative* Louie Tyson [...] clear HIV (human immunodeficiency virus infection) ([facility]) 2009 Dr. Mcdonald-ID Left posterior fascicular block [...] days. (Patient not taking: Reported on 08/17/2024) Griggftcpzyvhmj-Zazvtbkrc-QH (BROMFED DM) 2-30-10 mg/5 mL syrup Take [...] daily. (Patient not taking: Reported on 09/27/2024) tgfsvsjzmkc-sxdmopluninuq-xmxcwfjop alafenamide (BIKTARVY) 50-200-25 mg per tablet Take [...] Mucinex as needed Procedures documented in this encounterGrand [facility] Radiology Diagnostic study note [facility] Imaging Services [address] [place] [id number] Brain/Head without Contrast MR#: [id number] Acct: [id number] Name: TRACY VAZQUEZ Rep #: [id number] : 1970 F 54 From: Anthony Brownlee DO PCP: Dr. Fina Iraheta MD Status: R EG ER Study:Brain/Head without Contrast Date of Exa m: 09/25/24 Exam# [id number] Ordering Dr: Joselito Nichols DO EXAM: CT [...] Iraheta MD; Dr. Joselito Nichols DO ~ Ice Cutter: Signed [facility]02-28-2025 Radiology Diagnostic study note [facility] Imaging Services [address] [place] [address] L/S Spine Min 4 Views MR#: [id number] Acct: [id number] Name: TRACY VAZQUEZ Rep #: : 1970 F 54 From: Shelly Narayan MD PCP: Dr. Fina Iraheta MD Status: R EG CLI Study:L/S Spine Min 4 Views Date of Exam: 09/14/24 Exam# [id number] Ordering Dr: Betty Iraheta MD PROCEDURE: L/S [...] [place] CC: Dr. Fina Iraheta MD ~ Ice Cutter: Signed [facility]02-25-2025 Radiology Diagnostic study note [facility] Imaging Services [address] [place] [address] Lung Screening MR#: [id number] Acct: [id number] Name: TRACY VAZQUEZ Rep #: [id number] : 1970 F 54 From: Peter Meyer MD PCP: Dr. Fina Iraheta MD Status: R EG CLI Study:Low Dose CT Lung Screening Date of Exam : 09/11/24 Exam# [id number] Ordering Dr: Namrata Romero NP STOCK ANALYST-C PROCEDURE: LOW DOSE CT LUNG SCREENING REASON [...] OR fat containing 2- (more content not included)...[facility]02-05-2025 Telephone encounter Note* Telephone Encounter - Maria Elena Monroe RN - 08/22/2024 3:48 PM EST Routed the orders for 'lung volumes' and 'spirometry with dilator' to PSS team to contact Pt to schedule. Maria Elena Monroe RN August 22, 2024 3:49 PM [facility]02-05-2025 Miscellaneous Notes* Telephone Encounter - Maria Elena [...] testing. [facility] scheduled this month at [place] through their lung cancer screening program. Ayad Metcalf APRN.ANALILIA * Telephone Encounter - Bambi Gonsalez RN - 08/22/2024 10:26 AM EST Patient calling in asking for suggestions on what over the counter nasal sprays she can take for nasal congestion? Reports increased nasal congestion x1 week. States that she also saw the ENT and hadear wax removed. Bambi Gonsalez RN documented in this encounterGrand Lake Joint [facility]02-05-2025 Telephone encounter Note * Telephone Encounter - [...] stages. Would like to update pulmonary testing. [facility] CT scheduled this month at [place] through their lung cancer screening program. Ayad Metcalf APRN.ANALILIA [facility]02-05-2025 Telephone encounter Note* Telephone Encounter - Bambi Gonsalez RN - 08/22/2024 10:26 AM EST Patient calling in asking for suggestions on what over the counter nasal sprays she can take for nasal congestion? Reports increased nasal congestion x1 week. States that she also saw the ENT and hadear wax removed. Bambi Gonsalez RN [facility]02-04-2025 Telephone encounter Note* Telephone Encounter - Ayad Metcalf APRN.CNP - 08/21/2024 11:13 AM EST Called to discuss lab results and went to . Left message. Labs positive for mild dust mite allergy. No allergy to mold or cats that she previously specifically asked about. [facility]02-04-2025 Miscellaneous Notes* Telephone Encounter - Ayad Metcalf [...] results. She can be reached back at [phone]. * Telephone Encounter - Stephenie Bardales MA - 08/20/2024 1:32 PM EST Patient requesting a phone to review lab results. Stephenie Bardales MA documented in this encounterGrand Lake [facility]02-04-2025 Telephone encounter Note * Telephone Encounter - Stephenie Bardales MA - 08/21/2024 11:06 AM EST Patient phoned to reports symptoms increased today. She is taking mucinex and drinking a lot of water. She is vomiting mucus at this time.She is asking if she should start steroids? Stephenie Bardales MA [facility]02-04-2025 Telephone encounter Note* Telephone Encounter - Chika Conde MA - 08/21/2024 9:09 AM EST Patient called again trying to obtain lab results. She can be reached back at [phone]. [facility]02-03-2025 Telephone encounter Note* Telephone Encounter - Stephenie Bardales MA - 08/20/2024 1:32 PM EST Patient requesting a phone to review lab results. Stephenie Bardales MA [facility]01-31-2025 NoteHNO ID: [id number] Author: JULIETA POOLE APRN.TRANSPORTATION ENGINEERING TECHNICIAN Service: ? Author Type: Nurse Practitioner Type: Progress Notes Filed: 08/17/2024 12:30 Note Text: This note was created using ApexPeakriter. Subjective Tracy Vazquez is a 54 year [...] follow-up with PCP as needed. Julieta Poole APRN.[facility]IA[facility] History of Present illness Narrative* Julieta Poole APRN.TRANSPORTATION ENGINEERING TECHNICIAN - 08/17/2024 12:09 PM EST This note [...] needed. Julieta Poole APRN.ANALILIA documented in this encounterGrand Lake [facility]01-30-2025 Telephone encounter Note * Telephone Encounter - Milagros Abdullahi MA - 08/16/2024 2:23 PM EST Patient has changed PCP to outside of [facility]. New order will need to come from current overseeing PCP. Milagros Abdullahi MA [facility]01-30-2025 Telephone encounter Note* Telephone Encounter - Enrique Pacheco - 08/16/2024 12:39 PM EST Patient is needing a breast ultrasound order due to having a diagnostic mammogram on 09/18/2024. Please advise, thank you [facility]01-30-2025 Telephone encounter Note* Telephone Encounter - Marianna Romeo - 08/16/2024 12:07 PM EST Patient stopped in and has questions on how to use her Spiriva. She also wants to know what her labs was for. [facility] Work Phone: 1(437) 935-964501-30-2025 Miscellaneous Notes* Telephone Encounter - Marianna Romeo - 08/16/2024 12:07 PM EST Patient stopped in and has questions on how to use her Spiriva. She also wants to know what her labs was for. documented in this encounterGrand Lake [facility]01-27-2025 Evaluation note* Diagnosis Onset Date Resolution Status [...] 2024 9:30am Pain, dental chronic August 9:30am [facility] Work Phone: 1(408) 536-831001-27-2025 Evaluation note* Diagnosis Onset Date Resolution Status [...] of torso acute [place] h 2024 12:46pm [facility] Work Phone: [phone]) 711-210301-21-2025 Telephone encounter Note* Telephone Encounter - Jason Salas RN - 08/07/2024 4:28 PM EST Patient called back, verified name and . She states that she does not know how to get into her mychart so she has not read the response from [place]. Read response to patient. She states that she had taken Zyrtec, Mucinex, and and Inhaler earlier and it helped for a few hours. Asked about Flonase use, she states that she does not use Flonase and has not for years as it caused nose bleeds. Patient has no further questions at this time. [facility]01-21-2025 Miscellaneous Notes* Telephone Encounter - Jason Salas [...] for once daily use. Will forward to TRANSPORTATION ENGINEERING TECHNICIAN for further advice. Tian Naylor LPN * Telephone Encounter - Tess Sevilla - 08/07/2024 2:24 PM EST Patient calling to report that she is experiencing increased phlegm today. She is wanting to know if she is able to take an additional dose of spireva (current sig 1X per day). Please contact patient to advise. documented in this encounterGrand Lake [facility]01-21-2025 Telephone encounter Note * Telephone Encounter - Tian Naylor LPN - 08/07/2024 2:53 PM EST Spiriva is indicated for once daily use. Will forward to TRANSPORTATION ENGINEERING TECHNICIAN for further advice. Tian Naylor LPN [facility]01-21-2025 Telephone encounter Note* Telephone Encounter - Tess Sevilla - 08/07/2024 2:24 PM EST Patient calling to report that she is experiencing increased phlegm today. She is wanting to know if she is able to take an additional dose of spireva (current sig 1X per day). Please contact patient to advise. [facility]01-15-2025 Telephone encounter Note* Telephone Encounter - Jody [...] between administration of these medications, per http [email or web address]://[email or web address].[email or web address]/inside sales advisor/document.do?[email or web address]&[email or web address] Outcome: Caller voiced understanding, no further questions at this time. Reason for Disposition Caller has medicine question only, adult not sick, AND triager answers question Protocols used: Medication Question [id number] [facility]01-15-2025 Miscellaneous Notes* Telephone Encounter - Jody Garcia [...] between administration of these medications, per http [email or web address]://[email or web address].[email or web address]/inside sales advisor/document.do?[email or web address] Outcome: Caller voiced understanding, no further questions at this time. Reason for Disposition Caller has medicine question only, adult not sick, AND triager answers question Protocols used: Medication Question [id number] documented in this encounterGrand Lake Joint [facility]01-14-2025 History of Present illness Narrative* Jimbo Madrid [...] PATIENT PRESENTS WITH AN IMPLANTABLE OR ATTACHED LEGAL WRITING PROFESSOR: No RADIOLOGY DEPARTMENT: General X-ray: Exam(s) Completed: Chest X-Ray PERIPHERAL IV DATA: Not applicable SIGNED BY: RT Hiren(Yung) July 31, 2024 11:06 AM documented in this encounterGrand Lake Joint Township [facility]01-14-2025 NoteHNO ID: [id number] Author: JIMBO MADRID RT(R) Service: ? Author [...] PATIENT PRESENTS WITH AN IMPLANTABLE OR ATTACHED LEGAL WRITING PROFESSOR: No RADIOLOGY DEPARTMENT: General X-ray: Exam(s) Completed: Chest X-Ray PERIPHERAL IV DATA: Not applicable SIGNED BY: RT Hiren(R) July 31, 2024 11:06 [facility]01-14-2025 NoteHNO ID: [id number] Author: MONE BOYLE APRN.ANALILIA Service: ? Author Type: Nurse Practitioner Type: Progress Notes Filed: 07/31/2024 09:22 Note Text: 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 Tracy Vazquez is a 54 year old female who presents for problem visit vaginal discharge, odor for 1 month(s). HPI: brownish discharge off/on. Some itching. Frequent urination with some low back pain and pelvic pain. Not sexually active. OB History T3 L3 SAB0 IAB0 Ectopic0 Multiple0 Live Births0 Fitness Coordinator History LMP: Postmenopausal Age at Menarche: Age at First : Age at Menopause: Fitness Coordinator History Comments: Sexual Activity: Not Currently; Male [...] Take 400 Units by mouth once daily. Vniudyshhxbhrsk-Vowpqlqdg-GE (BROMFED DM) 2-30-10 mg/5 mL syrup Take 5 mL by mouth four times a day as needed. acetaminophen (TYLENOL 8 HOUR) 650 mg CR tablet Take 1 tablet by mouth every 8 hours as needed. Adhesive Tape (PAPER TAPE) 1 X 10 -yard tape Apply 1 application to affected area two times a day. lmtujpqctnu-fxuemcmwxvyiu-xdwcjmjgg alafenamide (BIKTARVY) 50-200-25 mg per tablet Take [...] See Comments GLORIA CARTER (more content not included)...[facility] 07-31-2024 History of Present illness Narrative* Mone Boyle APRN.TRANSPORTATION ENGINEERING TECHNICIAN - 07/31/2024 8:52 AM EST 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 Tracy Vazquez is a 54 year old female who presents for problem visit vaginal discharge, odorfor 1 month(s). HPI: brownish discharge off/on. Some itching. Frequent urination with some low back pain and pelvicpain. Not sexually active. OB History T3 L3 SAB0 IAB0 Ectopic0 Multiple0 Live Births0 Fitness Coordinator History LMP: Postmenopausal Age at Menarche: Age at First : Age at Menopause: Fitness Coordinator History Comments: Sexual Activity: Not Currently; Male [...] Take 400 Units by mouth once daily. Rzebjvmwtzdxkgk-Xypsjxutg-GJ (BROMFED DM) 2-30-10 mg/5 mL syrup Take 5 mL by mouth four times a dayas needed. acetaminophen (TYLENOL 8 HOUR) 650 mg CR tablet Take 1 tablet by mouth every 8 hours as needed. Adhesive Tape (PAPER TAPE) 1 X 10 -yard tape Apply 1 application to affected area two times a day. kmlcspskbbg-gnjtnkehaxexf-idpanqmjt alafenamide (BIKTARVY) 50-200-25 mg per tablet Take [...] discussed with the Patient or Patient's Authorized Drupal Php Developer. As applicable, any other physician, advance practice provider, medical student, or other health professional student that will be observing or involved in the sensitive examination for educational or training purposes was discussed with the Patient or Authorized Drupal Php Developer. The Patient or Authorized Drupal Php Developer has agreed to proceed with the sensitive examination. (Sensitive examination includes inspection and/or palpation of the breasts, pelvis, prostate and anorectal regions). EXAM: BP 110/62 Wt 125 lb 9.6 oz (57.0kg) GENERAL: pleasant, female in no apparent distress HEENT: Normocephalic, atraumatic, mucus membranes moist, and no lesions CHEST: Normal inspiratory effort PELVIC: external genitalia normal, normal Bartholin's glands, urethra, [place]'s glands, no vulvar lesions, no cervical lesions, [...] Level: 3 - Low documented in this encounterGrand Lake Joint [facility]01-14-2025 Instructions* Patient Instructions* Ayad Metcalf APRN.CNP - 07/31/2024 8:46 AM EST Chest xray today. Stop using Incruse. Start Spiriva Respimat 2 sprays once daily. Recommend regular use of Mucinex. Albuterol as needed. Continue progress with smoking cessation. documented in this encounterGrand Lake Joint Township [facility]01-14-2025 NoteHNO ID: [id number] Author: AYAD METCALF APRN.CNP Service: ? Author [...] with multiple courses of steroids/antibiotics since [facility] for URI symptoms/productive cough. She most recently [...] clear HIV (human immunodeficiency virus infection) ([facility]) [address] Dr. Mcdonald-ID Left posterior fascicular block [...] BIKTARVY 50-200-25 mg per tablet Generic drug: tzinvkchwxl-ucwyfzrcgiwwd-dzjolrnfi alafenamide Take 1 tablet by mouth once daily. Xujenndgqhhdjcw-Bvszghcwi-QW 2-30-10 mg/5 mL syrup Commonly known as: [...] analyzed all l (more content not included)... [facility]01-14-2025 History of Present illness Narrative* Bubba, Ayad Cartagena APRN.TRANSPORTATION ENGINEERING TECHNICIAN - 07/31/2024 8:14 AM EST Images from [...] using Incruse, doesn't like the powder. [facility] 10/2023. PFT did not show obstruction. Reported productive cough, sinus congestion/PND and SOB. Started on Incruse. Has been treated with multiple courses of steroids/antibiotics since [facility] for URIsymptoms/productive cough. She most recently was [...] BIKTARVY 50-200-25 mg per tablet Generic drug: rzjuuibubik-lqmpdgsweneeq-jazqvoqzu alafenamide Take 1 tablet by mouth once daily. Xocsfhgxowgnrbo-Uncskvzuq-DR 2-30-10 mg/5 mL syrup Commonly known as: [...] Neut (k/uL) Date Value 03/14/2024 4.18 Abs [place] (k/uL) Date Value 03/14/2024 0.47 Abs Eosin [...] patches encouraged. - follows with [facility] at [facility] - due for annual CT in August [...] which included preparing to see the patient, peyj-ag-aogr patient care, completing clinical documentation, performing a medically appropriate examination, counseling and educating the patient/family/caregiver, ordering medications, tests, or p rocedures, and communicating results to the patient/family/caregiver. documented in this encounterGrand Lake Joint Township [facility]01-07-2025 Telephone encounter Note * Telephone Encounter - [...] instructions at that time. Stephenie Bardales MA [facility]01-07-2025 Miscellaneous Notes* Telephone Encounter - Stephenie Bardales [...] Stephenie Bardales MA * Telephone Encounter - Masha Marquez MA - 07/24/2024 1:59 PM EST [...] was not any better. documented in this encounterGrand Lake Joint Township District [facility] Hospital01-07-2025 Telephone encounter Note * Telephone Encounter - [...] in if she was not any better. [facility]12-27-2024 Telephone encounter Note* Telephone Encounter - Venecia [...] up if not improving. Venecia Gusman MA [facility]12-27-2024 Miscellaneous Notes* Telephone Encounter - Veencia Gusman MA - 07/13/2024 4:21 PM EST [...] 13, 2024 10:16 AM documented in this encounterGrand Lake Joint Township District [facility] Hospital12-27-2024 Telephone encounter Note * Telephone Encounter - Kelly Durant - 07/13/2024 10:15 AM EST Patient calling in to let the office know she is having chest congestion, cough, and mucus. She is wondering if she can get a medication called in, states the office called in a prescription last time for her. Please review and advise. Kelly Durant July 13, 2024 10:16 AM [facility]11-21-2024 Telephone encounter Note* Telephone Encounter - Tian [...] we can schedule with DARIUS Naylor LPN [facility]11-21-2024 Miscellaneous Notes* Telephone Encounter - Tian Naylor [...] advise. Venecia Gusman MA documented in this encounterGrand Lake Joint Township District [facility] Hospital11-20-2024 Telephone encounter Note * Telephone Encounter - [...] Please review and advise. Venecia Gusman MA [facility]11-17-2024 NoteHNO ID: [id number] Author: MEAGAN RIBEIRO APRN.TRANSPORTATION ENGINEERING TECHNICIAN Service: ? Author Type: Nurse Practitioner Type: [...] clear HIV (human immunodeficiency virus infection) ([facility]) [address] Dr. Mcdonald-ID Left posterior fascicular block [...] Inhale 1 Puff as instructed once daily. oonilmbtamf-ouqpjhafvdfws-lwhhzytee alafenamide (BIKTARVY) 50-200-25 mg per tablet Take 1 tablet by mouth once daily. amoxicillin-clavulanate potassium (AUGMENTIN) 875-125 mg per tablet Take 1 tablet by mouth two times a day for 7 days. Zqsearoftgtrksx-Xdllgwfqz-RI (BROMFED DM) 2-30-10 mg/5 mL syrup Take [...] Alcohol use: Not Currently (more content not included)...[facility]11-17-[facility] History of Present illness Narrative* Meagan Ribeiro APRN.TRANSPORTATION ENGINEERING TECHNICIAN - 06/03/2024 10:40 AM EST Images from [...] Inhale 1 Puff as instructed once daily. bhmmlxibban-bzxbofnientpe-hjwovqlzc alafenamide (BIKTARVY) 50-200-25 mg per tablet Take 1 tablet bymouth once daily. amoxicillin-clavulanate potassium (AUGMENTIN) 875-125 mg per tablet Take 1 tablet by mouth two times a day for 7 days. Jjaifxkzlduykzw-Jsatvljur-KS (BROMFED DM) 2-30-10 mg/5 mL syrup Take [...] throat - ICD9: 786.4, ICD10: R09.89 - BWFHOAPYTAMQQLS-AQVAAHLVRWAEHIQ-PM 2 MG-30 MG-10 MG/5 ML ORAL SYRUP - Follow-up with your PCP in 3-5 days if symptoms have not improved or sooner if symptoms worsen - Discussed red flags and need for immediate medical evaluation if any occur. - Discussed supportive care treatment with fluids, rest and analgesia. - Discussed expected course of illness Meagan Ribeiro APRN.TRANSPORTATION ENGINEERING TECHNICIAN documented in this encounterGrand Lake Joint Township District [facility] Hospital11-17-2024 Instructions* Patient Instructions* Meagan Ribeiro APRN.CNP - 06/03/2024 10:40 AM EST ASSESSMENT/PLAN: 1. Cat scratch - ICD9: 919.0, E906.8, ICD10: W55.03XA (primary diagnosis) - keep clean and dry. - AMOXICILLIN 875 MG-POTASSIUM CLAVULANATE 125 MG TABLET 2. Phlegm in throat - ICD9: 786.4, ICD10: R09.89 - WFKVYTQIPFLOOKM-JBHSHAGAMMBRKBM-WB 2 MG-30 MG-10 MG/5 ML ORAL SYRUP - Follow-up with your PCP in 3-5 days if symptoms have not improved or sooner if symptoms worsen - Discussed red flags and need for immediate medical evaluation if any occur. - Discussed supportive care treatment with fluids, rest and analgesia. - Discussed expected course of illness Meagan Ribeiro APRN.CNP documented in this encounterGrand Lake Joint Township District [facility] Hospital11-11-2024 Telephone encounter Note * Telephone Encounter - Jimbo Luna MA - 05/28/2024 7:24 AM EST Patient given results and verbalized understanding of instructions given. Jimbo Luna MA [facility]11-11-2024 Miscellaneous Notes* Telephone Encounter - Jimbo Luna [...] improving. Rob Chirinos APRN.CNP documented in this encounterGrand Lake Joint Township District [facility] Hospital11-11-2024 Telephone encounter Note * Telephone Encounter - Rob Chirinos APRN.CNP - 05/28/2024 7:12 AM EST COVID-19, influenza A, and influenza B PCR test are negative. Continue supportive therapies as discussed during visit. Follow-up with PCP if symptoms are not improving. Rob Chirinos APRN.TRANSPORTATION ENGINEERING TECHNICIAN [facility] Work Phone: 1([phone]) [phone] Note* Addendum Note - Kathleen Maurice APRN.CNP - 05/27/2024 12:27 PM ESTAddended by: KATHLEEN MAURICE on: 05/27/2024 12:27 PM Modules accepted: Orders [facility]11-10-2024 Miscellaneous Notes* Addendum Note - Kathleen Maurice APRN.CNP - 05/27/2024 12:27 PM ESTAddended by: KATHLEEN MAURICE on: 05/27/2024 12:27 PM Modules accepted: Orders documented in this encounterGrand Lake Joint Township District [facility] Hospital11-10-2024 NoteHNO ID: [id number] Author: KATHLEEN MAURICE APRN.CNP Service: ? Author Type: Nurse Practitioner Type: Progress Notes Filed: 05/27/2024 12:17 Note Text: CC: Patient presents with: Chest Congestion: Cough x3 days Laceration: L hand cut x4 days with chiropractic teacher HPI: Tracy Vazquez is a 54 year [...] Inhale 1 Puff as instructed once daily. abxlecvefhw-zgvmosanwhobh-risjyzgxo alafenamide (BIKTARVY) 50-200-25 mg per tablet Take [...] Not Currently Types: Leela (more content not included)...[facility]11-10-20[facility] History of Present illness Narrative* Kathleen Maurice APRN.TRANSPORTATION ENGINEERING TECHNICIAN - 05/27/2024 12:14 PM EST CC: Patient presents with: Chest Congestion: Cough x3 days Laceration: L hand cut x4 days with chiropractic teacher HPI: Tracy Vazquez is a 54 year [...] Inhale 1 Puff as instructed once daily. gokmbdnjjne-cmkrfxachxtyb-jiupomjdv alafenamide (BIKTARVY) 50-200-25 mg per tablet Take [...] Patient agreeable to treatment plan. Kathleen Maurice APRN.TRANSPORTATION ENGINEERING TECHNICIAN documented in this encounterGrand Lake Joint Township [facility]10-25-2024 Telephone encounter Note * Telephone Encounter - Abigail William LPN - 05/11/2024 3:28 PM EDT Patient came in person to office and picked up documents. Copies made for patient chart. Abigail William LPN [facility] [facility]10-25-2024 Miscellaneous Notes* Telephone Encounter - Abigail William [...] advise. Shraddha Cuevas LPN documented in this encounterGrand Lake [facility]10[facility] Telephone encounter Note * Telephone Encounter - [...] to do with paperwork. Abigail William LPN [facility]10-24-2024 Telephone encounter Note* Telephone Encounter - Prudencio Pedro MD - 05/10/2024 8:40 AM EDT Will review and complete. [facility]10-23-2024 Telephone encounter Note* Telephone Encounter - Shraddha Cuevas LPN - 05/09/2024 7:12 PM EDT Wound notes printed. In inbox for review. Shraddha Cuevas LPN [facility]10-23-2024 Telephone encounter Note* Telephone Encounter - Prudencio Pedro MD - 05/09/2024 10:57 AM EDT I would need form to complete and records from wound care to confirm wound has healed since she is no longer in our care. 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 [facility]10-23-2024 Telephone encounter Note* Telephone Encounter - Shraddha Cuevas LPN - 05/09/2024 10:19 AM EDT Patient dropped off wound center paperwork of healed wound. Placed in Dr. Singh inbox for review. Patient states she needs a sign off from Dr. Pedro for workers compensation. No workers comp forms brought with patient. Please advise. Shraddha Cuevas LPN [facility]09-23-2024 Telephone encounter Note* Telephone Encounter - Gem Polanco LPN - 04/09/2024 10:45 AM EDT Patient called in again this morning wondering if this was sent. Let patient know it has been sent to the provider. Gem Polanco LPN [facility]09-23-2024 Miscellaneous Notes* Telephone Encounter - Gem Polanco [...] advise. Frances White LPN documented in this encounterGrand Lake Joint [facility]09-20-2024 Telephone encounter Note * Telephone Encounter - Gem Polanco LPN - 04/06/2024 3:53 PM EDT Patient called in wondering if this was sent. Let patient know it has been sent to the provider butit has not been sent yet. Gem Polanco LPN [facility]09-20-2024 Telephone encounter Note* Telephone Encounter - Tian Naylor LPN - 04/06/2024 1:45 PM EDT [place] 11/09/23 RX pended. [facility]09-20-2024 Telephone encounter Note* Telephone Encounter - Frances [...] Please review and advise. Frances White LPN [facility]09-11-2024 Telephone encounter Note* Telephone Encounter - Mahsa Marquez MA - 03/28/2024 3:44 PM EDT Patient returned call and given message below. Patient states it is easier said then done to stop smoking. She is asking if there are any smoking sensation classes to go to? [facility]09-11-2024 Miscellaneous Notes* Telephone Encounter - Mahsa Marquez [...] will prevent further damage to lung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 Encounter - Kelsey [...] Kelsey Helton February 13, 2024 2:26 PM [facility]07-29-2024 Miscellaneous Notes* Telephone Encounter - Kelsey Helton [...] 13, 2024 2:26 PM documented in this encounterGrand Lake Joint [facility]07-29-2024 Telephone encounter Note * Telephone Encounter - Prudencio Pedro MD - 02/13/2024 2:21 PM EDT She brought in [employer] 14 form. I do not have C9 form for her. She will need to get this from employer or research attorney for me to complete. [facility]07-29-2024 Telephone encounter Note* Telephone Encounter - Mitzi Ibarra RN - 02/13/2024 2:02 PM EDT Sudha- [facility], reports patient wanted to schedule appt with them today for a wound on herright foot. Patient tells them it is workmens comp. Sudha reports they cannot see patient until pcp gets it approved through a C9 with workmens comp, for them to test and treat patient. [facility]07-29-2024 Telephone encounter Note* Telephone Encounter - Blanca Rojo LPN - 02/13/2024 2:02 PM EDT Sudha from [facility] calling she received order but did not demographics or office visit notes faxed to [phone]. Printed what was requested and faxed. [facility]07-29-2024 Miscellaneous Notes* Telephone Encounter - Blanca Rojo LPN - 02/13/2024 2:02 PM EDT Sudha from [facility] calling she received order but did not demographics or office visit notes faxed to [phone]. Printed what was requested and faxed. documented in this encounterGrand Lake [facility]07[facility] Telephone encounter Note * Telephone Encounter - Abigail William LPN - 02/13/2024 11:52 AM EDT Type of form: [facility] Form received via walk in When form is completed, Fax form to [employer] [phone] Form has been forwarded to Physician Desk: Dr. Willis William LPN [facility]07-29-2024 Instructions* Patient Instructions* Diamond Bright APRN.CNP - 02/13/2024 9:05 AM EDT [facility] wound care will reach out to you today to schedule documented in this encounterGrand Lake [facility]07[facility] History of Present illness Narrative* Diamond Bright APRN.CNP - 02/13/2024 8:46 AM EDT 02/13/2024 Patient presents with: Follow Up: Right foot wound follow up; has NOT seen wound care SUBJECTIVE: This is a 54 year old that is here today for Above Complaints. Had ER follow-up with PCP on 02/06/2024 for 1st and 2nd degree burn to right foot sustained while working at [employer]. Instructed on wound care at visit and referred to [facility] wound care. Since office visit has been washing twice a day with wound wash, applying Silvadene cream and wrapping. Reports she went to [facility] wound care center on Tuesday and was told they had not received referralyet. She is unsure if foot is infected or not. Denies fevers, chills, increasing redness, warmth, red streaking or purulent drainage. PAST MEDICAL HISTORY Diagnosis Date Allergies On immunotherapy Anxiety Brain aneurysm Reprots from taking LSD- no surgery for this Emphysema lung ([facility]) GERD (gastroesophageal reflux disease) Hepatitis B reports she is clear HIV (human immunodeficiency virus infection) ([facility]) [address] Dr. Mcdonald-ID Persistent cough 07/2022 Tobacco [...] by mouth every 8 hours as needed. ooqkhgtttee-jagykiplxdebp-kcgpgejsi alafenamide (BIKTARVY) 50-200-25 mg per tablet Take [...] 945.22, ICD10: T25.221A - call placed to [facility] wound care center- they say they have referral and will be calling patient to schedule this week - no signs or symptoms or infection - red flag symptoms discussed, verbalizes understanding - continue wound care as ordered and follow-up with wound care, to ER with red flag symptoms Diamond Bright APRN.TRANSPORTATION ENGINEERING TECHNICIAN Prescription instructions reviewed with patient as applicable. [...] Level: 4 - Moderate documented in this encounterGrand Lake Joint Township [facility]07-26-2024 Telephone encounter Note * Telephone Encounter - Zeny Aquino RN - 02/10/2024 12:43 PM EDT Patient calls and is asking where she is supposed to go for wound care. Patient notified that she is to go to [facility] and she should call them to schedule. Patient voiced understanding. Zeny Aquino RN [facility]07-26-2024 Miscellaneous Notes* Telephone Encounter - Zeny Aquino RN - 02/10/2024 12:43 PM EDT Patient calls and is asking where she is supposed to go for wound care. Patient notified that she is to go to [facility] and she should call them to schedule. Patient voiced understanding. Zeny Aquino RN * Telephone Encounter - Coretta Fierro RN - 02/10/2024 10:08 AM EDT Patient requesting her consult order to [facility] CARE [employer] be faxed to [facility]. Order has been faxed to [facility] Central Scheduling. Pt states she will contact [facility] later today to discuss appropriate scheduling of this. Coretta Fierro RN documented in this encounterGrand Lake Joint Township District [facility]07-[facility]-2024 Telephone encounter Note * Telephone Encounter - [...] Maurice MA February 10, 2024 11:47 AM [facility]07-26-2024 Miscellaneous Notes* Telephone Encounter - Margareth Maurice [...] and advise. Abigail Rich documented in this encounterGrand Lake Joint Township District [facility] Hospital07-26-2024 Telephone encounter Note * Telephone Encounter - [...] days. Please review and advise. Abigail Rich [facility]07-26-2024 Telephone encounter Note* Telephone Encounter - Coretta Fierro RN - 02/10/2024 10:08 AM EDT Patient requesting her consult order to SKIN CARE TEAM be faxed to [facility]. Order has been faxed to [facility] Central Scheduling. Pt states she will contact [facility] later today to discuss appropriate scheduling of this. Coretta Fierro RN [facility]07-22-2024 Telephone encounter Note* Telephone Encounter - Abigail William LPN - 02/06/2024 3:33 PM EDT faxed to [facility]. Abigail William LPN [facility]07-22-2024 Miscellaneous Notes* Telephone Encounter - Abigail William [...] 02/06/2024 1:17 PM EDT Steph with [facility] reports she received the form back in [...] I sent during her office visit to [facility]. * Telephone Encounter - Zeny Aquino RN - 02/06/2024 12:04 PM EDT Patient calls and is asking if provider can send order to [facility] for gauze, tape, and dressing? Patient also states that she needs prescription for silvadene. Please review and advise, Zeny Aquino RN documented in this encounterGrand Lake Joint Township District [facility]07-22-2024 Telephone encounter Note * Telephone Encounter - Prudencio Pedro MD - 02/06/2024 3:01 PM EDT Completed. [facility]07-22-2024 Telephone encounter Note* Telephone Encounter - Abigail William LPN - 02/06/2024 2:38 PM EDT Form returned to PCP for completion. Abigail William LPN [facility]07-22-2024 Telephone encounter Note* Telephone Encounter - Leda [...] of form and re-fax. Leda Burdick LPN [facility]07-22-2024 Telephone encounter Note* Telephone Encounter - Prudencio Pedro MD - 02/06/2024 12:21 PM EDT I reordered the Silvadene. Everything else I sent during her office visit to [facility]. [facility]07-22-2024 Telephone encounter Note* Telephone Encounter - Zeny Aquino RN - 02/06/2024 12:04 PM EDT Patient calls and is asking if provider can send order to [facility] for gauze, tape, and dressing? Patient also states that she needs prescription for silvadene. Please review and advise, Zeny Aquino RN [facility]07-22-2024 History of Present illness Narrative* Prudencio Pedro MD - 02/06/2024 9:56 AM EDT Chief Complaint Patient presents with: ER F/U: Patient has no dressing supplies and reports no money HPI Tracy Vazquez is a 54 year old female who presents here today for Above Complaints. Worker'scomp. Patient evalutaed at [facility] ED on for c/o 1st and 2nd degree burn to right foot which she sustained while working at [employer]. Was carrying pot of water and burned [...] of her foot have ruptured. Not taking [place] and is not having much pain. Wrapping [...] clear HIV (human immunodeficiency virus infection) ([facility]) [address] Dr. Mcdonald-ID Persistent cough 07/2022 Tobacco [...] every 8 hours as needed for pain. jvceohdmbvz-tbeqbkuncdwxu-pczmyipqy alafenamide (BIKTARVY) 50-200-25 mg per tablet Take [...] 4 Prudencio Pedro MD documented in this encounterGrand Lake Joint Township [facility]07-20-2024 History of Present illness Narrative* Kathleen Maurice [...] proper Worker's Comp. protocol. documented in this encounterGrand Lake Joint Township District [facility] Hospital07-20-2024 Telephone encounter Note * Telephone Encounter - Prudencio Pedro MD - 02/04/2024 8:28 AM EDT Reviewed and agree. [facility]07-20-2024 Miscellaneous Notes* Telephone Encounter - Prudencio Pedro [...] for assistance with dressing. Caller conferenced to [place] in appointment center for available appointment in [...] have any questions, you can call Nurse distribution center associate back. documented in this encounterGrand Lake Joint Township District [facility] Hospital07-20-2024 Telephone encounter Note * Telephone Encounter - [...] for assistance with dressing. Caller conferenced to [place] in appointment center for available appointment in [...] have any questions, you can call Nurse distribution center associate back. [facility]06-03-2024 Telephone encounter Note* Telephone Encounter - Stephenie Arrieta PA-C - 12/19/2023 9:13 AM EDT Is sent a script for Augmentin to preferred pharmacy. Radha [facility]06-03-2024 Miscellaneous Notes* Telephone Encounter - Stephenie Arrieta [...] for a stronger decongestant? documented in this encounterGrand Lake Joint Township District [facility] Hospital05-31-2024 Telephone encounter Note * Telephone Encounter - [...] forward to covering providers. Tian Naylor LPN [facility]05-31-2024 Telephone encounter Note* Telephone Encounter - Chika Conde MA - 12/16/2023 9:11 AM EDT Patient called in again asking about a prescription for an antibiotic. States she is not feeling any better. [facility]05-24-2024 Telephone encounter Note* Telephone Encounter - Mitzi Ibarra RN - 12/09/2023 11:59 AM EDT Patient checking on reply. Did advise patient to EC for evaluation. Patient declined. [facility]05-22-2024 Telephone encounter Note* Telephone Encounter - Bambi Gonsalez RN - 12/07/2023 12:16 PM EDT Patient called asking about having an antibiotic and/or steroid ordered. Reports increased cough with thick, clear sputum. Bambi Gonsalez RN [facility]05-22-2024 Telephone encounter Note* Telephone Encounter - Lori Stokes RN - 12/07/2023 11:25 AM EDT Patient c/o productive cough. No fevers. Is using Mucinex but not helping. Patient asking if can send a prescription in for a stronger decongestant? T [facility]05-07-2024 History of Present illness Narrative* Meagan Ribeiro APRN.TRANSPORTATION ENGINEERING TECHNICIAN - 11/22/2023 3:05 PM EDT Subjective Abdominal Pain Associated symptoms include nausea and vomiting. Pertinent negatives include fever, diarrhea, headaches and myalgias. Tracy Vazquez is a 53 year old female who presents to [facility] care for a work excuse. She [...] clear HIV (human immunodeficiency virus infection) ([facility]) [address] Dr. Mcdonald-ID Persistent cough 07/2022 Tobacco [...] by mouth every 8 hours as needed. frpdvjcvgou-qjmyqbsuyjooq-wxisinhmn alafenamide (BIKTARVY) 50-200-25 mg per tablet Take [...] Discussed expected course of illness Meagan Ribeiro APRN.TRANSPORTATION ENGINEERING TECHNICIAN documented in this encounterGrand Lake Joint Township District [facility]05-07-2024 Instructions* Patient Instructions* Meagan Ribeiro APRN.CNP - [...] illness Meagan Ribeiro APRN.CNP documented in this encounterGrand Lake Joint Township District [facility] Hospital04-24-2024 History of Present illness Narrative* Madelyn Bailey RPFT - 11/09/2023 10:29 AM EDT PULM FUNCTION SMARTBLOCK: Provider: David Brown MD Assisting Tech: Madelyn Bailey RPFT Spirometry: 1 documented in this encounterGrand Lake Joint Township District [facility] Hospital04-24-2024 History of Present illness Narrative* Stephenie Arrieta [...] clear HIV (human immunodeficiency virus infection) ([facility]) [address] Dr. Mcdonald-ID Persistent cough 07/2022 Tobacco [...] by mouth every 8 hours as needed. ysghafdfnwi-matdkaxbxpwns-sgyasyjmg alafenamide (BIKTARVY) 50-200-25 mg per tablet Take [...] tobacco. Enrolled in lung cancer screening at [facility]. Portions of this documentation were copied and pasted from previous office visit notes in order to provide a cohesive continuity of the history. The note has been reviewed and edited and updated as necessary. Stephenie Arrieta PA-C documented in this encounterGrand Lake Joint Township District [facility] Hospital04-18-2024 Miscellaneous Notes* Telephone Encounter - Stephenie Joseph - 11/03/2023 11:01 AM EDT Error documented in this encounterGrand Lake Joint Township District [facility] Hospital04-16-2024 Miscellaneous Notes* Telephone Encounter - Thea Carrillo NoemySohalo Kodi - 11/01/2023 2:57 PM EDT Could we have a new order? Bilateral Diagnostic mammogram. Pt due for her screening. Thanks a million documented in this encounterGrand Lake Joint Township District [facility] Hospital04-08-2024 History of Present illness Narrative* Pma Garibay PA-C - 10/24/2023 11:29 AM EDT This note was created using [employer]. Subjective Tracy Vazquez is a 53 year old female. HPI Presents with a chief complaint of nausea and vomiting yesterday. She states she had to call off work yesterday and needs a note. Today she feels fine. She had eaten out at [employer] and had a steak and potato the [...] 8 hours as needed. 90 Each 0 lauqfylpbnx-wqemrefzzftdv-ikxokyhmc alafenamide (BIKTARVY) 50-200-25 mg per tablet Take [...] again. Pam Garibay PA-C documented in this encounterGrand Lake Joint [facility]03-20-2024 Miscellaneous Notes* Telephone Encounter - Venecia Gusman [...] 04, 2023 10:59 AM documented in this encounterGrand Lake Joint Township District [facility] Hospital03-07-2024 Miscellaneous Notes* Telephone Encounter - Donna Brown [...] in requesting prescription be called into [facility] in [place]. States she feels likeshe has bronchitis. Reports body aches, increased congestion and mucus, trouble sleeping and fatigue x 3 days. Further states that she is gagging on mucus. Denies fever but states I'm sweating. Please advise. documented in this encounterGrand Lake Joint Township District [facility] Hospital02-28-2024 Miscellaneous Notes* Telephone Encounter - Tian Naylor [...] advise. Bambi Gonsalez RN documented in this encounterGrand Lake Joint Township District [facility] Hospital02-21-2024 Instructions* Patient Instructions* Diamond Bright APRN.TRANSPORTATION ENGINEERING TECHNICIAN - 09/07/2023 10:17 AM EST Images from [...] If you do not have a responsible concrete mixing truck driver (family member or friend) withyou to take you home, your exam cannot be done with sedation and will be cancelled. Please bring a list of all of your current medications, including any Nods-mdu-Bjnxzsy medications with you. Medications If you take [...] your exam. 2 06/2019 documented in this encounterGrand Lake Joint Township District [facility] Hospital02-21-2024 History of Present illness Narrative* Diamond Bright [...] medication changes or fevers Follows with , transportation attendant. Lung cancer screening up to date PAST MEDICAL HISTORY Diagnosis Date Allergies On immunotherapy Anxiety Brain aneurysm Reprots from taking LSD- no surgery for this Emphysema lung (HCC) GERD (gastroesophageal reflux disease) Hepatitis B reports she is clear HIV (human immunodeficiency virus infection) ([facility]) 2009 Dr. Mcdonald-ID Persistent cough 07/2022 Tobacco [...] beforemeal. (Patient not taking: Reported on 05/09/2023) tkvkobxozyk-lohglaygzpwht-fgzxjwtdp alafenamide (BIKTARVY) 50-200-25 mg per tablet Take [...] No history of dysuria, frequency or incontinence PER DIEM REGISTERED NURSE: Negative for abnormal vaginal bleeding, abnormal vaginal [...] with infectious disease as recommended Diamond Bright APRN.TRANSPORTATION ENGINEERING TECHNICIAN Prescription instructions reviewed with patient as applicable. Patient advised if symptoms do not improve or if symptoms worsen sooner, to contact their primary care physician. Potential red flag symptoms discussed with the patient. Reviewed appropriate action plan to take if red flag symptoms occur. Patient agreeable to treatment plan. documented in this encounterGrand Lake Joint Township [facility] Hospital02-12-2024 Miscellaneous Notes* Telephone Encounter - Abigail William [...] showing as a discontinued med. Uses [facility] in [place]. documented in this encounterGrand Lake Joint Township [facility]12-11-2023 Miscellaneous Notes* Telephone Encounter - Maximino Barroso [...] you. Jason Boston RN. documented in this encounterGrand Lake Joint Township District [facility] Hospital12-08-2023 Miscellaneous Notes* Telephone Encounter - Tian Naylor LPN - 06/24/2023 2:24 PM EST EUGENE 03/14/23 Patient phones requesting refills as follows: Requested Prescriptions Pending Prescriptions Disp Refills albuterol HFA (VENTOLIN HFA) 90 mcg/actuation inhaler 1 Each 3 Sig: Inhale 2 Puffs as instructed every 4 hours as needed. Please review and advise. Tian Naylor LPN documented in this encounterGrand Lake Joint Township [facility] Hospital11-27-2023 History of Present illness Narrative* Lidia Mi [...] 13, 2023 10:45 AM documented in this encounterGrand Lake Joint Township District [facility] Hospital11-27-2023 History of Present illness Narrative* Louie Tyson PA - 06/13/2023 10:11 AM EST This note was created using [employer]. Subjective Tracy Vazquez is a 53 year [...] the arm. Still able to move it. Gvywv-kdts-tlececex. She has been taking Tylenol. She does [...] Puffs as instructed every 4 hours asneeded. pvgsdrgwtge-xcuijjfwoeiky-ahqlgwyyn alafenamide (BIKTARVY) 50-200-25 mg per tablet Take [...] ER evaluation. KERRI Fragoso documented in this encounterGrand Lake Joint Township District [facility] Hospital11-14-2023 Miscellaneous Notes* Telephone Encounter - Donna Brown [...] patient. Venecia Gusman MA documented in this encounterGrand Lake Joint Township District [facility] Hospital11-01-2023 Miscellaneous Notes* Telephone Encounter - Abigail August [...] months to monitor progression. documented in this encounterGrand Lake Joint Township District Memorial Hospital10-31-2023 History of Present illness Narrative* Gem Saxena [...] 17, 2023 2:55 PM documented in this encounterGrand Lake Joint Township [facility] Hospital10-31-2023 History of Present illness Narrative* Maria Del [...] IV DATA: Not applicable SIGNED BY: Noemy TanSohalo Kodi May 17, 2023 8:53 AM documented in this encounterGrand Lake Joint Township District [facility] Hospital10-23-2023 History of Present illness Narrative* Bruce Wilson MD - 05/09/2023 1:20 PM EDT Bruce Wilson MD Department of Orthopaedics Orthopaedics [address] [facility] [address] Dept: [phone] Dept May 09, 2023 CHIEF COMPLAINT: New and Fracture of the Left Wrist HPI Patient here today for a left wrist fracture. Injury happened 3 weeks ago when she tripped on the sidewalk while walking to the store. She denies any pain today. Arrives with brace on the wrist. She is right hand dominant. 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 ASSESSMENT: M25.532 Left wrist pain (primary encounter [...] motion. IMAGING: IMPRESSION: No acute osseous abnormality. Ice Cutter: REJI Transcribe Date/Time: May 11 2023 12:02P [...] clear HIV (human immunodeficiency virus infection) ([facility]) 2009 Dr. Mcdonald-ID Persistent cough 07/2022 Tobacco [...] Puffs as instructed every 4 hours asneeded. rebaclutegn-xdzryzusfokhs-uldbllcsd alafenamide (BIKTARVY) 50-200-25 mg per tablet Take [...] physician via [place] mail. Aliyah Araujo [address] [phone] Prudencio Pedro MD [address] [phone] Bruce Wilson MD documented in this encounterGrand Lake Joint Township District [facility] Hospital09-19-2023 Miscellaneous Notes* Telephone Encounter - Tian Naylor LPN - 04/05/2023 8:12 AM EDT Patient calling and states Z pack given at [facility] 03/14 was not helpful. She was seen in on 03/30 andviral panel negative. She does not have a fever. Cough is productive of thick whitish sputum and she c/o of chest discomfort from forceful coughing. Asking if an additional course of ATB could be called to [place] [facility]? Tian Naylor LPN documented in this encounterGrand Lake Joint Township District [facility] Hospital09-14-2023 Miscellaneous Notes* Telephone Encounter - Ephraim Lara LPN - 03/31/2023 8:46 AM EDT Pt notified of results with verbalizes understanding. Ephraim Lara LPN * Telephone Encounter - Azalea Betancourt LPN - 03/31/2023 8:37 AM EDT Left message for patient to return call. Azalea Betancourt LPN * Telephone Encounter - Grazyna Oh MA - 03/31/2023 8:33 AM EDT ----- Message from Meagan Ribeiro APRN.TRANSPORTATION ENGINEERING TECHNICIAN sent at 03/31/2023 7:11 AM EDT ----- Please advise patient the COVID and flu test was negative. documented in this encounterGrand Lake Joint Township District [facility] Hospital09-13-2023 History of Present illness Narrative* Rob Chirinos [...] clear HIV (human immunodeficiency virus infection) ([facility]) [address] Dr. Mcdonald-ID Persistent cough 07/2022 Tobacco [...] Puffs as instructed every 4 hours asneeded. yqukwqdnqeb-jhbchhzcfevko-utaxgvjsl alafenamide (BIKTARVY) 50-200-25 mg per tablet Take [...] of care. This note was generated using [employer] software. It may contain errors in wording, punctuation, or spelling. Rob Chirinos APRN.TRANSPORTATION ENGINEERING TECHNICIAN documented in this encounterGrand Lake Joint Township District [facility] Hospital08-28-2023 Miscellaneous Notes* Telephone Encounter - Jody Olivares RN - 03/14/2023 3:44 PM EDT Left detailed message on identified voicemail. The following approved medication requests have been transmitted electronically. Requested Prescriptions Signed Prescriptions Disp Refills miconazole (MONISTAT) 2 % vaginal cream 54 g 0 Sig: Use 1 Applicator vaginally daily at bedtime for 7 days. Authorizing Provider: ILIANA ALBARADO Pharmacy Information Pharmacy Address [phone] [place] [address] * Telephone Encounter - Iliana Albarado MD - 03/14/2023 3:42 PM EDT Rx sent To be evaluated in office if symptoms worsen or do not improve * Telephone Encounter - Frances Armijo LPN - 03/14/2023 1:22 PM EDT Pt stopped in the office and reports that she was treated for BV through [facility] on 02/17/23 andis now on another antibiotic for bronchitis. Pt is now having yeast sxs for the past couple days and does not have money to purchase Monistat 7. She is asking that something be sent into her pharmacy. [facility]. Please advise. Frances Armijo LPN documented in this encounterGrand Lake Joint Township District Memorial Hospital08-28-2023 History of Present illness Narrative* David Brown MD - 03/14/2023 11:45 AM EDT Images from the original note were not included. . [facility] Note Patient name: Tracy Vazquez PCP: Prudencio [...] continues on immunotherapy and has been using scxk-zbx-qfvpcbi antihistamine but she hasnot been using her nasal spray. DATA: Labs: Component Ref Range & Units 6 mo ago Alpha 1 Antitrypsin 90 - 200 mg/dL 134 PAST MEDICAL HISTORY Diagnosis Date Allergies On immunotherapy Anxiety Brain aneurysm Reprots from taking LSD- no surgery for this Emphysema lung ([facility]) GERD (gastroesophageal reflux disease) Hepatitis B reports she is clear HIV (human immunodeficiency virus infection) ([facility]) [address] Dr. Mcdonald-ID Persistent cough 07/2022 Tobacco [...] Puffs as instructed every 4 hours asneeded. tjkmttukiyd-qwmimrzubyaak-kpxtujjzb alafenamide (BIKTARVY) 50-200-25 mg per tablet Take [facility]. Social History Tobacco Use [...] enrolled in lung cancer screening program through [facility]. Due for CT in August David Brown MD [facility] documented in this encounterGrand Lake Joint Township District [facility] Hospital08-07-2023 Miscellaneous Notes* Telephone Encounter - Roxane Lan [...] and advise. Stephenie Lafleur documented in this encounterGrand Lake Joint Township District Memorial Hospital08-03-2023 Miscellaneous Notes* Telephone Encounter - Azalea Betancourt LPN - 02/17/2023 7:20 AM EDT Pt made aware. Azalea Betancourt LPN * Telephone Encounter - Louie Tyson PA - 02/17/2023 7:14 AM EDT Please let patient know she tested positive for bacterial vaginosis. This is not an STD. It is an overgrowth of bacteria. [facility]. Please take all of this medication.Do not drink alcohol while taking this medication. documented in this encounterGrand Lake Joint Township [facility] Hospital08-02-2023 History of Present illness Narrative* Pam Garibay PA-C - 02/16/2023 3:24 PM EDT This note was created using [employer]. Subjective Tracy Vazquez is a 53 year [...] clear HIV (human immunodeficiency virus infection) ([facility]) [address] Dr. Mcdonald-ID Persistent cough 07/2022 Tobacco [...] every 4 hours asneeded. 1 Inhaler 1 hipmkabiypy-keyuntjprrzeu-swcanqrli alafenamide (BIKTARVY) 50-200-25 mg per tablet Take [...] CULTURE Pam Garibay PA-C documented in this encounterGrand Lake Joint Township District Memorial Hospital06-21-2023 Miscellaneous Notes* Telephone Encounter - Jes Harry LPN - 01/05/2023 8:02 AM EDT PATIENT NOTIFIED OF SAME. * Telephone Encounter - Mara Kaiser APRN.CNP - 01/05/2023 7:12 AM EDT Please notify of negative covid test. Continue comfort measures for symptoms as you would for a cold. Any worsening symptoms follow up with PCP or ER. Mara Kaiser APRN.TRANSPORTATION ENGINEERING TECHNICIAN documented in this encounterGrand Lake Joint Township District Memorial Hospital05-13-2023 Miscellaneous Notes* Telephone Encounter - Mitzi Ibarra [...] 07/06/2022 8. : No Protocols used: Skin Pwmcna-IOCOR-BW documented in this encounterGrand Lake Joint Township District Memorial Hospital05-05-2023 Miscellaneous Notes* Telephone Encounter - Mitzi Ibarra [...] range. Diamond Bright APRN.CNP documented in this encounterGrand Lake Joint Township District [facility] Hospital05-05-2023 Miscellaneous Notes* Telephone Encounter - Blanca Rojo LPN - 11/19/2022 8:02 AM EDT Images from the original note were not included. Patient calling asking for lab results. VITAMIN D 25 HYDROXY Order: [id number] Status: Final result Visible to patient: No (inaccessible in MyChart) Dx: Vitamin D deficiency 1 Result Note Component Ref Range & Units 2 d ago 3 mo ago Vitamin D 25 Hydroxy 31.0 - 80.0 ng/mL 68.2 17.4 Low CM Resulting Agency [facility] CCM Specimen Collected: 11/17/22 2:56 [...] Top Went over results from Diamond Bright STOCK ANALYST with understanding. documented in this encounterGrand Lake Joint Township District Memorial Hospital05-03-2023 History of Present illness Narrative* Diamond Bright APRN.CNP - 11/17/2022 2:44 PM EDT 11/17/2022 Patient presents with: Acute Visit: Wants vitamin D checked Nicotine Dependence: Wants to talk about smoking cessation SUBJECTIVE: This is a 52 year old that is here today for Above Complaints.. Would like her vitamin D rechecked. Finished her 95919 units.Feels tired. Want to stop smoking. Does [...] Puffs as instructed every 4 hours asneeded. xmhiynhjvuz-haovifxdwruoj-fmcliljpe alafenamide (BIKTARVY) 50-200-25 mg per tablet Take [...] which included preparing to see the patient, dkhy-sj-ouei patient care, completing clinical documentation, obtaining and/or reviewing separately obtained history, performing a medically appropriate examination, counseling and educating the pat ient/family/caregiver, and ordering medications, tests, or procedures. documented in this encounterGrand Lake Joint Township District Memorial Hospital04-24-2023 Miscellaneous Notes* Telephone Encounter - Milagros Abdullahi [...] and advise. Abigail Rich documented in this encounterGrand Lake Joint Township District Memorial Hospital04-21-2023 History of Present illness Narrative* Meagan Ribeiro APRN.TRANSPORTATION ENGINEERING TECHNICIAN - 11/05/2022 2:36 PM EDT Images from the original note were not included. Subjective Animal Bite Tracy Vazquez is a 52 year old female who presents with multiple scratches from her cat. This is her emotional support animal and we have seen her here in [facility] 3 times this year for [...] clear HIV (human immunodeficiency virus infection) ([facility]) [address] Dr. Mcdonald-ID Persistent cough 07/2022 Tobacco [...] Puffs as instructed every 4 hours asneeded. jaawzocpylv-iqwwyboxfjdyq-hxhswtxyr alafenamide (BIKTARVY) 50-200-25 mg per tablet Take [...] Discussed expected course of illness Meagan Praisler-Wood, MAINTENANCE PLANNER.TRANSPORTATION ENGINEERING TECHNICIAN documented in this encounterGrand Lake Joint Township District Memorial Hospital04-21-2023 Instructions* Patient Instructions* Meagan Ribeiro APRN.CNP - [...] illness Meagan Ribeiro APRN.CNP documented in this encounterGrand Lake Joint Township District Memorial Hospital04-17-2023 History of Present illness Narrative* Pam Garibay PA-C - 11/01/2022 1:52 PM EDT This note was created using [employer]. Subjective Tracy Vazquez is a 52 year [...] clear HIV (human immunodeficiency virus infection) ([facility]) [address] Dr[address] Mcdonald-ID Persistent cough 07/2022 Tobacco [...] every 4 hours asneeded. 1 Inhaler 1 allqkvuqnzk-agmxmcokqtscs-hnggbqeye alafenamide (BIKTARVY) 50-200-25 mg per tablet Take [...] UTD. Pam Garibay PA-C documented in this encounterGrand Lake Joint Township District Memorial Hospital04-04-2023 Miscellaneous Notes* Telephone Encounter - Mattie Serrano [...] months to monitor closely. documented in this encounterGrand Lake Joint Township District Memorial Hospital04-04-2023 History of Present illness Narrative* Angela Raymundo [...] 19, 2022 11:59 AM documented in this encounterGrand Lake Joint Township District Memorial Hospital04-04-2023 History of Present illness Narrative* Aliyah Peng [...] 19, 2022 10:56 AM documented in this encounterGrand Lake Joint Township District Memorial Hospital03-06-2023 Miscellaneous Notes* Telephone Encounter - Kamryn Fontana RN - 09/20/2022 4:58 PM EST Spoke with patient. Given message from provider's office. Patient verbalizes understanding. Transferred to PER DIEM REGISTERED NURSE for appointment. Kamryn Fontana RN * Telephone Encounter - Coretta Fierro RN - 09/20/2022 4:50 PM EST VM left for pt to call PCP office for provider's message below. Coretta Fierro RN * Telephone Encounter - Leo Cheatham DO - 09/20/2022 4:15 PM EST Please make her an appt in PER DIEM REGISTERED NURSE office Leo Cheatham DO * Telephone Encounter [...] cancellation. 7. -: no Protocols used: Breast Bztthjwk-WXUZH-EW documented in this encounterGrand Lake Joint Township District [facility] Hospital02-28-2023 Miscellaneous Notes* Letter - Mammography Coordinator - 09/14/2022 4:50 PM EST September 15, 2022 PID: [id number] Tracy [address] [place] [address] Dear Ms. Vazquez, Your recent breast imaging exam on 09/13/2022 showed a possible finding that requires additional imaging studies for a complete evaluation. Most such findings are probably benign (not cancer). If you have a healthcare provider who ordered/prescribed your screening mammogram: Please call [phone] or [phone] to schedule an appointment for your additional [...] and reports are kept on file at [facility] as part of your permanent medical record, and are available for your continuing care. Thank you for allowing us to help in meeting your health care needs. Sincerely, Dr. Quispe Interpreting Radiologist [facility] (Additional imaging) documented in this encounterGrand Lake Joint Township District Memorial Hospital02-24-2023 Miscellaneous Notes* Telephone Encounter - Tian Naylor [...] pt Roxane Evans RN documented in this encounterGrand Lake Joint Township District Memorial Hospital02-22-2023 Miscellaneous Notes* Telephone Encounter - Gely Estrada [...] improving. Rob Chirinos APRN.CNP documented in this encounterGrand Lake Joint Township District Memorial Hospital02-21-2023 Instructions* Patient Instructions* Rob Chirinos APRN.CNP - [...] or concerning to you. documented in this encounterGrand Lake Joint Township District Memorial Hospital02-21-2023 History of Present illness Narrative* Rob Chirinos [...] Puffs as instructed every 4 hours asneeded. vvqjlnbfpyc-nfgagrjclburm-mqpcvgvvc alafenamide (BIKTARVY) 50-200-25 mg per tablet Take [...] of care. This note was generated using [employer] software. It may contain errors in wording, punctuation, or spelling. Rob Chirinos APRN.TRANSPORTATION ENGINEERING TECHNICIAN documented in this encounterGrand Lake Joint Township District Memorial Hospital02-20-2023 Miscellaneous Notes* Telephone Encounter - Jason Boston [...] and she is almost out. [facility] [place]. Please call pt with update. Thank you. * Telephone Encounter - Jason oBston RN - 09/06/2022 10:37 AM EST Pt [...] over the counter. 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 Please [...] you. Jason Boston RN documented in this encounterGrand Lake Joint Township District Memorial Hospital02-16-2023 History of Present illness Narrative* Prudencio Pedro [...] Puffs as instructed every 4 hours asneeded. tgijzgcfuwl-qnwcsbsiwvlvd-ihrmynejp alafenamide (BIKTARVY) 50-200-25 mg per tablet Take [...] detail. Prudencio Pedro MD documented in this encounterGrand Lake Joint Township District Memorial Hospital02-16-2023 Miscellaneous Notes* Telephone Encounter - Prudencio Pedro [...] to help with this. documented in this encounterGrand Lake Joint Township District Memorial Hospital02-08-2023 Miscellaneous Notes* Telephone Encounter - Kamryn Fontana [...] that she had lung screening done at [facility]. Patient had CT Scan done. Patientasking for provider to review and advise. Patient was referred to [facility] pulmonology by Namrata Cho NP. Please review and advise, Zeny Aquino RN documented in this encounterGrand Lake Joint Township District [facility] Hospital02-08-2023 Miscellaneous Notes* Telephone Encounter - Kacey Narayanan LPN - 08/25/2022 5:23 PM EST Patient calling regarding returning call to go over results . Conferenced to Kamryn in Dr. Killian at phone number ([phone]) for assistance. Kacey Narayanan LPN documented in this encounterGrand Lake Joint Township District Memorial Hospital02-01-2023 Instructions* Patient Instructions* Diamond Bright APRN.ANALILIA - 08/18/2022 9:24 AM EST Keep area clean, dry and covered Watch area for surrounding redness, excessive warmth, drainage, fever or chills- return to office if this develops. Go to ER with red flag symptoms- which would be red streaking up the leg documented in this encounterGrand Lake Joint Township District Memorial Hospital02-01-2023 History of Present illness Narrative* Diamodn Bright APRN.ANALILIA - 08/18/2022 9:16 AM EST [...] Puffs as instructed every 4 hours asneeded. rxhxhvlrqwm-hvjtcxfxgcfnv-dhrxqpgsz alafenamide (BIKTARVY) 50-200-25 mg per tablet Take [...] - FECAL OCCULT BLOOD TEST Diamond Bright APRN.TRANSPORTATION ENGINEERING TECHNICIAN Prescription instructions reviewed with patient as applicable. [...] which included preparing to see the patient, nxky-rc-vrfo patient care, completing clinical documentation, obtaining and/or reviewing separately obtained history, performing a medically appropriate examination, counseling and educating the pat ient/family/caregiver, and ordering medications, tests, or procedures. documented in this encounterGrand Lake Joint Township District Memorial Hospital01-30-2023 Miscellaneous Notes* Telephone Encounter - Jason Boston [...] had any other directions. documented in this encounterGrand Lake Joint Township District Memorial Hospital01-23-2023 Miscellaneous Notes* Addendum Note - Gem Wilder APRN.CNM - 08/09/2022 1:40 PM ESTAddended by: GEM WILDER on: 08/09/2022 01:40 PM Modules accepted: Orders * Addendum Note - Jason Cintron MA - 08/09/2022 1:39 PM ESTAddended by: JASON CINTRON on: 08/09/2022 01:39 PM Modules accepted: Orders documented in this encounterGrand Lake Joint Township District Memorial Hospital01-23-2023 History of Present illness Narrative* Gem Wilder [...] external genitalia normal, normal Bartholin's glands, urethra, [place]'s glands, no vulvar lesions, no cervical lesions, [...] Level: 3 - Low documented in this encounterGrand Lake Joint Township District Memorial Hospital01-19-2023 Miscellaneous Notes* Telephone Encounter - Abigail William [...] in prescription for zyrtec? [facility] Please review and advise, Zeny qAuino RN documented in this encounterGrand Lake Joint Township District [facility] Hospital01-19-2023 Miscellaneous Notes* Telephone Encounter - Cassie Shipley MA - 08/05/2022 8:14 AM EST Patient notified of results, verbalized understanding. Cassie Shipley MA * Telephone Encounter - KERRI Fragoso - 08/05/2022 7:37 AM EST Please let patient know COVID and flu negative. documented in this encounterGrand [facility]01-18-2023 Miscellaneous Notes* Telephone Encounter - Tracy Rausch [...] problem. Venecia Davies LPN documented in this encounterGrand Lake Joint Township [facility]01-18-2023 Miscellaneous Notes* Telephone Encounter - Zeny Aquino [...] phone patient with reply. documented in this encounterGrand Lake Joint Township [facility]01-17-2023 Miscellaneous Notes* Telephone Encounter - Shraddha Cuevas [...] home now and can be reached at [phone]. Venecia Davies LPN * Telephone Encounter - Prudencio Pedro MD - 08/03/2022 3:18 PM EST We will call her when they are back. * Telephone Encounter - Jimbo Pacheco Pss - 08/03/2022 2:07 PM EST Patient calling for lab results from yesterday. documented in this encounterGrand Lake Joint Township [facility]01-17-2023 Miscellaneous Notes* Telephone Encounter - Coretta Fierro RN - 08/03/2022 3:19 PM EST Pt calling and requesting Lung Cancer Screening referral be faxed to [facility] at [phone]. Faxed as requested. Coretta Fierro RN documented in this encounterGrand Lake Joint [facility]01-16-2023 Miscellaneous Notes* Telephone Encounter - Diamond Bright APRN.ANALILIA - 08/02/2022 2:58 PM EST Reviewed. Thanks, Diamond Bright APRN.ANALILIA * Telephone Encounter - Venecia Davies LPN - 08/02/2022 2:37 PM EST Also faxed pulmonary testing to [facility]. Venecia Davies LPN * Telephone Encounter - Venecia Davies LPN - 08/02/2022 2:17 PM EST Pt called back and reports she spoke with [facility] and they can do the Lung Cancer Screening at [facility]. Faxnumber [phone]. Faxed order/OV/face sheet. Done. Venecia Davies LPN [...] this being able daniela done local unless [facility] has this option. Mitch will see what ARIC Fields has to say about where to best go for lung cancer screening. documented in this encounterGrand Lake [facility]01-16-2023 History of Present illness Narrative* Diamond Bright [...] clear HIV (human immunodeficiency virus infection) ([facility]) 2009 Dr. Mcdonald-ID Persistent cough 07/2022 Tobacco [...] mouth daily before breakfast. 1/2 hr beforemeal. cxbkrofczae-ifpuifnaehddr-mmfmixhru alafenamide (BIKTARVY) 50-200-25 mg per tablet Take [...] No history of dysuria, frequency or incontinence PER DIEM REGISTERED NURSE: Negative for abnormal vaginal bleeding, abnormal vaginal [...] transportation - ICD9: V15.89, ICD10: Z59.82 - INSURANCE DEFENSE PARALEGAL [CONSULT TO SOCIAL WORK] 9. Encounter for [...] agreeable to treatment plan. documented in this encounterGrand Lake Joint Township [facility]01-13-2023 History of Present illness Narrative* Kathleen Maurice APRN.ANALILIA - 07/30/2022 8:32 AM EST Images from the original note were not included. Subjective Patient came in with complaints of cat bite on left forearm. Patient says it is her own cat. Patient denies any fever chills nausea vomiting swelling redness. The history is provided by the patient. No biology department chair was used. Animal Bite Review of Systems [...] clear HIV (human immunodeficiency virus infection) ([facility]) [address] Dr. Mcdonald-ID Persistent cough 07/2022 Tobacco [...] Puffs as instructed every 4 hours asneeded. lrhqmyjiqkr-pususezntxlla-bspjpxihs alafenamide (BIKTARVY) 50-200-25 mg per tablet Take [...] patient. Kathleen Maurice APRN.CNP documented in this encounterGrand Lake [facility]01-05-2023 Miscellaneous Notes* Telephone Encounter - Milagros Abdullahi MA - 07/22/2022 9:22 AM EST Patient notified. Milagros Abdullahi MA * Telephone Encounter - Diamond Bright APRN.CNP - 07/22/2022 9:03 AM EST This can be discussed at upcoming appointment. Diamond Bright APRN.CNP * Telephone Encounter - oCretta Rich - 07/22/2022 8:58 AM EST Patient [...] with update. Thank you. documented in this encounterGrand Lake Joint Township [facility]01-03-2023 History of Present illness Narrative* CHING Orellana - 07/20/2022 9:15 AM EST PULM FUNCTION SMARTBLOCK: Provider: Prudencio Pedro MD Assisting Tech: CHING Orellana Spirometry w/BD: 1 LV - Box: 1 documented in this encounterGrand Lake Joint Township [facility] Hospital12-21-2022 Miscellaneous Notes* Telephone Encounter - Coretta Fierro [...] need tetanus shot updated. documented in this encounterGrand Lake Joint Township District [facility] Hospital12-20-2022 History of Present illness Narrative* Chantel Shah APRN.TRANSPORTATION ENGINEERING TECHNICIAN - 07/06/2022 4:41 PM EST Images from [...] Puffs as instructed every 4 hours asneeded. wzmwdutjsxl-smmrxfunqknlz-crdeeodrc alafenamide (BIKTARVY) 50-200-25 mg per tablet Take [...] Updated. Chantel Shah APRN.CNP documented in this encounterGrand Lake Joint Township [facility] Hospital12-19-2022 History of Present illness Narrative* Diamond Bright [...] Puffs as instructed every 4 hours asneeded. fhcspbgkveb-jblnccniaixxc-kgzxsillz alafenamide (BIKTARVY) 50-200-25 mg per tablet Take [...] which included preparing to see the patient, zukp-gb-iipx patient care, completing clinical documentation, obtaining and/or reviewing separately obtained history, performing a medically appropriate examination, and counseling and educating the patient/family/caregiver. documented in this encounterGrand Lake Joint Township [facility] Hospital12-14-2022 Miscellaneous Notes* Telephone Encounter - Diamond Bright [...] advise, Zeny Aquino RN documented in this encounterGrand Lake Joint Township District [facility] Hospital12-13-2022 History of Present illness Narrative* Prudencio Pedro [...] Puffs as instructed every 4 hours asneeded. tpujiwrfuod-eryvxtsojojzk-jeyvcpqaj alafenamide (BIKTARVY) 50-200-25 mg per tablet Take [...] YR Prudencio Pedro MD documented in this encounterGrand Lake Joint Township District [facility] Hospital12-12-2022 Miscellaneous Notes* Telephone Encounter - Zeny Aquino [...] advise, Zeny Aquino RN documented in this encounterGrand Lake Joint Township District [facility] Hospital12-05-2022 Miscellaneous Notes* Telephone Encounter - Abigail William LPN - 06/21/2022 2:47 PM EST Left detailed message on secure VM regarding provider's message. * Telephone Encounter - Prudencio Pedro MD - 06/21/2022 12:01 PM EST 3 month rx for prevacid sent to pharmacy. Call if not improving symptoms in 1-2 weeks. * Telephone Encounter - Mariangel Connors [facility] - 06/21/2022 11:04 AM EST Tracy Vazquez is calling Prudencio Pedro MD today to request a prescription for GERD,medication to be sent to [facility] in [place], if provider agrees to restarting this medication. Patient is stating it was prevacid Patient has been identified by name and birthdate. Duration of symptoms: N/A Person calling: self Call patient at: at home [phone] (home) Was an appointment scheduled: No Closing statement: Results or non-symptom based questions: Thank you for calling [facility], your call will be returned within the next business day. Mariangel Connors [employer] documented in this encounterGrand Lake Joint Township [facility] Hospital11-21-2022 Miscellaneous Notes* Telephone Encounter - NAMITA Pickens [...] advise. Leda Burdick LPN documented in this encounterGrand Lake Joint Township [facility] Hospital11-15-2022 Miscellaneous Notes* Telephone Encounter - Gely Estrada [...] Please advise. Thank you. documented in this encounterGrand Lake Joint Township [facility] Hospital11-15-2022 Miscellaneous Notes* Telephone Encounter - Prudencio Pedro [...] weeks. Venecia Davies LPN documented in this encounterGrand Lake Joint Township [facility] Hospital11-11-2022 Miscellaneous Notes* Telephone Encounter - Mitzi Ibarra [...] TB. Please advise patient. documented in this encounterGrand Lake Joint Township [facility] Hospital11-09-2022 Miscellaneous Notes* Telephone Encounter - Prudencio Pedro [...] to try changing medications. documented in this encounterGrand Lake Joint Township District [facility] Hospital10-31-2022 Miscellaneous Notes* Telephone Encounter - Rut Darnell [...] get the flu shot? documented in this encounterGrand Lake Joint Township District [facility] Hospital10-17-2022 Miscellaneous Notes* Telephone Encounter - Shraddha Cuevas [...] Ayoub. 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 Please review and advise, Zeny Aquino RN documented in this encounterGrand Lake Joint Township District [facility] Hospital09-28-2022 Miscellaneous Notes* Telephone Encounter - Shraddha Cuevas [...] advise. Abigail August LPN documented in this encounterGrand Lake Joint Township District [facility] Hospital09-26-2022 Miscellaneous Notes* Telephone Encounter - Shraddha Cuevas [...] she was asking for Paxlovid rx. Aware STOCK ANALYST and PCP are both out of office today. Patient said her symptoms began 2.5 months ago with coughing. Patient said she can not do virtual visit does not know how to do that. Aware can not schedule phone visit. Advised to go to [facility] for evaluation.Patient said her transportation will not pick her up since she has COVID, she is afraid of passing to her friend. Advised to wear double mask if friend brings her express care. Patient said she will decide what she is going to do. documented in this encounterGrand Lake Joint Township District [facility] Hospital09-23-2022 History of Present illness Narrative* Diamond Bright APRN.TRANSPORTATION ENGINEERING TECHNICIAN - 04/09/2022 11:49 AM EDT Covid 04/09/2022 Patient presents with: ER F/U: [facility] on Mar 18 for bronchitis SUBJECTIVE: This is a 52 year old that is here today for Above Complaints. HOSPITAL/ER FOLLOW UP: Reason for visit: cough and congestion Which facility: [facility] Date of visit: 03/18/2022 Diagnosis: cold symptoms [...] Puffs as instructed every 4 hours asneeded. oufwojuothr-atfzpfxlahnxt-zashsokpk alafenamide (BIKTARVY) 50-200-25 mg per tablet Take 1 tablet bymiuth once daily. No current facility-administered medications for [...] which included preparing to see the patient, phim-zy-yqne patient care, completing clinical documentation, obtaining and/or reviewing separately obtained history, performing a medically appropriate examination, counseling and educating the pat ient/family/caregiver, and ordering medications, tests, or procedures. . documented in this encounterGrand Lake Joint Township District [facility] Hospital09-19-2022 Miscellaneous Notes* Telephone Encounter - Venecia Davies [...] problem. Venecia Davies LPN documented in this encounterGrand Lake Joint Township District [facility] Hospital09-15-2022 Miscellaneous Notes* Telephone Encounter - Kacey Schneider Ma - 04/01/2022 11:47 AM EDT Message left for pt to call back. Kacey Schneider MA * Telephone Encounter - Puneet Montiel MD - 04/01/2022 9:54 AM EDT I can give her a little more. If continues, needs seen-even if it is urgent care for continued cough. * Telephone Encounter - Mariangel Connors [facility] - 04/01/2022 8:48 AM EDT Patient is calling for medication doxycycline 100 mg taking it twice daily, this is an antibiotic that she received from [facility] ER on 03/18/2022. [...] she can have an RX sent to [facility] in [place]. Or what else she can do for the lingering cough. Her phone number is [phone] Patient said she was told she had a bacterial infection in the bronchial tubes. This was two weeks ago. documented in this encounterGrand Lake Joint Township [facility] Hospital08-04-2022 History of Present illness Narrative* Prudencio Pedro [...] clear HIV (human immunodeficiency virus infection) ([facility]) [address] Dr. Mcdonald-CARLOS Previous Surgical History PAST [...] 1 tablet by mouth every 12 hours. wnelkczjvou-bjeferqtsooxd-syruvzzdc alafenamide (BIKTARVY) 50-200-25 mg per tablet Take [...] VOLUMES Prudencio Pedro MD documented in this encounterGrand Lake Joint Township District [facility] Hospital07-13-2022 Miscellaneous Notes* Telephone Encounter - David Perez Ma - 01/27/2022 12:09 PM EDT PA approved, left message on confidential vm David Perez Ma * Telephone Encounter - David Perez Ma - 01/26/2022 4:18 PM EDT PA submitted through [employer] will wait for response David Perez Ma * Telephone Encounter - Mattie Serrano LPN - 01/26/2022 2:24 PM EDT Tracy wants office to be aware that fexofenadine (xiao) will need to have a PA. Generic Mucinex is covered and Patient was able to pickup. Patient did not ask how much pseudoephedrin-guaifenesin was out of pocket. Mattie Serrano LPN documented in this encounterGrand Lake Joint Township District [facility] Hospital07-12-2022 Miscellaneous Notes* Telephone Encounter - Milagros Chen Cma - 01/26/2022 2:22 PM EDT Patient notified and verbalized understanding Milagros Chen Cma * Telephone Encounter - Diamond Bright APRN.CNP - 01/26/2022 12:17 PM EDT Normal chest xray. Continue with treatment as discussed in office ThanksDiamond APRN.CNP documented in this encounterGrand Lake Joint Township District [facility] Hospital07-12-2022 History of Present illness Narrative* Diamond Kaila, DARIUS.TRANSPORTATION ENGINEERING TECHNICIAN - 01/26/2022 11:05 AM EDT 01/26/2022 Patient [...] Mite MEDICATIONS Current Outpatient Medications Medication Sig vfyqimqduan-hidjftuwtkboz-gzhukmhav alafenamide (BIKTARVY) 50-200-25 mg per tablet Take [...] [facility]. [facility] Diagnosis Encounter for screening mammogram for breast cancer documented in this encounter [facility]* Diagnosis Acute cough- Primary Eye drainage Redness or discharge of eye Smoking Tobacco use disorder documented in this encounter [facility] noteNo assessment information availableWRiverside Methodist Hospital Work Phone: Evaluation note* Diagnosis Persistent cough- Primary Cough Suspected COVID-19 virus infection Tobacco use Tobacco use disorder documented in this encounter [facility] note* Diagnosis Cough, unspecified type- Primary Symptoms of upper respiratory infection (URI) Tobacco use Tobacco use disorder Seasonal allergies Allergic rhinitis, cause unspecified documented in this encounter [facility] note* Diagnosis Seasonal allergies Allergic rhinitis, cause unspecified documented in this encounter [facility]* Diagnosis Acute right-sided low back pain with right-sided sciatica- Primary Need for COVID-19 vaccine documented in this encounter [facility]* Diagnosis Gingivitis- Primary Chronic gingivitis, plaque induced documented in this encounter [facility]* Diagnosis Cat bite, initial encounter- Primary Need for tetanus booster Need for prophylactic vaccination with tetanus toxoid alone documented in this encounter [facility] note* Diagnosis Persistent cough Cough Tobacco use Tobacco use disorder documented in this encounter [facility]* Diagnosis Cat bite, initial encounter- Primary documented in this encounter [facility]* Diagnosis Routine physical examination- Primary [...] symptom status (HCC) documented in this encounter [facility]* Diagnosis Vitamin D deficiency- Primary Unspecified vitamin D deficiency documented in this encounter [facility]Evaluation [facility]* Diagnosis Vaginal discharge- Primary Leukorrhea, not specified as infective documented in this encounter [facility] [place] [facility]* Diagnosis Cat bite, initial encounter- Primary Encounter for screening fecal occult blood testing Special screening for malignant neoplasms, colon documented in this encounter [facility]Eval[facility] [place] [facility]* Diagnosis Chronic obstructive pulmonary disease, unspecified COPD type (HCC)- Primary documented in this encounter [facility] [place] [facility]* Diagnosis Onset Date Resolution Status Encounter for screening for malignant neoplasm of lung acute Tobacco use disorder, continuous acute [facility] Work Phone: Evaluation note* Diagnosis Tobacco use- Primary Tobacco use disorder Cat scratch Other and unspecified superficial injury of other, multiple, and unspecified sites, without mention of infection Cat bite, initial encounter documented in this encounter [facility] [place] [facility]* Diagnosis Vaginal discharge Leukorrhea, not specified as infective Bacterial vaginosis Vaginitis and vulvovaginitis, unspecified documented in this encounter [facility] [place] [facility]* Diagnosis Viral illness- Primary Unspecified viral infection, in conditions classified elsewhere and of unspecified site Loose stools Abnormal feces [facility] Diagnosis Cat bite, initial encounter- Primary documented in this encounter [facility]* Diagnosis Multiple abrasions- Primary Abrasion or friction burn of other, multiple, and unspecified sites, without mention of infection [facility]* Diagnosis Vitamin D deficiency- Primary Unspecified vitamin D deficiency Smoking Tobacco use disorder [facility]* Diagnosis Abnormal mammogram- Primary Abnormal mammogram, unspecified documented in this encounter [facility]* Diagnosis Vaginal discharge- Primary Leukorrhea, not specified as infective Urinary frequency [facility]* Diagnosis Vaginal itching- Primary Pruritus of genital organs documented in this encounter [facility]* Diagnosis Simple chronic bronchitis (HCC)- Primary Simple chronic bronchitis Centrilobular emphysema (HCC) Other emphysema Cigarette smoker Tobacco use disorder documented in this encounter [facility]* Diagnosis Viral illness- Primary Unspecified viral infection, in conditions classified elsewhere and of unspecified site Loose stools Abnormal feces documented [facility]* Diagnosis Abnormal mammogram- Primary Abnormal mammogram, unspecified documented in this encounter [facility]* Diagnosis Pain in left wrist Pain in joint, forearm documented in this encounter [facility]* Diagnosis Abnormal mammogram Abnormal mammogram, unspecified documented in this encounter [facility] note* Diagnosis Encounter for screening mammogram for breast cancer [facility] [place] [facility]* Diagnosis Abnormal mammogram Abnormal mammogram, unspecified documented in this encounter [facility]* Diagnosis Abnormal mammogram Abnormal mammogram, unspecified documented in this encounter [facility]* Diagnosis Abnormal mammogram Abnormal mammogram, unspecified documented in this encounter [facility]* Diagnosis Left wrist pain- Primary Pain in joint, forearm Closed fracture of left wrist, initial encounter documented in this encounter [facility]* Diagnosis Productive cough Cough documented in this encounter [facility]* Diagnosis Acute pain of left shoulder- Primary documented in this encounter [facility] [place] [facility]* Diagnosis Persistent cough Cough Suspected COVID-19 virus infection documented in this encounter [facility]* Diagnosis Annual physical exam- Primary Routine general medical examination at a [facility] care facility Screening for colon cancer Special screening for malignant neoplasms, colon Depression screening Screening for depression Abnormal mammogram Abnormal mammogram, unspecified Tobacco use disorder, continuous Tobacco use disorder Centrilobular emphysema (HCC) Other emphysema HIV infection, unspecified symptom status (HCC) documented in this encounter [facility]* Diagnosis Productive cough Cough documented in this encounter [facility] [place] [facility]* Diagnosis Encounter for screening mammogram for breast cancer documented in this encounter [facility] [place] [facility]* Diagnosis Nausea and vomiting, unspecified vomiting type- Primary documented in this encounter [facility] [place] [facility]* Diagnosis Abnormal mammogram- Primary Abnormal mammogram, unspecified documented in this encounter [facility] [place] [facility]* Diagnosis Centrilobular emphysema (HCC) Other emphysema documented in this encounter [facility] [place] [facility]* Diagnosis Centrilobular emphysema (HCC)- Primary Other emphysema Chronic bronchitis, unspecified chronic bronchitis type (HCC) Cigarette smoker Tobacco use disorder [facility] [place] [facility]* Diagnosis Nausea- Primary Nausea alone History of vomiting Personal history of other specified diseases documented in this encounter [facility] [place] [facility]* Diagnosis Acute sinusitis, recurrence not specified, unspecified location- Primary documented [facility] [place] [facility]* Diagnosis Encounter related to worker's compensation claim- Primary Other general medical examination for administrative purposes documented in this encounter [facility]Eval[facility] [place] [facility]* Diagnosis Partial thickness burn of right foot, initial encounter- Primary documented in this encounter [facility] [place] [facility]* Diagnosis Partial thickness burn of right foot, initial encounter documented in this encounter [facility] [place] [facility]* Diagnosis Partial thickness burn of right foot, initial encounter- Primary Centrilobular emphysema (HCC)- Primary Other emphysema Current smoker Tobacco use disorder documented in this encounter [facility] [place] [facility]* Diagnosis Partial thickness burn of right foot, initial encounter- Primary Cellulitis of skin Cellulitis and abscess of unspecified site documented in this encounter [facility]Eval[facility] [place] [facility]* Diagnosis Partial thickness burn of right foot, sequela- Primary [facility] [place] [facility] Diagnosis Visit for wound check- Primary Encounter for other specified aftercare documented in this encounter [facility] [place] [facility]* Diagnosis Preop examination- Primary Preoperative examination, unspecified [facility] [place] [facility] Diagnosis Viral URI with cough- Primary Acute upper respiratory infections of unspecified site COPD with exacerbation (HCC) Obstructive chronic bronchitis with exacerbation Persistent cough Cough Suspected COVID-19 virus infection [facility] [place] [facility]* Diagnosis Pre-op evaluation- Primary Preoperative examination, unspecified Partial thickness burn of right foot, subsequent encounter COPD with exacerbation (HCC) Obstructive chronic bronchitis with exacerbation 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 documented in this encounter [facility] [place] [facility]* Diagnosis Procedure not carried out- Primary Procedure not carried out for other reasons documented in this encounter [facility] [place] [facility]* Diagnosis Acute pain of left shoulder documented in this encounter [facility] [place] [facility]* Diagnosis Productive cough Cough documented in this encounter [facility] [place] [facility]* Diagnosis Fall, initial encounter Rib pain on left side Chest pain, unspecified Injury of left wrist, initial encounter [facility] [place] [facility]* Diagnosis Productive cough Cough [facility] Diagnosis Acute cough documented in this encounter [facility] [place] [facility]* Diagnosis Visit for wound check- Primary Encounter for other specified aftercare [facility] Diagnosis Respiratory infection- Primary Other diseases of respiratory system, not elsewhere classified documented in this encounter [facility] [place] [facility]* Diagnosis Cat scratch- Primary Other and unspecified superficial injury of other, multiple, and unspecified sites, without mention of infection Phlegm in throat Abnormal sputum documented in this encounter [facility] [place] [facility]* Diagnosis Centrilobular emphysema (HCC)- Primary Other emphysema Simple chronic bronchitis (HCC) Simple chronic bronchitis Cigarette smoker Tobacco use disorder Productive cough Cough Gastroesophageal reflux disease, unspecified whether esophagitis present Productive cough Cough documented in this encounter [facility] [place] [facility]* Diagnosis Vaginal discharge- Primary Leukorrhea, not specified as infective Urinary frequency documented in this encounter [facility] [place] [facility]* Diagnosis Productive cough Cough documented in this encounter [facility] [place] [facility]* Diagnosis Impacted cerumen of right ear- Primary Impacted cerumen documented in this encounter [facility] [place] [facility]* Diagnosis Pulmonary emphysema, unspecified emphysema type (HCC)- Primary documented in this encounter [facility] [place] [facility]* Diagnosis Abnormal mammogram Abnormal mammogram, unspecified documented in this encounter [facility] [place] [facility]* Diagnosis URI, acute- Primary Acute upper respiratory infections of unspecified site documented in this encounter [facility] [place] [facility]* Diagnosis Viral URI- Primary Acute upper respiratory infections of unspecified site Paresthesias in right hand Disturbance of skin sensation documented in this encounter [facility] [place] [facility]* Diagnosis Chronic obstructive pulmonary disease with (acute) exacerbation (HCC) Acute upper respiratory infection Acute upper respiratory infections of unspecified site documented [facility] this [facility] Diagnosis COPD with exacerbation (HCC)- Primary Obstructive chronic bronchitis with exacerbation Tobacco use Tobacco use disorder documented in this encounter [facility] [place] [facility]* Diagnosis Mouth pain- Primary Other and unspecified diseases of the oral soft tissues documented [facility] this [facility] Diagnosis Cough with sputum- Primary Cough Right lower quadrant abdominal pain Abdominal pain, right lower quadrant documented in this encounter [facility] [place] [facility]* Diagnosis Nausea- Primary Nausea alone Flatulence Flatulence, eructation, and gas pain Epigastric pain Abdominal pain, epigastric Centrilobular emphysema (HCC)- Primary Other emphysema Simple chronic bronchitis (HCC) Simple chronic bronchitis Cigarette smoker Tobacco use disorder [facility] Additional Instructions CT head negative. Use Tylenol as needed. Follow-up your doctor.[facility] Work Phone: Hospital Discharge instructionsAmbulatory Orders* Dermatology Location: None Selected [facility] Work Phone: Hospital Discharge instructionsAdditional Instructions Take Tylenol every 6 hours as needed. If you feel your symptoms are worsening such as severe headache, vomiting, vision changes or trouble moving your arms and legs etc. come back to the emergency room.[facility] Work Phone: Hospital Discharge instructionsAmbulatory Orders* Gastroenterology Location: None Selected [facility] Work Phone: Hospital Discharge instructionsAdditional Instructions Your blood test look normal. Follow-up for your abdominal ultrasound is scheduled.[facility] Work Phone: Progress note Author Juvencio Colon [facility] Note Date/Time May 02, 2025 1 0:13am [facility] [address] [place] [address] OFFICE VISIT Date of Service: 05/02/25 MR#: [id number] Acct: [id number] Name: TRACY VAZQUEZ Rep # : [id number] : 1970 Provider: Dr. Stefano Colon MD Age/Sex: 55/F Location: [facility] Status: Signed Intake Vital Signs 03/15/25 [...] carbonate)-vitamin D3 15 mcg (600 unit) tablet [facility] Medical History (Updated 05/02/25 @ 09:59 [...] apartment current occupational status: employed current occupation: [employer] Smoking Status: Current every day smoker tobacco [...] this [facility] Juvencio Colon MD Pager: [facility] [address] [place] [address], [address] [place] [address] Office: Coding Level of Care Code Off vis,new,level 4 Diagnoses Cholelithiasis K80.20 Thickening of wall of gallbladder K82.8 Clinical Quality Measures Smoking Screening Smoking Status: Current every day smoker Tobacco use cessation counseling not done: No 05/02/25 1022 <Electronically signed by Juvencio valverde MD> Date _ Juvencio Colon MD Cosigner Signature: Date (if applicable) CC: Dr. Fina Iraheta MD ~ [facility] Work Phone: [facility] for referral (narrative)* Diagnostic Procedure Only (Routine) - Pending Review Specialty Diagnoses / Procedures Referred By Contac t Referred To Contact [facility] Diagnoses Encounter for screening mammogram for breast cancer Procedures ANALIA SCREENING SCREENING MAMMOGRAPHY BI 2-VIEW BREAST INC CAD Prudencio Pedro MD [address] [place] [address] [facility] Imaging [address] [place] [phone] Referral ID Status Reason Start Date Expiration Date Visits Requested Visits Authorized [id number] Pending Review Auto-Generat ed Referral 01/20/2022 02/19/2023 1 1 [facility] for referral (narrative)* Outpatient Procedure (Routine) - Pending Review Specialty Diagnoses / Procedures Referred By Contac t Referred To [facility] Diagnoses Persistent cough Tobacco use Procedures LUNG VOLUMES Prudencio Pedro MD [address] [place] [address] [facility] [address] [place] [address] Referral ID Status Reason Start Date Expiration Date Visits Requested Visits Authorized [id number] Pending Review Auto-Generat ed Referral 02/18/2022 03/20/2023 1 1 * Outpatient Procedure (Routine) - Authorized Specialty Diagnoses / Procedures Referred By Contac t Referred To Contact [facility] Diagnoses Persistent cough Tobacco use Procedures SPIROMETRY - BASELINE AND POST DILATOR BRNCDILAT RSPSE SPMTRY PRE&POST-BRNCDILAT ADMN Prudencio Pedro MD [address] [place] [address] [facility] [address] [place] [address] Referral ID Status Reason Start Date Expiration Date Visits Requested Visits Authorized [id number] Authorized Auto-Generat ed Referral 02/18/2022 03/20/2023 1 1 [facility] for referral (narrative)* Diagnostic Procedure Only (Routine) - Pending Review Specialty Diagnoses / Procedures [facility] Diagnoses Fatigue, unspecified type Daytime somnolence Procedures HOME SLEEP APNEA TEST (HSAT) SLEEP STD AIRFLOW HRT RATE&O2 SAT EFFORT Diamond Carney APRN.CNP [address] [place] [address] [place] [phone] Referral ID Status Reason Start Date Expiration Date Visits Requested Visits Authorized [id number] Pending Review Auto-Generat ed Referral 08/02/2022 08/02/2023 1 1 [facility] for referral (narrative)* Outpatient Procedure (Routine) - Pending Review Specialty Diagnoses / Procedures [facility] Diagnoses Chronic obstructive pulmonary disease, unspecified COPD type (HCC) Procedures SPIROMETRY WITH DILATOR IF OBSTRUCTED BRNCDILAT RSPSE SPMTRY PRE&POST-BRNCDILAT David Saleh MD [address] [place] [address] Respiratory [place] [phone] Referral ID Status Reason Start Date Expiration Date Visits Requested Visits Authorized [id number] Pending Review Auto-Generat ed Referral 08/27/2022 09/25/2023 1 1 [facility] for referral (narrative)* Diagnostic Procedure Only (Routine) - Pending Review Specialty Diagnoses / Procedures [facility] Referred To Contact [facility] Diagnoses Abnormal mammogram Procedures US BREAST LTD RIGHT US BREAST UNI REAL TIME WITH IMAGE LIMITED Prudnecio Pedro MD [address] [place] [address] [facility] [address] [place] [address] Referral ID Status Reason Start Date Expiration Date Visits Requested Visits Authorized [id number] Pending Review Auto-Generat ed Referral 04/20/2023 11/18/2023 1 1 * Diagnostic Procedure Only (Routine) - Authorized Specialty Diagnoses / Procedures Referred By Xi t Referred To Contact [facility] IM[facility] Diagnoses Abnormal mammogram Procedures ANALIA DIAGNOSTIC RIGHT DIAGNOSTIC MAMMOGRAPHY COMPUTER-AIDED DETCJ UNI Prudencio Pedro MD [address] [place] [address] [facility] [address] [place] [address] Referral ID Status Reason Start Date Expiration Date Visits Requested Visits Authorized [id number] Authorized Auto-Generat ed Referral 04/20/2023 11/18/2023 1 1 [facility] for referral (narrative)* Outpatient Procedure (Routine) - Authorized Specialty Diagnoses / Procedures [facility] Diagnoses Centrilobular emphysema (HCC) Procedures SPIROMETRY WITH DILATOR IF OBSTRUCTED BRNCDILAT RSPSE SPMTRY PRE&POST-BRNCDILAT David Saleh MD [address] [place] [address] [facility] [address] [place] [phone] Referral ID Status Reason Start Date Expiration Date Visits Requested Visits Authorized [id number] Authorized Auto-Generat ed Referral 03/14/2023 04/12/2024 1 1 [facility] for referral (narrative)* Diagnostic Procedure Only (Routine) - Authorized Specialty Diagnoses / Procedures [facility] Referred To Contact [facility] Diagnoses Abnormal mammogram Procedures ANALIA DIAGNOSTIC RIGHT DIAGNOSTIC MAMMOGRAPHY COMPUTER-AIDED DETCJ UNI Prudencio Pedro MD [address] [place] [address] [facility] [address] [place] [address] Referral ID Status Reason Start Date Expiration Date Visits Requested Visits Authorized [id number] Authorized Auto-Generat ed Referral 05/18/2023 06/16/2024 1 1 * Diagnostic Procedure Only (Routine) - Pending Review Specialty Diagnoses / Procedures Referred By Contac t Referred To Contact [facility] Diagnoses Abnormal mammogram Procedures US BREAST LTD RIGHT US BREAST UNI REAL TIME WITH IMAGE LIMITED Prudencio Pedro MD [address] [place] [address] [facility] [address] [place] [phone] Referral ID Status Reason Start Date Expiration Date Visits Requested Visits Authorized [id number] Pending Review Auto-Generat ed Referral 05/18/2023 06/16/2024 1 1 [facility] for referral (narrative)* Diagnostic Procedure Only (Routine) - Closed Specialty Diagnoses / Procedures Referred By Contac t Referred To Contact XR IMAGING Diagnoses Pain in left wrist Procedures XR WRIST GENERAL 3V PA/LAT/OBL LEFT RADEX WRIST COMPLETE MINIMUM 3 VIEWS Bruce Wilson MD [address] [place] [address] Xr Imaging [facility] Referral ID Status Reason Start Date Expiration Date V isits Requested Visits Authorized [id number] Closed Auto-Generate d Referral 05/04/2023 06/02/2024 1 1 [facility] for referral (narrative)* Diagnostic Procedure Only (Routine) - Closed Specialty Diagnoses / Procedures Referred By Contac t Referred To Contact [facility] Diagnoses Abnormal mammogram Procedures US BREAST LTD RT US BREAST UNI REAL TIME WITH IMAGE LIMITED Prudencio Pedro MD [address] [place] [address] [facility] [address] [place] [address] Referral ID Status Reason Start Date Expiration Date V isits Requested Visits Authorized [id number] Closed Auto-Generate d Referral 09/15/2022 10/15/2023 1 1 [facility] for referral (narrative)* Diagnostic Procedure Only (Routine) - Closed Specialty Diagnoses / Procedures Referred By Xi manning Referred To Contact [facility] IM[facility] Diagnoses Encounter for screening mammogram for breast cancer Procedures ANALIA SCREENING SCREENING MAMMOGRAPHY BI 2-VIEW BREAST INC CAD Prudencio Pedro MD [address] [place] [address] [facility] [place] [address] Referral ID Status Reason Start Date Expiration Date V isits Requested Visits Authorized [id number] Closed Auto-Generate d Referral 01/20/2022 02/19/2023 1 1 [facility] for referral (narrative)* Diagnostic Procedure Only (Routine) - Closed Specialty Diagnoses / Procedures Referred By Xi manning Referred To Contact [facility] IM[facility] Diagnoses Abnormal mammogram Procedures US BREAST LTD RIGHT US BREAST UNI REAL TIME WITH IMAGE LIMITED Prudencio Pedro MD [address] [place] [address] [facility] [address] [place] [address] Referral ID Status Reason Start Date Expiration Date V isits Requested Visits Authorized [id number] Closed Auto-Generate d Referral 04/20/2023 11/18/2023 1 1 T [facility] for referral (narrative)* Outpatient Procedure (Routine) - Authorized Specialty Diagnoses / Procedures Referred By Xi manning Referred To Contact [facility] Diagnoses Screening for colon cancer Procedures COLONOSCOPY SCREENING COLONOSCOPY FLX DX W/COLLJ SPEC WHEN PFRMD Diamond Bright APRN.TRANSPORTATION ENGINEERING TECHNICIAN [address] [place] [address] [facility] [address] [place] [address] Referral ID Status Reason Start Date Expiration Date Visits Requested Visits Authorized [id number] Authorized Auto-Generat ed Referral 09/07/2023 09/07/2024 1 1 [facility] for referral (narrative)* Diagnostic Procedure Only (Routine) - Pending Review Specialty Diagnoses / Procedures Referred By Xi manning Referred To Contact [facility] Diagnoses Encounter for screening mammogram for breast cancer Procedures ANALIA SCREENING SCREENING MAMMOGRAPHY BI 2-VIEW BREAST INC CAD Prudencio Pedro MD [address] [place] [address] [facility] [address] [place] [address] Referral ID Status Reason Start Date Expiration Date Visits Requested Visits Authorized [id number] Pending Review Auto-Generat ed Referral 10/19/2023 11/17/2024 1 1 T [facility] for referral (narrative)* Diagnostic Procedure Only (Routine) - Pending Review Specialty Diagnoses / Procedures Referred By Xi manning Referred To Contact [facility] Diagnoses Abnormal mammogram Procedures ANALIA DIAGNOSTIC BILATERAL DIAGNOSTIC MAMMOGRAPHY COMPUTER-AIDED DETCJ BI Diamond Bright APRN.TRANSPORTATION ENGINEERING TECHNICIAN [address] [place] [address] [facility] [address] [place] [address] Referral ID Status Reason Start Date Expiration Date Visits Requested Visits Authorized [id number] Pending Review Auto-Generat ed Referral 11/01/2023 11/30/2024 1 1 [facility] for referral (narrative)* Outpatient Procedure (Routine) - New Request Specialty Diagnoses / Procedures Referred By Contac t Referred To Contact [facility] Diagnoses Pre-op evaluation Procedures ECG COMPLETE ECG ROUTINE ECG W/LEAST 12 LDS W/I&R Prudencio Pedro MD [address] [place] [address] [facility] [address] [facility] [place] [address] Referral ID Status Reason Start Date Expiration Date Visits Requested Visits Authorized [id number] New Request Auto-Generat ed Referral 03/21/2024 03/21/2025 1 1 [facility] for referral (narrative)* Diagnostic Procedure Only (Urgent) - Closed Specialty Diagnoses / Procedures Referred By Contac t Referred To Contact XR IMAGING Diagnoses Acute pain of left shoulder Procedures XR SHOULDER GENERAL 3V OR MORE AP/TRUE AP/OTHER LEFT RADEX SHOULDER COMPLETE MINIMUM 2 VIEWS [facility] [address] [place] [address] Xr Imaging [facility] Referral ID Status Reason Start Date Expiration Date V isits Requested Visits Authorized [id number] Closed Auto-Generate d Referral 06/13/2023 07/12/2024 1 1 [facility] for referral (narrative)* Diagnostic Procedure Only (Routine) - Closed Specialty Diagnoses / Procedures Referred By Contac t Referred To Contact XR IMAGING Diagnoses Fall, initial encounter Injury of left wrist, initial encounter Procedures XR WRIST GENERAL 3V PA/LAT/OBL LEFT RADEX WRIST COMPLETE MINIMUM 3 VIEWS Aliyah Araujo, DARIUS.TRANSPORTATION ENGINEERING TECHNICIAN [address] [place] [address] [place] [address] Referral ID Status Reason Start Date Expiration Date V isits Requested Visits Authorized [id number] Closed Auto-Generate d Referral 04/18/2023 05/17/2024 1 1 * Diagnostic Procedure Only (Routine) - Closed Specialty Diagnoses / Procedures Referred By Contac t Referred To Contact XR IMAGING Diagnoses Fall, initial encounter Rib pain on left side Procedures XR RIBS 2V AP/OBL LEFT RADEX RIBS UNILATERAL 2 VIEWS Aliyah Araujo APRN.TRANSPORTATION ENGINEERING TECHNICIAN [address] [place] [address] X[facility] Imaging [facility] Referral ID Status Reason Start Date Expiration Date V isits Requested Visits Authorized [id number] Closed Auto-Generate d Referral 04/18/2023 05/17/2024 1 1 [facility] for referral (narrative)* Outpatient Procedure (Routine) - New Request Specialty Diagnoses / Procedures Referred By Contac t Referred To Contact [facility] Diagnoses Pulmonary emphysema, unspecified emphysema type (HCC) Procedures LUNG VOLUMES Ayad Metcalf APRN.ANALILIA [address] [facility] [place] [phone] [facility] [address] [place] [address] Referral ID Status Reason Start Date Expiration Date Visits Requested Visits Authorized [id number] New Request Auto-Generat ed Referral 08/22/2024 09/21/2025 1 1 * Outpatient Procedure (Routine) - New Request Specialty Diagnoses / Procedures Referred By Contac t Referred To Contact [facility] Diagnoses Pulmonary emphysema, unspecified emphysema type (HCC) Procedures SPIROMETRY WITH DILATOR IF OBSTRUCTED BRNCDILAT RSPSE SPMTRY PRE&POST-BRNCDILAT ADMN Ayad Metcalf APRN.TRANSPORTATION ENGINEERING TECHNICIAN [address] [employer] [address] [place] [phone] [facility] [place] [address] [place] [phone] Referral ID Status Reason Start Date Expiration Date Visits Requested Visits Authorized [id number] New Request Auto-Generat ed Referral 08/22/2024 09/21/2025 1 1 [facility] for referral (narrative)No reason for referral [facility] Work [facility]: Reason for visit Narrative* Diagnostic Procedure Only (Routine) - Closed Specialty Diagnoses / Procedures Referred By Contac t Referred To Contact XR IMAGING Diagnoses Pain in left wrist Procedures XR WRIST GENERAL 3V PA/LAT/OBL LEFT RADEX WRIST COMPLETE MINIMUM 3 VIEWS Bruce Wilson MD [address] [place] [address] [place] [address] Referral ID Status Reason Start Date Expiration Date V isits Requested Visits Authorized [id number] Closed Auto-Generate d Referral 05/04/2023 06/02/2024 1 1 [facility] for visit Narrative* Diagnostic Procedure Only (Routine) - Closed Specialty Diagnoses / Procedures Referred By Contac t Referred To Contact [facility] IMAG[facility] Diagnoses Encounter for screening mammogram for breast cancer Procedures ANALIA SCREENING SCREENING MAMMOGRAPHY BI 2-VIEW BREAST INC CAD Prudencio Pedro MD [address] [place], [place] [id number] [facility] [address] [place] [address] Referral ID Status Reason Start Date Expiration Date V isits Requested Visits Authorized [id number] Closed Auto-Generate d Referral 01/20/2022 02/19/2023 1 1 [facility] for visit Narrative* Diagnostic Procedure Only (Routine) - Closed Specialty Diagnoses / Procedures Referred By Contac t Referred To Contact [facility] IMAG[facility] Diagnoses Abnormal mammogram Procedures ANALIA DIAGNOSTIC RIGHT DIAGNOSTIC MAMMOGRAPHY COMPUTER-AIDED DETCJ Prudencio Campoverde MD [address] [place] [address] [facility] Imaging [address] [place] [address] Referral ID Status Reason Start Date Expiration Date V isits Requested Visits Authorized [id number] Closed Auto-Generate d Referral 04/20/2023 11/18/2023 1 1 [facility] for visit Narrative* Diagnostic Procedure Only (Routine) - Closed Specialty Diagnoses / Procedures Referred By Contac t Referred To Contact [facility] IMAG[facility] Diagnoses Abnormal mammogram Procedures ANALIA DIAGNOSTIC RT DIAGNOSTIC MAMMOGRAPHY COMPUTER-AIDED DETCJ Prudencio Campoverde MD [address] [place] [address] [facility] [address] [facility] [place] [address] Referral ID Status Reason Start Date Expiration Date V isits Requested Visits Authorized [id number] Closed Auto-Generate d Referral 09/15/2022 10/15/2023 1 1 [facility] for visit Narrative* Diagnostic Procedure Only (Urgent) - Closed Specialty Diagnoses / Procedures Referred By Contac t Referred To Contact XR IMAGING Diagnoses Acute pain of left shoulder Procedures XR SHOULDER GENERAL 3V OR MORE AP/TRUE AP/OTHER LEFT RADEX SHOULDER COMPLETE MINIMUM 2 VIEWS [facility] [address] [place] [address] [place] [address] Referral ID Status Reason Start Date Expiration Date V isits Requested Visits Authorized [id number] Closed Auto-Generate d Referral 06/13/2023 07/12/2024 1 1 [facility] for visit Narrative* Diagnostic Procedure Only (Routine) - Closed Specialty Diagnoses / Procedures Referred By Contac t Referred To Contact XR IMAGING Diagnoses Fall, initial encounter Injury of left wrist, initial encounter Procedures XR WRIST GENERAL 3V PA/LAT/OBL LEFT RADEX WRIST COMPLETE MINIMUM 3 VIEWS Aliyah Araujo APRN.TRANSPORTATION ENGINEERING TECHNICIAN [address] [place] [address] [place] [address] Referral ID Status Reason Start Date Expiration Date V isits Requested Visits Authorized [id number] Closed Auto-Generate d Referral 04/18/2023 05/17/2024 1 1 [facility] Reason for Referral Specialty Diagnoses / Procedures Referred By Contac t Referred To Contact Diagnoses Acute cough PodlogarDiamond MAINTENANCE PLANNER.TRANSPORTATION ENGINEERING TECHNICIAN [address] [place] [address] Referral ID Status Reason Start Date Expiration Date Visits Re quested Visits Authorized [id number] Closed 1 1 Specialty Diagnoses / Procedures Referred By Contac t Referred To Contact Orthopedics Diagnoses Acute pain of left shoulder Procedures CONSULT TO ORTHOPAEDICS OFFICE/OUTPATIENT NEW HIGH MDM 60-74 MINUTES [facility] [address] [place] [address] Referral ID Status Reason Start Date Expiration Date Visits Requested Visits Authorized [id number] Authorized PCP Requested Referral 06/12/2024 1 1 Specialty Diagnoses / Procedures Referred By Xi t Referred To Contact XR IMAGING Diagnoses Acute pain of left shoulder Procedures XR SHOULDER GENERAL 3V OR MORE AP/TRUE AP/OTHER LEFT RADEX SHOULDER COMPLETE MINIMUM 2 VIEWS [facility] [address] [place] [address] [place] [address] Referral ID Status Reason Start Date Expiration Date V isits Requested Visits Authorized [id number] Closed Auto-Generate d Referral 06/13/2023 07/12/2024 1 1 Advance Directives No Advanced Directives Records Found Advance Directive Response Recorded Date/ Time Living Will No May 15 11:48am Power of Pest Control Worker No May 15, 2019 11:48am Advance Directive Response Recorded Date/ Time Living Will No March 18 10:15am Power of Pest Control Worker No March 18, 2022 10:15am Advance Directive Response Recorded Date/ Time Living Will No March 18 9:15am Power of Pest Control Worker No March 18, 2022 9:15am Advance Directive Response Recorded Date/ Time Living Will No March 03 11:10am Power of Pest Control Worker No March 03 11:10am Living Will No August 01 5:09pm Power of Pest Control Worker No August 01, 2024 5:09pm Advance Directive Response Recorded Date/ Time Living Will No March 03 11:10am Power of Pest Control Worker No March 03 11:10am Living Will No September 25, 2024 8:37pm Power of Pest Control Worker No September 25 8:37pm Living Will No August 01 5:09pm Power of Pest Control Worker No August 01, 2024 5:09pm Advance Directive Response Recorded Date/ Time Living Will No March 03 11:10am Do you have a Healthcare Power of Pest Control Worker? No March 03, 2024 11:10am Living Will No September 25, 2024 8:37pm Do you have a Healthcare Power of Pest Control Worker? No September 25, 2024 8:37pm Living Will No August 01 5:09pm Do you have a Healthcare Power of Pest Control Worker? No August 01, 2024 5:09pm Advance Directive Response Recorded Date/ Time Living Will No March 03 11:10am Do you have a Healthcare Power of Pest Control Worker? No March 03, 2024 11:10am Living Will No September 25, 2024 8:37pm Do you have a Healthcare Power of Pest Control Worker? No September 25, 2024 8:37pm Do you have a Healthcare Power of Pest Control Worker? No November 26, 2024 7:02am Living Will No August 01 5:09pm Do you have a Healthcare Power of Pest Control Worker? No August 01, 2024 5:09pm Advance Directive Response Recorded Date/ Time Do you have a Healthcare Power of Pest Control Worker? No November 26, 2024 7:02am Do you have a Healthcare Power of Pest Control Worker? No February 07, 2025 11:25am Advance Directive Response Recorded Date/ Time Do you have a Healthcare Power of Pest Control Worker? No November 26, 2024 7:02am Do you have a Healthcare Power of Pest Control Worker? No February 07, 2025 11:25am Do you have a Healthcare Power of Pest Control Worker? No March 08, 2025 9:18am Advance Directive Response Recorded Date/ Time Do you have a Healthcare Power of Pest Control Worker? No November 26, 2024 7:02am Do you have a Healthcare Power of Pest Control Worker? No February 07, 2025 11:25am Do you have a Healthcare Power of Pest Control Worker? No March 08, 2025 9:18am Do you have a Healthcare Power of Pest Control Worker? No March 15, 2025 6:29pm Advance Directive Response Recorded Date/ Time Do you have a Healthcare Power of Pest Control Worker? No February 07, 2025 11:25am Do you have a Healthcare Power of Pest Control Worker? No March 08, 2025 9:18am Do you have a Healthcare Power of Pest Control Worker? No March 15, 2025 6:29pm Chief Complaint [...] Date headache August 01, 2024 3 :35pm STOCK ANALYST. EST CARE - PPW SENT August 13 [...] Date headache August 01, 2024 3 :35pm STOCK ANALYST. EST CARE - PPW SENT August 13 9:26am Lung Cancer Screening September 11 11:29am SCREENING September 11, 2024 12:21pm EARS AND HEAD INJURY ISSUES August 9:30am E-ORDER September 14, 2024 11:23am SCREENING September 25, 2024 9:1 7am Chief Complaint Admit Date headache August 01, 2024 3 :35pm STOCK ANALYST. EST CARE - PPW SENT August 13 9:26am Lung Cancer Screening September 11 11:29am SCREENING September 11, 2024 12:21pm EARS AND HEAD INJURY ISSUES August 9:30am E-ORDER September 14, 2024 11:23am SCREENING September 25, 2024 9:1 7am HEAD INJURY September 25, 2024 4:4 0pm Chief Complaint Admit Date headache August 01, 2024 3 :35pm STOCK ANALYST. EST CARE - PPW SENT August 13 [...] Date headache August 01, 2024 3 :35pm STOCK ANALYST. EST CARE - PPW SENT August 13 [...] Date headache August 01, 2024 3 :35pm STOCK ANALYST. EST CARE - PPW SENT August 13 [...] sob November 26, 2024 7:02a m [facility]UTE [facility] FU-LEAVE 60 MIN November 28, 2024 2:47pm head injury February 07, 2025 11:0 9am 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, 2025 12:31pm 6 M FU February 15, 2025 10: 07am abd pain, mucus March 08, 2025 8: 40am Hospital Follow Up ([facility]) March 11 8:36am Reason for Visit Admit [...] sob November 26, 2024 7:02a m [facility] FU-LEAVE 60 MIN November 28, 2024 2:47pm head injury February 07, 2025 11:0 9am 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, 2025 12:31pm 6 M FU February 15, 2025 10: 07am abd pain, mucus March 08, 2025 8: 40am Hospital Follow Up ([facility]) March 11 8:36am NAUSEA,ITCHY FEET March 15, 2025 3: 38pm Chief Complaint Admit Date sob November 26, 2024 7:02a m [facility]UTE [facility] FU-LEAVE 60 MIN November 28, 2024 2:47pm head injury February 07, 2025 11:0 9am 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, 2025 12:31pm 6 M FU February 15, 2025 10: 07am abd pain, mucus March 08, 2025 8: 40am Hospital Follow Up ([facility]) March 11 8:36am NAUSEA,ITCHY FEET March 15, 2025 3: 38pm ITCHY FEET, NAUSEA March 15, 2025 5: 05pm Chief Complaint Admit Date head injury February 07, 2025 11:0 9am 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, 2025 12:31pm 6 M FU February 15, 2025 10: 07am abd pain, mucus March 08, 2025 8: 40am Hospital Follow Up ([facility]) March 11 8:36am NAUSEA,ITCHY FEET March 15, [...] or prosecute any alcohol or drug abuse patient.[facility] the event this information is protected by the Federal Confidentiality of Alcohol and Drug Abuse Patient Records regulations: The Federal rules restrict any use of the information to criminally investigate or prosecute any alcohol or drug abuse patient.[facility] HospitalIn the event this information is protected by the Federal Confidentiality of Alcohol and Drug Abuse Patient Records regulations: The Federal rules restrict any use of the information to criminally investigate or prosecute any alcohol or drug abuse patient.[facility] HospitalIn the event this information is protected by the Federal Confidentiality of Alcohol and Drug Abuse Patient Records regulations: The Federal rules restrict any use of the information to criminally investigate or prosecute any alcohol or drug abuse patient.[facility] HospitalIn the event this information is protected by the Federal Confidentiality of Alcohol and Drug Abuse Patient Records regulations: The Federal rules restrict any use of the information to criminally investigate or prosecute any alcohol or drug abuse patient.[facility] HospitalIn the event this information is protected by the Federal Confidentiality of Alcohol and Drug Abuse Patient Records regulations: The Federal rules restrict any use of the information to criminally investigate or prosecute any alcohol or drug abuse patient.[facility] HospitalIn the event this information is protected by the Federal Confidentiality of Alcohol and Drug Abuse Patient Records regulations: The Federal rules restrict any use of the information to criminally investigate or prosecute any alcohol or drug abuse patient.[facility] HospitalIn the event this information is protected by the Federal Confidentiality of Alcohol and Drug Abuse Patient Records regulations: The Federal rules restrict any use of the information to criminally investigate or prosecute any alcohol or drug abuse patient.[facility] HospitalIn the event this information is protected by the Federal Confidentiality of Alcohol and Drug Abuse Patient Records regulations: The Federal rules restrict any use of the information to criminally investigate or prosecute any alcohol or drug abuse patient.[facility] HospitalIn the event this information is protected by the Federal Confidentiality of Alcohol and Drug Abuse Patient Records regulations: The Federal rules restrict any use of the information to criminally investigate or prosecute any alcohol or drug abuse patient.[facility] HospitalIn the event this information is protected by the Federal Confidentiality of Alcohol and Drug Abuse Patient Records regulations: The Federal rules restrict any use of the information to criminally investigate or prosecute any alcohol or drug abuse patient.[facility] HospitalIn the event this information is protected by the Federal Confidentiality of Alcohol and Drug Abuse Patient Records regulations: The Federal rules restrict any use of the information to criminally investigate or prosecute any alcohol or drug abuse patient.[facility] HospitalIn the event this information is protected by the Federal Confidentiality of Alcohol and Drug Abuse Patient Records regulations: The Federal rules restrict any use of the information to criminally investigate or prosecute any alcohol or drug abuse patient.[facility] HospitalIn the event this information is protected by the Federal Confidentiality of Alcohol and Drug Abuse Patient Records regulations: The Federal rules restrict any use of the information to criminally investigate or prosecute any alcohol or drug abuse patient.[facility] HospitalIn the event this information is protected by the Federal Confidentiality of Alcohol and Drug Abuse Patient Records regulations: The Federal rules restrict any use of the information to criminally investigate or prosecute any alcohol or drug abuse patient.[facility] HospitalIn the event this information is protected by the Federal Confidentiality of Alcohol and Drug Abuse Patient Records regulations: The Federal rules restrict any use of the information to criminally investigate or prosecute any alcohol or drug abuse patient.[facility] HospitalIn the event this information is protected by the Federal Confidentiality of Alcohol and Drug Abuse Patient Records regulations: The Federal rules restrict any use of the information to criminally investigate or prosecute any alcohol or drug abuse patient.[facility] HospitalIn the event this information is protected by the Federal Confidentiality of Alcohol and Drug Abuse Patient Records regulations: The Federal rules restrict any use of the information to criminally investigate or prosecute any alcohol or drug abuse patient.[facility] HospitalIn the event this information is protected by the Federal Confidentiality of Alcohol and Drug Abuse Patient Records regulations: The Federal rules restrict any use of the information to criminally investigate or prosecute any alcohol or drug abuse patient.[facility] HospitalIn the event this information is protected by the Federal Confidentiality of Alcohol and Drug Abuse Patient Records regulations: The Federal rules restrict any use of the information to criminally investigate or prosecute any alcohol or drug abuse patient.[facility] HospitalIn the event this information is protected by the Federal Confidentiality of Alcohol and Drug Abuse Patient Records regulations: The Federal rules restrict any use of the information to criminally investigate or prosecute any alcohol or drug abuse patient.[facility] HospitalIn the event this information is protected by the Federal Confidentiality of Alcohol and Drug Abuse Patient Records regulations: The Federal rules restrict any use of the information to criminally investigate or prosecute any alcohol or drug abuse patient.[facility] HospitalIn the event this information is protected by the Federal Confidentiality of Alcohol and Drug Abuse Patient Records regulations: The Federal rules restrict any use of the information to criminally investigate or prosecute any alcohol or drug abuse patient.[facility] HospitalIn the event this information is protected by the Federal Confidentiality of Alcohol and Drug Abuse Patient Records regulations: The Federal rules restrict any use of the information to criminally investigate or prosecute any alcohol or drug abuse patient.[facility] HospitalIn the event this information is protected by the Federal Confidentiality of Alcohol and Drug Abuse Patient Records regulations: The Federal rules restrict any use of the information to criminally investigate or prosecute any alcohol or drug abuse patient.[facility] HospitalIn the event this information is protected by the Federal Confidentiality of Alcohol and Drug Abuse Patient Records regulations: The Federal rules restrict any use of the information to criminally investigate or prosecute any alcohol or drug abuse patient.[facility] HospitalIn the event this information is protected by the Federal Confidentiality of Alcohol and Drug Abuse Patient Records regulations: The Federal rules restrict any use of the information to criminally investigate or prosecute any alcohol or drug abuse patient.[facility] HospitalIn the event this information is protected by the Federal Confidentiality of Alcohol and Drug Abuse Patient Records regulations: The Federal rules restrict any use of the information to criminally investigate or prosecute any alcohol or drug abuse patient.[facility] HospitalIn the event this information is protected by the Federal Confidentiality of Alcohol and Drug Abuse Patient Records regulations: The Federal rules restrict any use of the information to criminally investigate or prosecute any alcohol or drug abuse patient.[facility] HospitalIn the event this information is protected by the Federal Confidentiality of Alcohol and Drug Abuse Patient Records regulations: The Federal rules restrict any use of the information to criminally investigate or prosecute any alcohol or drug abuse patient.[facility] HospitalIn the event this information is protected by the Federal Confidentiality of Alcohol and Drug Abuse Patient Records regulations: The Federal rules restrict any use of the information to criminally investigate or prosecute any alcohol or drug abuse patient.[facility] HospitalIn the event this information is protected by the Federal Confidentiality of Alcohol and Drug Abuse Patient Records regulations: The Federal rules restrict any use of the information to criminally investigate or prosecute any alcohol or drug abuse patient.[facility] HospitalIn the event this information is protected by the Federal Confidentiality of Alcohol and Drug Abuse Patient Records regulations: The Federal rules restrict any use of the information to criminally investigate or prosecute any alcohol or drug abuse patient.[facility] HospitalIn the event this information is protected by the Federal Confidentiality of Alcohol and Drug Abuse Patient Records regulations: The Federal rules restrict any use of the information to criminally investigate or prosecute any alcohol or drug abuse patient.[facility] HospitalIn the event this information is protected by the Federal Confidentiality of Alcohol and Drug Abuse Patient Records regulations: The Federal rules restrict any use of the information to criminally investigate or prosecute any alcohol or drug abuse patient.[facility] HospitalIn the event this information is protected by the Federal Confidentiality of Alcohol and Drug Abuse Patient Records regulations: The Federal rules restrict any use of the information to criminally investigate or prosecute any alcohol or drug abuse patient.[facility] HospitalIn the event this information is protected by the Federal Confidentiality of Alcohol and Drug Abuse Patient Records regulations: The Federal rules restrict any use of the information to criminally investigate or prosecute any alcohol or drug abuse patient.[facility] HospitalIn the event this information is protected by the Federal Confidentiality of Alcohol and Drug Abuse Patient Records regulations: The Federal rules restrict any use of the information to criminally investigate or prosecute any alcohol or drug abuse patient.[facility] HospitalIn the event this information is protected by the Federal Confidentiality of Alcohol and Drug Abuse Patient Records regulations: The Federal rules restrict any use of the information to criminally investigate or prosecute any alcohol or drug abuse patient.[facility] HospitalIn the event this information is protected by the Federal Confidentiality of Alcohol and Drug Abuse Patient Records regulations: The Federal rules restrict any use of the information to criminally investigate or prosecute any alcohol or drug abuse patient.[facility] HospitalIn the event this information is protected by the Federal Confidentiality of Alcohol and Drug Abuse Patient Records regulations: The Federal rules restrict any use of the information to criminally investigate or prosecute any alcohol or drug abuse patient.[facility] HospitalIn the event this information is protected by the Federal Confidentiality of Alcohol and Drug Abuse Patient Records regulations: The Federal rules restrict any use of the information to criminally investigate or prosecute any alcohol or drug abuse patient.[facility] HospitalIn the event this information is protected by the Federal Confidentiality of Alcohol and Drug Abuse Patient Records regulations: The Federal rules restrict any use of the information to criminally investigate or prosecute any alcohol or drug abuse patient.[facility] HospitalIn the event this information is protected by the Federal Confidentiality of Alcohol and Drug Abuse Patient Records regulations: The Federal rules restrict any use of the information to criminally investigate or prosecute any alcohol or drug abuse patient.[facility] HospitalIn the event this information is protected by the Federal Confidentiality of Alcohol and Drug Abuse Patient Records regulations: The Federal rules restrict any use of the information to criminally investigate or prosecute any alcohol or drug abuse patient.[facility] HospitalIn the event this information is protected by the Federal Confidentiality of Alcohol and Drug Abuse Patient Records regulations: The Federal rules restrict any use of the information to criminally investigate or prosecute any alcohol or drug abuse patient.[facility] HospitalIn the event this information is protected by the Federal Confidentiality of Alcohol and Drug Abuse Patient Records regulations: The Federal rules restrict any use of the information to criminally investigate or prosecute any alcohol or drug abuse patient.[facility] HospitalIn the event this information is protected by the Federal Confidentiality of Alcohol and Drug Abuse Patient Records regulations: The Federal rules restrict any use of the information to criminally investigate or prosecute any alcohol or drug abuse patient.[facility] HospitalIn the event this information is protected by the Federal Confidentiality of Alcohol and Drug Abuse Patient Records regulations: The Federal rules restrict any use of the information to criminally investigate or prosecute any alcohol or drug abuse patient.[facility] HospitalIn the event this information is protected by the Federal Confidentiality of Alcohol and Drug Abuse Patient Records regulations: The Federal rules restrict any use of the information to criminally investigate or prosecute any alcohol or drug abuse patient.[facility] HospitalIn the event this information is protected by the Federal Confidentiality of Alcohol and Drug Abuse Patient Records regulations: The Federal rules restrict any use of the information to criminally investigate or prosecute any alcohol or drug abuse patient.[facility] HospitalIn the event this information is protected by the Federal Confidentiality of Alcohol and Drug Abuse Patient Records regulations: The Federal rules restrict any use of the information to criminally investigate or prosecute any alcohol or drug abuse patient.[facility] HospitalIn the event this information is protected by the Federal Confidentiality of Alcohol and Drug Abuse Patient Records regulations: The Federal rules restrict any use of the information to criminally investigate or prosecute any alcohol or drug abuse patient.[facility]In the event this information is protected by the Federal Confidentiality of Alcohol and Drug Abuse Patient Records regulations: The Federal rules restrict any use of the information to criminally investigate or prosecute any alcohol or drug abuse patient.[facility]In the event this information is protected by the Federal Confidentiality of Alcohol and Drug Abuse Patient Records regulations: The Federal rules restrict any use of the information to criminally investigate or prosecute any alcohol or drug abuse patient.[facility] HospitalIn the event this information is protected by the Federal Confidentiality of Alcohol and Drug Abuse Patient Records regulations: The Federal rules restrict any use of the information to criminally investigate or prosecute any alcohol or drug abuse patient.[facility] HospitalIn the event this information is protected by the Federal Confidentiality of Alcohol and Drug Abuse Patient Records regulations: The Federal rules restrict any use of the information to criminally investigate or prosecute any alcohol or drug abuse patient.[facility] HospitalIn the event this information is protected by the Federal Confidentiality of Alcohol and Drug Abuse Patient Records regulations: The Federal rules restrict any use of the information to criminally investigate or prosecute any alcohol or drug abuse patient.[facility] HospitalIn the event this information is protected by the Federal Confidentiality of Alcohol and Drug Abuse Patient Records regulations: The Federal rules restrict any use of the information to criminally investigate or prosecute any alcohol or drug abuse patient.[facility] HospitalIn the event this information is protected by the Federal Confidentiality of Alcohol and Drug Abuse Patient Records regulations: The Federal rules restrict any use of the information to criminally investigate or prosecute any alcohol or drug abuse patient.[facility] HospitalIn the event this information is protected by the Federal Confidentiality of Alcohol and Drug Abuse Patient Records regulations: The Federal rules restrict any use of the information to criminally investigate or prosecute any alcohol or drug abuse patient.[facility] HospitalIn the event this information is protected by the Federal Confidentiality of Alcohol and Drug Abuse Patient Records regulations: The Federal rules restrict any use of the information to criminally investigate or prosecute any alcohol or drug abuse patient.[facility] HospitalIn the event this information is protected by the Federal Confidentiality of Alcohol and Drug Abuse Patient Records regulations: The Federal rules restrict any use of the information to criminally investigate or prosecute any alcohol or drug abuse patient.[facility] HospitalIn the event this information is protected by the Federal Confidentiality of Alcohol and Drug Abuse Patient Records regulations: The Federal rules restrict any use of the information to criminally investigate or prosecute any alcohol or drug abuse patient.[facility] HospitalIn the event this information is protected by the Federal Confidentiality of Alcohol and Drug Abuse Patient Records regulations: The Federal rules restrict any use of the information to criminally investigate or prosecute any alcohol or drug abuse patient.[facility] HospitalIn the event this information is protected by the Federal Confidentiality of Alcohol and Drug Abuse Patient Records regulations: The Federal rules restrict any use of the information to criminally investigate or prosecute any alcohol or drug abuse patient.[facility] HospitalIn the event this information is protected by the Federal Confidentiality of Alcohol and Drug Abuse Patient Records regulations: The Federal rules restrict any use of the information to criminally investigate or prosecute any alcohol or drug abuse patient.[facility] HospitalIn the event this information is protected by the Federal Confidentiality of Alcohol and Drug Abuse Patient Records regulations: The Federal rules restrict any use of the information to criminally investigate or prosecute any alcohol or drug abuse patient.[facility] HospitalIn the event this information is protected by the Federal Confidentiality of Alcohol and Drug Abuse Patient Records regulations: The Federal rules restrict any use of the information to criminally investigate or prosecute any alcohol or drug abuse patient.[facility] HospitalIn the event this information is protected by the Federal Confidentiality of Alcohol and Drug Abuse Patient Records regulations: The Federal rules restrict any use of the information to criminally investigate or prosecute any alcohol or drug abuse patient.[facility] HospitalIn the event this information is protected by the Federal Confidentiality of Alcohol and Drug Abuse Patient Records regulations: The Federal rules restrict any use of the information to criminally investigate or prosecute any alcohol or drug abuse patient.[facility] HospitalIn the event this information is protected by the Federal Confidentiality of Alcohol and Drug Abuse Patient Records regulations: The Federal rules restrict any use of the information to criminally investigate or prosecute any alcohol or drug abuse patient.[facility] HospitalIn the event this information is protected by the Federal Confidentiality of Alcohol and Drug Abuse Patient Records regulations: The Federal rules restrict any use of the information to criminally investigate or prosecute any alcohol or drug abuse patient.[facility] HospitalIn the event this information is protected by the Federal Confidentiality of Alcohol and Drug Abuse Patient Records regulations: The Federal rules restrict any use of the information to criminally investigate or prosecute any alcohol or drug abuse patient.[facility] HospitalIn the event this information is protected by the Federal Confidentiality of Alcohol and Drug Abuse Patient Records regulations: The Federal rules restrict any use of the information to criminally investigate or prosecute any alcohol or drug abuse patient.[facility] HospitalIn the event this information is protected by the Federal Confidentiality of Alcohol and Drug Abuse Patient Records regulations: The Federal rules restrict any use of the information to criminally investigate or prosecute any alcohol or drug abuse patient.[facility] HospitalIn the event this information is protected by the Federal Confidentiality of Alcohol and Drug Abuse Patient Records regulations: The Federal rules restrict any use of the information to criminally investigate or prosecute any alcohol or drug abuse patient.[facility] HospitalIn the event this information is protected by the Federal Confidentiality of Alcohol and Drug Abuse Patient Records regulations: The Federal rules restrict any use of the information to criminally investigate or prosecute any alcohol or drug abuse patient.[facility] HospitalIn the event this information is protected by the Federal Confidentiality of Alcohol and Drug Abuse Patient Records regulations: The Federal rules restrict any use of the information to criminally investigate or prosecute any alcohol or drug abuse patient.[facility] HospitalIn the event this information is protected by the Federal Confidentiality of Alcohol and Drug Abuse Patient Records regulations: The Federal rules restrict any use of the information to criminally investigate or prosecute any alcohol or drug abuse patient.[facility] HospitalIn the event this information is protected by the Federal Confidentiality of Alcohol and Drug Abuse Patient Records regulations: The Federal rules restrict any use of the information to criminally investigate or prosecute any alcohol or drug abuse patient.[facility] HospitalIn the event this information is protected by the Federal Confidentiality of Alcohol and Drug Abuse Patient Records regulations: The Federal rules restrict any use of the information to criminally investigate or prosecute any alcohol or drug abuse patient.[facility] HospitalIn the event this information is protected by the Federal Confidentiality of Alcohol and Drug Abuse Patient Records regulations: The Federal rules restrict any use of the information to criminally investigate or prosecute any alcohol or drug abuse patient.[facility] HospitalIn the event this information is protected by the Federal Confidentiality of Alcohol and Drug Abuse Patient Records regulations: The Federal rules restrict any use of the information to criminally investigate or prosecute any alcohol or drug abuse patient.[facility] HospitalIn the event this information is protected by the Federal Confidentiality of Alcohol and Drug Abuse Patient Records regulations: The Federal rules restrict any use of the information to criminally investigate or prosecute any alcohol or drug abuse patient.[facility] HospitalIn the event this information is protected by the Federal Confidentiality of Alcohol and Drug Abuse Patient Records regulations: The Federal rules restrict any use of the information to criminally investigate or prosecute any alcohol or drug abuse patient.[facility] HospitalIn the event this information is protected by the Federal Confidentiality of Alcohol and Drug Abuse Patient Records regulations: The Federal rules restrict any use of the information to criminally investigate or prosecute any alcohol or drug abuse patient.[facility] HospitalIn the event this information is protected by the Federal Confidentiality of Alcohol and Drug Abuse Patient Records regulations: The Federal rules restrict any use of the information to criminally investigate or prosecute any alcohol or drug abuse patient.[facility] HospitalIn the event this information is protected by the Federal Confidentiality of Alcohol and Drug Abuse Patient Records regulations: The Federal rules restrict any use of the information to criminally investigate or prosecute any alcohol or drug abuse patient.[facility] HospitalIn the event this information is protected by the Federal Confidentiality of Alcohol and Drug Abuse Patient Records regulations: The Federal rules restrict any use of the information to criminally investigate or prosecute any alcohol or drug abuse patient.[facility] HospitalIn the event this information is protected by the Federal Confidentiality of Alcohol and Drug Abuse Patient Records regulations: The Federal rules restrict any use of the information to criminally investigate or prosecute any alcohol or drug abuse patient.[facility] HospitalIn the event this information is protected by the Federal Confidentiality of Alcohol and Drug Abuse Patient Records regulations: The Federal rules restrict any use of the information to criminally investigate or prosecute any alcohol or drug abuse patient.[facility] HospitalIn the event this information is protected by the Federal Confidentiality of Alcohol and Drug Abuse Patient Records regulations: The Federal rules restrict any use of the information to criminally investigate or prosecute any alcohol or drug abuse patient.[facility] HospitalIn the event this information is protected by the Federal Confidentiality of Alcohol and Drug Abuse Patient Records regulations: The Federal rules restrict any use of the information to criminally investigate or prosecute any alcohol or drug abuse patient.[facility] HospitalIn the event this information is protected by the Federal Confidentiality of Alcohol and Drug Abuse Patient Records regulations: The Federal rules restrict any use of the information to criminally investigate or prosecute any alcohol or drug abuse patient.[facility] HospitalIn the event this information is protected by the Federal Confidentiality of Alcohol and Drug Abuse Patient Records regulations: The Federal rules restrict any use of the information to criminally investigate or prosecute any alcohol or drug abuse patient.[facility] HospitalIn the event this information is protected by the Federal Confidentiality of Alcohol and Drug Abuse Patient Records regulations: The Federal rules restrict any use of the information to criminally investigate or prosecute any alcohol or drug abuse patient.[facility] HospitalIn the event this information is protected by the Federal Confidentiality of Alcohol and Drug Abuse Patient Records regulations: The Federal rules restrict any use of the information to criminally investigate or prosecute any alcohol or drug abuse patient.[facility] HospitalIn the event this information is protected by the Federal Confidentiality of Alcohol and Drug Abuse Patient Records regulations: The Federal rules restrict any use of the information to criminally investigate or prosecute any alcohol or drug abuse patient.[facility] HospitalIn the event this information is protected by the Federal Confidentiality of Alcohol and Drug Abuse Patient Records regulations: The Federal rules restrict any use of the information to criminally investigate or prosecute any alcohol or drug abuse patient.[facility] HospitalIn the event this information is protected by the Federal Confidentiality of Alcohol and Drug Abuse Patient Records regulations: The Federal rules restrict any use of the information to criminally investigate or prosecute any alcohol or drug abuse patient.[facility] HospitalIn the event this information is protected by the Federal Confidentiality of Alcohol and Drug Abuse Patient Records regulations: The Federal rules restrict any use of the information to criminally investigate or prosecute any alcohol or drug abuse patient.[facility] HospitalIn the event this information is protected by the Federal Confidentiality of Alcohol and Drug Abuse Patient Records regulations: The Federal rules restrict any use of the information to criminally investigate or prosecute any alcohol or drug abuse patient.[facility] HospitalIn the event this information is protected by the Federal Confidentiality of Alcohol and Drug Abuse Patient Records regulations: The Federal rules restrict any use of the information to criminally investigate or prosecute any alcohol or drug abuse patient.[facility] HospitalIn the event this information is protected by the Federal Confidentiality of Alcohol and Drug Abuse Patient Records regulations: The Federal rules restrict any use of the information to criminally investigate or prosecute any alcohol or drug abuse patient.[facility] HospitalIn the event this information is protected by the Federal Confidentiality of Alcohol and Drug Abuse Patient Records regulations: The Federal rules restrict any use of the information to criminally investigate or prosecute any alcohol or drug abuse patient.[facility] HospitalIn the event this information is protected by the Federal Confidentiality of Alcohol and Drug Abuse Patient Records regulations: The Federal rules restrict any use of the information to criminally investigate or prosecute any alcohol or drug abuse patient.[facility] HospitalIn the event this information is protected by the Federal Confidentiality of Alcohol and Drug Abuse Patient Records regulations: The Federal rules restrict any use of the information to criminally investigate or prosecute any alcohol or drug abuse patient.[facility] HospitalIn the event this information is protected by the Federal Confidentiality of Alcohol and Drug Abuse Patient Records regulations: The Federal rules restrict any use of the information to criminally investigate or prosecute any alcohol or drug abuse patient.[facility] HospitalIn the event this information is protected by the Federal Confidentiality of Alcohol and Drug Abuse Patient Records regulations: The Federal rules restrict any use of the information to criminally investigate or prosecute any alcohol or drug abuse patient.[facility] HospitalIn the event this information is protected by the Federal Confidentiality of Alcohol and Drug Abuse Patient Records regulations: The Federal rules restrict any use of the information to criminally investigate or prosecute any alcohol or drug abuse patient.[facility] HospitalIn the event this information is protected by the Federal Confidentiality of Alcohol and Drug Abuse Patient Records regulations: The Federal rules restrict any use of the information to criminally investigate or prosecute any alcohol or drug abuse patient.[facility] HospitalIn the event this information is protected by the Federal Confidentiality of Alcohol and Drug Abuse Patient Records regulations: The Federal rules restrict any use of the information to criminally investigate or prosecute any alcohol or drug abuse patient.[facility] HospitalIn the event this information is protected by the Federal Confidentiality of Alcohol and Drug Abuse Patient Records regulations: The Federal rules restrict any use of the information to criminally investigate or prosecute any alcohol or drug abuse patient.[facility] HospitalIn the event this information is protected by the Federal Confidentiality of Alcohol and Drug Abuse Patient Records regulations: The Federal rules restrict any use of the information to criminally investigate or prosecute any alcohol or drug abuse patient.[facility] HospitalIn the event this information is protected by the Federal Confidentiality of Alcohol and Drug Abuse Patient Records regulations: The Federal rules restrict any use of the information to criminally investigate or prosecute any alcohol or drug abuse patient.[facility] HospitalIn the event this information is protected by the Federal Confidentiality of Alcohol and Drug Abuse Patient Records regulations: The Federal rules restrict any use of the information to criminally investigate or prosecute any alcohol or drug abuse patient.[facility] HospitalIn the event this information is protected by the Federal Confidentiality of Alcohol and Drug Abuse Patient Records regulations: The Federal rules restrict any use of the information to criminally investigate or prosecute any alcohol or drug abuse patient.[facility] HospitalIn the event this information is protected by the Federal Confidentiality of Alcohol and Drug Abuse Patient Records regulations: The Federal rules restrict any use of the information to criminally investigate or prosecute any alcohol or drug abuse patient.[facility] HospitalIn the event this information is protected by the Federal Confidentiality of Alcohol and Drug Abuse Patient Records regulations: The Federal rules restrict any use of the information to criminally investigate or prosecute any alcohol or drug abuse patient.[facility] HospitalIn the event this information is protected by the Federal Confidentiality of Alcohol and Drug Abuse Patient Records regulations: The Federal rules restrict any use of the information to criminally investigate or prosecute any alcohol or drug abuse patient.[facility] HospitalIn the event this information is protected by the Federal Confidentiality of Alcohol and Drug Abuse Patient Records regulations: The Federal rules restrict any use of the information to criminally investigate or prosecute any alcohol or drug abuse patient.[facility] HospitalIn the event this information is protected by the Federal Confidentiality of Alcohol and Drug Abuse Patient Records regulations: The Federal rules restrict any use of the information to criminally investigate or prosecute any alcohol or drug abuse patient.[facility] HospitalIn the event this information is protected by the Federal Confidentiality of Alcohol and Drug Abuse Patient Records regulations: The Federal rules restrict any use of the information to criminally investigate or prosecute any alcohol or drug abuse patient.[facility] HospitalIn the event this information is protected by the Federal Confidentiality of Alcohol and Drug Abuse Patient Records regulations: The Federal rules restrict any use of the information to criminally investigate or prosecute any alcohol or drug abuse patient.[facility] HospitalIn the event this information is protected by the Federal Confidentiality of Alcohol and Drug Abuse Patient Records regulations: The Federal rules restrict any use of the information to criminally investigate or prosecute any alcohol or drug abuse patient.[facility] HospitalIn the event this information is protected by the Federal Confidentiality of Alcohol and Drug Abuse Patient Records regulations: The Federal rules restrict any use of the information to criminally investigate or prosecute any alcohol or drug abuse patient.[facility] HospitalIn the event this information is protected by the Federal Confidentiality of Alcohol and Drug Abuse Patient Records regulations: The Federal rules restrict any use of the information to criminally investigate or prosecute any alcohol or drug abuse patient.[facility] HospitalIn the event this information is protected by the Federal Confidentiality of Alcohol and Drug Abuse Patient Records regulations: The Federal rules restrict any use of the information to criminally investigate or prosecute any alcohol or drug abuse patient.[facility] HospitalIn the event this information is protected by the Federal Confidentiality of Alcohol and Drug Abuse Patient Records regulations: The Federal rules restrict any use of the information to criminally investigate or prosecute any alcohol or drug abuse patient.[facility] HospitalIn the event this information is protected by the Federal Confidentiality of Alcohol and Drug Abuse Patient Records regulations: The Federal rules restrict any use of the information to criminally investigate or prosecute any alcohol or drug abuse patient.[facility] HospitalIn the event this information is protected by the Federal Confidentiality of Alcohol and Drug Abuse Patient Records regulations: The Federal rules restrict any use of the information to criminally investigate or prosecute any alcohol or drug abuse patient.[facility] HospitalIn the event this information is protected by the Federal Confidentiality of Alcohol and Drug Abuse Patient Records regulations: The Federal rules restrict any use of the information to criminally investigate or prosecute any alcohol or drug abuse patient.[facility] HospitalIn the event this information is protected by the Federal Confidentiality of Alcohol and Drug Abuse Patient Records regulations: The Federal rules restrict any use of the information to criminally investigate or prosecute any alcohol or drug abuse patient.[facility] HospitalIn the event this information is protected by the Federal Confidentiality of Alcohol and Drug Abuse Patient Records regulations: The Federal rules restrict any use of the information to criminally investigate or prosecute any alcohol or drug abuse patient.[facility] HospitalIn the event this information is protected by the Federal Confidentiality of Alcohol and Drug Abuse Patient Records regulations: The Federal rules restrict any use of the information to criminally investigate or prosecute any alcohol or drug abuse patient.[facility] HospitalIn the event this information is protected by the Federal Confidentiality of Alcohol and Drug Abuse Patient Records regulations: The Federal rules restrict any use of the information to criminally investigate or prosecute any alcohol or drug abuse patient.[facility] HospitalIn the event this information is protected by the Federal Confidentiality of Alcohol and Drug Abuse Patient Records regulations: The Federal rules restrict any use of the information to criminally investigate or prosecute any alcohol or drug abuse patient.[facility] HospitalIn the event this information is protected by the Federal Confidentiality of Alcohol and Drug Abuse Patient Records regulations: The Federal rules restrict any use of the information to criminally investigate or prosecute any alcohol or drug abuse patient.[facility] HospitalIn the event this information is protected by the Federal Confidentiality of Alcohol and Drug Abuse Patient Records regulations: The Federal rules restrict any use of the information to criminally investigate or prosecute any alcohol or drug abuse patient.[facility] HospitalIn the event this information is protected by the Federal Confidentiality of Alcohol and Drug Abuse Patient Records regulations: The Federal rules restrict any use of the information to criminally investigate or prosecute any alcohol or drug abuse patient.[facility] HospitalIn the event this information is protected by the Federal Confidentiality of Alcohol and Drug Abuse Patient Records regulations: The Federal rules restrict any use of the information to criminally investigate or prosecute any alcohol or drug abuse patient.[facility] HospitalIn the event this information is protected by the Federal Confidentiality of Alcohol and Drug Abuse Patient Records regulations: The Federal rules restrict any use of the information to criminally investigate or prosecute any alcohol or drug abuse patient.[facility] HospitalIn the event this information is protected by the Federal Confidentiality of Alcohol and Drug Abuse Patient Records regulations: The Federal rules restrict any use of the information to criminally investigate or prosecute any alcohol or drug abuse patient.[facility] HospitalIn the event this information is protected by the Federal Confidentiality of Alcohol and Drug Abuse Patient Records regulations: The Federal rules restrict any use of the information to criminally investigate or prosecute any alcohol or drug abuse patient.[facility] HospitalIn the event this information is protected by the Federal Confidentiality of Alcohol and Drug Abuse Patient Records regulations: The Federal rules restrict any use of the information to criminally investigate or prosecute any alcohol or drug abuse patient.[facility] HospitalIn the event this information is protected by the Federal Confidentiality of Alcohol and Drug Abuse Patient Records regulations: The Federal rules restrict any use of the information to criminally investigate or prosecute any alcohol or drug abuse patient.[facility] HospitalIn the event this information is protected by the Federal Confidentiality of Alcohol and Drug Abuse Patient Records regulations: The Federal rules restrict any use of the information to criminally investigate or prosecute any alcohol or drug abuse patient.[facility] HospitalIn the event this information is protected by the Federal Confidentiality of Alcohol and Drug Abuse Patient Records regulations: The Federal rules restrict any use of the information to criminally investigate or prosecute any alcohol or drug abuse patient.[facility] HospitalIn the event this information is protected by the Federal Confidentiality of Alcohol and Drug Abuse Patient Records regulations: The Federal rules restrict any use of the information to criminally investigate or prosecute any alcohol or drug abuse patient.[facility] HospitalIn the event this information is protected by the Federal Confidentiality of Alcohol and Drug Abuse Patient Records regulations: The Federal rules restrict any use of the information to criminally investigate or prosecute any alcohol or drug abuse patient.[facility] HospitalIn the event this information is protected by the Federal Confidentiality of Alcohol and Drug Abuse Patient Records regulations: The Federal rules restrict any use of the information to criminally investigate or prosecute any alcohol or drug abuse patient.[facility] HospitalIn the event this information is protected by the Federal Confidentiality of Alcohol and Drug Abuse Patient Records regulations: The Federal rules restrict any use of the information to criminally investigate or prosecute any alcohol or drug abuse patient.[facility] HospitalIn the event this information is protected by the Federal Confidentiality of Alcohol and Drug Abuse Patient Records regulations: The Federal rules restrict any use of the information to criminally investigate or prosecute any alcohol or drug abuse patient.[facility] HospitalIn the event this information is protected by the Federal Confidentiality of Alcohol and Drug Abuse Patient Records regulations: The Federal rules restrict any use of the information to criminally investigate or prosecute any alcohol or drug abuse patient.[facility] HospitalIn the event this information is protected by the Federal Confidentiality of Alcohol and Drug Abuse Patient Records regulations: The Federal rules restrict any use of the information to criminally investigate or prosecute any alcohol or drug abuse patient.[facility] HospitalIn the event this information is protected by the Federal Confidentiality of Alcohol and Drug Abuse Patient Records regulations: The Federal rules restrict any use of the information to criminally investigate or prosecute any alcohol or drug abuse patient.[facility] HospitalIn the event this information is protected by the Federal Confidentiality of Alcohol and Drug Abuse Patient Records regulations: The Federal rules restrict any use of the information to criminally investigate or prosecute any alcohol or drug abuse patient.[facility] HospitalIn the event this information is protected by the Federal Confidentiality of Alcohol and Drug Abuse Patient Records regulations: The Federal rules restrict any use of the information to criminally investigate or prosecute any alcohol or drug abuse patient.[facility] HospitalIn the event this information is protected by the Federal Confidentiality of Alcohol and Drug Abuse Patient Records regulations: The Federal rules restrict any use of the information to criminally investigate or prosecute any alcohol or drug abuse patient.[facility] HospitalIn the event this information is protected by the Federal Confidentiality of Alcohol and Drug Abuse Patient Records regulations: The Federal rules restrict any use of the information to criminally investigate or prosecute any alcohol or drug abuse patient.[facility] HospitalIn the event this information is protected by the Federal Confidentiality of Alcohol and Drug Abuse Patient Records regulations: The Federal rules restrict any use of the information to criminally investigate or prosecute any alcohol or drug abuse patient.[facility] HospitalIn the event this information is protected by the Federal Confidentiality of Alcohol and Drug Abuse Patient Records regulations: The Federal rules restrict any use of the information to criminally investigate or prosecute any alcohol or drug abuse patient.[facility] HospitalIn the event this information is protected by the Federal Confidentiality of Alcohol and Drug Abuse Patient Records regulations: The Federal rules restrict any use of the information to criminally investigate or prosecute any alcohol or drug abuse patient.[facility] HospitalIn the event this information is protected by the Federal Confidentiality of Alcohol and Drug Abuse Patient Records regulations: The Federal rules restrict any use of the information to criminally investigate or prosecute any alcohol or drug abuse patient.[facility] HospitalIn the event this information is protected by the Federal Confidentiality of Alcohol and Drug Abuse Patient Records regulations: The Federal rules restrict any use of the information to criminally investigate or prosecute any alcohol or drug abuse patient.[facility] HospitalIn the event this information is protected by the Federal Confidentiality of Alcohol and Drug Abuse Patient Records regulations: The Federal rules restrict any use of the information to criminally investigate or prosecute any alcohol or drug abuse patient.[facility] Care Teams (unrecognized sec tion and content) Client Partner Relationship Specialty Start Date End Date Prudencio Pedro MD [address] [place], [place] [id number] PCP - General Family Practice 05/10/19 Client Partner Relationship Specialty Start Date End Date Prudencio Pedro MD [address] [place] [address] PCP - General Family Practice 05/10/19 Client Partner Relationship Specialty Start Date End Date Prudencio Pedro MD [address] [place] [address] PCP - General Family Practice 05/10/19 Client Partner Relationship Specialty Start Date End Date Prudencio Pedro MD [address] [place] [address] PCP - General Family Practice 05/10/19 Client Partner Relationship Specialty Start Date End Date Prudencio Pedro MD [address] [facility] [place] [address] PCP - General Family Practice 05/10/19 Client Partner Relationship Specialty Start Date End Date Prudencio Pedro MD [address] [facility] [place] [address] PCP - General Family Medicine 05/10/19 Client Partner Relationship Specialty Start Date End Date Prudencio Pedro MD [address] [facility] [place] [address] PCP - General Family Medicine 05/10/19 Client Partner Relationship Specialty Start Date End Date Prudencio Pedro MD [address] [facility] [place] [address] PCP - General Family Medicine 05/10/19 Client Partner Relationship Specialty Start Date End Date Prudencio Pedro MD [address] [facility] [place] [address] PCP - General Family Medicine 05/10/19 Client Partner Relationship Specialty Start Date End Date Prudencio Pedro MD [address] [facility] [place] [address] PCP - General Family Medicine 05/10/19 Client Partner Relationship Specialty Start Date End Date Prudencio Pedro MD [address] [facility] [place] [address] PCP - General Family Medicine 05/10/19 Client Partner Relationship Specialty Start Date End Date Prudencio Pedro MD [address] [facility] [place] [address] PCP - General Family Medicine 05/10/19 Client Partner Relationship Specialty Start Date End Date Prudencio Pedro MD [address] [facility] [place] [address] PCP - General Family Medicine 05/10/19 Client Partner Relationship Specialty Start Date End Date Prudencio Pedro MD [address] [facility] [place] [address] PCP - General Family Medicine 05/10/19 Client Partner Relationship Specialty Start Date End Date Prudencio Pedro MD [address] [facility] [place] [address] PCP - General Family Medicine 05/10/19 Client Partner Relationship Specialty Start Date End Date Prudencio Pedro MD [address] [facility] [place] [address] PCP - General Family Medicine 05/10/19 Client Partner Relationship Specialty Start Date End Date Prudencio Pedro MD [address] [facility] [place] [address] PCP - General Family Medicine 05/10/19 Client Partner Relationship Specialty Start Date End Date Prudencio Pedro MD [address] [facility] [place] [address] PCP - General Family Medicine 05/10/19 Client Partner Relationship Specialty Start Date End Date Prudencio Pedro MD [address] [facility] [place] [address] PCP - General Family Medicine 05/10/19 Client Partner Relationship Specialty Start Date End Date Prudencio Pedro MD [address] [facility] [place] [address] PCP - General Family Medicine 05/10/19 Client Partner Relationship Specialty Start Date End Date Prudencio Pedro MD [address] [facility] [place] [address] PCP - General Family Medicine 05/10/19 Client Partner Relationship Specialty Start Date End Date Prudencio Pedro MD [address] [facility] [place] [address] PCP - General Family Medicine 05/10/19 Client Partner Relationship Specialty Start Date End Date Prudencio Pedro MD [address] [place] [address] PCP - General Family Medicine 05/10/19 Team Status: Active Member Role Status Dates Diamond Bright STOCK ANALYST, STOCK ANALYST-C Family Provider Active Dr. Segundo Pedro MD Primary Care Provider Acti ve Team Status: Inactive Member Role Status Dates Dr. Segundo Pedro MD Primary Care Provider Acti ve Namrata Vazquez STOCK ANALYST, STOCK ANALYST-C Attending Provider, Referring Provider Active Team Status: Active Member Role Status Dates Dr. Segundo Pedro MD Primary Care Provider Acti ve Dr. Epi Mcdonald MD Attending Provider, Referrin g Provider Active Team Status: Inactive Member Role Status Dates Dr. Segundo Pedro MD Primary Care Provider Acti ve Dr. Epi Mcdonald MD Attending Provider, Referrin g Provider Active Client Partner Relationship Specialty Start Date End Date Prudencio Pedro MD [address] [place] [address] PCP - General Family Medicine 05/10/19 Client Partner Relationship Specialty Start Date End Date Prudencio Pedro MD [address] [place] [address] PCP - General Family Medicine 05/10/19 Client Partner Relationship Specialty Start Date End Date Prudencio Pedro MD [address] [place] [address] PCP - General Family Medicine 05/10/19 Client Partner Relationship Specialty Start Date End Date Prudencio Pedro MD [address] [place] [address] PCP - General Family Medicine 05/10/19 Client Partner Relationship Specialty Start Date End Date Prudencio Pedro MD [address] [facility] [place] [address] PCP - General Family Medicine 05/10/19 Client Partner Relationship Specialty Start Date End Date Prudencio Pedro MD [address] [facility] [place] [address] PCP - General Family Medicine 05/10/19 Client Partner Relationship Specialty Start Date End Date Prudencio Pedro MD [address] [facility] [place] [address] PCP - General Family Medicine 05/10/19 Client Partner Relationship Specialty Start Date End Date Prudencio Pedro MD [address] [facility] [place] [address] PCP - General Family Medicine 05/10/19 Client Partner Relationship Specialty Start Date End Date Prudencio Pedro MD [address] [facility] [place] [address] PCP - General Family Medicine 05/10/19 Client Partner Relationship Specialty Start Date End Date Prudencio Pedro MD [address] [place] [address] PCP - General Family Medicine 05/10/19 Client Partner Relationship Specialty Start Date End Date Prudencio Pedro MD [address] [facility] [place] [address] PCP - General Family Medicine 05/10/19 Client Partner Relationship Specialty Start Date End Date Prudencio Pedro MD [address] [facility] [place] [address] PCP - General Family Medicine 05/10/19 Client Partner Relationship Specialty Start Date End Date Prudencio Pedro MD [address] [place] [address] PCP - General Family Medicine 05/10/19 Client Partner Relationship Specialty Start Date End Date Prudencio Pedro MD [address] [facility] [place] [address] PCP - General Family Medicine 05/10/19 Client Partner Relationship Specialty Start Date End Date Prudencio Pedro MD [address] [facility] [place] [address] PCP - General Family Medicine 05/10/19 Client Partner Relationship Specialty Start Date End Date Prudencio Pedro MD [address] [facility] [place] [address] PCP - General Family Medicine 05/10/19 Client Partner Relationship Specialty Start Date End Date Prudencio Pedro MD [address] [facility] [place] [address] PCP - General Family Medicine 05/10/19 Client Partner Relationship Specialty Start Date End Date Prudencio Pedro MD [address] [facility] [place] [address] PCP - General Family Medicine 05/10/19 Client Partner Relationship Specialty Start Date End Date Prudencio Pedro MD [address] [facility] [place] [address] PCP - General Family Medicine 05/10/19 Client Partner Relationship Specialty Start Date End Date Prudencio Pedro MD [address] [facility] [place] [address] PCP - General Family Medicine 05/10/19 Client Partner Relationship Specialty Start Date End Date Prudencio Pedro MD [address] [place] [address] PCP - General Family Medicine 05/10/19 Client Partner Relationship Specialty Start Date End Date Prudencio Pedro MD [address] [place] [address] PCP - General Family Medicine 05/10/19 Client Partner Relationship Specialty Start Date End Date Prudencio Pedro MD [address] [place] [address] PCP - General Family Medicine 05/10/19 Client Partner Relationship Specialty Start Date End Date Prudencio Pedro MD [address] [place] [address] PCP - General Family Medicine 05/10/19 Client Partner Relationship Specialty Start Date End Date Prduencio Pedro MD [address] [place] [address] PCP - General Family Medicine 05/10/19 Client Partner Relationship Specialty Start Date End Date Prudencio Pedro MD [address] [place] [address] PCP - General Family Medicine 05/10/19 Client Partner Relationship Specialty Start Date End Date Prudencio Pedro MD [address] [place] [address] PCP - General Family Medicine 05/10/19 Team Status: Inactive Member Role Status Dates Dr. Epi Mcdonald MD Attending Provider, [facility] Provider Active Dr. Segundo Pedro MD Primary Care Provider Acti ve Team Status: Inactive Member Role Status Dates Dr. Segundo WILSON MD Referring Provider Acti ve Namrata Vazquez STOCK ANALYST, STOCK ANALYST-C Attending Provider Active Dr. Segundo Pedro MD Primary Care Provider Acti ve Team Status: Inactive Member Role Status Dates Namrata Vazquez STOCK ANALYST, STOCK ANALYST-C Attending Provider, Referring Provider Active Dr. Segundo Pedro MD Primary Care Provider Acti ve Client Partner Relationship Specialty Start Date End Date Prudencio Pedro MD [address] [facility] [place] [address] PCP - General Family Medicine 05/10/19 Client Partner Relationship Specialty Start Date End Date Prudencio Pedro MD [address] [place] [address] PCP - General Family Medicine 05/10/19 Client Partner Relationship Specialty Start Date End Date Prudencio Pedro MD [address] [place] [address] PCP - General Family Medicine 05/10/19 Client Partner Relationship Specialty Start Date End Date Prudencio Pedro MD [address] [facility] [place] [address] PCP - General Family Medicine 05/10/19 Client Partner Relationship Specialty Start Date End Date Prudencio Pedro MD [address] [facility] [place] [address] PCP - General Family Medicine 05/10/19 Client Partner Relationship Specialty Start Date End Date Prudencio Pedro MD [address] [place] [address] PCP - General Family Medicine 05/10/19 Client Partner Relationship Specialty Start Date End Date Prudencio Pedro MD [address] [facility] [place] [address] PCP - General Family Medicine 05/10/19 Client Partner Relationship Specialty Start Date End Date Prudencio Pedro MD [address] [facility] [place] [address] PCP - General Family Medicine 05/10/19 Client Partner Relationship Specialty Start Date End Date Prudencio Pedro MD [address] [facility] [place] [address] PCP - General Family Medicine 05/10/19 Client Partner Relationship Specialty Start Date End Date Prudencio Pedro MD [address] [facility] [place] [address] PCP - General Family Medicine 05/10/19 Client Partner Relationship Specialty Start Date End Date Prudencio Pedro MD [address] [facility] [place] [address] PCP - General Family Medicine 05/10/19 Client Partner Relationship Specialty Start Date End Date Prudencio Pedro MD [address] [facility] [place] [address] PCP - General Family Medicine 05/10/19 Client Partner Relationship Specialty Start Date End Date Prudencio Pedro MD [address] [facility] [place] [address] PCP - General Family Medicine 05/10/19 03/02/24 Client Partner Relationship Specialty Start Date End Date Prudencio Pedro MD [address] [facility] [place] [address] PCP - General Family Medicine 05/10/19 03/02/24 Client Partner Relationship Specialty Start Date End Date Prudencio Pedro MD [address] [facility] [place] [address] PCP - General Family Medicine 05/10/19 03/02/24 Client Partner Relationship Specialty Start Date End Date Prudencio Pedro MD [address] [facility] [place] [address] PCP - General Family Medicine 05/10/19 03/02/24 Client Partner Relationship Specialty Start Date End Date Prudencio Pedro MD [address] [facility] [place] [address] PCP - General Family Medicine 05/10/19 03/02/24 Client Partner Relationship Specialty Start Date End Date Prudencio Pedro MD [address] [facility] [place] [address] PCP - General Family Medicine 05/10/19 03/02/24 Client Partner Relationship Specialty Start Date End Date Prudencio Pedro MD [address] [facility] [place] [address] PCP - General Family Medicine 05/10/19 03/02/24 Client Partner Relationship Specialty Start Date End Date Fina Iraheta MD [address] [facility] [address] [place] [phone] PCP - General Internal Medicine 06/03/24 Client Partner Relationship Specialty Start Date End Date Fina Iraheta MD [address] [facility] [address] [place] [address] PCP - General Internal Medicine 06/03/24 Client Partner Relationship Specialty Start Date End Date Fina Iraheta MD [address] [place] [address] PCP - General Internal Medicine 06/03/24 Client Partner Relationship Specialty Start Date End Date Fina Iraheta MD [address] [place] [address] PCP - General Internal Medicine 06/03/24 Client Partner Relationship Specialty Start Date End Date Fina Iraheta MD [address] [place] [address] PCP - General Internal Medicine 06/03/24 Client Partner Relationship Specialty Start Date End Date Fina Iraheta MD [address] [place] [address] PCP - General Internal Medicine 06/03/24 Client Partner Relationship Specialty Start Date End Date Fina Iraheta MD [address] [place] [address] PCP - General Internal Medicine 06/03/24 Client Partner Relationship Specialty Start Date End Date Fina Iraheta MD [address] [place] [address] PCP - General Internal Medicine 06/03/24 Client Partner Relationship Specialty Start Date End Date Fina Iraheta MD [address] [place] [phone] PCP - General Internal Medicine 06/03/24 Client Partner Relationship Specialty Start Date End Date Fina Iraheta MD [address] [place] [address] PCP - General Internal Medicine 06/03/24 Client Partner Relationship Specialty Start Date End Date Fina Iraheta MD [address] [place] [address] PCP - General Internal Medicine 06/03/24 Team [...] 2024 End: September 11, 2024 Namrata Vazquez STOCK ANALYST, STOCK ANALYST-C Attending Provider Active Start: September 11, 2024 End: September 11, 2024 Team Status: Inactive Member Role Status Dates Dr. Fina Iraheta MD Primary Care Provider Active Start: September 11, 2024 End: September 11, 2024 Namrata Vazquez STOCK ANALYST, STOCK ANALYST-C Attending Provider Active Start: September 11, 2024 End: September 11, 2024 Namrata Vazquez STOCK ANALYST, STOCK ANALYST-C Referring Provider Active Start: September 11, 2024 [...] October 04, 2024 End: October 04, 2024 KRERI Saravia Attending Provider Active St art: October [...] October 04, 2024 End: October 04, 2024 Client Partner Relationship Specialty Start Date End Date Fina Iraheta MD [address] [facility] [address] [place] [phone] PCP - General Internal Medicine 06/03/24 Team [...] November 28, 2024 End: November 28, 2024 Client Partner Relationship Specialty Start Date End Date Fina Iraheta MD [address] [place] [phone]- PCP - General Internal Medicine 06/03/24 Client Partner Relationship Specialty Start Date End Date Fina Iraheta MD [address] [place] [address] PCP - General Internal Medicine 06/03/24 Client Partner Relationship Specialty Start Date End Date Fina Iraheta MD [address] [place] [address] PCP - General Internal Medicine 06/03/24 Team [...] 07, 2025 End: February 07, 2025 Dr. Fnia Iraheta MD Referring Provider Active Start: February [...] March 08, 2025 End: March 08, 2025 Client Partner Relationship Specialty Start Date End Date Fina Iraheta MD Lg Hernández [facility] [address] [place] [phone] PCP - General Internal Medicine 06/03/24 Team [...] March 15, 2025 End: March 15, 2025 Client Partner Relationship Specialty Start Date End Date Fina Iraheta MD [address] [facility] [address] [place] [phone] PCP - General Internal Medicine 06/03/24 Team [...] 2025 End: April 18, 2025 Gem Graves STOCK ANALYST-C Attending physician Active Start: April 18, 2025 End: April 18, 2025 Gemginette Graves , STOCK ANALYST-C Referring Provider Active Start: April 18, 2025 [...] 2025 End: May 13, 2025 Gem Graves STOCK ANALYST-C Attending physician Active Start: May 13, 2025 End: May 13, 2025 Team Status: Active Member Role/Relationship Status Dates Dr. Fina Iraheta MD Primary care physician Activ e Start: May 13, 2025 Gem Graves STOCK ANALYST-C Attending physician Active Start: May 13, 2025 Gem Ungerer , STOCK ANALYST-C Referring Provider Active Start: May 13, 2025 [...] RSPSE SPMTRY PRE&POST-BRNCDILAT ADMN Prudencio Pedro MD [facility] [place] [address] [facility] [place] [address] [place] [id number] Referral ID Status Reason Start Date Expiration Date V isits Requested Visits Authorized [id number] Closed Auto-Generate d Referral 02/18/2022 03/20/2023 1 [...] TIME WITH IMAGE LIMITED Prudencio Pedro MD [address] [place] [address] [facility] [address] [place] [address] Referral ID Status Reason Start Date Expiration Date V isits Requested Visits Authorized [id number] Closed Auto-Generate d Referral 09/15/2022 10/15/2023 1 1 Specialty Diagnoses / Procedures Referred By Contac t Referred To Contact [facility] Diagnoses Abnormal mammogram Procedures US BREAST LTD RIGHT US BREAST UNI REAL TIME WITH IMAGE LIMITED Prudencio Pedro MD [address] [place] [address] [facility] [address] [place] [phone] Referral ID Status Reason Start Date Expiration Date V isits Requested Visits Authorized [id number] Closed Auto-Generate d Referral 04/20/2023 11/18/2023 1 1 Reason Comments New Fracture Specialty Diagnoses / Procedures Referred By Contac t Referred To Contact Orthopedics Diagnoses Closed fracture of left wrist, initial encounter Procedures CONSULT TO ORTHOPAEDICS OFFICE/OUTPATIENT [facility] 60-74 MINUTES Aliyah Araujo APRN.TRANSPORTATION ENGINEERING TECHNICIAN [address] [place] [address] Bruce Wilson MD [address] [place] [address] Referral ID Status Reason Start Date Expiration Date V isits Requested Visits Authorized [id number] Closed PCP Requested Referral 04/18/2023 04/17/2024 1 [...] David Brown MD [address] [place] [address] [facility] [address] [place] [address] Referral ID Status Reason Start Date Expiration Date V isits Requested Visits Authorized [id number] Closed Auto-Generate d Referral 03/14/2023 04/12/2024 1 [...] has NOT seen wound care Reason Comments [facility] requesting records Reason Onset Date Comments Refill Request 02/13/2024 Reason Comments Medication Request Reason Comments [facility] paperwork Reason Comments Paperwork Question Reason Comments Hospital F/U Discharged 02/21/24 from [facility] Reason Comments Burn Reason Comments Patient Update [...] L hand cut x4 days 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 [facility]. provides no warranty or guarantee of the accuracy or completeness of information in this document.
[2025-07-17 05:35] LABS: Mucous, Urine 0 SEEN /hpf (<or=2+); Red Blood Cells-Urine 0 SEEN /hpf (0-5)
[2025-07-17 05:38] VITALS: PULSE 67; RESP 12
[2025-07-17 05:38] LABS: Hematocrit 40.9 % (37-47); Hemoglobin 13.9 g/dL (12.0-15.0); Immature Granulocytes Count 0.050 X10^3/uL (0.0-0.0); Mean Corp Hgb Conc 34.0 g/dL (32-36); Mean Corpuscular Volume 99.8 fL (81-99); Mean Platelet Vol. 10.5 fl (6.2-12.0); NRBC Flagged by Analyzer 0 % (0-5); Platelet Count 253 K/mm3 (150-450); RBC Distribution Width CV 13.2 % (11.6-14.6); RBC Distribution Width SD 48.4 fl (35.1-43.9); Red Blood Count 4.10 M/mm3 (4.2-5.4); White Blood Count 8.9 K/mm3 (4.4-11.0)
[2025-07-17 05:40] LABS: Color, Urine Straw (Yellow); Glucose, Dipstick Normal (Normal); Ketone-Dipstick Negative (Negative); Leukocyte Esterase-Dipstick Negative /ul (Negative); Nitrite-Dipstick Negative (Negative); Occult Blood-Urine Negative /ul (Negative); Protein-Dipstick Negative (Negative); Specific Gravity, Urine 1.010 (1.002-1.030); Urine Bilirubin Dipstick Negative (Negative)
--- NOTE | 2025-07-17 05:50 | RAD_ITS ---
PROCEDURE: CHEST PA AND LATERAL 07/17/2025 REASON FOR EXAM: SOB TECHNIQUE: Procedure Code: RADCXR Modality: DX Procedure: CHEST PA AND LATERAL COMPARISON: 11/26/2024. FINDINGS: The lungs are emphysematous. There is no demonstrated acute parenchymal abnormality. There is no demonstrated pleural abnormality. Normal heart and pericardium. Normal mediastinum and vianey. Normal visualized pulmonary arteries. Normal visualized aortic arch and descending thoracic aorta. Normal visualized thoracic spine. Normal visualized ribs, clavicles, and shoulders. There is no demonstrated abnormality of the visualized soft tissue structures of the upper abdomen. RAD/Chest PA and Lateral IMPRESSION: Emphysema. No radiographic evidence of an acute abnormality. [facility]
[2025-07-17 05:54] LABS: Squamous Epithelial Cells - UA 0-5 SEEN /hpf (5-10)
[2025-07-17 05:56] LABS: AST(SGOT) 15 U/L (<=31); Alanine Aminotransfer ALT/SGPT 12 U/L (<=34); Albumin, Serum 4.0 g/dL (3.5-5.0); Alkaline Phosphatase 73 U/L (35-104); Anion Gap 9 (7-18); BUN 13 mg/dL (4-19); BUN/Creat Ratio 12.2 RATIO (10-20); Calcium,Total 9.1 mg/dL (7.6-11.0); Carbon Dioxide 25.9 mmol/L (20.0-29.0); Chloride 106 mmol/L (96-106); Estimated Creatinine Clearance 46.75 ml/min (50-250); Globulin 2.6 g/dL (2.2-4.2); Glucose 79 mg/dL (70-99); Potassium 3.5 mmol/L (3.5-5.1)
[2025-07-17 05:59] LABS: Barbiturate Urine NEGATIVE (< 200 ng/mL); Benzodiazepine Urine NEGATIVE (< 200 ng/mL); PCP Urine NEGATIVE (< 25 ng/mL); THC Urine NEGATIVE (< 50 ng/mL)
[2025-07-17 06:17] LABS: Troponin T High Sensitivity < 6 ng/L (<=14)
[2025-07-17 07:00] VITALS: BP 119/88; PULSE 79; RESP 18; TEMP 36.6; O2SAT 97
== END 2025-07-17 07:05 | disposition home or self-care (01) ==
PROVIDERS: Emergency Provider Student in an Organized Health Care Education/Training Program; PCP Internal Medicine; Visit Provider Student in an Organized Health Care Education/Training Program
DX: J44.1 Chronic obstructive pulmonary disease with (acute) exacerbation (principal); B20 Human immunodeficiency virus [HIV] disease; K59.00 Constipation, unspecified; R07.9 Chest pain, unspecified; F17.210 Nicotine dependence, cigarettes, uncomplicated
CPT/HCPCS: 71046; 80053; 80307; 81001; 84484; 85025; 87631; 93005; 94640; 99285; A4216